=== PATIENT | male | born 1940 | race Caucasian/White ===

== ENCOUNTER 2017-07-24 08:05 | Inpatient (IN) | payer MEDICARE, OTHER, SELFPAY ==
[2017-07-24] VITALS (19 sets, daily range): BP systolic 96–197; BP diastolic 48–131; PULSE 63–94; RESP 12–24; TEMP 36.3–37; O2SAT 94–100; BMI 53.1; BMI 51.9
--- NOTE | 2017-07-24 08:13 | RAD_ITS ---
STUDY: X-RAY CHEST REASON FOR EXAM: Male, 76 years old. Headaches and confusion. TECHNIQUE: Single AP portable view of the chest. COMPARISON: Comparison is made with prior study dated February 07, 2017. FINDINGS: EKG electrodes are seen. The lungs are clear and expanded. There is no demonstrated pleural abnormality. There is moderate cardiac enlargement. Normal mediastinum and denys. Normal visualized pulmonary arteries. There is atherosclerotic tortuosity of the aortic arch and descending thoracic aorta. Normal visualized thoracic spine. Normal visualized ribs, clavicles, and shoulders. Hiatal hernia. RAD/Chest 1 View (Portable) IMPRESSION: Cardiomegaly. Electronically Signed: Seymour Shelley MD at 8:49 EST Tel [phone], Service support ,
--- NOTE | 2017-07-24 08:13 | CT_ITS ---
STUDY: CT BRAIN WITHOUT CONTRAST REASON FOR EXAM: Male, 76 years old. Altered mental status. RADIATION DOSAGE (If Supplied By Facility): CTDIvol = ( 44.99 ) mGy, DLP = ( 812.98 ) mGycm TECHNIQUE: Transaxial CT imaging of the brain was performed without administration of intravenous contrast material. Individualized dose optimization techniques were used for this CT. COMPARISON: Comparison is made with prior study dated June 13, 2016. FINDINGS: Normal soft tissue structures. Normal calvarium. There is moderate cerebral atrophy with widening of the extra-axial spaces and ventricular dilatation. There are areas of decreased attenuation within the white matter tracts of the supratentorial brain, consistent with microvascular disease changes. Normal basal ganglia and thalami. Normal brainstem. There is mild cerebellar atrophy. Once again, there is a cavum septum lucidum. This is a normal anatomical variant. There is no intracranial hemorrhage. There are no findings of an acute ischemic infarction. Atherosclerotic calcification of the vertebral arteries and cavernous portions of the internal carotid arteries bilaterally. Normal visualized paranasal sinuses. CT/Brain/Head without Contrast IMPRESSION: Chronic involutional changes of the brain. Electronically Signed: Seymour Shelley MD at 9:37 EST Tel [phone], Service support ,
--- NOTE | 2017-07-24 08:14 | EKG12_ITS ---
Test Reason : HTN Blood Pressure : / mmHG Vent. Rate : 061 BPM Atrial Rate : 067 BPM P-R Int : 258 ms QRS Dur : 158 ms QT Int : 460 ms P-R-T Axes : 086 -65 034 degrees QTc Int : 463 ms Sinus rhythm with 1st degree A-V block with Premature atrial complexes Right bundle branch block Left anterior fascicular block Bifascicular block Abnormal ECG Confirmed by SUMMER RAZO, KARISSA ([id number]), material expeditor RONEL NAVAS ([id number]) on 07/27/2017 3:30:11 PM Referred By: MADHAVI Confirmed By:KARISSA WHEELER MD
[2017-07-24 08:43] LABS: Bacteria 0 SEEN /hpf (None Seen); Mucous, Urine 0 SEEN /hpf (<or=2+)
[2017-07-24 08:45] LABS: Color, Urine Yellow (Yellow); Glucose, Dipstick Normal (Normal); Ketone-Dipstick Negative (Negative); Leukocyte Esterase-Dipstick 500 /ul (Negative); Nitrite-Dipstick Negative (Negative); Occult Blood-Urine 150 /ul (Negative); Protein-Dipstick 100 mg/dl (Negative); Specific Gravity, Urine 1.015 (1.002-1.030); Urine Bilirubin Dipstick Negative (Negative); Urine Clarity Sl. Cloudy (Clear); Urine Urobilinogen Normal (Normal)
[2017-07-24 08:55] LABS: White Blood Cells >100 SEEN /hpf (0-5)
[2017-07-24 08:56] LABS: Red Blood Cells-Urine 0-5 SEEN /hpf (0-5); Squamous Epithelial Cells - UA 0-5 SEEN /hpf (0-5)
--- NOTE | 2017-07-24 08:58 | ED.DCSUM_ITS ---
- ER Visit Summary Date of Service: 07/24/17 Chief Complaint: Altered level of consciousness History of Present Illness: The patient is a 76 M who has had altered LOC today. Family noted that he was not acting right. They called EMS and the blood glucose was 64. They state that when he goes below 70 he acts like this. He does have a history of multiple urinary tract infections in the past. Patient also complains of a headache. He has not had a fever. He is on Coumadin, but family thinks it is for a blood clot but they are not sure. Family does not know much about his history and the patient is talking very soft and does not contribute much of the history Physical Examination: Vital signs reviewed. Obese male in no distress. HEENT exam unremarkable. Heart is slightly irregular but then goes back to regular rhythm without murmurs. Lungs have diminished sounds bilaterally. Difficult to auscultate due to body habitus. Abdomen soft nontender. Extremities reveal 1+ symmetric edema. He is alert and oriented times self. His neurologic exam is otherwise unremarkable Test Results: EKG is normal sinus rhythm with a right bundle branch block and left anterior fascicular block. Chest x-ray reveals cardiomegaly. CT scan of the head reveals chronic changes. White blood cell count normal, INR 1.6, urinalysis reveals greater than 100 white blood cells. Emergency Department Course and Treatment: Patient is delirious and drowsy. However, he will wake up to answer questions. No signs of stroke or any lateralizing weakness. He was given some orange juice with some Tylenol. He was feeling nauseous I gave him Zofran. His urinalysis does reveal UTI. Patient is delirious and I feel he needs to be admitted to the hospital. I will start him on IV Zosyn based on his last urine culture with Pseudomonas and MRSA. Treatment Plan: Admission for antibiotics and monitoring Disposition: Admit Impression: UTI, delirium This note was generated with [employer] dictation software. It may contain incorrect words, spelling, and punctuation that were not noted in review of the chart prior to signing ED Disposition - Plan for ED Patient: Chief Complaint: Hypoglycemia Referrals: Wili Nelson DO [Primary Care Provider] -
[2017-07-24] MEDS: Acetaminophen 500 MG Tablet 1000 MG PO (09:04)
[2017-07-24 09:56] LABS: Absolute Lymphocyte Count 0.71 X10^3/ul (0.83-4.51); Absolute Neutrophil Count 7.9 X10^3/uL (2.0-7.7); Basophil# 0.03 X10^3/uL; Basophil% 0.3 % (0-1); Eosinophil# 0.03 X10^3/uL; Eosinophils% 0.3 % (0-5); Hematocrit 45.1 % (40-54); Hemoglobin 15.3 g/dl (13.0-16.5); Lymphocyte # 0.71 X10^3/ul (4.0); Lymphocyte % 7.4 % (19-41); Mean Corp Hgb Conc 33.9 g/gl (32-36); Mean Corpuscular Hgb 29.3 pg (27.0-32.0); Mean Corpuscular Volume 86.2 fL (80-94); Mean Platelet Vol. 9.5 fl (6.2-12.0); Monocyte# 0.85 X10^3/uL; Monocyte% 8.9 % (0-10); Neutrophil # 7.94 X10^3/uL (2.7-7.7); Platelet Count 242 K/mm3 (150-450); RBC Distribution Width CV 13.7 % (11.6-14.6); RBC Distribution Width SD 42.1 fl (35.1-43.9); Red Blood Count 5.23 M/mm3 (4.6-6.2); White Blood Count 9.6 K/mm3 (4.4-11.0)
[2017-07-24 10:01] LABS: International Normalized Ratio 1.6; Prothrombin Time (Protime)PT. 18.4 SECONDS (11.7-14.9)
[2017-07-24 10:03] LABS: POSITIVE COUNT NO; POSITIVE DIFFERENTIAL NO; POSITIVE MORPHOLOGY NO
[2017-07-24] MEDS: Ondansetron 4 MG/2 ML Vial IV (10:10)
[2017-07-24 10:13] LABS: ALB/GLOB Ratio 0.6 RATIO (0.9-2.4); AST(SGOT) 18 U/L (15-37); Alanine Aminotransfer ALT/SGPT 26 U/L (16-61); Albumin, Serum 3.3 g/dL (3.2-5.0); Alkaline Phosphatase 100 U/L (45-117); Anion Gap 7 (5-15); BUN 25 mg/dL (7-18); BUN/Creat Ratio 16.2 RATIO (10-20); Chloride 105 mmol/L (98-107); Creatinine, Serum 1.54 mg/dL (0.70-1.30); EST Glomerular Filtration Rate 47 mL/min (>60); Est Glom Filt Rate - Afr Amer 57 mL/min (>60); Estimated Creatinine Clearance 44.79 ml/min; Globulin 5.2 g/dL (2.2-4.2); Glucose 74 mg/dL (70-110); Potassium 3.7 mmol/L (3.5-5.1); Protein, Total 8.5 g/dL (6.4-8.2); Sodium Level 141 mmol/L (136-145)
--- NOTE | 2017-07-24 11:22 | PCM.HP.STD ---
Problem List (1) History of kidney stones Status: Chronic (2) COPD (chronic obstructive pulmonary disease) Status: Chronic (3) Type II diabetes mellitus, uncontrolled Status: Chronic Qualifiers: Diabetes mellitus complication status: with hypoglycemia Diabetes mellitus complication detail: without coma Diabetes mellitus senior living insulin use: with senior living use Qualified Code(s): E11.649 - Type 2 diabetes mellitus with hypoglycemia without coma; Z79.4 - manager terminal (current) use of insulin (4) History of depression Status: Chronic (5) History of other venous thrombosis and embolism Status: Chronic (6) HLD (hyperlipidemia) Status: Chronic (7) HTN (hypertension) Status: Chronic (8) Morbid obesity Status: Chronic (9) NILO (obstructive sleep apnea) Status: Chronic (10) Chronic renal failure, stage 3 (moderate) Status: Chronic (11) Bifascicular bundle branch block Status: Chronic (12) Colon polyps Status: Chronic (13) Family history of colon cancer Status: Chronic (14) Abnormal electrocardiogram Status: Chronic (15) UTI (urinary tract infection) Status: Acute (16) Encephalopathy acute Status: Acute (17) Hypoglycemia Status: Acute History of Present Illness Date of Admission: 07/24/17 Chief Complaint: Altered mental status The patient is a 76 year old M multiple comorbidities including diabetes mellitus type 2, recurrent UTIs who was brought to the emergency department after patient was found by the with significant lethargy. Had started a day prior to coming in when felt patient was having intermittent episodes of confusion. The had a thump in patient's bedroom on the morning of his presentation. Upon arrival found patient to be significantly lethargic the EMS squad was called. EMS upon arrival found patient to be hypoglycemic with blood glucose in the 60s resuscitation was started in the field and patient transferred to the ED workup in the ED was consistent with acute cystitis. Patient was Zosyn and admitted to a regular nursing floor for further management Past Medical History Past Medical History (Chronic Problems): Chronic Problems History of kidney stones (Chronic) COPD (chronic obstructive pulmonary disease) (Chronic) Type II diabetes mellitus, uncontrolled (Chronic) History of depression (Chronic) History of other venous thrombosis and embolism (Chronic) HLD (hyperlipidemia) (Chronic) HTN (hypertension) (Chronic) Morbid obesity (Chronic) NILO (obstructive sleep apnea) (Chronic) Chronic renal failure, stage 3 (moderate) (Chronic) Bifascicular bundle branch block (Chronic) Colon polyps (Chronic) Family history of colon cancer (Chronic) Abnormal electrocardiogram (Chronic) Allergies MARGIE Inhibitors Allergy (Unknown, Verified 02/07/17 23:24) Unknown cefepime Allergy (Verified 02/07/17 23:24) Other WEAKNESS & FALLING ipodate [Ipodate] Allergy (Verified 02/07/17 23:24) Shortness of breath levofloxacin [Levofloxacin] Allergy (Verified 02/07/17 23:24) Anaphylaxis lisinopril Allergy (Verified 02/07/17 23:24) Shortness of breath Quinolones Allergy (Verified 02/07/17 23:24) Anaphylaxis Home Medications: Ambulatory Orders Medication Instructions Recorded Atorvastatin Calcium [Lipitor] 40 mg PO QHS 05/29/15 Citalopram [Celexa] 40 mg PO DAILY 05/29/15 Docusate Sodium [Colace] 200 mg PO QODAY PRN 05/29/15 Fluticasone 0.05% [Flonase Nasal 1 spray NASAL BID PRN 05/29/15 [place]] Tamsulosin HCl [Flomax] 0.4 mg PO DAILY 07/08/16 Metoprolol Succinate 100 mg PO DAILY 02/08/17 Insulin Detemir [Levemir FlexPen] 30 units SC BREAKFAST 07/24/17 Insulin U-500 [Humulin R U-500 100 unit SC BREAKFAST 07/24/17 ([facility])] Insulin U-500 [Humulin R U-500 100 unit SC LUNCH 07/24/17 ([facility])] Insulin U-500 [Humulin R U-500 150 unit SC DINNER 07/24/17 ([facility])] Losartan Potassium [Cozaar] 100 mg PO DAILY 07/24/17 Warfarin Sodium [Coumadin] 10 mg PO DAILY 07/24/17 Warfarin [Coumadin ([facility])] 5 mg PO DAILY 07/24/17 Surgical History: - - Circumcision, excision of kidney stone Psychiatric History: Depression Smoking Status: Never smoker - *Family History Maternal History Items: Cancer - Patient's mother of cancer but he is not sure what kind of cancer. Paternal History Items: Cancer - Father of colon cancer Offspring History Items: - - He has a son who is morbidly obese and suffers from breathing problems and heart problems. Review of Systems Unable to obtain accurate/complete ROS d/t: Being lethargic VTE Information - Inpt Only VTE Present on Admission: No VTE Mechan Device Prophylaxis: Knee High MARC Hose VTE Pharm Prophylaxis ordered?: Yes Patient Problems: Active and Suspected Problems UTI (urinary tract infection) (Acute) Encephalopathy acute (Acute) Hypoglycemia (Acute) Objective: GENERAL: Lethargic HEENT: Clear conjunctiva, NECK; supple, normal thyroid, CHEST: Diminished to auscultation bilaterally, HEART: Regular S1 S2, no audible murmurs ABDOMEN: soft, non-tender, normoactive bowel sounds, RECTAL: deferred EXTREMITIES: No edema, no clubbing, no cyanosis. 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 SKIN: No RASH - Physical Exam Vital Signs Temp Pulse Resp BP Pulse Ox 97.5 F L 75 17 197/89 H 99 07/24/17 08:06 07/24/17 10:35 07/24/17 10:35 07/24/17 10:35 07/24/17 10:35 Assessment/Plan Active and Suspected Problems UTI (urinary tract infection) (Acute) Encephalopathy acute (Acute) Hypoglycemia (Acute) 76-year-old gentleman with multiple comorbidities with recurrent UTI presenting with altered mental status. Patient was found to be hypoglycemic on admission and also had a UTI 1. Acute infectious encephalopathy secondary to UTI previous cultures have grown Pseudomonas patient was placed on Zosyn repeat culture sent consult placed to infectious disease 2. 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 Patient is on long-acting insulin as well as scheduled pre-meal short acting insulin also placed on Accu-Cheks before meals and at bedtime with sliding scale insulin 2. Diabetic nephropathy with chronic kidney disease stage III patient kidney function at baseline 4. Hypertension-blood pressure controlled, home medications continued with dose adjustment as needed 5. Obstructive sleep apnea 7. Chronic hypoxic respiratory failure multifactorial (COPD, obesity hypoventilation syndrome and NILO 7. COPD currently stable 8. History of PE patient was previously on Coumadin 9. History of kidney stones 10. Depression 11. Morbid obesity with BMI of 53.2 12. DVT prophylaxis Lovenox 40 mg SC every 12 (BMI greater than 40) Code Visit Inpatient E&M: 32757 In Hosp L3
--- NOTE | 2017-07-24 11:33 | HP.PCM_ITS ---
Problem List (1) History of kidney stones Status: Chronic (2) COPD (chronic obstructive pulmonary disease) Status: Chronic (3) Type II diabetes mellitus, uncontrolled Status: Chronic Qualifiers: Diabetes mellitus complication status: with hypoglycemia Diabetes mellitus complication detail: without coma Diabetes mellitus shelter insulin use: with shelter use Qualified Code(s): E11.649 - Type 2 diabetes mellitus with hypoglycemia without coma; Z79.4 - intermodal customer service (current) use of insulin (4) History of depression Status: Chronic (5) History of other venous thrombosis and embolism Status: Chronic (6) HLD (hyperlipidemia) Status: Chronic (7) HTN (hypertension) Status: Chronic (8) Morbid obesity Status: Chronic (9) NILO (obstructive sleep apnea) Status: Chronic (10) Chronic renal failure, stage 3 (moderate) Status: Chronic (11) Bifascicular bundle branch block Status: Chronic (12) Colon polyps Status: Chronic (13) Family history of colon cancer Status: Chronic (14) Abnormal electrocardiogram Status: Chronic (15) UTI (urinary tract infection) Status: Acute (16) Encephalopathy acute Status: Acute (17) Hypoglycemia Status: Acute History of Present Illness Date of Admission: 07/24/17 Chief Complaint: Altered mental status The patient is a 76 year old M multiple comorbidities including diabetes mellitus type 2, recurrent UTIs who was brought to the emergency department after patient was found by the with significant lethargy. Had started a day prior to coming in when felt patient was having intermittent episodes of confusion. The had a thump in patient's bedroom on the morning of his presentation. Upon arrival found patient to be significantly lethargic the EMS squad was called. EMS upon arrival found patient to be hypoglycemic with blood glucose in the 60s resuscitation was started in the field and patient transferred to the ED workup in the ED was consistent with acute cystitis. Patient was Zosyn and admitted to a regular nursing floor for further management Past Medical History Past Medical History (Chronic Problems): Chronic Problems History of kidney stones (Chronic) COPD (chronic obstructive pulmonary disease) (Chronic) Type II diabetes mellitus, uncontrolled (Chronic) History of depression (Chronic) History of other venous thrombosis and embolism (Chronic) HLD (hyperlipidemia) (Chronic) HTN (hypertension) (Chronic) Morbid obesity (Chronic) NILO (obstructive sleep apnea) (Chronic) Chronic renal failure, stage 3 (moderate) (Chronic) Bifascicular bundle branch block (Chronic) Colon polyps (Chronic) Family history of colon cancer (Chronic) Abnormal electrocardiogram (Chronic) Allergies MARGIE Inhibitors Allergy (Unknown, Verified 02/07/17 23:24) Unknown cefepime Allergy (Verified 02/07/17 23:24) Other WEAKNESS & FALLING ipodate [Ipodate] Allergy (Verified 02/07/17 23:24) Shortness of breath levofloxacin [Levofloxacin] Allergy (Verified 02/07/17 23:24) Anaphylaxis lisinopril Allergy (Verified 02/07/17 23:24) Shortness of breath Quinolones Allergy (Verified 02/07/17 23:24) Anaphylaxis Home Medications: Ambulatory Orders Medication Instructions Recorded Atorvastatin Calcium [Lipitor] 40 mg PO QHS 05/29/15 Citalopram [Celexa] 40 mg PO DAILY 05/29/15 Docusate Sodium [Colace] 200 mg PO QODAY PRN 05/29/15 Fluticasone 0.05% [Flonase Nasal 1 spray NASAL BID PRN 05/29/15 [place]] Tamsulosin HCl [Flomax] 0.4 mg PO DAILY 07/08/16 Metoprolol Succinate 100 mg PO DAILY 02/08/17 Insulin Detemir [Levemir FlexPen] 30 units SC BREAKFAST 07/24/17 Insulin U-500 [Humulin R U-500 100 unit SC BREAKFAST 07/24/17 ([facility])] Insulin U-500 [Humulin R U-500 100 unit SC LUNCH 07/24/17 ([facility])] Insulin U-500 [Humulin R U-500 150 unit SC DINNER 07/24/17 ([facility])] Losartan Potassium [Cozaar] 100 mg PO DAILY 07/24/17 Warfarin Sodium [Coumadin] 10 mg PO DAILY 07/24/17 Warfarin [Coumadin ([facility])] 5 mg PO DAILY 07/24/17 Surgical History: - - Circumcision, excision of kidney stone Psychiatric History: Depression Smoking Status: Never smoker - *Family History Maternal History Items: Cancer - Patient's mother of cancer but he is not sure what kind of cancer. Paternal History Items: Cancer - Father of colon cancer Offspring History Items: - - He has a son who is morbidly obese and suffers from breathing problems and heart problems. Review of Systems Unable to obtain accurate/complete ROS d/t: Being lethargic VTE Information - Inpt Only VTE Present on Admission: No VTE Mechan Device Prophylaxis: Knee High MARC Hose VTE Pharm Prophylaxis ordered?: Yes Patient Problems: Active and Suspected Problems UTI (urinary tract infection) (Acute) Encephalopathy acute (Acute) Hypoglycemia (Acute) Objective: GENERAL: Lethargic HEENT: Clear conjunctiva, NECK; supple, normal thyroid, CHEST: Diminished to auscultation bilaterally, HEART: Regular S1 S2, no audible murmurs ABDOMEN: soft, non-tender, normoactive bowel sounds, RECTAL: deferred EXTREMITIES: No edema, no clubbing, no cyanosis. 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 SKIN: No RASH - Physical Exam Vital Signs Temp Pulse Resp BP Pulse Ox 97.5 F L 75 17 197/89 H 99 07/24/17 08:06 07/24/17 10:35 07/24/17 10:35 07/24/17 10:35 07/24/17 10:35 Assessment/Plan Active and Suspected Problems UTI (urinary tract infection) (Acute) Encephalopathy acute (Acute) Hypoglycemia (Acute) 76-year-old gentleman with multiple comorbidities with recurrent UTI presenting with altered mental status. Patient was found to be hypoglycemic on admission and also had a UTI 1. Acute infectious encephalopathy secondary to UTI previous cultures have grown Pseudomonas patient was placed on Zosyn repeat culture sent consult placed to infectious disease 2. 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 Patient is on long-acting insulin as well as scheduled pre-meal short acting insulin also placed on Accu-Cheks before meals and at bedtime with sliding scale insulin 2. Diabetic nephropathy with chronic kidney disease stage III patient kidney function at baseline 4. Hypertension-blood pressure controlled, home medications continued with dose adjustment as needed 5. Obstructive sleep apnea 7. Chronic hypoxic respiratory failure multifactorial (COPD, obesity hypoventilation syndrome and NILO 7. COPD currently stable 8. History of PE patient was previously on Coumadin 9. History of kidney stones 10. Depression 11. Morbid obesity with BMI of 53.2 12. DVT prophylaxis Lovenox 40 mg SC every 12 (BMI greater than 40) Code Visit Inpatient E&M: 80076 In Hosp L3
[2017-07-24] MEDS: 0.9% Normal Saline 1,000 ML 75 ML IV (12:49)
[2017-07-24 13:06] LABS: Bedside Glucose 90 mg/dL (70-110)
--- NOTE | 2017-07-24 15:30 | NURSING ---
primary RN and supervisor blood notified of orders for transfer to icu. awaiting bed.
--- NOTE | 2017-07-24 16:35 | PCM.HP.ID ---
Problem List (1) UTI (urinary tract infection) Status: Acute Reason for Consult: uti Consulted by: Dr. Clemens History of Present Illness: The patient is a 76 year old M who presented with one day history of intermittent confusion, and fall with unresponsiveness today. Pt unable to provide history. Has h/o recurrent uti, including pseudomonas. UA in ED showed heavy pyuria, cxs sent, started on zosyn, admitted to the floor. No fever here. ROS unobtainable due to mental status. - Medical History Past Medical History (Chronic Problems): Chronic Problems History of kidney stones (Chronic) COPD (chronic obstructive pulmonary disease) (Chronic) Type II diabetes mellitus, uncontrolled (Chronic) History of depression (Chronic) History of other venous thrombosis and embolism (Chronic) HLD (hyperlipidemia) (Chronic) HTN (hypertension) (Chronic) Morbid obesity (Chronic) NILO (obstructive sleep apnea) (Chronic) Chronic renal failure, stage 3 (moderate) (Chronic) Bifascicular bundle branch block (Chronic) Colon polyps (Chronic) Family history of colon cancer (Chronic) Abnormal electrocardiogram (Chronic) Allergies/Adverse Reactions: Allergies MARGIE Inhibitors Allergy (Unknown, Verified 02/07/17 23:24) Unknown cefepime Allergy (Verified 02/07/17 23:24) Other WEAKNESS & FALLING ipodate [Ipodate] Allergy (Verified 02/07/17 23:24) Shortness of breath levofloxacin [Levofloxacin] Allergy (Verified 02/07/17 23:24) Anaphylaxis lisinopril Allergy (Verified 02/07/17 23:24) Shortness of breath ofloxacin Allergy (Verified 07/24/17 12:12) Unknown Quinolones Allergy (Verified 02/07/17 23:24) Anaphylaxis Home Medications: Ambulatory Orders Medication Instructions Recorded Atorvastatin Calcium [Lipitor] 40 mg PO QHS 05/29/15 Citalopram [Celexa] 40 mg PO DAILY 05/29/15 Docusate Sodium [Colace] 200 mg PO QODAY PRN 05/29/15 Fluticasone 0.05% [Flonase Nasal 1 spray NASAL BID PRN 05/29/15 [place]] Tamsulosin HCl [Flomax] 0.4 mg PO DAILY 07/08/16 Metoprolol Succinate 100 mg PO DAILY 02/08/17 Insulin Detemir [Levemir FlexPen] 30 units SC BREAKFAST 07/24/17 Insulin U-500 [Humulin R U-500 100 unit SC BREAKFAST 07/24/17 ([facility])] Insulin U-500 [Humulin R U-500 100 unit SC LUNCH 07/24/17 ([facility])] Insulin U-500 [Humulin R U-500 150 unit SC DINNER 07/24/17 ([facility])] Losartan Potassium [Cozaar] 100 mg PO DAILY 07/24/17 Warfarin Sodium [Coumadin] 10 mg PO DAILY 07/24/17 Warfarin [Coumadin ([facility])] 5 mg PO DAILY 07/24/17 Vital Signs Temp Pulse Resp BP Pulse Ox 97.4 F L 64 22 H 158/76 H 95 07/24/17 15:56 07/24/17 15:56 07/24/17 15:56 07/24/17 15:56 07/24/17 15:56 Oxygen Flow Rate 1 Oxygen Delivery Method Room Air Weight: 173.7 kg Body Mass Index (BMI) 51.9 Microbiology Past 72 Hours 07/24/17 12:45 Respiratory Panel (PCR) - Final Mucosa - Nasopharyngeal Laboratory Tests Past 24 Hrs 07/24/17 16:04 Lactic Acid Pending - Other Studies Radiology: [] reviewed Other Studies: [] Route of nutrition/ use of supplements: [] Nutritional Intake: [] IV Site: [] Lane Catheter: [] - Physical Exam General: Lethargic - opens eyes briefly to physical stim HEENT: Atraumatic, PERRLA Neck: Supple, No Nodes Lungs: Clear to auscultation, Normal air movement Cardiovascular: Regular rate, Regular Rhythm Abdomen: Bowel Sounds Present, Soft, Non Tender, Non-Distended, Obese Extremities: Edema - mild BLE Skin: No rashes IV Site: Peripheral, without redness Musculoskeletal: No Tenderness to Palpation of Joints or Extremities - Assessment/Plan Antibiotics: [] Assessment/Plan: [] Active and Suspected Problems UTI (urinary tract infection) (Acute) Encephalopathy acute (Acute) Hypoglycemia (Acute) Heavy pyuria with h.o UTI in past. Agree with zosyn to cover past growth of pseudomonas. Also with yeast and MRSA from urine in the past. If he does not show improvement or spikes fever, would add vanc. Thank you, will follow.
--- NOTE | 2017-07-24 16:37 | NURSING ---
notifed that pt moved to icu
--- NOTE | 2017-07-24 16:40 | CON.PCM_ITS ---
Problem List (1) UTI (urinary tract infection) Status: Acute Reason for Consult: uti Consulted by: Dr. Clemens History of Present Illness: The patient is a 76 year old M who presented with one day history of intermittent confusion, and fall with unresponsiveness today. Pt unable to provide history. Has h/o recurrent uti, including pseudomonas. UA in ED showed heavy pyuria, cxs sent, started on zosyn, admitted to the floor. No fever here. ROS unobtainable due to mental status. - Medical History Past Medical History (Chronic Problems): Chronic Problems History of kidney stones (Chronic) COPD (chronic obstructive pulmonary disease) (Chronic) Type II diabetes mellitus, uncontrolled (Chronic) History of depression (Chronic) History of other venous thrombosis and embolism (Chronic) HLD (hyperlipidemia) (Chronic) HTN (hypertension) (Chronic) Morbid obesity (Chronic) NILO (obstructive sleep apnea) (Chronic) Chronic renal failure, stage 3 (moderate) (Chronic) Bifascicular bundle branch block (Chronic) Colon polyps (Chronic) Family history of colon cancer (Chronic) Abnormal electrocardiogram (Chronic) Allergies/Adverse Reactions: Allergies MARGIE Inhibitors Allergy (Unknown, Verified 02/07/17 23:24) Unknown cefepime Allergy (Verified 02/07/17 23:24) Other WEAKNESS & FALLING ipodate [Ipodate] Allergy (Verified 02/07/17 23:24) Shortness of breath levofloxacin [Levofloxacin] Allergy (Verified 02/07/17 23:24) Anaphylaxis lisinopril Allergy (Verified 02/07/17 23:24) Shortness of breath ofloxacin Allergy (Verified 07/24/17 12:12) Unknown Quinolones Allergy (Verified 02/07/17 23:24) Anaphylaxis Home Medications: Ambulatory Orders Medication Instructions Recorded Atorvastatin Calcium [Lipitor] 40 mg PO QHS 05/29/15 Citalopram [Celexa] 40 mg PO DAILY 05/29/15 Docusate Sodium [Colace] 200 mg PO QODAY PRN 05/29/15 Fluticasone 0.05% [Flonase Nasal 1 spray NASAL BID PRN 05/29/15 [place]] Tamsulosin HCl [Flomax] 0.4 mg PO DAILY 07/08/16 Metoprolol Succinate 100 mg PO DAILY 02/08/17 Insulin Detemir [Levemir FlexPen] 30 units SC BREAKFAST 07/24/17 Insulin U-500 [Humulin R U-500 100 unit SC BREAKFAST 07/24/17 ([facility])] Insulin U-500 [Humulin R U-500 100 unit SC LUNCH 07/24/17 ([facility])] Insulin U-500 [Humulin R U-500 150 unit SC DINNER 07/24/17 ([facility])] Losartan Potassium [Cozaar] 100 mg PO DAILY 07/24/17 Warfarin Sodium [Coumadin] 10 mg PO DAILY 07/24/17 Warfarin [Coumadin ([facility])] 5 mg PO DAILY 07/24/17 Vital Signs Temp Pulse Resp BP Pulse Ox 97.4 F L 64 22 H 158/76 H 95 07/24/17 15:56 07/24/17 15:56 07/24/17 15:56 07/24/17 15:56 07/24/17 15:56 Oxygen Flow Rate 1 Oxygen Delivery Method Room Air Weight: 173.7 kg Body Mass Index (BMI) 51.9 Microbiology Past 72 Hours 07/24/17 12:45 Respiratory Panel (PCR) - Final Mucosa - Nasopharyngeal Laboratory Tests Past 24 Hrs 07/24/17 16:04 Lactic Acid Pending - Other Studies Radiology: [] reviewed Other Studies: [] Route of nutrition/ use of supplements: [] Nutritional Intake: [] IV Site: [] Lane Catheter: [] - Physical Exam General: Lethargic - opens eyes briefly to physical stim HEENT: Atraumatic, PERRLA Neck: Supple, No Nodes Lungs: Clear to auscultation, Normal air movement Cardiovascular: Regular rate, Regular Rhythm Abdomen: Bowel Sounds Present, Soft, Non Tender, Non-Distended, Obese Extremities: Edema - mild BLE Skin: No rashes IV Site: Peripheral, without redness Musculoskeletal: No Tenderness to Palpation of Joints or Extremities - Assessment/Plan Antibiotics: [] Assessment/Plan: [] Active and Suspected Problems UTI (urinary tract infection) (Acute) Encephalopathy acute (Acute) Hypoglycemia (Acute) Heavy pyuria with h.o UTI in past. Agree with zosyn to cover past growth of pseudomonas. Also with yeast and MRSA from urine in the past. If he does not show improvement or spikes fever, would add vanc. Thank you, will follow.
[2017-07-24 16:44] LABS: Lactic Acid 1.3 mmol/L (0.4-2.0)
[2017-07-24 16:56] LABS: Allen Test POS; Base Excess 4 mmol/L (-2 to +2); Bicarbonate 29.3 mmol/L (22-26); Blood Gas Specimen Type ART; EPAP 19; FI02 25; IPAP 23; PO2 85 mmHG (75-100); RR 14; SITE R Brachial; SO2 96 % (95-99); Time Given 1655; Total Carbon Dioxide 31 mmol/L; pCO2 50.4 mmHg (35-45); pH 7.37 (7.35-7.45)
[2017-07-24 18:39] LABS: M R Staph aureus DNA By PCR Negative (Negative); Probe Check PASS; Specimen Processing Control PASS
[2017-07-24 19:06] LABS: Bedside Glucose 144 mg/dL (70-110)
[2017-07-24] MEDS: Piperacil/Tazobactam 3.375 GM/50 ML ML IV (21:08)
[2017-07-24] MEDS: Enoxaparin 40 MG/0.4 ML Syringe SC (21:10)
[2017-07-24 21:16] LABS: Bedside Glucose 169 mg/dL (70-110)
[2017-07-25] VITALS (30 sets, daily range): BP systolic 94–164; BP diastolic 50–104; PULSE 52–79; RESP 12–25; TEMP 36.4–37.2; O2SAT 91–100
[2017-07-25 01:41] LABS: Bedside Glucose 150 mg/dL (70-110)
[2017-07-25] MEDS: 0.9% Normal Saline 1,000 ML 75 ML IV (01:41)
[2017-07-25 04:39] LABS: Hematocrit 42.4 % (40-54); Hemoglobin 13.6 g/dl (13.0-16.5); Mean Corp Hgb Conc 32.1 g/gl (32-36); Mean Corpuscular Hgb 28.4 pg (27.0-32.0); Mean Corpuscular Volume 88.5 fL (80-94); Mean Platelet Vol. 9.3 fl (6.2-12.0); Platelet Count 210 K/mm3 (150-450); RBC Distribution Width CV 14.1 % (11.6-14.6); RBC Distribution Width SD 45.2 fl (35.1-43.9); Red Blood Count 4.79 M/mm3 (4.6-6.2); White Blood Count 7.5 K/mm3 (4.4-11.0)
[2017-07-25 04:43] LABS: Scan Indicated on CBC? Y/N NO
[2017-07-25 05:02] LABS: Anion Gap 9 (5-15); BUN 25 mg/dL (7-18); BUN/Creat Ratio 15.2 RATIO (10-20); Calcium,Total 8.1 mg/dL (8.5-10.1); Chloride 103 mmol/L (98-107); Creatinine, Serum 1.64 mg/dL (0.70-1.30); EST Glomerular Filtration Rate 44 mL/min (>60); Est Glom Filt Rate - Afr Amer 53 mL/min (>60); Estimated Creatinine Clearance 42.06 ml/min; Glucose 218 mg/dL (74-106); Magnesium 2.2 mg/dL (1.6-2.6); Potassium 4.1 mmol/L (3.5-5.1); Sodium Level 140 mmol/L (136-145)
--- NOTE | 2017-07-25 05:05 | PCM.CON.CC ---
Reason for Consult Date of Consultation: 07/25/17 Reason for Consultation: ICU management History of Present Illness: The patient is a 76-year-old male, with a history as outlined below, who presented to the emergency department on July 24 in an encephalopathic state. Per EMS documentation, the patient was reportedly hypoglycemic with a serum blood glucose of 64. The patient reportedly has a history of recurrent urinary tract infections. Only limited history could be obtained from the patient, as he remains quite lethargic. There are no family members available at the bedside. Prior urine cultures have grown out both MRSA and Pseudomonas in the past. Surface echocardiogram from January 2017 revealed mild concentric LVH with an ejection fraction of 60%. Pulmonary artery systolic pressure was estimated to be 54 mmHg. On presentation to the emergency department, the patient was noted to be afebrile and hemodynamically stable. He was initially saturating 96% on room air. Laboratory evaluation revealed no evidence of a leukocytosis. INR was noted to be 1.6. Chemistry profile was notable for chronic kidney disease with a creatinine of 1.54. Troponin was negative. Urinalysis was concerning for that of an infection. Head CT revealed chronic involutional changes. Lungs were grossly clear on plain film chest x-ray. The patient was subsequently started on antibiotics and was seen in consultation by infectious diseases. The patient was admitted to the general medical floor for treatment. However, he reportedly became tachypneic on the afternoon of July 24, which prompted his transfer to the intensive care unit. Upon review of the vitals that are documented, the patient's respiratory rate was only in the low 20s on 2 separate occasions. There is no additional documentation by the nursing staff. Arterial blood gas revealed a compensated respiratory acidosis. The patient was placed on BiPAP. Past Medical History Past Medical History (Chronic Problems): Chronic Problems History of kidney stones (Chronic) COPD (chronic obstructive pulmonary disease) (Chronic) Type II diabetes mellitus, uncontrolled (Chronic) History of depression (Chronic) History of other venous thrombosis and embolism (Chronic) HLD (hyperlipidemia) (Chronic) HTN (hypertension) (Chronic) Morbid obesity (Chronic) NILO (obstructive sleep apnea) (Chronic) Chronic renal failure, stage 3 (moderate) (Chronic) Bifascicular bundle branch block (Chronic) Colon polyps (Chronic) Family history of colon cancer (Chronic) Abnormal electrocardiogram (Chronic) Allergies MARGIE Inhibitors Allergy (Unknown, Verified 02/07/17 23:24) Unknown cefepime Allergy (Verified 02/07/17 23:24) Other WEAKNESS & FALLING ipodate [Ipodate] Allergy (Verified 02/07/17 23:24) Shortness of breath levofloxacin [Levofloxacin] Allergy (Verified 02/07/17 23:24) Anaphylaxis lisinopril Allergy (Verified 02/07/17 23:24) Shortness of breath ofloxacin Allergy (Verified 07/24/17 12:12) Unknown Quinolones Allergy (Verified 02/07/17 23:24) Anaphylaxis Home Medications: Ambulatory Orders Medication Instructions Recorded Atorvastatin Calcium [Lipitor] 40 mg PO QHS 05/29/15 Citalopram [Celexa] 40 mg PO DAILY 05/29/15 Docusate Sodium [Colace] 200 mg PO QODAY PRN 05/29/15 Fluticasone 0.05% [Flonase Nasal 1 spray NASAL BID PRN 05/29/15 [place]] Tamsulosin HCl [Flomax] 0.4 mg PO DAILY 07/08/16 Metoprolol Succinate 100 mg PO DAILY 02/08/17 Insulin Detemir [Levemir FlexPen] 30 units SC BREAKFAST 07/24/17 Insulin U-500 [Humulin R U-500 100 unit SC BREAKFAST 07/24/17 ([facility])] Insulin U-500 [Humulin R U-500 100 unit SC LUNCH 07/24/17 ([facility])] Insulin U-500 [Humulin R U-500 150 unit SC DINNER 07/24/17 ([facility])] Losartan Potassium [Cozaar] 100 mg PO DAILY 07/24/17 Warfarin Sodium [Coumadin] 10 mg PO DAILY 07/24/17 Warfarin [Coumadin ([facility])] 5 mg PO DAILY 07/24/17 Surgical History: - - Circumcision, excision of kidney stone Psychiatric History: Depression Smoking Status: Never smoker - *Family History Maternal History Items: Cancer - Patient's mother of cancer but he is not sure what kind of cancer. Paternal History Items: Cancer - Father of colon cancer Offspring History Items: - - He has a son who is morbidly obese and suffers from breathing problems and heart problems. Review of Systems Unable to obtain accurate/complete ROS d/t: Due to patient lethargy Patient Problems: Active and Suspected Problems UTI (urinary tract infection) (Acute) Encephalopathy acute (Acute) Hypoglycemia (Acute) Objective: The patient's most recent lab work, culture data and imaging studies have all been personally reviewed. - Physical Exam General: - - Super morbidly obese. Resting supine in bed with BiPAP in place. Currently being maintained on 23/19 cm of water with an FiO2 of 25% HEENT: Atraumatic, PERRLA, Normocephalic Oral: No Gingival or Mucosal Lesions/ Ulcerations, Dry Mucosa Neck: Supple, No Nodes, Trachea Midline, - - Exceedingly large neck circumference with redundant soft tissue Lungs: No rhonchi, No wheeze, No rales, Diminished, - - Poor inspiratory effort Cardiovascular: Regular rate, Regular Rhythm, Normal S1, Normal S2, No murmurs, No rub noted, No Gallop Abdomen: Bowel Sounds Present, Soft, Non Tender, Obese Extremities: No clubbing, No cyanosis, Edema Skin: - - Lower extremity venous stasis dermatitis Musculoskeletal: No Muscle Wasting Lymphatic: No Cervical, Supraclavicular, or Inguinal Adenopathy Neurological: - - Lethargic but will arouse to verbal stimulation and attempt to answer questions. Vital Signs Temp Pulse Resp BP Pulse Ox 97.9 F 63 18 132/68 H 100 07/25/17 04:20 07/25/17 04:20 07/25/17 04:20 07/25/17 04:20 07/25/17 04:20 Oxygen Flow Rate 25 Oxygen Delivery Method Bi-pap Weight: 382 lb 15.087 oz Body Mass Index (BMI) 51.9 Intake and Output for Last 24 Hours 07/23/17 07/24/17 07/25/17 23:59 23:59 23:59 Intake Total 523 / 523 Output Total 900 / 900 Balance -377 / -377 Microbiology Past 72 Hours 07/24/17 12:45 Respiratory Panel (PCR) - Final Mucosa - Nasopharyngeal Laboratory Tests Past 24 Hrs 07/24/17 07/24/17 07/24/17 16:04 16:50 16:52 WBC RBC Hgb Hct MCV MCH MCHC RDW RDW Differential Plt Count MPV Specimen Type ART Sample Site R Brachial pH 7.37 Bicarbonate Actual 29.3 H POC Total CO2 31 Base Excess 4 H O2 Saturation 96 O2 % 25 ABG pCO2 50.4 H ABG pO2 85 Randy Test POS Respiration Rate 14 O2 Delivery Device Bi / C PAP EPAP 19 IPAP 23 Blood Gas Notified Whom [facility] Blood Gas Notified Time 1655 Sodium Potassium Chloride Carbon Dioxide Anion Gap BUN Creatinine Estim Creat Clear Calc Est GFR (MDRD) Af Amer Est GFR (MDRD) Non-Af BUN/Creatinine Ratio Glucose Lactic Acid 1.3 Calcium Magnesium MRSA (PCR) Negative 07/25/17 07/25/17 04:20 04:20 WBC 7.5 RBC 4.79 Hgb 13.6 Hct 42.4 MCV 88.5 MCH 28.4 MCHC 32.1 RDW 14.1 RDW Differential 45.2 H Plt Count 210 MPV 9.3 Specimen Type Sample Site pH Bicarbonate Actual POC Total CO2 Base Excess O2 Saturation O2 % ABG pCO2 ABG pO2 Randy Test Respiration Rate O2 Delivery Device EPAP IPAP Blood Gas Notified Whom Blood Gas Notified Time Sodium 140 Potassium 4.1 Chloride 103 Carbon Dioxide 28.0 Anion Gap 9 BUN 25 H Creatinine 1.64 H Estim Creat Clear Calc 42.06 Est GFR (MDRD) Af Amer 53 L Est GFR (MDRD) Non-Af 44 L BUN/Creatinine Ratio 15.2 Glucose 218 H Lactic Acid Calcium 8.1 L Magnesium 2.2 MRSA (PCR) POC Glucose 07/25/17 07/24/17 07/24/17 01:38 21:13 19:02 POC Glucose 150 H 169 H 144 H 07/24/17 11:43 POC Glucose 90 Clinical Impression(s) from Imaging Studies Brain CT 07/24/17 08:13 IMPRESSION: Chronic involutional changes of the brain. Electronically Signed: Seymour Shelley MD at 9:37 EST Tel [phone], Service support , Chest X-Ray 07/24/17 08:13 IMPRESSION: Cardiomegaly. Electronically Signed: Seymour Shelley MD at 8:49 EST Tel [phone], Service support , Assessment/Plan Active and Suspected Problems UTI (urinary tract infection) (Acute) Encephalopathy acute (Acute) Hypoglycemia (Acute) RECOMMENDATIONS: 1. Continue BiPAP with naps and nightly 2. Wean supplemental oxygen to maintain saturations 88-92%. 3. Encourage incentive spirometer use and mobilize patient as tolerated 4. Physical therapy to evaluate patient. Out of bed to chair today. 5. Continue antibiotics as ordered IMPRESSIONS: 1. Metabolic/infectious encephalopathy Improved with use of BiPAP therapy. Avoid sedating medications. Continue treatment for underlying cystitis. 2. Compensated respiratory acidosis/concern for sleep disordered breathing Recommend continuing the use of noninvasive positive pressure ventilation with naps and nightly. Strongly recommend outpatient polysomnogram and follow-up in the pulmonary medicine clinic. Encourage incentive spirometer use and mobilize patient as tolerated. 3. Recurrent cystitis Continue antibiotics, pending finalized culture results. 4. Super morbid obesity/chronic kidney disease/diabetes mellitus/NILO Complicates care, management, recovery and prognosis. Okay to continue baseline outpatient medications. Physical therapy to evaluate patient today. Out of bed to chair. This note was generated with [employer] dictation software. It may contain incorrect words, spelling, and punctuation that were not noted in checking the note before signing. Code Visit Inpatient E&M: 81351 Init Hosp L3
[2017-07-25] MEDS: Piperacil/Tazobactam 3.375 GM/50 ML ML IV ×3 (05:09→21:45)
[2017-07-25 06:45] LABS: Bedside Glucose 230 mg/dL (70-110)
[2017-07-25 08:02] LABS: Amphetamine Urine VISTA NEGATIVE (<1000 ng/mL); Barbiturate Urine VISTA NEGATIVE (< 200 ng/mL); Benzodiazepine Urine VISTA NEGATIVE (< 200 ng/mL); Cocaine Urine VISTA NEGATIVE (< 300 ng/mL); Ecstacy Urine VISTA NEGATIVE (< 500 ng/mL); Methadone Urine VISTA NEGATIVE (< 300 ng/mL); PCP Urine VISTA NEGATIVE (< 25 ng/mL); THC Urine VISTA NEGATIVE (< 50 ng/mL); Vista UDS pH Range 5
--- NOTE | 2017-07-25 08:06 | PCM.PN.HOSP ---
Patient Problems: Active and Suspected Problems UTI (urinary tract infection) (Acute) Encephalopathy acute (Acute) Hypoglycemia (Acute) Subjective: 76-year-old gentleman with multiple comorbidities with recurrent UTI presenting with altered mental status. Patient was found to be hypoglycemic on admission and also had a UTI and was transferred to the intensive care unit following respiratory distress and significant lethargy was placed on noninvasive ventilationBiPAP Seen this a.m. patient appears much more awake and communicative urine culture still pending Objective: GENERAL: Much more awake and communicative HEENT: Clear conjunctiva, NECK; supple, normal thyroid, CHEST: Diminished to auscultation bilaterally, HEART: Regular S1 S2, no audible murmurs ABDOMEN: soft, non-tender, normoactive bowel sounds, RECTAL: deferred EXTREMITIES: No edema, no clubbing, no cyanosis. [employer]: No lateralizing sign SKIN: Chronic stasis dermatitis involving both lower extremities Vitals/I&O's: Vital Signs Temp Pulse Resp BP Pulse Ox 97.5 F L 65 13 126/60 H 100 07/25/17 08:00 07/25/17 08:00 07/25/17 08:00 07/25/17 08:00 07/25/17 08:00 Oxygen Flow Rate 2 Oxygen Delivery Method Nasal Cannula Weight: 172.2 kg Body Mass Index (BMI) 51.9 Intake and Output for Last 24 Hours 07/23/17 07/24/17 07/25/17 23:59 23:59 23:59 Intake Total 523 / 523 452 / 452 Output Total 900 / 900 350 / 350 Balance -377 / -377 102 / 102 Microbiology Past 72 Hours 07/24/17 12:45 Mucosa - Nasopharyngeal Respiratory Panel (PCR) - Final Laboratory Results 07/24/17 11:43: POC Glucose 90 07/24/17 16:04: Lactic Acid 1.3 07/24/17 16:50: MRSA (PCR) Negative 07/24/17 16:52: Specimen Type ART, Sample Site R Brachial, pH 7.37, Bicarbonate Actual 29.3 H, POC Total CO2 31, Base Excess 4 H, O2 Saturation 96, O2 % 25, ABG pCO2 50.4 H, ABG pO2 85, Randy Test POS, Respiration Rate 14, O2 Delivery Device Bi / C PAP, EPAP 19, IPAP 23, Blood Gas Notified Whom HOSP , Blood Gas Notified Time 4493 07/24/17 19:02: POC Glucose 144 H 07/24/17 21:13: POC Glucose 169 H 07/25/17 01:38: POC Glucose 150 H 07/25/17 04:20: WBC 7.5, RBC 4.79, Hgb 13.6, Hct 42.4, MCV 88.5, MCH 28.4, MCHC 32.1, RDW 14.1, RDW Differential 45.2 H, Plt Count 210, MPV 9.3 07/25/17 04:20: Sodium 140, Potassium 4.1, Chloride 103, Carbon Dioxide 28.0, Anion Gap 9, BUN 25 H, Creatinine 1.64 H, Estim Creat Clear Calc 42.06, Est GFR (MDRD) Af Amer 53 L, Est GFR (MDRD) Non-Af 44 L, BUN/Creatinine Ratio 15.2, Glucose 218 H, Calcium 8.1 L, Magnesium 2.2 07/25/17 04:20: TSH 0.80 07/25/17 06:40: POC Glucose 230 H 07/25/17 06:50: Urine Opiates Screen Cancelled, Urine Methadone Screen Cancelled, Ur Barbiturates Screen Cancelled, Ur Phencyclidine Scrn Cancelled, Ur Amphetamines Screen Cancelled, U Methamphetamin-MDMA Cancelled, U Benzodiazepines Scrn Cancelled, Urine Cocaine Screen Cancelled, U Cannabinoids Screen Cancelled, Ur Drug Screen Comment Cancelled 07/25/17 07:10: TSH Pending 07/25/17 07:10: Ammonia 12.0 07/25/17 07:10: Urine Opiates Screen NEGATIVE, Urine Methadone Screen NEGATIVE, Ur Barbiturates Screen NEGATIVE, Ur Phencyclidine Scrn NEGATIVE, Ur Amphetamines Screen NEGATIVE, U Methamphetamin-MDMA NEGATIVE, U Benzodiazepines Scrn NEGATIVE, Urine Cocaine Screen NEGATIVE, U Cannabinoids Screen NEGATIVE, Ur Drug Screen Comment Current Medications Acetaminophen (Tylenol) 650 mg PO Q6H PRN PRN PRN Reason: Mild Pain (scale 0-3)/T>100.7 Atorvastatin Calcium (Lipitor) 40 mg PO QHS FERNANDO Last Admin: 07/24/17 21:08 Dose: Not Given Bisacodyl (Dulcolax) 10 mg PO DAILY PRN PRN PRN Reason: Constipation Citalopram Hydrobromide (Celexa) 40 mg PO DAILY [facility] Dextrose (D50w Syringe) 0 gm IV X1 PRN; Protocol PRN Reason: Hypoglycemia Docusate Sodium (Colace) 200 mg PO QODAY PRN PRN Reason: Cold Symptons Enoxaparin Sodium (Lovenox) 40 mg SC Q12 [facility] Last Admin: 07/24/17 21:10 Dose: 40 mg Fluticasone Propionate (Flonase Nasal [place]) 1 spray NASAL BID PRN PRN Reason: NASAL CONGESTION Glucagon () 1 mg IM .X1 PRN PRN Reason: Hypoglycemia Piperacillin Sod/Tazobactam Sod (Zosyn) 3.375 gm in 50 mls @ 12.5 mls/hr IV Q8 [facility] Last Admin: 07/25/17 05:09 Dose: 12.5 mls/hr Insulin Aspart (Novolog Flexpen ([facility])) 0 units SC ACHS & 0200 [facility] PRN Reason: Protocol Last Admin: 07/25/17 07:52 Dose: 4 unit Insulin Detemir (Levemir ([facility])) 30 units SC BREAKFAST [facility] Losartan Potassium (Cozaar) 100 mg PO DAILY [facility] Magnesium Hydroxide (Milk Of Magnesia) 30 ml PO DAILY PRN PRN PRN Reason: Constipation Metoprolol Succinate (Toprol Xl (Beta Luna)) 100 mg PO DAILY [facility] Nutritional Formula (Lactose Free) (Glucerna Shake) 120 ml PO 4X/DAY [facility] Last Admin: 07/24/17 19:41 Dose: Not Given Nystatin (Mycostatin Powder) 1 applic TOPICAL BID [facility] PRN Reason: Protocol Ondansetron HCl (Zofran) 4 mg IV Q8H PRN PRN PRN Reason: Nausea Sodium Chloride () 5 - 30 ml IV UD PRN PRN Reason: SALINE FLUSH Tamsulosin HCl (Flomax) 0.4 mg PO DAILY [facility] Assessment/Plan Active and Suspected Problems UTI (urinary tract infection) (Acute) Encephalopathy acute (Acute) Hypoglycemia (Acute) 76-year-old gentleman with multiple comorbidities with recurrent UTI presenting with altered mental status. Patient was found to be hypoglycemic on admission and also had a UTI 1. Acute infectious encephalopathy secondary to UTI previous cultures have grown Pseudomonas patient was placed on Zosyn repeat culture sent consult placed to infectious disease 2. 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 Patient is on long-acting insulin as well as scheduled pre-meal short acting insulin also placed on Accu-Cheks before meals and at bedtime with sliding scale insulin 2. Diabetic nephropathy with chronic kidney disease stage III patient kidney function at baseline 4. Hypertension-blood pressure controlled, home medications continued with dose adjustment as needed 5. Obstructive sleep apnea 7. Chronic hypoxic respiratory failure multifactorial (COPD, obesity hypoventilation syndrome and NILO 7. COPD currently stable 8. History of PE patient was previously on Coumadin 9. History of kidney stones 10. Depression 11. Morbid obesity with BMI of 53.2 12. DVT prophylaxis Lovenox 40 mg SC every 12 (BMI greater than 40) Code Visit Inpatient E&M: 16275 Subs Hosp L3
[2017-07-25 08:08] LABS: Thyroid Stim Hormone (TSH) 0.77 uIU/mL (0.358-3.74)
--- NOTE | 2017-07-25 08:09 | PN_ITS ---
Patient Problems: Active and Suspected Problems UTI (urinary tract infection) (Acute) Encephalopathy acute (Acute) Hypoglycemia (Acute) Subjective: 76-year-old gentleman with multiple comorbidities with recurrent UTI presenting with altered mental status. Patient was found to be hypoglycemic on admission and also had a UTI and was transferred to the intensive care unit following respiratory distress and significant lethargy was placed on noninvasive ventilationBiPAP Seen this a.m. patient appears much more awake and communicative urine culture still pending Objective: GENERAL: Much more awake and communicative HEENT: Clear conjunctiva, NECK; supple, normal thyroid, CHEST: Diminished to auscultation bilaterally, HEART: Regular S1 S2, no audible murmurs ABDOMEN: soft, non-tender, normoactive bowel sounds, RECTAL: deferred EXTREMITIES: No edema, no clubbing, no cyanosis. CREDIT CHECKER: No lateralizing sign SKIN: Chronic stasis dermatitis involving both lower extremities Vitals/I&O's: Vital Signs Temp Pulse Resp BP Pulse Ox 97.5 F L 65 13 126/60 H 100 07/25/17 08:00 07/25/17 08:00 07/25/17 08:00 07/25/17 08:00 07/25/17 08:00 Oxygen Flow Rate 2 Oxygen Delivery Method Nasal Cannula Weight: 172.2 kg Body Mass Index (BMI) 51.9 Intake and Output for Last 24 Hours 07/23/17 07/24/17 07/25/17 23:59 23:59 23:59 Intake Total 523 / 523 452 / 452 Output Total 900 / 900 350 / 350 Balance -377 / -377 102 / 102 Microbiology Past 72 Hours 07/24/17 12:45 Mucosa - Nasopharyngeal Respiratory Panel (PCR) - Final Laboratory Results 07/24/17 11:43: POC Glucose 90 07/24/17 16:04: Lactic Acid 1.3 07/24/17 16:50: MRSA (PCR) Negative 07/24/17 16:52: Specimen Type ART, Sample Site R Brachial, pH 7.37, Bicarbonate Actual 29.3 H, POC Total CO2 31, Base Excess 4 H, O2 Saturation 96, O2 % 25, ABG pCO2 50.4 H, ABG pO2 85, Randy Test POS, Respiration Rate 14, O2 Delivery Device Bi / C PAP, EPAP 19, IPAP 23, Blood Gas Notified Whom HOSP , Blood Gas Notified Time 6065 07/24/17 19:02: POC Glucose 144 H 07/24/17 21:13: POC Glucose 169 H 07/25/17 01:38: POC Glucose 150 H 07/25/17 04:20: WBC 7.5, RBC 4.79, Hgb 13.6, Hct 42.4, MCV 88.5, MCH 28.4, MCHC 32.1, RDW 14.1, RDW Differential 45.2 H, Plt Count 210, MPV 9.3 07/25/17 04:20: Sodium 140, Potassium 4.1, Chloride 103, Carbon Dioxide 28.0, Anion Gap 9, BUN 25 H, Creatinine 1.64 H, Estim Creat Clear Calc 42.06, Est GFR (MDRD) Af Amer 53 L, Est GFR (MDRD) Non-Af 44 L, BUN/Creatinine Ratio 15.2, Glucose 218 H, Calcium 8.1 L, Magnesium 2.2 07/25/17 04:20: TSH 0.80 07/25/17 06:40: POC Glucose 230 H 07/25/17 06:50: Urine Opiates Screen Cancelled, Urine Methadone Screen Cancelled , Ur Barbiturates Screen Cancelled, Ur Phencyclidine Scrn Cancelled, Ur Amphetamines Screen Cancelled, U Methamphetamin-MDMA Cancelled, U Benzodiazepines Scrn Cancelled, Urine Cocaine Screen Cancelled, U Cannabinoids Screen Cancelled, Ur Drug Screen Comment Cancelled 07/25/17 07:10: TSH Pending 07/25/17 07:10: Ammonia 12.0 07/25/17 07:10: Urine Opiates Screen NEGATIVE, Urine Methadone Screen NEGATIVE, Ur Barbiturates Screen NEGATIVE, Ur Phencyclidine Scrn NEGATIVE, Ur Amphetamines Screen NEGATIVE, U Methamphetamin-MDMA NEGATIVE, U Benzodiazepines Scrn NEGATIVE, Urine Cocaine Screen NEGATIVE, U Cannabinoids Screen NEGATIVE, Ur Drug Screen Comment Current Medications Acetaminophen (Tylenol) 650 mg PO Q6H PRN PRN PRN Reason: Mild Pain (scale 0-3)/T>100.7 Atorvastatin Calcium (Lipitor) 40 mg PO QHS FERNANDO Last Admin: 07/24/17 21:08 Dose: Not Given Bisacodyl (Dulcolax) 10 mg PO DAILY PRN PRN PRN Reason: Constipation Citalopram Hydrobromide (Celexa) 40 mg PO DAILY [facility] Dextrose (D50w Syringe) 0 gm IV X1 PRN; Protocol PRN Reason: Hypoglycemia Docusate Sodium (Colace) 200 mg PO QODAY PRN PRN Reason: Cold Symptons Enoxaparin Sodium (Lovenox) 40 mg SC Q12 [facility] Last Admin: 07/24/17 21:10 Dose: 40 mg Fluticasone Propionate (Flonase Nasal [place]) 1 spray NASAL BID PRN PRN Reason: NASAL CONGESTION Glucagon () 1 mg IM .X1 PRN PRN Reason: Hypoglycemia Piperacillin Sod/Tazobactam Sod (Zosyn) 3.375 gm in 50 mls @ 12.5 mls/hr IV Q8 [facility] Last Admin: 07/25/17 05:09 Dose: 12.5 mls/hr Insulin Aspart (Novolog Flexpen ([facility])) 0 units SC ACHS & 0200 [facility] PRN Reason: Protocol Last Admin: 07/25/17 07:52 Dose: 4 unit Insulin Detemir (Levemir (Bkc)) 30 units SC BREAKFAST [facility] Losartan Potassium (Cozaar) 100 mg PO DAILY [facility] Magnesium Hydroxide (Milk Of Magnesia) 30 ml PO DAILY PRN PRN PRN Reason: Constipation Metoprolol Succinate (Toprol Xl (Beta Luna)) 100 mg PO DAILY [facility] Nutritional Formula (Lactose Free) (Glucerna Shake) 120 ml PO 4X/DAY [facility] Last Admin: 07/24/17 19:41 Dose: Not Given Nystatin (Mycostatin Powder) 1 applic TOPICAL BID [facility] PRN Reason: Protocol Ondansetron HCl (Zofran) 4 mg IV Q8H PRN PRN PRN Reason: Nausea Sodium Chloride () 5 - 30 ml IV UD PRN PRN Reason: SALINE FLUSH Tamsulosin HCl (Flomax) 0.4 mg PO DAILY [facility] Assessment/Plan Active and Suspected Problems UTI (urinary tract infection) (Acute) Encephalopathy acute (Acute) Hypoglycemia (Acute) 76-year-old gentleman with multiple comorbidities with recurrent UTI presenting with altered mental status. Patient was found to be hypoglycemic on admission and also had a UTI 1. Acute infectious encephalopathy secondary to UTI previous cultures have grown Pseudomonas patient was placed on Zosyn repeat culture sent consult placed to infectious disease 2. 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 Patient is on long-acting insulin as well as scheduled pre-meal short acting insulin also placed on Accu-Cheks before meals and at bedtime with sliding scale insulin 2. Diabetic nephropathy with chronic kidney disease stage III patient kidney function at baseline 4. Hypertension-blood pressure controlled, home medications continued with dose adjustment as needed 5. Obstructive sleep apnea 7. Chronic hypoxic respiratory failure multifactorial (COPD, obesity hypoventilation syndrome and NILO 7. COPD currently stable 8. History of PE patient was previously on Coumadin 9. History of kidney stones 10. Depression 11. Morbid obesity with BMI of 53.2 12. DVT prophylaxis Lovenox 40 mg SC every 12 (BMI greater than 40) Code Visit Inpatient E&M: 67422 Subs Hosp L3
--- NOTE | 2017-07-25 09:38 | CASEMGMT ---
See RN CM Assessment. DC PLAN: home on dc. Dr. Malone requested bring Bipap in to evaluate settings. Pt has oxygen @ night through [facility]. Will follow PT/OT evaluations for dc planning needs. Pt states he is independent. Tigist ASCENCION RN ACM
[2017-07-25] MEDS: Nystatin Powder 15gm Bottle 1 APPLIC TOPICAL ×2 (09:58→21:45)
[2017-07-25] MEDS: Metoprolol(XL)Succ 100 MG Tablet PO (10:00)
[2017-07-25] MEDS: Citalopram 40 MG TABLET PO (10:00)
[2017-07-25] MEDS: Losartan Potassium 100 MG Tablet PO (10:00)
[2017-07-25] MEDS: Enoxaparin 40 MG/0.4 ML Syringe SC ×2 (10:00→21:44)
[2017-07-25] MEDS: Tamsulosin HCl 0.4 MG Capsule PO (10:01)
[2017-07-25 11:56] LABS: Bedside Glucose 322 mg/dL (70-110)
[2017-07-25 16:31] LABS: Bedside Glucose 290 mg/dL (70-110)
[2017-07-25 18:14] LABS: International Normalized Ratio 1.7; Prothrombin Time (Protime)PT. 19.6 SECONDS (11.7-14.9)
[2017-07-25] MEDS: Atorvastatin Calcium 40 MG Tablet PO (21:44)
[2017-07-25 21:56] LABS: Bedside Glucose 327 mg/dL (70-110)
[2017-07-26] VITALS (21 sets, daily range): BP systolic 126–171; BP diastolic 56–99; PULSE 53–77; RESP 12–56; TEMP 36.7–37.3; O2SAT 92–100
[2017-07-26 02:21] LABS: Bedside Glucose 274 mg/dL (70-110)
[2017-07-26 04:54] LABS: Hemoglobin 12.7 g/dl (13.0-16.5); Mean Corp Hgb Conc 32.6 g/gl (32-36); Mean Corpuscular Hgb 28.9 pg (27.0-32.0); Mean Corpuscular Volume 88.6 fL (80-94); Mean Platelet Vol. 9.5 fl (6.2-12.0); Platelet Count 211 K/mm3 (150-450); RBC Distribution Width CV 13.9 % (11.6-14.6); RBC Distribution Width SD 44.1 fl (35.1-43.9); White Blood Count 5.8 K/mm3 (4.4-11.0)
[2017-07-26 04:57] LABS: Scan Indicated on CBC? Y/N NO
[2017-07-26 04:58] LABS: Anion Gap 8 (5-15); BUN 26 mg/dL (7-18); Calcium,Total 8.1 mg/dL (8.5-10.1); Chloride 102 mmol/L (98-107); Creatinine, Serum 1.86 mg/dL (0.70-1.30); EST Glomerular Filtration Rate 38 mL/min (>60); Est Glom Filt Rate - Afr Amer 46 mL/min (>60); Estimated Creatinine Clearance 37.08 ml/min; Glucose 233 mg/dL (74-106); Potassium 3.8 mmol/L (3.5-5.1); Sodium Level 138 mmol/L (136-145)
[2017-07-26 05:05] LABS: International Normalized Ratio 1.9; Prothrombin Time (Protime)PT. 20.6 SECONDS (11.7-14.9)
--- NOTE | 2017-07-26 05:07 | PCM.PN.INT ---
Subjective: The patient was seen and examined at the bedside this morning. Events from the last 24 hours have been reviewed. The patient is currently afebrile, hemodynamically stable and maintaining appropriate oxygen saturations on room air. The patient did wear BiPAP for short period time overnight with a pressure setting of 23/19 cm water with humidification. Creatinine is up this morning to 1.86. The patient reports feeling mildly short of breath. It is still unclear whether he is compliant with the use of his nocturnal Pap therapy in his home environment. He does report that he feels that his current pressure settings are too high, as they are filling his stomach with air. Objective: The patient's most recent lab work, culture data and imaging studies have all been personally reviewed. Prior urine cultures have grown out both MRSA and Pseudomonas in the past. Surface echocardiogram from January 2017 revealed mild concentric LVH with an ejection fraction of 60%. Pulmonary artery systolic pressure was estimated to be [address] revealed chronic involutional changes. Lungs were grossly clear on plain film chest x-ray. Urine culture dated July 24 was positive for both beta Streptococcus and Staphylococcus species. General: Alert, Cooperative, No apparent distress, - - Super morbidly obese. Resting comfortably in bed. HEENT: Atraumatic, PERRLA, Normocephalic Oral: Moist Mucosa, No Gingival or Mucosal Lesions/ Ulcerations Neck: Supple, No Nodes, Trachea Midline, - - Large neck circumference with redundant soft tissue. Lungs: No rhonchi, No wheeze, No rales, Diminished Cardiovascular: Regular rate, Regular Rhythm, Normal S1, Normal S2, No murmurs, - - Distant heart tones secondary to body habitus Abdomen: Bowel Sounds Present, Soft, Non Tender, Obese Extremities: No clubbing, No cyanosis, Edema Skin: - - Lower extremity venous stasis dermatitis Musculoskeletal: No Muscle Wasting Lymphatic: No Cervical, Supraclavicular, or Inguinal Adenopathy Neurological: Neuro grossly intact Psych/Mental Status: Normal Affect, Appropriate Vital Signs Temp Pulse Resp BP Pulse Ox 98.9 F 57 L 56 H 145/77 H 95 07/26/17 04:00 07/26/17 04:00 07/26/17 04:00 07/26/17 04:00 07/26/17 04:00 Oxygen Flow Rate 2 Oxygen Delivery Method Nasal Cannula Weight: 379 lb 10.176 oz Body Mass Index (BMI) 51.9 Intake and Output for Last 24 Hours 07/24/17 07/25/17 07/26/17 23:59 23:59 23:59 Intake Total 523 / 523 0 / 2080 Output Total 900 / 900 2250 / 2250 Balance -377 / -377 -170 / -170 Labs (Last 48 Hours) 07/24/17 07/24/17 07/24/17 11:43 16:04 16:50 WBC RBC Hgb Hct MCV MCH MCHC RDW RDW Differential Plt Count MPV PT INR Specimen Type Sample Site pH Bicarbonate Actual POC Total CO2 Base Excess O2 Saturation O2 % ABG pCO2 ABG pO2 Randy Test Respiration Rate O2 Delivery Device EPAP IPAP Blood Gas Notified Whom Blood Gas Notified Time Sodium Potassium Chloride Carbon Dioxide Anion Gap BUN Creatinine Estim Creat Clear Calc Est GFR (MDRD) Af Amer Est GFR (MDRD) Non-Af BUN/Creatinine Ratio Glucose Lactic Acid 1.3 Calcium Magnesium Ammonia TSH Urine Opiates Screen Urine Methadone Screen Ur Barbiturates Screen Ur Phencyclidine Scrn Ur Amphetamines Screen U Methamphetamin-MDMA U Benzodiazepines Scrn Urine Cocaine Screen U Cannabinoids Screen Ur Drug Screen Comment MRSA (PCR) Negative POC Glucose 90 07/24/17 07/24/17 07/24/17 16:52 19:02 21:13 WBC RBC Hgb Hct MCV MCH MCHC RDW RDW Differential Plt Count MPV PT INR Specimen Type ART Sample Site R Brachial pH 7.37 Bicarbonate Actual 29.3 H POC Total CO2 31 Base Excess 4 H O2 Saturation 96 O2 % 25 ABG pCO2 50.4 H ABG pO2 85 Randy Test POS Respiration Rate 14 O2 Delivery Device Bi / C PAP EPAP 19 IPAP 23 Blood Gas Notified Whom [facility] Blood Gas Notified Time 1655 Sodium Potassium Chloride Carbon Dioxide Anion Gap BUN Creatinine Estim Creat Clear Calc Est GFR (MDRD) Af Amer Est GFR (MDRD) Non-Af BUN/Creatinine Ratio Glucose Lactic Acid Calcium Magnesium Ammonia TSH Urine Opiates Screen Urine Methadone Screen Ur Barbiturates Screen Ur Phencyclidine Scrn Ur Amphetamines Screen U Methamphetamin-MDMA U Benzodiazepines Scrn Urine Cocaine Screen U Cannabinoids Screen Ur Drug Screen Comment MRSA (PCR) POC Glucose 144 H 169 H 07/25/17 07/25/17 07/25/17 01:38 04:20 04:20 WBC 7.5 RBC 4.79 Hgb 13.6 Hct 42.4 MCV 88.5 MCH 28.4 MCHC 32.1 RDW 14.1 RDW Differential 45.2 H Plt Count 210 MPV 9.3 PT INR Specimen Type Sample Site pH Bicarbonate Actual POC Total CO2 Base Excess O2 Saturation O2 % ABG pCO2 ABG pO2 Randy Test Respiration Rate O2 Delivery Device EPAP IPAP Blood Gas Notified Whom Blood Gas Notified Time Sodium 140 Potassium 4.1 Chloride 103 Carbon Dioxide 28.0 Anion Gap 9 BUN 25 H Creatinine 1.64 H Estim Creat Clear Calc 42.06 Est GFR (MDRD) Af Amer 53 L Est GFR (MDRD) Non-Af 44 L BUN/Creatinine Ratio 15.2 Glucose 218 H Lactic Acid Calcium 8.1 L Magnesium 2.2 Ammonia TSH Urine Opiates Screen Urine Methadone Screen Ur Barbiturates Screen Ur Phencyclidine Scrn Ur Amphetamines Screen U Methamphetamin-MDMA U Benzodiazepines Scrn Urine Cocaine Screen U Cannabinoids Screen Ur Drug Screen Comment MRSA (PCR) POC Glucose 150 H 07/25/17 07/25/17 07/25/17 04:20 06:40 06:50 WBC RBC Hgb Hct MCV MCH MCHC RDW RDW Differential Plt Count MPV PT INR Specimen Type Sample Site pH Bicarbonate Actual POC Total CO2 Base Excess O2 Saturation O2 % ABG pCO2 ABG pO2 Randy Test Respiration Rate O2 Delivery Device EPAP IPAP Blood Gas Notified Whom Blood Gas Notified Time Sodium Potassium Chloride Carbon Dioxide Anion Gap BUN Creatinine Estim Creat Clear Calc Est GFR (MDRD) Af Amer Est GFR (MDRD) Non-Af BUN/Creatinine Ratio Glucose Lactic Acid Calcium Magnesium Ammonia TSH 0.80 Urine Opiates Screen Cancelled Urine Methadone Screen Cancelled Ur Barbiturates Screen Cancelled Ur Phencyclidine Scrn Cancelled Ur Amphetamines Screen Cancelled U Methamphetamin-MDMA Cancelled U Benzodiazepines Scrn Cancelled Urine Cocaine Screen Cancelled U Cannabinoids Screen Cancelled Ur Drug Screen Comment Cancelled MRSA (PCR) POC Glucose 230 H 07/25/17 07/25/17 07/25/17 07:10 07:10 07:10 WBC RBC Hgb Hct MCV MCH MCHC RDW RDW Differential Plt Count MPV PT INR Specimen Type Sample Site pH Bicarbonate Actual POC Total CO2 Base Excess O2 Saturation O2 % ABG pCO2 ABG pO2 Randy Test Respiration Rate O2 Delivery Device EPAP IPAP Blood Gas Notified Whom Blood Gas Notified Time Sodium Potassium Chloride Carbon Dioxide Anion Gap BUN Creatinine Estim Creat Clear Calc Est GFR (MDRD) Af Amer Est GFR (MDRD) Non-Af BUN/Creatinine Ratio Glucose Lactic Acid Calcium Magnesium Ammonia 12.0 TSH 0.77 Urine Opiates Screen NEGATIVE Urine Methadone Screen NEGATIVE Ur Barbiturates Screen NEGATIVE Ur Phencyclidine Scrn NEGATIVE Ur Amphetamines Screen NEGATIVE U Methamphetamin-MDMA NEGATIVE U Benzodiazepines Scrn NEGATIVE Urine Cocaine Screen NEGATIVE U Cannabinoids Screen NEGATIVE Ur Drug Screen Comment MRSA (PCR) POC Glucose 07/25/17 07/25/17 07/25/17 11:44 16:21 17:45 WBC RBC Hgb Hct MCV MCH MCHC RDW RDW Differential Plt Count MPV PT 19.6 H INR 1.7 Specimen Type Sample Site pH Bicarbonate Actual POC Total CO2 Base Excess O2 Saturation O2 % ABG pCO2 ABG pO2 Randy Test Respiration Rate O2 Delivery Device EPAP IPAP Blood Gas Notified Whom Blood Gas Notified Time Sodium Potassium Chloride Carbon Dioxide Anion Gap BUN Creatinine Estim Creat Clear Calc Est GFR (MDRD) Af Amer Est GFR (MDRD) Non-Af BUN/Creatinine Ratio Glucose Lactic Acid Calcium Magnesium Ammonia TSH Urine Opiates Screen Urine Methadone Screen Ur Barbiturates Screen Ur Phencyclidine Scrn Ur Amphetamines Screen U Methamphetamin-MDMA U Benzodiazepines Scrn Urine Cocaine Screen U Cannabinoids Screen Ur Drug Screen Comment MRSA (PCR) POC Glucose 322 H 290 H 07/25/17 07/26/17 07/26/17 21:41 02:08 04:20 WBC 5.8 RBC 4.40 L Hgb 12.7 L Hct 39.0 L MCV 88.6 MCH 28.9 MCHC 32.6 RDW 13.9 RDW Differential 44.1 H Plt Count 211 MPV 9.5 PT INR Specimen Type Sample Site pH Bicarbonate Actual POC Total CO2 Base Excess O2 Saturation O2 % ABG pCO2 ABG pO2 Randy Test Respiration Rate O2 Delivery Device EPAP IPAP Blood Gas Notified Whom Blood Gas Notified Time Sodium Potassium Chloride Carbon Dioxide Anion Gap BUN Creatinine Estim Creat Clear Calc Est GFR (MDRD) Af Amer Est GFR (MDRD) Non-Af BUN/Creatinine Ratio Glucose Lactic Acid Calcium Magnesium Ammonia TSH Urine Opiates Screen Urine Methadone Screen Ur Barbiturates Screen Ur Phencyclidine Scrn Ur Amphetamines Screen U Methamphetamin-MDMA U Benzodiazepines Scrn Urine Cocaine Screen U Cannabinoids Screen Ur Drug Screen Comment MRSA (PCR) POC Glucose 327 H 274 H 07/26/17 07/26/17 04:20 04:20 WBC RBC Hgb Hct MCV MCH MCHC RDW RDW Differential Plt Count MPV PT Pending INR Pending Specimen Type Sample Site pH Bicarbonate Actual POC Total CO2 Base Excess O2 Saturation O2 % ABG pCO2 ABG pO2 Randy Test Respiration Rate O2 Delivery Device EPAP IPAP Blood Gas Notified Whom Blood Gas Notified Time Sodium 138 Potassium 3.8 Chloride 102 Carbon Dioxide 28.0 Anion Gap 8 BUN 26 H Creatinine 1.86 H Estim Creat Clear Calc 37.08 Est GFR (MDRD) Af Amer 46 L Est GFR (MDRD) Non-Af 38 L BUN/Creatinine Ratio 14.0 Glucose 233 H Lactic Acid Calcium 8.1 L Magnesium Ammonia TSH Urine Opiates Screen Urine Methadone Screen Ur Barbiturates Screen Ur Phencyclidine Scrn Ur Amphetamines Screen U Methamphetamin-MDMA U Benzodiazepines Scrn Urine Cocaine Screen U Cannabinoids Screen Ur Drug Screen Comment MRSA (PCR) POC Glucose Microbiology 07/24/17 10:55 Urine Catheter - Catheter Urine Culture - Preliminary Beta streptococcus Staphylococcus species 07/24/17 12:45 Mucosa - Nasopharyngeal Respiratory Panel (PCR) - Final Clinical Impression(s) from Imaging Studies Brain CT 07/24/17 08:13 IMPRESSION: Chronic involutional changes of the brain. Electronically Signed: Seymour Shelley MD at 9:37 EST Tel [phone], Service support , Chest X-Ray 07/24/17 08:13 IMPRESSION: Cardiomegaly. Electronically Signed: Seymour Shelley MD at 8:49 EST Tel [phone], Service support , Assessment/Plan Active and Suspected Problems UTI (urinary tract infection) (Acute) Encephalopathy acute (Acute) Hypoglycemia (Acute) RECOMMENDATIONS: 1. Continue BiPAP with naps and nightly. The patient's family currently reports that his home PAP machine is broke. They reportedly contacted [facility] for assistance. His home pressure settings are not known. His current settings may need to be empirically reduced to encourage compliance. 2. Wean supplemental oxygen to maintain saturations 88-92%. 3. Encourage incentive spirometer use and mobilize patient as tolerated 4. Physical therapy to continue to work with patient 5. Continue antibiotics as ordered IMPRESSIONS: 1. Metabolic/infectious encephalopathy Improved with use of BiPAP therapy. Avoid sedating medications. Continue treatment for underlying cystitis. 2. Compensated respiratory acidosis/concern for sleep disordered breathing Recommend continuing the use of noninvasive positive pressure ventilation with naps and nightly. Strongly recommend repeat outpatient polysomnogram and follow-up in the pulmonary medicine clinic. Encourage incentive spirometer use and mobilize patient as tolerated. Will attempt to ascertain home pressure settings from the patient's family if able. If the patient is unable to tolerate his current pressure settings, IPAP/EPAP settings can be reduced empirically. 3. Recurrent cystitis Continue antibiotics, pending finalized culture results. ID is following. 4. Super morbid obesity/chronic kidney disease/diabetes mellitus/NILO Complicates care, management, recovery and prognosis. Okay to continue baseline outpatient medications. Physical therapy to work with patient. Out of bed to chair. This note was generated with [employer] dictation software. It may contain incorrect words, spelling, and punctuation that were not noted in checking the note before signing. DISPOSITION: The patient is medically stable for transfer out of the intensive care unit. Code Visit Inpatient E&M: 83481 Subs Hosp L2
[2017-07-26] MEDS: Piperacil/Tazobactam 3.375 GM/50 ML ML IV ×3 (05:12→22:52)
--- NOTE | 2017-07-26 07:16 | PN_ITS ---
Patient Problems: Active and Suspected Problems UTI (urinary tract infection) (Acute) Encephalopathy acute (Acute) Hypoglycemia (Acute) Subjective: Patient apparently did not tolerate BiPAP during the night; urine cultures demonstrated Beta streptococcus and Staphylococcus species, however colony count was normal clinically significant plan is for patient to be transferred from the ICU to PCU Objective: GENERAL: Much more awake and communicative HEENT: Clear conjunctiva, NECK; supple, normal thyroid, CHEST: Diminished to auscultation bilaterally, HEART: Regular S1 S2, no audible murmurs ABDOMEN: soft, non-tender, normoactive bowel sounds, RECTAL: deferred EXTREMITIES: No edema, no clubbing, no cyanosis. 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: No lateralizing sign SKIN: Chronic stasis dermatitis involving both lower extremities Vitals/I&O's: Vital Signs Temp Pulse Resp BP Pulse Ox 98.8 F 65 20 H 160/92 H 92 07/26/17 05:00 07/26/17 07:00 07/26/17 07:00 07/26/17 07:00 07/26/17 07:00 Oxygen Flow Rate 2 Oxygen Delivery Method Room Air Weight: 175.7 kg Body Mass Index (BMI) 51.9 Intake and Output for Last 24 Hours 07/24/17 07/25/17 07/26/17 23:59 23:59 23:59 Intake Total 523 / 523 2080 / 2080 177 / 177 Output Total 900 / 900 2250 / 2250 450 / 450 Balance -377 / -377 -170 / -170 -273 / -273 Microbiology Past 72 Hours 07/24/17 10:55 Urine Catheter - Catheter Urine Culture - Preliminary Beta streptococcus Staphylococcus species 07/24/17 12:45 Mucosa - Nasopharyngeal Respiratory Panel (PCR) - Final Laboratory Results 07/25/17 04:20: TSH 0.80 07/25/17 07:10: TSH 0.77 07/25/17 07:10: Ammonia 12.0 07/25/17 07:10: Urine Opiates Screen NEGATIVE, Urine Methadone Screen NEGATIVE, Ur Barbiturates Screen NEGATIVE, Ur Phencyclidine Scrn NEGATIVE, Ur Amphetamines Screen NEGATIVE, U Methamphetamin-MDMA NEGATIVE, U Benzodiazepines Scrn NEGATIVE, Urine Cocaine Screen NEGATIVE, U Cannabinoids Screen NEGATIVE, Ur Drug Screen Comment 07/25/17 11:44: POC Glucose 322 H 07/25/17 16:21: POC Glucose 290 H 07/25/17 17:45: PT 19.6 H, INR 1.7 07/25/17 21:41: POC Glucose 327 H 07/26/17 02:08: POC Glucose 274 H 07/26/17 04:20: WBC 5.8, RBC 4.40 L, Hgb 12.7 L, Hct 39.0 L, MCV 88.6, MCH 28.9 , MCHC 32.6, RDW 13.9, RDW Differential 44.1 H, Plt Count 211, MPV 9.5 07/26/17 04:20: Sodium 138, Potassium 3.8, Chloride 102, Carbon Dioxide 28.0, Anion Gap 8, BUN 26 H, Creatinine 1.86 H, Estim Creat Clear Calc 37.08, Est GFR (MDRD) Af Amer 46 L, Est GFR (MDRD) Non-Af 38 L, BUN/Creatinine Ratio 14.0, Glucose 233 H, Calcium 8.1 L 07/26/17 04:20: PT 20.6 H, INR 1.9 Current Medications Acetaminophen (Tylenol) 650 mg PO Q6H PRN PRN PRN Reason: Mild Pain (scale 0-3)/T>100.7 Atorvastatin Calcium (Lipitor) 40 mg PO QHS [facility] Last Admin: 07/25/17 21:44 Dose: 40 mg Bisacodyl (Dulcolax) 10 mg PO DAILY PRN PRN PRN Reason: Constipation Citalopram Hydrobromide (Celexa) 40 mg PO DAILY [facility] Last Admin: 07/25/17 10:00 Dose: 40 mg Dextrose (D50w Syringe) 0 gm IV X1 PRN; Protocol PRN Reason: Hypoglycemia Docusate Sodium (Colace) 200 mg PO QODAY PRN PRN Reason: Cold Symptons Enoxaparin Sodium (Lovenox) 40 mg SC Q12 [facility] Last Admin: 07/25/17 21:44 Dose: 40 mg Fluticasone Propionate (Flonase Nasal [place]) 1 spray NASAL BID PRN PRN Reason: NASAL CONGESTION Glucagon () 1 mg IM .X1 PRN PRN Reason: Hypoglycemia Piperacillin Sod/Tazobactam Sod (Zosyn) 3.375 gm in 50 mls @ 12.5 mls/hr IV Q8 [facility] Last Admin: 07/26/17 05:12 Dose: 12.5 mls/hr Insulin Aspart (Novolog Flexpen (Bk)) 0 units SC ACHS & 0200 [facility] PRN Reason: Protocol Last Admin: 07/26/17 02:11 Dose: 6 unit Insulin Detemir (Levemir (Bk)) 30 units SC BREAKFAST [facility] Last Admin: 07/25/17 09:59 Dose: 30 u Losartan Potassium (Cozaar) 100 mg PO DAILY [facility] Last Admin: 07/25/17 10:00 Dose: 100 mg Magnesium Hydroxide (Milk Of Magnesia) 30 ml PO DAILY PRN PRN PRN Reason: Constipation Metoprolol Succinate (Toprol Xl (Beta Luna)) 100 mg PO DAILY [facility] Last Admin: 07/25/17 10:00 Dose: 100 mg Nystatin (Mycostatin Powder) 1 applic TOPICAL BID [facility] PRN Reason: Protocol Last Admin: 07/25/17 21:45 Dose: 1 applicatio Ondansetron HCl (Zofran) 4 mg IV Q8H PRN PRN PRN Reason: Nausea Sodium Chloride () 5 - 30 ml IV UD PRN PRN Reason: SALINE FLUSH Tamsulosin HCl (Flomax) 0.4 mg PO DAILY [facility] Last Admin: 07/25/17 10:01 Dose: 0.4 mg Warfarin Sodium (Coumadin (Pbkc)) 15 mg PO DAILY@1700 [facility] Last Admin: 07/25/17 18:56 Dose: 15 mg Assessment/Plan Active and Suspected Problems UTI (urinary tract infection) (Acute) Encephalopathy acute (Acute) Hypoglycemia (Acute) 76-year-old gentleman with multiple comorbidities with recurrent UTI presenting with altered mental status. Patient was found to be hypoglycemic on admission and also had a UTI 1. Acute infectious encephalopathy secondary to UTI previous cultures have grown Pseudomonas patient was placed on Zosyn repeat culture sent consult placed to infectious disease. Current urine cultures demonstrated Beta streptococcus and Staphylococcus species, however colony count was normal clinically significant. Regardless patient has improved clinically 2. 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 Patient is on long-acting insulin as well as scheduled pre-meal short acting insulin also placed on Accu-Cheks before meals and at bedtime with sliding scale insulin 2. Diabetic nephropathy with chronic kidney disease stage III patient kidney function at baseline 4. Hypertension-blood pressure controlled, home medications continued with dose adjustment as needed 5. Obstructive sleep apnea 7. Chronic hypoxic respiratory failure multifactorial (COPD, obesity hypoventilation syndrome and NILO 7. COPD currently stable 8. History of PE patient was previously on Coumadin 9. History of kidney stones 10. Depression 11. Morbid obesity with BMI of 53.2 12. DVT prophylaxis Lovenox 40 mg SC every 12 (BMI greater than 40) Code Visit Inpatient E&M: 82610 Subs Hosp L2
[2017-07-26] MEDS: Docusate Sodium 100 MG Capsule 200 MG PO (07:53)
[2017-07-26 08:01] LABS: Bedside Glucose 229 mg/dL (70-110)
[2017-07-26] MEDS: Nystatin Powder 15gm Bottle 1 APPLIC TOPICAL ×2 (09:54→22:51)
[2017-07-26] MEDS: Losartan Potassium 100 MG Tablet PO (09:55)
[2017-07-26] MEDS: Tamsulosin HCl 0.4 MG Capsule PO (09:55)
[2017-07-26] MEDS: Citalopram 40 MG TABLET PO (09:55)
[2017-07-26] MEDS: Metoprolol(XL)Succ 100 MG Tablet PO (09:55)
[2017-07-26 11:31] LABS: Bedside Glucose 303 mg/dL (70-110)
[2017-07-26 16:26] LABS: Bedside Glucose 297 mg/dL (70-110)
--- NOTE | 2017-07-26 18:01 | NURSING ---
this RN assuming care of pt at this time
[2017-07-26] MEDS: Atorvastatin Calcium 40 MG Tablet PO (22:51)
[2017-07-26 23:11] LABS: Bedside Glucose 282 mg/dL (70-110)
[2017-07-27] VITALS (16 sets, daily range): BP systolic 139–192; BP diastolic 64–86; PULSE 39–66; RESP 14–26; TEMP 36.3–36.6; O2SAT 94–98
[2017-07-27 02:11] LABS: Bedside Glucose 222 mg/dL (70-110)
[2017-07-27] MEDS: Piperacil/Tazobactam 3.375 GM/50 ML ML IV (05:02)
[2017-07-27 05:49] LABS: International Normalized Ratio 2.6; Prothrombin Time (Protime)PT. 26.7 SECONDS (11.7-14.9)
[2017-07-27 05:59] LABS: Anion Gap 7 (5-15); BUN 24 mg/dL (7-18); Calcium,Total 8.1 mg/dL (8.5-10.1); Chloride 104 mmol/L (98-107); Creatinine, Serum 1.71 mg/dL (0.70-1.30); EST Glomerular Filtration Rate 42 mL/min (>60); Est Glom Filt Rate - Afr Amer 50 mL/min (>60); Estimated Creatinine Clearance 40.34 ml/min; Glucose 215 mg/dL (74-106); Potassium 3.9 mmol/L (3.5-5.1); Sodium Level 138 mmol/L (136-145)
[2017-07-27 06:51] LABS: Bedside Glucose 212 mg/dL (70-110)
--- NOTE | 2017-07-27 07:33 | PCM.PROGNOTE ---
Patient Problems: Active and Suspected Problems UTI (urinary tract infection) (Acute) Encephalopathy acute (Acute) Hypoglycemia (Acute) Subjective: Chief complaint: Follow-up after admission for acute metabolic encephalopathy due to acute cystitis/UTI as well as hypoglycemia. Patient seen and examined. No acute events overnight. He denies any complaints. Denied chest pain or shortness of breath. He is alert and oriented ?3. Denied abdominal pain, nausea vomiting. He has been tolerating BiPAP overnight, he has been on BiPAP at home. Vital signs are stable. - Physical Exam General: Alert, Oriented x3, Cooperative HEENT: Atraumatic, PERRLA, EOMI Oral: Moist Mucosa, No Gingival or Mucosal Lesions/ Ulcerations Neck: Supple, No JVD, Negative Carotid Bruits, Trachea Midline, Thyroid Normal Size and Texture Lungs: Clear to auscultation, No rhonchi, No wheeze, No rales, Diminished Cardiovascular: Regular rate, Regular Rhythm, Normal S1, Normal S2, PMI Normal Abdomen: Bowel Sounds Present, Soft, Non Tender, Non-Distended, No Hepato-splenomegaly, Obese Extremities: No clubbing, No cyanosis, Edema - Trace edema, stasis dermatitis. Skin: No rashes, No breakdown Lymphatic: No Cervical, Supraclavicular, or Inguinal Adenopathy Neurological: Cranial nerves II-XII grossly intact, Motor Exam 5/5 strength throughout Psych/Mental Status: Flat Affect Vital Signs Temp Pulse Resp BP Pulse Ox 97.5 F L 47 L 16 139/64 H 96 07/27/17 04:45 07/27/17 04:45 07/27/17 04:45 07/27/17 04:45 07/27/17 04:45 Oxygen Flow Rate 2 Oxygen Delivery Method Bi-pap Weight: 387 lb 5.635 oz Body Mass Index (BMI) 51.9 Intake and Output for Last 24 Hours 07/25/17 07/26/17 07/27/17 23:59 23:59 23:59 Intake Total 2080 / 2080 1394.4 / 1394.4 72.8 / 72.8 Output Total 2250 / 2250 850 / 850 Balance -170 / -170 544.4 / 544.4 72.8 / 72.8 Microbiology Past 72 Hours 07/24/17 13:00 Blood Culture - Preliminary Blood Culture (Wb) - Anticubital Right No growth in 48 hours. 07/24/17 10:55 Urine Culture - Preliminary Urine Catheter - Catheter Beta streptococcus Staphylococcus species Gram negative cata 07/24/17 12:45 Respiratory Panel (PCR) - Final Mucosa - Nasopharyngeal Laboratory Tests Past 24 Hrs 07/27/17 07/27/17 05:20 05:20 PT 26.7 H INR 2.6 Sodium 138 Potassium 3.9 Chloride 104 Carbon Dioxide 27.0 Anion Gap 7 BUN 24 H Creatinine 1.71 H Estim Creat Clear Calc 40.34 Est GFR (MDRD) Af Amer 50 L Est GFR (MDRD) Non-Af 42 L BUN/Creatinine Ratio 14.0 Glucose 215 H Calcium 8.1 L POC Glucose 07/27/17 07/27/17 07/26/17 06:47 02:01 22:44 POC Glucose 212 H 222 H 282 H 07/26/17 07/26/17 07/26/17 16:13 11:23 07:38 POC Glucose 297 H 303 H 229 H Assessment/Plan Active and Suspected Problems UTI (urinary tract infection) (Acute) Encephalopathy acute (Acute) Hypoglycemia (Acute) This is a 76 years old male patient admitted because of change in mental status, found to have acute cystitis complicated by acute metabolic encephalopathy as well as hypoglycemia. #1 altered mental status/acute metabolic encephalopathy: Probably due to acute cystitis in addition to hypoglycemia. Today, patient is alert and oriented ?3. CT scan brain on admission revealed no acute findings. Vital signs are stable. Resolved. Reportedly, patient came from long-term and probably he can go back to long-term later today or tomorrow. #2 acute cystitis: On IV Zosyn. Remained afebrile, other vital signs are stable. Blood culture showed no growth in 48 hours. Urine culture showed beta Streptococcus, staph species and gram-negative cata, final cultures pending. Plan to continue same treatment. #3 hypoglycemia: Resolved. Blood sugar has been in the range of 200s. He is on Levemir insulin as well as sliding scale. #4 type 2 diabetes mellitus: As mentioned above, at this time his only on Levemir and sliding scale. Blood sugar has been in the range of 200s. At home, he is on high doses of insulin U5 100. #5 hypertension: Blood pressure stable, continue losartan and metoprolol. #6 chronic respiratory failure: Multifactorial secondary to obstructive sleep apnea, morbid obesity and hypertension syndrome. He is on BiPAP at home, has been tolerating BiPAP overnight. #7 obstructive sleep apnea: On BiPAP at night. #8 stage III chronic kidney disease: Baseline creatinine has been around 1.4-1.8 mg/dL. Today's creatinine is 1.71, stable at baseline. #9 history of PE: On Coumadin, INR is 2.6. #10 DVT prophylaxis: Subcu Lovenox twice daily because of BMI greater than 40. This note was generated with InSpheroation software. It may contain incorrect words, spelling, and punctuation that were not noted in checking the note before signing.
--- NOTE | 2017-07-27 07:42 | PN_ITS ---
Patient Problems: Active and Suspected Problems UTI (urinary tract infection) (Acute) Encephalopathy acute (Acute) Hypoglycemia (Acute) Subjective: Chief complaint: Follow-up after admission for acute metabolic encephalopathy due to acute cystitis/UTI as well as hypoglycemia. Patient seen and examined. No acute events overnight. He denies any complaints. Denied chest pain or shortness of breath. He is alert and oriented ?3. Denied abdominal pain, nausea vomiting. He has been tolerating BiPAP overnight, he has been on BiPAP at home. Vital signs are stable. - Physical Exam General: Alert, Oriented x3, Cooperative HEENT: Atraumatic, PERRLA, EOMI Oral: Moist Mucosa, No Gingival or Mucosal Lesions/ Ulcerations Neck: Supple, No JVD, Negative Carotid Bruits, Trachea Midline, Thyroid Normal Size and Texture Lungs: Clear to auscultation, No rhonchi, No wheeze, No rales, Diminished Cardiovascular: Regular rate, Regular Rhythm, Normal S1, Normal S2, PMI Normal Abdomen: Bowel Sounds Present, Soft, Non Tender, Non-Distended, No Hepato- splenomegaly, Obese Extremities: No clubbing, No cyanosis, Edema - Trace edema, stasis dermatitis. Skin: No rashes, No breakdown Lymphatic: No Cervical, Supraclavicular, or Inguinal Adenopathy Neurological: Cranial nerves II-XII grossly intact, Motor Exam 5/5 strength throughout Psych/Mental Status: Flat Affect Vital Signs Temp Pulse Resp BP Pulse Ox 97.5 F L 47 L 16 139/64 H 96 07/27/17 04:45 07/27/17 04:45 07/27/17 04:45 07/27/17 04:45 07/27/17 04:45 Oxygen Flow Rate 2 Oxygen Delivery Method Bi-pap Weight: 387 lb 5.635 oz Body Mass Index (BMI) 51.9 Intake and Output for Last 24 Hours 07/25/17 07/26/17 07/27/17 23:59 23:59 23:59 Intake Total 2080 / 2080 1394.4 / 1394.4 72.8 / 72.8 Output Total 2250 / 2250 850 / 850 Balance -170 / -170 544.4 / 544.4 72.8 / 72.8 Microbiology Past 72 Hours 07/24/17 13:00 Blood Culture - Preliminary Blood Culture (Wb) - Anticubital Right No growth in 48 hours. 07/24/17 10:55 Urine Culture - Preliminary Urine Catheter - Catheter Beta streptococcus Staphylococcus species Gram negative cata 07/24/17 12:45 Respiratory Panel (PCR) - Final Mucosa - Nasopharyngeal Laboratory Tests Past 24 Hrs 07/27/17 07/27/17 05:20 05:20 PT 26.7 H INR 2.6 Sodium 138 Potassium 3.9 Chloride 104 Carbon Dioxide 27.0 Anion Gap 7 BUN 24 H Creatinine 1.71 H Estim Creat Clear Calc 40.34 Est GFR (MDRD) Af Amer 50 L Est GFR (MDRD) Non-Af 42 L BUN/Creatinine Ratio 14.0 Glucose 215 H Calcium 8.1 L POC Glucose 07/27/17 07/27/17 07/26/17 06:47 02:01 22:44 POC Glucose 212 H 222 H 282 H 07/26/17 07/26/17 07/26/17 16:13 11:23 07:38 POC Glucose 297 H 303 H 229 H Assessment/Plan Active and Suspected Problems UTI (urinary tract infection) (Acute) Encephalopathy acute (Acute) Hypoglycemia (Acute) This is a 76 years old male patient admitted because of change in mental status , found to have acute cystitis complicated by acute metabolic encephalopathy as well as hypoglycemia. #1 altered mental status/acute metabolic encephalopathy: Probably due to acute cystitis in addition to hypoglycemia. Today, patient is alert and oriented ?3. CT scan brain on admission revealed no acute findings. Vital signs are stable. Resolved. Reportedly, patient came from custodial and probably he can go back to custodial later today or tomorrow. #2 acute cystitis: On IV Zosyn. Remained afebrile, other vital signs are stable. Blood culture showed no growth in 48 hours. Urine culture showed beta Streptococcus, staph species and gram-negative cata, final cultures pending. Plan to continue same treatment. #3 hypoglycemia: Resolved. Blood sugar has been in the range of 200s. He is on Levemir insulin as well as sliding scale. #4 type 2 diabetes mellitus: As mentioned above, at this time his only on Levemir and sliding scale. Blood sugar has been in the range of 200s. At home , he is on high doses of insulin U5 100. #5 hypertension: Blood pressure stable, continue losartan and metoprolol. #6 chronic respiratory failure: Multifactorial secondary to obstructive sleep apnea, morbid obesity and hypertension syndrome. He is on BiPAP at home, has been tolerating BiPAP overnight. #7 obstructive sleep apnea: On BiPAP at night. #8 stage III chronic kidney disease: Baseline creatinine has been around 1.4- 1.8 mg/dL. Today's creatinine is 1.71, stable at baseline. #9 history of PE: On Coumadin, INR is 2.6. #10 DVT prophylaxis: Subcu Lovenox twice daily because of BMI greater than 40. This note was generated with V[employer]ration software. It may contain incorrect words, spelling, and punctuation that were not noted in checking the note before signing.
[2017-07-27] MEDS: Nystatin Powder 15gm Bottle 1 APPLIC TOPICAL ×2 (08:56→22:08)
[2017-07-27] MEDS: Citalopram 40 MG TABLET PO (08:57)
[2017-07-27] MEDS: Tamsulosin HCl 0.4 MG Capsule PO (08:57)
[2017-07-27] MEDS: Metoprolol(XL)Succ 100 MG Tablet PO (08:57)
[2017-07-27] MEDS: Losartan Potassium 100 MG Tablet PO (08:57)
--- NOTE | 2017-07-27 11:00 | PN.ID_ITS ---
Patient Problems: Active and Suspected Problems UTI (urinary tract infection) (Acute) Encephalopathy acute (Acute) Hypoglycemia (Acute) Subjective: Feeling fine, no complaints, no fever, no n/v/d, no dysuria. Breathing ok. - Physical Exam General: Alert, Cooperative, No apparent distress Lungs: Clear to auscultation, Diminished Cardiovascular: Regular rate, Regular Rhythm Abdomen: Soft, Non Tender, Non-Distended, Obese Extremities: Edema Skin: No rashes Vital Signs Temp Pulse Resp BP Pulse Ox 97.8 F 65 16 142/86 H 95 07/27/17 09:00 07/27/17 09:00 07/27/17 09:00 07/27/17 09:00 07/27/17 09:00 Oxygen Flow Rate 2 Oxygen Delivery Method Room Air Weight: 175.4 kg Body Mass Index (BMI) 51.9 Intake and Output for Last 24 Hours 07/25/17 07/26/17 07/27/17 23:59 23:59 23:59 Intake Total 2080 / 2080 1394.4 / 1394.4 72.8 / 72.8 Output Total 2250 / 2250 850 / 850 Balance -170 / -170 544.4 / 544.4 72.8 / 72.8 Microbiology Past 72 Hours 07/24/17 10:55 Urine Culture - Final Urine Catheter - Catheter Streptococcus agalactiae (B) Meth. resistant Staph. aureus Pseudomonas aeroginosa 07/24/17 13:00 Blood Culture - Preliminary Blood Culture (Wb) - Anticubital Right No growth in 48 hours. 07/24/17 12:45 Respiratory Panel (PCR) - Final Mucosa - Nasopharyngeal Laboratory Tests Past 24 Hrs 07/27/17 07/27/17 05:20 05:20 PT 26.7 H INR 2.6 Sodium 138 Potassium 3.9 Chloride 104 Carbon Dioxide 27.0 Anion Gap 7 BUN 24 H Creatinine 1.71 H Estim Creat Clear Calc 40.34 Est GFR (MDRD) Af Amer 50 L Est GFR (MDRD) Non-Af 42 L BUN/Creatinine Ratio 14.0 Glucose 215 H Calcium 8.1 L POC Glucose 07/27/17 07/27/17 07/26/17 06:47 02:01 22:44 POC Glucose 212 H 222 H 282 H 07/26/17 07/26/17 16:13 11:23 POC Glucose 297 H 303 H Route of nutrition/ use of supplements: [] Nutritional Intake: [] IV Site: [] Lane Catheter: [] - Assessment/Plan Antibiotics: [] Assessment/Plan: [] Active and Suspected Problems UTI (urinary tract infection) (Acute) Encephalopathy acute (Acute) Hypoglycemia (Acute) Heavy pyuria with h.o UTI in past. Mental status much improved. Feeling well. Ucx now with 25-50k Strep and MRSA, less than 1k PsA. Has been on zosyn with no MRSA coverage. Bcx neg from admission. Since he is much better despite not having MRSA coverage, will narrow zosyn to amoxicillin 500mg tid, plan on stop date 07/31/17 for complicated strep uti. Will follow. D/w community case manager. Ok for discharge from ID perspective.
[2017-07-27 11:36] LABS: Bedside Glucose 370 mg/dL (70-110)
--- NOTE | 2017-07-27 12:01 | PN_ITS ---
Patient Problems: Active and Suspected Problems UTI (urinary tract infection) (Acute) Encephalopathy acute (Acute) Hypoglycemia (Acute) Subjective: The patient was seen and examined. Nursing staff reports no acute events overnight. He is lying in bed and appears to be sleeping, BiPAP is not on. Patient reports he does not like to wear the mask secondary to feeling bloated, like he has too much stomach air. Nursing staff reports he falls asleep throughout the day. Patient having some bradycardia overnight, as low as 39 bpm. Blood pressure is stable. Denies any current shortness of breath, cough, palpitations, abdominal pain. Objective: Recent lab data reviewed, no recent imaging to review. Patient anticoagulated on Coumadin and INR this morning 2.6. Renal function remains about the same. MRSA screening negative. Toxicology screen negative. ABG from 07/24 showed CO2 retention. Urine culture showing strep, MRSA, and Pseudomonas (<1000 CFU/ml). Respiratory panel is normal and blood culture with no growth. Chest x-ray on admission with cardiomegaly, no pleural abnormality. Hiatal hernia. - Physical Exam General: Cooperative, No apparent distress, Lethargic - arousable to voice. Falls asleep easily, during conversation., - - morbidly obese HEENT: Atraumatic, Normocephalic Oral: Moist Mucosa, No Gingival or Mucosal Lesions/ Ulcerations Neck: Supple, No Nodes, Trachea Midline, - - increased neck circumference Lungs: - - Globally diminished, no appreciable rhonchi, wheezes, or rales. Cardiovascular: Regular rate, Regular Rhythm, Normal S1, Normal S2, No murmurs, - - Distant heart sounds secondary to body habitus Abdomen: Bowel Sounds Present, Soft, Non Tender, Non-Distended, Obese Extremities: No clubbing, No cyanosis, Edema Skin: No rashes, - - Bilateral lower extremity venous stasis changes Musculoskeletal: No Tenderness to Palpation of Joints or Extremities Lymphatic: No Cervical, Supraclavicular, or Inguinal Adenopathy Neurological: Neuro grossly intact Psych/Mental Status: Flat Affect, - - Lethargy, cooperative and answering questions but falling asleep quickly Vital Signs Temp Pulse Resp BP Pulse Ox 97.8 F 49 L 16 142/86 H 95 07/27/17 09:00 07/27/17 11:37 07/27/17 09:00 07/27/17 09:00 07/27/17 09:00 Oxygen Flow Rate 2 Oxygen Delivery Method Room Air Weight: 386 lb 11.053 oz Body Mass Index (BMI) 51.9 Intake and Output for Last 24 Hours 07/25/17 07/26/17 07/27/17 23:59 23:59 23:59 Intake Total 2080 / 2080 1394.4 / 1394.4 384.8 / 384.8 Output Total 2250 / 2250 850 / 850 300 / 300 Balance -170 / -170 544.4 / 544.4 84.8 / 84.8 Microbiology Past 72 Hours 07/24/17 10:55 Urine Culture - Final Urine Catheter - Catheter Streptococcus agalactiae (B) Meth. resistant Staph. aureus Pseudomonas aeroginosa 07/24/17 13:00 Blood Culture - Preliminary Blood Culture (Wb) - Anticubital Right No growth in 48 hours. 07/24/17 12:45 Respiratory Panel (PCR) - Final Mucosa - Nasopharyngeal Laboratory Tests Past 24 Hrs 07/27/17 07/27/17 05:20 05:20 PT 26.7 H INR 2.6 Sodium 138 Potassium 3.9 Chloride 104 Carbon Dioxide 27.0 Anion Gap 7 BUN 24 H Creatinine 1.71 H Estim Creat Clear Calc 40.34 Est GFR (MDRD) Af Amer 50 L Est GFR (MDRD) Non-Af 42 L BUN/Creatinine Ratio 14.0 Glucose 215 H Calcium 8.1 L POC Glucose 07/27/17 07/27/17 07/27/17 11:18 06:47 02:01 POC Glucose 370 H 212 H 222 H 07/26/17 07/26/17 22:44 16:13 POC Glucose 282 H 297 H Assessment/Plan Active and Suspected Problems UTI (urinary tract infection) (Acute) Encephalopathy acute (Acute) Hypoglycemia (Acute) RECOMMENDATIONS: 1. Continue BiPAP with naps and nightly. His current settings may need to be empirically reduced to encourage compliance. 2. Wean supplemental oxygen to maintain saturations 88-92%. 3. Encourage incentive spirometer use and mobilize patient as tolerated 4. Continue physical therapy 5. Continue antibiotics per ID recommendations 6. Repeat outpatient polysomnogram 7. Patient can follow-up in the pulmonary clinic within 2 weeks upon discharge with DIPLOMATIC INTERPRETER. IMPRESSIONS: 1. Metabolic/infectious encephalopathy Improved with use of BiPAP therapy. Avoid sedating medications. Continue treatment for underlying cystitis. Encourage BiPAP use. 2. Compensated respiratory acidosis/concern for sleep disordered breathing Recommend continuing the use of noninvasive positive pressure ventilation with naps and nightly. Patient's family has reported his home CPAP machine is broke. They reportedly contacted [facility] for assistance. Strongly recommend repeat outpatient polysomnogram and follow-up in the pulmonary medicine clinic. Encourage incentive spirometer use and mobilize patient as tolerated. Will attempt to ascertain home pressure settings from the patient's family if able. If the patient is unable to tolerate his current pressure settings, IPAP/EPAP settings can be reduced empirically. 3. Recurrent cystitis Continue antibiotics, pending finalized culture results. ID is following, d/w Dr. King and plans to treat strep with Amoxicillin, discontinue Zosyn as patient appears to be tolerating well. 4. Super morbid obesity/chronic kidney disease/diabetes mellitus/NILO Complicates care, management, recovery and prognosis. Okay to continue baseline outpatient medications. Physical therapy to work with patient. Out of bed to chair. This note was generated with [employer] dictation software. It may contain incorrect words, spelling, and punctuation that were not noted in checking the note before signing.
[2017-07-27] MEDS: AMOXICILLIN 500 MG CAPSULE PO ×2 (13:11→22:12)
[2017-07-27 16:56] LABS: Bedside Glucose 316 mg/dL (70-110)
[2017-07-27] MEDS: Atorvastatin Calcium 40 MG Tablet PO (22:08)
[2017-07-27 22:46] LABS: Bedside Glucose 386 mg/dL (70-110)
[2017-07-28] VITALS (10 sets, daily range): BP systolic 146–178; BP diastolic 67–80; PULSE 44–55; RESP 12–20; TEMP 36.3–36.6; O2SAT 93–96
[2017-07-28 02:01] LABS: Bedside Glucose 262 mg/dL (70-110)
[2017-07-28] MEDS: AMOXICILLIN 500 MG CAPSULE PO ×2 (05:17→13:53)
[2017-07-28 05:56] LABS: Prothrombin Time (Protime)PT. 33.6 SECONDS (11.7-14.9)
[2017-07-28 06:06] LABS: International Normalized Ratio 3.5
[2017-07-28 07:01] LABS: Bedside Glucose 208 mg/dL (70-110)
--- NOTE | 2017-07-28 09:47 | CASEMGMT ---
This RN CM to bedside to speak with pt regarding HHC at this time. Pt refuses HHC at this time. Pt states has had in the past but does not feel the need for at this time. SStaten RN CM
[2017-07-28] MEDS: Citalopram 40 MG TABLET PO (10:10)
[2017-07-28] MEDS: Metoprolol(XL)Succ 100 MG Tablet PO (10:10)
[2017-07-28] MEDS: Losartan Potassium 100 MG Tablet PO (10:10)
[2017-07-28] MEDS: Tamsulosin HCl 0.4 MG Capsule PO (10:11)
[2017-07-28] MEDS: Nystatin Powder 15gm Bottle 1 APPLIC TOPICAL (10:12)
--- NOTE | 2017-07-28 10:41 | PCM.PN.ID ---
Patient Problems: Active and Suspected Problems UTI (urinary tract infection) (Acute) Encephalopathy acute (Acute) Hypoglycemia (Acute) Subjective: Feeling fine. No SOB. No abd pain, no dysuria, no rash or n/v/d with amoxicillin. - Physical Exam General: Alert, Cooperative Lungs: Clear to auscultation, Normal air movement Cardiovascular: Regular rate, Regular Rhythm Abdomen: Soft, Non Tender, Non-Distended, Obese Skin: No rashes Vital Signs Temp Pulse Resp BP Pulse Ox 97.5 F L 55 L 18 146/67 H 95 07/28/17 09:33 07/28/17 10:10 07/28/17 09:33 07/28/17 10:10 07/28/17 09:33 Oxygen Flow Rate 2 Oxygen Delivery Method Room Air Weight: 175.2 kg Body Mass Index (BMI) 51.9 Intake and Output for Last 24 Hours 07/26/17 07/27/17 07/28/17 23:59 23:59 23:59 Intake Total 1394.4 / 1394.4 864.8 / 864.8 Output Total 850 / 850 900 / 900 400 / 400 Balance 544.4 / 544.4 -35.2 / -35.2 -400 / -400 Microbiology Past 72 Hours 07/24/17 10:55 Urine Culture - Final Urine Catheter - Catheter Streptococcus agalactiae (B) Meth. resistant Staph. aureus Pseudomonas aeroginosa 07/24/17 13:00 Blood Culture - Preliminary Blood Culture (Wb) - Anticubital Right No growth in 48 hours. Laboratory Tests Past 24 Hrs 07/28/17 05:30 PT 33.6 H INR 3.5 H* POC Glucose 07/28/17 07/28/17 07/27/17 06:51 01:51 22:06 POC Glucose 208 H 262 H 386 H 07/27/17 07/27/17 16:44 11:18 POC Glucose 316 H 370 H Route of nutrition/ use of supplements: [] Nutritional Intake: [] IV Site: [] Lane Catheter: [] - Assessment/Plan Antibiotics: [] Assessment/Plan: [] Active and Suspected Problems UTI (urinary tract infection) (Acute) Encephalopathy acute (Acute) Hypoglycemia (Acute) Heavy pyuria with h.o UTI in past. Mental status much improved. Feeling well. Ucx with 25-50k Strep and MRSA, less than 1k PsA. Had been on zosyn with no MRSA coverage. Bcx neg from admission. Since he is much better despite not having MRSA coverage, narrowed zosyn to amoxicillin 500mg tid, plan on stop date 07/31/17 for complicated strep uti. Will follow. Ok for discharge from ID perspective.
[2017-07-28 11:16] LABS: Bedside Glucose 263 mg/dL (70-110)
--- NOTE | 2017-07-28 12:01 | PCM.PROGNOTE ---
Patient Problems: Active and Suspected Problems UTI (urinary tract infection) (Acute) Encephalopathy acute (Acute) Hypoglycemia (Acute) Subjective: The patient was seen and examined. He is sitting up in the chair with no acute complaints. More alert today. He is visiting with family. Notes that he has been tolerating the BiPAP at night but he would prefer not to wear it. Denies any significant cough or sputum production. Denies any shortness of breath at rest, however has baseline dyspnea on exertion. Patient denies any dizziness or lightheadedness. Objective: Patient has remained somewhat bradycardic in the upper 30s-50s. INR is supratherapeutic at 3.5 today. Blood sugars remain elevated. He remains afebrile and hemodynamically stable. Patient maintaining appropriate saturations on room air. - Physical Exam General: Alert, Oriented x3, Cooperative, No apparent distress, - - No conversational dyspnea. Obese HEENT: Atraumatic, Normocephalic Oral: Moist Mucosa, - - Crowded posterior oropharynx Neck: Supple, No Nodes, Trachea Midline Lungs: - - Clear throughout, diminished Cardiovascular: Regular rate, Regular Rhythm, Normal S1, Normal S2, No murmurs, - - Distant heart sounds secondary to body habitus Abdomen: Bowel Sounds Present, Soft, Non Tender, Obese Extremities: No clubbing, No cyanosis, Edema Skin: - - No changes from previous Musculoskeletal: No Tenderness to Palpation of Joints or Extremities Lymphatic: No Cervical, Supraclavicular, or Inguinal Adenopathy Neurological: Neuro grossly intact Psych/Mental Status: Alert and oriented to time, place, person, mood and affect Vital Signs Temp Pulse Resp BP Pulse Ox 97.5 F L 55 L 18 146/67 H 95 07/28/17 09:33 07/28/17 11:28 07/28/17 09:33 07/28/17 10:10 07/28/17 11:28 Oxygen Flow Rate 2 Oxygen Delivery Method Room Air Weight: 386 lb 3.998 oz Body Mass Index (BMI) 51.9 Intake and Output for Last 24 Hours 07/26/17 07/27/17 07/28/17 23:59 23:59 23:59 Intake Total 1394.4 / 1394.4 864.8 / 864.8 Output Total 850 / 850 900 / 900 400 / 400 Balance 544.4 / 544.4 -35.2 / -35.2 -400 / -400 Microbiology Past 72 Hours 07/24/17 10:55 Urine Culture - Final Urine Catheter - Catheter Streptococcus agalactiae (B) Meth. resistant Staph. aureus Pseudomonas aeroginosa 07/24/17 13:00 Blood Culture - Preliminary Blood Culture (Wb) - Anticubital Right No growth in 48 hours. Laboratory Tests Past 24 Hrs 07/28/17 05:30 PT 33.6 H INR 3.5 H* POC Glucose 07/28/17 07/28/17 07/28/17 11:11 06:51 01:51 POC Glucose 263 H 208 H 262 H 07/27/17 07/27/17 22:06 16:44 POC Glucose 386 H 316 H Assessment/Plan Active and Suspected Problems UTI (urinary tract infection) (Acute) Encephalopathy acute (Acute) Hypoglycemia (Acute) RECOMMENDATIONS: 1. Continue BiPAP with naps and nightly. Patient has NIPPV at home and should continue 2. Wean supplemental oxygen to maintain saturations 88-92%. 3. Encourage incentive spirometer use and mobilize patient as tolerated 4. Continue antibiotics per ID recommendations 5. Repeat outpatient polysomnogram 6. Patient can follow-up in the pulmonary clinic within 2 weeks upon discharge with [facility]. IMPRESSIONS: 1. Metabolic/infectious encephalopathy Improved with use of BiPAP therapy. Avoid sedating medications. Continue treatment for underlying cystitis. Encourage BiPAP use. No ABG needed at this time as patient is more alert and conversing without any signs of sedation. 2. Compensated respiratory acidosis/concern for sleep disordered breathing Recommend continuing the use of noninvasive positive pressure ventilation with naps and nightly. Patient's family has reported his home CPAP machine is broke. They reportedly contacted [facility] for assistance. Strongly recommend repeat outpatient polysomnogram to quantify PAP needs and follow-up in the pulmonary medicine clinic. Encourage incentive spirometer use and mobilize patient as tolerated. There is some concern that patient has bradycardia associated with hypoxemia when sleeping. His settings at home for BiPAP are high. Would not reduce secondary to probable hypoxemia. 3. Recurrent cystitis Continue antibiotics per ID recommendations. Discussed w/ Dr. King and plans to treat strep with Amoxicillin, discontinue Zosyn as patient appears to be tolerating well. 4. Super morbid obesity/chronic kidney disease/diabetes mellitus/NILO Complicates care, management, recovery and prognosis. Okay to continue baseline outpatient medications. Physical therapy to work with patient. Out of bed to chair. Encouraged weight loss which would help his breathing as well. This note was generated with [email or web address] dictation software. It may contain incorrect words, spelling, and punctuation that were not noted in checking the note before signing.
--- NOTE | 2017-07-28 12:02 | DCINST_ITS ---
- Discharge Diagnoses Current Active Problems: Current Active and Chronic Problems UTI (urinary tract infection) (Acute) Encephalopathy acute (Acute) Hypoglycemia (Acute) You will use the following diet at home:: Calorie/Carbohydrate Controlled ( specify 1200, 1400, etc) - 1800 kayla, Cardiac Your food should be the consistency of: Regular Discharge Activity: Return to Normal Activity Weight Bearing Status: Weight bearing as tolerated Call your doctor if you observe: Fever of 101 or Higher, Shortness of breath, Dizziness, Fainting spells, Chest pain, Increased palpitations (irregular heartbeat), Uncontrolled pain Additional Instructions: 1. BiPAP settings: IPAP of 27, EPAP of [address] Kauff[address]. 2. Do not take Coumadin today and tomorrow, do the blood work on July and contact your family doctor for next Coumadin dose. Allergies/Adverse Reactions: Allergies MARGIE Inhibitors Allergy (Unknown, Verified 02/07/17 23:24) Unknown cefepime Allergy (Verified 02/07/17 23:24) Other WEAKNESS & FALLING ipodate [Ipodate] Allergy (Verified 02/07/17 23:24) Shortness of breath levofloxacin [Levofloxacin] Allergy (Verified 02/07/17 23:24) Anaphylaxis lisinopril Allergy (Verified 02/07/17 23:24) Shortness of breath ofloxacin Allergy (Verified 07/24/17 12:12) Unknown Quinolones Allergy (Verified 02/07/17 23:24) Anaphylaxis Medications to take at Discharge Atorvastatin Calcium [Lipitor] 40 mg PO QHS 05/29/15 Citalopram [Celexa] 40 mg PO DAILY 05/29/15 Docusate Sodium [Colace] 200 mg PO QODAY PRN 05/29/15 Fluticasone 0.05% [Flonase Nasal [place]] 1 spray NASAL BID PRN 05/29/15 Tamsulosin HCl [Flomax] 0.4 mg PO DAILY 07/08/16 Metoprolol Succinate 100 mg PO DAILY 02/08/17 Insulin Detemir [Levemir FlexPen] 30 units SC BREAKFAST 07/24/17 Losartan Potassium [Cozaar] 100 mg PO DAILY 07/24/17 Warfarin Sodium [Coumadin] 10 mg PO DAILY 07/24/17 Warfarin [Coumadin] 5 mg PO DAILY 07/24/17 Amoxicillin [Amoxil] 500 mg PO Q8 #12 cap 07/28/17 Insulin U-500 [Humulin R U-500 ([facility])] 60 unit SC BREAKFAST #0 07/28/17 Insulin U-500 [Humulin R U-500 ([facility])] 60 unit SC DINNER #0 07/28/17 Insulin U-500 [Humulin R U-500 ([facility])] 60 unit SC LUNCH #0 07/28/17 The following prescriptions were given: Amoxicillin [Amoxil] 500 mg PO Q8 #12 cap Primary Care Physician: Wili Nelson DO [Primary Care Provider] - Please follow up with your Primary Care Physician in: 1 weeks. Please Follow Up With: Ra Kauffman MD When: 2 weeks.
--- NOTE | 2017-07-28 15:03 | NURSING ---
CALLED FOR DC INSTRUCTIONS GIVEN SHE STATES WILL CALL FOR A RIDE
[2017-07-28 17:11] LABS: Bedside Glucose 284 mg/dL (70-110)
--- NOTE | 2017-07-29 11:54 | PCM.DC.SUM ---
Discharge Date and Diagnosis Date of Admission: 07/24/17 Date of Discharge: 07/28/17 - Primary Discharge Diagnosis #1 acute metabolic encephalopathy. #2 polymicrobial acute cystitis. #3 hypoglycemia. - Secondary Discharge Diagnosis Chronic Problems History of kidney stones (Chronic) COPD (chronic obstructive pulmonary disease) (Chronic) Type II diabetes mellitus, uncontrolled (Chronic) History of depression (Chronic) History of other venous thrombosis and embolism (Chronic) HLD (hyperlipidemia) (Chronic) HTN (hypertension) (Chronic) Morbid obesity (Chronic) NILO (obstructive sleep apnea) (Chronic) Chronic renal failure, stage 3 (moderate) (Chronic) Bifascicular bundle branch block (Chronic) Colon polyps (Chronic) Family history of colon cancer (Chronic) Abnormal electrocardiogram (Chronic) Hospital Course and Treatment Imaging Results: Clinical Impression(s) from Imaging Studies Brain CT 07/24/17 08:13 IMPRESSION: Chronic involutional changes of the brain. Electronically Signed: Seymour Shelley MD at 9:37 EST Tel [phone], Service support , Chest X-Ray 07/24/17 08:13 IMPRESSION: Cardiomegaly. Electronically Signed: Seymour Shelley MD at 8:49 EST Tel [phone], Service support , Dr. Kauffman,/Dr. Malone, pulmonology. Dr. Pickard, infectious disease. Operations: None Procedures: None Summary of Care Provided: Patient seen and examined on the day of discharge and appeared to be stable to be discharged home. His mentation has been stable and he remained oriented ?3. He has been tolerating BiPAP overnight and remained on oxygen during daytime which is his baseline. His vital signs are stable. - Physical Exam General: Alert, Oriented x3, Cooperative, mild shortness of breath. HEENT: Atraumatic, PERRLA, EOMI. Neck: Supple, No JVD, Negative Carotid Bruits, Trachea Midline, Thyroid Normal. Lungs: Decreased breath sounds bilateral, No rhonchi, No wheeze, No rales. Cardiovascular: Regular rate, Regular Rhythm, Normal S1, Normal S2, PMI Normal. Abdomen: Bowel Sounds Present, Soft, Non Tender, obese, Non-Distended, No Hepato-splenomegaly. Extremities: No clubbing, No cyanosis, trace edema, stasis dermatitis. Skin: No rashes, No breakdown Neurological: Neuro grossly intact Hospital course: The patient is a 76 year old M admitted because of change in mental status, found to have acute cystitis with multiple microorganisms and urine culture, complicated by acute metabolic encephalopathy and hypoglycemia. Patient was treated with IV Zosyn for acute cystitis. Urine culture revealed multiple organisms including Streptococcus agalactiae, MRSA and pseudomonas aeruginosa. Patient's mentation improved, he became alert and oriented ?3. His blood culture showed no growth in 48 hours. Respiratory panel for viruses were negative. He had a history of chronic respiratory failure which is multifactorial secondary to obstructive sleep apnea, morbid obesity and hypoventilation syndrome and patient has been on BiPAP at home. He was continued on BiPAP during this hospital stay but his BiPAP settings were increased according to pulmonology. Infectious disease consulted and recommended to discharge patient on oral amoxicillin. On admission, patient found to have an episode of hypoglycemia and he was on high doses of U5 100 insulin. Patient discharged home in a stable medical condition, discharged on amoxicillin 500 mg p.o. 3 times daily with compression date of July 31, 2017, dose of U5 100 is not decreased down to 60 units before each meal, previously he was on 100 units before each meal discharge INR was 3.5, patient was instructed to not take Coumadin on the day of discharge and the after, order given to repeat pro time and INR on , July 31, 2017 and to call his PCP for next Coumadin dose, recommended follow-up with PCP in 1 week and follow-up with pulmonology 2 weeks. BiPAP settings changed according to pulmonology to IPAP of 27 and EPAP of 21. Discharge Activity: Return to Normal Activity Weight Bearing Status: Weight bearing as tolerated Call your doctor if you observe: Fever of 101 or Higher, Shortness of breath, Dizziness, Fainting spells, Chest pain, Increased palpitations (irregular heartbeat), Uncontrolled pain Home Medications: Medications to take at Discharge Atorvastatin Calcium [Lipitor] 40 mg PO QHS 05/29/15 Citalopram [Celexa] 40 mg PO DAILY 05/29/15 Docusate Sodium [Colace] 200 mg PO QODAY PRN 05/29/15 Fluticasone 0.05% [Flonase Nasal [place]] 1 spray NASAL BID PRN 05/29/15 Tamsulosin HCl [Flomax] 0.4 mg PO DAILY 07/08/16 Metoprolol Succinate 100 mg PO DAILY 02/08/17 Insulin Detemir [Levemir FlexPen] 30 units SC BREAKFAST 07/24/17 Losartan Potassium [Cozaar] 100 mg PO DAILY 07/24/17 Warfarin Sodium [Coumadin] 10 mg PO DAILY 07/24/17 Warfarin [Coumadin] 5 mg PO DAILY 07/24/17 Amoxicillin [Amoxil] 500 mg PO Q8 #12 cap 07/28/17 Insulin U-500 [Humulin R U-500 ([facility])] 60 unit SC BREAKFAST #0 07/28/17 Insulin U-500 [Humulin R U-500 ([facility])] 60 unit SC DINNER #0 07/28/17 Insulin U-500 [Humulin R U-500 ([facility])] 60 unit SC LUNCH #0 07/28/17 Following Prescrptions Were Given to Patient: Amoxicillin [Amoxil] 500 mg PO Q8 #12 cap Primary Care Physician: Wili Nelson DO [Primary Care Provider] - Please follow up with your Primary Care Physician in: 1 weeks. Please Follow Up With: Ra Kauffman MD When: 2 weeks. Disposition: Home Minutes spent on discharge:: 34 Patient Condition:: Stable Meaningful Use Info Meaningful Use Diagnoses (Choose all that apply): None applicable Code Visit Inpatient E&M: 46222 Disch Hosp
--- NOTE | 2017-07-29 12:05 | DS.PCM_ITS ---
Discharge Date and Diagnosis Date of Admission: 07/24/17 Date of Discharge: 07/28/17 - Primary Discharge Diagnosis #1 acute metabolic encephalopathy. #2 polymicrobial acute cystitis. #3 hypoglycemia. - Secondary Discharge Diagnosis Chronic Problems History of kidney stones (Chronic) COPD (chronic obstructive pulmonary disease) (Chronic) Type II diabetes mellitus, uncontrolled (Chronic) History of depression (Chronic) History of other venous thrombosis and embolism (Chronic) HLD (hyperlipidemia) (Chronic) HTN (hypertension) (Chronic) Morbid obesity (Chronic) NILO (obstructive sleep apnea) (Chronic) Chronic renal failure, stage 3 (moderate) (Chronic) Bifascicular bundle branch block (Chronic) Colon polyps (Chronic) Family history of colon cancer (Chronic) Abnormal electrocardiogram (Chronic) Hospital Course and Treatment Imaging Results: Clinical Impression(s) from Imaging Studies Brain CT 07/24/17 08:13 IMPRESSION: Chronic involutional changes of the brain. Electronically Signed: Seymour Shelley MD at 9:37 EST Tel [phone], Service support , Chest X-Ray 07/24/17 08:13 IMPRESSION: Cardiomegaly. Electronically Signed: Seymour Shelley MD at 8:49 EST Tel [phone], Service support , Dr. Kauffman,/Dr. Malone, pulmonology. Dr. Pickard, infectious disease. Operations: None Procedures: None Summary of Care Provided: Patient seen and examined on the day of discharge and appeared to be stable to be discharged home. His mentation has been stable and he remained oriented ?3. He has been tolerating BiPAP overnight and remained on oxygen during daytime which is his baseline. His vital signs are stable. - Physical Exam General: Alert, Oriented x3, Cooperative, mild shortness of breath. HEENT: Atraumatic, PERRLA, EOMI. Neck: Supple, No JVD, Negative Carotid Bruits, Trachea Midline, Thyroid Normal. Lungs: Decreased breath sounds bilateral, No rhonchi, No wheeze, No rales. Cardiovascular: Regular rate, Regular Rhythm, Normal S1, Normal S2, PMI Normal. Abdomen: Bowel Sounds Present, Soft, Non Tender, obese, Non-Distended, No Hepato -splenomegaly. Extremities: No clubbing, No cyanosis, trace edema, stasis dermatitis. Skin: No rashes, No breakdown Neurological: Neuro grossly intact Hospital course: The patient is a 76 year old M admitted because of change in mental status, found to have acute cystitis with multiple microorganisms and urine culture, complicated by acute metabolic encephalopathy and hypoglycemia. Patient was treated with IV Zosyn for acute cystitis. Urine culture revealed multiple organisms including Streptococcus agalactiae, MRSA and pseudomonas aeruginosa. Patient's mentation improved, he became alert and oriented ?3. His blood culture showed no growth in 48 hours. Respiratory panel for viruses were negative. He had a history of chronic respiratory failure which is multifactorial secondary to obstructive sleep apnea, morbid obesity and hypoventilation syndrome and patient has been on BiPAP at home. He was continued on BiPAP during this hospital stay but his BiPAP settings were increased according to pulmonology. Infectious disease consulted and recommended to discharge patient on oral amoxicillin. On admission, patient found to have an episode of hypoglycemia and he was on high doses of U5 100 insulin. Patient discharged home in a stable medical condition, discharged on amoxicillin 500 mg p.o. 3 times daily with compression date of July 31, 2017 , dose of U5 100 is not decreased down to 60 units before each meal, previously he was on 100 units before each meal discharge INR was 3.5, patient was instructed to not take Coumadin on the day of discharge and the after, order given to repeat pro time and INR on , July 31, 2017 and to call his PCP for next Coumadin dose, recommended follow-up with PCP in 1 week and follow- up with pulmonology 2 weeks. BiPAP settings changed according to pulmonology to IPAP of 27 and EPAP of 21. Discharge Activity: Return to Normal Activity Weight Bearing Status: Weight bearing as tolerated Call your doctor if you observe: Fever of 101 or Higher, Shortness of breath, Dizziness, Fainting spells, Chest pain, Increased palpitations (irregular heartbeat), Uncontrolled pain Home Medications: Medications to take at Discharge Atorvastatin Calcium [Lipitor] 40 mg PO QHS 05/29/15 Citalopram [Celexa] 40 mg PO DAILY 05/29/15 Docusate Sodium [Colace] 200 mg PO QODAY PRN 05/29/15 Fluticasone 0.05% [Flonase Nasal [place]] 1 spray NASAL BID PRN 05/29/15 Tamsulosin HCl [Flomax] 0.4 mg PO DAILY 07/08/16 Metoprolol Succinate 100 mg PO DAILY 02/08/17 Insulin Detemir [Levemir FlexPen] 30 units SC BREAKFAST 07/24/17 Losartan Potassium [Cozaar] 100 mg PO DAILY 07/24/17 Warfarin Sodium [Coumadin] 10 mg PO DAILY 07/24/17 Warfarin [Coumadin] 5 mg PO DAILY 07/24/17 Amoxicillin [Amoxil] 500 mg PO Q8 #12 cap 07/28/17 Insulin U-500 [Humulin R U-500 ([facility])] 60 unit SC BREAKFAST #0 07/28/17 Insulin U-500 [Humulin R U-500 ([facility])] 60 unit SC DINNER #0 07/28/17 Insulin U-500 [Humulin R U-500 ([facility])] 60 unit SC LUNCH #0 07/28/17 Following Prescrptions Were Given to Patient: Amoxicillin [Amoxil] 500 mg PO Q8 #12 cap Primary Care Physician: Wili Nelson DO [Primary Care Provider] - Please follow up with your Primary Care Physician in: 1 weeks. Please Follow Up With: Ra Kauffman MD When: 2 weeks. Disposition: Home Minutes spent on discharge:: 34 Patient Condition:: Stable Meaningful Use Info Meaningful Use Diagnoses (Choose all that apply): None applicable Code Visit Inpatient E&M: 41574 Disch Hosp
== END 2017-07-28 18:00 | disposition home or self-care (01) | DRG 689 ==
LOC: ED 09:57 → MS3 10:59 → ICU 16:13 → PCU 07-27 06:59 → ICU 07-27 08:17 → PCU 07-27 08:18
PROVIDERS: Internal Medicine Critical Care Medicine; Admitting Provider Internal Medicine; Emergency Provider Emergency Medicine; Family Provider Family Medicine; PCP Family Medicine; Visit Provider Hospitalist
DX: N30.00 Acute cystitis without hematuria (principal); G93.41 Metabolic encephalopathy; J96.11 Chronic respiratory failure with hypoxia; E87.2 Acidosis; E66.2 Morbid (severe) obesity with alveolar hypoventilation; Z68.43 Body mass index [BMI] 50.0-59.9, adult; B95.7 Other staphylococcus as the cause of diseases classified elsewhere; B95.1 Streptococcus, group B, as the cause of diseases classified elsewhere; E11.21 Type 2 diabetes mellitus with diabetic nephropathy; E11.649 Type 2 diabetes mellitus with hypoglycemia without coma; J44.9 Chronic obstructive pulmonary disease, unspecified; E11.22 Type 2 diabetes mellitus with diabetic chronic kidney disease; N18.3 Chronic kidney disease, stage 3 (moderate); F32.9 Major depressive disorder, single episode, unspecified; E78.5 Hyperlipidemia, unspecified; I44.4 Left anterior fascicular block; I12.9 Hypertensive chronic kidney disease with stage 1 through stage 4 chronic kidney disease, or unspecified chronic kidney disease; I45.4 Nonspecific intraventricular block; Z80.0 Family history of malignant neoplasm of digestive organs; Z86.711 Personal history of pulmonary embolism; Z87.440 Personal history of urinary (tract) infections; Z79.4 Long term (current) use of insulin; Z87.442 Personal history of urinary calculi
CPT/HCPCS: 36415; 36600; 70450; 71045; 80048; 80053; 80307; 81001; 82140; 82803; 82962; 83605; 83735; 84443; 84484; 85025; 85027; 85610; 87040; 87077; 87086; 87088; 87186; 87633; 87641; 93005; 94002; 94003; 97110; 97116; 97162; 97166; 97535; 97802; 99285; J7030; J7040; A4216; J2405

== ENCOUNTER 2017-08-04 19:09 | Inpatient (IN) | payer MEDICARE, OTHER, SELFPAY ==
[2017-08-04] VITALS (7 sets, daily range): BP systolic 133–173; BP diastolic 66–76; PULSE 47–74; RESP 13–20; TEMP 36.5–36.8; O2SAT 94–98; BMI 52.9; BMI 51.2
--- NOTE | 2017-08-04 19:56 | CT_ITS ---
STUDY: CT ABDOMEN AND PELVIS WITHOUT CONTRAST REASON FOR EXAM: Male, 76 years old. Right-sided abdominal pain, UTI. RADIATION DOSAGE (If Supplied By Facility): CTDIvol = ( 24.18 ) mGy, DLP = ( 1280.61 ) mGycm TECHNIQUE: Transaxial images were obtained from the dome of the diaphragm to the symphysis pubis without oral contrast, and without intravenous contrast. Sagittal and coronal images were reconstructed. Individualized dose optimization techniques were used for this CT. COMPARISON: 24 February 2017. FINDINGS: Mild basilar atelectatic changes are present. Stable left lower lobe sub-5 mm nodes are present as seen on series 2 image 5 and image 12. Mild cardiomegaly is present. Normal liver. The gallbladder is contracted. Normal spleen. There is diffuse atrophy of the pancreas. Normal bilateral adrenal glands. There is moderate cortical atrophy of the right kidney, consistent with chronic medical renal disease. Right superior pole exophytic cyst is present measuring approximately 3.9 cm. There is moderate cortical atrophy of the left kidney, consistent with chronic medical renal disease. Posterior left hypodense cyst is noted similar to prior 2017 exam measuring 2.6 cm. Normal visualized stomach. Normal small intestine. Normal colon. The appendix is visualized and appears normal. Normal abdominal aorta. Normal inferior vena cava. Normal retroperitoneum. Bladder is largely contracted. There are prostatic calcifications. There is a left-sided inguinal hernia containing adipose tissue. Normal osseous structures. CT/Abdomen/Pelvis without Cont IMPRESSION: 1. No evidence of acute abdominal process or focal inflammation. No evidence of bowel dilatation or air-fluid levels to suggest ileus versus obstruction. Stable renal cysts compared to 2017 exam. Electronically Signed: Juanito Case DO at 21:28 EST , Service support ,
--- NOTE | 2017-08-04 20:10 | RAD_ITS ---
STUDY: X-RAY CHEST REASON FOR EXAM: Male, 76 years old. Shortness of breath. TECHNIQUE: Single PA view of the chest. COMPARISON: 24 July 2017 FINDINGS: Mild prominent interstitial markings are present. There is no demonstrated pleural abnormality. There is mild cardiac enlargement. Normal mediastinum and denys. All prominent pulmonary vascularity is noted. Normal visualized aortic arch and descending thoracic aorta. Normal visualized thoracic spine. Normal visualized ribs, clavicles, and shoulders. There is no demonstrated abnormality of the visualized soft tissue structures of the upper abdomen. RAD/Chest 1 View (Portable) IMPRESSION: Cardiomegaly with mild prominent pulmonary vascular and interstitial markings with early CHF not excluded. No large focal airspace disease. Electronically Signed: Juanito Case DO at 20:42 EST , Service support ,
[2017-08-04 20:42] LABS: Absolute Neutrophil Count 6.1 X10^3/uL (2.0-7.7); Basophil# 0.04 X10^3/uL; Basophil% 0.5 % (0-1); Eosinophil# 0.29 X10^3/uL; Eosinophils% 3.4 % (0-5); Hematocrit 41.1 % (40-54); Hemoglobin 13.5 g/dl (13.0-16.5); Lymphocyte % 14.2 % (19-41); Mean Corp Hgb Conc 32.8 g/gl (32-36); Mean Corpuscular Hgb 28.7 pg (27.0-32.0); Mean Corpuscular Volume 87.4 fL (80-94); Mean Platelet Vol. 9.9 fl (6.2-12.0); Monocyte# 0.86 X10^3/uL; Monocyte% 10.1 % (0-10); Neutrophil # 6.06 X10^3/uL (2.7-7.7); Neutrophil % 71.4 % (47-70); Platelet Count 244 K/mm3 (150-450); RBC Distribution Width CV 13.8 % (11.6-14.6); RBC Distribution Width SD 42.6 fl (35.1-43.9); White Blood Count 8.5 K/mm3 (4.4-11.0)
[2017-08-04 20:44] LABS: POSITIVE COUNT NO; POSITIVE DIFFERENTIAL NO; POSITIVE MORPHOLOGY NO
[2017-08-04 20:55] LABS: International Normalized Ratio 1.2; Prothrombin Time (Protime)PT. 14.4 SECONDS (11.7-14.9)
[2017-08-04 20:59] LABS: AST(SGOT) 13 U/L (15-37); Alanine Aminotransfer ALT/SGPT 20 U/L (16-61); Albumin, Serum 2.8 g/dL (3.2-5.0); Alkaline Phosphatase 89 U/L (45-117); Anion Gap 10 (5-15); BUN 23 mg/dL (7-18); Bilirubin, Direct 0.15 mg/dL (0.00-0.30); Calcium,Total 8.7 mg/dL (8.5-10.1); Chloride 108 mmol/L (98-107); Creatinine, Serum 1.77 mg/dL (0.70-1.30); EST Glomerular Filtration Rate 40 mL/min (>60); Est Glom Filt Rate - Afr Amer 48 mL/min (>60); Estimated Creatinine Clearance 38.97 ml/min; Globulin 4.5 g/dL (2.2-4.2); Glucose 114 mg/dL (74-106); Potassium 4.1 mmol/L (3.5-5.1); Protein, Total 7.3 g/dL (6.4-8.2); Sodium Level 142 mmol/L (136-145)
[2017-08-04 21:35] LABS: Mucous, Urine 0 SEEN /hpf (<or=2+)
[2017-08-04 21:36] LABS: Color, Urine Yellow (Yellow); Glucose, Dipstick Normal (Normal); Ketone-Dipstick Negative (Negative); Leukocyte Esterase-Dipstick 500 /ul (Negative); Nitrite-Dipstick Negative (Negative); Occult Blood-Urine 50 /ul (Negative); Protein-Dipstick 100 mg/dl (Negative); Urine Bilirubin Dipstick Negative (Negative); Urine Clarity Sl. Cloudy (Clear); Urine Urobilinogen Normal (Normal)
[2017-08-04 21:43] LABS: Amorphous Sediment 1+ URATE; Bacteria RARE /hpf (None Seen); Red Blood Cells-Urine 0-5 SEEN /hpf (0-5); Squamous Epithelial Cells - UA 0-5 SEEN /hpf (0-5); White Blood Cells >100 SEEN /hpf (0-5); Yeast-Urine RARE /hpf (None Seen)
[2017-08-04] MEDS: 0.9% Normal Saline 1,000 ML 15 ML IV (21:45)
--- NOTE | 2017-08-04 21:53 | EKG12_ITS ---
Test Reason : BRADYCARDIA Blood Pressure : / mmHG Vent. Rate : 055 BPM Atrial Rate : 055 BPM P-R Int : 246 ms QRS Dur : 152 ms QT Int : 526 ms P-R-T Axes : -08 -59 015 degrees QTc Int : 503 ms Sinus bradycardia with marked sinus arrhythmia with 1st degree A-V block Left axis deviation Right bundle branch block Inferior infarct , age undetermined Abnormal ECG Confirmed by SUMMER RAZO, KARISSA ([id number]), telegraph editor RONEL NAVAS ([id number]) on 08/06/2017 1:05:51 PM Referred By: KAREN Confirmed By:KARISSA WHEELER MD
--- NOTE | 2017-08-04 22:28 | ED.DCSUM_ITS ---
- ER Visit Summary Date of Service: 08/04/17 Chief Complaint: UTI and weakness History of Present Illness: The patient is a 76 M who was admitted to the hospital July 24 for UTI and encephalopathy. He is on IV Zosyn in the hospital and was discharged on amoxicillin. He has had increased weakness, worse today to the point where he was too weak to even sit up. He is complaining of right lateral abdominal wall pain. does state they gave him Benadryl earlier tonight for some sinus drainage. She denies nausea or vomiting. He denies fever at home. Physical Examination: Vital signs are significant for bradycardia with a heart rate of 50, otherwise normal. Patient is an obese male sitting upright in bed. He appears ill but in no acute distress. Head and neck examination is unremarkable. Heart is regular rhythm but bradycardic. Lung sounds are grossly clear but diminished at the bases secondary to body habitus. Abdomen is soft, obese, with no reproducible tenderness. He has no CVA tenderness on exam. Neuro exam patient is alert and does answer questions appropriately. He does appear fatigued and tired. Test Results: Portable chest x-ray reveals cardiomegaly with no focal airspace disease. CT the flank shows no acute process. EKG is sinus bradycardia at 55 bpm. CBC is normal. Chemistry studies reveal chronic renal insufficiency with a creatinine 1.77. LFTs are unremarkable. INR is 1.2. Urinalysis continues to show greater than 100 white blood cells. Rare bacteria is noted. Blood and urine cultures were sent. Emergency Department Course and Treatment: Once blood and urine cultures were sent, patient was given a dose of IV Zosyn since he responded well to that in the past. Family states that in the past he has required PICC line for IV antibiotics as he does not seem to clear infections with oral antibiotics. This may or may not be required at this time, but the patient has currently had a setback at home and is not doing well. We will await urine and blood cultures. At this time patient is too weak to go home. Treatment Plan: [] Disposition: Admit Impression: 1. UTI 2. Generalized weakness This note was generated with [employer] dictation software. It may contain incorrect words, spelling, and punctuation that were not noted in review of the chart prior to signing ED Disposition - Plan for ED Patient: Chief Complaint: Complaint Referrals: Wili Nelson DO [Primary Care Provider] -
--- NOTE | 2017-08-04 23:02 | PCM.HP.STD ---
Problem List (1) COPD (chronic obstructive pulmonary disease) Status: Chronic (2) Type II diabetes mellitus, uncontrolled Status: Chronic Qualifiers: (3) History of depression Status: Chronic (4) HLD (hyperlipidemia) Status: Chronic (5) HTN (hypertension) Status: Chronic (6) Morbid obesity Status: Chronic (7) NILO (obstructive sleep apnea) Status: Chronic (8) Chronic renal failure, stage 3 (moderate) Status: Chronic History of Present Illness Date of Admission: 08/04/17 Chief Complaint: Weakness. The patient is a 76 year old M with past medical history as mentioned above presented to the emergency room because of weakness. The patient is poor informant and was not able to provide good history. Patient's and daughter were at the bedside and they were not very helpful in terms of providing good history. According to the patient's , patient has been weak and not able to ambulate since yesterday. She mentioned that he has been sleepy and lethargic most of his time. The patient himself complained of being weak and not able to move or ambulate at home. He denied any specific symptoms. He was discharged from the hospital a week ago and he was admitted for acute cystitis and hypoglycemia. During that admission, I saw the patient and upon discharge, I spoke with the patient about going to long-term facility because of weakness and difficulty ambulating but he refused. Patient denies fever or chills. He denied chest pain or shortness of breath. Denied cough or sputum production. He complained of left flank pain. He had a history of COPD and chronic respiratory failure and he has been on oxygen at home. He had history of obstructive sleep apnea and he has been on BiPAP at home but his BiPAP machine is broken. He has a history of uncontrolled type 2 diabetes mellitus and he has been on high doses of insulin. He has a history of hypertension and he has been on metoprolol and losartan and his blood pressure is under reasonable control. In the emergency room, his blood pressure was slightly elevated and his heart rate has been in the 50s, he was afebrile and pulse ox was 95% on room air. His routine blood work is remarkable for creatinine of 1.77 which is chronic. Urinalysis revealed cloudy urine, 500 leukocyte esterase, negative for nitrite, there was more than 100 WBCs and rare bacteria. During his recent admission, urine culture revealed Streptococcus agalactiae, MRSA and pseudomonas aeruginosa. He is being admitted for polymicrobial acute cystitis with failure of outpatient therapy, generalized weakness, physical debility and functional decline. Past Medical History Past Medical History (Chronic Problems): Chronic Problems History of kidney stones (Chronic) COPD (chronic obstructive pulmonary disease) (Chronic) Type II diabetes mellitus, uncontrolled (Chronic) History of depression (Chronic) History of other venous thrombosis and embolism (Chronic) HLD (hyperlipidemia) (Chronic) HTN (hypertension) (Chronic) Morbid obesity (Chronic) NILO (obstructive sleep apnea) (Chronic) Chronic renal failure, stage 3 (moderate) (Chronic) Bifascicular bundle branch block (Chronic) Colon polyps (Chronic) Family history of colon cancer (Chronic) Allergies MARGIE Inhibitors Allergy (Unknown, Verified 08/04/17 19:15) Unknown cefepime Allergy (Verified 08/04/17 19:15) Other WEAKNESS & FALLING ipodate [Ipodate] Allergy (Verified 08/04/17 19:15) Shortness of breath levofloxacin [Levofloxacin] Allergy (Verified 08/04/17 19:15) Anaphylaxis lisinopril Allergy (Verified 08/04/17 19:15) Shortness of breath ofloxacin Allergy (Verified 08/04/17 19:15) Unknown Quinolones Allergy (Verified 08/04/17 19:15) Anaphylaxis Home Medications: Ambulatory Orders Medication Instructions Recorded Atorvastatin Calcium [Lipitor] 40 mg PO QHS 05/29/15 Citalopram [Celexa] 40 mg PO DAILY 05/29/15 Docusate Sodium [Colace] 200 mg PO QODAY PRN 05/29/15 Fluticasone 0.05% [Flonase Nasal 1 spray NASAL BID PRN 05/29/15 [place]] Tamsulosin HCl [Flomax] 0.4 mg PO DAILY 07/08/16 Metoprolol Succinate 100 mg PO DAILY 02/08/17 Losartan Potassium [Cozaar] 100 mg PO DAILY 07/24/17 Amoxicillin [Amoxil] 500 mg PO Q8 #12 cap 07/28/17 Insulin U-500 [Humulin R U-500 60 unit SC BREAKFAST #0 07/28/17 ([facility])] Insulin U-500 [Humulin R U-500 60 unit SC DINNER #0 07/28/17 ([facility])] Insulin U-500 [Humulin R U-500 60 unit SC LUNCH #0 07/28/17 ([facility])] Surgical History: - - Circumcision, excision of kidney stone Psychiatric History: Depression Lives: With Family Smoking Status: Former smoker Alcohol: None Drugs: None - *Family History Maternal History Items: Cancer - Patient's mother of cancer but he is not sure what kind of cancer. Paternal History Items: Cancer - Father of colon cancer Offspring History Items: - - He has a son who is morbidly obese and suffers from breathing problems and heart problems. Review of Systems Constitutional: Reports: Anorexia, Weakness, Fatigue. Denies: Chills, Fever Eyes: Denies: Blurred vision, Double vision, Drainage, Redness HEENT: Denies: Difficulty Hearing, Ear Pain, Eye Pain, Nasal Congestion, Sore Throat Cardiovascular: Denies: Chest Pain, Chest Pressure, Chest Tightness, Heaviness, Light Headedness, Palpitations, Syncope Respiratory: Denies: Cough, Pleuritic Pain, Shortness of Breath, Sputum production, Wheezing Gastrointestinal: Reports: Abdominal Pain, - - Reported mild right flank pain.. Denies: Constipation, Diarrhea, Hematochezia, Nausea, Vomiting Genitourinary: Denies: Dysuria, Frequency, Hematuria Musculoskeletal: Denies: Arm Pain, Back Pain, Foot Pain Skin: Denies: Dryness, Rash Neurological: Denies: Balance problems, Double vision, Change in Speech, Headaches, Incoordination, Numbness Psychiatric: Denies: Anxiety, Depression Endocrine: Denies: Change in Body Habitus, Polydipsia VTE Information - Inpt Only VTE Present on Admission: No VTE Mechan Device Prophylaxis: None VTE Pharm Prophylaxis ordered?: Yes - Physical Exam General: Alert, Oriented x3, Cooperative, No apparent distress HEENT: Atraumatic, PERRLA, EOMI Oral: Moist Mucosa, No Gingival or Mucosal Lesions/ Ulcerations Neck: Supple, No JVD, Negative Carotid Bruits, Trachea Midline, Thyroid Normal Size and Texture Lungs: Clear to auscultation, No rhonchi, No wheeze, No rales, Diminished Cardiovascular: Regular rate, Regular Rhythm, Normal S1, Normal S2, No murmurs, Bradycardic Abdomen: Bowel Sounds Present, Soft, Non Tender, Non-Distended, No Hepato-splenomegaly, Obese Extremities: No clubbing, No cyanosis, Edema - Trace edema, stasis dermatitis. Skin: No rashes, No breakdown Lymphatic: No Cervical, Supraclavicular, or Inguinal Adenopathy Neurological: Cranial nerves II-XII grossly intact, Neuro grossly intact Psych/Mental Status: Flat Affect Vital Signs Temp Pulse Resp BP Pulse Ox 98.1 F 50 L 19 H 173/70 H 94 08/04/17 19:10 08/04/17 22:54 08/04/17 22:54 08/04/17 22:54 08/04/17 22:54 Oxygen Delivery Method Room Air Weight: 390 lb Body Mass Index (BMI) 52.9 Finger Stick Blood Glucose 216 Laboratory Tests Past 24 Hrs 08/04/17 08/04/17 08/04/17 20:10 20:10 20:10 WBC 8.5 RBC 4.70 Hgb 13.5 Hct 41.1 MCV 87.4 MCH 28.7 MCHC 32.8 RDW 13.8 RDW Differential 42.6 Plt Count 244 MPV 9.9 Immature Gran % (Auto) 0.400 Neut % (Auto) 71.4 H Lymph % (Auto) 14.2 L [place] % (Auto) 10.1 H Eos % (Auto) 3.4 Baso % (Auto) 0.5 Absolute Neuts (auto) 6.1 Absolute Lymphs (auto) 1.20 Total Counted Not Reportable PT 14.4 INR 1.2 Sodium 142 Potassium 4.1 Chloride 108 H Carbon Dioxide 24.0 Anion Gap 10 BUN 23 H Creatinine 1.77 H Estim Creat Clear Calc 38.97 Est GFR (MDRD) Af Amer 48 L Est GFR (MDRD) Non-Af 40 L BUN/Creatinine Ratio 13.0 Glucose 114 H Calcium 8.7 Total Bilirubin 0.70 Direct Bilirubin 0.15 AST 13 L ALT 20 Alkaline Phosphatase 89 Total Protein 7.3 Albumin 2.8 L Globulin 4.5 H Urine Color Urine Clarity Urine pH Ur Specific [place] Urine Protein Urine Glucose (UA) Urine Ketones Urine Occult Blood Urine Nitrite Urine Bilirubin Urine Urobilinogen Ur Leukocyte Esterase Urine RBC Urine WBC Ur Squamous Epith Cells Amorphous Sediment Urine Bacteria Urine Mucus Urine Yeast 08/04/17 21:25 WBC RBC Hgb Hct MCV MCH MCHC RDW RDW Differential Plt Count MPV Immature Gran % (Auto) Neut % (Auto) Lymph % (Auto) [place] % (Auto) Eos % (Auto) Baso % (Auto) Absolute Neuts (auto) Absolute Lymphs (auto) Total Counted PT INR Sodium Potassium Chloride Carbon Dioxide Anion Gap BUN Creatinine Estim Creat Clear Calc Est GFR (MDRD) Af Amer Est GFR (MDRD) Non-Af BUN/Creatinine Ratio Glucose Calcium Total Bilirubin Direct Bilirubin AST ALT Alkaline Phosphatase Total Protein Albumin Globulin Urine Color Yellow Urine Clarity Sl. Cloudy Urine pH 5.0 Ur Specific [place] 1.020 Urine Protein 100 H Urine Glucose (UA) Normal Urine Ketones Negative Urine Occult Blood 50 H Urine Nitrite Negative Urine Bilirubin Negative Urine Urobilinogen Normal Ur Leukocyte Esterase 500 H Urine RBC 0-5 SEEN Urine WBC >100 SEEN Ur Squamous Epith Cells 0-5 SEEN Amorphous Sediment 1+ URATE Urine Bacteria RARE Urine Mucus 0 SEEN Urine Yeast RARE Clinical Impression(s) from Imaging Studies Abdomen/Pelvis CT 08/04/17 19:56 IMPRESSION: 1. No evidence of acute abdominal process or focal inflammation. No evidence of bowel dilatation or air-fluid levels to suggest ileus versus obstruction. Stable renal cysts compared to 2017 exam. Electronically Signed: Juanito Case DO at 21:28 EST , Service support , Chest X-Ray 08/04/17 20:10 IMPRESSION: Cardiomegaly with mild prominent pulmonary vascular and interstitial markings with early CHF not excluded. No large focal airspace disease. Electronically Signed: Juanito Case DO at 20:42 EST , Service support , Assessment/Plan This is a 76 years old male patient presented to the emergency room because of generalized weakness, found to have polymicrobial acute cystitis in context of history of recurrent UTI as well as generalized weakness, physical debility and functional decline. #1 polymicrobial complicated acute cystitis: Patient was discharged recently from the hospital on amoxicillin. He does have a history of recurrent acute cystitis/UTI. Urine analysis revealed cloudy urine, positive for leukocyte esterase, there was more than 100 WBCs, moderate bacteria. He is afebrile, no leukocytosis. No evidence of sepsis or severe sepsis. During the last admission, urine culture revealed MRSA, pseudomonas aeruginosa and Streptococcus agalactiae. He received 1 dose of IV Zosyn in the emergency room, blood and urine culture sent. Plan: Admit to Med[facility] floor, continue IV Zosyn, start IV vancomycin, infectious disease consult, repeat CBC and BMP tomorrow morning, PT OT evaluation and treatment, social service consult for placement to long-term facility. #2 generalized weakness/physical debility/functional decline: During last admission, patient was offered to go to long-term facility but he refused. He came back today with the main complaint of weakness and difficulty ambulating. I spoke with the patient's , daughter and himself and they seem hesitant to go to long-term facility. Plan: PT OT evaluation and treatment, case management consult, highly recommend long-term facility. #3 type 2 diabetes mellitus: ADA diet, Accu-Cheks, insulin sliding scale, continue home doses of Humulin insulin. #4 stage III chronic kidney disease: Baseline creatinine is around 1.4-1.8 mg/dL. Admission creatinine 1.77, stable at baseline. #5 COPD/chronic respiratory failure: Patient is on home oxygen at 2 L as well as BiPAP at night. At this time, pulse ox is normal on room air. Plan: DuoNeb every 6 hours, albuterol as needed, O2 by nasal cannula to keep O2 saturation more than 92%. #6 obstructive sleep apnea: On BiPAP at home, daughter mentioned that his machine is broken. #7 DVT prophylaxis: Q. heparin. Other chronic medical problems: Stable, continue home medications. #1 hypertension. #2 hyperlipidemia. #3 depression. #4 morbid obesity. #5 history of kidney stones. This note was generated with [employer] dictation software. It may contain incorrect words, spelling, and punctuation that were not noted in checking the note before signing. Code Visit Inpatient E&M: 25786 Init Hosp L3
--- NOTE | 2017-08-04 23:08 | HP.PCM_ITS ---
Problem List (1) COPD (chronic obstructive pulmonary disease) Status: Chronic (2) Type II diabetes mellitus, uncontrolled Status: Chronic Qualifiers: (3) History of depression Status: Chronic (4) HLD (hyperlipidemia) Status: Chronic (5) HTN (hypertension) Status: Chronic (6) Morbid obesity Status: Chronic (7) NILO (obstructive sleep apnea) Status: Chronic (8) Chronic renal failure, stage 3 (moderate) Status: Chronic History of Present Illness Date of Admission: 08/04/17 Chief Complaint: Weakness. The patient is a 76 year old M with past medical history as mentioned above presented to the emergency room because of weakness. The patient is poor informant and was not able to provide good history. Patient's and daughter were at the bedside and they were not very helpful in terms of providing good history. According to the patient's , patient has been weak and not able to ambulate since yesterday. She mentioned that he has been sleepy and lethargic most of his time. The patient himself complained of being weak and not able to move or ambulate at home. He denied any specific symptoms. He was discharged from the hospital a week ago and he was admitted for acute cystitis and hypoglycemia. During that admission, I saw the patient and upon discharge, I spoke with the patient about going to long term facility because of weakness and difficulty ambulating but he refused. Patient denies fever or chills. He denied chest pain or shortness of breath. Denied cough or sputum production. He complained of left flank pain. He had a history of COPD and chronic respiratory failure and he has been on oxygen at home. He had history of obstructive sleep apnea and he has been on BiPAP at home but his BiPAP machine is broken. He has a history of uncontrolled type 2 diabetes mellitus and he has been on high doses of insulin. He has a history of hypertension and he has been on metoprolol and losartan and his blood pressure is under reasonable control. In the emergency room, his blood pressure was slightly elevated and his heart rate has been in the 50s, he was afebrile and pulse ox was 95% on room air. His routine blood work is remarkable for creatinine of 1.77 which is chronic. Urinalysis revealed cloudy urine, 500 leukocyte esterase, negative for nitrite, there was more than 100 WBCs and rare bacteria. During his recent admission, urine culture revealed Streptococcus agalactiae, MRSA and pseudomonas aeruginosa. He is being admitted for polymicrobial acute cystitis with failure of outpatient therapy, generalized weakness, physical debility and functional decline. Past Medical History Past Medical History (Chronic Problems): Chronic Problems History of kidney stones (Chronic) COPD (chronic obstructive pulmonary disease) (Chronic) Type II diabetes mellitus, uncontrolled (Chronic) History of depression (Chronic) History of other venous thrombosis and embolism (Chronic) HLD (hyperlipidemia) (Chronic) HTN (hypertension) (Chronic) Morbid obesity (Chronic) NILO (obstructive sleep apnea) (Chronic) Chronic renal failure, stage 3 (moderate) (Chronic) Bifascicular bundle branch block (Chronic) Colon polyps (Chronic) Family history of colon cancer (Chronic) Allergies MARGIE Inhibitors Allergy (Unknown, Verified 08/04/17 19:15) Unknown cefepime Allergy (Verified 08/04/17 19:15) Other WEAKNESS & FALLING ipodate [Ipodate] Allergy (Verified 08/04/17 19:15) Shortness of breath levofloxacin [Levofloxacin] Allergy (Verified 08/04/17 19:15) Anaphylaxis lisinopril Allergy (Verified 08/04/17 19:15) Shortness of breath ofloxacin Allergy (Verified 08/04/17 19:15) Unknown Quinolones Allergy (Verified 08/04/17 19:15) Anaphylaxis Home Medications: Ambulatory Orders Medication Instructions Recorded Atorvastatin Calcium [Lipitor] 40 mg PO QHS 05/29/15 Citalopram [Celexa] 40 mg PO DAILY 05/29/15 Docusate Sodium [Colace] 200 mg PO QODAY PRN 05/29/15 Fluticasone 0.05% [Flonase Nasal 1 spray NASAL BID PRN 05/29/15 [place]] Tamsulosin HCl [Flomax] 0.4 mg PO DAILY 07/08/16 Metoprolol Succinate 100 mg PO DAILY 02/08/17 Losartan Potassium [Cozaar] 100 mg PO DAILY 07/24/17 Amoxicillin [Amoxil] 500 mg PO Q8 #12 cap 07/28/17 Insulin U-500 [Humulin R U-500 60 unit SC BREAKFAST #0 07/28/17 ([facility])] Insulin U-500 [Humulin R U-500 60 unit SC DINNER #0 07/28/17 ([facility])] Insulin U-500 [Humulin R U-500 60 unit SC LUNCH #0 07/28/17 ([facility])] Surgical History: - - Circumcision, excision of kidney stone Psychiatric History: Depression Lives: With Family Smoking Status: Former smoker Alcohol: None Drugs: None - *Family History Maternal History Items: Cancer - Patient's mother of cancer but he is not sure what kind of cancer. Paternal History Items: Cancer - Father of colon cancer Offspring History Items: - - He has a son who is morbidly obese and suffers from breathing problems and heart problems. Review of Systems Constitutional: Reports: Anorexia, Weakness, Fatigue. Denies: Chills, Fever Eyes: Denies: Blurred vision, Double vision, Drainage, Redness HEENT: Denies: Difficulty Hearing, Ear Pain, Eye Pain, Nasal Congestion, Sore Throat Cardiovascular: Denies: Chest Pain, Chest Pressure, Chest Tightness, Heaviness, Light Headedness, Palpitations, Syncope Respiratory: Denies: Cough, Pleuritic Pain, Shortness of Breath, Sputum production, Wheezing Gastrointestinal: Reports: Abdominal Pain, - - Reported mild right flank pain.. Denies: Constipation, Diarrhea, Hematochezia, Nausea, Vomiting Genitourinary: Denies: Dysuria, Frequency, Hematuria Musculoskeletal: Denies: Arm Pain, Back Pain, Foot Pain Skin: Denies: Dryness, Rash Neurological: Denies: Balance problems, Double vision, Change in Speech, Headaches, Incoordination, Numbness Psychiatric: Denies: Anxiety, Depression Endocrine: Denies: Change in Body Habitus, Polydipsia VTE Information - Inpt Only VTE Present on Admission: No VTE Mechan Device Prophylaxis: None VTE Pharm Prophylaxis ordered?: Yes - Physical Exam General: Alert, Oriented x3, Cooperative, No apparent distress HEENT: Atraumatic, PERRLA, EOMI Oral: Moist Mucosa, No Gingival or Mucosal Lesions/ Ulcerations Neck: Supple, No JVD, Negative Carotid Bruits, Trachea Midline, Thyroid Normal Size and Texture Lungs: Clear to auscultation, No rhonchi, No wheeze, No rales, Diminished Cardiovascular: Regular rate, Regular Rhythm, Normal S1, Normal S2, No murmurs, Bradycardic Abdomen: Bowel Sounds Present, Soft, Non Tender, Non-Distended, No Hepato- splenomegaly, Obese Extremities: No clubbing, No cyanosis, Edema - Trace edema, stasis dermatitis. Skin: No rashes, No breakdown Lymphatic: No Cervical, Supraclavicular, or Inguinal Adenopathy Neurological: Cranial nerves II-XII grossly intact, Neuro grossly intact Psych/Mental Status: Flat Affect Vital Signs Temp Pulse Resp BP Pulse Ox 98.1 F 50 L 19 H 173/70 H 94 08/04/17 19:10 08/04/17 22:54 08/04/17 22:54 08/04/17 22:54 08/04/17 22:54 Oxygen Delivery Method Room Air Weight: 390 lb Body Mass Index (BMI) 52.9 Finger Stick Blood Glucose 216 Laboratory Tests Past 24 Hrs 08/04/17 08/04/17 08/04/17 20:10 20:10 20:10 WBC 8.5 RBC 4.70 Hgb 13.5 Hct 41.1 MCV 87.4 MCH 28.7 MCHC 32.8 RDW 13.8 RDW Differential 42.6 Plt Count 244 MPV 9.9 Immature Gran % (Auto) 0.400 Neut % (Auto) 71.4 H Lymph % (Auto) 14.2 L Cr[place] % (Auto) 10.1 H Eos % (Auto) 3.4 Baso % (Auto) 0.5 Absolute Neuts (auto) 6.1 Absolute Lymphs (auto) 1.20 Total Counted Not Reportable PT 14.4 INR 1.2 Sodium 142 Potassium 4.1 Chloride 108 H Carbon Dioxide 24.0 Anion Gap 10 BUN 23 H Creatinine 1.77 H Estim Creat Clear Calc 38.97 Est GFR (MDRD) Af Amer 48 L Est GFR (MDRD) Non-Af 40 L BUN/Creatinine Ratio 13.0 Glucose 114 H Calcium 8.7 Total Bilirubin 0.70 Direct Bilirubin 0.15 AST 13 L ALT 20 Alkaline Phosphatase 89 Total Protein 7.3 Albumin 2.8 L Globulin 4.5 H Urine Color Urine Clarity Urine pH Ur Specific [place] Urine Protein Urine Glucose (UA) Urine Ketones Urine Occult Blood Urine Nitrite Urine Bilirubin Urine Urobilinogen Ur Leukocyte Esterase Urine RBC Urine WBC Ur Squamous Epith Cells Amorphous Sediment Urine Bacteria Urine Mucus Urine Yeast 08/04/17 21:25 WBC RBC Hgb Hct MCV MCH MCHC RDW RDW Differential Plt Count MPV Immature Gran % (Auto) Neut % (Auto) Lymph % (Auto) Crane % (Auto) Eos % (Auto) Baso % (Auto) Absolute Neuts (auto) Absolute Lymphs (auto) Total Counted PT INR Sodium Potassium Chloride Carbon Dioxide Anion Gap BUN Creatinine Estim Creat Clear Calc Est GFR (MDRD) Af Amer Est GFR (MDRD) Non-Af BUN/Creatinine Ratio Glucose Calcium Total Bilirubin Direct Bilirubin AST ALT Alkaline Phosphatase Total Protein Albumin Globulin Urine Color Yellow Urine Clarity Sl. Cloudy Urine pH 5.0 Ur Specific [place] 1.020 Urine Protein 100 H Urine Glucose (UA) Normal Urine Ketones Negative Urine Occult Blood 50 H Urine Nitrite Negative Urine Bilirubin Negative Urine Urobilinogen Normal Ur Leukocyte Esterase 500 H Urine RBC 0-5 SEEN Urine WBC >100 SEEN Ur Squamous Epith Cells 0-5 SEEN Amorphous Sediment 1+ URATE Urine Bacteria RARE Urine Mucus 0 SEEN Urine Yeast RARE Clinical Impression(s) from Imaging Studies Abdomen/Pelvis CT 08/04/17 19:56 IMPRESSION: 1. No evidence of acute abdominal process or focal inflammation. No evidence of bowel dilatation or air-fluid levels to suggest ileus versus obstruction. Stable renal cysts compared to 2017 exam. Electronically Signed: Juanito Case DO at 21:28 EST , Service support , Chest X-Ray 08/04/17 20:10 IMPRESSION: Cardiomegaly with mild prominent pulmonary vascular and interstitial markings with early CHF not excluded. No large focal airspace disease. Electronically Signed: Juanito Case DO at 20:42 EST , Service support , Assessment/Plan This is a 76 years old male patient presented to the emergency room because of generalized weakness, found to have polymicrobial acute cystitis in context of history of recurrent UTI as well as generalized weakness, physical debility and functional decline. #1 polymicrobial complicated acute cystitis: Patient was discharged recently from the hospital on amoxicillin. He does have a history of recurrent acute cystitis/UTI. Urine analysis revealed cloudy urine, positive for leukocyte esterase, there was more than 100 WBCs, moderate bacteria. He is afebrile, no leukocytosis. No evidence of sepsis or severe sepsis. During the last admission, urine culture revealed MRSA, pseudomonas aeruginosa and Streptococcus agalactiae. He received 1 dose of IV Zosyn in the emergency room , blood and urine culture sent. Plan: Admit to Medr floor, continue IV Zosyn , start IV vancomycin, infectious disease consult, repeat CBC and BMP tomorrow morning, PT OT evaluation and treatment, social service consult for placement to long term facility. #2 generalized weakness/physical debility/functional decline: During last admission, patient was offered to go to long term facility but he refused. He came back today with the main complaint of weakness and difficulty ambulating. I spoke with the patient's , daughter and himself and they seem hesitant to go to long term facility. Plan: PT OT evaluation and treatment, case management consult, highly recommend long term facility. #3 type 2 diabetes mellitus: ADA diet, Accu-Cheks, insulin sliding scale, continue home doses of Humulin insulin. #4 stage III chronic kidney disease: Baseline creatinine is around 1.4-1.8 mg/ dL. Admission creatinine 1.77, stable at baseline. #5 COPD/chronic respiratory failure: Patient is on home oxygen at 2 L as well as BiPAP at night. At this time, pulse ox is normal on room air. Plan: DuoNeb every 6 hours, albuterol as needed, O2 by nasal cannula to keep O2 saturation more than 92%. #6 obstructive sleep apnea: On BiPAP at home, daughter mentioned that his machine is broken. #7 DVT prophylaxis: Q. heparin. Other chronic medical problems: Stable, continue home medications. #1 hypertension. #2 hyperlipidemia. #3 depression. #4 morbid obesity. #5 history of kidney stones. This note was generated with [employer] dictation software. It may contain incorrect words, spelling, and punctuation that were not noted in checking the note before signing. Code Visit Inpatient E&M: 47142 Init Hosp L3
[2017-08-05] VITALS (16 sets, daily range): BP systolic 140–177; BP diastolic 66–78; PULSE 45–74; RESP 12–20; TEMP 36.2–36.9; O2SAT 92–99
--- NOTE | 2017-08-05 | NURSING ---
spoke with Demarcus in pharmacy about pt unit dose for humulin R u -500. needs to clarify with Dr tellez.
[2017-08-05] MEDS: Ipratropium/Albuterol Sulfate 3 ML AMPUL.NEB INHALATION ×4 (00:10→18:23)
[2017-08-05] MEDS: 0.9% NaCl Peripheral Flush Adult/Peds IV ×3 (00:22→15:06)
[2017-08-05 00:30] LABS: Bedside Glucose 111 mg/dL (70-110)
[2017-08-05 06:36] LABS: Absolute Lymphocyte Count 1.36 X10^3/ul (0.83-4.51); Absolute Neutrophil Count 3.9 X10^3/uL (2.0-7.7); Basophil# 0.04 X10^3/uL; Basophil% 0.6 % (0-1); Eosinophil# 0.23 X10^3/uL; Eosinophils% 3.7 % (0-5); Hematocrit 38.8 % (40-54); Hemoglobin 12.6 g/dl (13.0-16.5); Lymphocyte # 1.36 X10^3/ul (4.0); Lymphocyte % 21.9 % (19-41); Mean Corp Hgb Conc 32.5 g/gl (32-36); Mean Corpuscular Hgb 28.6 pg (27.0-32.0); Mean Corpuscular Volume 88.2 fL (80-94); Mean Platelet Vol. 9.3 fl (6.2-12.0); Monocyte# 0.64 X10^3/uL; Monocyte% 10.3 % (0-10); Neutrophil # 3.91 X10^3/uL (2.7-7.7); Neutrophil % 63.2 % (47-70); POSITIVE COUNT NO; POSITIVE DIFFERENTIAL NO; POSITIVE MORPHOLOGY NO; Platelet Count 209 K/mm3 (150-450); RBC Distribution Width CV 13.6 % (11.6-14.6); RBC Distribution Width SD 42.6 fl (35.1-43.9); White Blood Count 6.2 K/mm3 (4.4-11.0)
[2017-08-05] MEDS: Piperacil/Tazobactam 3.375 GM/50 ML ML IV ×3 (06:54→21:12)
[2017-08-05 07:04] LABS: Anion Gap 8 (5-15); BUN 22 mg/dL (7-18); Calcium,Total 8.3 mg/dL (8.5-10.1); Chloride 106 mmol/L (98-107); Creatinine, Serum 1.69 mg/dL (0.70-1.30); EST Glomerular Filtration Rate 42 mL/min (>60); Est Glom Filt Rate - Afr Amer 51 mL/min (>60); Estimated Creatinine Clearance 40.82 ml/min; Glucose 180 mg/dL (74-106); Potassium 3.9 mmol/L (3.5-5.1); Sodium Level 140 mmol/L (136-145)
--- NOTE | 2017-08-05 07:06 | PN_ITS ---
Patient Problems: Active and Suspected Problems Altered mental status (Acute) Debility (Acute) Subjective: Patient is a 76-year-old male with a past medical history of diabetes mellitus type 2, COPD, depression, hyperlipidemia, hypertension, super morbid obesity, obstructive sleep apnea and chronic renal failure stage III who was brought to the emergency room at [facility] on 08/04/2017 with a complaint of weakness. He was recently admitted to the hospital on 07/24/2017 and discharged on 07/29/2017. He was treated for acute cystitis and metabolic encephalopathy secondary to infection. He was discharged on amoxicillin 500 mg p.o. every 8 hours for 4 days. Vital signs at presentation to the emergency room were temperature 98.1, pulse rate 50, blood pressure 154/67, respiratory rate 18 and he was 95% saturated on room air. White blood cell count was normal at 8.5 with 71% neutrophils. Hemoglobin and platelets were within normal limits. Electrolytes were unremarkable and the BUN was 23 with a creatinine of 1.77 which is within his baseline creatinine. LFTs were unremarkable. Urine was nitrite negative but had greater than 100 WBCs per high -power field with rare bacteria. There was also rare yeast present. CT scan of the abdomen and pelvis without IV contrast showed no evidence of acute abdominal process or focal inflammation. There is moderate cortical atrophy of both kidneys stable renal cysts. There were no stones reported. Admitted to the hospital with a diagnosis of acute cystitis and generalized weakness secondary to infection. Given 1 dose of IV Zosyn in the emergency room. He was started on IV Zosyn and IV vancomycin. Urine was sent for culture. The urine culture from 07/24/2017 grew 25,000-50,000 colonies of group B strep, 25-50, 000 colonies of MRSA and less than 1000 colonies of Pseudomonas aeruginosa. When I went into his room he was sleeping in the chair and very difficult to arouse. Tells me that his CPAP broke and he is not wearing it. At his last admission to the hospital he required BIPAP at . He is slow to answer questions and blinks infrequently. At the last admission he refused SNF even though he is unable to care for himself. Has not had a sleep study in many years and has failed to follow up in the pulmonary office as instructed. Obviously not compliant with diet. He has been in the hospital 5 times in the past 13 months. Weight has decreased in the past 13 months from 404 to 377 pounds - Physical Exam General: Lethargic, - - morbidly obese, slow to answer questions and nods off. decreased blink HEENT: Atraumatic, Normocephalic Oral: Moist Mucosa Neck: Trachea Midline, - - can not assess for JVD as he is sitting upright in a chair and his neck is very thick and short Lungs: No rhonchi, No wheeze, No rales, Diminished, - - not tachypneic and no accessory muscle use Cardiovascular: Regular Rhythm, Bradycardic Abdomen: Bowel Sounds Present, Non Tender, Obese Extremities: No clubbing, No cyanosis, Edema, - - Hyperpigmentation on the lower extremities secondary to chronic venous insufficiency/swelling Skin: No rashes, No breakdown Neurological: Cranial nerves II-XII grossly intact, Neuro grossly intact Vital Signs Temp Pulse Resp BP Pulse Ox 98.4 F 62 20 H 140/77 H 97 08/05/17 06:55 08/05/17 06:55 08/05/17 06:55 08/05/17 06:55 08/05/17 06:55 Oxygen Flow Rate 2 Oxygen Delivery Method Nasal Cannula Weight: 377 lb 10.429 oz Body Mass Index (BMI) 51.2 Intake and Output for Last 24 Hours 08/03/17 08/04/17 08/05/17 23:59 23:59 23:59 Intake Total 240 / 240 867 / 867 Output Total 400 / 400 Balance 240 / 240 467 / 467 Laboratory Tests Past 24 Hrs 08/05/17 08/05/17 06:25 06:25 WBC 6.2 RBC 4.40 L Hgb 12.6 L Hct 38.8 L MCV 88.2 MCH 28.6 MCHC 32.5 RDW 13.6 RDW Differential 42.6 Plt Count 209 MPV 9.3 Immature Gran % (Auto) 0.300 Neut % (Auto) 63.2 Lymph % (Auto) 21.9 [place] % (Auto) 10.3 H Eos % (Auto) 3.7 Baso % (Auto) 0.6 Absolute Neuts (auto) 3.9 Absolute Lymphs (auto) 1.36 Total Counted Not Reportable Sodium Pending Potassium Pending Chloride Pending Carbon Dioxide Pending Anion Gap Pending BUN Pending Creatinine Pending Est GFR (MDRD) Af Amer Pending Est GFR (MDRD) Non-Af Pending BUN/Creatinine Ratio Pending Glucose Pending Calcium Pending POC Glucose 08/05/17 00:24 POC Glucose 111 H Assessment/Plan Active and Suspected Problems Altered mental status (Acute) Debility (Acute) Impressions 1. lethargy - likely due to untreated severe NILO. Requires very high EPAP and IPAP settings to keep him adequately oxygenated and ventilated while sleeping. Dr. Malone has recommend anytime he is napping or sleeping. Non-compliant with CPAP he has at home and has made no attempt to contact the [facility] to have it repaired.....I suspect he has never been compliant and he has not had a sleep study in many years 2. CO2 retention 3. Cystitis? I suspect he is colonized - no fever, normal WBC and unremarkable diff. I reviewed Dr. King's consult and discussed with him. Will continue the Zosyn and vancomycin until the cultures are available. He was straight cath today and a repeat urine for culture was sent. I have serious reservation about this partially obtunded morbidly obese gentleman to obtain a clean catch. I suspect his BS's are uncontrolled at home and that he could have a fungal infection. He has had candid albicans in the urine on multiple occasions in the past and this is likely related to poorly controlled BS 4. Severe untreated NILO 5. Non-compliance with CPAP, diet, follow up with pulmonary, and probably medications also 6. COPD 7. History of depression 8. Hyperlipidemia 9. Hypertension 10. Chronic renal failure stage III 11. BPH 12. Diabetes mellitus type 2 with marked insulin resistance, on U5 100 insulin 13. subtherapeutic INR - Warfarin was held in the recent past because the INR was too high and he never went to get the repeat INR so he just did not take the Warfarin 14. History of nephrolithiasis 15. History of venous thrombosis and pulmonary embolism 16. Colon polyps 17. Right bundle branch block 18. Negative pharmacologic stress test in January 2017 with a gated nuclear ejection fraction of 57%. BIPAP ordered. apparently he is not going to follow up with dr. Malone in the office and told Dr. Malone that Dr. Nelson would manage his NILO.....I wonder when the last time was he actually saw Dr. Nelson? Obtain Dr. Nelson's last 2 progress note, med list and problem list I have asked the SW to schedule a family meeting to discuss plans going forward....if he is not going to be compliant then I will discuss palliative/ hospice with him. will also discuss advance directives at the family meeting so that we are all clear about his wishes. I strongly suspect that the lethargy and weakness are due to untreated severe sleep apnea and not to UTI.......he is asymptomatic, AF had has a normal WBC and Diff Code Visit Inpatient E&M: 44643 Subs Hosp L3
[2017-08-05] MEDS: Citalopram 40 MG TABLET PO (08:26)
[2017-08-05] MEDS: Losartan Potassium 100 MG Tablet PO (08:26)
[2017-08-05] MEDS: Tamsulosin HCl 0.4 MG Capsule PO (08:27)
[2017-08-05 08:40] LABS: Bedside Glucose 191 mg/dL (70-110)
--- NOTE | 2017-08-05 10:50 | PCM.HP.ID ---
Problem List (1) Altered mental status Status: Acute Reason for Consult: uti Consulted by: Dr. Yusuf History of Present Illness: The patient is a 76 year old M with recent admit for confusion. Resp status improved with NIPPV. Was on abx for uti. Ucx grew MRSA, GBS, and less than 1000 PsA. Pt improved without MRSA coverage, Bcx were neg, and it was thought to be colonizer. Discharged to complete short course of po amox. Over past 1-2 days at home, increasing confusion/encephalopathy. He denies abd pain or dysuria. No fever here. UA in ED with heavy pyuria, started on vanc/zosyn to cover prior cx growth. Pt unable to provide history. Per report, home CPAP has been broken for at least several weeks. ROS unobtainable due to mental status. - Medical History Past Medical History (Chronic Problems): Chronic Problems History of kidney stones (Chronic) COPD (chronic obstructive pulmonary disease) (Chronic) Type II diabetes mellitus, uncontrolled (Chronic) History of depression (Chronic) History of other venous thrombosis and embolism (Chronic) HLD (hyperlipidemia) (Chronic) HTN (hypertension) (Chronic) Morbid obesity (Chronic) NILO (obstructive sleep apnea) (Chronic) Chronic renal failure, stage 3 (moderate) (Chronic) Bifascicular bundle branch block (Chronic) Colon polyps (Chronic) Family history of colon cancer (Chronic) Allergies/Adverse Reactions: Allergies MARGIE Inhibitors Allergy (Unknown, Verified 08/04/17 19:15) Unknown cefepime Allergy (Verified 08/04/17 19:15) Other WEAKNESS & FALLING ipodate [Ipodate] Allergy (Verified 08/04/17 19:15) Shortness of breath levofloxacin [Levofloxacin] Allergy (Verified 08/04/17 19:15) Anaphylaxis lisinopril Allergy (Verified 08/04/17 19:15) Shortness of breath ofloxacin Allergy (Verified 08/04/17 19:15) Unknown Quinolones Allergy (Verified 08/04/17 19:15) Anaphylaxis Home Medications: Ambulatory Orders Medication Instructions Recorded Atorvastatin Calcium [Lipitor] 40 mg PO QHS 15 Citalopram [Celexa] 40 mg PO DAILY 15 Docusate Sodium [Colace] 200 mg PO QODAY PRN 05/29/15 Fluticasone 0.05% [Flonase Nasal 1 spray NASAL BID PRN 05/29/15 [place]] Tamsulosin HCl [Flomax] 0.4 mg PO DAILY 07/08/16 Metoprolol Succinate 100 mg PO DAILY 02/08/17 Losartan Potassium [Cozaar] 100 mg PO DAILY 07/24/17 Amoxicillin [Amoxil] 500 mg PO Q8 #12 cap 07/28/17 Insulin U-500 [Humulin R U-500 60 unit SC BREAKFAST #0 07/28/17 ([facility])] Insulin U-500 [Humulin R U-500 60 unit SC DINNER #0 07/28/17 ([facility])] Insulin U-500 [Humulin R U-500 60 unit SC LUNCH #0 07/28/17 ([facility])] Vital Signs Temp Pulse Resp BP Pulse Ox 98.4 F 53 L 16 140/77 H 95 08/05/17 06:55 08/05/17 10:28 08/05/17 08:32 08/05/17 06:55 08/05/17 08:32 Oxygen Flow Rate 2 Oxygen Delivery Method Room Air Weight: 171.3 kg Body Mass Index (BMI) 51.2 Laboratory Tests Past 24 Hrs 08/05/17 08/05/17 08/05/17 06:25 06:25 06:25 WBC 6.2 RBC 4.40 L Hgb 12.6 L Hct 38.8 L MCV 88.2 MCH 28.6 MCHC 32.5 RDW 13.6 RDW Differential 42.6 Plt Count 209 MPV 9.3 Immature Gran % (Auto) 0.300 Neut % (Auto) 63.2 Lymph % (Auto) 21.9 [place] % (Auto) 10.3 H Eos % (Auto) 3.7 Baso % (Auto) 0.6 Absolute Neuts (auto) 3.9 Absolute Lymphs (auto) 1.36 Total Counted Not Reportable Sodium 140 Potassium 3.9 Chloride 106 Carbon Dioxide 26.0 Anion Gap 8 BUN 22 H Creatinine 1.69 H Estim Creat Clear Calc 40.82 Est GFR (MDRD) Af Amer 51 L Est GFR (MDRD) Non-Af 42 L BUN/Creatinine Ratio 13.0 Glucose 180 H Calcium 8.3 L PSA Screen 1.10 - Other Studies Radiology: [] reviewed Other Studies: [] Route of nutrition/ use of supplements: [] Nutritional Intake: [] IV Site: [] Lane Catheter: [] - Physical Exam General: Lethargic - opens eyes to verbal stim, oriented x0 HEENT: Atraumatic, PERRLA, EOMI Neck: Supple, No Nodes Lungs: Clear to auscultation, Diminished Cardiovascular: Regular rate, Regular Rhythm Abdomen: Bowel Sounds Present, Soft, Non Tender, Non-Distended, Obese Extremities: Edema Skin: No rashes IV Site: Peripheral, without redness Musculoskeletal: No Tenderness to Palpation of Joints or Extremities Neurological: Cranial nerves II-XII grossly intact - able to answer some questions - Assessment/Plan Antibiotics: [] Assessment/Plan: [] Altered mental status - recent ucx with strep, MRSA, PsA. Heavy pyruia on UA here. Bcx and ucx pending. No fever, no leukocytosis, denies abd pain or dysuria. Spoke with micro lab and zosyn susceptibilities were not available on prior pseudomonas. 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 Cr is at baseline. Thank you, will follow, d/w Dr. Yusuf.
[2017-08-05 10:56] LABS: Allen Test POS; Base Excess 3 mmol/L (-2 to +2); Bicarbonate 27.6 mmol/L (22-26); Blood Gas Specimen Type ART; O2 Delivery Device Room Air; PO2 64 mmHG (75-100); SITE R Radial; SO2 92 % (95-99); Time Given 1055; Total Carbon Dioxide 29 mmol/L; pCO2 45.7 mmHg (35-45); pH 7.39 (7.35-7.45)
--- NOTE | 2017-08-05 10:58 | CON.PCM_ITS ---
Problem List (1) Altered mental status Status: Acute Reason for Consult: uti Consulted by: Dr. Yusuf History of Present Illness: The patient is a 76 year old M with recent admit for confusion. Resp status improved with NIPPV. Was on abx for uti. Ucx grew MRSA, GBS, and less than 1000 PsA. Pt improved without MRSA coverage, Bcx were neg, and it was thought to be colonizer. Discharged to complete short course of po amox. Over past 1- 2 days at home, increasing confusion/encephalopathy. He denies abd pain or dysuria. No fever here. UA in ED with heavy pyuria, started on vanc/zosyn to cover prior cx growth. Pt unable to provide history. Per report, home CPAP has been broken for at least several weeks. ROS unobtainable due to mental status. - Medical History Past Medical History (Chronic Problems): Chronic Problems History of kidney stones (Chronic) COPD (chronic obstructive pulmonary disease) (Chronic) Type II diabetes mellitus, uncontrolled (Chronic) History of depression (Chronic) History of other venous thrombosis and embolism (Chronic) HLD (hyperlipidemia) (Chronic) HTN (hypertension) (Chronic) Morbid obesity (Chronic) NILO (obstructive sleep apnea) (Chronic) Chronic renal failure, stage 3 (moderate) (Chronic) Bifascicular bundle branch block (Chronic) Colon polyps (Chronic) Family history of colon cancer (Chronic) Allergies/Adverse Reactions: Allergies MARGIE Inhibitors Allergy (Unknown, Verified 08/04/17 19:15) Unknown cefepime Allergy (Verified 08/04/17 19:15) Other WEAKNESS & FALLING ipodate [Ipodate] Allergy (Verified 08/04/17 19:15) Shortness of breath levofloxacin [Levofloxacin] Allergy (Verified 08/04/17 19:15) Anaphylaxis lisinopril Allergy (Verified 08/04/17 19:15) Shortness of breath ofloxacin Allergy (Verified 08/04/17 19:15) Unknown Quinolones Allergy (Verified 08/04/17 19:15) Anaphylaxis Home Medications: Ambulatory Orders Medication Instructions Recorded Atorvastatin Calcium [Lipitor] 40 mg PO QHS 15 Citalopram [Celexa] 40 mg PO DAILY 15 Docusate Sodium [Colace] 200 mg PO QODAY PRN 05/29/15 Fluticasone 0.05% [Flonase Nasal 1 spray NASAL BID PRN 05/29/15 [place]] Tamsulosin HCl [Flomax] 0.4 mg PO DAILY 07/08/16 Metoprolol Succinate 100 mg PO DAILY 02/08/17 Losartan Potassium [Cozaar] 100 mg PO DAILY 07/24/17 Amoxicillin [Amoxil] 500 mg PO Q8 #12 cap 07/28/17 Insulin U-500 [Humulin R U-500 60 unit SC BREAKFAST #0 07/28/17 ([facility])] Insulin U-500 [Humulin R U-500 60 unit SC DINNER #0 07/28/17 ([facility])] Insulin U-500 [Humulin R U-500 60 unit SC LUNCH #0 07/28/17 ([facility])] Vital Signs Temp Pulse Resp BP Pulse Ox 98.4 F 53 L 16 140/77 H 95 08/05/17 06:55 08/05/17 10:28 08/05/17 08:32 08/05/17 06:55 08/05/17 08:32 Oxygen Flow Rate 2 Oxygen Delivery Method Room Air Weight: 171.3 kg Body Mass Index (BMI) 51.2 Laboratory Tests Past 24 Hrs 08/05/17 08/05/17 08/05/17 06:25 06:25 06:25 WBC 6.2 RBC 4.40 L Hgb 12.6 L Hct 38.8 L MCV 88.2 MCH 28.6 MCHC 32.5 RDW 13.6 RDW Differential 42.6 Plt Count 209 MPV 9.3 Immature Gran % (Auto) 0.300 Neut % (Auto) 63.2 Lymph % (Auto) 21.9 [place] % (Auto) 10.3 H Eos % (Auto) 3.7 Baso % (Auto) 0.6 Absolute Neuts (auto) 3.9 Absolute Lymphs (auto) 1.36 Total Counted Not Reportable Sodium 140 Potassium 3.9 Chloride 106 Carbon Dioxide 26.0 Anion Gap 8 BUN 22 H Creatinine 1.69 H Estim Creat Clear Calc 40.82 Est GFR (MDRD) Af Amer 51 L Est GFR (MDRD) Non-Af 42 L BUN/Creatinine Ratio 13.0 Glucose 180 H Calcium 8.3 L PSA Screen 1.10 - Other Studies Radiology: [] reviewed Other Studies: [] Route of nutrition/ use of supplements: [] Nutritional Intake: [] IV Site: [] Lane Catheter: [] - Physical Exam General: Lethargic - opens eyes to verbal stim, oriented x0 HEENT: Atraumatic, PERRLA, EOMI Neck: Supple, No Nodes Lungs: Clear to auscultation, Diminished Cardiovascular: Regular rate, Regular Rhythm Abdomen: Bowel Sounds Present, Soft, Non Tender, Non-Distended, Obese Extremities: Edema Skin: No rashes IV Site: Peripheral, without redness Musculoskeletal: No Tenderness to Palpation of Joints or Extremities Neurological: Cranial nerves II-XII grossly intact - able to answer some questions - Assessment/Plan Antibiotics: [] Assessment/Plan: [] Altered mental status - recent ucx with strep, MRSA, PsA. Heavy pyruia on UA here. Bcx and ucx pending. No fever, no leukocytosis, denies abd pain or dysuria. Spoke with micro lab and zosyn susceptibilities were not available on prior pseudomonas. Ok to continue empiric vanc/zosyn while cxs are pending, but suspect untreated cpap is the primary stake driver of his mental status. Cr is at baseline. Thank you, will follow, d/w Dr. Yusuf.
[2017-08-05 11:40] LABS: Erythrocyte Sedimentation Rate 41 mm/hr (0-20)
--- NOTE | 2017-08-05 12:03 | PCM.CONS.GEN ---
Problem List (1) History of kidney stones Status: Chronic (2) COPD (chronic obstructive pulmonary disease) Status: Chronic (3) Type II diabetes mellitus, uncontrolled Status: Chronic Qualifiers: (4) History of depression Status: Chronic (5) History of other venous thrombosis and embolism Status: Chronic (6) HLD (hyperlipidemia) Status: Chronic (7) HTN (hypertension) Status: Chronic (8) Morbid obesity Status: Chronic (9) NILO (obstructive sleep apnea) Status: Chronic (10) Chronic renal failure, stage 3 (moderate) Status: Chronic (11) Bifascicular bundle branch block Status: Chronic (12) Debility Status: Acute (13) Noncompliance Status: Chronic Reason for Consult Date of Consultation: 08/05/17 Reason for Consultation: untreated NILO History of Present Illness: The patient is a 76 year old M with past medical history as below who presented to the ER on 08/04 with complaints of weakness. Patient is a notably poor historian. He does endorse weakness, immobility, and generalized malaise at home. He has not been wearing BiPAP secondary to the machine being broke. He denies any fever, chills, increased sputum production, or cough. He denies any palpitations, syncope, or chest pain. He does get short of breath with any activity. He also complains of dysuria, frequency, and right flank pain but no lower abdominal pain. Denies nausea, vomiting, or diarrhea. Family apparently reported patient has been somewhat confused intermittently over the last several weeks. The patient was admitted from 07/24 - 07/29 for acute metabolic encephalopathy, polymicrobial acute cystitis, and hypoglycemia. Patient was followed by infectious disease and pulmonology at that time. Urine culture at that time revealed Streptococcus agalactiae, MRSA and pseudomonas aeruginosa. He was sent home on amoxicillin with a completion date of 07/31/17. BiPAP settings were changed to , however patient reports he is intolerant to high pressures and feels like he is very bloated. Patient did not have a home oxygen requirement upon discharge. He has been noncompliant in the past. It was strongly suggested the patient also have a repeat polysomnogram as an outpatient, as his previous settings may not have been accurate and too much pressure can lead to excessive leak, however not enough pressure could lead to significant nocturnal hypoxemia. I confirmed the patient has an appointment for repeat polysomnogram on August 26 at [facility]. The patient did not wish to follow with pulmonary medicine upon discharge and was scheduled to see Dr. Nelson, his primary care physician for follow-up. CBC on admit was relatively unremarkable, no leukocytosis and hemoglobin stable. INR was 1.2, patient has not been on his Coumadin. Chemistry remarkable for a chloride of 108, BUN 23 and creatinine 1.77. His albumin remains low at 2.8. Blood and urine cultures were obtained in the emergency room and are pending. Urinalysis did show protein, occult blood, and 500 of leukocyte esterase. There was > 100 urine WBC and rare bacteria with amorphous sediment and yeast. Chest x-ray showed cardiomegaly with mild prominent pulmonary vascular and interstitial markings with early CHF not excluded, there was no large focal airspace disease. Abdominal/pelvis CT showed no evidence of acute process or focal inflammation. No evidence of bowel dilation or air-fluid levels to suggest ileus versus obstruction. There is stable renal cysts. The patient was given a dose of IV Zosyn minute to the medical surgical floor for further evaluation and management. Infectious disease and pulmonary was consulted. An ABG was obtained on room air this morning and showed normal pH at 7.39, PCO2 45.7, and PO2 64. Oxygen saturation correlated at 92%. Bicarb was 27.6. Patient has been maintaining appropriate saturations on room air. He did not wear BiPAP overnight as it was not ordered and he did not request it. Past Medical History Past Medical History (Chronic Problems): Chronic Problems Noncompliance (Chronic) History of kidney stones (Chronic) COPD (chronic obstructive pulmonary disease) (Chronic) Type II diabetes mellitus, uncontrolled (Chronic) History of depression (Chronic) History of other venous thrombosis and embolism (Chronic) HLD (hyperlipidemia) (Chronic) HTN (hypertension) (Chronic) Morbid obesity (Chronic) NILO (obstructive sleep apnea) (Chronic) Chronic renal failure, stage 3 (moderate) (Chronic) Bifascicular bundle branch block (Chronic) Colon polyps (Chronic) Family history of colon cancer (Chronic) Allergies MARGIE Inhibitors Allergy (Unknown, Verified 08/04/17 19:15) Unknown cefepime Allergy (Verified 08/04/17 19:15) Other WEAKNESS & FALLING ipodate [Ipodate] Allergy (Verified 08/04/17 19:15) Shortness of breath levofloxacin [Levofloxacin] Allergy (Verified 08/04/17 19:15) Anaphylaxis lisinopril Allergy (Verified 08/04/17 19:15) Shortness of breath ofloxacin Allergy (Verified 08/04/17 19:15) Unknown Quinolones Allergy (Verified 08/04/17 19:15) Anaphylaxis Home Medications: Ambulatory Orders Medication Instructions Recorded Atorvastatin Calcium [Lipitor] 40 mg PO QHS 05/29/15 Citalopram [Celexa] 40 mg PO DAILY 05/29/15 Docusate Sodium [Colace] 200 mg PO QODAY PRN 05/29/15 Fluticasone 0.05% [Flonase Nasal 1 spray NASAL BID PRN 05/29/15 [place]] Tamsulosin HCl [Flomax] 0.4 mg PO DAILY 07/08/16 Metoprolol Succinate 100 mg PO DAILY 02/08/17 Losartan Potassium [Cozaar] 100 mg PO DAILY 07/24/17 Amoxicillin [Amoxil] 500 mg PO Q8 #12 cap 07/28/17 Insulin U-500 [Humulin R U-500 60 unit SC BREAKFAST #0 07/28/17 ([facility])] Insulin U-500 [Humulin R U-500 60 unit SC DINNER #0 07/28/17 ([facility])] Insulin U-500 [Humulin R U-500 60 unit SC LUNCH #0 07/28/17 ([facility])] Surgical History: - - Circumcision, excision of kidney stone Psychiatric History: Depression Lives: With Family Smoking Status: Former smoker Alcohol: None Drugs: None - *Family History Maternal History Items: Cancer - Patient's mother of cancer but he is not sure what kind of cancer. Paternal History Items: Cancer - Father of colon cancer Offspring History Items: - - He has a son who is morbidly obese and suffers from breathing problems and heart problems. Review of Systems Constitutional: Reports: Malaise, Weakness, Fatigue. Denies: Anorexia, Chills, Fever, Night Sweats, Weight Change Eyes: Denies: Blurred vision, Double vision, Vision Change HEENT: Denies: Difficulty Swallowing, Dysphasia, Head Aches, Nasal bleeding, Nasal Congestion, Post Nasal Drip, Sinus Congestion, Sinus Drainage, Sore Throat, Visual Changes Cardiovascular: Reports: Edema - chronic, no increase, Paroxysmal Noc. Dyspnea. Denies: Chest Pain, Chest Tightness, Light Headedness, Orthopnea, Palpitations, Syncope Respiratory: Reports: Shortness of breath upon exertion. Denies: Cough, Hemoptysis, Shortness of breath at rest, Sputum production, Wheezing Gastrointestinal: Denies: Abdominal Pain, Constipation, Diarrhea, Dyspepsia, Hematemesis, Hematochezia, Nausea, Melena, Vomiting Genitourinary: Reports: Dysuria, Frequency, Incontinence, Nocturia, Retention. Denies: Hematuria Musculoskeletal: Reports: Back Pain - R flank pain Skin: Reports: Dryness, - - venous stasis changes. Denies: Pruritis, Wounds Neurological: Reports: Balance problems - weak, legs buckle, Confusion. Denies: Change in Speech, Difficulty swallowing, Numbness, Tingling, Tremor, Seizures Psychiatric: Reports: Depression. Denies: Anxiety, Suicidal Ideations Endocrine: Denies: Change in Body Habitus, Polydipsia, Polyuria Hematologic/ Lymphatic: Reports: Hx of blood clot. Denies: Adenopathy, Anemia, Easy Bruising, Easy Bleeding Patient Problems: Active and Suspected Problems Altered mental status (Acute) Debility (Acute) Subjective: Patient was seen and examined. He has a very flat affect and is a poor historian. He does know he has an appointment on August 26 for outpatient polysomnogram. Patient denies any current shortness of breath, cough, sputum production, chest pain, palpitations, or dizziness. He has been somewhat bradycardic, as he was last admission as well. Pulses range from 47-74 bpm. Patient remains afebrile and hemodynamically stable. Objective: Clinical Impression(s) from Imaging Studies Abdomen/Pelvis CT 08/04/17 19:56 IMPRESSION: 1. No evidence of acute abdominal process or focal inflammation. No evidence of bowel dilatation or air-fluid levels to suggest ileus versus obstruction. Stable renal cysts compared to 2017 exam. Electronically Signed: Juanito Case DO at 21:28 EST , Service support , Chest X-Ray 08/04/17 20:10 IMPRESSION: Cardiomegaly with mild prominent pulmonary vascular and interstitial markings with early CHF not excluded. No large focal airspace disease. Electronically Signed: Juanito Case DO at 20:42 EST , Service support , - Physical Exam General: Alert, Oriented x3, Cooperative, No apparent distress, - - very flat affect. No conversational dyspnea, speaking in complete sentences HEENT: Atraumatic, Normocephalic Oral: Moist Mucosa, No Gingival or Mucosal Lesions/ Ulcerations Neck: Supple, No Nodes, Trachea Midline Lungs: - - Globally diminished, poor inspiratory effort. Clear to auscultation, no dullness to percussion Cardiovascular: Regular rate, Regular Rhythm, Normal S1, Normal S2, No murmurs, No rub noted, No Gallop, - - Distant heart sounds secondary to body habitus Abdomen: Bowel Sounds Present, Soft, Non Tender, Non-Distended, Obese Extremities: No clubbing, No cyanosis, Capillary Refill Less than 3 Seconds, Edema, - - Lower extremity venous stasis changes Skin: No rashes, No breakdown Musculoskeletal: No Tenderness to Palpation of Joints or Extremities Lymphatic: No Cervical, Supraclavicular, or Inguinal Adenopathy Neurological: Cranial nerves II-XII grossly intact, Neuro grossly intact, Motor Exam 5/5 strength throughout Psych/Mental Status: Flat Affect Vital Signs Temp Pulse Resp BP Pulse Ox 98.4 F 53 L 16 140/77 H 95 08/05/17 06:55 08/05/17 10:28 08/05/17 08:32 08/05/17 06:55 08/05/17 08:32 Oxygen Flow Rate 2 Oxygen Delivery Method Room Air Weight: 377 lb 10.429 oz Body Mass Index (BMI) 51.2 Intake and Output for Last 24 Hours 08/03/17 08/04/17 08/05/17 23:59 23:59 23:59 Intake Total 240 / 240 867 / 867 Output Total 400 / 400 Balance 240 / 240 467 / 467 Laboratory Tests Past 24 Hrs 08/05/17 08/05/17 08/05/17 06:25 06:25 06:25 WBC 6.2 RBC 4.40 L Hgb 12.6 L Hct 38.8 L MCV 88.2 MCH 28.6 MCHC 32.5 RDW 13.6 RDW Differential 42.6 Plt Count 209 MPV 9.3 Immature Gran % (Auto) 0.300 Neut % (Auto) 63.2 Lymph % (Auto) 21.9 [place] % (Auto) 10.3 H Eos % (Auto) 3.7 Baso % (Auto) 0.6 Absolute Neuts (auto) 3.9 Absolute Lymphs (auto) 1.36 Total Counted Not Reportable ESR Specimen Type Sample Site pH Bicarbonate Actual POC Total CO2 Base Excess O2 Saturation ABG pCO2 ABG pO2 Randy Test O2 Delivery Device Blood Gas Notified Whom Blood Gas Notified Time Sodium 140 Potassium 3.9 Chloride 106 Carbon Dioxide 26.0 Anion Gap 8 BUN 22 H Creatinine 1.69 H Estim Creat Clear Calc 40.82 Est GFR (MDRD) Af Amer 51 L Est GFR (MDRD) Non-Af 42 L BUN/Creatinine Ratio 13.0 Glucose 180 H Calcium 8.3 L C-React Prot Ext Range PSA Screen 1.10 08/05/17 08/05/17 08/05/17 06:25 06:28 10:50 WBC RBC Hgb Hct MCV MCH MCHC RDW RDW Differential Plt Count MPV Immature Gran % (Auto) Neut % (Auto) Lymph % (Auto) [place] % (Auto) Eos % (Auto) Baso % (Auto) Absolute Neuts (auto) Absolute Lymphs (auto) Total Counted ESR 41 H Specimen Type ART Sample Site R Radial pH 7.39 Bicarbonate Actual 27.6 H POC Total CO2 29 Base Excess 3 H O2 Saturation 92 L ABG pCO2 45.7 H ABG pO2 64 L Randy Test POS O2 Delivery Device Room Air Blood Gas Notified Whom [facility] Blood Gas Notified Time 1055 Sodium Potassium Chloride Carbon Dioxide Anion Gap BUN Creatinine Estim Creat Clear Calc Est GFR (MDRD) Af Amer Est GFR (MDRD) Non-Af BUN/Creatinine Ratio Glucose Calcium C-React Prot Ext Range 21.60 H PSA Screen POC Glucose 08/05/17 08/05/17 08:23 00:24 POC Glucose 191 H 111 H Assessment/Plan Active and Suspected Problems Altered mental status (Acute) Debility (Acute) RECOMMENDATIONS 1. Wean oxygen supplementation to keep saturations 88-92%. 2. Encourage incentive spirometer 3. Increase activity as tolerated, PT/OT consult 4. Continue aerosols 5. Maintain BiPAP with naps and nightly, with settings of 27/21 6. Continue antibiotics per ID recommendations 7. Patient scheduled for repeat PSG 08/26/17, this appointment can be moved up pending word patient goes on discharge. He will likely need long-term for rehab upon discharge secondary to his weakness. IMPRESSIONS 1. Metabolic/infectious encephalopathy Patient appears to be mentating appropriately at this time, however he is slow to respond and a poor historian. This may be his baseline. His serum bicarb does not indicate chronic CO2 retention and his ABG showed mild CO2 retention. Will initiate BiPAP with naps and nightly, avoid sedating medications. He will be treated for underlying cystitis. 2. Weakness/debility Likely secondary to deconditioning from immobility, as well as his multiple comorbidities. The patient has been relatively immobile at home and unable to get out of bed. He has been feeling very fatigued and unable to complete ADLs. I suspect his untreated sleep apnea has a role in his daytime sleepiness. It was recommended he go to long-term facility at discharge from his last admission, however he refused. His management is following, recommend PT consult and ongoing therapy. 3. Recurrent cystitis ID following, continue antibiotics per the recommendations. Urine cultures are pending. 4. Concern for sleep disordered breathing Patient has not been utilizing home PAP secondary to it broke. Recommend the patient utilize noninvasive positive pressure ventilation with naps and nightly, with settings of . Patient is scheduled for repeat polysomnogram on August 26. If he ends up going home on discharge, this appointment can be moved up and possibly patient can be discharged from the hospital straight to the sleep lab. He declined to follow with pulmonary medicine at discharge from his last admission, however an appointment can be offered if patient desires to follow-up as an outpatient. Please encourage incentive spirometer/PEP therapy and increase activity as tolerated. Patient should be up to the chair for meals. 5. Super morbid obesity/chronic kidney disease/diabetes mellitus/retention/hyperlipidemia/depression Complicates care, management, recovery, and prognosis. Okay to continue baseline outpatient medications, however would avoid sedating medications given his untreated sleep apnea. Thank you for the opportunity to participate in this patient's care, please do not hesitate to contact us with any further questions or concerns. This note was generated with [employer] software. It may contain incorrect words, spelling, and punctuation that were not noted in checking the note before signing.
--- NOTE | 2017-08-05 12:14 | CON.PCM_ITS ---
Problem List (1) History of kidney stones Status: Chronic (2) COPD (chronic obstructive pulmonary disease) Status: Chronic (3) Type II diabetes mellitus, uncontrolled Status: Chronic Qualifiers: (4) History of depression Status: Chronic (5) History of other venous thrombosis and embolism Status: Chronic (6) HLD (hyperlipidemia) Status: Chronic (7) HTN (hypertension) Status: Chronic (8) Morbid obesity Status: Chronic (9) NILO (obstructive sleep apnea) Status: Chronic (10) Chronic renal failure, stage 3 (moderate) Status: Chronic (11) Bifascicular bundle branch block Status: Chronic (12) Debility Status: Acute (13) Noncompliance Status: Chronic Reason for Consult Date of Consultation: 08/05/17 Reason for Consultation: untreated NILO History of Present Illness: The patient is a 76 year old M with past medical history as below who presented to the ER on 08/04 with complaints of weakness. Patient is a notably poor historian. He does endorse weakness, immobility, and generalized malaise at home. He has not been wearing BiPAP secondary to the machine being broke. He denies any fever, chills, increased sputum production, or cough. He denies any palpitations, syncope, or chest pain. He does get short of breath with any activity. He also complains of dysuria, frequency, and right flank pain but no lower abdominal pain. Denies nausea, vomiting, or diarrhea. Family apparently reported patient has been somewhat confused intermittently over the last several weeks. The patient was admitted from 07/24 - 07/29 for acute metabolic encephalopathy, polymicrobial acute cystitis, and hypoglycemia. Patient was followed by infectious disease and pulmonology at that time. Urine culture at that time revealed Streptococcus agalactiae, MRSA and pseudomonas aeruginosa. He was sent home on amoxicillin with a completion date of 07/31/17. BiPAP settings were changed to , however patient reports he is intolerant to high pressures and feels like he is very bloated. Patient did not have a home oxygen requirement upon discharge. He has been noncompliant in the past. It was strongly suggested the patient also have a repeat polysomnogram as an outpatient , as his previous settings may not have been accurate and too much pressure can lead to excessive leak, however not enough pressure could lead to significant nocturnal hypoxemia. I confirmed the patient has an appointment for repeat polysomnogram on August 26 at [facility]. The patient did not wish to follow with pulmonary medicine upon discharge and was scheduled to see Dr. Nelson, his primary care physician for follow-up. CBC on admit was relatively unremarkable, no leukocytosis and hemoglobin stable. INR was 1.2, patient has not been on his Coumadin. Chemistry remarkable for a chloride of 108, BUN 23 and creatinine 1.77. His albumin remains low at 2.8. Blood and urine cultures were obtained in the emergency room and are pending. Urinalysis did show protein, occult blood, and 500 of leukocyte esterase. There was > 100 urine WBC and rare bacteria with amorphous sediment and yeast. Chest x-ray showed cardiomegaly with mild prominent pulmonary vascular and interstitial markings with early CHF not excluded, there was no large focal airspace disease. Abdominal/pelvis CT showed no evidence of acute process or focal inflammation. No evidence of bowel dilation or air- fluid levels to suggest ileus versus obstruction. There is stable renal cysts. The patient was given a dose of IV Zosyn minute to the medical surgical floor for further evaluation and management. Infectious disease and pulmonary was consulted. An ABG was obtained on room air this morning and showed normal pH at 7.39, PCO2 45.7, and PO2 64. Oxygen saturation correlated at 92%. Bicarb was 27.6. Patient has been maintaining appropriate saturations on room air. He did not wear BiPAP overnight as it was not ordered and he did not request it. Past Medical History Past Medical History (Chronic Problems): Chronic Problems Noncompliance (Chronic) History of kidney stones (Chronic) COPD (chronic obstructive pulmonary disease) (Chronic) Type II diabetes mellitus, uncontrolled (Chronic) History of depression (Chronic) History of other venous thrombosis and embolism (Chronic) HLD (hyperlipidemia) (Chronic) HTN (hypertension) (Chronic) Morbid obesity (Chronic) NILO (obstructive sleep apnea) (Chronic) Chronic renal failure, stage 3 (moderate) (Chronic) Bifascicular bundle branch block (Chronic) Colon polyps (Chronic) Family history of colon cancer (Chronic) Allergies MARGIE Inhibitors Allergy (Unknown, Verified 08/04/17 19:15) Unknown cefepime Allergy (Verified 08/04/17 19:15) Other WEAKNESS & FALLING ipodate [Ipodate] Allergy (Verified 08/04/17 19:15) Shortness of breath levofloxacin [Levofloxacin] Allergy (Verified 08/04/17 19:15) Anaphylaxis lisinopril Allergy (Verified 08/04/17 19:15) Shortness of breath ofloxacin Allergy (Verified 08/04/17 19:15) Unknown Quinolones Allergy (Verified 08/04/17 19:15) Anaphylaxis Home Medications: Ambulatory Orders Medication Instructions Recorded Atorvastatin Calcium [Lipitor] 40 mg PO QHS 05/29/15 Citalopram [Celexa] 40 mg PO DAILY 05/29/15 Docusate Sodium [Colace] 200 mg PO QODAY PRN 05/29/15 Fluticasone 0.05% [Flonase Nasal 1 spray NASAL BID PRN 05/29/15 [place]] Tamsulosin HCl [Flomax] 0.4 mg PO DAILY 07/08/16 Metoprolol Succinate 100 mg PO DAILY 02/08/17 Losartan Potassium [Cozaar] 100 mg PO DAILY 07/24/17 Amoxicillin [Amoxil] 500 mg PO Q8 #12 cap 07/28/17 Insulin U-500 [Humulin R U-500 60 unit SC BREAKFAST #0 07/28/17 ([facility])] Insulin U-500 [Humulin R U-500 60 unit SC DINNER #0 07/28/17 ([facility])] Insulin U-500 [Humulin R U-500 60 unit SC LUNCH #0 07/28/17 ([facility])] Surgical History: - - Circumcision, excision of kidney stone Psychiatric History: Depression Lives: With Family Smoking Status: Former smoker Alcohol: None Drugs: None - *Family History Maternal History Items: Cancer - Patient's mother of cancer but he is not sure what kind of cancer. Paternal History Items: Cancer - Father of colon cancer Offspring History Items: - - He has a son who is morbidly obese and suffers from breathing problems and heart problems. Review of Systems Constitutional: Reports: Malaise, Weakness, Fatigue. Denies: Anorexia, Chills, Fever, Night Sweats, Weight Change Eyes: Denies: Blurred vision, Double vision, Vision Change HEENT: Denies: Difficulty Swallowing, Dysphasia, Head Aches, Nasal bleeding, Nasal Congestion, Post Nasal Drip, Sinus Congestion, Sinus Drainage, Sore Throat , Visual Changes Cardiovascular: Reports: Edema - chronic, no increase, Paroxysmal Noc. Dyspnea. Denies: Chest Pain, Chest Tightness, Light Headedness, Orthopnea, Palpitations , Syncope Respiratory: Reports: Shortness of breath upon exertion. Denies: Cough, Hemoptysis, Shortness of breath at rest, Sputum production, Wheezing Gastrointestinal: Denies: Abdominal Pain, Constipation, Diarrhea, Dyspepsia, Hematemesis, Hematochezia, Nausea, Melena, Vomiting Genitourinary: Reports: Dysuria, Frequency, Incontinence, Nocturia, Retention. Denies: Hematuria Musculoskeletal: Reports: Back Pain - R flank pain Skin: Reports: Dryness, - - venous stasis changes. Denies: Pruritis, Wounds Neurological: Reports: Balance problems - weak, legs buckle, Confusion. Denies: Change in Speech, Difficulty swallowing, Numbness, Tingling, Tremor, Seizures Psychiatric: Reports: Depression. Denies: Anxiety, Suicidal Ideations Endocrine: Denies: Change in Body Habitus, Polydipsia, Polyuria Hematologic/ Lymphatic: Reports: Hx of blood clot. Denies: Adenopathy, Anemia, Easy Bruising, Easy Bleeding Patient Problems: Active and Suspected Problems Altered mental status (Acute) Debility (Acute) Subjective: Patient was seen and examined. He has a very flat affect and is a poor historian. He does know he has an appointment on August 26 for outpatient polysomnogram. Patient denies any current shortness of breath, cough, sputum production, chest pain, palpitations, or dizziness. He has been somewhat bradycardic, as he was last admission as well. Pulses range from 47-74 bpm. Patient remains afebrile and hemodynamically stable. Objective: Clinical Impression(s) from Imaging Studies Abdomen/Pelvis CT 08/04/17 19:56 IMPRESSION: 1. No evidence of acute abdominal process or focal inflammation. No evidence of bowel dilatation or air-fluid levels to suggest ileus versus obstruction. Stable renal cysts compared to 2017 exam. Electronically Signed: Juanito Case DO at 21:28 EST , Service support , Chest X-Ray 08/04/17 20:10 IMPRESSION: Cardiomegaly with mild prominent pulmonary vascular and interstitial markings with early CHF not excluded. No large focal airspace disease. Electronically Signed: Juanito Case DO at 20:42 EST , Service support , - Physical Exam General: Alert, Oriented x3, Cooperative, No apparent distress, - - very flat affect. No conversational dyspnea, speaking in complete sentences HEENT: Atraumatic, Normocephalic Oral: Moist Mucosa, No Gingival or Mucosal Lesions/ Ulcerations Neck: Supple, No Nodes, Trachea Midline Lungs: - - Globally diminished, poor inspiratory effort. Clear to auscultation , no dullness to percussion Cardiovascular: Regular rate, Regular Rhythm, Normal S1, Normal S2, No murmurs, No rub noted, No Gallop, - - Distant heart sounds secondary to body habitus Abdomen: Bowel Sounds Present, Soft, Non Tender, Non-Distended, Obese Extremities: No clubbing, No cyanosis, Capillary Refill Less than 3 Seconds, Edema, - - Lower extremity venous stasis changes Skin: No rashes, No breakdown Musculoskeletal: No Tenderness to Palpation of Joints or Extremities Lymphatic: No Cervical, Supraclavicular, or Inguinal Adenopathy Neurological: Cranial nerves II-XII grossly intact, Neuro grossly intact, Motor Exam 5/5 strength throughout Psych/Mental Status: Flat Affect Vital Signs Temp Pulse Resp BP Pulse Ox 98.4 F 53 L 16 140/77 H 95 08/05/17 06:55 08/05/17 10:28 08/05/17 08:32 08/05/17 06:55 08/05/17 08:32 Oxygen Flow Rate 2 Oxygen Delivery Method Room Air Weight: 377 lb 10.429 oz Body Mass Index (BMI) 51.2 Intake and Output for Last 24 Hours 08/03/17 08/04/17 08/05/17 23:59 23:59 23:59 Intake Total 240 / 240 867 / 867 Output Total 400 / 400 Balance 240 / 240 467 / 467 Laboratory Tests Past 24 Hrs 08/05/17 08/05/17 08/05/17 06:25 06:25 06:25 WBC 6.2 RBC 4.40 L Hgb 12.6 L Hct 38.8 L MCV 88.2 MCH 28.6 MCHC 32.5 RDW 13.6 RDW Differential 42.6 Plt Count 209 MPV 9.3 Immature Gran % (Auto) 0.300 Neut % (Auto) 63.2 Lymph % (Auto) 21.9 Sampson % (Auto) 10.3 H Eos % (Auto) 3.7 Baso % (Auto) 0.6 Absolute Neuts (auto) 3.9 Absolute Lymphs (auto) 1.36 Total Counted Not Reportable ESR Specimen Type Sample Site pH Bicarbonate Actual POC Total CO2 Base Excess O2 Saturation ABG pCO2 ABG pO2 Randy Test O2 Delivery Device Blood Gas Notified Whom Blood Gas Notified Time Sodium 140 Potassium 3.9 Chloride 106 Carbon Dioxide 26.0 Anion Gap 8 BUN 22 H Creatinine 1.69 H Estim Creat Clear Calc 40.82 Est GFR (MDRD) Af Amer 51 L Est GFR (MDRD) Non-Af 42 L BUN/Creatinine Ratio 13.0 Glucose 180 H Calcium 8.3 L C-React Prot Ext Range PSA Screen 1.10 08/05/17 08/05/17 08/05/17 06:25 06:28 10:50 WBC RBC Hgb Hct MCV MCH MCHC RDW RDW Differential Plt Count MPV Immature Gran % (Auto) Neut % (Auto) Lymph % (Auto) Sampson % (Auto) Eos % (Auto) Baso % (Auto) Absolute Neuts (auto) Absolute Lymphs (auto) Total Counted ESR 41 H Specimen Type ART Sample Site R Radial pH 7.39 Bicarbonate Actual 27.6 H POC Total CO2 29 Base Excess 3 H O2 Saturation 92 L ABG pCO2 45.7 H ABG pO2 64 L Randy Test POS O2 Delivery Device Room Air Blood Gas Notified Whom [facility] Blood Gas Notified Time 1055 Sodium Potassium Chloride Carbon Dioxide Anion Gap BUN Creatinine Estim Creat Clear Calc Est GFR (MDRD) Af Amer Est GFR (MDRD) Non-Af BUN/Creatinine Ratio Glucose Calcium C-React Prot Ext Range 21.60 H PSA Screen POC Glucose 08/05/17 08/05/17 08:23 00:24 POC Glucose 191 H 111 H Assessment/Plan Active and Suspected Problems Altered mental status (Acute) Debility (Acute) RECOMMENDATIONS 1. Wean oxygen supplementation to keep saturations 88-92%. 2. Encourage incentive spirometer 3. Increase activity as tolerated, PT/OT consult 4. Continue aerosols 5. Maintain BiPAP with naps and nightly, with settings of 27/21 6. Continue antibiotics per ID recommendations 7. Patient scheduled for repeat PSG 08/26/17, this appointment can be moved up pending word patient goes on discharge. He will likely need [facility] for rehab upon discharge secondary to his weakness. IMPRESSIONS 1. Metabolic/infectious encephalopathy Patient appears to be mentating appropriately at this time, however he is slow to respond and a poor historian. This may be his baseline. His serum bicarb does not indicate chronic CO2 retention and his ABG showed mild CO2 retention. Will initiate BiPAP with naps and nightly, avoid sedating medications. He will be treated for underlying cystitis. 2. Weakness/debility Likely secondary to deconditioning from immobility, as well as his multiple comorbidities. The patient has been relatively immobile at home and unable to get out of bed. He has been feeling very fatigued and unable to complete ADLs. I suspect his untreated sleep apnea has a role in his daytime sleepiness. It was recommended he go to [facility] facility at discharge from his last admission, however he refused. His management is following, recommend PT consult and ongoing therapy. 3. Recurrent cystitis ID following, continue antibiotics per the recommendations. Urine cultures are pending. 4. Concern for sleep disordered breathing Patient has not been utilizing home PAP secondary to it broke. Recommend the patient utilize noninvasive positive pressure ventilation with naps and nightly , with settings of . Patient is scheduled for repeat polysomnogram on August 26. If he ends up going home on discharge, this appointment can be moved up and possibly patient can be discharged from the hospital straight to the sleep lab. He declined to follow with pulmonary medicine at discharge from his last admission, however an appointment can be offered if patient desires to follow-up as an outpatient. Please encourage incentive spirometer/PEP therapy and increase activity as tolerated. Patient should be up to the chair for meals. 5. Super morbid obesity/chronic kidney disease/diabetes mellitus/retention/ hyperlipidemia/depression Complicates care, management, recovery, and prognosis. Okay to continue baseline outpatient medications, however would avoid sedating medications given his untreated sleep apnea. Thank you for the opportunity to participate in this patient's care, please do not hesitate to contact us with any further questions or concerns. This note was generated with Cu[employer]date[employer] software. It may contain incorrect words, spelling, and punctuation that were not noted in checking the note before signing.
--- NOTE | 2017-08-05 12:30 | CASEMGMT ---
Readmission Note. PT was dc'd from [facility] on 07/24/17-07/28/17. PT/OT recommended further skilled therapy but pt declined and went home. Returns now with weakness, inability to ambulate. Discussed need for skilled therapy on dc as pt is readmission, unable to care for self @ home. He will consider. Per KALI Etienne, sleep study is scheduled on August. SW referral for possible SNF placement. Tigist ASCENCION RN ACM
--- NOTE | 2017-08-05 12:36 | CPS ---
Asked pt if his CPAP machine had been fixed or replaced. he says it is still broke. pt was using a BIPAP during his last hospital stay, settings of with 25%. This RT talked with him and reassured him that a BIPAP will be brought in for use tonight. This was also discussed with Dr Yusuf.
--- NOTE | 2017-08-05 12:44 | NURSING ---
spoke with Blanco from pharmacy regarding U-500 dose. our policy only allows order to be entered in ml. per pt dose and understanding that pt uses normal insulin syringe, the proper dose would be 0.6 ml or 300 units. verified that the pharmacy ([facility] in [place]) gave normal insulin syringe. however, they informed this RN that the pt last had the medication filled on 06.14.17 and it is a 28 day supply. it has not been refilled since then. explained to Blanco and we will monitor closely for s/s of hypoglycemia.
[2017-08-05 13:06] LABS: Bedside Glucose 276 mg/dL (70-110)
--- NOTE | 2017-08-05 13:58 | CASEMGMT ---
Addendum entered by Inga Onofre 08/05/17 16:15: SW spoke w/physician, she would like to meet w/pt and family tomorrow. SW called pt's , explained the doctor would like to meet w/her, and any other family is welcome also, to discuss what is going on w/pt and the plan from here. states she is coming in tomorrow w/her daughter, but does not know what time as her daughter is the drivers license examiner. SW asked to let RN know when she is here that doctor would like to speak w/her, and we will call the physician to meet w/her, daughter and pt. states understanding. SW will continue to follow. TANK Manning, DIRECTOR HRIS Original Note: As per DITCHING MACHINE OPERATOR, pt may need SNF at discharge. SW spoke w/PT, pt is moving well, would benefit from further therapy however. SW spoke w/pt in room in regard to discharge plan. Pt is not certain what he would like to do, go home or to a facility. Pt has never been to a senior care before. SW reviewed options w/pt, also reviewed how SNF is covered by Medicare. Pt states he wants to think about it, will speak w/his tonight and let this SW know in the morning. SW did explain TCU here in the hospital would have a bed for pt if needed. SW will follow up w/pt tomorrow. TANK Manning, DIRECTOR HRIS
[2017-08-05 17:46] LABS: Bedside Glucose 355 mg/dL (70-110)
[2017-08-05 17:58] LABS: International Normalized Ratio 1.1; Prothrombin Time (Protime)PT. 13.9 SECONDS (11.7-14.9)
[2017-08-05] MEDS: Enoxaparin 100 MG/ML Syringe 170 MG SC (18:14)
[2017-08-05] MEDS: Atorvastatin Calcium 40 MG Tablet PO (21:11)
[2017-08-05] MEDS: Nystatin Powder 15gm Bottle 1 APPLIC TOPICAL (21:12)
[2017-08-05 21:26] LABS: Bedside Glucose 245 mg/dL (70-110)
[2017-08-06] VITALS (13 sets, daily range): BP systolic 110–189; BP diastolic 55–80; PULSE 50–73; RESP 14–22; TEMP 36.2–36.9; O2SAT 92–99
[2017-08-06] MEDS: Ipratropium/Albuterol Sulfate 3 ML AMPUL.NEB INHALATION ×3 (00:44→13:11)
[2017-08-06 03:52] LABS: International Normalized Ratio 1.2; Prothrombin Time (Protime)PT. 14.5 SECONDS (11.7-14.9)
--- NOTE | 2017-08-06 03:56 | CPS ---
BiPAP in standby at this time. RN given medicine PO.
[2017-08-06 04:01] LABS: Glucose 44 mg/dL (74-106)
[2017-08-06] MEDS: 0.9% NaCl Peripheral Flush Adult/Peds IV (04:05)
[2017-08-06 04:26] LABS: Bedside Glucose 64 mg/dL (70-110)
[2017-08-06 04:26] LABS: Bedside Glucose 39 mg/dL (70-110)
[2017-08-06 04:26] LABS: Bedside Glucose 85 mg/dL (70-110)
[2017-08-06] MEDS: Enoxaparin 100 MG/ML Syringe 170 MG SC (05:12)
[2017-08-06] MEDS: Piperacil/Tazobactam 3.375 GM/50 ML ML IV (05:13)
[2017-08-06 07:57] LABS: Hemoglobin A1c 8.9 % (4.2-6.3)
--- NOTE | 2017-08-06 08:18 | PN_ITS ---
Patient Problems: Active and Suspected Problems Altered mental status (Acute) Debility (Acute) Subjective: Patient was seen and examined. He is sitting up in the chair in no acute distress. Reports he wore the BiPAP last night but did not sleep secondary to being uncomfortable. He has a very flat affect and is slow to respond, does not provide me much information. He is maintaining appropriate saturations on room air and remains afebrile and hemodynamically stable. He has been seen in consultation by infectious disease. - Physical Exam General: Alert, Oriented x3, Cooperative, - - very flat affect, indifferent HEENT: Atraumatic, Normocephalic Oral: Moist Mucosa, No Gingival or Mucosal Lesions/ Ulcerations Neck: Supple, No Nodes, Trachea Midline, - - large neck circumference Lungs: Clear to auscultation, - - Diminished throughout, poor air movement. No appreciable rhonchi, wheezes, or rales. Cardiovascular: Regular rate, Regular Rhythm, Normal S1, Normal S2, - - Distant heart sounds secondary to body habitus Abdomen: Bowel Sounds Present, Soft, Non Tender, Obese Extremities: No clubbing, No cyanosis, Edema, - - no changes Skin: No rashes Musculoskeletal: No Tenderness to Palpation of Joints or Extremities Lymphatic: No Cervical, Supraclavicular, or Inguinal Adenopathy Neurological: Cranial nerves II-XII grossly intact, Neuro grossly intact, Motor Exam 5/5 strength throughout Psych/Mental Status: Flat Affect Vital Signs Temp Pulse Resp BP Pulse Ox 98.1 F 64 14 110/62 92 08/06/17 04:40 08/06/17 06:38 08/06/17 06:38 08/06/17 04:40 08/06/17 06:38 Oxygen Flow Rate 2 Oxygen Delivery Method CPAP Weight: 377 lb 10.429 oz Body Mass Index (BMI) 51.2 Intake and Output for Last 24 Hours 08/04/17 08/05/17 08/06/17 23:59 23:59 23:59 Intake Total 240 / 240 1647 / 1647 2007 Output Total 400 / 400 250 / 250 Balance 240 / 240 1247 / 1247 1758 / 1758 Laboratory Tests Past 24 Hrs 08/05/17 08/05/17 08/05/17 06:25 06:25 06:28 ESR 41 H PT INR Specimen Type Sample Site pH Bicarbonate Actual POC Total CO2 Base Excess O2 Saturation ABG pCO2 ABG pO2 Randy Test O2 Delivery Device Blood Gas Notified Whom Blood Gas Notified Time Glucose Hemoglobin A1c C-React Prot Ext Range 21.60 H PSA Screen 1.10 08/05/17 08/05/17 08/06/17 10:50 17:33 03:38 ESR PT 13.9 14.5 INR 1.1 1.2 Specimen Type ART Sample Site R Radial pH 7.39 Bicarbonate Actual 27.6 H POC Total CO2 29 Base Excess 3 H O2 Saturation 92 L ABG pCO2 45.7 H ABG pO2 64 L Randy Test POS O2 Delivery Device Room Air Blood Gas Notified Whom [facility] Blood Gas Notified Time 1055 Glucose Hemoglobin A1c C-React Prot Ext Range PSA Screen 08/06/17 08/06/17 03:38 03:38 ESR PT INR Specimen Type Sample Site pH Bicarbonate Actual POC Total CO2 Base Excess O2 Saturation ABG pCO2 ABG pO2 Randy Test O2 Delivery Device Blood Gas Notified Whom Blood Gas Notified Time Glucose 44 L* Hemoglobin A1c 8.9 H C-React Prot Ext Range PSA Screen POC Glucose 08/06/17 08/06/17 08/06/17 04:19 03:56 03:19 POC Glucose 85 64 L 39 L* 08/05/17 08/05/17 08/05/17 21:10 16:52 12:52 POC Glucose 245 H 355 H 276 H 08/05/17 08:23 POC Glucose 191 H Assessment/Plan Active and Suspected Problems Altered mental status (Acute) Debility (Acute) RECOMMENDATIONS 1. Wean oxygen supplementation to keep saturations 88-92%. 2. Encourage incentive spirometer 3. Increase activity as tolerated, PT/OT 4. Continue aerosols 5. Maintain BiPAP with naps and nightly, with settings of 6. Continue antibiotics per ID recommendations 7. Patient scheduled for repeat PSG 08/26/17, this appointment can be moved up pending where patient goes on discharge. He will likely need [facility] for rehab upon discharge secondary to his weakness. 8. It was recommended patient follow up with pulmonary medicine for NILO after his last hospitalization, however he opted to follow with his PCP for his pulmonary issues. He can be offered an appointment if he so desires. IMPRESSIONS 1. Metabolic/infectious encephalopathy Patient appears to be mentating appropriately at this time, however he is slow to respond and a poor historian. This may be his baseline. His serum bicarb does not indicate chronic CO2 retention and his ABG showed mild CO2 retention. Will initiate BiPAP with naps and nightly, avoid sedating medications. He will be treated for underlying cystitis per ID recommendations. 2. Weakness/debility Likely secondary to deconditioning from immobility, as well as his multiple comorbidities. The patient has been relatively immobile at home and unable to get out of bed. He has been feeling very fatigued and unable to complete ADLs. I suspect his untreated sleep apnea has a role in his daytime sleepiness. It was recommended he go to [facility] facility at discharge from his last admission, however he refused. His management is following, recommend PT consult and ongoing therapy. 3. Recurrent cystitis ID following, continue antibiotics per the recommendations. Urine cultures MRSA and 2 other gram-positive organisms. 4. Concern for sleep disordered breathing Patient has not been utilizing home PAP secondary to it broke. Recommend the patient utilize noninvasive positive pressure ventilation with naps and nightly , with settings of 27/21. Patient is scheduled for repeat polysomnogram on August 26. If he ends up going home on discharge, this appointment can be moved up and possibly patient can be discharged from the hospital straight to the sleep lab. He declined to follow with pulmonary medicine at discharge from his last admission, however an appointment can be offered if patient desires to follow-up as an outpatient. Please encourage incentive spirometer/PEP therapy and increase activity as tolerated. Patient should be up to the chair for meals. 5. Super morbid obesity/chronic kidney disease/diabetes mellitus/retention/ hyperlipidemia/depression Complicates care, management, recovery, and prognosis. Okay to continue baseline outpatient medications, however would avoid sedating medications given his untreated sleep apnea. Thank you for the opportunity to participate in this patient's care, please do not hesitate to contact us with any further questions or concerns. This note was generated with elarm dictation software. It may contain incorrect words, spelling, and punctuation that were not noted in checking the note before signing.
[2017-08-06] MEDS: Tamsulosin HCl 0.4 MG Capsule PO (08:41)
[2017-08-06] MEDS: Citalopram 40 MG TABLET PO (08:41)
[2017-08-06] MEDS: Losartan Potassium 100 MG Tablet PO (08:41)
[2017-08-06] MEDS: Nystatin Powder 15gm Bottle 1 APPLIC TOPICAL (08:42)
[2017-08-06 09:56] LABS: Bedside Glucose 82 mg/dL (70-110)
--- NOTE | 2017-08-06 10:45 | CASEMGMT ---
Discussed DC planning with physicians/SW. plan is for TCU with sleep study on dc from TCU. Tigist ASCENCION RN ACM
--- NOTE | 2017-08-06 10:45 | PN.ID_ITS ---
Patient Problems: Active and Suspected Problems Altered mental status (Acute) Debility (Acute) Subjective: Feeling better, family at bedside. No fever, no abd pain, no dysuria. - Physical Exam Lungs: Clear to auscultation, Diminished Cardiovascular: Regular rate, Regular Rhythm Abdomen: Soft, Non Tender, Non-Distended, Obese Skin: No rashes Vital Signs Temp Pulse Resp BP Pulse Ox 97.2 F L 51 L 16 156/80 H 96 08/06/17 08:50 08/06/17 08:50 08/06/17 08:50 08/06/17 08:50 08/06/17 08:50 Oxygen Flow Rate 2 Oxygen Delivery Method Room Air Weight: 171.3 kg Body Mass Index (BMI) 51.2 Intake and Output for Last 24 Hours 08/04/17 08/05/17 08/06/17 23:59 23:59 23:59 Intake Total 240 / 240 1647 / 1647 2007 Output Total 400 / 400 250 / 250 Balance 240 / 240 1247 / 1247 1758 / 1758 Laboratory Tests Past 24 Hrs 08/05/17 08/05/17 08/05/17 06:25 06:28 10:50 ESR 41 H PT INR Specimen Type ART Sample Site R Radial pH 7.39 Bicarbonate Actual 27.6 H POC Total CO2 29 Base Excess 3 H O2 Saturation 92 L ABG pCO2 45.7 H ABG pO2 64 L Randy Test POS O2 Delivery Device Room Air Blood Gas Notified Whom [facility] Blood Gas Notified Time 1055 Glucose Hemoglobin A1c C-React Prot Ext Range 21.60 H 08/05/17 08/06/17 08/06/17 17:33 03:38 03:38 ESR PT 13.9 14.5 INR 1.1 1.2 Specimen Type Sample Site pH Bicarbonate Actual POC Total CO2 Base Excess O2 Saturation ABG pCO2 ABG pO2 Randy Test O2 Delivery Device Blood Gas Notified Whom Blood Gas Notified Time Glucose Hemoglobin A1c 8.9 H C-React Prot Ext Range 08/06/17 03:38 ESR PT INR Specimen Type Sample Site pH Bicarbonate Actual POC Total CO2 Base Excess O2 Saturation ABG pCO2 ABG pO2 Randy Test O2 Delivery Device Blood Gas Notified Whom Blood Gas Notified Time Glucose 44 L* Hemoglobin A1c C-React Prot Ext Range POC Glucose 08/06/17 08/06/17 08/06/17 08:27 04:19 03:56 POC Glucose 82 85 64 L 08/06/17 08/05/17 08/05/17 03:19 21:10 16:52 POC Glucose 39 L* 245 H 355 H 08/05/17 12:52 POC Glucose 276 H Route of nutrition/ use of supplements: [] Nutritional Intake: [] IV Site: [] Lane Catheter: [] - Assessment/Plan Antibiotics: [] Assessment/Plan: [] Altered mental status - recent ucx with strep, MRSA, PsA. Heavy pyruia on UA and heavy MRSA on Ucx; bcx are neg. No fever, no leukocytosis, denies abd pain or dysuria. Recommend 10 day course of po doxy for complicated MRSA uti. No stone seen on CT this admission. will follow, d/w Dr. Yusuf.
[2017-08-06] MEDS: Doxycycline 100 MG CAPSULE PO (11:49)
[2017-08-06 12:05] LABS: Bedside Glucose 153 mg/dL (70-110)
--- NOTE | 2017-08-06 14:12 | CASEMGMT ---
Addendum entered by Inga Onofre 08/06/17 15:15: SW faxed all discharge instructions to TCU. No further needs. TANK Manning, [employer]IST Original Note: SW and physician met w/pt, daughter and in room. Physician reviewed w/pt and family pt's medical condition, in particular his sleep apnea. After discussing w/pt and family, pt agreeable to TCU and has a sleep study scheduled for 08/26/17. Pt also agreeable to see Dr. Malone as an outpt(SW asked dental secretary to make appt). Pt's daughter states she thought the sleep study was rescheduled for Thursday. SW explained will call to find out. SW confirmed w/[facility] they can take pt, pt had a 3 day stay here in the last 30 days so is already qualified to go to TCU under Medicare, pt can go to TCU today. YORDY spoke to Cindy in the sleep lab, confirmed pt's appt is still on 08/26. She will call [facility] or Negar in TCU if they are able to get pt in sooner. SW spoke w/pt, let him know that he can go to TCU today, the sleep study is still 08/26 but if they have an opening sooner they will call TCU. Pt's has left, pt agreeable to have SW call to let her know pt is going to TCU today. She states sleep lab already called her and his sleep study is now the 27th. Pt to TCU today. No further SW needs. TANK Manning, OUTSIDE EVENT SALES SPECIALIST
--- NOTE | 2017-08-06 14:26 | PCM.TXEXTCAR ---
- Diet 08/04/17 22:54 Diet: Calorie Controlled How many daily calories?: 1800 calorie - Routine Orders/Code Status Enema Type: Fleetz Enema Frequency: Daily PRN Suppository Type: Dulcolax 10mg Suppository Frequency: Daily PRN O2 Liters per Minute: 25% FIO2 when he has BIPAP on Keep PO Greater than or Equal to (%): 88 - pt is a CO2 retainer keep the O2 sat between 89-93% - Therapies Weight Bearing: Full weight bearing Physical Therapy: Eval and Treat Occupational Therapy: Eval and Treat - Problem/Diagnosis (1) Metabolic encephalopathy Status: Acute Current Visit: Yes (2) Debility Status: Chronic Current Visit: Yes (3) Noncompliance Status: Chronic Comment: with CPAP and follow up and with diet Current Visit: Yes (4) History of kidney stones Status: Chronic Current Visit: No (5) COPD (chronic obstructive pulmonary disease) Status: Chronic Current Visit: No (6) Type II diabetes mellitus, uncontrolled Status: Chronic Current Visit: No (7) History of depression Status: Chronic Current Visit: No (8) History of other venous thrombosis and embolism Status: Chronic Current Visit: No (9) HLD (hyperlipidemia) Status: Chronic Current Visit: No (10) HTN (hypertension) Status: Chronic Current Visit: No (11) NILO (obstructive sleep apnea) Status: Chronic Current Visit: No (12) Chronic renal failure, stage 3 (moderate) Status: Chronic Current Visit: No (13) Bifascicular bundle branch block Status: Chronic Current Visit: No (14) Colon polyps Status: Chronic Current Visit: No (15) Family history of colon cancer Status: Chronic Current Visit: No (16) Cystitis Status: Acute Comment: due to MRSA Current Visit: No (17) MRSA (methicillin resistant staph aureus) culture positive Status: Acute Current Visit: No (18) Subtherapeutic international normalized ratio (INR) Status: Acute Current Visit: No (19) BPH (benign prostatic hyperplasia) Status: Chronic Current Visit: No (20) History of nephrolithiasis Status: Chronic Current Visit: No (21) Super obesity Status: Chronic Current Visit: No - Allergies/Procedures Done in Hospital Allergies/Adverse Reactions: Allergies MARGIE Inhibitors Allergy (Unknown, Verified 08/04/17 19:15) Unknown cefepime Allergy (Verified 08/04/17 19:15) Other WEAKNESS & FALLING ipodate [Ipodate] Allergy (Verified 08/04/17 19:15) Shortness of breath levofloxacin [Levofloxacin] Allergy (Verified 08/04/17 19:15) Anaphylaxis lisinopril Allergy (Verified 08/04/17 19:15) Shortness of breath ofloxacin Allergy (Verified 08/04/17 19:15) Unknown Quinolones Allergy (Verified 08/04/17 19:15) Anaphylaxis Procedures: None - Type of Care/Length of Stay Estimated LOS: Convalescent Care Less Than 30 days Type of Care Needed: Skilled Rehab Potential: Good Prognosis: Good - Additional Orders/Day of Discharge Additional Orders: He must be on BIPAP anytime he is sleeping and also with naps. The settings are IPAP 27 and EPAP 21. The FIO2 on BIPAP should be 25%. He does not need oxygen while awake. No oxygen unless the pulse ox is <89% and if you use oxygen then only give enough to keep the sat between 89-93%. Please check the blood sugars AC and HS. He is scheduled for a sleep study on 08/18 and he will need to follow up with Dr. Malone after the sleep study to arrange for home BIPAP. H&P will serve as current which was dated: 08/04/17 Day of Discharge: 08/06/17 - Dietary and Speech Recommendations Dietitian Recommendations/Changes: Rec 1999 calorie controlled diet. - Follow Up Care Primary Care Physician: Wili Nelson DO [Primary Care Provider] - Please follow up with your Primary Care Physician in: following DC from TCU Please Follow Up With: Aicha Szymanski NP-C When: 1 week after DC from TCU
--- NOTE | 2017-08-06 14:38 | PCM.DC.SUM ---
Discharge Date and Diagnosis - Problem List Patient Problems: Active and Suspected Problems Metabolic encephalopathy (Acute) MRSA (methicillin resistant staph aureus) culture positive (Acute) Subtherapeutic international normalized ratio (INR) (Acute) Cystitis (Acute) due to MRSA Date of Admission: 08/04/17 Date of Discharge: 08/06/17 - Primary Discharge Diagnosis Active and Suspected Problems Metabolic encephalopathy (Acute) due to untreated NILO MRSA (methicillin resistant staph aureus) culture positive (Acute) - urine Subtherapeutic international normalized ratio (INR) (Acute) Cystitis (Acute) - due to MRSA - Secondary Discharge Diagnosis Chronic Problems BPH (benign prostatic hyperplasia) (Chronic) 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 History of nephrolithiasis (Chronic) Debility (Chronic) Noncompliance (Chronic) with CPAP and follow up and with diet History of kidney stones (Chronic) COPD (chronic obstructive pulmonary disease) (Chronic) Type II diabetes mellitus, uncontrolled (Chronic) History of depression (Chronic) History of other venous thrombosis and embolism (Chronic) HLD (hyperlipidemia) (Chronic) HTN (hypertension) (Chronic) NILO (obstructive sleep apnea) (Chronic) Chronic renal failure, stage 3 (moderate) (Chronic) Bifascicular bundle branch block (Chronic) Colon polyps (Chronic) Family history of colon cancer (Chronic) Hospital Course and Treatment Imaging Results: Clinical Impression(s) from Imaging Studies Abdomen/Pelvis CT 08/04/17 19:56 IMPRESSION: 1. No evidence of acute abdominal process or focal inflammation. No evidence of bowel dilatation or air-fluid levels to suggest ileus versus obstruction. Stable renal cysts compared to 2017 exam. Electronically Signed: Juanito Case DO at 21:28 EST , Service support , Chest X-Ray 08/04/17 20:10 IMPRESSION: Cardiomegaly with mild prominent pulmonary vascular and interstitial markings with early CHF not excluded. No large focal airspace disease. Electronically Signed: Juanito Case DO at 20:42 EST , Service support , Laboratory Tests 08/04/17 08/04/17 08/04/17 20:10 20:10 20:10 WBC 8.5 RBC 4.70 Hgb 13.5 Hct 41.1 MCV 87.4 MCH 28.7 MCHC 32.8 RDW 13.8 RDW Differential 42.6 Plt Count 244 MPV 9.9 Immature Gran % (Auto) 0.400 Neut % (Auto) 71.4 H Lymph % (Auto) 14.2 L [place] % (Auto) 10.1 H Eos % (Auto) 3.4 Baso % (Auto) 0.5 Absolute Neuts (auto) 6.1 Absolute Lymphs (auto) 1.20 Total Counted Not Reportable ESR PT 14.4 INR 1.2 Specimen Type Sample Site pH Bicarbonate Actual POC Total CO2 Base Excess O2 Saturation ABG pCO2 ABG pO2 Randy Test O2 Delivery Device Blood Gas Notified Whom Blood Gas Notified Time Sodium 142 Potassium 4.1 Chloride 108 H Carbon Dioxide 24.0 Anion Gap 10 BUN 23 H Creatinine 1.77 H Estim Creat Clear Calc 38.97 Est GFR (MDRD) Af Amer 48 L Est GFR (MDRD) Non-Af 40 L BUN/Creatinine Ratio 13.0 Glucose 114 H Hemoglobin A1c Calcium 8.7 Total Bilirubin 0.70 Direct Bilirubin 0.15 AST 13 L ALT 20 Alkaline Phosphatase 89 C-React Prot Ext Range Total Protein 7.3 Albumin 2.8 L Globulin 4.5 H PSA Screen Urine Color Urine Clarity Urine pH Ur Specific [place] Urine Protein Urine Glucose (UA) Urine Ketones Urine Occult Blood Urine Nitrite Urine Bilirubin Urine Urobilinogen Ur Leukocyte Esterase Urine RBC Urine WBC Ur Squamous Epith Cells Amorphous Sediment Urine Bacteria Urine Mucus Urine Yeast POC Glucose 08/04/17 08/05/17 08/05/17 21:25 00:24 06:25 WBC 6.2 RBC 4.40 L Hgb 12.6 L Hct 38.8 L MCV 88.2 MCH 28.6 MCHC 32.5 RDW 13.6 RDW Differential 42.6 Plt Count 209 MPV 9.3 Immature Gran % (Auto) 0.300 Neut % (Auto) 63.2 Lymph % (Auto) 21.9 [place] % (Auto) 10.3 H Eos % (Auto) 3.7 Baso % (Auto) 0.6 Absolute Neuts (auto) 3.9 Absolute Lymphs (auto) 1.36 Total Counted Not Reportable ESR PT INR Specimen Type Sample Site pH Bicarbonate Actual POC Total CO2 Base Excess O2 Saturation ABG pCO2 ABG pO2 Randy Test O2 Delivery Device Blood Gas Notified Whom Blood Gas Notified Time Sodium Potassium Chloride Carbon Dioxide Anion Gap BUN Creatinine Estim Creat Clear Calc Est GFR (MDRD) Af Amer Est GFR (MDRD) Non-Af BUN/Creatinine Ratio Glucose Hemoglobin A1c Calcium Total Bilirubin Direct Bilirubin AST ALT Alkaline Phosphatase C-React Prot Ext Range Total Protein Albumin Globulin PSA Screen Urine Color Yellow Urine Clarity Sl. Cloudy Urine pH 5.0 Ur Specific [place] 1.020 Urine Protein 100 H Urine Glucose (UA) Normal Urine Ketones Negative Urine Occult Blood 50 H Urine Nitrite Negative Urine Bilirubin Negative Urine Urobilinogen Normal Ur Leukocyte Esterase 500 H Urine RBC 0-5 SEEN Urine WBC >100 SEEN Ur Squamous Epith Cells 0-5 SEEN Amorphous Sediment 1+ URATE Urine Bacteria RARE Urine Mucus 0 SEEN Urine Yeast RARE POC Glucose 111 H 08/05/17 08/05/17 08/05/17 06:25 06:25 06:25 WBC RBC Hgb Hct MCV MCH MCHC RDW RDW Differential Plt Count MPV Immature Gran % (Auto) Neut % (Auto) Lymph % (Auto) [place] % (Auto) Eos % (Auto) Baso % (Auto) Absolute Neuts (auto) Absolute Lymphs (auto) Total Counted ESR 41 H PT INR Specimen Type Sample Site pH Bicarbonate Actual POC Total CO2 Base Excess O2 Saturation ABG pCO2 ABG pO2 Randy Test O2 Delivery Device Blood Gas Notified Whom Blood Gas Notified Time Sodium 140 Potassium 3.9 Chloride 106 Carbon Dioxide 26.0 Anion Gap 8 BUN 22 H Creatinine 1.69 H Estim Creat Clear Calc 40.82 Est GFR (MDRD) Af Amer 51 L Est GFR (MDRD) Non-Af 42 L BUN/Creatinine Ratio 13.0 Glucose 180 H Hemoglobin A1c Calcium 8.3 L Total Bilirubin Direct Bilirubin AST ALT Alkaline Phosphatase C-React Prot Ext Range Total Protein Albumin Globulin PSA Screen 1.10 Urine Color Urine Clarity Urine pH Ur Specific [place] Urine Protein Urine Glucose (UA) Urine Ketones Urine Occult Blood Urine Nitrite Urine Bilirubin Urine Urobilinogen Ur Leukocyte Esterase Urine RBC Urine WBC Ur Squamous Epith Cells Amorphous Sediment Urine Bacteria Urine Mucus Urine Yeast POC Glucose 08/05/17 08/05/17 08/05/17 06:28 08:23 10:50 WBC RBC Hgb Hct MCV MCH MCHC RDW RDW Differential Plt Count MPV Immature Gran % (Auto) Neut % (Auto) Lymph % (Auto) [place] % (Auto) Eos % (Auto) Baso % (Auto) Absolute Neuts (auto) Absolute Lymphs (auto) Total Counted ESR PT INR Specimen Type ART Sample Site R Radial pH 7.39 Bicarbonate Actual 27.6 H POC Total CO2 29 Base Excess 3 H O2 Saturation 92 L ABG pCO2 45.7 H ABG pO2 64 L Randy Test POS O2 Delivery Device Room Air Blood Gas Notified Whom [facility] Blood Gas Notified Time 1055 Sodium Potassium Chloride Carbon Dioxide Anion Gap BUN Creatinine Estim Creat Clear Calc Est GFR (MDRD) Af Amer Est GFR (MDRD) Non-Af BUN/Creatinine Ratio Glucose Hemoglobin A1c Calcium Total Bilirubin Direct Bilirubin AST ALT Alkaline Phosphatase C-React Prot Ext Range 21.60 H Total Protein Albumin Globulin PSA Screen Urine Color Urine Clarity Urine pH Ur Specific [place] Urine Protein Urine Glucose (UA) Urine Ketones Urine Occult Blood Urine Nitrite Urine Bilirubin Urine Urobilinogen Ur Leukocyte Esterase Urine RBC Urine WBC Ur Squamous Epith Cells Amorphous Sediment Urine Bacteria Urine Mucus Urine Yeast POC Glucose 191 H 08/05/17 08/05/17 08/05/17 12:52 16:52 17:33 WBC RBC Hgb Hct MCV MCH MCHC RDW RDW Differential Plt Count MPV Immature Gran % (Auto) Neut % (Auto) Lymph % (Auto) [place] % (Auto) Eos % (Auto) Baso % (Auto) Absolute Neuts (auto) Absolute Lymphs (auto) Total Counted ESR PT 13.9 INR 1.1 Specimen Type Sample Site pH Bicarbonate Actual POC Total CO2 Base Excess O2 Saturation ABG pCO2 ABG pO2 Randy Test O2 Delivery Device Blood Gas Notified Whom Blood Gas Notified Time Sodium Potassium Chloride Carbon Dioxide Anion Gap BUN Creatinine Estim Creat Clear Calc Est GFR (MDRD) Af Amer Est GFR (MDRD) Non-Af BUN/Creatinine Ratio Glucose Hemoglobin A1c Calcium Total Bilirubin Direct Bilirubin AST ALT Alkaline Phosphatase C-React Prot Ext Range Total Protein Albumin Globulin PSA Screen Urine Color Urine Clarity Urine pH Ur Specific [place] Urine Protein Urine Glucose (UA) Urine Ketones Urine Occult Blood Urine Nitrite Urine Bilirubin Urine Urobilinogen Ur Leukocyte Esterase Urine RBC Urine WBC Ur Squamous Epith Cells Amorphous Sediment Urine Bacteria Urine Mucus Urine Yeast POC Glucose 276 H 355 H 08/05/17 08/06/17 08/06/17 21:10 03:19 03:38 WBC RBC Hgb Hct MCV MCH MCHC RDW RDW Differential Plt Count MPV Immature Gran % (Auto) Neut % (Auto) Lymph % (Auto) [place] % (Auto) Eos % (Auto) Baso % (Auto) Absolute Neuts (auto) Absolute Lymphs (auto) Total Counted ESR PT 14.5 INR 1.2 Specimen Type Sample Site pH Bicarbonate Actual POC Total CO2 Base Excess O2 Saturation ABG pCO2 ABG pO2 Randy Test O2 Delivery Device Blood Gas Notified Whom Blood Gas Notified Time Sodium Potassium Chloride Carbon Dioxide Anion Gap BUN Creatinine Estim Creat Clear Calc Est GFR (MDRD) Af Amer Est GFR (MDRD) Non-Af BUN/Creatinine Ratio Glucose Hemoglobin A1c Calcium Total Bilirubin Direct Bilirubin AST ALT Alkaline Phosphatase C-React Prot Ext Range Total Protein Albumin Globulin PSA Screen Urine Color Urine Clarity Urine pH Ur Specific [place] Urine Protein Urine Glucose (UA) Urine Ketones Urine Occult Blood Urine Nitrite Urine Bilirubin Urine Urobilinogen Ur Leukocyte Esterase Urine RBC Urine WBC Ur Squamous Epith Cells Amorphous Sediment Urine Bacteria Urine Mucus Urine Yeast POC Glucose 245 H 39 L* 08/06/17 08/06/17 08/06/17 03:38 03:38 03:56 WBC RBC Hgb Hct MCV MCH MCHC RDW RDW Differential Plt Count MPV Immature Gran % (Auto) Neut % (Auto) Lymph % (Auto) [place] % (Auto) Eos % (Auto) Baso % (Auto) Absolute Neuts (auto) Absolute Lymphs (auto) Total Counted ESR PT INR Specimen Type Sample Site pH Bicarbonate Actual POC Total CO2 Base Excess O2 Saturation ABG pCO2 ABG pO2 Randy Test O2 Delivery Device Blood Gas Notified Whom Blood Gas Notified Time Sodium Potassium Chloride Carbon Dioxide Anion Gap BUN Creatinine Estim Creat Clear Calc Est GFR (MDRD) Af Amer Est GFR (MDRD) Non-Af BUN/Creatinine Ratio Glucose 44 L* Hemoglobin A1c 8.9 H Calcium Total Bilirubin Direct Bilirubin AST ALT Alkaline Phosphatase C-React Prot Ext Range Total Protein Albumin Globulin PSA Screen Urine Color Urine Clarity Urine pH Ur Specific [place] Urine Protein Urine Glucose (UA) Urine Ketones Urine Occult Blood Urine Nitrite Urine Bilirubin Urine Urobilinogen Ur Leukocyte Esterase Urine RBC Urine WBC Ur Squamous Epith Cells Amorphous Sediment Urine Bacteria Urine Mucus Urine Yeast POC Glucose 64 L 08/06/17 08/06/17 08/06/17 04:19 08:27 11:50 WBC RBC Hgb Hct MCV MCH MCHC RDW RDW Differential Plt Count MPV Immature Gran % (Auto) Neut % (Auto) Lymph % (Auto) [place] % (Auto) Eos % (Auto) Baso % (Auto) Absolute Neuts (auto) Absolute Lymphs (auto) Total Counted ESR PT INR Specimen Type Sample Site pH Bicarbonate Actual POC Total CO2 Base Excess O2 Saturation ABG pCO2 ABG pO2 Randy Test O2 Delivery Device Blood Gas Notified Whom Blood Gas Notified Time Sodium Potassium Chloride Carbon Dioxide Anion Gap BUN Creatinine Estim Creat Clear Calc Est GFR (MDRD) Af Amer Est GFR (MDRD) Non-Af BUN/Creatinine Ratio Glucose Hemoglobin A1c Calcium Total Bilirubin Direct Bilirubin AST ALT Alkaline Phosphatase C-React Prot Ext Range Total Protein Albumin Globulin PSA Screen Urine Color Urine Clarity Urine pH Ur Specific [place] Urine Protein Urine Glucose (UA) Urine Ketones Urine Occult Blood Urine Nitrite Urine Bilirubin Urine Urobilinogen Ur Leukocyte Esterase Urine RBC Urine WBC Ur Squamous Epith Cells Amorphous Sediment Urine Bacteria Urine Mucus Urine Yeast POC Glucose 85 82 153 H Microbiology 08/05/17 11:30 Urine Catheter - Catheter Urine Culture - Preliminary Gram positive organism Gram positive organism#2 08/04/17 21:25 Urine, Clean Catch Urine Culture - Final Meth. resistant Staph. aureus Dr. Carlos King-infectious disease Dr. Fidel Malone-pulmonary medicine Operations: None Procedures: None Summary of Care Provided: Mr. Louis is a 76-year-old male with a past medical history of diabetes mellitus type 2, COPD, depression, hyperlipidemia, history of nephrolithiasis, hypertension, super obesity, severe obstructive sleep apnea, BPH and chronic renal failure stage III who was brought to the emergency room at [facility] on 08/04/2017 with a complaint of weakness. He was recently admitted to the hospital on 07/24/2017 and discharged on 07/29/2017. He was treated for acute cystitis and metabolic encephalopathy secondary to infection. He was discharged on amoxicillin 500 mg p.o. every 8 hours for 4 days. The urine culture grew MRSA, pseudomonas aeruginosa and group B strep. MRSA and pseudomonas aeruginosa were not covered by amoxicillin. Vital signs at presentation to the emergency room were temperature 98.1, pulse rate 50, blood pressure 154/67, respiratory rate 18 and he was 95% saturated on room air. White blood cell count was normal at 8.5 with 71% neutrophils. Hemoglobin and platelets were within normal limits. Electrolytes were unremarkable and the BUN was 23 with a creatinine of 1.77 which is within his baseline creatinine. LFTs were unremarkable. Urine was nitrite negative but had greater than 100 WBCs per high-power field with rare bacteria. There was also rare yeast present. CT scan of the abdomen and pelvis without IV contrast showed no evidence of acute abdominal process or focal inflammation. There was moderate cortical atrophy of both kidneys and stable renal cysts. There were no stones reported. He was Admitted to the hospital with a diagnosis of acute cystitis, metabolic encephalopathy and generalized weakness and debility. He has a CPAP machine at home but it is broken and he has not attempted to call the [employer] to have it repaired. He has been seen by Dr. Malone in the hospital int he past and be asked to follow up in the office but, he has failed to do this. He was very lethargic when I first examined him on 08/05/17 and difficult to arouse. He could not stay awake while I was talking to him. He was seen in consultation by Dr. Malone and placed on BIPAP . He was compliant with the BIPAP and the following morning he was very alert and able to participate in a family conference with myself, the SW, his and his dtr. After explaining that the reason he is so lethargic and confused is the untreated sleep apnea and not infection he was agreeable to transfer to TCU so that he could remain on BIPAP until his sleep study which is scheduled for 08/18. He is also agreeable to follow up with Dr. Malone in the future for NILO and suspected pulmonary HTN. He was also seen in the hospital by Dr. King from [place] who has recommended 10 days of treatment for MRSA cystitis. He received 3 days of Vanco in the hospital and so will need 7 days of Doxycycline at [place]. He was afebrile for the duration of his hospital stay and the WBC count was normal with a normal diff on 08/05/17. On the day of DC his lungs were diminished but CTA. The heart has a RRR and he has no gallop. He was alert and oriented X 3 and appeared to be in no distress. T INR on the day of DC was 1.2. He was not taking his Coumadin at home. He will need to stay on Lovenox Q 12 hours until the INR is >2.0. He was restarted on Warfarin on 08/05 and takes 5 mg daily. Would check an INR every 24-48 hours until he is therapeutic. He has an appt to follow up in the pulmonary clinic on 08/26. He will follow up with Dr. Nelson following DC from [facility]. This note was generated with [employer] dictation software. It may contain incorrect words, spelling, and punctuation that were not noted in checking the note before signing. Home Medications: Medications to take at Discharge Atorvastatin Calcium [Lipitor] 40 mg PO QHS 05/29/15 Citalopram [Celexa] 40 mg PO DAILY 05/29/15 Docusate Sodium [Colace] 200 mg PO QODAY PRN 05/29/15 Fluticasone 0.05% [Flonase Nasal [place]] 1 spray NASAL BID PRN 05/29/15 Tamsulosin HCl [Flomax] 0.4 mg PO DAILY 07/08/16 Metoprolol Succinate 100 mg PO DAILY 02/08/17 Losartan Potassium [Cozaar] 100 mg PO DAILY 07/24/17 Albuterol Aerosols [Ventolin Aerosols] 2.5 mg INHALATION Q4H PRN PRN vial.neb. 08/06/17 Doxycycline 100 mg PO BID #16 capsule 08/06/17 Enoxaparin [Lovenox] 170 mg SC Q12@0600,1800 syringe 08/06/17 Insulin U-500 [Humulin R U-500 ([facility])] 0.5 ml SC TIDAC ml 08/06/17 Ipratropium/Albuterol Sulfate [Duoneb] 3 ml INHALATION Q6H.RT ampul.neb 08/06/17 Nystatin Powder [Mycostatin Powder] 1 applic TOPICAL BID bottle 08/06/17 Warfarin [Coumadin] 5 mg PO DAILY@1700 tablet 08/06/17 Following Prescrptions Were Given to Patient: Doxycycline 100 mg PO BID #16 capsule Primary Care Physician: Wili Nelson DO [Primary Care Provider] - Please follow up with your Primary Care Physician in: following DC from [facility] Please Follow Up With: Aicha Szymanski NP-C When: 1 week after DC from [facility] Disposition: Correction facility - Transitional care unit Minutes spent on discharge:: 45 Patient Condition:: Good Meaningful Use Info Meaningful Use Diagnoses (Choose all that apply): None applicable Code Visit Inpatient E&M: 64585 Disch Hosp
--- NOTE | 2017-08-06 14:57 | DS.PCM_ITS ---
Discharge Date and Diagnosis - Problem List Patient Problems: Active and Suspected Problems Metabolic encephalopathy (Acute) MRSA (methicillin resistant staph aureus) culture positive (Acute) Subtherapeutic international normalized ratio (INR) (Acute) Cystitis (Acute) due to MRSA Date of Admission: 08/04/17 Date of Discharge: 08/06/17 - Primary Discharge Diagnosis Active and Suspected Problems Metabolic encephalopathy (Acute) due to untreated NILO MRSA (methicillin resistant staph aureus) culture positive (Acute) - urine Subtherapeutic international normalized ratio (INR) (Acute) Cystitis (Acute) - due to MRSA - Secondary Discharge Diagnosis Chronic Problems BPH (benign prostatic hyperplasia) (Chronic) 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 History of nephrolithiasis (Chronic) Debility (Chronic) Noncompliance (Chronic) with CPAP and follow up and with diet History of kidney stones (Chronic) COPD (chronic obstructive pulmonary disease) (Chronic) Type II diabetes mellitus, uncontrolled (Chronic) History of depression (Chronic) History of other venous thrombosis and embolism (Chronic) HLD (hyperlipidemia) (Chronic) HTN (hypertension) (Chronic) NILO (obstructive sleep apnea) (Chronic) Chronic renal failure, stage 3 (moderate) (Chronic) Bifascicular bundle branch block (Chronic) Colon polyps (Chronic) Family history of colon cancer (Chronic) Hospital Course and Treatment Imaging Results: Clinical Impression(s) from Imaging Studies Abdomen/Pelvis CT 08/04/17 19:56 IMPRESSION: 1. No evidence of acute abdominal process or focal inflammation. No evidence of bowel dilatation or air-fluid levels to suggest ileus versus obstruction. Stable renal cysts compared to 2017 exam. Electronically Signed: Juanito Case DO at 21:28 EST , Service support , Chest X-Ray 08/04/17 20:10 IMPRESSION: Cardiomegaly with mild prominent pulmonary vascular and interstitial markings with early CHF not excluded. No large focal airspace disease. Electronically Signed: Juanito Case DO at 20:42 EST , Service support , Laboratory Tests 08/04/17 08/04/17 08/04/17 20:10 20:10 20:10 WBC 8.5 RBC 4.70 Hgb 13.5 Hct 41.1 MCV 87.4 MCH 28.7 MCHC 32.8 RDW 13.8 RDW Differential 42.6 Plt Count 244 MPV 9.9 Immature Gran % (Auto) 0.400 Neut % (Auto) 71.4 H Lymph % (Auto) 14.2 L [place] % (Auto) 10.1 H Eos % (Auto) 3.4 Baso % (Auto) 0.5 Absolute Neuts (auto) 6.1 Absolute Lymphs (auto) 1.20 Total Counted Not Reportable ESR PT 14.4 INR 1.2 Specimen Type Sample Site pH Bicarbonate Actual POC Total CO2 Base Excess O2 Saturation ABG pCO2 ABG pO2 Randy Test O2 Delivery Device Blood Gas Notified Whom Blood Gas Notified Time Sodium 142 Potassium 4.1 Chloride 108 H Carbon Dioxide 24.0 Anion Gap 10 BUN 23 H Creatinine 1.77 H Estim Creat Clear Calc 38.97 Est GFR (MDRD) Af Amer 48 L Est GFR (MDRD) Non-Af 40 L BUN/Creatinine Ratio 13.0 Glucose 114 H Hemoglobin A1c Calcium 8.7 Total Bilirubin 0.70 Direct Bilirubin 0.15 AST 13 L ALT 20 Alkaline Phosphatase 89 C-React Prot Ext Range Total Protein 7.3 Albumin 2.8 L Globulin 4.5 H PSA Screen Urine Color Urine Clarity Urine pH Ur Specific [place] Urine Protein Urine Glucose (UA) Urine Ketones Urine Occult Blood Urine Nitrite Urine Bilirubin Urine Urobilinogen Ur Leukocyte Esterase Urine RBC Urine WBC Ur Squamous Epith Cells Amorphous Sediment Urine Bacteria Urine Mucus Urine Yeast POC Glucose 08/04/17 08/05/17 08/05/17 21:25 00:24 06:25 WBC 6.2 RBC 4.40 L Hgb 12.6 L Hct 38.8 L MCV 88.2 MCH 28.6 MCHC 32.5 RDW 13.6 RDW Differential 42.6 Plt Count 209 MPV 9.3 Immature Gran % (Auto) 0.300 Neut % (Auto) 63.2 Lymph % (Auto) 21.9 [place] % (Auto) 10.3 H Eos % (Auto) 3.7 Baso % (Auto) 0.6 Absolute Neuts (auto) 3.9 Absolute Lymphs (auto) 1.36 Total Counted Not Reportable ESR PT INR Specimen Type Sample Site pH Bicarbonate Actual POC Total CO2 Base Excess O2 Saturation ABG pCO2 ABG pO2 Randy Test O2 Delivery Device Blood Gas Notified Whom Blood Gas Notified Time Sodium Potassium Chloride Carbon Dioxide Anion Gap BUN Creatinine Estim Creat Clear Calc Est GFR (MDRD) Af Amer Est GFR (MDRD) Non-Af BUN/Creatinine Ratio Glucose Hemoglobin A1c Calcium Total Bilirubin Direct Bilirubin AST ALT Alkaline Phosphatase C-React Prot Ext Range Total Protein Albumin Globulin PSA Screen Urine Color Yellow Urine Clarity Sl. Cloudy Urine pH 5.0 Ur Specific [place] 1.020 Urine Protein 100 H Urine Glucose (UA) Normal Urine Ketones Negative Urine Occult Blood 50 H Urine Nitrite Negative Urine Bilirubin Negative Urine Urobilinogen Normal Ur Leukocyte Esterase 500 H Urine RBC 0-5 SEEN Urine WBC >100 SEEN Ur Squamous Epith Cells 0-5 SEEN Amorphous Sediment 1+ URATE Urine Bacteria RARE Urine Mucus 0 SEEN Urine Yeast RARE POC Glucose 111 H 08/05/17 08/05/17 08/05/17 06:25 06:25 06:25 WBC RBC Hgb Hct MCV MCH MCHC RDW RDW Differential Plt Count MPV Immature Gran % (Auto) Neut % (Auto) Lymph % (Auto) [place] % (Auto) Eos % (Auto) Baso % (Auto) Absolute Neuts (auto) Absolute Lymphs (auto) Total Counted ESR 41 H PT INR Specimen Type Sample Site pH Bicarbonate Actual POC Total CO2 Base Excess O2 Saturation ABG pCO2 ABG pO2 Randy Test O2 Delivery Device Blood Gas Notified Whom Blood Gas Notified Time Sodium 140 Potassium 3.9 Chloride 106 Carbon Dioxide 26.0 Anion Gap 8 BUN 22 H Creatinine 1.69 H Estim Creat Clear Calc 40.82 Est GFR (MDRD) Af Amer 51 L Est GFR (MDRD) Non-Af 42 L BUN/Creatinine Ratio 13.0 Glucose 180 H Hemoglobin A1c Calcium 8.3 L Total Bilirubin Direct Bilirubin AST ALT Alkaline Phosphatase C-React Prot Ext Range Total Protein Albumin Globulin PSA Screen 1.10 Urine Color Urine Clarity Urine pH Ur Specific [place] Urine Protein Urine Glucose (UA) Urine Ketones Urine Occult Blood Urine Nitrite Urine Bilirubin Urine Urobilinogen Ur Leukocyte Esterase Urine RBC Urine WBC Ur Squamous Epith Cells Amorphous Sediment Urine Bacteria Urine Mucus Urine Yeast POC Glucose 08/05/17 08/05/17 08/05/17 06:28 08:23 10:50 WBC RBC Hgb Hct MCV MCH MCHC RDW RDW Differential Plt Count MPV Immature Gran % (Auto) Neut % (Auto) Lymph % (Auto) [place] % (Auto) Eos % (Auto) Baso % (Auto) Absolute Neuts (auto) Absolute Lymphs (auto) Total Counted ESR PT INR Specimen Type ART Sample Site R Radial pH 7.39 Bicarbonate Actual 27.6 H POC Total CO2 29 Base Excess 3 H O2 Saturation 92 L ABG pCO2 45.7 H ABG pO2 64 L Randy Test POS O2 Delivery Device Room Air Blood Gas Notified Whom [facility] Blood Gas Notified Time 1055 Sodium Potassium Chloride Carbon Dioxide Anion Gap BUN Creatinine Estim Creat Clear Calc Est GFR (MDRD) Af Amer Est GFR (MDRD) Non-Af BUN/Creatinine Ratio Glucose Hemoglobin A1c Calcium Total Bilirubin Direct Bilirubin AST ALT Alkaline Phosphatase C-React Prot Ext Range 21.60 H Total Protein Albumin Globulin PSA Screen Urine Color Urine Clarity Urine pH Ur Specific [place] Urine Protein Urine Glucose (UA) Urine Ketones Urine Occult Blood Urine Nitrite Urine Bilirubin Urine Urobilinogen Ur Leukocyte Esterase Urine RBC Urine WBC Ur Squamous Epith Cells Amorphous Sediment Urine Bacteria Urine Mucus Urine Yeast POC Glucose 191 H 08/05/17 08/05/17 08/05/17 12:52 16:52 17:33 WBC RBC Hgb Hct MCV MCH MCHC RDW RDW Differential Plt Count MPV Immature Gran % (Auto) Neut % (Auto) Lymph % (Auto) [place] % (Auto) Eos % (Auto) Baso % (Auto) Absolute Neuts (auto) Absolute Lymphs (auto) Total Counted ESR PT 13.9 INR 1.1 Specimen Type Sample Site pH Bicarbonate Actual POC Total CO2 Base Excess O2 Saturation ABG pCO2 ABG pO2 Randy Test O2 Delivery Device Blood Gas Notified Whom Blood Gas Notified Time Sodium Potassium Chloride Carbon Dioxide Anion Gap BUN Creatinine Estim Creat Clear Calc Est GFR (MDRD) Af Amer Est GFR (MDRD) Non-Af BUN/Creatinine Ratio Glucose Hemoglobin A1c Calcium Total Bilirubin Direct Bilirubin AST ALT Alkaline Phosphatase C-React Prot Ext Range Total Protein Albumin Globulin PSA Screen Urine Color Urine Clarity Urine pH Ur Specific [place] Urine Protein Urine Glucose (UA) Urine Ketones Urine Occult Blood Urine Nitrite Urine Bilirubin Urine Urobilinogen Ur Leukocyte Esterase Urine RBC Urine WBC Ur Squamous Epith Cells Amorphous Sediment Urine Bacteria Urine Mucus Urine Yeast POC Glucose 276 H 355 H 08/05/17 08/06/17 08/06/17 21:10 03:19 03:38 WBC RBC Hgb Hct MCV MCH MCHC RDW RDW Differential Plt Count MPV Immature Gran % (Auto) Neut % (Auto) Lymph % (Auto) [place] % (Auto) Eos % (Auto) Baso % (Auto) Absolute Neuts (auto) Absolute Lymphs (auto) Total Counted ESR PT 14.5 INR 1.2 Specimen Type Sample Site pH Bicarbonate Actual POC Total CO2 Base Excess O2 Saturation ABG pCO2 ABG pO2 Randy Test O2 Delivery Device Blood Gas Notified Whom Blood Gas Notified Time Sodium Potassium Chloride Carbon Dioxide Anion Gap BUN Creatinine Estim Creat Clear Calc Est GFR (MDRD) Af Amer Est GFR (MDRD) Non-Af BUN/Creatinine Ratio Glucose Hemoglobin A1c Calcium Total Bilirubin Direct Bilirubin AST ALT Alkaline Phosphatase C-React Prot Ext Range Total Protein Albumin Globulin PSA Screen Urine Color Urine Clarity Urine pH Ur Specific [place] Urine Protein Urine Glucose (UA) Urine Ketones Urine Occult Blood Urine Nitrite Urine Bilirubin Urine Urobilinogen Ur Leukocyte Esterase Urine RBC Urine WBC Ur Squamous Epith Cells Amorphous Sediment Urine Bacteria Urine Mucus Urine Yeast POC Glucose 245 H 39 L* 08/06/17 08/06/17 08/06/17 03:38 03:38 03:56 WBC RBC Hgb Hct MCV MCH MCHC RDW RDW Differential Plt Count MPV Immature Gran % (Auto) Neut % (Auto) Lymph % (Auto) [place] % (Auto) Eos % (Auto) Baso % (Auto) Absolute Neuts (auto) Absolute Lymphs (auto) Total Counted ESR PT INR Specimen Type Sample Site pH Bicarbonate Actual POC Total CO2 Base Excess O2 Saturation ABG pCO2 ABG pO2 Randy Test O2 Delivery Device Blood Gas Notified Whom Blood Gas Notified Time Sodium Potassium Chloride Carbon Dioxide Anion Gap BUN Creatinine Estim Creat Clear Calc Est GFR (MDRD) Af Amer Est GFR (MDRD) Non-Af BUN/Creatinine Ratio Glucose 44 L* Hemoglobin A1c 8.9 H Calcium Total Bilirubin Direct Bilirubin AST ALT Alkaline Phosphatase C-React Prot Ext Range Total Protein Albumin Globulin PSA Screen Urine Color Urine Clarity Urine pH Ur Specific [place] Urine Protein Urine Glucose (UA) Urine Ketones Urine Occult Blood Urine Nitrite Urine Bilirubin Urine Urobilinogen Ur Leukocyte Esterase Urine RBC Urine WBC Ur Squamous Epith Cells Amorphous Sediment Urine Bacteria Urine Mucus Urine Yeast POC Glucose 64 L 08/06/17 08/06/17 08/06/17 04:19 08:27 11:50 WBC RBC Hgb Hct MCV MCH MCHC RDW RDW Differential Plt Count MPV Immature Gran % (Auto) Neut % (Auto) Lymph % (Auto) [place] % (Auto) Eos % (Auto) Baso % (Auto) Absolute Neuts (auto) Absolute Lymphs (auto) Total Counted ESR PT INR Specimen Type Sample Site pH Bicarbonate Actual POC Total CO2 Base Excess O2 Saturation ABG pCO2 ABG pO2 Randy Test O2 Delivery Device Blood Gas Notified Whom Blood Gas Notified Time Sodium Potassium Chloride Carbon Dioxide Anion Gap BUN Creatinine Estim Creat Clear Calc Est GFR (MDRD) Af Amer Est GFR (MDRD) Non-Af BUN/Creatinine Ratio Glucose Hemoglobin A1c Calcium Total Bilirubin Direct Bilirubin AST ALT Alkaline Phosphatase C-React Prot Ext Range Total Protein Albumin Globulin PSA Screen Urine Color Urine Clarity Urine pH Ur Specific [place] Urine Protein Urine Glucose (UA) Urine Ketones Urine Occult Blood Urine Nitrite Urine Bilirubin Urine Urobilinogen Ur Leukocyte Esterase Urine RBC Urine WBC Ur Squamous Epith Cells Amorphous Sediment Urine Bacteria Urine Mucus Urine Yeast POC Glucose 85 82 153 H Microbiology 08/05/17 11:30 Urine Catheter - Catheter Urine Culture - Preliminary Gram positive organism Gram positive organism#2 08/04/17 21:25 Urine, Clean Catch Urine Culture - Final Meth. resistant Staph. aureus Dr. Carlos King-infectious disease Dr. Fidel Malone-pulmonary medicine Operations: None Procedures: None Summary of Care Provided: Mr. Louis is a 76-year-old male with a past medical history of diabetes mellitus type 2, COPD, depression, hyperlipidemia, history of nephrolithiasis, hypertension, super obesity, severe obstructive sleep apnea, BPH and chronic renal failure stage III who was brought to the emergency room at [facility] on 08/04/2017 with a complaint of weakness. He was recently admitted to the hospital on 07/24/2017 and discharged on 07/29/2017. He was treated for acute cystitis and metabolic encephalopathy secondary to infection. He was discharged on amoxicillin 500 mg p.o. every 8 hours for 4 days. The urine culture grew MRSA, pseudomonas aeruginosa and group B strep. MRSA and pseudomonas aeruginosa were not covered by amoxicillin. Vital signs at presentation to the emergency room were temperature 98.1, pulse rate 50, blood pressure 154/67, respiratory rate 18 and he was 95% saturated on room air. White blood cell count was normal at 8.5 with 71% neutrophils. Hemoglobin and platelets were within normal limits. Electrolytes were unremarkable and the BUN was 23 with a creatinine of 1.77 which is within his baseline creatinine. LFTs were unremarkable. Urine was nitrite negative but had greater than 100 WBCs per high-power field with rare bacteria. There was also rare yeast present. CT scan of the abdomen and pelvis without IV contrast showed no evidence of acute abdominal process or focal inflammation. There was moderate cortical atrophy of both kidneys and stable renal cysts. There were no stones reported. He was Admitted to the hospital with a diagnosis of acute cystitis, metabolic encephalopathy and generalized weakness and debility. He has a CPAP machine at home but it is broken and he has not attempted to call the [employer] to have it repaired. He has been seen by Dr. Malone in the hospital int he past and be asked to follow up in the office but, he has failed to do this. He was very lethargic when I first examined him on 08/05/17 and difficult to arouse. He could not stay awake while I was talking to him. He was seen in consultation by Dr. Malone and placed on BIPAP . He was compliant with the BIPAP and the following morning he was very alert and able to participate in a family conference with myself, the SW, his and his dtr. After explaining that the reason he is so lethargic and confused is the untreated sleep apnea and not infection he was agreeable to transfer to TCU so that he could remain on BIPAP until his sleep study which is scheduled for . He is also agreeable to follow up with Dr. Malone in the future for NILO and suspected pulmonary HTN. He was also seen in the hospital by Dr. King from [place] who has recommended 10 days of treatment for MRSA cystitis. He received 3 days of Vanco in the hospital and so will need 7 days of Doxycycline at [place]. He was afebrile for the duration of his hospital stay and the WBC count was normal with a normal diff on 08/05/17. On the day of DC his lungs were diminished but CTA. The heart has a RRR and he has no gallop. He was alert and oriented X 3 and appeared to be in no distress. T INR on the day of DC was 1.2. He was not taking his Coumadin at home. He will need to stay on Lovenox Q 12 hours until the INR is >2.0. He was restarted on Warfarin on 08/05 and takes 5 mg daily. Would check an INR every 24 -48 hours until he is therapeutic. He has an appt to follow up in the pulmonary clinic on 08/26. He will follow up with Dr. Nelson following DC from [facility]. This note was generated with [employer] dictation software. It may contain incorrect words, spelling, and punctuation that were not noted in checking the note before signing. Home Medications: Medications to take at Discharge Atorvastatin Calcium [Lipitor] 40 mg PO QHS 05/29/15 Citalopram [Celexa] 40 mg PO DAILY 05/29/15 Docusate Sodium [Colace] 200 mg PO QODAY PRN 05/29/15 Fluticasone 0.05% [Flonase Nasal [place]] 1 spray NASAL BID PRN 05/29/15 Tamsulosin HCl [Flomax] 0.4 mg PO DAILY 07/08/16 Metoprolol Succinate 100 mg PO DAILY 02/08/17 Losartan Potassium [Cozaar] 100 mg PO DAILY 07/24/17 Albuterol Aerosols [Ventolin Aerosols] 2.5 mg INHALATION Q4H PRN PRN vial.neb. 08/06/17 Doxycycline 100 mg PO BID #16 capsule 08/06/17 Enoxaparin [Lovenox] 170 mg SC Q12@0600,1800 syringe 08/06/17 Insulin U-500 [Humulin R U-500 ([facility])] 0.5 ml SC TIDAC ml 08/06/17 Ipratropium/Albuterol Sulfate [Duoneb] 3 ml INHALATION Q6H.RT ampul.neb Nystatin Powder [Mycostatin Powder] 1 applic TOPICAL BID bottle 08/06/17 Warfarin [Coumadin] 5 mg PO DAILY@1700 tablet 08/06/17 Following Prescrptions Were Given to Patient: Doxycycline 100 mg PO BID #16 capsule Primary Care Physician: Wili Nelson DO [Primary Care Provider] - Please follow up with your Primary Care Physician in: following DC from [facility] Please Follow Up With: Aicha Szymanski NP-C When: 1 week after DC from [facility] Disposition: [facility] facility - Transitional care unit Minutes spent on discharge:: 45 Patient Condition:: Good Meaningful Use Info Meaningful Use Diagnoses (Choose all that apply): None applicable Code Visit Inpatient E&M: 25375 Disch Hosp
--- NOTE | 2017-08-06 15:13 | NURSING ---
report called to [facility] in TCU. pt will be transferred to TCU room 7
== END 2017-08-06 15:35 | disposition skilled nursing facility (03) | DRG 689 ==
LOC: ED 20:30 → MS2 23:01
PROVIDERS: Admitting Provider Hospitalist; Emergency Provider Emergency Medicine; Family Provider Family Medicine; PCP Family Medicine; Visit Provider Internal Medicine
DX: N30.00 Acute cystitis without hematuria (principal); G93.41 Metabolic encephalopathy; J96.10 Chronic respiratory failure, unspecified whether with hypoxia or hypercapnia; E11.22 Type 2 diabetes mellitus with diabetic chronic kidney disease; Z68.43 Body mass index [BMI] 50.0-59.9, adult; E11.65 Type 2 diabetes mellitus with hyperglycemia; G47.33 Obstructive sleep apnea (adult) (pediatric); Z99.81 Dependence on supplemental oxygen; E66.01 Morbid (severe) obesity due to excess calories; N18.3 Chronic kidney disease, stage 3 (moderate); E78.5 Hyperlipidemia, unspecified; I12.9 Hypertensive chronic kidney disease with stage 1 through stage 4 chronic kidney disease, or unspecified chronic kidney disease; F32.9 Major depressive disorder, single episode, unspecified; J44.9 Chronic obstructive pulmonary disease, unspecified; B95.62 Methicillin resistant Staphylococcus aureus infection as the cause of diseases classified elsewhere; N40.0 Benign prostatic hyperplasia without lower urinary tract symptoms; Z79.4 Long term (current) use of insulin; Z80.0 Family history of malignant neoplasm of digestive organs; Z87.891 Personal history of nicotine dependence; Z87.440 Personal history of urinary (tract) infections; Z86.718 Personal history of other venous thrombosis and embolism; Z87.442 Personal history of urinary calculi
CPT/HCPCS: 36415; 36600; 71045; 74176; 80048; 80076; 81001; 82803; 82947; 82962; 83036; 84153; 85025; 85610; 85652; 86140; 87040; 87077; 87086; 87088; 87186; 93005; 94002; 94003; 94640; 97116; 97162; 97166; 97530; 97802; 99284; J7040; A4216; G0103

== ENCOUNTER 2017-08-06 15:51 | Inpatient (IN) | payer MEDICARE, OTHER, SELFPAY ==
[2017-08-06 16:04] VITALS: BMI 52.0
[2017-08-06 16:54] VITALS: BP 138/72; PULSE 79; RESP 20; TEMP 36.6; O2SAT 93
[2017-08-06 17:26] LABS: Bedside Glucose 84 mg/dL (70-110)
--- NOTE | 2017-08-06 20:02 | PCM.HP.STD ---
Problem List (1) Diabetes mellitus Status: Chronic (2) Morbid obesity Status: Chronic (3) Depression Status: Chronic (4) Chronic kidney disease Status: Chronic (5) Kidney stones Status: Chronic (6) Colonic polyp Status: Chronic (7) Thromboembolism Status: Chronic (8) Metabolic encephalopathy Status: Acute (9) MRSA (methicillin resistant staph aureus) culture positive Status: Acute (10) Cystitis Status: Acute Comment: due to MRSA (11) Debility Status: Chronic (12) Noncompliance Status: Chronic Comment: with CPAP and follow up and with diet (13) COPD (chronic obstructive pulmonary disease) Status: Chronic (14) HLD (hyperlipidemia) Status: Chronic (15) HTN (hypertension) Status: Chronic (16) NILO (obstructive sleep apnea) Status: Chronic History of Present Illness Date of Admission: 08/06/17 Chief Complaint: Here for rehabilitation, strengthening, prior to discharge home with family. The patient is a 76 year old Male with below past medical history presented to [facility] Emergency Department 08/04/2017 with weakness, UTI. 08/04/2017 CT abdomen/pelvis negative. 08/04/2017 Chest X-ray cardiomegaly with mild pulmonary vascular congestion with interstitial markings. 08/04/2017 EKG sinus bradycardia with marked sinus arrhythmia with 1st degree AV block, left axis deviation, right bundle branch block, inferior infarct, age undetermined. Increasing weakness, right lateral abdominal pain. Too weak to sit up. CBCD okay, BMP Cr 1.77, LFT okay, INR 1.2. UA > 100 WBC, blood, urine cultures sent. Zosyn IV given. 08/04/2017 Admit to Hospital. Recent hospitalization for UTI, encephalopathy. Refused short term SNF stay. Previous urine culture grew P. Aeruginosa, Strep agalactiae, MRSA. IV Zosyn, IV Vancomycin, consult Dr. King from infectious disease. BiPAP in hospital for obstructive sleep apnea. Patient's home BiPAP broken, patient/family did not call [employer] to repair BiPAP. Dr. King recommended 10 day treatment of MRSA cystitis, 3 days Vancomycin, then 7 days of Doxycycline. Resume warfarin with Lovenox bridging for history of DVT/PE. Patient is non-compliant. 08/06/2017 Admit to TCU for rehabilitation, strengthening, prior to discharge home with family. Past Medical History Past Medical History (Chronic Problems): Chronic Problems Diabetes mellitus (Chronic) Morbid obesity (Chronic) Depression (Chronic) Chronic kidney disease (Chronic) Kidney stones (Chronic) Colonic polyp (Chronic) Thromboembolism (Chronic) BPH (benign prostatic hyperplasia) (Chronic) Super obesity (Chronic) History of nephrolithiasis (Chronic) Debility (Chronic) Noncompliance (Chronic) with CPAP and follow up and with diet History of kidney stones (Chronic) COPD (chronic obstructive pulmonary disease) (Chronic) Type II diabetes mellitus, uncontrolled (Chronic) History of depression (Chronic) History of other venous thrombosis and embolism (Chronic) HLD (hyperlipidemia) (Chronic) HTN (hypertension) (Chronic) NILO (obstructive sleep apnea) (Chronic) Chronic renal failure, stage 3 (moderate) (Chronic) Bifascicular bundle branch block (Chronic) Colon polyps (Chronic) Family history of colon cancer (Chronic) Allergies MARGIE Inhibitors Allergy (Unknown, Verified 08/04/17 19:15) Unknown cefepime Allergy (Verified 08/04/17 19:15) Other WEAKNESS & FALLING ipodate [Ipodate] Allergy (Verified 08/04/17 19:15) Shortness of breath levofloxacin [Levofloxacin] Allergy (Verified 08/04/17 19:15) Anaphylaxis lisinopril Allergy (Verified 08/04/17 19:15) Shortness of breath ofloxacin Allergy (Verified 08/04/17 19:15) Unknown Quinolones Allergy (Verified 08/04/17 19:15) Anaphylaxis Home Medications: Ambulatory Orders Medication Instructions Recorded Atorvastatin Calcium [Lipitor] 40 mg PO QHS 05/29/15 Citalopram [Celexa] 40 mg PO DAILY 05/29/15 Docusate Sodium [Colace] 200 mg PO QODAY PRN 05/29/15 Fluticasone 0.05% [Flonase Nasal 1 spray NASAL BID PRN 05/29/15 [place]] Tamsulosin HCl [Flomax] 0.4 mg PO DAILY 07/08/16 Metoprolol Succinate 100 mg PO DAILY 02/08/17 Losartan Potassium [Cozaar] 100 mg PO DAILY 07/24/17 Albuterol Aerosols [Ventolin 2.5 mg INHALATION Q4H PRN PRN 08/06/17 Aerosols] vial.neb. Doxycycline 100 mg PO BID 08/06/17 Enoxaparin [Lovenox] 170 mg SC Q12@0600,1800 08/06/17 Insulin U-500 [Humulin R U-500 0.5 ml SC TIDAC 08/06/17 ([facility])] Ipratropium/Albuterol Sulfate 3 ml INHALATION Q6H.RT 08/06/17 [Duoneb] Nystatin Powder [Mycostatin Powder] 1 applic TOPICAL BID 08/06/17 Warfarin [Coumadin] 5 mg PO DAILY@1700 08/06/17 Surgical History: - - Circumcision, excision of kidney stone Psychiatric History: Depression Lives: With Family Smoking Status: Former smoker Tobacco Use: Non-smoker Alcohol: None Drugs: None - *Family History Maternal History Items: Cancer - Patient's mother of cancer but he is not sure what kind of cancer. Paternal History Items: Cancer - Father of colon cancer Offspring History Items: - - He has a son who is morbidly obese and suffers from breathing problems and heart problems. Review of Systems Constitutional: Denies: Chills, Fever, Weight Change HEENT: Denies: Head Aches, Sinus Congestion, Sinus Drainage Cardiovascular: Denies: Chest Pain, Palpitations Respiratory: Denies: Cough, Shortness of breath at rest, Sputum production Gastrointestinal: Denies: Abdominal Pain, Nausea, Vomiting Genitourinary: Denies: Dysuria Musculoskeletal: Denies: Joint Pain, Joint Tenderness Skin: Denies: Rash, Wounds Neurological: Denies: Numbness, Tingling, Focal weakness Psychiatric: Denies: Anxiety, Depression, Homicidal Ideations, Suicidal Ideations Hematologic/ Lymphatic: Denies: Easy Bruising, Easy Bleeding VTE Information - Inpt Only VTE Present on Admission: No VTE Mechan Device Prophylaxis: Knee High MARC Hose VTE Pharm Prophylaxis ordered?: No Reason prophylaxis not ordered:: Treatment Not Indicated Patient Problems: Active and Suspected Problems MRSA (methicillin resistant staph aureus) culture positive (Acute) Subtherapeutic international normalized ratio (INR) (Acute) Cystitis (Acute) due to MRSA - Physical Exam General: Alert, Oriented x3, Cooperative HEENT: Atraumatic, PERRLA, EOMI, Normocephalic Neck: Supple, No JVD, Negative Carotid Bruits Lungs: Clear to auscultation, Normal air movement Cardiovascular: Regular rate, No murmurs Abdomen: Bowel Sounds Present, Soft, Non Tender Extremities: No edema, Capillary Refill Less than 3 Seconds Skin: No rashes, No breakdown Musculoskeletal: No Tenderness to Palpation of Joints or Extremities Neurological: Cranial nerves II-XII grossly intact Psych/Mental Status: Normal Affect, Appropriate Vital Signs Temp Pulse Resp BP Pulse Ox 97.8 F 79 20 H 138/72 H 93 08/06/17 16:54 08/06/17 16:54 08/06/17 16:54 08/06/17 16:54 08/06/17 16:54 Oxygen Delivery Method Room Air Weight: 174.05 kg Body Mass Index (BMI) 52.0 Finger Stick Blood Glucose 216 Intake and Output for Last 24 Hours 08/04/17 08/05/17 08/06/17 23:59 23:59 23:59 Intake Total 480 / 480 Balance 480 / 480 POC Glucose 08/06/17 17:18 POC Glucose 84 Assessment/Plan Active and Suspected Problems MRSA (methicillin resistant staph aureus) culture positive (Acute) Subtherapeutic international normalized ratio (INR) (Acute) Cystitis (Acute) due to MRSA 76 year old male with below past medical history hospitalized for debility, encephalopathy, secondary to MRSA urinary tract infection, complicated by untreated severe obstructive sleep apnea, admitted to TCU for rehabilitation, strengthening, prior to discharge home with family. Debility - PT/OT. Pain - Tylenol 1000MG Q8H PRN mild pain. Bowel - Miralax 34GM daily, Senna/colace 2 tablets BID, Dulcolax 10MG PO daily PRN. Pneumonia vaccination - Administer Prevnar 13 and/or Pneumovax 23 as necessary. DVT prophylaxis - Not necessary, on warfarin/lovenox bridge. COPD - Albuterol 2.5MG Q4H PRN, Duoneb 3ML Q6H. Hyperlipidemia - Atorvastatin 40MG QHS. Depression - Citalopram 40MG daily. MRSA UTI - Doxycycline 100MG BID thru 08/14/2017. DVT/PE - Warfarin 5MG daily, Lovenox 170MG SC Q12H bridge, monitor INR. Allergic rhinitis - Flonase 1 spray BID Diabetes Mellitus II - Humulin R U-500 250 units TIDAC, severe insulin resistance. Hypertension - Metoprolol succinate 100MG daily, Losartan 100MG daily. Skin irritation - Calmoseptine TID bilateral buttocks, groin, perineum, Eucerin BID bilateral legs, heel. Tinea corporis - Nystatin topical TID under breasts, groin, abdominal folds. BPH - Tamsulosin 0.4MG daily.
--- NOTE | 2017-08-06 20:12 | HP.PCM_ITS ---
Problem List (1) Diabetes mellitus Status: Chronic (2) Morbid obesity Status: Chronic (3) Depression Status: Chronic (4) Chronic kidney disease Status: Chronic (5) Kidney stones Status: Chronic (6) Colonic polyp Status: Chronic (7) Thromboembolism Status: Chronic (8) Metabolic encephalopathy Status: Acute (9) MRSA (methicillin resistant staph aureus) culture positive Status: Acute (10) Cystitis Status: Acute Comment: due to MRSA (11) Debility Status: Chronic (12) Noncompliance Status: Chronic Comment: with CPAP and follow up and with diet (13) COPD (chronic obstructive pulmonary disease) Status: Chronic (14) HLD (hyperlipidemia) Status: Chronic (15) HTN (hypertension) Status: Chronic (16) NILO (obstructive sleep apnea) Status: Chronic History of Present Illness Date of Admission: 08/06/17 Chief Complaint: Here for rehabilitation, strengthening, prior to discharge home with family. The patient is a 76 year old Male with below past medical history presented to [facility] Emergency Department 08/04/2017 with weakness, UTI. 08/04/2017 CT abdomen/pelvis negative. 08/04/2017 Chest X-ray cardiomegaly with mild pulmonary vascular congestion with interstitial markings. 08/04/2017 EKG sinus bradycardia with marked sinus arrhythmia with 1st degree AV block, left axis deviation, right bundle branch block, inferior infarct, age undetermined. Increasing weakness, right lateral abdominal pain. Too weak to sit up. CBCD okay, BMP Cr 1.77, LFT okay, INR 1.2. UA > 100 WBC, blood, urine cultures sent. Zosyn IV given. 08/04/2017 Admit to Hospital. Recent hospitalization for UTI, encephalopathy. Refused short term SNF stay. Previous urine culture grew P. Aeruginosa, Strep agalactiae, MRSA. IV Zosyn, IV Vancomycin, consult Dr. King from infectious disease. BiPAP in hospital for obstructive sleep apnea. Patient's home BiPAP broken, patient/family did not call [employer] to repair BiPAP. Dr. King recommended 10 day treatment of MRSA cystitis, 3 days Vancomycin, then 7 days of Doxycycline. Resume warfarin with Lovenox bridging for history of DVT/PE. Patient is non-compliant. 08/06/2017 Admit to TCU for rehabilitation, strengthening, prior to discharge home with family. Past Medical History Past Medical History (Chronic Problems): Chronic Problems Diabetes mellitus (Chronic) Morbid obesity (Chronic) Depression (Chronic) Chronic kidney disease (Chronic) Kidney stones (Chronic) Colonic polyp (Chronic) Thromboembolism (Chronic) BPH (benign prostatic hyperplasia) (Chronic) Super obesity (Chronic) History of nephrolithiasis (Chronic) Debility (Chronic) Noncompliance (Chronic) with CPAP and follow up and with diet History of kidney stones (Chronic) COPD (chronic obstructive pulmonary disease) (Chronic) Type II diabetes mellitus, uncontrolled (Chronic) History of depression (Chronic) History of other venous thrombosis and embolism (Chronic) HLD (hyperlipidemia) (Chronic) HTN (hypertension) (Chronic) NILO (obstructive sleep apnea) (Chronic) Chronic renal failure, stage 3 (moderate) (Chronic) Bifascicular bundle branch block (Chronic) Colon polyps (Chronic) Family history of colon cancer (Chronic) Allergies MARGIE Inhibitors Allergy (Unknown, Verified 08/04/17 19:15) Unknown cefepime Allergy (Verified 08/04/17 19:15) Other WEAKNESS & FALLING ipodate [Ipodate] Allergy (Verified 08/04/17 19:15) Shortness of breath levofloxacin [Levofloxacin] Allergy (Verified 08/04/17 19:15) Anaphylaxis lisinopril Allergy (Verified 08/04/17 19:15) Shortness of breath ofloxacin Allergy (Verified 08/04/17 19:15) Unknown Quinolones Allergy (Verified 08/04/17 19:15) Anaphylaxis Home Medications: Ambulatory Orders Medication Instructions Recorded Atorvastatin Calcium [Lipitor] 40 mg PO QHS 05/29/15 Citalopram [Celexa] 40 mg PO DAILY 05/29/15 Docusate Sodium [Colace] 200 mg PO QODAY PRN 05/29/15 Fluticasone 0.05% [Flonase Nasal 1 spray NASAL BID PRN 05/29/15 [place]] Tamsulosin HCl [Flomax] 0.4 mg PO DAILY 07/08/16 Metoprolol Succinate 100 mg PO DAILY 02/08/17 Losartan Potassium [Cozaar] 100 mg PO DAILY 07/24/17 Albuterol Aerosols [Ventolin 2.5 mg INHALATION Q4H PRN PRN 08/06/17 Aerosols] vial.neb. Doxycycline 100 mg PO BID 08/06/17 Enoxaparin [Lovenox] 170 mg SC Q12@0600,1800 08/06/17 Insulin U-500 [Humulin R U-500 0.5 ml SC TIDAC 08/06/17 ([facility])] Ipratropium/Albuterol Sulfate 3 ml INHALATION Q6H.RT 08/06/17 [Duoneb] Nystatin Powder [Mycostatin Powder] 1 applic TOPICAL BID 08/06/17 Warfarin [Coumadin] 5 mg PO DAILY@1700 08/06/17 Surgical History: - - Circumcision, excision of kidney stone Psychiatric History: Depression Lives: With Family Smoking Status: Former smoker Tobacco Use: Non-smoker Alcohol: None Drugs: None - *Family History Maternal History Items: Cancer - Patient's mother of cancer but he is not sure what kind of cancer. Paternal History Items: Cancer - Father of colon cancer Offspring History Items: - - He has a son who is morbidly obese and suffers from breathing problems and heart problems. Review of Systems Constitutional: Denies: Chills, Fever, Weight Change HEENT: Denies: Head Aches, Sinus Congestion, Sinus Drainage Cardiovascular: Denies: Chest Pain, Palpitations Respiratory: Denies: Cough, Shortness of breath at rest, Sputum production Gastrointestinal: Denies: Abdominal Pain, Nausea, Vomiting Genitourinary: Denies: Dysuria Musculoskeletal: Denies: Joint Pain, Joint Tenderness Skin: Denies: Rash, Wounds Neurological: Denies: Numbness, Tingling, Focal weakness Psychiatric: Denies: Anxiety, Depression, Homicidal Ideations, Suicidal Ideations Hematologic/ Lymphatic: Denies: Easy Bruising, Easy Bleeding VTE Information - Inpt Only VTE Present on Admission: No VTE Mechan Device Prophylaxis: Knee High MARC Hose VTE Pharm Prophylaxis ordered?: No Reason prophylaxis not ordered:: Treatment Not Indicated Patient Problems: Active and Suspected Problems MRSA (methicillin resistant staph aureus) culture positive (Acute) Subtherapeutic international normalized ratio (INR) (Acute) Cystitis (Acute) due to MRSA - Physical Exam General: Alert, Oriented x3, Cooperative HEENT: Atraumatic, PERRLA, EOMI, Normocephalic Neck: Supple, No JVD, Negative Carotid Bruits Lungs: Clear to auscultation, Normal air movement Cardiovascular: Regular rate, No murmurs Abdomen: Bowel Sounds Present, Soft, Non Tender Extremities: No edema, Capillary Refill Less than 3 Seconds Skin: No rashes, No breakdown Musculoskeletal: No Tenderness to Palpation of Joints or Extremities Neurological: Cranial nerves II-XII grossly intact Psych/Mental Status: Normal Affect, Appropriate Vital Signs Temp Pulse Resp BP Pulse Ox 97.8 F 79 20 H 138/72 H 93 08/06/17 16:54 08/06/17 16:54 08/06/17 16:54 08/06/17 16:54 08/06/17 16:54 Oxygen Delivery Method Room Air Weight: 174.05 kg Body Mass Index (BMI) 52.0 Finger Stick Blood Glucose 216 Intake and Output for Last 24 Hours 08/04/17 08/05/17 08/06/17 23:59 23:59 23:59 Intake Total 480 / 480 Balance 480 / 480 POC Glucose 08/06/17 17:18 POC Glucose 84 Assessment/Plan Active and Suspected Problems MRSA (methicillin resistant staph aureus) culture positive (Acute) Subtherapeutic international normalized ratio (INR) (Acute) Cystitis (Acute) due to MRSA 76 year old male with below past medical history hospitalized for debility, encephalopathy, secondary to MRSA urinary tract infection, complicated by untreated severe obstructive sleep apnea, admitted to TCU for rehabilitation, strengthening, prior to discharge home with family. * Debility - PT/OT. * Pain - Tylenol 1000MG Q8H PRN mild pain. * Bowel - Miralax 34GM daily, Senna/colace 2 tablets BID, Dulcolax 10MG PO daily PRN. * Pneumonia vaccination - Administer Prevnar 13 and/or Pneumovax 23 as necessary. * DVT prophylaxis - Not necessary, on warfarin/lovenox bridge. * COPD - Albuterol 2.5MG Q4H PRN, Duoneb 3ML Q6H. * Hyperlipidemia - Atorvastatin 40MG QHS. * Depression - Citalopram 40MG daily. * MRSA UTI - Doxycycline 100MG BID thru 08/14/2017. * DVT/PE - Warfarin 5MG daily, Lovenox 170MG SC Q12H bridge, monitor INR. * Allergic rhinitis - Flonase 1 spray BID * Diabetes Mellitus II - Humulin R U-500 250 units TIDAC, severe insulin resistance. * Hypertension - Metoprolol succinate 100MG daily, Losartan 100MG daily. * Skin irritation - Calmoseptine TID bilateral buttocks, groin, perineum, Eucerin BID bilateral legs, heel. * Tinea corporis - Nystatin topical TID under breasts, groin, abdominal folds. * BPH - Tamsulosin 0.4MG daily.
[2017-08-06] MEDS: Doxycycline 100 MG CAPSULE PO (20:54)
[2017-08-06] MEDS: Atorvastatin Calcium 40 MG Tablet PO (20:54)
[2017-08-06] MEDS: Enoxaparin 100 MG/ML Syringe 170 MG SC (20:57)
[2017-08-06 21:02] LABS: Bedside Glucose 81 mg/dL (70-110)
[2017-08-07] VITALS (10 sets, daily range): BP systolic 132–138; BP diastolic 70–73; PULSE 55–82; RESP 14–20; TEMP 36.7; O2SAT 91–97
--- NOTE | 2017-08-07 00:22 | NURSING ---
Pt remains in contact isolation this shift
[2017-08-07] MEDS: Ipratropium/Albuterol Sulfate 3 ML AMPUL.NEB INHALATION ×4 (00:35→19:55)
[2017-08-07 01:26] LABS: Bedside Glucose 50 mg/dL (70-110)
[2017-08-07 01:26] LABS: Bedside Glucose 66 mg/dL (70-110)
[2017-08-07 01:26] LABS: Bedside Glucose 36 mg/dL (70-110)
[2017-08-07 01:26] LABS: Bedside Glucose 83 mg/dL (70-110)
[2017-08-07 06:03] LABS: Absolute Lymphocyte Count 0.84 X10^3/ul (0.83-4.51); Absolute Neutrophil Count 5.1 X10^3/uL (2.0-7.7); Basophil# 0.03 X10^3/uL; Basophil% 0.4 % (0-1); Eosinophil# 0.21 X10^3/uL; Eosinophils% 3.1 % (0-5); Hematocrit 38.6 % (40-54); Hemoglobin 12.6 g/dl (13.0-16.5); Lymphocyte # 0.84 X10^3/ul (4.0); Lymphocyte % 12.3 % (19-41); Mean Corp Hgb Conc 32.6 g/gl (32-36); Mean Corpuscular Volume 88.9 fL (80-94); Monocyte# 0.64 X10^3/uL; Monocyte% 9.4 % (0-10); Neutrophil # 5.08 X10^3/uL (2.7-7.7); Neutrophil % 74.4 % (47-70); Platelet Count 224 K/mm3 (150-450); RBC Distribution Width CV 13.8 % (11.6-14.6); Red Blood Count 4.34 M/mm3 (4.6-6.2); White Blood Count 6.8 K/mm3 (4.4-11.0)
[2017-08-07 06:08] LABS: POSITIVE COUNT NO; POSITIVE DIFFERENTIAL NO; POSITIVE MORPHOLOGY NO
[2017-08-07 06:45] LABS: Anion Gap 8 (5-15); BUN 22 mg/dL (7-18); BUN/Creat Ratio 12.7 RATIO (10-20); Calcium,Total 8.5 mg/dL (8.5-10.1); Chloride 106 mmol/L (98-107); Creatinine, Serum 1.73 mg/dL (0.70-1.30); EST Glomerular Filtration Rate 41 mL/min (>60); Est Glom Filt Rate - Afr Amer 50 mL/min (>60); Estimated Creatinine Clearance 39.87 ml/min; Glucose 85 mg/dL (74-106); Potassium 3.9 mmol/L (3.5-5.1); Sodium Level 139 mmol/L (136-145)
[2017-08-07] MEDS: Menthol/Lanolin/Calamine/Znox 113 GM Tube 1 APPLIC TOPICAL ×3 (06:48→21:49)
[2017-08-07] MEDS: Citalopram 40 MG TABLET PO (06:49)
[2017-08-07] MEDS: Doxycycline 100 MG CAPSULE PO ×2 (06:49→17:50)
[2017-08-07] MEDS: Tamsulosin HCl 0.4 MG Capsule PO (06:49)
[2017-08-07] MEDS: Losartan Potassium 100 MG Tablet PO (06:49)
[2017-08-07] MEDS: Enoxaparin 100 MG/ML Syringe 170 MG SC ×2 (06:50→17:55)
[2017-08-07] MEDS: Nystatin Powder 15gm Bottle 1 APPLIC TOPICAL ×2 (06:53→21:49)
[2017-08-07 06:56] LABS: Bedside Glucose 95 mg/dL (70-110)
[2017-08-07] MEDS: Senna/Docusate Sodium 1 Tablet 2 TABLET PO ×2 (06:57→17:50)
[2017-08-07] MEDS: Metoprolol(XL)Succ 100 MG Tablet PO (07:08)
[2017-08-07] MEDS: Polyethylene Glycol 3350 17 GM PACKET 34 GM PO (07:08)
[2017-08-07 08:51] LABS: Bedside Glucose 88 mg/dL (70-110)
[2017-08-07] MEDS: Tuberculin,Purif.prot.deriv. 50 TU/ML Vial 5 ML ID (10:39)
--- NOTE | 2017-08-07 10:41 | NURSING ---
PT IN PRECAUTIONS FOR MRSA IN URINE.
[2017-08-07 11:21] LABS: Bedside Glucose 180 mg/dL (70-110)
[2017-08-07 16:51] LABS: Bedside Glucose 207 mg/dL (70-110)
[2017-08-07 21:06] LABS: Bedside Glucose 128 mg/dL (70-110)
[2017-08-07] MEDS: Atorvastatin Calcium 40 MG Tablet PO (21:50)
--- NOTE | 2017-08-07 21:59 | NURSING ---
PT IN PRECAUTIONS FOR MRSA IN URINE.
[2017-08-08] VITALS (7 sets, daily range): BP systolic 147–154; BP diastolic 76–78; PULSE 51–76; RESP 17–20; TEMP 36.5; O2SAT 92–99
[2017-08-08 01:16] LABS: Bedside Glucose 33 mg/dL (70-110)
[2017-08-08] MEDS: Glucagon 1 MG/ML Syringe IM (01:36)
--- NOTE | 2017-08-08 01:38 | NURSING ---
Addendum entered by Millie Morales 08/08/17 01:51: Blood sugar recheck for 95. Original Note: Pt called out to have blood sugar checked. Blood sugar 33. Pt awake and verbal; multiple snacks given: 3 orange juices, peanut butter with crackers, pop, chocolate pudding. Blood sugar recheck 40. Dr Hernandez notified; orders to give glucagon, DC Humulin and add Novolog sliding scale ACHS.
[2017-08-08 01:42] LABS: Bedside Glucose 40 mg/dL (70-110)
[2017-08-08 01:57] LABS: Bedside Glucose 95 mg/dL (70-110)
[2017-08-08 03:27] LABS: Bedside Glucose 170 mg/dL (70-110)
[2017-08-08] MEDS: Tamsulosin HCl 0.4 MG Capsule PO (04:59)
[2017-08-08] MEDS: Losartan Potassium 100 MG Tablet PO (04:59)
[2017-08-08] MEDS: Doxycycline 100 MG CAPSULE PO ×2 (04:59→17:56)
[2017-08-08] MEDS: Senna/Docusate Sodium 1 Tablet 2 TABLET PO (04:59)
[2017-08-08] MEDS: Menthol/Lanolin/Calamine/Znox 113 GM Tube 1 APPLIC TOPICAL ×3 (04:59→21:46)
[2017-08-08] MEDS: Citalopram 40 MG TABLET PO (04:59)
[2017-08-08] MEDS: Nystatin Powder 15gm Bottle 1 APPLIC TOPICAL ×2 (05:00→17:57)
[2017-08-08] MEDS: Enoxaparin 100 MG/ML Syringe 170 MG SC ×2 (05:00→17:57)
[2017-08-08] MEDS: Metoprolol(XL)Succ 100 MG Tablet PO (05:09)
[2017-08-08] MEDS: Ipratropium/Albuterol Sulfate 3 ML AMPUL.NEB INHALATION ×3 (06:30→18:36)
[2017-08-08 06:56] LABS: Bedside Glucose 181 mg/dL (70-110)
[2017-08-08 08:42] LABS: International Normalized Ratio 1.3; Prothrombin Time (Protime)PT. 15.4 SECONDS (11.7-14.9)
[2017-08-08 11:11] LABS: Bedside Glucose 152 mg/dL (70-110)
--- NOTE | 2017-08-08 13:47 | PCM.PN.RX ---
<David Decker Gaudencio - Last Filed: 08/08/17 13:47> Progress Note - Pharmacy Subjective: TCU Admission Objective: Allergies MARGIE Inhibitors Allergy (Unknown, Verified 08/04/17 19:15) Unknown cefepime Allergy (Verified 08/04/17 19:15) Other WEAKNESS & FALLING ipodate [Ipodate] Allergy (Verified 08/04/17 19:15) Shortness of breath levofloxacin [Levofloxacin] Allergy (Verified 08/04/17 19:15) Anaphylaxis lisinopril Allergy (Verified 08/04/17 19:15) Shortness of breath ofloxacin Allergy (Verified 08/04/17 19:15) Unknown Quinolones Allergy (Verified 08/04/17 19:15) Anaphylaxis Home Medications Medication Instructions Recorded Atorvastatin Calcium [Lipitor] 40 mg PO QHS 05/29/15 Citalopram [Celexa] 40 mg PO DAILY 05/29/15 Docusate Sodium [Colace] 200 mg PO QODAY PRN 15 Fluticasone 0.05% [Flonase Nasal 1 spray NASAL BID PRN 05/29/15 [place]] Tamsulosin HCl [Flomax] 0.4 mg PO DAILY 07/08/16 Metoprolol Succinate 100 mg PO DAILY 02/08/17 Losartan Potassium [Cozaar] 100 mg PO DAILY 07/24/17 Albuterol Aerosols [Ventolin 2.5 mg INHALATION Q4H PRN PRN 08/06/17 Aerosols] vial.neb. Doxycycline 100 mg PO BID 08/06/17 Enoxaparin [Lovenox] 170 mg SC Q12@0600,1800 08/06/17 Insulin U-500 [Humulin R U-500 0.5 ml SC TIDAC 08/06/17 ([facility])] Ipratropium/Albuterol Sulfate 3 ml INHALATION Q6H.RT 08/06/17 [Duoneb] Nystatin Powder [Mycostatin Powder] 1 applic TOPICAL BID 08/06/17 Warfarin [Coumadin] 5 mg PO DAILY@1700 08/06/17 Current Medications Generic Name Dose Route Start Last Admin Trade Name Freq PRN Reason Stop Dose Admin Acetaminophen 1,000 mg 08/06/17 20:36 Tylenol PO Q8H PRN PRN MILD PAIN (1-3/10) Albuterol Sulfate 2.5 mg 08/06/17 19:52 Ventolin Aerosols INHALATION Q4H PRN PRN Shortness of breath, wheezing Albuterol/Ipratropium 3 ml 08/06/17 20:00 08/08/17 13:25 Duoneb INHALATION 3 ml Q6H.RT FERNANDO Administration Atorvastatin Calcium 40 mg 08/06/17 22:00 08/07/17 21:50 Lipitor PO 40 mg QHS FERNANDO Administration Bisacodyl 10 mg 08/06/17 20:37 Dulcolax PO DAILY PRN Constipation Calamine/Phenol 1 applic 08/06/17 22:00 08/08/17 04:59 Calmoseptine Ointment TOPICAL 1 applicatio TID [facility] Administration Protocol Citalopram Hydrobromide 40 mg 08/07/17 06:00 08/08/17 04:59 Celexa PO 40 mg DAILY FERNANDO Administration Dextrose 0 gm 08/08/17 01:13 D50w Syringe IV X1 PRN Hypoglycemia Protocol Doxycycline Monohydrate 100 mg 08/06/17 22:00 08/08/17 04:59 Doxycycline PO 08/14/17 06:01 100 mg BID FERNANDO Administration Enoxaparin Sodium 170 mg 08/06/17 22:00 08/08/17 05:00 Lovenox SC 170 mg Q12@0600,1800 [facility] Administration Fluticasone Propionate 1 spray 08/06/17 19:52 Flonase Nasal [place] NASAL BID PRN NASAL CONGESTION Glucagon 1 mg 08/08/17 01:13 08/08/17 01:36 IM 1 mg .X1 PRN Administration Hypoglycemia Insulin Aspart 0 units 08/08/17 07:00 08/08/17 11:52 Novolog Flexpen (Bkc) SC 1 u ACHS F[facility]O Administration Protocol Losartan Potassium 100 mg 08/07/17 06:00 08/08/17 04:59 Cozaar PO 100 mg DAILY [facility]O Administration Metoprolol Succinate 100 mg 08/07/17 06:00 08/08/17 05:09 Toprol Xl (Beta Luna) PO 100 mg DAILY [facility] Administration Multi-Ingredient Cream 1 applic 08/06/17 22:00 08/08/17 05:00 Eucerin TOPICAL 1 applicatio BID@0600,2200 [facility] Administration Protocol Nystatin 1 applic 08/07/17 06:00 08/08/17 05:00 Mycostatin Powder TOPICAL 1 applicatio BID [facility] Administration Protocol Polyethylene Glycol 34 gm 08/07/17 06:00 08/08/17 04:59 Miralax PO Not Given DAILY [facility] Senna/Docusate Sodium 2 tablet 08/07/17 06:00 08/08/17 11:12 Senokot-S, Tricia-Colace PO Not Given BID [facility] Tamsulosin HCl 0.4 mg 08/07/17 06:00 08/08/17 04:59 Flomax PO 0.4 mg DAILY [facility] Administration Tuberculin PPD 5 tu 08/14/17 10:00 Tubersol, Aplisol, Ppd ID 08/14/17 10:01 X1 ONE Warfarin Sodium 5 mg 08/06/17 22:00 08/07/17 17:58 Coumadin (Pbkc) PO 5 mg DAILY@1700 [facility] Administration Problem List Diabetes mellitus (Chronic) Morbid obesity (Chronic) Depression (Chronic) Chronic kidney disease (Chronic) Kidney stones (Chronic) Colonic polyp (Chronic) Thromboembolism (Chronic) Vital Signs Temp Pulse Resp BP Pulse Ox 98.0 F 58 L 18 154/76 H 99 08/07/17 16:00 08/08/17 13:25 08/08/17 13:25 08/08/17 05:09 08/08/17 10:58 Oxygen Flow Rate 3.5 Oxygen Delivery Method Nasal Cannula Weight: 174.05 kg Body Mass Index (BMI) 52.0 Finger Stick Blood Glucose 216 Sodium 139 mmol/L (136-145) 08/07/17 05:20 Potassium 3.9 mmol/L (3.5-5.1) 08/07/17 05:20 Chloride 106 mmol/L (98-107) 08/07/17 05:20 Carbon Dioxide 25.0 mmol/L (21.0-32.0) 08/07/17 05:20 Anion Gap 8 (5-15) 08/07/17 05:20 BUN 22 mg/dL (7-18) H 08/07/17 05:20 Creatinine 1.73 mg/dL (0.70-1.30) H 08/07/17 05:20 Est GFR (MDRD) Af Amer 50 mL/min (>60) L 08/07/17 05:20 Est GFR (MDRD) Non-Af 41 mL/min (>60) L 08/07/17 05:20 BUN/Creatinine Ratio 12.7 RATIO (10-20) 08/07/17 05:20 Glucose 85 mg/dL (74-106) 08/07/17 05:20 Assessment/Plan: 1) Pain APAP prn. Continue to monitor prn medication use, daily pain scores. 2) HTN Losartan, metoprolol. BP/HR at goal, BUN/SCr at baseline, K wnl. Continue to monitor electrolytes, K, renal function. 3) Pulm Duoneb aerosols scheduled, albuterol aerosols prn, fluticasone spray prn. Continue to monitor prn medication use, for shortness of breath. 4) DVT/PE Enoxaparin twice daily, bridge to warfarin goal INR 2-3. Hgb/Hct at baseline, BUN/SCr at baseline. Continue to monitor renal function, s/s bleeding. 5) DM2 Insulin aspart correctional scale. Continue to monitor BGT, s/s hyper/hypoglycemia, insulin requirements. 6) HLD Atorvastatin daily. Lipids not at goal at last check, hepatic enzymes wnl. Continue to monitor lipids, enzymes. 7) Tamsulosin daily, doxycycline twice daily. Continue to monitor s/s infection. 8) Derm Nystatin, Eucerin, Calmoseptine. Continue to monitor clinically. Psychotropic Medications: 9) Depression Citalopram daily. Continue to monitor s/s depression. Unnecessary Medications: None Bowel Regimen: 10) Senna/s, PEG, prn bisacodyl. Continue to monitor prn medication use, for constipation/diarrhea. Date of Note:: 08/08/17 - Provider Comments Provider responsibility: Provider responsible to enter orders to implement recommendations <José Manuel Hernandez Chi - Last Filed: 08/08/17 19:37> Progress Note - Pharmacy Subjective: [] Objective: Allergies MARGIE Inhibitors Allergy (Unknown, Verified 08/04/17 19:15) Unknown cefepime Allergy (Verified 08/04/17 19:15) Other WEAKNESS & FALLING ipodate [Ipodate] Allergy (Verified 08/04/17 19:15) Shortness of breath levofloxacin [Levofloxacin] Allergy (Verified 08/04/17 19:15) Anaphylaxis lisinopril Allergy (Verified 08/04/17 19:15) Shortness of breath ofloxacin Allergy (Verified 08/04/17 19:15) Unknown Quinolones Allergy (Verified 08/04/17 19:15) Anaphylaxis Home Medications Medication Instructions Recorded Atorvastatin Calcium [Lipitor] 40 mg PO QHS 05/29/15 Citalopram [Celexa] 40 mg PO DAILY 05/29/15 Docusate Sodium [Colace] 200 mg PO QODAY PRN 05/29/15 Fluticasone 0.05% [Flonase Nasal 1 spray NASAL BID PRN 05/29/15 [place]] Tamsulosin HCl [Flomax] 0.4 mg PO DAILY 07/08/16 Metoprolol Succinate 100 mg PO DAILY 02/08/17 Losartan Potassium [Cozaar] 100 mg PO DAILY 07/24/17 Albuterol Aerosols [Ventolin 2.5 mg INHALATION Q4H PRN PRN 08/06/17 Aerosols] vial.neb. Doxycycline 100 mg PO BID 08/06/17 Enoxaparin [Lovenox] 170 mg SC Q12@0600,1800 08/06/17 Insulin U-500 [Humulin R U-500 0.5 ml SC TIDAC 08/06/17 ([facility])] Ipratropium/Albuterol Sulfate 3 ml INHALATION Q6H.RT 08/06/17 [Duoneb] Nystatin Powder [Mycostatin Powder] 1 applic TOPICAL BID 08/06/17 Warfarin [Coumadin] 5 mg PO DAILY@1700 08/06/17 Current Medications Generic Name Dose Route Start Last Admin Trade Name Freq PRN Reason Stop Dose Admin Acetaminophen 1,000 mg 08/06/17 20:36 Tylenol PO Q8H PRN PRN MILD PAIN (1-3/10) Albuterol Sulfate 2.5 mg 08/06/17 19:52 Ventolin Aerosols INHALATION Q4H PRN PRN Shortness of breath, wheezing Albuterol/Ipratropium 3 ml 08/06/17 20:00 08/08/17 18:36 Duoneb INHALATION 3 ml Q6H.RT FERNANDO Administration Atorvastatin Calcium 40 mg 08/06/17 22:00 08/07/17 21:50 Lipitor PO 40 mg QHS FERNANDO Administration Bisacodyl 10 mg 08/06/17 20:37 Dulcolax PO DAILY PRN Constipation Calamine/Phenol 1 applic 08/06/17 22:00 08/08/17 14:30 Calmoseptine Ointment TOPICAL 1 applicatio TID [facility]O Administration Protocol Citalopram Hydrobromide 40 mg 08/07/17 06:00 08/08/17 04:59 Celexa PO 40 mg DAILY FERNANDO Administration Dextrose 0 gm 08/08/17 01:13 D50w Syringe IV X1 PRN Hypoglycemia Protocol Doxycycline Monohydrate 100 mg 08/06/17 22:00 08/08/17 17:56 Doxycycline PO 08/14/17 06:01 100 mg BID FERNANDO Administration Enoxaparin Sodium 170 mg 08/06/17 22:00 08/08/17 17:57 Lovenox SC 170 mg Q12@0600,1800 FERNANDO Administration Fluticasone Propionate 1 spray 08/06/17 19:52 Flonase Nasal [place] NASAL BID PRN NASAL CONGESTION Glucagon 1 mg 08/08/17 01:13 08/08/17 01:36 IM 1 mg .X1 PRN Administration Hypoglycemia Insulin Aspart 0 units 08/08/17 07:00 08/08/17 17:58 Novolog Flexpen (Bkc) SC 4 u ACHS FERNANDO Administration Protocol Losartan Potassium 100 mg 08/07/17 06:00 08/08/17 04:59 Cozaar PO 100 mg DAILY FERNANDO Administration Metoprolol Succinate 100 mg 08/07/17 06:00 08/08/17 05:09 Toprol Xl (Beta Luna) PO 100 mg DAILY FERNANDO Administration Multi-Ingredient Cream 1 applic 08/06/17 22:00 08/08/17 05:00 Eucerin TOPICAL 1 applicatio BID@0600,2200 [facility] Administration Protocol Nystatin 1 applic 08/07/17 06:00 08/08/17 17:57 Mycostatin Powder TOPICAL 1 applicatio BID [facility] Administration Protocol Polyethylene Glycol 34 gm 08/07/17 06:00 08/08/17 04:59 Miralax PO Not Given DAILY [facility] Senna/Docusate Sodium 2 tablet 08/07/17 06:00 08/08/17 11:12 Senokot-S, Tricia-Colace PO Not Given BID [facility] Tamsulosin HCl 0.4 mg 08/07/17 06:00 08/08/17 04:59 Flomax PO 0.4 mg DAILY FER[facility]O Administration Tuberculin PPD 5 tu 08/14/17 10:00 Tubersol, Aplisol, Ppd ID 08/14/17 10:01 X1 ONE Warfarin Sodium 5 mg 08/06/17 22:00 08/08/17 17:56 Coumadin (Pbkc) PO 5 mg DAILY@1700 [facility] Administration Problem List Diabetes mellitus (Chronic) Morbid obesity (Chronic) Depression (Chronic) Chronic kidney disease (Chronic) Kidney stones (Chronic) Colonic polyp (Chronic) Thromboembolism (Chronic) Vital Signs Temp Pulse Resp BP Pulse Ox 97.7 F L 51 L 17 147/78 H 98 08/08/17 16:00 08/08/17 18:36 08/08/17 18:36 08/08/17 16:00 08/08/17 19:14 Oxygen Flow Rate 3 Oxygen Delivery Method Room Air Weight: 174.05 kg Body Mass Index (BMI) 52.0 Finger Stick Blood Glucose 216 Sodium 139 mmol/L (136-145) 08/07/17 05:20 Potassium 3.9 mmol/L (3.5-5.1) 08/07/17 05:20 Chloride 106 mmol/L (98-107) 08/07/17 05:20 Carbon Dioxide 25.0 mmol/L (21.0-32.0) 08/07/17 05:20 Anion Gap 8 (5-15) 08/07/17 05:20 BUN 22 mg/dL (7-18) H 08/07/17 05:20 Creatinine 1.73 mg/dL (0.70-1.30) H 08/07/17 05:20 Est GFR (MDRD) Af Amer 50 mL/min (>60) L 08/07/17 05:20 Est GFR (MDRD) Non-Af 41 mL/min (>60) L 08/07/17 05:20 BUN/Creatinine Ratio 12.7 RATIO (10-20) 08/07/17 05:20 Glucose 85 mg/dL (74-106) 08/07/17 05:20 Assessment/Plan: Psychotropic Medications: Unnecessary Medications: Bowel Regimen: - Provider Comments Provider responsibility: Provider responsible to enter orders to implement recommendations Provider Comments to Recommendations by Pharmacy: Agree
--- NOTE | 2017-08-08 13:57 | PHA.CONS_ITS ---
<David Decker Gaudencio - Last Filed: 08/08/17 13:47> Progress Note - Pharmacy Subjective: TCU Admission Objective: Allergies MARGIE Inhibitors Allergy (Unknown, Verified 08/04/17 19:15) Unknown cefepime Allergy (Verified 08/04/17 19:15) Other WEAKNESS & FALLING ipodate [Ipodate] Allergy (Verified 08/04/17 19:15) Shortness of breath levofloxacin [Levofloxacin] Allergy (Verified 08/04/17 19:15) Anaphylaxis lisinopril Allergy (Verified 08/04/17 19:15) Shortness of breath ofloxacin Allergy (Verified 08/04/17 19:15) Unknown Quinolones Allergy (Verified 08/04/17 19:15) Anaphylaxis Home Medications Medication Instructions Recorded Atorvastatin Calcium [Lipitor] 40 mg PO QHS 05/29/15 Citalopram [Celexa] 40 mg PO DAILY 05/29/15 Docusate Sodium [Colace] 200 mg PO QODAY PRN 15 Fluticasone 0.05% [Flonase Nasal 1 spray NASAL BID PRN 05/29/15 [place]] Tamsulosin HCl [Flomax] 0.4 mg PO DAILY 07/08/16 Metoprolol Succinate 100 mg PO DAILY 02/08/17 Losartan Potassium [Cozaar] 100 mg PO DAILY 07/24/17 Albuterol Aerosols [Ventolin 2.5 mg INHALATION Q4H PRN PRN 08/06/17 Aerosols] vial.neb. Doxycycline 100 mg PO BID 08/06/17 Enoxaparin [Lovenox] 170 mg SC Q12@0600,1800 08/06/17 Insulin U-500 [Humulin R U-500 0.5 ml SC TIDAC 08/06/17 ([facility])] Ipratropium/Albuterol Sulfate 3 ml INHALATION Q6H.RT 08/06/17 [Duoneb] Nystatin Powder [Mycostatin Powder] 1 applic TOPICAL BID 08/06/17 Warfarin [Coumadin] 5 mg PO DAILY@1700 08/06/17 Current Medications Generic Name Dose Route Start Last Admin Trade Name Freq PRN Reason Stop Dose Admin Acetaminophen 1,000 mg 08/06/17 20:36 Tylenol PO Q8H PRN PRN MILD PAIN (1-3/10) Albuterol Sulfate 2.5 mg 08/06/17 19:52 Ventolin Aerosols INHALATION Q4H PRN PRN Shortness of breath, wheezing Albuterol/Ipratropium 3 ml 08/06/17 20:00 08/08/17 13:25 Duoneb INHALATION 3 ml Q6H.RT FERNANDO Administration Atorvastatin Calcium 40 mg 08/06/17 22:00 08/07/17 21:50 Lipitor PO 40 mg QHS FERNANDO Administration Bisacodyl 10 mg 08/06/17 20:37 Dulcolax PO DAILY PRN Constipation Calamine/Phenol 1 applic 08/06/17 22:00 08/08/17 04:59 Calmoseptine Ointment TOPICAL 1 applicatio TID [facility] Administration Protocol Citalopram Hydrobromide 40 mg 08/07/17 06:00 08/08/17 04:59 Celexa PO 40 mg DAILY FERNANDO Administration Dextrose 0 gm 08/08/17 01:13 D50w Syringe IV X1 PRN Hypoglycemia Protocol Doxycycline Monohydrate 100 mg 08/06/17 22:00 08/08/17 04:59 Doxycycline PO 08/14/17 06:01 100 mg BID FERNANDO Administration Enoxaparin Sodium 170 mg 08/06/17 22:00 08/08/17 05:00 Lovenox SC 170 mg Q12@0600,1800 FERNANDO Administration Fluticasone Propionate 1 spray 08/06/17 19:52 Flonase Nasal [place] NASAL BID PRN NASAL CONGESTION Glucagon 1 mg 08/08/17 01:13 08/08/17 01:36 IM 1 mg .X1 PRN Administration Hypoglycemia Insulin Aspart 0 units 08/08/17 07:00 08/08/17 11:52 Novolog Flexpen (Bkc) SC 1 u ACHS FERNANDO Administration Protocol Losartan Potassium 100 mg 08/07/17 06:00 08/08/17 04:59 Cozaar PO 100 mg DAILY FERNANDO Administration Metoprolol Succinate 100 mg 08/07/17 06:00 08/08/17 05:09 Toprol Xl (Beta Luna) PO 100 mg DAILY FERNANDO Administration Multi-Ingredient Cream 1 applic 08/06/17 22:00 08/08/17 05:00 Eucerin TOPICAL 1 applicatio BID@0600,2200 [facility] Administration Protocol Nystatin 1 applic 08/07/17 06:00 08/08/17 05:00 Mycostatin Powder TOPICAL 1 applicatio BID [facility] Administration Protocol Polyethylene Glycol 34 gm 08/07/17 06:00 08/08/17 04:59 Miralax PO Not Given DAILY [facility] Senna/Docusate Sodium 2 tablet 08/07/17 06:00 08/08/17 11:12 Senokot-S, Tricia-Colace PO Not Given BID [facility] Tamsulosin HCl 0.4 mg 08/07/17 06:00 08/08/17 04:59 Flomax PO 0.4 mg DAILY [facility] Administration Tuberculin PPD 5 tu 08/14/17 10:00 Tubersol, Aplisol, Ppd ID 08/14/17 10:01 X1 ONE Warfarin Sodium 5 mg 08/06/17 22:00 08/07/17 17:58 Coumadin (Pbkc) PO 5 mg DAILY@1700 [facility] Administration Problem List Diabetes mellitus (Chronic) Morbid obesity (Chronic) Depression (Chronic) Chronic kidney disease (Chronic) Kidney stones (Chronic) Colonic polyp (Chronic) Thromboembolism (Chronic) Vital Signs Temp Pulse Resp BP Pulse Ox 98.0 F 58 L 18 154/76 H 99 08/07/17 16:00 08/08/17 13:25 08/08/17 13:25 08/08/17 05:09 08/08/17 10:58 Oxygen Flow Rate 3.5 Oxygen Delivery Method Nasal Cannula Weight: 174.05 kg Body Mass Index (BMI) 52.0 Finger Stick Blood Glucose 216 Sodium 139 mmol/L (136-145) 08/07/17 05:20 Potassium 3.9 mmol/L (3.5-5.1) 08/07/17 05:20 Chloride 106 mmol/L (98-107) 08/07/17 05:20 Carbon Dioxide 25.0 mmol/L (21.0-32.0) 08/07/17 05:20 Anion Gap 8 (5-15) 08/07/17 05:20 BUN 22 mg/dL (7-18) H 08/07/17 05:20 Creatinine 1.73 mg/dL (0.70-1.30) H 08/07/17 05:20 Est GFR (MDRD) Af Amer 50 mL/min (>60) L 08/07/17 05:20 Est GFR (MDRD) Non-Af 41 mL/min (>60) L 08/07/17 05:20 BUN/Creatinine Ratio 12.7 RATIO (10-20) 08/07/17 05:20 Glucose 85 mg/dL (74-106) 08/07/17 05:20 Assessment/Plan: 1) Pain APAP prn. Continue to monitor prn medication use, daily pain scores. 2) HTN Losartan, metoprolol. BP/HR at goal, BUN/SCr at baseline, K wnl. Continue to monitor electrolytes, K, renal function. 3) Pulm Duoneb aerosols scheduled, albuterol aerosols prn, fluticasone spray prn. Continue to monitor prn medication use, for shortness of breath. 4) DVT/PE Enoxaparin twice daily, bridge to warfarin goal INR 2-3. Hgb/Hct at baseline , BUN/SCr at baseline. Continue to monitor renal function, s/s bleeding. 5) DM2 Insulin aspart correctional scale. Continue to monitor BGT, s/s hyper/ hypoglycemia, insulin requirements. 6) HLD Atorvastatin daily. Lipids not at goal at last check, hepatic enzymes wnl. Continue to monitor lipids, enzymes. 7) Tamsulosin daily, doxycycline twice daily. Continue to monitor s/s infection. 8) Derm Nystatin, Eucerin, Calmoseptine. Continue to monitor clinically. Psychotropic Medications: 9) Depression Citalopram daily. Continue to monitor s/s depression. Unnecessary Medications: None Bowel Regimen: 10) Senna/s, PEG, prn bisacodyl. Continue to monitor prn medication use, for constipation/diarrhea. Date of Note:: 08/08/17 - Provider Comments Provider responsibility: Provider responsible to enter orders to implement recommendations <José Manuel Hernandez Chi - Last Filed: 08/08/17 19:37> Progress Note - Pharmacy Subjective: [] Objective: Allergies MARGIE Inhibitors Allergy (Unknown, Verified 08/04/17 19:15) Unknown cefepime Allergy (Verified 08/04/17 19:15) Other WEAKNESS & FALLING ipodate [Ipodate] Allergy (Verified 08/04/17 19:15) Shortness of breath levofloxacin [Levofloxacin] Allergy (Verified 08/04/17 19:15) Anaphylaxis lisinopril Allergy (Verified 08/04/17 19:15) Shortness of breath ofloxacin Allergy (Verified 08/04/17 19:15) Unknown Quinolones Allergy (Verified 08/04/17 19:15) Anaphylaxis Home Medications Medication Instructions Recorded Atorvastatin Calcium [Lipitor] 40 mg PO QHS 05/29/15 Citalopram [Celexa] 40 mg PO DAILY 05/29/15 Docusate Sodium [Colace] 200 mg PO QODAY PRN 05/29/15 Fluticasone 0.05% [Flonase Nasal 1 spray NASAL BID PRN 05/29/15 [place]] Tamsulosin HCl [Flomax] 0.4 mg PO DAILY 07/08/16 Metoprolol Succinate 100 mg PO DAILY 02/08/17 Losartan Potassium [Cozaar] 100 mg PO DAILY 07/24/17 Albuterol Aerosols [Ventolin 2.5 mg INHALATION Q4H PRN PRN 08/06/17 Aerosols] vial.neb. Doxycycline 100 mg PO BID 08/06/17 Enoxaparin [Lovenox] 170 mg SC Q12@0600,1800 08/06/17 Insulin U-500 [Humulin R U-500 0.5 ml SC TIDAC 08/06/17 ([facility])] Ipratropium/Albuterol Sulfate 3 ml INHALATION Q6H.RT 08/06/17 [Duoneb] Nystatin Powder [Mycostatin Powder] 1 applic TOPICAL BID 08/06/17 Warfarin [Coumadin] 5 mg PO DAILY@1700 08/06/17 Current Medications Generic Name Dose Route Start Last Admin Trade Name Freq PRN Reason Stop Dose Admin Acetaminophen 1,000 mg 08/06/17 20:36 Tylenol PO Q8H PRN PRN MILD PAIN (1-3/10) Albuterol Sulfate 2.5 mg 08/06/17 19:52 Ventolin Aerosols INHALATION Q4H PRN PRN Shortness of breath, wheezing Albuterol/Ipratropium 3 ml 08/06/17 20:00 08/08/17 18:36 Duoneb INHALATION 3 ml Q6H.RT FERNANDO Administration Atorvastatin Calcium 40 mg 08/06/17 22:00 08/07/17 21:50 Lipitor PO 40 mg QHS FERNA[facility]O Administration Bisacodyl 10 mg 08/06/17 20:37 Dulcolax PO DAILY PRN Constipation Calamine/Phenol 1 applic 08/06/17 22:00 08/08/17 14:30 Calmoseptine Ointment TOPICAL 1 applicatio TID [facility] Administration Protocol Citalopram Hydrobromide 40 mg 08/07/17 06:00 08/08/17 04:59 Celexa PO 40 mg DAILY FERNA[facility]O Administration Dextrose 0 gm 08/08/17 01:13 D50w Syringe IV X1 PRN Hypoglycemia Protocol Doxycycline Monohydrate 100 mg 08/06/17 22:00 08/08/17 17:56 Doxycycline PO 08/14/17 06:01 100 mg BID FERNANDO Administration Enoxaparin Sodium 170 mg 08/06/17 22:00 08/08/17 17:57 Lovenox SC 170 mg Q12@0600,1800 FERNA[facility]O Administration Fluticasone Propionate 1 spray 08/06/17 19:52 Flonase Nasal [place] NASAL BID PRN NASAL CONGESTION Glucagon 1 mg 08/08/17 01:13 08/08/17 01:36 IM 1 mg .X1 PRN Administration Hypoglycemia Insulin Aspart 0 units 08/08/17 07:00 08/08/17 17:58 Novolog Flexpen (Bkc) SC 4 u ACHS [facility]O Administration Protocol Losartan Potassium 100 mg 08/07/17 06:00 08/08/17 04:59 Cozaar PO 100 mg DAILY F[facility]O Administration Metoprolol Succinate 100 mg 08/07/17 06:00 08/08/17 05:09 Toprol Xl (Beta Luna) PO 100 mg DAILY [facility]O Administration Multi-Ingredient Cream 1 applic 08/06/17 22:00 08/08/17 05:00 Eucerin TOPICAL 1 applicatio BID@0600,2200 [facility] Administration Protocol Nystatin 1 applic 08/07/17 06:00 08/08/17 17:57 Mycostatin Powder TOPICAL 1 applicatio BID [facility] Administration Protocol Polyethylene Glycol 34 gm 08/07/17 06:00 08/08/17 04:59 Miralax PO Not Given DAILY [facility] Senna/Docusate Sodium 2 tablet 08/07/17 06:00 08/08/17 11:12 Senokot-S, Tricia-Colace PO Not Given BID [facility] Tamsulosin HCl 0.4 mg 08/07/17 06:00 08/08/17 04:59 Flomax PO 0.4 mg DAILY [facility] Administration Tuberculin PPD 5 tu 08/14/17 10:00 Tubersol, Aplisol, Ppd ID 08/14/17 10:01 X1 ONE Warfarin Sodium 5 mg 08/06/17 22:00 08/08/17 17:56 Coumadin (Pbkc) PO 5 mg DAILY@1700 [facility] Administration Problem List Diabetes mellitus (Chronic) Morbid obesity (Chronic) Depression (Chronic) Chronic kidney disease (Chronic) Kidney stones (Chronic) Colonic polyp (Chronic) Thromboembolism (Chronic) Vital Signs Temp Pulse Resp BP Pulse Ox 97.7 F L 51 L 17 147/78 H 98 08/08/17 16:00 08/08/17 18:36 08/08/17 18:36 08/08/17 16:00 08/08/17 19:14 Oxygen Flow Rate 3 Oxygen Delivery Method Room Air Weight: 174.05 kg Body Mass Index (BMI) 52.0 Finger Stick Blood Glucose 216 Sodium 139 mmol/L (136-145) 08/07/17 05:20 Potassium 3.9 mmol/L (3.5-5.1) 08/07/17 05:20 Chloride 106 mmol/L (98-107) 08/07/17 05:20 Carbon Dioxide 25.0 mmol/L (21.0-32.0) 08/07/17 05:20 Anion Gap 8 (5-15) 08/07/17 05:20 BUN 22 mg/dL (7-18) H 08/07/17 05:20 Creatinine 1.73 mg/dL (0.70-1.30) H 08/07/17 05:20 Est GFR (MDRD) Af Amer 50 mL/min (>60) L 08/07/17 05:20 Est GFR (MDRD) Non-Af 41 mL/min (>60) L 08/07/17 05:20 BUN/Creatinine Ratio 12.7 RATIO (10-20) 08/07/17 05:20 Glucose 85 mg/dL (74-106) 08/07/17 05:20 Assessment/Plan: Psychotropic Medications: Unnecessary Medications: Bowel Regimen: - Provider Comments Provider responsibility: Provider responsible to enter orders to implement recommendations Provider Comments to Recommendations by Pharmacy: Agree
[2017-08-08 16:46] LABS: Bedside Glucose 303 mg/dL (70-110)
[2017-08-08 21:06] LABS: Bedside Glucose 307 mg/dL (70-110)
[2017-08-08] MEDS: Atorvastatin Calcium 40 MG Tablet PO (21:47)
[2017-08-09] VITALS (8 sets, daily range): BP systolic 144–172; BP diastolic 73–78; PULSE 44–62; RESP 14–19; TEMP 36.7; O2SAT 94–97
[2017-08-09] MEDS: Ipratropium/Albuterol Sulfate 3 ML AMPUL.NEB INHALATION ×2 (00:33→06:40)
--- NOTE | 2017-08-09 00:45 | NURSING ---
Pt remains in contact isolation for MRSA in urine this shift
[2017-08-09 02:00] LABS: Bedside Glucose 342 mg/dL (70-110)
[2017-08-09] MEDS: Polyethylene Glycol 3350 17 GM PACKET 34 GM PO (05:57)
[2017-08-09] MEDS: Menthol/Lanolin/Calamine/Znox 113 GM Tube 1 APPLIC TOPICAL ×2 (05:57→21:22)
[2017-08-09] MEDS: Metoprolol(XL)Succ 100 MG Tablet PO (05:58)
[2017-08-09] MEDS: Losartan Potassium 100 MG Tablet PO (05:58)
[2017-08-09] MEDS: Tamsulosin HCl 0.4 MG Capsule PO (05:58)
[2017-08-09] MEDS: Citalopram 40 MG TABLET PO (05:58)
[2017-08-09] MEDS: Senna/Docusate Sodium 1 Tablet 2 TABLET PO (05:58)
[2017-08-09] MEDS: Doxycycline 100 MG CAPSULE PO ×2 (05:58→18:24)
[2017-08-09] MEDS: Nystatin Powder 15gm Bottle 1 APPLIC TOPICAL ×2 (05:59→18:27)
[2017-08-09] MEDS: Enoxaparin 100 MG/ML Syringe 170 MG SC ×2 (06:00→18:25)
[2017-08-09 07:01] LABS: Bedside Glucose 273 mg/dL (70-110)
[2017-08-09 07:15] LABS: International Normalized Ratio 1.5; Prothrombin Time (Protime)PT. 17.6 SECONDS (11.7-14.9)
--- NOTE | 2017-08-09 08:25 | NURSING ---
Pt remains in contact isolation for MRSA in urine this shift
[2017-08-09 11:21] LABS: Bedside Glucose 301 mg/dL (70-110)
[2017-08-09 17:00] LABS: Bedside Glucose 210 mg/dL (70-110)
[2017-08-09 21:16] LABS: Bedside Glucose 285 mg/dL (70-110)
[2017-08-09] MEDS: Atorvastatin Calcium 40 MG Tablet PO (21:22)
[2017-08-10 02:06] LABS: Bedside Glucose 229 mg/dL (70-110)
[2017-08-10] MEDS: Menthol/Lanolin/Calamine/Znox 113 GM Tube 1 APPLIC TOPICAL ×3 (06:19→19:51)
[2017-08-10 06:20] VITALS: BP 162/86; PULSE 56
[2017-08-10 06:20] LABS: International Normalized Ratio 1.5; Prothrombin Time (Protime)PT. 17.5 SECONDS (11.7-14.9)
[2017-08-10] MEDS: Tamsulosin HCl 0.4 MG Capsule PO (06:20)
[2017-08-10] MEDS: Citalopram 40 MG TABLET PO (06:20)
[2017-08-10] MEDS: Polyethylene Glycol 3350 17 GM PACKET 34 GM PO (06:20)
[2017-08-10] MEDS: Senna/Docusate Sodium 1 Tablet 2 TABLET PO ×2 (06:20→17:36)
[2017-08-10] MEDS: Doxycycline 100 MG CAPSULE PO ×2 (06:20→17:36)
[2017-08-10] MEDS: Losartan Potassium 100 MG Tablet PO (06:20)
[2017-08-10] MEDS: Metoprolol(XL)Succ 100 MG Tablet PO (06:20)
[2017-08-10] MEDS: Nystatin Powder 15gm Bottle 1 APPLIC TOPICAL ×2 (06:22→19:50)
[2017-08-10] MEDS: Enoxaparin 100 MG/ML Syringe 170 MG SC ×2 (06:22→17:37)
[2017-08-10 06:51] LABS: Bedside Glucose 202 mg/dL (70-110)
--- NOTE | 2017-08-10 08:02 | NURSING ---
PT IN PRECAUTIONS THIS SHIFT FOR MRSA.
--- NOTE | 2017-08-10 08:05 | NURSING ---
Dr. Hernandez reviewed INR, Coumadin increased to 6mg daily, pt updated
[2017-08-10 09:37] VITALS: PULSE 45; RESP 18; O2SAT 94
[2017-08-10 11:06] LABS: Bedside Glucose 198 mg/dL (70-110)
--- NOTE | 2017-08-10 11:34 | CASEMGMT ---
Brief interview for mental status (BIMS) and resident mood interview (PHQ-9) completed on this day. BIMS score 1015. PHQ-9 score 08/18
--- NOTE | 2017-08-10 11:36 | CASEMGMT ---
Social Work Spoke with resident in room. This social work therapist communicating that discharge date has been set for 08/13/17. Resident is agreeable to discharge date and plans to discharge to Sleep Lab on 08/13/17 and then home on 08/14/17 with discharge from the [facility] being 08/13/17. Resident plans to discharge home with spouse after sleep study. Resident spouse aware of discharge plan. Support given. Proposed discharge date: 08/13/17 PLAN: Discharge to Sleep Lab and then home with spouse. Negar CHAVEZ, [employer]
[2017-08-10 15:05] VITALS: BP 173/57; PULSE 45; RESP 18; TEMP 36.2; O2SAT 96
[2017-08-10 15:45] VITALS: O2SAT 95
[2017-08-10 16:49] VITALS: BP 158/74; PULSE 47
[2017-08-10 17:21] LABS: Bedside Glucose 222 mg/dL (70-110)
--- NOTE | 2017-08-10 17:45 | NURSING ---
Dr. Hernandez reviewed vitals, Toprol XL decreased, pt updated
[2017-08-10] MEDS: Atorvastatin Calcium 40 MG Tablet PO (19:51)
[2017-08-10 21:26] LABS: Bedside Glucose 250 mg/dL (70-110)
[2017-08-11 00:16] VITALS: PULSE 60; RESP 14; RESP 18; O2SAT 96
[2017-08-11 02:00] LABS: Bedside Glucose 251 mg/dL (70-110)
[2017-08-11 03:05] VITALS: PULSE 62; RESP 14; RESP 16; O2SAT 96
[2017-08-11] MEDS: Losartan Potassium 100 MG Tablet PO (05:44)
[2017-08-11] MEDS: Polyethylene Glycol 3350 17 GM PACKET 34 GM PO (05:44)
[2017-08-11] MEDS: Citalopram 40 MG TABLET PO (05:44)
[2017-08-11] MEDS: Tamsulosin HCl 0.4 MG Capsule PO (05:44)
[2017-08-11] MEDS: Doxycycline 100 MG CAPSULE PO ×2 (05:45→17:47)
[2017-08-11] MEDS: Menthol/Lanolin/Calamine/Znox 113 GM Tube 1 APPLIC TOPICAL ×3 (05:45→21:59)
[2017-08-11] MEDS: Nystatin Powder 15gm Bottle 1 APPLIC TOPICAL ×2 (05:45→17:48)
[2017-08-11 06:03] LABS: International Normalized Ratio 1.5; Prothrombin Time (Protime)PT. 17.2 SECONDS (11.7-14.9)
[2017-08-11 06:31] LABS: Bedside Glucose 175 mg/dL (70-110)
[2017-08-11] MEDS: Senna/Docusate Sodium 1 Tablet 2 TABLET PO ×2 (06:33→17:47)
[2017-08-11] MEDS: Enoxaparin 100 MG/ML Syringe 170 MG SC ×2 (06:48→17:49)
--- NOTE | 2017-08-11 08:26 | NURSING ---
Toprol held per Dr David ZHENG. Hold Tropol for HR <40.
[2017-08-11 08:36] VITALS: PULSE 44
--- NOTE | 2017-08-11 09:07 | PCM.DC ---
- Discharge Diagnoses Current Active Problems: Current Active and Chronic Problems Diabetes mellitus (Chronic) Morbid obesity (Chronic) Depression (Chronic) Chronic kidney disease (Chronic) Kidney stones (Chronic) Colonic polyp (Chronic) Thromboembolism (Chronic) You will use the following diet at home:: No restrictions, Regular Your food should be the consistency of: Regular Your liquids should be the consistency of: Regular/Thin Discharge Activity: Return to Normal Activity, Use Walker Weight Bearing Status: Weight bearing as tolerated Call your doctor if you observe: Fever of 101 or Higher, Inability to urinate, Inability to have a bowel movement, Shortness of breath, Chest pain, Uncontrolled pain Allergies/Adverse Reactions: Allergies MARGIE Inhibitors Allergy (Unknown, Verified 08/04/17 19:15) Unknown cefepime Allergy (Verified 08/04/17 19:15) Other WEAKNESS & FALLING ipodate [Ipodate] Allergy (Verified 08/04/17 19:15) Shortness of breath levofloxacin [Levofloxacin] Allergy (Verified 08/04/17 19:15) Anaphylaxis lisinopril Allergy (Verified 08/04/17 19:15) Shortness of breath ofloxacin Allergy (Verified 08/04/17 19:15) Unknown Quinolones Allergy (Verified 08/04/17 19:15) Anaphylaxis Medications to take at Discharge Atorvastatin Calcium [Lipitor] 40 mg PO QHS 05/29/15 Citalopram [Celexa] 40 mg PO DAILY 05/29/15 Fluticasone 0.05% [Flonase Nasal [place]] 1 spray NASAL BID PRN 05/29/15 Tamsulosin HCl [Flomax] 0.4 mg PO DAILY 07/08/16 Metoprolol Succinate 100 mg PO DAILY 02/08/17 Losartan Potassium [Cozaar] 100 mg PO DAILY 07/24/17 Nystatin Powder [Mycostatin Powder] 1 applic TOPICAL BID 08/06/17 Acetaminophen [Tylenol] 1,000 mg PO Q8H PRN PRN tablet 08/11/17 Albuterol Inhaler [Ventolin Hfa] 2 puff INHALATION Q6HWA.RT #1 inhaler 08/11/17 Doxycycline 100 mg PO BID #2 cap 08/11/17 Insulin Aspart [Novolog Flexpen] 13 units SC TIDAC #1 flexpen 08/11/17 Insulin Detemir [Levemir FlexPen] 20 units SC BID #1 insuln.pen 08/11/17 Menthol/Lanolin/Calamine/Znox [Calmoseptine Ointment] 1 applic TOPICAL TID tube 08/11/17 Metoprolol(XL)Succ [Toprol Xl (Beta Luna)] 50 mg PO DAILY #30 tab 08/11/17 Mineral Oil/Petrolatum,White [Eucerin] 1 applic TOPICAL BID@0600,2200 jar 08/11/17 Warfarin [Coumadin] 6 mg PO DAILY@1700 #30 tab 08/11/17 The following prescriptions were given: Albuterol Inhaler [Ventolin Hfa] 2 puff INHALATION Q6HWA.RT #1 inhaler Insulin Aspart [Novolog Flexpen] 13 units SC TIDAC #1 flexpen Metoprolol(XL)Succ [Toprol Xl (Beta Luna)] 50 mg PO DAILY #30 tab Warfarin [Coumadin] 6 mg PO DAILY@1700 #30 tab Doxycycline 100 mg PO BID #2 cap Insulin Detemir [Levemir FlexPen] 20 units SC BID #1 insuln.pen Orders to be completed after discharge: Prothrombin Time w/INR Time Frame: 1 Day, Location: Laboratory Primary Care Physician: Wili Nelson DO [Primary Care Provider] - Please follow up with your Primary Care Physician in: 1 week. Proposed Discharge Date: 08/13/17
--- NOTE | 2017-08-11 09:09 | PCM.DC.SUM ---
Discharge Date and Diagnosis Date of Admission: 08/06/17 Date of Discharge: 08/13/17 - Secondary Discharge Diagnosis Chronic Problems Diabetes mellitus (Chronic) Morbid obesity (Chronic) Depression (Chronic) Chronic kidney disease (Chronic) Kidney stones (Chronic) Colonic polyp (Chronic) Thromboembolism (Chronic) BPH (benign prostatic hyperplasia) (Chronic) Super obesity (Chronic) History of nephrolithiasis (Chronic) Debility (Chronic) Noncompliance (Chronic) with CPAP and follow up and with diet History of kidney stones (Chronic) COPD (chronic obstructive pulmonary disease) (Chronic) Type II diabetes mellitus, uncontrolled (Chronic) History of depression (Chronic) History of other venous thrombosis and embolism (Chronic) HLD (hyperlipidemia) (Chronic) HTN (hypertension) (Chronic) NILO (obstructive sleep apnea) (Chronic) Chronic renal failure, stage 3 (moderate) (Chronic) Bifascicular bundle branch block (Chronic) Colon polyps (Chronic) Family history of colon cancer (Chronic) Hospital Course and Treatment Imaging Results: 08/06/17 19:42 Diet: Calorie Controlled Is pt able to select menu?: Yes How many daily calories?: 1800 calorie Labs (Last 48 Hours) 08/09/17 08/09/17 08/09/17 11:16 16:45 21:11 PT INR POC Glucose 301 H 210 H 285 H 08/10/17 08/10/17 08/10/17 02:02 05:05 06:40 PT 17.5 H INR 1.5 POC Glucose 229 H 202 H 08/10/17 08/10/17 08/10/17 11:03 17:17 21:22 PT INR POC Glucose 198 H 222 H 250 H 08/11/17 08/11/17 08/11/17 01:52 05:05 06:11 PT 17.2 H INR 1.5 POC Glucose 251 H 175 H Operations: None Procedures: None Summary of Care Provided: The patient is a 76 year old Male with below past medical history hospitalized for debility, encephalopathy, secondary to MRSA urinary tract infection, complicated by untreated severe obstructive sleep apnea, admitted to TCU for rehabilitation, strengthening. [] Will discharge to sleep lab 08/13/2017 for sleep study. Will discharge home with spouse 08/14/2017 after sleep study. Resident has snoring, hypoxia, morning headaches, somnolence, fatigue, super obesity, requring sleep study. Discharge Diet: No Restrictions Discharge Activity: Return to Normal Activity, Use Walker Weight Bearing Status: Weight bearing as tolerated Call your doctor if you observe: Fever of 101 or Higher, Inability to urinate, Inability to have a bowel movement, Shortness of breath, Chest pain, Uncontrolled pain Home Medications: Medications to take at Discharge Atorvastatin Calcium [Lipitor] 40 mg PO QHS 05/29/15 Citalopram [Celexa] 40 mg PO DAILY 05/29/15 Fluticasone 0.05% [Flonase Nasal [place]] 1 spray NASAL BID PRN 05/29/15 Tamsulosin HCl [Flomax] 0.4 mg PO DAILY 07/08/16 Metoprolol Succinate 100 mg PO DAILY 02/08/17 Losartan Potassium [Cozaar] 100 mg PO DAILY 07/24/17 Nystatin Powder [Mycostatin Powder] 1 applic TOPICAL BID 08/06/17 Acetaminophen [Tylenol] 1,000 mg PO Q8H PRN PRN tablet 08/11/17 Albuterol Inhaler [Ventolin Hfa] 2 puff INHALATION Q6HWA.RT #1 inhaler 08/11/17 Doxycycline 100 mg PO BID #2 cap 08/11/17 Insulin Aspart [Novolog Flexpen] 13 units SC TIDAC #1 flexpen 08/11/17 Insulin Detemir [Levemir FlexPen] 20 units SC BID #1 insuln.pen 08/11/17 Menthol/Lanolin/Calamine/Znox [Calmoseptine Ointment] 1 applic TOPICAL TID tube 08/11/17 Metoprolol(XL)Succ [Toprol Xl (Beta [place])] 50 mg PO DAILY #30 tab 08/11/17 Mineral Oil/Petrolatum,White [Eucerin] 1 applic TOPICAL BID@0600,2200 jar 08/11/17 Warfarin [Coumadin] 6 mg PO DAILY@1700 #30 tab 08/11/17 Following Prescrptions Were Given to Patient: Albuterol Inhaler [Ventolin Hfa] 2 puff INHALATION Q6HWA.RT #1 inhaler Insulin Aspart [Novolog Flexpen] 13 units SC TIDAC #1 flexpen Metoprolol(XL)Succ [Toprol Xl (Beta [place])] 50 mg PO DAILY #30 tab Warfarin [Coumadin] 6 mg PO DAILY@1700 #30 tab Doxycycline 100 mg PO BID #2 cap Insulin Detemir [Levemir FlexPen] 20 units SC BID #1 insuln.pen Other Amb Orders: Prothrombin Time w/INR Time Frame: 1 Day, Location: Laboratory Primary Care Physician: Wili Nelson DO [Primary Care Provider] - Please follow up with your Primary Care Physician in: 1 week. Disposition: Home Patient Condition:: Stable Meaningful Use Info Meaningful Use Diagnoses (Choose all that apply): None applicable
[2017-08-11 10:00] VITALS: PULSE 60; RESP 18; O2SAT 96
[2017-08-11 11:11] LABS: Bedside Glucose 153 mg/dL (70-110)
[2017-08-11 15:23] VITALS: BP 157/61; PULSE 47; RESP 20; TEMP 36.3; O2SAT 94
--- NOTE | 2017-08-11 15:53 | CHAPLAIN ---
Type of Pastoral Visit _x__ Initial Visit ___ Follow-up Visit ___ On-call Visit ___ General Patient Visit ___ Spiritual Assessment ___ Family Conference ___ Bereavement ___ Rapid Response ___ Code Blue ___ Other (describe below) Pastoral Care Referral From _x__ Patient ___ Family ___ Nurse ___ Physician ___ Correspondence Analyst ___ Senior Etl Developer ___ Other (describe below) Sacrament/Intervention _x__ Active listening ___ Anointing ___ Faith ___ Bereavement ___ Communion _x__ Marcella exploration ___ _x__ Life review ___ Prayer ___ Reconciliation ___ Sacrament of Sick ___ Supportive presence ___ Wedding ___ Other (describe below) Pastoral Comments patient describes being very active in a sikhism in his early years but has not attended in over 40 years; he considers his need to return to a sikhism; pt tells about improving and is not having any other concerns at this time; pt is open to further visits by this coffee blender
[2017-08-11 16:56] LABS: Bedside Glucose 161 mg/dL (70-110)
[2017-08-11 20:56] LABS: Bedside Glucose 221 mg/dL (70-110)
[2017-08-11] MEDS: NYSTATIN 500,000 UNIT/5 ML UDC 500000 UNIT PO (22:00)
[2017-08-11] MEDS: Atorvastatin Calcium 40 MG Tablet PO (22:00)
--- NOTE | 2017-08-12 02:08 | NURSING ---
Pt remains in modified contact precautions for MRSA in urine.
[2017-08-12 02:16] LABS: Bedside Glucose 136 mg/dL (70-110)
[2017-08-12 06:32] LABS: International Normalized Ratio 1.3; Prothrombin Time (Protime)PT. 15.9 SECONDS (11.7-14.9)
[2017-08-12] MEDS: Menthol/Lanolin/Calamine/Znox 113 GM Tube 1 APPLIC TOPICAL ×3 (06:33→20:57)
[2017-08-12 06:46] LABS: Bedside Glucose 158 mg/dL (70-110)
[2017-08-12] MEDS: Polyethylene Glycol 3350 17 GM PACKET 34 GM PO (07:00)
[2017-08-12] MEDS: Nystatin Powder 15gm Bottle 1 APPLIC TOPICAL ×2 (07:00→17:19)
[2017-08-12] MEDS: NYSTATIN 500,000 UNIT/5 ML UDC 500000 UNIT PO ×4 (07:01→20:52)
[2017-08-12] MEDS: Enoxaparin 100 MG/ML Syringe 170 MG SC (07:03)
[2017-08-12 07:04] VITALS: BP 148/55; PULSE 71
[2017-08-12] MEDS: Metoprolol(XL)Succ 50 MG Tablet PO (07:04)
[2017-08-12] MEDS: Senna/Docusate Sodium 1 Tablet 2 TABLET PO (07:06)
[2017-08-12] MEDS: Tamsulosin HCl 0.4 MG Capsule PO (07:07)
[2017-08-12] MEDS: Doxycycline 100 MG CAPSULE PO ×2 (07:07→17:14)
[2017-08-12] MEDS: Losartan Potassium 100 MG Tablet PO (07:07)
[2017-08-12] MEDS: Citalopram 40 MG TABLET PO (07:08)
[2017-08-12 08:01] VITALS: O2SAT 94
[2017-08-12] MEDS: Cyanocobalamin 500 MCG Tablet PO (08:02)
[2017-08-12] MEDS: Omega-3 Acid Ethyl Esters 1 GM Capsule PO (08:02)
--- NOTE | 2017-08-12 08:45 | NURSING ---
INR 1.3 TODAY, NEW ORDER TO DC LOVENOX, INCREASED COUMADIN TO 7MG DAILY.
--- NOTE | 2017-08-12 10:27 | CASEMGMT ---
Plan of care meeting held. Resident present, no support person present at this time. Resident plans to discharge home on 08/13/17 to sleep lab and then home with family on 08/14/17. Resident family plans to provide transportation home for resident at time of discharge. Resident reporting to have all needed medical equipment set up within the home and sleep lab will follow resident for setting up needed c-pap/bi-pap. Resident family aware of agreeable to discharge plan. Support given. Proposed discharge date: 08/13/17 PLAN: Discharge home with family. Negar CHAVEZ, SCIENCE INTERPRETER
[2017-08-12 11:16] LABS: Bedside Glucose 228 mg/dL (70-110)
[2017-08-12 15:28] VITALS: BP 165/78; PULSE 69; RESP 16; TEMP 36.8; O2SAT 95
[2017-08-12 16:51] LABS: Bedside Glucose 226 mg/dL (70-110)
[2017-08-12] MEDS: Atorvastatin Calcium 40 MG Tablet PO (20:52)
[2017-08-12 21:11] LABS: Bedside Glucose 271 mg/dL (70-110)
[2017-08-12 23:30] VITALS: PULSE 65; RESP 14; RESP 19; O2SAT 96
[2017-08-13 02:36] LABS: Bedside Glucose 127 mg/dL (70-110)
[2017-08-13 02:45] VITALS: PULSE 62; RESP 14; RESP 16; O2SAT 96
[2017-08-13 05:20] VITALS: BP 174/86; PULSE 65
[2017-08-13 05:22] VITALS: BP 174/86; PULSE 65
[2017-08-13] MEDS: Metoprolol(XL)Succ 50 MG Tablet PO (05:22)
[2017-08-13] MEDS: Nystatin Powder 15gm Bottle 1 APPLIC TOPICAL ×2 (05:23→18:15)
[2017-08-13] MEDS: NYSTATIN 500,000 UNIT/5 ML UDC 500000 UNIT PO ×4 (05:23→19:49)
[2017-08-13] MEDS: Tamsulosin HCl 0.4 MG Capsule PO (05:23)
[2017-08-13] MEDS: Citalopram 40 MG TABLET PO (05:24)
[2017-08-13] MEDS: Losartan Potassium 100 MG Tablet PO (05:24)
[2017-08-13] MEDS: Menthol/Lanolin/Calamine/Znox 113 GM Tube 1 APPLIC TOPICAL ×2 (05:24→19:48)
[2017-08-13] MEDS: Doxycycline 100 MG CAPSULE PO ×2 (05:24→17:24)
[2017-08-13 05:59] LABS: International Normalized Ratio 1.4; Prothrombin Time (Protime)PT. 16.3 SECONDS (11.7-14.9)
[2017-08-13 06:41] LABS: Bedside Glucose 187 mg/dL (70-110)
[2017-08-13] MEDS: Cyanocobalamin 500 MCG Tablet PO (07:55)
[2017-08-13] MEDS: Omega-3 Acid Ethyl Esters 1 GM Capsule PO (07:55)
[2017-08-13 08:00] VITALS: PULSE 62; RESP 14; RESP 15; O2SAT 92
[2017-08-13 09:36] VITALS: PULSE 87; RESP 18; O2SAT 94
[2017-08-13 11:06] LABS: Bedside Glucose 261 mg/dL (70-110)
[2017-08-13 15:43] VITALS: BP 181/82; PULSE 51; RESP 18; TEMP 37.1; O2SAT 97
[2017-08-13 16:41] LABS: Bedside Glucose 289 mg/dL (70-110)
[2017-08-13] MEDS: Senna/Docusate Sodium 1 Tablet 2 TABLET PO (17:24)
[2017-08-13] MEDS: Atorvastatin Calcium 40 MG Tablet PO (17:27)
--- NOTE | 2017-08-19 12:54 | MDS.RN ---
Information for the mds was obtained from review of the clinical record, interview of resident, staff, and direct observation of resident's care.
== END 2017-08-13 20:00 | disposition home health service (06) | DRG 689 ==
PROVIDERS: Admitting Provider Family Medicine Geriatric Medicine; Family Provider Family Medicine; PCP Family Medicine; Visit Provider Family Medicine Geriatric Medicine
DX: N30.00 Acute cystitis without hematuria (principal); G93.41 Metabolic encephalopathy; E11.22 Type 2 diabetes mellitus with diabetic chronic kidney disease; E11.649 Type 2 diabetes mellitus with hypoglycemia without coma; Z68.43 Body mass index [BMI] 50.0-59.9, adult; I45.2 Bifascicular block; E11.65 Type 2 diabetes mellitus with hyperglycemia; B95.62 Methicillin resistant Staphylococcus aureus infection as the cause of diseases classified elsewhere; E66.01 Morbid (severe) obesity due to excess calories; B96.20 Unspecified Escherichia coli [E. coli] as the cause of diseases classified elsewhere; J44.9 Chronic obstructive pulmonary disease, unspecified; G47.33 Obstructive sleep apnea (adult) (pediatric); E78.5 Hyperlipidemia, unspecified; F32.9 Major depressive disorder, single episode, unspecified; N40.0 Benign prostatic hyperplasia without lower urinary tract symptoms; B35.4 Tinea corporis; I12.9 Hypertensive chronic kidney disease with stage 1 through stage 4 chronic kidney disease, or unspecified chronic kidney disease; N18.3 Chronic kidney disease, stage 3 (moderate); Z79.899 Other long term (current) drug therapy; Z79.4 Long term (current) use of insulin; Z79.01 Long term (current) use of anticoagulants; Z71.3 Dietary counseling and surveillance; Z91.19 Patient's noncompliance with other medical treatment and regimen; Z86.718 Personal history of other venous thrombosis and embolism; Z86.711 Personal history of pulmonary embolism; Z87.891 Personal history of nicotine dependence
CPT/HCPCS: 36415; 80048; 82962; 85025; 85610; 94003; 94640; 97110; 97116; 97161; 97165; 97530; 97535; 97802; J1610

== ENCOUNTER → 2017-08-13 22:33 | Outpatient (CLI) | payer MEDICARE, OTHER, SELFPAY | PROVIDERS: Family Provider Family Medicine; PCP Family Medicine; Visit Provider Family Medicine | DX: G47.33 Obstructive sleep apnea (adult) (pediatric) (principal) | CPT/HCPCS: 95811 ==

== ENCOUNTER → 2017-09-22 11:07 | Outpatient (CLI) | payer MEDICARE, OTHER, SELFPAY ==
[2017-09-22 11:00] VITALS: PULSE 70; PULSE 73; PULSE 77; PULSE 80; PULSE 83; PULSE 84; PULSE 85; PULSE 86; O2SAT 91; O2SAT 93; O2SAT 94; O2SAT 95; O2SAT 96
--- NOTE | 2017-09-22 14:20 | PCM.PSN.6M ---
PSN 6 Minute Walk Test - 6 Minute Walk Test 6 Minute Walk Test: 6 Minute Walk Test PSN:6-Minute Walk Test Start: 09/22/17 12:18 Freq: Status: Active Protocol: RESP.6MINW Document 09/22/17 11:00 EW (Rec: 09/22/17 12:21 EW [id number]) 6 Minute Walk Test Date Performed 09/22/17 Time Performed 11:00 Height 6 ft Weight: 176.901 kg Weight in Pounds 390.[address]: Aicha Szymanski Assistive device used: None Pre-test Oxygen Delivery Method Room Air Pulse Ox (%) 93 Pulse Rate (60-100 beats/min) 70 Dyspnea Adrian Scale (0-10) 2 Exertion Adrian Scale (6-20) 9 1st minute Oxygen Delivery Method Room Air Pulse Ox (%) 95 Pulse Rate (60-100 beats/min) 73 2nd minute Oxygen Delivery Method Room Air Pulse Ox (%) 91 Pulse Rate (60-100 beats/min) 83 Number of Rests Taken 1 Reported Symptoms Increased Work of Breathing 3rd minute Oxygen Delivery Method Room Air Pulse Ox (%) 93 Pulse Rate (60-100 beats/min) 80 4th minute Oxygen Delivery Method Room Air Pulse Ox (%) 93 Pulse Rate (60-100 beats/min) 85 Number of Rests Taken 1 Reported Symptoms Increased Work of Breathing 5th minute Oxygen Delivery Method Room Air Pulse Ox (%) 94 Pulse Rate (60-100 beats/min) 86 6th minute Oxygen Delivery Method Room Air Pulse Ox (%) 93 Pulse Rate (60-100 beats/min) 84 Number of Rests Taken 1 Reported Symptoms Increased Work of Breathing Post-test Oxygen Delivery Method Room Air Pulse Ox (%) 96 Pulse Rate (60-100 beats/min) 77 Dyspnea Adrian Scale (0-10) 4 Exertion Adrian Scale (6-20) 14 Full Laps Walked 9 Partial Lap, Number of Tiles Walked 0 Total Distance Walked (ft) 531 - Interpretation Interpretation: The patient was able to ambulate only 531 feet over the course of 6 minutes on room air with the assistance of a cane, walker and 3 breaks. The patient did experience desaturation as low as 91%, but improved with breaks. These findings are consistent with a respiratory and musculoskeletal limitation exercise tolerance. - Recommendations Recommendations: Supplemental oxygen is indicated at this time. However, sensitivity for hypoxemia is severely limited secondary to minimal distance traveled. Continue to monitor closely.
--- NOTE | 2017-09-22 14:25 | WT_ITS ---
PSN 6 Minute Walk Test - 6 Minute Walk Test 6 Minute Walk Test: 6 Minute Walk Test PSN:6-Minute Walk Test Start: 09/22/17 12: 18 Freq: Status: Active Protocol: RESP.6MINW Document 09/22/17 11:00 EW (Rec: 09/22/17 12:21 EW [id number]) 6 Minute Walk Test Date Performed 09/22/17 Time Performed 11:00 Height 6 ft Weight: 176.901 kg Weight in Pounds 390.[address]: Aicha Szymanski Assistive device used: None Pre-test Oxygen Delivery Method Room Air Pulse Ox (%) 93 Pulse Rate (60-100 beats/min) 70 Dyspnea Adrian Scale (0-10) 2 Exertion Adrian Scale (6-20) 9 1st minute Oxygen Delivery Method Room Air Pulse Ox (%) 95 Pulse Rate (60-100 beats/min) 73 2nd minute Oxygen Delivery Method Room Air Pulse Ox (%) 91 Pulse Rate (60-100 beats/min) 83 Number of Rests Taken 1 Reported Symptoms Increased Work of Breathing 3rd minute Oxygen Delivery Method Room Air Pulse Ox (%) 93 Pulse Rate (60-100 beats/min) 80 4th minute Oxygen Delivery Method Room Air Pulse Ox (%) 93 Pulse Rate (60-100 beats/min) 85 Number of Rests Taken 1 Reported Symptoms Increased Work of Breathing 5th minute Oxygen Delivery Method Room Air Pulse Ox (%) 94 Pulse Rate (60-100 beats/min) 86 6th minute Oxygen Delivery Method Room Air Pulse Ox (%) 93 Pulse Rate (60-100 beats/min) 84 Number of Rests Taken 1 Reported Symptoms Increased Work of Breathing Post-test Oxygen Delivery Method Room Air Pulse Ox (%) 96 Pulse Rate (60-100 beats/min) 77 Dyspnea Adrian Scale (0-10) 4 Exertion Adrian Scale (6-20) 14 Full Laps Walked 9 Partial Lap, Number of Tiles Walked 0 Total Distance Walked (ft) 531 - Interpretation Interpretation: The patient was able to ambulate only 531 feet over the course of 6 minutes on room air with the assistance of a cane, walker and 3 breaks. The patient did experience desaturation as low as 91%, but improved with breaks. These findings are consistent with a respiratory and musculoskeletal limitation exercise tolerance. - Recommendations Recommendations: Supplemental oxygen is indicated at this time. However, sensitivity for hypoxemia is severely limited secondary to minimal distance traveled. Continue to monitor closely.
== END ==
PROVIDERS: Family Provider Family Medicine; PCP Family Medicine; Visit Provider Nurse Practitioner Acute Care
DX: J44.9 Chronic obstructive pulmonary disease, unspecified (principal)
CPT/HCPCS: 94618

== ENCOUNTER → 2017-10-08 10:10 | Outpatient (CLI) | payer MEDICARE, OTHER, SELFPAY ==
--- NOTE | 2017-10-08 14:01 | PFTCOMP_ITS ---
COMPLETE PULMONARY FUNCTION TEST INTERPRETATION Brief HPI: Patient is a 76 year old male, currently under the care of Aicha Szymanski, who presents to [facility] for complete pulmonary function tests secondary to diagnosis of COPD. Respiratory therapist reports good effort and reproducible results. Interpretation: Forced expiration spirometry shows no large airways obstructive ventilatory defect with an FEV1 of 85% predicted. There is no significant bronchodilator response by strict ATS criteria. Spirograms are of good quality and plateau slowly, indicating slowly emptying areas of the lungs. The respiratory flow volume loop shows a normal pattern. Lung volumes by body plethysmography show a decreased total lung capacity at 5.51 L, 80% predicted. All other lung volumes are reduced symmetrically. Diffusion capacity by carbon monoxide is decreased at 59% predicted. The airway resistance is normal. No previous pulmonary function tests were available for review. Impression: Mild restrictive ventilatory defect with a symmetric reduction diffusing capacity consistent with possible interstitial lung disease.
== END ==
PROVIDERS: Family Provider Family Medicine; PCP Family Medicine; Visit Provider Nurse Practitioner Acute Care
DX: J44.9 Chronic obstructive pulmonary disease, unspecified (principal)
CPT/HCPCS: 94060; 94726; 94729

== ENCOUNTER 2017-11-05 01:37 | Emergency (ER) | payer MEDICARE, OTHER, SELFPAY ==
[2017-11-05] VITALS (8 sets, daily range): BP systolic 108–183; BP diastolic 54–104; PULSE 38–60; RESP 13–18; TEMP 37–37.1; O2SAT 94–95; BMI 53.4
--- NOTE | 2017-11-05 01:48 | ED.RN ---
pt verbally confirmed the medications he could remember, other medications left on file but not updated because pt could not recall if he was taking them, or the doses of the medication.
--- NOTE | 2017-11-05 01:57 | RAD_ITS ---
STUDY: X-RAY CHEST REASON FOR EXAM: Male, 76 years old. intermittent today chest pain, constant for the last hour. radiates to right ear, and right arm TECHNIQUE: Single AP portable view of the chest. COMPARISON: 05/29/2015 FINDINGS: The lungs are clear and expanded. There is no demonstrated pleural abnormality. There is mild cardiac enlargement. Normal mediastinum and denys. Normal visualized pulmonary arteries. There is atherosclerotic tortuosity of the aortic arch and descending thoracic aorta. Normal visualized thoracic spine. Normal visualized ribs, clavicles, and shoulders. There is a chest wall lesion on the right side appears stable when compared to the previous study measures 2.5 cm most likely represent a benign mass. There is no demonstrated abnormality of the visualized soft tissue structures of the upper abdomen. RAD/Chest 1 View (Portable) IMPRESSION: Mild cardiomegaly. Electronically Signed: Lisset Lees MD at 2:37 EDT Tel , Service support ,
--- NOTE | 2017-11-05 01:57 | EKG12_ITS ---
Test Reason : CP Blood Pressure : / mmHG Vent. Rate : 046 BPM Atrial Rate : 046 BPM P-R Int : 250 ms QRS Dur : 160 ms QT Int : 482 ms P-R-T Axes : 067 -65 006 degrees QTc Int : 421 ms Sinus bradycardia with sinus arrhythmia with 1st degree A-V block Left axis deviation Right bundle branch block Inferior infarct , age undetermined Abnormal ECG Confirmed by SUMMER RAZO, KARISSA ([id number]), primer expeditor and drier RONEL NAVAS ([id number]) on 11/06/2017 1:48:12 PM Referred By: BRITTNY Confirmed By:KARISSA WHEELER MD
[2017-11-05 02:06] LABS: Absolute Lymphocyte Count 1.16 X10^3/ul (0.83-4.51); Absolute Neutrophil Count 4.8 X10^3/uL (2.0-7.7); Basophil# 0.03 X10^3/uL; Basophil% 0.4 % (0-1); Eosinophils% 2.9 % (0-5); Hematocrit 41.6 % (40-54); Hemoglobin 13.6 g/dl (13.0-16.5); Lymphocyte # 1.16 X10^3/ul (4.0); Mean Corp Hgb Conc 32.7 g/gl (32-36); Mean Corpuscular Hgb 28.5 pg (27.0-32.0); Mean Platelet Vol. 9.2 fl (6.2-12.0); Monocyte# 0.61 X10^3/uL; Monocyte% 8.9 % (0-10); Neutrophil # 4.82 X10^3/uL (2.7-7.7); Neutrophil % 70.5 % (47-70); POSITIVE COUNT NO; POSITIVE DIFFERENTIAL NO; POSITIVE MORPHOLOGY NO; Platelet Count 219 K/mm3 (150-450); RBC Distribution Width CV 13.2 % (11.6-14.6); RBC Distribution Width SD 42.3 fl (35.1-43.9); Red Blood Count 4.78 M/mm3 (4.6-6.2); White Blood Count 6.8 K/mm3 (4.4-11.0)
[2017-11-05] MEDS: Aspirin 81 MG TAB.CHEW 324 MG PO (02:17)
[2017-11-05] MEDS: 0.9% Normal Saline 1,000 ML 150 ML IV (02:17)
[2017-11-05 02:23] LABS: Anion Gap 9 (5-15); BUN 27 mg/dL (7-18); BUN/Creat Ratio 14.4 RATIO (10-20); Calcium,Total 8.8 mg/dL (8.5-10.1); Chloride 102 mmol/L (98-107); Creatinine, Serum 1.88 mg/dL (0.70-1.30); EST Glomerular Filtration Rate 37 mL/min (>60); Est Glom Filt Rate - Afr Amer 45 mL/min (>60); Estimated Creatinine Clearance 36.69 ml/min; Glucose 326 mg/dL (74-106); Potassium 4.2 mmol/L (3.5-5.1); Sodium Level 135 mmol/L (136-145)
--- NOTE | 2017-11-05 05:25 | PCM.DC ---
You will use the following diet at home:: Calorie/Carbohydrate Controlled (specify 1200, 1400, etc) - 1800 Your food should be the consistency of: Regular Your liquids should be the consistency of: Regular/Thin Discharge Activity: Return to Normal Activity Call your doctor if you observe: Fever of 101 or Higher, Shortness of breath, Chest pain Allergies/Adverse Reactions: Allergies MARGIE Inhibitors Allergy (Unknown, Verified 11/05/17 01:37) Unknown cefepime Allergy (Verified 11/05/17 01:37) Other WEAKNESS & FALLING ipodate [Ipodate] Allergy (Verified 11/05/17 01:37) Shortness of breath levofloxacin [Levofloxacin] Allergy (Verified 11/05/17 01:37) Anaphylaxis lisinopril Allergy (Verified 11/05/17 01:37) Shortness of breath ofloxacin Allergy (Verified 11/05/17 01:37) Unknown Quinolones Allergy (Verified 11/05/17 01:37) Anaphylaxis Medications to take at Discharge Atorvastatin Calcium [Lipitor] 40 mg PO QHS 05/29/15 Citalopram [Celexa] 40 mg PO DAILY 05/29/15 Fluticasone 0.05% [Flonase Nasal [place]] 1 spray NASAL BID PRN 05/29/15 Tamsulosin HCl [Flomax] 0.4 mg PO DAILY 07/08/16 Metoprolol Succinate 100 mg PO DAILY 02/08/17 Losartan Potassium [Cozaar] 100 mg PO DAILY 07/24/17 Nystatin Powder [Mycostatin Powder] 1 applic TOPICAL BID 08/06/17 Albuterol Inhaler [Ventolin Hfa] 2 puff INHALATION Q6HWA.RT #1 inhaler 08/11/17 Insulin Aspart [Novolog Flexpen] 13 units SC TIDAC #1 flexpen 08/11/17 Insulin Detemir [Levemir FlexPen] 20 units SC BID #1 insuln.pen 08/11/17 Menthol/Lanolin/Calamine/Znox [Calmoseptine Ointment] 1 applic TOPICAL TID tube 08/11/17 Metoprolol(XL)Succ [Toprol Xl (Beta Luna)] 50 mg PO DAILY #30 tab 08/11/17 Mineral Oil/Petrolatum,White [Eucerin] 1 applic TOPICAL BID@0600,2200 jar 08/11/17 Warfarin [Coumadin] 6 mg PO DAILY@1700 #30 tab 08/11/17 Primary Care Physician: Wili Nelson DO [Primary Care Provider] - Please follow up with your Primary Care Physician in: 1-2 weeks Proposed Discharge Date: 11/05/17
--- NOTE | 2017-11-05 05:28 | DCINST_ITS ---
You will use the following diet at home:: Calorie/Carbohydrate Controlled ( specify 1200, 1400, etc) - 1800 Your food should be the consistency of: Regular Your liquids should be the consistency of: Regular/Thin Discharge Activity: Return to Normal Activity Call your doctor if you observe: Fever of 101 or Higher, Shortness of breath, Chest pain Allergies/Adverse Reactions: Allergies MARGIE Inhibitors Allergy (Unknown, Verified 11/05/17 01:37) Unknown cefepime Allergy (Verified 11/05/17 01:37) Other WEAKNESS & FALLING ipodate [Ipodate] Allergy (Verified 11/05/17 01:37) Shortness of breath levofloxacin [Levofloxacin] Allergy (Verified 11/05/17 01:37) Anaphylaxis lisinopril Allergy (Verified 11/05/17 01:37) Shortness of breath ofloxacin Allergy (Verified 11/05/17 01:37) Unknown Quinolones Allergy (Verified 11/05/17 01:37) Anaphylaxis Medications to take at Discharge Atorvastatin Calcium [Lipitor] 40 mg PO QHS 05/29/15 Citalopram [Celexa] 40 mg PO DAILY 05/29/15 Fluticasone 0.05% [Flonase Nasal [place]] 1 spray NASAL BID PRN 05/29/15 Tamsulosin HCl [Flomax] 0.4 mg PO DAILY 07/08/16 Metoprolol Succinate 100 mg PO DAILY 02/08/17 Losartan Potassium [Cozaar] 100 mg PO DAILY 07/24/17 Nystatin Powder [Mycostatin Powder] 1 applic TOPICAL BID 08/06/17 Albuterol Inhaler [Ventolin Hfa] 2 puff INHALATION Q6HWA.RT #1 inhaler 08/11/17 Insulin Aspart [Novolog Flexpen] 13 units SC TIDAC #1 flexpen 08/11/17 Insulin Detemir [Levemir FlexPen] 20 units SC BID #1 insuln.pen 08/11/17 Menthol/Lanolin/Calamine/Znox [Calmoseptine Ointment] 1 applic TOPICAL TID tube 08/11/17 Metoprolol(XL)Succ [Toprol Xl (Beta Luna)] 50 mg PO DAILY #30 tab 08/11/17 Mineral Oil/Petrolatum,White [Eucerin] 1 applic TOPICAL BID@0600,2200 jar 08/11 Warfarin [Coumadin] 6 mg PO DAILY@1700 #30 tab 08/11/17 Primary Care Physician: Wili Nelson DO [Primary Care Provider] - Please follow up with your Primary Care Physician in: 1-2 weeks Proposed Discharge Date: 11/05/17
--- NOTE | 2017-11-05 05:30 | ED.VISSUMM ---
- ER Visit Summary Date of Service: 11/05/17 Chief Complaint: [Right shoulder and neck pain.] History of Present Illness: The patient is a 76 M [presents to the emergency department with 3 hour history of pain in his right shoulder and neck. Patient denies any trauma. Patient describes the pain as a dull ache and rates it a about a 5 or 6 out of 10. Patient is never had discomfort like this before. Patient denies any pain in his chest. He denies any shortness of breath. Patient's had some mild nausea but no vomiting. He denies recent travel or surgery. Patient has a history of COPD, diabetes, hypertension, obesity, depression, DVT, chronic kidney disease. Patient tells me his last stress test was 6-9 months ago and was unremarkable. Patient has no coronary artery disease history.] Physical Examination: [HEENT-PERRLA, EOMI. Cranial nerves II through XII grossly intact. TMs clear. Mucous membranes moist. No adenopathy. No C-spine tenderness on palpation. No tenderness to the right side of the neck on palpation. No bruits auscultated. Cardiovascular-regular rate and rhythm without murmur or ectopy Lungs-clear to auscultation, chest wall stable without crepitus or subcu emphysema Abdomen-normoactive bowel sounds, soft, nontender, no rebound or rigidity, no peritoneal signs. Extremities-intact ?4, normal range of motion, normal pulses, atraumatic]. Right shoulder-no tenderness on palpation and he has normal range of motion. Normal pulses in the right upper extremity. Deep tendon reflexes are plus 2 out of 4 bilaterally at the bicep, tricep, and brachioradialis. Test Results: [EKG obtained on arrival showed a sinus bradycardia with a ventricular rate of 46 bpm with first-degree AV block as well as a right bundle branch block. CBC with differential showed a white count of 6.8, hemoglobin 13.6, hematocrit 42, platelets 219. Chemistries unremarkable. BUN was 27 and creatinine was 1.88. Glucose was 326. Troponin was less than 0.015. Chest x-ray showed some cardiomegaly otherwise nothing acute.] Emergency Department Course and Treatment: [Patient received aspirin in the emergency department as well as nitroglycerin sublingual. Patient is not sure if the nitroglycerin helped his discomfort however he states that the pain in his arm is improved.] Treatment Plan: [I discussed case with Dr. Demarcus Hills who evaluated patient in the emergency department. I have concern regarding anginal equivalent being the cause of the patient's pain is at this point I do not have any other explanation for the discomfort. I wanted to admit the patient for cardiac rule out evaluation. Dr. Hills did not feel patient's pain was cardiac and ordered a delta troponin which was normal. Dr. Hills discharge patient to home.] Disposition: [Discharged to home by hospitalist.] Patient advised to return if chest pain, increasing shortness of breath, or condition should worsen in any way. Impression: [Right arm and neck pain-etiology uncertain] This note was generated with [employer] dictation software. It may contain incorrect words, spelling, and punctuation that were not noted in review of the chart prior to signing ED Disposition - Plan for ED Patient: Chief Complaint: Chest Pain Referrals: Wili Nelson DO [Primary Care Provider] -
--- NOTE | 2017-11-05 05:31 | PCM.CONS.GEN ---
Problem List (1) Morbid obesity Status: Chronic (2) COPD (chronic obstructive pulmonary disease) Status: Chronic (3) Type II diabetes mellitus, uncontrolled Status: Chronic Qualifiers: (4) History of depression Status: Chronic (5) History of other venous thrombosis and embolism Status: Chronic (6) HLD (hyperlipidemia) Status: Chronic (7) HTN (hypertension) Status: Chronic (8) NILO (obstructive sleep apnea) Status: Chronic (9) Chronic renal failure, stage 3 (moderate) Status: Chronic (10) Bifascicular bundle branch block Status: Chronic (11) Right arm pain Status: Acute Reason for Consult Date of Consultation: 11/05/17 Reason for Consultation: right arm pain History of Present Illness: The patient is a 76 year old M developed right arm pain while on the computer. Patient described it as going from shoulder all the way down to his fingertips. Nothing made it better nothing made it worse so patient sought attention for it. Incidentally, patient's presented to the hospital with chest pain and underwent a workup for that. Patient himself denied any chest pain whatsoever and denied any other constitutional symptoms. Patient states that he has had intermittent pain like this in his arm before but would go away but this time and has not gone away. [] Past Medical History Past Medical History (Chronic Problems): Chronic Problems (Last Reviewed 09/11/17 @ 11:00 by Aicha Szymanski NP-C) Diabetes mellitus (Chronic) Morbid obesity (Chronic) Depression (Chronic) Chronic kidney disease (Chronic) Kidney stones (Chronic) Colonic polyp (Chronic) Thromboembolism (Chronic) BPH (benign prostatic hyperplasia) (Chronic) Super obesity (Chronic) History of nephrolithiasis (Chronic) Debility (Chronic) Noncompliance (Chronic) with CPAP and follow up and with diet History of kidney stones (Chronic) COPD (chronic obstructive pulmonary disease) (Chronic) Type II diabetes mellitus, uncontrolled (Chronic) History of depression (Chronic) History of other venous thrombosis and embolism (Chronic) HLD (hyperlipidemia) (Chronic) HTN (hypertension) (Chronic) NILO (obstructive sleep apnea) (Chronic) Chronic renal failure, stage 3 (moderate) (Chronic) Bifascicular bundle branch block (Chronic) Colon polyps (Chronic) Family history of colon cancer (Chronic) Allergies MARGIE Inhibitors Allergy (Unknown, Verified 11/05/17 01:37) Unknown cefepime Allergy (Verified 11/05/17 01:37) Other WEAKNESS & FALLING ipodate [Ipodate] Allergy (Verified 11/05/17 01:37) Shortness of breath levofloxacin [Levofloxacin] Allergy (Verified 11/05/17 01:37) Anaphylaxis lisinopril Allergy (Verified 11/05/17 01:37) Shortness of breath ofloxacin Allergy (Verified 11/05/17 01:37) Unknown Quinolones Allergy (Verified 11/05/17 01:37) Anaphylaxis Home Medications: Ambulatory Orders Medication Instructions Recorded Atorvastatin Calcium [Lipitor] 40 mg PO QHS 05/29/15 Citalopram [Celexa] 40 mg PO DAILY 05/29/15 Fluticasone 0.05% [Flonase Nasal 1 spray NASAL BID PRN 05/29/15 [place]] Tamsulosin HCl [Flomax] 0.4 mg PO DAILY 07/08/16 Metoprolol Succinate 100 mg PO DAILY 02/08/17 Losartan Potassium [Cozaar] 100 mg PO DAILY 07/24/17 Nystatin Powder [Mycostatin Powder] 1 applic TOPICAL BID 08/06/17 Albuterol Inhaler [Ventolin Hfa] 2 puff INHALATION Q6HWA.RT #1 08/11/17 inhaler Insulin Aspart [Novolog Flexpen] 13 units SC TIDAC #1 flexpen 08/11/17 Insulin Detemir [Levemir FlexPen] 20 units SC BID #1 insuln.pen 08/11/17 Menthol/Lanolin/Calamine/Znox 1 applic TOPICAL TID tube 08/11/17 [Calmoseptine Ointment] Metoprolol(XL)Succ [Toprol Xl 50 mg PO DAILY #30 tab 08/11/17 (Beta Luna)] Mineral Oil/Petrolatum,White 1 applic TOPICAL BID@0600,2200 jar 08/11/17 [Eucerin] Warfarin [Coumadin] 6 mg PO DAILY@1700 #30 tab 08/11/17 Acetaminophen 1,000 mg PO Q8H PRN #1 tablet 11/05/17 Surgical History: - - Circumcision, excision of kidney stone Psychiatric History: Depression Smoking Status: Never smoker - *Family History Maternal History Items: Cancer - Patient's mother of cancer but he is not sure what kind of cancer. Paternal History Items: Cancer - Father of colon cancer Offspring History Items: - - He has a son who is morbidly obese and suffers from breathing problems and heart problems. Review of Systems Constitutional: Denies: Chills, Fever, Weight Change Eyes: Denies: Blurred vision, Double vision HEENT: Denies: Head Aches, Sinus Congestion, Sinus Drainage Cardiovascular: Reports: Edema. Denies: Chest Pain Respiratory: Denies: Cough, Shortness of breath at rest, Sputum production Gastrointestinal: Denies: Abdominal Pain, Nausea, Vomiting Genitourinary: Denies: Dysuria Musculoskeletal: Reports: Arm Pain - Right arm. Denies: Leg Pain, Muscle pain Skin: Denies: Rash, Wounds Neurological: Reports: Balance problems Psychiatric: Denies: Anxiety, Depression, Homicidal Ideations, Suicidal Ideations Hematologic/ Lymphatic: Reports: Hx of blood clot. Denies: Easy Bruising, Easy Bleeding Patient Problems: Active and Suspected Problems (Last Reviewed 09/11/17 @ 11:00 by Aicha Szymanski, DINKEY DISPATCHER-C) Right arm pain (Acute) - Physical Exam General: Alert, Cooperative, No apparent distress HEENT: Atraumatic, Normocephalic Neck: No Nodes, Thyroid Normal Size and Texture Lungs: Clear to auscultation, Normal air movement, No rhonchi, No wheeze Cardiovascular: Regular rate, Regular Rhythm, Normal S1, Normal S2, No murmurs Abdomen: Bowel Sounds Present, Soft, Non Tender, Non-Distended, No Hepato-splenomegaly Extremities: No Calf Tenderness, Edema Skin: No rashes, No breakdown Musculoskeletal: No Tenderness to Palpation of Joints or Extremities, No Muscle Wasting Neurological: - - Muscle strength is 5 out of 5 in upper extremities bilaterally. Coordination of the upper extremities is intact bilaterally. Sensation is intact in the upper extremities bilaterally. No focal deficits appreciated in the upper extremities. Psych/Mental Status: Normal Affect, Appropriate Vital Signs Temp Pulse Resp BP Pulse Ox 37.1 C 60 18 150/64 H 95 11/05/17 03:06 11/05/17 05:05 11/05/17 05:05 11/05/17 05:05 11/05/17 05:05 Oxygen Flow Rate (L/min) 2 Oxygen Delivery Method Nasal Cannula Weight: 178.9 kg Body Mass Index (BMI) 53.4 Finger Stick Blood Glucose 216 Laboratory Tests Past 24 Hrs 11/05/17 11/05/17 11/05/17 01:40 01:40 04:37 WBC 6.8 RBC 4.78 Hgb 13.6 Hct 41.6 MCV 87.0 MCH 28.5 MCHC 32.7 RDW 13.2 RDW Differential 42.3 Plt Count 219 MPV 9.2 Immature Gran % (Auto) 0.300 Neut % (Auto) 70.5 H Lymph % (Auto) 17.0 L [place] % (Auto) 8.9 Eos % (Auto) 2.9 Baso % (Auto) 0.4 Absolute Neuts (auto) 4.8 Absolute Lymphs (auto) 1.16 Total Counted Not Reportable Sodium 135 L Potassium 4.2 Chloride 102 Carbon Dioxide 24.0 Anion Gap 9 BUN 27 H Creatinine 1.88 H Estim Creat Clear Calc 36.69 Est GFR (MDRD) Af Amer 45 L Est GFR (MDRD) Non-Af 37 L BUN/Creatinine Ratio 14.4 Glucose 326 H Calcium 8.8 Troponin I < 0.015 < 0.015 Clinical Impression(s) from Imaging Studies Chest X-Ray 11/05/17 01:57 IMPRESSION: Mild cardiomegaly. Electronically Signed: Lisset Lees MD at 2:37 EDT Tel , Service support , EKG showed right bundle branch block which is unchanged from previous. Assessment/Plan Active and Suspected Problems (Last Reviewed 09/11/17 @ 11:00 by Aicha Szymanski NP-C) Right arm pain (Acute) 1. Right arm pain No clinical abnormalities that I can identify in regards to causing his arm pain. I do not feel this is cardiac equivalent. Incidentally patient came in with his who was admitted with chest pain. The patient himself adamantly denied any chest pain when I asked him and I asked him twice. Recommend Tylenol for pain Patient has no neurologic deficits that I can appreciate to explain his symptomatology Would recommend patient follow-up with his primary care physician within the next week or 2 for further evaluation. I have taken the liberty of doing the patient's discharge paperwork from the emergency room Code Visit Office Visits / Consults: [id number] OP Consult L3
--- NOTE | 2017-11-05 05:37 | CON.PCM_ITS ---
Problem List (1) Morbid obesity Status: Chronic (2) COPD (chronic obstructive pulmonary disease) Status: Chronic (3) Type II diabetes mellitus, uncontrolled Status: Chronic Qualifiers: (4) History of depression Status: Chronic (5) History of other venous thrombosis and embolism Status: Chronic (6) HLD (hyperlipidemia) Status: Chronic (7) HTN (hypertension) Status: Chronic (8) NILO (obstructive sleep apnea) Status: Chronic (9) Chronic renal failure, stage 3 (moderate) Status: Chronic (10) Bifascicular bundle branch block Status: Chronic (11) Right arm pain Status: Acute Reason for Consult Date of Consultation: 11/05/17 Reason for Consultation: right arm pain History of Present Illness: The patient is a 76 year old M developed right arm pain while on the computer. Patient described it as going from shoulder all the way down to his fingertips. Nothing made it better nothing made it worse so patient sought attention for it. Incidentally, patient's presented to the hospital with chest pain and underwent a workup for that. Patient himself denied any chest pain whatsoever and denied any other constitutional symptoms. Patient states that he has had intermittent pain like this in his arm before but would go away but this time and has not gone away. [] Past Medical History Past Medical History (Chronic Problems): Chronic Problems (Last Reviewed 09/11/17 @ 11:00 by Aicha Szymanski NP-C) Diabetes mellitus (Chronic) Morbid obesity (Chronic) Depression (Chronic) Chronic kidney disease (Chronic) Kidney stones (Chronic) Colonic polyp (Chronic) Thromboembolism (Chronic) BPH (benign prostatic hyperplasia) (Chronic) Super obesity (Chronic) History of nephrolithiasis (Chronic) Debility (Chronic) Noncompliance (Chronic) with CPAP and follow up and with diet History of kidney stones (Chronic) COPD (chronic obstructive pulmonary disease) (Chronic) Type II diabetes mellitus, uncontrolled (Chronic) History of depression (Chronic) History of other venous thrombosis and embolism (Chronic) HLD (hyperlipidemia) (Chronic) HTN (hypertension) (Chronic) NILO (obstructive sleep apnea) (Chronic) Chronic renal failure, stage 3 (moderate) (Chronic) Bifascicular bundle branch block (Chronic) Colon polyps (Chronic) Family history of colon cancer (Chronic) Allergies MARGIE Inhibitors Allergy (Unknown, Verified 11/05/17 01:37) Unknown cefepime Allergy (Verified 11/05/17 01:37) Other WEAKNESS & FALLING ipodate [Ipodate] Allergy (Verified 11/05/17 01:37) Shortness of breath levofloxacin [Levofloxacin] Allergy (Verified 11/05/17 01:37) Anaphylaxis lisinopril Allergy (Verified 11/05/17 01:37) Shortness of breath ofloxacin Allergy (Verified 11/05/17 01:37) Unknown Quinolones Allergy (Verified 11/05/17 01:37) Anaphylaxis Home Medications: Ambulatory Orders Medication Instructions Recorded Atorvastatin Calcium [Lipitor] 40 mg PO QHS 05/29/15 Citalopram [Celexa] 40 mg PO DAILY 05/29/15 Fluticasone 0.05% [Flonase Nasal 1 spray NASAL BID PRN 05/29/15 [place]] Tamsulosin HCl [Flomax] 0.4 mg PO DAILY 07/08/16 Metoprolol Succinate 100 mg PO DAILY 02/08/17 Losartan Potassium [Cozaar] 100 mg PO DAILY 07/24/17 Nystatin Powder [Mycostatin Powder] 1 applic TOPICAL BID 08/06/17 Albuterol Inhaler [Ventolin Hfa] 2 puff INHALATION Q6HWA.RT #1 08/11/17 inhaler Insulin Aspart [Novolog Flexpen] 13 units SC TIDAC #1 flexpen 08/11/17 Insulin Detemir [Levemir FlexPen] 20 units SC BID #1 insuln.pen 08/11/17 Menthol/Lanolin/Calamine/Znox 1 applic TOPICAL TID tube 08/11/17 [Calmoseptine Ointment] Metoprolol(XL)Succ [Toprol Xl 50 mg PO DAILY #30 tab 08/11/17 (Beta Luna)] Mineral Oil/Petrolatum,White 1 applic TOPICAL BID@0600,2200 jar 08/11/17 [Eucerin] Warfarin [Coumadin] 6 mg PO DAILY@1700 #30 tab 08/11/17 Acetaminophen 1,000 mg PO Q8H PRN #1 tablet 11/05/17 Surgical History: - - Circumcision, excision of kidney stone Psychiatric History: Depression Smoking Status: Never smoker - *Family History Maternal History Items: Cancer - Patient's mother of cancer but he is not sure what kind of cancer. Paternal History Items: Cancer - Father of colon cancer Offspring History Items: - - He has a son who is morbidly obese and suffers from breathing problems and heart problems. Review of Systems Constitutional: Denies: Chills, Fever, Weight Change Eyes: Denies: Blurred vision, Double vision HEENT: Denies: Head Aches, Sinus Congestion, Sinus Drainage Cardiovascular: Reports: Edema. Denies: Chest Pain Respiratory: Denies: Cough, Shortness of breath at rest, Sputum production Gastrointestinal: Denies: Abdominal Pain, Nausea, Vomiting Genitourinary: Denies: Dysuria Musculoskeletal: Reports: Arm Pain - Right arm. Denies: Leg Pain, Muscle pain Skin: Denies: Rash, Wounds Neurological: Reports: Balance problems Psychiatric: Denies: Anxiety, Depression, Homicidal Ideations, Suicidal Ideations Hematologic/ Lymphatic: Reports: Hx of blood clot. Denies: Easy Bruising, Easy Bleeding Patient Problems: Active and Suspected Problems (Last Reviewed 09/11/17 @ 11:00 by Aihca Szymanski, STRIPPING SHOVEL OPERATOR-C) Right arm pain (Acute) - Physical Exam General: Alert, Cooperative, No apparent distress HEENT: Atraumatic, Normocephalic Neck: No Nodes, Thyroid Normal Size and Texture Lungs: Clear to auscultation, Normal air movement, No rhonchi, No wheeze Cardiovascular: Regular rate, Regular Rhythm, Normal S1, Normal S2, No murmurs Abdomen: Bowel Sounds Present, Soft, Non Tender, Non-Distended, No Hepato- splenomegaly Extremities: No Calf Tenderness, Edema Skin: No rashes, No breakdown Musculoskeletal: No Tenderness to Palpation of Joints or Extremities, No Muscle Wasting Neurological: - - Muscle strength is 5 out of 5 in upper extremities bilaterally. Coordination of the upper extremities is intact bilaterally. Sensation is intact in the upper extremities bilaterally. No focal deficits appreciated in the upper extremities. Psych/Mental Status: Normal Affect, Appropriate Vital Signs Temp Pulse Resp BP Pulse Ox 37.1 C 60 18 150/64 H 95 11/05/17 03:06 11/05/17 05:05 11/05/17 05:05 11/05/17 05:05 11/05/17 05:05 Oxygen Flow Rate (L/min) 2 Oxygen Delivery Method Nasal Cannula Weight: 178.9 kg Body Mass Index (BMI) 53.4 Finger Stick Blood Glucose 216 Laboratory Tests Past 24 Hrs 11/05/17 11/05/17 11/05/17 01:40 01:40 04:37 WBC 6.8 RBC 4.78 Hgb 13.6 Hct 41.6 MCV 87.0 MCH 28.5 MCHC 32.7 RDW 13.2 RDW Differential 42.3 Plt Count 219 MPV 9.2 Immature Gran % (Auto) 0.300 Neut % (Auto) 70.5 H Lymph % (Auto) 17.0 L [place] % (Auto) 8.9 Eos % (Auto) 2.9 Baso % (Auto) 0.4 Absolute Neuts (auto) 4.8 Absolute Lymphs (auto) 1.16 Total Counted Not Reportable Sodium 135 L Potassium 4.2 Chloride 102 Carbon Dioxide 24.0 Anion Gap 9 BUN 27 H Creatinine 1.88 H Estim Creat Clear Calc 36.69 Est GFR (MDRD) Af Amer 45 L Est GFR (MDRD) Non-Af 37 L BUN/Creatinine Ratio 14.4 Glucose 326 H Calcium 8.8 Troponin I < 0.015 < 0.015 Clinical Impression(s) from Imaging Studies Chest X-Ray 11/05/17 01:57 IMPRESSION: Mild cardiomegaly. Electronically Signed: Lisset Lees MD at 2:37 EDT Tel , Service support , EKG showed right bundle branch block which is unchanged from previous. Assessment/Plan Active and Suspected Problems (Last Reviewed 09/11/17 @ 11:00 by Aicha Szymanski NP-C) Right arm pain (Acute) 1. Right arm pain * No clinical abnormalities that I can identify in regards to causing his arm pain. * I do not feel this is cardiac equivalent. Incidentally patient came in with his who was admitted with chest pain. The patient himself adamantly denied any chest pain when I asked him and I asked him twice. * Recommend Tylenol for pain * Patient has no neurologic deficits that I can appreciate to explain his symptomatology * Would recommend patient follow-up with his primary care physician within the next week or 2 for further evaluation. * I have taken the liberty of doing the patient's discharge paperwork from the emergency room Code Visit Office Visits / Consults: [id number] OP Consult L3
--- NOTE | 2017-11-05 05:38 | ED.DCSUM_ITS ---
- ER Visit Summary Date of Service: 11/05/17 Chief Complaint: [Right shoulder and neck pain.] History of Present Illness: The patient is a 76 M [presents to the emergency department with 3 hour history of pain in his right shoulder and neck. Patient denies any trauma. Patient describes the pain as a dull ache and rates it a about a 5 or 6 out of 10. Patient is never had discomfort like this before. Patient denies any pain in his chest. He denies any shortness of breath. Patient's had some mild nausea but no vomiting. He denies recent travel or surgery. Patient has a history of COPD, diabetes, hypertension, obesity, depression, DVT, chronic kidney disease. Patient tells me his last stress test was 6-9 months ago and was unremarkable. Patient has no coronary artery disease history.] Physical Examination: [HEENT-PERRLA, EOMI. Cranial nerves II through XII grossly intact. TMs clear. Mucous membranes moist. No adenopathy. No C- spine tenderness on palpation. No tenderness to the right side of the neck on palpation. No bruits auscultated. Cardiovascular-regular rate and rhythm without murmur or ectopy Lungs-clear to auscultation, chest wall stable without crepitus or subcu emphysema Abdomen-normoactive bowel sounds, soft, nontender, no rebound or rigidity, no peritoneal signs. Extremities-intact ?4, normal range of motion, normal pulses, atraumatic]. Right shoulder-no tenderness on palpation and he has normal range of motion. Normal pulses in the right upper extremity. Deep tendon reflexes are plus 2 out of 4 bilaterally at the bicep, tricep, and brachioradialis. Test Results: [EKG obtained on arrival showed a sinus bradycardia with a ventricular rate of 46 bpm with first-degree AV block as well as a right bundle branch block. CBC with differential showed a white count of 6.8, hemoglobin 13.6, hematocrit 42, platelets 219. Chemistries unremarkable. BUN was 27 and creatinine was 1.88. Glucose was 326. Troponin was less than 0.015. Chest x- ray showed some cardiomegaly otherwise nothing acute.] Emergency Department Course and Treatment: [Patient received aspirin in the emergency department as well as nitroglycerin sublingual. Patient is not sure if the nitroglycerin helped his discomfort however he states that the pain in his arm is improved.] Treatment Plan: [I discussed case with Dr. Demarcus Hills who evaluated patient in the emergency department. I have concern regarding anginal equivalent being the cause of the patient's pain is at this point I do not have any other explanation for the discomfort. I wanted to admit the patient for cardiac rule out evaluation. Dr. Hills did not feel patient's pain was cardiac and ordered a delta troponin which was normal. Dr. Hills discharge patient to home.] Disposition: [Discharged to home by hospitalist.] Patient advised to return if chest pain, increasing shortness of breath, or condition should worsen in any way. Impression: [Right arm and neck pain-etiology uncertain] This note was generated with [employer] dictation software. It may contain incorrect words, spelling, and punctuation that were not noted in review of the chart prior to signing ED Disposition - Plan for ED Patient: Chief Complaint: Chest Pain Referrals: Wili Nelson DO [Primary Care Provider] -
== END 2017-11-05 05:37 | disposition home or self-care (01) ==
PROVIDERS: Emergency Provider Emergency Medicine; Family Provider Family Medicine; PCP Family Medicine
DX: M54.2 Cervicalgia (principal); M79.601 Pain in right arm; I44.0 Atrioventricular block, first degree; I45.10 Unspecified right bundle-branch block; I51.7 Cardiomegaly; E11.9 Type 2 diabetes mellitus without complications; I10 Essential (primary) hypertension; J44.9 Chronic obstructive pulmonary disease, unspecified; Z79.01 Long term (current) use of anticoagulants; Z79.4 Long term (current) use of insulin; Z86.718 Personal history of other venous thrombosis and embolism
CPT/HCPCS: 71045; 80048; 84484; 85025; 93005; 99285; J7030; A4216

== ENCOUNTER 2017-11-14 12:32 | Inpatient (IN) | payer MEDICARE, OTHER, SELFPAY ==
[2017-11-14] VITALS (8 sets, daily range): BP systolic 152–198; BP diastolic 73–101; PULSE 58–79; RESP 16–22; TEMP 36.6–36.8; O2SAT 93–97; BMI 53.4; BMI 53.0
--- NOTE | 2017-11-14 12:54 | EKG12_ITS ---
Test Reason : Blood Pressure : / mmHG Vent. Rate : 069 BPM Atrial Rate : 069 BPM P-R Int : 258 ms QRS Dur : 158 ms QT Int : 444 ms P-R-T Axes : 071 -73 021 degrees QTc Int : 475 ms Sinus rhythm with 1st degree A-V block Left axis deviation Right bundle branch block Lateral infarct , age undetermined Inferior infarct , age undetermined Abnormal ECG Confirmed by AI RAZO, BUSHRA ([id number]), editor publications RONEL NAVAS ([id number]) on 11/18/2017 2:20:07 PM Referred By: JOYCE Confirmed By:BUSHRA CLOUD MD
--- NOTE | 2017-11-14 12:55 | ED.VISSUMM ---
- ER Visit Summary Date of Service: 11/14/17 Chief Complaint: [] Hematuria recent change to Coumadin dose History of Present Illness: The patient is a 76 M [] he has history of PE many many years ago, COPD diabetes,, frequent UTIs, urinary retention, chronic leg edema, chronic weakness, all of these conditions have been stable he recently 1 week ago had his INR checked was low and his Coumadin dose was increased the family is not sure what the current doses as the patient usually manages that they indicate that this morning he seemed to have hematuria and he was brought in for evaluation She indicates she is having no pain in any part of his body he is having no dysuria no abdominal pain he indicates he is able to void urine now with no hematuria, he has seen Dr. Berry of urology in the past and from his history he apparently has some issues related to urinary retention and frequent UTIs No change in his chronic shortness of breath or chronic fatigue state he states he feels fine to be at home he only came in because of the hematuria Physical Examination: [] Is a large gentleman with a BMI of about 55 he is awake and alert he is in no distress he has diminished lung sounds and heart tones are distant the abdomen is very obese but soft and nontender the exam shows normal male genitalia with non-tenderness the diaper he is wearing it does appear to have some red blood the penile meatus is not tender he did void spontaneously about 300 cc of urine appears concentrated but not obviously bloody his backs unremarkable his upper lower extremities reveal 4+ edema that is not new neurologically he is awake alert moving all 4 at his baseline Test Results: [] Emergency Department Course and Treatment: [] Patient's urine shows signs of UTI, his INR is 5, the rest of his labs are generally unremarkable as is a chest x-ray he has a history apparently of resistant UTIs I spoke with the hospitalist to review his records they will determine the appropriate antibiotics and they will arrange for admission further management is not sure of his current Coumadin dose she believes it is 2- 10 mg tablets a day to something the admission team will review with patient and Treatment Plan: [] Disposition: [] Stable Impression: [] Coumadin toxicity, hematuria, UTI generalized weakness COPD This note was generated with [employer] software. It may contain incorrect words, spelling, and punctuation that were not noted in review of the chart prior to signing ED Disposition - Plan for ED Patient: Chief Complaint: Complaint Referrals: Wili Nelson DO [Primary Care Provider] -
--- NOTE | 2017-11-14 12:58 | ED.DCSUM_ITS ---
- ER Visit Summary Date of Service: 11/14/17 Chief Complaint: [] Hematuria recent change to Coumadin dose History of Present Illness: The patient is a 76 M [] he has history of PE many many years ago, COPD diabetes,, frequent UTIs, urinary retention, chronic leg edema, chronic weakness, all of these conditions have been stable he recently 1 week ago had his INR checked was low and his Coumadin dose was increased the family is not sure what the current doses as the patient usually manages that they indicate that this morning he seemed to have hematuria and he was brought in for evaluation She indicates she is having no pain in any part of his body he is having no dysuria no abdominal pain he indicates he is able to void urine now with no hematuria, he has seen Dr. Berry of urology in the past and from his history he apparently has some issues related to urinary retention and frequent UTIs No change in his chronic shortness of breath or chronic fatigue state he states he feels fine to be at home he only came in because of the hematuria Physical Examination: [] Is a large gentleman with a BMI of about 55 he is awake and alert he is in no distress he has diminished lung sounds and heart tones are distant the abdomen is very obese but soft and nontender the exam shows normal male genitalia with non-tenderness the diaper he is wearing it does appear to have some red blood the penile meatus is not tender he did void spontaneously about 300 cc of urine appears concentrated but not obviously bloody his backs unremarkable his upper lower extremities reveal 4+ edema that is not new neurologically he is awake alert moving all 4 at his baseline Test Results: [] Emergency Department Course and Treatment: [] Patient's urine shows signs of UTI , his INR is 5, the rest of his labs are generally unremarkable as is a chest x- ray he has a history apparently of resistant UTIs I spoke with the hospitalist to review his records they will determine the appropriate antibiotics and they will arrange for admission further management is not sure of his current Coumadin dose she believes it is 2- 10 mg tablets a day to something the admission team will review with patient and Treatment Plan: [] Disposition: [] Stable Impression: [] Coumadin toxicity, hematuria, UTI generalized weakness COPD This note was generated with [employer] software. It may contain incorrect words, spelling, and punctuation that were not noted in review of the chart prior to signing ED Disposition - Plan for ED Patient: Chief Complaint: Complaint Referrals: Wili Nelson DO [Primary Care Provider] -
--- NOTE | 2017-11-14 13:07 | RAD_ITS ---
STUDY: X-RAY CHEST REASON FOR EXAM: Male, 76 years old. Increased shortness of breath TECHNIQUE: The chest was obtained COMPARISON: November 05, 2017 chest radiograph FINDINGS: Mild cardiomegaly aortic tortuosity. No lung consolidation or pneumothorax. Osseous structures demonstrate no acute abnormalities. No pleural effusion. Pleural-based opacity along the periphery of the right lung noted which appears stable since May 29, 2015 IMPRESSION: Redemonstration of cardiomegaly. No focal airspace consolidation. Electronically Signed: Antony Layne, at 13:30 EDT Tel , Service support , RAD/Chest 1 View (Portable)
[2017-11-14 13:16] LABS: Absolute Lymphocyte Count 1.08 X10^3/ul (0.83-4.51); Absolute Neutrophil Count 4.1 X10^3/uL (2.0-7.7); Basophil# 0.02 X10^3/uL; Basophil% 0.3 % (0-1); Eosinophil# 0.16 X10^3/uL; Eosinophils% 2.7 % (0-5); Hematocrit 38.7 % (40-54); Hemoglobin 12.6 g/dl (13.0-16.5); Lymphocyte # 1.08 X10^3/ul (4.0); Lymphocyte % 18.2 % (19-41); Mean Corp Hgb Conc 32.6 g/gl (32-36); Mean Platelet Vol. 9.2 fl (6.2-12.0); Monocyte# 0.53 X10^3/uL; Monocyte% 8.9 % (0-10); Neutrophil # 4.14 X10^3/uL (2.7-7.7); Neutrophil % 69.6 % (47-70); POSITIVE COUNT NO; POSITIVE DIFFERENTIAL NO; POSITIVE MORPHOLOGY NO; Platelet Count 209 K/mm3 (150-450); RBC Distribution Width CV 13.4 % (11.6-14.6); RBC Distribution Width SD 42.2 fl (35.1-43.9)
[2017-11-14 13:24] LABS: Prothrombin Time (Protime)PT. 46.2 SECONDS (11.7-14.9)
[2017-11-14 13:33] LABS: Anion Gap 7 (5-15); BUN 19 mg/dL (7-18); BUN/Creat Ratio 12.2 RATIO (10-20); Calcium,Total 8.4 mg/dL (8.5-10.1); Chloride 106 mmol/L (98-107); Creatinine, Serum 1.56 mg/dL (0.70-1.30); EST Glomerular Filtration Rate 46 mL/min (>60); Est Glom Filt Rate - Afr Amer 56 mL/min (>60); Estimated Creatinine Clearance 44.22 ml/min; Glucose 245 mg/dL (74-106); Potassium 4.3 mmol/L (3.5-5.1); Sodium Level 137 mmol/L (136-145)
[2017-11-14 13:44] LABS: International Normalized Ratio 4.9
--- NOTE | 2017-11-14 13:45 | ED.RN ---
DR GRIMES NOTIFIED OF INR RESULTS
[2017-11-14 13:49] LABS: BNP,B-Type NATRIURETIC PEPTIDE 22.9 pg/mL (0-100)
[2017-11-14 14:53] LABS: Bacteria 0 SEEN /hpf (None Seen); Mucous, Urine 0 SEEN /hpf (<or=2+); Squamous Epithelial Cells - UA 0 SEEN /hpf (0-5)
[2017-11-14 15:09] LABS: Color, Urine Red (Yellow); Glucose, Dipstick 250 mg/dl (Normal); Ketone-Dipstick 5 mg/dl (Negative); Leukocyte Esterase-Dipstick 500 /ul (Negative); Nitrite-Dipstick Negative (Negative); Occult Blood-Urine 250 /ul (Negative); Protein-Dipstick 100 mg/dl (Negative); Specific Gravity, Urine 1.015 (1.002-1.030); Urine Bilirubin Dipstick Negative (Negative); Urine Clarity Cloudy (Clear); Urine Urobilinogen Normal (Normal)
[2017-11-14 15:27] LABS: Red Blood Cells-Urine > 100 SEEN /hpf (0-5); White Blood Cells >100 SEEN /hpf (0-5)
[2017-11-14 15:28] LABS: Yeast-Urine RARE /hpf (None Seen)
--- NOTE | 2017-11-14 16:08 | HP.PCM_ITS ---
Problem List (1) Thromboembolism Status: Chronic (2) MRSA (methicillin resistant staph aureus) culture positive Status: Resolved (3) BPH (benign prostatic hyperplasia) Status: Chronic (4) Super obesity Status: Chronic (5) Cystitis Status: Acute (6) Debility Status: Chronic (7) Noncompliance Status: Chronic Comment: with CPAP and follow up and with diet (8) History of kidney stones Status: Resolved (9) COPD (chronic obstructive pulmonary disease) Status: Chronic (10) Type II diabetes mellitus, uncontrolled Status: Chronic Qualifiers: (11) History of depression Status: Chronic (12) History of other venous thrombosis and embolism Status: Chronic (13) HLD (hyperlipidemia) Status: Chronic (14) HTN (hypertension) Status: Chronic (15) NILO (obstructive sleep apnea) Status: Chronic (16) Chronic renal failure, stage 3 (moderate) Status: Chronic (17) Bifascicular bundle branch block Status: Chronic (18) Colon polyps Status: Chronic (19) Family history of colon cancer Status: Chronic History of Present Illness Date of Admission: 11/14/17 Chief Complaint: Hematuria. The patient is a 76 year old M who presents to the emergency room with hematuria for 2 days. Patient states he has had lia red blood with clots in his urine continuously for 2 days. He complains of associated urinary frequency. Denies difficulty voiding, dysuria. Denies fever, chills. Denies flank pain, abdominal pain. Patient states he has had frequent urinary tract infections in the past, most recently in July 2017. He has seen urology, Dr. Bowser in the past. He denies other associated complaints. 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 Past Medical History Past Medical History (Chronic Problems): Chronic Problems (Last Reviewed 09/11/17 @ 11:00 by BETTYE Aguilera) Thromboembolism (Chronic) BPH (benign prostatic hyperplasia) (Chronic) Super obesity (Chronic) Debility (Chronic) Noncompliance (Chronic) with CPAP and follow up and with diet COPD (chronic obstructive pulmonary disease) (Chronic) Type II diabetes mellitus, uncontrolled (Chronic) History of depression (Chronic) History of other venous thrombosis and embolism (Chronic) HLD (hyperlipidemia) (Chronic) HTN (hypertension) (Chronic) NILO (obstructive sleep apnea) (Chronic) Chronic renal failure, stage 3 (moderate) (Chronic) Bifascicular bundle branch block (Chronic) Colon polyps (Chronic) Family history of colon cancer (Chronic) Allergies BRAEDEN Inhibitors Allergy (Unknown, Verified 11/14/17 12:34) Unknown cefepime Allergy (Verified 11/14/17 12:34) Other WEAKNESS & FALLING ipodate [Ipodate] Allergy (Verified 11/14/17 12:34) Shortness of breath levofloxacin [Levofloxacin] Allergy (Verified 11/14/17 12:34) Anaphylaxis lisinopril Allergy (Verified 11/14/17 12:34) Shortness of breath ofloxacin Allergy (Verified 11/14/17 12:34) Unknown Quinolones Allergy (Verified 11/14/17 12:34) Anaphylaxis Home Medications: Ambulatory Orders Medication Instructions Recorded Atorvastatin Calcium [Lipitor] 40 mg PO QHS 05/29/15 Citalopram [Celexa] 40 mg PO DAILY 05/29/15 Fluticasone 0.05% [Flonase Nasal 1 spray NASAL BID PRN 05/29/15 [place]] Tamsulosin HCl [Flomax] 0.4 mg PO DAILY 07/08/16 Metoprolol Succinate 100 mg PO DAILY 02/08/17 Losartan Potassium [Cozaar] 100 mg PO DAILY 07/24/17 Nystatin Powder [Mycostatin Powder] 1 applic TOPICAL BID 08/06/17 Albuterol Inhaler [Ventolin Hfa] 2 puff INHALATION Q6HWA.RT #1 08/11/17 inhaler Insulin Aspart [Novolog Flexpen] 13 units SC TIDAC #1 flexpen 08/11/17 Insulin Detemir [Levemir FlexPen] 20 units SC BID #1 insuln.pen 08/11/17 Menthol/Lanolin/Calamine/Znox 1 applic TOPICAL TID tube 08/11/17 [Calmoseptine Ointment] Metoprolol(XL)Succ [Toprol Xl 50 mg PO DAILY #30 tab 08/11/17 (Beta Luna)] Mineral Oil/Petrolatum,White 1 applic TOPICAL BID@0600,2200 jar 08/11/17 [Eucerin] Warfarin [Coumadin] 6 mg PO DAILY@1700 #30 tab 08/11/17 Acetaminophen 1,000 mg PO Q8H PRN #1 tablet 11/05/17 Surgical History: - - Circumcision, excision of kidney stone Psychiatric History: Depression Lives: With Family Smoking Status: Former smoker Alcohol: None Drugs: None - *Family History Maternal History Items: Cancer - Patient's mother of cancer but he is not sure what kind of cancer. Paternal History Items: Cancer - Father of colon cancer Offspring History Items: - - He has a son who is morbidly obese and suffers from breathing problems and heart problems. Review of Systems Constitutional: Denies: Chills, Fever, Weight Change HEENT: Denies: Head Aches, Sinus Congestion, Sinus Drainage Cardiovascular: Denies: Chest Pain, Palpitations Respiratory: Denies: Cough, Shortness of breath at rest, Sputum production Gastrointestinal: Denies: Abdominal Pain, Nausea, Vomiting Genitourinary: Reports: Frequency, Hematuria. Denies: Dysuria, Hesitancy, Incontinence, Retention Musculoskeletal: Denies: Joint Pain, Joint Tenderness Skin: Denies: Rash, Wounds Neurological: Denies: Numbness, Tingling, Focal weakness Psychiatric: Reports: Depression Hematologic/ Lymphatic: Denies: Easy Bruising, Easy Bleeding VTE Information - Inpt Only VTE Present on Admission: No VTE Mechan Device Prophylaxis: SCD's VTE Pharm Prophylaxis ordered?: No Reason prophylaxis not ordered:: Medical Contraindication - Physical Exam General: Alert, Oriented x3, Cooperative, No apparent distress HEENT: Atraumatic, PERRLA, EOMI, Normocephalic Neck: Supple, No JVD, Negative Carotid Bruits Lungs: Clear to auscultation, Diminished Cardiovascular: Regular rate, Regular Rhythm, Normal S1, Normal S2, No murmurs Abdomen: Bowel Sounds Present, Soft, Non Tender, Non-Distended, Obese Extremities: No clubbing, No cyanosis, Capillary Refill Less than 3 Seconds, Edema - Bilateral lower extremities, chronic Skin: - - Chronic venous stasis dermatitis bilateral lower extremities, yeast appearing rash left underarm and abdominal folds. Musculoskeletal: No Tenderness to Palpation of Joints or Extremities Neurological: Cranial nerves II-XII grossly intact, Neuro grossly intact Psych/Mental Status: Flat Affect Vital Signs Temp Pulse Resp BP Pulse Ox 98.2 F 71 18 184/101 H 93 11/14/17 12:34 11/14/17 12:34 11/14/17 12:34 11/14/17 12:34 11/14/17 12:34 Oxygen Delivery Method Room Air Weight: 178.9 kg Body Mass Index (BMI) 53.4 Finger Stick Blood Glucose 216 Intake and Output for Last 24 Hours 11/12/17 11/13/17 11/14/17 23:59 23:59 23:59 Output Total 250 / 250 Balance -250 / -250 Laboratory Tests Past 24 Hrs 11/14/17 11/14/17 11/14/17 13:10 13:10 13:10 WBC 6.0 RBC 4.50 L Hgb 12.6 L Hct 38.7 L MCV 86.0 MCH 28.0 MCHC 32.6 RDW 13.4 RDW Differential 42.2 Plt Count 209 MPV 9.2 Immature Gran % (Auto) 0.300 Neut % (Auto) 69.6 Lymph % (Auto) 18.2 L [place] % (Auto) 8.9 Eos % (Auto) 2.7 Baso % (Auto) 0.3 Absolute Neuts (auto) 4.1 Absolute Lymphs (auto) 1.08 Total Counted Not Reportable PT 46.2 H INR 4.9 H* Sodium 137 Potassium 4.3 Chloride 106 Carbon Dioxide 24.0 Anion Gap 7 BUN 19 H Creatinine 1.56 H Estim Creat Clear Calc 44.22 Est GFR (MDRD) Af Amer 56 L Est GFR (MDRD) Non-Af 46 L BUN/Creatinine Ratio 12.2 Glucose 245 H Calcium 8.4 L Troponin I < 0.015 B-Natriuretic Peptide Urine Color Urine Clarity Urine pH Ur Specific [place] Urine Protein Urine Glucose (UA) Urine Ketones Urine Occult Blood Urine Nitrite Urine Bilirubin Urine Urobilinogen Ur Leukocyte Esterase Urine RBC Urine WBC Ur Squamous Epith Cells Urine Bacteria Urine Mucus Urine Yeast 11/14/17 11/14/17 13:10 14:44 WBC RBC Hgb Hct MCV MCH MCHC RDW RDW Differential Plt Count MPV Immature Gran % (Auto) Neut % (Auto) Lymph % (Auto) [place] % (Auto) Eos % (Auto) Baso % (Auto) Absolute Neuts (auto) Absolute Lymphs (auto) Total Counted PT INR Sodium Potassium Chloride Carbon Dioxide Anion Gap BUN Creatinine Estim Creat Clear Calc Est GFR (MDRD) Af Amer Est GFR (MDRD) Non-Af BUN/Creatinine Ratio Glucose Calcium Troponin I B-Natriuretic Peptide 22.9 Urine Color Red Urine Clarity Cloudy Urine pH 6.0 Ur Specific [place] 1.015 Urine Protein 100 H Urine Glucose (UA) 250 H Urine Ketones 5 H Urine Occult Blood 250 H Urine Nitrite Negative Urine Bilirubin Negative Urine Urobilinogen Normal Ur Leukocyte Esterase 500 H Urine RBC > 100 SEEN Urine WBC >100 SEEN Ur Squamous Epith Cells 0 SEEN Urine Bacteria 0 SEEN Urine Mucus 0 SEEN Urine Yeast RARE Assessment/Plan 1. Acute cystitis with hematuria-insert Lane with continuous bladder irrigation. Patient has a history of Pseudomonas, MRSA and Streptococcus agalactiae urine culture. Previously seen by infectious disease. Begin oral doxycycline. Consult infectious disease. Consult urology. Urine culture obtained, pending. 2. Supratherapeutic INR-hold Coumadin regimen. 5 mg vitamin K ?1. Repeat INR in a.m. 3. History of DVT/PE-Coumadin regimen on hold secondary to #2. 4. Type 2 diabetes mellitus-ADA diet. Accu-Cheks before meals at bedtime with sliding scale insulin. Continue home insulin regimen as well. Hemoglobin A1c July 2017 8.9%. 5. Hypertension-elevated on admission. Continue home regimen of losartan, metoprolol. Add hydralazine as needed. 6. Hyperlipidemia-continue statin. 7. COPD-no acute exacerbation. Continue albuterol aerosol as needed. 8. Chronic hypoxic respiratory-on home oxygen 2 L nasal canula. Continue supplemental oxygen to maintain O2 at or above 90%. 9. Obstructive sleep apnea- On bipap HS. Non-compliant in past. 10. Chronic kidney disease stage III-baseline creatinine 1.4-1.8. Creatinine admission 1.5. Monitor BMP. 11. History of kidney stones status post lithotripsy 12. Chronic Venous Stasis Dermatitis-[place] wrap bilateral lower extremities. 13. Depression-continue home Celexa regimen. 14. Super Obesity- BMI 53.5. Encourage diet and lifestyle modifications. Nutrition consult. 15. Physical debility-physical therapy recommended fdc placement at previous admission July 2017. Patient uses walker/cane at home with ambulation. PT/OT. 16. BPH-continue home Flomax regimen. 17. Cutaneous candidiasis-topical nystatin 3 times daily. DVT prophylaxis-SCDs, pharmacologic prophylaxis contraindicated due to elevated INR. This patient was seen by BETTYE London under the supervision of Dr. Tavares.
[2017-11-14] MEDS: 0.9% Normal Saline 1,000 ML 75 ML IV (18:01)
[2017-11-14 18:06] LABS: Bedside Glucose 350 mg/dL (70-110)
[2017-11-14] MEDS: Phytonadione (Vit K) 10 MG/ML Ampul 5 MG PO (18:07)
--- NOTE | 2017-11-14 18:57 | NURSING ---
Addendum entered by Soo Ahn 11/14/17 19:00: attempted to call answering service for Dr. King to notify them of consult- notified that they will not accept any consults from [facility] on the weekend and we will need to call on Thursday. Original Note: attempted to page Dr. Bowser at this time. Notified that he is out of town and is only taking calls on his current patients by aden Candelario.
[2017-11-14] MEDS: Insulin Lispro 100 UNIT/ML INSULN.PEN 13 UNIT SC (19:04)
[2017-11-14] MEDS: Insulin Lispro 100 UNIT/ML INSULN.PEN SC ×2 (19:05→22:38)
[2017-11-14] MEDS: Ipratropium/Albuterol Sulfate 3 ML AMPUL.NEB INHALATION (19:06)
[2017-11-14 22:26] LABS: Bedside Glucose 295 mg/dL (70-110)
[2017-11-14] MEDS: hydrALAZINE 20 MG/ML Vial 10 MG IV (22:36)
[2017-11-14] MEDS: Docusate Sodium 100 MG Capsule PO (22:40)
[2017-11-14] MEDS: Atorvastatin Calcium 40 MG Tablet PO (22:41)
[2017-11-14] MEDS: Nystatin Powder 15gm Bottle 1 APPLIC TOPICAL (22:43)
[2017-11-15] VITALS (11 sets, daily range): BP systolic 129–196; BP diastolic 59–96; PULSE 61–80; RESP 18–20; TEMP 36.4–37.1; O2SAT 94–99
[2017-11-15] MEDS: hydrALAZINE 20 MG/ML Vial 10 MG IV (04:11)
[2017-11-15] MEDS: Nystatin Powder 15gm Bottle 1 APPLIC TOPICAL ×3 (06:46→22:03)
[2017-11-15 06:55] LABS: Bedside Glucose 261 mg/dL (70-110)
[2017-11-15] MEDS: Ipratropium/Albuterol Sulfate 3 ML AMPUL.NEB INHALATION ×2 (07:17→19:13)
--- NOTE | 2017-11-15 07:19 | NURSING ---
Dr. Bowser notified of consult, states wants patient to follow up as outpatient.
[2017-11-15 07:30] LABS: Absolute Lymphocyte Count 0.92 X10^3/ul (0.83-4.51); Absolute Neutrophil Count 5.3 X10^3/uL (2.0-7.7); Basophil# 0.02 X10^3/uL; Basophil% 0.3 % (0-1); Eosinophil# 0.18 X10^3/uL; Eosinophils% 2.6 % (0-5); Hematocrit 38.5 % (40-54); Hemoglobin 12.5 g/dl (13.0-16.5); Lymphocyte # 0.92 X10^3/ul (4.0); Lymphocyte % 13.1 % (19-41); Mean Corp Hgb Conc 32.5 g/gl (32-36); Mean Corpuscular Volume 86.1 fL (80-94); Mean Platelet Vol. 9.2 fl (6.2-12.0); Monocyte# 0.63 X10^3/uL; Monocyte% 8.9 % (0-10); Neutrophil # 5.27 X10^3/uL (2.7-7.7); Neutrophil % 74.8 % (47-70); Platelet Count 224 K/mm3 (150-450); RBC Distribution Width CV 13.4 % (11.6-14.6); Red Blood Count 4.47 M/mm3 (4.6-6.2)
[2017-11-15 07:34] LABS: POSITIVE COUNT NO; POSITIVE DIFFERENTIAL NO; POSITIVE MORPHOLOGY NO
[2017-11-15 07:37] LABS: Prothrombin Time (Protime)PT. 22.7 SECONDS (11.7-14.9)
[2017-11-15 07:56] LABS: Anion Gap 6 (5-15); BUN 20 mg/dL (7-18); BUN/Creat Ratio 13.2 RATIO (10-20); Calcium,Total 8.3 mg/dL (8.5-10.1); Chloride 105 mmol/L (98-107); Creatinine, Serum 1.51 mg/dL (0.70-1.30); EST Glomerular Filtration Rate 48 mL/min (>60); Est Glom Filt Rate - Afr Amer 58 mL/min (>60); Estimated Creatinine Clearance 45.68 ml/min; Glucose 259 mg/dL (74-106); Potassium 4.4 mmol/L (3.5-5.1); Sodium Level 137 mmol/L (136-145)
[2017-11-15] MEDS: Citalopram 40 MG TABLET PO (08:33)
[2017-11-15] MEDS: Tamsulosin HCl 0.4 MG Capsule PO (08:33)
[2017-11-15] MEDS: 0.9% Normal Saline 1,000 ML 75 ML IV ×2 (08:33→22:04)
[2017-11-15] MEDS: Docusate Sodium 100 MG Capsule PO ×2 (08:33→22:03)
[2017-11-15] MEDS: Losartan Potassium 100 MG Tablet PO (08:33)
[2017-11-15] MEDS: Gabapentin 100 MG Capsule PO ×2 (08:34→17:03)
[2017-11-15] MEDS: Insulin Lispro 100 UNIT/ML INSULN.PEN 13 UNIT SC ×3 (08:34→17:03)
[2017-11-15] MEDS: Metoprolol(XL)Succ 50 MG Tablet PO (08:34)
[2017-11-15] MEDS: Insulin Lispro 100 UNIT/ML INSULN.PEN SC ×4 (08:35→22:03)
--- NOTE | 2017-11-15 08:39 | NURSING ---
pt urine has been clear, yellow with no visual signs of blood t/o [employer]inist 2nd shift and into today. INR 2.0 today- vit K given yesterday.
--- NOTE | 2017-11-15 09:02 | PCM.PN.HOSP ---
Subjective: The patient is a 76 y/o M w/ PMHx: NILO on q HS BIPAP, Chronic COPD with chronic hypoxic respiratory failure, Morbid Obesity, HTN, HLD, Hx Nephrolithiasis, BPH, History of Remote PE, Diabetes mellitus type II, Anxiety and Depression who presents to the [facility] ED on 11/14/17 w/ history of ongoing progressively worsening hematuria with urinary frequency and generalized weakness ?2 days without any fever or chills associated. Possible ? Acute Complicated Urinary Tract Infection w/ Acute Normocytic Anemia secondary to Hematuria, Prior UCx w/ Pseudomonas, MRSA w/ Supratherapeutic INR as noted #2: Admitted to [facility] upon ED evaluation remarkable but no marked bacteria although still concerning given presentation, pending UCx but current presentation may solely be secondary to his supratherapeutic INR, monitor I/Os, continue IV Doxycycline given prior UCx and ID abx usages, d/c if UCx not marked, initially given presentation plan for harrison w/ continuous bladder irrigation; however, hematuria and clots resolved. Urology consulted, pending. ID consulted, pending but if UCx unremarkable then would discontinue evaluation. Discussed anticoagulation at length with patient, family and his PCP with decision given very remote single event PE to discontinue. Vitamin K 5 mg po x 1 administered. Trend INR w/ 11/15/17 INR 2 Given severity of UCx prior, continue treatment until results and then would plan discharge to home. Elevated BPs, will continue home regimen including losartan, metoprolol, added imdur, continue to trend BPs, PRN hydralazine. Patient with no acute events overnight per self and per nursing report. Patient had complete resolution of hematuria following transition from the ED to the floor despite markedly noted hematuria with clots in the ED. we discussed concept of discontinuation of Coumadin with continued monitoring per primary care physician to which he remains amenable and again understands risks. Pending urology evaluation. Understands awaiting urine culture to assure no associated urinary tract infection. Patient denies fevers, chills, nausea, emesis, abdominal pain, chest pain or dyspnea. Objective: Physical Examination: General: awake, alert, oriented x 3 and cooperative, seated upright in the bedside chair, NAD. Skin: normal color, turgor, no icterus, cyanosis, resolving mild intertrigo in the groin and axilla regions and notable chronic bilateral lower extremity chronic venous stasis skin changes. HEENT: AT/NC, EOMI, PERRLA, MMM. Lungs: Diminished breath sounds bilaterally, greater bases, moderate effort, no rales, ronchi or wheezing. Heart: Regular rate and rhythm; no gallop, rub audible. Abdomen: soft, morbidly obese, intertrigo in the folds noted, no suprapubic tenderness or generally NTTP, ND, normal BS. : Resolved hematuria, no clots, AM urine clear, did not require continuous irrigation. Extremities: no cyanosis, clubbing, bilateral lower extremity ankle to distal espinosa edema with chronic venous stasis skin changes. Neurological: patient awake, alert, oriented x 3; cognitive function intact; pupils equally reactive to light and accomodation; cranial nerves II-XII grossly normal, moving all 4 extremities, no focal deficits, strength improved, mildly to moderately globally decreased. Psychiatric: affect appears normal, no acute evidence of depressive or anxiety feelings. Vitals/I&O's: Vital Signs Temp Pulse Resp BP Pulse Ox 97.8 F 64 18 196/87 H 95 11/15/17 08:29 11/15/17 08:34 11/15/17 08:29 11/15/17 08:29 11/15/17 08:29 Oxygen Delivery Method Room Air Weight: 391 lb 8.655 oz Body Mass Index (BMI) 53.0 Intake and Output for Last 24 Hours 11/13/17 11/14/17 11/15/17 23:59 23:59 23:59 Intake Total 2156 / 2156 Output Total 300 / 550 2475 / 2475 Balance -300 / -550 -319 / -319 Laboratory Results 11/14/17 17:58: POC Glucose 350 H 11/14/17 22:22: POC Glucose 295 H 11/15/17 06:37: POC Glucose 261 H 11/15/17 07:08: Sodium 137, Potassium 4.4, Chloride 105, Carbon Dioxide 26.0, Anion Gap 6, BUN 20 H, Creatinine 1.51 H, Estim Creat Clear Calc 45.68, Est GFR (MDRD) Af Amer 58 L, Est GFR (MDRD) Non-Af 48 L, BUN/Creatinine Ratio 13.2, Glucose 259 H, Calcium 8.3 L 11/15/17 07:08: WBC 7.0, RBC 4.47 L, Hgb 12.5 L, Hct 38.5 L, MCV 86.1, MCH 28.0, MCHC 32.5, RDW 13.4, RDW Differential 42.0, Plt Count 224, MPV 9.2, Immature Gran % (Auto) 0.300, Neut % (Auto) 74.8 H, Lymph % (Auto) 13.1 L, [place] % (Auto) 8.9, Eos % (Auto) 2.6, Baso % (Auto) 0.3, Absolute Neuts (auto) 5.3, Absolute Lymphs (auto) 0.92, Total Counted Not Reportable 11/15/17 07:08: PT 22.7 H, INR 2.0 Current Medications Acetaminophen (Tylenol) 650 mg PO Q6H PRN PRN PRN Reason: Mild Pain (scale 0-3)/T>100.7 Al Hydroxide/Mg Hydroxide (Mylanta Ii) 30 ml PO Q6H PRN PRN PRN Reason: Gastric burning Albuterol Sulfate (Ventolin Aerosols) 2.5 mg INHALATION Q2H PRN PRN PRN Reason: dyspnea, wheezing Albuterol/Ipratropium (Duoneb) 3 ml INHALATION Q6HWA.RT [facility] Last Admin: 11/15/17 07:17 Dose: 3 ml Atorvastatin Calcium (Lipitor) 40 mg PO QHS [facility] Last Admin: 11/14/17 22:41 Dose: 40 mg Citalopram Hydrobromide (Celexa) 40 mg PO DAILY [facility] Last Admin: 11/15/17 08:33 Dose: 40 mg Docusate Sodium (Colace) 100 mg PO BID [facility] Last Admin: 11/15/17 08:33 Dose: 100 mg Fluticasone Propionate (Flonase Nasal [place]) 1 spray NASAL BID PRN PRN Reason: NASAL CONGESTION Gabap[facility] ([facility]in) [facility] Last Admin: 11/15/17 08:34 Dose: 100 mg Hydralazine HCl (Apresoline Iv) 10 mg IV Q4H PRN PRN PRN Reason: SBP > 160 Last Admin: 11/15/17 04:11 Dose: 10 mg Sodium Chloride () 1,000 mls @ 75 mls/hr IV .[id number] [facility] Last Admin: 11/15/17 08:33 Dose: 75 mls/hr Doxycycline Hyclate 100 mg/ (Dextrose) 260 mls @ 250 mls/hr IV Q12 [facility] Last Admin: 11/14/17 18:07 Dose: 250 mls/hr Insulin Detemir (Levemir (Bkc)) 20 units SC BID [facility] Last Admin: 11/14/17 22:39 Dose: 20 u Insulin Human Lispro (Humalog Kwikpen (Bkc)) 13 unit SC TIDAC [facility] Last Admin: 11/15/17 08:34 Dose: 13 units Insulin Human Lispro (Humalog Kwikpen (Bkc)) 0 unit SC ACHS [facility] PRN Reason: Protocol Last Admin: 11/15/17 08:35 Dose: 3 units Losartan Potassium (Cozaar) 100 mg PO DAILY [facility] Last Admin: 11/15/17 08:33 Dose: 100 mg Magnesium Hydroxide (Milk Of Magnesia) 30 ml PO DAILY PRN PRN PRN Reason: Constipation Metoprolol Succinate (Toprol Xl (Beta Luna)) 50 mg PO DAILY [facility] Last Admin: 11/15/17 08:34 Dose: 50 mg Nystatin (Mycostatin Powder) 1 applic TOPICAL TID [facility] PRN Reason: Protocol Last Admin: 11/15/17 06:46 Dose: 1 applicatio Ondansetron HCl (Zofran) 4 mg IV Q8H PRN PRN PRN Reason: NAUSEA Oxycodone HCl (Oxyir) 5 mg PO Q4H PRN PRN PRN Reason: Moderate Pain (pain scale 4-5) Psyllium Hydrophilic Mucilloid (Metamucil) 1 packet PO DAILY PRN PRN PRN Reason: CONSTIPATION Sodium Chloride () 5 - 30 ml IV UD PRN PRN Reason: SALINE FLUSH Tamsulosin HCl (Flomax) 0.4 mg PO DAILY@0830 [facility] Last Admin: 11/15/17 08:33 Dose: 0.4 mg Medical Necessity - Tobacco Use Smoking Status: Former smoker Assessment/Plan The patient is a 76 y/o M w/ PMHx: NILO on q HS BIPAP, Chronic COPD with chronic hypoxic respiratory failure, Morbid Obesity, HTN, HLD, Hx Nephrolithiasis, BPH, History of Remote PE, Diabetes mellitus type II, Anxiety and Depression who presents to the [facility] ED on 11/14/17 w/ history of ongoing progressively worsening hematuria with urinary frequency and generalized weakness ?2 days without any fever or chills associated. (1) Possible ? Acute Complicated Urinary Tract Infection w/ Acute Normocytic Anemia secondary to Hematuria, Prior UCx w/ Pseudomonas, MRSA w/ Supratherapeutic INR as noted #2: Admitted to [facility] upon ED evaluation remarkable but no marked bacteria although still concerning given presentation, pending UCx but current presentation may solely be secondary to his supratherapeutic INR, monitor I/Os, continue IV Doxycycline given prior UCx and ID abx usages, d/c if UCx not marked, initially given presentation plan for harrison w/ continuous bladder irrigation; however, hematuria and clots resolved. Urology consulted, pending. ID consulted, pending but if UCx unremarkable then would discontinue evaluation. Discussed anticoagulation at length with patient, family and his PCP with decision given very remote single event PE to discontinue. Vitamin K 5 mg po x 1 administered. Trend INR w/ 11/15/17 INR 2. Given severity of UCx prior, continue treatment until results and then would plan discharge to home. (2) History of remote PE on oral anticoagulant with supratherapeutic INR: Admission INR 4.9. Presentation as noted #1. Discussed anticoagulation at length with patient, family and his PCP with decision given very remote single event PE to discontinue. Vitamin K 5 mg po x 1 administered. Again, 11/15/17 re-discussed this pathway and risks with possible recurrent DVT, PE or worsen, even and patient remains amenable to complete discontinuation of anticoagulation and close follow-up with his PCP. 11/15/17 INR 2.0, resolved hematuria as noted. (3) Hypertension: Elevated BPs, will continue home regimen including losartan, metoprolol, added imdur, continue to trend BPs, PRN hydralazine. (4) Hyperlipidemia: Continue home statin regimen. (5) Diabetes mellitus type II: Hold oral home regimen, continue home insulin regimen, ADA diet, accu checks w/ ISS, nutrition consulted for education and teaching. (6) Chronic COPD with hypoxic respiratory failure: Will maintain on home oxygen supplementation, continue ATC duonebs, PRN albuterol, HOB, IS parameters. (7) Morbid Obesity: Weight loss and lifestyle changes encouraged, nutrition consulted. (8) Chronic Kidney Disease Stage III: Admission BUN/Cr 19/1.56, baseline renal function 1.6-1.8, 11/15/17 BUN/Cr 20/1.51, stable. (9) Anxiety and depression: Continue home Celexa regimen. (10) NILO: Continue home nightly BiPAP. (11) Intertrigo: TID nystatin powder. (12) BPH: Continue on Flomax regimen. (13) DVT Prophylaxis: SCDs, defer chemoprophylaxis as noted, supratherapeutic INR upon admission. Code Visit Inpatient E&M: 52132 Subs Hosp L2
--- NOTE | 2017-11-15 09:15 | PN_ITS ---
Subjective: The patient is a 76 y/o M w/ PMHx: NILO on q HS BIPAP, Chronic COPD with chronic hypoxic respiratory failure, Morbid Obesity, HTN, HLD, Hx Nephrolithiasis, BPH, History of Remote PE, Diabetes mellitus type II, Anxiety and Depression who presents to the [facility] ED on 11/14/17 w/ history of ongoing progressively worsening hematuria with urinary frequency and generalized weakness ?2 days without any fever or chills associated. Possible ? Acute Complicated Urinary Tract Infection w/ Acute Normocytic Anemia secondary to Hematuria, Prior UCx w/ Pseudomonas, MRSA w/ Supratherapeutic INR as noted #2: Admitted to [facility] upon ED evaluation remarkable but no marked bacteria although still concerning given presentation, pending UCx but current presentation may solely be secondary to his supratherapeutic INR, monitor I/Os, continue IV Doxycycline given prior UCx and ID abx usages, d/c if UCx not marked, initially given presentation plan for harrison w/ continuous bladder irrigation; however, hematuria and clots resolved. Urology consulted, pending. ID consulted, pending but if UCx unremarkable then would discontinue evaluation. Discussed anticoagulation at length with patient, family and his PCP with decision given very remote single event PE to discontinue. Vitamin K 5 mg po x 1 administered. Trend INR w/ 11/15/17 INR 2 Given severity of UCx prior, continue treatment until results and then would plan discharge to home. Elevated BPs, will continue home regimen including losartan, metoprolol, added imdur, continue to trend BPs, PRN hydralazine. Patient with no acute events overnight per self and per nursing report. Patient had complete resolution of hematuria following transition from the ED to the floor despite markedly noted hematuria with clots in the ED. we discussed concept of discontinuation of Coumadin with continued monitoring per primary care physician to which he remains amenable and again understands risks. Pending urology evaluation. Understands awaiting urine culture to assure no associated urinary tract infection. Patient denies fevers, chills, nausea, emesis, abdominal pain, chest pain or dyspnea. Objective: Physical Examination: General: awake, alert, oriented x 3 and cooperative, seated upright in the bedside chair, NAD. Skin: normal color, turgor, no icterus, cyanosis, resolving mild intertrigo in the groin and axilla regions and notable chronic bilateral lower extremity chronic venous stasis skin changes. HEENT: AT/NC, EOMI, PERRLA, MMM. Lungs: Diminished breath sounds bilaterally, greater bases, moderate effort, no rales, ronchi or wheezing. Heart: Regular rate and rhythm; no gallop, rub audible. Abdomen: soft, morbidly obese, intertrigo in the folds noted, no suprapubic tenderness or generally NTTP, ND, normal BS. : Resolved hematuria, no clots, AM urine clear, did not require continuous irrigation. Extremities: no cyanosis, clubbing, bilateral lower extremity ankle to distal espinosa edema with chronic venous stasis skin changes. Neurological: patient awake, alert, oriented x 3; cognitive function intact; pupils equally reactive to light and accomodation; cranial nerves II-XII grossly normal, moving all 4 extremities, no focal deficits, strength improved, mildly to moderately globally decreased. Psychiatric: affect appears normal, no acute evidence of depressive or anxiety feelings. Vitals/I&O's: Vital Signs Temp Pulse Resp BP Pulse Ox 97.8 F 64 18 196/87 H 95 11/15/17 08:29 11/15/17 08:34 11/15/17 08:29 11/15/17 08:29 11/15/17 08:29 Oxygen Delivery Method Room Air Weight: 391 lb 8.655 oz Body Mass Index (BMI) 53.0 Intake and Output for Last 24 Hours 11/13/17 11/14/17 11/15/17 23:59 23:59 23:59 Intake Total 2156 / 2156 Output Total 300 / 550 2475 / 2475 Balance -300 / -550 -319 / -319 Laboratory Results 11/14/17 17:58: POC Glucose 350 H 11/14/17 22:22: POC Glucose 295 H 11/15/17 06:37: POC Glucose 261 H 11/15/17 07:08: Sodium 137, Potassium 4.4, Chloride 105, Carbon Dioxide 26.0, Anion Gap 6, BUN 20 H, Creatinine 1.51 H, Estim Creat Clear Calc 45.68, Est GFR (MDRD) Af Amer 58 L, Est GFR (MDRD) Non-Af 48 L, BUN/Creatinine Ratio 13.2, Glucose 259 H, Calcium 8.3 L 11/15/17 07:08: WBC 7.0, RBC 4.47 L, Hgb 12.5 L, Hct 38.5 L, MCV 86.1, MCH 28.0 , MCHC 32.5, RDW 13.4, RDW Differential 42.0, Plt Count 224, MPV 9.2, Immature Gran % (Auto) 0.300, Neut % (Auto) 74.8 H, Lymph % (Auto) 13.1 L, [place] % (Auto) 8.9, Eos % (Auto) 2.6, Baso % (Auto) 0.3, Absolute Neuts (auto) 5.3, Absolute Lymphs (auto) 0.92, Total Counted Not Reportable 11/15/17 07:08: PT 22.7 H, INR 2.0 Current Medications Acetaminophen (Tylenol) 650 mg PO Q6H PRN PRN PRN Reason: Mild Pain (scale 0-3)/T>100.7 Al Hydroxide/Mg Hydroxide (Mylanta Ii) 30 ml PO Q6H PRN PRN PRN Reason: Gastric burning Albuterol Sulfate (Ventolin Aerosols) 2.5 mg INHALATION Q2H PRN PRN PRN Reason: dyspnea, wheezing Albuterol/Ipratropium (Duoneb) 3 ml INHALATION Q6HWA.RT [facility] Last Admin: 11/15/17 07:17 Dose: 3 ml Atorvastatin Calcium (Lipitor) 40 mg PO QHS [facility] Last Admin: 11/14/17 22:41 Dose: 40 mg Citalopram Hydrobromide (Celexa) 40 mg PO DAILY [facility] Last Admin: 11/15/17 08:33 Dose: 40 mg Docusate Sodium (Colace) 100 mg PO BID [facility] Last Admin: 11/15/17 08:33 Dose: 100 mg Fluticasone Propionate (Flonase Nasal [place]) 1 spray NASAL BID PRN PRN Reason: NASAL CONGESTION Gabap[facility] ([facility]) [facility] Last Admin: 11/15/17 08:34 Dose: 100 mg Hydralazine HCl (Apresoline Iv) 10 mg IV Q4H PRN PRN PRN Reason: SBP > 160 Last Admin: 11/15/17 04:11 Dose: 10 mg Sodium Chloride () 1,000 mls @ 75 mls/hr IV .[id number] [facility] Last Admin: 11/15/17 08:33 Dose: 75 mls/hr Doxycycline Hyclate 100 mg/ (Dextrose) 260 mls @ 250 mls/hr IV Q12 [facility] Last Admin: 11/14/17 18:07 Dose: 250 mls/hr Insulin Detemir (Levemir (Bkc)) 20 units SC BID [facility] Last Admin: 11/14/17 22:39 Dose: 20 u Insulin Human Lispro (Humalog Kwikpen (Bkc)) 13 unit SC TIDAC [facility] Last Admin: 11/15/17 08:34 Dose: 13 units Insulin Human Lispro (Humalog Kwikpen (Bkc)) 0 unit SC ACHS [facility] PRN Reason: Protocol Last Admin: 11/15/17 08:35 Dose: 3 units Losartan Potassium (Cozaar) 100 mg PO DAILY [facility] Last Admin: 11/15/17 08:33 Dose: 100 mg Magnesium Hydroxide (Milk Of Magnesia) 30 ml PO DAILY PRN PRN PRN Reason: Constipation Metoprolol Succinate (Toprol Xl (Beta Luna)) 50 mg PO DAILY [facility] Last Admin: 11/15/17 08:34 Dose: 50 mg Nystatin (Mycostatin Powder) 1 applic TOPICAL TID [facility] PRN Reason: Protocol Last Admin: 11/15/17 06:46 Dose: 1 applicatio Ondansetron HCl (Zofran) 4 mg IV Q8H PRN PRN PRN Reason: NAUSEA Oxycodone HCl (Oxyir) 5 mg PO Q4H PRN PRN PRN Reason: Moderate Pain (pain scale 4-5) Psyllium Hydrophilic Mucilloid (Metamucil) 1 packet PO DAILY PRN PRN PRN Reason: CONSTIPATION Sodium Chloride () 5 - 30 ml IV UD PRN PRN Reason: SALINE FLUSH Tamsulosin HCl (Flomax) 0.4 mg PO DAILY@0830 [facility] Last Admin: 11/15/17 08:33 Dose: 0.4 mg Medical Necessity - Tobacco Use Smoking Status: Former smoker Assessment/Plan The patient is a 76 y/o M w/ PMHx: NILO on q HS BIPAP, Chronic COPD with chronic hypoxic respiratory failure, Morbid Obesity, HTN, HLD, Hx Nephrolithiasis, BPH, History of Remote PE, Diabetes mellitus type II, Anxiety and Depression who presents to the [facility] ED on 11/14/17 w/ history of ongoing progressively worsening hematuria with urinary frequency and generalized weakness ?2 days without any fever or chills associated. (1) Possible ? Acute Complicated Urinary Tract Infection w/ Acute Normocytic Anemia secondary to Hematuria, Prior UCx w/ Pseudomonas, MRSA w/ Supratherapeutic INR as noted #2: Admitted [facility] upon ED evaluation remarkable but no marked bacteria although still concerning given presentation, pending UCx but current presentation may solely be secondary to his supratherapeutic INR, monitor I/Os, continue IV Doxycycline given prior UCx and ID abx usages, d/c if UCx not marked, initially given presentation plan for harrison w/ continuous bladder irrigation; however, hematuria and clots resolved. Urology consulted, pending. ID consulted, pending but if UCx unremarkable then would discontinue evaluation. Discussed anticoagulation at length with patient, family and his PCP with decision given very remote single event PE to discontinue. Vitamin K 5 mg po x 1 administered. Trend INR w/ 11/15/17 INR 2. Given severity of UCx prior, continue treatment until results and then would plan discharge to home. (2) History of remote PE on oral anticoagulant with supratherapeutic INR: Admission INR 4.9. Presentation as noted #1. Discussed anticoagulation at length with patient, family and his PCP with decision given very remote single event PE to discontinue. Vitamin K 5 mg po x 1 administered. Again, 11/15/17 re- discussed this pathway and risks with possible recurrent DVT, PE or worsen, even and patient remains amenable to complete discontinuation of anticoagulation and close follow-up with his PCP. 11/15/17 INR 2.0, resolved hematuria as noted. (3) Hypertension: Elevated BPs, will continue home regimen including losartan, metoprolol, added imdur, continue to trend BPs, PRN hydralazine. (4) Hyperlipidemia: Continue home statin regimen. (5) Diabetes mellitus type II: Hold oral home regimen, continue home insulin regimen, ADA diet, accu checks w/ ISS, nutrition consulted for education and teaching. (6) Chronic COPD with hypoxic respiratory failure: Will maintain on home oxygen supplementation, continue ATC duonebs, PRN albuterol, HOB, IS parameters. (7) Morbid Obesity: Weight loss and lifestyle changes encouraged, nutrition consulted. (8) Chronic Kidney Disease Stage III: Admission BUN/Cr 19/1.56, baseline renal function 1.6-1.8, 11/15/17 BUN/Cr 20/1.51, stable. (9) Anxiety and depression: Continue home Celexa regimen. (10) NILO: Continue home nightly BiPAP. (11) Intertrigo: TID nystatin powder. (12) BPH: Continue on Flomax regimen. (13) DVT Prophylaxis: SCDs, defer chemoprophylaxis as noted, supratherapeutic INR upon admission. Code Visit Inpatient E&M: 06463 Subs Hosp L2
[2017-11-15] MEDS: Isosorbide Mononitrate 30 MG Tablet PO (12:04)
[2017-11-15 12:16] LABS: Bedside Glucose 308 mg/dL (70-110)
[2017-11-15 17:01] LABS: Bedside Glucose 405 mg/dL (70-110)
[2017-11-15] MEDS: Atorvastatin Calcium 40 MG Tablet PO (22:03)
[2017-11-15 22:06] LABS: Bedside Glucose 343 mg/dL (70-110)
[2017-11-16] VITALS (13 sets, daily range): BP systolic 117–204; BP diastolic 57–87; PULSE 51–84; RESP 16–18; TEMP 36.4–37.2; O2SAT 93–95
[2017-11-16] MEDS: hydrALAZINE 20 MG/ML Vial 10 MG IV ×2 (05:23→23:22)
[2017-11-16] MEDS: Nystatin Powder 15gm Bottle 1 APPLIC TOPICAL ×3 (06:51→21:17)
[2017-11-16] MEDS: oxyCODONE 5 MG Tablet PO (06:51)
[2017-11-16 07:09] LABS: Absolute Lymphocyte Count 0.76 X10^3/ul (0.83-4.51); Basophil# 0.02 X10^3/uL; Basophil% 0.2 % (0-1); Eosinophil# 0.18 X10^3/uL; Eosinophils% 1.9 % (0-5); Hematocrit 40.1 % (40-54); Hemoglobin 13.3 g/dl (13.0-16.5); Lymphocyte # 0.76 X10^3/ul (4.0); Lymphocyte % 7.9 % (19-41); Mean Corp Hgb Conc 33.2 g/gl (32-36); Mean Corpuscular Hgb 28.9 pg (27.0-32.0); Mean Corpuscular Volume 87.2 fL (80-94); Mean Platelet Vol. 9.3 fl (6.2-12.0); Monocyte# 0.67 X10^3/uL; Monocyte% 6.9 % (0-10); Neutrophil # 7.98 X10^3/uL (2.7-7.7); Neutrophil % 82.7 % (47-70); POSITIVE COUNT NO; POSITIVE DIFFERENTIAL NO; POSITIVE MORPHOLOGY NO; Platelet Count 268 K/mm3 (150-450); RBC Distribution Width CV 13.6 % (11.6-14.6); RBC Distribution Width SD 41.5 fl (35.1-43.9); White Blood Count 9.7 K/mm3 (4.4-11.0)
[2017-11-16 07:14] LABS: International Normalized Ratio 1.3; Prothrombin Time (Protime)PT. 16.1 SECONDS (11.7-14.9)
[2017-11-16] MEDS: Ipratropium/Albuterol Sulfate 3 ML AMPUL.NEB INHALATION ×2 (07:16→19:50)
[2017-11-16 07:33] LABS: Anion Gap 7 (5-15); BUN 22 mg/dL (7-18); BUN/Creat Ratio 13.5 RATIO (10-20); Calcium,Total 8.5 mg/dL (8.5-10.1); Chloride 104 mmol/L (98-107); Creatinine, Serum 1.63 mg/dL (0.70-1.30); EST Glomerular Filtration Rate 44 mL/min (>60); Est Glom Filt Rate - Afr Amer 53 mL/min (>60); Estimated Creatinine Clearance 42.32 ml/min; Glucose 246 mg/dL (74-106); Potassium 4.3 mmol/L (3.5-5.1); Sodium Level 137 mmol/L (136-145)
[2017-11-16] MEDS: Docusate Sodium 100 MG Capsule PO (09:10)
[2017-11-16] MEDS: Tamsulosin HCl 0.4 MG Capsule PO (09:11)
[2017-11-16] MEDS: Gabapentin 100 MG Capsule PO ×2 (09:11→17:03)
[2017-11-16] MEDS: Citalopram 40 MG TABLET PO (09:11)
[2017-11-16] MEDS: Losartan Potassium 100 MG Tablet PO (09:11)
[2017-11-16] MEDS: Isosorbide Mononitrate 30 MG Tablet PO (09:11)
[2017-11-16] MEDS: Metoprolol(XL)Succ 50 MG Tablet PO (09:14)
[2017-11-16] MEDS: Insulin Lispro 100 UNIT/ML INSULN.PEN 13 UNIT SC ×3 (09:21→17:03)
[2017-11-16] MEDS: Insulin Lispro 100 UNIT/ML INSULN.PEN SC ×4 (09:21→21:18)
[2017-11-16 09:31] LABS: Bedside Glucose 262 mg/dL (70-110)
--- NOTE | 2017-11-16 12:03 | PN_ITS ---
Subjective: Chief complaint: Follow-up after admission for probable complicated acute UTI/ acute cystitis with hematuria. Patient seen and examined. No acute events overnight. He denied any significant complaints. Urine is clearing up, urine culture and no more blood. Denied abdominal pain, nausea vomiting. Denies fever or chills. His vital signs are stable. - Physical Exam General: Alert, Oriented x3, Cooperative, No apparent distress HEENT: Atraumatic, PERRLA, EOMI Oral: Moist Mucosa, No Gingival or Mucosal Lesions/ Ulcerations Neck: Supple, No JVD, Negative Carotid Bruits, Trachea Midline, Thyroid Normal Size and Texture Lungs: Clear to auscultation, No rhonchi, No wheeze, No rales, Diminished Cardiovascular: Regular rate, Regular Rhythm, Normal S1, Normal S2, PMI Normal Abdomen: Bowel Sounds Present, Soft, Non Tender, Non-Distended, No Hepato- splenomegaly, Obese Extremities: No clubbing, No cyanosis, Edema - Trace edema, stasis dermatitis. Skin: No rashes, No breakdown Lymphatic: No Cervical, Supraclavicular, or Inguinal Adenopathy Neurological: Cranial nerves II-XII grossly intact, Neuro grossly intact Psych/Mental Status: Flat Affect Vital Signs Temp Pulse Resp BP Pulse Ox 97.6 F L 84 16 164/85 H 95 11/16/17 09:10 11/16/17 09:14 11/16/17 09:10 11/16/17 09:10 11/16/17 09:10 Oxygen Delivery Method Room Air Weight: 391 lb 8.655 oz Body Mass Index (BMI) 53.0 Intake and Output for Last 24 Hours 11/14/17 11/15/17 11/16/17 23:59 23:59 23:59 Intake Total 3725 / 3725 1563 / 1563 Output Total 300 / 550 3975 / 3975 1600 / 1600 Balance -300 / -550 -250 / -250 -37 / -37 Laboratory Tests Past 24 Hrs 11/16/17 11/16/17 11/16/17 06:50 06:50 06:50 WBC 9.7 RBC 4.60 Hgb 13.3 Hct 40.1 MCV 87.2 MCH 28.9 MCHC 33.2 RDW 13.6 RDW Differential 41.5 Plt Count 268 MPV 9.3 Immature Gran % (Auto) 0.400 Neut % (Auto) 82.7 H Lymph % (Auto) 7.9 L [place] % (Auto) 6.9 Eos % (Auto) 1.9 Baso % (Auto) 0.2 Absolute Neuts (auto) 8.0 H Absolute Lymphs (auto) 0.76 L Total Counted Not Reportable PT 16.1 H INR 1.3 Sodium 137 Potassium 4.3 Chloride 104 Carbon Dioxide 26.0 Anion Gap 7 BUN 22 H Creatinine 1.63 H Estim Creat Clear Calc 42.32 Est GFR (MDRD) Af Amer 53 L Est GFR (MDRD) Non-Af 44 L BUN/Creatinine Ratio 13.5 Glucose 246 H Calcium 8.5 POC Glucose 11/16/17 11/15/17 11/15/17 09:21 21:56 16:25 POC Glucose 262 H 343 H 405 H 11/15/17 12:06 POC Glucose 308 H Medical Necessity - Tobacco Use Smoking Status: Former smoker Assessment/Plan This is a 76 years old male patient admitted because of hematuria secondary to Coumadin induced coagulopathy in addition to acute complicated UTI/acute cystitis. #1 probable acute complicated UTI/cystitis: He is on IV doxycycline. Vital signs are stable, afebrile, no leukocytosis. Urine culture revealed pseudomonas aeruginosa which has been shown in his urine culture in the past and could be a contaminant. We are waiting for infectious disease recommendations. Plan to continue same treatment. #2 hematuria: Resolved. It is secondary to Coumadin induced coagulopathy. Admission INR was 4.9. Patient received vitamin K. INR is down to 1.3 today. Patient was on Coumadin for history of PE and after discussion with the patient and his PCP, decision was made to stop Coumadin forever. Hemoglobin and hematocrit are stable. Awaiting urology evaluation. #3 supratherapeutic INR: Today's INR is 1.3. Patient received vitamin K. At this time, he has no more hematuria, no evidence of blood loss. As above, decision was made to stop Coumadin further. #4 type 2 diabetes mellitus: Uncontrolled. Blood sugar has been fluctuating significantly. He is on Levemir insulin twice daily, pre-meal Humalog as well as sliding scale. #5 hypertension: Blood pressure stable, continue losartan, metoprolol and IV hydralazine as needed. #6 stage III chronic kidney disease: Baseline creatinine has been around 1.4- 1.8 mg/dL, stable at baseline. #7 COPD/chronic respiratory failure: Without evidence of acute exacerbation. Pulse ox is maintained on room air. He is on DuoNeb every 6 hours, and albuterol as needed. #8 hyperlipidemia: Continue statins. #9 history of DVT/PE: Coumadin discontinued as above. #10 benign prostatic hypertrophy: Continue Flomax. #11 obstructive sleep apnea: Noncompliant with BiPAP. #12 DVT prophylaxis: SCDs. This note was generated with [employer] dictation software. It may contain incorrect words, spelling, and punctuation that were not noted in checking the note before signing. Code Visit Inpatient E&M: 34466 Subs Hosp L2
[2017-11-16 12:21] LABS: Bedside Glucose 376 mg/dL (70-110)
[2017-11-16] MEDS: 0.9% Normal Saline 1,000 ML 75 ML IV (13:44)
[2017-11-16 17:10] LABS: Bedside Glucose 293 mg/dL (70-110)
--- NOTE | 2017-11-16 21:25 | NURSING ---
Patient noted as being very drowsy during assessment, will awaken to voice and able to nod to some questions yet drifts off easily, Vs obtained 94% on RA, lung sounds diminished, BG 279. RT called and RT came into bedside to help assess patient. Patient assisted into bed via this RN and RT, patients home BIPAP applied. Will continue to monitor.
[2017-11-16 21:41] LABS: Bedside Glucose 279 mg/dL (70-110)
[2017-11-17] VITALS (9 sets, daily range): BP systolic 107–153; BP diastolic 45–82; PULSE 52–77; RESP 16–20; TEMP 36.4–37.1; O2SAT 93–96
[2017-11-17 00:01] LABS: Allen Test POS; Base Excess -3 mmol/L (-2 to +2); Bicarbonate 22.4 mmol/L (22-26); Blood Gas Specimen Type ART; EPAP 12; FI02 21; IPAP 18; PO2 70 mmHG (75-100); RR 0; SITE L Radial; SO2 94 % (95-99); Time Given 2350; Total Carbon Dioxide 24 mmol/L; pCO2 37.2 mmHg (35-45); pH 7.39 (7.35-7.45)
[2017-11-17] MEDS: Nystatin Powder 15gm Bottle 1 APPLIC TOPICAL ×3 (05:22→22:29)
[2017-11-17] MEDS: 0.9% Normal Saline 1,000 ML 75 ML IV (05:22)
[2017-11-17 06:07] LABS: Absolute Lymphocyte Count 1.36 X10^3/ul (0.83-4.51); Absolute Neutrophil Count 4.3 X10^3/uL (2.0-7.7); Basophil# 0.02 X10^3/uL; Basophil% 0.3 % (0-1); Eosinophil# 0.29 X10^3/uL; Eosinophils% 4.3 % (0-5); Hematocrit 35.5 % (40-54); Hemoglobin 11.5 g/dl (13.0-16.5); Lymphocyte # 1.36 X10^3/ul (4.0); Mean Corp Hgb Conc 32.4 g/gl (32-36); Mean Corpuscular Hgb 28.8 pg (27.0-32.0); Mean Platelet Vol. 9.6 fl (6.2-12.0); Monocyte# 0.73 X10^3/uL; Monocyte% 10.8 % (0-10); Neutrophil # 4.34 X10^3/uL (2.7-7.7); Neutrophil % 63.9 % (47-70); Platelet Count 225 K/mm3 (150-450); RBC Distribution Width CV 13.7 % (11.6-14.6); RBC Distribution Width SD 43.4 fl (35.1-43.9); Red Blood Count 3.99 M/mm3 (4.6-6.2); White Blood Count 6.8 K/mm3 (4.4-11.0)
[2017-11-17 06:14] LABS: POSITIVE COUNT NO; POSITIVE DIFFERENTIAL NO; POSITIVE MORPHOLOGY NO
[2017-11-17 06:18] LABS: International Normalized Ratio 1.3; Prothrombin Time (Protime)PT. 15.9 SECONDS (11.7-14.9)
[2017-11-17 06:55] LABS: Anion Gap 9 (5-15); BUN 28 mg/dL (7-18); BUN/Creat Ratio 15.1 RATIO (10-20); Chloride 106 mmol/L (98-107); Creatinine, Serum 1.86 mg/dL (0.70-1.30); EST Glomerular Filtration Rate 38 mL/min (>60); Est Glom Filt Rate - Afr Amer 46 mL/min (>60); Estimated Creatinine Clearance 37.08 ml/min; Glucose 237 mg/dL (74-106); Potassium 4.1 mmol/L (3.5-5.1); Sodium Level 138 mmol/L (136-145)
[2017-11-17] MEDS: Ipratropium/Albuterol Sulfate 3 ML AMPUL.NEB INHALATION ×3 (06:56→19:16)
[2017-11-17] MEDS: Insulin Lispro 100 UNIT/ML INSULN.PEN 13 UNIT SC ×3 (08:28→17:11)
[2017-11-17] MEDS: Insulin Lispro 100 UNIT/ML INSULN.PEN SC ×4 (08:28→22:28)
[2017-11-17] MEDS: Tamsulosin HCl 0.4 MG Capsule PO (08:29)
[2017-11-17] MEDS: Gabapentin 100 MG Capsule PO ×2 (08:29→17:13)
[2017-11-17 08:35] LABS: Bedside Glucose 204 mg/dL (70-110)
[2017-11-17] MEDS: Piperacil/Tazobactam 3.375 GM/50 ML ML IV ×3 (09:59→22:28)
[2017-11-17] MEDS: Citalopram 40 MG TABLET PO (10:05)
[2017-11-17] MEDS: Losartan Potassium 100 MG Tablet PO (10:06)
[2017-11-17] MEDS: Isosorbide Mononitrate 30 MG Tablet PO (10:06)
[2017-11-17] MEDS: Metoprolol(XL)Succ 50 MG Tablet PO (10:07)
--- NOTE | 2017-11-17 12:23 | CON.PCM_ITS ---
Problem List (1) Cystitis Status: Acute Reason for Consult: uti Consulted by: Dr. Patel History of Present Illness: The patient is a 76 year old M with recurrent uti and chronic harrison who presented with 4-5 days of bright red blood in urine with no clots present. No trauma to catheter or recent procedures. No fever or chills, but did have some mild lower abd pain and general malaise. Catheter not changed recently. No n/v /d. Came to ED, started on iv doxycycline. Blood in urine has resolved, otherwise not feeling better. Full ROS performed and neg except as noted above. - Medical History Past Medical History (Chronic Problems): Chronic Problems (Last Reviewed 09/11/17 @ 11:00 by BETTYE Aguilera) Thromboembolism (Chronic) BPH (benign prostatic hyperplasia) (Chronic) Super obesity (Chronic) Debility (Chronic) Noncompliance (Chronic) with CPAP and follow up and with diet COPD (chronic obstructive pulmonary disease) (Chronic) Type II diabetes mellitus, uncontrolled (Chronic) History of depression (Chronic) History of other venous thrombosis and embolism (Chronic) HLD (hyperlipidemia) (Chronic) HTN (hypertension) (Chronic) NILO (obstructive sleep apnea) (Chronic) Chronic renal failure, stage 3 (moderate) (Chronic) Bifascicular bundle branch block (Chronic) Colon polyps (Chronic) Family history of colon cancer (Chronic) Allergies/Adverse Reactions: Allergies MARGIE Inhibitors Allergy (Unknown, Verified 11/14/17 12:34) Unknown cefepime Allergy (Verified 11/14/17 12:34) Other WEAKNESS & FALLING ipodate [Ipodate] Allergy (Verified 11/14/17 12:34) Shortness of breath levofloxacin [Levofloxacin] Allergy (Verified 11/14/17 12:34) Anaphylaxis lisinopril Allergy (Verified 11/14/17 12:34) Shortness of breath ofloxacin Allergy (Verified 11/14/17 12:34) Unknown Quinolones Allergy (Verified 11/14/17 12:34) Anaphylaxis Home Medications: Ambulatory Orders Medication Instructions Recorded Atorvastatin Calcium [Lipitor] 40 mg PO QHS 05/29/15 Citalopram [Celexa] 40 mg PO DAILY 05/29/15 Fluticasone 0.05% [Flonase Nasal 1 spray NASAL BID PRN 05/29/15 [place]] Tamsulosin HCl [Flomax] 0.4 mg PO DAILY 07/08/16 Losartan Potassium [Cozaar] 100 mg PO DAILY 07/24/17 Nystatin Powder [Mycostatin Powder] 1 applic TOPICAL BID 08/06/17 Albuterol Inhaler [Ventolin Hfa] 2 puff INHALATION Q6HWA.RT #1 08/11/17 inhaler Insulin Aspart [Novolog Flexpen] 13 units SC TIDAC #1 flexpen 08/11/17 Insulin Detemir [Levemir FlexPen] 20 units SC BID #1 insuln.pen 08/11/17 Metoprolol(XL)Succ [Toprol Xl 50 mg PO DAILY #30 tab 08/11/17 (Beta Luna)] Mineral Oil/Petrolatum,White 1 applic TOPICAL BID@0600,2200 jar 08/11/17 [Eucerin] Gabapentin [Neurontin] 100 mg PO BID 11/14/17 Warfarin Sodium [Coumadin] 20 mg PO DAILY 11/14/17 - Social History SMOKING STATUS:: Former smoker Vital Signs Temp Pulse Resp BP Pulse Ox 98.4 F 77 18 135/62 H 94 11/17/17 09:55 11/17/17 10:07 11/17/17 09:55 11/17/17 10:07 11/17/17 09:55 Oxygen Delivery Method Room Air Weight: 177.6 kg Body Mass Index (BMI) 53.0 Laboratory Tests Past 24 Hrs 11/16/17 11/17/17 11/17/17 23:55 05:30 05:30 WBC 6.8 RBC 3.99 L Hgb 11.5 L Hct 35.5 L MCV 89.0 MCH 28.8 MCHC 32.4 RDW 13.7 RDW Differential 43.4 Plt Count 225 MPV 9.6 Immature Gran % (Auto) 0.700 Neut % (Auto) 63.9 Lymph % (Auto) 20.0 [place] % (Auto) 10.8 H Eos % (Auto) 4.3 Baso % (Auto) 0.3 Absolute Neuts (auto) 4.3 Absolute Lymphs (auto) 1.36 Total Counted Not Reportable PT INR Specimen Type ART Sample Site L Radial pH 7.39 Bicarbonate Actual 22.4 POC Total CO2 24 Base Excess -3 L O2 Saturation 94 L O2 % 21 ABG pCO2 37.2 ABG pO2 70 L Randy Test POS Respiration Rate 0 O2 Delivery Device Bi / C PAP EPAP 12 IPAP 18 Blood Gas Notified Whom HOSP Blood Gas Notified Time 2350 Sodium 138 Potassium 4.1 Chloride 106 Carbon Dioxide 23.0 Anion Gap 9 BUN 28 H Creatinine 1.86 H Estim Creat Clear Calc 37.08 Est GFR (MDRD) Af Amer 46 L Est GFR (MDRD) Non-Af 38 L BUN/Creatinine Ratio 15.1 Glucose 237 H Calcium 8.0 L 11/17/17 05:30 WBC RBC Hgb Hct MCV MCH MCHC RDW RDW Differential Plt Count MPV Immature Gran % (Auto) Neut % (Auto) Lymph % (Auto) [place] % (Auto) Eos % (Auto) Baso % (Auto) Absolute Neuts (auto) Absolute Lymphs (auto) Total Counted PT 15.9 H INR 1.3 Specimen Type Sample Site pH Bicarbonate Actual POC Total CO2 Base Excess O2 Saturation O2 % ABG pCO2 ABG pO2 Randy Test Respiration Rate O2 Delivery Device EPAP IPAP Blood Gas Notified Whom Blood Gas Notified Time Sodium Potassium Chloride Carbon Dioxide Anion Gap BUN Creatinine Estim Creat Clear Calc Est GFR (MDRD) Af Amer Est GFR (MDRD) Non-Af BUN/Creatinine Ratio Glucose Calcium - Other Studies Radiology: [] reviewed Other Studies: [] Route of nutrition/ use of supplements: [] Nutritional Intake: [] IV Site: [] Harrison Catheter: [] - Physical Exam General: Alert, Oriented x3, Cooperative, No apparent distress HEENT: Atraumatic, PERRLA, EOMI Neck: Supple, No Nodes Lungs: Clear to auscultation, Normal air movement Cardiovascular: Regular rate, Regular Rhythm, No murmurs Abdomen: Soft, Non-Distended, Tender - mild suprapubic tenderness Extremities: Edema Skin: No rashes IV Site: Peripheral, without redness Musculoskeletal: No Tenderness to Palpation of Joints or Extremities Neurological: Cranial nerves II-XII grossly intact - Assessment/Plan Antibiotics: [] Assessment/Plan: [] PsA complicated uti - (+) suprapubic pain, malaise, heavy pyuria, heavy growth on UCx. Sx did not improve on doxy which has no PsA coverage. Has tolerated zosyn in the past, so will start now. May be candidate for po fosfomycin at discharge if sx improve on zosyn. Will follow, thank you, d/w primary team.
[2017-11-17 12:41] LABS: Bedside Glucose 267 mg/dL (70-110)
--- NOTE | 2017-11-17 13:45 | CASEMGMT ---
RN CAIT Face to Face with patient for initial transition planning/care coordination assessment. RN CM introduced self and role at [facility]. Patient sitting in chair, alert and oriented. Patient willing to participate in assessment and is able to answer all questions appropriately. Care providers, pharmacy, and demographics verified. See link attached. Patient wishes to discharge home, denies need for home health at this time. Patient states he has no further needs or concerns at this time. CM to follow for discharge planning needs that may arise. Disposition Plan: Patient to discharge home with family support and follow-up plans in place.
--- NOTE | 2017-11-17 13:59 | PN_ITS ---
Subjective: Cc: Follow-up on acute cystitis, gross hematuria Objective: He reports no gross hematuria, dysuria , increased urinary frequency fever or chills. Vitals/I&O's: Vital Signs Temp Pulse Resp BP Pulse Ox 98.4 F 63 16 135/62 H 94 11/17/17 09:55 11/17/17 13:45 11/17/17 13:45 11/17/17 10:07 11/17/17 09:55 Oxygen Delivery Method Room Air Weight: 177.6 kg Body Mass Index (BMI) 53.0 Intake and Output for Last 24 Hours 11/15/17 11/16/17 11/17/17 23:59 23:59 23:59 Intake Total 3725 / 3725 3635 / 3635 1274 / 1274 Output Total 3975 / 3975 2200 / 2200 850 / 850 Balance -250 / -250 1435 / 1435 424 / 424 General: Alert, Oriented x3 HEENT: PERRLA Oral: Moist Mucosa Neck: Supple, Negative Carotid Bruits Lungs: Clear to auscultation Cardiovascular: Regular rate, Normal S1, Normal S2 Laboratory Results 11/16/17 17:02: POC Glucose 293 H 11/16/17 21:12: POC Glucose 279 H 11/16/17 23:55: Specimen Type ART, Sample Site L Radial, pH 7.39, Bicarbonate Actual 22.4, POC Total CO2 24, Base Excess -3 L, O2 Saturation 94 L, O2 % 21, ABG pCO2 37.2, ABG pO2 70 L, Randy Test POS, Respiration Rate 0, O2 Delivery Device Bi / C PAP, EPAP 12, IPAP 18, Blood Gas Notified Whom MARIELENA RAZO, Blood Gas Notified Time 2350 11/17/17 05:30: Sodium 138, Potassium 4.1, Chloride 106, Carbon Dioxide 23.0, Anion Gap 9, BUN 28 H, Creatinine 1.86 H, Estim Creat Clear Calc 37.08, Est GFR (MDRD) Af Amer 46 L, Est GFR (MDRD) Non-Af 38 L, BUN/Creatinine Ratio 15.1, Glucose 237 H, Calcium 8.0 L 11/17/17 05:30: WBC 6.8, RBC 3.99 L, Hgb 11.5 L, Hct 35.5 L, MCV 89.0, MCH 28.8 , MCHC 32.4, RDW 13.7, RDW Differential 43.4, Plt Count 225, MPV 9.6, Immature Gran % (Auto) 0.700, Neut % (Auto) 63.9, Lymph % (Auto) 20.0, [place] % (Auto) 10.8 H, Eos % (Auto) 4.3, Baso % (Auto) 0.3, Absolute Neuts (auto) 4.3, Absolute Lymphs (auto) 1.36, Total Counted Not Reportable 11/17/17 05:30: PT 15.9 H, INR 1.3 11/17/17 08:26: POC Glucose 204 H 11/17/17 12:26: POC Glucose 267 H Current Medications Acetaminophen (Tylenol) 650 mg PO Q6H PRN PRN PRN Reason: Mild Pain (scale 0-3)/T>100.7 Al Hydroxide/Mg Hydroxide (Mylanta Ii) 30 ml PO Q6H PRN PRN PRN Reason: Gastric burning Albuterol Sulfate (Ventolin Aerosols) 2.5 mg INHALATION Q2H PRN PRN PRN Reason: dyspnea, wheezing Albuterol/Ipratropium (Duoneb) 3 ml INHALATION Q6HWA.RT [facility] Last Admin: 11/17/17 13:44 Dose: 3 ml Atorvastatin Calcium (Lipitor) 40 mg PO QHS [facility] Last Admin: 11/16/17 21:17 Dose: Not Given Citalopram Hydrobromide (Celexa) 40 mg PO DAILY [facility] Last Admin: 11/17/17 10:05 Dose: 40 mg Docusate Sodium (Colace) 100 mg PO BID [facility] Last Admin: 11/17/17 10:05 Dose: Not Given Fluticasone Propionate (Flonase Nasal [place]) 1 spray NASAL BID PRN PRN Reason: NASAL CONGESTION [facility] Last Admin: 11/17/17 08:29 Dose: 100 mg Hydralazine HCl (Apresoline Iv) 10 mg IV Q4H PRN PRN PRN Reason: SBP > 160 Last Admin: 11/16/17 23:22 Dose: 10 mg Sodium Chloride () 1,000 mls @ 75 mls/hr IV .[id number] [facility] Last Admin: 05/29/18 05:22 Dose: 75 mls/hr Piperacillin Sod/Tazobactam Sod (Zosyn) 3.375 gm in 50 mls @ 12.5 mls/hr IV Q8 [facility] Last Admin: 11/17/17 09:59 Dose: 12.5 mls/hr Insulin Detemir (Levemir (Bkc)) 20 units SC BID [facility] Last Admin: 11/17/17 10:06 Dose: 20 u Insulin Human Lispro (Humalog Kwikpen (Bkc)) 13 unit SC TIDAC [facility] Last Admin: 11/17/17 12:30 Dose: 13 units Insulin Human Lispro (Humalog Kwikpen (Bkc)) 0 unit SC ACHS [facility] PRN Reason: Protocol Last Admin: 11/17/17 12:31 Dose: 3 units Isosorbide Mononitrate (Imdur) 30 mg PO DAILY [facility] Last Admin: 11/17/17 10:06 Dose: 30 mg Losartan Potassium (Cozaar) 100 mg PO DAILY [facility] Last Admin: 11/17/17 10:06 Dose: 100 mg Magnesium Hydroxide (Milk Of Magnesia) 30 ml PO DAILY PRN PRN PRN Reason: Constipation Metoprolol Succinate (Toprol Xl (Beta Luna)) 50 mg PO DAILY [facility] Last Admin: 11/17/17 10:07 Dose: 50 mg Nystatin (Mycostatin Powder) 1 applic TOPICAL TID [facility] PRN Reason: Protocol Last Admin: 11/17/17 05:22 Dose: 1 applicatio Ondansetron HCl (Zofran) 4 mg IV Q8H PRN PRN PRN Reason: NAUSEA Oxycodone HCl (Oxyir) 5 mg PO Q4H PRN PRN PRN Reason: Moderate Pain (pain scale 4-5) Last Admin: 11/16/17 06:51 Dose: 5 mg Psyllium Hydrophilic Mucilloid (Metamucil) 1 packet PO DAILY PRN PRN PRN Reason: CONSTIPATION Sodium Chloride () 5 - 30 ml IV UD PRN PRN Reason: SALINE FLUSH Tamsulosin HCl (Flomax) 0.4 mg PO DAILY@0830 [facility] Last Admin: 11/17/17 08:29 Dose: 0.4 mg Medical Necessity - Tobacco Use Smoking Status: Former smoker Assessment/Plan This is a 76 years old male patient admitted because of hematuria secondary to Coumadin induced coagulopathy in addition to acute complicated UTI/acute cystitis. 1 . Acute Pseudomonas cystitis; will continue on IV Zosyn as recommended by infectious disease. 2 gross hematuria setting of supratherapeutic INR this has resolved. 3 DVT and PE we will start the patient on Eliquis restarted on Coumadin. 4 type 2 diabetes mellitus; continue on current insulin regimen. 6 stage III chronic kidney disease; continue to monitor renal parameters closely. 7 Chronic respiratory failure from COPD; continue on supplemental oxygen. 8. Obstructive sleep apnea; on HS BiPAP.
--- NOTE | 2017-11-17 14:12 | CHAPLAIN ---
Type of Pastoral Visit _x__ Initial Visit ___ Follow-up Visit ___ On-call Visit ___ General Patient Visit ___ Spiritual Assessment ___ Family Conference ___ Bereavement ___ Rapid Response ___ Code Blue ___ Other (describe below) Pastoral Care Referral From _x__ Patient ___ Family ___ Nurse ___ Physician ___ Brim Flexer ___ Parent Trainer ___ Other (describe below) Sacrament/Intervention _x__ Active listening ___ Anointing ___ Congregation ___ Bereavement ___ Communion ___ Marcella exploration ___ _x__ Life review _x__ Prayer ___ Reconciliation ___ Sacrament of Sick _x__ Supportive presence ___ Wedding ___ Other (describe below) Pastoral Comments
[2017-11-17] MEDS: Acetaminophen 325 MG Tablet 650 MG PO (16:04)
[2017-11-17] MEDS: oxyCODONE 5 MG Tablet PO (17:17)
[2017-11-17 17:25] LABS: Bedside Glucose 318 mg/dL (70-110)
[2017-11-17] MEDS: Docusate Sodium 100 MG Capsule PO (22:28)
[2017-11-17] MEDS: Atorvastatin Calcium 40 MG Tablet PO (22:29)
[2017-11-17 22:46] LABS: Bedside Glucose 276 mg/dL (70-110)
[2017-11-18] VITALS (9 sets, daily range): BP systolic 133–173; BP diastolic 62–89; PULSE 54–104; RESP 18–20; TEMP 36.3–37.1; O2SAT 95–98
[2017-11-18] MEDS: Piperacil/Tazobactam 3.375 GM/50 ML ML IV ×3 (05:59→22:21)
[2017-11-18] MEDS: Nystatin Powder 15gm Bottle 1 APPLIC TOPICAL ×3 (06:00→22:24)
[2017-11-18 06:50] LABS: Absolute Lymphocyte Count 1.26 X10^3/ul (0.83-4.51); Absolute Neutrophil Count 4.5 X10^3/uL (2.0-7.7); Basophil# 0.04 X10^3/uL; Basophil% 0.6 % (0-1); Eosinophil# 0.37 X10^3/uL; Eosinophils% 5.3 % (0-5); Hematocrit 37.6 % (40-54); Lymphocyte # 1.26 X10^3/ul (4.0); Lymphocyte % 18.2 % (19-41); Mean Corp Hgb Conc 31.9 g/gl (32-36); Mean Corpuscular Hgb 28.8 pg (27.0-32.0); Mean Corpuscular Volume 90.4 fL (80-94); Mean Platelet Vol. 9.3 fl (6.2-12.0); Monocyte% 10.1 % (0-10); Neutrophil # 4.53 X10^3/uL (2.7-7.7); Neutrophil % 65.2 % (47-70); Platelet Count 236 K/mm3 (150-450); RBC Distribution Width CV 13.8 % (11.6-14.6); RBC Distribution Width SD 44.5 fl (35.1-43.9); Red Blood Count 4.16 M/mm3 (4.6-6.2); White Blood Count 6.9 K/mm3 (4.4-11.0)
[2017-11-18 06:51] LABS: POSITIVE COUNT NO; POSITIVE DIFFERENTIAL NO; POSITIVE MORPHOLOGY NO
[2017-11-18 06:58] LABS: International Normalized Ratio 1.2; Prothrombin Time (Protime)PT. 15.1 SECONDS (11.7-14.9)
[2017-11-18 07:04] LABS: Anion Gap 9 (5-15); BUN 31 mg/dL (7-18); BUN/Creat Ratio 16.8 RATIO (10-20); Calcium,Total 8.3 mg/dL (8.5-10.1); Chloride 107 mmol/L (98-107); Creatinine, Serum 1.85 mg/dL (0.70-1.30); EST Glomerular Filtration Rate 38 mL/min (>60); Est Glom Filt Rate - Afr Amer 46 mL/min (>60); Estimated Creatinine Clearance 37.29 ml/min; Glucose 236 mg/dL (74-106); Potassium 4.3 mmol/L (3.5-5.1); Sodium Level 138 mmol/L (136-145)
[2017-11-18] MEDS: Ipratropium/Albuterol Sulfate 3 ML AMPUL.NEB INHALATION ×2 (07:10→18:38)
[2017-11-18 07:35] LABS: Bedside Glucose 234 mg/dL (70-110)
[2017-11-18] MEDS: Insulin Lispro 100 UNIT/ML INSULN.PEN 13 UNIT SC ×3 (08:02→15:44)
[2017-11-18] MEDS: Insulin Lispro 100 UNIT/ML INSULN.PEN SC ×4 (08:03→22:22)
[2017-11-18] MEDS: Gabapentin 100 MG Capsule PO ×2 (08:04→15:44)
[2017-11-18] MEDS: Citalopram 40 MG TABLET PO (08:12)
[2017-11-18] MEDS: Docusate Sodium 100 MG Capsule PO ×2 (08:12→22:21)
[2017-11-18] MEDS: Metoprolol(XL)Succ 50 MG Tablet PO (08:12)
[2017-11-18] MEDS: Tamsulosin HCl 0.4 MG Capsule PO (08:13)
[2017-11-18] MEDS: Isosorbide Mononitrate 30 MG Tablet PO (08:13)
[2017-11-18] MEDS: Losartan Potassium 100 MG Tablet PO (08:13)
--- NOTE | 2017-11-18 10:43 | PN.ID_ITS ---
Subjective: Feeling better, no abd pain this AM. No fever, no n/v/d. - Physical Exam General: Alert, Cooperative Lungs: Clear to auscultation, Normal air movement Cardiovascular: Regular rate, Regular Rhythm Abdomen: Soft, Non Tender, Non-Distended, Obese Skin: No rashes Vital Signs Temp Pulse Resp BP Pulse Ox 97.7 F L 60 18 173/89 H 96 11/18/17 08:04 11/18/17 09:19 11/18/17 08:04 11/18/17 08:04 11/18/17 09:10 Oxygen Delivery Method Room Air Weight: 177.6 kg Body Mass Index (BMI) 53.0 Intake and Output for Last 24 Hours 11/16/17 11/17/17 11/18/17 23:59 23:59 23:59 Intake Total 3635 / 3635 1774 / 1774 611 / 611 Output Total 2200 / 2200 1080 / 1080 800 / 800 Balance 1435 / 1435 694 / 694 -189 / -189 Laboratory Tests Past 24 Hrs 11/18/17 11/18/17 11/18/17 06:16 06:16 06:16 WBC 6.9 RBC 4.16 L Hgb 12.0 L Hct 37.6 L MCV 90.4 MCH 28.8 MCHC 31.9 L RDW 13.8 RDW Differential 44.5 H Plt Count 236 MPV 9.3 Immature Gran % (Auto) 0.600 Neut % (Auto) 65.2 Lymph % (Auto) 18.2 L [place] % (Auto) 10.1 H Eos % (Auto) 5.3 H Baso % (Auto) 0.6 Absolute Neuts (auto) 4.5 Absolute Lymphs (auto) 1.26 Total Counted Not Reportable PT 15.1 H INR 1.2 Sodium 138 Potassium 4.3 Chloride 107 Carbon Dioxide 22.0 Anion Gap 9 BUN 31 H Creatinine 1.85 H Estim Creat Clear Calc 37.29 Est GFR (MDRD) Af Amer 46 L Est GFR (MDRD) Non-Af 38 L BUN/Creatinine Ratio 16.8 Glucose 236 H Calcium 8.3 L POC Glucose 11/18/17 11/17/17 11/17/17 07:33 22:24 17:03 POC Glucose 234 H 276 H 318 H 11/17/17 12:26 POC Glucose 267 H Medical Necessity - Tobacco Use Smoking Status: Former smoker Route of nutrition/ use of supplements: [] Nutritional Intake: [] IV Site: [] Lane Catheter: [] - Assessment/Plan Antibiotics: [] Assessment/Plan: [] PsA complicated uti - (+) suprapubic pain, malaise, heavy pyuria, heavy growth on UCx. Sx better today on zosyn for PsA coverage. Likely discharge today or tomorrow on po fosfomycin 3gm po q72 hours for 3 doses. Will follow, d/w special education case manager
[2017-11-18 11:01] LABS: Bedside Glucose 294 mg/dL (70-110)
[2017-11-18] MEDS: 0.9% Normal Saline 1,000 ML 75 ML IV (13:44)
[2017-11-18] MEDS: 0.9% NaCl Peripheral Flush Adult/Peds IV (13:47)
[2017-11-18 15:51] LABS: Bedside Glucose 218 mg/dL (70-110)
--- NOTE | 2017-11-18 17:00 | PCM.PN.HOSP ---
Subjective: Cc: Acute cystitis Objective: The patient denies any dysuria, hematuria , increased urinary frequency , fever or chills. Vitals/I&O's: Vital Signs Temp Pulse Resp BP Pulse Ox 98.8 F 54 L 18 133/64 H 95 11/18/17 13:58 11/18/17 13:58 11/18/17 13:58 11/18/17 13:58 11/18/17 13:58 Oxygen Delivery Method Room Air Weight: 177.6 kg Body Mass Index (BMI) 53.0 Intake and Output for Last 24 Hours 11/16/17 11/17/17 11/18/17 23:59 23:59 23:59 Intake Total 3635 / 3635 1774 / 1774 2132 / 2132 Output Total 2200 / 2200 1080 / 1080 1200 / 1200 Balance 1435 / 1435 694 / 694 932 / 932 General: Alert, Oriented x3 Oral: Moist Mucosa Neck: Supple Lungs: Clear to auscultation Cardiovascular: Regular rate, Normal S1, Normal S2 Abdomen: Bowel Sounds Present, Soft, Non Tender Extremities: No edema Laboratory Results 11/17/17 17:03: POC Glucose 318 H 11/17/17 22:24: POC Glucose 276 H 11/18/17 06:16: Sodium 138, Potassium 4.3, Chloride 107, Carbon Dioxide 22.0, Anion Gap 9, BUN 31 H, Creatinine 1.85 H, Estim Creat Clear Calc 37.29, Est GFR (MDRD) Af Amer 46 L, Est GFR (MDRD) Non-Af 38 L, BUN/Creatinine Ratio 16.8, Glucose 236 H, Calcium 8.3 L 11/18/17 06:16: WBC 6.9, RBC 4.16 L, Hgb 12.0 L, Hct 37.6 L, MCV 90.4, MCH 28.8, MCHC 31.9 L, RDW 13.8, RDW Differential 44.5 H, Plt Count 236, MPV 9.3, Immature Gran % (Auto) 0.600, Neut % (Auto) 65.2, Lymph % (Auto) 18.2 L, [place] % (Auto) 10.1 H, Eos % (Auto) 5.3 H, Baso % (Auto) 0.6, Absolute Neuts (auto) 4.5, Absolute Lymphs (auto) 1.26, Total Counted Not Reportable 11/18/17 06:16: PT 15.1 H, INR 1.2 11/18/17 07:33: POC Glucose 234 H 11/18/17 10:52: POC Glucose 294 H 11/18/17 15:42: POC Glucose 218 H Current Medications Acetaminophen (Tylenol) 650 mg PO Q6H PRN PRN PRN Reason: Mild Pain (scale 0-3)/T>100.7 Last Admin: 11/17/17 16:04 Dose: 650 mg Al Hydroxide/Mg Hydroxide (Mylanta Ii) 30 ml PO Q6H PRN PRN PRN Reason: Gastric burning Albuterol Sulfate (Ventolin Aerosols) 2.5 mg INHALATION Q2H PRN PRN PRN Reason: dyspnea, wheezing Albuterol/Ipratropium (Duoneb) 3 ml INHALATION Q6HWA.RT [facility] Last Admin: 11/18/17 14:10 Dose: Not Given Atorvastatin Calcium (Lipitor) 40 mg PO QHS [facility] Last Admin: 11/17/17 22:29 Dose: 40 mg Citalopram Hydrobromide (Celexa) 40 mg PO DAILY [facility] Last Admin: 11/18/17 08:12 Dose: 40 mg Docusate Sodium (Colace) 100 mg PO BID [facility] Last Admin: 11/18/17 08:12 Dose: 100 mg Fluticasone Propionate (Flonase Nasal [place]) 1 spray NASAL BID PRN PRN Reason: NASAL CONGESTION Gabapentin (Neurontin) 100 mg PO BIDCM [facility] Last Admin: 11/18/17 15:44 Dose: 100 mg Hydralazine HCl (Apresoline Iv) 10 mg IV Q4H PRN PRN PRN Reason: SBP > 160 Last Admin: 11/16/17 23:22 Dose: 10 mg Sodium Chloride () 1,000 mls @ 75 mls/hr IV .[id number] [facility] Last Admin: 11/18/17 13:44 Dose: 75 mls/hr Piperacillin Sod/Tazobactam Sod (Zosyn) 3.375 gm in 50 mls @ 12.5 mls/hr IV Q8 [facility] Last Admin: 11/18/17 13:44 Dose: 12.5 mls/hr Insulin Detemir (Levemir (Bkc)) 20 units SC BID [facility] Last Admin: 11/18/17 09:37 Dose: 20 u Insulin Human Lispro (Humalog Kwikpen (Bkc)) 13 unit SC TIDAC [facility] Last Admin: 11/18/17 15:44 Dose: 13 units Insulin Human Lispro (Humalog Kwikpen (Bkc)) 0 unit SC ACHS [facility] PRN Reason: Protocol Last Admin: 11/18/17 15:44 Dose: 2 units Isosorbide Mononitrate (Imdur) 30 mg PO DAILY [facility] Last Admin: 11/18/17 08:13 Dose: 30 mg Losartan Potassium (Cozaar) 100 mg PO DAILY [facility] Last Admin: 11/18/17 08:13 Dose: 100 mg Magnesium Hydroxide (Milk Of Magnesia) 30 ml PO DAILY PRN PRN PRN Reason: Constipation Metoprolol Succinate (Toprol Xl (Beta Luna)) 50 mg PO DAILY [facility] Last Admin: 11/18/17 08:12 Dose: 50 mg Nystatin (Mycostatin Powder) 1 applic TOPICAL TID [facility] PRN Reason: Protocol Last Admin: 11/18/17 13:44 Dose: 1 applicatio Ondansetron HCl (Zofran) 4 mg IV Q8H PRN PRN PRN Reason: NAUSEA Oxycodone HCl (Oxyir) 5 mg PO Q4H PRN PRN PRN Reason: Moderate Pain (pain scale 4-5) Last Admin: 11/17/17 17:17 Dose: 5 mg Psyllium Hydrophilic Mucilloid (Metamucil) 1 packet PO DAILY PRN PRN PRN Reason: CONSTIPATION Sodium Chloride () 5 - 30 ml IV UD PRN PRN Reason: SALINE FLUSH Last Admin: 11/18/17 13:47 Dose: 10 ml Tamsulosin HCl (Flomax) 0.4 mg PO DAILY@0830 [facility] Last Admin: 11/18/17 08:13 Dose: 0.4 mg Medical Necessity - Tobacco Use Smoking Status: Former smoker Assessment/Plan All Active Problems (Last Reviewed 09/11/17 @ 11:00 by BETTYE Aguilera) Cystitis (Acute) History of kidney stones (Resolved) MRSA (methicillin resistant staph aureus) culture positive (Resolved) 1 . Acute Pseudomonas cystitis; will continue on IV Zosyn for 1 more day and then discharged on fosfomycin p.o as recommended by ID. 2 gross hematuria setting of supratherapeutic INR this has resolved. 3 DVT and PE we will start the patient on Eliquis today. 4 type 2 diabetes mellitus; continue on current insulin regimen. 6 stage III chronic kidney disease; continue to monitor renal parameters closely. 7 Chronic respiratory failure from COPD; continue on supplemental oxygen. 8. Obstructive sleep apnea; on HS BiPAP. 9. Discharge planning.
--- NOTE | 2017-11-18 17:06 | PN_ITS ---
Subjective: Cc: Acute cystitis Objective: The patient denies any dysuria, hematuria , increased urinary frequency , fever or chills. Vitals/I&O's: Vital Signs Temp Pulse Resp BP Pulse Ox 98.8 F 54 L 18 133/64 H 95 11/18/17 13:58 11/18/17 13:58 11/18/17 13:58 11/18/17 13:58 11/18/17 13:58 Oxygen Delivery Method Room Air Weight: 177.6 kg Body Mass Index (BMI) 53.0 Intake and Output for Last 24 Hours 11/16/17 11/17/17 11/18/17 23:59 23:59 23:59 Intake Total 3635 / 3635 1774 / 1774 2132 / 2132 Output Total 2200 / 2200 1080 / 1080 1200 / 1200 Balance 1435 / 1435 694 / 694 932 / 932 General: Alert, Oriented x3 Oral: Moist Mucosa Neck: Supple Lungs: Clear to auscultation Cardiovascular: Regular rate, Normal S1, Normal S2 Abdomen: Bowel Sounds Present, Soft, Non Tender Extremities: No edema Laboratory Results 11/17/17 17:03: POC Glucose 318 H 11/17/17 22:24: POC Glucose 276 H 11/18/17 06:16: Sodium 138, Potassium 4.3, Chloride 107, Carbon Dioxide 22.0, Anion Gap 9, BUN 31 H, Creatinine 1.85 H, Estim Creat Clear Calc 37.29, Est GFR (MDRD) Af Amer 46 L, Est GFR (MDRD) Non-Af 38 L, BUN/Creatinine Ratio 16.8, Glucose 236 H, Calcium 8.3 L 11/18/17 06:16: WBC 6.9, RBC 4.16 L, Hgb 12.0 L, Hct 37.6 L, MCV 90.4, MCH 28.8 , MCHC 31.9 L, RDW 13.8, RDW Differential 44.5 H, Plt Count 236, MPV 9.3, Immature Gran % (Auto) 0.600, Neut % (Auto) 65.2, Lymph % (Auto) 18.2 L, [place] % (Auto) 10.1 H, Eos % (Auto) 5.3 H, Baso % (Auto) 0.6, Absolute Neuts (auto) 4.5 , Absolute Lymphs (auto) 1.26, Total Counted Not Reportable 11/18/17 06:16: PT 15.1 H, INR 1.2 11/18/17 07:33: POC Glucose 234 H 11/18/17 10:52: POC Glucose 294 H 11/18/17 15:42: POC Glucose 218 H Current Medications Acetaminophen (Tylenol) 650 mg PO Q6H PRN PRN PRN Reason: Mild Pain (scale 0-3)/T>100.7 Last Admin: 11/17/17 16:04 Dose: 650 mg Al Hydroxide/Mg Hydroxide (Mylanta Ii) 30 ml PO Q6H PRN PRN PRN Reason: Gastric burning Albuterol Sulfate (Ventolin Aerosols) 2.5 mg INHALATION Q2H PRN PRN PRN Reason: dyspnea, wheezing Albuterol/Ipratropium (Duoneb) 3 ml INHALATION Q6HWA.RT [facility] Last Admin: 11/18/17 14:10 Dose: Not Given Atorvastatin Calcium (Lipitor) 40 mg PO QHS [facility] Last Admin: 11/17/17 22:29 Dose: 40 mg Citalopram Hydrobromide (Celexa) 40 mg PO DAILY [facility] Last Admin: 11/18/17 08:12 Dose: 40 mg Docusate Sodium (Colace) 100 mg PO BID [facility] Last Admin: 11/18/17 08:12 Dose: 100 mg Fluticasone Propionate (Flonase Nasal [place]) 1 spray NASAL BID PRN PRN Reason: NASAL CONGESTION Gabapentin (Neurontin) 100 mg PO BIDCM [facility] Last Admin: 11/18/17 15:44 Dose: 100 mg Hydralazine HCl (Apresoline Iv) 10 mg IV Q4H PRN PRN PRN Reason: SBP > 160 Last Admin: 11/16/17 23:22 Dose: 10 mg Sodium Chloride () 1,000 mls @ 75 mls/hr IV .[id number] [facility] Last Admin: 11/18/17 13:44 Dose: 75 mls/hr Piperacillin Sod/Tazobactam Sod (Zosyn) 3.375 gm in 50 mls @ 12.5 mls/hr IV Q8 [facility] Last Admin: 11/18/17 13:44 Dose: 12.5 mls/hr Insulin Detemir (Levemir (Bkc)) 20 units SC BID [facility] Last Admin: 11/18/17 09:37 Dose: 20 u Insulin Human Lispro (Humalog Kwikpen (Bkc)) 13 unit SC TIDAC [facility] Last Admin: 11/18/17 15:44 Dose: 13 units Insulin Human Lispro (Humalog Kwikpen (Bkc)) 0 unit SC ACHS [facility] PRN Reason: Protocol Last Admin: 11/18/17 15:44 Dose: 2 units Isosorbide Mononitrate (Imdur) 30 mg PO DAILY [facility] Last Admin: 11/18/17 08:13 Dose: 30 mg Losartan Potassium (Cozaar) 100 mg PO DAILY [facility] Last Admin: 11/18/17 08:13 Dose: 100 mg Magnesium Hydroxide (Milk Of Magnesia) 30 ml PO DAILY PRN PRN PRN Reason: Constipation Metoprolol Succinate (Toprol Xl (Beta Luna)) 50 mg PO DAILY [facility] Last Admin: 11/18/17 08:12 Dose: 50 mg Nystatin (Mycostatin Powder) 1 applic TOPICAL TID [facility] PRN Reason: Protocol Last Admin: 11/18/17 13:44 Dose: 1 applicatio Ondansetron HCl (Zofran) 4 mg IV Q8H PRN PRN PRN Reason: NAUSEA Oxycodone HCl (Oxyir) 5 mg PO Q4H PRN PRN PRN Reason: Moderate Pain (pain scale 4-5) Last Admin: 11/17/17 17:17 Dose: 5 mg Psyllium Hydrophilic Mucilloid (Metamucil) 1 packet PO DAILY PRN PRN PRN Reason: CONSTIPATION Sodium Chloride () 5 - 30 ml IV UD PRN PRN Reason: SALINE FLUSH Last Admin: 11/18/17 13:47 Dose: 10 ml Tamsulosin HCl (Flomax) 0.4 mg PO DAILY@0830 [facility] Last Admin: 11/18/17 08:13 Dose: 0.4 mg Medical Necessity - Tobacco Use Smoking Status: Former smoker Assessment/Plan All Active Problems (Last Reviewed 09/11/17 @ 11:00 by BETTYE Aguilera) Cystitis (Acute) History of kidney stones (Resolved) MRSA (methicillin resistant staph aureus) culture positive (Resolved) 1 . Acute Pseudomonas cystitis; will continue on IV Zosyn for 1 more day and then discharged on fosfomycin p.o as recommended by ID. 2 gross hematuria setting of supratherapeutic INR this has resolved. 3 DVT and PE we will start the patient on Eliquis today. 4 type 2 diabetes mellitus; continue on current insulin regimen. 6 stage III chronic kidney disease; continue to monitor renal parameters closely. 7 Chronic respiratory failure from COPD; continue on supplemental oxygen. 8. Obstructive sleep apnea; on HS BiPAP. 9. Discharge planning.
[2017-11-18] MEDS: APIXABAN 5 MG TABLET PO (22:21)
[2017-11-18] MEDS: Atorvastatin Calcium 40 MG Tablet PO (22:23)
[2017-11-18 23:11] LABS: Bedside Glucose 295 mg/dL (70-110)
[2017-11-19] VITALS (7 sets, daily range): BP systolic 141–184; BP diastolic 68–90; PULSE 59–72; RESP 16–20; TEMP 36.4–36.6; O2SAT 95–98
[2017-11-19] MEDS: 0.9% Normal Saline 1,000 ML 75 ML IV (04:49)
[2017-11-19 06:04] LABS: International Normalized Ratio 1.2; Prothrombin Time (Protime)PT. 15.6 SECONDS (11.7-14.9)
[2017-11-19 06:12] LABS: Absolute Lymphocyte Count 1.29 X10^3/ul (0.83-4.51); Absolute Neutrophil Count 4.2 X10^3/uL (2.0-7.7); Basophil# 0.03 X10^3/uL; Basophil% 0.5 % (0-1); Eosinophil# 0.32 X10^3/uL; Hematocrit 34.6 % (40-54); Hemoglobin 11.2 g/dl (13.0-16.5); Lymphocyte # 1.29 X10^3/ul (4.0); Lymphocyte % 20.2 % (19-41); Mean Corp Hgb Conc 32.4 g/gl (32-36); Mean Corpuscular Hgb 28.7 pg (27.0-32.0); Mean Corpuscular Volume 88.7 fL (80-94); Mean Platelet Vol. 9.6 fl (6.2-12.0); Monocyte# 0.58 X10^3/uL; Monocyte% 9.1 % (0-10); Neutrophil # 4.15 X10^3/uL (2.7-7.7); Neutrophil % 64.7 % (47-70); Platelet Count 229 K/mm3 (150-450); RBC Distribution Width CV 13.4 % (11.6-14.6); RBC Distribution Width SD 42.3 fl (35.1-43.9); White Blood Count 6.4 K/mm3 (4.4-11.0)
[2017-11-19 06:23] LABS: Anion Gap 9 (5-15); BUN 28 mg/dL (7-18); BUN/Creat Ratio 16.6 RATIO (10-20); Calcium,Total 8.2 mg/dL (8.5-10.1); Chloride 109 mmol/L (98-107); Creatinine, Serum 1.69 mg/dL (0.70-1.30); EST Glomerular Filtration Rate 42 mL/min (>60); Est Glom Filt Rate - Afr Amer 51 mL/min (>60); Estimated Creatinine Clearance 40.82 ml/min; Glucose 217 mg/dL (74-106); Potassium 4.3 mmol/L (3.5-5.1); Sodium Level 141 mmol/L (136-145)
[2017-11-19 06:36] LABS: POSITIVE COUNT NO; POSITIVE DIFFERENTIAL NO; POSITIVE MORPHOLOGY NO
[2017-11-19] MEDS: Piperacil/Tazobactam 3.375 GM/50 ML ML IV (06:44)
[2017-11-19] MEDS: Nystatin Powder 15gm Bottle 1 APPLIC TOPICAL ×2 (06:44→12:50)
[2017-11-19] MEDS: Ipratropium/Albuterol Sulfate 3 ML AMPUL.NEB INHALATION ×2 (06:53→13:14)
[2017-11-19] MEDS: Metoprolol(XL)Succ 50 MG Tablet PO (08:55)
[2017-11-19] MEDS: Insulin Lispro 100 UNIT/ML INSULN.PEN 13 UNIT SC ×2 (08:55→12:49)
[2017-11-19] MEDS: Insulin Lispro 100 UNIT/ML INSULN.PEN SC ×2 (08:55→12:50)
[2017-11-19] MEDS: Citalopram 40 MG TABLET PO (08:56)
[2017-11-19] MEDS: Losartan Potassium 100 MG Tablet PO (08:56)
[2017-11-19] MEDS: Tamsulosin HCl 0.4 MG Capsule PO (08:56)
[2017-11-19] MEDS: APIXABAN 5 MG TABLET PO (08:56)
[2017-11-19] MEDS: Docusate Sodium 100 MG Capsule PO (08:56)
[2017-11-19] MEDS: Isosorbide Mononitrate 30 MG Tablet PO (08:56)
[2017-11-19] MEDS: Gabapentin 100 MG Capsule PO (08:57)
[2017-11-19 09:10] LABS: Bedside Glucose 237 mg/dL (70-110)
--- NOTE | 2017-11-19 11:05 | PCM.PN.ID ---
Subjective: Feeling better, no abd pain, no fever - Physical Exam General: Cooperative, No apparent distress Lungs: Clear to auscultation, Normal air movement Cardiovascular: Regular rate, Regular Rhythm Abdomen: Soft, Non Tender, Non-Distended Skin: No rashes Vital Signs Temp Pulse Resp BP Pulse Ox 97.8 F 63 18 184/89 H 98 11/19/17 08:50 11/19/17 08:55 11/19/17 08:50 11/19/17 08:50 11/19/17 08:50 Oxygen Delivery Method Room Air Weight: 177.6 kg Body Mass Index (BMI) 53.0 Intake and Output for Last 24 Hours 11/17/17 11/18/17 11/19/17 23:59 23:59 23:59 Intake Total 1774 / 1774 2732 / 2732 1420 / 1420 Output Total 1080 / 1080 1400 / 1400 1400 / 1400 Balance 694 / 694 1332 / 1332 20 / 20 Laboratory Tests Past 24 Hrs 11/19/17 11/19/17 11/19/17 05:24 05:24 05:24 WBC 6.4 RBC 3.90 L Hgb 11.2 L Hct 34.6 L MCV 88.7 MCH 28.7 MCHC 32.4 RDW 13.4 RDW Differential 42.3 Plt Count 229 MPV 9.6 Immature Gran % (Auto) 0.500 Neut % (Auto) 64.7 Lymph % (Auto) 20.2 [place] % (Auto) 9.1 Eos % (Auto) 5.0 Baso % (Auto) 0.5 Absolute Neuts (auto) 4.2 Absolute Lymphs (auto) 1.29 Total Counted Not Reportable PT 15.6 H INR 1.2 Sodium 141 Potassium 4.3 Chloride 109 H Carbon Dioxide 23.0 Anion Gap 9 BUN 28 H Creatinine 1.69 H Estim Creat Clear Calc 40.82 Est GFR (MDRD) Af Amer 51 L Est GFR (MDRD) Non-Af 42 L BUN/Creatinine Ratio 16.6 Glucose 217 H Calcium 8.2 L POC Glucose 11/19/17 11/18/17 11/18/17 08:52 22:15 15:42 POC Glucose 237 H 295 H 218 H Medical Necessity - Tobacco Use Smoking Status: Former smoker Route of nutrition/ use of supplements: [] Nutritional Intake: [] IV Site: [] Lane Catheter: [] - Assessment/Plan Antibiotics: [] Assessment/Plan: [] PsA complicated uti - (+) suprapubic pain, malaise, heavy pyuria, heavy growth on UCx. Sx better on zosyn for PsA coverage. Likely discharge today on po fosfomycin 3gm po q72 hours for 3 doses. Will follow as needed
[2017-11-19 11:30] LABS: Bedside Glucose 290 mg/dL (70-110)
--- NOTE | 2017-11-19 12:23 | PCM.DC ---
You will use the following diet at home:: Regular Discharge Activity: Return to Normal Activity Allergies/Adverse Reactions: Allergies MARGIE Inhibitors Allergy (Unknown, Verified 11/14/17 12:34) Unknown cefepime Allergy (Verified 11/14/17 12:34) Other WEAKNESS & FALLING ipodate [Ipodate] Allergy (Verified 11/14/17 12:34) Shortness of breath levofloxacin [Levofloxacin] Allergy (Verified 11/14/17 12:34) Anaphylaxis lisinopril Allergy (Verified 11/14/17 12:34) Shortness of breath ofloxacin Allergy (Verified 11/14/17 12:34) Unknown Quinolones Allergy (Verified 11/14/17 12:34) Anaphylaxis Medications to take at Discharge Atorvastatin Calcium [Lipitor] 40 mg PO QHS 05/29/15 Citalopram [Celexa] 40 mg PO DAILY 05/29/15 Fluticasone 0.05% [Flonase Nasal [place]] 1 spray NASAL BID PRN 05/29/15 Tamsulosin HCl [Flomax] 0.4 mg PO DAILY 07/08/16 Losartan Potassium [Cozaar] 100 mg PO DAILY 07/24/17 Nystatin Powder [Mycostatin Powder] 1 applic TOPICAL BID 08/06/17 Albuterol Inhaler [Ventolin Hfa] 2 puff INHALATION Q6HWA.RT #1 inhaler 08/11/17 Insulin Aspart [Novolog Flexpen] 13 units SC TIDAC #1 flexpen 08/11/17 Insulin Detemir [Levemir FlexPen] 20 units SC BID #1 insuln.pen 08/11/17 Metoprolol(XL)Succ [Toprol Xl (Beta Luna)] 50 mg PO DAILY #30 tab 08/11/17 Mineral Oil/Petrolatum,White [Eucerin] 1 applic TOPICAL BID@0600,2200 jar 08/11/17 Gabapentin [Neurontin] 100 mg PO BID 11/14/17 Apixaban [Eliquis] 5 mg PO BID #60 tab 11/19/17 Fosfomycin Tromethamine [Monurol] 3 gm PO Q72H #3 packet 11/19/17 Isosorbide Mononitrate [Imdur] 30 mg PO DAILY #30 tab 11/19/17 The following prescriptions were given: Fosfomycin Tromethamine [Monurol] 3 gm PO Q72H #3 packet Isosorbide Mononitrate [Imdur] 30 mg PO DAILY #30 tab Apixaban [Eliquis] 5 mg PO BID #60 tab Primary Care Physician: Wili Nelson DO [Primary Care Provider] - In 1 Week Proposed Discharge Date: 11/19/17
--- NOTE | 2017-11-19 12:24 | DS.PCM_ITS ---
Discharge Date and Diagnosis Date of Admission: 11/14/17 Date of Discharge: 11/19/17 - Secondary Discharge Diagnosis Chronic Problems (Last Reviewed 09/11/17 @ 11:00 by BETTYE Aguilera) Thromboembolism (Chronic) BPH (benign prostatic hyperplasia) (Chronic) Super obesity (Chronic) Debility (Chronic) Noncompliance (Chronic) with CPAP and follow up and with diet COPD (chronic obstructive pulmonary disease) (Chronic) Type II diabetes mellitus, uncontrolled (Chronic) History of depression (Chronic) History of other venous thrombosis and embolism (Chronic) HLD (hyperlipidemia) (Chronic) HTN (hypertension) (Chronic) NILO (obstructive sleep apnea) (Chronic) Chronic renal failure, stage 3 (moderate) (Chronic) Bifascicular bundle branch block (Chronic) Colon polyps (Chronic) Family history of colon cancer (Chronic) Hospital Course and Treatment Operations: None Summary of Care Provided: This is a 76 years old male patient admitted because of hematuria secondary to Coumadin induced coagulopathy in addition to acute complicated UTI/acute cystitis. Culture grew Pseudomonas and infectious disease recommended IV Zosyn and fosfomycin at discharge. He Improve clinically with the management and he was discharged home in stable condition. 1 . Acute Pseudomonas cystitis; he was treated with IV Zosyn discharged on fosfomycin p.o 3g q72 hs x 3 doses as recommended by ID. 2 gross hematuria setting of supratherapeutic INR this has resolved. 3 DVT and PE ; we changed his Coumadin to Eliquis . 4 type 2 diabetes mellitus; 6 stage III chronic kidney disease; we will continue to monitor renal parameters closely. 7 Chronic respiratory failure from COPD; we will continue on supplemental oxygen. 8. Obstructive sleep apnea; on HS BiPAP. physical exam at the time of discharge; vital signs were stable. He was alert and oriented to time place and person. He did not appear to be any form of distress. S1 and S2 heard no murmur or gallop Lung exam was clear to auscultation with no adventitious sounds. Abdomen was soft nontender with normal bowel sounds. extremity exam did not reveal any edema, palpable pulses bilaterally. Neurologic exam was grossly intact. Discharge Diet: No Restrictions Discharge Activity: Return to Normal Activity Home Medications: Medications to take at Discharge Atorvastatin Calcium [Lipitor] 40 mg PO QHS 05/29/15 Citalopram [Celexa] 40 mg PO DAILY 05/29/15 Fluticasone 0.05% [Flonase Nasal [place]] 1 spray NASAL BID PRN 05/29/15 Tamsulosin HCl [Flomax] 0.4 mg PO DAILY 07/08/16 Losartan Potassium [Cozaar] 100 mg PO DAILY 07/24/17 Nystatin Powder [Mycostatin Powder] 1 applic TOPICAL BID 08/06/17 Insulin Aspart [Novolog Flexpen] 13 units SC TIDAC #1 flexpen 08/11/17 Insulin Detemir [Levemir FlexPen] 20 units SC BID #1 insuln.pen 08/11/17 Metoprolol(XL)Succ [Toprol Xl (Beta Luna)] 50 mg PO DAILY #30 tab 08/11/17 Mineral Oil/Petrolatum,White [Eucerin] 1 applic TOPICAL BID@0600,2200 jar 08/11 Gabapentin [Neurontin] 100 mg PO BID 11/14/17 Albuterol Inhaler [Ventolin Hfa] 2 puff INHALATION Q6HWA.RT #1 inhaler 11/19/17 Apixaban [Eliquis] 5 mg PO BID #60 tab 11/19/17 Fosfomycin Tromethamine [Monurol] 3 gm PO Q72H #3 packet 11/19/17 Isosorbide Mononitrate [Imdur] 30 mg PO DAILY #30 tab 11/19/17 Following Prescrptions Were Given to Patient: Albuterol Inhaler [Ventolin Hfa] 2 puff INHALATION Q6HWA.RT #1 inhaler Fosfomycin Tromethamine [Monurol] 3 gm PO Q72H #3 packet Isosorbide Mononitrate [Imdur] 30 mg PO DAILY #30 tab Apixaban [Eliquis] 5 mg PO BID #60 tab Primary Care Physician: Wili Nelson DO [Primary Care Provider] - In 1 Week Medical Necessity - Tobacco Use Smoking Status: Former smoker Meaningful Use Info Meaningful Use Diagnoses (Choose all that apply): None applicable Code Visit Inpatient E&M: 14723 [facility]
== END 2017-11-19 15:34 | disposition home or self-care (01) | DRG 690 ==
LOC: ED 16:20 → MS3 16:40
PROVIDERS: Hospitalist; Admitting Provider Family Medicine; Emergency Provider Emergency Medicine; Family Provider Family Medicine; PCP Family Medicine; Visit Provider Internal Medicine
DX: N30.01 Acute cystitis with hematuria (principal); D68.32 Hemorrhagic disorder due to extrinsic circulating anticoagulants; J96.11 Chronic respiratory failure with hypoxia; Z68.43 Body mass index [BMI] 50.0-59.9, adult; E11.22 Type 2 diabetes mellitus with diabetic chronic kidney disease; I12.9 Hypertensive chronic kidney disease with stage 1 through stage 4 chronic kidney disease, or unspecified chronic kidney disease; N18.3 Chronic kidney disease, stage 3 (moderate); J44.9 Chronic obstructive pulmonary disease, unspecified; E78.5 Hyperlipidemia, unspecified; G47.33 Obstructive sleep apnea (adult) (pediatric); Z99.81 Dependence on supplemental oxygen; I87.2 Venous insufficiency (chronic) (peripheral); F32.9 Major depressive disorder, single episode, unspecified; E66.01 Morbid (severe) obesity due to excess calories; B37.2 Candidiasis of skin and nail; T45.515A Adverse effect of anticoagulants, initial encounter; N40.0 Benign prostatic hyperplasia without lower urinary tract symptoms; B96.5 Pseudomonas (aeruginosa) (mallei) (pseudomallei) as the cause of diseases classified elsewhere; Z86.718 Personal history of other venous thrombosis and embolism; Z79.4 Long term (current) use of insulin; Z86.711 Personal history of pulmonary embolism; Z87.891 Personal history of nicotine dependence; D64.9 Anemia, unspecified
CPT/HCPCS: 36415; 36600; 71045; 80048; 81001; 82803; 82962; 83735; 83880; 84484; 85025; 85610; 87077; 87086; 87088; 87184; 87186; 93005; 94640; 97110; 97116; 97162; 97166; 97530; 97535; 97802; 99284; J7030; A4216

== ENCOUNTER → 2017-12-01 13:56 | Outpatient (CLI) | payer MEDICARE, OTHER, SELFPAY ==
[2017-12-01 15:40] LABS: Absolute Lymphocyte Count 0.75 X10^3/ul (0.83-4.51); Basophil# 0.02 X10^3/uL; Basophil% 0.2 % (0-1); Eosinophil# 0.07 X10^3/uL; Eosinophils% 0.7 % (0-5); Hemoglobin 13.8 g/dl (13.0-16.5); Lymphocyte # 0.75 X10^3/ul (4.0); Lymphocyte % 7.8 % (19-41); Mean Corp Hgb Conc 32.1 g/gl (32-36); Mean Corpuscular Hgb 28.5 pg (27.0-32.0); Mean Corpuscular Volume 88.8 fL (80-94); Mean Platelet Vol. 9.9 fl (6.2-12.0); Monocyte# 0.76 X10^3/uL; Monocyte% 7.9 % (0-10); Neutrophil # 7.97 X10^3/uL (2.7-7.7); Neutrophil % 83.2 % (47-70); Platelet Count 233 K/mm3 (150-450); RBC Distribution Width CV 13.7 % (11.6-14.6); Red Blood Count 4.84 M/mm3 (4.6-6.2); White Blood Count 9.6 K/mm3 (4.4-11.0)
[2017-12-01 15:48] LABS: POSITIVE COUNT NO; POSITIVE DIFFERENTIAL NO; POSITIVE MORPHOLOGY NO
[2017-12-01 15:57] LABS: Anion Gap 9 (5-15); BUN 28 mg/dL (7-18); BUN/Creat Ratio 14.9 RATIO (10-20); Calcium,Total 8.9 mg/dL (8.5-10.1); Chloride 102 mmol/L (98-107); Creatinine, Serum 1.88 mg/dL (0.70-1.30); EST Glomerular Filtration Rate 37 mL/min (>60); Est Glom Filt Rate - Afr Amer 45 mL/min (>60); Glucose 334 mg/dL (74-106); Potassium 4.3 mmol/L (3.5-5.1); Sodium Level 137 mmol/L (136-145)
[2017-12-01 16:03] LABS: Hemoglobin A1c 9.8 % (4.2-6.3)
== END ==
PROVIDERS: Family Provider Family Medicine; PCP Family Medicine; Visit Provider Family Medicine
DX: E11.29 Type 2 diabetes mellitus with other diabetic kidney complication (principal); I12.9 Hypertensive chronic kidney disease with stage 1 through stage 4 chronic kidney disease, or unspecified chronic kidney disease; E11.22 Type 2 diabetes mellitus with diabetic chronic kidney disease; N18.3 Chronic kidney disease, stage 3 (moderate)
CPT/HCPCS: 36415; 80048; 83036; 85025

== ENCOUNTER → 2017-12-09 11:04 | Outpatient (CLI) | payer MEDICARE, OTHER, SELFPAY ==
[2017-12-09 12:24] LABS: Erythrocyte Sedimentation Rate 57 mm/hr (0-20)
[2017-12-09 12:34] LABS: Absolute Lymphocyte Count 1.09 X10^3/ul (0.83-4.51); Absolute Neutrophil Count 4.5 X10^3/uL (2.0-7.7); Basophil# 0.01 X10^3/uL; Basophil% 0.2 % (0-1); Eosinophil# 0.16 X10^3/uL; Eosinophils% 2.6 % (0-5); Hematocrit 40.5 % (40-54); Lymphocyte # 1.09 X10^3/ul (4.0); Lymphocyte % 17.6 % (19-41); Mean Corp Hgb Conc 32.1 g/gl (32-36); Mean Corpuscular Hgb 28.3 pg (27.0-32.0); Mean Corpuscular Volume 88.2 fL (80-94); Mean Platelet Vol. 10.2 fl (6.2-12.0); Monocyte% 6.5 % (0-10); Neutrophil # 4.52 X10^3/uL (2.7-7.7); Neutrophil % 72.9 % (47-70); Platelet Count 229 K/mm3 (150-450); RBC Distribution Width CV 13.6 % (11.6-14.6); RBC Distribution Width SD 43.6 fl (35.1-43.9); Red Blood Count 4.59 M/mm3 (4.6-6.2); White Blood Count 6.2 K/mm3 (4.4-11.0)
[2017-12-09 12:35] LABS: POSITIVE COUNT NO; POSITIVE DIFFERENTIAL NO; POSITIVE MORPHOLOGY NO
[2017-12-09 12:47] LABS: Anion Gap 8 (5-15); BUN 29 mg/dL (7-18); BUN/Creat Ratio 15.5 RATIO (10-20); CPK Total, Creatine Kinase 72 U/L (39-308); Calcium,Total 8.8 mg/dL (8.5-10.1); Chloride 105 mmol/L (98-107); Creatinine, Serum 1.87 mg/dL (0.70-1.30); EST Glomerular Filtration Rate 37 mL/min (>60); Est Glom Filt Rate - Afr Amer 45 mL/min (>60); Glucose 309 mg/dL (74-106); Magnesium 2.1 mg/dL (1.6-2.6); Potassium 4.2 mmol/L (3.5-5.1); Sodium Level 141 mmol/L (136-145)
== END ==
PROVIDERS: Family Provider Family Medicine; PCP Family Medicine; Visit Provider Family Medicine
DX: E11.29 Type 2 diabetes mellitus with other diabetic kidney complication (principal); I12.9 Hypertensive chronic kidney disease with stage 1 through stage 4 chronic kidney disease, or unspecified chronic kidney disease; N18.3 Chronic kidney disease, stage 3 (moderate); Z51.81 Encounter for therapeutic drug level monitoring; R53.1 Weakness; R25.2 Cramp and spasm
CPT/HCPCS: 36415; 80048; 82550; 83735; 85025; 85652

== ENCOUNTER → 2018-01-22 14:52 | Outpatient (CLI) | payer MEDICARE, OTHER, SELFPAY ==
--- NOTE | 2018-01-22 15:44 | RAD_ITS ---
STUDY: X-RAY - ABDOMEN/PELVIS REASON FOR EXAM: Male, 77 years old. Acute diarrhea and bowel incontinence TECHNIQUE: Single AP view of the abdomen / pelvis. COMPARISON: None. FINDINGS: There are nonspecific gaseous bowel loops. The visualized liver, spleen and kidneys are grossly normal in size . Normal soft tissue structures. The visualized osseous structures are essentially unremarkable. RAD/Abdomen Single View IMPRESSION: Nonspecific gas pattern. Electronically Signed: Nic Dillon MD at 15:27 EDT Tel , Service support ,
[2018-01-22 17:14] LABS: Absolute Lymphocyte Count 0.52 X10^3/ul (0.83-4.51); Absolute Neutrophil Count 4.8 X10^3/uL (2.0-7.7); Basophil# 0.02 X10^3/uL; Basophil% 0.3 % (0-1); Eosinophil# 0.17 X10^3/uL; Eosinophils% 2.9 % (0-5); Hematocrit 37.8 % (40-54); Hemoglobin 12.6 g/dl (13.0-16.5); Lymphocyte # 0.52 X10^3/ul (4.0); Lymphocyte % 8.9 % (19-41); Mean Corp Hgb Conc 33.3 g/gl (32-36); Mean Corpuscular Hgb 28.9 pg (27.0-32.0); Mean Corpuscular Volume 86.7 fL (80-94); Mean Platelet Vol. 10.4 fl (6.2-12.0); Monocyte# 0.32 X10^3/uL; Monocyte% 5.5 % (0-10); Neutrophil # 4.79 X10^3/uL (2.7-7.7); Neutrophil % 82.1 % (47-70); Platelet Count 230 K/mm3 (150-450); RBC Distribution Width CV 13.1 % (11.6-14.6); RBC Distribution Width SD 40.6 fl (35.1-43.9); Red Blood Count 4.36 M/mm3 (4.6-6.2); White Blood Count 5.8 K/mm3 (4.4-11.0)
[2018-01-22 17:17] LABS: Differential Indicated SCAN CRITERIA MET; POSITIVE COUNT NO; POSITIVE DIFFERENTIAL YES; POSITIVE MORPHOLOGY NO
[2018-01-22 17:23] LABS: ALB/GLOB Ratio 0.5 RATIO (0.9-2.4); AST(SGOT) 15 U/L (15-37); Alanine Aminotransfer ALT/SGPT 20 U/L (16-61); Albumin, Serum 2.6 g/dL (3.2-5.0); Alkaline Phosphatase 101 U/L (45-117); Anion Gap 7 (5-15); BUN 26 mg/dL (7-18); BUN/Creat Ratio 13.9 RATIO (10-20); Calcium,Total 8.3 mg/dL (8.5-10.1); Chloride 105 mmol/L (98-107); Creatinine, Serum 1.87 mg/dL (0.70-1.30); EST Glomerular Filtration Rate 37 mL/min (>60); Est Glom Filt Rate - Afr Amer 45 mL/min (>60); Globulin 4.8 g/dL (2.2-4.2); Glucose 301 mg/dL (74-106); Protein, Total 7.4 g/dL (6.4-8.2); Sodium Level 136 mmol/L (136-145)
[2018-01-22 17:49] LABS: Differential Comment SCANNED
== END ==
PROVIDERS: Family Provider Family Medicine; PCP Family Medicine; Visit Provider Family Medicine
DX: R19.7 Diarrhea, unspecified (principal); R15.9 Full incontinence of feces
CPT/HCPCS: 36415; 74018; 80053; 85025; 86140

== ENCOUNTER → 2018-02-08 14:54 | Outpatient (CLI) | payer MEDICARE, OTHER, SELFPAY | PROVIDERS: Family Provider Family Medicine; PCP Family Medicine; Visit Provider Nurse Practitioner Acute Care | DX: G47.33 Obstructive sleep apnea (adult) (pediatric) (principal) | CPT/HCPCS: 98960; G0463 ==

== ENCOUNTER 2018-03-11 17:12 | Inpatient (IN) | payer MEDICARE, OTHER, SELFPAY ==
[2018-03-11] VITALS (15 sets, daily range): BP systolic 98–122; BP diastolic 41–72; PULSE 40–67; RESP 12–18; TEMP 36.6–37; O2SAT 92–98; BMI 51.5; BMI 50.5
--- NOTE | 2018-03-11 17:17 | EKG12_ITS ---
Test Reason : FALL Blood Pressure : / mmHG Vent. Rate : 042 BPM Atrial Rate : 042 BPM P-R Int : 230 ms QRS Dur : 156 ms QT Int : 496 ms P-R-T Axes : 075 -48 009 degrees QTc Int : 414 ms Marked sinus bradycardia with 1st degree A-V block Right bundle branch block Left anterior fascicular block Bifascicular block Cannot rule out Inferior infarct (cited on or before 26-JUL-2017) Confirmed by SUMMER RAZO, KARISSA ([id number]), features editor RONEL NAVAS ([id number]) on 03/17/2018 9:14:23 AM Referred By: NARESH Confirmed By:KARISSA WHEELER MD
--- NOTE | 2018-03-11 17:17 | RAD_ITS ---
STUDY: X-RAY CHEST REASON FOR EXAM: Male, 77 years old. Weakness, chest pain TECHNIQUE: Single AP portable view of the chest. COMPARISON: 11/14/2017 FINDINGS: EKG leads overlie the chest There are interstitial fibrotic changes of the lungs. There is no demonstrated pleural abnormality. Stable cardiomegaly. Normal mediastinum and denys. Normal visualized pulmonary arteries. Normal visualized aortic arch and descending thoracic aorta. There are diffuse degenerative changes of the visualized thoracic spine. Normal visualized ribs, clavicles, and shoulders. There is no demonstrated abnormality of the visualized soft tissue structures of the upper abdomen. RAD/Chest 1 View (Portable) IMPRESSION: Chronic interstitial changes, no superimposed acute pulmonary process. Stable cardiomegaly. Electronically Signed: Ren Chavez MD at 17:57 EDT , Service support ,
[2018-03-11 17:38] LABS: Absolute Lymphocyte Count 1.28 X10^3/ul (0.83-4.51); Absolute Neutrophil Count 5.5 X10^3/uL (2.0-7.7); Basophil# 0.03 X10^3/uL; Basophil% 0.4 % (0-1); Eosinophil# 0.21 X10^3/uL; Eosinophils% 2.8 % (0-5); Hematocrit 37.2 % (40-54); Hemoglobin 11.9 g/dl (13.0-16.5); Lymphocyte # 1.28 X10^3/ul (4.0); Lymphocyte % 16.9 % (19-41); Mean Corpuscular Volume 87.5 fL (80-94); Mean Platelet Vol. 9.4 fl (6.2-12.0); Monocyte# 0.56 X10^3/uL; Monocyte% 7.4 % (0-10); Neutrophil % 72.4 % (47-70); Platelet Count 189 K/mm3 (150-450); RBC Distribution Width CV 13.5 % (11.6-14.6); RBC Distribution Width SD 43.2 fl (35.1-43.9); Red Blood Count 4.25 M/mm3 (4.6-6.2); White Blood Count 7.6 K/mm3 (4.4-11.0)
[2018-03-11 17:39] LABS: POSITIVE COUNT NO; POSITIVE DIFFERENTIAL NO; POSITIVE MORPHOLOGY NO
[2018-03-11 17:58] LABS: Anion Gap 8 (5-15); BUN 24 mg/dL (7-18); BUN/Creat Ratio 12.3 RATIO (10-20); Calcium,Total 8.5 mg/dL (8.5-10.1); Chloride 106 mmol/L (98-107); Creatinine, Serum 1.95 mg/dL (0.70-1.30); EST Glomerular Filtration Rate 36 mL/min (>60); Est Glom Filt Rate - Afr Amer 43 mL/min (>60); Estimated Creatinine Clearance 34.82 ml/min; Glucose 139 mg/dL (74-106); Potassium 4.2 mmol/L (3.5-5.1); Sodium Level 139 mmol/L (136-145)
--- NOTE | 2018-03-11 18:34 | ED.DCSUM_ITS ---
- ER Visit Summary Date of Service: 03/11/18 Chief Complaint: Syncope History of Present Illness: The patient is a 77 M presenting for evaluation secondary to a syncopal episode. Patient got out of his car and was walking around to get his cane when he suffered a sudden syncopal episode. Patient reports that he felt lightheaded prior to the episode but denies that he was having any sort of chest pain shortness of breath. EMS was called when they arrived patient was noted to be bradycardic. There were time I stood him up he was presyncopal, the patient was brought to the emergency department. No recent changes in the patient's medication regimens. He denies any chest pain or shortness of breath or recent infectious signs or symptoms. Review of systems otherwise negative. Physical Examination: Vital signs notable for hypertension 98/41 bradycardia with a rate of 41. Obese male no acute distress. Moist mucous membranes. No JVD. Heart was bradycardic and regular with distant heart sounds. Lung sounds clear. Abdomen soft nontender. Back nontender. 2+ peripheral edema bilaterally symmetric, left elbow abrasion noted, patient was alert and oriented without lateralizing deficit. Test Results: EKG demonstrates right bundle branch block with a left anterior fascicular block and a first-degree AV block with a rate of [address] segments normal T waves. CBC unremarkable, chemistry shows chronic kidney disease, troponin negative, chest x-ray per radiology shows chronic changes. Emergency Department Course and Treatment: Patient presented with a syncopal episode and bradycardia. He is mentating normally in the emergency department and is bradycardic, states that his baseline heart rate is typically in the 50s but I do believe that his decreased heart rate is likely the cause of his symptoms. He has no evidence of myocardial infarction at this time. Medication review shows the patient to be on a beta-zen which could potentially be precipitating his symptoms but I believe he requires admission at this time. I discussed this case with the hospitalist. Disposition: Admission Impression: 1. Symptomatically cardia This note was generated with [employer] dictation software. It may contain incorrect words, spelling, and punctuation that were not noted in review of the chart prior to signing ED Disposition - Plan for ED Patient: Chief Complaint: Weakness Referrals: Wili Nelson DO [Primary Care Provider] -
[2018-03-11] MEDS: Atropine Sulfate 1 MG/10 ML Syringe 0.5 MG IV (18:42)
--- NOTE | 2018-03-11 19:00 | EKG12_ITS ---
Test Reason : RHYTHM CHANGE Blood Pressure : / mmHG Vent. Rate : 043 BPM Atrial Rate : 043 BPM P-R Int : 254 ms QRS Dur : 158 ms QT Int : 518 ms P-R-T Axes : 079 -44 007 degrees QTc Int : 437 ms Marked sinus bradycardia with 1st degree A-V block Left axis deviation Right bundle branch block Possible Lateral infarct (cited on or before 05-NOV-2017) Confirmed by AI RAZO, BUSHRA ([id number]), editor newspaper RONEL NAVAS ([id number]) on 03/19/2018 2:40:50 PM Referred By: TAY Confirmed By:BUSHRA CLOUD MD
--- NOTE | 2018-03-11 19:06 | PCM.HP.STD ---
Problem List (1) Symptomatic sinus bradycardia Status: Acute (2) Recurrent falls Status: Acute (3) Thromboembolism Status: Chronic (4) BPH (benign prostatic hyperplasia) Status: Chronic (5) Super obesity Status: Chronic (6) Cystitis Status: Resolved (7) Debility Status: Chronic (8) Noncompliance Status: Chronic Comment: with CPAP and follow up and with diet (9) COPD (chronic obstructive pulmonary disease) Status: Chronic (10) Type II diabetes mellitus, uncontrolled Status: Chronic (11) History of depression Status: Chronic (12) History of other venous thrombosis and embolism Status: Chronic (13) HLD (hyperlipidemia) Status: Chronic (14) HTN (hypertension) Status: Chronic (15) NILO (obstructive sleep apnea) Status: Chronic (16) Chronic renal failure, stage 3 (moderate) Status: Chronic (17) Bifascicular bundle branch block Status: Chronic (18) Colon polyps Status: Chronic (19) Family history of colon cancer Status: Chronic History of Present Illness Date of Admission: 03/11/18 Chief Complaint: Dizzy lightheaded and fall The patient is a 77 year old M With multiple comorbidities including DVT/PE, type 2 diabetes mellitus, COPD with moderate pulmonary hypertension, obstructive sleep apnea on BiPAP was brought to ER for syncope event and fall. Patient was found by EMS bradycardic, heart rate in 40s with weakness and fatigue. Earlier, patient had fall last week on face and but sustained no major injury and he did not seek medical attention. Today he fell down on left side on elbow and leg and there is mild abrasion/bruise. In ED, patient still in 40s, blood pressure 98/41 which improved 104/58. When I saw the patient, heart rate still in 40s, patient was short of breath may be chronic or acute on chronic in view of severe COPD and pulmonary hypertension. Atropine 0.5 mg IV given in 250 mL normal saline bolus ordered. Patient heart rate picked up to 67/min. EKG shows sinus bradycardia 42/min with bifascicular block right bundle branch block plus LAFB. I think, patient baseline heart rate runs in 60s. Earlier, patient was admitted in October 2017 for acute Pseudomonas cystitis complicating gross hematuria secondary to supratherapeutic INR. At that time, Coumadin was changed to Eliquis. I do not see Eliquis in his home medication list and patient and his family not clear whether he is taking are not. They deny any recent blood loss since last discharge. Past Medical History Past Medical History (Chronic Problems): Chronic Problems (Last Reviewed 02/08/18 @ 13:38 by Aicha Szymanski NP-Alisha) Thromboembolism (Chronic) BPH (benign prostatic hyperplasia) (Chronic) Super obesity (Chronic) Debility (Chronic) Noncompliance (Chronic) with CPAP and follow up and with diet COPD (chronic obstructive pulmonary disease) (Chronic) Type II diabetes mellitus, uncontrolled (Chronic) History of depression (Chronic) History of other venous thrombosis and embolism (Chronic) HLD (hyperlipidemia) (Chronic) HTN (hypertension) (Chronic) NILO (obstructive sleep apnea) (Chronic) Chronic renal failure, stage 3 (moderate) (Chronic) Bifascicular bundle branch block (Chronic) Colon polyps (Chronic) Family history of colon cancer (Chronic) Medical History: Medical History (Last Reviewed 02/08/18 @ 13:38 by ANGELINA AguileraC) Thromboembolism (Chronic) I74.9 BPH (benign prostatic hyperplasia) (Chronic) N40.0 Super obesity (Chronic) E66.9 Cystitis (Resolved) N30.90 Debility (Chronic) R53.81 Noncompliance (Chronic) Z91.19 with CPAP and follow up and with diet COPD (chronic obstructive pulmonary disease) (Chronic) J44.9 Type II diabetes mellitus, uncontrolled (Chronic) E11.65 History of depression (Chronic) Z86.59 History of other venous thrombosis and embolism (Chronic) Z86.718 HLD (hyperlipidemia) (Chronic) E78.5 HTN (hypertension) (Chronic) I10 NILO (obstructive sleep apnea) (Chronic) G47.33 Chronic renal failure, stage 3 (moderate) (Chronic) N18.3 Bifascicular bundle branch block (Chronic) I45.2 Colon polyps (Chronic) Family history of colon cancer (Chronic) Z80.0 History of kidney stones (Resolved) Z87.442 MRSA (methicillin resistant staph aureus) culture positive (Resolved) Z22.322 Allergies MARGIE Inhibitors Allergy (Unknown, Verified 03/11/18 17:19) Unknown cefepime Allergy (Verified 03/11/18 17:19) Other WEAKNESS & FALLING ipodate [Ipodate] Allergy (Verified 03/11/18 17:19) Shortness of breath levofloxacin [Levofloxacin] Allergy (Verified 03/11/18 17:19) Anaphylaxis lisinopril Allergy (Verified 03/11/18 17:19) Shortness of breath ofloxacin Allergy (Verified 03/11/18 17:19) Unknown Quinolones Allergy (Verified 03/11/18 17:19) Anaphylaxis Home Medications: Ambulatory Orders Medication Instructions Recorded Atorvastatin Calcium [Lipitor] 40 mg PO QHS 05/29/15 Citalopram [Celexa] 40 mg PO DAILY 05/29/15 Fluticasone 0.05% [Flonase Nasal 1 spray NASAL BID PRN 05/29/15 [place]] Tamsulosin HCl [Flomax] 0.8 mg PO DAILY 07/08/16 Losartan Potassium [Cozaar] 100 mg PO DAILY 07/24/17 Insulin Aspart [Novolog Flexpen] 13 units SC TIDAC #1 flexpen 08/11/17 albuterol sulfate 90 mcg/actuation 2 puff INHALATION Q4H PRN #1 ea 02/08/18 breath activated powder inhaler Aspirin E.C. [Ecotrin] 81 mg PO DAILY 03/11/18 Gabapentin [Neurontin] 300 mg PO 1700,2200 03/11/18 Insulin Detemir [Levemir FlexPen] 30 units SC BID 03/11/18 Surgical History: - - Circumcision, excision of kidney stone Psychiatric History: Depression Smoking Status: Former smoker - *Family History Maternal History Items: Cancer - Patient's mother of cancer but he is not sure what kind of cancer. Paternal History Items: Cancer - Father of colon cancer Offspring History Items: - - He has a son who is morbidly obese and suffers from breathing problems and heart problems. Review of Systems Constitutional: Reports: Weakness, Fatigue. Denies: Chills, Fever, Weight Change HEENT: Denies: Head Aches, Sinus Congestion, Sinus Drainage Cardiovascular: Denies: Chest Pain, Palpitations Respiratory: Reports: Shortness of breath at rest, Shortness of breath upon exertion. Denies: Cough, Sputum production Gastrointestinal: Denies: Abdominal Pain, Nausea, Vomiting Genitourinary: Denies: Dysuria Musculoskeletal: Denies: Joint Pain, Joint Tenderness Skin: Reports: Rash - Chronic venous hypertension with stasis dermatitis, Skin Changes Neurological: Reports: Balance problems, Incoordination. Denies: Focal weakness, Numbness, Tingling Psychiatric: Denies: Anxiety, Depression, Homicidal Ideations, Suicidal Ideations Hematologic/ Lymphatic: Denies: Easy Bruising, Easy Bleeding VTE Information - Inpt Only VTE Present on Admission: No VTE Mechan Device Prophylaxis: None Reason prophylaxis not ordered:: Procedure Not Indicated - On Eliquis Patient Problems: Active and Suspected Problems (Last Reviewed 02/08/18 @ 13:38 by Aicha Szymanski NP-C) Symptomatic sinus bradycardia (Acute) Recurrent falls (Acute) - Physical Exam General: Alert, Oriented x3, Cooperative HEENT: Atraumatic, PERRLA, EOMI, Normocephalic Neck: Supple, No JVD, Negative Carotid Bruits Lungs: Clear to auscultation, No rhonchi, No wheeze, No rales, Diminished Cardiovascular: Normal S1, Normal S2, No murmurs, Bradycardic Abdomen: Bowel Sounds Present, Soft, Non Tender, Non-Distended Extremities: Capillary Refill Less than 3 Seconds, Edema Skin: No breakdown, Rash Present - Venous stasis with chronic venous hypertension, - - Small bruise over posterior aspect of left forearm and left thigh secondary to fall. Musculoskeletal: No Tenderness to Palpation of Joints or Extremities Neurological: Cranial nerves II-XII grossly intact Psych/Mental Status: Normal Affect, Appropriate Vital Signs Temp Pulse Resp BP Pulse Ox 97.9 F 67 16 103/68 95 03/11/18 18:45 03/11/18 18:45 03/11/18 18:45 03/11/18 18:45 03/11/18 18:45 Assessment/Plan All Active Problems (Last Reviewed 02/08/18 @ 13:38 by Aicha Szymanski NP-C) Symptomatic sinus bradycardia (Acute) Recurrent falls (Acute) Cystitis (Resolved) History of kidney stones (Resolved) MRSA (methicillin resistant staph aureus) culture positive (Resolved) The patient is a 77 year old M With multiple comorbidities including DVT/PE, type 2 diabetes mellitus, COPD with moderate pulmonary hypertension, obstructive sleep apnea on BiPAP was brought to ER for syncope event and fall. Patient was found by EMS bradycardic, heart rate in 40s with weakness and fatigue. Earlier, patient had fall last week on face and but sustained no major injury and he did not seek medical attention. Today he fell down on left side on elbow and leg and there is mild abrasion/bruise. In ED, patient still in 40s, blood pressure 98/41 which improved 104/58. When I saw the patient, heart rate still in 40s, patient was short of breath may be chronic or acute on chronic in view of severe COPD and pulmonary hypertension. Atropine 0.5 mg IV given in 250 mL normal saline bolus ordered. Patient heart rate picked up to 67/min. EKG shows sinus bradycardia 42/min with bifascicular block right bundle branch block plus LAFB. I think, patient baseline heart rate runs in 60s. Earlier, patient was admitted in October 2017 for acute Pseudomonas cystitis complicating gross hematuria secondary to supratherapeutic INR. At that time, Coumadin was changed to Eliquis. I do not see Eliquis in his home medication list and patient and his family not clear whether he is taking are not. They deny any recent blood loss since last discharge. 1. Severe sinus symptomatic bradycardia, etiology unclear with chronic bifascicular block: I think patient might have underlying sick sinus syndrome TOO patient is being admitted to the stepdown unit. Monitor closely heart rate and blood pressure. Atropine as needed. If patient is further symptomatic with heart rate less than 40 will need transcutaneous pacemaker. Normal saline 500 mL bolus over 2 hours and then 100 mL/h. Monitor intake and output. Discussed with Dr. Banuelos and Dr. Cabello for consult to further evaluate bradycardia and possible need of pacemaker. 2D echo tomorrow a.m. Cycle cardiac enzymes. I do not see beta-zen on his home medication although he was discharged last time in October 2017 Patient had last echo in January 2017 which shows normal LV size with mild concentric LVH; EF 60%. No regional wall motion abnormality. 2+ TR, RVSP 54 images history of moderate pulmonary hypertension. Mitral and aortic valves were not visualized. 2. Syncope and fall probably from bradycardia episode with hypotension: As mentioned above. PT and OT. Patient denies history of coronary artery disease or [place]. Patient had last nuclear stress test in January 2017 which was negative for ischemia. 3. COPD, advanced and obstructive sleep apnea with moderate pulmonary hypertension: DuoNeb every 4 hourly as needed. BiPAP at night. 4. Acute kidney injury on CKD stage III: Currently patient creatinine is 1.95, BUN 24. Last BUN/creatinine on 11/19/2017; 19/07.69. IV fluid normal saline. Monitor kidney function and electrolytes. Recent history of DVT/PE: As mentioned above, it seems patient is not on oral anticoagulant. Patient has not filled up Eliquis from pharmacy, confirmed by the ED nursing staff. Put back on Eliquis 5 mg twice daily. Patient is high risk of bleeding in view of history of hematuria and recurrent fall. 5. Diabetes mellitus type 2: Serum blood glucoses 139 on BMP. Continue home dose of Levemir and short-acting insulin. Accu-Chek before meals and at bedtime call with [employer]) sliding scale. Other comorbidities include hypertension, dyslipidemia, CKD stage III, super morbid obesity, BPH, anxiety and depression: Home medication reconciliation done. Multiple comorbidities complicates the present care and expect difficult and delay recovery. This note was generated with [employer] dictation software. Every effort was made to ensure accuracy, however computerized technician chemical cleaning mistakes may persist. Code Visit Inpatient E&M: 40646 Init Hosp L3
--- NOTE | 2018-03-11 19:44 | ECHOCS_ITS ---
Reason For Study: Sinus Bradycardia Procedure This was a 2D Doppler, Color Flow transthoracic echocardiogram. The study was technically difficult. Did not use Definity due to increased PAP. Exam performed portable in patient room. Left Ventricle Normal LV size. Mild concentric left ventricular hypertrophy. The estimated ejection fraction is 55 %. Stage 2 diastolic dysfunction. No regional wall motion abnormalities noted. Tricuspid Valve Normal tricuspid valve. Mild (1+) tricuspid valve insufficiency. Pulmonary artery systolic pressure is 50 mmHg. Aortic Valve The aortic valve is not well visualized. Pulmonic Valve Normal pulmonic valve. Great Vessels Normal aortic root. The pulmonary artery is normal size. Normal inferior vena cava. Pericardium/Pleural No pericardial effusion. MMode/2D Measurements & Calculations LVIDd: 5.0 cm IVSd: 1.4 cm LVOT diam: 2.2 cm LVIDs: 2.9 cm LVPWd: 1.4 cm LVOT area: 3.8 cm2 RVDd: 5.4 cm FS: 42.8 % Ao root diam: 3.7 cm LAV(MOD-bp): 59.1 ml LA A4 area: 23.5 cm2 LAV(MOD-bp) Indexed: 21.3 ml/m2 LAV(MOD-sp2): 52.1 ml LAV(MOD-sp4): 59.9 ml RA A4 area: 22.5 cm2 Doppler Measurements & Calculations MV E max sander: 103.5 cm/sec Lat Peak E' Sander: 9.1 cm/sec Med Peak E' Sander: 8.0 cm/sec MV A max sander: 82.0 cm/sec E/E' lat: 11.4 E/E' med: 12.9 MV E/A: 1.3 Ao V2 max: 191.7 cm/sec LV V1 max: 98.2 cm/sec SV(LVOT): 102.6 ml Ao max P.8 mmHg LV V1 max P.9 mmHg Ao V2 mean: 139.0 cm/sec LV V1 mean P.7 mmHg Ao mean P.5 mmHg LV V1 mean: 79.0 cm/sec Ao V2 VTI: 50.2 cm LV V1 VTI: 27.2 cm GAYLA(I,D): 2.0 cm2 GAYLA(V,D): 1.9 cm2 PA V2 max: 86.5 cm/sec TR max sander: 340.8 cm/sec TR max P.4 mmHg Interpretation Summary Normal LV size. Mild concentric left ventricular hypertrophy. The estimated ejection fraction is 55 %. Stage 2 diastolic dysfunction. The study was technically limited. The study was technically difficult. Ordering Physician: Duncan Paris Referring Physician: Wili Nelson Performed By: Gayb Flood, JOSSELINE, RVT
[2018-03-11 20:21] LABS: Magnesium 2.2 mg/dL (1.6-2.6)
[2018-03-11 20:31] LABS: Bedside Glucose 120 mg/dL (70-110)
[2018-03-11] MEDS: 0.9% Normal Saline 1,000 ML 100 ML IV (21:23)
[2018-03-11] MEDS: APIXABAN 5 MG TABLET PO (22:06)
[2018-03-11] MEDS: Insulin Lispro 100 UNIT/ML INSULN.PEN SQ (22:06)
[2018-03-11] MEDS: Atorvastatin Calcium 40 MG Tablet PO (22:07)
[2018-03-11] MEDS: Gabapentin 300 MG Capsule PO (22:07)
[2018-03-11] MEDS: Glucerna Shake 120 ML LIQUID PO (22:13)
[2018-03-11 22:20] LABS: Bedside Glucose 155 mg/dL (70-110)
[2018-03-12] VITALS (26 sets, daily range): BP systolic 116–175; BP diastolic 58–82; PULSE 40–63; RESP 12–19; TEMP 36.7–37.1; O2SAT 92–98
[2018-03-12] MEDS: oxyCODONE 5 MG Tablet PO (01:06)
[2018-03-12 01:19] LABS: Mucous, Urine 0 SEEN /hpf (<or=2+); Squamous Epithelial Cells - UA 0 SEEN /hpf (0-5)
[2018-03-12 01:24] LABS: Color, Urine Yellow (Yellow); Glucose, Dipstick Normal (Normal); Ketone-Dipstick Negative (Negative); Leukocyte Esterase-Dipstick 500 /ul (Negative); Nitrite-Dipstick Negative (Negative); Occult Blood-Urine 250 /ul (Negative); Protein-Dipstick 100 mg/dl (Negative); Specific Gravity, Urine 1.015 (1.002-1.030); Urine Bilirubin Dipstick Negative (Negative); Urine Clarity Cloudy (Clear); Urine Urobilinogen Normal (Normal)
[2018-03-12 01:41] LABS: Bacteria 3+ /hpf (None Seen); White Blood Cells 50-100 SEEN /hpf (0-5)
[2018-03-12 01:42] LABS: Red Blood Cells-Urine 5-10 SEEN /hpf (0-5); Yeast-Urine 1+ /hpf (None Seen)
[2018-03-12 02:48] LABS: Absolute Lymphocyte Count 1.51 X10^3/ul (0.83-4.51); Absolute Neutrophil Count 4.8 X10^3/uL (2.0-7.7); Basophil# 0.03 X10^3/uL; Basophil% 0.4 % (0-1); Eosinophil# 0.24 X10^3/uL; Eosinophils% 3.4 % (0-5); Hematocrit 36.4 % (40-54); Hemoglobin 11.5 g/dl (13.0-16.5); Lymphocyte # 1.51 X10^3/ul (4.0); Lymphocyte % 21.2 % (19-41); Mean Corp Hgb Conc 31.6 g/gl (32-36); Mean Corpuscular Hgb 27.8 pg (27.0-32.0); Mean Corpuscular Volume 87.9 fL (80-94); Mean Platelet Vol. 9.3 fl (6.2-12.0); Monocyte# 0.51 X10^3/uL; Monocyte% 7.2 % (0-10); Neutrophil # 4.82 X10^3/uL (2.7-7.7); Neutrophil % 67.7 % (47-70); Platelet Count 171 K/mm3 (150-450); RBC Distribution Width CV 13.4 % (11.6-14.6); RBC Distribution Width SD 42.9 fl (35.1-43.9); Red Blood Count 4.14 M/mm3 (4.6-6.2); White Blood Count 7.1 K/mm3 (4.4-11.0)
[2018-03-12 02:49] LABS: POSITIVE COUNT NO; POSITIVE DIFFERENTIAL NO; POSITIVE MORPHOLOGY NO
[2018-03-12 02:59] LABS: Anion Gap 8 (5-15); BUN 25 mg/dL (7-18); BUN/Creat Ratio 13.9 RATIO (10-20); Calcium,Total 8.1 mg/dL (8.5-10.1); Chloride 106 mmol/L (98-107); EST Glomerular Filtration Rate 39 mL/min (>60); Est Glom Filt Rate - Afr Amer 47 mL/min (>60); Estimated Creatinine Clearance 37.72 ml/min; Glucose 172 mg/dL (74-106); Potassium 4.2 mmol/L (3.5-5.1); Sodium Level 137 mmol/L (136-145)
[2018-03-12] MEDS: 0.9% Normal Saline 1,000 ML 100 ML IV (06:09)
[2018-03-12 06:46] LABS: Bedside Glucose 152 mg/dL (70-110)
[2018-03-12] MEDS: Insulin Lispro 100 UNIT/ML INSULN.PEN SQ ×4 (09:08→21:11)
[2018-03-12] MEDS: Insulin Lispro 100 UNIT/ML INSULN.PEN 13 UNIT SC ×3 (09:08→17:13)
[2018-03-12] MEDS: Glucerna Shake 120 ML LIQUID PO (09:08)
[2018-03-12] MEDS: Tamsulosin HCl 0.4 MG Capsule 0.8 MG PO (09:13)
[2018-03-12] MEDS: Citalopram 40 MG TABLET PO (09:13)
[2018-03-12] MEDS: APIXABAN 5 MG TABLET PO (09:13)
[2018-03-12] MEDS: Aspirin E.C. 81 MG Tablet PO (09:13)
[2018-03-12] MEDS: Polyethylene Glycol 3350 17 GM PACKET PO (09:15)
--- NOTE | 2018-03-12 10:00 | EKG12_ITS ---
Test Reason : AM EKG Blood Pressure : / mmHG Vent. Rate : 069 BPM Atrial Rate : 069 BPM P-R Int : 304 ms QRS Dur : 094 ms QT Int : 438 ms P-R-T Axes : 000 -46 023 degrees QTc Int : 469 ms Sinus rhythm with 1st degree A-V block Left axis deviation Low voltage QRS Inferior infarct , age undetermined Abnormal ECG Confirmed by AI RAZO, BUSHRA ([id number]), material expeditor RONEL NAVAS ([id number]) on 03/19/2018 2:39:20 PM Referred By: TAY Confirmed By:BUSHRA CLOUD MD
--- NOTE | 2018-03-12 10:12 | PCM.CONS.C ---
Problem List (1) Symptomatic sinus bradycardia Status: Acute Reason for Consult Date of Consultation: 03/12/18 History of Present Illness: The patient is a 77 year old M with history of multiple medical problems including diabetes mellitus, obesity, chronic venous thromboembolism and pulmonary embolism, COPD and pulmonary hypertension. According to the patient, he was at the parking lot of restaurant when he felt lightheaded and fell to the ground. Denies any syncope or presyncope. According to the patient, these episodes of lightheadedness have happened a few times in the past as well. No history of syncope in the past neither. Next Patient also complains of occasional anterior chest discomfort. He describes it as pressure. This is precipitated with walking about 40 feet and relieved with rest. There are a few occasions at rest as well. [] Past Medical History Allergies/Adverse Reactions: Allergies MARGIE Inhibitors Allergy (Unknown, Verified 03/11/18 17:19) Unknown cefepime Allergy (Verified 03/11/18 17:19) Other WEAKNESS & FALLING ipodate [Ipodate] Allergy (Verified 03/11/18 17:19) Shortness of breath levofloxacin [Levofloxacin] Allergy (Verified 03/11/18 17:19) Anaphylaxis lisinopril Allergy (Verified 03/11/18 17:19) Shortness of breath ofloxacin Allergy (Verified 03/11/18 17:19) Unknown Quinolones Allergy (Verified 03/11/18 17:19) Anaphylaxis Home Medications: Ambulatory Orders Medication Instructions Recorded Atorvastatin Calcium [Lipitor] 40 mg PO QHS 05/29/15 Citalopram [Celexa] 40 mg PO DAILY 05/29/15 Fluticasone 0.05% [Flonase Nasal 1 spray NASAL BID PRN 05/29/15 [place]] Tamsulosin HCl [Flomax] 0.8 mg PO DAILY 07/08/16 Losartan Potassium [Cozaar] 100 mg PO DAILY 07/24/17 Insulin Aspart [Novolog Flexpen] 13 units SC TIDAC #1 flexpen 08/11/17 albuterol sulfate 90 mcg/actuation 2 puff INHALATION Q4H PRN #1 ea 02/08/18 breath activated powder inhaler Aspirin E.C. [Ecotrin] 81 mg PO DAILY 03/11/18 Gabapentin [Neurontin] 300 mg PO 1700,2200 03/11/18 Insulin Detemir [Levemir FlexPen] 30 units SC BID 03/11/18 Apixaban [Eliquis] 10 mg PO BID 03/12/18 Isosorbide Mononitrate [Imdur] 30 mg PO DAILY 03/12/18 Metoprolol Succinate 50 mg PO DAILY 03/12/18 Past Medical History (Chronic Problems): Chronic Problems (Last Reviewed 02/08/18 @ 13:38 by Aicha Szymanski NP-Alisha) Thromboembolism (Chronic) BPH (benign prostatic hyperplasia) (Chronic) Super obesity (Chronic) Debility (Chronic) Noncompliance (Chronic) with CPAP and follow up and with diet COPD (chronic obstructive pulmonary disease) (Chronic) Type II diabetes mellitus, uncontrolled (Chronic) History of depression (Chronic) History of other venous thrombosis and embolism (Chronic) HLD (hyperlipidemia) (Chronic) HTN (hypertension) (Chronic) NILO (obstructive sleep apnea) (Chronic) Chronic renal failure, stage 3 (moderate) (Chronic) Bifascicular bundle branch block (Chronic) Colon polyps (Chronic) Family history of colon cancer (Chronic) Surgical History: - - Circumcision, excision of kidney stone Psychiatric History: Depression - *Family History Maternal History Items: Cancer - Patient's mother of cancer but he is not sure what kind of cancer. Paternal History Items: Cancer - Father of colon cancer Offspring History Items: - - He has a son who is morbidly obese and suffers from breathing problems and heart problems. Smoking Status: Former smoker Review of Systems - Review of Systems General: Denies: Fever, Chills Cardiovascular: Reports: Chest Discomfort at Rest, Chest Discomfort with Exertion, PND - History of obstructive sleep apnea Respiratory: Reports: Shortness of Breath Gastrointestinal: Denies: Abdominal Discomfort Neurological: Denies: History of TIA, History of CVA Hematologic/ Lymphatic: Reports: - - History of venous thromboembolism and pulmonary embolism Subjectve: Obese. Sitting up in bed Objective: Vital Signs Temp Pulse Resp BP Pulse Ox 98.7 F 46 L 16 139/68 H 92 03/12/18 09:05 03/12/18 09:05 03/12/18 09:05 03/12/18 09:05 03/12/18 09:05 Oxygen Delivery Method Room Air Weight: 168.9 kg Body Mass Index (BMI) 50.5 Intake and Output for Last 24 Hours 03/10/18 03/11/18 03/12/18 23:59 23:59 23:59 Intake Total 1068 / 1068 628 / 628 Output Total 475 / 475 Balance 1068 / 1068 153 / 153 General: Obese HEENT: Atraumatic, Normocephalic Oral: Moist Mucosa Neck: - - Unable to assess jugular venous pulse because of body habitus Lungs: Diminished Nikolai Bases Cardiovascular: Regular Rhythm, Normal S1, Normal S2 Vascular: No Carotid Bruits Abdomen: Bowel Sounds Present, Soft Extremities: Bilateral Edema +1 Neurological: No Focal Motor or Sensory Deficit Psych/Mental Status: Appropriate 03/11/18 19:51: Magnesium 2.2, Troponin I < 0.015 03/11/18 23:24: Troponin I < 0.015 03/12/18 01:05: Urine Color Yellow, Urine Clarity Cloudy, Urine pH 6.0, Ur Specific [place] 1.015, Urine Protein 100 H, Urine Glucose (UA) Normal, Urine Ketones Negative, Urine Occult Blood 250 H, Urine Nitrite Negative, Urine Bilirubin Negative, Urine Urobilinogen Normal, Ur Leukocyte Esterase 500 H, Urine RBC 5-10 SEEN, Urine WBC 50-100 SEEN 03/12/18 02:35: Sodium 137, Potassium 4.2, Chloride 106, Carbon Dioxide 23.0, Anion Gap 8, BUN 25 H, Creatinine 1.80 H, Est GFR (MDRD) Af Amer 47 L, Est GFR (MDRD) Non-Af 39 L, BUN/Creatinine Ratio 13.9, Glucose 172 H, Calcium 8.1 L 03/12/18 02:35: WBC 7.1, RBC 4.14 L, Hgb 11.5 L, Hct 36.4 L, MCV 87.9, MCH 27.8, MCHC 31.6 L, RDW 13.4, RDW Differential 42.9, Plt Count 171, MPV 9.3, Immature Gran % (Auto) 0.100, Neut % (Auto) 67.7, Lymph % (Auto) 21.2, [place] % (Auto) 7.2, Eos % (Auto) 3.4, Baso % (Auto) 0.4, Absolute Neuts (auto) 4.8, Total Counted Not Reportable 03/12/18 02:35: Troponin I < 0.015 Rhythm: Sinus bradycardia EKG: EKG shows sinus bradycardia with sinus arrhythmia. First-degree AV block with left anterior fascicular block and right bundle branch block. Trifascicular block ECHO: Stress Test: Cardiac Cath: PCI: CT Surgery: Holter monitor: EPS: PPM: CXR: Chest CT Scan: Assessment/Plan 1. Sick sinus syndrome with trifascicular block. Symptomatic with episodes of lightheadedness and falls. Recommend permanent pacemaker. Discussed with Dr. Toscano. Will schedule for Thursday 2. History of exertional chest discomfort. Occasional rest episodes. Consider angina pectoris. Continue aspirin. Start on nitrates. Check 2D echocardiogram with Doppler. Possible coronary angiography after his permanent pacemaker placement 3. History of chronic DVT with pulmonary embolism. On Eliquis. Hold Eliquis on Thursday in anticipation of permanent pacemaker placement 4. Chronic renal insufficiency 5. Hypertension 6. Diabetes mellitus 7. COPD 8. Obstructive sleep apnea 9. Obesity 10. History of hematuria
[2018-03-12 11:01] LABS: Thyroid Stim Hormone (TSH) 1.29 uIU/mL (0.358-3.74)
[2018-03-12] MEDS: Isosorbide Mononitrate 30 MG Tablet PO (11:15)
[2018-03-12 11:26] LABS: Bedside Glucose 218 mg/dL (70-110)
--- NOTE | 2018-03-12 12:11 | CASEMGMT ---
Face to Face with patient for initial transition planning/care coordination assessment. RN CAIT introduced self and role at [facility], pt voices understanding and consents to assessment at this time. Pt is sitting up in chair in no distress at this time. Pt is A/Ox4 at this time and answers questions appropriately but slowly at times. Care providers, pharmacy, and demographics verified. See attached link. Pt voices no further concerns/needs at this time. Advised pt to ask for CM if any further questions/concerns/needs arise, voices understanding. CM to follow for any further discharge planning/needs. PLAN: [place] [facility]
--- NOTE | 2018-03-12 14:03 | PN_ITS ---
<Rolan Stiles - Last Filed: 03/12/18 14:18> Patient Problems: Active and Suspected Problems (Last Reviewed 02/08/18 @ 13:38 by BETTYE Aguilera) Symptomatic sinus bradycardia (Acute) Recurrent falls (Acute) Subjective: Pt resting comfortably in chair at [facility]. Pt denies sensation of palpitations, LH, dizziness before collapse. Denies LOC. No issues walking to the bathroom today. No CP. Pt reports this also happened one other time recently without warning, never saw his doc for it. - Physical Exam General: Alert, Oriented x3, Cooperative HEENT: Atraumatic, PERRLA, EOMI, Normocephalic Neck: Supple, No JVD, Negative Carotid Bruits Lungs: Clear to auscultation, Normal air movement Cardiovascular: Regular rate, No murmurs Abdomen: Bowel Sounds Present, Soft, Non Tender Extremities: No edema, Capillary Refill Less than 3 Seconds Skin: No rashes, No breakdown Musculoskeletal: No Tenderness to Palpation of Joints or Extremities Neurological: Cranial nerves II-XII grossly intact Psych/Mental Status: Normal Affect, Appropriate, Alert and oriented to time, place, person, mood and affect Vital Signs Temp Pulse Resp BP Pulse Ox 98.3 F 60 16 150/61 H 94 03/12/18 13:05 03/12/18 13:05 03/12/18 13:05 03/12/18 13:05 03/12/18 13:05 Oxygen Delivery Method Room Air Weight: 372 lb 5.772 oz Body Mass Index (BMI) 50.5 Intake and Output for Last 24 Hours 03/10/18 03/11/18 03/12/18 23:59 23:59 23:59 Intake Total 1068 / 1068 1833 / 1833 Output Total 475 / 475 Balance 1068 / 1068 1358 / 1358 Laboratory Tests Past 24 Hrs 03/11/18 03/11/18 03/12/18 19:51 23:24 01:05 WBC RBC Hgb Hct MCV MCH MCHC RDW RDW Differential Plt Count MPV Immature Gran % (Auto) Neut % (Auto) Lymph % (Auto) [place] % (Auto) Eos % (Auto) Baso % (Auto) Absolute Neuts (auto) Absolute Lymphs (auto) Total Counted Sodium Potassium Chloride Carbon Dioxide Anion Gap BUN Creatinine Estim Creat Clear Calc Est GFR (MDRD) Af Amer Est GFR (MDRD) Non-Af BUN/Creatinine Ratio Glucose Calcium Magnesium 2.2 Troponin I < 0.015 < 0.015 TSH Urine Color Yellow Urine Clarity Cloudy Urine pH 6.0 Ur Specific [place] 1.015 Urine Protein 100 H Urine Glucose (UA) Normal Urine Ketones Negative Urine Occult Blood 250 H Urine Nitrite Negative Urine Bilirubin Negative Urine Urobilinogen Normal Ur Leukocyte Esterase 500 H Urine RBC 5-10 SEEN Urine WBC 50-100 SEEN Ur Squamous Epith Cells 0 SEEN Urine Bacteria 3+ Urine Mucus 0 SEEN Urine Yeast 1+ 03/12/18 03/12/18 03/12/18 02:35 02:35 02:35 WBC 7.1 RBC 4.14 L Hgb 11.5 L Hct 36.4 L MCV 87.9 MCH 27.8 MCHC 31.6 L RDW 13.4 RDW Differential 42.9 Plt Count 171 MPV 9.3 Immature Gran % (Auto) 0.100 Neut % (Auto) 67.7 Lymph % (Auto) 21.2 [place] % (Auto) 7.2 Eos % (Auto) 3.4 Baso % (Auto) 0.4 Absolute Neuts (auto) 4.8 Absolute Lymphs (auto) 1.51 Total Counted Not Reportable Sodium 137 Potassium 4.2 Chloride 106 Carbon Dioxide 23.0 Anion Gap 8 BUN 25 H Creatinine 1.80 H Estim Creat Clear Calc 37.72 Est GFR (MDRD) Af Amer 47 L Est GFR (MDRD) Non-Af 39 L BUN/Creatinine Ratio 13.9 Glucose 172 H Calcium 8.1 L Magnesium Troponin I < 0.015 TSH Urine Color Urine Clarity Urine pH Ur Specific [place] Urine Protein Urine Glucose (UA) Urine Ketones Urine Occult Blood Urine Nitrite Urine Bilirubin Urine Urobilinogen Ur Leukocyte Esterase Urine RBC Urine WBC Ur Squamous Epith Cells Urine Bacteria Urine Mucus Urine Yeast 03/12/18 02:35 WBC RBC Hgb Hct MCV MCH MCHC RDW RDW Differential Plt Count MPV Immature Gran % (Auto) Neut % (Auto) Lymph % (Auto) [place] % (Auto) Eos % (Auto) Baso % (Auto) Absolute Neuts (auto) Absolute Lymphs (auto) Total Counted Sodium Potassium Chloride Carbon Dioxide Anion Gap BUN Creatinine Estim Creat Clear Calc Est GFR (MDRD) Af Amer Est GFR (MDRD) Non-Af BUN/Creatinine Ratio Glucose Calcium Magnesium Troponin I TSH 1.29 Urine Color Urine Clarity Urine pH Ur Specific [place] Urine Protein Urine Glucose (UA) Urine Ketones Urine Occult Blood Urine Nitrite Urine Bilirubin Urine Urobilinogen Ur Leukocyte Esterase Urine RBC Urine WBC Ur Squamous Epith Cells Urine Bacteria Urine Mucus Urine Yeast POC Glucose 03/12/18 03/12/18 03/11/18 11:14 06:40 22:05 POC Glucose 218 H 152 H 155 H 03/11/18 20:05 POC Glucose 120 H Medical Necessity - Tobacco Use Smoking Status: Former smoker Assessment/Plan All Active Problems (Last Reviewed 02/08/18 @ 13:38 by BETTYE Aguilera) Symptomatic sinus bradycardia (Acute) Recurrent falls (Acute) Cystitis (Resolved) History of kidney stones (Resolved) MRSA (methicillin resistant staph aureus) culture positive (Resolved) 1. Syncope and collapse - 2/2 bradycardia 1st degree block. PC on thursday. Cardiology following. Currently asymptomatic. BB blocked. Trop neg x 3. 2. COPD - stable 3. CKD III - stable 4. Hx DVT/PE - eliquis restarted. unclear why he was off 5. DMt2 with morbid obesity- continue current therapy and titrate to response. 6. HTN - hypotension improved 7. HLD - statin 8. BPH - flomax DVT ppx: eliquis DC planning: will be here at least until thursday for pacemaker. This patient was seen by Rolan Stiles PA-C under the supervision of Doctor Reinier. <Demarcus Hills - Last Filed: 03/12/18 14:35> - Physical Exam General: Alert, Cooperative, - - up in chair. groggy, but just awoken HEENT: Atraumatic, Normocephalic Oral: Moist Mucosa, No Gingival or Mucosal Lesions/ Ulcerations Lungs: Clear to auscultation, Normal air movement, No rhonchi, No wheeze Cardiovascular: Regular rate, Regular Rhythm, No murmurs Abdomen: Bowel Sounds Present, Soft, Non Tender, Non-Distended Vital Signs Temp Pulse Resp BP Pulse Ox 36.8 C 60 16 150/61 H 94 03/12/18 13:05 03/12/18 13:05 03/12/18 13:05 03/12/18 13:05 03/12/18 13:05 Oxygen Delivery Method Room Air Weight: 168.9 kg Body Mass Index (BMI) 50.5 Intake and Output for Last 24 Hours 03/10/18 03/11/18 03/12/18 23:59 23:59 23:59 Intake Total 1068 / 1068 1833 / 1833 Output Total 475 / 475 Balance 1068 / 1068 1358 / 1358 Laboratory Tests Past 24 Hrs 03/11/18 03/11/18 03/12/18 19:51 23:24 01:05 WBC RBC Hgb Hct MCV MCH MCHC RDW RDW Differential Plt Count MPV Immature Gran % (Auto) Neut % (Auto) Lymph % (Auto) [place] % (Auto) Eos % (Auto) Baso % (Auto) Absolute Neuts (auto) Absolute Lymphs (auto) Total Counted Sodium Potassium Chloride Carbon Dioxide Anion Gap BUN Creatinine Estim Creat Clear Calc Est GFR (MDRD) Af Amer Est GFR (MDRD) Non-Af BUN/Creatinine Ratio Glucose Calcium Magnesium 2.2 Troponin I < 0.015 < 0.015 TSH Urine Color Yellow Urine Clarity Cloudy Urine pH 6.0 Ur Specific [place] 1.015 Urine Protein 100 H Urine Glucose (UA) Normal Urine Ketones Negative Urine Occult Blood 250 H Urine Nitrite Negative Urine Bilirubin Negative Urine Urobilinogen Normal Ur Leukocyte Esterase 500 H Urine RBC 5-10 SEEN Urine WBC 50-100 SEEN Ur Squamous Epith Cells 0 SEEN Urine Bacteria 3+ Urine Mucus 0 SEEN Urine Yeast 1+ 03/12/18 03/12/18 03/12/18 02:35 02:35 02:35 WBC 7.1 RBC 4.14 L Hgb 11.5 L Hct 36.4 L MCV 87.9 MCH 27.8 MCHC 31.6 L RDW 13.4 RDW Differential 42.9 Plt Count 171 MPV 9.3 Immature Gran % (Auto) 0.100 Neut % (Auto) 67.7 Lymph % (Auto) 21.2 [place] % (Auto) 7.2 Eos % (Auto) 3.4 Baso % (Auto) 0.4 Absolute Neuts (auto) 4.8 Absolute Lymphs (auto) 1.51 Total Counted Not Reportable Sodium 137 Potassium 4.2 Chloride 106 Carbon Dioxide 23.0 Anion Gap 8 BUN 25 H Creatinine 1.80 H Estim Creat Clear Calc 37.72 Est GFR (MDRD) Af Amer 47 L Est GFR (MDRD) Non-Af 39 L BUN/Creatinine Ratio 13.9 Glucose 172 H Calcium 8.1 L Magnesium Troponin I < 0.015 TSH Urine Color Urine Clarity Urine pH Ur Specific [place] Urine Protein Urine Glucose (UA) Urine Ketones Urine Occult Blood Urine Nitrite Urine Bilirubin Urine Urobilinogen Ur Leukocyte Esterase Urine RBC Urine WBC Ur Squamous Epith Cells Urine Bacteria Urine Mucus Urine Yeast 03/12/18 02:35 WBC RBC Hgb Hct MCV MCH MCHC RDW RDW Differential Plt Count MPV Immature Gran % (Auto) Neut % (Auto) Lymph % (Auto) [place] % (Auto) Eos % (Auto) Baso % (Auto) Absolute Neuts (auto) Absolute Lymphs (auto) Total Counted Sodium Potassium Chloride Carbon Dioxide Anion Gap BUN Creatinine Estim Creat Clear Calc Est GFR (MDRD) Af Amer Est GFR (MDRD) Non-Af BUN/Creatinine Ratio Glucose Calcium Magnesium Troponin I TSH 1.29 Urine Color Urine Clarity Urine pH Ur Specific [place] Urine Protein Urine Glucose (UA) Urine Ketones Urine Occult Blood Urine Nitrite Urine Bilirubin Urine Urobilinogen Ur Leukocyte Esterase Urine RBC Urine WBC Ur Squamous Epith Cells Urine Bacteria Urine Mucus Urine Yeast POC Glucose 03/12/18 03/12/18 03/11/18 11:14 06:40 22:05 POC Glucose 218 H 152 H 155 H 03/11/18 20:05 POC Glucose 120 H Assessment/Plan Patient seen and examined independently. Data reviewed. I agree with the above note by the physician investigative assistant. 1. syncope * 2/2 #2 * Echo limited, but showed an EF 55%. 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 * If any further events, may need to consider a transcutaneous pacer or even a transvenous pacer. 3. VTE * hold eliquis until after PPM placement * start hep gtt for upcoming PPM (not candidate for LMWH given CKD) 4. CKD 3 * stable * avoid nephrotoxic agents * follow up with nephrology as outpt. 5. DM2 * fair control * continue Lantus + log Code Visit Inpatient E&M: [id number] [facility] Hosp L3
[2018-03-12 16:40] LABS: Bedside Glucose 193 mg/dL (70-110)
[2018-03-12 16:46] LABS: International Normalized Ratio 1.4; Prothrombin Time (Protime)PT. 17.6 SECONDS (11.7-14.9)
[2018-03-12 16:47] LABS: Partial Thromboplast Time 40.7 Seconds (24.1-36.2)
[2018-03-12] MEDS: Gabapentin 300 MG Capsule PO ×2 (17:12→21:10)
--- NOTE | 2018-03-12 19:00 | EKG12_ITS ---
Test Reason : AM EKG Blood Pressure : / mmHG Vent. Rate : 050 BPM Atrial Rate : 050 BPM P-R Int : 274 ms QRS Dur : 158 ms QT Int : 502 ms P-R-T Axes : 046 -46 009 degrees QTc Int : 457 ms Sinus bradycardia with sinus arrhythmia with 1st degree A-V block Right bundle branch block Left anterior fascicular block Bifascicular block Confirmed by AI RAZO, BUSHRA ([id number]), pictures editor RONEL NAVAS ([id number]) on 03/19/2018 2:40:21 PM Referred By: TAY Confirmed By:BUSHRA CLOUD MD
[2018-03-12] MEDS: Atorvastatin Calcium 40 MG Tablet PO (21:10)
[2018-03-12] MEDS: HEPARIN/D5w 25,000 UNITS 25,000 UNITS/250 ML IV.SOLN. 20 UNITS IV (21:13)
[2018-03-12 23:01] LABS: Bedside Glucose 173 mg/dL (70-110)
[2018-03-13] VITALS (12 sets, daily range): BP systolic 110–188; BP diastolic 59–82; PULSE 54–65; RESP 16–18; TEMP 36.6–36.9; O2SAT 93–97
[2018-03-13] MEDS: Losartan Potassium 100 MG Tablet PO (01:07)
[2018-03-13 03:34] LABS: Absolute Lymphocyte Count 1.44 X10^3/ul (0.83-4.51); Absolute Neutrophil Count 3.9 X10^3/uL (2.0-7.7); Basophil# 0.03 X10^3/uL; Basophil% 0.5 % (0-1); Eosinophil# 0.26 X10^3/uL; Eosinophils% 4.3 % (0-5); Hematocrit 36.2 % (40-54); Hemoglobin 11.5 g/dl (13.0-16.5); Lymphocyte # 1.44 X10^3/ul (4.0); Lymphocyte % 23.8 % (19-41); Mean Corp Hgb Conc 31.8 g/gl (32-36); Mean Corpuscular Hgb 28.2 pg (27.0-32.0); Mean Corpuscular Volume 88.7 fL (80-94); Mean Platelet Vol. 9.3 fl (6.2-12.0); Monocyte# 0.44 X10^3/uL; Monocyte% 7.3 % (0-10); Neutrophil # 3.86 X10^3/uL (2.7-7.7); Neutrophil % 63.9 % (47-70); Platelet Count 157 K/mm3 (150-450); RBC Distribution Width CV 13.3 % (11.6-14.6); RBC Distribution Width SD 43.2 fl (35.1-43.9); Red Blood Count 4.08 M/mm3 (4.6-6.2)
[2018-03-13 03:35] LABS: POSITIVE COUNT NO; POSITIVE DIFFERENTIAL NO; POSITIVE MORPHOLOGY NO
[2018-03-13 03:48] LABS: Partial Thromboplast Time 98.6 Seconds (24.1-36.2)
[2018-03-13 04:18] LABS: Anion Gap 7 (5-15); BUN 22 mg/dL (7-18); BUN/Creat Ratio 13.3 RATIO (10-20); Calcium,Total 8.1 mg/dL (8.5-10.1); Chloride 109 mmol/L (98-107); Creatinine, Serum 1.66 mg/dL (0.70-1.30); EST Glomerular Filtration Rate 43 mL/min (>60); Est Glom Filt Rate - Afr Amer 52 mL/min (>60); Glucose 122 mg/dL (74-106); Potassium 4.1 mmol/L (3.5-5.1); Sodium Level 139 mmol/L (136-145)
[2018-03-13 07:01] LABS: Bedside Glucose 142 mg/dL (70-110)
[2018-03-13] MEDS: Aspirin E.C. 81 MG Tablet PO (09:05)
[2018-03-13] MEDS: Citalopram 40 MG TABLET PO (09:05)
[2018-03-13] MEDS: Insulin Lispro 100 UNIT/ML INSULN.PEN 13 UNIT SC ×3 (09:05→17:51)
[2018-03-13] MEDS: Isosorbide Mononitrate 30 MG Tablet PO (09:06)
[2018-03-13] MEDS: Tamsulosin HCl 0.4 MG Capsule 0.8 MG PO (09:06)
[2018-03-13] MEDS: Polyethylene Glycol 3350 17 GM PACKET PO (09:09)
[2018-03-13 09:31] LABS: Partial Thromboplast Time 74.7 Seconds (24.1-36.2)
[2018-03-13] MEDS: HEPARIN/D5w 25,000 UNITS 25,000 UNITS/250 ML IV.SOLN. 20 UNITS IV (10:31)
[2018-03-13] MEDS: Insulin Lispro 100 UNIT/ML INSULN.PEN SQ ×2 (11:44→21:36)
--- NOTE | 2018-03-13 11:50 | PCM.PN.CARD ---
Subjectve: No complaints. No chest pain. No lightheadedness or dizziness Objective: Vital Signs Temp Pulse Resp BP Pulse Ox 97.9 F 60 17 181/76 H 97 03/13/18 09:04 03/13/18 09:04 03/13/18 09:04 03/13/18 09:04 03/13/18 09:04 Oxygen Delivery Method Room Air Weight: 168.9 kg Body Mass Index (BMI) 50.5 Intake and Output for Last 24 Hours 03/11/18 03/12/18 03/13/18 23:59 23:59 23:59 Intake Total 1068 / 1068 2426 / 2426 645 / 645 Output Total 975 / 975 1500 / 1500 Balance 1068 / 1068 1451 / 1451 -855 / -855 General: Awake, Alert, Oriented x 3, No Acute Distress HEENT: Atraumatic Oral: Moist Mucosa Neck: Supple Lungs: Clear to auscultation Cardiovascular: Regular Rhythm, Normal S1, Normal S2 Abdomen: Bowel Sounds Present, Soft Extremities: Bilateral Edema +2 Neurological: No Focal Motor or Sensory Deficit Psych/Mental Status: Appropriate 03/12/18 15:20: PT 17.6 H, INR 1.4, APTT 40.7 H 03/13/18 03:17: WBC 6.0, RBC 4.08 L, Hgb 11.5 L, Hct 36.2 L, MCV 88.7, MCH 28.2, MCHC 31.8 L, RDW 13.3, RDW Differential 43.2, Plt Count 157, MPV 9.3, Immature Gran % (Auto) 0.200, Neut % (Auto) 63.9, Lymph % (Auto) 23.8, [place] % (Auto) 7.3, Eos % (Auto) 4.3, Baso % (Auto) 0.5, Absolute Neuts (auto) 3.9, Total Counted Not Reportable 03/13/18 03:17: Sodium 139, Potassium 4.1, Chloride 109 H, Carbon Dioxide 23.0, Anion Gap 7, BUN 22 H, Creatinine 1.66 H, Est GFR (MDRD) Af Amer 52 L, Est GFR (MDRD) Non-Af 43 L, BUN/Creatinine Ratio 13.3, Glucose 122 H, Calcium 8.1 L 03/13/18 03:17: APTT 98.6 H* 03/13/18 09:06: APTT 74.7 H Rhythm: Sinus bradycardia EKG: ECHO: Stress Test: Cardiac Cath: PCI: CT Surgery: Holter monitor: EPS: PPM: CXR: Chest CT Scan: Medical Necessity - Tobacco Use Smoking Status: Former smoker Assessment/Plan 1. Sick sinus syndrome with trifascicular block. Symptomatic with episodes of lightheadedness and falls. Recommend permanent pacemaker. Discussed with Dr. Toscano. Scheduled for Thursday 2. Possible angina pectoris. No episodes since hospitalization. Will start on beta blockers once permanent pacemaker is placed. Stress test versus angiography after permanent pacemaker placement 3. History of chronic DVT with pulmonary embolism. On Eliquis. Hold Eliquis on Thursday in anticipation of permanent pacemaker placement 4. Chronic renal insufficiency 5. Hypertension 6. Diabetes mellitus 7. COPD 8. Obstructive sleep apnea 9. Obesity 10. History of hematuria
--- NOTE | 2018-03-13 11:54 | PN.CARD_ITS ---
Subjectve: No complaints. No chest pain. No lightheadedness or dizziness Objective: Vital Signs Temp Pulse Resp BP Pulse Ox 97.9 F 60 17 181/76 H 97 03/13/18 09:04 03/13/18 09:04 03/13/18 09:04 03/13/18 09:04 03/13/18 09:04 Oxygen Delivery Method Room Air Weight: 168.9 kg Body Mass Index (BMI) 50.5 Intake and Output for Last 24 Hours 03/11/18 03/12/18 03/13/18 23:59 23:59 23:59 Intake Total 1068 / 1068 2426 / 2426 645 / 645 Output Total 975 / 975 1500 / 1500 Balance 1068 / 1068 1451 / 1451 -855 / -855 General: Awake, Alert, Oriented x 3, No Acute Distress HEENT: Atraumatic Oral: Moist Mucosa Neck: Supple Lungs: Clear to auscultation Cardiovascular: Regular Rhythm, Normal S1, Normal S2 Abdomen: Bowel Sounds Present, Soft Extremities: Bilateral Edema +2 Neurological: No Focal Motor or Sensory Deficit Psych/Mental Status: Appropriate 03/12/18 15:20: PT 17.6 H, INR 1.4, APTT 40.7 H 03/13/18 03:17: WBC 6.0, RBC 4.08 L, Hgb 11.5 L, Hct 36.2 L, MCV 88.7, MCH 28.2 , MCHC 31.8 L, RDW 13.3, RDW Differential 43.2, Plt Count 157, MPV 9.3, Immature Gran % (Auto) 0.200, Neut % (Auto) 63.9, Lymph % (Auto) 23.8, [place] % ( Auto) 7.3, Eos % (Auto) 4.3, Baso % (Auto) 0.5, Absolute Neuts (auto) 3.9, Total Counted Not Reportable 03/13/18 03:17: Sodium 139, Potassium 4.1, Chloride 109 H, Carbon Dioxide 23.0, Anion Gap 7, BUN 22 H, Creatinine 1.66 H, Est GFR (MDRD) Af Amer 52 L, Est GFR ( MDRD) Non-Af 43 L, BUN/Creatinine Ratio 13.3, Glucose 122 H, Calcium 8.1 L 03/13/18 03:17: APTT 98.6 H* 03/13/18 09:06: APTT 74.7 H Rhythm: Sinus bradycardia EKG: ECHO: Stress Test: Cardiac Cath: PCI: CT Surgery: Holter monitor: EPS: PPM: CXR: Chest CT Scan: Medical Necessity - Tobacco Use Smoking Status: Former smoker Assessment/Plan 1. Sick sinus syndrome with trifascicular block. Symptomatic with episodes of lightheadedness and falls. Recommend permanent pacemaker. Discussed with Dr. Toscano. Scheduled for Thursday 2. Possible angina pectoris. No episodes since hospitalization. Will start on beta blockers once permanent pacemaker is placed. Stress test versus angiography after permanent pacemaker placement 3. History of chronic DVT with pulmonary embolism. On Eliquis. Hold Eliquis on Thursday in anticipation of permanent pacemaker placement 4. Chronic renal insufficiency 5. Hypertension 6. Diabetes mellitus 7. COPD 8. Obstructive sleep apnea 9. Obesity 10. History of hematuria
[2018-03-13 11:56] LABS: Bedside Glucose 240 mg/dL (70-110)
[2018-03-13 13:27] LABS: Partial Thromboplast Time 67.7 Seconds (24.1-36.2)
--- NOTE | 2018-03-13 15:00 | PN_ITS ---
Patient Problems: Active and Suspected Problems (Last Reviewed 02/08/18 @ 13:38 by BETTYE Aguilera) Symptomatic sinus bradycardia (Acute) Recurrent falls (Acute) Subjective: no new complaints. Vitals/I&O's: Vital Signs Temp Pulse Resp BP Pulse Ox 36.7 C 55 L 18 123/66 H 96 03/13/18 14:58 03/13/18 14:58 03/13/18 14:58 03/13/18 14:58 03/13/18 14:58 Oxygen Delivery Method Room Air Weight: 168.9 kg Body Mass Index (BMI) 50.5 Intake and Output for Last 24 Hours 03/11/18 03/12/18 03/13/18 23:59 23:59 23:59 Intake Total 1068 / 1068 2426 / 2426 645 / 645 Output Total 975 / 975 1500 / 1500 Balance 1068 / 1068 1451 / 1451 -855 / -855 General: Alert, No apparent distress HEENT: Atraumatic, Normocephalic Oral: Moist Mucosa, No Gingival or Mucosal Lesions/ Ulcerations Neck: No Nodes, Thyroid Normal Size and Texture Lungs: Clear to auscultation, Normal air movement, No rhonchi, No wheeze Cardiovascular: Regular rate, Regular Rhythm, Normal S1, Normal S2, No murmurs Abdomen: Bowel Sounds Present, Soft, Non Tender, Non-Distended Laboratory Results 03/12/18 15:20: PT 17.6 H, INR 1.4, APTT 40.7 H 03/12/18 16:30: POC Glucose 193 H 03/12/18 21:06: POC Glucose 173 H 03/13/18 03:17: WBC 6.0, RBC 4.08 L, Hgb 11.5 L, Hct 36.2 L, MCV 88.7, MCH 28.2 , MCHC 31.8 L, RDW 13.3, RDW Differential 43.2, Plt Count 157, MPV 9.3, Immature Gran % (Auto) 0.200, Neut % (Auto) 63.9, Lymph % (Auto) 23.8, [place] % ( Auto) 7.3, Eos % (Auto) 4.3, Baso % (Auto) 0.5, Absolute Neuts (auto) 3.9, Absolute Lymphs (auto) 1.44, Total Counted Not Reportable 03/13/18 03:17: Sodium 139, Potassium 4.1, Chloride 109 H, Carbon Dioxide 23.0, Anion Gap 7, BUN 22 H, Creatinine 1.66 H, Estim Creat Clear Calc 40.90, Est GFR (MDRD) Af Amer 52 L, Est GFR (MDRD) Non-Af 43 L, BUN/Creatinine Ratio 13.3, Glucose 122 H, Calcium 8.1 L 03/13/18 03:17: APTT 98.6 H* 03/13/18 06:52: POC Glucose 142 H 03/13/18 09:06: APTT 74.7 H 03/13/18 11:41: POC Glucose 240 H 03/13/18 13:02: APTT 67.7 H Current Medications Acetaminophen (Tylenol) 650 mg PO Q6H PRN PRN PRN Reason: Mild Pain (scale 0-3)/T>100.7 Al Hydroxide/Mg Hydroxide (Mylanta Ii) 30 ml PO Q6H PRN PRN PRN Reason: Gastric Burning Aspirin (Ecotrin) 81 mg PO DAILY [facility] Last Admin: 03/13/18 09:05 Dose: 81 mg Atorvastatin Calcium (Lipitor) 40 mg PO QHS [facility] Last Admin: 03/12/18 21:10 Dose: 40 mg Atropine Sulfate () 0.5 mg IV Q2H PRN PRN Reason: bradycardia, HR<40/M &SBP<90 Bisacodyl (Dulcolax) 10 mg RECTAL DAILY PRN PRN PRN Reason: Constipation Citalopram Hydrobromide (Celexa) 40 mg PO DAILY [facility] Last Admin: 03/13/18 09:05 Dose: 40 mg Dextrose (D50w Syringe) 0 gm IV X1 PRN; Protocol PRN Reason: Hypoglycemia Docusate Sodium (Colace) 200 mg PO BID PRN PRN PRN Reason: Constipation Fluticasone Propionate (Flonase Nasal [place]) 1 spray NASAL BID PRN PRN Reason: NASAL CONGESTION Gabapentin (Neurontin) 300 mg PO BID@1700,2200 [facility] Last Admin: 03/12/18 21:10 Dose: 300 mg Glucagon () 1 mg IM .X1 PRN PRN Reason: Hypoglycemia Heparin Sodium (Porcine) (Heparin Na) 0 unit IV UD PRN PRN Reason: Protocol Heparin Sodium/Dextrose () 25,000 units in 250 mls @ 20 mls/hr IV .[id number] [facility] ; As Directed PRN Reason: Protocol Last Admin: 03/13/18 10:31 Dose: 20 mls/hr Insulin Glargine (Lantus (Bkc)) 30 units SC BID [facility] Last Admin: 03/13/18 09:06 Dose: 30 u Insulin Human Lispro (Humalog Kwikpen (Bkc)) 13 unit SC TIDAC [facility] Last Admin: 03/13/18 11:43 Dose: 13 u Insulin Human Lispro (Humalog Kwikpen (Bkc)) 0 unit SQ ACHS [facility] PRN Reason: Protocol Last Admin: 03/13/18 11:44 Dose: 4 u Isosorbide Mononitrate (Imdur) 30 mg PO DAILY [facility] Last Admin: 03/13/18 09:06 Dose: 30 mg Losartan Potassium (Cozaar) 100 mg PO DAILY [facility] Last Admin: 03/13/18 01:07 Dose: 100 mg Magnesium Hydroxide (Milk Of Magnesia) 30 ml PO DAILY PRN PRN PRN Reason: Constipation Ondansetron HCl (Zofran) 4 mg IV Q6H PRN PRN PRN Reason: NAUSEA Oxycodone HCl (Oxyir) 5 mg PO Q4H PRN PRN PRN Reason: Moderate Pain (pain scale 4-5) Last Admin: 03/12/18 01:06 Dose: 5 mg Polyethylene Glycol (Miralax) 17 gm PO DAILY [facility] Last Admin: 03/13/18 09:09 Dose: 17 gm Sodium Chloride () 5 - 30 ml IV UD PRN PRN Reason: SALINE FLUSH Tamsulosin HCl (Flomax) 0.8 mg PO DAILY [facility] Last Admin: 03/13/18 09:06 Dose: 0.8 mg Medical Necessity - Tobacco Use Smoking Status: Former smoker Assessment/Plan All Active Problems (Last Reviewed 02/08/18 @ 13:38 by BETTYE Aguilera) Symptomatic sinus bradycardia (Acute) Recurrent falls (Acute) Cystitis (Resolved) History of kidney stones (Resolved) MRSA (methicillin resistant staph aureus) culture positive (Resolved) 1. syncope * 2/2 #2 * Echo limited, but showed an EF 55%. 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 * If any further events, may need to consider a transcutaneous pacer or even a transvenous pacer. 3. VTE * hold eliquis until after PPM placement * start hep gtt for upcoming PPM (not candidate for LMWH given CKD) 4. CKD 3 * stable * avoid nephrotoxic agents * follow up with nephrology as outpt. 5. DM2 * fair control * continue Lantus + log Code Visit Inpatient E&M: [id number] [facility] Hosp L2
[2018-03-13 17:00] LABS: Bedside Glucose 215 mg/dL (70-110)
[2018-03-13] MEDS: Gabapentin 300 MG Capsule PO ×2 (17:51→21:33)
[2018-03-13 20:19] LABS: Partial Thromboplast Time 76.6 Seconds (24.1-36.2)
[2018-03-13 21:21] LABS: Bedside Glucose 169 mg/dL (70-110)
[2018-03-13] MEDS: Atorvastatin Calcium 40 MG Tablet PO (21:33)
[2018-03-13] MEDS: hydrALAZINE 10 MG Tablet PO (21:36)
[2018-03-14] VITALS (12 sets, daily range): BP systolic 116–176; BP diastolic 67–98; PULSE 52–91; RESP 14–16; TEMP 36.4–37.1; O2SAT 93–98
[2018-03-14] MEDS: HEPARIN/D5w 25,000 UNITS 25,000 UNITS/250 ML IV.SOLN. 20 UNITS IV ×2 (00:26→13:50)
[2018-03-14 04:20] LABS: Absolute Lymphocyte Count 1.27 X10^3/ul (0.83-4.51); Absolute Neutrophil Count 4.2 X10^3/uL (2.0-7.7); Basophil# 0.03 X10^3/uL; Basophil% 0.5 % (0-1); Eosinophil# 0.33 X10^3/uL; Eosinophils% 5.1 % (0-5); Hematocrit 38.9 % (40-54); Hemoglobin 12.8 g/dl (13.0-16.5); Lymphocyte # 1.27 X10^3/ul (4.0); Lymphocyte % 19.6 % (19-41); Mean Corp Hgb Conc 32.9 g/gl (32-36); Mean Corpuscular Hgb 28.8 pg (27.0-32.0); Mean Corpuscular Volume 87.6 fL (80-94); Mean Platelet Vol. 9.6 fl (6.2-12.0); Monocyte# 0.67 X10^3/uL; Monocyte% 10.3 % (0-10); Neutrophil # 4.17 X10^3/uL (2.7-7.7); Neutrophil % 64.3 % (47-70); Platelet Count 206 K/mm3 (150-450); RBC Distribution Width SD 40.5 fl (35.1-43.9); Red Blood Count 4.44 M/mm3 (4.6-6.2); White Blood Count 6.5 K/mm3 (4.4-11.0)
[2018-03-14 04:21] LABS: POSITIVE COUNT NO; POSITIVE DIFFERENTIAL NO; POSITIVE MORPHOLOGY NO
[2018-03-14 04:30] LABS: Partial Thromboplast Time 81.4 Seconds (24.1-36.2)
[2018-03-14 04:33] LABS: Anion Gap 9 (5-15); BUN 19 mg/dL (7-18); BUN/Creat Ratio 11.9 RATIO (10-20); Chloride 105 mmol/L (98-107); Creatinine, Serum 1.59 mg/dL (0.70-1.30); EST Glomerular Filtration Rate 45 mL/min (>60); Est Glom Filt Rate - Afr Amer 55 mL/min (>60); Glucose 110 mg/dL (74-106); Potassium 4.1 mmol/L (3.5-5.1); Sodium Level 140 mmol/L (136-145)
[2018-03-14 06:56] LABS: Bedside Glucose 121 mg/dL (70-110)
[2018-03-14] MEDS: Insulin Lispro 100 UNIT/ML INSULN.PEN 13 UNIT SC ×3 (08:45→17:32)
[2018-03-14] MEDS: Aspirin E.C. 81 MG Tablet PO (08:46)
[2018-03-14] MEDS: Losartan Potassium 100 MG Tablet PO (08:46)
[2018-03-14] MEDS: Citalopram 40 MG TABLET PO (08:46)
[2018-03-14] MEDS: Tamsulosin HCl 0.4 MG Capsule 0.8 MG PO (08:47)
[2018-03-14] MEDS: Isosorbide Mononitrate 30 MG Tablet PO (08:47)
[2018-03-14] MEDS: Polyethylene Glycol 3350 17 GM PACKET PO (08:49)
--- NOTE | 2018-03-14 10:40 | PCM.PN.CARD ---
Subjectve: Denies any complaints Objective: Vital Signs Temp Pulse Resp BP Pulse Ox 97.6 F L 64 14 166/85 H 96 03/14/18 08:28 03/14/18 08:28 03/14/18 08:28 03/14/18 08:28 03/14/18 08:28 Oxygen Delivery Method Room Air Weight: 168.9 kg Body Mass Index (BMI) 50.5 Intake and Output for Last 24 Hours 03/12/18 03/13/18 03/14/18 23:59 23:59 23:59 Intake Total 2426 / 2426 1359 / 1359 121 / 121 Output Total 975 / 975 1500 / 1500 Balance 1451 / 1451 -141 / -141 121 / 121 General: Awake, Alert, Oriented x 3 Neck: Supple Lungs: Diminished Nikolai Bases Cardiovascular: Regular Rhythm, Normal S1, Normal S2 Extremities: Bilateral Edema +1 Psych/Mental Status: Appropriate 03/13/18 13:02: APTT 67.7 H 03/13/18 20:00: APTT 76.6 H 03/14/18 04:10: WBC 6.5, RBC 4.44 L, Hgb 12.8 L, Hct 38.9 L, MCV 87.6, MCH 28.8, MCHC 32.9, RDW 13.0, RDW Differential 40.5, Plt Count 206, MPV 9.6, Immature Gran % (Auto) 0.200, Neut % (Auto) 64.3, Lymph % (Auto) 19.6, [place] % (Auto) 10.3 H, Eos % (Auto) 5.1 H, Baso % (Auto) 0.5, Absolute Neuts (auto) 4.2, Total Counted Not Reportable 03/14/18 04:10: Sodium 140, Potassium 4.1, Chloride 105, Carbon Dioxide 26.0, Anion Gap 9, BUN 19 H, Creatinine 1.59 H, Est GFR (MDRD) Af Amer 55 L, Est GFR (MDRD) Non-Af 45 L, BUN/Creatinine Ratio 11.9, Glucose 110 H, Calcium 9.0 03/14/18 04:10: APTT 81.4 H Rhythm: Sinus bradycardia. First-degree AV block. EKG: ECHO: Stress Test: Cardiac Cath: PCI: CT Surgery: Holter monitor: EPS: PPM: CXR: Chest CT Scan: Medical Necessity - Tobacco Use Smoking Status: Former smoker Assessment/Plan 1. Sick sinus syndrome with trifascicular block. Symptomatic with episodes of lightheadedness and falls. For permanent pacemaker tomorrow. PPM is also indicated as he has history of angina pectoris and we will need to give him beta-blockers for that. Need backup pacemaker. 2. Possible angina pectoris. No episodes since hospitalization. Will start on beta blockers once permanent pacemaker is placed. Recommend pharmacological stress test after pacemaker placed. 3. History of chronic DVT with pulmonary embolism. On Eliquis. Hold Eliquis on Thursday in anticipation of permanent pacemaker placement 4. Chronic renal insufficiency 5. Hypertension. Start on diuretics. Monitor creatinine 6. Diabetes mellitus 7. COPD 8. Obstructive sleep apnea 9. Obesity 10. History of hematuria 11. Peripheral edema. History of chronic DVT. Also diastolic dysfunction. Obese. Likely venous incompetence as well. Start on diuretics as noted above
--- NOTE | 2018-03-14 10:45 | PN.CARD_ITS ---
Subjectve: Denies any complaints Objective: Vital Signs Temp Pulse Resp BP Pulse Ox 97.6 F L 64 14 166/85 H 96 03/14/18 08:28 03/14/18 08:28 03/14/18 08:28 03/14/18 08:28 03/14/18 08:28 Oxygen Delivery Method Room Air Weight: 168.9 kg Body Mass Index (BMI) 50.5 Intake and Output for Last 24 Hours 03/12/18 03/13/18 03/14/18 23:59 23:59 23:59 Intake Total 2426 / 2426 1359 / 1359 121 / 121 Output Total 975 / 975 1500 / 1500 Balance 1451 / 1451 -141 / -141 121 / 121 General: Awake, Alert, Oriented x 3 Neck: Supple Lungs: Diminished Nikolai Bases Cardiovascular: Regular Rhythm, Normal S1, Normal S2 Extremities: Bilateral Edema +1 Psych/Mental Status: Appropriate 03/13/18 13:02: APTT 67.7 H 03/13/18 20:00: APTT 76.6 H 03/14/18 04:10: WBC 6.5, RBC 4.44 L, Hgb 12.8 L, Hct 38.9 L, MCV 87.6, MCH 28.8 , MCHC 32.9, RDW 13.0, RDW Differential 40.5, Plt Count 206, MPV 9.6, Immature Gran % (Auto) 0.200, Neut % (Auto) 64.3, Lymph % (Auto) 19.6, [place] % (Auto) 10.3 H, Eos % (Auto) 5.1 H, Baso % (Auto) 0.5, Absolute Neuts (auto) 4.2, Total Counted Not Reportable 03/14/18 04:10: Sodium 140, Potassium 4.1, Chloride 105, Carbon Dioxide 26.0, Anion Gap 9, BUN 19 H, Creatinine 1.59 H, Est GFR (MDRD) Af Amer 55 L, Est GFR ( MDRD) Non-Af 45 L, BUN/Creatinine Ratio 11.9, Glucose 110 H, Calcium 9.0 03/14/18 04:10: APTT 81.4 H Rhythm: Sinus bradycardia. First-degree AV block. EKG: ECHO: Stress Test: Cardiac Cath: PCI: CT Surgery: Holter monitor: EPS: PPM: CXR: Chest CT Scan: Medical Necessity - Tobacco Use Smoking Status: Former smoker Assessment/Plan 1. Sick sinus syndrome with trifascicular block. Symptomatic with episodes of lightheadedness and falls. For permanent pacemaker tomorrow. PPM is also indicated as he has history of angina pectoris and we will need to give him beta -blockers for that. Need backup pacemaker. 2. Possible angina pectoris. No episodes since hospitalization. Will start on beta blockers once permanent pacemaker is placed. Recommend pharmacological stress test after pacemaker placed. 3. History of chronic DVT with pulmonary embolism. On Eliquis. Hold Eliquis on Thursday in anticipation of permanent pacemaker placement 4. Chronic renal insufficiency 5. Hypertension. Start on diuretics. Monitor creatinine 6. Diabetes mellitus 7. COPD 8. Obstructive sleep apnea 9. Obesity 10. History of hematuria 11. Peripheral edema. History of chronic DVT. Also diastolic dysfunction. Obese. Likely venous incompetence as well. Start on diuretics as noted above
[2018-03-14] MEDS: Furosemide 40 MG Tablet PO (11:58)
[2018-03-14] MEDS: Insulin Lispro 100 UNIT/ML INSULN.PEN SQ ×3 (11:59→21:17)
[2018-03-14 12:10] LABS: Bedside Glucose 206 mg/dL (70-110)
--- NOTE | 2018-03-14 13:14 | PCM.PROGNOTE ---
<Rolan Stiles - Last Filed: 03/14/18 13:14> Patient Problems: Active and Suspected Problems (Last Reviewed 02/08/18 @ 13:38 by BETTYE Aguilera) Symptomatic sinus bradycardia (Acute) Recurrent falls (Acute) Subjective: No complaints. No dizziness, LH, SOB, palpitations, cp, pressure, tightness. Compliant with own CPAP qhs. - Physical Exam General: Alert, Oriented x3, Cooperative HEENT: Atraumatic, PERRLA, EOMI, Normocephalic Neck: Supple, No JVD, Negative Carotid Bruits Lungs: Clear to auscultation, Normal air movement Cardiovascular: Regular rate, No murmurs Abdomen: Bowel Sounds Present, Soft, Non Tender Extremities: No edema, Capillary Refill Less than 3 Seconds Skin: No rashes, No breakdown Musculoskeletal: No Tenderness to Palpation of Joints or Extremities Neurological: Cranial nerves II-XII grossly intact Psych/Mental Status: Normal Affect, Appropriate Vital Signs Temp Pulse Resp BP Pulse Ox 97.6 F L 68 14 166/85 H 96 03/14/18 08:28 03/14/18 12:25 03/14/18 08:28 03/14/18 08:28 03/14/18 08:28 Oxygen Delivery Method Room Air Weight: 372 lb 5.772 oz Body Mass Index (BMI) 50.5 Intake and Output for Last 24 Hours 03/12/18 03/13/18 03/14/18 23:59 23:59 23:59 Intake Total 2426 / 2426 1359 / 1359 512 / 512 Output Total 975 / 975 1500 / 1500 Balance 1451 / 1451 -141 / -141 512 / 512 Laboratory Tests Past 24 Hrs 03/13/18 03/13/18 03/14/18 13:02 20:00 04:10 WBC 6.5 RBC 4.44 L Hgb 12.8 L Hct 38.9 L MCV 87.6 MCH 28.8 MCHC 32.9 RDW 13.0 RDW Differential 40.5 Plt Count 206 MPV 9.6 Immature Gran % (Auto) 0.200 Neut % (Auto) 64.3 Lymph % (Auto) 19.6 [place] % (Auto) 10.3 H Eos % (Auto) 5.1 H Baso % (Auto) 0.5 Absolute Neuts (auto) 4.2 Absolute Lymphs (auto) 1.27 Total Counted Not Reportable APTT 67.7 H 76.6 H Sodium Potassium Chloride Carbon Dioxide Anion Gap BUN Creatinine Estim Creat Clear Calc Est GFR (MDRD) Af Amer Est GFR (MDRD) Non-Af BUN/Creatinine Ratio Glucose Calcium MRSA (PCR) 03/14/18 03/14/18 03/14/18 04:10 04:10 12:00 WBC RBC Hgb Hct MCV MCH MCHC RDW RDW Differential Plt Count MPV Immature Gran % (Auto) Neut % (Auto) Lymph % (Auto) [place] % (Auto) Eos % (Auto) Baso % (Auto) Absolute Neuts (auto) Absolute Lymphs (auto) Total Counted APTT 81.4 H Sodium 140 Potassium 4.1 Chloride 105 Carbon Dioxide 26.0 Anion Gap 9 BUN 19 H Creatinine 1.59 H Estim Creat Clear Calc 42.70 Est GFR (MDRD) Af Amer 55 L Est GFR (MDRD) Non-Af 45 L BUN/Creatinine Ratio 11.9 Glucose 110 H Calcium 9.0 MRSA (PCR) Pending 03/14/18 13:05 WBC RBC Hgb Hct MCV MCH MCHC RDW RDW Differential Plt Count MPV Immature Gran % (Auto) Neut % (Auto) Lymph % (Auto) [place] % (Auto) Eos % (Auto) Baso % (Auto) Absolute Neuts (auto) Absolute Lymphs (auto) Total Counted APTT Pending Sodium Potassium Chloride Carbon Dioxide Anion Gap BUN Creatinine Estim Creat Clear Calc Est GFR (MDRD) Af Amer Est GFR (MDRD) Non-Af BUN/Creatinine Ratio Glucose Calcium MRSA (PCR) POC Glucose 03/14/18 03/14/18 03/13/18 11:55 06:46 21:09 POC Glucose 206 H 121 H 169 H 03/13/18 16:58 POC Glucose 215 H Medical Necessity - Tobacco Use Smoking Status: Former smoker Assessment/Plan All Active Problems (Last Reviewed 02/08/18 @ 13:38 by Aicha Szymanski NP-C) Symptomatic sinus bradycardia (Acute) Recurrent falls (Acute) Cystitis (Resolved) History of kidney stones (Resolved) MRSA (methicillin resistant staph aureus) culture positive (Resolved) 1. Syncope and collapse - symptomatic bradycardia. PM on thursday. Cardiology following. Currently asymptomatic. -may also have stress per cardiology per recent angina. 2. COPD - stable 3. CKD III - stable 4. Hx DVT/PE - heparin. back on eliquis when appropriate. 5. DMt2 with morbid obesity- continue current therapy and titrate to response. 6. HTN - hypotension improved 7. HLD - statin 8. BPH - flomax 9. NILO - CPAP qhs. DVT ppx: heparin DC planning: will be here at least until thursday for pacemaker. This patient was seen by Rolan Stiles PA-C under the supervision of Doctor Wellington. <Duncan Paris - Last Filed: 03/14/18 16:21> Subjective: Patient denies symptoms of dizziness, shortness of breath, palpitation. Was admitted with trifascicular block with sinus bradycardia, heart rate in 40s. 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 - Physical Exam General: Alert, Oriented x3, Cooperative HEENT: Atraumatic, PERRLA, EOMI, Normocephalic Neck: Supple, No JVD, Negative Carotid Bruits Lungs: Clear to auscultation, Normal air movement Cardiovascular: Regular rate, Normal S1, Normal S2, No murmurs Abdomen: Bowel Sounds Present, Soft, Non Tender, Non-Distended Extremities: No edema, Capillary Refill Less than 3 Seconds, Edema Skin: No rashes, No breakdown Musculoskeletal: No Tenderness to Palpation of Joints or Extremities Neurological: Cranial nerves II-XII grossly intact Psych/Mental Status: Normal Affect, Appropriate Vital Signs Temp Pulse Resp BP Pulse Ox 98.0 F 52 L 16 146/67 H 98 03/14/18 14:51 03/14/18 15:24 03/14/18 14:51 03/14/18 14:51 03/14/18 14:51 Oxygen Delivery Method Room Air Weight: 372 lb 5.772 oz Body Mass Index (BMI) 50.5 Intake and Output for Last 24 Hours 03/12/18 03/13/18 03/14/18 23:59 23:59 23:59 Intake Total 2426 / 2426 1359 / 1359 512 / 512 Output Total 975 / 975 1500 / 1500 Balance 1451 / 1451 -141 / -141 512 / 512 Laboratory Tests Past 24 Hrs 09/22/18 09/23/18 09/23/18 20:00 04:10 04:10 WBC 6.5 RBC 4.44 L Hgb 12.8 L Hct 38.9 L MCV 87.6 MCH 28.8 MCHC 32.9 RDW 13.0 RDW Differential 40.5 Plt Count 206 MPV 9.6 Immature Gran % (Auto) 0.200 Neut % (Auto) 64.3 Lymph % (Auto) 19.6 [place] % (Auto) 10.3 H Eos % (Auto) 5.1 H Baso % (Auto) 0.5 Absolute Neuts (auto) 4.2 Absolute Lymphs (auto) 1.27 Total Counted Not Reportable APTT 76.6 H Sodium 140 Potassium 4.1 Chloride 105 Carbon Dioxide 26.0 Anion Gap 9 BUN 19 H Creatinine 1.59 H Estim Creat Clear Calc 42.70 Est GFR (MDRD) Af Amer 55 L Est GFR (MDRD) Non-Af 45 L BUN/Creatinine Ratio 11.9 Glucose 110 H Calcium 9.0 MRSA (PCR) 03/14/18 03/14/18 03/14/18 04:10 12:00 13:05 WBC RBC Hgb Hct MCV MCH MCHC RDW RDW Differential Plt Count MPV Immature Gran % (Auto) Neut % (Auto) Lymph % (Auto) [place] % (Auto) Eos % (Auto) Baso % (Auto) Absolute Neuts (auto) Absolute Lymphs (auto) Total Counted APTT 81.4 H 67.2 H Sodium Potassium Chloride Carbon Dioxide Anion Gap BUN Creatinine Estim Creat Clear Calc Est GFR (MDRD) Af Amer Est GFR (MDRD) Non-Af BUN/Creatinine Ratio Glucose Calcium MRSA (PCR) POSITIVE H POC Glucose 03/14/18 03/14/18 03/13/18 11:55 06:46 21:09 POC Glucose 206 H 121 H 169 H 03/13/18 16:58 POC Glucose 215 H Assessment/Plan This patient was seen in conjunction with Rolan HI. I have independently interviewed and examined the patient and reviewed pertinent history, examination findings, laboratory and plan of management. I have reviewed the note and agree with the documented findings with the few additional points. In brief, patient is admitted for syncope and collapse most probably secondary to symptomatic bradycardia. Patient is scheduled for pacemaker tomorrow. Patient has history of DVT/PE and on Eliquis at home but currently it is held in view of elective surgery. MRSA PCR is positive but I think it is nasal colonization and does not need to be treated actively. Dr. Toscano is aware. I have discussed my assessment with Rolan HI and orders have been reviewed. Code Visit Inpatient E&M: 11279 Subs Hosp L2
[2018-03-14 13:25] LABS: Partial Thromboplast Time 67.2 Seconds (24.1-36.2)
[2018-03-14 14:49] LABS: M R Staph aureus DNA By PCR POSITIVE (Negative); Probe Check PASS
[2018-03-14 16:56] LABS: Bedside Glucose 198 mg/dL (70-110)
[2018-03-14] MEDS: Gabapentin 300 MG Capsule PO ×2 (17:33→21:19)
[2018-03-14 21:00] LABS: Partial Thromboplast Time 63.3 Seconds (24.1-36.2)
[2018-03-14] MEDS: Atorvastatin Calcium 40 MG Tablet PO (21:19)
[2018-03-14 21:25] LABS: Bedside Glucose 201 mg/dL (70-110)
[2018-03-15] VITALS (11 sets, daily range): BP systolic 141–175; BP diastolic 73–105; PULSE 59–77; RESP 16–18; TEMP 36.4–36.8; O2SAT 93–96
[2018-03-15] MEDS: 0.9% Normal Saline 1,000 ML 60 ML IV (05:43)
--- NOTE | 2018-03-15 05:55 | EKG12_ITS ---
Test Reason : AM Blood Pressure : / mmHG Vent. Rate : 068 BPM Atrial Rate : 068 BPM P-R Int : 250 ms QRS Dur : 156 ms QT Int : 466 ms P-R-T Axes : 090 -44 012 degrees QTc Int : 495 ms Sinus rhythm with 1st degree A-V block Left axis deviation Right bundle branch block Septal infarct , age undetermined Inferior infarct , age undetermined Abnormal ECG When compared with ECG of 13-MAR-2018 05:21, MANUAL COMPARISON REQUIRED, DATA IS UNCONFIRMED Confirmed by AI RAZO, BUSHRA ([id number]), editorial writer RONEL NAVAS ([id number]) on 03/19/2018 2:36:05 PM Referred By: TAY Confirmed By:BUSHRA CLOUD MD
[2018-03-15 06:21] LABS: Hematocrit 37.2 % (40-54); Hemoglobin 12.1 g/dl (13.0-16.5); Mean Corp Hgb Conc 32.5 g/gl (32-36); Mean Corpuscular Hgb 28.7 pg (27.0-32.0); Mean Corpuscular Volume 88.2 fL (80-94); Mean Platelet Vol. 10.2 fl (6.2-12.0); Platelet Count 212 K/mm3 (150-450); RBC Distribution Width CV 13.1 % (11.6-14.6); RBC Distribution Width SD 41.5 fl (35.1-43.9); Red Blood Count 4.22 M/mm3 (4.6-6.2)
[2018-03-15 06:35] LABS: Scan Indicated on CBC? Y/N NO
[2018-03-15 06:39] LABS: International Normalized Ratio 1.2; Prothrombin Time (Protime)PT. 14.8 SECONDS (11.7-14.9)
[2018-03-15 06:41] LABS: Partial Thromboplast Time 73.3 Seconds (24.1-36.2)
[2018-03-15 07:05] LABS: Bedside Glucose 136 mg/dL (70-110)
--- NOTE | 2018-03-15 07:58 | STEWCON_ITS ---
Reason For Study: Arrhythmia Stress Results Protocol: Dobutamine Stress Echo Maximum Predicted HR: 143 bpm Target HR: 122 bpm% Maximum Pre dicted HR: 85 % DurationHeart Rate Stage (mm:ss) (bpm) BPCom ment Baseline 63 164/87 No Chest Pain; Definity 1 ML Given DSE 10 MCG 3:30 81 140/72No Chest Pain DSE 20 MCG 5:49 12 1 137/59No Chest Pain Recovery 88 143/58 No Chest Pain Stress Duration: 9:19 mm:ss Maximum Stress HR: 121 bpmM ETS: 1 Baseline Echocardiogram Findings Stress Echo Wall motion Data Resting WMIntermediate WMStress WM Resting Wall Motion Wall Motion Stress No regional wall motion No regional wall motion abnormalities noted. abnormalities noted. Ejection Fraction 55 %. Ejection Fraction 70 %. Stress Results The patient did not exhibit any symptoms during drug infusion. Drug infusion was stopped due to achievement of target heart rate. Interpretation Summary Dobutamine stress echocardiogram. Resting EKG demonstrates sinus rhythm with rate of 64 bpm. First-degree AV block is noted right bundle branch block is present in the left foot axis is present. Dobutamine was infused starting at 10 mcg/kg/min and increasing to 20 mcg/kg/min. The maximum heart rate attained was noted to be 162 bpm which was 113% of maximum predicted heart rate. The maximum workload was 1 metabolic equivalent. The patient maintained sinus rhythm throughout the test with a right bundle branch block. Occasional premature ventricular complex was noted. There were no ST or T-wave changes noted suggest ischemia. The resting blood pressure was noted to be 164/87 with a final blood pressure 143/58. Stress echocardiographic images. Stress echocardiographic images were obtained with and without Definity. The resting ejection fraction was noted to be 55-60% and at peak dobutamine infusion the ejection fraction was noted to be 65%. No wall motion abnormalities were noted to suggest ischemia. No clinical angina was noted. Conclusion: Normal dobutamine stress echocardiographic imaging with no evidence of ischemia. Ordering Physician: Greg Toscano Referring Physician: Greg Toscano Performed By: Gaby Flood, JOSSELINE, RVT
[2018-03-15] MEDS: Losartan Potassium 100 MG Tablet PO (09:48)
[2018-03-15 11:15] LABS: Bedside Glucose 154 mg/dL (70-110)
--- NOTE | 2018-03-15 11:22 | PCM.PROGNOTE ---
<Rolan Stiles - Last Filed: 03/15/18 11:22> Patient Problems: Active and Suspected Problems (Last Reviewed 02/08/18 @ 13:38 by BETTYE Aguilera) Symptomatic sinus bradycardia (Acute) Recurrent falls (Acute) Subjective: No CP, palp, SOB, heaviness, tightness. - Physical Exam General: Alert, Oriented x3, Cooperative HEENT: Atraumatic, PERRLA, EOMI, Normocephalic Neck: Supple, No JVD, Negative Carotid Bruits Lungs: Clear to auscultation, Normal air movement Cardiovascular: Regular rate, No murmurs Abdomen: Bowel Sounds Present, Soft, Non Tender Extremities: No edema, Capillary Refill Less than 3 Seconds Skin: No rashes, No breakdown Musculoskeletal: No Tenderness to Palpation of Joints or Extremities Neurological: Cranial nerves II-XII grossly intact Psych/Mental Status: Normal Affect, Appropriate, Alert and oriented to time, place, person, mood and affect Vital Signs Temp Pulse Resp BP Pulse Ox 97.7 F L 60 16 175/73 H 94 03/15/18 09:30 03/15/18 09:30 03/15/18 09:30 03/15/18 09:30 03/15/18 09:30 Oxygen Delivery Method Room Air Weight: 372 lb 5.772 oz Body Mass Index (BMI) 50.5 Intake and Output for Last 24 Hours 03/13/18 03/14/18 03/15/18 23:59 23:59 23:59 Intake Total 1359 / 1359 999 / 999 163 / 163 Output Total 1500 / 1500 550 / 550 350 / 350 Balance -141 / -141 449 / 449 -187 / -187 Laboratory Tests Past 24 Hrs 03/14/18 03/14/18 03/14/18 12:00 13:05 20:30 WBC RBC Hgb Hct MCV MCH MCHC RDW RDW Differential Plt Count MPV PT INR APTT 67.2 H 63.3 H Sodium Potassium Chloride Carbon Dioxide Anion Gap BUN Creatinine Est GFR (MDRD) Af Amer Est GFR (MDRD) Non-Af BUN/Creatinine Ratio Glucose Calcium MRSA (PCR) POSITIVE H 03/15/18 03/15/18 03/15/18 05:05 05:05 05:05 WBC 6.0 RBC 4.22 L Hgb 12.1 L Hct 37.2 L MCV 88.2 MCH 28.7 MCHC 32.5 RDW 13.1 RDW Differential 41.5 Plt Count 212 MPV 10.2 PT 14.8 INR 1.2 APTT 73.3 H Sodium Pending Potassium Pending Chloride Pending Carbon Dioxide Pending Anion Gap Pending BUN Pending Creatinine Pending Est GFR (MDRD) Af Amer Pending Est GFR (MDRD) Non-Af Pending BUN/Creatinine Ratio Pending Glucose Pending Calcium Pending MRSA (PCR) POC Glucose 03/15/18 03/15/18 03/14/18 10:52 06:59 21:16 POC Glucose 154 H 136 H 201 H 03/14/18 03/14/18 16:48 11:55 POC Glucose 198 H 206 H Medical Necessity - Tobacco Use Smoking Status: Former smoker Assessment/Plan All Active Problems (Last Reviewed 02/08/18 @ 13:38 by BETTYE Aguilera) Symptomatic sinus bradycardia (Acute) Recurrent falls (Acute) Cystitis (Resolved) History of kidney stones (Resolved) MRSA (methicillin resistant staph aureus) culture positive (Resolved) 1. Syncope and collapse - 2/2 bradycardia cardiology following. Pt asymptomatic PM deferred for now. Stress echo today. 2. COPD - stable 3. CKD III - stable 4. Hx DVT/PE - heparin. back on eliquis when appropriate. 5. DMt2 with morbid obesity- continue current therapy and titrate to response. 6. HTN - hypotension improved 7. HLD - statin 8. BPH - flomax 9. NILO - CPAP qhs. DVT ppx: heparin DC planning: pending stress echo, cardiology eval. This patient was seen by Rolan Stiles PA-C under the supervision of Doctor Wellington. <Duncan Paris - Last Filed: 03/15/18 16:18> Subjective: Patient was seen and examined. Denies chest pain, shortness of breath/heaviness. Scheduled for a stress echo and possible pacemaker - Physical Exam General: Alert, Oriented x3, Cooperative HEENT: Atraumatic, PERRLA, EOMI, Normocephalic Neck: Supple, No JVD, Negative Carotid Bruits Lungs: Clear to auscultation, Diminished Cardiovascular: Regular rate, Normal S1, Normal S2, No murmurs, PMI Normal, Bradycardic Abdomen: Bowel Sounds Present, Soft, Non Tender Extremities: No edema, Capillary Refill Less than 3 Seconds Skin: No rashes, No breakdown Musculoskeletal: No Tenderness to Palpation of Joints or Extremities Neurological: Cranial nerves II-XII grossly intact Psych/Mental Status: Normal Affect, Appropriate Vital Signs Temp Pulse Resp BP Pulse Ox 97.9 F 68 18 141/85 H 93 03/15/18 13:00 03/15/18 13:14 03/15/18 13:00 03/15/18 15:25 03/15/18 13:00 Oxygen Delivery Method Room Air Weight: 372 lb 5.772 oz Body Mass Index (BMI) 50.5 Intake and Output for Last 24 Hours 03/13/18 03/14/18 03/15/18 23:59 23:59 23:59 Intake Total 1359 / 1359 999 / 999 163 / 163 Output Total 1500 / 1500 550 / 550 350 / 350 Balance -141 / -141 449 / 449 -187 / -187 Laboratory Tests Past 24 Hrs 03/14/18 03/15/18 03/15/18 20:30 05:05 05:05 WBC RBC Hgb Hct MCV MCH MCHC RDW RDW Differential Plt Count MPV PT 14.8 INR 1.2 APTT 63.3 H 73.3 H Sodium 140 Potassium 4.2 Chloride 104 Carbon Dioxide 32.0 Anion Gap 4 L BUN 20 H Creatinine 1.78 H Estim Creat Clear Calc 38.15 Est GFR (MDRD) Af Amer 48 L Est GFR (MDRD) Non-Af 40 L BUN/Creatinine Ratio 11.2 Glucose 137 H Calcium 8.8 03/15/18 05:05 WBC 6.0 RBC 4.22 L Hgb 12.1 L Hct 37.2 L MCV 88.2 MCH 28.7 MCHC 32.5 RDW 13.1 RDW Differential 41.5 Plt Count 212 MPV 10.2 PT INR APTT Sodium Potassium Chloride Carbon Dioxide Anion Gap BUN Creatinine Estim Creat Clear Calc Est GFR (MDRD) Af Amer Est GFR (MDRD) Non-Af BUN/Creatinine Ratio Glucose Calcium POC Glucose 03/15/18 03/15/18 03/14/18 10:52 06:59 21:16 POC Glucose 154 H 136 H 201 H 03/14/18 16:48 POC Glucose 198 H Assessment/Plan This patient was seen in conjunction with Rolan HI. I have independently interviewed and examined the patient and reviewed pertinent history, examination findings, laboratory and plan of management. I have reviewed the note and agree with the documented findings with the few additional points. In brief, patient is admitted for syncope and collapse mostly secondary to bradycardia. Currently patient is asymptomatic. It was later learned that patient was on beta-zen which was held. Patient evaluated by residential door unit installer and advised stress echo. Patient further had loop recorder. I have discussed my assessment with Rolan HI and orders have been reviewed.
--- NOTE | 2018-03-15 12:50 | PN.CARD_ITS ---
Subjectve: Patient seen and evaluated. Objective: Vital Signs Temp Pulse Resp BP Pulse Ox 97.7 F L 60 16 175/73 H 94 03/15/18 09:30 03/15/18 09:30 03/15/18 09:30 03/15/18 09:30 03/15/18 09:30 Oxygen Delivery Method Room Air Weight: 372 lb 5.772 oz Body Mass Index (BMI) 50.5 Intake and Output for Last 24 Hours 03/13/18 03/14/18 03/15/18 23:59 23:59 23:59 Intake Total 1359 / 1359 999 / 999 163 / 163 Output Total 1500 / 1500 550 / 550 350 / 350 Balance -141 / -141 449 / 449 -187 / -187 General: Awake, Alert, Oriented x 3 HEENT: PERRL, EOMI, Sclera Non Icteric Neck: Supple, Good ROM, No Lymph Node Enlargement Lungs: Clear to auscultation Cardiovascular: Regular Rhythm, Normal S1, Normal S2, No Murmurs, No Rubs, No Gallops Vascular: No Carotid Bruits, Normal Femoral Pulses, Normal Radial Pulses, Normal Dorsalis Pedal Pulse, Normal Posterior Tibial Pulses Abdomen: Bowel Sounds Present, Soft, Non Tender, No HSM, No Organomegaly Extremities: No Cyanosis, No Clubbing, No edema Neurological: No Focal Motor or Sensory Deficit 03/14/18 13:05: APTT 67.2 H 03/14/18 20:30: APTT 63.3 H 03/15/18 05:05: PT 14.8, INR 1.2, APTT 73.3 H 03/15/18 05:05: WBC 6.0, RBC 4.22 L, Hgb 12.1 L, Hct 37.2 L, MCV 88.2, MCH 28.7 , MCHC 32.5, RDW 13.1, RDW Differential 41.5, Plt Count 212, MPV 10.2 Rhythm: EKG: ECHO: Stress Test: Cardiac Cath: PCI: CT Surgery: Holter monitor: EPS: PPM: CXR: Chest CT Scan: Medical Necessity - Tobacco Use Smoking Status: Former smoker Assessment/Plan 1. Presyncope with trifascicular block. Patient has a history of presyncope and a trifascicular block. It is not clear whether he had any significant bradycardia arrhythmias he had previously been on a beta-zen. After reviewing all his medical records as well as his data the decision was to proceed with an implantable loop recorder which was placed today. His beta-zen can be reduced to 25 mg a day and depending on any findings on the loop recorder further recommendations will be made. He can be followed up with the above as an outpatient. 2. Coronary artery disease He does have a history of possible coronary artery disease he has not had any angina at this particular time he underwent a dobutamine stress echocardiogram which did not demonstrate any evidence of ischemia and the plan would be to continue following him on an outpatient basis and depending on the findings further recommendations will then be made. He can be discharged for outpatient follow-up today. Thank you for allowing me to participate in the care of your patient. Please don't hesitate to call if any issues arise
--- NOTE | 2018-03-15 12:53 | CL.IE_ITS ---
Patient: WADE HERNANDEZ Study Date: 03/15/2018 Performing: Greg Toscano MD : 1940 Age: 77 Gender: male PROCEDURES PERFORMED [id number] OF LOOP RECORDER INDICATIONS Syncope PROCEDURE DETAILS The patient was brought to the Catheterization Lab in the postabsorptive nonsedated state. Informed consent was obtained prior to the procedure. Local anesthetic was given subcutaneously to the left up per chest area with Lidocaine 2%. Steri-strips applied to Lt chest area. The patient tolerated the p rocedure well. 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 Device Recommendations: Follow up with Primary Care Physician PROCEDURE MEDICATIONS Versed 1 mg IV Oxygen: 2 L/min via nasal cannula Signed By Greg Toscano MD On 03/15/2018 12:52:27 Greg Toscano MD
[2018-03-15 13:22] LABS: Anion Gap 4 (5-15); BUN 20 mg/dL (7-18); BUN/Creat Ratio 11.2 RATIO (10-20); Calcium,Total 8.8 mg/dL (8.5-10.1); Chloride 104 mmol/L (98-107); Creatinine, Serum 1.78 mg/dL (0.70-1.30); EST Glomerular Filtration Rate 40 mL/min (>60); Est Glom Filt Rate - Afr Amer 48 mL/min (>60); Estimated Creatinine Clearance 38.15 ml/min; Glucose 137 mg/dL (74-106); Potassium 4.2 mmol/L (3.5-5.1); Sodium Level 140 mmol/L (136-145)
[2018-03-15] MEDS: Aspirin E.C. 81 MG Tablet PO (13:47)
[2018-03-15] MEDS: Citalopram 40 MG TABLET PO (13:47)
[2018-03-15] MEDS: Furosemide 40 MG Tablet PO (13:48)
[2018-03-15] MEDS: Tamsulosin HCl 0.4 MG Capsule 0.8 MG PO (13:48)
[2018-03-15] MEDS: Isosorbide Mononitrate 30 MG Tablet PO (13:48)
--- NOTE | 2018-03-15 13:53 | PCM.DC ---
- Discharge Diagnoses Current Active Problems: Current Active and Chronic Problems (Last Reviewed 02/08/18 @ 13:38 by BETTYE Aguilera) Symptomatic sinus bradycardia (Acute) Recurrent falls (Acute) You will use the following diet at home:: Calorie/Carbohydrate Controlled (specify 1200, 1400, etc) - 1800 kayla / day, Cardiac Your food should be the consistency of: Regular Your liquids should be the consistency of: Regular/Thin Discharge Activity: Return to Normal Activity Allergies/Adverse Reactions: Allergies MARGIE Inhibitors Allergy (Unknown, Verified 03/11/18 17:19) Unknown cefepime Allergy (Verified 03/11/18 17:19) Other WEAKNESS & FALLING ipodate [Ipodate] Allergy (Verified 03/11/18 17:19) Shortness of breath levofloxacin [Levofloxacin] Allergy (Verified 03/11/18 17:19) Anaphylaxis lisinopril Allergy (Verified 03/11/18 17:19) Shortness of breath ofloxacin Allergy (Verified 03/11/18 17:19) Unknown Quinolones Allergy (Verified 03/11/18 17:19) Anaphylaxis Medications to take at Discharge Atorvastatin Calcium [Lipitor] 40 mg PO QHS 05/29/15 Citalopram [Celexa] 40 mg PO DAILY 05/29/15 Fluticasone 0.05% [Flonase Nasal [place]] 1 spray NASAL BID PRN 05/29/15 Tamsulosin HCl [Flomax] 0.8 mg PO DAILY 07/08/16 Losartan Potassium [Cozaar] 100 mg PO DAILY 07/24/17 Insulin Aspart [Novolog Flexpen] 13 units SC TIDAC #1 flexpen 08/11/17 albuterol sulfate 90 mcg/actuation breath activated powder inhaler 2 puff INHALATION Q4H PRN #1 ea 02/08/18 Aspirin E.C. [Ecotrin] 81 mg PO DAILY 03/11/18 Gabapentin [Neurontin] 300 mg PO 1700,2200 03/11/18 Insulin Detemir [Levemir FlexPen] 30 units SC BID 03/11/18 Isosorbide Mononitrate [Imdur] 30 mg PO DAILY 03/12/18 Apixaban [Eliquis] 5 mg PO BID #60 tab 03/15/18 Metoprolol Succinate 25 mg PO DAILY #30 tab.er.24h 03/15/18 The following prescriptions were given: Apixaban [Eliquis] 5 mg PO BID #60 tab Metoprolol Succinate 25 mg PO DAILY #30 tab.er.24h Primary Care Physician: Wili Nelson DO [Primary Care Provider] - Please follow up with your Primary Care Physician in: 1-2 weeks Test Results: Test results from this visit will be discussed in further detail at your follow-up appointment, if applicable. Please Follow Up With: Greg Toscano MD When: 2 weeks Proposed Discharge Date: 03/15/18
--- NOTE | 2018-03-15 13:55 | PCM.DC.SUM ---
<Rolan Stiles - Last Filed: 03/15/18 14:06> Discharge Date and Diagnosis - Problem List Patient Problems: Active and Suspected Problems (Last Reviewed 02/08/18 @ 13:38 by BETTYE Aguilera) Symptomatic sinus bradycardia (Acute) Recurrent falls (Acute) Date of Admission: 03/11/18 Date of Discharge: 03/15/14 - Primary Discharge Diagnosis Active and Suspected Problems (Last Reviewed 02/08/18 @ 13:38 by BETTYE Aguilera) Symptomatic sinus bradycardia (Acute) Recurrent falls (Acute) CAD HTN NILO DMt2 Morbid obesity CKDIII Hx DVT PE BPH HLD COPD - Secondary Discharge Diagnosis Chronic Problems (Last Reviewed 02/08/18 @ 13:38 by BETTYE Aguilera) Thromboembolism (Chronic) BPH (benign prostatic hyperplasia) (Chronic) Super obesity (Chronic) Debility (Chronic) Noncompliance (Chronic) with CPAP and follow up and with diet COPD (chronic obstructive pulmonary disease) (Chronic) Type II diabetes mellitus, uncontrolled (Chronic) History of depression (Chronic) History of other venous thrombosis and embolism (Chronic) HLD (hyperlipidemia) (Chronic) HTN (hypertension) (Chronic) NILO (obstructive sleep apnea) (Chronic) Chronic renal failure, stage 3 (moderate) (Chronic) Bifascicular bundle branch block (Chronic) Colon polyps (Chronic) Family history of colon cancer (Chronic) Hospital Course and Treatment Imaging Results: 03/15/18 07:58 Stress Test Echo W/Contrast [ECHO] Routine Consults: Cardiology - Vin/Dorcas Operations: None Procedures: Stress test, - - loop recorder Summary of Care Provided: Physical exam on day of discharge: See daily progress note Hospital course: The patient is a 77 year old M with a hx of CAD, NILO, DMt2, COPD, morbid obesity, CKDIII, HLD, BPH who presented to the ER with c/o dizziness and collapse, without clear LOC. He was found to be bradycardic in the 40's with 1st degree AV block with response to atropine with pulse to 67. He was admitted to the PCU and his metoprolol was discontinued. Cardiology was consulted. His rate remained stable during his stay. Cardiology recommended possible pacemaker following Thursday. He had had some anginal symptoms prior so first a stress echo was obtained. This was negative for any ischemic process. Cardiology felt that with the discontinuation of his metoprolol and no further issues following that that he did not require pacemaker evaluation at this time. In order to better evaluate, a loop recorder was placed. They also recommended that he resume metoprolol but at a decreased dose. He was also noted that the patient had not been taking his Eliquis at home and this was ordered for him to restart at discharge. 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 Patient was discharged home in stable condition and will follow up with his PCP in 1-2 weeks as well as with cardiology in 1-2 weeks. This patient was seen by Rolan Stiles PA-C under the supervision of Doctor Paris. [] Discharge Diet: Low fat/ Low Cholesterol, 1800 Calorie Control Diet, 2000 mg Sodium Diet Discharge Activity: Return to Normal Activity Home Medications: Medications to take at Discharge Atorvastatin Calcium [Lipitor] 40 mg PO QHS 05/29/15 Citalopram [Celexa] 40 mg PO DAILY 05/29/15 Fluticasone 0.05% [Flonase Nasal [place]] 1 spray NASAL BID PRN 05/29/15 Tamsulosin HCl [Flomax] 0.8 mg PO DAILY 07/08/16 Losartan Potassium [Cozaar] 100 mg PO DAILY 07/24/17 Insulin Aspart [Novolog Flexpen] 13 units SC TIDAC #1 flexpen 08/11/17 albuterol sulfate 90 mcg/actuation breath activated powder inhaler 2 puff INHALATION Q4H PRN #1 ea 02/08/18 Aspirin E.C. [Ecotrin] 81 mg PO DAILY 03/11/18 Gabapentin [Neurontin] 300 mg PO 1700,2200 03/11/18 Insulin Detemir [Levemir FlexPen] 30 units SC BID 03/11/18 Isosorbide Mononitrate [Imdur] 30 mg PO DAILY 03/12/18 Apixaban [Eliquis] 5 mg PO BID #60 tab 03/15/18 Metoprolol Succinate 25 mg PO DAILY #30 tab.er.24h 03/15/18 Following Prescrptions Were Given to Patient: Apixaban [Eliquis] 5 mg PO BID #60 tab Metoprolol Succinate 25 mg PO DAILY #30 tab.er.24h Primary Care Physician: Omar,Wili, DO [Primary Care Provider] - Please follow up with your Primary Care Physician in: 1-2 weeks Please Follow Up With: Greg Toscano MD When: 2 weeks Disposition: Home Minutes spent on discharge:: 35 Patient Condition:: Stable Medical Necessity - Tobacco Use Smoking Status: Former smoker Meaningful Use Info Meaningful Use Diagnoses (Choose all that apply): None applicable <Duncan Paris - Last Filed: 03/15/18 16:22> Discharge Date and Diagnosis - Primary Discharge Diagnosis Active and Suspected Problems (Last Reviewed 02/08/18 @ 13:38 by BETTYE Aguilera) Symptomatic sinus bradycardia (Acute) Recurrent falls (Acute) - Secondary Discharge Diagnosis Chronic Problems (Last Reviewed 02/08/18 @ 13:38 by BETTYE Aguilera) Thromboembolism (Chronic) BPH (benign prostatic hyperplasia) (Chronic) Super obesity (Chronic) Debility (Chronic) Noncompliance (Chronic) with CPAP and follow up and with diet COPD (chronic obstructive pulmonary disease) (Chronic) Type II diabetes mellitus, uncontrolled (Chronic) History of depression (Chronic) History of other venous thrombosis and embolism (Chronic) HLD (hyperlipidemia) (Chronic) HTN (hypertension) (Chronic) NILO (obstructive sleep apnea) (Chronic) Chronic renal failure, stage 3 (moderate) (Chronic) Bifascicular bundle branch block (Chronic) Colon polyps (Chronic) Family history of colon cancer (Chronic) Hospital Course and Treatment Imaging Results: 03/15/18 07:58 Stress Test Echo W/Contrast [ECHO] Routine Summary of Care Provided: This patient was seen in conjunction with Rolan HI. I have independently interviewed and examined the patient and reviewed pertinent history, examination findings, laboratory and plan of management. I have reviewed the note and agree with the documented findings with the few additional points. In brief, patient is admitted for syncope and collapse mostly secondary to bradycardia. Currently patient is asymptomatic. It was later learned that patient was on beta-zen which was held. Patient evaluated by tax services professional and advised stress echo. Dobutamine stress echo does not show evidence of ischemia. Patient further had loop recorder. Door Patcher advised decrease the dose of metoprolol succinate 25 mg once daily. Patient blood pressure is elevated. Patient is on losartan 100 mg daily. Amlodipine 5 mg added. Continue Eliquis for history of DVT/PE. I have discussed my assessment with Rolan HI and orders have been reviewed. [] Discharge meds reconciliation done. Follow-up instructions given. Total time spent, exact 35 minutes on discharge meds reconciliation, examination, review of imaging and blood test and discussion with the patient on follow-up instructions. Code Visit Inpatient E&M: 75677 Disch Hosp
--- NOTE | 2018-03-15 14:02 | DS.PCM_ITS ---
Addendum entered and electronically signed by KOLTON James 03/15/18 14:06: Code Visit Addendum : prior to DC blood pressure 160/100, norvasc 5mg PO qd added. Original Note: <Rolan Stiles - Last Filed: 03/15/18 14:06> Discharge Date and Diagnosis - Problem List Patient Problems: Active and Suspected Problems (Last Reviewed 02/08/18 @ 13:38 by Aicha Szymanski NP-Alisha) Symptomatic sinus bradycardia (Acute) Recurrent falls (Acute) Date of Admission: 03/11/18 Date of Discharge: 03/15/14 - Primary Discharge Diagnosis Active and Suspected Problems (Last Reviewed 02/08/18 @ 13:38 by ANGELINA AguileraC) Symptomatic sinus bradycardia (Acute) Recurrent falls (Acute) CAD HTN NILO DMt2 Morbid obesity CKDIII Hx DVT PE BPH HLD COPD - Secondary Discharge Diagnosis Chronic Problems (Last Reviewed 02/08/18 @ 13:38 by BETTYE Aguilera) Thromboembolism (Chronic) BPH (benign prostatic hyperplasia) (Chronic) Super obesity (Chronic) Debility (Chronic) Noncompliance (Chronic) with CPAP and follow up and with diet COPD (chronic obstructive pulmonary disease) (Chronic) Type II diabetes mellitus, uncontrolled (Chronic) History of depression (Chronic) History of other venous thrombosis and embolism (Chronic) HLD (hyperlipidemia) (Chronic) HTN (hypertension) (Chronic) NILO (obstructive sleep apnea) (Chronic) Chronic renal failure, stage 3 (moderate) (Chronic) Bifascicular bundle branch block (Chronic) Colon polyps (Chronic) Family history of colon cancer (Chronic) Hospital Course and Treatment Imaging Results: 03/15/18 07:58 Stress Test Echo W/Contrast [ECHO] Routine Consults: Cardiology - Vin/Dorcas Operations: None Procedures: Stress test, - - loop recorder Summary of Care Provided: Physical exam on day of discharge: See daily progress note Hospital course: The patient is a 77 year old M with a hx of CAD, NILO, DMt2, COPD, morbid obesity , CKDIII, HLD, BPH who presented to the ER with c/o dizziness and collapse, without clear LOC. He was found to be bradycardic in the 40's with 1st degree AV block with response to atropine with pulse to 67. He was admitted to the PCU and his metoprolol was discontinued. Cardiology was consulted. His rate remained stable during his stay. Cardiology recommended possible pacemaker following Thursday. He had had some anginal symptoms prior so first a stress echo was obtained. This was negative for any ischemic process. Cardiology felt that with the discontinuation of his metoprolol and no further issues following that that he did not require pacemaker evaluation at this time. In order to better evaluate, a loop recorder was placed. They also recommended that he resume metoprolol but at a decreased dose. He was also noted that the patient had not been taking his Eliquis at home and this was ordered for him to restart at discharge. 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 Patient was discharged home in stable condition and will follow up with his PCP in 1-2 weeks as well as with cardiology in 1-2 weeks. This patient was seen by Rolan Stiles PA-C under the supervision of Doctor Paris. [] Discharge Diet: Low fat/ Low Cholesterol, 1800 Calorie Control Diet, 2000 mg Sodium Diet Discharge Activity: Return to Normal Activity Home Medications: Medications to take at Discharge Atorvastatin Calcium [Lipitor] 40 mg PO QHS 05/29/15 Citalopram [Celexa] 40 mg PO DAILY 05/29/15 Fluticasone 0.05% [Flonase Nasal [place]] 1 spray NASAL BID PRN 05/29/15 Tamsulosin HCl [Flomax] 0.8 mg PO DAILY 07/08/16 Losartan Potassium [Cozaar] 100 mg PO DAILY 07/24/17 Insulin Aspart [Novolog Flexpen] 13 units SC TIDAC #1 flexpen 08/11/17 albuterol sulfate 90 mcg/actuation breath activated powder inhaler 2 puff INHALATION Q4H PRN #1 ea 02/08/18 Aspirin E.C. [Ecotrin] 81 mg PO DAILY 03/11/18 Gabapentin [Neurontin] 300 mg PO 1700,2200 03/11/18 Insulin Detemir [Levemir FlexPen] 30 units SC BID 03/11/18 Isosorbide Mononitrate [Imdur] 30 mg PO DAILY 03/12/18 Apixaban [Eliquis] 5 mg PO BID #60 tab 03/15/18 Metoprolol Succinate 25 mg PO DAILY #30 tab.er.24h 03/15/18 Following Prescrptions Were Given to Patient: Apixaban [Eliquis] 5 mg PO BID #60 tab Metoprolol Succinate 25 mg PO DAILY #30 tab.er.24h Primary Care Physician: Wlii Nelson DO [Primary Care Provider] - Please follow up with your Primary Care Physician in: 1-2 weeks Please Follow Up With: Greg Toscano MD When: 2 weeks Disposition: Home Minutes spent on discharge:: 35 Patient Condition:: Stable Medical Necessity - Tobacco Use Smoking Status: Former smoker Meaningful Use Info Meaningful Use Diagnoses (Choose all that apply): None applicable <uDncan Paris - Last Filed: 03/15/18 16:22> Discharge Date and Diagnosis - Primary Discharge Diagnosis Active and Suspected Problems (Last Reviewed 02/08/18 @ 13:38 by BETTYE Aguilera) Symptomatic sinus bradycardia (Acute) Recurrent falls (Acute) - Secondary Discharge Diagnosis Chronic Problems (Last Reviewed 02/08/18 @ 13:38 by BETTYE Aguilera) Thromboembolism (Chronic) BPH (benign prostatic hyperplasia) (Chronic) Super obesity (Chronic) Debility (Chronic) Noncompliance (Chronic) with CPAP and follow up and with diet COPD (chronic obstructive pulmonary disease) (Chronic) Type II diabetes mellitus, uncontrolled (Chronic) History of depression (Chronic) History of other venous thrombosis and embolism (Chronic) HLD (hyperlipidemia) (Chronic) HTN (hypertension) (Chronic) NILO (obstructive sleep apnea) (Chronic) Chronic renal failure, stage 3 (moderate) (Chronic) Bifascicular bundle branch block (Chronic) Colon polyps (Chronic) Family history of colon cancer (Chronic) Hospital Course and Treatment Imaging Results: 03/15/18 07:58 Stress Test Echo W/Contrast [ECHO] Routine Summary of Care Provided: This patient was seen in conjunction with Rolan HI. I have independently interviewed and examined the patient and reviewed pertinent history, examination findings, laboratory and plan of management. I have reviewed the note and agree with the documented findings with the few additional points. In brief, patient is admitted for syncope and collapse mostly secondary to bradycardia. Currently patient is asymptomatic. It was later learned that patient was on beta-zen which was held. Patient evaluated by stretching machine operator and advised stress echo. Dobutamine stress echo does not show evidence of ischemia. Patient further had loop recorder. Blanching Machine Operator advised decrease the dose of metoprolol succinate 25 mg once daily. Patient blood pressure is elevated. Patient is on losartan 100 mg daily. Amlodipine 5 mg added. Continue Eliquis for history of DVT/PE. I have discussed my assessment with Rolan HI and orders have been reviewed. [] Discharge meds reconciliation done. Follow-up instructions given. Total time spent, exact 35 minutes on discharge meds reconciliation, examination , review of imaging and blood test and discussion with the patient on follow-up instructions. Code Visit Inpatient E&M: 90581 Disch Hosp
--- NOTE | 2018-03-15 14:24 | CHAPLAIN ---
Type of Pastoral Visit _x__ Initial Visit ___ Follow-up Visit ___ On-call Visit ___ General Patient Visit ___ Spiritual Assessment ___ Family Conference ___ Bereavement ___ Rapid Response ___ Code Blue ___ Other (describe below) Pastoral Care Referral From _x__ Patient ___ Family ___ Nurse ___ Physician ___ Delivery Consultant ___ Professional Fee Coder ___ Other (describe below) Sacrament/Intervention _x__ Active listening ___ Anointing ___ Mormon ___ Bereavement ___ Communion ___ Marcella exploration ___ ___ Life review _x__ Prayer ___ Reconciliation ___ Sacrament of Sick _x__ Supportive presence ___ Wedding ___ Other (describe below) Pastoral Comments
[2018-03-15] MEDS: amLODIPine 5 MG Tablet PO (15:27)
[2018-03-15] MEDS: Insulin Lispro 100 UNIT/ML INSULN.PEN 13 UNIT SC (16:52)
[2018-03-15] MEDS: Insulin Lispro 100 UNIT/ML INSULN.PEN SQ (16:53)
[2018-03-15] MEDS: Gabapentin 300 MG Capsule PO (16:53)
--- NOTE | 2018-03-15 16:56 | NURSING ---
Discharge teaching completed. Patient and family educated that dressing to chest is to stay in place for 2 days then can be removed and patient can shower. Leave steri-strips in place and let them fall off. Instructed patient on signs of infection and to call Dr. Toscano if signs of infection are present. Patient also instructed on wound care and signs of infection. Patient and family voice understanding of same. Patient to return to ED if symptoms return or worsen.
[2018-03-15 17:00] LABS: Bedside Glucose 179 mg/dL (70-110)
--- NOTE | 2018-03-16 16:12 | CASEMGMT ---
RN CM DC Phone Call DC Date: 03/15/18 RONE 14 /STRATA 4 Disposition: Intro role of CM to patient via phone. Pt stated he did not have questions regarding his dc instructions or prescriptions. F/U with PCP has been arranged. Pt states he is improving at home. No further questions. Tigist MCKNIGHT RN ACM
== END 2018-03-15 17:24 | disposition home or self-care (01) | DRG 261 ==
LOC: ED 18:33 → PCU 03-12 06:47
PROVIDERS: Internal Medicine Cardiovascular Disease; Admitting Provider Internal Medicine; Emergency Provider Emergency Medicine; Family Provider Family Medicine; PCP Family Medicine; Visit Provider Internal Medicine
DX: R00.1 Bradycardia, unspecified (principal); Z68.43 Body mass index [BMI] 50.0-59.9, adult; G47.33 Obstructive sleep apnea (adult) (pediatric); Z23 Encounter for immunization; E66.01 Morbid (severe) obesity due to excess calories; I12.9 Hypertensive chronic kidney disease with stage 1 through stage 4 chronic kidney disease, or unspecified chronic kidney disease; E11.22 Type 2 diabetes mellitus with diabetic chronic kidney disease; N18.3 Chronic kidney disease, stage 3 (moderate); I45.3 Trifascicular block; N40.0 Benign prostatic hyperplasia without lower urinary tract symptoms; R55 Syncope and collapse; E78.5 Hyperlipidemia, unspecified; J44.9 Chronic obstructive pulmonary disease, unspecified; Z86.718 Personal history of other venous thrombosis and embolism; I25.10 Atherosclerotic heart disease of native coronary artery without angina pectoris; Z79.4 Long term (current) use of insulin; Z87.891 Personal history of nicotine dependence; R29.6 Repeated falls
CPT/HCPCS: 33282; 36415; 71045; 80048; 81001; 82962; 83735; 84443; 84484; 85025; 85027; 85610; 85730; 87641; 93005; 93017; 93306; 93350; 94002; 94003; 97110; 97116; 97162; 97166; 97530; 97802; 99152; 99153; 99285; J7030; J7050; Q9957; 90686; A4216; C8928

== ENCOUNTER → 2018-04-01 14:56 | Outpatient (CLI) | payer MEDICARE, OTHER, SELFPAY | PROVIDERS: Family Provider Family Medicine; PCP Family Medicine; Visit Provider Family Medicine | DX: R41.3 Other amnesia (principal); Z87.440 Personal history of urinary (tract) infections | CPT/HCPCS: 87077; 87086; 87088; 87186 ==

== ENCOUNTER → 2018-06-07 14:26 | Outpatient (CLI) | payer MEDICARE, OTHER, SELFPAY ==
[2018-05-05 14:25] VITALS: BMI 50.8
== END ==
PROVIDERS: Family Provider Family Medicine; PCP Family Medicine; Visit Provider Internal Medicine Critical Care Medicine
DX: G47.33 Obstructive sleep apnea (adult) (pediatric) (principal)
CPT/HCPCS: 95811

== ENCOUNTER 2018-07-08 10:40 | Observation (INO) | payer MEDICARE, OTHER, SELFPAY ==
[2018-06-16 14:10] VITALS: BMI 51.5
[2018-07-08] VITALS (13 sets, daily range): BP systolic 110–176; BP diastolic 52–88; PULSE 39–56; RESP 13–18; TEMP 36.4–36.8; O2SAT 93–97; BMI 51.5
--- NOTE | 2018-07-08 10:54 | CT_ITS ---
STUDY: CT BRAIN WITHOUT CONTRAST REASON FOR EXAM: Male, 77 years old. Slurred speech. Left and weakness. RADIATION DOSAGE (If Supplied By Facility): CTDIvol = ( 44.99 ) mGy, DLP = ( 849.54 ) mGycm TECHNIQUE: Transaxial CT imaging of the brain was performed without administration of intravenous contrast material. Individualized dose optimization techniques were used for this CT. COMPARISON: Comparison is made with prior study dated July 24, 2017. FINDINGS: Normal soft tissue structures. Normal calvarium. There is moderate cerebral atrophy with widening of the extra-axial spaces and ventricular dilatation. There are areas of decreased attenuation within the white matter tracts of the supratentorial brain, consistent with microvascular disease changes. 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 Normal basal ganglia and thalami. Normal brainstem. There is mild cerebellar atrophy. There is no intracranial hemorrhage. There are no findings of an acute ischemic infarction. Atherosclerotic calcification of the cavernous portion of the internal carotid arteries bilaterally. Normal visualized paranasal sinuses. CT/Brain/Head without Contrast IMPRESSION: Chronic involutional changes of the brain. Electronically Signed: Seymour Shelley MD at 12:25 EST Tel [phone], Service support ,
--- NOTE | 2018-07-08 10:54 | RAD_ITS ---
STUDY: X-RAY CHEST REASON FOR EXAM: Male, 77 years old. Chest pain. TECHNIQUE: Single AP portable view of the chest. COMPARISON: Comparison is made with prior study dated March 11, 2018. FINDINGS: EKG electrodes are seen. The lungs are clear and expanded. There is no demonstrated pleural abnormality. There is moderate cardiac enlargement. Normal mediastinum and denys. Normal visualized pulmonary arteries. There is atherosclerotic tortuosity of the aortic arch and descending thoracic aorta. There are diffuse degenerative changes of the visualized thoracic spine. Normal visualized ribs, clavicles, and shoulders. There is no demonstrated abnormality of the visualized soft tissue structures of the upper abdomen. RAD/Chest 1 View IMPRESSION: Cardiomegaly. Electronically Signed: Seymour Shelley MD at 12:26 EST Tel [phone], Service support ,
--- NOTE | 2018-07-08 10:54 | EKG12_ITS ---
Test Reason : NEURO S/SX Blood Pressure : / mmHG Vent. Rate : 042 BPM Atrial Rate : 042 BPM P-R Int : 254 ms QRS Dur : 162 ms QT Int : 500 ms P-R-T Axes : 078 -66 025 degrees QTc Int : 417 ms Marked sinus bradycardia with 1st degree A-V block Left axis deviation Right bundle branch block Possible Lateral infarct , age undetermined Inferior infarct , age undetermined, cannot be excluded Abnormal ECG Confirmed by AI RAZO, BUSHRA ([id number]), book or script editor RONEL NAVAS ([id number] on 07/20/2018 3:57:39 PM Referred By: MARINE Confirmed By:BUSHRA CLOUD MD
[2018-07-08 10:55] LABS: Bedside Glucose 382 mg/dL (70-110)
--- NOTE | 2018-07-08 10:56 | ED.VISSUMM ---
- ER Visit Summary Date of Service: 07/08/18 Chief Complaint: Left hand weakness History of Present Illness: The patient is a 77 M tree of diabetes insulin-dependent, hypertension, high cholesterol and prior PE for which she is on Eliquis for blood thinner. Patient went to bed last night around 9 PM study was fine. When he woke up this morning at 9 AM he states that he had weakness of the left hand when he would try to hold some it would drop. He denies any headache. He denies any slurred speech. He denies any visual change. He is able to ambulate in the denies any problems with his balance. No prior stroke or mini stroke. Family states he had issues like this 1 other time and it was secondary to urinary tract infection. Physical Examination: Signs are stable and afebrile. He is currently in no distress. H EENT exam unremarkable. No facial droop. Pupils are round reactive light. Extra motions are intact. He has normal speech. There is no slurring. There is no dysarthria. Neck nontender. Lungs clear to auscultation bilaterally. Heart regular rhythm rate about 50-60. No murmur. Chest wall nontender. Abdomen obese but soft and nontender. Normal bowel sounds. Patient is moving all 4 extremities. They appear to be neurovascularly intact. Currently he has no weakness in his left hand. He has normal 5 out of 5 hydraulic press operator strength. Fingertip to nose within normal limits bilaterally. Dorsi and plantar flexion intact. NIH score is 0. Test Results: Stroke workup. CT of the brain without contrast read by the radiologist as no acute changes. Reviewed by myself. Chest x-ray portable cardiomegaly no acute process read both by myself and radiologist. EKG sinus bradycardia rate of 42 family states heart rate. CBC unremarkable white count of 5. Hemoglobin 13. Electrolytes creatinine 1.97 he has baseline renal insufficiency. Glucose 383 normal gap. Troponin normal. Emergency Department Course and Treatment: Repeat exam at 1250 patient is doing well. He seems to have a normal neurologic exam at this [facility] since his been in the ER is been 0. Treatment Plan: Spoke to the hospitalist and the patient will be brought in for further evaluation of left hand weakness that is resolved. This may or may not have been a TIA. Disposition: Admission Impression: Transient left hand weakness resolved History of noncemented diabetes, high cholesterol and hypertension. They are PE with chronic anticoagulation on Eliquis This note was generated with hereO dictation software. It may contain incorrect words, spelling, and punctuation that were not noted in review of the chart prior to signing ED Disposition - Plan for ED Patient: Chief Complaint: Neuro S/Sx Referrals: Wili Nelson DO [Primary Care Provider] -
--- NOTE | 2018-07-08 10:59 | ED.DCSUM_ITS ---
- ER Visit Summary Date of Service: 07/08/18 Chief Complaint: Left hand weakness History of Present Illness: The patient is a 77 M tree of diabetes insulin- dependent, hypertension, high cholesterol and prior PE for which she is on Eliquis for blood thinner. Patient went to bed last night around 9 PM study was fine. When he woke up this morning at 9 AM he states that he had weakness of the left hand when he would try to hold some it would drop. He denies any headache. He denies any slurred speech. He denies any visual change. He is able to ambulate in the denies any problems with his balance. No prior stroke or mini stroke. Family states he had issues like this 1 other time and it was secondary to urinary tract infection. Physical Examination: Signs are stable and afebrile. He is currently in no distress. H EENT exam unremarkable. No facial droop. Pupils are round reactive light. Extra motions are intact. He has normal speech. There is no slurring. There is no dysarthria. Neck nontender. Lungs clear to auscultation bilaterally. Heart regular rhythm rate about 50-60. No murmur. Chest wall nontender. Abdomen obese but soft and nontender. Normal bowel sounds. Patient is moving all 4 extremities. They appear to be neurovascularly intact. Current ly he has no weakness in his left hand. He has normal 5 out of 5 master esthetician strength. Fingertip to nose within normal limits bilaterally. Dorsi and plantar flexion intact. NIH score is 0. Test Results: Stroke workup. CT of the brain without contrast read by the radiologist as no acute changes. Reviewed by myself. Chest x-ray portable cardiomegaly no acute process read both by myself and radiologist. EKG sinus bradycardia rate of 42 family states heart rate. CBC unremarkable white count of 5. Hemoglobin 13. Electrolytes creatinine 1.97 he has baseline renal insufficiency. Glucose 383 normal gap. Troponin normal. Emergency Department Course and Treatment: Repeat exam at 1250 patient is doing well. He seems to have a normal neurologic exam at this [facility] since his been in the ER is been 0. Treatment Plan: Spoke to the hospitalist and the patient will be brought in for further evaluation of left hand weakness that is resolved. This may or may not have been a TIA. Disposition: Admission Impression: Transient left hand weakness resolved History of noncemented diabetes, high cholesterol and hypertension. They are PE with chronic anticoagulation on Eliquis This note was generated with [employer] dictation software. It may contain incorrect words, spelling, and punctuation that were not noted in review of the chart prior to signing ED Disposition - Plan for ED Patient: Chief Complaint: Neuro S/Sx Referrals: Wili Nelson DO [Primary Care Provider] -
[2018-07-08 11:08] LABS: Absolute Lymphocyte Count 0.85 X10^3/ul (0.83-4.51); Absolute Neutrophil Count 4.3 X10^3/uL (2.0-7.7); Basophil# 0.02 X10^3/uL; Basophil% 0.3 % (0-1); Eosinophil# 0.17 X10^3/uL; Eosinophils% 2.9 % (0-5); Hematocrit 39.6 % (40-54); Lymphocyte # 0.85 X10^3/ul (4.0); Lymphocyte % 14.7 % (19-41); Mean Corp Hgb Conc 32.8 g/gl (32-36); Mean Corpuscular Hgb 28.6 pg (27.0-32.0); Mean Corpuscular Volume 87.2 fL (80-94); Mean Platelet Vol. 9.6 fl (6.2-12.0); Monocyte# 0.44 X10^3/uL; Monocyte% 7.6 % (0-10); Neutrophil # 4.29 X10^3/uL (2.7-7.7); Platelet Count 218 K/mm3 (150-450); RBC Distribution Width CV 13.3 % (11.6-14.6); RBC Distribution Width SD 41.2 fl (35.1-43.9); Red Blood Count 4.54 M/mm3 (4.6-6.2); White Blood Count 5.8 K/mm3 (4.4-11.0)
[2018-07-08 11:12] LABS: POSITIVE COUNT NO; POSITIVE DIFFERENTIAL NO; POSITIVE MORPHOLOGY NO
[2018-07-08 11:14] LABS: International Normalized Ratio 1.2
[2018-07-08 11:15] LABS: Partial Thromboplast Time 35.8 Seconds (24.1-36.2)
[2018-07-08 11:18] LABS: Anion Gap 7 (5-15); BUN 21 mg/dL (7-18); BUN/Creat Ratio 10.7 RATIO (10-20); Calcium,Total 8.8 mg/dL (8.5-10.1); Chloride 103 mmol/L (98-107); Creatinine, Serum 1.97 mg/dL (0.70-1.30); EST Glomerular Filtration Rate 35 mL/min (>60); Est Glom Filt Rate - Afr Amer 43 mL/min (>60); Estimated Creatinine Clearance 34.47 ml/min; Glucose 383 mg/dL (74-106); Potassium 4.3 mmol/L (3.5-5.1); Sodium Level 136 mmol/L (136-145)
--- NOTE | 2018-07-08 12:21 | ED.RN ---
OK TO D/C [facility] PER .
--- NOTE | 2018-07-08 13:05 | HP.PCM_ITS ---
Problem List (1) TIA Status: Acute (2) Status post placement of implantable loop recorder Status: Chronic (3) Symptomatic sinus bradycardia Status: Acute (4) Recurrent falls Status: Acute (5) Thromboembolism Status: Chronic (6) BPH (benign prostatic hyperplasia) Status: Chronic (7) Super obesity Status: Chronic (8) Cystitis Status: Resolved (9) Debility Status: Chronic (10) Noncompliance Status: Chronic Comment: with CPAP and follow up and with diet (11) COPD (chronic obstructive pulmonary disease) Status: Chronic (12) Type II diabetes mellitus, uncontrolled Status: Chronic (13) History of depression Status: Chronic (14) History of other venous thrombosis and embolism Status: Chronic (15) HLD (hyperlipidemia) Status: Chronic Qualifiers: Hyperlipidemia type: pure hypercholesterolemia Qualified Code(s): E78.00 - Pure hypercholesterolemia, unspecified; E78.0 - Pure hypercholesterolemia (16) HTN (hypertension) Status: Chronic Qualifiers: Hypertension type: essential hypertension Qualified Code(s): I10 - Essential (primary) hypertension (17) NILO (obstructive sleep apnea) Status: Chronic Comment: BiPAP ST 18/12 cm of water (18) Chronic renal failure, stage 3 (moderate) Status: Chronic (19) Bifascicular bundle branch block Status: Chronic (20) Colon polyps Status: Chronic (21) Family history of colon cancer Status: Chronic History of Present Illness Date of Admission: 07/08/18 Chief Complaint: Left hand paresthesia and mild language deficit The patient is a 77 year old M with multiple comorbidities as listed above including sinus bradycardia, COPD, type 2 diabetes mellitus, obstructive sleep apnea, bifascicular block status post implantable loop recorder and history of VT E came to ER with sudden onset of left hand paresthesia when he woke up at 9 AM and mild slurring speech and mild incomprehensible as per her daughter but patient denies receptive aphasia. Patient denies change in vision or floaters. Denies any other weakness or paresthesia in the lower extremities. Denies previous stroke. The patient was last admitted in March 2018 for syncope most probably secondary to bradycardia for which metoprolol dose was decreased and patient had implantable loop recorder subsequently. In ED, basic blood workup is on baseline, except BUN 21, creatinine 1.97 slightly elevated from baseline 21/1.78 in February 2018. Troponins are negative. TSH normal. Chest x-ray shows cardiomegaly. Past Medical History Past Medical History (Chronic Problems): Chronic Problems (Last Reviewed 06/16/18 @ 14:31 by Aicha Szymanski NP-C) 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) BPH (benign prostatic hyperplasia) (Chronic) Super obesity (Chronic) Debility (Chronic) Noncompliance (Chronic) with CPAP and follow up and with diet COPD (chronic obstructive pulmonary disease) (Chronic) Type II diabetes mellitus, uncontrolled (Chronic) History of depression (Chronic) History of other venous thrombosis and embolism (Chronic) HLD (hyperlipidemia) (Chronic) HTN (hypertension) (Chronic) NILO (obstructive sleep apnea) (Chronic) BiPAP ST 18/12 cm of water Chronic renal failure, stage 3 (moderate) (Chronic) Bifascicular bundle branch block (Chronic) Colon polyps (Chronic) Family history of colon cancer (Chronic) Medical History: Medical History (Last Reviewed 06/16/18 @ 14:31 by ANGELINA AguileraC) Status post placement of implantable loop recorder (Chronic) Z95.818 Thromboembolism (Chronic) I74.9 BPH (benign prostatic hyperplasia) (Chronic) N40.0 Super obesity (Chronic) E66.9 Cystitis (Resolved) N30.90 Debility (Chronic) R53.81 Noncompliance (Chronic) Z91.19 with CPAP and follow up and with diet COPD (chronic obstructive pulmonary disease) (Chronic) J44.9 Type II diabetes mellitus, uncontrolled (Chronic) E11.65 History of depression (Chronic) Z86.59 History of other venous thrombosis and embolism (Chronic) Z86.718 HLD (hyperlipidemia) (Chronic) E78.5 HTN (hypertension) (Chronic) I10 NILO (obstructive sleep apnea) (Chronic) G47.[address] 18/12 cm of water Chronic renal failure, stage 3 (moderate) (Chronic) N18.3 Bifascicular bundle branch block (Chronic) I45.2 Colon polyps (Chronic) Family history of colon cancer (Chronic) Z80.0 History of kidney stones (Resolved) Z87.442 MRSA (methicillin resistant staph aureus) culture positive (Resolved) Z22.322 Allergies MARGIE Inhibitors Allergy (Unknown, Verified 07/08/18 10:42) Unknown cefepime Allergy (Verified 07/08/18 10:42) Other WEAKNESS & FALLING ipodate [Ipodate] Allergy (Verified 07/08/18 10:42) Shortness of breath levofloxacin [Levofloxacin] Allergy (Verified 07/08/18 10:42) Anaphylaxis lisinopril Allergy (Verified 07/08/18 10:42) Shortness of breath ofloxacin Allergy (Verified 07/08/18 10:42) Unknown Quinolones Allergy (Verified 07/08/18 10:42) Anaphylaxis Home Medications: Ambulatory Orders Medication Instructions Recorded Atorvastatin Calcium [Lipitor] 40 mg PO QHS 05/29/15 Citalopram [Celexa] 40 mg PO DAILY 05/29/15 Fluticasone 0.05% [Flonase Nasal 1 spray NASAL BID PRN 05/29/15 [place]] Tamsulosin HCl [Flomax] 0.8 mg PO DAILY 07/08/16 Losartan Potassium [Cozaar] 100 mg PO DAILY 07/24/17 Insulin Aspart [Novolog Flexpen] 13 units SC TIDAC #1 flexpen 08/11/17 albuterol sulfate 90 mcg/actuation 2 puff INHALATION Q4H PRN #1 ea 02/08/18 breath activated powder inhaler Aspirin E.C. [Ecotrin] 81 mg PO DAILY 03/11/18 Gabapentin [Neurontin] 300 mg PO 1700,2200 03/11/18 Insulin Detemir [Levemir FlexPen] 50 units SUBCUT BID 03/11/18 Isosorbide Mononitrate [Imdur] 30 mg PO DAILY 03/12/18 Apixaban [Eliquis] 5 mg PO BID #60 tab 03/15/18 Cefdinir 300 mg PO BID 07/08/18 Metoprolol Succinate 25 mg PO DAILY 07/08/18 Surgical History: - - Circumcision, excision of kidney stone Psychiatric History: Depression Smoking Status: Former smoker - *Family History Maternal Family History: Family History (Last Reviewed 06/16/18 @ 14:31 by BETTYE Aguilera) Father Colon cancer Mother Cancer Sister CAD (coronary artery disease) History Items: Cancer - Patient's mother of cancer but he is not sure what kind of cancer. Paternal Family History: Family History (Last Reviewed 06/16/18 @ 14:31 by BETTYE Aguilera) Father Colon cancer Mother Cancer Sister CAD (coronary artery disease) History Items: Cancer - Father of colon cancer Offspring Family History: Family History (Last Reviewed 06/16/18 @ 14:31 by BETTYE Aguilera) Father Colon cancer Mother Cancer Sister CAD (coronary artery disease) History Items: - - He has a son who is morbidly obese and suffers from breathing problems and heart problems. Review of Systems Constitutional: Denies: Chills, Fever, Weight Change HEENT: Denies: Head Aches, Sinus Congestion, Sinus Drainage Cardiovascular: Reports: Edema, -. Denies: Chest Pain, Claudication, Chest Pressure, Palpitations Respiratory: Denies: Cough, Shortness of breath at rest, Sputum production Gastrointestinal: Denies: Abdominal Pain, Nausea, Vomiting Genitourinary: Denies: Dysuria Musculoskeletal: Reports: Back Pain. Denies: Joint Pain, Joint Tenderness Skin: Denies: Rash, Wounds Neurological: Reports: Balance problems, Incoordination, Numbness, Tingling. Denies: Focal weakness Psychiatric: Denies: Anxiety, Depression, Homicidal Ideations, Suicidal Ideations Hematologic/ Lymphatic: Denies: Easy Bruising, Easy Bleeding VTE Information - Inpt Only VTE Present on Admission: No VTE Mechan Device Prophylaxis: None VTE Pharm Prophylaxis ordered?: Yes Patient Problems: Active and Suspected Problems (Last Reviewed 06/16/18 @ 14:31 by Aicha Szymanski NP-Alisha) TIA (Acute) - Physical Exam General: Alert, Oriented x3, Cooperative HEENT: Atraumatic, PERRLA, EOMI, Normocephalic Oral: Dry Mucosa Neck: Supple, No JVD, Negative Carotid Bruits Lungs: Clear to auscultation, No rhonchi, No rales, Diminished - Air entry diminished in bilateral lung bases Cardiovascular: Regular rate, Regular Rhythm, Normal S1, Normal S2, Bradycardic, - - Implantable loop recorder Abdomen: Bowel Sounds Present, Soft, Non Tender, Non-Distended Extremities: Capillary Refill Less than 3 Seconds, Edema Skin: - - Chronic lymphedema and venous edema with grayish pigmetation on both lower legs Musculoskeletal: No Tenderness to Palpation of Joints or Extremities, Arthritic Changes, Muscle Wasting Neurological: Deep Tendon Reflexes 2+/4 and Symmetrical, Neuro grossly intact, - - Chronic mild lower extremity weakness secondary to lymphedema and arthritis No upper extremity weakness, strength 5/5. Mild left-sided drooping but I think it is chronic Psych/Mental Status: Normal Affect, Appropriate Vital Signs Temp Pulse Resp BP Pulse Ox 98.1 F 40 L 18 118/55 L 94 07/08/18 10:44 07/08/18 12:00 07/08/18 12:00 07/08/18 12:00 07/08/18 12:00 Oxygen Delivery Method Room Air Weight: 380 lb Body Mass Index (BMI) 51.5 Finger Stick Blood Glucose 382 Laboratory Tests Past 24 Hrs 07/08/18 07/08/18 07/08/18 10:50 10:50 10:50 WBC 5.8 RBC 4.54 L Hgb 13.0 Hct 39.6 L MCV 87.2 MCH 28.6 MCHC 32.8 RDW 13.3 RDW Differential 41.2 Plt Count 218 MPV 9.6 Immature Gran % (Auto) 0.500 Neut % (Auto) 74.0 H Lymph % (Auto) 14.7 L [place] % (Auto) 7.6 Eos % (Auto) 2.9 Baso % (Auto) 0.3 Absolute Neuts (auto) 4.3 Absolute Lymphs (auto) 0.85 Total Counted Not Reportable PT 15.0 H INR 1.2 APTT 35.8 Sodium 136 Potassium 4.3 Chloride 103 Carbon Dioxide 26.0 Anion Gap 7 BUN 21 H Creatinine 1.97 H Estim Creat Clear Calc 34.47 Est GFR (MDRD) Af Amer 43 L Est GFR (MDRD) Non-Af 35 L BUN/Creatinine Ratio 10.7 Glucose 383 H Calcium 8.8 Troponin I < 0.015 POC Glucose 07/08/18 10:50 POC Glucose 382 H Assessment/Plan All Active Problems (Last Reviewed 06/16/18 @ 14:31 by Aicha Szymanski NP-C) TIA (Acute) Symptomatic sinus bradycardia (Acute) Recurrent falls (Acute) Cystitis (Resolved) History of kidney stones (Resolved) MRSA (methicillin resistant staph aureus) culture positive (Resolved) The patient is a 77 year old M with multiple comorbidities as listed above including sinus bradycardia, COPD, type 2 diabetes mellitus, obstructive sleep apnea, bifascicular block status post implantable loop recorder and history of VT E came to ER with sudden onset of left hand paresthesia when he woke up at 9 AM and mild slurring speech and mild incomprehensible as per her daughter but patient denies receptive aphasia. Patient denies change in vision or floaters. Denies any other weakness or paresthesia in the lower extremities. Denies previous stroke. The patient was last admitted in March 2018 for syncope most probably secondary to bradycardia for which metoprolol dose was decreased and patient had implantable loop recorder subsequently. In ED, basic blood workup is on baseline, except BUN 21, creatinine 1.97 which is similar to baseline 21/1.78 in February 2018. Troponins are negative. TSH normal. Chest x-ray shows cardiomegaly. 1. TIA/left hand peripheral neuropathy/cervical neuropathy: Patient is being admitted in PCU. MRI brain ordered and if positive for stroke we will do full workup including head and neck MRA. Patient is not candidate for CT angiogram because of CKD. Patient had recent echo on 03/12/2018 which reported as stage II diastolic dysfunction with EF 55% with no regional wall motion abnormality. Mild TR, RVSP 50 mmHg. No pericardial effusion. Mitral valve not reported probably from technically difficult study. Patient had a stress echo on 03/11/2018 and reported as no evidence of ischemia. On aspirin and statin. Control BP and glucose as per stroke guidelines. Neurology consult. PT/OT/speech evaluation. 2. Sinus bradycardia with bifascicular block: Patient heart rate runs in 40/min. Hold beta-zen. EKG shows marked sinus bradycardia, QRS duration 162 ms with first-degree AV block at 42 bpm, LAD, right bundle branch block and left anterior fascicular block. Patient follows Dr. phillips. 3. CKD stage III: BUN 21, creatinine 1.97 is on baseline, which is similar 1.95 in February 2018. Monitor electrolytes and kidney function. Patient is not on diuretic at home but on Cozaar. 4. Hypertension: Continue Cozaar. Blood pressure is 145/59, 128/54. 5. Diabetes mellitus type 2: Blood sugar is uncontrolled. Glucose 383 on BMP. Accu-Chek before meals and at bedtime. Pre-meal Humalog insulin increased. On Levemir. A1c tomorrow a.m. 6. Other chronic comorbidities include history of VT, BPH, COPD, depression, obstructive sleep apnea on BiPAP. Home medication reconciliation done. Laboratory Results 07/08/18 10:50: POC Glucose 382 H 07/08/18 10:50: WBC 5.8, RBC 4.54 L, Hgb 13.0, Hct 39.6 L, MCV 87.2, MCH 28.6, MCHC 32.8, RDW 13.3, RDW Differential 41.2, Plt Count 218, MPV 9.6, Immature Gran % (Auto) 0.500, Neut % (Auto) 74.0 H, Lymph % (Auto) 14.7 L, [place] % (Auto) 7.6, Eos % (Auto) 2.9, Baso % (Auto) 0.3, Absolute Neuts (auto) 4.3, Absolute Lymphs (auto) 0.85, Total Counted Not Reportable 07/08/18 10:50: PT 15.0 H, INR 1.2, APTT 35.8 07/08/18 10:50: Sodium 136, Potassium 4.3, Chloride 103, Carbon Dioxide 26.0, Anion Gap 7, BUN 21 H, Creatinine 1.97 H, Estim Creat Clear Calc 34.47, Est GFR (MDRD) Af Amer 43 L, Est GFR (MDRD) Non-Af 35 L, BUN/Creatinine Ratio 10.7, Glucose 383 H, Calcium 8.8, Troponin I < 0.015 07/08/18 13:20: Urine Color Yellow, Urine Clarity Cloudy, Urine pH 5.0, Ur Specific [place] 1.015, Urine Protein 100 H, Urine Glucose (UA) 1000 H, Urine K etones Negative, Urine Occult Blood 250 H, Urine Nitrite Negative, Urine Bilirubin Negative, Urine Urobilinogen Normal, Ur Leukocyte Esterase 500 H, U rine RBC 50-100 SEEN, Urine WBC 50-100 SEEN, Ur Squamous Epith Cells 0 SEEN, Urine Bacteria 1+, Urine Mucus 0 SEEN 07/08/18 14:30: Troponin I < 0.015, TSH 2.17 Later on, MRI brain does not show acute infarct. Clinical Impression(s) from Imaging Studies Brain CT 07/08/18 10:54 IMPRESSION: Chronic involutional changes of the brain. Chest X-Ray 07/08/18 10:54 IMPRESSION: Cardiomegaly. Brain MRI 07/08/18 14:03 IMPRESSION: Mild atrophy and periventricular white matter ischemic changes without evidence for acute infarct Code Visit OBSV E&M: 27409 Initial observation care L3
[2018-07-08 13:26] LABS: Mucous, Urine 0 SEEN /hpf (<or=2+); Squamous Epithelial Cells - UA 0 SEEN /hpf (0-5)
[2018-07-08 13:32] LABS: Color, Urine Yellow (Yellow); Glucose, Dipstick 1000 mg/dl (Normal); Ketone-Dipstick Negative (Negative); Leukocyte Esterase-Dipstick 500 /ul (Negative); Nitrite-Dipstick Negative (Negative); Occult Blood-Urine 250 /ul (Negative); Protein-Dipstick 100 mg/dl (Negative); Specific Gravity, Urine 1.015 (1.002-1.030); Urine Bilirubin Dipstick Negative (Negative); Urine Clarity Cloudy (Clear); Urine Urobilinogen Normal (Normal)
[2018-07-08 13:40] LABS: Bacteria 1+ /hpf (None Seen); Red Blood Cells-Urine 50-100 SEEN /hpf (0-5); White Blood Cells 50-100 SEEN /hpf (0-5)
--- NOTE | 2018-07-08 14:03 | MRI_ITS ---
STUDY: MRI BRAIN WITHOUT CONTRAST REASON FOR EXAM: Male, 77 years old. Left arm weakness and slurred speech TECHNIQUE: Standardized multiplanar fat and water weighted pulse sequences were obtained. COMPARISON: CT of the brain on July 08, 2018 FINDINGS: Mild atrophy and minor periventricular white matter ischemic changes.. Normal bilateral basal ganglia. Normal thalami. There is no extra-axial fluid accumulation. Incidental finding of cavum septa pellucida which is normal developmental variant. Normal flow voids within the major intracranial circulation suggesting patency by spin echo criteria. Normal sella turcica, pituitary gland, infundibular stalk, optic chiasm and hypothalamus. Normal tectal plate and pineal gland. Normal midbrain, sherri and medulla. Normal cerebellum. Normal basal cisterns. Normal bilateral temporal bones. Normal bilateral internal auditory canals. No demonstrated orbital abnormality, within the constraints of a routine brain study. There is mild mucosal thickening within the ethmoid air cells.. Normal calvarium and skull base. Normal visualized soft tissue structures. Normal visualized upper cervical spine. MRI/Brain without Contrast IMPRESSION: Mild atrophy and periventricular white matter ischemic changes without evidence for acute infarct Electronically Signed: Sy Gonzalez MD at 16:16 EST , Service support ,
[2018-07-08] MEDS: Aspirin 81 MG TAB.CHEW PO (14:29)
[2018-07-08 15:09] LABS: Thyroid Stim Hormone (TSH) 2.17 uIU/mL (0.358-3.74)
[2018-07-08] MEDS: Insulin Lispro 100 UNIT/ML INSULN.PEN 18 UNIT SC (16:37)
[2018-07-08] MEDS: Gabapentin 300 MG Capsule PO ×2 (16:37→21:29)
[2018-07-08] MEDS: Insulin Lispro 100 UNIT/ML INSULN.PEN SQ ×2 (16:38→21:31)
[2018-07-08 16:45] LABS: Bedside Glucose 215 mg/dL (70-110)
--- NOTE | 2018-07-08 20:52 | EKG12_ITS ---
Test Reason : TIMED Blood Pressure : / mmHG Vent. Rate : 044 BPM Atrial Rate : 044 BPM P-R Int : 260 ms QRS Dur : 164 ms QT Int : 500 ms P-R-T Axes : 091 -64 021 degrees QTc Int : 427 ms Marked sinus bradycardia with 1st degree A-V block Left axis deviation Right bundle branch block Possible Lateral infarct , age undetermined Inferior infarct , age undetermined Abnormal ECG Confirmed by SUMMER RAZO, KARISSA ([id number]), science editor TABATHA DIAZ ([id number]) on 07/12/2018 9:51:48 AM Referred By: Aicha Szymanski Confirmed By:KARISSA WHEELER MD
[2018-07-08] MEDS: APIXABAN 5 MG TABLET PO (21:27)
[2018-07-08] MEDS: Atorvastatin Calcium 80 MG Tablet PO (21:29)
[2018-07-09] VITALS (10 sets, daily range): BP systolic 127–159; BP diastolic 53–78; PULSE 47–68; RESP 16–20; TEMP 36.4–36.9; O2SAT 94–96; BMI 51.5
[2018-07-09 00:46] LABS: Bedside Glucose 206 mg/dL (70-110)
[2018-07-09 07:41] LABS: Cholesterol 142 mg/dL (200); High Density Lipoprotein 34 mg/dL; Triglycerides 190 mg/dL; Very Low Density Lipoprotein 38 mg/dL (5-40)
[2018-07-09 08:06] LABS: Bedside Glucose 174 mg/dL (70-110)
--- NOTE | 2018-07-09 08:45 | NURSING ---
weigh and charge workerKasandra notified condition change. Dr. Paris paged.
--- NOTE | 2018-07-09 09:15 | CT_ITS ---
STUDY: CT BRAIN WITHOUT CONTRAST REASON FOR EXAM: Male, 77 years old. Altered mental status. Paresthesia of the left hand and slurred speech. RADIATION DOSAGE (If Supplied By Facility): CTDIvol = ( 44.99 ) mGy, DLP = ( 863.60 ) mGycm TECHNIQUE: Transaxial CT imaging of the brain was performed without administration of intravenous contrast material. Individualized dose optimization techniques were used for this CT. COMPARISON: Comparison is made with prior study dated July 08, 2018. FINDINGS: Normal soft tissue structures. Normal calvarium. There is moderate cerebral atrophy with widening of the extra-axial spaces and ventricular dilatation. There are areas of decreased attenuation within the white matter tracts of the supratentorial brain, consistent with microvascular disease changes. Given septum pellucidum. Normal basal ganglia and thalami. Normal brainstem. There is mild cerebellar atrophy. There is no intracranial hemorrhage. There are no findings of an acute ischemic infarction. Atherosclerotic calcification of the cavernous portions of the internal carotid arteries bilaterally. Normal visualized paranasal sinuses. CT/Brain/Head without Contrast IMPRESSION: Chronic involutional changes of the brain. There has been no change since prior study. Electronically Signed: Seymour Shelley MD at 9:45 EST Tel [phone], Service support ,
[2018-07-09] MEDS: Insulin Lispro 100 UNIT/ML INSULN.PEN SQ ×4 (09:16→21:17)
--- NOTE | 2018-07-09 10:31 | PCM.PN.HOSP ---
Patient Problems: Active and Suspected Problems (Last Reviewed 06/16/18 @ 14:31 by BETTYE Aguilera) TIA (Acute) Vitals/I&O's: Vital Signs Temp Pulse Resp BP Pulse Ox 97.6 F L 62 16 159/78 H 94 07/09/18 08:25 07/09/18 08:25 07/09/18 08:25 07/09/18 08:25 07/09/18 08:25 Oxygen Delivery Method Room Air Weight: 380 lb Body Mass Index (BMI) 51.5 Finger Stick Blood Glucose 382 Intake and Output for Last 24 Hours 07/07/18 07/08/18 07/09/18 23:59 23:59 23:59 Intake Total 680 / 680 160 / 160 Balance 680 / 680 160 / 160 Laboratory Results 07/08/18 10:50: POC Glucose 382 H 07/08/18 10:50: WBC 5.8, RBC 4.54 L, Hgb 13.0, Hct 39.6 L, MCV 87.2, MCH 28.6, MCHC 32.8, RDW 13.3, RDW Differential 41.2, Plt Count 218, MPV 9.6, Immature Gran % (Auto) 0.500, Neut % (Auto) 74.0 H, Lymph % (Auto) 14.7 L, [place] % (Auto) 7.6, Eos % (Auto) 2.9, Baso % (Auto) 0.3, Absolute Neuts (auto) 4.3, Absolute Lymphs (auto) 0.85, Total Counted Not Reportable 07/08/18 10:50: PT 15.0 H, INR 1.2, APTT 35.8 07/08/18 10:50: Sodium 136, Potassium 4.3, Chloride 103, Carbon Dioxide 26.0, Anion Gap 7, BUN 21 H, Creatinine 1.97 H, Estim Creat Clear Calc 34.47, Est GFR (MDRD) Af Amer 43 L, Est GFR (MDRD) Non-Af 35 L, BUN/Creatinine Ratio 10.7, Glucose 383 H, Calcium 8.8, Troponin I < 0.015 07/08/18 13:20: Urine Color Yellow, Urine Clarity Cloudy, Urine pH 5.0, Ur Specific [place] 1.015, Urine Protein 100 H, Urine Glucose (UA) 1000 H, Urine Ketones Negative, Urine Occult Blood 250 H, Urine Nitrite Negative, Urine Bilirubin Negative, Urine Urobilinogen Normal, Ur Leukocyte Esterase 500 H, Urine RBC 50-100 SEEN, Urine WBC 50-100 SEEN, Ur Squamous Epith Cells 0 SEEN, Urine Bacteria 1+, Urine Mucus 0 SEEN 07/08/18 14:30: Troponin I < 0.015, TSH 2.17 07/08/18 16:36: POC Glucose 215 H 07/08/18 21:23: POC Glucose 206 H 07/09/18 06:42: Triglycerides 190, Cholesterol 142, LDL Cholesterol 70, VLDL Cholesterol 38, HDL Cholesterol 34 L 07/09/18 07:01: POC Glucose 174 H Current Medications Albuterol Sulfate (Ventolin Aerosols) 2.5 mg INHALATION Q4H PRN PRN PRN Reason: SOB/WHEEZE Apixaban (Eliquis) 5 mg PO BID [facility] Last Admin: 07/08/18 21:27 Dose: 5 mg Aspirin (Aspirin, Baby) 81 mg PO DAILY@0800 [facility] Last Admin: 07/08/18 14:29 Dose: 81 mg Atorvastatin Calcium (Lipitor) 80 mg PO QHS [facility] Last Admin: 07/08/18 21:29 Dose: 80 mg Citalopram Hydrobromide (Celexa) 40 mg PO DAILY [facility] Dextrose (D50w Syringe) 0 gm IV X1 PRN; Protocol PRN Reason: Hypoglycemia Fluticasone Propionate (Flonase Nasal [place]) 1 spray NASAL BID PRN PRN PRN Reason: NASAL CONGESTION Gabapentin (Neurontin) 300 mg PO 1700,2200 [facility] Last Admin: 07/08/18 21:29 Dose: 300 mg Glucagon () 1 mg IM .X1 PRN PRN Reason: Hypoglycemia Aztreonam 2 gm/ Sodium (Chloride) 100 mls @ 150 mls/hr IV X1 ONE Stop: 07/09/18 11:07 Aztreonam 1 gm/ Sodium (Chloride) 100 mls @ 150 mls/hr IV Q12 [facility] Insulin Glargine (Lantus (Bkc)) 50 units SC BID [facility] Last Admin: 07/08/18 21:31 Dose: 50 u Insulin Human Lispro (Humalog Kwikpen (Bkc)) 18 unit SC TIDAC [facility] Last Admin: 07/08/18 16:37 Dose: 18 u Insulin Human Lispro (Humalog Kwikpen (Bkc)) 0 unit SQ ACHS [facility]; Protocol Last Admin: 07/09/18 09:16 Dose: 2 u Isosorbide Mononitrate (Imdur) 30 mg PO DAILY [facility] Labetalol HCl (Trandate) 10 mg IV Q10M PRN PRN Reason: MAINTAIN BP < 220/120 Stop: 07/09/18 14:04 Losartan Potassium (Cozaar) 100 mg PO DAILY [facility] Tamsulosin HCl (Flomax) 0.8 mg PO DAILY [facility] Medical Necessity - Tobacco Use Smoking Status: Former smoker Tobacco Use: Cigars Assessment/Plan All Active Problems (Last Reviewed 06/16/18 @ 14:31 by Aicha Szymanski, STRATE[employer]IC BUYER-C) TIA (Acute) Symptomatic sinus bradycardia (Acute) Recurrent falls (Acute) Cystitis (Resolved) History of kidney stones (Resolved) MRSA (methicillin resistant staph aureus) culture positive (Resolved)
--- NOTE | 2018-07-09 11:00 | NURSING ---
attempt straight cath for UA cult. after 30min w/ a helper, unable to cath pt. Dr. Paris notified.
[2018-07-09] MEDS: Citalopram 40 MG TABLET PO (12:40)
[2018-07-09] MEDS: Losartan Potassium 100 MG Tablet PO (12:40)
[2018-07-09] MEDS: APIXABAN 5 MG TABLET PO ×2 (12:40→21:20)
[2018-07-09] MEDS: Aspirin 81 MG TAB.CHEW PO (12:40)
[2018-07-09] MEDS: Tamsulosin HCl 0.4 MG Capsule 0.8 MG PO (12:41)
[2018-07-09] MEDS: Isosorbide Mononitrate 30 MG Tablet PO (12:41)
[2018-07-09 12:50] LABS: Bedside Glucose 283 mg/dL (70-110)
--- NOTE | 2018-07-09 13:01 | CDU_ITS ---
Reason For Study: TIA Rt. Velocities/BP Lt. Velocities/BP Prox CCA 65.8/8.02 cm/sec. Prox CCA 95.6/9.38 cm/sec. Mid CCA 72.1/6.45 cm/sec. Mid CCA 107.0/12.9 cm/sec. Dist CCA 76.8/8.79 cm/sec. Dist CCA 107.0/12.9 cm/sec. Prox ICA 62.9/10.6 cm/sec. Prox ICA 97.9/13.5 cm/sec. Mid ICA 59.7/10.6 cm/sec. Mid ICA 83.3/20.5 cm/sec. Dist ICA 110.0/18.8 cm/sec. Dist ICA 93.8/22.3 cm/sec. Rt. ICA/CCA = 110.0/72.1=1.5. Lt. ICA/CCA = 97.9/107.0=0.9. Prox ECA 124.0/0.0 cm/sec. Prox ECA 129.0/0.0 cm/sec. Rt. Vert. 40.5/9.82 cm/sec. Lt. Vert. 40.1/7.86 cm/sec. Right Extracranial There is intimal thickening but no significant atherosclerotic plaque noted in the right common carotid artery. There is intimal thickening but no significant atherosclerotic plaque noted in the right internal carotid artery. The tortuous nature of the right distal internal carotid artery may result in flow velocities overestimating the degree of stenosis. There is no significant atherosclerotic plaque noted in the right external carotid artery. Antegrade flow is noted in the right vertebral artery. There is heterogeneous, irregular atherosclerotic plaque noted in the right bulb. Left Extracranial There is intimal thickening but no significant atherosclerotic plaque noted in the left common carotid artery. There is intimal thickening but no significant atherosclerotic plaque noted in the left internal carotid artery. There is intimal thickening but no significant atherosclerotic plaque noted in the left external carotid artery. Antegrade flow is noted in the left vertebral artery. Procedure Carotid Duplex 17118. Exam performed portable in patient room. Interpretation Summary No hemodynamically significant plague within the right internal carotid with <50% stenosis and tortuosity noted. No hemodynamically significant plague within the left internal carotid with <50% stenosis. Normal flow bilateral external carotids Patent and antegrade vertebrals bilaterally Ordering Physician: Duncan Paris Referring Physician: Wili Nelson Performed By: Jailene Parra, JOSSELINE, RVT
--- NOTE | 2018-07-09 13:50 | PCM.CONS.GEN ---
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 Per patient he woke up yesterday (07/08/18) with left arm weakness and was dropping objects, per patient these symptoms would have lasted for about half hour before resolving, denies any MALDONADO, slurred speech, visual disturbances, neck pain, low back pain of new onset or radicular symptoms. He is on Eliquis for VTE. Per patient he lives with his , denies any falls, does not use cane or walker to ambulate, and does not need any assistance for his ADLs. MRI brain done on admission reported to show nothing acute. MRA head/neck could not be obtained as Radiology department did not have the necessary neck coil of his size for evaluation. Per nurse taking care of the patient he had some slurred speech and confusion this morning when he woke up (07/09/18) and had repeat CT head which reported no acute changes. Patient also found to have UTI and has been started on Antibiotics by hospitalist. At present patient is at baseline and denies any MALDONADO, visual disturbances, speech disturbances, focal motor weakness or sensory loss. 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) BPH (benign prostatic hyperplasia) (Chronic) Super obesity (Chronic) Debility (Chronic) Noncompliance (Chronic) with CPAP and follow up and with diet COPD (chronic obstructive pulmonary disease) (Chronic) Type II diabetes mellitus, uncontrolled (Chronic) History of depression (Chronic) History of other venous thrombosis and embolism (Chronic) HLD (hyperlipidemia) (Chronic) HTN (hypertension) (Chronic) NILO (obstructive sleep apnea) (Chronic) BiPAP ST 18/12 cm of water Chronic renal failure, stage 3 (moderate) (Chronic) Bifascicular bundle branch block (Chronic) Colon polyps (Chronic) Family history of colon cancer (Chronic) Medical History: Medical History (Last Reviewed 06/16/18 @ 14:31 by Aicha Szymanski NP-C) Status post placement of implantable loop recorder (Chronic) Z95.818 Thromboembolism (Chronic) I74.9 BPH (benign prostatic hyperplasia) (Chronic) N40.0 Super obesity (Chronic) E66.9 Cystitis (Resolved) N30.90 Debility (Chronic) R53.81 Noncompliance (Chronic) Z91.19 with CPAP and follow up and with diet COPD (chronic obstructive pulmonary disease) (Chronic) J44.9 Type II diabetes mellitus, uncontrolled (Chronic) E11.65 History of depression (Chronic) Z86.59 History of other venous thrombosis and embolism (Chronic) Z86.718 HLD (hyperlipidemia) (Chronic) E78.5 HTN (hypertension) (Chronic) I10 NILO (obstructive sleep apnea) (Chronic) G47.[address] 18/12 cm of water Chronic renal failure, stage 3 (moderate) (Chronic) N18.3 Bifascicular bundle branch block (Chronic) I45.2 Colon polyps (Chronic) Family history of colon cancer (Chronic) Z80.0 History of kidney stones (Resolved) Z87.442 MRSA (methicillin resistant staph aureus) culture positive (Resolved) Z22.322 Allergies MARGIE Inhibitors Allergy (Unknown, Verified 07/08/18 10:42) Unknown cefepime Allergy (Verified 07/08/18 10:42) Other WEAKNESS & FALLING ipodate [Ipodate] Allergy (Verified 07/08/18 10:42) Shortness of breath levofloxacin [Levofloxacin] Allergy (Verified 07/08/18 10:42) Anaphylaxis lisinopril Allergy (Verified 07/08/18 10:42) Shortness of breath ofloxacin Allergy (Verified 07/08/18 10:42) Unknown Quinolones Allergy (Verified 07/08/18 10:42) Anaphylaxis Home Medications: Ambulatory Orders Medication Instructions Recorded Atorvastatin Calcium [Lipitor] 40 mg PO QHS 05/29/15 Citalopram [Celexa] 40 mg PO DAILY 05/29/15 Fluticasone 0.05% [Flonase Nasal 1 spray NASAL BID PRN 05/29/15 [place]] Tamsulosin HCl [Flomax] 0.8 mg PO DAILY 07/08/16 Losartan Potassium [Cozaar] 100 mg PO DAILY 07/24/17 Insulin Aspart [Novolog Flexpen] 13 units SC TIDAC #1 flexpen 08/11/17 albuterol sulfate 90 mcg/actuation 2 puff INHALATION Q4H PRN #1 ea 02/08/18 breath activated powder inhaler Aspirin E.C. [Ecotrin] 81 mg PO DAILY 03/11/18 Gabapentin [Neurontin] 300 mg PO 1700,2200 03/11/18 Insulin Detemir [Levemir FlexPen] 50 units SUBCUT BID 03/11/18 Isosorbide Mononitrate [Imdur] 30 mg PO DAILY 03/12/18 Apixaban [Eliquis] 5 mg PO BID #60 tab 03/15/18 Cefdinir 300 mg PO BID 07/08/18 Metoprolol Succinate 25 mg PO DAILY 07/08/18 Surgical History: - - Circumcision, excision of kidney stone Psychiatric History: Depression Smoking Status: Former smoker Tobacco Use: Cigars - *Family History Maternal Family History: Family History (Last Reviewed 06/16/18 @ 14:31 by BETTYE Aguilera) Father Colon cancer Mother Cancer Sister CAD (coronary artery disease) History Items: Cancer - Patient's mother of cancer but he is not sure what kind of cancer. Paternal Family History: Family History (Last Reviewed 06/16/18 @ 14:31 by BETTYE Aguilera) Father Colon cancer Mother Cancer Sister CAD (coronary artery disease) History Items: Cancer - Father of colon cancer Offspring Family History: Family History (Last Reviewed 06/16/18 @ 14:31 by BETTYE Aguilera) Father Colon cancer Mother Cancer Sister CAD (coronary artery disease) History Items: - - He has a son who is morbidly obese and suffers from breathing problems and heart problems. Patient Problems: Active and Suspected Problems (Last Reviewed 06/16/18 @ 14:31 by BETTYE Aguilera) TIA (Acute) - Physical Exam Vital Signs Temp Pulse Resp BP Pulse Ox 97.6 F L 68 16 159/78 H 94 07/09/18 08:25 07/09/18 11:00 07/09/18 08:25 07/09/18 08:25 07/09/18 08:25 Oxygen Delivery Method Room Air Weight: 172.365 kg Body Mass Index (BMI) 51.5 Finger Stick Blood Glucose 382 Intake and Output for Last 24 Hours 07/07/18 07/08/18 07/09/18 23:59 23:59 23:59 Intake Total 680 / 680 160 / 160 Balance 680 / 680 160 / 160 Laboratory Tests Past 24 Hrs 07/08/18 07/09/18 14:30 06:42 Troponin I < 0.015 Triglycerides 190 Cholesterol 142 LDL Cholesterol 70 VLDL Cholesterol 38 HDL Cholesterol 34 L TSH 2.17 POC Glucose 07/09/18 07/09/18 07/08/18 12:37 07:01 21:23 POC Glucose 283 H 174 H 206 H 07/08/18 16:36 POC Glucose 215 H Assessment/Plan All Active Problems (Last Reviewed 06/16/18 @ 14:31 by ANGELINA AguileraC) TIA (Acute) Symptomatic sinus bradycardia (Acute) Recurrent falls (Acute) Cystitis (Resolved) History of kidney stones (Resolved) MRSA (methicillin resistant staph aureus) culture positive (Resolved) The patient is a 77 year old M with PMH HTN, HLD, DM, Morbid Obesity, NILO, CKD, 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 Per patient he woke up yesterday (07/08/18) with left arm weakness and was dropping objects, per patient these symptoms would have lasted for about half hour before resolving, denies any MALDONADO, slurred speech, visual disturbances, neck pain, low back pain of new onset or radicular symptoms. He is on Eliquis for VTE. Per patient he lives with his , denies any falls, does not use cane or walker to ambulate, and does not need any assistance for his ADLs. MRI brain done on admission reported to show nothing acute. MRA head/neck could not be obtained as Radiology department did not have the necessary neck coil of his size for evaluation. Per nurse taking care of the patient he had some slurred speech and confusion this morning when he woke up (07/09/18) and had repeat CT head which reported no acute changes. Patient also found to have UTI and has been started on Antibiotics by hospitalist. At present patient is at baseline and denies any MALDONADO, visual disturbances, speech disturbances, focal motor weakness or sensory loss. Impression -Possible TIA -Encephalopathy Plan -MRI brain report reviewed -On Eliquis for VTE -MRA head/neck could not be obtained per radiology department. -Check carotid ultrasound -Lipitor -Check LDL, Hba1c and TTE -GI/DVT prophylaxis -stroke risk factors discussed and stroke education provided -Fall precautions -PT/TO/ST -Further medical management per hospitalist team -Neurology followup in 4 weeks as outpatient -Please call with questions if any -Thank you for allowing us to participate in patient's care and management Code Visit Inpatient E&M: [id number] Init Hosp L3
[2018-07-09] MEDS: 0.9% Saline Lock 10 ML Syringe IV (14:06)
[2018-07-09] MEDS: Lidocaine Jelly 2% 20 ML Syringe (URO-JET) 20 APPLIC TOPICAL (14:30)
[2018-07-09 14:47] LABS: Hemoglobin A1c 10.4 % (4.2-6.3)
--- NOTE | 2018-07-09 16:30 | PCM.PN.HOSP ---
Patient Problems: Active and Suspected Problems (Last Reviewed 06/16/18 @ 14:31 by BETTYE Aguilera) TIA (Acute) Subjective: Seen and examined in the morning and then afternoon. 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 Does not look any change in neurological status since yesterday. Vitals/I&O's: Vital Signs Temp Pulse Resp BP Pulse Ox 97.7 F L 56 L 20 H 146/73 H 96 07/09/18 14:00 07/09/18 14:00 07/09/18 14:00 07/09/18 14:00 07/09/18 14:00 Oxygen Delivery Method Room Air Weight: 380 lb Body Mass Index (BMI) 51.5 Finger Stick Blood Glucose 382 Intake and Output for Last 24 Hours 07/07/18 07/08/18 07/09/18 23:59 23:59 23:59 Intake Total 680 / 680 860 / 860 Output Total 300 / 300 Balance 680 / 680 560 / 560 General: Alert, Oriented x3, Cooperative HEENT: Atraumatic, PERRLA, EOMI, Normocephalic Neck: Supple, No JVD, Negative Carotid Bruits Lungs: No rhonchi, No wheeze, No rales, Diminished - Air entry diminished in bilateral lung bases Cardiovascular: Regular rate, No murmurs Abdomen: Bowel Sounds Present, Soft, Non Tender, Non-Distended, - - Urinary incontinence. History infection around the groin and lower abdominal wall. Penis is buried in perineum. Patient had to straight catheterized for urine culture as patient had positive UA. Extremities: Capillary Refill Less than 3 Seconds, Edema, - Skin: No rashes, No breakdown, - - Bilateral lymphedema with Annika pigmentation. Venous hypertension. Musculoskeletal: No Tenderness to Palpation of Joints or Extremities, Arthritic Changes, Muscle Wasting Neurological: Cranial nerves II-XII grossly intact Psych/Mental Status: Normal Affect, Appropriate Laboratory Results 07/08/18 16:36: POC Glucose 215 H 07/08/18 21:23: POC Glucose 206 H 07/09/18 06:42: Triglycerides 190, Cholesterol 142, LDL Cholesterol 70, VLDL Cholesterol 38, HDL Cholesterol 34 L 07/09/18 06:42: Hemoglobin A1c 10.4 H 07/09/18 07:01: POC Glucose 174 H 07/09/18 12:37: POC Glucose 283 H Current Medications Albuterol Sulfate (Ventolin Aerosols) 2.5 mg INHALATION Q4H PRN PRN PRN Reason: SOB/WHEEZE Apixaban (Eliquis) 5 mg PO BID [facility] Last Admin: 07/09/18 12:40 Dose: 5 mg Atorvastatin Calcium (Lipitor) 80 mg PO QHS [facility] Last Admin: 07/08/18 21:29 Dose: 80 mg Citalopram Hydrobromide (Celexa) 40 mg PO DAILY [facility] Last Admin: 07/09/18 12:40 Dose: 40 mg Dextrose (D50w Syringe) 0 gm IV X1 PRN; Protocol PRN Reason: Hypoglycemia Fluconazole (Diflucan) 100 mg PO DAILY [facility] Stop: 07/17/18 10:00 Fluticasone Propionate (Flonase Nasal [place]) 1 spray NASAL BID PRN PRN PRN Reason: NASAL CONGESTION Gabapentin (Neurontin) 300 mg PO 1700,2200 [facility] Last Admin: 07/08/18 21:29 Dose: 300 mg Glucagon () 1 mg IM .X1 PRN PRN Reason: Hypoglycemia Aztreonam 1 gm/ Sodium (Chloride) 100 mls @ 150 mls/hr IV Q12 [facility] Insulin Glargine (Lantus (Bkc)) 50 units SC BID [facility] Last Admin: 07/09/18 13:05 Dose: 50 u Insulin Human Lispro (Humalog Kwikpen (Bkc)) 18 unit SC TIDAC [facility] Last Admin: 07/08/18 16:37 Dose: 18 u Insulin Human Lispro (Humalog Kwikpen (Bkc)) 0 unit SQ ACHS [facility]; Protocol Last Admin: 07/09/18 12:42 Dose: 6 u Isosorbide Mononitrate (Imdur) 30 mg PO DAILY [facility] Last Admin: 07/09/18 12:41 Dose: 30 mg Losartan Potassium (Cozaar) 100 mg PO DAILY [facility] Last Admin: 07/09/18 12:40 Dose: 100 mg Nystatin (Mycostatin Powder) 1 applic TOPICAL TID [facility]; Protocol Tamsulosin HCl (Flomax) 0.8 mg PO DAILY [facility] Last Admin: 07/09/18 12:41 Dose: 0.8 mg Medical Necessity - Tobacco Use Smoking Status: Former smoker Tobacco Use: Cigars Assessment/Plan All Active Problems (Last Reviewed 06/16/18 @ 14:31 by BETTYE Aguilera) TIA (Acute) Symptomatic sinus bradycardia (Acute) Recurrent falls (Acute) Cystitis (Resolved) History of kidney stones (Resolved) MRSA (methicillin resistant staph aureus) culture positive (Resolved) The patient is a 77 year old M with multiple comorbidities as listed above including sinus bradycardia, COPD, type 2 diabetes mellitus, obstructive sleep apnea, bifascicular block status post implantable loop recorder and history of VT E came to ER with sudden onset of left hand paresthesia when he woke up at 9 AM and mild slurring speech and mild incomprehensible as per her daughter but patient denies receptive aphasia. Patient denies change in vision or floaters. Denies any other weakness or paresthesia in the lower extremities. Denies previous stroke. The patient was last admitted in March 2018 for syncope most probably secondary to bradycardia for which metoprolol dose was decreased and patient had implantable loop recorder subsequently. In ED, basic blood workup is on baseline, except BUN 21, creatinine 1.97 which is similar to baseline 21/1.78 in February 2018. Troponins are negative. TSH normal. Chest x-ray shows cardiomegaly. 1. TIA/left hand peripheral neuropathy/cervical neuropathy: Patient is being admitted in PCU. MRI brain ordered and if positive for stroke we will do full workup including head and neck MRA. Patient is not candidate for CT angiogram because of CKD. Patient had recent echo on 03/12/2018 which reported as stage II diastolic dysfunction with EF 55% with no regional wall motion abnormality. Mild TR, RVSP 50 mmHg. No pericardial effusion. Mitral valve not reported probably from technically difficult study. Patient had a stress echo on 03/11/2018 and reported as no evidence of ischemia. On aspirin and statin. Control BP and glucose as per stroke guidelines. Neurology consult. PT/OT/speech evaluation. Fasting profile shows LDL 70, HDL 34, total cholesterol 142 within normal limit. MRI brain does not show acute change/infarct. Subsequently repeat CT head was done today does not show acute change since prior study. Since MRI could not be done as would not have appropriate coil for patient, carotid doppler ordered 2. Sinus bradycardia with bifascicular block: Patient heart rate runs in 40/min. Hold beta-zen. EKG shows marked sinus bradycardia, QRS duration 162 ms with first-degree AV block at 42 bpm, LAD, right bundle branch block and left anterior fascicular block. Patient follows Dr. phillips. Discussed with Dr. phillips and discontinue aspirin as the patient is on Eliquis. 3. CKD stage III: BUN 21, creatinine 1.97 is on baseline, which is similar 1.95 in February 2018. Monitor electrolytes and kidney function. Patient is not on diuretic at home but on Cozaar. 4. Pyuria in urine: Patient denies lower urinary tract symptoms including burning micturition or increased frequency but he has an urge incontinence and penis is buried. Straight cath was done after nurse failed and the urine was collected and sent for urine culture. With history of allergy to cefepime and fluoroquinolones, patient is started on aztreonam. Hypertension: Continue Cozaar. Blood pressure is 145/59, 128/54. 5. Diabetes mellitus type 2: Blood sugar is uncontrolled. Glucose 383 on BMP. Accu-Chek before meals and at bedtime. Pre-meal Humalog insulin increased. On Levemir. A1c 10.4. 6. Other chronic comorbidities include history of VT, BPH, COPD, depression, obstructive sleep apnea on BiPAP. Home medication reconciliation done. Laboratory Results 07/08/18 21:23: POC Glucose 206 H 07/09/18 06:42: Triglycerides 190, Cholesterol 142, LDL Cholesterol 70, VLDL Cholesterol 38, HDL Cholesterol 34 L 07/09/18 06:42: Hemoglobin A1c 10.4 H 07/08/18 10:50: POC Glucose 382 H 07/08/18 10:50: WBC 5.8, RBC 4.54 L, Hgb 13.0, Hct 39.6 L, MCV 87.2, MCH 28.6, MCHC 32.8, RDW 13.3, RDW Differential 41.2, Plt Count 218, MPV 9.6, Immature Gran % (Auto) 0.500, Neut % (Auto) 74.0 H, Lymph % (Auto) 14.7 L, [place] % (Auto) 7.6, Eos % (Auto) 2.9, Baso % (Auto) 0.3, Absolute Neuts (auto) 4.3, Absolute Lymphs (auto) 0.85, Total Counted Not Reportable 07/08/18 10:50: PT 15.0 H, INR 1.2, APTT 35.8 07/08/18 10:50: Sodium 136, Potassium 4.3, Chloride 103, Carbon Dioxide 26.0, Anion Gap 7, BUN 21 H, Creatinine 1.97 H, Estim Creat Clear Calc 34.47, Est GFR (MDRD) Af Amer 43 L, Est GFR (MDRD) Non-Af 35 L, BUN/Creatinine Ratio 10.7, Glucose 383 H, Calcium 8.8, Troponin I < 0.015 07/08/18 13:20: Urine Color Yellow, Urine Clarity Cloudy, Urine pH 5.0, Ur Specific [place] 1.015, Urine Protein 100 H, Urine Glucose (UA) 1000 H, Urine Ketones Negative, Urine Occult Blood 250 H, Urine Nitrite Negative, Urine Bilirubin Negative, Urine Urobilinogen Normal, Ur Leukocyte Esterase 500 H, Urine RBC 50-100 SEEN, Urine WBC 50-100 SEEN, Ur Squamous Epith Cells 0 SEEN, Urine Bacteria 1+, Urine Mucus 0 SEEN 07/08/18 14:30: Troponin I < 0.015, TSH 2.17 Later on, MRI brain does not show acute infarct. Clinical Impression(s) from Imaging Studies Brain CT 07/08/18 10:54 IMPRESSION: Chronic involutional changes of the brain. Chest X-Ray 07/08/18 10:54 IMPRESSION: Cardiomegaly. Brain MRI 07/08/18 14:03 IMPRESSION: Mild atrophy and periventricular white matter ischemic changes without evidence for acute infarct Code Visit OBSV E&M: [id number] Subsequent observation care L3
[2018-07-09] MEDS: Fluconazole 100 MG Tablet 200 MG PO (16:48)
[2018-07-09 16:55] LABS: Bedside Glucose 285 mg/dL (70-110)
[2018-07-09] MEDS: Gabapentin 300 MG Capsule PO ×2 (17:54→21:19)
[2018-07-09] MEDS: Insulin Lispro 100 UNIT/ML INSULN.PEN 18 UNIT SC (17:59)
[2018-07-09] MEDS: Atorvastatin Calcium 80 MG Tablet PO (21:19)
[2018-07-09] MEDS: Nystatin Powder 15gm Bottle 1 APPLIC TOPICAL (21:19)
[2018-07-09 21:50] LABS: Bedside Glucose 235 mg/dL (70-110)
[2018-07-10] VITALS: BP 146/84; PULSE 56; RESP 20; TEMP 36.6; O2SAT 95
[2018-07-10 01:40] VITALS: BMI 51.5
[2018-07-10 02:59] VITALS: PULSE 62
[2018-07-10 06:00] VITALS: BP 140/79; PULSE 72; RESP 20; TEMP 36.7; O2SAT 93
[2018-07-10] MEDS: Nystatin Powder 15gm Bottle 1 APPLIC TOPICAL (06:15)
[2018-07-10 06:39] LABS: Anion Gap 8 (5-15); BUN 29 mg/dL (7-18); BUN/Creat Ratio 15.4 RATIO (10-20); Calcium,Total 8.7 mg/dL (8.5-10.1); Chloride 105 mmol/L (98-107); Creatinine, Serum 1.88 mg/dL (0.70-1.30); EST Glomerular Filtration Rate 37 mL/min (>60); Est Glom Filt Rate - Afr Amer 45 mL/min (>60); Estimated Creatinine Clearance 36.12 ml/min; Glucose 200 mg/dL (74-106); Potassium 4.3 mmol/L (3.5-5.1); Sodium Level 140 mmol/L (136-145)
[2018-07-10 07:10] LABS: Bedside Glucose 205 mg/dL (70-110)
[2018-07-10 07:40] VITALS: PULSE 80
--- NOTE | 2018-07-10 09:19 | PCM.DC ---
- Discharge Diagnoses Current Active Problems: Current Active and Chronic Problems (Last Reviewed 06/16/18 @ 14:31 by BETTYE Aguilera) TIA (Acute) You will use the following diet at home:: Calorie/Carbohydrate Controlled (specify 1200, 1400, etc), Cardiac Your food should be the consistency of: Regular Discharge Activity: May Not Drive Call your doctor if you observe: Fever of 101 or Higher, Change in Color, Inability to have a bowel movement, Shortness of breath, Swelling in the ankles, Calf discomfort Allergies/Adverse Reactions: Allergies MARGIE Inhibitors Allergy (Unknown, Verified 07/08/18 10:42) Unknown cefepime Allergy (Verified 07/08/18 10:42) Other WEAKNESS & FALLING ipodate [Ipodate] Allergy (Verified 07/08/18 10:42) Shortness of breath levofloxacin [Levofloxacin] Allergy (Verified 07/08/18 10:42) Anaphylaxis lisinopril Allergy (Verified 07/08/18 10:42) Shortness of breath ofloxacin Allergy (Verified 07/08/18 10:42) Unknown Quinolones Allergy (Verified 07/08/18 10:42) Anaphylaxis Medications to take at Discharge Atorvastatin Calcium [Lipitor] 40 mg PO QHS 05/29/15 Citalopram [Celexa] 40 mg PO DAILY 05/29/15 Fluticasone 0.05% [Flonase Nasal [place]] 1 spray NASAL BID PRN 05/29/15 Tamsulosin HCl [Flomax] 0.8 mg PO DAILY 07/08/16 Losartan Potassium [Cozaar] 100 mg PO DAILY 07/24/17 Insulin Aspart [Novolog Flexpen] 13 units SC TIDAC #1 flexpen 08/11/17 albuterol sulfate 90 mcg/actuation breath activated powder inhaler 2 puff INHALATION Q4H PRN #1 ea 02/08/18 Gabapentin [Neurontin] 300 mg PO 1700,2200 03/11/18 Insulin Detemir [Levemir FlexPen] 50 units SUBCUT BID 03/11/18 Isosorbide Mononitrate [Imdur] 30 mg PO DAILY 03/12/18 Apixaban [Eliquis] 5 mg PO BID #60 tab 03/15/18 Cefdinir 300 mg PO BID 07/08/18 Metoprolol Succinate 25 mg PO DAILY 07/08/18 Fluconazole [Diflucan] 100 mg PO DAILY #7 tablet 07/10/18 The following prescriptions were given: Fluconazole [Diflucan] 100 mg PO DAILY #7 tablet Primary Care Physician: Wili Nelson DO [Primary Care Provider] - Please follow up with your Primary Care Physician in: in 1-2 week Test Results: Test results from this visit will be discussed in further detail at your follow-up appointment, if applicable. Please Follow Up With: Greg Toscano MD When: as scheduled Please Follow Up With: Mau Bowser MD When: recurrent UTI, Phimosis, ya
--- NOTE | 2018-07-10 09:36 | DS.PCM_ITS ---
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) BPH (benign prostatic hyperplasia) (Chronic) Super obesity (Chronic) Debility (Chronic) Noncompliance (Chronic) with CPAP and follow up and with diet COPD (chronic obstructive pulmonary disease) (Chronic) Type II diabetes mellitus, uncontrolled (Chronic) History of depression (Chronic) History of other venous thrombosis and embolism (Chronic) HLD (hyperlipidemia) (Chronic) HTN (hypertension) (Chronic) NILO (obstructive sleep apnea) (Chronic) BiPAP ST 18/12 cm of water Chronic renal failure, stage 3 (moderate) (Chronic) Bifascicular bundle branch block (Chronic) Colon polyps (Chronic) Family history of colon cancer (Chronic) Hospital Course and Treatment Operations: None Summary of Care Provided: [] The patient is a 77 year old M with multiple comorbidities as listed above including sinus bradycardia, COPD, type 2 diabetes mellitus, obstructive sleep apnea, bifascicular block status post implantable loop recorder and history of VT E came to ER with sudden onset of left hand paresthesia when he woke up at 9 AM and mild slurring speech and mild incomprehensible as per her daughter but patient denies receptive aphasia. Patient denies change in vision or floaters. Denies any other weakness or paresthesia in the lower extremities. Denies previous stroke. The patient was last admitted in March 2018 for syncope most probably secondary to bradycardia for which metoprolol dose was decreased and patient had implantable loop recorder subsequently. In ED, basic blood workup is on baseline, except BUN 21, creatinine 1.97 which is similar to baseline 21/1.78 in February 2018. Troponins are negative. TSH normal. Chest x-ray shows cardiomegaly. 1. 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 MRI brain ordered and if positive for stroke we will do full workup including head and neck MRA. Patient is not candidate for CT angiogram because of CKD. Patient had recent echo on 03/12/2018 which reported as stage II diastolic dysfunction with EF 55% with no regional wall motion abnormality. Mild TR, RVSP 50 mmHg. No pericardial effusion. Mitral valve not reported probably from technically difficult study. Patient had a stress echo on 03/11/2018 and reported as no evidence of ischemia. On aspirin and statin. Control BP and glucose as per stroke guidelines. Neurology consult. PT/OT/speech evaluation. Fasting profile shows LDL 70, HDL 34, total cholesterol 142 within normal limit. MRI brain does not show acute change/infarct. Subsequently repeat CT head was done today does not show acute change since prior study. Since MRI could not be done as would not have appropriate coil for patient. Carotid Doppler does not show hemodynamically significant stenosis or occlusion. Ischemic infarct ruled out 2. Sinus bradycardia with bifascicular block: Patient heart rate runs in 40/min. Hold beta-zen. EKG shows marked sinus bradycardia, QRS duration 162 ms with first-degree AV block at 42 bpm, LAD, right bundle branch block and left anterior fascicular block. Patient follows Dr. phillips. Discussed with Dr. phillips and discontinue aspirin as the patient is on Eliquis. 3. CKD stage III: BUN 21, creatinine 1.97 is on baseline, which is similar 1.95 in February 2018. Monitor electrolytes and kidney function. Patient is not on diuretic at home but on Cozaar. 4. 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 Straight cath preliminary urine culture shows gram-negative rods, possible Pseudomonas more than 100,000. With history of allergy to cefepime and fluoroquinolones, patient was started on aztreonam. Patient has history of recurrent UTI and follows Dr. Bowser. Discussed with Dr. Bowser and he knows the patient very well. He had cystoscopy and penoplasty in the past. Patient has poor perineal hygiene secondary to urinary incontinence and noncompliance. He had several rounds of antibiotics and developed resistance. He thinks positive UAs probably colonization and does not need antibiotic. Before admission,patient completed 7 days of cefdinir on 07/08/2017. Antibiotic discontinued. Hypertension: Continue Cozaar. Blood pressure is 145/59, 128/54. 5. Diabetes mellitus type 2: Blood sugar is uncontrolled. Glucose 383 on BMP. Accu-Chek before meals and at bedtime. Pre-meal Humalog insulin increased. On Levemir. A1c 10.4. 6. Other chronic comorbidities include history of VT, BPH, COPD, depression, obstructive sleep apnea on BiPAP. Home medication reconciliation done. Discharge medication reconciliation done. Discharge follow-up instructions completed. Discharge process discussed with the patient and all questions were answered to patient's satisfaction.. Subjective: Seen and examined. Patient has history of recurrent UTI and follows Dr. Bowser. Discussed with Dr. Bowser in the morning and he knows the patient very well. He had cystoscopy and penoplasty in the past. Patient has poor perineal hygiene secondary to urinary incontinence and noncompliance. He had several rounds of antibiotics and a blood monitored a stent. He thinks positive UAs probably colonization and does not need antibiotic. Before admission,patient completed 7 days of cefdinir on 07/08/2017 - Physical Exam General: Alert, Oriented x3, Cooperative HEENT: Atraumatic, PERRLA, EOMI, Normocephalic Neck: Supple, No JVD, Negative Carotid Bruits Lungs: Clear to auscultation, Diminished - Air entry diminished in bilateral lung bases Cardiovascular: Regular rate, Regular Rhythm, Normal S1, Normal S2, No murmurs Abdomen: Bowel Sounds Present, Soft, Non Tender, Non-Distended, - - Poor perineal hygiene. Fibrosis around the urethral opening with chronic thickening of preputial skin. Candidal infection looks better since yesterday. Extremities: Capillary Refill Less than 3 Seconds, Edema Skin: No rashes, No breakdown Musculoskeletal: No Tenderness to Palpation of Joints or Extremities Neurological: Cranial nerves II-XII grossly intact Psych/Mental Status: Normal Affect, Appropriate Vital Signs Temp Pulse Resp BP Pulse Ox 98.0 F 80 20 H 140/79 H 93 07/10/18 06:00 07/10/18 07:40 07/10/18 06:00 07/10/18 06:00 07/10/18 06:00 Oxygen Delivery Method Room Air Weight: 380 lb Body Mass Index (BMI) 51.5 Finger Stick Blood Glucose 382 Intake and Output for Last 24 Hours 07/08/18 07/09/18 07/10/18 23:59 23:59 23:59 Intake Total 680 / 680 1749 / 1749 100 / 100 Output Total 450 / 450 Balance 680 / 680 1299 / 1299 100 / 100 Laboratory Tests Past 24 Hrs 07/09/18 07/10/18 06:42 05:50 Sodium 140 Potassium 4.3 Chloride 105 Carbon Dioxide 27.0 Anion Gap 8 BUN 29 H Creatinine 1.88 H Estim Creat Clear Calc 36.12 Est GFR (MDRD) Af Amer 45 L Est GFR (MDRD) Non-Af 37 L BUN/Creatinine Ratio 15.4 Glucose 200 H Hemoglobin A1c 10.4 H Calcium 8.7 POC Glucose 07/10/18 07/09/18 07/09/18 07:00 21:04 16:45 POC Glucose 205 H 235 H 285 H 07/09/18 12:37 POC Glucose 283 H Discharge Activity: May Not Drive Call your doctor if you observe: Fever of 101 or Higher, Change in Color, Inability to have a bowel movement, Shortness of breath, Swelling in the ankles, Calf discomfort Home Medications: Medications to take at Discharge Atorvastatin Calcium [Lipitor] 40 mg PO QHS 05/29/15 Citalopram [Celexa] 40 mg PO DAILY 05/29/15 Fluticasone 0.05% [Flonase Nasal [place]] 1 spray NASAL BID PRN 05/29/15 Tamsulosin HCl [Flomax] 0.8 mg PO DAILY 07/08/16 Losartan Potassium [Cozaar] 100 mg PO DAILY 07/24/17 Insulin Aspart [Novolog Flexpen] 13 units SC TIDAC #1 flexpen 08/11/17 albuterol sulfate 90 mcg/actuation breath activated powder inhaler 2 puff INHALATION Q4H PRN #1 ea 02/08/18 Gabapentin [Neurontin] 300 mg PO 1700,2200 03/11/18 Insulin Detemir [Levemir FlexPen] 50 units SUBCUT BID 03/11/18 Isosorbide Mononitrate [Imdur] 30 mg PO DAILY 03/12/18 Apixaban [Eliquis] 5 mg PO BID #60 tab 03/15/18 Metoprolol Succinate 25 mg PO DAILY 07/08/18 Fluconazole [Diflucan] 100 mg PO DAILY #7 tablet 07/10/18 Following Prescrptions Were Given to Patient: Fluconazole [Diflucan] 100 mg PO DAILY #7 tablet Primary Care Physician: Wili Nelson DO [Primary Care Provider] - Please follow up with your Primary Care Physician in: in 1-2 week Please Follow Up With: Greg Phillips MD When: as scheduled Please Follow Up With: Mau Bowser MD When: recurrent UTI, Phimosis, ya Medical Necessity - Tobacco Use Smoking Status: Former smoker Tobacco Use: Cigars Meaningful Use Info Meaningful Use Diagnoses (Choose all that apply): None applicable Code Visit OBSV E&M: 23413 Observation care discharge
[2018-07-10] MEDS: Isosorbide Mononitrate 30 MG Tablet PO (09:59)
[2018-07-10] MEDS: Tamsulosin HCl 0.4 MG Capsule 0.8 MG PO (09:59)
[2018-07-10] MEDS: Fluconazole 100 MG Tablet PO (10:00)
[2018-07-10] MEDS: Losartan Potassium 100 MG Tablet PO (10:00)
[2018-07-10] MEDS: APIXABAN 5 MG TABLET PO (10:00)
[2018-07-10] MEDS: Citalopram 40 MG TABLET PO (10:00)
[2018-07-10] MEDS: Insulin Lispro 100 UNIT/ML INSULN.PEN 18 UNIT SC ×2 (10:02→12:29)
[2018-07-10] MEDS: Insulin Lispro 100 UNIT/ML INSULN.PEN SQ ×2 (10:03→12:29)
[2018-07-10 11:15] VITALS: PULSE 89
[2018-07-10 12:35] VITALS: BP 133/75; PULSE 76; RESP 16; TEMP 36.9; O2SAT 94
[2018-07-10 12:36] LABS: Bedside Glucose 242 mg/dL (70-110)
--- OUTSIDE RECORDS SUMMARY | 2018-09-12 03:14 | XMS RPT_ITS ---
:1940 Author Organization [place] Support Name Relationship Address Phone MILAGRO LOUIS Unavailable [address] + [place] [address] R Unavailable Unavailable Unavailable CONNOR, ALICE Unavailable [address] + [place] [address] MILAGRO [facility] Unavailable [address] + [place] [address] R Unavailable Unavailable Unavailable CONNOR, ALICE Unavailable [address] + [place] [address] MILAGRO [facility] Unavailable [address] + [place] [address] R Unavailable Unavailable Unavailable CONNOR, ALICE Unavailable [address] + [place] [address] MILAGRO [facility] Unavailable [address] + [place] [address] R Unavailable Unavailable Unavailable CONNOR, ALICE Unavailable [address] + [place] [address] MILAGRO [facility] Unavailable [address] + [place] [address] R Unavailable Unavailable Unavailable CONNOR, ALICE Unavailable [address] + [place] [address] MILAGRO [facility] Unavailable [address] + [place] [address] R Unavailable Unavailable Unavailable CONNOR, ALICE Unavailable [address] + [place] [address] MILAGRO [facility] Unavailable [address] + [place] [address] R Unavailable Unavailable Unavailable CONNOR, ALICE Unavailable [address] + [place] [address] MILAGRO [facility] Unavailable [address] + [place] [address] R Unavailable Unavailable Unavailable CONNOR, ALICE Unavailable [address] + [place] [address] JUVE LOUISENA Unavailable [address] + [place] [address] R Unavailable Unavailable Unavailable CONNOR, ALICE Unavailable [address] + [place] [address] MILAGRO [facility] Unavailable [address] + [place] [address] R Unavailable Unavailable Unavailable CONNOR, ALICE Unavailable [address] + [place] [address] MIL[facility]RO [facility] Unavailable [address] + [place] [address] R Unavailable Unavailable Unavailable CONNOR, ALICE Unavailable [address] + [place] [address] MILAGRO [facility] Unavailable [address] + [place] [address] R Unavailable Unavailable Unavailable CONNOR, ALICE Unavailable [address] + [place] [address] MILAGRO [facility] Unavailable [address] + [place] [address] R Unavailable Unavailable Unavailable CONNOR, ALICE Unavailable [address] + [place] [address] JUVE LOUISENA Unavailable [address] + [place] [address] R Unavailable Unavailable Unavailable CONNOR, ALICE Unavailable [address] + [place] [address] LOUISJUVEMILAGRO Unavailable [address] + [place] [address] R Unavailable Unavailable Unavailable CONNOR, ALICE Unavailable [address] + [place] [address] JUVE LOUISENA Unavailable [address] + [place] [address] R Unavailable Unavailable Unavailable CONNOR, ALICE Unavailable [address] + [place] [address] LOUIS, MILAGRO Unavailable [address] + [place] [address] R Unavailable Unavailable Unavailable CONNOR, ADAMARIS Unavailable [address] + [place] [address] LOUIS, MILAGRO Unavailable [address] + [place] [address] R Unavailable Unavailable Unavailable CONNOR, ADAMARIS Unavailable [address] + [place] [address] LOUIS, MILAGRO Unavailable [address] + [place] [address] R Unavailable Unavailable Unavailable CONNOR, ALICE Unavailable [address] + [place] [address] LOUIS, MILAGRO Unavailable [address] + [place] [address] R Unavailable Unavailable Unavailable CONNOR, ADAMARIS Unavailable [address] + [place] [address] LOUIS, MILAGRO Unavailable [address] + [place] [address] R Unavailable Unavailable Unavailable CONNOR, ADAMARIS Unavailable [address] + [place] [address] LOUIS, MILAGRO Unavailable [address] + [place] [address] R Unavailable Unavailable Unavailable CONNOR, ADAMARIS Unavailable [address] + [place] [address] LOUIS, MILAGRO Unavailable [address] + [place] [address] R Unavailable Unavailable Unavailable CONNOR, ALICE Unavailable [address] + [place] [address] OLUIS, MILAGRO Unavailable [address] + [place] [address] R Unavailable Unavailable Unavailable CONNOR, ADAMARIS Unavailable [address] + [place] [address] LOUIS, MILAGRO Unavailable [address] + [place] [address] R Unavailable Unavailable Unavailable CONNOR, ADAMARIS Unavailable [address] + [place] [address] LOUIS, MILAGRO Unavailable [address] + [place] [address] R Unavailable Unavailable Unavailable CONNORHUMBERTOYN Unavailable [address] + [place] [address] LOUIS, MILAGRO Unavailable [address] + [place] [address] R Unavailable Unavailable Unavailable CONNOR, ALICE Unavailable [address] + [place] [address] LOUIS, MILAGRO Unavailable [address] + [place] [address] R Unavailable Unavailable Unavailable CONNOR, ADAMARIS Unavailable [address] + [place] [address] LOUIS, MILAGRO Unavailable [address] + [place] [address] R Unavailable Unavailable Unavailable CONNOR, ALICE Unavailable [address] + [place] [address] LOUIS, MILAGRO Unavailable [address] + [place] [address] R Unavailable Unavailable Unavailable CONNOR, ALICE Unavailable [address] + [place] [address] LOUIS, MILAGRO Unavailable [address] + [place] [address] R Unavailable Unavailable Unavailable CONNOR, ADAMARIS Unavailable [address] + [place] [address] LOUIS, MILAGRO Unavailable [address] + [place] [address] R Unavailable Unavailable Unavailable CONNORHUMBERTOYN Unavailable [address] + [place] [address] LOUIS, MILAGRO Unavailable [address] + [place] [address] R Unavailable Unavailable Unavailable CONNOR, ADAMARIS Unavailable [address] + [place] [address] LOUIS, MILAGRO Unavailable [address] + [place] [address] R Unavailable Unavailable Unavailable CONNOR, ADAMARIS Unavailable [address] + [place] [address] LOUIS, MILAGRO Unavailable [address] + [place] [address] R Unavailable Unavailable Unavailable CONNORADAMARIS Unavailable [address] + [place] [address] LOUIS, MILAGRO Unavailable [address] + [place] [address] R Unavailable Unavailable Unavailable CONNORADAMARIS Unavailable [address] [phone] [place] [address] LOUIS, MILAGRO Unavailable [address] + [place] [address] R Unavailable Unavailable Unavailable CONNORADAMARIS Unavailable [address] [phone]~[phone] [place] [address] LOUIS, MILAGRO Unavailable [address] + [place] [address] R Unavailable Unavailable Unavailable CONNORADAMARIS Unavailable [address] [phone] [place] [address] LOUIS, MILAGRO Unavailable [address] + [place] [address] R Unavailable Unavailable Unavailable CONNORADAMARIS Unavailable [address] [phone]~[phone] [place] [address] LOUIS, MILAGRO Unavailable [address] + [place] [address] R Unavailable Unavailable Unavailable CONNORADAMARIS Unavailable [address] [phone] [place] [address] LOUIS, MILAGRO Unavailable [address] + [place] [address] R Unavailable Unavailable Unavailable CONNORADAMARIS Unavailable [address] [phone] [place] [address] LOUIS, MILAGRO Unavailable [address] + [place] [address] R Unavailable Unavailable Unavailable CONNORADAMARIS Unavailable [address] [phone] [place] [address] L[place]IS, MILAGRO Unavailable [address] + [place] [address] R Unavailable Unavailable Unavailable CONNOR, ADAMARIS Unavailable [address] [phone] [place] [address] LOUIS, MILAGRO Unavailable [address] + [place] [address] R Unavailable Unavailable Unavailable CONNRO, ADAMARIS Unavailable [address] [phone] [place] [address] LOUIS, MILAGRO Unavailable [address] + [place] [address] R Unavailable Unavailable Unavailable CONNOR, ADAMARIS Unavailable [address] [phone]~[phone] [place] [address] LOUIS, MILAGRO Unavailable [address] + [place] [address] R Unavailable Unavailable Unavailable CONNOR, ADAMARIS Unavailable [address] [phone] [place] [address] LOUIS, MILAGRO Unavailable [address] + [place] [address] R Unavailable Unavailable Unavailable CONNOR, ADAMARIS Unavailable [address] [phone] [place] [address] LOUIS, MILAGRO Unavailable [address] + [place] [address] R Unavailable Unavailable Unavailable CONNOR, ADAMARIS Unavailable [address] [phone]~[phone] [place] [address] L[place]IS, MILAGRO Unavailable [address] + [place] [address] R Unavailable Unavailable Unavailable CONNOR, ADAMARIS Unavailable [address] [phone] [place] [address] L[place]IS, MILAGRO Unavailable [address] + [place] [address] R Unavailable Unavailable Unavailable CONNOR, ADAMARIS Unavailable [address] [phone]~[phone] [place] [address] L[place]IS, MILAGRO Unavailable [address] + [place] [address] R Unavailable Unavailable Unavailable CONNOR, ADAMARIS Unavailable [address] [phone] [place] [address] L[place]IS, MILAGRO Unavailable [address] + [place] [address] R Unavailable Unavailable Unavailable CONNOR, ADAMARIS Unavailable [address] [phone] [place] [address] L[place]IS, MILAGRO Unavailable [address] + [place] [address] R Unavailable Unavailable Unavailable CONNOR, ADAMARIS Unavailable [address] [phone]~[phone] [place] [address] L[place]IS, MILAGRO Unavailable [address] + [place] [address] R Unavailable Unavailable Unavailable CONNOR, ADAMARIS Unavailable [address] [phone] [place] [address] L[place]IS, MILAGRO Unavailable [address] + [place] [address] R Unavailable Unavailable Unavailable CONNOR, ADAMARIS Unavailable [address] [phone]~330-6 [place] [address] L[place]IS, MILAGRO Unavailable [address] + [place] [address] R Unavailable Unavailable Unavailable CONNOR, ADAMARIS Unavailable [address] [phone]~330-6 [place] [address] L[place]IS, MILAGRO Unavailable [address] + [place] [address] R Unavailable Unavailable Unavailable CONNOR, ADAMARIS Unavailable [address] [phone]~[phone] [place] [address] L[place]IS, MILAGRO Unavailable [address] + [place] [address] R Unavailable Unavailable Unavailable CONNOR, ADAMARIS Unavailable [address] [phone]~[phone] [place] [address] L[place], MILAGRO Unavailable [address] + [place] [address] R Unavailable Unavailable Unavailable CONNOR, ADAMARIS Unavailable [address] [phone]~[phone] [place] [address] L[place], MILAGRO Unavailable [address] + [place] [address] R Unavailable Unavailable Unavailable CONNOR, ADAMARIS Unavailable [address] [phone]~[phone] [place] [address] L[place], MILAGRO Unavailable [address] + [place] [address] R Unavailable Unavailable Unavailable CONNORADAMARIS Unavailable [address] [phone]~[phone] [place] [address] L[place]IS, MILAGRO Unavailable [address] + [place] [address] R Unavailable Unavailable Unavailable CONNORADAMARIS Unavailable [address] [phone]~330-6 [place] [address] L[place]IS, MILAGRO Unavailable [address] + [place] [address] R Unavailable Unavailable Unavailable CONNOR, ADAMARIS Unavailable [address] [phone] [place] [address] L[place]IS, MILAGRO Unavailable [address] + [place] [address] R Unavailable Unavailable Unavailable CONNORADAMARIS Unavailable [address] [phone] [place] [address] L[place]IS, MILAGRO Unavailable [address] + [place] [address] R Unavailable Unavailable Unavailable CONNORADAMARIS Unavailable [address] [phone] [place] [address] L[place]IS, MILAGRO Unavailable [address] + [place] [address] R Unavailable Unavailable Unavailable CONNORADAMARIS Unavailable [address] [phone]~[phone] [place] [address] L[place]IS, MILAGRO Unavailable [address] + [place] [address] R Unavailable Unavailable Unavailable CONNORHUMBERTOYN Unavailable [address] [phone]~330-6 [place] [address] L[place]IS, MILAGRO Unavailable [address] + [place] [address] R Unavailable Unavailable Unavailable CONNORHUMBERTOYN Unavailable [address] [phone]~330-6 [place] [address] L[place]IS, MILAGRO Unavailable [address] + [place] [address] R Unavailable Unavailable Unavailable CONNOR, ADAMARIS Unavailable [address] [phone] [place] [address] MILAGRO LOUIS Unavailable [address] + [place] [address] R Unavailable Unavailable Unavailable CONNOR, ADAMARIS Unavailable [address] [phone]~330-6 [place] [address] MILAGRO LOUIS Unavailable [address] + [place] [address] R Unavailable Unavailable Unavailable CONNOR, ADAMARIS Unavailable [address] [phone]~330-6 [place] [address] MILAGRO LOUIS Unavailable [address] + [place] [address] R Unavailable Unavailable Unavailable CONNOR, ADAMARIS Unavailable [address] [phone] [place] [address] MILAGRO LOUIS Unavailable [address] + [place] [address] R Unavailable Unavailable Unavailable CONNOR, ADAMARIS Unavailable [address] [phone]~330-6 [place] [address] Care Team Providers Name Role Phone Jeanne Quintero Attending Unavailable Fidel Malone D.O. Attending Unavailable Omar, Wili Primary Care Unavailable Aicha Szymanski Attending Unavailable Omar, Wili Referring Unavailable Jeanne Quintero Attending Unavailable Omar, Wili Referring Unavailable Jeanne Quinteor Attending Unavailable Omar, Wili Referring Unavailable Aicha Szymanski Attending Unavailable Aicha Szymanski Referring Unavailable Omar, Wili Primary Care Unavailable Omar, Wili Primary Care Unavailable Elver Clemens Admitting Unavailable Carlos King Consulting Unavailable Love Christine Attending Unavailable Fidel Malone D.O. Consulting Unavailable Elver Clemens Admitting Unavailable Elver Clemens Attending Unavailable Omar, Wili Primary Care Unavailable Elver Clemens Consulting Unavailable Elver Clemens Admitting Unavailable Elver Clemens Attending Unavailable Omar, Wili Primary Care Unavailable Carlos King Consulting Unavailable Fidel Malone D.O. Consulting Unavailable Elver Clemens Consulting Unavailable Elver Clemens Admitting Unavailable Fidel Malone D.O. Attending Unavailable Omar, Wili Primary Care Unavailable Carlos King Consulting Unavailable Fidel Malone D.O. Consulting Unavailable Elver Clemens Consulting Unavailable Omar, Wili Primary Care Unavailable Wellington, Duncan Admitting Unavailable Wellington, Duncan Attending Unavailable Donavon, Estevan S. Consulting Unavailable Wellington, Duncan Admitting Unavailable Wellington, Duncan Attending Unavailable Omar, Wili Primary Care Unavailable Donavon, Estevan S. Consulting Unavailable Wellington, Duncan Consulting Unavailable Wellington, Duncan Admitting Unavailable Wellington, Duncan Attending Unavailable Omar, Wili Primary Care Unavailable Donavon, Estevan S. Consulting Unavailable Wellington, Duncan Consulting Unavailable Wellington, Duncan Admitting Unavailable Wellington, Duncan Attending Unavailable Omar, Wili Primary Care Unavailable Donavon, Estevan S. Consulting Unavailable Wellington, Duncan Consulting Unavailable Elver Clemens Admitting Unavailable Elver Clemens [facility] Carlos King Consulting Unavailable Fidel Malone D.O. Consulting Unavailable Elver Clemens Consulting Unavailable Elver Clemens Admitting Unavailable Fidel Malone D.O. Attending Unavailable Omar, Wili Primary Care Unavailable Carlos King Consulting Unavailable Fidel Malone D.O. Consulting Unavailable Elver Clemens Consulting Unavailable Elver Clemens Admitting Unavailable Ashelfah, Ghasem Attending Un[facility] Carlos King Consulting Unavailable Fidel Malone D.O. Consulting Unavailable Nanci, Ghasem Consulting Unavailable Elver Clemens Admitting Unavailable Adamaris Harvey INS[employer] Attending Unavailable Omar, Wili Primary Care Unavailable Carlos King Consulting Unavailable Fidel Malone D.O. Consulting Unavailable Kalyanelfalvin, Ghasem Consulting Unavailable Elver Clemens Admitting Unavailable Ra Kauffman Attending Unavailable Omar, Wili Primary Care Unavailable Carlos King Consulting Unavailable Fidel Malone D.O. Consulting Unavailable Ashelfah, Ghasem Consulting Unavailable Elver Clemens Admitting Unavailable Adamaris Harvey INSPECTOR [employer] Attending Unavailable Omar, Wili Primary Care Unavailable Carlos King Consulting Unavailable Gaudencio Greene.Jong. Consulting Unavailable Ashelfah, Ghasem Consulting Unavailable Kittoe, Elver Admitting Unavailable Ra Kauffman Attending Unavailable [facility] Care Unavailable Fernando, Carlos Consulting Unavailable Fidel Malone, D.O. Consulting Unavailable Ashelfah, Ghasem Consulting Unavailable Kittoe, Elver Admitting Unavailable Ashelfah, Ghasem Attending Unavailable [facility] Unavailable Fernando, Carlos Consulting Unavailable Fidel Malone, D.O. Consulting Unavailable Ashelfah, Ghasem Consulting Unavailable [facility] Care Unavailable Ashelfah, Ghasem Admitting Unavailable Sementi, Yana Attending Unavailable Fernando, Carlos Consulting Unavailable Fidel Brown, D.O. Consulting Unavailable Ashelfah, Ghasem Admitting Unavailable Ashelfah, Ghasem Attending Unavailable [facility] Care Unavailable Ashelfah, Ghasem Consulting Unavailable Ashelfah, Ghasem Admitting Unavailable Adamaris Harvey INSPECTOR [employer] Attending Unavailable [facility] Unavailable Fernando, Carlos Consulting Unavailable Fidel Malone, D.O. Consulting Unavailable Sementi, Yana Consulting Unavailable Ashelfah, Ghasem Admitting Unavailable Fidel Brown, D.O. Attending Unavailable [facility] Care Unavailable Fernando, Carlos Consulting Unavailable Fidel Brown, D.O. Consulting Unavailable Sementi, Yana Consulting Unavailable Ashelfah, Ghasem Admitting Unavailable Sementi, Yana Attending Unavailable [facility] Unavailable Fernando, Carlos Consulting Unavailable Fidel Brown, D.O. Consulting Unavailable Sementi, Yana Consulting Unavailable Ashelfah, Ghasem Admitting Unavailable Adamaris Harvey INSPECTOR [employer] Attending Unavailable [facility] Care Unavailable Fernando, Carlos Consulting Unavailable Fidel Brown, D.O. Consulting Unavailable Sementi, Yana Consulting Unavailable Ashelfah, Ghasem Admitting Unavailable Fidel Brown, D.O. Attending Unavailable [facility] Care Unavailable Fernando, Carlos Consulting Unavailable Fidel Brown, D.O. Consulting Unavailable Sementi, Yana Consulting Unavailable Ashelfah, Ghasem Admitting Unavailable Sementi, Yana Attending Unavailable [facility] Care Unavailable Fernando, Carlos Consulting Unavailable Fidel Brown, D.O. Consulting Unavailable Sementi, Yana Consulting Unavailable David, José Manuel Chi Admitting Unavailable David, José Manuel Chi Attending Unavailable Omar, Wili Primary Care Unavailable Omar, Wili Attending Unavailable Omar, Wili Primary Care Unavailable Nessa, Aicha Attending Unavailable Nessa, Aicha Attending Unavailable Nessa, Aicha Referring Unavailable Omar, Wili Primary Care Unavailable Ady Cabello Attending Unavailable Ashelfah, Ghasem Referring Unavailable Nessa, Aicha Attending Unavailable Szymanski, Aicha Referring Unavailable Omar, Wili Primary Care Unavailable Ra Kauffman Attending Unavailable Nessa, Aicha Referring Unavailable Ra Kauffman Attending Unavailable Szymanski, Aicha Referring Unavailable Omar, Wili Primary Care Unavailable Janiya Leon Attending Unavailable Demarcus Hills Attending Unavailable Omar, Wili Primary Care Unavailable Omar, Wili Primary Care Unavailable White, Kahty Admitting Unavailable Mague, Vinayak Consulting Unavailable Gbaruk, Kombian Attending Unavailable Fernando, Carlos Consulting Unavailable White, Kathy Admitting Unavailable White, Kathy Attending Unavailable Omar, Wili Primary Care Unavailable White, Kathy Consulting Unavailable White, Kathy Admitting Unavailable White, Ktahy Attending Unavailable Omar, Wili Primary Care Unavailable Mague, Vinayak Consulting Unavailable White, Kathy Consulting Unavailable White, Kathy Admitting Unavailable Ashelfah, Ghasem Attending Unavailable Omar, Wili Primary Care Unavailable Mague, Vinayak Consulting Unavailable Fernando, Carlos Consulting Unavailable Ashelfah, Ghasem Consulting Unavailable White, Kathy Admitting Unavailable Omar, Wili Primary Care Unavailable Mague, Vinayak Consulting Unavailable Wellington, Duncan Attending Unavailable Fernando, Carlos Consulting Unavailable [place]bar[place], Kombian Consulting Unavailable White, Kathy Admitting Unavailable Omar, Wili Primary Care Unavailable Mague, Vinayak Consulting Unavailable Wellington, Duncan Attending Unavailable Fernando, Carlos Consulting Unavailable [place]bar[place], Kombian Consulting Unavailable Wellington, Duncan Attending Unavailable White, Kathy Admitting Unavailable Omar, Wili Primary Care Unavailable Mague, Vinayak Consulting Unavailable Fernando, Carlos Consulting Unavailable Gbar[place], Kombian Consulting Unavailable Omar, Wili Attending Unavailable Omar, Wili Primary Care Unavailable Omar, Wili Attending Unavailable Omar, Wili Primary Care Unavailable Omar, Wili Attending Unavailable Omar, Wili Primary Care Unavailable Nessa, Aicha Attending Unavailable Omar, Wili Referring Unavailable Nessa, Aicha Attending Unavailable Omar, Wili Referring Unavailable Omar, Wili Primary Care Unavailable Aicha Szymanski Attending Unavailable Omar, Wili Primary Care Unavailable Omar, Wili Primary Care Unavailable [facility], Duncan Admitting Unavailable [facility], Duncan Attending Unavailable [place], Ady Consulting Unavailable [facility], Duncan Admitting Unavailable Wellington, Duncan Attending Unavailable Omar, Wlii Primary Care Unavailable [facility], Duncan Consulting Unavailable [facility], Duncan Admitting Unavailable Vin, Bebe Attending Unavailable Omar, Wili Primary Care Unavailable [place], Ady Consulting Unavailable Jopperi, Demarcus Consulting Unavailable [facility], Duncan Admitting Unavailable Omar, Wili Primary Care Unavailable [place], Ady Consulting Unavailable Jopperi, Demarcus Attending Unavailable Jopperi, Demarcus Consulting Unavailable [facility], Duncan Admitting Unavailable Vin, Bebe Attending Unavailable Omar, Wili Primary Care Unavailable [place], Ady Consulting Unavailable Jopperi, Demarcus Consulting Unavailable [facility], Duncan Admitting Unavailable Jopperi, Demarcus Attending Unavailable Omar, Wili Primary Care Unavailable [place], Ady Consulting Unavailable Jopperi, Demarcus Consulting Unavailable [facility], Duncan Admitting Unavailable Vin, Bebe Attending Unavailable Omar, Wili Primary Care Unavailable [place], Ady Consulting Unavailable [facility], Duncan Consulting Unavailable [facility], Duncan Admitting Unavailable Omar, Wili Primary Care Unavailable [place], Ady Consulting Unavailable [facility], Duncan Attending Unavailable Wellington, Duncan Consulting Unavailable [facility], Duncan Admitting Unavailable Dorcas, Greg Attending Unavailable Omar, Wili Primary Care Unavailable [place], Ady Consulting Unavailable [facility], Duncan Consulting Unavailable [facility], Duncan Admitting Unavailable Omar, Wili Primary Care Unavailable [place], Ady Consulting Unavailable Wellington, Duncan Attending Unavailable Wellington, Duncan Consulting Unavailable Greg Phillips Attending Unavailable OmarWili page Referring Unavailable Jeanne Quintero Attending Unavailable Omar, Wili Referring Unavailable Jeanne Quintero Attending Unavailable Omar, Wili Referring Unavailable Omar, Wili Attending Unavailable Omar, Wili Primary Care Unavailable Omar, Wili Attending Unavailable Omar, Wili Primary Care Unavailable DorcasHarjeet serratoril Attending Unavailable [facility], Duncan Referring Unavailable DorcasHarjeet serratoril Attending Unavailable Wellington, Duncan Referring Unavailable Jeanne Quintero Attending Unavailable Wili Nelson Referring Unavailable Fidel Malone D.O. Attending Unavailable Wili Nelson Referring Unavailable Jeanne Quintero Attending Unavailable Wili Nelson Referring Unavailable TESTRAKE, MOE Attending Unavailable TESTRAKE, MOE Referring Unavailable TESTRAKE, MOE Attending Unavailable TESTRAKE, MOE Referring Unavailable TESTRAKE, MOE Attending Unavailable TESTRAKE, MOE Referring Unavailable PROBLEMS PROBLEMS DATE TYPE CONDITION / CODE ATTENDING STATUS SOURCE Unknown G47.33 - Obstructive Szymanski, Active [place] 8 sleep apnea (adult) [facility] (pediatric) / Hospital G47.33(ICD-10) Repository Unknown R32 - Unspecified urinary Wili Nelson Active [place] 8 incontinence / Community R32(ICD-10) Hospital Repository Unknown R41.3 - Other amnesia / Wili Nelson Active [place] 8 R41.3(ICD-10) [facility] Repository Unknown Z87.440 - Personal Wili Nelson Active [place] 8 history of urinary Community (tract) infections / Hospital Z87.440(ICD-10) Repository Unknown I45.2 - Bifascicular Jeanne Quintero Active [place] 8 block / I45.2(ICD-10) [facility] Repository Unknown 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 / Hospital Z95.818(ICD-10) Repository Unknown R29.6 - Repeated falls / Dorcas, Greg Active [place] 8 R29.6(ICD-10) [facility] Repository Unknown I10 - Essential (primary) Dorcas, Greg Active [place] 8 hypertension / Community I10(ICD-10) Hospital Repository Unknown I25.10 - Atherosclerotic Dorcas, [place] Active [place] 8 heart disease of [place] Community coronary artery without Hospital angina pectoris / Repository I25.10(ICD-10) Unknown E78.00 - Pure Dorcas, Greg Active [place] 8 hypercholesterolemia, Community unspecified / Hospital E78.00(ICD-10) Repository Unknown E78.0 - Pure Dorcas, Greg Active [place] 8 hypercholesterolemia / Community E78.0(ICD-10) Hospital Repository Unknown I45.10 - Unspecified Dorcas, [place] Active [place] 8 right bundle-branch block Community / I45.10(ICD-10) Hospital Repository Unknown R00.1 - Bradycardia, Dorcas, Greg Active [place] unspecified / Community R00.1(ICD-10) Hospital Repository Unknown I45.3 - Trifascicular Dorcas, Greg Active [place] 8 block / I45.3(ICD-10) [facility] Repository Unknown R55 - Syncope and Dorcas, Greg Active [place] 8 collapse / R55(ICD-10) [facility] Repository Unknown R94.31 - Abnormal Dorcas, [place] Active [place] 8 electrocardiogram [ECG] Community [EKG] / R94.31(ICD-10) Hospital Repository Unknown R19.7 - Diarrhea, Wili Nelson Active [place] unspecified / Community R19.7(ICD-10) Hospital Repository Unknown R15.9 - Full incontinence Wili Nelson Active [place] 8 of feces / R15.9(ICD-10) [facility] Repository Unknown J44.9 - Chronic JamariRa doherty Active [place] 8 obstructive pulmonary Community disease, unspecified / Hospital J44.9(ICD-10) Repository Unknown E66.9 - Obesity, Szymanski, Active [place] 8 unspecified / Aicha Community E66.9(ICD-10) Hospital Repository Unknown N30.00 - Acute cystitis David, José Manuel Chi Active [place] 8 without hematuria / Community N30.00(ICD-10) Hospital Repository PROCEDURES PROCEDURES No Procedure Records FoundRESULTS RESULTS CONSULTATION Observed: 07/16/2018 Status: F Source: [place] 1:49 PM [facility] Medical Records Department [address] [place] [address] Consultation 07/09/18 1350 MR#: [id number] Acct: [id number] Name: DAVID LOUIS Rep #: [id number] : 1940 77 From: Estevan Raphael MD PCP: Wili Nelson DO Status: DIS TONY Y Location: [place] [address]-1 Problem List (1) TIA Status: Acute Reason for Consult Date of Consultation: 07/09/18 Reason for Consultation: Possible TIA History of Present Illness: The patient is a 77 year old M with PMH HTN, HLD, DM, Morbid Obesity, NILO, CKD, 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 Per patient he woke up yesterday (07/08/18) with left arm weakness and was dropping objects, per patient these symptoms would have lasted for about half hour before resolving, denies any MALDONADO, slurred speech, visual disturbances, neck pain, low back pain of new onset or radicular symptoms. He is on Eliquis for VTE. Per patient he lives with his , denies any falls, does not use cane or walker to ambulate, and does not need any assistance for his ADLs. MRI brain done on admission reported to show nothing acute. MRA head/neck could not be obtained as Radiology department did not have the necessary neck coil of his size for evaluation. Per nurse taking care of the patient he had some slurred speech and confusion this morning when he woke up (07/09/18) and had repeat CT head which reported no acute changes. Patient also found to have UTI and has been started on Antibiotics by hospitalist. At present patient is at baseline and denies any MALDONADO, visual disturbances, speech disturbances, focal motor weakness or sensory loss. 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) BPH (benign prostatic hyperplasia) (Chronic) Super obesity (Chronic) Debility (Chronic) Noncompliance (Chronic) with CPAP and follow up and with diet COPD (chronic obstructive pulmonary disease) (Chronic) Type II diabetes mellitus, uncontrolled (Chronic) History of depression (Chronic) History of other venous thrombosis and embolism (Chronic) HLD (hyperlipidemia) (Chronic) HTN (hypertension) (Chronic) NILO (obstructive sleep apnea) (Chronic) BiPAP ST 18/12 cm of water Chronic renal failure, stage 3 (moderate) (Chronic) Bifascicular bundle branch block (Chronic) Colon polyps (Chronic) Family history of colon cancer (Chronic) Medical History: Medical History (Last Reviewed 06/16/18 @ 14:31 by Aicha Szymanski NP-C) Status post placement of implantable loop recorder (Chronic) Z95.818 Thromboembolism (Chronic) I74.9 BPH (benign prostatic hyperplasia) (Chronic) N40.0 Super obesity (Chronic) E66.9 Cystitis (Resolved) N30.90 Debility (Chronic) R53.81 Noncompliance (Chronic) Z91.19 with CPAP and follow up and with diet COPD (chronic obstructive pulmonary disease) (Chronic) J44.9 Type II diabetes mellitus, uncontrolled (Chronic) E11.65 History of depression (Chronic) Z86.59 History of other venous thrombosis and embolism (Chronic) Z86.718 HLD (hyperlipidemia) (Chronic) E78.5 HTN (hypertension) (Chronic) I10 NILO (obstructive sleep apnea) (Chronic) G47.[address] 18/12 cm of water Chronic renal failure, stage 3 (moderate) (Chronic) N18.3 Bifascicular bundle branch block (Chronic) I45.2 Colon polyps (Chronic) Family history of colon cancer (Chronic) Z80.0 History of kidney stones (Resolved) Z87.442 MRSA (methicillin resistant staph aureus) culture positive (Resolved) Z22.322 Allergies MARGIE Inhibitors Allergy (Unknown, Verified 07/08/18 10:42) Unknown cefepime Allergy (Verified 07/08/18 10:42) Other WEAKNESS AND FALLING ipodate [Ipodate] Allergy (Verified 07/08/18 10:42) Shortness of breath levofloxacin [Levofloxacin] Allergy (Verified 07/08/18 10:42) Anaphylaxis lisinopril Allergy (Verified 07/08/18 10:42) Shortness of breath ofloxacin Allergy (Verified 07/08/18 10:42) Unknown Quinolones Allergy (Verified 07/08/18 10:42) Anaphylaxis Home Medications: Ambulatory Orders Medication Instructions Recorded Atorvastatin Calcium [Lipitor] 40 mg PO QHS 05/29/15 Surgical History: - - Circumcision, excision of kidney stone Psychiatric History: Depression Smoking Status: Former smoker Tobacco Use: Cigars - *Family History Maternal Family History: Family History (Last Reviewed 06/16/18 @ 14:31 by BETTYE Aguilera) Father Colon cancer Mother Cancer Sister CAD (coronary artery disease) History Items: Cancer - Patient's mother of cancer but he is not sure what kind of cancer. Paternal Family History: Family History (Last Reviewed 06/16/18 @ 14:31 by BETTYE Aguilera) Father Colon cancer Mother Cancer Sister CAD (coronary artery disease) History Items: Cancer - Father of colon cancer Offspring Family History: Family History (Last Reviewed 06/16/18 @ 14:31 by BETTYE Aguilera) Father Colon cancer Mother Cancer Sister CAD (coronary artery disease) History Items: - - He has a son who is morbidly obese and suffers from breathing problems and heart problems. Patient Problems: Active and Suspected Problems (Last Reviewed 06/16/18 @ 14:31 by BETTYE Aguilera) TIA (Acute) - Physical Exam Vital Signs Temp Pulse Resp BP Pulse Ox 97.6 F L 68 16 159/78 H 94 07/09/18 08:25 07/09/18 11:00 07/09/18 08:25 07/09/18 08:25 07/09/18 08:25 Oxygen Delivery Method Room Air Weight: 172.365 kg Body Mass Index (BMI) 51.5 Finger Stick Blood Glucose 382 Intake and Output for Last 24 Hours Intake Total 680 / 680 160 / 160 Balance 680 / 680 160 / 160 Laboratory Tests Past 24 Hrs Troponin I < 0.015 Triglycerides 190 Cholesterol 142 LDL Cholesterol 70 VLDL Cholesterol 38 HDL Cholesterol 34 L TSH 2.17 POC Glucose POC Glucose 283 H 174 H 206 H POC Glucose 215 H Assessment/Plan All Active Problems (Last Reviewed 06/16/18 @ 14:31 by BETTYE Aguilera) TIA (Acute) Symptomatic sinus bradycardia (Acute) Recurrent falls (Acute) Cystitis (Resolved) History of kidney stones (Resolved) MRSA (methicillin resistant staph aureus) culture positive (Resolved) The patient is a 77 year old M with PMH HTN, HLD, DM, Morbid Obesity, NILO, CKD, 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 Per patient he woke up yesterday (07/08/18) with left arm weakness and was dropping objects, per patient these symptoms would have lasted for about half hour before resolving, denies any MALDONADO, slurred speech, visual disturbances, neck pain, low back pain of new onset or radicular symptoms. He is on Eliquis for VTE. Per patient he lives with his , denies any falls, does not use cane or walker to ambulate, and does not need any assistance for his ADLs. MRI brain done on admission reported to show nothing acute. MRA head/neck could not be obtained as Radiology department did not have the necessary neck coil of his size for evaluation. Per nurse taking care of the patient he had some slurred speech and confusion this morning when he woke up (07/09/18) and had repeat CT head which reported no acute changes. Patient also found to have UTI and has been started on Antibiotics by hospitalist. At present patient is at baseline and denies any MALDONADO, visual disturbances, speech disturbances, focal motor weakness or sensory loss. Impression -Possible TIA -Encephalopathy Plan -MRI brain report reviewed -On Eliquis for VTE -MRA head/neck could not be obtained per radiology department. -Check carotid ultrasound -Lipitor -Check LDL, Hba1c and TTE -GI/DVT prophylaxis -stroke risk factors discussed and stroke education provided -Fall precautions -PT/TO/ST -Further medical management per hospitalist team -Neurology followup in 4 weeks as outpatient -Please call with questions if any -Thank you for allowing us to participate in patient's care and management Code Visit Inpatient E AND M: [id number] Init Hosp L3 07/16/18 1349 <Electronically signed by Estevan Raphael MD> Date Estevan Raphael MD Cosigner Signature (if applicable): Date CC: Anjana Raphael MD; Wili Nelson DO Signed 12 LEAD ELECTROCARDIOGRAM Observed: 07/12/2018 Status: F Source: [place] 9:52 AM [facility] Cardiovascular Services [address] [place] [address] 12 Lead EKG 07/08/182047 MR#: [id number] Acct: [id number] Name: DAVID LOUIS Rep #: [id number] : 1940 77 From: Greg Phillips MD Attending Dr: Duncan Paris MD Status: DIS TONY Ordering Dr: Duncan Paris MD Date: 07/08/18 Location: [facility] Sex: M C Admitted: 07/08/18 Test Reason : TIMED Blood Pressure : / mmHG Vent. Rate : 044 BPM Atrial Rate : 044 BPM P-R Int : 260 ms QRS Dur : 164 ms QT Int : 500 ms P-R-T Axes : 091 -64 021 degrees QTc Int : 427 ms Marked sinus bradycardia with 1st degree A-V block Left axis deviation Right bundle branch block Possible Lateral infarct , age undetermined Inferior infarct , age undetermined Abnormal ECG Confirmed by GREG PHILLIPS MD ([id number]), material expeditor TABATHA DIAZ ([id number]) on 07/12/2018 9:51:48 AM Referred By: Aicha Szymanski Confirmed By:GREG PHILLIPS MD 07/12/1851 Date Greg Phillips MD CC: Wili Nelson DO; Duncan Paris MD Signed DISCHARGE SUMMARY Observed: 07/10/2018 Status: F Source: [place] 6:08 PM [facility] Medical Records Department [address] [place] [address] Discharge Summary 07/10/1836 MR#: [id number] Acct: [id number] Name: DAVID LOUIS Rep #: [id number] : 1940 77 From: Duncan Paris MD PCP: Wili Nelson DO Status: DIS TONY Y Location: [place] [address] 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) BPH (benign prostatic hyperplasia) (Chronic) Super obesity (Chronic) Debility (Chronic) Noncompliance (Chronic) with CPAP and follow up and with diet COPD (chronic obstructive pulmonary disease) (Chronic) Type II diabetes mellitus, uncontrolled (Chronic) History of depression (Chronic) History of other venous thrombosis and embolism (Chronic) HLD (hyperlipidemia) (Chronic) HTN (hypertension) (Chronic) NILO (obstructive sleep apnea) (Chronic) BiPAP ST 18/12 cm of water Chronic renal failure, stage 3 (moderate) (Chronic) Bifascicular bundle branch block (Chronic) Colon polyps (Chronic) Family history of colon cancer (Chronic) Hospital Course and Treatment Operations: None Summary of Care Provided: [] The patient is a 77 year old M with multiple comorbidities as listed above including sinus bradycardia, COPD, type 2 diabetes mellitus, obstructive sleep apnea, bifascicular block status post implantable loop recorder and history of VT E came to ER with sudden onset of left hand paresthesia when he woke up at 9 AM and mild slurring speech and mild incomprehensible as per her daughter but patient denies receptive aphasia. Patient denies change in vision or floaters. Denies any other weakness or paresthesia in the lower extremities. Denies previous stroke. The patient was last admitted in March 2018 for syncope most probably secondary to bradycardia for which metoprolol dose was decreased and patient had implantable loop recorder subsequently. In ED, basic blood workup is on baseline, except BUN 21, creatinine 1.97 which is similar to baseline 21/1.78 in February 2018. Troponins are negative. TSH normal. Chest x-ray shows cardiomegaly. 1. 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 MRI brain ordered and if positive for stroke we will do full workup including head and neck MRA. Patient is not candidate for CT angiogram because of CKD. Patient had recent echo on 03/12/2018 which reported as stage II diastolic dysfunction with EF 55% with no regional wall motion abnormality. Mild TR, RVSP 50 mmHg. No pericardial effusion. Mitral valve not reported probably from technically difficult study. Patient had a stress echo on 03/11/2018 and reported as no evidence of ischemia. On aspirin and statin. Control BP and glucose as per stroke guidelines. Neurology consult. PT/OT/speech evaluation. Fasting profile shows LDL 70, HDL 34, total cholesterol 142 within normal limit. MRI brain does not show acute change/infarct. Subsequently repeat CT head was done today does not show acute change since prior study. Since MRI could not be done as would not have appropriate coil for patient. Carotid Doppler does not show hemodynamically significant stenosis or occlusion. Ischemic infarct ruled out 2. Sinus bradycardia with bifascicular block: Patient heart rate runs in 40/min. Hold beta-zen. EKG shows marked sinus bradycardia, QRS duration 162 ms with first-degree AV block at 42 bpm, LAD, right bundle branch block and left anterior fascicular block. Patient follows Dr. phillips. Discussed with Dr. phillips and discontinue aspirin as the patient is on Eliquis. 3. CKD stage III: BUN 21, creatinine 1.97 is on baseline, which is similar 1.95 in February 2018. Monitor electrolytes and kidney function. Patient is not on diuretic at home but on Cozaar. 4. 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 Straight cath preliminary urine culture shows gram-negative rods, possible Pseudomonas more than 100,000. With history of allergy to cefepime and fluoroquinolones, patient was started on aztreonam. Patient has history of recurrent UTI and follows Dr. Bowser. Discussed with Dr. Bowser and he knows the patient very well. He had cystoscopy and penoplasty in the past. Patient has poor perineal hygiene secondary to urinary incontinence and noncompliance. He had several rounds of antibiotics and developed resistance. He thinks positive UAs probably colonization and does not need antibiotic. Before admission,patient completed 7 days of cefdinir on 07/08/2017. Antibiotic discontinued. Hypertension: Continue Cozaar. Blood pressure is 145/59, 128/54. 5. Diabetes mellitus type 2: Blood sugar is uncontrolled. Glucose 383 on BMP. Accu-Chek before meals and at bedtime. Pre-meal Humalog insulin increased. On Levemir. A1c 10.4. 6. Other chronic comorbidities include history of VT, BPH, COPD, depression, obstructive sleep apnea on BiPAP. Home medication reconciliation done. Discharge medication reconciliation done. Discharge follow- up instructions completed. Discharge process discussed with the patient and all questions were answered to patient's satisfaction.. Subjective: Seen and examined. Patient has history of recurrent UTI and follows Dr. Bowser. Discussed with Dr. Bowser in the morning and he knows the patient very well. He had cystoscopy and penoplasty in the past. Patient has poor perineal hygiene secondary to urinary incontinence and noncompliance. He had several rounds of antibiotics and a blood monitored a stent. He thinks positive UAs probably colonization and does not need antibiotic. Before admission,patient completed 7 days of cefdinir on 07/08/2017 - Physical Exam General: Alert, Oriented x3, Cooperative HEENT: Atraumatic, PERRLA, EOMI, Normocephalic Neck: Supple, No JVD, Negative Carotid Bruits Lungs: Clear to auscultation, Diminished - Air entry diminished in bilateral lung bases Cardiovascular: Regular rate, Regular Rhythm, Normal S1, Normal S2, No murmurs Abdomen: Bowel Sounds Present, Soft, Non Tender, Non-Distended, - - Poor perineal hygiene. Fibrosis around the urethral opening with chronic thickening of preputial skin. Candidal infection looks better since yesterday. Extremities: Capillary Refill Less than 3 Seconds, Edema Skin: No rashes, No breakdown Musculoskeletal: No Tenderness to Palpation of Joints or Extremities Neurological: Cranial nerves II-XII grossly intact Psych/Mental Status: Normal Affect, Appropriate Vital Signs Temp Pulse Resp BP Pulse Ox 98.0 F 80 20 H 140/79 H 93 07/10/18 06:00 07/10/18 07:40 07/10/18 06:00 07/10/18 06:00 07/10/18 06:00 Oxygen Delivery Method Room Air Weight: 380 lb Body Mass Index (BMI) 51.5 Finger Stick Blood Glucose 382 Intake and Output for Last 24 Hours Intake Total 680 / 680 1749 / 1749 100 / 100 Output Total 450 / 450 Balance 680 / 680 1299 / 1299 100 / 100 Laboratory Tests Past 24 Hrs Sodium 140 Potassium 4.3 Chloride 105 Carbon Dioxide 27.0 Anion Gap 8 BUN 29 H Creatinine 1.88 H POC Glucose POC Glucose 205 H 235 H 285 H POC Glucose 283 H Discharge Activity: May Not Drive Call your doctor if you observe: Fever of 101 or Higher, Change in Color, Inability to have a bowel movement, Shortness of breath, Swelling in the ankles, Calf discomfort Home Medications: Medications to take at Discharge Atorvastatin Calcium [Lipitor] 40 mg PO QHS 05/29/15 Citalopram [Celexa] 40 mg PO DAILY 05/29/15 Fluticasone 0.05% [Flonase Nasal [place]] 1 spray NASAL BID PRN 05/29/15 Tamsulosin HCl [Flomax] 0.8 mg PO DAILY 07/08/16 Losartan Potassium [Cozaar] 100 mg PO DAILY 07/24/17 Insulin Aspart [Novolog Flexpen] 13 units SC TIDAC #1 flexpen 08/11/17 albuterol sulfate 90 mcg/actuation breath activated powder inhaler 2 puff INHALATION Q4H PRN #1 ea 02/08/18 Gabapentin [Neurontin] 300 mg PO 1700,2200 03/11/18 Insulin Detemir [Levemir FlexPen] 50 units SUBCUT BID 03/11/18 Isosorbide Mononitrate [Imdur] 30 mg PO DAILY 03/12/18 Apixaban [Eliquis] 5 mg PO BID #60 tab 03/15/18 Metoprolol Succinate 25 mg PO DAILY 07/08/18 Fluconazole [Diflucan] 100 mg PO DAILY #7 tablet 07/10/18 Following Prescrptions Were Given to Patient: Fluconazole [Diflucan] 100 mg PO DAILY #7 tablet Primary Care Physician: Wili Nelson DO [Primary Care Provider] - Please follow up with your Primary Care Physician in: in 1- 2 week Please Follow Up With: Greg Phillips MD When: as scheduled Please Follow Up With: Mau Bowser MD When: recurrent UTI, Phimosis, ya Medical Necessity - Tobacco Use Smoking Status: Former smoker Tobacco Use: Cigars Meaningful Use Info Meaningful Use Diagnoses (Choose all that apply): None applicable Code Visit OBSV E AND M: [id number] Observation care discharge 07/10/18 4018 <Electronically signed by Duncan aPris MD> Date Duncan Paris MD Cosigner Signature (if applicable): Date CC: Wili Nelson DO; Duncan Paris MD Signed BEDSIDE GLUCOSE Collected: 07/10/2018 Status: F Source: [place] 12:27 PM [facility] REPOSITORY TYPE CODE TESTS RESULT OUT OF REFERENCE UNITS RANGE LAB L501.080 70-110 mg/dL High BEDSIDE GLU 242 Result Comment: MANAGEMENT OF PATIENT CARE PER NURSING PROTOCOL Performed By: #### L501.080 #### [facility] Point of Care [address] [place] [address] DISCHARGE INSTRUCTION Observed: 07/10/2018 Status: F Source: [place] 9:36 AM [facility] Medical Records Department [address] [place] [address] Instructions for Home/Discharge Instructions 07/10/18918 MR#: [id number] Acct: [id number] Name: DAVID LOUIS Rep #: [id number] : 1940 77 From: Duncan Paris MD PCP: Wili Nelson DO Status: ADM TONY ADDENDUM by Duncan Paris MD on 07/10/18 at 0936 Patient completed cefdinir that was 7-day course from 07/01/2018 before coming it. Discussed with Dr. Bowser and he has history of recurrent UTI which is mostly: Patient has a distant to multiple antibiotics. Does not need further antibiotic. 07/10/18 0936 Date Duncan Paris MD cc: Anjana Raphael MD; Wili Nelson DO * Signed - Discharge Diagnoses Current Active Problems: Current Active and Chronic Problems (Last Reviewed 06/16/18 @ 14:31 by Aicha Szymanski NP-C) TIA (Acute) You will use the following diet at home:: Calorie/Carbohydrate Controlled (specify 1200, 1400, etc), Cardiac Your food should be the consistency of: Regular Discharge Activity: May Not Drive Call your doctor if you observe: Fever of 101 or Higher, Change in Color, Inability to have a bowel movement, Shortness of breath, Swelling in the ankles, Calf discomfort Allergies/Adverse Reactions: Allergies MARGIE Inhibitors Allergy (Unknown, Verified 07/08/18 10:42) Unknown cefepime Allergy (Verified 07/08/18 10:42) Other WEAKNESS AND FALLING ipodate [Ipodate] Allergy (Verified 07/08/18 10:42) Shortness of breath levofloxacin [Levofloxacin] Allergy (Verified 07/08/18 10:42) Anaphylaxis lisinopril Allergy (Verified 07/08/18 10:42) Shortness of breath ofloxacin Allergy (Verified 07/08/18 10:42) Unknown Quinolones Allergy (Verified 07/08/18 10:42) Anaphylaxis Medications to take at Discharge Atorvastatin Calcium [Lipitor] 40 mg PO QHS 05/29/15 Citalopram [Celexa] 40 mg PO DAILY 05/29/15 Fluticasone 0.05% [Flonase Nasal [place]] 1 spray NASAL BID PRN 05/29/15 Tamsulosin HCl [Flomax] 0.8 mg PO DAILY 07/08/16 Losartan Potassium [Cozaar] 100 mg PO DAILY 07/24/17 Insulin Aspart [Novolog Flexpen] 13 units SC TIDAC #1 flexpen 08/11/17 albuterol sulfate 90 mcg/actuation breath activated powder inhaler 2 puff INHALATION Q4H PRN #1 ea 02/08/18 Gabapentin [Neurontin] 300 mg PO 1700,2200 03/11/18 Insulin Detemir [Levemir FlexPen] 50 units SUBCUT BID 03/11/18 Isosorbide Mononitrate [Imdur] 30 mg PO DAILY 03/12/18 Apixaban [Eliquis] 5 mg PO BID #60 tab 03/15/18 Cefdinir 300 mg PO BID 07/08/18 Metoprolol Succinate 25 mg PO DAILY 07/08/18 Fluconazole [Diflucan] 100 mg PO DAILY #7 tablet 07/10/18 The following prescriptions were given: Fluconazole [Diflucan] 100 mg PO DAILY #7 tablet Primary Care Physician: Wili Nelson DO [Primary Care Provider] - Please follow up with your Primary Care Physician in: in 1- 2 week Test Results: Test results from this visit will be discussed in further detail at your follow-up appointment, if applicable. Please Follow Up With: Greg Phillips MD When: as scheduled Please Follow Up With: Mau Bowser MD When: recurrent UTI, Phimosis, ya 07/10/18 0921 <Electronically signed by Duncan Paris MD> Date Duncan Paris MD CC: Anjana Raphael MD; Wili Nelson DO Signed CAROTID DUPLEX Observed: 07/10/2018 Status: F Source: [place] ULTRASOUND 8:54 AM [facility] Cardiovascular Services [address] [place] [id number] Carotid Duplex Ultrasound 07/09/18 1447 MR#: [id number] Acct: [id number] Name: DAVID LOUIS Rep #: [id number] : 1940 77 From: Carlos Cerrato MD Attending Dr: Duncan Paris MD Status: ADM TONY Ordering Dr: Duncan Paris MD Date: 07/09/18 Location: [facility] Sex: M C Admitted: 07/08/18 Reason For Study: TIA Rt. Velocities/BP Lt. Velocities/BP Prox CCA 65.8/8.02 cm/sec. Prox CCA 95.6/9.38 cm/sec. Mid CCA 72.1/6.45 cm/sec. Mid CCA 107.0/12.9 cm/sec. Dist CCA 76.8/8.79 cm/sec. Dist CCA 107.0/12.9 cm/sec. Prox ICA 62.9/10.6 cm/sec. Prox ICA 97.9/13.5 cm/sec. Mid ICA 59.7/10.6 cm/sec. Mid ICA 83.3/20.5 cm/sec. Dist ICA 110.0/18.8 cm/sec. Dist ICA 93.8/22.3 cm/sec. Rt. ICA/CCA = 110.0/72.1=1.5. Lt. ICA/CCA = 97.9/107.0=0.9. Prox ECA 124.0/0.0 cm/sec. Prox ECA 129.0/0.0 cm/sec. Rt. Vert. 40.5/9.82 cm/sec. Lt. Vert. 40.1/7.86 cm/sec. Right Extracranial There is intimal thickening but no significant atherosclerotic plaque noted in the right common carotid artery. There is intimal thickening but no significant atherosclerotic plaque noted in the right internal carotid artery. The tortuous nature of the right distal internal carotid artery may result in flow velocities overestimating the degree of stenosis. There is no significant atherosclerotic plaque noted in the right external carotid artery. Antegrade flow is noted in the right vertebral artery. There is heterogeneous, irregular atherosclerotic plaque noted in the right bulb. Left Extracranial There is intimal thickening but no significant atherosclerotic plaque noted in the left common carotid artery. There is intimal thickening but no significant atherosclerotic plaque noted in the left internal carotid artery. There is intimal thickening but no significant atherosclerotic plaque noted in the left external carotid artery. Antegrade flow is noted in the left vertebral artery. Procedure Carotid Duplex 31446. Exam performed portable in patient room. Interpretation Summary No hemodynamically significant plague within the right internal carotid with <50% stenosis and tortuosity noted. No hemodynamically significant plague within the left internal carotid with <50% stenosis. Normal flow bilateral external carotids Patent and antegrade vertebrals bilaterally Ordering Physician: Duncan Paris Referring Physician: Wili Nelson Performed By: Jailene Parra, HIROCS, RVT 07/10/18 0853 Date Carlos Cerrato MD CC: Wili Nelson DO; Duncan Paris MD Date Dictated: 07/09/18 1447 Date Transcribed: 07/10/18852 Lighting Engineer: Signed BEDSIDE GLUCOSE Collected: 07/10/2018 Status: F Source: [place] 7:00 AM [facility] REPOSITORY TYPE CODE TESTS RESULT OUT OF REFERENCE UNITS RANGE LAB L501.080 70-110 mg/dL High BEDSIDE GLU 205 Result Comment: MANAGEMENT OF PATIENT CARE PER NURSING PROTOCOL Performed By: #### L501.080 #### [facility] Point [place] [address] BASIC METABOLIC Collected: 07/10/2018 Status: F Source: [place] PROFILE (BMP) 5:50 AM [facility] REPOSITORY TYPE CODE TESTS RESULT OUT OF RANGE REFERENCE UNITS LAB L501.0100 74-106 mg/dL High GLU 200 Result Comment: Glucose result greater than or equal to 200 mg/dL suggests DIABETES MELLITUS per A.D.A. criteria. Please note revised GLUCOSE reference range effective 2017. LAB L501.1000 7-18 mg/dL High BUN 29 LAB L501.1100 0.70-1.30 mg/dL High CREAT,SERUM 1.88 Result Comment: The validity of the calculated GFR AND GFRAA in patients over 70 years has not been determined. Clinical correlation is essential. LAB L501.1110 >60 mL/min Low EST GFR 37 Result Comment: Non- GFR Calc LAB L501.1115 >60 mL/min Low EST GFR - AA 45 Result Comment: GFR Calc LAB L501.1255 ml/min Normal Estimated CRCL 36.12 LAB L501.1300 10-20 RATIO Normal BUN/CRE 15.4 LAB L501.2200 8.5-10 mg/dL Normal .1 CA 8.7 LAB L501.5300 136-14 mmol/L Normal 5 NA 140 LAB L501.5600 3.5-5. mmol/L Normal 1 K 4.3 LAB L501.5900 98-107 mmol/L Normal CL 105 LAB L501.6100 21.0-3 mmol/L Normal 2.0 CO2 27.0 LAB L501.6200 5-15 Normal GAP 8 Performed By: #### L500.2500 #### [facility] [address] [place], [place], [address] BEDSIDE GLUCOSE Collected: 07/09/2018 Status: F Source: [place] 9:04 PM [facility] REPOSITORY TYPE CODE TESTS RESULT OUT OF REFERENCE UNITS RANGE LAB L501.080 70-110 mg/dL High BEDSIDE GLU 235 Result Comment: MANAGEMENT OF PATIENT CARE PER NURSING PROTOCOL Performed By: #### L501.080 #### [facility] Point of Care [address] [facility]. [place], [place] [address] BEDSIDE GLUCOSE Collected: 07/09/2018 Status: F Source: [place] 4:45 PM [facility] REPOS[facility]ORY TYPE CODE TESTS RESULT OUT OF REFERENCE UNITS RANGE LAB L501.080 70-110 mg/dL High BEDSIDE GLU 285 Result Comment: MANAGEMENT OF PATIENT CARE PER NURSING PROTOCOL Performed By: #### L501.080 #### [facility] Point of Care [address] [facility]. [place], [place] [address] Observed: 07/09/2018 Status: F Source: [place] CULTURE, URINE 2:30 PM [facility] REPOSITORY Urine Culture ORGANISM 1: Pseudomonas aeroginosa [place] Count >100,000 Pseudomonas aeroginosa: REACTION Ceftazidime *NF 4 S Ciprofloxacin $ 0.5 S Gentamicin $ <=1 S Imipenem *NF <=0.25 S Levofloxacin $ 4 I Tobramycin $ <=1 S (NF) indicates non-formulary drug at [facility]. Approval by Infectious Disease Specialist required before non-formulary drugs may be ordered and/or dispensed. Performed By: #### M100.0650 #### [facility] [address] [facility]. [place], [place], [address] BEDSIDE GLUCOSE Collected: 07/09/2018 Status: F Source: [place] 12:37 PM [facility] REPOS[facility]ORY TYPE CODE TESTS RESULT OUT OF REFERENCE UNITS RANGE LAB L501.080 70-110 mg/dL High BEDSIDE GLU 283 Result Comment: MANAGEMENT OF PATIENT CARE PER NURSING PROTOCOL Performed By: #### L501.080 #### [facility] Point of Care [address] [place] [address] BRAIN/HEAD WITHOUT Observed: 07/09/2018 Status: F Source: [place] CONTRAST 9:16 AM [facility] Imaging Services [address] [place] [address] Brain/Head without Contrast MR#: [id number] Acct: [id number] Name: DAVID LOUIS Rep #: [id number] : 1940 M 77 From: Seymour Shelley MD PCP: Wili Nelson DO Status: ADM TONY Study: Brain/Head without Contrast Date of Exam: 07/09/18 Exam# [id number] Ordering Dr: Estevan Raphael MD STUDY: CT BRAIN WITHOUT CONTRAST REASON FOR EXAM: Male, 77 years old. Altered mental status. Paresthesia of the left hand and slurred speech. RADIATION DOSAGE (If Supplied By Facility): CTDIvol = ( 44.99 ) mGy, DLP = ( 863.60 ) mGycm TECHNIQUE: Transaxial CT imaging of the brain was performed without administration of intravenous contrast material. Individualized dose optimization techniques were used for this CT. COMPARISON: Comparison is made with prior study dated July 08, 2018. FINDINGS: Normal soft tissue structures. Normal calvarium. There is moderate cerebral atrophy with widening of the extra- axial spaces and ventricular dilatation. There are areas of decreased attenuation within the white matter tracts of the supratentorial brain, consistent with microvascular disease changes. Given septum pellucidum. Normal basal ganglia and thalami. Normal brainstem. There is mild cerebellar atrophy. There is no intracranial hemorrhage. There are no findings of an acute ischemic infarction. Atherosclerotic calcification of the cavernous portions of the internal carotid arteries bilaterally. Normal visualized paranasal sinuses. CT/Brain/Head without Contrast IMPRESSION: Chronic involutional changes of the brain. There has been no change since prior study. Electronically Signed: Seymour Shelley MD at 9:45 EST Tel [phone], Service support , CC: Anjana Raphael MD; Wili Nelson DO Lighting Engineer: Signed BEDSIDE GLUCOSE Collected: 07/09/2018 Status: F Source: [place] 7:01 AM [facility] REPOS[facility]ORY TYPE CODE TESTS RESULT OUT OF REFERENCE UNITS RANGE LAB L501.080 70-110 mg/dL High BEDSIDE GLU 174 Result Comment: MANAGEMENT OF PATIENT CARE PER NURSING PROTOCOL Performed By: #### L501.080 #### [facility] Point of Care [address] [facility] [place], [place] [address] LIPID PROFILE Collected: 07/09/2018 Status: F Source: [place] 6:42 AM [facility] REPOSITORY TYPE CODE TESTS RESULT OUT OF RANGE REFERENCE UNITS LAB L501.4900 200 mg/dL Normal CHOL 142 Result Comment: <200 mg/dL Desirable 200-240 mg/dL Borderline >240 mg/dL High Risk LAB L501.5000 mg/dL Normal TRIG 190 Result Comment: The drugs N-Acetylcysteine and Metamizole may falsely depress this assay. Serum Triglycerides Reference Interval Normal <150 mg/dL Borderline high 150 - 199 mg/dL High 200 - 499 mg/dL Very High > or = 500 mg/dL LAB L501.6400 mg/dL Low HDL 34 Result Comment: The drugs N-Acetylcysteine and Metamizole may falsely depress this assay. Reference Range HDL <40 mg/dL Low HDL Cholesterol HDL >or= 60 mg/dL High HDL Cholesterol LAB L501.6500 0-130 mg/dL Normal LDL 70 LAB L501.6600 5-40 mg/dL Normal VLDL 38 Performed By: #### L500.4100 #### [facility] [address] [facility]. [place], [place], [address] HEMOGLOBIN A1C Collected: 07/09/2018 Status: F Source: [place] 6:42 AM [facility] REPOSITORY TYPE CODE TESTS RESULT OUT OF RANGE REFERENCE UNITS LAB L501.9985 4.2-6.3 % High HGB A1C 10.4 Performed By: #### L501.9985 #### [facility] [address] [place], [address] BEDSIDE GLUCOSE Collected: 07/08/2018 Status: F Source: [place] 9:23 PM [facility] REPOSITORY TYPE CODE TESTS RESULT OUT OF REFERENCE UNITS RANGE LAB L501.080 70-110 mg/dL High BEDSIDE GLU 206 Result Comment: MANAGEMENT OF PATIENT CARE PER NURSING PROTOCOL Performed By: #### L501.080 #### [facility] Point of Care [address] [place] [address] HISTORY AND PHYSICAL Observed: 07/08/2018 Status: F Source: [place] EXAM 5:33 PM [facility] Medical Records Department [address] [place] [address] History and Physical 07/08/18 1305 MR#: [id number] Acct: [id number] Name: DAVID LOUIS Rep #: [id number] : 1940 77 From: Duncan Paris MD PCP: Wili Nelson DO Status: ADM TONY Y Location: [place] [address] Problem List (1) TIA Status: Acute (2) Status post placement of implantable loop recorder Status: Chronic (3) Symptomatic sinus bradycardia Status: Acute (4) Recurrent falls Status: Acute (5) Thromboembolism Status: Chronic (6) BPH (benign prostatic hyperplasia) Status: Chronic (7) Super obesity Status: Chronic (8) Cystitis Status: Resolved (9) Debility Status: Chronic (10) Noncompliance Status: Chronic Comment: with CPAP and follow up and with diet (11) COPD (chronic obstructive pulmonary disease) Status: Chronic (12) Type II diabetes mellitus, uncontrolled Status: Chronic (13) History of depression Status: Chronic (14) History of other venous thrombosis and embolism Status: Chronic (15) HLD (hyperlipidemia) Status: Chronic Qualifiers: Hyperlipidemia type: pure hypercholesterolemia Qualified Code(s): E78.00 - Pure hypercholesterolemia, unspecified; E78.0 - Pure hypercholesterolemia (16) HTN (hypertension) Status: Chronic Qualifiers: Hypertension type: essential hypertension Qualified Code(s): I10 - Essential (primary) hypertension (17) NILO (obstructive sleep apnea) Status: Chronic Comment: BiPAP ST 18/12 cm of water (18) Chronic renal failure, stage 3 (moderate) Status: Chronic (19) Bifascicular bundle branch block Status: Chronic (20) Colon polyps Status: Chronic (21) Family history of colon cancer Status: Chronic History of Present Illness Date of Admission: 07/08/18 Chief Complaint: Left hand paresthesia and mild language deficit The patient is a 77 year old M with multiple comorbidities as listed above including sinus bradycardia, COPD, type 2 diabetes mellitus, obstructive sleep apnea, bifascicular block status post implantable loop recorder and history of VT E came to ER with sudden onset of left hand paresthesia when he woke up at 9 AM and mild slurring speech and mild incomprehensible as per her daughter but patient denies receptive aphasia. Patient denies change in vision or floaters. Denies any other weakness or paresthesia in the lower extremities. Denies previous stroke. The patient was last admitted in March 2018 for syncope most probably secondary to bradycardia for which metoprolol dose was decreased and patient had implantable loop recorder subsequently. In ED, basic blood workup is on baseline, except BUN 21, creatinine 1.97 slightly elevated from baseline 21/1.78 in February 2018. Troponins are negative. TSH normal. Chest x-ray shows cardiomegaly. Past Medical History Past Medical History (Chronic Problems): Chronic Problems (Last Reviewed 06/16/18 @ 14:31 by Aicha Szymanski, INSPECTOR [employer]URN[employer]S-C) 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) BPH (benign prostatic hyperplasia) (Chronic) Super obesity (Chronic) Debility (Chronic) Noncompliance (Chronic) with CPAP and follow up and with diet COPD (chronic obstructive pulmonary disease) (Chronic) Type II diabetes mellitus, uncontrolled (Chronic) History of depression (Chronic) History of other venous thrombosis and embolism (Chronic) HLD (hyperlipidemia) (Chronic) HTN (hypertension) (Chronic) NILO (obstructive sleep apnea) (Chronic) BiPAP ST 18/12 cm of water Chronic renal failure, stage 3 (moderate) (Chronic) Bifascicular bundle branch block (Chronic) Colon polyps (Chronic) Family history of colon cancer (Chronic) Medical History: Medical History (Last Reviewed 12/26/18 @ 14:31 by BETTYE Aguilera) Status post placement of implantable loop recorder (Chronic) Z95.818 Thromboembolism (Chronic) I74.9 BPH (benign prostatic hyperplasia) (Chronic) N40.0 Super obesity (Chronic) E66.9 Cystitis (Resolved) N30.90 Debility (Chronic) R53.81 Noncompliance (Chronic) Z91.19 with CPAP and follow up and with diet COPD (chronic obstructive pulmonary disease) (Chronic) J44.9 Type II diabetes mellitus, uncontrolled (Chronic) E11.65 History of depression (Chronic) Z86.59 History of other venous thrombosis and embolism (Chronic) Z86.718 HLD (hyperlipidemia) (Chronic) E78.5 HTN (hypertension) (Chronic) I10 NILO (obstructive sleep apnea) (Chronic) G47.[address] 18/12 cm of water Chronic renal failure, stage 3 (moderate) (Chronic) N18.3 Bifascicular bundle branch block (Chronic) I45.2 Colon polyps (Chronic) Family history of colon cancer (Chronic) Z80.0 History of kidney stones (Resolved) Z87.442 MRSA (methicillin resistant staph aureus) culture positive (Resolved) Z22.322 Allergies MARGIE Inhibitors Allergy (Unknown, Verified 07/08/18 10:42) Unknown cefepime Allergy (Verified 07/08/18 10:42) Other WEAKNESS AND FALLING ipodate [Ipodate] Allergy (Verified 07/08/18 10:42) Shortness of breath levofloxacin [Levofloxacin] Allergy (Verified 07/08/18 10:42) Anaphylaxis lisinopril Allergy (Verified 07/08/18 10:42) Shortness of breath ofloxacin Allergy (Verified 07/08/18 10:42) Unknown Quinolones Allergy (Verified 07/08/18 10:42) Anaphylaxis Home Medications: Ambulatory Orders Medication Instructions Recorded Atorvastatin Calcium [Lipitor] 40 mg PO QHS 05/29/15 Surgical History: - - Circumcision, excision of kidney stone Psychiatric History: Depression Smoking Status: Former smoker - *Family History Maternal Family History: Family History (Last Reviewed 06/16/18 @ 14:31 by BETTYE Aguilera) Father Colon cancer Mother Cancer Sister CAD (coronary artery disease) History Items: Cancer - Patient's mother of cancer but he is not sure what kind of cancer. Paternal Family History: Family History (Last Reviewed 06/16/18 @ 14:31 by BETTYE Aguilera) Father Colon cancer Mother Cancer Sister CAD (coronary artery disease) History Items: Cancer - Father of colon cancer Offspring Family History: Family History (Last Reviewed 06/16/18 @ 14:31 by BETTYE Aguilera) Father Colon cancer Mother Cancer Sister CAD (coronary artery disease) History Items: - - He has a son who is morbidly obese and suffers from breathing problems and heart problems. Review of Systems Constitutional: Denies: Chills, Fever, Weight Change HEENT: Denies: Head Aches, Sinus Congestion, Sinus Drainage Cardiovascular: Reports: Edema, -. Denies: Chest Pain, Claudication, Chest Pressure, Palpitations Respiratory: Denies: Cough, Shortness of breath at rest, Sputum production Gastrointestinal: Denies: Abdominal Pain, Nausea, Vomiting Genitourinary: Denies: Dysuria Musculoskeletal: Reports: Back Pain. Denies: Joint Pain, Joint Tenderness Skin: Denies: Rash, Wounds Neurological: Reports: Balance problems, Incoordination, Numbness, Tingling. Denies: Focal weakness Psychiatric: Denies: Anxiety, Depression, Homicidal Ideations, Suicidal Ideations Hematologic/ Lymphatic: Denies: Easy Bruising, Easy Bleeding VTE Information - Inpt Only VTE Present on Admission: No VTE Mechan Device Prophylaxis: None VTE Pharm Prophylaxis ordered?: Yes Patient Problems: Active and Suspected Problems (Last Reviewed 06/16/18 @ 14:31 by BETTYE Aguilera) TIA (Acute) - Physical Exam General: Alert, Oriented x3, Cooperative HEENT: Atraumatic, PERRLA, EOMI, Normocephalic Oral: Dry Mucosa Neck: Supple, No JVD, Negative Carotid Bruits Lungs: Clear to auscultation, No rhonchi, No rales, Diminished - Air entry diminished in bilateral lung bases Cardiovascular: Regular rate, Regular Rhythm, Normal S1, Normal S2, Bradycardic, - - Implantable loop recorder Abdomen: Bowel Sounds Present, Soft, Non Tender, Non-Distended Extremities: Capillary Refill Less than 3 Seconds, Edema Skin: - - Chronic lymphedema and venous edema with grayish pigmetation on both lower legs Musculoskeletal: No Tenderness to Palpation of Joints or Extremities, Arthritic Changes, Muscle Wasting Neurological: Deep Tendon Reflexes 2+/4 and Symmetrical, Neuro grossly intact, - - Chronic mild lower extremity weakness secondary to lymphedema and arthritis No upper extremity weakness, strength 5/5. Mild left-sided drooping but I think it is chronic Psych/Mental Status: Normal Affect, Appropriate Vital Signs Temp Pulse Resp BP Pulse Ox 98.1 F 40 L 18 118/55 L 94 07/08/18 10:44 07/08/18 12:00 07/08/18 12:00 07/08/18 12:00 07/08/18 12:00 Oxygen Delivery Method Room Air Weight: 380 lb Body Mass Index (BMI) 51.5 Finger Stick Blood Glucose 382 Laboratory Tests Past 24 Hrs POC Glucose POC Glucose 382 H Assessment/Plan All Active Problems (Last Reviewed 06/16/18 @ 14:31 by Aicha Szymanski NP-C) TIA (Acute) Symptomatic sinus bradycardia (Acute) Recurrent falls (Acute) Cystitis (Resolved) History of kidney stones (Resolved) MRSA (methicillin resistant staph aureus) culture positive (Resolved) The patient is a 77 year old M with multiple comorbidities as listed above including sinus bradycardia, COPD, type 2 diabetes mellitus, obstructive sleep apnea, bifascicular block status post implantable loop recorder and history of VT E came to ER with sudden onset of left hand paresthesia when he woke up at 9 AM and mild slurring speech and mild incomprehensible as per her daughter but patient denies receptive aphasia. Patient denies change in vision or floaters. Denies any other weakness or paresthesia in the lower extremities. Denies previous stroke. The patient was last admitted in March 2018 for syncope most probably secondary to bradycardia for which metoprolol dose was decreased and patient had implantable loop recorder subsequently. In ED, basic blood workup is on baseline, except BUN 21, creatinine 1.97 which is similar to baseline /1.78 in February 2018. Troponins are negative. TSH normal. Chest x-ray shows cardiomegaly. 1. TIA/left hand peripheral neuropathy/cervical neuropathy: Patient is being admitted in PCU. MRI brain ordered and if positive for stroke we will do full workup including head and neck MRA. Patient is not candidate for CT angiogram because of CKD. Patient had recent echo on 03/12/2018 which reported as stage II diastolic dysfunction with EF 55% with no regional wall motion abnormality. Mild TR, RVSP 50 mmHg. No pericardial effusion. Mitral valve not reported probably from technically difficult study. Patient had a stress echo on 03/11/2018 and reported as no evidence of ischemia. On aspirin and statin. Control BP and glucose as per stroke guidelines. Neurology consult. PT/OT/speech evaluation. 2. Sinus bradycardia with bifascicular block: Patient heart rate runs in 40/min. Hold beta-zen. EKG shows marked sinus bradycardia, QRS duration 162 ms with first-degree AV block at 42 bpm, LAD, right bundle branch block and left anterior fascicular block. Patient follows Dr. phillips. 3. CKD stage III: BUN 21, creatinine 1.97 is on baseline, which is similar 1.95 in February 2018. Monitor electrolytes and kidney function. Patient is not on diuretic at home but on Cozaar. 4. Hypertension: Continue Cozaar. Blood pressure is 145/59, 128/54. 5. Diabetes mellitus type 2: Blood sugar is uncontrolled. Glucose 383 on BMP. Accu-Chek before meals and at bedtime. Pre-meal Humalog insulin increased. On Levemir. A1c tomorrow a.m. 6. Other chronic comorbidities include history of VT, BPH, COPD, depression, obstructive sleep apnea on BiPAP. Home medication reconciliation done. Laboratory Results 07/08/18 10:50: POC Glucose 382 H 07/08/18 10:50: WBC 5.8, RBC 4.54 L, Hgb 13.0, Hct 39.6 L, MCV 87.2, MCH 28.6, MCHC 32.8, RDW 13.3, RDW Differential 41.2, Plt Count 218, MPV 9.6, Immature Gran % (Auto) 0.500, Neut % (Auto) 74.0 H, Lymph % (Auto) 14.7 L, Park % (Auto) 7.6, Eos % (Auto) 2.9, Baso % (Auto) 0.3, Absolute Neuts (auto) 4.3, Absolute Lymphs (auto) 0.85, Total Counted Not Reportable 07/08/18 10:50: PT 15.0 H, INR 1.2, APTT 35.8 07/08/18 10:50: Sodium 136, Potassium 4.3, Chloride 103, Carbon Dioxide 26.0, Anion Gap 7, BUN 21 H, Creatinine 1.97 H, Estim Creat Clear Calc 34.47, Est GFR (MDRD) Af Amer 43 L, Est GFR (MDRD) Non-Af 35 L, BUN/Creatinine Ratio 10.7, Glucose 383 H, Calcium 8.8, Troponin I < 0.015 07/08/18 13:20: Urine Color Yellow, Urine Clarity Cloudy, Urine pH 5.0, Ur Specific [place] 1.015, Urine Protein 100 H, Urine Glucose (UA) 1000 H, Urine Ketones Negative, Urine Occult Blood 250 H, Urine Nitrite Negative, Urine Bilirubin Negative, Urine Urobilinogen Normal, Ur Leukocyte Esterase 500 H, Urine RBC 50-100 SEEN, Urine WBC 50-100 SEEN, Ur Squamous Epith Cells 0 SEEN, Urine Bacteria 1+, Urine Mucus 0 SEEN 07/08/18 14:30: Troponin I < 0.015, TSH 2.17 Later on, MRI brain does not show acute infarct. Clinical Impression(s) from Imaging Studies Brain CT 07/08/18 10:54 IMPRESSION: Chronic involutional changes of the brain. Chest X-Ray 07/08/18 10:54 IMPRESSION: Cardiomegaly. Brain MRI 07/08/18 14:03 IMPRESSION: Mild atrophy and periventricular white matter ischemic changes without evidence for acute infarct Code Visit OBSV E AND M: [id number] Initial observation care L3 07/08/18 1733 <Electronically signed by Duncan Paris MD> Date Duncan Paris MD Cosigner Signature: Date (if applicable) CC: Wili Nelson DO; Duncan Paris MD Signed BEDSIDE GLUCOSE Collected: 07/08/2018 Status: F Source: [place] 4:36 PM [facility] REPOSITORY TYPE CODE TESTS RESULT OUT OF REFERENCE UNITS RANGE LAB L501.080 70-110 mg/dL High BEDSIDE GLU 215 Result Comment: MANAGEMENT OF PATIENT CARE PER NURSING PROTOCOL Performed By: #### L501.080 #### [facility] Point of Care [address] [place] [address] EMERGENCY DEPARTMENT Observed: 07/08/2018 Status: F Source: [place] SUMMARY 4:04 PM [facility] REPOSITORY [facility] Medical Records Department [address] [place] [address] Emergency Department Summary 07/08/18 1056 MR#: [id number] Acct: [id number] Name: DAVID LOUIS Rep #: [id number] : 1940 77 From: Sy Zavala MD PCP: Wili Nelson DO Status: ADM TONY - ER Visit Summary Date of Service: 07/08/18 Chief Complaint: Left hand weakness History of Present Illness: The patient is a 77 M tree of diabetes insulin-dependent, hypertension, high cholesterol and prior PE for which she is on Eliquis for blood thinner. Patient went to bed last night around 9 PM study was fine. When he woke up this morning at 9 AM he states that he had weakness of the left hand when he would try to hold some it would drop. He denies any headache. He denies any slurred speech. He denies any visual change. He is able to ambulate in the denies any problems with his balance. No prior stroke or mini stroke. Family states he had issues like this 1 other time and it was secondary to urinary tract infection. Physical Examination: Signs are stable and afebrile. He is currently in no distress. H EENT exam unremarkable. No facial droop. Pupils are round reactive light. Extra motions are intact. He has normal speech. There is no slurring. There is no dysarthria. Neck nontender. Lungs clear to auscultation bilaterally. Heart regular rhythm rate about 50-60. No murmur. Chest wall nontender. Abdomen obese but soft and nontender. Normal bowel sounds. Patient is moving all 4 extremities. They appear to be neurovascularly intact. Currently he has no weakness in his left hand. 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 Fingertip to nose within normal limits bilaterally. Dorsi and plantar flexion intact. NIH score is 0. Test Results: Stroke workup. CT of the brain without contrast read by the radiologist as no acute changes. Reviewed by myself. Chest x-ray portable cardiomegaly no acute process read both by myself and radiologist. EKG sinus bradycardia rate of 42 family states heart rate. CBC unremarkable white count of 5. Hemoglobin 13. Electrolytes creatinine 1.97 he has baseline renal insufficiency. Glucose 383 normal gap. Troponin normal. Emergency Department Course and Treatment: Repeat exam at 1250 patient is doing well. He seems to have a normal neurologic exam at this NIH since his been in the ER is been 0. Treatment Plan: Spoke to the hospitalist and the patient will be brought in for further evaluation of left hand weakness that is resolved. This may or may not have been a TIA. Disposition: Admission Impression: Transient left hand weakness resolved History of noncemented diabetes, high cholesterol and hypertension. They are PE with chronic anticoagulation on Eliquis This note was generated with [employer] software. It may contain incorrect words, spelling, and punctuation that were not noted in review of the chart prior to signing ED Disposition - Plan for ED Patient: Chief Complaint: Neuro S/Sx Referrals: Wili Nelson, DO [Primary Care Provider] - What to do if you have Problems For any increased pain, shortness of breath, bleeding, nausea or vomiting, chest pain, or any unexpected problems, contact your Primary Care Provider. Call [facility] ([phone]) or report to the closest Emergency Room. Call 911 if necessary. 07/08/18 7874 <Electronically signed by Sy Zavala MD> Date Sy Zavala MD Cosigner Signature (If Indicated): Date CC: Wili Nelson DO TROPONIN-I Collected: 07/08/2018 Status: F Source: [place] 2:30 PM [facility] REPOSITORY TYPE CODE TESTS RESULT OUT OF RANGE REFERENCE UNITS LAB L501.4010 <0.045 ng/mL Normal < 0.015 TROPONIN-I Result Comment: TROPONIN-I EXPECTED VALUES <0.045 Negative 0.045 - 0.590 Consistent with Cardiac Damage > OR = 0.600 Critical Value Not every elevated troponin is indicative of AL. These values should be used with clinical judgement in examining the patient's clinical picture for diagnosis. To establish a diagnosis of AL versus myocardial injury, there must be a demonstrated rise and/or fall in the troponin values, in addition to ischemic symptoms, EKG changes, new regional wall motion abnormality, and/or angiographical evidence. PLEASE NOTE: REFERENCE RANGES EDITED 17 Performed By: #### L501.4010, L501.9520 #### [facility] [address], [address] THYROID STIM HORMONE Collected: 07/08/2018 Status: F Source: [place] (TSH) 2:30 PM [facility] REPOSITORY TYPE CODE TESTS RESULT OUT OF RANGE REFERENCE UNITS LAB L501.9520 0.358-3.74 uIU/mL Normal TSH 2.17 Performed By: #### L501.4010, L501.9520 #### [facility] [address], [address] BRAIN WITHOUT Observed: 07/08/2018 Status: F Source: [place] CONTRAST 2:04 PM [facility] REPOSITORY [facility] Imaging Services [address] [place] [address] Brain without Contrast MR#: [id number] Acct: [id number] Name: DAVID LOUIS Rep #: [id number] : 1940 77 From: Sy Gonzalez MD PCP: Wili Nelson DO Status: ADM TONY Study: Brain without Contrast Date of Exam: 07/08/18 Exam# [id number] Ordering Dr: Duncan Paris MD STUDY: MRI BRAIN WITHOUT CONTRAST REASON FOR EXAM: Male, 77 years old. Left arm weakness and slurred speech TECHNIQUE: Standardized multiplanar fat and water weighted pulse sequences were obtained. COMPARISON: CT of the brain on July 08, 2018 FINDINGS: Mild atrophy and minor periventricular white matter ischemic changes.. Normal bilateral basal ganglia. Normal thalami. There is no extra-axial fluid accumulation. Incidental finding of cavum septa pellucida which is normal developmental variant. Normal flow voids within the major intracranial circulation suggesting patency by spin echo criteria. Normal sella turcica, pituitary gland, infundibular stalk, optic chiasm and hypothalamus. Normal tectal plate and pineal gland. Normal midbrain, sherri and medulla. Normal cerebellum. Normal basal cisterns. Normal bilateral temporal bones. Normal bilateral internal auditory canals. No demonstrated orbital abnormality, within the constraints of a routine brain study. There is mild mucosal thickening within the ethmoid air cells.. Normal calvarium and skull base. Normal visualized soft tissue structures. Normal visualized upper cervical spine. MRI/Brain without Contrast IMPRESSION: Mild atrophy and periventricular white matter ischemic changes without evidence for acute infarct Electronically Signed: Sy Gonzalez MD at 16:16 EST , Service support , CC: Wili Nelson DO; Duncan Paris MD Lighting Engineer: Signed URINALYSIS, COMPLETE Collected: 07/08/2018 Status: F Source: [place] 1:20 PM [facility] REPOSITORY Order Comment: How was Urine Obtained? [employer] HEAD TO SPECIFY TYPE CODE TESTS RESULT OUT OF RANGE REFERENCE UNITS LAB L400.3000 Yellow COLOR Normal Yellow LAB L400.3050 Clear Normal CLARITY Cloudy LAB L400.3200 Normal mg/dl High GLUCOSE, UR 1000 LAB L400.3300 Negative mg/dL Normal BILIRUBIN URINE Negative LAB L400.3400 Negative mg/dl Normal KETONE UR Negative LAB L400.3465 1.002-1.030 Normal SP.GR. DIPSTX 1.015 LAB L400.3550 5.0 - 8.0 pH UR Normal 5.0 LAB L400.3600 Negative mg/dl High PROT DIPSTX 100 LAB L400.3700 Normal mg/dl Normal UROBILI Normal LAB L400.3750 Negative Normal NITRITE UR Negative LAB L400.3780 Negative /ul High OCCULT BLOOD-UR 250 LAB L400.3800 Negative /ul High LEUK ESTERASE 500 LAB L400.4050 0-5 /hpf WBC Normal 50-100 SEEN LAB L400.4100 0-5 /hpf Normal RBC-UA 50-100 SEEN LAB L400.4150 0-5 /hpf SQUAM 0 Normal EPI SEEN LAB L400.4300 None Seen /hpf 1+ Normal BACTERIA LAB L400.4350 <or=2+ /hpf 0 Normal MUCUS, URINE SEEN Performed By: #### L400.0001 #### [facility] [address] [place], [address] BRAIN/HEAD WITHOUT Observed: 07/08/2018 Status: F Source: [place] CONTRAST 10:56 AM [facility] REPOSITORY [facility] Imaging Services [address] [place] [address] Brain/Head without Contrast MR#: [id number] Acct: [id number] Name: DAVID LOUIS Rep #: [id number] : 1940 77 From: Seymour Shelley MD PCP: Wili Nelson DO Status: REG ER Study: Brain/Head without Contrast Date of Exam: 07/08/18 Exam# [id number] Ordering Dr: Sy Zavala MD STUDY: CT BRAIN WITHOUT CONTRAST REASON FOR EXAM: Male, 77 years old. Slurred speech. Left and weakness. RADIATION DOSAGE (If Supplied By Facility): CTDIvol = ( 44.99 ) mGy, DLP = ( 849.54 ) mGycm TECHNIQUE: Transaxial CT imaging of the brain was performed without administration of intravenous contrast material. Individualized dose optimization techniques were used for this CT. COMPARISON: Comparison is made with prior study dated July 24, 2017. FINDINGS: Normal soft tissue structures. Normal calvarium. There is moderate cerebral atrophy with widening of the extra- axial spaces and ventricular dilatation. There are areas of decreased attenuation within the white matter tracts of the supratentorial brain, consistent with microvascular disease changes. 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 Normal basal ganglia and thalami. Normal brainstem. There is mild cerebellar atrophy. There is no intracranial hemorrhage. There are no findings of an acute ischemic infarction. Atherosclerotic calcification of the cavernous portion of the internal carotid arteries bilaterally. Normal visualized paranasal sinuses. CT/Brain/Head without Contrast IMPRESSION: Chronic involutional changes of the brain. Electronically Signed: Seymour Shelley MD at 12:25 EST Tel [phone], Service support , CC: Sy Zavala MD; Wili Nelson DO Lighting Engineer: Signed CHEST 1 VIEW Observed: 07/08/2018 Status: F Source: [place] 10:56 AM [facility] REPOSITORY [facility] Imaging Services [address] [address] Chest 1 View MR#: [id number] Acct: [id number] Name: DAVID LOUIS Rep #: [id number] : 1940 77 From: Seymour Shelley MD PCP: Wili Nelson DO Status: REG ER Study: Chest 1 View Date of Exam: 07/08/18 Exam# [id number] Ordering Dr: Sy Zavala MD STUDY: X-RAY CHEST REASON FOR EXAM: Male, 77 years old. Chest pain. TECHNIQUE: Single AP portable view of the chest. COMPARISON: Comparison is made with prior study dated March 11, 2018. FINDINGS: EKG electrodes are seen. The lungs are clear and expanded. There is no demonstrated pleural abnormality. There is moderate cardiac enlargement. Normal mediastinum and denys. Normal visualized pulmonary arteries. There is atherosclerotic tortuosity of the aortic arch and descending thoracic aorta. There are diffuse degenerative changes of the visualized thoracic spine. Normal visualized ribs, clavicles, and shoulders. There is no demonstrated abnormality of the visualized soft tissue structures of the upper abdomen. RAD/Chest 1 View IMPRESSION: Cardiomegaly. Electronically Signed: Seymour Shelley MD at 12:26 EST Tel [phone], Service support , CC: Sy Zavala MD; Wili Nelson DO Lighting Engineer: Signed BEDSIDE GLUCOSE Collected: 07/08/2018 Status: F Source: [place] 10:50 AM [facility] REPOSITORY TYPE CODE TESTS RESULT OUT OF REFERENCE UNITS RANGE LAB L501.080 70-110 mg/dL High BEDSIDE GLU 382 Result Comment: Orders Followed MANAGEMENT OF PATIENT CARE PER NURSING PROTOCOL Performed By: #### L501.080 #### [facility] Point of Care [address] [place] [address] CBC W/DIFF, AUTOMATED Collected: 07/08/2018 Status: F Source: [place] 10:50 AM [facility] REPOSITORY TYPE CODE TESTS RESULT OUT OF RANGE REFERENCE UNITS LAB L100.1000 4.4-11.0 K/mm3 Normal WBC 5.8 LAB L100.1200 4.6-6.2 M/mm3 Low RBC 4.54 LAB L100.1300 13.0-16.5 g/dl Normal HGB 13.0 LAB L100.1400 40-54 % Low HCT 39.6 LAB L100.1500 80-94 fL Normal MCV 87.2 LAB L100.1600 27.0-32.0 pg Normal MCH 28.6 LAB L100.1700 32-36 g/gl Normal MCHC 32.8 LAB L100.1810 11.6-14.6 % Normal RDW CV 13.3 LAB L100.1820 35.1-43.9 fl Normal RDW SD 41.2 LAB L100.1900 150-450 K/mm3 Normal PLT 218 LAB L100.2000 6.2-12.0 fl Normal MPV 9.6 LAB L100.2100 47-70 % High NEUT% 74.0 LAB L100.2200 19-41 % Low LY% 14.7 LAB L100.2300 0-10 % Normal MONO% 7.6 LAB L100.2400 0-5 % Normal EO% 2.9 LAB L100.2500 0-1 % Normal BASO% 0.3 LAB L100.2550 0.0-0.9 % Normal IM GRAN % 0.500 Result Comment: IG% - Immature Granulocytes (promyelocytes, myelocytes and metamyelocytes) > 1% indicates that a LEFT SHIFT is Present. LAB L100.2620 2.0-7.7 X10 3/uL Normal Absolute Neut 4.3 LAB L100.2720 0.83-4.51 X10 3/ul Normal Absolute Lymph 0.85 Performed By: #### L100.0100 #### [facility] [address] [place], [address] BASIC METABOLIC Collected: 07/08/2018 Status: F Source: [place] PROFILE (BMP) 10:50 AM [facility] REPOSITORY TYPE CODE TESTS RESULT OUT OF RANGE REFERENCE UNITS LAB L501.0100 74-106 mg/dL High GLU 383 Result Comment: Glucose result greater than or equal to 200 mg/dL suggests DIABETES MELLITUS per A.D.A. criteria. Please note revised GLUCOSE reference range effective 2017. LAB L501.1000 7-18 mg/dL High BUN 21 LAB L501.1100 0.70-1.30 mg/dL High CREAT,SERUM 1.97 Result Comment: The validity of the calculated GFR AND GFRAA in patients over 70 years has not been determined. Clinical correlation is essential. LAB L501.1110 >60 mL/min Low EST GFR 35 Result Comment: Non- GFR Calc LAB L501.1115 >60 mL/min Low EST GFR - AA 43 Result Comment: GFR Calc LAB L501.1255 ml/min Normal Estimated CRCL 34.47 LAB L501.1300 10-20 RATIO Normal BUN/CRE 10.7 LAB L501.2200 8.5-10 mg/dL Normal .1 CA 8.8 LAB L501.5300 136-14 mmol/L Normal 5 NA 136 LAB L501.5600 3.5-5. mmol/L Normal 1 K 4.3 LAB L501.5900 98-107 mmol/L Normal CL 103 LAB L501.6100 21.0-3 mmol/L Normal 2.0 CO2 26.0 LAB L501.6200 5-15 Normal GAP 7 Performed By: #### L500.2500, L501.4010 #### [facility] [address] [place], [address] TROPONIN-I Collected: 07/08/2018 Status: F Source: [place] 10:50 AM [facility] REPOSITORY TYPE CODE TESTS RESULT OUT OF RANGE REFERENCE UNITS LAB L501.4010 <0.045 ng/mL Normal < 0.015 TROPONIN-I Result Comment: TROPONIN-I EXPECTED VALUES <0.045 Negative 0.045 - 0.590 Consistent with Cardiac Damage > OR = 0.600 Critical Value Not every elevated troponin is indicative of AL. These values should be used with clinical judgement in examining the patient's clinical picture for diagnosis. To establish a diagnosis of AL versus myocardial injury, there must be a demonstrated rise and/or fall in the troponin values, in addition to ischemic symptoms, EKG changes, new regional wall motion abnormality, and/or angiographical evidence. PLEASE NOTE: REFERENCE RANGES EDITED 17 Performed By: #### L500.2500, L501.4010 #### [facility] [address] [place], [address] PROTHROMBIN TIME W/INR Collected: 07/08/2018 Status: F Source: [place] 10:50 AM [facility] REPOSITORY TYPE CODE TESTS RESULT OUT OF RANGE REFERENCE UNITS LAB L300.4150 11.7-14.9 SECONDS High PROTIME 15.0 LAB L300.4200 Normal INR 1.2 Performed By: #### L300.3900, L300.4310 #### [facility] [address] [place], [address] PARTIAL THROMBOPLAST Collected: 07/08/2018 Status: F Source: [place] TIME 10:50 AM [facility] REPOSITORY TYPE CODE TESTS RESULT OUT OF RANGE REFERENCE UNITS LAB L300.4310 24.1-36.2 Seconds Normal PTT 35.8 Performed By: #### L300.3900, L300.4310 #### [facility] [address] [place], [address] PACEMAKER CHECK Observed: 07/06/2018 Status: F Source: [place] 10:08 AM [facility] REPOSITORY [facility] [address] [place] [address] Pacemaker Check Date of Service: 06/30/181807 MR#: [id number] Acct: [id number] Name: DAVID LOUIS Rep #: [id number] : 1940 From: Jeanne Quintero Age/Sex: 77/M Location: [facility] Status: Signed Billing Codes ILR Device Interrogate: Yes 06/30/181808 <Electronically signed by Jeanne Quintero > Date Jeanne Quintero 07/06/18 1008<Electronically signed by Greg Phillips MD> [place] Signature: Date (if applicable) Greg Phillips MD CC: PACEMAKER CHECK Observed: 06/28/2018 Status: F Source: [place] 6:44 AM [facility] REPOSITORY [facility] [place] [address] [place] [address] Pacemaker Check Date of Service: 06/24/18 1047 MR#: [id number] Acct: [id number] Name: DAVID LOUIS Rep #: [id number] : 1940 From: Jeanne Quintero Age/Sex: 77/M Location: [facility] Status: Signed Billing Codes ILR Device Interrogate: Yes 06/24/18 104 <Electronically signed by Jeanne Quintero > Date Jeanne Quintero 06/28/18 0644<Electronically signed by Greg Phillips MD> Cosigner Signature: Date (if applicable) Greg Phillips MD CC: PULMONARY VISIT REPORT Observed: 06/16/2018 Status: F Source: [place] 3:03 PM [facility] REPOSITORY [facility] [address] [place] [address] OFFICE VISIT Date of Service: 06/16/18 MR#: [id number] Acct: [id number] Name: DAVID LOUIS Rep #: [id number] : 1940 Provider: Aicha Szymanski Age/Sex: 77/M Location: [facility] Status: Signed Assessment AND Plan 1. NILO (obstructive sleep apnea) G47.[address] 18/12 cm of water Plan Deteriorated. Recent titration study identifies a greater than 50% of his events are central in nature. Therefore, he is going to be referred to neurology to handle his sleep apnea. Referral placed. No changes made to BiPAP settings until patient sees neurology, defer management to them. Orders Referrals: 2. 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 HPI 6 wk FU: Chief Complaint: Daytime hypersomnia HPI Comments Details: This patient presents to the office today to follow-up on his sleep apnea. He is ambulatory, currently on room air and accompanied by his . He reports compliance with his BiPAP, but unfortunately continues to experience 2 episodes of nocturia nightly and occasional naps throughout the day. He also reports pretty significant air leak, and notes that his BiPAP humidification water runs out before morning. He continues to experience daytime hypersomnia but admits that he does feel rested when he arises in the morning. He does report shortness of breath all the time but this has not changed since his last office visit. He has occasional wheezing and chest tightness. He has an occasional cough that is productive of white sputum. He is compliant with Flonase daily. He uses pro-air a couple times per week. He denies any chest pain or palpitations. He does have lower extremity edema. He denies any fever, chills or body aches. Patient study completed on June 08, 2018 shows a central sleep apnea with greater than 50% of events being central in nature, recommended BiPAP ST 25/19 cm of water with a backup rate of 10. Compliance report for the past 3 days was reviewed and shows 97% compliance, average use is 12 hours daily. The patient is currently on Airview 10 ST a at 18/12 cm of water. His AHI remains elevated at an average of 27.2 events per hour and leaks are a consistent problem. Intake Vital Signs06/16/18 Height 6 ft 06/16/18 Weight: 380 lb Intake Visit Reasons: 6 wk FU Heel Cover Splitter Required: No Is patient in pain?: No Allergies MARGIE Inhibitors Allergy (Unknown, Verified 06/16/18 08:35) Unknown cefepime Allergy (Verified 06/16/18 08:35) Other ipodate [Ipodate] Allergy (Verified 06/16/18 08:35) Shortness of breath levofloxacin [Levofloxacin] Allergy (Verified 06/16/18 08:35) Anaphylaxis lisinopril Allergy (Verified 06/16/18 08:35) Shortness of breath ofloxacin Allergy (Verified 06/16/18 08:35) Unknown Quinolones Allergy (Verified 06/16/18 08:35) Anaphylaxis Medications Atorvastatin Calcium [Lipitor] 40 mg PO QHS 05/29/15 [History Confirmed 06/16/18] Citalopram [Celexa] 40 mg PO DAILY 05/29/15 [History Confirmed 06/16/18] Fluticasone 0.05% [Flonase Nasal [place]] 1 spray NASAL BID PRN 05/29/15 [History Confirmed 06/16/18] Tamsulosin HCl [Flomax] 0.8 mg PO DAILY 07/08/16 [History Confirmed 06/16/18] Losartan Potassium [Cozaar] 100 mg PO DAILY 07/24/17 [History Confirmed 06/16/18] Insulin Aspart [Novolog Flexpen] 13 units SC TIDAC #1 flexpen 08/11/17 [Rx Confirmed 06/16/18] albuterol sulfate 90 mcg/actuation breath activated powder inhaler 2 puff INHALATION Q4H PRN #1 ea 02/08/18 [Rx Confirmed 06/16/18] Aspirin E.C. [Ecotrin] 81 mg PO DAILY 03/11/18 [History Confirmed 06/16/18] Gabapentin [Neurontin] 300 mg PO 1700,2200 03/11/18 [History Confirmed 06/16/18] Insulin Detemir [Levemir FlexPen] 30 units SUBCUT BID 03/11/18 [History Confirmed 06/16/18] Isosorbide Mononitrate [Imdur] 30 mg PO DAILY 03/12/18 [History Confirmed 06/16/18] Apixaban [Eliquis] 5 mg PO BID #60 tab 03/15/18 [Rx Confirmed 06/16/18] [facility] Medical History 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) BPH (benign prostatic hyperplasia) (Chronic) Super obesity (Chronic) Cystitis (Resolved) Debility (Chronic) Noncompliance (Chronic) COPD (chronic obstructive pulmonary disease) (Chronic) Type II diabetes mellitus, uncontrolled (Chronic) History of depression (Chronic) History of other venous thrombosis and embolism (Chronic) HLD (hyperlipidemia) (Chronic) HTN (hypertension) (Chronic) NILO (obstructive sleep apnea) (Chronic) Chronic renal failure, stage 3 (moderate) (Chronic) Bifascicular bundle branch block (Chronic) Colon polyps (Chronic) Family history of colon cancer (Chronic) History of kidney stones (Resolved) MRSA (methicillin resistant staph aureus) culture positive (Resolved) Family History Father Colon cancer Mother Cancer Sister CAD (coronary artery disease) Social History Smoking Status: Former smoker quit date: 06/22/07 how long ago did patient quit smoking: cigars, smoked 2 a day, quit in 2007 Review of Systems Const CONSTITUTIONAL: Positive fatigue; negative anorexia, body ache, chills, daytime sleepiness, fever(s), night sweats, oral thrush, stops breathing during sleep, weight loss, sleeping in chair, weight loss, weight gain, frequent colds, seasonal allergies, other, headache(s) or orthopnea EETM Ear Nose Throat Mouth: Positive hearing normal, dry mouth in morning and nasal discharge (clear); negative hard of hearing, hoarseness, change in vision, itchy eyes, eye pain, swallowing Difficulty, ear pain, nose bleed, headache(s), mouth pain, nasal congestion, sinus pain, sinus pressure, sore throat or other Cardio Cardiovascular: Negative chest pain, chest pain at rest, chest pain with activity, irregular heart rhythm, edema, shortness of breath when lying down, palpitations, murmur or other Resp Respiratory: Positive as per HPI, shortness of breath, wheezing, cough cough: Positive productive color: Positive white, chest tightness and apnea; negative pain with cough, chest congestion, pain on inspiration, inhalers, increase use of rescue inhalers, snoring or other Gastro Gastrointestional: Negative bloody stools, change in appetite, difficulty swallowing, reflux, hematemesis, melena stool, loose stool, constipation or other Genitourinary: Positive nocturia; negative blood in urine, pain with urination or other Musc Musculoskeletal: Negative body pain, back pain, neck pain or other Skin/Breast Skin/Breast: Negative dry skin, itching, rash, unusual bruising, breast lump or other Neuro Neurological: Negative restless legs, confusion, weakness or other Psych Psychocological: Negative abnormal sleep pattern, anxiety, thoughts of hurting self/others, hopelessness or other Lymph Lymphatic: Negative easy bleeding, easy bruising, swollen lymph nodes or other Exam Const Constitutional: Positive conversant, cooperative, in no acute respiratory distress, well developed, well nourished and obese Head Head: Positive normocephalic and atraumatic; negative cyanosis of lips/distal nose Eyes Eye: Positive clear conjunctiva; negative nystagmus or scleral abnormality Ears Ear: Positive hearing normal and external ears normal; negative hard of hearing Nose Nose: Positive external nose normal and no nasal discharge; negative epistaxis Mouth Mouth: Positive oral mucosae normal, no lesions, poor dentition and crowded posterior oropharynx; negative malodorous breath or oral thrush present Mallampati Score: IV: Mallampati Score Neck Neck: Positive normal visual inspection, full ROM, trachea midline, thick neck and male neck greater than 43 cm (17 in); negative lymphadenopathy, JVD or tender Chest Wall Chest: Positive normal inspection of the chest and symmetric chest movement; negative increased A/P diameter Resp lung sounds: Positive clear to auscultation, good air exchange, normal expiratory time and normal respiratory effort; negative diminished, wheezes, rhonchi, rales, dullness to percussion or wheeze present on forced exhalation Cardio Cardiac: Positive regular rate and regular rhythm; negative murmur GI GI: Positive normal to inspection and obese; negative distended Genitourinary: Positive deferred Musc Musculoskeletal: Positive steady gait and ROM normal; negative kyphosis or scoliosis Skin Pulmonary Skin Exam: Positive intact; negative rash Pulses Pulse: Yes pulses normal x4 extremities Extremities Extremities: Yes capillary refill normal, No clubbing, No cyanosis, Yes edema Location: lower extremity location: Bilateral pitting +3 Neuro Neurologic: Yes conversant, Yes no focal neuro deficits, Yes normal concentration, Yes understands questions, Yes cooperative, Yes normal coordination, No tremor Lymph Lymphatic: No lymphadenopathy, No tenderness, No cervical adenopathy Psych Appearance: Positive grossly normal and eye contact Mental Status: Positive mental status grossly normal Mood: Positive congruent mood Affect: Positive normal affect Coding Level of Care Code Off vis,est,level 4 Diagnoses NILO (obstructive sleep apnea) G47.33 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 [address] [place], [place] [address] Pacemaker Check Date of Service: 06/01/18 1420 MR#: [id number] Acct: [id number] Name: DAVID LOUIS Rep #: [id number] : 1940 From: Jeanne Quintero Age/Sex: 77/M Location: [facility] Status: Signed Billing Codes ILR Device Interrogate: Yes 06/01/18 1422 <Electronically signed by Jeanne Quintero > Date Jeanne Quintero 06/03/18 1116<Electronically signed by Greg Phillips MD> Cosigner Signature: Date (if applicable) Greg Phillips MD CC: PACEMAKER CHECK Observed: 05/27/2018 Status: F Source: [place] 9:22 AM [facility] REPOSITORY [facility] [address] [place] [address]. [address] [place] [address] Pacemaker Check Date of Service: 05/27/1846 MR#: [id number] Acct: [id number] Name: DAVID LOUIS Rep #: [id number] : 1940 From: Jeanne Quintero Age/Sex: 77/M Location: [facility] Status: Signed Billing Codes ILR Device Interrogate: Yes 05/27/18 0748 <Electronically signed by Jeanne Quintero > Date Jeanne Quintero 05/27/18 0922<Electronically signed by Greg Phillips MD> Cosignchirag Signature: Date (if applicable) Greg Phillips MD CC: PULMONARY VISIT REPORT Observed: 05/06/2018 Status: F Source: [place] 6:41 AM [facility] REPOSITORY [facility] [address] [place] [address] OFFICE VISIT Date of Service: 05/05/18 MR#: [id number] Acct: [id number] Name: DAVID LOUIS Rep #: [id number] : 1940 Provider: Fidel Malone D.O. Age/Sex: 77/M Location: [facility] Status: Signed Assessment AND Plan 1. NILO (obstructive sleep apnea) G47.33 Plan Although the patient has been compliant with use of nocturnal BiPAP therapy, he continues to experience a significant air leak and has a residual AHI noted to be 30 events per hour. At this time, I recommended that the patient be referred back to the sleep lab to undergo a re-titration polysomnogram. Orders Orders: 2. Morbid obesity E66.01 Plan Weight loss through dietary modification and a graded exercise regimen is strongly encouraged. Plan Detail Follow Up 6 Weeks ([facility]) HPI HPI Comments Details: The patient is a 77-year-old male who presents to the clinic today for a routine scheduled follow-up office visit. If you recall, the patient has a known history of mild restrictive lung disease and obstructive sleep apnea. He is currently prescribed nocturnal BiPAP therapy with a pressure support of 18/12 centimeters of water. Complete Pulmonary Function test were preformed on October 08, 2017, and showed FVC of 77 % of predicted, FEV1 of 85 % of predicted, FEV1/FVC ratio of 79 %, TLC of 80 % of predicted, RV of 79 % of predicted, DLCO 59% predicted. The test was interpreted to be consistent with a mild restrictive defect, and a symmetric reduction in diffusing capacity. Pulmonary stress test was completed on September 22, 2017, and did not show a drop in saturation below 89%, which confirms no current need for supplemental oxygen on exertion. The patient's nocturnal compliance report was personally reviewed at today's office visit. Over the last 30 days, he has demonstrated an overall compliance rate of 100%. He is currently utilizing his BiPAP on average 12.5 hours/day. He has a residual AHI noted to be 30 with significant air leaks noted. The patient currently utilizes [employer] as his DME provider and has been using a full facemask. While the patient does report some improvement, in terms of feeling more rested upon awakening in the morning, he does continue to report continued daytime sleepiness. His weight has gone up a bit since his last office visit. He denies fevers, chills or night sweats. Denies chest pain, dizziness or lightheadedness. Intake Vital Signs05/05/18 Height 6 ft 05/05/18 Weight: 375 lb Intake Visit Reasons: 3 M FU Accompanied by: Allergies MARGIE Inhibitors Allergy (Unknown, Verified 05/05/18 14:27) Unknown cefepime Allergy (Verified 05/05/18 14:27) Other ipodate [Ipodate] Allergy (Verified 05/05/18 14:27) Shortness of breath levofloxacin [Levofloxacin] Allergy (Verified 05/05/18 14:27) Anaphylaxis lisinopril Allergy (Verified 05/05/18 14:27) Shortness of breath ofloxacin Allergy (Verified 05/05/18 14:27) Unknown Quinolones Allergy (Verified 05/05/18 14:27) Anaphylaxis Medications Atorvastatin Calcium [Lipitor] 40 mg PO QHS 05/29/15 [History Confirmed 05/05/18] Citalopram [Celexa] 40 mg PO DAILY 05/29/15 [History Confirmed 05/05/18] Fluticasone 0.05% [Flonase Nasal [place]] 1 spray NASAL BID PRN 05/29/15 [History Confirmed 05/05/18] Tamsulosin HCl [Flomax] 0.8 mg PO DAILY 07/08/16 [History Confirmed 05/05/18] Losartan Potassium [Cozaar] 100 mg PO DAILY 07/24/17 [History Confirmed 05/05/18] Insulin Aspart [Novolog Flexpen] 13 units SC TIDAC #1 flexpen 08/11/17 [Rx Confirmed 05/05/18] albuterol sulfate 90 mcg/actuation breath activated powder inhaler 2 puff INHALATION Q4H PRN #1 ea 02/08/18 [Rx Confirmed 05/05/18] Aspirin E.C. [Ecotrin] 81 mg PO DAILY 03/11/18 [History Confirmed 05/05/18] Gabapentin [Neurontin] 300 mg PO 1700,2200 03/11/18 [History Confirmed 05/05/18] Insulin Detemir [Levemir FlexPen] 30 units SUBCUT BID 03/11/18 [History Confirmed 05/05/18] Isosorbide Mononitrate [Imdur] 30 mg PO DAILY 03/12/18 [History Confirmed 05/05/18] Apixaban [Eliquis] 5 mg PO BID #60 tab 03/15/18 [Rx Confirmed 05/05/18] [facility] Medical History 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) BPH (benign prostatic hyperplasia) (Chronic) Super obesity (Chronic) Cystitis (Resolved) Debility (Chronic) Noncompliance (Chronic) COPD (chronic obstructive pulmonary disease) (Chronic) Type II diabetes mellitus, uncontrolled (Chronic) History of depression (Chronic) History of other venous thrombosis and embolism (Chronic) HLD (hyperlipidemia) (Chronic) HTN (hypertension) (Chronic) NILO (obstructive sleep apnea) (Chronic) Chronic renal failure, stage 3 (moderate) (Chronic) Bifascicular bundle branch block (Chronic) Colon polyps (Chronic) Family history of colon cancer (Chronic) History of kidney stones (Resolved) MRSA (methicillin resistant staph aureus) culture positive (Resolved) Family History Father Colon cancer Mother Cancer Sister CAD (coronary artery disease) Social History Smoking Status: Former smoker Review of Systems Const CONSTITUTIONAL: Positive fatigue; negative anorexia, body ache, chills, daytime sleepiness, fever(s), night sweats, oral thrush, stops breathing during sleep, weight loss, sleeping in chair, weight loss, weight gain, frequent colds, seasonal allergies, other, headache(s) or orthopnea EETM Ear Nose Throat Mouth: Positive hearing normal; negative hard of hearing, hoarseness, dry mouth in morning, change in vision, itchy eyes, eye pain, swallowing Difficulty, ear pain, nose bleed, headache(s), mouth pain, nasal congestion, nasal discharge, post nasal drip, sinus pain, sinus pressure, sore throat or other Cardio Cardiovascular: Negative chest pain, chest pain at rest, chest pain with activity, irregular heart rhythm, edema, shortness of breath when lying down, palpitations, murmur or other Resp Respiratory: Positive as per HPI and shortness of breath shortness of breath: Positive with activity; negative pain with cough, wheezing, chest congestion, cough, chest tightness, pain on inspiration, inhalers, increase use of rescue inhalers, snoring, apnea or other Gastro Gastrointestional: Negative bloody stools, change in appetite, difficulty swallowing, reflux, hematemesis, melena stool, loose stool, constipation or other Genitourinary: Negative blood in urine, nocturia, pain with urination or other Musc Musculoskeletal: Negative body pain, back pain, neck pain or other Skin/Breast Skin/Breast: Negative dry skin, itching, rash, unusual bruising, breast lump or other Neuro Neurological: Negative restless legs, confusion, weakness or other Psych Psychocological: Negative abnormal sleep pattern, anxiety, thoughts of hurting self/others, hopelessness or other Lymph Lymphatic: Negative easy bleeding, easy bruising, swollen lymph nodes or other Exam Const Constitutional: Positive conversant, cooperative, in no acute respiratory distress, well developed, well nourished, poor hygiene and obese Head Head: Positive normocephalic and atraumatic; negative cyanosis of lips/distal nose Eyes Eye: Positive clear conjunctiva; negative nystagmus or scleral abnormality Ears Ear: Positive hearing normal and external ears normal; negative hard of hearing Nose Nose: Positive external nose normal; negative epistaxis Mouth Mouth: Positive oral mucosae normal and posterior oropharynx is adequate; negative no lesions or post nasal drip Mallampati Score: III: Mallampati Score Neck Neck: Positive normal visual inspection, trachea midline and male neck greater than 43 cm (17 in); negative lymphadenopathy Chest Wall Chest: Positive symmetric chest movement Normal AP diameter. Resp lung sounds: Positive clear to auscultation; negative wheezes, rhonchi or rales Cardio Cardiac: Positive regular rate, regular rhythm, S1 normal and S2 normal; negative rub, gallop or murmur GI GI: Positive normal bowel sounds and obese Soft without distention Genitourinary: Positive deferred Musc Musculoskeletal: Positive steady gait Skin Pulmonary Skin Exam: Positive intact; negative lesion, ulcers, dermal atrophy or rash Pulses Pulse: Yes Pedal pulses present: Extremities Extremities: No clubbing, No cyanosis, Yes edema, Yes stasis dermatitis Neuro Neurologic: Yes conversant, Yes no focal neuro deficits, Yes cooperative Lymph Lymphatic: No lymphadenopathy Psych Appearance: Positive grossly normal Mental Status: Positive mental status grossly normal Mood: Positive congruent mood Affect: Positive flat Coding Level of Care Code Off vis,est,level 3 Diagnoses NILO (obstructive sleep apnea) G47.33 Morbid obesity E66.01 05/06/18 0641 <Electronically signed by Fidel Malone DO> Date Fidel Malone DO Cosigner Signature: Date (if applicable) CC: Wili DensonOmarcamilo BOATENG Observed: 04/01/2018 Status: F Source: [place] CULTURE, URINE 2:57 PM [facility] REPOSITORY Urine Culture ORGANISM 1: Pseudomonas aeroginosa [place] Count >100,000 ORGANISM 2: Proteus mirabilis [place] Count 11,000-25,000 Pseudomonas aeroginosa: REACTION Cefepime $ 2 S Ceftazidime *NF 4 S Ciprofloxacin $ 1 S Gentamicin $ <=1 S Imipenem *NF <=0.25 S Levofloxacin $ 2 S Piperacillin/Tazobactam $$ 8 S Tobramycin $ <=1 S (NF) indicates non-formulary drug at [facility]. Approval by Infectious Disease Specialist required before non-formulary drugs may be ordered and/or dispensed. Proteus mirabilis: REACTION Amoxacillin/Clavulanic Acid $ <=2 S Ampicillin $ <=2 S Ampicillin/Sulbactam $ <=2 S Cefazolin $ <=4 S Cefepime $ <=1 S Ceftriaxone $ <=1 S Ciprofloxacin $ <=0.25 S Ertapenim $$$ <=0.5 S Gentamicin $ <=1 S Levofloxacin $ <=0.12 S Nitrofurantoin $ 128 R Piperacillin/Tazobactam $$ <=4 S Tobramycin $ <=1 S Trimethoprim/Sulfametho $ <=20 S (NF) indicates non-formulary drug at [facility]. Approval by Infectious Disease Specialist required before non-formulary drugs may be ordered and/or dispensed. Performed By: #### [id number] #### [facility] [address] [place], [address] PACEMAKER CHECK Observed: 03/31/2018 Status: F Source: [place] 3:24 PM [facility] REPOSITORY [facility] [address] [place] [address] Pacemaker Check Date of Service: 03/31/18 1500 MR#: [id number] Acct: [id number] Name: MARYDAVID Malena Rep #: [id number] : 1940 From: Jeanne Quintero Age/Sex: 77/M Location: [place] Status: Signed Billing Codes PM Device Codes: PM Dev Prog Eval, Dual 03/31/18 1507 <Electronically signed by Jeanne Quintero > Date Jeanne Quintero 03/31/18 1524<Electronically signed by Greg Phillips MD> Cosigner Signature: Date (if applicable) Greg Phillips MD CC: PACEMAKER CHECK Observed: 03/27/2018 Status: F Source: [place] 10:23 AM [facility] REPOSITORY [facility] [address] [place] [address] Pacemaker Check Date of Service: 03/23/18 1512 MR#: [id number] Acct: [id number] Name: LOUISDAVID CURRAN Rep #: [id number] : 1940 From: Jeanne Quintero Age/Sex: 77/M Location: [facility] Status: Signed Billing Codes ILR Device Interrogate: Yes 03/23/18 1515 <Electronically signed by Jeanne Quintero > Date Jeanne Quintero 03/27/18 1023<Electronically signed by Greg Phillips MD> Cosigner Signature: Date (if applicable) Greg Phillips MD CC: CARDIOLOGY VISIT Observed: 03/23/2018 Status: F Source: [place] REPORT 1:30 PM [facility] REPOSITORY [facility] [address] [place] [address] OFFICE VISIT Date of Service: 03/23/18 MR#: [id number] Acct: [id number] Name: DAVID LOUIS Rep #: [id number] : 1940 Provider: Greg Phillips MD Age/Sex: 77/M Location: [facility] Status: Signed HPI HPI Chief Complaint: Posthospitalization follow-up Details: DAVID LOUIS, is a 77 M who presents to the office today for a posthospitalization follow-up. He is a gentleman with a history of obesity, chronic venous embolism, pulmonary embolism, obstructive lung disease, presumed coronary artery disease, bifascicular block. He had presented to the hospital with apparent lightheadedness and a fall. He was evaluated in the hospital by the bass singer he was thought to have a bifascicular block and bradycardia and therefore may need a permanent pacemaker. His beta-zen was held and he had a stress echocardiogram performed demonstrated no evidence of ischemia and implantable loop recorder was placed without any significant abnormalities noted. He tells me that he has had 1 falls since then. He also complained of his heart racing on at least one occasion. He has not had his loop recorder interrogated yet. His physical exam demonstrates clear lung enrique regular rate and rhythm and no pedal edema. Intake Vital Signs03/23/18 Height 6 ft 03/23/18 Weight: 378 lb 03/23/18 Body Mass Index (BMI) 51.2 03/23/18 Blood Pressure 132/78 H H H 03/23/18 Blood Pressure Location Lt brachial Intake Visit Reasons: DC 03-15 (NEW to [facility]) Heel Cover Splitter Required: No Is patient in pain?: No Allergies MARGIE Inhibitors Allergy (Unknown, Verified 03/23/18 13:05) Unknown cefepime Allergy (Verified 03/23/18 13:05) Other ipodate [Ipodate] Allergy (Verified 03/23/18 13:05) Shortness of breath levofloxacin [Levofloxacin] Allergy (Verified 03/23/18 13:05) Anaphylaxis lisinopril Allergy (Verified 03/23/18 13:05) Shortness of breath ofloxacin Allergy (Verified 03/23/18 13:05) Unknown Quinolones Allergy (Verified 03/23/18 13:05) Anaphylaxis Medications Atorvastatin Calcium [Lipitor] 40 mg PO QHS 05/29/15 [History Confirmed 03/23/18] Citalopram [Celexa] 40 mg PO DAILY 05/29/15 [History Confirmed 03/23/18] Fluticasone 0.05% [Flonase Nasal [place]] 1 spray NASAL BID PRN 05/29/15 [History Confirmed 03/23/18] Tamsulosin HCl [Flomax] 0.8 mg PO DAILY 07/08/16 [History Confirmed 03/23/18] Losartan Potassium [Cozaar] 100 mg PO DAILY 07/24/17 [History Confirmed 03/23/18] Insulin Aspart [Novolog Flexpen] 13 units SC TIDAC #1 flexpen 08/11/17 [Rx Confirmed 03/23/18] albuterol sulfate 90 mcg/actuation breath activated powder inhaler 2 puff INHALATION Q4H PRN #1 ea 02/08/18 [Rx Confirmed 03/23/18] Aspirin E.C. [Ecotrin] 81 mg PO DAILY 03/11/18 [History Confirmed 03/23/18] Gabapentin [Neurontin] 300 mg PO 1700,2200 03/11/18 [History Confirmed 03/23/18] Insulin Detemir [Levemir FlexPen] 30 units SUBCUT BID 03/11/18 [History Confirmed 03/23/18] Isosorbide Mononitrate [Imdur] 30 mg PO DAILY 03/12/18 [History Confirmed 03/23/18] Apixaban [Eliquis] 5 mg PO BID #60 tab 03/15/18 [Rx Confirmed 03/23/18] Metoprolol Succinate 25 mg PO DAILY #30 tab.er.24h 03/15/18 [Rx Confirmed 03/23/18] [facility] Medical History Thromboembolism (Chronic) BPH (benign prostatic hyperplasia) (Chronic) Super obesity (Chronic) Cystitis (Resolved) Debility (Chronic) Noncompliance (Chronic) COPD (chronic obstructive pulmonary disease) (Chronic) Type II diabetes mellitus, uncontrolled (Chronic) History of depression (Chronic) History of other venous thrombosis and embolism (Chronic) HLD (hyperlipidemia) (Chronic) HTN (hypertension) (Chronic) NILO (obstructive sleep apnea) (Chronic) Chronic renal failure, stage 3 (moderate) (Chronic) Bifascicular bundle branch block (Chronic) Colon polyps (Chronic) Family history of colon cancer (Chronic) History of kidney stones (Resolved) MRSA (methicillin resistant staph aureus) culture positive (Resolved) Family History Father Colon cancer Mother Cancer Sister CAD (coronary artery disease) Social History Smoking Status: Former smoker ROS Const Const: Positive for weakness Eyes Eyes: Negative for blind spots, loss of peripheral vision, transient loss of vision, blurry vision, change in vision, double vision, floaters, tunnel vision or other ENT ENT: Positive for balance problems Cardio Chest Pain: No Resp Respiratory: Positive for SOB with activity and SOB at rest GI GI: Negative nausea, vomiting, heartburn, constipation, belching, bloating, cramping, vomiting blood/hematemesis, bright, red blood in stools, black,tarry stools, loose stools, Difficulty Swallowing or other : Negative for hematuria, frequent nighttime urination/ nocturia, erectile dysfunction or abnormal vaginal bleeding Musc Musc: Positive for balance problems Skin Skin: Negative redness, non-healing lesions, rash, unusual bruising, skin ulcer, wounds, jaundice or other Neuro Neuro: Positive for weakness; negative for blurry vision or double vision Allergy Allergy/Immunology: Negative for rash Cardiology Exam Const Appearance: cooperative, healthy appearing, well developed, well groomed and no acute distress Nutritional Appearance: well nourished and average body habitus Orientation: alert, awake and oriented x3 Head Head: normal to inspection, normocephalic and atraumatic Ears: hearing grossly normal bilaterally and external ears normal Nose: external nose normal, nasal mucous membranes and turbinates normal, nares normal, septum normal, no nasal discharge Face and Sinus: face symmetric Mouth: oral mucosae normal, tongue normal, oropharynx normal and moist mucous membranes Teeth and gingiva: dentition normal Throat: posterior oropharynx normal, tonsils normal and uvula midline Eyes General: appearance normal, both eyes and all related structures Eyelids: eyelids normal Conjunctivae: conjunctivae normal Pupils: PERRL, normal by confrontation and accommodation normal EOM: EOM intact bilaterally Neck Neck: normal visual inspection, trachea midline and no JVD JVD: +5 Carotids: normal carotid upstroke and bounding pulses Chest Chest inspection: normal inspection of the chest, symmetric chest movement and normal respiratory effort Auscultation: Bilateral: Clear to Auscultation Cardio Palpation: normal PMI Rate: regular rate Rhythm: regular rhythm Heart sounds: S1 normal, S2 normal and normal, physiologic split S2; negative rub, gallop or murmur GI GI: normal to inspection, soft, no hepatosplenomegaly and bowel sounds present Neuro General: alert, awake, oriented x3, no focal sensory deficit, gait normal and moves all extremities Skin Skin: no rashes or lesions noted Extremities Pulses: Normal: Right Femoral Pulse, Left Femoral Pulse, Right Dorsalis Pedis Pulse, Left Dorsalis Pedis Pulse, Right Posterior Tibial Pulse, Left Posterior Tibial Pulse, Right Radial Pulse, Left Radial Pulse Lower Extremity Edema: None: Bilateral Musculoskel Musculoskeletal: No joint tenderness Psych Psychological: normal affect Assessment AND Plan 1. Recurrent falls R29.6 Plan The etiology of the above is not entirely clear to us at this time I would recommend that we interrogate his loop recorder to see how he is doing and whether he has had any rhythm abnormalities noted. 2. Essential hypertension I10 Plan His blood pressure appears to be under good control on the current medical therapy. His losartan was continued at the same dose and his beta-zen was reduced. 3. Bifascicular bundle branch block I45.2 Plan He does have a history of bifascicular block and this will be evaluated as we interrogate his implantable loop recorder. This would make sure that he has not had any significant pauses accounting for any of his falls. 4. Coronary artery disease involving [place] coronary artery of alt[place] heart without angina pectoris I25.10 Plan He does have a history of presumed coronary artery disease he did undergo debridement stress echocardiogram which did not demonstrate any wall motion abnormalities or suggestion of ischemia. We will therefore continue him on the same medications without any changes. 5. Pure hypercholesterolemia E78.00; E78.0 Plan He does have a history of hyperlipidemia and remains on high intensity statin. Routine lipid profiles will be obtained. Thank you for allowing me to participate in the care of your patient. Please don't hesitate to call if any issues arise Plan Detail Follow Up 6 Months (jhr) Coding Level of Care Code Off vis,est,level 4 Diagnoses Recurrent falls R29.6 Essential hypertension I10 Hypertension type: essential hypertension Bifascicular bundle branch block I45.2 Coronary artery disease involving alturas coronary artery of alturas heart without angina pectoris I25.10 Coronary Disease-Associated Artery/Lesion type: alturas artery [place] vs. transplanted heart: alturas heart Associated angina: without angina Pure hypercholesterolemia E78.00; E78.0 Hyperlipidemia type: pure hypercholesterolemia Coding Level of Care Code Off vis,est,level 4 Diagnoses Recurrent falls R29.6 Essential hypertension I10 Hypertension type: essential hypertension Bifascicular bundle branch block I45.2 Coronary artery disease involving alturas coronary artery of alturas heart without angina pectoris I25.10 Coronary Disease-Associated Artery/Lesion type: alt[place] artery [place] vs. transplanted heart: alturas heart Associated angina: without angina Pure hypercholesterolemia E78.00; E78.0 Hyperlipidemia type: pure hypercholesterolemia 03/23/18 1330 <Electronically signed by Greg Phillips MD> Date Greg Phillips MD Cosigner Signature: Date (if applicable) CC: Wili Nelson DO 12 LEAD ELECTROCARDIOGRAM Observed: 03/19/2018 Status: F Source: [place] 2:41 PM [facility] Cardiovascular Services [address] [place] [address] 12 Lead EKG 03/11/18 194 MR#: [id number] Acct: [id number] Name: DAVID LOUIS Rep #: [id number] : 1940 77 From: Ady Cabello MD Attending Dr: Duncan Paris MD Status: DIS IN Ordering Dr: Duncan Paris MD Date: 03/11/18 Location: [facility] Sex: M C Admitted: 03/11/18 Test Reason : RHYTHM CHANGE Blood Pressure : / mmHG Vent. Rate : 043 BPM Atrial Rate : 043 BPM P-R Int : 254 ms QRS Dur : 158 ms QT Int : 518 ms P-R-T Axes : 079 -44 007 degrees QTc Int : 437 ms Marked sinus bradycardia with 1st degree A-V block Left axis deviation Right bundle branch block Possible Lateral infarct (cited on or before 05-NOV-2017) Confirmed by AI RAZO, ADY ([id number]), material expeditor RONEL NAVAS ([id number]) on 03/19/2018 2:40:50 PM Referred By: WELLINGTON Confirmed By:ADY CABELLO MD 03/19/18 1440 Date Ady Cabello MD CC: Wili Nelson DO; Duncan Paris MD Signed 12 LEAD ELECTROCARDIOGRAM Observed: 03/19/2018 Status: F Source: [place] 2:40 PM [facility] Cardiovascular Services [address] [place] [address] 12 Lead EKG 03/12/18 0458 MR#: [id number] Acct: [id number] Name: DAVID LOUIS Rep #: [id number] : 1940 77 From: Ady Cabello MD Attending Dr: Duncan Paris MD Status: DIS IN Ordering Dr: Duncan Paris MD Date: 03/12/18 Location: [facility] Sex: M C Admitted: 03/11/18 Test Reason : AM EKG Blood Pressure : / mmHG Vent. Rate : 050 BPM Atrial Rate : 050 BPM P-R Int : 274 ms QRS Dur : 158 ms QT Int : 502 ms P-R-T Axes : 046 -46 009 degrees QTc Int : 457 ms Sinus bradycardia with sinus arrhythmia with 1st degree A- V block Right bundle branch block Left anterior fascicular block Bifascicular block Confirmed by ADY CABELLO MD ([id number]), material expeditor RONEL NAVAS ([id number]) on 03/19/2018 2:40:21 PM Referred By: WELLINGTON Confirmed By:ADY CABELLO MD 03/19/18 1440 Date Ady Cabello MD CC: Wili Nelson DO; Duncan Paris MD Signed 12 LEAD ELECTROCARDIOGRAM Observed: 03/19/2018 Status: F Source: [place] 2:39 PM [facility] Cardiovascular Services [address] [place] [address] 12 Lead EKG 03/13/18 0521 MR#: [id number] Acct: [id number] Name: DAVID LOUIS Rep #: [id number] : 1940 77 From: Ady Cabello MD Attending Dr: Duncan Paris MD Status: DIS IN Ordering Dr: Duncan Paris MD Date: 03/12/18 Location: [facility] Sex: M C Admitted: 03/11/18 Test Reason : AM EKG Blood Pressure : / mmHG Vent. Rate : 069 BPM Atrial Rate : 069 BPM P-R Int : 304 ms QRS Dur : 094 ms QT Int : 438 ms P-R-T Axes : 000 -46 023 degrees QTc Int : 469 ms Sinus rhythm with 1st degree A-V block Left axis deviation Low voltage QRS Inferior infarct , age undetermined Abnormal ECG Confirmed by ADY CABELLO MD ([id number]), material expeditor RONEL NAVAS ([id number]) on 03/19/2018 2:39:20 PM Referred By: WELLINGTON Confirmed By:ADY CABELLO MD 03/19/18 1439 Date Ady Cabello MD CC: Wili Song Wellington MD Signed 12 LEAD ELECTROCARDIOGRAM Observed: 03/19/2018 Status: F Source: [place] 2:36 PM [facility] Cardiovascular Services [address] [place] [address] 12 Lead EKG 03/15/18 0512 MR#: [id number] Acct: [id number] Name: DAVID LOUIS Rep #: [id number] : 1940 77 From: Ady Cabello MD Attending Dr: Duncan Paris MD Status: DIS IN Ordering Dr: Duncan Paris MD Date: 03/15/18 Location: [facility] Sex: M C Admitted: 03/11/18 Test Reason : AM Blood Pressure : / mmHG Vent. Rate : 068 BPM Atrial Rate : 068 BPM P-R Int : 250 ms QRS Dur : 156 ms QT Int : 466 ms P-R-T Axes : 090 -44 012 degrees QTc Int : 495 ms Sinus rhythm with 1st degree A-V block Left axis deviation Right bundle branch block Septal infarct , age undetermined Inferior infarct , age undetermined Abnormal ECG When compared with ECG of 13-MAR-2018 05:21, MANUAL COMPARISON REQUIRED, DATA IS UNCONFIRMED Confirmed by AI RAZO, ADY ([id number]), material expeditor RONEL NAVAS ([id number]) on 03/19/2018 2:36:05 PM Referred By: WELLINGTON Confirmed By:ADY CABELLO MD 03/19/18 1436 Date Ady Cabello MD CC: Wili Nelson DO; Duncan Paris MD Signed 12 LEAD ELECTROCARDIOGRAM Observed: 03/17/2018 Status: F Source: [place] 9:14 AM [facility] Cardiovascular Services [address] [place] [address] 12 Lead EKG 03/11/18 1714 MR#: [id number] Acct: [id number] Name: DAVID LOUIS Rep #: [id number] : 1940 77 From: Greg Phillips MD Attending Dr: Duncan Paris MD Status: DIS IN Ordering Dr: Burton Arroyo MD Date: 03/11/18 Location: [facility] Sex: M C Admitted: 03/11/18 Test Reason : FALL Blood Pressure : / mmHG Vent. Rate : 042 BPM Atrial Rate : 042 BPM P-R Int : 230 ms QRS Dur : 156 ms QT Int : 496 ms P-R-T Axes : 075 -48 009 degrees QTc Int : 414 ms Marked sinus bradycardia with 1st degree A-V block Right bundle branch block Left anterior fascicular block Bifascicular block Cannot rule out Inferior infarct (cited on or before 26-JUL-2017) Confirmed by GREG PHILLIPS MD ([id number]), material expeditor RONEL NAVAS ([id number]) on 03/17/2018 9:14:23 AM Referred By: NARESH Confirmed By:GREG PHILLIPS MD 03/17/18 0914 Date rGeg Phillips MD CC: Wili Nelson DO; Burton Arroyo; Duncan Paris MD Signed STRESS TEST ECHO W/ Observed: 03/15/2018 Status: F Source: [place] CONTRAST 6:03 PM [facility] Cardiovascular Services [address] [place] [address] Stress Test Echo W/Contrast MR#: [id number] Acct: [id number] Name: DAVID LOUIS Rep #: [id number] : 1940 77 From: Greg Phillips MD Primary Care: Wili Nelson DO Status: DIS IN Ordering Dr: Greg Phillips MD Sex: M C Reason For Study: Arrhythmia Stress Results Protocol: Dobutamine Stress Echo Maximum Predicted HR: 143 bpm Target HR: 122 bpm% Maximum Pre dicted HR: 85 % DurationHeart Rate Stage (mm:ss) (bpm) BPCom ment Baseline 63 164/87 No Chest Pain; Definity 1 ML Given DSE 10 MCG 3:30 81 140/72No Chest Pain DSE 20 MCG 5:49 12 1 137/59No Chest Pain Recovery 88 143/58 No Chest Pain Stress Duration: 9:19 mm:ss Maximum Stress HR: 121 bpmM ETS: 1 Baseline Echocardiogram Findings Stress Echo Wall motion Data Resting WMIntermediate WMStress WM Resting Wall Motion Wall Motion Stress No regional wall motion No regional wall motion abnormalities noted. abnormalities noted. Ejection Fraction 55 %. Ejection Fraction 70 %. Stress Results The patient did not exhibit any symptoms during drug infusion. Drug infusion was stopped due to achievement of target heart rate. Interpretation Summary Dobutamine stress echocardiogram. Resting EKG demonstrates sinus rhythm with rate of 64 bpm. First-degree AV block is noted right bundle branch block is present in the left foot axis is present. Dobutamine was infused starting at 10 mcg/kg/min and increasing to 20 mcg/kg/min. The maximum heart rate attained was noted to be 162 bpm which was 113% of maximum predicted heart rate. The maximum workload was 1 metabolic equivalent. The patient maintained sinus rhythm throughout the test with a right bundle branch block. Occasional premature ventricular complex was noted. There were no ST or T-wave changes noted suggest ischemia. The resting blood pressure was noted to be 164/87 with a final blood pressure 143/58. Stress echocardiographic images. Stress echocardiographic images were obtained with and without Definity. The resting ejection fraction was noted to be 55-60% and at peak dobutamine infusion the ejection fraction was noted to be 65%. No wall motion abnormalities were noted to suggest ischemia. No clinical angina was noted. Conclusion: Normal dobutamine stress echocardiographic imaging with no evidence of ischemia. Ordering Physician: Greg Phillips Referring Physician: Greg Phillips Performed By: Ayala Flood, RDCS, RVT 03/15/18 1805 Date Greg Phillips MD CC: Greg Phillips MD; Wili Nelson DO; Duncan Paris MD Date Dictated: 03/15/18 1135 Date Transcribed: 03/15/18 1802 Lighting Engineer: Signed BEDSIDE GLUCOSE Collected: 03/15/2018 Status: F Source: [place] 4:51 PM [facility] TYPE CODE TESTS RESULT OUT OF REFERENCE UNITS RANGE LAB L501.080 70-110 mg/dL High BEDSIDE GLU 179 Result Comment: MANAGEMENT OF PATIENT CARE PER NURSING PROTOCOL Performed By: #### L501.080 #### [facility] Point of Care [address] [place] [address] DISCHARGE SUMMARY Observed: 03/15/2018 Status: F Source: [place] 4:22 PM [facility] Medical Records Department [address] [place] [address] Discharge Summary 03/15/18 1355 MR#: [id number] Acct: [id number] Name: DAVID LOUIS Rep #: [id number] : 1940 77 From: Rolan HI PCP: Wili Nelson DO Status: ADM IN Y Location: [place] [address] ADDENDUM by KOLTON Stiles on 03/15/18 at 1406 Code Visit Addendum : prior to DC blood pressure 160/100, norvasc 5mg PO qd added. 03/15/18 1407 <Electronically signed by Rolan HI> Date Rolan Stiles cc: KOLTON Stiles; Wili Nelson DO; Duncan Paris MD * Signed Addendum entered and electronically signed by KOLTON James 03/15/18 14:06: Code Visit Addendum : prior to DC blood pressure 160/100, norvasc 5mg PO qd added. Original Note: <Rolan Stiles - Last Filed: 03/15/18 14:06> Discharge Date and Diagnosis - Problem List Patient Problems: Active and Suspected Problems (Last Reviewed 02/08/18 @ 13:38 by BETTYE Aguilera) Symptomatic sinus bradycardia (Acute) Recurrent falls (Acute) Date of Admission: 03/11/18 Date of Discharge: 03/15/14 - Primary Discharge Diagnosis Active and Suspected Problems (Last Reviewed 02/08/18 @ 13:38 by BETTYE Aguilera) Symptomatic sinus bradycardia (Acute) Recurrent falls (Acute) CAD HTN NILO DMt2 Morbid obesity CKDIII Hx DVT PE BPH HLD COPD - Secondary Discharge Diagnosis Chronic Problems (Last Reviewed 02/08/18 @ 13:38 by BETTYE Aguilera) Thromboembolism (Chronic) BPH (benign prostatic hyperplasia) (Chronic) Super obesity (Chronic) Debility (Chronic) Noncompliance (Chronic) with CPAP and follow up and with diet COPD (chronic obstructive pulmonary disease) (Chronic) Type II diabetes mellitus, uncontrolled (Chronic) History of depression (Chronic) History of other venous thrombosis and embolism (Chronic) HLD (hyperlipidemia) (Chronic) HTN (hypertension) (Chronic) NILO (obstructive sleep apnea) (Chronic) Chronic renal failure, stage 3 (moderate) (Chronic) Bifascicular bundle branch block (Chronic) Colon polyps (Chronic) Family history of colon cancer (Chronic) Hospital Course and Treatment Imaging Results: 03/15/18 07:58 Stress Test Echo W/Contrast [ECHO] Routine Consults: Cardiology - Vin/Dorcas Operations: None Procedures: Stress test, - - loop recorder Summary of Care Provided: Physical exam on day of discharge: See daily progress note Hospital course: The patient is a 77 year old M with a hx of CAD, NILO, DMt2, COPD, morbid obesity, CKDIII, HLD, BPH who presented to the ER with c/o dizziness and collapse, without clear LOC. He was found to be bradycardic in the 40's with 1st degree AV block with response to atropine with pulse to 67. He was admitted to the PCU and his metoprolol was discontinued. Cardiology was consulted. His rate remained stable during his stay. Cardiology recommended possible pacemaker following Thursday. He had had some anginal symptoms prior so first a stress echo was obtained. This was negative for any ischemic process. Cardiology felt that with the discontinuation of his metoprolol and no further issues following that that he did not require pacemaker evaluation at this time. In order to better evaluate, a loop recorder was placed. They also recommended that he resume metoprolol but at a decreased dose. He was also noted that the patient had not been taking his Eliquis at home and this was ordered for him to restart at discharge. 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 Patient was discharged home in stable condition and will follow up with his PCP in 1-2 weeks as well as with cardiology in 1-2 weeks. This patient was seen by Rolan Stiles PA-C under the supervision of Doctor Paris. [] Discharge Diet: Low fat/ Low Cholesterol, 1800 Calorie Control Diet, 2000 mg Sodium Diet Discharge Activity: Return to Normal Activity Home Medications: Medications to take at Discharge Atorvastatin Calcium [Lipitor] 40 mg PO QHS 05/29/15 Citalopram [Celexa] 40 mg PO DAILY 05/29/15 Fluticasone 0.05% [Flonase Nasal [place]] 1 spray NASAL BID PRN 05/29/15 Tamsulosin HCl [Flomax] 0.8 mg PO DAILY 07/08/16 Losartan Potassium [Cozaar] 100 mg PO DAILY 07/24/17 Insulin Aspart [Novolog Flexpen] 13 units SC TIDAC #1 flexpen 08/11/17 albuterol sulfate 90 mcg/actuation breath activated powder inhaler 2 puff INHALATION Q4H PRN #1 ea 02/08/18 Aspirin E.C. [Ecotrin] 81 mg PO DAILY 03/11/18 Gabapentin [Neurontin] 300 mg PO 1700,2200 03/11/18 Insulin Detemir [Levemir FlexPen] 30 units SC BID 03/11/18 Isosorbide Mononitrate [Imdur] 30 mg PO DAILY 03/12/18 Apixaban [Eliquis] 5 mg PO BID #60 tab 03/15/18 Metoprolol Succinate 25 mg PO DAILY #30 tab.er.24h 03/15/18 Following Prescrptions Were Given to Patient: Apixaban [Eliquis] 5 mg PO BID #60 tab Metoprolol Succinate 25 mg PO DAILY #30 tab.er.24h Primary Care Physician: Wili Nelson DO [Primary Care Provider] - Please follow up with your Primary Care Physician in: 1-2 weeks Please Follow Up With: Greg Phillips MD When: 2 weeks Disposition: Home Minutes spent on discharge:: 35 Patient Condition:: Stable Medical Necessity - Tobacco Use Smoking Status: Former smoker Meaningful Use Info Meaningful Use Diagnoses (Choose all that apply): None applicable <Duncan Paris - Last Filed: 03/15/18 16:22> Discharge Date and Diagnosis - Primary Discharge Diagnosis Active and Suspected Problems (Last Reviewed 02/08/18 @ 13:38 by BETTYE Aguilera) Symptomatic sinus bradycardia (Acute) Recurrent falls (Acute) - Secondary Discharge Diagnosis Chronic Problems (Last Reviewed 02/08/18 @ 13:38 by BETTYE Aguilera) Thromboembolism (Chronic) BPH (benign prostatic hyperplasia) (Chronic) Super obesity (Chronic) Debility (Chronic) Noncompliance (Chronic) with CPAP and follow up and with diet COPD (chronic obstructive pulmonary disease) (Chronic) Type II diabetes mellitus, uncontrolled (Chronic) History of depression (Chronic) History of other venous thrombosis and embolism (Chronic) HLD (hyperlipidemia) (Chronic) HTN (hypertension) (Chronic) NILO (obstructive sleep apnea) (Chronic) Chronic renal failure, stage 3 (moderate) (Chronic) Bifascicular bundle branch block (Chronic) Colon polyps (Chronic) Family history of colon cancer (Chronic) Hospital Course and Treatment Imaging Results: 03/15/18 07:58 Stress Test Echo W/Contrast [ECHO] Routine Summary of Care Provided: This patient was seen in conjunction with Rolan HI. I have independently interviewed and examined the patient and reviewed pertinent history, examination findings, laboratory and plan of management. I have reviewed the note and agree with the documented findings with the few additional points. In brief, patient is admitted for syncope and collapse mostly secondary to bradycardia. Currently patient is asymptomatic. It was later learned that patient was on beta-zen which was held. Patient evaluated by bass singer and advised stress echo. Dobutamine stress echo does not show evidence of ischemia. Patient further had loop recorder. Shaft Repairer advised decrease the dose of metoprolol succinate 25 mg once daily. Patient blood pressure is elevated. Patient is on losartan 100 mg daily. Amlodipine 5 mg added. Continue Eliquis for history of DVT/PE. I have discussed my assessment with Rolan HI and orders have been reviewed. [] Discharge meds reconciliation done. Follow-up instructions given. Total time spent, exact 35 minutes on discharge meds reconciliation, examination, review of imaging and blood test and discussion with the patient on follow-up instructions. Code Visit Inpatient [place] M: [id number] Disch Hosp 03/15/18 1402 <Electronically signed by Rolan HI> Date Rolan HI Cosigner Signature (if applicable): Date CC: KOLTON Stiles; Wili Nelson DO; Duncan Paris MD Signed DISCHARGE INSTRUCTION Observed: 03/15/2018 Status: F Source: [place] 2:06 PM [facility] Medical Records Department [address] [place] [address] Instructions for Home/Discharge Instructions 03/15/18 1353 MR#: [id number] Acct: [id number] Name: DAVID LOUIS Rep #: [id number] : 1940 77 From: Rolan HI PCP: Wili Nelson DO Status: ADM IN ADDENDUM by KOLTON Stiles on 03/15/18 at 1406 added norvasc at dc 5mg PO daily Date Rolan Stiles cc: Wili Nelson DO; Ady Cabello MD * Signed - Discharge Diagnoses Current Active Problems: Current Active and Chronic Problems (Last Reviewed 02/08/18 @ 13:38 by BETTYE Aguilera) Symptomatic sinus bradycardia (Acute) Recurrent falls (Acute) You will use the following diet at home:: Calorie/Carbohydrate Controlled (specify 1200, 1400, etc) - 1800 kayla / day, Cardiac Your food should be the consistency of: Regular Your liquids should be the consistency of: Regular/Thin Discharge Activity: Return to Normal Activity Allergies/Adverse Reactions: Allergies MARGIE Inhibitors Allergy (Unknown, Verified 03/11/18 17:19) Unknown cefepime Allergy (Verified 03/11/18 17:19) Other WEAKNESS AND FALLING ipodate [Ipodate] Allergy (Verified 03/11/18 17:19) Shortness of breath levofloxacin [Levofloxacin] Allergy (Verified 03/11/18 17:19) Anaphylaxis lisinopril Allergy (Verified 03/11/18 17:19) Shortness of breath ofloxacin Allergy (Verified 03/11/18 17:19) Unknown Quinolones Allergy (Verified 03/11/18 17:19) Anaphylaxis Medications to take at Discharge Atorvastatin Calcium [Lipitor] 40 mg PO QHS 05/29/15 Citalopram [Celexa] 40 mg PO DAILY 05/29/15 Fluticasone 0.05% [Flonase Nasal [place]ampo] 1 spray NASAL BID PRN 05/29/15 Tamsulosin HCl [Flomax] 0.8 mg PO DAILY 07/08/16 Losartan Potassium [Cozaar] 100 mg PO DAILY 07/24/17 Insulin Aspart [Novolog Flexpen] 13 units SC TIDAC #1 flexpen 08/11/17 albuterol sulfate 90 mcg/actuation breath activated powder inhaler 2 puff INHALATION Q4H PRN #1 ea 02/08/18 Aspirin E.C. [Ecotrin] 81 mg PO DAILY 03/11/18 Gabapentin [Neurontin] 300 mg PO 1700,2200 03/11/18 Insulin Detemir [Levemir FlexPen] 30 units SC BID 03/11/18 Isosorbide Mononitrate [Imdur] 30 mg PO DAILY 03/12/18 Apixaban [Eliquis] 5 mg PO BID #60 tab 03/15/18 Metoprolol Succinate 25 mg PO DAILY #30 tab.er.24h 03/15/18 The following prescriptions were given: Apixaban [Eliquis] 5 mg PO BID #60 tab Metoprolol Succinate 25 mg PO DAILY #30 tab.er.24h Primary Care Physician: Wili Nelson DO [Primary Care Provider] - Please follow up with your Primary Care Physician in: 1-2 weeks Test Results: Test results from this visit will be discussed in further detail at your follow-up appointment, if applicable. Please Follow Up With: Greg Phillips MD When: 2 weeks Proposed Discharge Date: 03/15/18 03/15/18 1355 <Electronically signed by Rolan HI> Date Rolan HI CC: Wili Nelson DO; Ady Cabello MD BEDSIDE GLUCOSE Collected: 03/15/2018 Status: F Source: [place] 10:52 AM [facility] REPOS[facility]ORY TYPE CODE TESTS RESULT OUT OF REFERENCE UNITS RANGE LAB L501.080 70-110 mg/dL High BEDSIDE GLU 154 Result Comment: MANAGEMENT OF PATIENT CARE PER NURSING PROTOCOL Performed By: #### L501.080 #### [facility] Point of Care [address] [place], [place] [address] BEDSIDE GLUCOSE Collected: 03/15/2018 Status: F Source: [place] 6:59 AM [facility] REPOS[facility]ORY TYPE CODE TESTS RESULT OUT OF REFERENCE UNITS RANGE LAB L501.080 70-110 mg/dL High BEDSIDE GLU 136 Result Comment: MANAGEMENT OF PATIENT CARE PER NURSING PROTOCOL Performed By: #### L501.080 #### [facility] Point of Care [address] [place] [address] CBC-COMPLETE BLOOD CNT Collected: 03/15/2018 Status: F Source: [place] NO DIFF 5:05 AM [facility] REPOS[facility]ORY TYPE CODE TESTS RESULT OUT OF RANGE REFERENCE UNITS LAB L100.1000 4.4-11.0 K/mm3 Normal WBC 6.0 LAB L100.1200 4.6-6.2 M/mm3 Low RBC 4.22 LAB L100.1300 13.0-16.5 g/dl Low HGB 12.1 LAB L100.1400 40-54 % Low HCT 37.2 LAB L100.1500 80-94 fL Normal MCV 88.2 LAB L100.1600 27.0-32.0 pg Normal MCH 28.7 LAB L100.1700 32-36 g/gl Normal MCHC 32.5 LAB L100.1810 11.6-14.6 % Normal RDW CV 13.1 LAB L100.1820 35.1-43.9 fl Normal RDW SD 41.5 LAB L100.1900 150-450 K/mm3 Normal PLT 212 LAB L100.2000 6.2-12.0 fl Normal MPV 10.2 Performed By: #### L100.0500 #### [facility] [address] [place], [address] PROTHROMBIN TIME W/INR Collected: 03/15/2018 Status: F Source: [place] 5:05 AM [facility] REPOSITORY TYPE CODE TESTS RESULT OUT OF RANGE REFERENCE UNITS LAB L300.4150 11.7-14.9 SECONDS Normal PROTIME 14.8 LAB L300.4200 Normal INR 1.2 Performed By: #### L300.3900, L300.4310 #### [facility] [address] [facility], [address] PARTIAL THROMBOPLAST Collected: 03/15/2018 Status: F Source: [place] TIME 5:05 AM [facility] REPOSITORY TYPE CODE TESTS RESULT OUT OF REFERENCE UNITS RANGE LAB L300.4310 24.1-36.2 Seconds High PTT 73.3 Performed By: #### L300.3900, L300.4310 #### [facility] [address] [place] [place], [address] BASIC METABOLIC Collected: 03/15/2018 Status: F Source: [place] PROFILE (BMP) 5:05 AM [facility] REPOSITORY TYPE CODE TESTS RESULT OUT OF RANGE REFERENCE UNITS LAB L501.0100 74-106 mg/dL High GLU 137 Result Comment: Fasting Glucose result greater than or equal to 126 mg/dL suggests DIABETES MELLITUS per A.D.A. criteria. Please note revised GLUCOSE reference range effective 2017. LAB L501.1000 7-18 mg/dL High BUN 20 LAB L501.1100 0.70-1.30 mg/dL High CREAT,SERUM 1.78 Result Comment: The validity of the calculated GFR AND GFRAA in patients over 70 years has not been determined. Clinical correlation is essential. LAB L501.1110 >60 mL/min Low EST GFR 40 Result Comment: Non- GFR Calc LAB L501.1115 >60 mL/min Low EST GFR - AA 48 Result Comment: GFR Calc LAB L501.1255 ml/min Normal Estimated CRCL 38.15 LAB L501.1300 10-20 RATIO Normal BUN/CRE 11.2 LAB L501.2200 8.5-10 mg/dL Normal .1 CA 8.8 LAB L501.5300 136-14 mmol/L Normal 5 NA 140 LAB L501.5600 3.5-5. mmol/L Normal 1 K 4.2 LAB L501.5900 98-107 mmol/L Normal CL 104 LAB L501.6100 21.0-3 mmol/L Normal 2.0 CO2 32.0 LAB L501.6200 5-15 Low GAP 4 Performed By: #### L500.2500 #### [facility] [address] [place], [address] BEDSIDE GLUCOSE Collected: 03/14/2018 Status: F Source: PATRICIA 9:16 PM [facility] REPOSITORY TYPE CODE TESTS RESULT OUT OF REFERENCE UNITS RANGE LAB L501.080 70-110 mg/dL High BEDSIDE GLU 201 Result Comment: MANAGEMENT OF PATIENT CARE PER NURSING PROTOCOL Performed By: #### L501.080 #### [facility] Point of Care [address] [place], [place] [address] PARTIAL THROMBOPLAST Collected: 03/14/2018 Status: F Source: [place] TIME 8:30 PM [facility] REPOSITORY TYPE CODE TESTS RESULT OUT OF REFERENCE UNITS RANGE LAB L300.4310 24.1-36.2 Seconds High PTT 63.3 Performed By: #### L300.4310 #### [facility] [address] [facility] [place], [address] BEDSIDE GLUCOSE Collected: 03/14/2018 Status: F Source: PATRICIA 4:48 PM [facility] REPOSITORY TYPE CODE TESTS RESULT OUT OF REFERENCE UNITS RANGE LAB L501.080 70-110 mg/dL High BEDSIDE GLU 198 Result Comment: MANAGEMENT OF PATIENT CARE PER NURSING PROTOCOL Performed By: #### L501.080 #### [facility] Point of Care [address] [place] [address] PARTIAL THROMBOPLAST Collected: 03/14/2018 Status: F Source: [place] TIME 1:05 PM [facility] REPOSITORY TYPE CODE TESTS RESULT OUT OF REFERENCE UNITS RANGE LAB L300.4310 24.1-36.2 Seconds High PTT 67.2 Performed By: #### L300.4310 #### [facility] [address] [place], [address] M R STAPH AUREUS Collected: 03/14/2018 Status: F Source: [place] DNA BY PCR 12:00 PM [facility] REPOSITORY TYPE CODE TESTS RESULT OUT OF REFERENCE UNITS RANGE LAB L8200.1100 Negative High MRSA POSITIVE RESULT Performed By: #### L8200.1000 #### [facility] [address] [place], [address] BEDSIDE GLUCOSE Collected: 03/14/2018 Status: F Source: [place] 11:55 AM [facility] REPOSITORY TYPE CODE TESTS RESULT OUT OF REFERENCE UNITS RANGE LAB L501.080 70-110 mg/dL High BEDSIDE GLU 206 Result Comment: MANAGEMENT OF PATIENT CARE PER NURSING PROTOCOL Performed By: #### L501.080 #### [facility] Point of Care [address] [facility] [address] BEDSIDE GLUCOSE Collected: 03/14/2018 Status: F Source: [place] 6:46 AM [facility] REPOSITORY TYPE CODE TESTS RESULT OUT OF REFERENCE UNITS RANGE LAB L501.080 70-110 mg/dL High BEDSIDE GLU 121 Result Comment: MANAGEMENT OF PATIENT CARE PER NURSING PROTOCOL Performed By: #### L501.080 #### [facility] Point of Care [address] [place] [address] CBC W/DIFF, AUTOMATED Collected: 03/14/2018 Status: F Source: PATR[place] 4:10 AM [facility] REPOSITORY TYPE CODE TESTS RESULT OUT OF RANGE REFERENCE UNITS LAB L100.1000 4.4-11.0 K/mm3 Normal WBC 6.5 LAB L100.1200 4.6-6.2 M/mm3 Low RBC 4.44 LAB L100.1300 13.0-16.5 g/dl Low HGB 12.8 LAB L100.1400 40-54 % Low HCT 38.9 LAB L100.1500 80-94 fL Normal MCV 87.6 LAB L100.1600 27.0-32.0 pg Normal MCH 28.8 LAB L100.1700 32-36 g/gl Normal MCHC 32.9 LAB L100.1810 11.6-14.6 % Normal RDW CV 13.0 LAB L100.1820 35.1-43.9 fl Normal RDW SD 40.5 LAB L100.1900 150-450 K/mm3 Normal PLT 206 LAB L100.2000 6.2-12.0 fl Normal MPV 9.6 LAB L100.2100 47-70 % Normal NEUT% 64.3 LAB L100.2200 19-41 % Normal LY% 19.6 LAB L100.2300 0-10 % High MONO% 10.3 LAB L100.2400 0-5 % High EO% 5.1 LAB L100.2500 0-1 % Normal BASO% 0.5 LAB L100.2550 0.0-0.9 % Normal IM GRAN % 0.200 Result Comment: IG% - Immature Granulocytes (promyelocytes, myelocytes and metamyelocytes) > 1% indicates that a LEFT SHIFT is Present. LAB L100.2620 2.0-7.7 X10 3/uL Normal Absolute Neut 4.2 LAB L100.2720 0.83-4.51 X10 3/ul Normal Absolute Lymph 1.27 Performed By: #### L100.0100 #### [facility] [address] [facility]. [place], [place], [id number] PARTIAL THROMBOPLAST Collected: 03/14/2018 Status: F Source: PATR[place] TIME 4:10 AM [facility] REPOSITORY TYPE CODE TESTS RESULT OUT OF REFERENCE UNITS RANGE LAB L300.4310 24.1-36.2 Seconds High PTT 81.4 Performed By: #### L300.4310 #### [facility] [address] [place], [place], [address] BASIC METABOLIC Collected: 03/14/2018 Status: F Source: [place] PROFILE (BMP) 4:10 AM [facility] REPOSITORY TYPE CODE TESTS RESULT OUT OF RANGE REFERENCE UNITS LAB L501.0100 74-106 mg/dL High GLU 110 Result Comment: Fasting Glucose result from 100 to 125 mg/dL suggests IMPAIRED HOMEOSTASIS per A.D.A. criteria. Please note revised GLUCOSE reference range effective 2017. LAB L501.1000 7-18 mg/dL High BUN 19 LAB L501.1100 0.70-1.30 mg/dL High CREAT,SERUM 1.59 Result Comment: The validity of the calculated GFR AND GFRAA in patients over 70 years has not been determined. Clinical correlation is essential. LAB L501.1110 >60 mL/min Low EST GFR 45 Result Comment: Non- GFR Calc LAB L501.1115 >60 mL/min Low EST GFR - AA 55 Result Comment: GFR Calc LAB L501.1255 ml/min Normal Estimated CRCL 42.70 LAB L501.1300 10-20 RATIO Normal BUN/CRE 11.9 LAB L501.2200 8.5-10 mg/dL Normal .1 CA 9.0 LAB L501.5300 136-14 mmol/L Normal 5 NA 140 LAB L501.5600 3.5-5. mmol/L Normal 1 K 4.1 LAB L501.5900 98-107 mmol/L Normal CL 105 LAB L501.6100 21.0-3 mmol/L Normal 2.0 CO2 26.0 LAB L501.6200 5-15 Normal GAP 9 Performed By: #### L500.2500 #### [facility] [address] [facility]. [place], [place], [id number] BEDSIDE GLUCOSE Collected: 03/13/2018 Status: F Source: PATRICIA 9:09 PM [facility] REPOSITORY TYPE CODE TESTS RESULT OUT OF REFERENCE UNITS RANGE LAB L501.080 70-110 mg/dL High BEDSIDE GLU 169 Result Comment: MANAGEMENT OF PATIENT CARE PER NURSING PROTOCOL Performed By: #### L501.080 #### [facility] Point of Care [address] [facility]. [place], [place] [address] PARTIAL THROMBOPLAST Collected: 03/13/2018 Status: F Source: [place] TIME 8:00 PM [facility] REPOSITORY TYPE CODE TESTS RESULT OUT OF REFERENCE UNITS RANGE LAB L300.4310 24.1-36.2 Seconds High PTT 76.6 Performed By: #### L300.4310 #### [facility] [address] [place], [place], [address] BEDSIDE GLUCOSE Collected: 03/13/2018 Status: F Source: PATRICIA 4:58 PM [facility] REPOSITORY TYPE CODE TESTS RESULT OUT OF REFERENCE UNITS RANGE LAB L501.080 70-110 mg/dL High BEDSIDE GLU 215 Result Comment: MANAGEMENT OF PATIENT CARE PER NURSING PROTOCOL Performed By: #### L501.080 #### [facility] Point of Care [address] [place], [place] [id number] PARTIAL THROMBOPLAST Collected: 03/13/2018 Status: F Source: [place] TIME 1:02 PM [facility] REPOSITORY TYPE CODE TESTS RESULT OUT OF REFERENCE UNITS RANGE LAB L300.4310 24.1-36.2 Seconds High PTT 67.7 Performed By: #### L300.4310 #### [facility] [address] [place], [place], [address] BEDSIDE GLUCOSE Collected: 03/13/2018 Status: F Source: PATRIC[place] 11:41 AM [facility] REPOSITORY TYPE CODE TESTS RESULT OUT OF REFERENCE UNITS RANGE LAB L501.080 70-110 mg/dL High BEDSIDE GLU 240 Result Comment: MANAGEMENT OF PATIENT CARE PER NURSING PROTOCOL Performed By: #### L501.080 #### [facility] Point of Care [address] [place], [place] [address] PARTIAL THROMBOPLAST Collected: 03/13/2018 Status: F Source: [place] TIME 9:06 AM [facility] REPOSITORY TYPE CODE TESTS RESULT OUT OF REFERENCE UNITS RANGE LAB L300.4310 24.1-36.2 Seconds High PTT 74.7 Performed By: #### L300.4310 #### [facility] [address] [place], [place], [address] BEDSIDE GLUCOSE Collected: 03/13/2018 Status: F Source: PATRICIA 6:52 AM [facility] REPOSITORY TYPE CODE TESTS RESULT OUT OF REFERENCE UNITS RANGE LAB L501.080 70-110 mg/dL High BEDSIDE GLU 142 Result Comment: MANAGEMENT OF PATIENT CARE PER NURSING PROTOCOL Performed By: #### L501.080 #### [facility] Point of Care [address] [place], [place] [address] CBC W/DIFF, AUTOMATED Collected: 03/13/2018 Status: F Source: [place] 3:17 AM [facility] REPOSITORY TYPE CODE TESTS RESULT OUT OF RANGE REFERENCE UNITS LAB L100.1000 4.4-11.0 K/mm3 Normal WBC 6.0 LAB L100.1200 4.6-6.2 M/mm3 Low RBC 4.08 LAB L100.1300 13.0-16.5 g/dl Low HGB 11.5 LAB L100.1400 40-54 % Low HCT 36.2 LAB L100.1500 80-94 fL Normal MCV 88.7 LAB L100.1600 27.0-32.0 pg Normal MCH 28.2 LAB L100.1700 32-36 g/gl Low MCHC 31.8 LAB L100.1810 11.6-14.6 % Normal RDW CV 13.3 LAB L100.1820 35.1-43.9 fl Normal RDW SD 43.2 LAB L100.1900 150-450 K/mm3 Normal PLT 157 LAB L100.2000 6.2-12.0 fl Normal MPV 9.3 LAB L100.2100 47-70 % Normal NEUT% 63.9 LAB L100.2200 19-41 % Normal LY% 23.8 LAB L100.2300 0-10 % Normal MONO% 7.3 LAB L100.2400 0-5 % Normal EO% 4.3 LAB L100.2500 0-1 % Normal BASO% 0.5 LAB L100.2550 0.0-0.9 % Normal IM GRAN % 0.200 Result Comment: IG% - Immature Granulocytes (promyelocytes, myelocytes and metamyelocytes) > 1% indicates that a LEFT SHIFT is Present. LAB L100.2620 2.0-7.7 X10 3/uL Normal Absolute Neut 3.9 LAB L100.2720 0.83-4.51 X10 3/ul Normal Absolute Lymph 1.44 Performed By: #### L100.0100 #### [facility] [address] [place], [address] PARTIAL THROMBOPLAST Collected: 03/13/2018 Status: F Source: [place] TIME 3:17 AM [facility] REPOSITORY TYPE CODE TESTS RESULT OUT OF REFERENCE UNITS RANGE LAB L300.4310 24.1-36.2 Seconds High alert PTT 98.6 Result Comment: CRITICAL VALUE VERIFIED. CALLED TO TIERRA CARNEY 03/13/18 0348 Keyla Franklin. RESULTS READ BACK BY SAME . Performed By: #### L300.4310 #### [facility] [address] [place], [address] BASIC METABOLIC Collected: 03/13/2018 Status: F Source: [place] PROFILE (BMP) 3:17 AM [facility] REPOSITORY TYPE CODE TESTS RESULT OUT OF RANGE REFERENCE UNITS LAB L501.0100 74-106 mg/dL High GLU 122 Result Comment: Fasting Glucose result from 100 to 125 mg/dL suggests IMPAIRED HOMEOSTASIS per A.D.A. criteria. Please note revised GLUCOSE reference range effective 2017. LAB L501.1000 7-18 mg/dL High BUN 22 LAB L501.1100 0.70-1.30 mg/dL High CREAT,SERUM 1.66 Result Comment: The validity of the calculated GFR AND GFRAA in patients over 70 years has not been determined. Clinical correlation is essential. LAB L501.1110 >60 mL/min Low EST GFR 43 Result Comment: Non- GFR Calc LAB L501.1115 >60 mL/min Low EST GFR - AA 52 Result Comment: GFR Calc LAB L501.1255 ml/min Normal Estimated CRCL 40.90 LAB L501.1300 10-20 RATIO Normal BUN/CRE 13.3 LAB L501.2200 8.5-10 mg/dL Low .1 CA 8.1 LAB L501.5300 136-14 mmol/L Normal 5 NA 139 LAB L501.5600 3.5-5. mmol/L Normal 1 K 4.1 LAB L501.5900 98-107 mmol/L High CL 109 LAB L501.6100 21.0-3 mmol/L Normal 2.0 CO2 23.0 LAB L501.6200 5-15 Normal GAP 7 Performed By: #### L500.2500 #### [facility] [address] [place], [address] BEDSIDE GLUCOSE Collected: 03/12/2018 Status: F Source: PATR[place] 9:06 PM [facility] REPOSITORY TYPE CODE TESTS RESULT OUT OF REFERENCE UNITS RANGE LAB L501.080 70-110 mg/dL High BEDSIDE GLU 173 Result Comment: MANAGEMENT OF PATIENT CARE PER NURSING PROTOCOL Performed By: #### L501.080 #### [facility] Point of Care [address] [place] [address] BEDSIDE GLUCOSE Collected: 03/12/2018 Status: F Source: [place] 4:30 PM [facility] REPOSITORY TYPE CODE TESTS RESULT OUT OF REFERENCE UNITS RANGE LAB L501.080 70-110 mg/dL High BEDSIDE GLU 193 Result Comment: MANAGEMENT OF PATIENT CARE PER NURSING PROTOCOL Performed By: #### L501.080 #### [facility] Point of Care [address] [place] [address] PROTHROMBIN TIME W/INR Collected: 03/12/2018 Status: F Source: PATR[place]IA 3:20 PM [facility] REPOSITORY TYPE CODE TESTS RESULT OUT OF RANGE REFERENCE UNITS LAB L300.4150 11.7-14.9 SECONDS High PROTIME 17.6 LAB L300.4200 Normal INR 1.4 Performed By: #### L300.3900, L300.4310 #### [facility] [address] [place], [address] PARTIAL THROMBOPLAST Collected: 03/12/2018 Status: F Source: [place] TIME 3:20 PM [facility] REPOSITORY TYPE CODE TESTS RESULT OUT OF REFERENCE UNITS RANGE LAB L300.4310 24.1-36.2 Seconds High PTT 40.7 Performed By: #### L300.3900, L300.4310 #### [facility] [address] [place], [address] BEDSIDE GLUCOSE Collected: 03/12/2018 Status: F Source: [place] 11:14 AM [facility] REPOSITORY TYPE CODE TESTS RESULT OUT OF REFERENCE UNITS RANGE LAB L501.080 70-110 mg/dL High BEDSIDE GLU 218 Result Comment: MANAGEMENT OF PATIENT CARE PER NURSING PROTOCOL Performed By: #### L501.080 #### [facility] Point of Care [address] [place] [address] ECHO, COMPLETE W/ Observed: 03/12/2018 Status: F Source: [place] CONTRAST 10:49 AM [facility] REPOSITORY [facility] Cardiovascular Services [address] [place] [address] Echo Complete 03/12/18826 MR#: [id number] Acct: [id number] Name: DAVID LOUIS Rep #: [id number] : 1940 77 From: Greg Phillips MD Attending Dr: Demarcus Hills DO Status: ADM IN Ordering Dr: Duncan Paris MD Date: 03/11/18 Location: [facility] Sex: M C Admitted: 03/11/18 Reason For Study: Sinus Bradycardia Procedure This was a 2D Doppler, Color Flow transthoracic echocardiogram. The study was technically difficult. Did not use Definity due to increased PAP. Exam performed portable in patient room. Left Ventricle Normal LV size. Mild concentric left ventricular hypertrophy. The estimated ejection fraction is 55 %. Stage 2 diastolic dysfunction. No regional wall motion abnormalities noted. Tricuspid Valve Normal tricuspid valve. Mild (1+) tricuspid valve insufficiency. Pulmonary artery systolic pressure is 50 mmHg. Aortic Valve The aortic valve is not well visualized. Pulmonic Valve Normal pulmonic valve. Great Vessels Normal aortic root. The pulmonary artery is normal size. Normal inferior vena cava. Pericardium/Pleural No pericardial effusion. MMode/2D Measurements AND Calculations LVIDd: 5.0 cm IVSd: 1.4 cm LVOT diam: 2.2 cm LVIDs: 2.9 cm LVPWd: 1.4 cm LVOT area: 3.8 cm2 RVDd: 5.4 cm FS: 42.8 % Ao root diam: 3.7 cm LAV(MOD-bp): 59.1 ml LA A4 area: 23.5 cm2 LAV(MOD-bp) Indexed: 21.3 ml/m2 LAV(MOD-sp2): 52.1 ml LAV(MOD-sp4): 59.9 ml RA A4 area: 22.5 cm2 Doppler Measurements AND Calculations MV E max prabha: 103.5 cm/sec Lat Peak E' Prabha: 9.1 cm/sec Med Peak E' Prabha: 8.0 cm/sec MV A max prabha: 82.0 cm/sec E/E' lat: 11.4 E/E' med: 12.9 MV E/A: 1.3 Ao V2 max: 191.7 cm/sec LV V1 max: 98.2 cm/sec SV(LVOT): 102.6 ml Ao max P.8 mmHg LV V1 max P.9 mmHg Ao V2 mean: 139.0 cm/sec LV V1 mean P.7 mmHg Ao mean P.5 mmHg LV V1 mean: 79.0 cm/sec Ao V2 VTI: 50.2 cm LV V1 VTI: 27.2 cm GAYLA(I,D): 2.0 cm2 GAYLA(V,D): 1.9 cm2 PA V2 max: 86.5 cm/sec TR max prabha: 340.8 cm/sec TR max P.4 mmHg Interpretation Summary Normal LV size. Mild concentric left ventricular hypertrophy. The estimated ejection fraction is 55 %. Stage 2 diastolic dysfunction. The study was technically limited. The study was technically difficult. Ordering Physician: Duncan Paris Referring Physician: Wili Nelson Performed By: Ayala Flood, JOSSELINE, RVT 03/12/18 1049 Date Greg Phillips MD CC: Demarcus Hills DO; Wili Nelson DO; Duncan Paris MD Date Dictated: 03/12/18826 Date Transcribed: 03/12/181048 Lighting Engineer: Signed CONSULTATION Observed: 03/12/2018 Status: F Source: [place] 10:23 AM [facility] REPOSITORY [facility] Medical Records Department [address] [place] [address] Consultation 03/12/18 1012 MR#: [id number] Acct: [id number] Name: DAVID LOUIS Rep #: [id number] : 1940 77 From: Bebe Banuelos MD PCP: Wili Nelson DO Status: ADM IN Y Location: [place] [id number] Problem List (1) Symptomatic sinus bradycardia Status: Acute Reason for Consult Date of Consultation: 03/12/18 History of Present Illness: The patient is a 77 year old M with history of multiple medical problems including diabetes mellitus, obesity, chronic venous thromboembolism and pulmonary embolism, COPD and pulmonary hypertension. According to the patient, he was at the parking lot of restaurant when he felt lightheaded and fell to the ground. Denies any syncope or presyncope. According to the patient, these episodes of lightheadedness have happened a few times in the past as well. No history of syncope in the past neither. Next Patient also complains of occasional anterior chest discomfort. He describes it as pressure. This is precipitated with walking about 40 feet and relieved with rest. There are a few occasions at rest as well. [] Past Medical History Allergies/Adverse Reactions: Allergies MARGIE Inhibitors Allergy (Unknown, Verified 03/11/18 17:19) Unknown cefepime Allergy (Verified 03/11/18 17:19) Other WEAKNESS AND FALLING ipodate [Ipodate] Allergy (Verified 03/11/18 17:19) Shortness of breath levofloxacin [Levofloxacin] Allergy (Verified 03/11/18 17:19) Anaphylaxis lisinopril Allergy (Verified 03/11/18 17:19) Shortness of breath ofloxacin Allergy (Verified 03/11/18 17:19) Unknown Quinolones Allergy (Verified 03/11/18 17:19) Anaphylaxis Home Medications: Ambulatory Orders Medication Instructions Recorded Past Medical History (Chronic Problems): Chronic Problems (Last Reviewed 02/08/18 @ 13:38 by ANGELINA AguileraC) Thromboembolism (Chronic) BPH (benign prostatic hyperplasia) (Chronic) Super obesity (Chronic) Debility (Chronic) Noncompliance (Chronic) with CPAP and follow up and with diet COPD (chronic obstructive pulmonary disease) (Chronic) Type II diabetes mellitus, uncontrolled (Chronic) History of depression (Chronic) History of other venous thrombosis and embolism (Chronic) HLD (hyperlipidemia) (Chronic) HTN (hypertension) (Chronic) NILO (obstructive sleep apnea) (Chronic) Chronic renal failure, stage 3 (moderate) (Chronic) Bifascicular bundle branch block (Chronic) Colon polyps (Chronic) Family history of colon cancer (Chronic) Surgical History: - - Circumcision, excision of kidney stone Psychiatric History: Depression - *Family History Maternal History Items: Cancer - Patient's mother of cancer but he is not sure what kind of cancer. Paternal History Items: Cancer - Father of colon cancer Offspring History Items: - - He has a son who is morbidly obese and suffers from breathing problems and heart problems. Smoking Status: Former smoker Review of Systems - Review of Systems General: Denies: Fever, Chills Cardiovascular: Reports: Chest Discomfort at Rest, Chest Discomfort with Exertion, PND - History of obstructive sleep apnea Respiratory: Reports: Shortness of Breath Gastrointestinal: Denies: Abdominal Discomfort Neurological: Denies: History of TIA, History of CVA Hematologic/ Lymphatic: Reports: - - History of venous thromboembolism and pulmonary embolism Subjectve: Obese. Sitting up in bed Objective: Vital Signs Temp Pulse Resp BP Pulse Ox 98.7 F 46 L 16 139/68 H 92 03/12/18 09:05 03/12/18 09:05 03/12/18 09:05 03/12/18 09:05 03/12/18 09:05 Oxygen Delivery Method Room Air Weight: 168.9 kg Body Mass Index (BMI) 50.5 Intake and Output for Last 24 Hours Intake Total 1068 / 1068 628 / 628 Output Total 475 / 475 Balance 1068 / 1068 153 / 153 General: Obese HEENT: Atraumatic, Normocephalic Oral: Moist Mucosa Neck: - - Unable to assess jugular venous pulse because of body habitus Lungs: Diminished Nikolai Bases Cardiovascular: Regular Rhythm, Normal S1, Normal S2 Vascular: No Carotid Bruits Abdomen: Bowel Sounds Present, Soft Extremities: Bilateral Edema +1 Neurological: No Focal Motor or Sensory Deficit Psych/Mental Status: Appropriate 03/11/18 19:51: Magnesium 2.2, Troponin I < 0.015 03/11/18 23:24: Troponin I < 0.015 03/12/18 01:05: Urine Color Yellow, Urine Clarity Cloudy, Urine pH 6.0, Ur Specific [place] 1.015, Urine Protein 100 H, Urine Glucose (UA) Normal, Urine Ketones Negative, Urine Occult Blood 250 H, Urine Nitrite Negative, Urine Bilirubin Negative, Urine Urobilinogen Normal, Ur Leukocyte Esterase 500 H, Urine RBC 5-10 SEEN, Urine WBC 50- 100 SEEN 03/12/18 02:35: Sodium 137, Potassium 4.2, Chloride 106, Carbon Dioxide 23.0, Anion Gap 8, BUN 25 H, Creatinine 1.80 H, Est GFR (MDRD) Af Amer 47 L, Est GFR (MDRD) Non-Af 39 L, BUN/Creatinine Ratio 13.9, Glucose 172 H, Calcium 8.1 L 03/12/18 02:35: WBC 7.1, RBC 4.14 L, Hgb 11.5 L, Hct 36.4 L, MCV 87.9, MCH 27.8, MCHC 31.6 L, RDW 13.4, RDW Differential 42.9, Plt Count 171, MPV 9.3, Immature Gran % (Auto) 0.100, Neut % (Auto) 67.7, Lymph % (Auto) 21.2, Park % (Auto) 7.2, Eos % (Auto) 3.4, Baso % (Auto) 0.4, Absolute Neuts (auto) 4.8, Total Counted Not Reportable 03/12/18 02:35: Troponin I < 0.015 Rhythm: Sinus bradycardia EKG: EKG shows sinus bradycardia with sinus arrhythmia. 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 Trifascicular block ECHO: Stress Test: Cardiac Cath: PCI: CT Surgery: Holter monitor: EPS: PPM: CXR: Chest CT Scan: Assessment/Plan 1. Sick sinus syndrome with trifascicular block. Symptomatic with episodes of lightheadedness and falls. Recommend permanent pacemaker. Discussed with Dr. Phillips. Will schedule for Thursday 2. History of exertional chest discomfort. Occasional rest episodes. Consider angina pectoris. Continue aspirin. Start on nitrates. Check 2D echocardiogram with Doppler. Possible coronary angiography after his permanent pacemaker placement 3. History of chronic DVT with pulmonary embolism. On Eliquis. Hold Eliquis on Thursday morning in anticipation of permanent pacemaker placement 4. Chronic renal insufficiency 5. Hypertension 6. Diabetes mellitus 7. COPD 8. Obstructive sleep apnea 9. Obesity 10. History of hematuria 03/12/18 1023 <Electronically signed by Bebe Banuelos MD> Date Bebe Banuelos MD Cosigner Signature (if applicable): Date CC: Wili Nelson DO; Ady Cabello MD Signed BEDSIDE GLUCOSE Collected: 03/12/2018 Status: F Source: PATRICIA 6:40 AM [facility] REPOSITORY TYPE CODE TESTS RESULT OUT OF REFERENCE UNITS RANGE LAB L501.080 70-110 mg/dL High BEDSIDE GLU 152 Result Comment: MANAGEMENT OF PATIENT CARE PER NURSING PROTOCOL Performed By: #### L501.080 #### [facility] Point [place] [address] CBC W/DIFF, AUTOMATED Collected: 03/12/2018 Status: F Source: PATRICIA 2:35 AM [facility] REPOSITORY TYPE CODE TESTS RESULT OUT OF RANGE REFERENCE UNITS LAB L100.1000 4.4-11.0 K/mm3 Normal WBC 7.1 LAB L100.1200 4.6-6.2 M/mm3 Low RBC 4.14 LAB L100.1300 13.0-16.5 g/dl Low HGB 11.5 LAB L100.1400 40-54 % Low HCT 36.4 LAB L100.1500 80-94 fL Normal MCV 87.9 LAB L100.1600 27.0-32.0 pg Normal MCH 27.8 LAB L100.1700 32-36 g/gl Low MCHC 31.6 LAB L100.1810 11.6-14.6 % Normal RDW CV 13.4 LAB L100.1820 35.1-43.9 fl Normal RDW SD 42.9 LAB L100.1900 150-450 K/mm3 Normal PLT 171 LAB L100.2000 6.2-12.0 fl Normal MPV 9.3 LAB L100.2100 47-70 % Normal NEUT% 67.7 LAB L100.2200 19-41 % Normal LY% 21.2 LAB L100.2300 0-10 % Normal MONO% 7.2 LAB L100.2400 0-5 % Normal EO% 3.4 LAB L100.2500 0-1 % Normal BASO% 0.4 LAB L100.2550 0.0-0.9 % Normal IM GRAN % 0.100 Result Comment: IG% - Immature Granulocytes (promyelocytes, myelocytes and metamyelocytes) > 1% indicates that a LEFT SHIFT is Present. LAB L100.2620 2.0-7.7 X10 3/uL Normal Absolute Neut 4.8 LAB L100.2720 0.83-4.51 X10 3/ul Normal Absolute Lymph 1.51 Performed By: #### L100.0100 #### [facility] [facility] [address] [place], [address] BASIC METABOLIC Collected: 03/12/2018 Status: F Source: [place] PROFILE (BMP) 2:35 AM [facility] REPOSITORY TYPE CODE TESTS RESULT OUT OF RANGE REFERENCE UNITS LAB L501.0100 74-106 mg/dL High GLU 172 Result Comment: Fasting Glucose result greater than or equal to 126 mg/dL suggests DIABETES MELLITUS per A.D.A. criteria. Please note revised GLUCOSE reference range effective 2017. LAB L501.1000 7-18 mg/dL High BUN 25 LAB L501.1100 0.70-1.30 mg/dL High CREAT,SERUM 1.80 Result Comment: The validity of the calculated GFR AND GFRAA in patients over 70 years has not been determined. Clinical correlation is essential. LAB L501.1110 >60 mL/min Low EST GFR 39 Result Comment: Non- GFR Calc LAB L501.1115 >60 mL/min Low EST GFR - AA 47 Result Comment: GFR Calc LAB L501.1255 ml/min Normal Estimated CRCL 37.72 LAB L501.1300 10-20 RATIO Normal BUN/CRE 13.9 LAB L501.2200 8.5-10 mg/dL Low .1 CA 8.1 LAB L501.5300 136-14 mmol/L Normal 5 NA 137 LAB L501.5600 3.5-5. mmol/L Normal 1 K 4.2 LAB L501.5900 98-107 mmol/L Normal CL 106 LAB L501.6100 21.0-3 mmol/L Normal 2.0 CO2 23.0 LAB L501.6200 5-15 Normal GAP 8 Performed By: #### L500.2500 #### [facility] [address] [place], [address] TROPONIN-I Collected: 03/12/2018 Status: F Source: [place] 2:35 AM [facility] REPOSITORY Order Comment: 'TROP' Serial specimen #1, #2 or #3: 3 TYPE CODE TESTS RESULT OUT OF RANGE REFERENCE UNITS LAB L501.4010 <0.045 ng/mL Normal < 0.015 TROPONIN-I Result Comment: TROPONIN-I EXPECTED VALUES <0.045 Negative 0.045 - 0.590 Consistent with Cardiac Damage > OR = 0.600 Critical Value Not every elevated troponin is indicative of AL. These values should be used with clinical judgement in examining the patient's clinical picture for diagnosis. To establish a diagnosis of AL versus myocardial injury, there must be a demonstrated rise and/or fall in the troponin values, in addition to ischemic symptoms, EKG changes, new regional wall motion abnormality, and/or angiographical evidence. PLEASE NOTE: REFERENCE RANGES EDITED 17 Performed By: #### L501.4010 #### [facility] [address] [facility], [address] THYROID STIM HORMONE Collected: 03/12/2018 Status: F Source: [place] (TSH) 2:35 AM [facility] REPOSITORY TYPE CODE TESTS RESULT OUT OF RANGE REFERENCE UNITS LAB L501.9520 0.358-3.74 uIU/mL Normal TSH 1.29 Performed By: #### L501.9520 #### [facility] [address] [facility], [address] URINALYSIS, COMPLETE Collected: 03/12/2018 Status: F Source: [place] 1:05 AM [facility] REPOSITORY Order Comment: How was Urine Obtained? CLEAN CATCH TYPE CODE TESTS RESULT OUT OF RANGE REFERENCE UNITS LAB L400.3000 Yellow COLOR Normal Yellow LAB L400.3050 Clear Normal CLARITY Cloudy LAB L400.3200 Normal mg/dl Normal GLUCOSE, UR Normal LAB L400.3300 Negative mg/dL Normal BILIRUBIN URINE Negative LAB L400.3400 Negative mg/dl Normal KETONE UR Negative LAB L400.3465 1.002-1.030 Normal SP.GR. DIPSTX 1.015 LAB L400.3550 5.0 - 8.0 pH UR Normal 6.0 LAB L400.3600 Negative mg/dl High PROT DIPSTX 100 LAB L400.3700 Normal mg/dl Normal UROBILI Normal LAB L400.3750 Negative Normal NITRITE UR Negative LAB L400.3780 Negative /ul High OCCULT BLOOD-UR 250 LAB L400.3800 Negative /ul High LEUK ESTERASE 500 LAB L400.4050 0-5 /hpf WBC Normal 50-100 SEEN LAB L400.4100 0-5 /hpf Normal RBC-UA 5-10 SEEN LAB L400.4150 0-5 /hpf SQUAM 0 Normal EPI SEEN LAB L400.4300 None Seen /hpf 3+ Normal BACTERIA LAB L400.4350 <or=2+ /hpf 0 Normal MUCUS, URINE SEEN LAB L400.5200 None Seen /hpf 1+ Normal YEAST-URINE Performed By: #### L400.0001 #### [facility] [address] [facility] [facility], [address] EMERGENCY DEPARTMENT Observed: 03/12/2018 Status: F Source: [place] SUMMARY 12:51 AM [facility] REPOSITORY [facility] Medical Records Department [address] [place] [address] Emergency Department Summary 03/11/18 1832 MR#: [id number] Acct: [id number] Name: DAVID LOUIS Rep #: [id number] : 1940 77 From: Burton Arroyo MD PCP: Wili Nelson DO Status: ADM IN - ER Visit Summary Date of Service: 03/11/18 Chief Complaint: Syncope History of Present Illness: The patient is a 77 M presenting for evaluation secondary to a syncopal episode. Patient got out of his car and was walking around to get his cane when he suffered a sudden syncopal episode. Patient reports that he felt lightheaded prior to the episode but denies that he was having any sort of chest pain shortness of breath. EMS was called when they arrived patient was noted to be bradycardic. There were time I stood him up he was presyncopal, the patient was brought to the emergency department. No recent changes in the patient's medication regimens. He denies any chest pain or shortness of breath or recent infectious signs or symptoms. Review of systems otherwise negative. Physical Examination: Vital signs notable for hypertension 98/41 bradycardia with a rate of 41. Obese male no acute distress. Moist mucous membranes. No JVD. Heart was bradycardic and regular with distant heart sounds. Lung sounds clear. Abdomen soft nontender. Back nontender. 2+ peripheral edema bilaterally symmetric, left elbow abrasion noted, patient was alert and oriented without lateralizing deficit. Test Results: EKG demonstrates right bundle branch block with a left anterior fascicular block and a first-degree AV block with a rate of [address] segments normal T waves. CBC unremarkable, chemistry shows chronic kidney disease, troponin negative, chest x-ray per radiology shows chronic changes. Emergency Department Course and Treatment: Patient presented with a syncopal episode and bradycardia. He is mentating normally in the emergency department and is bradycardic, states that his baseline heart rate is typically in the 50s but I do believe that his decreased heart rate is likely the cause of his symptoms. He has no evidence of myocardial infarction at this time. Medication review shows the patient to be on a beta- zne which could potentially be precipitating his symptoms but I believe he requires admission at this time. I discussed this case with the hospitalist. Disposition: Admission Impression: 1. Symptomatically cardia This note was generated with [employer] dictation software. It may contain incorrect words, spelling, and punctuation that were not noted in review of the chart prior to signing ED Disposition - Plan for ED Patient: Chief Complaint: Weakness Referrals: Wili Nelson, DO [Primary Care Provider] - What to do if you have Problems For any increased pain, shortness of breath, bleeding, nausea or vomiting, chest pain, or any unexpected problems, contact your Primary Care Provider. Call [facility] ([phone]) or report to the closest Emergency Room. Call 911 if necessary. 03/12/18 0051 <Electronically signed by Burton Arroyo MD> Date Burton Arroyo MD Cosigner Signature (If Indicated): Date CC: Wili Nelson DO TROPONIN-I Collected: 03/11/2018 Status: F Source: [place] 11:24 PM [facility] REPOSITORY Order Comment: 'TROP' Serial specimen #1, #2 or #3: 2 TYPE CODE TESTS RESULT OUT OF RANGE REFERENCE UNITS LAB L501.4010 <0.045 ng/mL Normal < 0.015 TROPONIN-I Result Comment: TROPONIN-I EXPECTED VALUES <0.045 Negative 0.045 - 0.590 Consistent with Cardiac Damage > OR = 0.600 Critical Value Not every elevated troponin is indicative of AL. These values should be used with clinical judgement in examining the patient's clinical picture for diagnosis. To establish a diagnosis of AL versus myocardial injury, there must be a demonstrated rise and/or fall in the troponin values, in addition to ischemic symptoms, EKG changes, new regional wall motion abnormality, and/or angiographical evidence. PLEASE NOTE: REFERENCE RANGES EDITED 17 Performed By: #### L501.4010 #### [facility] [address] [place], [address] BEDSIDE GLUCOSE Collected: 03/11/2018 Status: F Source: [place] 10:05 PM [facility] REPOSITORY TYPE CODE TESTS RESULT OUT OF REFERENCE UNITS RANGE LAB L501.080 70-110 mg/dL High BEDSIDE GLU 155 Result Comment: MANAGEMENT OF PATIENT CARE PER NURSING PROTOCOL Performed By: #### L501.080 #### [facility] Point of Care [address] [place] [address] HISTORY AND PHYSICAL Observed: 03/11/2018 Status: F Source: [place] EXAM 8:18 PM [facility] REPOSITORY [facility] Medical Records Department [address] [place] [address] History and Physical 03/11/18 1906 MR#: [id number] Acct: [id number] Name: DAVID LOUIS Rep #: [id number] : 1940 77 From: Duncan Paris MD PCP: Wili Nelson DO Status: ADM IN Y Location: [address] Problem List (1) Symptomatic sinus bradycardia Status: Acute (2) Recurrent falls Status: Acute (3) Thromboembolism Status: Chronic (4) BPH (benign prostatic hyperplasia) Status: Chronic (5) Super obesity Status: Chronic (6) Cystitis Status: Resolved (7) Debility Status: Chronic (8) Noncompliance Status: Chronic Comment: with CPAP and follow up and with diet (9) COPD (chronic obstructive pulmonary disease) Status: Chronic (10) Type II diabetes mellitus, uncontrolled Status: Chronic (11) History of depression Status: Chronic (12) History of other venous thrombosis and embolism Status: Chronic (13) HLD (hyperlipidemia) Status: Chronic (14) HTN (hypertension) Status: Chronic (15) NILO (obstructive sleep apnea) Status: Chronic (16) Chronic renal failure, stage 3 (moderate) Status: Chronic (17) Bifascicular bundle branch block Status: Chronic (18) Colon polyps Status: Chronic (19) Family history of colon cancer Status: Chronic History of Present Illness Date of Admission: 03/11/18 Chief Complaint: Dizzy lightheaded and fall The patient is a 77 year old M With multiple comorbidities including DVT/PE, type 2 diabetes mellitus, COPD with moderate pulmonary hypertension, obstructive sleep apnea on BiPAP was brought to ER for syncope event and fall. Patient was found by EMS bradycardic, heart rate in 40s with weakness and fatigue. Earlier, patient had fall last week on face and but sustained no major injury and he did not seek medical attention. Today he fell down on left side on elbow and leg and there is mild abrasion/bruise. In ED, patient still in 40s, blood pressure 98/41 which improved 104/58. When I saw the patient, heart rate still in 40s, patient was short of breath may be chronic or acute on chronic in view of severe COPD and pulmonary hypertension. Atropine 0.5 mg IV given in 250 mL normal saline bolus ordered. Patient heart rate picked up to 67/min. EKG shows sinus bradycardia 42/min with bifascicular block right bundle branch block plus LAFB. I think, patient baseline heart rate runs in 60s. Earlier, patient was admitted in October 2017 for acute Pseudomonas cystitis complicating gross hematuria secondary to supratherapeutic INR. At that time, Coumadin was changed to Eliquis. I do not see Eliquis in his home medication list and patient and his family not clear whether he is taking are not. They deny any recent blood loss since last discharge. Past Medical History Past Medical History (Chronic Problems): Chronic Problems (Last Reviewed 02/08/18 @ 13:38 by Aicha Szymanski NP-C) Thromboembolism (Chronic) BPH (benign prostatic hyperplasia) (Chronic) Super obesity (Chronic) Debility (Chronic) Noncompliance (Chronic) with CPAP and follow up and with diet COPD (chronic obstructive pulmonary disease) (Chronic) Type II diabetes mellitus, uncontrolled (Chronic) History of depression (Chronic) History of other venous thrombosis and embolism (Chronic) HLD (hyperlipidemia) (Chronic) HTN (hypertension) (Chronic) NILO (obstructive sleep apnea) (Chronic) Chronic renal failure, stage 3 (moderate) (Chronic) Bifascicular bundle branch block (Chronic) Colon polyps (Chronic) Family history of colon cancer (Chronic) Medical History: Medical History (Last Reviewed 02/08/18 @ 13:38 by Aicha Szymanski NP-C) Thromboembolism (Chronic) I74.9 BPH (benign prostatic hyperplasia) (Chronic) N40.0 Super obesity (Chronic) E66.9 Cystitis (Resolved) N30.90 Debility (Chronic) R53.81 Noncompliance (Chronic) Z91.19 with CPAP and follow up and with diet COPD (chronic obstructive pulmonary disease) (Chronic) J44.9 Type II diabetes mellitus, uncontrolled (Chronic) E11.65 History of depression (Chronic) Z86.59 History of other venous thrombosis and embolism (Chronic) Z86.718 HLD (hyperlipidemia) (Chronic) E78.5 HTN (hypertension) (Chronic) I10 NILO (obstructive sleep apnea) (Chronic) G47.33 Chronic renal failure, stage 3 (moderate) (Chronic) N18.3 Bifascicular bundle branch block (Chronic) I45.2 Colon polyps (Chronic) Family history of colon cancer (Chronic) Z80.0 History of kidney stones (Resolved) Z87.442 MRSA (methicillin resistant staph aureus) culture positive (Resolved) Z22.322 Allergies MARGIE Inhibitors Allergy (Unknown, Verified 03/11/18 17:19) Unknown cefepime Allergy (Verified 03/11/18 17:19) Other WEAKNESS AND FALLING ipodate [Ipodate] Allergy (Verified 03/11/18 17:19) Shortness of breath levofloxacin [Levofloxacin] Allergy (Verified 03/11/18 17:19) Anaphylaxis lisinopril Allergy (Verified 03/11/18 17:19) Shortness of breath ofloxacin Allergy (Verified 03/11/18 17:19) Unknown Quinolones Allergy (Verified 03/11/18 17:19) Anaphylaxis Home Medications: Ambulatory Orders Medication Instructions Recorded Atorvastatin Calcium [Lipitor] 40 mg PO QHS 05/29/15 Surgical History: - - Circumcision, excision of kidney stone Psychiatric History: Depression Smoking Status: Former smoker - *Family History Maternal History Items: Cancer - Patient's mother of cancer but he is not sure what kind of cancer. Paternal History Items: Cancer - Father of colon cancer Offspring History Items: - - He has a son who is morbidly obese and suffers from breathing problems and heart problems. Review of Systems Constitutional: Reports: Weakness, Fatigue. Denies: Chills, Fever, Weight Change HEENT: Denies: Head Aches, Sinus Congestion, Sinus Drainage Cardiovascular: Denies: Chest Pain, Palpitations Respiratory: Reports: Shortness of breath at rest, Shortness of breath upon exertion. Denies: Cough, Sputum production Gastrointestinal: Denies: Abdominal Pain, Nausea, Vomiting Genitourinary: Denies: Dysuria Musculoskeletal: Denies: Joint Pain, Joint Tenderness Skin: Reports: Rash - Chronic venous hypertension with stasis dermatitis, Skin Changes Neurological: Reports: Balance problems, Incoordination. Denies: Focal weakness, Numbness, Tingling Psychiatric: Denies: Anxiety, Depression, Homicidal Ideations, Suicidal Ideations Hematologic/ Lymphatic: Denies: Easy Bruising, Easy Bleeding VTE Information - Inpt Only VTE Present on Admission: No VTE Mechan Device Prophylaxis: None Reason prophylaxis not ordered:: Procedure Not Indicated - On Eliquis Patient Problems: Active and Suspected Problems (Last Reviewed 02/08/18 @ 13:38 by Aicha Szymanski NP-C) Symptomatic sinus bradycardia (Acute) Recurrent falls (Acute) - Physical Exam General: Alert, Oriented x3, Cooperative HEENT: Atraumatic, PERRLA, EOMI, Normocephalic Neck: Supple, No JVD, Negative Carotid Bruits Lungs: Clear to auscultation, No rhonchi, No wheeze, No rales, Diminished Cardiovascular: Normal S1, Normal S2, No murmurs, Bradycardic Abdomen: Bowel Sounds Present, Soft, Non Tender, Non-Distended Extremities: Capillary Refill Less than 3 Seconds, Edema Skin: No breakdown, Rash Present - Venous stasis with chronic venous hypertension, - - Small bruise over posterior aspect of left forearm and left thigh secondary to fall. Musculoskeletal: No Tenderness to Palpation of Joints or Extremities Neurological: Cranial nerves II-XII grossly intact Psych/Mental Status: Normal Affect, Appropriate Vital Signs Temp Pulse Resp BP Pulse Ox 97.9 F 67 16 103/68 95 03/11/18 18:45 03/11/18 18:45 03/11/18 18:45 03/11/18 18:45 03/11/18 18:45 Assessment/Plan All Active Problems (Last Reviewed 02/08/18 @ 13:38 by Aicha Szymanski NP-C) Symptomatic sinus bradycardia (Acute) Recurrent falls (Acute) Cystitis (Resolved) History of kidney stones (Resolved) MRSA (methicillin resistant staph aureus) culture positive (Resolved) The patient is a 77 year old M With multiple comorbidities including DVT/PE, type 2 diabetes mellitus, COPD with moderate pulmonary hypertension, obstructive sleep apnea on BiPAP was brought to ER for syncope event and fall. Patient was found by EMS bradycardic, heart rate in 40s with weakness and fatigue. Earlier, patient had fall last week on face and but sustained no major injury and he did not seek medical attention. Today he fell down on left side on elbow and leg and there is mild abrasion/bruise. In ED, patient still in 40s, blood pressure 98/41 which improved 104/58. When I saw the patient, heart rate still in 40s, patient was short of breath may be chronic or acute on chronic in view of severe COPD and pulmonary hypertension. Atropine 0.5 mg IV given in 250 mL normal saline bolus ordered. Patient heart rate picked up to 67/min. EKG shows sinus bradycardia 42/min with bifascicular block right bundle branch block plus LAFB. I think, patient baseline heart rate runs in 60s. Earlier, patient was admitted in October 2017 for acute Pseudomonas cystitis complicating gross hematuria secondary to supratherapeutic INR. At that time, Coumadin was changed to Eliquis. I do not see Eliquis in his home medication list and patient and his family not clear whether he is taking are not. They deny any recent blood loss since last discharge. 1. Severe sinus symptomatic bradycardia, etiology unclear with chronic bifascicular block: I think patient might have underlying sick sinus syndrome TOO patient is being admitted to the stepdown unit. Monitor closely heart rate and blood pressure. Atropine as needed. If patient is further symptomatic with heart rate less than 40 will need transcutaneous pacemaker. Normal saline 500 mL bolus over 2 hours and then 100 mL/h. Monitor intake and output. Discussed with Dr. Banuelos and Dr. Cabello for consult to further evaluate bradycardia and possible need of pacemaker. 2D echo tomorrow a.m. Cycle cardiac enzymes. I do not see beta-zen on his home medication although he was discharged last time in October 2017 Patient had last echo in January 2017 which shows normal LV size with mild concentric LVH; EF 60%. No regional wall motion abnormality. 2+ TR, RVSP 54 images history of moderate pulmonary hypertension. Mitral and aortic valves were not visualized. 2. Syncope and fall probably from bradycardia episode with hypotension: As mentioned above. PT and OT. Patient denies history of coronary artery disease or AL. Patient had last nuclear stress test in January 2017 which was negative for ischemia. 3. COPD, advanced and obstructive sleep apnea with moderate pulmonary hypertension: DuoNeb every 4 hourly as needed. BiPAP at night. 4. Acute kidney injury on CKD stage III: Currently patient creatinine is 1.95, BUN 24. Last BUN/creatinine on 11/19/2017; 28/1.69. IV fluid normal saline. Monitor kidney function and electrolytes. Recent history of DVT/PE: As mentioned above, it seems patient is not on oral anticoagulant. Patient has not filled up Eliquis from pharmacy, confirmed by the ED nursing staff. Put back on Eliquis 5 mg twice daily. Patient is high risk of bleeding in view of history of hematuria and recurrent fall. 5. Diabetes mellitus type 2: Serum blood glucoses 139 on BMP. Continue home dose of Levemir and short-acting insulin. Accu-Chek before meals and at bedtime call with NovoLog sliding scale. Other comorbidities include hypertension, dyslipidemia, CKD stage III, super morbid obesity, BPH, anxiety and depression: Home medication reconciliation done. Multiple comorbidities complicates the present care and expect difficult and delay recovery. This note was generated with [employer] dictation software. Every effort was made to ensure accuracy, however computerized director of payroll mistakes may persist. Code Visit Inpatient Irving AND M: [id number] Init Hosp L3 03/11/182017 <Electronically signed by Duncan Paris MD> Date Duncan Paris MD Cosign Signature: Date (if applicable) CC: Wili Nelson DO; Duncan Paris MD Signed BEDSIDE GLUCOSE Collected: 03/11/2018 Status: F Source: [place] 8:05 PM [facility] REPOSITORY TYPE CODE TESTS RESULT OUT OF REFERENCE UNITS RANGE LAB L501.080 70-110 mg/dL High BEDSIDE GLU 120 Result Comment: MANAGEMENT OF PATIENT CARE PER NURSING PROTOCOL Performed By: #### L501.080 #### [facility] Point of Care [address] [facility] [facility]. [place], [place] [address] TROPONIN-I Collected: 03/11/2018 Status: F Source: [place] 7:51 PM [facility] REPOSITORY Order Comment: 'TROP' Serial specimen #1, #2 or #3: 1 'TROP' Serial specimen #1, #2, #3, or #4: 2 TYPE CODE TESTS RESULT OUT OF RANGE REFERENCE UNITS LAB L501.4010 <0.045 ng/mL Normal < 0.015 TROPONIN-I Result Comment: TROPONIN-I EXPECTED VALUES <0.045 Negative 0.045 - 0.590 Consistent with Cardiac Damage > OR = 0.600 Critical Value Not every elevated troponin is indicative of AL. These values should be used with clinical judgement in examining the patient's clinical picture for diagnosis. To establish a diagnosis of AL versus myocardial injury, there must be a demonstrated rise and/or fall in the troponin values, in addition to ischemic symptoms, EKG changes, new regional wall motion abnormality, and/or angiographical evidence. PLEASE NOTE: REFERENCE RANGES EDITED 17 Performed By: #### L501.4010, L501.5200 #### [facility] [address] [place], [place], [address] MAGNESIUM Collected: 03/11/2018 Status: F Source: [place] 7:51 PM [facility] REPOSITORY Order Comment: 'TROP' Serial specimen #1, #2 or #3: 1 'TROP' Serial specimen #1, #2, #3, or #4: 2 TYPE CODE TESTS RESULT OUT OF RANGE REFERENCE UNITS LAB L501.5200 1.6-2.6 mg/dL Normal MG 2.2 Performed By: #### L501.4010, L501.5200 #### [facility] [address] [place], [address] CBC W/DIFF, AUTOMATED Collected: 03/11/2018 Status: F Source: [place] 5:30 PM [facility] REPOSITORY TYPE CODE TESTS RESULT OUT OF RANGE REFERENCE UNITS LAB L100.1000 4.4-11.0 K/mm3 Normal WBC 7.6 LAB L100.1200 4.6-6.2 M/mm3 Low RBC 4.25 LAB L100.1300 13.0-16.5 g/dl Low HGB 11.9 LAB L100.1400 40-54 % Low HCT 37.2 LAB L100.1500 80-94 fL Normal MCV 87.5 LAB L100.1600 27.0-32.0 pg Normal MCH 28.0 LAB L100.1700 32-36 g/gl Normal MCHC 32.0 LAB L100.1810 11.6-14.6 % Normal RDW CV 13.5 LAB L100.1820 35.1-43.9 fl Normal RDW SD 43.2 LAB L100.1900 150-450 K/mm3 Normal PLT 189 LAB L100.2000 6.2-12.0 fl Normal MPV 9.4 LAB L100.2100 47-70 % High NEUT% 72.4 LAB L100.2200 19-41 % Low LY% 16.9 LAB L100.2300 0-10 % Normal MONO% 7.4 LAB L100.2400 0-5 % Normal EO% 2.8 LAB L100.2500 0-1 % Normal BASO% 0.4 LAB L100.2550 0.0-0.9 % Normal IM GRAN % 0.100 Result Comment: IG% - Immature Granulocytes (promyelocytes, myelocytes and metamyelocytes) > 1% indicates that a LEFT SHIFT is Present. LAB L100.2620 2.0-7.7 X10 3/uL Normal Absolute Neut 5.5 LAB L100.2720 0.83-4.51 X10 3/ul Normal Absolute Lymph 1.28 Performed By: #### L100.0100 #### [facility] [address] [place], [place], [address] BASIC METABOLIC Collected: 03/11/2018 Status: F Source: [place] PROFILE (BMP) 5:30 PM [facility] REPOSITORY TYPE CODE TESTS RESULT OUT OF RANGE REFERENCE UNITS LAB L501.0100 74-106 mg/dL High GLU 139 Result Comment: Fasting Glucose result greater than or equal to 126 mg/dL suggests DIABETES MELLITUS per A.D.A. criteria. Please note revised GLUCOSE reference range effective 2017. LAB L501.1000 7-18 mg/dL High BUN 24 LAB L501.1100 0.70-1.30 mg/dL High CREAT,SERUM 1.95 Result Comment: The validity of the calculated GFR AND GFRAA in patients over 70 years has not been determined. Clinical correlation is essential. LAB L501.1110 >60 mL/min Low EST GFR 36 Result Comment: Non- GFR Calc LAB L501.1115 >60 mL/min Low EST GFR - AA 43 Result Comment: GFR Calc LAB L501.1255 ml/min Normal Estimated CRCL 34.82 LAB L501.1300 10-20 RATIO Normal BUN/CRE 12.3 LAB L501.2200 8.5-10 mg/dL Normal .1 CA 8.5 LAB L501.5300 136-14 mmol/L Normal 5 NA 139 LAB L501.5600 3.5-5. mmol/L Normal 1 K 4.2 LAB L501.5900 98-107 mmol/L Normal CL 106 LAB L501.6100 21.0-3 mmol/L Normal 2.0 CO2 25.0 LAB L501.6200 5-15 Normal GAP 8 Performed By: #### L500.2500, L501.4010 #### [facility] [address] [place], [address] TROPONIN-I Collected: 03/11/2018 Status: F Source: [place] 5:30 PM [facility] REPOSITORY TYPE CODE TESTS RESULT OUT OF RANGE REFERENCE UNITS LAB L501.4010 <0.045 ng/mL Normal < 0.015 TROPONIN-I Result Comment: TROPONIN-I EXPECTED VALUES <0.045 Negative 0.045 - 0.590 Consistent with Cardiac Damage > OR = 0.600 Critical Value Not every elevated troponin is indicative of AL. These values should be used with clinical judgement in examining the patient's clinical picture for diagnosis. To establish a diagnosis of AL versus myocardial injury, there must be a demonstrated rise and/or fall in the troponin values, in addition to ischemic symptoms, EKG changes, new regional wall motion abnormality, and/or angiographical evidence. PLEASE NOTE: REFERENCE RANGES EDITED 17 Performed By: #### L500.2500, L501.4010 #### [facility] [address] [place], [address] CHEST 1 VIEW Observed: 03/11/2018 Status: F Source: [place] (PORTABLE) 5:18 PM [facility] REPOSITORY [facility] Imaging Services [address] [place] [address] Chest 1 View (Portable) MR#: [id number] Acct: [id number] Name: LOUISDAVID Malena Rep #: [id number] : 1940 77 From: Eladio Chavez MD PCP: Wili Nelson DO Status: REG ER Study: Chest 1 View (Portable) Date of Exam: 03/11/18 Exam# [id number] Ordering Dr: Burton Arroyo MD STUDY: X-RAY CHEST REASON FOR EXAM: Male, 77 years old. Weakness, chest pain TECHNIQUE: Single AP portable view of the chest. COMPARISON: 11/14/2017 FINDINGS: EKG leads overlie the chest There are interstitial fibrotic changes of the lungs. There is no demonstrated pleural abnormality. Stable cardiomegaly. Normal mediastinum and denys. Normal visualized pulmonary arteries. Normal visualized aortic arch and descending thoracic aorta. There are diffuse degenerative changes of the visualized thoracic spine. Normal visualized ribs, clavicles, and shoulders. There is no demonstrated abnormality of the visualized soft tissue structures of the upper abdomen. RAD/Chest 1 View (Portable) IMPRESSION: Chronic interstitial changes, no superimposed acute pulmonary process. Stable cardiomegaly. Electronically Signed: Ren Chavez MD at 17:57 EDT , Service support , CC: Wili Nelson DO; Burton Arroyo Lighting Engineer: Signed PROGRESS Observed: 03/11/2018 Status: COMPLETED Source: [place] 2:24 PM [facility] REPOSITORY HNO ID: [id number] Author: Moe Bolaños Service: (none) Author Type: Physician Type: Progress Notes Filed: 03/11/2018 3:10 PM Note Text: Moe Bolaños DPM Department of Podiatry [address] [address] Dept: [phone] Dept Diabetic Nail Care SUBJECTIVE: Follow up office visit: This 77 year old male presents to clinic c/o painful toenails. Patient states that the nails are especially painful with shoe gear and pressure. Patient admits to being diabetic and states that their blood sugar was 300 mg/dL this AM. Patient denies claudication type symptoms when walking. No other pedal complaints at this time. No change in medications or medical history since last visit. OBJECTIVE: Patient presents to clinic ambulating in diabetic shoes. Vasc: DP and PT pulses are faint bilateral. CFT is less than 5 seconds bilateral. Skin temperature is warm to warm proximal to distal bilateral. There is moderate edema or varicosities noted. Hair growth present. Neuro: Protective sensation is decreased to the foot and toes when tested with the 5.07 SWM bilateral. Vibratory sensation is decreased at the hallux bilateral. significant neurological defecits. Derm: Inspection and palpation performed. Nails 1-5 left and 1,2,,5 right are painful, discolored-yellow, thick, crumbly, dystrophic and with subungal debris. Skin is of normal turgor and texture. Hyperkeratosis not present. NO ulcerations, scars, verruca or other lesions noted. Ortho: Ankle joint DF is full with the knee extended and full with knee flexed. No pain or crepitus noted. STJ, MTJ ROM are full and free of pain or crepitus. Muscle strength is 5/5 for dorsiflexors, plantarflexors, inverters, everters. 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 Nails 1-5 bilateral were debrided in length and thickness. Diabetic shoes ordered Patient was instructed on the continued importance of diabetic foot care along with proper diet and keeping their blood sugar under control to prevent complications. Patient is to RTC in 3-4 months. Moe Bolaños DPM CNOV Observed: 03/11/2018 Status: COMPLETED Source: [place] 2:10 PM [facility] REPOSITORY Office Visit (PODIWS) DAVID LOUIS ([id number]) 1940 M Date Time Provider Department 03/11/18 2:10 PM MOE BOLAÑOS During your visit today, we recorded the following information about you: Moe Bolaños DPM 03/11/2018 3:10 PM Signed Moe Bolaños DPM Department of Podiatry [address] [address] Dept: [phone] Dept Diabetic Nail Care SUBJECTIVE: Follow up office visit: This 77 year old male presents to clinic c/o painful toenails. Patient states that the nails are especially painful with shoe gear and pressure. Patient admits to being diabetic and states that their blood sugar was 300 mg/dL this AM. Patient denies claudication type symptoms when walking. No other pedal complaints at this time. No change in medications or medical history since last visit. OBJECTIVE: Patient presents to clinic ambulating in diabetic shoes. Vasc: DP and PT pulses are faint bilateral. CFT is less than 5 seconds bilateral. Skin temperature is warm to warm proximal to distal bilateral. There is moderate edema or varicosities noted. Hair growth present. Neuro: Protective sensation is decreased to the foot and toes when tested with the 5.07 SWM bilateral. Vibratory sensation is decreased at the hallux bilateral. significant neurological defecits. Derm: Inspection and palpation performed. Nails 1-5 left and 1,2,,5 right are painful, discolored-yellow, thick, crumbly, dystrophic and with subungal debris. Skin is of normal turgor and texture. Hyperkeratosis not present. NO ulcerations, scars, verruca or other lesions noted. Ortho: Ankle joint DF is full with the knee extended and full with knee flexed. No pain or crepitus noted. STJ, MTJ ROM are full and free of pain or crepitus. Muscle strength is 5/5 for dorsiflexors, plantarflexors, inverters, everters. 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 Nails 1-5 bilateral were debrided in length and thickness. Diabetic shoes ordered Patient was instructed on the continued importance of diabetic foot care along with proper diet and keeping their blood sugar under control to prevent complications. Patient is to RTC in 3-4 months. 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 METOPROLOL SUCCINATE ER 50 MG* Take 50 mg by mouth once franchesca* LOSARTAN 100 MG TABLET Take 100 mg by mouth once keshav* LEVEMIR FLEXTOUCH U-100 INSUL* NOVOLOG FLEXPEN U-100 INSULIN* WARFARIN 1 MG TABLET WARFARIN 6 MG TABLET FLUTICASONE 50 MCG/ACTUATION * Use 1 Acampo in each nostril d* AMMONIUM LACTATE-SODIUM LACTA* Apply 1 application to affect* BLOOD SUGAR DIAGNOSTIC STRIPS Test blood sugar(s) 3 times d* MUPIROCIN 2 % TOPICAL OINTMENT Apply 1 application to affect* ATORVASTATIN 20 MG TABLET Take 1 tablet by mouth once d* ALBUTEROL SULFATE HFA 90 MCG/* Inhale 2 Puffs as instructed * IPRATROPIUM-ALBUTEROL 0.5 MG-* Inhale 3 mL as instructed connie* INSULIN SYRINGE-NEEDLE U-100 * Use as directed to inject ins* PEN NEEDLE, DIABETIC 31 GAUGE* 1 Each as needed. INSULIN REGULAR HUMAN U-500C* Use 30 units with breakfast, * AMLODIPINE 5 MG TABLET Take 1.5 tablets by mouth onc* WARFARIN 5 MG TABLET Alternate 5mg and 7.5mg every* BIPAP Change: BIPAP 23/18 cmH2O, w* INSULIN SYRINGES (DISPOSABLE)* USE DIRECTED BUPROPION HCL SR 150 MG TABLE* Take 1 tablet by mouth twice * INSULIN GLARGINE (U-100) 100 * Inject 40 Units subcutaneousl* FLUTICASONE 250 MCG-SALMETERO* Inhale 1 Puff as instructed t* More... Problem List As Of Date 03/11/2018 Noted Resolved Essential hypertension, benign [I10] INVALID FOR* Priority: B Other and unspecified hyperlipidemia [E78.5] INVALID FOR* Priority: A Edema [R60.9] INVALID FOR* Family history of malignant neoplasm of gastroi*INVALID FOR* More... Unspecified sleep apnea [G47.30] INVALID FOR* Priority: B Morbid obesity [E66.01] INVALID FOR* Priority: A Depressive disorder, not elsewhere classified [*INVALID FOR* Priority: C Chronic kidney disease, stage III (moderate) [N*INVALID FOR* Priority: B Unspecified constipation [K59.00] INVALID FOR* Other pulmonary embolism and infarction [I26.99]INVALID FOR* Priority: Severe More... Chronic venous hypertension with ulcer [I87.319*INVALID FOR* More... DM w/o complication type II, uncontrolled [E11.*INVALID FOR* Priority: A More... Stasis leg ulcer [I83.009, L97.909] INVALID FOR* Priority: B More... COPD (chronic obstructive pulmonary disease) [J*INVALID FOR* Priority: B More... UTI (lower urinary tract infection) [N39.0] INVALID FOR*12/29/2011 Priority: Moderate More... Venous insufficiency [I87.2] Tobacco use disorder [F17.200] INVALID FOR* More... 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 Chronic rhinitis [J31.0] INVALID FOR* Uncontrolled type 2 diabetes with neuropathy (H*INVALID FOR* Onychomycosis [B35.1] INVALID FOR* Pain in toe of left foot [M79.675] INVALID FOR* Pain in toe of right foot [M79.674] INVALID FOR* Disposition: Return in about 3 months (around 06/10/2018) for nail care. Follow-up and Disposition History Recorded Encounter Status:Closed by MOE BOLAÑOS DPM on 03/11/18 PULMONARY VISIT REPORT Observed: 02/08/2018 Status: F Source: [place] 2:06 PM [facility] REPOSITORY [facility] [address] [place] [address] OFFICE VISIT Date of Service: 02/08/18 MR#: [id number] Acct: [id number] Name: DAVID LOUIS Rep #: [id number] : 1940 Provider: Aicha Szymanski Age/Sex: 77/M Location: [place].[facility] Status: Signed Assessment AND Plan 1. NILO (obstructive sleep apnea) G47.33 Plan Despite the fact that the patient is using and benefiting from BiPAP therapy, he has a continued high AHI of 19.7 average events per hour. He also has significant leak, almost consistently. Plan to refer him to the sleep lab for Pap education, to try to identify any possibilities for improvement. No change in pressure support at this time. If unable to identify any ways for improvement at Pap education the patient may require a titration study. This can be evaluated further at a 3 month follow-up with Dr. Malone. The patient has been encouraged to contact the office with any new or worsening symptoms in the meantime. Orders Orders: 2. 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 3. Shortness of breath R06.02 Plan Deteriorated, the patient does not believe that the albuterol HFA has been as helpful. Switching him to the respite click device, follow-up with Dr. Malone in [address] Malone can evaluate if the patient believes the respite click has been more helpful than the HFA delivery system. The patient has been encouraged to contact the office with any new or worsening symptoms in the meantime. Plan Detail Other Medications New: albuterol sulfate 90 mcg/actuation (ProAir Re2 puffs Inhalation Q4H PRN shortness of sascha spiClick) administer with spacer th or wheezing Follow Up 3 Months (DMB) [facility] hospital f/u: Chief Complaint: Shortness of breath on exertion HPI Comments Details: This is a 77 year old M, currently under the care of Wili Nelson DO, here today to review test results. Currently he does report shortness of breath on exertion, but feels it is no worse than it has been previously. He denies any shortness of breath with conversation or at rest. He denies any cough, wheezing or chest tightness. He does report some increased shortness of breath on hot humid days, during which time he does use his rescue inhaler. He does provide him with some temporary relief of his symptoms. He does not believe that the rescue inhaler works as effectively as a used to. At times he does have a cough that is productive of white sputum, but this is not daily. He denies any chest pain or palpitations. He has had a reduction in his lower extremity edema. See complete review of systems. I personally reviewed the tests/images/tracings which showed: Complete Pulmonary Function test were preformed on October 08, 2017, and showed FVC of 77 % of predicted, FEV1 of 85 % of predicted, FEV1/FVC ratio of 79 %, TLC of 80 % of predicted, RV of 79 % of predicted, DLCO 59% predicted. The test was interpreted to be consistent with a mild restrictive defect, and a symmetric reduction in diffusing capacity. Pulmonary stress test was completed on September 22, 2017, and did not show a drop in saturation below 89%, which confirms no current need for supplemental oxygen on exertion. Complaints report for the past 30 days shows 100% compliance, average use is 13 hours daily. Current settings are 18/12 cm of water, AHI remains elevated at 19.7 average events per hour. Leaks appear to be a consistent issue. Does feel rested upon arising in the morning. He does admit that he likes to take naps. He does have a significant leak, most of the time. He recently replaced his cushion in the past 2 weeks. Intake Vital Signs02/08/18 Height 6 ft 02/08/18 Weight: 380 lb Intake Visit Reasons: hospital f/u DME Vendor: [employer] Accompanied by: Allergies MARGIE Inhibitors Allergy (Unknown, Verified 02/08/18 10:56) Unknown cefepime Allergy (Verified 02/08/18 10:56) Other ipodate [Ipodate] Allergy (Verified 02/08/18 10:56) Shortness of breath levofloxacin [Levofloxacin] Allergy (Verified 02/08/18 10:56) Anaphylaxis lisinopril Allergy (Verified 02/08/18 10:56) Shortness of breath ofloxacin Allergy (Verified 02/08/18 10:56) Unknown Quinolones Allergy (Verified 02/08/18 10:56) Anaphylaxis Medications Atorvastatin Calcium [Lipitor] 40 mg PO QHS 05/29/15 [History Confirmed 02/08/18] Citalopram [Celexa] 40 mg PO DAILY 05/29/15 [History Confirmed 02/08/18] Fluticasone 0.05% [Flonase Nasal Acampo] 1 spray NASAL BID PRN 05/29/15 [History Confirmed 02/08/18] Tamsulosin HCl [Flomax] 0.4 mg PO DAILY 07/08/16 [History Confirmed 02/08/18] Losartan Potassium [Cozaar] 100 mg PO DAILY 07/24/17 [History Confirmed 02/08/18] Nystatin Powder [Mycostatin Powder] 1 applic TOPICAL BID 08/06/17 [History Confirmed 02/08/18] Insulin Aspart [Novolog Flexpen] 13 units SC TIDAC #1 flexpen 08/11/17 [Rx Confirmed 02/08/18] Insulin Detemir [Levemir FlexPen] 20 units SC BID #1 insuln.pen 08/11/17 [Rx Confirmed 02/08/18] Metoprolol(XL)Succ [Toprol Xl (Beta Zen)] 50 mg PO DAILY #30 tab 08/11/17 [Rx Confirmed 02/08/18] Mineral Oil/Petrolatum,White [Eucerin] 1 applic TOPICAL BID@0600,2200 jar 08/11/17 [Rx Confirmed 02/08/18] Gabapentin [Neurontin] 100 mg PO BID 11/14/17 [History Confirmed 02/08/18] Albuterol Inhaler [Ventolin Hfa] 2 puff INHALATION Q6HWA.RT #1 inhaler 11/19/17 [Rx Confirmed 02/08/18] Apixaban [Eliquis] 5 mg PO BID #60 tab 11/19/17 [Rx Confirmed 02/08/18] Fosfomycin Tromethamine [Monurol] 3 gm PO Q72H #3 packet 11/19/17 [Rx Confirmed 02/08/18] Isosorbide Mononitrate [Imdur] 30 mg PO DAILY #30 tab 11/19/17 [Rx Confirmed 02/08/18] albuterol sulfate 90 mcg/actuation breath activated powder inhaler 2 puff INHALATION Q4H PRN #1 ea 02/08/18 [Rx Confirmed 02/08/18] PFSH Medical History Thromboembolism (Chronic) BPH (benign prostatic hyperplasia) (Chronic) Super obesity (Chronic) Cystitis (Acute) Debility (Chronic) Noncompliance (Chronic) COPD (chronic obstructive pulmonary disease) (Chronic) Type II diabetes mellitus, uncontrolled (Chronic) History of depression (Chronic) History of other venous thrombosis and embolism (Chronic) HLD (hyperlipidemia) (Chronic) HTN (hypertension) (Chronic) NILO (obstructive sleep apnea) (Chronic) Chronic renal failure, stage 3 (moderate) (Chronic) Bifascicular bundle branch block (Chronic) Colon polyps (Chronic) Family history of colon cancer (Chronic) History of kidney stones (Resolved) MRSA (methicillin resistant staph aureus) culture positive (Resolved) Social History Smoking Status: Former smoker Review of Systems Const CONSTITUTIONAL: Positive daytime sleepiness and fatigue; negative anorexia, body ache, chills, fever(s), night sweats, oral thrush, stops breathing during sleep, weight loss, sleeping in chair, weight loss, weight gain, frequent colds, seasonal allergies, other, headache(s) or orthopnea EETM Ear Nose Throat Mouth: Positive hearing normal; negative hard of hearing, hoarseness, dry mouth in morning, change in vision, itchy eyes, eye pain, swallowing Difficulty, ear pain, nose bleed, headache(s), mouth pain, nasal congestion, nasal discharge, post nasal drip, sinus pain, sinus pressure, sore throat or other Cardio Cardiovascular: Negative chest pain, chest pain at rest, chest pain with activity, irregular heart rhythm, edema, shortness of breath when lying down, palpitations, murmur or other Resp Respiratory: Positive as per HPI, shortness of breath shortness of breath: Positive with activity and cough cough: Positive productive color: Positive thick and white; negative pain with cough, wheezing, chest congestion, chest tightness, pain on inspiration, inhalers, increase use of rescue inhalers, snoring, apnea or other Gastro Gastrointestional: Negative bloody stools, change in appetite, difficulty swallowing, reflux, hematemesis, melena stool, loose stool, constipation or other Genitourinary: Negative blood in urine, nocturia, pain with urination or other Musc Musculoskeletal: Negative body pain, back pain, neck pain or other Skin/Breast Skin/Breast: Negative dry skin, itching, rash, unusual bruising, breast lump or other Neuro Neurological: Negative restless legs, confusion, weakness or other Psych Psychocological: Negative abnormal sleep pattern, anxiety, thoughts of hurting self/others, hopelessness or other Lymph Lymphatic: Negative easy bleeding, easy bruising, swollen lymph nodes or other Exam Const Constitutional: Positive conversant, cooperative, in no acute respiratory distress, well developed, well nourished, poor hygiene, obese and dyspenic Head Head: Positive normocephalic and atraumatic; negative cyanosis of lips/distal nose Eyes Eye: Positive clear conjunctiva; negative nystagmus or scleral abnormality Ears Ear: Positive hearing normal and external ears normal; negative hard of hearing Nose Nose: Positive external nose normal and no nasal discharge; negative epistaxis Mouth Mouth: Positive oral mucosae normal, no lesions, poor dentition and crowded posterior oropharynx; negative post nasal drip, malodorous breath or oral thrush present Mallampati Score: IV: Mallampati Score Neck Neck: Positive normal visual inspection, full ROM, trachea midline, thick neck and male neck greater than 43 cm (17 in); negative lymphadenopathy, JVD or tender Chest Wall Chest: Positive normal inspection of the chest and symmetric chest movement; negative increased A/P diameter Resp lung sounds: Positive clear to auscultation, diminished, normal expiratory time and normal respiratory effort; negative wheezes, rhonchi, rales, dullness to percussion or wheeze present on forced exhalation Cardio Cardiac: Positive regular rate, regular rhythm, S1 normal and S2 normal; negative murmur GI GI: Positive normal to inspection and obese; negative distended Genitourinary: Positive deferred Musc Musculoskeletal: Positive steady gait and ROM normal; negative kyphosis or scoliosis Skin Pulmonary Skin Exam: Positive intact and scaly (bilateral LE dry and scaly); negative rash, lesion, ulcers or erythema Pulses Pulse: Yes radial pulses present Extremities Extremities: Yes capillary refill normal, No clubbing, No cyanosis, Yes edema Location: lower extremity location: Bilateral pitting +1, Yes stasis dermatitis Neuro Neurologic: Yes conversant, Yes no focal neuro deficits, Yes normal concentration, Yes understands questions, Yes cooperative, Yes normal cognition, Yes normal coordination, Yes tremor Lymph Lymphatic: No lymphadenopathy, No tenderness, No cervical adenopathy Psych Appearance: Positive grossly normal, eye contact and well kempt Mental Status: Positive mental status grossly normal Affect: Positive flat Coding Level of Care Code Off vis,est,level 4 Diagnoses NILO (obstructive sleep apnea) G47.33 Super obesity E66.9 Shortness of breath R06.02 02/08/18 1406 <Electronically signed by Aicha WEN> Date Aicha WEN Cosigner Signature: Date (if applicable) CC: Wili Nelson DO ABDOMEN SINGLE VIEW Observed: 01/22/2018 Status: F Source: [place] 3:43 PM [facility] REPOSITORY [facility] Imaging Services [address] [place] [address] Abdomen Single View MR#: [id number] Acct: [id number] Name: MARYDAVID L Rep #: [id number] : 1940 M 77 From: Nic Dillon MD PCP: Wili Nelson DO Status: REG CLI Study: Abdomen Single View Date of Exam: 01/22/18 Exam# [id number] Ordering Dr: Wili Nelson DO STUDY: X-RAY - ABDOMEN/PELVIS REASON FOR EXAM: Male, 77 years old. Acute diarrhea and bowel incontinence TECHNIQUE: Single AP view of the abdomen / pelvis. COMPARISON: None. FINDINGS: There are nonspecific gaseous bowel loops. The visualized liver, spleen and kidneys are grossly normal in size . Normal soft tissue structures. The visualized osseous structures are essentially unremarkable. RAD/Abdomen Single View IMPRESSION: Nonspecific gas pattern. Electronically Signed: Nic Dillon MD at 15:27 EDT Tel , Service support , CC: Wili Omar BOATENG Lighting Engineer: Signed CBC W/DIFF, AUTOMATED Collected: 01/22/2018 Status: F Source: [place] 2:55 PM [facility] REPOSITORY TYPE CODE TESTS RESULT OUT OF RANGE REFERENCE UNITS LAB L100.1000 4.4-11.0 K/mm3 Normal WBC 5.8 LAB L100.1200 4.6-6.2 M/mm3 Low RBC 4.36 LAB L100.1300 13.0-16.5 g/dl Low HGB 12.6 LAB L100.1400 40-54 % Low HCT 37.8 LAB L100.1500 80-94 fL Normal MCV 86.7 LAB L100.1600 27.0-32.0 pg Normal MCH 28.9 LAB L100.1700 32-36 g/gl Normal MCHC 33.3 LAB L100.1810 11.6-14.6 % Normal RDW CV 13.1 LAB L100.1820 35.1-43.9 fl Normal RDW SD 40.6 LAB L100.1900 150-450 K/mm3 Normal PLT 230 LAB L100.2000 6.2-12.0 fl Normal MPV 10.4 LAB L100.2100 47-70 % High NEUT% 82.1 LAB L100.2200 19-41 % Low LY% 8.9 LAB L100.2300 0-10 % Normal MONO% 5.5 LAB L100.2400 0-5 % Normal EO% 2.9 LAB L100.2500 0-1 % Normal BASO% 0.3 LAB L100.2550 0.0-0.9 % Normal IM GRAN % 0.300 Result Comment: IG% - Immature Granulocytes (promyelocytes, myelocytes and metamyelocytes) > 1% indicates that a LEFT SHIFT is Present. LAB L100.2620 2.0-7.7 X10 3/uL Normal Absolute Neut 4.8 LAB L100.2720 0.83-4.51 X10 3/ul Low Absolute Lymph 0.52 LAB L100.4500 Normal SMEAR COMMENT SCANNED Result Comment: LYMPHOPENIA NOTED Performed By: #### L100.0100 #### [facility] [place], [address] COMPREHENSIVE METABOLIC Collected: 01/22/2018 Status: F Source: [place] SMITH 2:55 PM [facility] REPOSITORY TYPE CODE TESTS RESULT OUT OF RANGE REFERENCE UNITS LAB L501.0100 74-106 mg/dL High GLU 301 Result Comment: Glucose result greater than or equal to 200 mg/dL suggests DIABETES MELLITUS per A.D.A. criteria. Please note revised GLUCOSE reference range effective 2017. LAB L501.1000 7-18 mg/dL High BUN 26 LAB L501.1100 0.70-1.30 mg/dL High CREAT,SERUM 1.87 Result Comment: The validity of the calculated GFR AND GFRAA in patients over 70 years has not been determined. Clinical correlation is essential. LAB L501.1110 >60 mL/min Low EST GFR 37 Result Comment: Non- GFR Calc LAB L501.1115 >60 mL/min Low EST GFR - AA 45 Result Comment: GFR Calc LAB L501.1300 10-20 RATIO Normal BUN/CRE 13.9 LAB L501.1500 6.4-8.2 g/dL T Normal PROT 7.4 LAB L501.1800 3.2-5.0 g/dL Low ALB 2.6 LAB L501.1950 2.2-4.2 g/dL High GLOB 4.8 LAB L501.2000 0.9-2.4 RATIO Low A/G 0.5 LAB L501.2200 8.5-10.1 mg/dL Low CA 8.3 LAB L501.4100 15-37 U/L Normal AST 15 LAB L501.4305 45-117 U/L Normal ALK P 101 LAB L501.4405 16-61 U/L Normal ALT 20 LAB L501.4600 0.20-1.00 mg/dL T Normal BILI 0.40 LAB L501.5300 136-145 mmol/L NA Normal 136 LAB L501.5600 3.5-5.1 mmol/L K Normal 4.0 LAB L501.5900 98-107 mmol/L CL Normal 105 LAB L501.6100 21.0-32.0 mmol/L Normal CO2 24.0 LAB L501.6200 5-15 Normal GAP 7 Performed By: #### L500.4050, L501.6710 #### [facility] [address] [place], [address] CRP Collected: 01/22/2018 Status: F Source: [place] 2:55 PM [facility] REPOSITORY TYPE CODE TESTS RESULT OUT OF RANGE REFERENCE UNITS LAB L501.6710 0.0-3.0 mg/L High 78.20 C-REACTIVE PROT Result Comment: C-Reactive Protein (CRP) provides useful information for the diagnosis, therapy and monitoring of inflammatory processes and associated diseases. For the evaluation of Relative Risk for Cardiovascular Disease, a High Sensitivity CRP (HSCRP) should be ordered. Performed By: #### L500.4050, L501.6710 #### [facility] [address], [address] ERYTHROCYTE SED RATE Collected: 12/09/2017 Status: F Source: [place] 11:06 AM [facility] REPOSITORY TYPE CODE TESTS RESULT OUT OF RANGE REFERENCE UNITS LAB L102.0000 0-20 mm/hr High SED RATE 57 Performed By: #### L101.9900, L100.0100 #### [facility] [address] [place] [place], [address] CBC W/DIFF, AUTOMATED Collected: 12/09/2017 Status: F Source: [place] 11:06 AM [facility] REPOSITORY TYPE CODE TESTS RESULT OUT OF RANGE REFERENCE UNITS LAB L100.1000 4.4-11.0 K/mm3 Normal WBC 6.2 LAB L100.1200 4.6-6.2 M/mm3 Low RBC 4.59 LAB L100.1300 13.0-16.5 g/dl Normal HGB 13.0 LAB L100.1400 40-54 % Normal HCT 40.5 LAB L100.1500 80-94 fL Normal MCV 88.2 LAB L100.1600 27.0-32.0 pg Normal MCH 28.3 LAB L100.1700 32-36 g/gl Normal MCHC 32.1 LAB L100.1810 11.6-14.6 % Normal RDW CV 13.6 LAB L100.1820 35.1-43.9 fl Normal RDW SD 43.6 LAB L100.1900 150-450 K/mm3 Normal PLT 229 LAB L100.2000 6.2-12.0 fl Normal MPV 10.2 LAB L100.2100 47-70 % High NEUT% 72.9 LAB L100.2200 19-41 % Low LY% 17.6 LAB L100.2300 0-10 % Normal MONO% 6.5 LAB L100.2400 0-5 % Normal EO% 2.6 LAB L100.2500 0-1 % Normal BASO% 0.2 LAB L100.2550 0.0-0.9 % Normal IM GRAN % 0.200 Result Comment: IG% - Immature Granulocytes (promyelocytes, myelocytes and metamyelocytes) > 1% indicates that a LEFT SHIFT is Present. LAB L100.2620 2.0-7.7 X10 3/uL Normal Absolute Neut 4.5 LAB L100.2720 0.83-4.51 X10 3/ul Normal Absolute Lymph 1.09 Performed By: #### L101.9900, L100.0100 #### [facility] [address] [place], [address] BASIC METABOLIC Collected: 12/09/2017 Status: F Source: [place] PROFILE (BMP) 11:06 AM [facility] REPOSITORY TYPE CODE TESTS RESULT OUT OF RANGE REFERENCE UNITS LAB L501.0100 74-106 mg/dL High GLU 309 Result Comment: Glucose result greater than or equal to 200 mg/dL suggests DIABETES MELLITUS per A.D.A. criteria. Please note revised GLUCOSE reference range effective 2017. LAB L501.1000 7-18 mg/dL High BUN 29 LAB L501.1100 0.70-1.30 mg/dL High CREAT,SERUM 1.87 Result Comment: The validity of the calculated GFR AND GFRAA in patients over 70 years has not been determined. Clinical correlation is essential. LAB L501.1110 >60 mL/min Low EST GFR 37 Result Comment: Non- GFR Calc LAB L501.1115 >60 mL/min Low EST GFR - AA 45 Result Comment: GFR Calc LAB L501.1300 10-20 RATIO Normal BUN/CRE 15.5 LAB L501.2200 8.5-10.1 mg/dL CA Normal 8.8 LAB L501.5300 136-145 mmol/L NA Normal 141 LAB L501.5600 3.5-5.1 mmol/L K Normal 4.2 LAB L501.5900 98-107 mmol/L CL Normal 105 LAB L501.6100 21.0-32.0 mmol/L Normal CO2 28.0 LAB L501.6200 5-15 Normal GAP 8 Performed By: #### L500.2500, L501.3620, L501.5200 #### [facility] [address] [place], [address] CPK TOTAL, CREATINE Collected: 12/09/2017 Status: F Source: [place] KINASE 11:06 AM [facility] REPOSITORY TYPE CODE TESTS RESULT OUT OF RANGE REFERENCE UNITS LAB L501.3620 39-308 U/L Normal CPK TOTAL 72 Performed By: #### L500.2500, L501.3620, L501.5200 #### [facility] [address] [place], [address] MAGNESIUM Collected: 12/09/2017 Status: F Source: [place] 11:06 AM [facility] REPOSITORY TYPE CODE TESTS RESULT OUT OF RANGE REFERENCE UNITS LAB L501.5200 1.6-2.6 mg/dL Normal MG 2.1 Performed By: #### L500.2500, L501.3620, L501.5200 #### [facility] [address] [place], [address] CNOV Observed: 12/03/2017 Status: COMPLETED Source: [place] 2:40 PM [facility] REPOSITORY Office Visit (PODIWS) DAVID LOUIS ([id number]) 1940 M Date Time Provider Department 12/03/17 2:40 PM MOE BOLAÑOS During your visit today, we recorded the following information about you: Moe Bolaños DPM 12/03/2017 2:10 PM Signed Moe Bolaños DPM Department of Podiatry [address] [place] [address] Dept: [phone] Dept Diabetic Nail Care SUBJECTIVE: Follow up office visit: This 77 year old male presents to clinic c/o painful toenails. Patient states that the nails are especially painful with shoe gear and pressure. Patient admits to being diabetic and did not check his blood sugar this AM. Patient denies claudication type symptoms when walking. No other pedal complaints at this time. No change in medications or medical history since last visit. OBJECTIVE: Patient presents to clinic ambulating in diabetic shoes. Vasc: DP and PT pulses are palpable bilateral. CFT is less than 5 seconds bilateral. Skin temperature is warm to warm proximal to distal bilateral. There is moderate edema or varicosities noted. Hair growth present. Neuro: Protective sensation is intact to the foot and toes when tested with the 5.07 SWM bilateral. Vibratory sensation is decreased at the hallux bilateral. significant neurological defecits. Derm: Inspection and palpation performed. Nails 1-5 b/l are painful, discolored-yellow, thick, crumbly, dystrophic and with subungal debris. Skin is of normal turgor and texture. Hyperkeratosis not present. NO ulcerations, scars, verruca or other lesions noted. Ortho: Ankle joint DF is decreased with the knee extended and decreased with knee flexed. No pain or crepitus noted. STJ, MTJ ROM are full and free of pain or crepitus. Muscle strength is 5/5 for dorsiflexors, plantarflexors, inverters, everters. 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 Nails 1-5 bilateral were debrided in length and thickness. Patient was instructed on the continued importance of diabetic foot care along with proper diet and keeping their blood sugar under control to prevent complications. Patient is to RTC in 3-4 months. 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 METOPROLOL SUCCINATE ER 50 MG* Take 50 mg by mouth once franchesca* LOSARTAN 100 MG TABLET Take 100 mg by mouth once keshav* LEVEMIR FLEXTOUCH U-100 INSUL* NOVOLOG FLEXPEN U-100 INSULIN* WARFARIN 1 MG TABLET WARFARIN 6 MG TABLET FLUTICASONE 50 MCG/ACTUATION * Use 1 Acampo in each nostril d* AMMONIUM LACTATE-SODIUM LACTA* Apply 1 application to affect* BLOOD SUGAR DIAGNOSTIC STRIPS Test blood sugar(s) 3 times d* MUPIROCIN 2 % TOPICAL OINTMENT Apply 1 application to affect* ATORVASTATIN 20 MG TABLET Take 1 tablet by mouth once d* BUPROPION HCL SR 150 MG TABLE* Take 1 tablet by mouth twice * ALBUTEROL SULFATE HFA 90 MCG/* Inhale 2 Puffs as instructed * IPRATROPIUM-ALBUTEROL 0.5 MG-* Inhale 3 mL as instructed connie* INSULIN SYRINGE-NEEDLE U-100 * Use as directed to inject ins* PEN NEEDLE, DIABETIC 31 GAUGE* 1 Each as needed. INSULIN REGULAR HUMAN U-500C* Use 30 units with breakfast, * AMLODIPINE 5 MG TABLET Take 1.5 tablets by mouth onc* WARFARIN 5 MG TABLET Alternate 5mg and 7.5mg every* INSULIN GLARGINE (U-100) 100 * Inject 40 Units subcutaneousl* BIPAP Change: BIPAP 23/18 cmH2O, w* FLUTICASONE 250 MCG-SALMETERO* Inhale 1 Puff as instructed t* INSULIN SYRINGES (DISPOSABLE)* USE DIRECTED More... Problem List As Of Date 12/03/2017 Noted Resolved Essential hypertension, benign [I10] INVALID FOR* Priority: B Other and unspecified hyperlipidemia [E78.5] INVALID FOR* Priority: A Edema [R60.9] INVALID FOR* Family history of malignant neoplasm of gastroi*INVALID FOR* More... Unspecified sleep apnea [G47.30] INVALID FOR* Priority: B Morbid obesity [E66.01] INVALID FOR* Priority: A Depressive disorder, not elsewhere classified [*INVALID FOR* Priority: C Chronic kidney disease, stage III (moderate) [N*INVALID FOR* Priority: B Unspecified constipation [K59.00] INVALID FOR* Other pulmonary embolism and infarction [I26.99]INVALID FOR* Priority: Severe More... Chronic venous hypertension with ulcer [I87.319*INVALID FOR* More... DM w/o complication type II, uncontrolled [E11.*INVALID FOR* Priority: A More... Stasis leg ulcer [I83.009, L97.909] INVALID FOR* Priority: B More... COPD (chronic obstructive pulmonary disease) [J*INVALID FOR* Priority: B More... UTI (lower urinary tract infection) [N39.0] INVALID FOR*12/29/2011 Priority: Moderate More... Venous insufficiency [I87.2] Tobacco use disorder [F17.200] INVALID FOR* More... 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 Chronic rhinitis [J31.0] INVALID FOR* Uncontrolled type 2 diabetes with neuropathy (H*INVALID FOR* Onychomycosis [B35.1] INVALID FOR* Pain in toe of left foot [M79.675] INVALID FOR* Pain in toe of right foot [M79.674] INVALID FOR* Encounter Status:Closed by TESTRAKE, MOE DPM on 12/03/17 PROGRESS Observed: 12/03/2017 Status: COMPLETED Source: [place] 1:49 PM [facility] REPOSITORY HNO ID: [id number] Author: Moe Bolaños Service: (none) Author Type: Physician Type: Progress Notes Filed: 12/03/2017 2:10 PM Note Text: Moe Bolaños DPM Department of Podiatry [address] [facility] [address] Dept: [phone] Dept Diabetic Nail Care SUBJECTIVE: Follow up office visit: This 77 year old male presents to clinic c/o painful toenails. Patient states that the nails are especially painful with shoe gear and pressure. Patient admits to being diabetic and did not check his blood sugar this AM. Patient denies claudication type symptoms when walking. No other pedal complaints at this time. No change in medications or medical history since last visit. OBJECTIVE: Patient presents to clinic ambulating in diabetic shoes. Vasc: DP and PT pulses are palpable bilateral. CFT is less than 5 seconds bilateral. Skin temperature is warm to warm proximal to distal bilateral. There is moderate edema or varicosities noted. Hair growth present. Neuro: Protective sensation is intact to the foot and toes when tested with the 5.07 SWM bilateral. Vibratory sensation is decreased at the hallux bilateral. significant neurological defecits. Derm: Inspection and palpation performed. Nails 1-5 b/l are painful, discolored-yellow, thick, crumbly, dystrophic and with subungal debris. Skin is of normal turgor and texture. Hyperkeratosis not present. NO ulcerations, scars, verruca or other lesions noted. Ortho: Ankle joint DF is decreased with the knee extended and decreased with knee flexed. No pain or crepitus noted. STJ, MTJ ROM are full and free of pain or crepitus. Muscle strength is 5/5 for dorsiflexors, plantarflexors, inverters, everters. 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 Nails 1-5 bilateral were debrided in length and thickness. Patient was instructed on the continued importance of diabetic foot care along with proper diet and keeping their blood sugar under control to prevent complications. Patient is to RTC in 3-4 months. Moe Bolaños DPM CBC W/DIFF, AUTOMATED Collected: 12/01/2017 Status: F Source: [place] 2:03 PM [facility] REPOSITORY TYPE CODE TESTS RESULT OUT OF RANGE REFERENCE UNITS LAB L100.1000 4.4-11.0 K/mm3 Normal WBC 9.6 LAB L100.1200 4.6-6.2 M/mm3 Normal RBC 4.84 LAB L100.1300 13.0-16.5 g/dl Normal HGB 13.8 LAB L100.1400 40-54 % Normal HCT 43.0 LAB L100.1500 80-94 fL Normal MCV 88.8 LAB L100.1600 27.0-32.0 pg Normal MCH 28.5 LAB L100.1700 32-36 g/gl Normal MCHC 32.1 LAB L100.1810 11.6-14.6 % Normal RDW CV 13.7 LAB L100.1820 35.1-43.9 fl High RDW SD 44.0 LAB L100.1900 150-450 K/mm3 Normal PLT 233 LAB L100.2000 6.2-12.0 fl Normal MPV 9.9 LAB L100.2100 47-70 % High NEUT% 83.2 LAB L100.2200 19-41 % Low LY% 7.8 LAB L100.2300 0-10 % Normal MONO% 7.9 LAB L100.2400 0-5 % Normal EO% 0.7 LAB L100.2500 0-1 % Normal BASO% 0.2 LAB L100.2550 0.0-0.9 % Normal IM GRAN % 0.200 Result Comment: IG% - Immature Granulocytes (promyelocytes, myelocytes and metamyelocytes) > 1% indicates that a LEFT SHIFT is Present. LAB L100.2620 2.0-7.7 X10 3/uL High Absolute Neut 8.0 LAB L100.2720 0.83-4.51 X10 3/ul Low Absolute Lymph 0.75 Performed By: #### L100.0100 #### [facility] [address] [place], [address] BASIC METABOLIC Collected: 12/01/2017 Status: F Source: [place] PROFILE (BMP) 2:03 PM [facility] REPOSITORY TYPE CODE TESTS RESULT OUT OF RANGE REFERENCE UNITS LAB L501.0100 74-106 mg/dL High GLU 334 Result Comment: Glucose result greater than or equal to 200 mg/dL suggests DIABETES MELLITUS per A.D.A. criteria. Please note revised GLUCOSE reference range effective 2017. LAB L501.1000 7-18 mg/dL High BUN 28 LAB L501.1100 0.70-1.30 mg/dL High CREAT,SERUM 1.88 Result Comment: The validity of the calculated GFR AND GFRAA in patients over 70 years has not been determined. Clinical correlation is essential. LAB L501.1110 >60 mL/min Low EST GFR 37 Result Comment: Non- GFR Calc LAB L501.1115 >60 mL/min Low EST GFR - AA 45 Result Comment: GFR Calc LAB L501.1300 10-20 RATIO Normal BUN/CRE 14.9 LAB L501.2200 8.5-10.1 mg/dL CA Normal 8.9 LAB L501.5300 136-145 mmol/L NA Normal 137 LAB L501.5600 3.5-5.1 mmol/L K Normal 4.3 LAB L501.5900 98-107 mmol/L CL Normal 102 LAB L501.6100 21.0-32.0 mmol/L Normal CO2 26.0 LAB L501.6200 5-15 Normal GAP 9 Performed By: #### L500.2500 #### [facility] [address] [place], [address] HEMOGLOBIN A1C Collected: 12/01/2017 Status: F Source: [place] 2:03 PM [facility] REPOSITORY TYPE CODE TESTS RESULT OUT OF RANGE REFERENCE UNITS LAB L501.9985 4.2-6.3 % High HGB A1C 9.8 Performed By: #### L501.9985 #### [facility] [address] [place] [place], [address] DISCHARGE SUMMARY Observed: 11/19/2017 Status: F Source: [place] 3:42 PM [facility] REPOSITORY [facility] Medical Records Department [address] [place] [address] Discharge Summary 11/19/17 1224 MR#: [id number] Acct: [id number] Name: DAVID LOUIS Rep #: [id number] : 1940 76 From: Willam Patel MD PCP: Wili Nelson DO Status: DIS IN Y Location: FL3 CK040-3 Discharge Date and Diagnosis Date of Admission: 11/14/17 Date of Discharge: 11/19/17 - Secondary Discharge Diagnosis Chronic Problems (Last Reviewed 09/11/17 @ 11:00 by Aicha Szymanski NP-Alisha) Thromboembolism (Chronic) BPH (benign prostatic hyperplasia) (Chronic) Super obesity (Chronic) Debility (Chronic) Noncompliance (Chronic) with CPAP and follow up and with diet COPD (chronic obstructive pulmonary disease) (Chronic) Type II diabetes mellitus, uncontrolled (Chronic) History of depression (Chronic) History of other venous thrombosis and embolism (Chronic) HLD (hyperlipidemia) (Chronic) HTN (hypertension) (Chronic) NILO (obstructive sleep apnea) (Chronic) Chronic renal failure, stage 3 (moderate) (Chronic) Bifascicular bundle branch block (Chronic) Colon polyps (Chronic) Family history of colon cancer (Chronic) Hospital Course and Treatment Operations: None Summary of Care Provided: This is a 76 years old male patient admitted because of hematuria secondary to Coumadin induced coagulopathy in addition to acute complicated UTI/acute cystitis. Culture grew Pseudomonas and infectious disease recommended IV Zosyn and fosfomycin at discharge. He Improve clinically with the management and he was discharged home in stable condition. 1 . Acute Pseudomonas cystitis; he was treated with IV Zosyn discharged on fosfomycin p.o 3g q72 hs x 3 doses as recommended by ID. 2 gross hematuria setting of supratherapeutic INR this has resolved. 3 DVT and PE ; we changed his Coumadin to Eliquis . 4 type 2 diabetes mellitus; 6 stage III chronic kidney disease; we will continue to monitor renal parameters closely. 7 Chronic respiratory failure from COPD; we will continue on supplemental oxygen. 8. Obstructive sleep apnea; on HS BiPAP. physical exam at the time of discharge; vital signs were stable. He was alert and oriented to time place and person. He did not appear to be any form of distress. S1 and S2 heard no murmur or gallop Lung exam was clear to auscultation with no adventitious sounds. Abdomen was soft nontender with normal bowel sounds. extremity exam did not reveal any edema, palpable pulses bilaterally. Neurologic exam was grossly intact. Discharge Diet: No Restrictions Discharge Activity: Return to Normal Activity Home Medications: Medications to take at Discharge Atorvastatin Calcium [Lipitor] 40 mg PO QHS 05/29/15 Citalopram [Celexa] 40 mg PO DAILY 05/29/15 Fluticasone 0.05% [Flonase Nasal Acampo] 1 spray NASAL BID PRN 05/29/15 Tamsulosin HCl [Flomax] 0.4 mg PO DAILY 07/08/16 Losartan Potassium [Cozaar] 100 mg PO DAILY 07/24/17 Nystatin Powder [Mycostatin Powder] 1 applic TOPICAL BID 08/06/17 Insulin Aspart [Novolog Flexpen] 13 units SC TIDAC #1 flexpen 08/11/17 Insulin Detemir [Levemir FlexPen] 20 units SC BID #1 insuln.pen 08/11/17 Metoprolol(XL)Succ [Toprol Xl (Beta Zen)] 50 mg PO DAILY #30 tab 08/11/17 Mineral Oil/Petrolatum,White [Eucerin] 1 applic TOPICAL BID@0600,2200 jar 08/11/17 Gabapentin [Neurontin] 100 mg PO BID 11/14/17 Albuterol Inhaler [Ventolin Hfa] 2 puff INHALATION Q6HWA.RT #1 inhaler 11/19/17 Apixaban [Eliquis] 5 mg PO BID #60 tab 11/19/17 Fosfomycin Tromethamine [Monurol] 3 gm PO Q72H #3 packet 11/19/17 Isosorbide Mononitrate [Imdur] 30 mg PO DAILY #30 tab 11/19/17 Following Prescrptions Were Given to Patient: Albuterol Inhaler [Ventolin Hfa] 2 puff INHALATION Q6HWA.RT #1 inhaler Fosfomycin Tromethamine [Monurol] 3 gm PO Q72H #3 packet Isosorbide Mononitrate [Imdur] 30 mg PO DAILY #30 tab Apixaban [Eliquis] 5 mg PO BID #60 tab Primary Care Physician: Wili Nelson DO [Primary Care Provider] - In 1 Week Medical Necessity - Tobacco Use Smoking Status: Former smoker Meaningful Use Info Meaningful Use Diagnoses (Choose all that apply): None applicable Code Visit Inpatient E AND M: 51089 Disch Hosp 11/19/17 1542 <Electronically signed by Willam Patel MD> Date Willam Patel MD Cosigner Signature (if applicable): Date CC: Willam Patel MD; Wili eNlson DO Signed DISCHARGE INSTRUCTION Observed: 11/19/2017 Status: F Source: [place] 12:24 PM [facility] RE[facility]ITORY [facility] Medical Records Department [address] [place] [address] Instructions for Home/Discharge Instructions 11/19/17 1223 MR#: [id number] Acct: [id number] Name: DAVID LOUIS Rep #: [id number] : 1940 76 From: Willam Patel MD PCP: Wili Nelson DO Status: ADM IN You will use the following diet at home:: Regular Discharge Activity: Return to Normal Activity Allergies/Adverse Reactions: Allergies MARGIE Inhibitors Allergy (Unknown, Verified 11/14/17 12:34) Unknown cefepime Allergy (Verified 11/14/17 12:34) Other WEAKNESS AND FALLING ipodate [Ipodate] Allergy (Verified 11/14/17 12:34) Shortness of breath levofloxacin [Levofloxacin] Allergy (Verified 11/14/17 12:34) Anaphylaxis lisinopril Allergy (Verified 11/14/17 12:34) Shortness of breath ofloxacin Allergy (Verified 11/14/17 12:34) Unknown Quinolones Allergy (Verified 11/14/17 12:34) Anaphylaxis Medications to take at Discharge Atorvastatin Calcium [Lipitor] 40 mg PO QHS 05/29/15 Citalopram [Celexa] 40 mg PO DAILY 05/29/15 Fluticasone 0.05% [Flonase Nasal Acampo] 1 spray NASAL BID PRN 05/29/15 Tamsulosin HCl [Flomax] 0.4 mg PO DAILY 07/08/16 Losartan Potassium [Cozaar] 100 mg PO DAILY 07/24/17 Nystatin Powder [Mycostatin Powder] 1 applic TOPICAL BID 08/06/17 Albuterol Inhaler [Ventolin Hfa] 2 puff INHALATION Q6HWA.RT #1 inhaler 08/11/17 Insulin Aspart [Novolog Flexpen] 13 units SC TIDAC #1 flexpen 08/11/17 Insulin Detemir [Levemir FlexPen] 20 units SC BID #1 insuln.pen 08/11/17 Metoprolol(XL)Succ [Toprol Xl (Beta Zen)] 50 mg PO DAILY #30 tab 08/11/17 Mineral Oil/Petrolatum,White [Eucerin] 1 applic TOPICAL BID@0600,2200 jar 08/11/17 Gabapentin [Neurontin] 100 mg PO BID 11/14/17 Apixaban [Eliquis] 5 mg PO BID #60 tab 11/19/17 Fosfomycin Tromethamine [Monurol] 3 gm PO Q72H #3 packet 11/19/17 Isosorbide Mononitrate [Imdur] 30 mg PO DAILY #30 tab 11/19/17 The following prescriptions were given: Fosfomycin Tromethamine [Monurol] 3 gm PO Q72H #3 packet Isosorbide Mononitrate [Imdur] 30 mg PO DAILY #30 tab Apixaban [Eliquis] 5 mg PO BID #60 tab Primary Care Physician: Wili Nelson DO [Primary Care Provider] - In 1 Week Proposed Discharge Date: 11/19/17 11/19/17 1224 <Electronically signed by Willam Patel MD> Date Willam Patel MD CC: Mau Bowser MD; Wili Nelson DO; Carlos King MD BEDSIDE GLUCOSE Collected: 11/19/2017 Status: F Source: [place] 11:26 AM [facility] REPOSITORY TYPE CODE TESTS RESULT OUT OF REFERENCE UNITS RANGE LAB L501.080 70-110 mg/dL High BEDSIDE GLU 290 Result Comment: MANAGEMENT OF PATIENT CARE PER NURSING PROTOCOL Performed By: #### L501.080 #### [facility] Point of Care [address] [place] [address] BEDSIDE GLUCOSE Collected: 11/19/2017 Status: F Source: [place] 8:52 AM [facility] REPOSITORY TYPE CODE TESTS RESULT OUT OF REFERENCE UNITS RANGE LAB L501.080 70-110 mg/dL High BEDSIDE GLU 237 Result Comment: MANAGEMENT OF PATIENT CARE PER NURSING PROTOCOL Performed By: #### L501.080 #### [facility] Point of Care [address] [place] [address] PROTHROMBIN TIME W/INR Collected: 11/19/2017 Status: F Source: [place] 5:24 AM [facility] REPOSITORY TYPE CODE TESTS RESULT OUT OF RANGE REFERENCE UNITS LAB L300.4150 11.7-14.9 SECONDS High PROTIME 15.6 LAB L300.4200 Normal INR 1.2 Performed By: #### L300.3900 #### [facility] [address] [place], [address] BASIC METABOLIC Collected: 11/19/2017 Status: F Source: [place] PROFILE (BMP) 5:24 AM [facility] REPOSITORY TYPE CODE TESTS RESULT OUT OF RANGE REFERENCE UNITS LAB L501.0100 74-106 mg/dL High GLU 217 Result Comment: Glucose result greater than or equal to 200 mg/dL suggests DIABETES MELLITUS per A.D.A. criteria. Please note revised GLUCOSE reference range effective 2017. LAB L501.1000 7-18 mg/dL High BUN 28 LAB L501.1100 0.70-1.30 mg/dL High CREAT,SERUM 1.69 Result Comment: The validity of the calculated GFR AND GFRAA in patients over 70 years has not been determined. Clinical correlation is essential. LAB L501.1110 >60 mL/min Low EST GFR 42 Result Comment: Non- GFR Calc LAB L501.1115 >60 mL/min Low EST GFR - AA 51 Result Comment: GFR Calc LAB L501.1255 ml/min Normal Estimated CRCL 40.82 LAB L501.1300 10-20 RATIO Normal BUN/CRE 16.6 LAB L501.2200 8.5-10 mg/dL Low .1 CA 8.2 LAB L501.5300 136-14 mmol/L Normal 5 NA 141 LAB L501.5600 3.5-5. mmol/L Normal 1 K 4.3 LAB L501.5900 98-107 mmol/L High CL 109 LAB L501.6100 21.0-3 mmol/L Normal 2.0 CO2 23.0 LAB L501.6200 5-15 Normal GAP 9 Performed By: #### L500.2500 #### [facility] [address] [place], [address] CBC W/DIFF, AUTOMATED Collected: 11/19/2017 Status: F Source: [place] 5:24 AM [facility] REPOSITORY TYPE CODE TESTS RESULT OUT OF RANGE REFERENCE UNITS LAB L100.1000 4.4-11.0 K/mm3 Normal WBC 6.4 LAB L100.1200 4.6-6.2 M/mm3 Low RBC 3.90 LAB L100.1300 13.0-16.5 g/dl Low HGB 11.2 LAB L100.1400 40-54 % Low HCT 34.6 LAB L100.1500 80-94 fL Normal MCV 88.7 LAB L100.1600 27.0-32.0 pg Normal MCH 28.7 LAB L100.1700 32-36 g/gl Normal MCHC 32.4 LAB L100.1810 11.6-14.6 % Normal RDW CV 13.4 LAB L100.1820 35.1-43.9 fl Normal RDW SD 42.3 LAB L100.1900 150-450 K/mm3 Normal PLT 229 LAB L100.2000 6.2-12.0 fl Normal MPV 9.6 LAB L100.2100 47-70 % Normal NEUT% 64.7 LAB L100.2200 19-41 % Normal LY% 20.2 LAB L100.2300 0-10 % Normal MONO% 9.1 LAB L100.2400 0-5 % Normal EO% 5.0 LAB L100.2500 0-1 % Normal BASO% 0.5 LAB L100.2550 0.0-0.9 % Normal IM GRAN % 0.500 Result Comment: IG% - Immature Granulocytes (promyelocytes, myelocytes and metamyelocytes) > 1% indicates that a LEFT SHIFT is Present. LAB L100.2620 2.0-7.7 X10 3/uL Normal Absolute Neut 4.2 LAB L100.2720 0.83-4.51 X10 3/ul Normal Absolute Lymph 1.29 Performed By: #### L100.0100 #### [facility] [address] [place], [address] BEDSIDE GLUCOSE Collected: 11/18/2017 Status: F Source: [place] 10:15 PM [facility] REPOSITORY TYPE CODE TESTS RESULT OUT OF REFERENCE UNITS RANGE LAB L501.080 70-110 mg/dL High BEDSIDE GLU 295 Result Comment: MANAGEMENT OF PATIENT CARE PER NURSING PROTOCOL Performed By: #### L501.080 #### [facility] Point of Care [address] [facility] [place] [address] BEDSIDE GLUCOSE Collected: 11/18/2017 Status: F Source: [place] 3:42 PM [facility] REPOSITORY TYPE CODE TESTS RESULT OUT OF REFERENCE UNITS RANGE LAB L501.080 70-110 mg/dL High BEDSIDE GLU 218 Result Comment: MANAGEMENT OF PATIENT CARE PER NURSING PROTOCOL Performed By: #### L501.080 #### [facility] Point of Care [address] [facility] [place] [address] 12 LEAD ELECTROCARDIOGRAM Observed: 11/18/2017 Status: F Source: [place] 2:20 PM [facility] REPOSITORY [facility] Cardiovascular Services [address] [place] [address] 12 Lead EKG 11/14/17 1301 MR#: [id number] Acct: [id number] Name: DAVID LOUIS Rep #: [id number] : 1940 76 From: Ady Cabello MD Attending Dr: Willam Patel MD Status: ADM IN Ordering Dr: Naomi Hewitt MD Date: 11/14/17 Location: MS3 Sex: M C Admitted: 11/14/17 Test Reason : Blood Pressure : / mmHG Vent. Rate : 069 BPM Atrial Rate : 069 BPM P-R Int : 258 ms QRS Dur : 158 ms QT Int : 444 ms P-R-T Axes : 071 -73 021 degrees QTc Int : 475 ms Sinus rhythm with 1st degree A-V block Left axis deviation Right bundle branch block Lateral infarct , age undetermined Inferior infarct , age undetermined Abnormal ECG Confirmed by AI RAZO, ADY ([id number]), material expeditor RONEL NAVAS ([id number]) on 11/18/2017 2:20:07 PM Referred By: SJ Confirmed By:ADY CABELLO MD 11/18/17 1420 Date Ady Cabello MD CC: MD Aleksandra Hewitt; Willam Patel MD; Wili Nelson DO Signed BEDSIDE GLUCOSE Collected: 11/18/2017 Status: F Source: [place] 10:52 AM [facility] REPOSITORY TYPE CODE TESTS RESULT OUT OF REFERENCE UNITS RANGE LAB L501.080 70-110 mg/dL High BEDSIDE GLU 294 Result Comment: MANAGEMENT OF PATIENT CARE PER NURSING PROTOCOL Performed By: #### L501.080 #### [facility] Point of Care [address] [place] [address] BEDSIDE GLUCOSE Collected: 11/18/2017 Status: F Source: [place] 7:33 AM [facility] REPOSITORY TYPE CODE TESTS RESULT OUT OF REFERENCE UNITS RANGE LAB L501.080 70-110 mg/dL High BEDSIDE GLU 234 Result Comment: MANAGEMENT OF PATIENT CARE PER NURSING PROTOCOL Performed By: #### L501.080 #### [facility] Point of Care [address] [place] [address] CBC W/DIFF, AUTOMATED Collected: 11/18/2017 Status: F Source: [place] 6:16 AM [facility] REPOSITORY TYPE CODE TESTS RESULT OUT OF RANGE REFERENCE UNITS LAB L100.1000 4.4-11.0 K/mm3 Normal WBC 6.9 LAB L100.1200 4.6-6.2 M/mm3 Low RBC 4.16 LAB L100.1300 13.0-16.5 g/dl Low HGB 12.0 LAB L100.1400 40-54 % Low HCT 37.6 LAB L100.1500 80-94 fL Normal MCV 90.4 LAB L100.1600 27.0-32.0 pg Normal MCH 28.8 LAB L100.1700 32-36 g/gl Low MCHC 31.9 LAB L100.1810 11.6-14.6 % Normal RDW CV 13.8 LAB L100.1820 35.1-43.9 fl High RDW SD 44.5 LAB L100.1900 150-450 K/mm3 Normal PLT 236 LAB L100.2000 6.2-12.0 fl Normal MPV 9.3 LAB L100.2100 47-70 % Normal NEUT% 65.2 LAB L100.2200 19-41 % Low LY% 18.2 LAB L100.2300 0-10 % High MONO% 10.1 LAB L100.2400 0-5 % High EO% 5.3 LAB L100.2500 0-1 % Normal BASO% 0.6 LAB L100.2550 0.0-0.9 % Normal IM GRAN % 0.600 Result Comment: IG% - Immature Granulocytes (promyelocytes, myelocytes and metamyelocytes) > 1% indicates that a LEFT SHIFT is Present. LAB L100.2620 2.0-7.7 X10 3/uL Normal Absolute Neut 4.5 LAB L100.2720 0.83-4.51 X10 3/ul Normal Absolute Lymph 1.26 Performed By: #### L100.0100 #### [facility] [address] [facility] [place], [address] PROTHROMBIN TIME W/INR Collected: 11/18/2017 Status: F Source: [place] 6:16 AM [facility] REPOSITORY TYPE CODE TESTS RESULT OUT OF RANGE REFERENCE UNITS LAB L300.4150 11.7-14.9 SECONDS High PROTIME 15.1 LAB L300.4200 Normal INR 1.2 Performed By: #### L300.3900 #### [facility] [address] [place], [address] BASIC METABOLIC Collected: 11/18/2017 Status: F Source: [place] PROFILE (BMP) 6:16 AM [facility] REPOSITORY TYPE CODE TESTS RESULT OUT OF RANGE REFERENCE UNITS LAB L501.0100 74-106 mg/dL High GLU 236 Result Comment: Glucose result greater than or equal to 200 mg/dL suggests DIABETES MELLITUS per A.D.A. criteria. Please note revised GLUCOSE reference range effective 2017. LAB L501.1000 7-18 mg/dL High BUN 31 LAB L501.1100 0.70-1.30 mg/dL High CREAT,SERUM 1.85 Result Comment: The validity of the calculated GFR AND GFRAA in patients over 70 years has not been determined. Clinical correlation is essential. LAB L501.1110 >60 mL/min Low EST GFR 38 Result Comment: Non- GFR Calc LAB L501.1115 >60 mL/min Low EST GFR - AA 46 Result Comment: GFR Calc LAB L501.1255 ml/min Normal Estimated CRCL 37.29 LAB L501.1300 10-20 RATIO Normal BUN/CRE 16.8 LAB L501.2200 8.5-10 mg/dL Low .1 CA 8.3 LAB L501.5300 136-14 mmol/L Normal 5 NA 138 LAB L501.5600 3.5-5. mmol/L Normal 1 K 4.3 LAB L501.5900 98-107 mmol/L Normal CL 107 LAB L501.6100 21.0-3 mmol/L Normal 2.0 CO2 22.0 LAB L501.6200 5-15 Normal GAP 9 Performed By: #### L500.2500 #### [facility] [address] [place], [place], [address] BEDSIDE GLUCOSE Collected: 11/17/2017 Status: F Source: [place] 10:24 PM [facility] REPOSITORY TYPE CODE TESTS RESULT OUT OF REFERENCE UNITS RANGE LAB L501.080 70-110 mg/dL High BEDSIDE GLU 276 Result Comment: MANAGEMENT OF PATIENT CARE PER NURSING PROTOCOL Performed By: #### L501.080 #### [facility] Point of Care [address] [place] [address] BEDSIDE GLUCOSE Collected: 11/17/2017 Status: F Source: [place] 5:03 PM [facility] REPOSITORY TYPE CODE TESTS RESULT OUT OF REFERENCE UNITS RANGE LAB L501.080 70-110 mg/dL High BEDSIDE GLU 318 Result Comment: MANAGEMENT OF PATIENT CARE PER NURSING PROTOCOL Performed By: #### L501.080 #### [facility] Point of Care [address] [place] [address] BEDSIDE GLUCOSE Collected: 11/17/2017 Status: F Source: [place] 12:26 PM [facility] REPOSITORY TYPE CODE TESTS RESULT OUT OF REFERENCE UNITS RANGE LAB L501.080 70-110 mg/dL High BEDSIDE GLU 267 Result Comment: MANAGEMENT OF PATIENT CARE PER NURSING PROTOCOL Performed By: #### L501.080 #### [facility] Point of Care [address] [place] [address] CONSULTATION Observed: 11/17/2017 Status: F Source: [place] 12:23 PM [facility] REPOSITORY [facility] Medical Records Department [address] [facility] [address] Consultation 11/17/17 1218 MR#: [id number] Acct: [id number] Name: DAVID LOUIS Rep #: [id number] : 1940 76 From: Carlos King MD PCP: Wili Nelson DO Status: ADM IN [id number] Problem List (1) Cystitis Status: Acute Reason for Consult: uti Consulted by: Dr. Patel History of Present Illness: The patient is a 76 year old M with recurrent uti and chronic lane who presented with 4-5 days of bright red blood in urine with no clots present. No trauma to catheter or recent procedures. No fever or chills, but did have some mild lower abd pain and general malaise. Catheter not changed recently. No n/v/d. Came to ED, started on iv doxycycline. Blood in urine has resolved, otherwise not feeling better. Full ROS performed and neg except as noted above. - Medical History Past Medical History (Chronic Problems): Chronic Problems (Last Reviewed 09/11/17 @ 11:00 by BETTYE Aguilera) Thromboembolism (Chronic) BPH (benign prostatic hyperplasia) (Chronic) Super obesity (Chronic) Debility (Chronic) Noncompliance (Chronic) with CPAP and follow up and with diet COPD (chronic obstructive pulmonary disease) (Chronic) Type II diabetes mellitus, uncontrolled (Chronic) History of depression (Chronic) History of other venous thrombosis and embolism (Chronic) HLD (hyperlipidemia) (Chronic) HTN (hypertension) (Chronic) NILO (obstructive sleep apnea) (Chronic) Chronic renal failure, stage 3 (moderate) (Chronic) Bifascicular bundle branch block (Chronic) Colon polyps (Chronic) Family history of colon cancer (Chronic) Allergies/Adverse Reactions: Allergies MARGIE Inhibitors Allergy (Unknown, Verified 11/14/17 12:34) Unknown cefepime Allergy (Verified 11/14/17 12:34) Other WEAKNESS AND FALLING ipodate [Ipodate] Allergy (Verified 11/14/17 12:34) Shortness of breath levofloxacin [Levofloxacin] Allergy (Verified 11/14/17 12:34) Anaphylaxis lisinopril Allergy (Verified 11/14/17 12:34) Shortness of breath ofloxacin Allergy (Verified 11/14/17 12:34) Unknown Quinolones Allergy (Verified 11/14/17 12:34) Anaphylaxis Home Medications: Ambulatory Orders Medication Instructions Recorded Atorvastatin Calcium [Lipitor] 40 mg PO QHS 05/29/15 Citalopram [Celexa] 40 mg PO DAILY 05/29/15 - Social History SMOKING STATUS:: Former smoker Vital Signs Temp Pulse Resp BP Pulse Ox 98.4 F 77 18 135/62 H 94 11/17/17 09:55 11/17/17 10:07 11/17/17 09:55 11/17/17 10:07 11/17/17 09:55 Oxygen Delivery Method Room Air Weight: 177.6 kg Body Mass Index (BMI) 53.0 Laboratory Tests Past 24 Hrs WBC 6.8 RBC 3.99 L Hgb 11.5 L Hct 35.5 L MCV 89.0 MCH 28.8 MCHC 32.4 RDW 13.7 RDW Differential 43.4 WBC RBC Hgb Hct MCV MCH MCHC RDW RDW Differential Plt Count MPV Immature Gran % (Auto) Neut % (Auto) Lymph % (Auto) Park % (Auto) Eos % (Auto) - Other Studies Radiology: [] reviewed Other Studies: [] Route of nutrition/ use of supplements: [] Nutritional Intake: [] IV Site: [] Lane Catheter: [] - Physical Exam General: Alert, Oriented x3, Cooperative, No apparent distress HEENT: Atraumatic, PERRLA, EOMI Neck: Supple, No Nodes Lungs: Clear to auscultation, Normal air movement Cardiovascular: Regular rate, Regular Rhythm, No murmurs Abdomen: Soft, Non-Distended, Tender - mild suprapubic tenderness Extremities: Edema Skin: No rashes IV Site: Peripheral, without redness Musculoskeletal: No Tenderness to Palpation of Joints or Extremities Neurological: Cranial nerves II-XII grossly intact - Assessment/Plan Antibiotics: [] Assessment/Plan: [] PsA complicated uti - (+) suprapubic pain, malaise, heavy pyuria, heavy growth on UCx. Sx did not improve on doxy which has no PsA coverage. Has tolerated zosyn in the past, so will start now. May be candidate for po fosfomycin at discharge if sx improve on zosyn. Will follow, thank you, d/w primary team. 11/17/17 1223 <Electronically signed by Carlos King MD> Date Carlos King MD Cosigner Signature (if applicable): Date CC: Mau Bowser MD; Wili Nelson DO; Carlos King MD Signed BEDSIDE GLUCOSE Collected: 11/17/2017 Status: F Source: [place] 8:26 AM [facility] REPOSITORY TYPE CODE TESTS RESULT OUT OF REFERENCE UNITS RANGE LAB L501.080 70-110 mg/dL High BEDSIDE GLU 204 Result Comment: MANAGEMENT OF PATIENT CARE PER NURSING PROTOCOL Performed By: #### L501.080 #### [facility] Point of Care [address] [place] [address] CBC W/DIFF, AUTOMATED Collected: 11/17/2017 Status: F Source: [place] 5:30 AM [facility] REPOSITORY TYPE CODE TESTS RESULT OUT OF RANGE REFERENCE UNITS LAB L100.1000 4.4-11.0 K/mm3 Normal WBC 6.8 LAB L100.1200 4.6-6.2 M/mm3 Low RBC 3.99 LAB L100.1300 13.0-16.5 g/dl Low HGB 11.5 LAB L100.1400 40-54 % Low HCT 35.5 LAB L100.1500 80-94 fL Normal MCV 89.0 LAB L100.1600 27.0-32.0 pg Normal MCH 28.8 LAB L100.1700 32-36 g/gl Normal MCHC 32.4 LAB L100.1810 11.6-14.6 % Normal RDW CV 13.7 LAB L100.1820 35.1-43.9 fl Normal RDW SD 43.4 LAB L100.1900 150-450 K/mm3 Normal PLT 225 LAB L100.2000 6.2-12.0 fl Normal MPV 9.6 LAB L100.2100 47-70 % Normal NEUT% 63.9 LAB L100.2200 19-41 % Normal LY% 20.0 LAB L100.2300 0-10 % High MONO% 10.8 LAB L100.2400 0-5 % Normal EO% 4.3 LAB L100.2500 0-1 % Normal BASO% 0.3 LAB L100.2550 0.0-0.9 % Normal IM GRAN % 0.700 Result Comment: IG% - Immature Granulocytes (promyelocytes, myelocytes and metamyelocytes) > 1% indicates that a LEFT SHIFT is Present. LAB L100.2620 2.0-7.7 X10 3/uL Normal Absolute Neut 4.3 LAB L100.2720 0.83-4.51 X10 3/ul Normal Absolute Lymph 1.36 Performed By: #### L100.0100 #### [facility] [address] [place], [address] PROTHROMBIN TIME W/INR Collected: 11/17/2017 Status: F Source: [place] 5:30 AM [facility] REPOSITORY TYPE CODE TESTS RESULT OUT OF RANGE REFERENCE UNITS LAB L300.4150 11.7-14.9 SECONDS High PROTIME 15.9 LAB L300.4200 Normal INR 1.3 Performed By: #### L300.3900 #### [facility] [address] [place], [place], [address] BASIC METABOLIC Collected: 11/17/2017 Status: F Source: [place] PROFILE (BMP) 5:30 AM [facility] REPOSITORY TYPE CODE TESTS RESULT OUT OF RANGE REFERENCE UNITS LAB L501.0100 74-106 mg/dL High GLU 237 Result Comment: Glucose result greater than or equal to 200 mg/dL suggests DIABETES MELLITUS per A.D.A. criteria. Please note revised GLUCOSE reference range effective 2017. LAB L501.1000 7-18 mg/dL High BUN 28 LAB L501.1100 0.70-1.30 mg/dL High CREAT,SERUM 1.86 Result Comment: The validity of the calculated GFR AND GFRAA in patients over 70 years has not been determined. Clinical correlation is essential. LAB L501.1110 >60 mL/min Low EST GFR 38 Result Comment: Non- GFR Calc LAB L501.1115 >60 mL/min Low EST GFR - AA 46 Result Comment: GFR Calc LAB L501.1255 ml/min Normal Estimated CRCL 37.08 LAB L501.1300 10-20 RATIO Normal BUN/CRE 15.1 LAB L501.2200 8.5-10 mg/dL Low .1 CA 8.0 LAB L501.5300 136-14 mmol/L Normal 5 NA 138 LAB L501.5600 3.5-5. mmol/L Normal 1 K 4.1 LAB L501.5900 98-107 mmol/L Normal CL 106 LAB L501.6100 21.0-3 mmol/L Normal 2.0 CO2 23.0 LAB L501.6200 5-15 Normal GAP 9 Performed By: #### L500.2500 #### [facility] [address] [place], [place], [id number] BLOOD GASES BY [facility] Collected: 11/16/2017 Status: F Source: [place] 11:55 PM [facility] REPOSITORY TYPE CODE TESTS RESULT OUT OF RANGE REFERENCE UNITS LAB L9000.9990 Normal BLD GAS TYPE ART LAB L9001.1000 Normal SITE L Radial LAB L9001.1010 Normal ABIGAIL TEST POS LAB L9001.1050 O2 Normal Delivery Dev Bi / C PAP LAB L9001.1070 RR Normal 0 LAB L9001.1074 Normal FI02 21 LAB L9001.1088 Normal IPAP 18 LAB L9001.1090 Normal EPAP 12 LAB L9001.1104 Normal Results To HOSP MD LAB L9001.1105 Normal Time Given 2350 LAB L9001.1110 7.35-7.45 pH Normal - I-STAT 7.39 LAB L9001.1210 35-45 mmHg Normal pCO2 - ISTAT 37.2 LAB L9001.1310 75-100 mmHG Low PO2 I-STAT 70 LAB L9001.2300 22-26 mmol/L Normal HCO3 ISTAT 22.4 LAB L9001.2400 -2 to +2 mmol/L Low BE ISTAT -3 LAB L9001.2415 mmol/L Normal TOTAL CO2 24 ISTAT LAB L9001.2425 95-99 % Low SO2 ISTAT 94 Performed By: #### L9000.0800 #### [facility] Point of Care [address] [facility] [address] BEDSIDE GLUCOSE Collected: 11/16/2017 Status: F Source: [place] 9:12 PM [facility] REPOSITORY TYPE CODE TESTS RESULT OUT OF REFERENCE UNITS RANGE LAB L501.080 70-110 mg/dL High BEDSIDE GLU 279 Result Comment: MANAGEMENT OF PATIENT CARE PER NURSING PROTOCOL Performed By: #### L501.080 #### [facility] Point [facility] [address] [place] [address] BEDSIDE GLUCOSE Collected: 11/16/2017 Status: F Source: [place]II[place] 5:02 PM [facility] REPOSITORY TYPE CODE TESTS RESULT OUT OF REFERENCE UNITS RANGE LAB L501.080 70-110 mg/dL High BEDSIDE GLU 293 Result Comment: MANAGEMENT OF PATIENT CARE PER NURSING PROTOCOL Performed By: #### L501.080 #### [facility] Point of Care [address] [place] [address] BEDSIDE GLUCOSE Collected: 11/16/2017 Status: F Source: [place] 12:10 PM [facility] REPOSITORY TYPE CODE TESTS RESULT OUT OF REFERENCE UNITS RANGE LAB L501.080 70-110 mg/dL High BEDSIDE GLU 376 Result Comment: MANAGEMENT OF PATIENT CARE PER NURSING PROTOCOL Performed By: #### L501.080 #### [facility] Point of Care [address] [place] [address] BEDSIDE GLUCOSE Collected: 11/16/2017 Status: F Source: [place] 9:21 AM [facility] REPOSITORY TYPE CODE TESTS RESULT OUT OF REFERENCE UNITS RANGE LAB L501.080 70-110 mg/dL High BEDSIDE GLU 262 Result Comment: MANAGEMENT OF PATIENT CARE PER NURSING PROTOCOL Performed By: #### L501.080 #### [facility] Point of Care [address] [place] [address] CBC W/DIFF, AUTOMATED Collected: 11/16/2017 Status: F Source: [place] 6:50 AM [facility] REPOSITORY TYPE CODE TESTS RESULT OUT OF RANGE REFERENCE UNITS LAB L100.1000 4.4-11.0 K/mm3 Normal WBC 9.7 LAB L100.1200 4.6-6.2 M/mm3 Normal RBC 4.60 LAB L100.1300 13.0-16.5 g/dl Normal HGB 13.3 LAB L100.1400 40-54 % Normal HCT 40.1 LAB L100.1500 80-94 fL Normal MCV 87.2 LAB L100.1600 27.0-32.0 pg Normal MCH 28.9 LAB L100.1700 32-36 g/gl Normal MCHC 33.2 LAB L100.1810 11.6-14.6 % Normal RDW CV 13.6 LAB L100.1820 35.1-43.9 fl Normal RDW SD 41.5 LAB L100.1900 150-450 K/mm3 Normal PLT 268 LAB L100.2000 6.2-12.0 fl Normal MPV 9.3 LAB L100.2100 47-70 % High NEUT% 82.7 LAB L100.2200 19-41 % Low LY% 7.9 LAB L100.2300 0-10 % Normal MONO% 6.9 LAB L100.2400 0-5 % Normal EO% 1.9 LAB L100.2500 0-1 % Normal BASO% 0.2 LAB L100.2550 0.0-0.9 % Normal IM GRAN % 0.400 Result Comment: IG% - Immature Granulocytes (promyelocytes, myelocytes and metamyelocytes) > 1% indicates that a LEFT SHIFT is Present. LAB L100.2620 2.0-7.7 X10 3/uL High Absolute Neut 8.0 LAB L100.2720 0.83-4.51 X10 3/ul Low Absolute Lymph 0.76 Performed By: #### L100.0100 #### [facility] [address] [facility], [address] PROTHROMBIN TIME W/INR Collected: 11/16/2017 Status: F Source: [place] 6:50 AM [facility] REPOSITORY TYPE CODE TESTS RESULT OUT OF RANGE REFERENCE UNITS LAB L300.4150 11.7-14.9 SECONDS High PROTIME 16.1 LAB L300.4200 Normal INR 1.3 Performed By: #### L300.3900 #### [facility] [address] [facility], [address] BASIC METABOLIC Collected: 11/16/2017 Status: F Source: [place] PROFILE (BMP) 6:50 AM [facility] REPOSITORY TYPE CODE TESTS RESULT OUT OF RANGE REFERENCE UNITS LAB L501.0100 74-106 mg/dL High GLU 246 Result Comment: Glucose result greater than or equal to 200 mg/dL suggests DIABETES MELLITUS per A.D.A. criteria. Please note revised GLUCOSE reference range effective 2017. LAB L501.1000 7-18 mg/dL High BUN 22 LAB L501.1100 0.70-1.30 mg/dL High CREAT,SERUM 1.63 Result Comment: The validity of the calculated GFR AND GFRAA in patients over 70 years has not been determined. Clinical correlation is essential. LAB L501.1110 >60 mL/min Low EST GFR 44 Result Comment: Non- GFR Calc LAB L501.1115 >60 mL/min Low EST GFR - AA 53 Result Comment: GFR Calc LAB L501.1255 ml/min Normal Estimated CRCL 42.32 LAB L501.1300 10-20 RATIO Normal BUN/CRE 13.5 LAB L501.2200 8.5-10 mg/dL Normal .1 CA 8.5 LAB L501.5300 136-14 mmol/L Normal 5 NA 137 LAB L501.5600 3.5-5. mmol/L Normal 1 K 4.3 LAB L501.5900 98-107 mmol/L Normal CL 104 LAB L501.6100 21.0-3 mmol/L Normal 2.0 CO2 26.0 LAB L501.6200 5-15 Normal GAP 7 Performed By: #### L500.2500 #### [facility] [address] [place], [address] BEDSIDE GLUCOSE Collected: 11/15/2017 Status: F Source: PATRICIA 9:56 PM [facility] REPOSITORY TYPE CODE TESTS RESULT OUT OF REFERENCE UNITS RANGE LAB L501.080 70-110 mg/dL High BEDSIDE GLU 343 Result Comment: MANAGEMENT OF PATIENT CARE PER NURSING PROTOCOL Performed By: #### L501.080 #### [facility] Point of Care [address] [facility] [address] BEDSIDE GLUCOSE Collected: 11/15/2017 Status: F Source: PATRICIA 4:25 PM [facility] REPOSITORY TYPE CODE TESTS RESULT OUT OF REFERENCE UNITS RANGE LAB L501.080 70-110 mg/dL High BEDSIDE GLU 405 Result Comment: MANAGEMENT OF PATIENT CARE PER NURSING PROTOCOL Performed By: #### L501.080 #### [facility] Point of Care [address] [place] [address] BEDSIDE GLUCOSE Collected: 11/15/2017 Status: F Source: PATRICIA 12:06 PM [facility] REPOSITORY TYPE CODE TESTS RESULT OUT OF REFERENCE UNITS RANGE LAB L501.080 70-110 mg/dL High BEDSIDE GLU 308 Result Comment: MANAGEMENT OF PATIENT CARE PER NURSING PROTOCOL Performed By: #### L501.080 #### [facility] Point of Care [address] [place] [address] CBC W/DIFF, AUTOMATED Collected: 11/15/2017 Status: F Source: [place] 7:08 AM [facility] REPOSITORY TYPE CODE TESTS RESULT OUT OF RANGE REFERENCE UNITS LAB L100.1000 4.4-11.0 K/mm3 Normal WBC 7.0 LAB L100.1200 4.6-6.2 M/mm3 Low RBC 4.47 LAB L100.1300 13.0-16.5 g/dl Low HGB 12.5 LAB L100.1400 40-54 % Low HCT 38.5 LAB L100.1500 80-94 fL Normal MCV 86.1 LAB L100.1600 27.0-32.0 pg Normal MCH 28.0 LAB L100.1700 32-36 g/gl Normal MCHC 32.5 LAB L100.1810 11.6-14.6 % Normal RDW CV 13.4 LAB L100.1820 35.1-43.9 fl Normal RDW SD 42.0 LAB L100.1900 150-450 K/mm3 Normal PLT 224 LAB L100.2000 6.2-12.0 fl Normal MPV 9.2 LAB L100.2100 47-70 % High NEUT% 74.8 LAB L100.2200 19-41 % Low LY% 13.1 LAB L100.2300 0-10 % Normal MONO% 8.9 LAB L100.2400 0-5 % Normal EO% 2.6 LAB L100.2500 0-1 % Normal BASO% 0.3 LAB L100.2550 0.0-0.9 % Normal IM GRAN % 0.300 Result Comment: IG% - Immature Granulocytes (promyelocytes, myelocytes and metamyelocytes) > 1% indicates that a LEFT SHIFT is Present. LAB L100.2620 2.0-7.7 X10 3/uL Normal Absolute Neut 5.3 LAB L100.2720 0.83-4.51 X10 3/ul Normal Absolute Lymph 0.92 Performed By: #### L100.0100 #### [facility] [address] [place], [place], [id number] PROTHROMBIN TIME W/INR Collected: 11/15/2017 Status: F Source: [place] 7:08 AM [facility] REPOSITORY TYPE CODE TESTS RESULT OUT OF RANGE REFERENCE UNITS LAB L300.4150 11.7-14.9 SECONDS High PROTIME 22.7 LAB L300.4200 Normal INR 2.0 Performed By: #### L300.3900 #### [facility] [address] [place], [place], [id number] BASIC METABOLIC Collected: 11/15/2017 Status: F Source: PATRIC[place] PROFILE (BMP) 7:08 AM [facility] REPOSITORY TYPE CODE TESTS RESULT OUT OF RANGE REFERENCE UNITS LAB L501.0100 74-106 mg/dL High GLU 259 Result Comment: Glucose result greater than or equal to 200 mg/dL suggests DIABETES MELLITUS per A.D.A. criteria. Please note revised GLUCOSE reference range effective 2017. LAB L501.1000 7-18 mg/dL High BUN 20 LAB L501.1100 0.70-1.30 mg/dL High CREAT,SERUM 1.51 Result Comment: The validity of the calculated GFR AND GFRAA in patients over 70 years has not been determined. Clinical correlation is essential. LAB L501.1110 >60 mL/min Low EST GFR 48 Result Comment: Non- GFR Calc LAB L501.1115 >60 mL/min Low EST GFR - AA 58 Result Comment: GFR Calc LAB L501.1255 ml/min Normal Estimated CRCL 45.68 LAB L501.1300 10-20 RATIO Normal BUN/CRE 13.2 LAB L501.2200 8.5-10 mg/dL Low .1 CA 8.3 LAB L501.5300 136-14 mmol/L Normal 5 NA 137 LAB L501.5600 3.5-5. mmol/L Normal 1 K 4.4 Result Comment: Slight Hemolysis, Result may be falsely increased. LAB L501.5900 98-107 mmol/L Normal CL 105 LAB L501.6100 21.0-32.0 mmol/L Normal CO2 26.0 LAB L501.6200 5-15 Normal 6 GAP Performed By: #### L500.2500 #### [facility] [address] [place], [place], [id number] BEDSIDE GLUCOSE Collected: 11/15/2017 Status: F Source: PATRICIA 6:37 AM [facility] REPOSITORY TYPE CODE TESTS RESULT OUT OF REFERENCE UNITS RANGE LAB L501.080 70-110 mg/dL High BEDSIDE GLU 261 Result Comment: MANAGEMENT OF PATIENT CARE PER NURSING PROTOCOL Performed By: #### L501.080 #### [facility] Point of Care [address] [place], [place] [address] BEDSIDE GLUCOSE Collected: 11/14/2017 Status: F Source: [place] 10:22 PM [facility] REPOSITORY TYPE CODE TESTS RESULT OUT OF REFERENCE UNITS RANGE LAB L501.080 70-110 mg/dL High BEDSIDE GLU 295 Result Comment: MANAGEMENT OF PATIENT CARE PER NURSING PROTOCOL Performed By: #### L501.080 #### [facility] Point of Care [address] [place], [place] [id number] BEDSIDE GLUCOSE Collected: 11/14/2017 Status: F Source: [place] 5:58 PM [facility] REPOSITORY TYPE CODE TESTS RESULT OUT OF REFERENCE UNITS RANGE LAB L501.080 70-110 mg/dL High BEDSIDE GLU 350 Result Comment: MANAGEMENT OF PATIENT CARE PER NURSING PROTOCOL Performed By: #### L501.080 #### [facility] Point of Care [address] [place] [address] HISTORY AND PHYSICAL Observed: 11/14/2017 Status: F Source: [place] EXAM 4:53 PM [facility] Medical Records Department [address] [place] [address] History and Physical 11/14/17 1549 MR#: [id number] Acct: [id number] Name: DAVID LOUIS Rep #: [id number] : 1940 76 From: Winter Landaverde [employer] PCP: Wili Nelson DO Status: ADM IN Y Location: [place] [address] ADDENDUM by Kathy Tavares on 11/14/17 at 1652 Code Visit ATTENDING PHYSICIAN NOTE: I have seen and examined the patient independently and agree with the assessment, plan, history per Winter Landaverde as noted. Chief Complaint: Urinary Frequency, Hematuria The patient is a 76 y/o M w/ PMHx: NILO on q HS BIPAP, Chronic COPD with chronic hypoxic respiratory failure, Morbid Obesity, HTN, HLD, Hx Nephrolithiasis, BPH, History of Remote PE, Diabetes mellitus type II, Anxiety and Depression who presents to the [facility] ED on 11/14/17 w/ history of ongoing progressively worsening hematuria with urinary frequency and generalized weakness 2 days without any fever or chills associated. Patient does have history of nephrolithiasis in the past and has followed with Dr. Bowser. He denies any associated recent abdominal pain or flank pain with current onset. Discussed current presentation with supratherapeutic INR with recent subtherapeutic INR and increase of his regimen per the Coumadin clinic which he notes taking secondary to a very remote history of a single event pulmonary embolism but no provoked factor noted. Patient states that he is never to discuss discontinuing the Coumadin therapy with any physician. Upon admission primary care physician contacted, Dr. Wili Nelson and discussed patient's status with a very remote single history of PE at length. Discussed options which included 1, discontinuation and 2, transition to newer oral agent if affordable and primary care physician noted comfort with either pathway and to allow patient to make decision if he was willing to accept the risk to go off of anticoagulation. Discussed risks of discontinuation of anticoagulation therapy given morbidly obese status with possibility of recurrence and patient and family decision to discontinue Coumadin and avoid restarting an oral anticoagulant therapy understanding the need to closely follow symptoms and update their primary care physician. Patient does understand that if he does have recurrent VTE he would then likely need lifelong and at that point the newer oral agents could be investigated for for debility. In the emergency room workup included T 98.2, heart rate 71, BP 184/101, respiratory rate 18, 93% room air, CBC with WBC 6, hemoglobin 12.6, platelet 209 without market shift, INR 4.9, BMP with BUN/creatinine 19/1.56, glucose 245, troponin less than 0.015, BNP 22.9, urinalysis concerning for notable hematuria and possible UTI. Discussed patient's prior urine cultures at length with the ED physician given prior Pseudomonas, MRSA and strep urine infection most recently in September with decision for IV doxycycline which had been utilized prior per ID physician. Labs, Allergies, Home medications, Social Hx, PSurgHx, Family Hx per note below. Admission Review of Systems: CONSTITUTIONAL: No weight loss, fever, chills. + weakness or fatigue. HEENT: Eyes: No visual loss, blurred vision, double vision or yellow sclerae. Ears, Nose, Throat: No hearing loss, sneezing, congestion, runny nose or sore throat. SKIN: No rash or itching, lesions, wounds. CARDIOVASCULAR: No chest pain, chest pressure or chest discomfort, palpitations, edema, orthopnea, syncopal events. RESPIRATORY: + shortness of breath w/ exertion, No marked cough or sputum, wheezing, hemoptysis. GASTROINTESTINAL: No anorexia, nausea, vomiting or diarrhea, abdominal pain, melena, BRBPR. GENITOURINARY: + dysuria, frequency, hematuria. NEUROLOGICAL: No headache, dizziness, syncope, paralysis, ataxia, numbness or tingling in the extremities, focal weakness, change in bowel or bladder control, seizure. MUSCULOSKELETAL: + muscle, back pain, joint pain or stiffness. HEMATOLOGIC: + anemia, bleeding or bruising. LYMPHATICS: No enlarged nodes. No history of splenectomy. PSYCHIATRIC: + history of depression or anxiety. ENDOCRINOLOGIC: No reports of sweating, cold or heat intolerance. No polyuria or polydipsia. ALLERGIES: No history of asthma, hives, eczema or rhinitis. Admission VS: As noted below. Physical Examination: General: awake, alert, oriented x 3 and cooperative, seated upright in the ED bed in no apparent distress. Skin: normal color, turgor, no icterus, cyanosis, mild intertrigo in the groin and axilla regions and notable bilateral lower extremity chronic venous stasis skin changes. HEENT: AT/NC, EOMI, PERRLA, MMM, no carotid bruits or JVD noted although habitus does make examination difficult with thickened neck. Lungs: Diminished breath sounds bilaterally, greater bases, moderate effort, no rales, ronchi or wheezing. Heart: Regular rate and rhythm; no gallop, rub audible. Abdomen: soft, morbidly obese, intertrigo in the folds noted, no suprapubic tenderness or generally NTTP, ND, normal BS, no HSM; however, habitus makes examination difficult. : Notable ongoing hematuria and obvious clots. Extremities: no cyanosis, clubbing, bilateral lower extremity ankle to distal espinosa edema with chronic venous stasis skin changes. Neurological: patient awake, alert, oriented x 3; cognitive function intact; pupils equally reactive to light and accomodation; cranial nerves II-XII grossly normal, moving all 4 extremities, no focal deficits, strength moderately to severely globally decreased secondary to acute presentation. Psychiatric: affect appears normal, no acute evidence of depressive or anxiety feelings. Assessment and Plan: The patient is a 76 y/o M w/ PMHx: NILO on q HS BIPAP, Chronic COPD with chronic hypoxic respiratory failure, Morbid Obesity, HTN, HLD, Hx Nephrolithiasis, BPH, History of Remote PE, Diabetes mellitus type II, Anxiety and Depression who presents to the [facility] ED on 11/14/17 w/ history of ongoing progressively worsening hematuria with urinary frequency and generalized weakness 2 days without any fever or chills associated. (1) Acute Suspected Complicated Urinary Tract Infection w/ Acute Normocytic Anemia secondary to Hematuria, Prior UCx w/ Pseudomonas, MRSA: Will admit to [facility] upon ED evaluation remarkable but no marked bacteria although still concerning given presentation, pending UCx, monitor I/Os, continue IV Doxycycline w/ transition as able pending sensitivities and speciation or per discussion ID consulted and pending. Given notable clots will place 3-wavy lane and perform continuous bladder irrigation with consultation requested to Urology additionally. Discussed as noted coumadin at length with patient, his family and his PCP and at this time will plan discontinuation of oral anticoagulant agent. Vitamin K 5 mg po x 1 administered. Trend INR. 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 Wili Nelson and discussed patient's status with a very remote single history of PE at length. Discussed options which included 1, discontinuation and 2, transition to newer oral agent if affordable and primary care physician noted comfort with either pathway and to allow patient to make decision if he was willing to accept the risk to go off of anticoagulation. Discussed risks of discontinuation of anticoagulation therapy given morbidly obese status with possibility of recurrence and patient and family decision to discontinue Coumadin and avoid restarting an oral anticoagulant therapy understanding the need to closely follow symptoms and update their primary care physician. Patient does understand that if he does have recurrent VTE he would then likely need lifelong and at that point the newer oral agents could be investigated for for debility. Additional Co-morbidities: Hypertension: Continue home regimen including losartan, metoprolol, PRN hydralazine. Hyperlipidemia: Continue home statin regimen. Diabetes mellitus type II: Hold oral home regimen, continue home insulin regimen, ADA diet, accu checks w/ ISS, nutrition consulted. Chronic COPD with hypoxic respiratory failure: Will maintain on home oxygen supplementation, continue ATC duonebs, PRN albuterol, HOB, IS parameters. Morbid Obesity: Weight loss and lifestyle changes encouraged, nutrition consulted. Chronic Kidney Disease Stage III: Admission BUN/Cr 10/07.56, baseline renal function 1.6-1.8, repeat BMP in AM. Anxiety and depression: Continue home Celexa regimen. NILO: Continue home nightly BiPAP. Intertrigo: TID nystatin powder. BPH: Continue on Flomax regimen. Inpatient E AND M: 40302 Init Hosp L3 11/14/17 5053 <Electronically signed by Kathy Tavares > Date Kathy Tavares cc: BETTYE Landaverde; Kathy Tavares; Wili Nelson DO * Signed Problem List (1) Thromboembolism Status: Chronic (2) MRSA (methicillin resistant staph aureus) culture positive Status: Resolved (3) BPH (benign prostatic hyperplasia) Status: Chronic (4) Super obesity Status: Chronic (5) Cystitis Status: Acute (6) Debility Status: Chronic (7) Noncompliance Status: Chronic Comment: with CPAP and follow up and with diet (8) History of kidney stones Status: Resolved (9) COPD (chronic obstructive pulmonary disease) Status: Chronic (10) Type II diabetes mellitus, uncontrolled Status: Chronic Qualifiers: (11) History of depression Status: Chronic (12) History of other venous thrombosis and embolism Status: Chronic (13) HLD (hyperlipidemia) Status: Chronic (14) HTN (hypertension) Status: Chronic (15) NILO (obstructive sleep apnea) Status: Chronic (16) Chronic renal failure, stage 3 (moderate) Status: Chronic (17) Bifascicular bundle branch block Status: Chronic (18) Colon polyps Status: Chronic (19) Family history of colon cancer Status: Chronic History of Present Illness Date of Admission: 11/14/17 Chief Complaint: Hematuria. The patient is a 76 year old M who presents to the emergency room with hematuria for 2 days. Patient states he has had lia red blood with clots in his urine continuously for 2 days. He complains of associated urinary frequency. Denies difficulty voiding, dysuria. Denies fever, chills. Denies flank pain, abdominal pain. Patient states he has had frequent urinary tract infections in the past, most recently in July 2017. He has seen urology, Dr. Bowser in the past. He denies other associated complaints. 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 Past Medical History Past Medical History (Chronic Problems): Chronic Problems (Last Reviewed 09/11/17 @ 11:00 by BETTYE Aguilera) Thromboembolism (Chronic) BPH (benign prostatic hyperplasia) (Chronic) Super obesity (Chronic) Debility (Chronic) Noncompliance (Chronic) with CPAP and follow up and with diet COPD (chronic obstructive pulmonary disease) (Chronic) Type II diabetes mellitus, uncontrolled (Chronic) History of depression (Chronic) History of other venous thrombosis and embolism (Chronic) HLD (hyperlipidemia) (Chronic) HTN (hypertension) (Chronic) NILO (obstructive sleep apnea) (Chronic) Chronic renal failure, stage 3 (moderate) (Chronic) Bifascicular bundle branch block (Chronic) Colon polyps (Chronic) Family history of colon cancer (Chronic) Allergies MARGIE Inhibitors Allergy (Unknown, Verified 11/14/17 12:34) Unknown cefepime Allergy (Verified 11/14/17 12:34) Other WEAKNESS AND FALLING ipodate [Ipodate] Allergy (Verified 11/14/17 12:34) Shortness of breath levofloxacin [Levofloxacin] Allergy (Verified 11/14/17 12:34) Anaphylaxis lisinopril Allergy (Verified 11/14/17 12:34) Shortness of breath ofloxacin Allergy (Verified 11/14/17 12:34) Unknown Quinolones Allergy (Verified 11/14/17 12:34) Anaphylaxis Home Medications: Ambulatory Orders Medication Instructions Recorded Atorvastatin Calcium [Lipitor] 40 mg PO QHS 05/29/15 Surgical History: - - Circumcision, excision of kidney stone Psychiatric History: Depression Lives: With Family Smoking Status: Former smoker Alcohol: None Drugs: None - *Family History Maternal History Items: Cancer - Patient's mother of cancer but he is not sure what kind of cancer. Paternal History Items: Cancer - Father of colon cancer Offspring History Items: - - He has a son who is morbidly obese and suffers from breathing problems and heart problems. Review of Systems Constitutional: Denies: Chills, Fever, Weight Change HEENT: Denies: Head Aches, Sinus Congestion, Sinus Drainage Cardiovascular: Denies: Chest Pain, Palpitations Respiratory: Denies: Cough, Shortness of breath at rest, Sputum production Gastrointestinal: Denies: Abdominal Pain, Nausea, Vomiting Genitourinary: Reports: Frequency, Hematuria. Denies: Dysuria, Hesitancy, Incontinence, Retention Musculoskeletal: Denies: Joint Pain, Joint Tenderness Skin: Denies: Rash, Wounds Neurological: Denies: Numbness, Tingling, Focal weakness Psychiatric: Reports: Depression Hematologic/ Lymphatic: Denies: Easy Bruising, Easy Bleeding VTE Information - Inpt Only VTE Present on Admission: No VTE Mechan Device Prophylaxis: SCD's VTE Pharm Prophylaxis ordered?: No Reason prophylaxis not ordered:: Medical Contraindication - Physical Exam General: Alert, Oriented x3, Cooperative, No apparent distress HEENT: Atraumatic, PERRLA, EOMI, Normocephalic Neck: Supple, No JVD, Negative Carotid Bruits Lungs: Clear to auscultation, Diminished Cardiovascular: Regular rate, Regular Rhythm, Normal S1, Normal S2, No murmurs Abdomen: Bowel Sounds Present, Soft, Non Tender, Non-Distended, Obese Extremities: No clubbing, No cyanosis, Capillary Refill Less than 3 Seconds, Edema - Bilateral lower extremities, chronic Skin: - - Chronic venous stasis dermatitis bilateral lower extremities, yeast appearing rash left underarm and abdominal folds. Musculoskeletal: No Tenderness to Palpation of Joints or Extremities Neurological: Cranial nerves II-XII grossly intact, Neuro grossly intact Psych/Mental Status: Flat Affect Vital Signs Temp Pulse Resp BP Pulse Ox 98.2 F 71 18 184/101 H 93 11/14/17 12:34 11/14/17 12:34 11/14/17 12:34 11/14/17 12:34 11/14/17 12:34 Oxygen Delivery Method Room Air Weight: 178.9 kg Body Mass Index (BMI) 53.4 Finger Stick Blood Glucose 216 Intake and Output for Last 24 Hours Output Total 250 / 250 Balance -250 / -250 Laboratory Tests Past 24 Hrs WBC RBC Hgb Hct MCV MCH Assessment/Plan 1. Acute cystitis with hematuria-insert Lane with continuous bladder irrigation. Patient has a history of Pseudomonas, MRSA and Streptococcus agalactiae urine culture. Previously seen by infectious disease. Begin oral doxycycline. Consult infectious disease. Consult urology. Urine culture obtained, pending. 2. Supratherapeutic INR-hold Coumadin regimen. 5 mg vitamin K 1. Repeat INR in a.m. 3. History of DVT/PE-Coumadin regimen on hold secondary to #2. 4. Type 2 diabetes mellitus-ADA diet. Accu-Cheks before meals at bedtime with sliding scale insulin. Continue home insulin regimen as well. Hemoglobin A1c July 2017 8.9%. 5. Hypertension-elevated on admission. Continue home regimen of losartan, metoprolol. Add hydralazine as needed. 6. Hyperlipidemia-continue statin. 7. COPD-no acute exacerbation. Continue albuterol aerosol as needed. 8. Chronic hypoxic respiratory-on home oxygen 2 L nasal canula. Continue supplemental oxygen to maintain O2 at or above 90%. 9. Obstructive sleep apnea- On bipap HS. Non-compliant in past. 10. Chronic kidney disease stage III-baseline creatinine 1.4- 1.8. Creatinine admission 1.5. Monitor BMP. 11. History of kidney stones status post lithotripsy 12. Chronic Venous Stasis Dermatitis-Margie wrap bilateral lower extremities. 13. Depression-continue home Celexa regimen. 14. Super Obesity- BMI 53.5. Encourage diet and lifestyle modifications. Nutrition consult. 15. Physical debility-physical therapy recommended mcc placement at previous admission July 2017. Patient uses walker/cane at home with ambulation. PT/OT. 16. BPH-continue home Flomax regimen. 17. Cutaneous candidiasis-topical nystatin 3 times daily. DVT prophylaxis-SCDs, pharmacologic prophylaxis contraindicated due to elevated INR. This patient was seen by BETTYE London under the supervision of Dr. Tavares. 11/14/17 5243 <Electronically signed by Winter WEN> Date Winter WEN 11/14/17 3448<Electronically signed by Kathy Tavares > Cosigner Signature: Date (if applicable) Kathy Tavares CC: BETTYE Landaverde; Kathy Tavares; Wili Nelson DO Signed EMERGENCY DEPARTMENT Observed: 11/14/2017 Status: F Source: [place] SUMMARY 4:06 PM [facility] Medical Records Department [address] [place] [address] Emergency Department Summary 11/14/17 1255 MR#: [id number] Acct: [id number] Name: DAVID LOUIS Rep #: [id number] : 1940 76 From: Naomi Hewitt MD PCP: Wili Nelson DO Status: REG ER - ER Visit Summary Date of Service: 11/14/17 Chief Complaint: [] Hematuria recent change to Coumadin dose History of Present Illness: The patient is a 76 M [] he has history of PE many many years ago, COPD diabetes,, frequent UTIs, urinary retention, chronic leg edema, chronic weakness, all of these conditions have been stable he recently 1 week ago had his INR checked was low and his Coumadin dose was increased the family is not sure what the current doses as the patient usually manages that they indicate that this morning he seemed to have hematuria and he was brought in for evaluation She indicates she is having no pain in any part of his body he is having no dysuria no abdominal pain he indicates he is able to void urine now with no hematuria, he has seen Dr. Berry of urology in the past and from his history he apparently has some issues related to urinary retention and frequent UTIs No change in his chronic shortness of breath or chronic fatigue state he states he feels fine to be at home he only came in because of the hematuria Physical Examination: [] Is a large gentleman with a BMI of about 55 he is awake and alert he is in no distress he has diminished lung sounds and heart tones are distant the abdomen is very obese but soft and nontender the exam shows normal male genitalia with non-tenderness the diaper he is wearing it does appear to have some red blood the penile meatus is not tender he did void spontaneously about 300 cc of urine appears concentrated but not obviously bloody his backs unremarkable his upper lower extremities reveal 4+ edema that is not new neurologically he is awake alert moving all 4 at his baseline Test Results: [] Emergency Department Course and Treatment: [] Patient's urine shows signs of UTI, his INR is 5, the rest of his labs are generally unremarkable as is a chest x-ray he has a history apparently of resistant UTIs I spoke with the hospitalist to review his records they will determine the appropriate antibiotics and they will arrange for admission further management is not sure of his current Coumadin dose she believes it is 2- 10 mg tablets a day to something the admission team will review with patient and Treatment Plan: [] Disposition: [] Stable Impression: [] Coumadin toxicity, hematuria, UTI generalized weakness COPD This note was generated with [employer] software. It may contain incorrect words, spelling, and punctuation that were not noted in review of the chart prior to signing ED Disposition - Plan for ED Patient: Chief Complaint: Complaint Referrals: Wili Nelson, DO [Primary Care Provider] - What to do if you have Problems For any increased pain, shortness of breath, bleeding, nausea or vomiting, chest pain, or any unexpected problems, contact your Primary Care Provider. Call [facility] ([phone]) or report to the closest Emergency Room. Call 911 if necessary. 11/14/17 1606 <Electronically signed by Naomi Hewitt MD> Date Naomi Hewitt MD Cosigner Signature (If Indicated): Date CC: Wili Nelson DO URINALYSIS, COMPLETE Collected: 11/14/2017 Status: F Source: [place] 2:44 PM [facility] REPOSITORY Order Comment: Order Date: 11/14/17 COLOR OF URINE MAY AFFECT DIPSTICK RESULTS. How was Urine Obtained? CLEAN CATCH TYPE CODE TESTS RESULT OUT OF RANGE REFERENCE UNITS LAB L400.3000 Yellow COLOR Normal Red LAB L400.3050 Clear Normal CLARITY Cloudy LAB L400.3200 Normal mg/dl High GLUCOSE, UR 250 LAB L400.3300 Negative mg/dL Normal BILIRUBIN URINE Negative LAB L400.3400 Negative mg/dl High 5 KETONE UR LAB L400.3465 1.002-1.030 Normal SP.GR. DIPSTX 1.015 LAB L400.3550 5.0 - 8.0 pH UR Normal 6.0 LAB L400.3600 Negative mg/dl High PROT DIPSTX 100 LAB L400.3700 Normal mg/dl Normal UROBILI Normal LAB L400.3750 Negative Normal NITRITE UR Negative LAB L400.3780 Negative /ul High OCCULT BLOOD-UR 250 LAB L400.3800 Negative /ul High LEUK ESTERASE 500 LAB L400.4050 0-5 /hpf WBC Normal >100 SEEN LAB L400.4100 0-5 /hpf > Normal RBC-UA 100 SEEN LAB L400.4150 0-5 /hpf SQUAM 0 Normal EPI SEEN LAB L400.4300 None Seen /hpf 0 Normal BACTERIA SEEN LAB L400.4350 <or=2+ /hpf 0 Normal MUCUS, URINE SEEN LAB L400.5200 None Seen /hpf Normal YEAST-URINE RARE Performed By: #### L400.0001 #### [facility] [address]. [place], [place], [address] Observed: 11/14/2017 Status: F Source: [place] CULTURE, URINE 2:44 PM [facility] REPOSITORY Order Date: 11/14/17 Urine Culture ORGANISM 1: Pseudomonas aeroginosa [place] Count >100,000 Pseudomonas aeroginosa: REACTION Aztreonam $$$ 18 I Pseudomonas aeroginosa: REACTION Amikacin $ 4 S Cefepime $ 4 S Ceftazidime *NF 4 S Ciprofloxacin $ 0.5 S Gentamicin $ <=1 S Imipenem *NF <=0.25 S Levofloxacin $ 4 I Meropenem $ 0.5 S Piperacillin/Tazobactam $$ 16 S Tobramycin $ <=1 S (NF) indicates non-formulary drug at [facility]. Approval by Infectious Disease Specialist required before non-formulary drugs may be ordered and/or dispensed. Performed By: #### M100.0650 #### [facility] [address] [place], [place], [address] CBC W/DIFF, AUTOMATED Collected: 11/14/2017 Status: F Source: [place] 1:10 PM [facility] REPOSITORY TYPE CODE TESTS RESULT OUT OF RANGE REFERENCE UNITS LAB L100.1000 4.4-11.0 K/mm3 Normal WBC 6.0 LAB L100.1200 4.6-6.2 M/mm3 Low RBC 4.50 LAB L100.1300 13.0-16.5 g/dl Low HGB 12.6 LAB L100.1400 40-54 % Low HCT 38.7 LAB L100.1500 80-94 fL Normal MCV 86.0 LAB L100.1600 27.0-32.0 pg Normal MCH 28.0 LAB L100.1700 32-36 g/gl Normal MCHC 32.6 LAB L100.1810 11.6-14.6 % Normal RDW CV 13.4 LAB L100.1820 35.1-43.9 fl Normal RDW SD 42.2 LAB L100.1900 150-450 K/mm3 Normal PLT 209 LAB L100.2000 6.2-12.0 fl Normal MPV 9.2 LAB L100.2100 47-70 % Normal NEUT% 69.6 LAB L100.2200 19-41 % Low LY% 18.2 LAB L100.2300 0-10 % Normal MONO% 8.9 LAB L100.2400 0-5 % Normal EO% 2.7 LAB L100.2500 0-1 % Normal BASO% 0.3 LAB L100.2550 0.0-0.9 % Normal IM GRAN % 0.300 Result Comment: IG% - Immature Granulocytes (promyelocytes, myelocytes and metamyelocytes) > 1% indicates that a LEFT SHIFT is Present. LAB L100.2620 2.0-7.7 X10 3/uL Normal Absolute Neut 4.1 LAB L100.2720 0.83-4.51 X10 3/ul Normal Absolute Lymph 1.08 Performed By: #### L100.0100 #### [facility] [address] [place], [address] BASIC METABOLIC Collected: 11/14/2017 Status: F Source: [place] PROFILE (BMP) 1:10 PM [facility] REPOSITORY TYPE CODE TESTS RESULT OUT OF RANGE REFERENCE UNITS LAB L501.0100 74-106 mg/dL High GLU 245 Result Comment: Glucose result greater than or equal to 200 mg/dL suggests DIABETES MELLITUS per A.D.A. criteria. Please note revised GLUCOSE reference range effective 2017. LAB L501.1000 7-18 mg/dL High BUN 19 LAB L501.1100 0.70-1.30 mg/dL High CREAT,SERUM 1.56 Result Comment: The validity of the calculated GFR AND GFRAA in patients over 70 years has not been determined. Clinical correlation is essential. LAB L501.1110 >60 mL/min Low EST GFR 46 Result Comment: Non- GFR Calc LAB L501.1115 >60 mL/min Low EST GFR - AA 56 Result Comment: GFR Calc LAB L501.1255 ml/min Normal Estimated CRCL 44.22 LAB L501.1300 10-20 RATIO Normal BUN/CRE 12.2 LAB L501.2200 8.5-10 mg/dL Low .1 CA 8.4 LAB L501.5300 136-14 mmol/L Normal 5 NA 137 LAB L501.5600 3.5-5. mmol/L Normal 1 K 4.3 LAB L501.5900 98-107 mmol/L Normal CL 106 LAB L501.6100 21.0-3 mmol/L Normal 2.0 CO2 24.0 LAB L501.6200 5-15 Normal GAP 7 Performed By: #### L500.2500, L501.4010 #### [facility] [facility] [place], [address] TROPONIN-I Collected: 11/14/2017 Status: F Source: [place] 1:10 PM [facility] REPOSITORY TYPE CODE TESTS RESULT OUT OF RANGE REFERENCE UNITS LAB L501.4010 <0.045 ng/mL Normal < 0.015 TROPONIN-I Result Comment: TROPONIN-I EXPECTED VALUES <0.045 Negative 0.045 - 0.590 Consistent with Cardiac Damage > OR = 0.600 Critical Value Not every elevated troponin is indicative of AL. These values should be used with clinical judgement in examining the patient's clinical picture for diagnosis. To establish a diagnosis of AL versus myocardial injury, there must be a demonstrated rise and/or fall in the troponin values, in addition to ischemic symptoms, EKG changes, new regional wall motion abnormality, and/or angiographical evidence. PLEASE NOTE: REFERENCE RANGES EDITED 17 Performed By: #### L500.2500, L501.4010 #### [facility] [address] [place], [address] PROTHROMBIN TIME W/INR Collected: 11/14/2017 Status: F Source: [place] 1:10 PM [facility] REPOSITORY TYPE CODE TESTS RESULT OUT OF REFERENCE UNITS RANGE LAB L300.4150 11.7-14.9 SECONDS High PROTIME 46.2 LAB L300.4200 High alert INR 4.9 Result Comment: CRITICAL VALUE VERIFIED. CALLED TO BRITTNI CANTU 11/14/17 1344 Winter Mckeon. RESULTS READ BACK BY SAME . Performed By: #### L300.3900 #### [facility] [address], [address] BNP,B-TYPE NATRIURETIC Collected: 11/14/2017 Status: F Source: [place] PEPTIDE 1:10 PM [facility] REPOSITORY TYPE CODE TESTS RESULT OUT OF RANGE REFERENCE UNITS LAB L503.6620 0-100 pg/mL Normal B-TYPE 22.9 GUERRERO PEP Performed By: #### L503.6620 #### [facility] [address] [place], [address] MAGNESIUM Collected: 11/14/2017 Status: F Source: [place] 1:10 PM [facility] REPOSITORY TYPE CODE TESTS RESULT OUT OF RANGE REFERENCE UNITS LAB L501.5200 1.6-2.6 mg/dL Normal MG 2.0 Performed By: #### L501.5200 #### [facility] [address] [place], [address] CHEST 1 VIEW Observed: 11/14/2017 Status: F Source: [place] (PORTABLE) 1:09 PM [facility] REPOSITORY [facility] Imaging Services [address] [place] [address] Chest 1 View (Portable) MR#: [id number] Acct: [id number] Name: DAVID LOUIS Rep #: [id number] : 1940 M 76 From: Antony Layne MD PCP: Wili Nelson DO Status: PRE ER Study: Chest 1 View (Portable) Date of Exam: 11/14/17 Exam# [id number] Ordering Dr: Naomi Hewitt MD STUDY: X-RAY CHEST REASON FOR EXAM: Male, 76 years old. Increased shortness of breath TECHNIQUE: The chest was obtained COMPARISON: November 05, 2017 chest radiograph FINDINGS: Mild cardiomegaly aortic tortuosity. No lung consolidation or pneumothorax. Osseous structures demonstrate no acute abnormalities. No pleural effusion. Pleural-based opacity along the periphery of the right lung noted which appears stable since May 29, 2015 IMPRESSION: Redemonstration of cardiomegaly. No focal airspace consolidation. Electronically Signed: Antony Layne, at 13:30 EDT Tel , Service support , RAD/Chest 1 View (Portable) CC: MD Aleksandra Hewitt; Wili Nelson DO Lighting Engineer: Signed 12 LEAD ELECTROCARDIOGRAM Observed: 11/06/2017 Status: F Source: [place] 1:48 PM [facility] REPOSITORY [facility] Cardiovascular Services [address] [place] [id number] 12 Lead EKG 11/05/17 0140 MR#: [id number] Acct: [id number] Name: DAVID LOUIS Rep #: [id number] : 1940 76 From: Greg Phillips MD Attending Dr: Status: DEP ER Ordering Dr: Janiya Leon DO Date: 11/05/17 Location: ED Sex: M C Admitted: Test Reason : CP Blood Pressure : / mmHG Vent. Rate : 046 BPM Atrial Rate : 046 BPM P-R Int : 250 ms QRS Dur : 160 ms QT Int : 482 ms P-R-T Axes : 067 -65 006 degrees QTc Int : 421 ms Sinus bradycardia with sinus arrhythmia with 1st degree A- V block Left axis deviation Right bundle branch block Inferior infarct , age undetermined Abnormal ECG Confirmed by GREG PHILLIPS MD ([id number]), material expeditor RONEL NAVAS ([id number]) on 11/06/2017 1:48:12 PM Referred By: BRITTNY Confirmed By:GREG PHILLIPS MD 11/06/17 1348 Date Greg Phillips MD CC: Wili Nelson DO; Janiya Leon DO Signed EMERGENCY DEPARTMENT Observed: 11/05/2017 Status: F Source: [place] SUMMARY 5:38 AM [facility] REPOSITORY [facility] Medical Records Department [address] [address] Emergency Department Summary 11/05/17 0530 MR#: [id number] Acct: [id number] Name: DAVID LOUIS Rep #: [id number] : 1940 76 From: Janiya Leon DO PCP: Wili Nelson DO Status: DEP ER - ER Visit Summary Date of Service: 11/05/17 Chief Complaint: [Right shoulder and neck pain.] History of Present Illness: The patient is a 76 M [presents to the emergency department with 3 hour history of pain in his right shoulder and neck. Patient denies any trauma. Patient describes the pain as a dull ache and rates it a about a 5 or 6 out of 10. Patient is never had discomfort like this before. Patient denies any pain in his chest. He denies any shortness of breath. Patient's had some mild nausea but no vomiting. He denies recent travel or surgery. Patient has a history of COPD, diabetes, hypertension, obesity, depression, DVT, chronic kidney disease. Patient tells me his last stress test was 6-9 months ago and was unremarkable. Patient has no coronary artery disease history.] Physical Examination: [HEENT-PERRLA, EOMI. Cranial nerves II through XII grossly intact. TMs clear. Mucous membranes moist. No adenopathy. No C-spine tenderness on palpation. No tenderness to the right side of the neck on palpation. No bruits auscultated. Cardiovascular-regular rate and rhythm without murmur or ectopy Lungs-clear to auscultation, chest wall stable without crepitus or subcu emphysema Abdomen-normoactive bowel sounds, soft, nontender, no rebound or rigidity, no peritoneal signs. Extremities-intact 4, normal range of motion, normal pulses, atraumatic]. Right shoulder-no tenderness on palpation and he has normal range of motion. Normal pulses in the right upper extremity. Deep tendon reflexes are plus 2 out of 4 bilaterally at the bicep, tricep, and brachioradialis. Test Results: [EKG obtained on arrival showed a sinus bradycardia with a ventricular rate of 46 bpm with first-degree AV block as well as a right bundle branch block. CBC with differential showed a white count of 6.8, hemoglobin 13.6, hematocrit 42, platelets 219. Chemistries unremarkable. BUN was 27 and creatinine was 1.88. Glucose was 326. Troponin was less than 0.015. Chest x-ray showed some cardiomegaly otherwise nothing acute.] Emergency Department Course and Treatment: [Patient received aspirin in the emergency department as well as nitroglycerin sublingual. Patient is not sure if the nitroglycerin helped his discomfort however he states that the pain in his arm is improved.] Treatment Plan: [I discussed case with Dr. Demarcus Hills who evaluated patient in the emergency department. I have concern regarding anginal equivalent being the cause of the patient's pain is at this point I do not have any other explanation for the discomfort. I wanted to admit the patient for cardiac rule out evaluation. Dr. Hills did not feel patient's pain was cardiac and ordered a delta troponin which was normal. Dr. Hills discharge patient to home.] Disposition: [Discharged to home by hospitalist.] Patient advised to return if chest pain, increasing shortness of breath, or condition should worsen in any way. Impression: [Right arm and neck pain-etiology uncertain] This note was generated with [employer] dictation software. It may contain incorrect words, spelling, and punctuation that were not noted in review of the chart prior to signing ED Disposition - Plan for ED Patient: Chief Complaint: Chest Pain Referrals: Wili Nelson, [Primary Care Provider] - What to do if you have Problems For any increased pain, shortness of breath, bleeding, nausea or vomiting, chest pain, or any unexpected problems, contact your Primary Care Provider. Call [facility] ([phone]) or report to the closest Emergency Room. Call 911 if necessary. 11/05/1738 <Electronically signed by Janiya Leon DO> Date Janiya Leon DO Cosigner Signature (If Indicated): Date CC: Wili Nelson DO CONSULTATION Observed: 11/05/2017 Status: F Source: [place] 5:37 AM [facility] RE[facility] Medical Records Department [address] [place] [address] Consultation 11/05/17 0531 MR#: [id number] Acct: [id number] Name: DAVID LOUIS Rep #: [id number] : 1940 76 From: Demarcus Hills DO PCP: Wili Nelson DO Status: SHELBY Billingsley Location: ED Problem List (1) Morbid obesity Status: Chronic (2) COPD (chronic obstructive pulmonary disease) Status: Chronic (3) Type II diabetes mellitus, uncontrolled Status: Chronic Qualifiers: (4) History of depression Status: Chronic (5) History of other venous thrombosis and embolism Status: Chronic (6) HLD (hyperlipidemia) Status: Chronic (7) HTN (hypertension) Status: Chronic (8) NILO (obstructive sleep apnea) Status: Chronic (9) Chronic renal failure, stage 3 (moderate) Status: Chronic (10) Bifascicular bundle branch block Status: Chronic (11) Right arm pain Status: Acute Reason for Consult Date of Consultation: 11/05/17 Reason for Consultation: right arm pain History of Present Illness: The patient is a 76 year old M developed right arm pain while on the computer. Patient described it as going from shoulder all the way down to his fingertips. Nothing made it better nothing made it worse so patient sought attention for it. Incidentally, patient's presented to the hospital with chest pain and underwent a workup for that. Patient himself denied any chest pain whatsoever and denied any other constitutional symptoms. Patient states that he has had intermittent pain like this in his arm before but would go away but this time and has not gone away. [] Past Medical History Past Medical History (Chronic Problems): Chronic Problems (Last Reviewed 09/11/17 @ 11:00 by BETTYE Aguilera) Diabetes mellitus (Chronic) Morbid obesity (Chronic) Depression (Chronic) Chronic kidney disease (Chronic) Kidney stones (Chronic) Colonic polyp (Chronic) Thromboembolism (Chronic) BPH (benign prostatic hyperplasia) (Chronic) Super obesity (Chronic) History of nephrolithiasis (Chronic) Debility (Chronic) Noncompliance (Chronic) with CPAP and follow up and with diet History of kidney stones (Chronic) COPD (chronic obstructive pulmonary disease) (Chronic) Type II diabetes mellitus, uncontrolled (Chronic) History of depression (Chronic) History of other venous thrombosis and embolism (Chronic) HLD (hyperlipidemia) (Chronic) HTN (hypertension) (Chronic) NILO (obstructive sleep apnea) (Chronic) Chronic renal failure, stage 3 (moderate) (Chronic) Bifascicular bundle branch block (Chronic) Colon polyps (Chronic) Family history of colon cancer (Chronic) Allergies MARGIE Inhibitors Allergy (Unknown, Verified 11/05/17 01:37) Unknown cefepime Allergy (Verified 11/05/17 01:37) Other WEAKNESS AND FALLING ipodate [Ipodate] Allergy (Verified 11/05/17 01:37) Shortness of breath levofloxacin [Levofloxacin] Allergy (Verified 11/05/17 01:37) Anaphylaxis lisinopril Allergy (Verified 11/05/17 01:37) Shortness of breath ofloxacin Allergy (Verified 11/05/17 01:37) Unknown Quinolones Allergy (Verified 11/05/17 01:37) Anaphylaxis Home Medications: Ambulatory Orders Medication Instructions Recorded Atorvastatin Calcium [Lipitor] 40 mg PO QHS 05/29/15 Surgical History: - - Circumcision, excision of kidney stone Psychiatric History: Depression Smoking Status: Never smoker - *Family History Maternal History Items: Cancer - Patient's mother of cancer but he is not sure what kind of cancer. Paternal History Items: Cancer - Father of colon cancer Offspring History Items: - - He has a son who is morbidly obese and suffers from breathing problems and heart problems. Review of Systems Constitutional: Denies: Chills, Fever, Weight Change Eyes: Denies: Blurred vision, Double vision HEENT: Denies: Head Aches, Sinus Congestion, Sinus Drainage Cardiovascular: Reports: Edema. Denies: Chest Pain Respiratory: Denies: Cough, Shortness of breath at rest, Sputum production Gastrointestinal: Denies: Abdominal Pain, Nausea, Vomiting Genitourinary: Denies: Dysuria Musculoskeletal: Reports: Arm Pain - Right arm. Denies: Leg Pain, Muscle pain Skin: Denies: Rash, Wounds Neurological: Reports: Balance problems Psychiatric: Denies: Anxiety, Depression, Homicidal Ideations, Suicidal Ideations Hematologic/ Lymphatic: Reports: Hx of blood clot. Denies: Easy Bruising, Easy Bleeding Patient Problems: Active and Suspected Problems (Last Reviewed 09/11/17 @ 11:00 by Aicha Szymanski NP-C) Right arm pain (Acute) - Physical Exam General: Alert, Cooperative, No apparent distress HEENT: Atraumatic, Normocephalic Neck: No Nodes, Thyroid Normal Size and Texture Lungs: Clear to auscultation, Normal air movement, No rhonchi, No wheeze Cardiovascular: Regular rate, Regular Rhythm, Normal S1, Normal S2, No murmurs Abdomen: Bowel Sounds Present, Soft, Non Tender, Non-Distended, No Hepato-splenomegaly Extremities: No Calf Tenderness, Edema Skin: No rashes, No breakdown Musculoskeletal: No Tenderness to Palpation of Joints or Extremities, No Muscle Wasting Neurological: - - Muscle strength is 5 out of 5 in upper extremities bilaterally. Coordination of the upper extremities is intact bilaterally. Sensation is intact in the upper extremities bilaterally. No focal deficits appreciated in the upper extremities. Psych/Mental Status: Normal Affect, Appropriate Vital Signs Temp Pulse Resp BP Pulse Ox 37.1 C 60 18 150/64 H 95 11/05/17 03:06 11/05/17 05:05 11/05/17 05:05 11/05/17 05:05 11/05/17 05:05 Oxygen Flow Rate (L/min) 2 Oxygen Delivery Method Nasal Cannula Weight: 178.9 kg Body Mass Index (BMI) 53.4 Finger Stick Blood Glucose 216 Laboratory Tests Past 24 Hrs Clinical Impression(s) from Imaging Studies Chest X-Ray 11/05/17 01:57 IMPRESSION: Mild cardiomegaly. Electronically Signed: Lisset Lees MD at 2:37 EDT Tel , Service support , EKG showed right bundle branch block which is unchanged from previous. Assessment/Plan Active and Suspected Problems (Last Reviewed 09/11/17 @ 11:00 by BETTYE Aguilera) Right arm pain (Acute) 1. Right arm pain * No clinical abnormalities that I can identify in regards to causing his arm pain. * I do not feel this is cardiac equivalent. Incidentally patient came in with his who was admitted with chest pain. The patient himself adamantly denied any chest pain when I asked him and I asked him twice. * Recommend Tylenol for pain * Patient has no neurologic deficits that I can appreciate to explain his symptomatology * Would recommend patient follow-up with his primary care physician within the next week or 2 for further evaluation. * I have taken the liberty of doing the patient's discharge paperwork from the emergency room Code Visit Office Visits / Consults: [id number] OP Consult L3 11/05/1737 <Electronically signed by Demarcus Hills DO> Date Demarcus Hills DO Cosigner Signature (if applicable): Date CC: Wili Nelson DO Signed DISCHARGE INSTRUCTION Observed: 11/05/2017 Status: F Source: [place] 5:28 AM [facility] RE[facility]ORY [facility] Medical Records Department [address] [place] [address] Instructions for Home/Discharge Instructions 11/05/17524 MR#: [id number] Acct: [id number] Name: DAVID LOUIS Rep #: [id number] : 1940 76 From: Demarcus Hills DO PCP: Omar DO,Wili Status: REG ER You will use the following diet at home:: Calorie/Carbohydrate Controlled (specify 1200, 1400, etc) - 1800 Your food should be the consistency of: Regular Your liquids should be the consistency of: Regular/Thin Discharge Activity: Return to Normal Activity Call your doctor if you observe: Fever of 101 or Higher, Shortness of breath, Chest pain Allergies/Adverse Reactions: Allergies MARGIE Inhibitors Allergy (Unknown, Verified 11/05/17 01:37) Unknown cefepime Allergy (Verified 11/05/17 01:37) Other WEAKNESS AND FALLING ipodate [Ipodate] Allergy (Verified 11/05/17 01:37) Shortness of breath levofloxacin [Levofloxacin] Allergy (Verified 11/05/17 01:37) Anaphylaxis lisinopril Allergy (Verified 11/05/17 01:37) Shortness of breath ofloxacin Allergy (Verified 11/05/17 01:37) Unknown Quinolones Allergy (Verified 11/05/17 01:37) Anaphylaxis Medications to take at Discharge Atorvastatin Calcium [Lipitor] 40 mg PO QHS 05/29/15 Citalopram [Celexa] 40 mg PO DAILY 05/29/15 Fluticasone 0.05% [Flonase Nasal [place]] 1 spray NASAL BID PRN 05/29/15 Tamsulosin HCl [Flomax] 0.4 mg PO DAILY 07/08/16 Metoprolol Succinate 100 mg PO DAILY 02/08/17 Losartan Potassium [Cozaar] 100 mg PO DAILY 07/24/17 Nystatin Powder [Mycostatin Powder] 1 applic TOPICAL BID 08/06/17 Albuterol Inhaler [Ventolin Hfa] 2 puff INHALATION Q6HWA.RT #1 inhaler 08/11/17 Insulin Aspart [Novolog Flexpen] 13 units SC TIDAC #1 flexpen 08/11/17 Insulin Detemir [Levemir FlexPen] 20 units SC BID #1 insuln.pen 08/11/17 Menthol/Lanolin/Calamine/Znox [Calmoseptine Ointment] 1 applic TOPICAL TID tube 08/11/17 Metoprolol(XL)Succ [Toprol Xl (Beta Zen)] 50 mg PO DAILY #30 tab 08/11/17 Mineral Oil/Petrolatum,White [Eucerin] 1 applic TOPICAL BID@0600,2200 jar 08/11/17 Warfarin [Coumadin] 6 mg PO DAILY@1700 #30 tab 08/11/17 Primary Care Physician: Wili Nelson DO [Primary Care Provider] - Please follow up with your Primary Care Physician in: 1-2 weeks Proposed Discharge Date: 11/05/17 11/05/17 0528 <Electronically signed by Demarcus Hills DO> Date Demarcus Hills DO CC: Wili Nelson DO TROPONIN-I Collected: 11/05/2017 Status: F Source: [place] 4:37 AM [facility] REPOSITORY TYPE CODE TESTS RESULT OUT OF RANGE REFERENCE UNITS LAB L501.4010 <0.045 ng/mL Normal < 0.015 TROPONIN-I Result Comment: TROPONIN-I EXPECTED VALUES <0.045 Negative 0.045 - 0.590 Consistent with Cardiac Damage > OR = 0.600 Critical Value Not every elevated troponin is indicative of AL. These values should be used with clinical judgement in examining the patient's clinical picture for diagnosis. To establish a diagnosis of AL versus myocardial injury, there must be a demonstrated rise and/or fall in the troponin values, in addition to ischemic symptoms, EKG changes, new regional wall motion abnormality, and/or angiographical evidence. PLEASE NOTE: REFERENCE RANGES EDITED 17 Performed By: #### L501.4010 #### [facility] [address], [address] CHEST 1 VIEW Observed: 11/05/2017 Status: F Source: [place] (PORTABLE) 1:58 AM [facility] RE[facility] Imaging Services [address] [place] [address] Chest 1 View (Portable) MR#: [id number] Acct: [id number] Name: DAVID LOUIS Rep #: [id number] : 1940 M 76 From: Lisset Lees MD PCP: Wili Nelson DO Status: REG ER Study: Chest 1 View (Portable) Date of Exam: 11/05/17 Exam# [id number] Ordering Dr: Janiya Leon DO STUDY: X-RAY CHEST REASON FOR EXAM: Male, 76 years old. intermittent today chest pain, constant for the last hour. radiates to right ear, and right arm TECHNIQUE: Single AP portable view of the chest. COMPARISON: 05/29/2015 FINDINGS: The lungs are clear and expanded. There is no demonstrated pleural abnormality. There is mild cardiac enlargement. Normal mediastinum and denys. Normal visualized pulmonary arteries. There is atherosclerotic tortuosity of the aortic arch and descending thoracic aorta. Normal visualized thoracic spine. Normal visualized ribs, clavicles, and shoulders. There is a chest wall lesion on the right side appears stable when compared to the previous study measures 2.5 cm most likely represent a benign mass. There is no demonstrated abnormality of the visualized soft tissue structures of the upper abdomen. RAD/Chest 1 View (Portable) IMPRESSION: Mild cardiomegaly. Electronically Signed: Lisset Lees MD at 2:37 EDT Tel , Service support , CC: Wili Nelson DO; Janiya Leon DO Lighting Engineer: Signed CBC W/DIFF, AUTOMATED Collected: 11/05/2017 Status: F Source: [place] 1:40 AM [facility] REPOSITORY TYPE CODE TESTS RESULT OUT OF RANGE REFERENCE UNITS LAB L100.1000 4.4-11.0 K/mm3 Normal WBC 6.8 LAB L100.1200 4.6-6.2 M/mm3 Normal RBC 4.78 LAB L100.1300 13.0-16.5 g/dl Normal HGB 13.6 LAB L100.1400 40-54 % Normal HCT 41.6 LAB L100.1500 80-94 fL Normal MCV 87.0 LAB L100.1600 27.0-32.0 pg Normal MCH 28.5 LAB L100.1700 32-36 g/gl Normal MCHC 32.7 LAB L100.1810 11.6-14.6 % Normal RDW CV 13.2 LAB L100.1820 35.1-43.9 fl Normal RDW SD 42.3 LAB L100.1900 150-450 K/mm3 Normal PLT 219 LAB L100.2000 6.2-12.0 fl Normal MPV 9.2 LAB L100.2100 47-70 % High NEUT% 70.5 LAB L100.2200 19-41 % Low LY% 17.0 LAB L100.2300 0-10 % Normal MONO% 8.9 LAB L100.2400 0-5 % Normal EO% 2.9 LAB L100.2500 0-1 % Normal BASO% 0.4 LAB L100.2550 0.0-0.9 % Normal IM GRAN % 0.300 Result Comment: IG% - Immature Granulocytes (promyelocytes, myelocytes and metamyelocytes) > 1% indicates that a LEFT SHIFT is Present. LAB L100.2620 2.0-7.7 X10 3/uL Normal Absolute Neut 4.8 LAB L100.2720 0.83-4.51 X10 3/ul Normal Absolute Lymph 1.16 Performed By: #### L100.0100 #### [facility] [address] [place], [place], [address] BASIC METABOLIC Collected: 11/05/2017 Status: F Source: [place] PROFILE (BMP) 1:40 AM [facility] REPOSITORY TYPE CODE TESTS RESULT OUT OF RANGE REFERENCE UNITS LAB L501.0100 74-106 mg/dL High GLU 326 Result Comment: Glucose result greater than or equal to 200 mg/dL suggests DIABETES MELLITUS per A.D.A. criteria. Please note revised GLUCOSE reference range effective 2017. LAB L501.1000 7-18 mg/dL High BUN 27 LAB L501.1100 0.70-1.30 mg/dL High CREAT,SERUM 1.88 Result Comment: The validity of the calculated GFR AND GFRAA in patients over 70 years has not been determined. Clinical correlation is essential. LAB L501.1110 >60 mL/min Low EST GFR 37 Result Comment: Non- GFR Calc LAB L501.1115 >60 mL/min Low EST GFR - AA 45 Result Comment: GFR Calc LAB L501.1255 ml/min Normal Estimated CRCL 36.69 LAB L501.1300 10-20 RATIO Normal BUN/CRE 14.4 LAB L501.2200 8.5-10 mg/dL Normal .1 CA 8.8 LAB L501.5300 136-14 mmol/L Low 5 NA 135 LAB L501.5600 3.5-5. mmol/L Normal 1 K 4.2 LAB L501.5900 98-107 mmol/L Normal CL 102 LAB L501.6100 21.0-3 mmol/L Normal 2.0 CO2 24.0 LAB L501.6200 5-15 Normal GAP 9 Performed By: #### L500.2500, L501.4010 #### [facility] [address] [place], [place], [address] TROPONIN-I Collected: 11/05/2017 Status: F Source: [place] 1:40 AM [facility] REPOSITORY TYPE CODE TESTS RESULT OUT OF RANGE REFERENCE UNITS LAB L501.4010 <0.045 ng/mL Normal < 0.015 TROPONIN-I Result Comment: TROPONIN-I EXPECTED VALUES <0.045 Negative 0.045 - 0.590 Consistent with Cardiac Damage > OR = 0.600 Critical Value Not every elevated troponin is indicative of AL. These values should be used with clinical judgement in examining the patient's clinical picture for diagnosis. To establish a diagnosis of AL versus myocardial injury, there must be a demonstrated rise and/or fall in the troponin values, in addition to ischemic symptoms, EKG changes, new regional wall motion abnormality, and/or angiographical evidence. PLEASE NOTE: REFERENCE RANGES EDITED 17 Performed By: #### L500.2500, L501.4010 #### [facility] [address] [place], [place], [address] PULMONARY FUNCTION Observed: 10/08/2017 Status: F Source: [place] REPORT COMP 2:01 PM [facility] Pulmonary Services/Neurology [address] [place] [address] MR#: [id number] Acct: [id number] Name: DAVID LOUIS Rep #: [id number] : 1940 76 From: Ra Kauffman MD Referring Dr: Aicha Szymanski NP Status: REG CLI Ordering Dr: Date: Location: PSN Sex: M C COMPLETE PULMONARY FUNCTION TEST INTERPRETATION Brief HPI: Patient is a 76 year old male, currently under the care of Aicha Szymanski, who presents to [facility] for complete pulmonary function tests secondary to diagnosis of COPD. Respiratory therapist reports good effort and reproducible results. Interpretation: Forced expiration spirometry shows no large airways obstructive ventilatory defect with an FEV1 of 85% predicted. There is no significant bronchodilator response by strict ATS criteria. Spirograms are of good quality and plateau slowly, indicating slowly emptying areas of the lungs. The respiratory flow volume loop shows a normal pattern. Lung volumes by body plethysmography show a decreased total lung capacity at 5.51 L, 80% predicted. All other lung volumes are reduced symmetrically. Diffusion capacity by carbon monoxide is decreased at 59% predicted. The airway resistance is normal. No previous pulmonary function tests were available for review. Impression: Mild restrictive ventilatory defect with a symmetric reduction diffusing capacity consistent with possible interstitial lung disease. 10/08/17 1401 <Electronically signed by Ra Kauffman MD> Date Ra Kauffman MD CC: Ra Kauffman MD; Aicha Nelson DO Date Dictated: 10/08/17 1357 Date Transcribed: 10/08/171356 Lighting Engineer: LUIS Signed 6 MINUTE WALK TEST Observed: 09/22/2017 Status: F Source: [place] 2:25 PM [facility] REPOSITORY [facility] Pulmonary Services/Neurology [address] [place] [address] MR#: [id number] Acct: [id number] Name: DAVID LOUIS Rep #: [id number] : 1940 76 From: Ra Kauffman MD Referring Dr: Aicha Szymanski NP Date: Ordering Dr: Sex: M C Location: PSN PSN 6 Minute Walk Test - 6 Minute Walk Test 6 Minute Walk Test: 6 Minute Walk Test PSN:6-Minute Walk Test Start: 09/22/17 12:18 Freq: Status: Active Protocol: RESP.6MINW Document 09/22/17 11:00 EW (Rec: 09/22/17 12:21 EW [id number]) 6 Minute Walk Test Date Performed 09/22/17 Time Performed 11:00 Height 6 ft Weight: 176.901 kg Weight in Pounds 390.[address]: Aicha Szymanski Assistive device used: None Pre-test Oxygen Delivery Method Room Air Pulse Ox (%) 93 Pulse Rate (60-100 beats/min) 70 Dyspnea Adrian Scale (0-10) 2 Exertion Adrian Scale (6-20) 9 1st minute Oxygen Delivery Method Room Air Pulse Ox (%) 95 Pulse Rate (60-100 beats/min) 73 2nd minute Oxygen Delivery Method Room Air Pulse Ox (%) 91 Pulse Rate (60-100 beats/min) 83 Number of Rests Taken 1 Reported Symptoms Increased Work of Breathing 3rd minute Oxygen Delivery Method Room Air Pulse Ox (%) 93 Pulse Rate (60-100 beats/min) 80 4th minute Oxygen Delivery Method Room Air Pulse Ox (%) 93 Pulse Rate (60-100 beats/min) 85 Number of Rests Taken 1 Reported Symptoms Increased Work of Breathing 5th minute Oxygen Delivery Method Room Air Pulse Ox (%) 94 Pulse Rate (60-100 beats/min) 86 6th minute Oxygen Delivery Method Room Air Pulse Ox (%) 93 Pulse Rate (60-100 beats/min) 84 Number of Rests Taken 1 Reported Symptoms Increased Work of Breathing Post-test Oxygen Delivery Method Room Air Pulse Ox (%) 96 Pulse Rate (60-100 beats/min) 77 Dyspnea Adrian Scale (0-10) 4 Exertion Adrian Scale (6-20) 14 Full Laps Walked 9 Partial Lap, Number of Tiles Walked 0 Total Distance Walked (ft) 531 - Interpretation Interpretation: The patient was able to ambulate only 531 feet over the course of 6 minutes on room air with the assistance of a cane, walker and 3 breaks. The patient did experience desaturation as low as 91%, but improved with breaks. These findings are consistent with a respiratory and musculoskeletal limitation exercise tolerance. - Recommendations Recommendations: Supplemental oxygen is indicated at this time. However, sensitivity for hypoxemia is severely limited secondary to minimal distance traveled. Continue to monitor closely. 09/22/17 5767 <Electronically signed by Ra Kauffman MD> Date Ra Kauffman MD CC: Date Dictated: 09/22/171419 Date Transcribed: 09/22/171419 Lighting Engineer: Ra Kauffman Signed PULMONARY VISIT REPORT Observed: 09/11/2017 Status: F Source: [place] 11:18 AM [facility] REPOSITORY [facility] [id number] [place] [address] OFFICE VISIT Date of Service: 09/11/17 MR#: [id number] Acct: [id number] Name: DAVID LOUIS Rep #: [id number] : 1940 Provider: iAcha Szymanski Age/Sex: 76/M Location: [facility] Status: Signed Assessment AND Plan 1. COPD (chronic obstructive pulmonary disease) J44.9 Status Chronic Plan Plan for complete pulmonary function test and a formal pulmonary stress test prior to a 2 month follow-up with Dr. Malone. If COPD is indicated on the pulmonary function tests, appropriate inhalers can be discussed at the follow-up appointment. If hypoxia is identified on stress test, supplemental oxygen will be ordered to maintain saturations 89-92%. Orders Orders: 2. NILO (obstructive sleep apnea) G47.33 Status Chronic Plan The patient has a history of noncompliance, given the air leaks and high pressures that he is on right now I am concerned for further noncompliance. Personally reviewed titration study, found that the patient had symptom control with pressures at 18/12 cm of water. He will require a supplemental oxygen bleed to maintain his saturation on that settings. Plan to reduce his pressure support settings. Patient is agreeable at this time, he has been advised to contact the office if he feels as though reduce pressure is not sufficient. He conveys understanding. Follow-up with Dr. Malone in 2 months. Plan is to reduce the pressure support to a pressure that will continue to control his symptoms but likely support acclamation and compliance. 3. Super obesity E66.9 Status Chronic Plan Encourage weight loss. Plan Detail Follow Up 2 Months (DMB ) [facility] FU: Chief Complaint: Shortness of breath on exertion [facility] Comments Details: This patient presents to the office today to follow- up after recent hospitalization, and transferred to the transitional care unit with multiple comorbid illnesses. He is ambulatory, currently on room air and accompanied by his . TCU discharge summary was reviewed, the patient was admitted to the TCU unit from the right through August 13, 2017 with a multitude of problems, most significant to pulmonary includes noncompliance with CPAP, COPD, obstructive sleep apnea and super obesity. Today, he complains only of shortness of breath on exertion. He denies any cough, wheezing or chest tightness. He reports that he only used his Ventolin rescue inhaler one time since discharge. He does believe that it provided him some relief from his shortness of breath. He is currently using oxygen only at night, 3.5 L. He has been compliant with his BiPAP since discharge. Currently his BiPAP settings are 26/20 centimeters of water. Average use right now is almost 9 hours. Unfortunately, AHI remains elevated at 35.7, and leaks do appear to be an issue. Patient reports that he does have leaks nightly. He complains of a dry mouth. He does report that he feels rested in the morning upon arising. He reports a smoking history, quit smoking cigars approximately 15 years ago. No pulmonary function tests available for review. Carries a diagnosis of COPD however is not on any maintenance medications. Intake Vital Signs09/11/17 Height 6 ft 09/11/17 Weight: 398 lb Intake Visit Reasons: Hospital FU Chief Complaint: UTI DME Vendor: [employer] Accompanied by: Allergies MARGIE Inhibitors Allergy (Unknown, Verified 09/11/17 10:22) Unknown cefepime Allergy (Verified 09/11/17 10:22) Other ipodate [Ipodate] Allergy (Verified 09/11/17 10:22) Shortness of breath levofloxacin [Levofloxacin] Allergy (Verified 09/11/17 10:22) Anaphylaxis lisinopril Allergy (Verified 09/11/17 10:22) Shortness of breath ofloxacin Allergy (Verified 09/11/17 10:22) Unknown Quinolones Allergy (Verified 09/11/17 10:22) Anaphylaxis Medications Atorvastatin Calcium [Lipitor] 40 mg PO QHS 05/29/15 [History Confirmed 09/11/17] Citalopram [Celexa] 40 mg PO DAILY 05/29/15 [History Confirmed 09/11/17] Fluticasone 0.05% [Flonase Nasal [place]] 1 spray NASAL BID PRN 05/29/15 [History Confirmed 09/11/17] Tamsulosin HCl [Flomax] 0.4 mg PO DAILY 07/08/16 [History Confirmed 09/11/17] Metoprolol Succinate 100 mg PO DAILY 02/08/17 [History Confirmed 09/11/17] Losartan Potassium [Cozaar] 100 mg PO DAILY 07/24/17 [History Confirmed 09/11/17] Nystatin Powder [Mycostatin Powder] 1 applic TOPICAL BID 08/06/17 [History Confirmed 09/11/17] Acetaminophen [Tylenol] 1,000 mg PO Q8H PRN PRN tab 08/11/17 [Rx Confirmed 09/11/17] Albuterol Inhaler [Ventolin Hfa] 2 puff INHALATION Q6HWA.RT #1 inhaler 08/11/17 [Rx Confirmed 09/11/17] Insulin Aspart [Novolog Flexpen] 13 units SC TIDAC #1 flexpen 08/11/17 [Rx Confirmed 09/11/17] Insulin Detemir [Levemir FlexPen] 20 units SC BID #1 insuln.pen 08/11/17 [Rx Confirmed 09/11/17] Menthol/Lanolin/Calamine/Znox [Calmoseptine Ointment] 1 applic TOPICAL TID tube 08/11/17 [Rx Confirmed 09/11/17] Metoprolol(XL)Succ [Toprol Xl (Beta Zen)] 50 mg PO DAILY #30 tab 08/11/17 [Rx Confirmed 09/11/17] Mineral Oil/Petrolatum,White [Eucerin] 1 applic TOPICAL BID@0600,2200 jar 08/11/17 [Rx Confirmed 09/11/17] Warfarin [Coumadin] 6 mg PO DAILY@1700 #30 tab 08/11/17 [Rx Confirmed 09/11/17] Warfarin [Coumadin] 7 mg PO DAILY@1700 #30 tab 08/12/17 [Rx Confirmed 09/11/17] PFSH Medical History Metabolic encephalopathy (Acute) Diabetes mellitus (Chronic) Morbid obesity (Chronic) Depression (Chronic) Chronic kidney disease (Chronic) Kidney stones (Chronic) Colonic polyp (Chronic) Thromboembolism (Chronic) MRSA (methicillin resistant staph aureus) culture positive (Acute) Subtherapeutic international normalized ratio (INR) (Acute) BPH (benign prostatic hyperplasia) (Chronic) Super obesity (Chronic) History of nephrolithiasis (Chronic) Cystitis (Acute) Debility (Chronic) Noncompliance (Chronic) History of kidney stones (Chronic) COPD (chronic obstructive pulmonary disease) (Chronic) Type II diabetes mellitus, uncontrolled (Chronic) History of depression (Chronic) History of other venous thrombosis and embolism (Chronic) HLD (hyperlipidemia) (Chronic) HTN (hypertension) (Chronic) NILO (obstructive sleep apnea) (Chronic) Chronic renal failure, stage 3 (moderate) (Chronic) Bifascicular bundle branch block (Chronic) Colon polyps (Chronic) Family history of colon cancer (Chronic) Social History Smoking Status: Former smoker Review of Systems Const CONSTITUTIONAL: Positive daytime sleepiness and fatigue; negative anorexia, body ache, chills, fever(s), night sweats, oral thrush, stops breathing during sleep, weight loss, sleeping in chair, weight loss, weight gain, frequent colds, seasonal allergies, other, headache(s) or orthopnea EETM Ear Nose Throat Mouth: Positive hearing normal, hoarseness, dry mouth in morning, nasal congestion, nasal discharge, sinus pain and sinus pressure; negative hard of hearing, change in vision, itchy eyes, eye pain, swallowing Difficulty, ear pain, nose bleed, headache(s), mouth pain, sore throat or other Cardio Cardiovascular: Positive edema Location: lower extremity; negative chest pain, chest pain at rest, chest pain with activity, irregular heart rhythm, shortness of breath when lying down, palpitations, murmur or other Resp Respiratory: Positive as per HPI and shortness of breath shortness of breath: Positive with activity, lying down and worsening; negative pain with cough, wheezing, chest congestion, cough, chest tightness, pain on inspiration, inhalers, increase use of rescue inhalers, snoring, apnea or other Gastro Gastrointestional: Negative bloody stools, change in appetite, difficulty swallowing, reflux, hematemesis, melena stool, loose stool, constipation or other Genitourinary: Negative blood in urine, nocturia, pain with urination or other Musc Musculoskeletal: Positive body pain and back pain; negative neck pain or other Skin/Breast Skin/Breast: Positive dry skin; negative itching, rash, unusual bruising, breast lump or other Neuro Neurological: Positive confusion and weakness; negative restless legs or other Psych Psychocological: Negative abnormal sleep pattern, anxiety, thoughts of hurting self/others, hopelessness or other Lymph Lymphatic: Negative easy bleeding, easy bruising, swollen lymph nodes or other Exam Const Constitutional: Positive conversant, cooperative, in no acute respiratory distress, poor hygiene, obese and dyspenic Head Head: Positive normocephalic and atraumatic; negative cyanosis of lips/distal nose Eyes Eye: Positive clear conjunctiva and nystagmus; negative scleral abnormality Ears Ear: Positive hearing normal and external ears normal; negative hard of hearing Nose Nose: Positive external nose normal and no nasal discharge; negative epistaxis Mouth Mouth: Positive oral mucosae normal, no lesions, poor dentition and crowded posterior oropharynx; negative malodorous breath or oral thrush present Mallampati Score: IV: Mallampati Score Neck Neck: Positive normal visual inspection, full ROM, trachea midline, thick neck and male neck greater than 43 cm (17 in); negative lymphadenopathy, JVD or tender Chest Wall Chest: Positive normal inspection of the chest and symmetric chest movement; negative increased A/P diameter Resp lung sounds: Positive diminished, clear to auscultation, normal expiratory time and normal respiratory effort; negative wheezes, wheeze present on forced exhalation, rhonchi, rales or dullness to percussion Cardio Cardiac: Positive regular rate, regular rhythm, S1 normal and S2 normal; negative murmur GI GI: Positive normal to inspection, normal bowel sounds and obese; negative distended Genitourinary: Positive deferred Musc Musculoskeletal: Positive steady gait and ROM normal; negative kyphosis or scoliosis Skin Pulmonary Skin Exam: Positive intact; negative rash, lesion, ulcers, erythema, scaly or dermal atrophy Pulses Pulse: Yes pulses normal x4 extremities Extremities Extremities: No edema, No clubbing, Yes capillary refill normal, No cyanosis, No stasis dermatitis Neuro Neurologic: Yes conversant, Yes no focal neuro deficits, Yes cooperative, Yes normal cognition, Yes normal coordination, Yes normal concentration, Yes understands questions Lymph Lymphatic: No lymphadenopathy, No tenderness, No cervical adenopathy, No axillary adenopathy Psych Appearance: Positive grossly normal, eye contact and well kempt Mental Status: Positive mental status grossly normal Mood: Positive congruent mood Affect: Positive flat Coding Level of Care Code Off vis,est,level 4 Diagnoses COPD (chronic obstructive pulmonary disease) J44.9 NILO (obstructive sleep apnea) G47.33 Super obesity E66.9 09/11/17 1118 <Electronically signed by Aicha Szymanski NP-C> Date Aicha Szymanski NP-C Cosigner Signature: Date (if applicable) CC: PROGRESS Observed: 08/24/2017 Status: COMPLETED Source: [place] 8:10 PM [facility] REPOSITORY HNO ID: [id number] Author: Moe Bolaños Service: (none) Author Type: Physician Type: Progress Notes Filed: 08/24/2017 8:13 PM Note Text: Subjective: Patient presents to clinic c/o painful toenails. They state that the nails are especially painful with shoe gear and pressure. Patient states that nails 1-5 b/l are painful. No other pedal complaints at this time. Patient states no change in medications or medical history since last visit. Objective: Patient presents to clinic ambulating in [facility] Vasc: DP and PT pulses are palpable bilateral. CFT is less than 5 seconds bilateral. Skin temperature is warm to cool proximal to distal bilateral. There is mild edema or varicosities noted. Neuro: Protective sensation is intact to the foot and toes when tested with the 5.07 SWM bilateral. Vibratory sensation is decreased at the hallux IPJ bilateral. The hallux is downgoing bilateral. Derm: Nails 1-5 b/l are painful, discolored-yellow, thick, crumbly, dystrophic and with subungal debris. Skin is dry and scaly bilateral. There are no hyperkeratosis, ulcerations, scars, verruca or other lesions noted. Ortho: Muscle strength is 5/5 for all pedal groups tested. Ankle joint DF is decreased with the knee extended with no pain or crepitus noted. 1st MPJ ROM is decreased bilateral. Assessment: (B35.1) Onychomycosis (primary encounter diagnosis) (M79.675) Pain in toe of left foot (M79.674) Pain in toe of right foot (L85.3) Xerosis cutis Plan: Patient was seen and evaluated. Nails 1-5 bilateral were debrided in length and thickness. Recommend patient continue with lotion to his feet daily. Patient is to RTC in 3-4 months. Moe Bolaños DPM CNOV Observed: 08/24/2017 Status: COMPLETED Source: [place] 1:40 PM [facility] REPOSITORY Office Visit (PODIWS) DAVID LOUIS ([id number]) 1940 M Date Time Provider Department 08/24/17 1:40 PM MOE BOLAÑOS During your visit today, we recorded the following information about you: Moe Bolaños DPM 08/24/2017 8:13 PM Signed Subjective: Patient presents to clinic c/o painful toenails. They state that the nails are especially painful with shoe gear and pressure. Patient states that nails 1-5 b/l are painful. No other pedal complaints at this time. Patient states no change in medications or medical history since last visit. Objective: Patient presents to clinic ambulating in [facility] Vasc: DP and PT pulses are palpable bilateral. CFT is less than 5 seconds bilateral. Skin temperature is warm to cool proximal to distal bilateral. There is mild edema or varicosities noted. Neuro: Protective sensation is intact to the foot and toes when tested with the 5.07 SWM bilateral. Vibratory sensation is decreased at the hallux IPJ bilateral. The hallux is downgoing bilateral. Derm: Nails 1-5 b/l are painful, discolored-yellow, thick, crumbly, dystrophic and with subungal debris. Skin is dry and scaly bilateral. There are no hyperkeratosis, ulcerations, scars, verruca or other lesions noted. Ortho: Muscle strength is 5/5 for all pedal groups tested. Ankle joint DF is decreased with the knee extended with no pain or crepitus noted. 1st MPJ ROM is decreased bilateral. Assessment: (B35.1) Onychomycosis (primary encounter diagnosis) (M79.675) Pain in toe of left foot (M79.674) Pain in toe of right foot (L85.3) Xerosis cutis Plan: Patient was seen and evaluated. Nails 1-5 bilateral were debrided in length and thickness. Recommend patient continue with lotion to his feet daily. Patient is to RTC in 3-4 months. Moe Bolaños DPM Referring Provider: MOE BOLAÑOS [[id number]] Allergies As of Date: 08/24/2017 Noted Allergy Reaction LEVAQUIN (LEVOFLOXACIN) 12/26/2008 10 - Anaphylaxis OFLOXACIN 04/03/2005 ORAGRAFIN SODIUM (IPODATE SODIUM) 04/03/2005 PRINIVIL (LISINOPRIL) 04/03/2005 Date Reviewed: 08/24/2017 Reviewed by: Ayala De Anda Ma - Fully Assessed Reason for Visit: Diabetic Foot Care [916] Primary Visit Diagnosis:Onychomycosis [B35.1] Other Visit Diagnoses:Pain in toe of left foot [M79.675] Pain in toe of right foot [M79.674] Xerosis cutis [L85.3] Prescriptions as of 08/24/2017 Sig: CITALOPRAM 40 MG TABLET Take 40 mg by mouth once franchesca* TAMSULOSIN 0.4 MG CAPSULE Take 0.4 mg by mouth. METOPROLOL SUCCINATE ER 50 MG* Take 50 mg by mouth once franchesca* LOSARTAN 100 MG TABLET Take 100 mg by mouth once keshav* FLUTICASONE 50 MCG/ACTUATION * Use 1 Acampo in each nostril d* AMMONIUM LACTATE-SODIUM LACTA* Apply 1 application to affect* BLOOD SUGAR DIAGNOSTIC STRIPS Test blood sugar(s) 3 times d* MUPIROCIN 2 % TOPICAL OINTMENT Apply 1 application to affect* ATORVASTATIN 20 MG TABLET Take 1 tablet by mouth once d* ALBUTEROL SULFATE HFA 90 MCG/* Inhale 2 Puffs as instructed * IPRATROPIUM-ALBUTEROL 0.5 MG-* Inhale 3 mL as instructed connie* INSULIN SYRINGE-NEEDLE U-100 * Use as directed to inject ins* PEN NEEDLE, DIABETIC 31 GAUGE* 1 Each as needed. INSULIN REGULAR HUMAN U-500C* Use 30 units with breakfast, * AMLODIPINE 5 MG TABLET Take 1.5 tablets by mouth onc* WARFARIN 5 MG TABLET Alternate 5mg and 7.5mg every* BIPAP Change: BIPAP 23/18 cmH2O, w* INSULIN SYRINGES (DISPOSABLE)* USE DIRECTED LEVEMIR FLEXTOUCH U-100 INSUL* NOVOLOG FLEXPEN U-100 INSULIN* WARFARIN 1 MG TABLET WARFARIN 6 MG TABLET BUPROPION HCL SR 150 MG TABLE* Take 1 tablet by mouth twice * INSULIN GLARGINE (U-100) 100 * Inject 40 Units subcutaneousl* FLUTICASONE 250 MCG-SALMETERO* Inhale 1 Puff as instructed t* Medication notes this encounter BUPROPION HCL SR 150 MG TABLET,12 HR SUSTAINED-RELEASE >> Ayala De Anda Ma 08/24/2017 1:58 PM >> AYALA DE ANDA MA ThuAug 24, 2017 1:58 PM Not taking. Please d/c INSULIN GLARGINE (U-100) 100 UNIT/ML (3 ML) SUBCUTANEOUS PEN >> Ayala De Anda Ma 08/24/2017 1:59 PM >> AYALA DE ANDA MA ThuAug 24, 2017 1:59 PM Not taking. Please d/c FLUTICASONE 250 MCG-SALMETEROL 50 MCG/DOSE BLISTR POWDR FOR INHALATION >> Ayala De Anda Ma 08/24/2017 1:59 PM >> AYALA DE ANDA MA ThuAug 24, 2017 1:59 PM Not taking. Please d/c More... Problem List As Of Date 08/24/2017 Noted Resolved Essential hypertension, benign [I10] INVALID FOR* Priority: B Other and unspecified hyperlipidemia [E78.5] INVALID FOR* Priority: A Edema [R60.9] INVALID FOR* Family history of malignant neoplasm of gastroi*INVALID FOR* More... Unspecified sleep apnea [G47.30] INVALID FOR* Priority: B Morbid obesity [E66.01] INVALID FOR* Priority: A Depressive disorder, not elsewhere classified [*INVALID FOR* Priority: C Chronic kidney disease, stage III (moderate) [N*INVALID FOR* Priority: B Unspecified constipation [K59.00] INVALID FOR* Other pulmonary embolism and infarction [I26.99]INVALID FOR* Priority: Severe More... Chronic venous hypertension with ulcer [I87.319*INVALID FOR* More... DM w/o complication type II, uncontrolled [E11.*INVALID FOR* Priority: A More... Stasis leg ulcer [I83.009, L97.909] INVALID FOR* Priority: B More... COPD (chronic obstructive pulmonary disease) [J*INVALID FOR* Priority: B More... UTI (lower urinary tract infection) [N39.0] INVALID FOR*12/29/2011 Priority: Moderate More... Venous insufficiency [I87.2] Tobacco use disorder [F17.200] INVALID FOR* More... 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 Chronic rhinitis [J31.0] INVALID FOR* Uncontrolled type 2 diabetes with neuropathy (H*INVALID FOR* Disposition: Return in about 3 months (around 11/24/2017) for nail care. Follow-up and Disposition History Recorded Encounter Status:Closed by MOE BOLAÑOS DPM on 08/24/17 BEDSIDE GLUCOSE Collected: 08/13/2017 Status: F Source: [place] 4:36 PM [facility] REPOSITORY TYPE CODE TESTS RESULT OUT OF REFERENCE UNITS RANGE LAB L501.080 70-110 mg/dL High BEDSIDE GLU 289 Result Comment: Dr Cannon Followed MANAGEMENT OF PATIENT CARE PER NURSING PROTOCOL Performed By: #### L501.080 #### [facility] Point [facility] [place] [address] BEDSIDE GLUCOSE Collected: 08/13/2017 Status: F Source: [place] 11:03 AM [facility] REPOSITORY TYPE CODE TESTS RESULT OUT OF REFERENCE UNITS RANGE LAB L501.080 70-110 mg/dL High BEDSIDE GLU 261 Result Comment: MANAGEMENT OF PATIENT CARE PER NURSING PROTOCOL Performed By: #### L501.080 #### [facility] Point of Care [address] [place] [address] BEDSIDE GLUCOSE Collected: 08/13/2017 Status: F Source: [place] 6:33 AM [facility] REPOSITORY TYPE CODE TESTS RESULT OUT OF REFERENCE UNITS RANGE LAB L501.080 70-110 mg/dL High BEDSIDE GLU 187 Result Comment: MANAGEMENT OF PATIENT CARE PER NURSING PROTOCOL Performed By: #### L501.080 #### [facility] Point of Care [address] [place] [address] PROTHROMBIN TIME W/INR Collected: 08/13/2017 Status: F Source: [place] 5:00 AM [facility] REPOSITORY TYPE CODE TESTS RESULT OUT OF RANGE REFERENCE UNITS LAB L300.4150 11.7-14.9 SECONDS High PROTIME 16.3 LAB L300.4200 Normal INR 1.4 Performed By: #### L300.3900 #### [facility] [address] [place], [address] BEDSIDE GLUCOSE Collected: 08/13/2017 Status: F Source: [place] 2:31 AM [facility] REPOSITORY TYPE CODE TESTS RESULT OUT OF REFERENCE UNITS RANGE LAB L501.080 70-110 mg/dL High BEDSIDE GLU 127 Result Comment: MANAGEMENT OF PATIENT CARE PER NURSING PROTOCOL Performed By: #### L501.080 #### [facility] Point of Care [address] [place] [address] BEDSIDE GLUCOSE Collected: 08/12/2017 Status: F Source: [place] 9:06 PM [facility] REPOSITORY TYPE CODE TESTS RESULT OUT OF REFERENCE UNITS RANGE LAB L501.080 70-110 mg/dL High BEDSIDE GLU 271 Result Comment: MANAGEMENT OF PATIENT CARE PER NURSING PROTOCOL Performed By: #### L501.080 #### [facility] Point of Care [address] [place] [address] BEDSIDE GLUCOSE Collected: 08/12/2017 Status: F Source: [place] 4:44 PM [facility] REPOSITORY TYPE CODE TESTS RESULT OUT OF REFERENCE UNITS RANGE LAB L501.080 70-110 mg/dL High BEDSIDE GLU 226 Result Comment: MANAGEMENT OF PATIENT CARE PER NURSING PROTOCOL Performed By: #### L501.080 #### [facility] Point of Care [address] [place] [address] BEDSIDE GLUCOSE Collected: 08/12/2017 Status: F Source: [place] 11:09 AM [facility] REPOSITORY TYPE CODE TESTS RESULT OUT OF REFERENCE UNITS RANGE LAB L501.080 70-110 mg/dL High BEDSIDE GLU 228 Result Comment: MANAGEMENT OF PATIENT CARE PER NURSING PROTOCOL Performed By: #### L501.080 #### [facility] Point of Care [address] [place] [address] BEDSIDE GLUCOSE Collected: 08/12/2017 Status: F Source: [place] 6:27 AM [facility] REPOSITORY TYPE CODE TESTS RESULT OUT OF REFERENCE UNITS RANGE LAB L501.080 70-110 mg/dL High BEDSIDE GLU 158 Result Comment: MANAGEMENT OF PATIENT CARE PER NURSING PROTOCOL Performed By: #### L501.080 #### [facility] Point of Care [address] [place] [address] PROTHROMBIN TIME W/INR Collected: 08/12/2017 Status: F Source: [place] 5:05 AM [facility] REPOSITORY TYPE CODE TESTS RESULT OUT OF RANGE REFERENCE UNITS LAB L300.4150 11.7-14.9 SECONDS High PROTIME 15.9 LAB L300.4200 Normal INR 1.3 Performed By: #### L300.3900 #### [facility] [address] [place], [address] BEDSIDE GLUCOSE Collected: 08/12/2017 Status: F Source: [place] 2:12 AM [facility] REPOSITORY TYPE CODE TESTS RESULT OUT OF REFERENCE UNITS RANGE LAB L501.080 70-110 mg/dL High BEDSIDE GLU 136 Result Comment: MANAGEMENT OF PATIENT CARE PER NURSING PROTOCOL Performed By: #### L501.080 #### [facility] Point of Care [address] [place] [address] BEDSIDE GLUCOSE Collected: 08/11/2017 Status: F Source: [place] 8:53 PM [facility] REPOSITORY TYPE CODE TESTS RESULT OUT OF REFERENCE UNITS RANGE LAB L501.080 70-110 mg/dL High BEDSIDE GLU 221 Result Comment: Dr Cannon Followed MANAGEMENT OF PATIENT CARE PER NURSING PROTOCOL Performed By: #### L501.080 #### [facility] Point of Care [address] [place] [address] DISCHARGE SUMMARY Observed: 08/11/2017 Status: F Source: [place] 5:48 PM [facility] REPOSITORY [facility] Medical Records Department [address] [place] [address] Discharge Summary 08/11/17 0909 MR#: [id number] Acct: [id number] Name: DAVID LOUIS Rep #: [id number] : 1940 76 From: José Manuel Hernandez MD PCP: Wili Nelson DO Status: ADM IN Location: [place] [address] ADDENDUM by José Manuel Hernandez MD on 08/11/17 at 1748 Code Visit Resident had multiple episodes of hypoglycemia on Humulin R U-500, insulin changed to combination of Levemir, Novolog, defer to primary care provider for further management. 08/11/17 1748 <Electronically signed by José Manuel Hernandez MD> Date José Manuel Hernandez MD cc: Wili Nelson DO; José Manuel Hernandez MD * Signed Discharge Date and Diagnosis Date of Admission: 08/06/17 Date of Discharge: 08/13/17 - Secondary Discharge Diagnosis Chronic Problems Diabetes mellitus (Chronic) Morbid obesity (Chronic) Depression (Chronic) Chronic kidney disease (Chronic) Kidney stones (Chronic) Colonic polyp (Chronic) Thromboembolism (Chronic) BPH (benign prostatic hyperplasia) (Chronic) Super obesity (Chronic) History of nephrolithiasis (Chronic) Debility (Chronic) Noncompliance (Chronic) with CPAP and follow up and with diet History of kidney stones (Chronic) COPD (chronic obstructive pulmonary disease) (Chronic) Type II diabetes mellitus, uncontrolled (Chronic) History of depression (Chronic) History of other venous thrombosis and embolism (Chronic) HLD (hyperlipidemia) (Chronic) HTN (hypertension) (Chronic) NILO (obstructive sleep apnea) (Chronic) Chronic renal failure, stage 3 (moderate) (Chronic) Bifascicular bundle branch block (Chronic) Colon polyps (Chronic) Family history of colon cancer (Chronic) Hospital Course and Treatment Imaging Results: 08/06/17 19:42 Diet: Calorie Controlled Is pt able to select menu?: Yes How many daily calories?: 1800 calorie Labs (Last 48 Hours) PT INR POC Glucose 301 H 210 H 285 H PT 17.5 H INR 1.5 POC Glucose 229 H 202 H PT INR POC Glucose 198 H 222 H 250 H PT 17.2 H INR 1.5 POC Glucose 251 H 175 H Operations: None Procedures: None Summary of Care Provided: The patient is a 76 year old Male with below past medical history hospitalized for debility, encephalopathy, secondary to MRSA urinary tract infection, complicated by untreated severe obstructive sleep apnea, admitted to TCU for rehabilitation, strengthening. [] Will discharge to sleep lab 08/13/2017 for sleep study. Will discharge home with spouse 08/14/2017 after sleep study. Resident has snoring, hypoxia, morning headaches, somnolence, fatigue, super obesity, requring sleep study. Discharge Diet: No Restrictions Discharge Activity: Return to Normal Activity, Use Walker Weight Bearing Status: Weight bearing as tolerated Call your doctor if you observe: Fever of 101 or Higher, Inability to urinate, Inability to have a bowel movement, Shortness of breath, Chest pain, Uncontrolled pain Home Medications: Medications to take at Discharge Atorvastatin Calcium [Lipitor] 40 mg PO QHS 05/29/15 Citalopram [Celexa] 40 mg PO DAILY 05/29/15 Fluticasone 0.05% [Flonase Nasal Acampo] 1 spray NASAL BID PRN 05/29/15 Tamsulosin HCl [Flomax] 0.4 mg PO DAILY 07/08/16 Metoprolol Succinate 100 mg PO DAILY 02/08/17 Losartan Potassium [Cozaar] 100 mg PO DAILY 07/24/17 Nystatin Powder [Mycostatin Powder] 1 applic TOPICAL BID 08/06/17 Acetaminophen [Tylenol] 1,000 mg PO Q8H PRN PRN tablet 08/11/17 Albuterol Inhaler [Ventolin Hfa] 2 puff INHALATION Q6HWA.RT #1 inhaler 08/11/17 Doxycycline 100 mg PO BID #2 cap 08/11/17 Insulin Aspart [Novolog Flexpen] 13 units SC TIDAC #1 flexpen 08/11/17 Insulin Detemir [Levemir FlexPen] 20 units SC BID #1 insuln.pen 08/11/17 Menthol/Lanolin/Calamine/Znox [Calmoseptine Ointment] 1 applic TOPICAL TID tube 08/11/17 Metoprolol(XL)Succ [Toprol Xl (Beta Zen)] 50 mg PO DAILY #30 tab 08/11/17 Mineral Oil/Petrolatum,White [Eucerin] 1 applic TOPICAL BID@0600,2200 jar 08/11/17 Warfarin [Coumadin] 6 mg PO DAILY@1700 #30 tab 08/11/17 Following Prescrptions Were Given to Patient: Albuterol Inhaler [Ventolin Hfa] 2 puff INHALATION Q6HWA.RT #1 inhaler Insulin Aspart [Novolog Flexpen] 13 units SC TIDAC #1 flexpen Metoprolol(XL)Succ [Toprol Xl (Beta Zen)] 50 mg PO DAILY #30 tab Warfarin [Coumadin] 6 mg PO DAILY@1700 #30 tab Doxycycline 100 mg PO BID #2 cap Insulin Detemir [Levemir FlexPen] 20 units SC BID #1 insuln.pen Other Amb Orders: Prothrombin Time w/INR Time Frame: 1 Day, Location: Laboratory Primary Care Physician: Wili Nelson DO [Primary Care Provider] - Please follow up with your Primary Care Physician in: 1 week. Disposition: Home Patient Condition:: Stable Meaningful Use Info Meaningful Use Diagnoses (Choose all that apply): None applicable 08/11/17912 <Electronically signed by José Manuel Hernandez MD> Date José Manuel Hernandez MD Cosigner Signature (if applicable): Date CC: Wili Nelson DO; José Manuel Hernandez MD Signed BEDSIDE GLUCOSE Collected: 08/11/2017 Status: F Source: [place] 4:51 PM [facility] REPOSITORY TYPE CODE TESTS RESULT OUT OF REFERENCE UNITS RANGE LAB L501.080 70-110 mg/dL High BEDSIDE GLU 161 Result Comment: MANAGEMENT OF PATIENT CARE PER NURSING PROTOCOL Performed By: #### L501.080 #### [facility] Point of Care [address] [place] [address] BEDSIDE GLUCOSE Collected: 08/11/2017 Status: F Source: [place] 11:07 AM [facility] REPOSITORY TYPE CODE TESTS RESULT OUT OF REFERENCE UNITS RANGE LAB L501.080 70-110 mg/dL High BEDSIDE GLU 153 Result Comment: MANAGEMENT OF PATIENT CARE PER NURSING PROTOCOL Performed By: #### L501.080 #### [facility] Point of Care [address] [place] [address] DISCHARGE INSTRUCTION Observed: 08/11/2017 Status: F Source: [place] 9:09 AM [facility] RE[facility] Medical Records Department [address] [place] [address] Instructions for Home/Discharge Instructions 08/11/17906 MR#: [id number] Acct: [id number] Name: DAVID LOUIS Rep #: [id number] : 1940 76 From: José Manuel Hernandez MD PCP: Wili Nelson DO Status: ADM IN - Discharge Diagnoses Current Active Problems: Current Active and Chronic Problems Diabetes mellitus (Chronic) Morbid obesity (Chronic) Depression (Chronic) Chronic kidney disease (Chronic) Kidney stones (Chronic) Colonic polyp (Chronic) Thromboembolism (Chronic) You will use the following diet at home:: No restrictions, Regular Your food should be the consistency of: Regular Your liquids should be the consistency of: Regular/Thin Discharge Activity: Return to Normal Activity, Use Walker Weight Bearing Status: Weight bearing as tolerated Call your doctor if you observe: Fever of 101 or Higher, Inability to urinate, Inability to have a bowel movement, Shortness of breath, Chest pain, Uncontrolled pain Allergies/Adverse Reactions: Allergies MARGIE Inhibitors Allergy (Unknown, Verified 08/04/17 19:15) Unknown cefepime Allergy (Verified 08/04/17 19:15) Other WEAKNESS AND FALLING ipodate [Ipodate] Allergy (Verified 08/04/17 19:15) Shortness of breath levofloxacin [Levofloxacin] Allergy (Verified 08/04/17 19:15) Anaphylaxis lisinopril Allergy (Verified 08/04/17 19:15) Shortness of breath ofloxacin Allergy (Verified 08/04/17 19:15) Unknown Quinolones Allergy (Verified 08/04/17 19:15) Anaphylaxis Medications to take at Discharge Atorvastatin Calcium [Lipitor] 40 mg PO QHS 05/29/15 Citalopram [Celexa] 40 mg PO DAILY 05/29/15 Fluticasone 0.05% [Flonase Nasal Acampo] 1 spray NASAL BID PRN 05/29/15 Tamsulosin HCl [Flomax] 0.4 mg PO DAILY 07/08/16 Metoprolol Succinate 100 mg PO DAILY 02/08/17 Losartan Potassium [Cozaar] 100 mg PO DAILY 07/24/17 Nystatin Powder [Mycostatin Powder] 1 applic TOPICAL BID 08/06/17 Acetaminophen [Tylenol] 1,000 mg PO Q8H PRN PRN tablet 08/11/17 Albuterol Inhaler [Ventolin Hfa] 2 puff INHALATION Q6HWA.RT #1 inhaler 08/11/17 Doxycycline 100 mg PO BID #2 cap 08/11/17 Insulin Aspart [Novolog Flexpen] 13 units SC TIDAC #1 flexpen 08/11/17 Insulin Detemir [Levemir FlexPen] 20 units SC BID #1 insuln.pen 08/11/17 Menthol/Lanolin/Calamine/Znox [Calmoseptine Ointment] 1 applic TOPICAL TID tube 08/11/17 Metoprolol(XL)Succ [Toprol Xl (Beta Zen)] 50 mg PO DAILY #30 tab 08/11/17 Mineral Oil/Petrolatum,White [Eucerin] 1 applic TOPICAL BID@0600,2200 jar 08/11/17 Warfarin [Coumadin] 6 mg PO DAILY@1700 #30 tab 08/11/17 The following prescriptions were given: Albuterol Inhaler [Ventolin Hfa] 2 puff INHALATION Q6HWA.RT #1 inhaler Insulin Aspart [Novolog Flexpen] 13 units SC TIDAC #1 flexpen Metoprolol(XL)Succ [Toprol Xl (Beta Zen)] 50 mg PO DAILY #30 tab Warfarin [Coumadin] 6 mg PO DAILY@1700 #30 tab Doxycycline 100 mg PO BID #2 cap Insulin Detemir [Levemir FlexPen] 20 units SC BID #1 insuln.pen Orders to be completed after discharge: Prothrombin Time w/INR Time Frame: 1 Day, Location: Laboratory Primary Care Physician: Wili Nelson DO [Primary Care Provider] - Please follow up with your Primary Care Physician in: 1 week. Proposed Discharge Date: 08/13/17 08/11/17908 <Electronically signed by José Manuel Hernandez MD> Date José Manuel Hernandez MD CC: Wili Nelson DO BEDSIDE GLUCOSE Collected: 08/11/2017 Status: F Source: [place] 6:11 AM [facility] REPOSITORY TYPE CODE TESTS RESULT OUT OF REFERENCE UNITS RANGE LAB L501.080 70-110 mg/dL High BEDSIDE GLU 175 Result Comment: MANAGEMENT OF PATIENT CARE PER NURSING PROTOCOL Performed By: #### L501.080 #### [facility] Point of Care [address] [place] [address] PROTHROMBIN TIME W/INR Collected: 08/11/2017 Status: F Source: [place] 5:05 AM [facility] REPOSITORY TYPE CODE TESTS RESULT OUT OF RANGE REFERENCE UNITS LAB L300.4150 11.7-14.9 SECONDS High PROTIME 17.2 LAB L300.4200 Normal INR 1.5 Performed By: #### L300.3900 #### [facility] [address] [place], [address] BEDSIDE GLUCOSE Collected: 08/11/2017 Status: F Source: [place] 1:52 AM [facility] REPOSITORY TYPE CODE TESTS RESULT OUT OF REFERENCE UNITS RANGE LAB L501.080 70-110 mg/dL High BEDSIDE GLU 251 Result Comment: MANAGEMENT OF PATIENT CARE PER NURSING PROTOCOL Performed By: #### L501.080 #### [facility] Point of Care [address] [place] [address] BEDSIDE GLUCOSE Collected: 08/10/2017 Status: F Source: [place] 9:22 PM [facility] REPOSITORY TYPE CODE TESTS RESULT OUT OF REFERENCE UNITS RANGE LAB L501.080 70-110 mg/dL High BEDSIDE GLU 250 Result Comment: Dr Orders Followed MANAGEMENT OF PATIENT CARE PER NURSING PROTOCOL Performed By: #### L501.080 #### [facility] Point of Care [address] [place] [address] BEDSIDE GLUCOSE Collected: 08/10/2017 Status: F Source: [place] 5:17 PM [facility] REPOSITORY TYPE CODE TESTS RESULT OUT OF REFERENCE UNITS RANGE LAB L501.080 70-110 mg/dL High BEDSIDE GLU 222 Result Comment: Dr Orders Followed MANAGEMENT OF PATIENT CARE PER NURSING PROTOCOL Performed By: #### L501.080 #### [facility] Point of Care [address] [place] [address] BEDSIDE GLUCOSE Collected: 08/10/2017 Status: F Source: [place] 11:03 AM [facility] REPOSITORY TYPE CODE TESTS RESULT OUT OF REFERENCE UNITS RANGE LAB L501.080 70-110 mg/dL High BEDSIDE GLU 198 Result Comment: MANAGEMENT OF PATIENT CARE PER NURSING PROTOCOL Performed By: #### L501.080 #### [facility] Point of Care [address] [place] [address] BEDSIDE GLUCOSE Collected: 08/10/2017 Status: F Source: [place] 6:40 AM [facility] REPOSITORY TYPE CODE TESTS RESULT OUT OF REFERENCE UNITS RANGE LAB L501.080 70-110 mg/dL High BEDSIDE GLU 202 Result Comment: MANAGEMENT OF PATIENT CARE PER NURSING PROTOCOL Performed By: #### L501.080 #### [facility] Point of Care [address] [place] [address] PROTHROMBIN TIME W/INR Collected: 08/10/2017 Status: F Source: [place] 5:05 AM [facility] REPOSITORY TYPE CODE TESTS RESULT OUT OF RANGE REFERENCE UNITS LAB L300.4150 11.7-14.9 SECONDS High PROTIME 17.5 LAB L300.4200 Normal INR 1.5 Performed By: #### L300.3900 #### [facility] [address] [place], [address] BEDSIDE GLUCOSE Collected: 08/10/2017 Status: F Source: [place] 2:02 AM [facility] REPOSITORY TYPE CODE TESTS RESULT OUT OF REFERENCE UNITS RANGE LAB L501.080 70-110 mg/dL High BEDSIDE GLU 229 Result Comment: MANAGEMENT OF PATIENT CARE PER NURSING PROTOCOL Performed By: #### L501.080 #### [facility] Point of Care [address] [place] [address] BEDSIDE GLUCOSE Collected: 08/09/2017 Status: F Source: [place] 9:11 PM [facility] REPOSITORY TYPE CODE TESTS RESULT OUT OF REFERENCE UNITS RANGE LAB L501.080 70-110 mg/dL High BEDSIDE GLU 285 Result Comment: MANAGEMENT OF PATIENT CARE PER NURSING PROTOCOL Performed By: #### L501.080 #### [facility] Point of Care [address] [place] [address] BEDSIDE GLUCOSE Collected: 08/09/2017 Status: F Source: [place] 4:45 PM [facility] REPOSITORY TYPE CODE TESTS RESULT OUT OF REFERENCE UNITS RANGE LAB L501.080 70-110 mg/dL High BEDSIDE GLU 210 Result Comment: MANAGEMENT OF PATIENT CARE PER NURSING PROTOCOL Performed By: #### L501.080 #### [facility] Point of Care [address] [place] [address] BEDSIDE GLUCOSE Collected: 08/09/2017 Status: F Source: [place] 11:16 AM [facility] REPOSITORY TYPE CODE TESTS RESULT OUT OF REFERENCE UNITS RANGE LAB L501.080 70-110 mg/dL High BEDSIDE GLU 301 Result Comment: MANAGEMENT OF PATIENT CARE PER NURSING PROTOCOL Performed By: #### L501.080 #### [facility] Point of Care [address] [place] [address] BEDSIDE GLUCOSE Collected: 08/09/2017 Status: F Source: [place] 6:45 AM [facility] REPOSITORY TYPE CODE TESTS RESULT OUT OF REFERENCE UNITS RANGE LAB L501.080 70-110 mg/dL High BEDSIDE GLU 273 Result Comment: MANAGEMENT OF PATIENT CARE PER NURSING PROTOCOL Performed By: #### L501.080 #### [facility] Point of Care [address] [place] [address] PROTHROMBIN TIME W/INR Collected: 08/09/2017 Status: F Source: [place] 6:21 AM [facility] REPOSITORY TYPE CODE TESTS RESULT OUT OF RANGE REFERENCE UNITS LAB L300.4150 11.7-14.9 SECONDS High PROTIME 17.6 LAB L300.4200 Normal INR 1.5 Performed By: #### L300.3900 #### [facility] [address] [place], [address] BEDSIDE GLUCOSE Collected: 08/09/2017 Status: F Source: [place] 1:58 AM [facility] REPOSITORY TYPE CODE TESTS RESULT OUT OF REFERENCE UNITS RANGE LAB L501.080 70-110 mg/dL High BEDSIDE GLU 342 Result Comment: MANAGEMENT OF PATIENT CARE PER NURSING PROTOCOL Performed By: #### L501.080 #### [facility] Point of Care [address] [place] [address] BEDSIDE GLUCOSE Collected: 08/08/2017 Status: F Source: PATRICIA 9:00 PM [facility] REPOSITORY TYPE CODE TESTS RESULT OUT OF REFERENCE UNITS RANGE LAB L501.080 70-110 mg/dL High BEDSIDE GLU 307 Result Comment: MANAGEMENT OF PATIENT CARE PER NURSING PROTOCOL Performed By: #### L501.080 #### [facility] Point of Care [address] [place] [address] BEDSIDE GLUCOSE Collected: 08/08/2017 Status: F Source: PATRICIA 4:41 PM [facility] REPOSITORY TYPE CODE TESTS RESULT OUT OF REFERENCE UNITS RANGE LAB L501.080 70-110 mg/dL High BEDSIDE GLU 303 Result Comment: MANAGEMENT OF PATIENT CARE PER NURSING PROTOCOL Performed By: #### L501.080 #### [facility] Point of Care [address] [place] [address] BEDSIDE GLUCOSE Collected: 08/08/2017 Status: F Source: PATRICIA 11:06 AM [facility] REPOSITORY TYPE CODE TESTS RESULT OUT OF REFERENCE UNITS RANGE LAB L501.080 70-110 mg/dL High BEDSIDE GLU 152 Result Comment: MANAGEMENT OF PATIENT CARE PER NURSING PROTOCOL Performed By: #### L501.080 #### [facility] Point of Care [address] [place], [place] [id number] PROTHROMBIN TIME W/INR Collected: 08/08/2017 Status: F Source: PATRICIA 8:00 AM [facility] REPOSITORY TYPE CODE TESTS RESULT OUT OF RANGE REFERENCE UNITS LAB L300.4150 11.7-14.9 SECONDS High PROTIME 15.4 LAB L300.4200 Normal INR 1.3 Performed By: #### L300.3900 #### [facility] [address] [place], [address] BEDSIDE GLUCOSE Collected: 08/08/2017 Status: F Source: PATRICIA 6:53 AM [facility] REPOSITORY TYPE CODE TESTS RESULT OUT OF REFERENCE UNITS RANGE LAB L501.080 70-110 mg/dL High BEDSIDE GLU 181 Result Comment: MANAGEMENT OF PATIENT CARE PER NURSING PROTOCOL Performed By: #### L501.080 #### [facility] Point of Care [address] [place] [address] BEDSIDE GLUCOSE Collected: 08/08/2017 Status: F Source: PATRICIA 3:20 AM [facility] REPOSITORY TYPE CODE TESTS RESULT OUT OF REFERENCE UNITS RANGE LAB L501.080 70-110 mg/dL High BEDSIDE GLU 170 Result Comment: MANAGEMENT OF PATIENT CARE PER NURSING PROTOCOL Performed By: #### L501.080 #### [facility] Point of Care [address] [place] [address] BEDSIDE GLUCOSE Collected: 08/08/2017 Status: F Source: PATRICIA 1:49 AM [facility] REPOSITORY TYPE CODE TESTS RESULT OUT OF RANGE REFERENCE UNITS LAB L501.080 70-110 mg/dL Normal BEDSIDE GLU 95 Result Comment: MANAGEMENT OF PATIENT CARE PER NURSING PROTOCOL Performed By: #### L501.080 #### [facility] Point of Care [address] [place] [address] BEDSIDE GLUCOSE Collected: 08/08/2017 Status: F Source: PATRICIA 1:29 AM [facility] REPOSITORY TYPE CODE TESTS RESULT OUT OF REFERENCE UNITS RANGE LAB L501.080 70-110 mg/dL Low alert BEDSIDE GLU 40 Result Comment: MANAGEMENT OF PATIENT CARE PER NURSING PROTOCOL Performed By: #### L501.080 #### [facility] Point of Care [address] [place] [address] BEDSIDE GLUCOSE Collected: 08/08/2017 Status: F Source: PATRICIA 1:12 AM [facility] REPOSITORY TYPE CODE TESTS RESULT OUT OF REFERENCE UNITS RANGE LAB L501.080 70-110 mg/dL Low alert BEDSIDE GLU 33 Result Comment: MANAGEMENT OF PATIENT CARE PER NURSING PROTOCOL Performed By: #### L501.080 #### [facility] Point of Care [address] [place] [address] BEDSIDE GLUCOSE Collected: 08/07/2017 Status: F Source: PATRICIA 9:01 PM [facility] REPOSITORY TYPE CODE TESTS RESULT OUT OF REFERENCE UNITS RANGE LAB L501.080 70-110 mg/dL High BEDSIDE GLU 128 Result Comment: MANAGEMENT OF PATIENT CARE PER NURSING PROTOCOL Performed By: #### L501.080 #### [facility] Point of Care [address] [place] [address] BEDSIDE GLUCOSE Collected: 08/07/2017 Status: F Source: PATRICIA 4:45 PM [facility] REPOSITORY TYPE CODE TESTS RESULT OUT OF REFERENCE UNITS RANGE LAB L501.080 70-110 mg/dL High BEDSIDE GLU 207 Result Comment: Dr Cannon Followed MANAGEMENT OF PATIENT CARE PER NURSING PROTOCOL Performed By: #### L501.080 #### [facility] Point of Care [address] [place] [address] BEDSIDE GLUCOSE Collected: 08/07/2017 Status: F Source: PATRICIA 11:15 AM [facility] REPOSITORY TYPE CODE TESTS RESULT OUT OF REFERENCE UNITS RANGE LAB L501.080 70-110 mg/dL High BEDSIDE GLU 180 Result Comment: MANAGEMENT OF PATIENT CARE PER NURSING PROTOCOL Performed By: #### L501.080 #### [facility] Point of Care [address] [place] [address] BEDSIDE GLUCOSE Collected: 08/07/2017 Status: F Source: PATRICIA 8:48 AM [facility] REPOSITORY TYPE CODE TESTS RESULT OUT OF RANGE REFERENCE UNITS LAB L501.080 70-110 mg/dL Normal BEDSIDE GLU 88 Result Comment: MANAGEMENT OF PATIENT CARE PER NURSING PROTOCOL Performed By: #### L501.080 #### [facility] Point of Care [address] [place] [address] BEDSIDE GLUCOSE Collected: 08/07/2017 Status: F Source: PATRICIA 6:45 AM [facility] REPOSITORY TYPE CODE TESTS RESULT OUT OF RANGE REFERENCE UNITS LAB L501.080 70-110 mg/dL Normal BEDSIDE GLU 95 Result Comment: MANAGEMENT OF PATIENT CARE PER NURSING PROTOCOL Performed By: #### L501.080 #### [facility] Point of Care [address] [place] [address] CBC W/DIFF, AUTOMATED Collected: 08/07/2017 Status: F Source: PATRICIA 5:20 AM [facility] REPOSITORY TYPE CODE TESTS RESULT OUT OF RANGE REFERENCE UNITS LAB L100.1000 4.4-11.0 K/mm3 Normal WBC 6.8 LAB L100.1200 4.6-6.2 M/mm3 Low RBC 4.34 LAB L100.1300 13.0-16.5 g/dl Low HGB 12.6 LAB L100.1400 40-54 % Low HCT 38.6 LAB L100.1500 80-94 fL Normal MCV 88.9 LAB L100.1600 27.0-32.0 pg Normal MCH 29.0 LAB L100.1700 32-36 g/gl Normal MCHC 32.6 LAB L100.1810 11.6-14.6 % Normal RDW CV 13.8 LAB L100.1820 35.1-43.9 fl High RDW SD 44.0 LAB L100.1900 150-450 K/mm3 Normal PLT 224 LAB L100.2000 6.2-12.0 fl Normal MPV 10.0 LAB L100.2100 47-70 % High NEUT% 74.4 LAB L100.2200 19-41 % Low LY% 12.3 LAB L100.2300 0-10 % Normal MONO% 9.4 LAB L100.2400 0-5 % Normal EO% 3.1 LAB L100.2500 0-1 % Normal BASO% 0.4 LAB L100.2550 0.0-0.9 % Normal IM GRAN % 0.400 Result Comment: IG% - Immature Granulocytes (promyelocytes, myelocytes and metamyelocytes) > 1% indicates that a LEFT SHIFT is Present. LAB L100.2620 2.0-7.7 X10 3/uL Normal Absolute Neut 5.1 LAB L100.2720 0.83-4.51 X10 3/ul Normal Absolute Lymph 0.84 Performed By: #### L100.0100 #### [facility] [address] [place], [address] BASIC METABOLIC Collected: 08/07/2017 Status: F Source: [place] [facility] ([facility]) 5:20 AM [facility] REPOSITORY TYPE CODE TESTS RESULT OUT OF RANGE REFERENCE UNITS LAB L501.0100 74-106 mg/dL Normal GLU 85 Result Comment: Please note revised GLUCOSE reference range effective 2017. LAB L501.1000 7-18 mg/dL High BUN 22 LAB L501.1100 0.70-1.30 mg/dL High CREAT,SERUM 1.73 Result Comment: The validity of the calculated GFR AND GFRAA in patients over 70 years has not been determined. Clinical correlation is essential. LAB L501.1110 >60 mL/min Low EST GFR 41 Result Comment: Non- GFR Calc LAB L501.1115 >60 mL/min Low EST GFR - AA 50 Result Comment: GFR Calc LAB L501.1255 ml/min Normal Estimated CRCL 39.87 LAB L501.1300 10-20 RATIO Normal BUN/CRE 12.7 LAB L501.2200 8.5-10 mg/dL Normal .1 CA 8.5 LAB L501.5300 136-14 mmol/L Normal 5 NA 139 LAB L501.5600 3.5-5. mmol/L Normal 1 K 3.9 LAB L501.5900 98-107 mmol/L Normal CL 106 LAB L501.6100 21.0-3 mmol/L Normal 2.0 CO2 25.0 LAB L501.6200 5-15 Normal GAP 8 Performed By: #### L500.2500 #### [facility] [address] [place], [address] BEDSIDE GLUCOSE Collected: 08/07/2017 Status: F Source: PATRICIA 1:03 AM [facility] REPOSITORY TYPE CODE TESTS RESULT OUT OF RANGE REFERENCE UNITS LAB L501.080 70-110 mg/dL Normal BEDSIDE GLU 83 Result Comment: MANAGEMENT OF PATIENT CARE PER NURSING PROTOCOL Performed By: #### L501.080 #### [facility] Point of Care [address] [place] [address] BEDSIDE GLUCOSE Collected: 08/07/2017 Status: F Source: PATRICIA 12:37 AM [facility] REPOSITORY TYPE CODE TESTS RESULT OUT OF REFERENCE UNITS RANGE LAB L501.080 70-110 mg/dL Low BEDSIDE GLU 66 Result Comment: MANAGEMENT OF PATIENT CARE PER NURSING PROTOCOL Performed By: #### L501.080 #### [facility] Point of Care [address] [place] [address] BEDSIDE GLUCOSE Collected: 08/07/2017 Status: F Source: PATRICIA 12:20 AM [facility] REPOSITORY TYPE CODE TESTS RESULT OUT OF REFERENCE UNITS RANGE LAB L501.080 70-110 mg/dL Low BEDSIDE GLU 50 Result Comment: MANAGEMENT OF PATIENT CARE PER NURSING PROTOCOL Performed By: #### L501.080 #### [facility] Point of Care [address] [place] [address] BEDSIDE GLUCOSE Collected: 08/07/2017 Status: F Source: PATRICIA 12:00 AM [facility] REPOSITORY TYPE CODE TESTS RESULT OUT OF REFERENCE UNITS RANGE LAB L501.080 70-110 mg/dL Low alert BEDSIDE GLU 36 Result Comment: Snack Given MANAGEMENT OF PATIENT CARE PER NURSING PROTOCOL Performed By: #### L501.080 #### [facility] Point of Care [address] [place] [address] HISTORY AND PHYSICAL Observed: 08/06/2017 Status: F Source: PATRICIA EXAM 9[facility] Medical Records Department [address] [place] [address] History and Physical 08/06/172001 MR#: [id number] Acct: [id number] Name: DAVID LOUIS Rep #: [id number] : 1940 76 From: José Manuel Hernandez MD PCP: Wili Nelson DO Status: ADM IN Location: [place] [address] Problem List (1) Diabetes mellitus Status: Chronic (2) Morbid obesity Status: Chronic (3) Depression Status: Chronic (4) Chronic kidney disease Status: Chronic (5) Kidney stones Status: Chronic (6) Colonic polyp Status: Chronic (7) Thromboembolism Status: Chronic (8) Metabolic encephalopathy Status: Acute (9) MRSA (methicillin resistant staph aureus) culture positive Status: Acute (10) Cystitis Status: Acute Comment: due to MRSA (11) Debility Status: Chronic (12) Noncompliance Status: Chronic Comment: with CPAP and follow up and with diet (13) COPD (chronic obstructive pulmonary disease) Status: Chronic (14) HLD (hyperlipidemia) Status: Chronic (15) HTN (hypertension) Status: Chronic (16) NILO (obstructive sleep apnea) Status: Chronic History of Present Illness Date of Admission: 08/06/17 Chief Complaint: Here for rehabilitation, strengthening, prior to discharge home with family. The patient is a 76 year old Male with below past medical history presented to [facility] Emergency Department 08/04/2017 with weakness, UTI. 08/04/2017 CT abdomen/pelvis negative. 08/04/2017 Chest X-ray cardiomegaly with mild pulmonary vascular congestion with interstitial markings. 08/04/2017 EKG sinus bradycardia with marked sinus arrhythmia with 1st degree AV block, left axis deviation, right bundle branch block, inferior infarct, age undetermined. Increasing weakness, right lateral abdominal pain. Too weak to sit up. CBCD okay, BMP Cr 1.77, LFT okay, INR 1.2. UA > 100 WBC, blood, urine cultures sent. Zosyn IV given. 08/04/2017 Admit to Hospital. Recent hospitalization for UTI, encephalopathy. Refused short term SNF stay. Previous urine culture grew P. Aeruginosa, Strep agalactiae, MRSA. IV Zosyn, IV Vancomycin, consult Dr. King from infectious disease. BiPAP in hospital for obstructive sleep apnea. Patient's home BiPAP broken, patient/family did not call [employer] to repair BiPAP. Dr. King recommended 10 day treatment of MRSA cystitis, 3 days Vancomycin, then 7 days of Doxycycline. Resume warfarin with Lovenox bridging for history of DVT/PE. Patient is non-compliant. 08/06/2017 Admit to TCU for rehabilitation, strengthening, prior to discharge home with family. Past Medical History Past Medical History (Chronic Problems): Chronic Problems Diabetes mellitus (Chronic) Morbid obesity (Chronic) Depression (Chronic) Chronic kidney disease (Chronic) Kidney stones (Chronic) Colonic polyp (Chronic) Thromboembolism (Chronic) BPH (benign prostatic hyperplasia) (Chronic) Super obesity (Chronic) History of nephrolithiasis (Chronic) Debility (Chronic) Noncompliance (Chronic) with CPAP and follow up and with diet History of kidney stones (Chronic) COPD (chronic obstructive pulmonary disease) (Chronic) Type II diabetes mellitus, uncontrolled (Chronic) History of depression (Chronic) History of other venous thrombosis and embolism (Chronic) HLD (hyperlipidemia) (Chronic) HTN (hypertension) (Chronic) NILO (obstructive sleep apnea) (Chronic) Chronic renal failure, stage 3 (moderate) (Chronic) Bifascicular bundle branch block (Chronic) Colon polyps (Chronic) Family history of colon cancer (Chronic) Allergies MARGIE Inhibitors Allergy (Unknown, Verified 08/04/17 19:15) Unknown cefepime Allergy (Verified 08/04/17 19:15) Other WEAKNESS AND FALLING ipodate [Ipodate] Allergy (Verified 08/04/17 19:15) Shortness of breath levofloxacin [Levofloxacin] Allergy (Verified 08/04/17 19:15) Anaphylaxis lisinopril Allergy (Verified 08/04/17 19:15) Shortness of breath ofloxacin Allergy (Verified 08/04/17 19:15) Unknown Quinolones Allergy (Verified 08/04/17 19:15) Anaphylaxis Home Medications: Ambulatory Orders Medication Instructions Recorded Atorvastatin Calcium [Lipitor] 40 mg PO QHS 15 Surgical History: - - Circumcision, excision of kidney stone Psychiatric History: Depression Lives: With Family Smoking Status: Former smoker Tobacco Use: Non-smoker Alcohol: None Drugs: None - *Family History Maternal History Items: Cancer - Patient's mother of cancer but he is not sure what kind of cancer. Paternal History Items: Cancer - Father of colon cancer Offspring History Items: - - He has a son who is morbidly obese and suffers from breathing problems and heart problems. Review of Systems Constitutional: Denies: Chills, Fever, Weight Change HEENT: Denies: Head Aches, Sinus Congestion, Sinus Drainage Cardiovascular: Denies: Chest Pain, Palpitations Respiratory: Denies: Cough, Shortness of breath at rest, Sputum production Gastrointestinal: Denies: Abdominal Pain, Nausea, Vomiting Genitourinary: Denies: Dysuria Musculoskeletal: Denies: Joint Pain, Joint Tenderness Skin: Denies: Rash, Wounds Neurological: Denies: Numbness, Tingling, Focal weakness Psychiatric: Denies: Anxiety, Depression, Homicidal Ideations, Suicidal Ideations Hematologic/ Lymphatic: Denies: Easy Bruising, Easy Bleeding VTE Information - Inpt Only VTE Present on Admission: No VTE Mechan Device Prophylaxis: Knee High MARC Hose VTE Pharm Prophylaxis ordered?: No Reason prophylaxis not ordered:: Treatment Not Indicated Patient Problems: Active and Suspected Problems MRSA (methicillin resistant staph aureus) culture positive (Acute) Subtherapeutic international normalized ratio (INR) (Acute) Cystitis (Acute) due to MRSA - Physical Exam General: Alert, Oriented x3, Cooperative HEENT: Atraumatic, PERRLA, EOMI, Normocephalic Neck: Supple, No JVD, Negative Carotid Bruits Lungs: Clear to auscultation, Normal air movement Cardiovascular: Regular rate, No murmurs Abdomen: Bowel Sounds Present, Soft, Non Tender Extremities: No edema, Capillary Refill Less than 3 Seconds Skin: No rashes, No breakdown Musculoskeletal: No Tenderness to Palpation of Joints or Extremities Neurological: Cranial nerves II-XII grossly intact Psych/Mental Status: Normal Affect, Appropriate Vital Signs Temp Pulse Resp BP Pulse Ox 97.8 F 79 20 H 138/72 H 93 08/06/17 16:54 08/06/17 16:54 08/06/17 16:54 08/06/17 16:54 08/06/17 16:54 Oxygen Delivery Method Room Air Weight: 174.05 kg Body Mass Index (BMI) 52.0 Finger Stick Blood Glucose 216 Intake and Output for Last 24 Hours Intake Total 480 / 480 Balance 480 / 480 POC Glucose POC Glucose 84 Assessment/Plan Active and Suspected Problems MRSA (methicillin resistant staph aureus) culture positive (Acute) Subtherapeutic international normalized ratio (INR) (Acute) Cystitis (Acute) due to MRSA 76 year old male with below past medical history hospitalized for debility, encephalopathy, secondary to MRSA urinary tract infection, complicated by untreated severe obstructive sleep apnea, admitted to TCU for rehabilitation, strengthening, prior to discharge home with family. * Debility - PT/OT. * Pain - Tylenol 1000MG Q8H PRN mild pain. * Bowel - Miralax 34GM daily, Senna/colace 2 tablets BID, Dulcolax 10MG PO daily PRN. * Pneumonia vaccination - Administer Prevnar 13 and/or Pneumovax 23 as necessary. * DVT prophylaxis - Not necessary, on warfarin/lovenox bridge. * COPD - Albuterol 2.5MG Q4H PRN, Duoneb 3ML Q6H. * Hyperlipidemia - Atorvastatin 40MG QHS. * Depression - Citalopram 40MG daily. * MRSA UTI - Doxycycline 100MG BID thru 08/14/2017. * DVT/PE - Warfarin 5MG daily, Lovenox 170MG SC Q12H bridge, monitor INR. * Allergic rhinitis - Flonase 1 spray BID * Diabetes Mellitus II - Humulin R U-500 250 units TIDAC, severe insulin resistance. * Hypertension - Metoprolol succinate 100MG daily, Losartan 100MG daily. * Skin irritation - Calmoseptine TID bilateral buttocks, groin, perineum, Eucerin BID bilateral legs, heel. * Tinea corporis - Nystatin topical TID under breasts, groin, abdominal folds. * BPH - Tamsulosin 0.4MG daily. 08/06/172035 <Electronically signed by José Manuel Hernandez MD> Date José Manuel Hernandez MD Cosigner Signature: Date (if applicable) CC: Wili Nelson DO; José Manuel Hernandez MD Signed BEDSIDE GLUCOSE Collected: 08/06/2017 Status: F Source: PATRICIA 8:50 PM [facility] REPOSITORY TYPE CODE TESTS RESULT OUT OF RANGE REFERENCE UNITS LAB L501.080 70-110 mg/dL Normal BEDSIDE GLU 81 Result Comment: Dr Cannon Followed MANAGEMENT OF PATIENT CARE PER NURSING PROTOCOL Performed By: #### L501.080 #### [facility] Point of Care [address] [place] [address] BEDSIDE GLUCOSE Collected: 08/06/2017 Status: F Source: PATRICIA 5:18 PM [facility] REPOSITORY TYPE CODE TESTS RESULT OUT OF RANGE REFERENCE UNITS LAB L501.080 70-110 mg/dL Normal BEDSIDE GLU 84 Result Comment: MANAGEMENT OF PATIENT CARE PER NURSING PROTOCOL Performed By: #### L501.080 #### [facility] Point of Care [address] [place] [address] DISCHARGE SUMMARY Observed: 08/06/2017 Status: F Source: PATRICIA 2:58 PM [facility] Medical Records Department [address] [place] [address] Discharge Summary 08/06/17 1438 MR#: [id number] Acct: [id number] Name: DAVID LOUIS Rep #: [id number] : 1940 76 From: Derrick Yusuf DO PCP: Wili Nelson DO Status: ADM IN Location: [place] [address] Discharge Date and Diagnosis - Problem List Patient Problems: Active and Suspected Problems Metabolic encephalopathy (Acute) MRSA (methicillin resistant staph aureus) culture positive (Acute) Subtherapeutic international normalized ratio (INR) (Acute) Cystitis (Acute) due to MRSA Date of Admission: 08/04/17 Date of Discharge: 08/06/17 - Primary Discharge Diagnosis Active and Suspected Problems Metabolic encephalopathy (Acute) due to untreated NILO MRSA (methicillin resistant staph aureus) culture positive (Acute) - urine Subtherapeutic international normalized ratio (INR) (Acute) Cystitis (Acute) - due to MRSA - Secondary Discharge Diagnosis Chronic Problems BPH (benign prostatic hyperplasia) (Chronic) 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 History of nephrolithiasis (Chronic) Debility (Chronic) Noncompliance (Chronic) with CPAP and follow up and with diet History of kidney stones (Chronic) COPD (chronic obstructive pulmonary disease) (Chronic) Type II diabetes mellitus, uncontrolled (Chronic) History of depression (Chronic) History of other venous thrombosis and embolism (Chronic) HLD (hyperlipidemia) (Chronic) HTN (hypertension) (Chronic) NILO (obstructive sleep apnea) (Chronic) Chronic renal failure, stage 3 (moderate) (Chronic) Bifascicular bundle branch block (Chronic) Colon polyps (Chronic) Family history of colon cancer (Chronic) Hospital Course and Treatment Imaging Results: Clinical Impression(s) from Imaging Studies Abdomen/Pelvis CT 08/04/17 19:56 IMPRESSION: 1. No evidence of acute abdominal process or focal inflammation. No evidence of bowel dilatation or air-fluid levels to suggest ileus versus obstruction. Stable renal cysts compared to 2017 exam. Electronically Signed: Juanito Case DO at 21:28 EST , Service support , Chest X-Ray 08/04/17 20:10 IMPRESSION: Cardiomegaly with mild prominent pulmonary vascular and interstitial markings with early CHF not excluded. No large focal airspace disease. Electronically Signed: Juanito Case DO at 20:42 EST , Service support , Laboratory Tests WBC 8.5 RBC 4.70 Hgb 13.5 Hct 41.1 WBC 6.2 RBC 4.40 L Hgb 12.6 L Hct 38.8 L MCV 88.2 MCH 28.6 WBC RBC Hgb Hct MCV MCH MCHC RDW RDW Differential Plt Count WBC RBC Hgb Hct MCV MCH MCHC RDW RDW Differential Plt Count MPV WBC RBC Hgb Hct MCV MCH WBC RBC Hgb Hct MCV MCH WBC RBC Hgb Hct MCV MCH WBC RBC Hgb Hct MCV Microbiology 08/05/17 11:30 Urine Catheter - Catheter Urine Culture - Preliminary Gram positive organism Gram positive organism#2 08/04/17 21:25 Urine, Clean Catch Urine Culture - Final Meth. resistant Staph. aureus Dr. Carlos King-infectious disease Dr. Fidel Malone-pulmonary medicine Operations: None Procedures: None Summary of Care Provided: Mr. Louis is a 76-year-old male with a past medical history of diabetes mellitus type 2, COPD, depression, hyperlipidemia, history of nephrolithiasis, hypertension, super obesity, severe obstructive sleep apnea, BPH and chronic renal failure stage III who was brought to the emergency room at [facility] on 08/04/2017 with a complaint of weakness. He was recently admitted to the hospital on 07/24/2017 and discharged on 07/29/2017. He was treated for acute cystitis and metabolic encephalopathy secondary to infection. He was discharged on amoxicillin 500 mg p.o. every 8 hours for 4 days. The urine culture grew MRSA, pseudomonas aeruginosa and group B strep. MRSA and pseudomonas aeruginosa were not covered by amoxicillin. Vital signs at presentation to the emergency room were temperature 98.1, pulse rate 50, blood pressure 154/67, respiratory rate 18 and he was 95% saturated on room air. White blood cell count was normal at 8.5 with 71% neutrophils. Hemoglobin and platelets were within normal limits. Electrolytes were unremarkable and the BUN was 23 with a creatinine of 1.77 which is within his baseline creatinine. LFTs were unremarkable. Urine was nitrite negative but had greater than 100 WBCs per high-power field with rare bacteria. There was also rare yeast present. CT scan of the abdomen and pelvis without IV contrast showed no evidence of acute abdominal process or focal inflammation. There was moderate cortical atrophy of both kidneys and stable renal cysts. There were no stones reported. He was Admitted to the hospital with a diagnosis of acute cystitis, metabolic encephalopathy and generalized weakness and debility. He has a CPAP machine at home but it is broken and he has not attempted to call the [employer] to have it repaired. He has been seen by Dr. Malone in the hospital int he past and be asked to follow up in the office but, he has failed to do this. He was very lethargic when I first examined him on 08/05/17 and difficult to arouse. He could not stay awake while I was talking to him. He was seen in consultation by Dr. Malone and placed on BIPAP . He was compliant with the BIPAP and the following morning he was very alert and able to participate in a family conference with myself, the SW, his and his dtr. After explaining that the reason he is so lethargic and confused is the untreated sleep apnea and not infection he was agreeable to transfer to TCU so that he could remain on BIPAP until his sleep study which is scheduled for 08/18. He is also agreeable to follow up with Dr. Malone in the future for NILO and suspected pulmonary HTN. He was also seen in the hospital by Dr. King from [place] who has recommended 10 days of treatment for MRSA cystitis. He received 3 days of Vanco in the hospital and so will need 7 days of Doxycycline at DC. He was afebrile for the duration of his hospital stay and the WBC count was normal with a normal diff on 08/05/17. On the day of DC his lungs were diminished but CTA. The heart has a RRR and he has no gallop. He was alert and oriented X 3 and appeared to be in no distress. T INR on the day of DC was 1.2. He was not taking his Coumadin at home. He will need to stay on Lovenox Q 12 hours until the INR is >2.0. He was restarted on Warfarin on 08/05 and takes 5 mg daily. Would check an INR every 24-48 hours until he is therapeutic. He has an appt to follow up in the pulmonary clinic on 08/26. He will follow up with Dr. Nelson following DC from [facility]. This note was generated with [employer] dictation software. It may contain incorrect words, spelling, and punctuation that were not noted in checking the note before signing. Home Medications: Medications to take at Discharge Atorvastatin Calcium [Lipitor] 40 mg PO QHS 05/29/15 Citalopram [Celexa] 40 mg PO DAILY 05/29/15 Docusate Sodium [Colace] 200 mg PO QODAY PRN 05/29/15 Fluticasone 0.05% [Flonase Nasal [place]] 1 spray NASAL BID PRN 05/29/15 Tamsulosin HCl [Flomax] 0.4 mg PO DAILY 07/08/16 Metoprolol Succinate 100 mg PO DAILY 02/08/17 Losartan Potassium [Cozaar] 100 mg PO DAILY 07/24/17 Albuterol Aerosols [Ventolin Aerosols] 2.5 mg INHALATION Q4H PRN PRN vial.neb. 08/06/17 Doxycycline 100 mg PO BID #16 capsule 08/06/17 Enoxaparin [Lovenox] 170 mg SC Q12@0600,1800 syringe 08/06/17 Insulin U-500 [Humulin R U-500 (BKC)] 0.5 ml SC TIDAC ml 08/06/17 Ipratropium/Albuterol Sulfate [Duoneb] 3 ml INHALATION Q6H.RT ampul.neb 08/06/17 Nystatin Powder [Mycostatin Powder] 1 applic TOPICAL BID bottle 08/06/17 Warfarin [Coumadin] 5 mg PO DAILY@1700 tablet 08/06/17 Following Prescrptions Were Given to Patient: Doxycycline 100 mg PO BID #16 capsule Primary Care Physician: Wili Nelson DO [Primary Care Provider] - Please follow up with your Primary Care Physician in: following DC from TCU Please Follow Up With: Aicha Szymanski NP-C When: 1 week after DC from TCU Disposition: Senior Living facility - Transitional care unit Minutes spent on discharge:: 45 Patient Condition:: Good Meaningful Use Info Meaningful Use Diagnoses (Choose all that apply): None applicable Code Visit Inpatient E AND M: 53863 Disch Hosp 08/06/17 1458 <Electronically signed by Derrick Yusuf DO> Date Derrick Yusuf DO Cosigner Signature (if applicable): Date CC: Yana Yusuf; Fidel Malone D.O.; Wili Nelson DO; José Manuel Hernandez MD Signed TRANSFER TO [facility] Observed: 08/06/2017 Status: F Source: [facility] 2:38 PM [facility] Medical Records Department [address] [place] [address] Transfer to [facility] Care MR#: [id number] Acct: [id number] Name: DAVID LOUIS Malena Rep #: [id number] : 1940 76 From: Derrick Yusuf DO PCP: Wili Nelson DO Status: ADM IN DAVID LOUIS (Patient) (Health Ins. Claim No.) (Day of Discharge to Facility) Certification of patient admission REQUIRED AT TIME OF ADMISSION. I CERTIFY THAT POST-HOSPITAL ECF SERVICES ARE REQUIRED TO BE GIVEN ON AN IN-PATIENT BASIS BECAUSE OF THE ABOVE NAMED PATIENT'S NEED FOR [facility] CARE ON A CONTINUING BASIS FOR THE CONDITION(S) FOR WHICH HE/SHE WAS RECEIVING IN-PATIENT HOSPITAL SERVICES PRIOR TO HIS/HER TRANSFER TO THE ECF. 08/06/17 1438 <Electronically signed by Derrick Yusuf DO> Date Derrick Yusuf DO - Diet 08/04/17 22:54 Diet: Calorie Controlled How many daily calories?: 1800 calorie - Routine Orders/Code Status Enema Type: Fleetz Enema Frequency: Daily PRN Suppository Type: Dulcolax 10mg Suppository Frequency: Daily PRN O2 Liters per Minute: 25% FIO2 when he has BIPAP on Keep PO Greater than or Equal to (%): 88 - pt is a CO2 retainer keep the O2 sat between 89-93% - Therapies Weight Bearing: Full weight bearing Physical Therapy: Eval and Treat Occupational Therapy: Eval and Treat - Problem/Diagnosis (1) Metabolic encephalopathy Status: Acute Current Visit: Yes (2) Debility Status: Chronic Current Visit: Yes (3) Noncompliance Status: Chronic Comment: with CPAP and follow up and with diet Current Visit: Yes (4) History of kidney stones Status: Chronic Current Visit: No (5) COPD (chronic obstructive pulmonary disease) Status: Chronic Current Visit: No (6) Type II diabetes mellitus, uncontrolled Status: Chronic Current Visit: No (7) History of depression Status: Chronic Current Visit: No (8) History of other venous thrombosis and embolism Status: Chronic Current Visit: No (9) HLD (hyperlipidemia) Status: Chronic Current Visit: No (10) HTN (hypertension) Status: Chronic Current Visit: No (11) NILO (obstructive sleep apnea) Status: Chronic Current Visit: No (12) Chronic renal failure, stage 3 (moderate) Status: Chronic Current Visit: No (13) Bifascicular bundle branch block Status: Chronic Current Visit: No (14) Colon polyps Status: Chronic Current Visit: No (15) Family history of colon cancer Status: Chronic Current Visit: No (16) Cystitis Status: Acute Comment: due to MRSA Current Visit: No (17) MRSA (methicillin resistant staph aureus) culture positive Status: Acute Current Visit: No (18) Subtherapeutic international normalized ratio (INR) Status: Acute Current Visit: No (19) BPH (benign prostatic hyperplasia) Status: Chronic Current Visit: No (20) History of nephrolithiasis Status: Chronic Current Visit: No (21) Super obesity Status: Chronic Current Visit: No - Allergies/Procedures Done in Hospital Allergies/Adverse Reactions: Allergies MARGIE Inhibitors Allergy (Unknown, Verified 08/04/17 19:15) Unknown cefepime Allergy (Verified 08/04/17 19:15) Other WEAKNESS AND FALLING ipodate [Ipodate] Allergy (Verified 08/04/17 19:15) Shortness of breath levofloxacin [Levofloxacin] Allergy (Verified 08/04/17 19:15) Anaphylaxis lisinopril Allergy (Verified 08/04/17 19:15) Shortness of breath ofloxacin Allergy (Verified 08/04/17 19:15) Unknown Quinolones Allergy (Verified 08/04/17 19:15) Anaphylaxis Procedures: None - Type of Care/Length of Stay Estimated LOS: Convalescent Care Less Than 30 days Type of Care Needed: Skilled Rehab Potential: Good Prognosis: Good - Additional Orders/Day of Discharge Additional Orders: He must be on BIPAP anytime he is sleeping and also with naps. The settings are IPAP 27 and EPAP 21. The FIO2 on BIPAP should be 25%. He does not need oxygen while awake. No oxygen unless the pulse ox is <89% and if you use oxygen then only give enough to keep the sat between 89-93%. Please check the blood sugars AC and HS. He is scheduled for a sleep study on 08/18 and he will need to follow up with Dr. Malone after the sleep study to arrange for home BIPAP. H AND P will serve as current which was dated: 08/04/17 Day of Discharge: 08/06/17 - Dietary and Speech Recommendations Dietitian Recommendations/Changes: Rec 2000 calorie controlled diet. - Follow Up Care Primary Care Physician: Wili Nelson DO [Primary Care Provider] - Please follow up with your Primary Care Physician in: following DC from TCU Please Follow Up With: Aicha Szymanski NP-C When: 1 week after DC from TCU 08/06/17 1438 <Electronically signed by Derrick Yusuf DO> Date Derrick Davis Tiagosherri BOATENG CC: Fidel Malone D.O.; Wili Nelson DO; Carlos King MD; José Manuel Hernandez MD Signed 12 LEAD ELECTROCARDIOGRAM Observed: 08/06/2017 Status: F Source: [place] 1:06 PM [facility] Cardiovascular Services [address] [address] 12 Lead EKG 08/04/172102 MR#: [id number] Acct: [id number] Name: DAVID LOUIS Rep #: [id number] : 1940 76 From: Greg Phillips MD Attending Dr: Yana Yusuf Status: ADM IN Ordering Dr: Gali Smith MD Date: 08/04/17 Location: [facility] Sex: M C Admitted: 08/04/17 Test Reason : BRADYCARDIA Blood Pressure : / mmHG Vent. Rate : 055 BPM Atrial Rate : 055 BPM P-R Int : 246 ms QRS Dur : 152 ms QT Int : 526 ms P-R-T Axes : -08 -59 015 degrees QTc Int : 503 ms Sinus bradycardia with marked sinus arrhythmia with 1st degree A-V block Left axis deviation Right bundle branch block Inferior infarct , age undetermined Abnormal ECG Confirmed by GREG PHILLIPS MD ([id number]), material expeditor RONEL NAVAS ([id number]) on 08/06/2017 1:05:51 PM Referred By: CARIDAD/ABDIFATAH Confirmed By:GREG PHILLIPS MD 08/06/17 1305 Date Greg Phillips MD CC: Gali Smith MD; Wili Nelson DO Signed BEDSIDE GLUCOSE Collected: 08/06/2017 Status: F Source: [place] 11:50 AM [facility]POS[facility] TYPE CODE TESTS RESULT OUT OF REFERENCE UNITS RANGE LAB L501.080 70-110 mg/dL High BEDSIDE GLU 153 Result Comment: MANAGEMENT OF PATIENT CARE PER NURSING PROTOCOL Performed By: #### L501.080 #### [facility] Point of Care [address] [place] [address] BEDSIDE GLUCOSE Collected: 08/06/2017 Status: F Source: [place] 8:27 AM [facility]POS[facility]ORY TYPE CODE TESTS RESULT OUT OF RANGE REFERENCE UNITS LAB L501.080 70-110 mg/dL Normal BEDSIDE GLU 82 Result Comment: MANAGEMENT OF PATIENT CARE PER NURSING PROTOCOL Performed By: #### L501.080 #### [facility] Point of Care [address] [place] [address] BEDSIDE GLUCOSE Collected: 08/06/2017 Status: F Source: [place] 4:19 AM [facility]POS[facility]ORY TYPE CODE TESTS RESULT OUT OF RANGE REFERENCE UNITS LAB L501.080 70-110 mg/dL Normal BEDSIDE GLU 85 Result Comment: MANAGEMENT OF PATIENT CARE PER NURSING PROTOCOL Performed By: #### L501.080 #### [facility] Point of Care [address] [place] [address] BEDSIDE GLUCOSE Collected: 08/06/2017 Status: F Source: [place] 3:56 AM [facility] REPOS[facility]ORY TYPE CODE TESTS RESULT OUT OF REFERENCE UNITS RANGE LAB L501.080 70-110 mg/dL Low BEDSIDE GLU 64 Result Comment: MANAGEMENT OF PATIENT CARE PER NURSING PROTOCOL Performed By: #### L501.080 #### [facility] Point of Care [address] [place] [address] PROTHROMBIN TIME W/INR Collected: 08/06/2017 Status: F Source: [place] 3:38 AM [facility] REPOS[facility]ORY TYPE CODE TESTS RESULT OUT OF RANGE REFERENCE UNITS LAB L300.4150 11.7-14.9 SECONDS Normal PROTIME 14.5 LAB L300.4200 Normal INR 1.2 Performed By: #### L300.3900 #### [facility] [address] [place], [address] GLUCOSE Collected: 08/06/2017 Status: F Source: [place] 3:38 AM [facility]POS[facility]ORY TYPE CODE TESTS RESULT OUT OF RANGE REFERENCE UNITS LAB L501.0100 74-106 mg/dL Low alert GLU 44 Result Comment: Critical Result(s) Called at: 04:02:17 08/06/2017 by: RAJINDER FLORES TO BRITTNI PALENCIA MS2 Glucose result less than 50 mg/dL suggests HYPOGLYCEMIA. Please note revised GLUCOSE reference range effective 2017. Performed By: #### L501.0100 #### [facility] [address] [place], [address] HEMOGLOBIN A1C Collected: 08/06/2017 Status: F Source: [place] 3:38 AM [facility]POS[facility]ORY TYPE CODE TESTS RESULT OUT OF RANGE REFERENCE UNITS LAB L501.9985 4.2-6.3 % High HGB A1C 8.9 Performed By: #### L501.9985 #### [facility] [address] [place], [address] BEDSIDE GLUCOSE Collected: 08/06/2017 Status: F Source: [place] 3:19 AM [facility]POS[facility]ORY TYPE CODE TESTS RESULT OUT OF REFERENCE UNITS RANGE LAB L501.080 70-110 mg/dL Low alert BEDSIDE GLU 39 Result Comment: MANAGEMENT OF PATIENT CARE PER NURSING PROTOCOL Performed By: #### L501.080 #### [facility] Point of Care [address] [place] [address] BEDSIDE GLUCOSE Collected: 08/05/2017 Status: F Source: [place] 9:10 PM [facility]POS[facility]ORY TYPE CODE TESTS RESULT OUT OF REFERENCE UNITS RANGE LAB L501.080 70-110 mg/dL High BEDSIDE GLU 245 Result Comment: MANAGEMENT OF PATIENT CARE PER NURSING PROTOCOL Performed By: #### L501.080 #### [facility] Point of Care [address] [place] [address] PROTHROMBIN TIME W/INR Collected: 08/05/2017 Status: F Source: [place] 5:33 PM [facility] REPOS[facility]ORY TYPE CODE TESTS RESULT OUT OF RANGE REFERENCE UNITS LAB L300.4150 11.7-14.9 SECONDS Normal PROTIME 13.9 LAB L300.4200 Normal INR 1.1 Performed By: #### L300.3900 #### [facility] [address] [place], [address] BEDSIDE GLUCOSE Collected: 08/05/2017 Status: F Source: [place] 4:52 PM [facility] REPOS[facility]ORY TYPE CODE TESTS RESULT OUT OF REFERENCE UNITS RANGE LAB L501.080 70-110 mg/dL High BEDSIDE GLU 355 Result Comment: MANAGEMENT OF PATIENT CARE PER NURSING PROTOCOL Performed By: #### L501.080 #### [facility] Point of Care [address] [address] CONSULTATION Observed: 08/05/2017 Status: F Source: [place] 2:04 PM [facility] Medical Records Department [address] [place] [address] Consultation 08/05/17 1203 MR#: [id number] Acct: [id number] Name: DAVID LOUIS Rep #: [id number] : 1940 76 From: Adamaris WEN PCP: Wili Nelson DO Status: ADM IN Y Location: [address] ADDENDUM by Fidel Malone D.O. on 08/05/17 at 1404 Code Visit The patient was seen and examined independently in conjunction with the nurse practitioner. All data was personally reviewed, including the note below, and I agree with the added comments. The patient is a 76-year-old male, known to me from a recent hospitalization, who presented to the emergency department on August 04 with generalized weakness and deconditioning. The patient was admitted to the hospital at the beginning of July with encephalopathy. He has a known history of sleep apnea, but his home PAP machine had recently broke. Despite this, neither the patient nor his family contacted his DME provider for a replacement. He was also recommended at the conclusion of his previous hospitalization that he go to a mcc facility. However, the patient refused and opted to go home instead. He was supposed to follow-up in the pulmonary medicine clinic for a repeat polysomnogram upon his discharge. Nevertheless, the patient reports that he wished not to follow-up with the pulmonary medicine clinic and instead opted only to follow- up with his primary care provider Dr. Nelson, who apparently plans to manage his NILO in the future. He is currently scheduled to undergo a repeat polysomnogram on August 26. The patient's current BiPAP pressure settings are exceedingly high and he reports intolerance due to bloating. The patient's most recent lab work, culture data and imaging studies have all been personally reviewed. I agree with the physical examination as documented below. The patient is a morbidly obese male, in no apparent distress. He is resting comfortably in his bedside recliner. He demonstrates a poor inspiratory effort with corresponding diminished air movement bilaterally. Heart tones are regular without discernible murmurs. Abdominal exam is benign. There is no clubbing or cyanosis. Lower extremity edema is present with chronic venous stasis dermatitis. IMPRESSION/PLAN: 1. Untreated obstructive sleep apnea The patient is known to me from his prior hospitalization. He is currently noncompliant with the use of his BiPAP therapy in his home environment. His machine has been broken for period of time and neither he nor his family have attempted to contact the DME provider to obtain a replacement. The patient was supposed to follow-up with us in the pulmonary medicine clinic upon his last discharge from the hospital. However, he opted not to pursue follow-up with us and instead opted to allow his primary care physician to manage his NILO. He is currently scheduled to undergo a repeat sleep study on August 26. I do suspect that the patient's periods of confusion/altered mentation is likely the consequence of hypoventilation, given his severe obesity and subsequent CO2 retention. He is certainly in need of some form of ventilatory support in his home environment. Would recommend empirically starting BiPAP with naps and nightly, while the patient remains admitted. Would also strongly recommend a follow-up polysomnogram to reassess his current IPAP/EPAP settings. At the current time, the patient does not have a plan to follow-up in the pulmonary medicine clinic. Inpatient mcc versus rehabilitation would also be of benefit to the patient. Inpatient E AND M: [id number] Init Hosp L2 08/05/17 1406 <Electronically signed by Fidel Brown DO> Date Fidel Malone DO cc: Fidel Malone D.O.; Wili Nelson DO; Carlos King MD * Signed Problem List (1) History of kidney stones Status: Chronic (2) COPD (chronic obstructive pulmonary disease) Status: Chronic (3) Type II diabetes mellitus, uncontrolled Status: Chronic Qualifiers: (4) History of depression Status: Chronic (5) History of other venous thrombosis and embolism Status: Chronic (6) HLD (hyperlipidemia) Status: Chronic (7) HTN (hypertension) Status: Chronic (8) Morbid obesity Status: Chronic (9) NILO (obstructive sleep apnea) Status: Chronic (10) Chronic renal failure, stage 3 (moderate) Status: Chronic (11) Bifascicular bundle branch block Status: Chronic (12) Debility Status: Acute (13) Noncompliance Status: Chronic Reason for Consult Date of Consultation: 08/05/17 Reason for Consultation: untreated NILO History of Present Illness: The patient is a 76 year old M with past medical history as below who presented to the ER on 08/04 with complaints of weakness. Patient is a notably poor historian. He does endorse weakness, immobility, and generalized malaise at home. He has not been wearing BiPAP secondary to the machine being broke. He denies any fever, chills, increased sputum production, or cough. He denies any palpitations, syncope, or chest pain. He does get short of breath with any activity. He also complains of dysuria, frequency, and right flank pain but no lower abdominal pain. Denies nausea, vomiting, or diarrhea. Family apparently reported patient has been somewhat confused intermittently over the last several weeks. The patient was admitted from 07/24 - 07/29 for acute metabolic encephalopathy, polymicrobial acute cystitis, and hypoglycemia. Patient was followed by infectious disease and pulmonology at that time. Urine culture at that time revealed Streptococcus agalactiae, MRSA and pseudomonas aeruginosa. He was sent home on amoxicillin with a completion date of 07/31/17. BiPAP settings were changed to , however patient reports he is intolerant to high pressures and feels like he is very bloated. Patient did not have a home oxygen requirement upon discharge. He has been noncompliant in the past. It was strongly suggested the patient also have a repeat polysomnogram as an outpatient, as his previous settings may not have been accurate and too much pressure can lead to excessive leak, however not enough pressure could lead to significant nocturnal hypoxemia. I confirmed the patient has an appointment for repeat polysomnogram on August 26 at [facility]. The patient did not wish to follow with pulmonary medicine upon discharge and was scheduled to see Dr. Nelson, his primary care physician for follow-up. CBC on admit was relatively unremarkable, no leukocytosis and hemoglobin stable. INR was 1.2, patient has not been on his Coumadin. Chemistry remarkable for a chloride of 108, BUN 23 and creatinine 1.77. His albumin remains low at 2.8. Blood and urine cultures were obtained in the emergency room and are pending. Urinalysis did show protein, occult blood, and 500 of leukocyte esterase. There was > 100 urine WBC and rare bacteria with amorphous sediment and yeast. Chest x-ray showed cardiomegaly with mild prominent pulmonary vascular and interstitial markings with early CHF not excluded, there was no large focal airspace disease. Abdominal/pelvis CT showed no evidence of acute process or focal inflammation. No evidence of bowel dilation or air-fluid levels to suggest ileus versus obstruction. There is stable renal cysts. The patient was given a dose of IV Zosyn minute to the medical surgical floor for further evaluation and management. Infectious disease and pulmonary was consulted. An ABG was obtained on room air this morning and showed normal pH at 7.39, PCO2 45.7, and PO2 64. Oxygen saturation correlated at 92%. Bicarb was 27.6. Patient has been maintaining appropriate saturations on room air. He did not wear BiPAP overnight as it was not ordered and he did not request it. Past Medical History Past Medical History (Chronic Problems): Chronic Problems Noncompliance (Chronic) History of kidney stones (Chronic) COPD (chronic obstructive pulmonary disease) (Chronic) Type II diabetes mellitus, uncontrolled (Chronic) History of depression (Chronic) History of other venous thrombosis and embolism (Chronic) HLD (hyperlipidemia) (Chronic) HTN (hypertension) (Chronic) Morbid obesity (Chronic) NILO (obstructive sleep apnea) (Chronic) Chronic renal failure, stage 3 (moderate) (Chronic) Bifascicular bundle branch block (Chronic) Colon polyps (Chronic) Family history of colon cancer (Chronic) Allergies MARGIE Inhibitors Allergy (Unknown, Verified 08/04/17 19:15) Unknown cefepime Allergy (Verified 08/04/17 19:15) Other WEAKNESS AND FALLING ipodate [Ipodate] Allergy (Verified 08/04/17 19:15) Shortness of breath levofloxacin [Levofloxacin] Allergy (Verified 08/04/17 19:15) Anaphylaxis lisinopril Allergy (Verified 08/04/17 19:15) Shortness of breath ofloxacin Allergy (Verified 08/04/17 19:15) Unknown Quinolones Allergy (Verified 08/04/17 19:15) Anaphylaxis Home Medications: Ambulatory Orders Medication Instructions Recorded Atorvastatin Calcium [Lipitor] 40 mg PO QHS 05/29/15 Citalopram [Celexa] 40 mg PO DAILY 05/29/15 Surgical History: - - Circumcision, excision of kidney stone Psychiatric History: Depression Lives: With Family Smoking Status: Former smoker Alcohol: None Drugs: None - *Family History Maternal History Items: Cancer - Patient's mother of cancer but he is not sure what kind of cancer. Paternal History Items: Cancer - Father of colon cancer Offspring History Items: - - He has a son who is morbidly obese and suffers from breathing problems and heart problems. Review of Systems Constitutional: Reports: Malaise, Weakness, Fatigue. Denies: Anorexia, Chills, Fever, Night Sweats, Weight Change Eyes: Denies: Blurred vision, Double vision, Vision Change HEENT: Denies: Difficulty Swallowing, Dysphasia, Head Aches, Nasal bleeding, Nasal Congestion, Post Nasal Drip, Sinus Congestion, Sinus Drainage, Sore Throat, Visual Changes Cardiovascular: Reports: Edema - chronic, no increase, Paroxysmal Noc. Dyspnea. Denies: Chest Pain, Chest Tightness, Light Headedness, Orthopnea, Palpitations, Syncope Respiratory: Reports: Shortness of breath upon exertion. Denies: Cough, Hemoptysis, Shortness of breath at rest, Sputum production, Wheezing Gastrointestinal: Denies: Abdominal Pain, Constipation, Diarrhea, Dyspepsia, Hematemesis, Hematochezia, Nausea, Melena, Vomiting Genitourinary: Reports: Dysuria, Frequency, Incontinence, Nocturia, Retention. Denies: Hematuria Musculoskeletal: Reports: Back Pain - R flank pain Skin: Reports: Dryness, - - venous stasis changes. Denies: Pruritis, Wounds Neurological: Reports: Balance problems - weak, legs buckle, Confusion. Denies: Change in Speech, Difficulty swallowing, Numbness, Tingling, Tremor, Seizures Psychiatric: Reports: Depression. Denies: Anxiety, Suicidal Ideations Endocrine: Denies: Change in Body Habitus, Polydipsia, Polyuria Hematologic/ Lymphatic: Reports: Hx of blood clot. Denies: Adenopathy, Anemia, Easy Bruising, Easy Bleeding Patient Problems: Active and Suspected Problems Altered mental status (Acute) Debility (Acute) Subjective: Patient was seen and examined. He has a very flat affect and is a poor historian. He does know he has an appointment on August 26 for outpatient polysomnogram. Patient denies any current shortness of breath, cough, sputum production, chest pain, palpitations, or dizziness. He has been somewhat bradycardic, as he was last admission as well. Pulses range from 47-74 bpm. Patient remains afebrile and hemodynamically stable. Objective: Clinical Impression(s) from Imaging Studies Abdomen/Pelvis CT 08/04/17 19:56 IMPRESSION: 1. No evidence of acute abdominal process or focal inflammation. No evidence of bowel dilatation or air-fluid levels to suggest ileus versus obstruction. Stable renal cysts compared to 2017 exam. Electronically Signed: Juanito Case DO at 21:28 EST , Service support , Chest X-Ray 08/04/17 20:10 IMPRESSION: Cardiomegaly with mild prominent pulmonary vascular and interstitial markings with early CHF not excluded. No large focal airspace disease. Electronically Signed: Juanito Case DO at 20:42 EST , Service support , - Physical Exam General: Alert, Oriented x3, Cooperative, No apparent distress, - - very flat affect. No conversational dyspnea, speaking in complete sentences HEENT: Atraumatic, Normocephalic Oral: Moist Mucosa, No Gingival or Mucosal Lesions/ Ulcerations Neck: Supple, No Nodes, Trachea Midline Lungs: - - Globally diminished, poor inspiratory effort. Clear to auscultation, no dullness to percussion Cardiovascular: Regular rate, Regular Rhythm, Normal S1, Normal S2, No murmurs, No rub noted, No Gallop, - - Distant heart sounds secondary to body habitus Abdomen: Bowel Sounds Present, Soft, Non Tender, Non-Distended, Obese Extremities: No clubbing, No cyanosis, Capillary Refill Less than 3 Seconds, Edema, - - Lower extremity venous stasis changes Skin: No rashes, No breakdown Musculoskeletal: No Tenderness to Palpation of Joints or Extremities Lymphatic: No Cervical, Supraclavicular, or Inguinal Adenopathy Neurological: Cranial nerves II-XII grossly intact, Neuro grossly intact, Motor Exam 5/5 strength throughout Psych/Mental Status: Flat Affect Vital Signs Temp Pulse Resp BP Pulse Ox 98.4 F 53 L 16 140/77 H 95 08/05/17 06:55 08/05/17 10:28 08/05/17 08:32 08/05/17 06:55 08/05/17 08:32 Oxygen Flow Rate 2 Oxygen Delivery Method Room Air Weight: 377 lb 10.429 oz Body Mass Index (BMI) 51.2 Intake and Output for Last 24 Hours Intake Total 240 / 240 867 / 867 Output Total 400 / 400 Balance 240 / 240 467 / 467 Laboratory Tests Past 24 Hrs WBC 6.2 RBC 4.40 L Hgb 12.6 L WBC RBC Hgb Hct MCV MCH MCHC RDW RDW Differential Plt Count MPV Immature Gran % (Auto) POC Glucose POC Glucose 191 H 111 H Assessment/Plan Active and Suspected Problems Altered mental status (Acute) Debility (Acute) RECOMMENDATIONS 1. Wean oxygen supplementation to keep saturations 88-92%. 2. Encourage incentive spirometer 3. Increase activity as tolerated, PT/OT consult 4. Continue aerosols 5. Maintain BiPAP with naps and nightly, with settings of 27/21 6. Continue antibiotics per ID recommendations 7. Patient scheduled for repeat PSG 08/26/17, this appointment can be moved up pending word patient goes on discharge. He will likely need [facility] for rehab upon discharge secondary to his weakness. IMPRESSIONS 1. Metabolic/infectious encephalopathy Patient appears to be mentating appropriately at this time, however he is slow to respond and a poor historian. This may be his baseline. His serum bicarb does not indicate chronic CO2 retention and his ABG showed mild CO2 retention. Will initiate BiPAP with naps and nightly, avoid sedating medications. He will be treated for underlying cystitis. 2. Weakness/debility Likely secondary to deconditioning from immobility, as well as his multiple comorbidities. The patient has been relatively immobile at home and unable to get out of bed. He has been feeling very fatigued and unable to complete ADLs. I suspect his untreated sleep apnea has a role in his daytime sleepiness. It was recommended he go to [facility] facility at discharge from his last admission, however he refused. His management is following, recommend PT consult and ongoing therapy. 3. Recurrent cystitis ID following, continue antibiotics per the recommendations. Urine cultures are pending. 4. Concern for sleep disordered breathing Patient has not been utilizing home PAP secondary to it broke. Recommend the patient utilize noninvasive positive pressure ventilation with naps and nightly, with settings of 27/21. Patient is scheduled for repeat polysomnogram on August 26. If he ends up going home on discharge, this appointment can be moved up and possibly patient can be discharged from the hospital straight to the sleep lab. He declined to follow with pulmonary medicine at discharge from his last admission, however an appointment can be offered if patient desires to follow-up as an outpatient. Please encourage incentive spirometer/PEP therapy and increase activity as tolerated. Patient should be up to the chair for meals. 5. Super morbid obesity/chronic kidney disease/diabetes mellitus/retention/hyperlipidemia/depression Complicates care, management, recovery, and prognosis. Okay to continue baseline outpatient medications, however would avoid sedating medications given his untreated sleep apnea. Thank you for the opportunity to participate in this patient's care, please do not hesitate to contact us with any further questions or concerns. This note was generated with [employer] dictation software. It may contain incorrect words, spelling, and punctuation that were not noted in checking the note before signing. 08/05/17 1310 <Electronically signed by Adamaris WEN> Date Adamaris WEN Cosigner Signature (if applicable): Date CC: Fidel Malone D.O.; Wili Nelson DO; Carlos King MD Signed BEDSIDE GLUCOSE Collected: 08/05/2017 Status: F Source: [place] 12:52 PM [facility] REPOSITORY TYPE CODE TESTS RESULT OUT OF REFERENCE UNITS RANGE LAB L501.080 70-110 mg/dL High BEDSIDE GLU 276 Result Comment: MANAGEMENT OF PATIENT CARE PER NURSING PROTOCOL Performed By: #### L501.080 #### [facility] Point of Care [address] [place] [address] Observed: 08/05/2017 Status: F Source: [place] CULTURE, URINE 11:30 AM [facility] REPOSITORY Urine Culture ORGANISM 1: Meth. resistant Staph. aureus [place] Count 50,000-80,000 ORGANISM 2: Streptococcus agalactiae (B) [place] Count 11,000-25,000 ORGANISM 3: Pseudomonas putida [place] Count <1000 ORGANISM 4: Yeast Like Organism [place] Count 1000-10,000 Meth. resistant Staph. aureus: REACTION Benzylpenicillin NF >=0.5 R Cefoxitin *NF + Inducable Clindamycin Resistan - Gentamicin $ <=0.5 S Levofloxacin $ 0.25 S Linezolid $$$$ 1 S Nitrofurantoin $ <=16 S Oxacillin NF >=4 R Rifampin $$ <=0.5 S Tetracycline NF <=1 S Trimethoprim/Sulfametho $ <=10 S Vancomycin $ 1 S (NF) indicates non-formulary drug at [facility]. Approval by Infectious Disease Specialist required before non-formulary drugs may be ordered and/or dispensed. * CLSI guidelines does not recommend testing of cephalosporins. This interpretation is deduced from Beta-lactam/penicillin results. Streptococcus agalactiae (B): REACTION Ampicillin $ <=0.25 S Benzylpenicillin NF <=0.06 S Ceftriaxone $ <=0.12 S Inducable Clindamycin Resistan - Linezolid $$$$ <=2 S Vancomycin $ 0.5 S (NF) indicates non-formulary drug at [facility]. Approval by Infectious Disease Specialist required before non-formulary drugs may be ordered and/or dispensed. * CLSI guidelines does not recommend testing of cephalosporins. This interpretation is deduced from Beta-lactam/penicillin results. Pseudomonas putida: REACTION Ceftazidime *NF 16 I Ciprofloxacin $ 0.5 S Gentamicin $ <=1 S Imipenem *NF 2 S Levofloxacin $ 2 S Piperacillin/Tazobactam $$ 64 I Tobramycin $ <=1 S (NF) indicates non-formulary drug at [facility]. Approval by Infectious Disease Specialist required before non-formulary drugs may be ordered and/or dispensed. Performed By: #### M100.0650 #### [facility] [address] [facility], [address] CONSULTATION Observed: 08/05/2017 Status: F Source: [place] 10:58 AM [facility] REPOSITORY [facility] Medical Records Department [address] [place] [address] Consultation 08/05/17 1050 MR#: [id number] Acct: [id number] Name: DAVID LOUIS Rep #: [id number] : 1940 76 From: Carlos King MD PCP: Wili Nelson DO Status: ADM IN Y Location: [facility] KT894-2 Problem List (1) Altered mental status Status: Acute Reason for Consult: uti Consulted by: Dr. Yusuf History of Present Illness: The patient is a 76 year old M with recent admit for confusion. Resp status improved with NIPPV. Was on abx for uti. Ucx grew MRSA, GBS, and less than 1000 PsA. Pt improved without MRSA coverage, Bcx were neg, and it was thought to be colonizer. Discharged to complete short course of po amox. Over past 1-2 days at home, increasing confusion/encephalopathy. He denies abd pain or dysuria. No fever here. UA in ED with heavy pyuria, started on vanc/zosyn to cover prior cx growth. Pt unable to provide history. Per report, home CPAP has been broken for at least several weeks. ROS unobtainable due to mental status. - Medical History Past Medical History (Chronic Problems): Chronic Problems History of kidney stones (Chronic) COPD (chronic obstructive pulmonary disease) (Chronic) Type II diabetes mellitus, uncontrolled (Chronic) History of depression (Chronic) History of other venous thrombosis and embolism (Chronic) HLD (hyperlipidemia) (Chronic) HTN (hypertension) (Chronic) Morbid obesity (Chronic) NILO (obstructive sleep apnea) (Chronic) Chronic renal failure, stage 3 (moderate) (Chronic) Bifascicular bundle branch block (Chronic) Colon polyps (Chronic) Family history of colon cancer (Chronic) Allergies/Adverse Reactions: Allergies MARGIE Inhibitors Allergy (Unknown, Verified 08/04/17 19:15) Unknown cefepime Allergy (Verified 08/04/17 19:15) Other WEAKNESS AND FALLING ipodate [Ipodate] Allergy (Verified 08/04/17 19:15) Shortness of breath levofloxacin [Levofloxacin] Allergy (Verified 08/04/17 19:15) Anaphylaxis lisinopril Allergy (Verified 08/04/17 19:15) Shortness of breath ofloxacin Allergy (Verified 08/04/17 19:15) Unknown Quinolones Allergy (Verified 08/04/17 19:15) Anaphylaxis Home Medications: Ambulatory Orders Medication Instructions Recorded Atorvastatin Calcium [Lipitor] 40 mg PO QHS 05/29/15 Citalopram [Celexa] 40 mg PO DAILY 05/29/15 Vital Signs Temp Pulse Resp BP Pulse Ox 98.4 F 53 L 16 140/77 H 95 08/05/17 06:55 08/05/17 10:28 08/05/17 08:32 08/05/17 06:55 08/05/17 08:32 Oxygen Flow Rate 2 Oxygen Delivery Method Room Air Weight: 171.3 kg Body Mass Index (BMI) 51.2 Laboratory Tests Past 24 Hrs - Other Studies Radiology: [] reviewed Other Studies: [] Route of nutrition/ use of supplements: [] Nutritional Intake: [] IV Site: [] Lane Catheter: [] - Physical Exam General: Lethargic - opens eyes to verbal stim, oriented x0 HEENT: Atraumatic, PERRLA, EOMI Neck: Supple, No Nodes Lungs: Clear to auscultation, Diminished Cardiovascular: Regular rate, Regular Rhythm Abdomen: Bowel Sounds Present, Soft, Non Tender, Non-Distended, Obese Extremities: Edema Skin: No rashes IV Site: Peripheral, without redness Musculoskeletal: No Tenderness to Palpation of Joints or Extremities Neurological: Cranial nerves II-XII grossly intact - able to answer some questions - Assessment/Plan Antibiotics: [] Assessment/Plan: [] Altered mental status - recent ucx with strep, MRSA, PsA. Heavy pyruia on UA here. Bcx and ucx pending. No fever, no leukocytosis, denies abd pain or dysuria. Spoke with micro lab and zosyn susceptibilities were not available on prior pseudomonas. Ok to continue empiric vanc/zosyn while cxs are pending, but suspect untreated cpap is the primary guard driver of his mental status. Cr is at baseline. Thank you, will follow, d/w Dr. Yusuf. 08/05/17 1058 <Electronically signed by Carlos King MD> Date Carlos King MD Cosigner Signature (if applicable): Date CC: Wili Nelson DO; Carlos King MD Signed BLOOD GASES BY CPS Collected: 08/05/2017 Status: F Source: [place] 10:50 AM [facility] REPOSITORY TYPE CODE TESTS RESULT OUT OF RANGE REFERENCE UNITS LAB L9000.9990 Normal BLD GAS TYPE ART LAB L9001.1000 Normal SITE R Radial LAB L9001.1010 Normal ABIGAIL TEST POS LAB L9001.1050 O2 Normal Delivery Dev Room Air LAB L9001.1104 Normal Results To HOSP LAB L9001.1105 Normal Time Given 1055 LAB L9001.1110 7.35-7.45 pH Normal - I-STAT 7.39 LAB L9001.1210 35-45 mmHg High pCO2 - ISTAT 45.7 LAB L9001.1310 75-100 mmHG Low PO2 I-STAT 64 LAB L9001.2300 22-26 mmol/L High HCO3 ISTAT 27.6 LAB L9001.2400 -2 to +2 mmol/L High BE ISTAT 3 LAB L9001.2415 mmol/L Normal TOTAL CO2 29 ISTAT LAB L9001.2425 95-99 % Low SO2 ISTAT 92 Performed By: #### L9000.0800 #### [facility] Point of Care [address] [place] [address] BEDSIDE GLUCOSE Collected: 08/05/2017 Status: F Source: [place] 8:23 AM [facility] REPOSITORY TYPE CODE TESTS RESULT OUT OF REFERENCE UNITS RANGE LAB L501.080 70-110 mg/dL High BEDSIDE GLU 191 Result Comment: MANAGEMENT OF PATIENT CARE PER NURSING PROTOCOL Performed By: #### L501.080 #### [facility] Point of Care [address] [place] [address] CRP Collected: 08/05/2017 Status: F Source: [place] 6:28 AM [facility] REPOSITORY TYPE CODE TESTS RESULT OUT OF RANGE REFERENCE UNITS LAB L501.6710 0.0-3.0 mg/L High 21.60 C-REACTIVE PROT Result Comment: C-Reactive Protein (CRP) provides useful information for the diagnosis, therapy and monitoring of inflammatory processes and associated diseases. For the evaluation of Relative Risk for Cardiovascular Disease, a High Sensitivity CRP (HSCRP) should be ordered. Performed By: #### L501.6710 #### [facility] [address] [place], [address] CBC W/DIFF, AUTOMATED Collected: 08/05/2017 Status: F Source: [place] 6:25 AM [facility] REPOSITORY TYPE CODE TESTS RESULT OUT OF RANGE REFERENCE UNITS LAB L100.1000 4.4-11.0 K/mm3 Normal WBC 6.2 LAB L100.1200 4.6-6.2 M/mm3 Low RBC 4.40 LAB L100.1300 13.0-16.5 g/dl Low HGB 12.6 LAB L100.1400 40-54 % Low HCT 38.8 LAB L100.1500 80-94 fL Normal MCV 88.2 LAB L100.1600 27.0-32.0 pg Normal MCH 28.6 LAB L100.1700 32-36 g/gl Normal MCHC 32.5 LAB L100.1810 11.6-14.6 % Normal RDW CV 13.6 LAB L100.1820 35.1-43.9 fl Normal RDW SD 42.6 LAB L100.1900 150-450 K/mm3 Normal PLT 209 LAB L100.2000 6.2-12.0 fl Normal MPV 9.3 LAB L100.2100 47-70 % Normal NEUT% 63.2 LAB L100.2200 19-41 % Normal LY% 21.9 LAB L100.2300 0-10 % High MONO% 10.3 LAB L100.2400 0-5 % Normal EO% 3.7 LAB L100.2500 0-1 % Normal BASO% 0.6 LAB L100.2550 0.0-0.9 % Normal IM GRAN % 0.300 Result Comment: IG% - Immature Granulocytes (promyelocytes, myelocytes and metamyelocytes) > 1% indicates that a LEFT SHIFT is Present. LAB L100.2620 2.0-7.7 X10 3/uL Normal Absolute Neut 3.9 LAB L100.2720 0.83-4.51 X10 3/ul Normal Absolute Lymph 1.36 Performed By: #### L100.0100 #### [facility] [address] [place], [address] BASIC METABOLIC Collected: 08/05/2017 Status: F Source: [place] PROFILE ([facility]) 6:25 AM [facility] REPOSITORY TYPE CODE TESTS RESULT OUT OF RANGE REFERENCE UNITS LAB L501.0100 74-106 mg/dL High GLU 180 Result Comment: Fasting Glucose result greater than or equal to 126 mg/dL suggests DIABETES MELLITUS per A.D.A. criteria. Please note revised GLUCOSE reference range effective 2017. LAB L501.1000 7-18 mg/dL High BUN 22 LAB L501.1100 0.70-1.30 mg/dL High CREAT,SERUM 1.69 Result Comment: The validity of the calculated GFR AND GFRAA in patients over 70 years has not been determined. Clinical correlation is essential. LAB L501.1110 >60 mL/min Low EST GFR 42 Result Comment: Non- GFR Calc LAB L501.1115 >60 mL/min Low EST GFR - AA 51 Result Comment: GFR Calc LAB L501.1255 ml/min Normal Estimated CRCL 40.82 LAB L501.1300 10-20 RATIO Normal BUN/CRE 13.0 LAB L501.2200 8.5-10 mg/dL Low .1 CA 8.3 LAB L501.5300 136-14 mmol/L Normal 5 NA 140 LAB L501.5600 3.5-5. mmol/L Normal 1 K 3.9 LAB L501.5900 98-107 mmol/L Normal CL 106 LAB L501.6100 21.0-3 mmol/L Normal 2.0 CO2 26.0 LAB L501.6200 5-15 Normal GAP 8 Performed By: #### L500.2500 #### [facility] [address] [place], [address] PSA,TOTAL - ANNUAL Collected: 08/05/2017 Status: F Source: [place] SCREEN 6:25 AM [facility] REPOSITORY TYPE CODE TESTS RESULT OUT OF RANGE REFERENCE UNITS LAB L501.9910 0.00-4.00 ng/mL Normal PSA,TOT 1.10 SCREEN Result Comment: This test was performed using the TPSA assay method for the [employer] chemistry system. Values obtained with different assay methods cannot be used interchangably. When changing PSA assays in the course of monitoring a patient, additional sequential testing should be carried out to confirm baseline values. Performed By: #### L501.9910 #### [facility] [address] [place], [address] ERYTHROCYTE SED RATE Collected: 08/05/2017 Status: F Source: [place] 6:25 AM [facility] REPOSITORY TYPE CODE TESTS RESULT OUT OF RANGE REFERENCE UNITS LAB L102.0000 0-20 mm/hr High SED RATE 41 Performed By: #### L101.9900 #### [facility] [place], [address] EMERGENCY DEPARTMENT Observed: 08/05/2017 Status: F Source: [place] SUMMARY 12:49 AM [facility] REPOSITORY [facility] Medical Records Department [address] [place] [id number] Emergency Department Summary 08/04/17 2225 MR#: [id number] Acct: [id number] Name: MARYDAVID L Rep #: [id number] : 1940 76 From: Gali Smith MD PCP: Wili Nelson DO Status: ADM IN - ER Visit Summary Date of Service: 08/04/17 Chief Complaint: UTI and weakness History of Present Illness: The patient is a 76 M who was admitted to the hospital July 24 for UTI and encephalopathy. He is on IV Zosyn in the hospital and was discharged on amoxicillin. He has had increased weakness, worse today to the point where he was too weak to even sit up. He is complaining of right lateral abdominal wall pain. does state they gave him Benadryl earlier tonight for some sinus drainage. She denies nausea or vomiting. He denies fever at home. Physical Examination: Vital signs are significant for bradycardia with a heart rate of 50, otherwise normal. Patient is an obese male sitting upright in bed. He appears ill but in no acute distress. Head and neck examination is unremarkable. Heart is regular rhythm but bradycardic. Lung sounds are grossly clear but diminished at the bases secondary to body habitus. Abdomen is soft, obese, with no reproducible tenderness. He has no CVA tenderness on exam. Neuro exam patient is alert and does answer questions appropriately. He does appear fatigued and tired. Test Results: Portable chest x-ray reveals cardiomegaly with no focal airspace disease. CT the flank shows no acute process. EKG is sinus bradycardia at 55 bpm. CBC is normal. Chemistry studies reveal chronic renal insufficiency with a creatinine 1.77. LFTs are unremarkable. INR is 1.2. Urinalysis continues to show greater than 100 white blood cells. Rare bacteria is noted. Blood and urine cultures were sent. Emergency Department Course and Treatment: Once blood and urine cultures were sent, patient was given a dose of IV Zosyn since he responded well to that in the past. Family states that in the past he has required PICC line for IV antibiotics as he does not seem to clear infections with oral antibiotics. This may or may not be required at this time, but the patient has currently had a setback at home and is not doing well. We will await urine and blood cultures. At this time patient is too weak to go home. Treatment Plan: [] Disposition: Admit Impression: 1. UTI 2. Generalized weakness This note was generated with [employer] dictation software. It may contain incorrect words, spelling, and punctuation that were not noted in review of the chart prior to signing ED Disposition - Plan for ED Patient: Chief Complaint: Complaint Referrals: Wili Nelson DO [Primary Care Provider] - What to do if you have Problems For any increased pain, shortness of breath, bleeding, nausea or vomiting, chest pain, or any unexpected problems, contact your Primary Care Provider. Call [facility] ([phone]) or report to the closest Emergency Room. Call 911 if necessary. 08/05/17 0049 <Electronically signed by Gali Smith MD> Date Gali Smith MD Cosigner Signature (If Indicated): Date CC: Wili Nelson DO BEDSIDE GLUCOSE Collected: 08/05/2017 Status: F Source: [place] 12:24 AM [facility] REPOSITORY TYPE CODE TESTS RESULT OUT OF REFERENCE UNITS RANGE LAB L501.080 70-110 mg/dL High BEDSIDE GLU 111 Result Comment: MANAGEMENT OF PATIENT CARE PER NURSING PROTOCOL Performed By: #### L501.080 #### [facility] Point of Care [address] [facility] [address] HISTORY AND PHYSICAL Observed: 08/04/2017 Status: F Source: [place] EXAM 11:39 PM [facility] REPOSITORY [facility] Medical Records Department [address] [place] [address] History and Physical 08/04/17 2302 MR#: [id number] Acct: [id number] Name: LOUISDAVID L Rep #: [id number] : 1940 76 From: Love Christine MD PCP: Wili Nelson DO Status: ADM IN Y Location: [address] Problem List (1) COPD (chronic obstructive pulmonary disease) Status: Chronic (2) Type II diabetes mellitus, uncontrolled Status: Chronic Qualifiers: (3) History of depression Status: Chronic (4) HLD (hyperlipidemia) Status: Chronic (5) HTN (hypertension) Status: Chronic (6) Morbid obesity Status: Chronic (7) NILO (obstructive sleep apnea) Status: Chronic (8) Chronic renal failure, stage 3 (moderate) Status: Chronic History of Present Illness Date of Admission: 08/04/17 Chief Complaint: Weakness. The patient is a 76 year old M with past medical history as mentioned above presented to the emergency room because of weakness. The patient is poor informant and was not able to provide good history. Patient's and daughter were at the bedside and they were not very helpful in terms of providing good history. According to the patient's , patient has been weak and not able to ambulate since yesterday. She mentioned that he has been sleepy and lethargic most of his time. The patient himself complained of being weak and not able to move or ambulate at home. He denied any specific symptoms. He was discharged from the hospital a week ago and he was admitted for acute cystitis and hypoglycemia. During that admission, I saw the patient and upon discharge, I spoke with the patient about going to [facility] facility because of weakness and difficulty ambulating but he refused. Patient denies fever or chills. He denied chest pain or shortness of breath. Denied cough or sputum production. He complained of left flank pain. He had a history of COPD and chronic respiratory failure and he has been on oxygen at home. He had history of obstructive sleep apnea and he has been on BiPAP at home but his BiPAP machine is broken. He has a history of uncontrolled type 2 diabetes mellitus and he has been on high doses of insulin. He has a history of hypertension and he has been on metoprolol and losartan and his blood pressure is under reasonable control. In the emergency room, his blood pressure was slightly elevated and his heart rate has been in the 50s, he was afebrile and pulse ox was 95% on room air. His routine blood work is remarkable for creatinine of 1.77 which is chronic. Urinalysis revealed cloudy urine, 500 leukocyte esterase, negative for nitrite, there was more than 100 WBCs and rare bacteria. During his recent admission, urine culture revealed Streptococcus agalactiae, MRSA and pseudomonas aeruginosa. He is being admitted for polymicrobial acute cystitis with failure of outpatient therapy, generalized weakness, physical debility and functional decline. Past Medical History Past Medical History (Chronic Problems): Chronic Problems History of kidney stones (Chronic) COPD (chronic obstructive pulmonary disease) (Chronic) Type II diabetes mellitus, uncontrolled (Chronic) History of depression (Chronic) History of other venous thrombosis and embolism (Chronic) HLD (hyperlipidemia) (Chronic) HTN (hypertension) (Chronic) Morbid obesity (Chronic) NILO (obstructive sleep apnea) (Chronic) Chronic renal failure, stage 3 (moderate) (Chronic) Bifascicular bundle branch block (Chronic) Colon polyps (Chronic) Family history of colon cancer (Chronic) Allergies MARGIE Inhibitors Allergy (Unknown, Verified 08/04/17 19:15) Unknown cefepime Allergy (Verified 08/04/17 19:15) Other WEAKNESS AND FALLING ipodate [Ipodate] Allergy (Verified 08/04/17 19:15) Shortness of breath levofloxacin [Levofloxacin] Allergy (Verified 08/04/17 19:15) Anaphylaxis lisinopril Allergy (Verified 08/04/17 19:15) Shortness of breath ofloxacin Allergy (Verified 08/04/17 19:15) Unknown Quinolones Allergy (Verified 08/04/17 19:15) Anaphylaxis Home Medications: Ambulatory Orders Medication Instructions Recorded Atorvastatin Calcium [Lipitor] 40 mg PO QHS 05/29/15 Citalopram [Celexa] 40 mg PO DAILY 05/29/15 Surgical History: - - Circumcision, excision of kidney stone Psychiatric History: Depression Lives: With Family Smoking Status: Former smoker Alcohol: None Drugs: None - *Family History Maternal History Items: Cancer - Patient's mother of cancer but he is not sure what kind of cancer. Paternal History Items: Cancer - Father of colon cancer Offspring History Items: - - He has a son who is morbidly obese and suffers from breathing problems and heart problems. Review of Systems Constitutional: Reports: Anorexia, Weakness, Fatigue. Denies: Chills, Fever Eyes: Denies: Blurred vision, Double vision, Drainage, Redness HEENT: Denies: Difficulty Hearing, Ear Pain, Eye Pain, Nasal Congestion, Sore Throat Cardiovascular: Denies: Chest Pain, Chest Pressure, Chest Tightness, Heaviness, Light Headedness, Palpitations, Syncope Respiratory: Denies: Cough, Pleuritic Pain, Shortness of Breath, Sputum production, Wheezing Gastrointestinal: Reports: Abdominal Pain, - - Reported mild right flank pain.. Denies: Constipation, Diarrhea, Hematochezia, Nausea, Vomiting Genitourinary: Denies: Dysuria, Frequency, Hematuria Musculoskeletal: Denies: Arm Pain, Back Pain, Foot Pain Skin: Denies: Dryness, Rash Neurological: Denies: Balance problems, Double vision, Change in Speech, Headaches, Incoordination, Numbness Psychiatric: Denies: Anxiety, Depression Endocrine: Denies: Change in Body Habitus, Polydipsia VTE Information - Inpt Only VTE Present on Admission: No VTE Mechan Device Prophylaxis: None VTE Pharm Prophylaxis ordered?: Yes - Physical Exam General: Alert, Oriented x3, Cooperative, No apparent distress HEENT: Atraumatic, PERRLA, EOMI Oral: Moist Mucosa, No Gingival or Mucosal Lesions/ Ulcerations Neck: Supple, No JVD, Negative Carotid Bruits, Trachea Midline, Thyroid Normal Size and Texture Lungs: Clear to auscultation, No rhonchi, No wheeze, No rales, Diminished Cardiovascular: Regular rate, Regular Rhythm, Normal S1, Normal S2, No murmurs, Bradycardic Abdomen: Bowel Sounds Present, Soft, Non Tender, Non-Distended, No Hepato-splenomegaly, Obese Extremities: No clubbing, No cyanosis, Edema - Trace edema, stasis dermatitis. Skin: No rashes, No breakdown Lymphatic: No Cervical, Supraclavicular, or Inguinal Adenopathy Neurological: Cranial nerves II-XII grossly intact, Neuro grossly intact Psych/Mental Status: Flat Affect Vital Signs Temp Pulse Resp BP Pulse Ox 98.1 F 50 L 19 H 173/70 H 94 08/04/17 19:10 08/04/17 22:54 08/04/17 22:54 08/04/17 22:54 08/04/17 22:54 Oxygen Delivery Method Room Air Weight: 390 lb Body Mass Index (BMI) 52.9 Finger Stick Blood Glucose 216 Laboratory Tests Past 24 Hrs WBC 8.5 RBC 4.70 Hgb 13.5 Hct 41.1 MCV 87.4 MCH 28.7 MCHC 32.8 RDW 13.8 RDW Differential 42.6 WBC RBC Hgb Hct MCV MCH MCHC RDW RDW Differential Plt Count MPV Immature Gran % (Auto) Clinical Impression(s) from Imaging Studies Abdomen/Pelvis CT 08/04/17 19:56 IMPRESSION: 1. No evidence of acute abdominal process or focal inflammation. No evidence of bowel dilatation or air-fluid levels to suggest ileus versus obstruction. Stable renal cysts compared to 2017 exam. Electronically Signed: Juanito Case at 21:28 EST , Service support , Chest X-Ray 08/04/17 20:10 IMPRESSION: Cardiomegaly with mild prominent pulmonary vascular and interstitial markings with early CHF not excluded. No large focal airspace disease. Electronically Signed: Juanito Case at 20:42 EST , Service support , Assessment/Plan This is a 76 years old male patient presented to the emergency room because of generalized weakness, found to have polymicrobial acute cystitis in context of history of recurrent UTI as well as generalized weakness, physical debility and functional decline. #1 polymicrobial complicated acute cystitis: Patient was discharged recently from the hospital on amoxicillin. He does have a history of recurrent acute cystitis/UTI. Urine analysis revealed cloudy urine, positive for leukocyte esterase, there was more than 100 WBCs, moderate bacteria. He is afebrile, no leukocytosis. No evidence of sepsis or severe sepsis. During the last admission, urine culture revealed MRSA, pseudomonas aeruginosa and Streptococcus agalactiae. He received 1 dose of IV Zosyn in the emergency room, blood and urine culture sent. [facility], continue IV Zosyn, start IV vancomycin, infectious disease consult, repeat CBC and BMP tomorrow morning, PT OT evaluation and treatment, social service consult for placement to [facility] facility. #2 generalized weakness/physical debility/functional decline: During last admission, patient was offered to go to [facility] facility but he refused. He came back today with the main complaint of weakness and difficulty ambulating. I spoke with the patient's , daughter and himself and they seem hesitant to go to [facility] facility. Plan: PT OT evaluation and treatment, case management consult, highly recommend [facility] facility. #3 type 2 diabetes mellitus: ADA diet, Accu-Cheks, insulin sliding scale, continue home doses of Humulin insulin. #4 stage III chronic kidney disease: Baseline creatinine is around 1.4-1.8 mg/dL. Admission creatinine 1.77, stable at baseline. #5 COPD/chronic respiratory failure: Patient is on home oxygen at 2 L as well as BiPAP at night. At this time, pulse ox is normal on room air. Plan: DuoNeb every 6 hours, albuterol as needed, O2 by nasal cannula to keep O2 saturation more than 92%. #6 obstructive sleep apnea: On BiPAP at home, daughter mentioned that his machine is broken. #7 DVT prophylaxis: Q. heparin. Other chronic medical problems: Stable, continue home medications. #1 hypertension. #2 hyperlipidemia. #3 depression. #4 morbid obesity. #5 history of kidney stones. This note was generated with [employer] software. It may contain incorrect words, spelling, and punctuation that were not noted in checking the note before signing. Code Visit Inpatient E AND M: [id number] Init Hosp L3 08/04/17 8609 <Electronically signed by Love Christine MD> Date Love Christine MD Cosigner Signature: Date (if applicable) CC: Love Christine; Wili Nelson DO Signed URINALYSIS, COMPLETE Collected: 08/04/2017 Status: F Source: [place] 9:25 PM [facility] REPOSITORY Order Comment: Order Date: 08/04/17 How was Urine Obtained? [employer] HEAD TO SPECIFY TYPE CODE TESTS RESULT OUT OF RANGE REFERENCE UNITS LAB L400.3000 Yellow COLOR Normal Yellow LAB L400.3050 Clear Normal CLARITY Sl. Cloudy LAB L400.3200 Normal mg/dl Normal GLUCOSE, UR Normal LAB L400.3300 Negative mg/dL Normal BILIRUBIN URINE Negative LAB L400.3400 Negative mg/dl Normal KETONE UR Negative LAB L400.3465 1.002-1.030 Normal SP.GR. DIPSTX 1.020 LAB L400.3550 5.0 - 8.0 pH UR Normal 5.0 LAB L400.3600 Negative mg/dl High PROT DIPSTX 100 LAB L400.3700 Normal mg/dl Normal UROBILI Normal LAB L400.3750 Negative Normal NITRITE UR Negative LAB L400.3780 Negative /ul High 50 OCCULT BLOOD-UR LAB L400.3800 Negative /ul High LEUK ESTERASE 500 LAB L400.4050 0-5 /hpf WBC Normal >100 SEEN LAB L400.4100 0-5 /hpf Normal RBC-UA 0-5 SEEN LAB L400.4150 0-5 /hpf SQUAM Normal EPI 0-5 SEEN LAB L400.4300 None Seen /hpf Normal BACTERIA RARE LAB L400.4350 <or=2+ /hpf 0 Normal MUCUS, URINE SEEN LAB L400.4900 1+ Normal AMORPHOUS URATE LAB L400.5200 None Seen /hpf Normal YEAST-URINE RARE Performed By: #### L400.0001 #### [facility] [address] [place], [address] Observed: 08/04/2017 Status: F Source: [place] CULTURE, URINE 9:25 PM [facility] REPOSITORY Order Date: 08/04/17 Urine Culture RESULTS CALLED TO YANI/ILYA 08/06/17 0800 Felicita Balbuena. REPORT READ BACK BY YANI. Copy of report sent to Infection Control Printer [id number] 08/06/17 0800 ARGELIA. ORGANISM 1: Meth. resistant Staph. aureus [place] Count >100,000 Meth. resistant Staph. aureus: REACTION Benzylpenicillin NF >=0.5 R Cefoxitin *NF + Inducable Clindamycin Resistan - Gentamicin $ <=0.5 S Levofloxacin $ 0.25 S Linezolid $$$$ 1 S Nitrofurantoin $ <=16 S Oxacillin NF >=4 R Rifampin $$ <=0.5 S Tetracycline NF <=1 S Trimethoprim/Sulfametho $ <=10 S Vancomycin $ <=0.5 S (NF) indicates non-formulary drug at [facility]. Approval by Infectious Disease Specialist required before non-formulary drugs may be ordered and/or dispensed. * CLSI guidelines does not recommend testing of cephalosporins. This interpretation is deduced from Beta-lactam/penicillin results. Performed By: #### M100.0650 #### [facility] [address] [place], [address] Observed: 08/04/2017 Status: F Source: [place] CULTURE, BLOOD (WB) 8:21 PM [facility] REPOSITORY BC No growth in 5 days. Performed By: #### M200.1000 #### [facility] [address] [place] [place], [address] CBC W/DIFF, AUTOMATED Collected: 08/04/2017 Status: F Source: [place] 8:10 PM [facility] REPOS[facility]ORY TYPE CODE TESTS RESULT OUT OF RANGE REFERENCE UNITS LAB L100.1000 4.4-11.0 K/mm3 Normal WBC 8.5 LAB L100.1200 4.6-6.2 M/mm3 Normal RBC 4.70 LAB L100.1300 13.0-16.5 g/dl Normal HGB 13.5 LAB L100.1400 40-54 % Normal HCT 41.1 LAB L100.1500 80-94 fL Normal MCV 87.4 LAB L100.1600 27.0-32.0 pg Normal MCH 28.7 LAB L100.1700 32-36 g/gl Normal MCHC 32.8 LAB L100.1810 11.6-14.6 % Normal RDW CV 13.8 LAB L100.1820 35.1-43.9 fl Normal RDW SD 42.6 LAB L100.1900 150-450 K/mm3 Normal PLT 244 LAB L100.2000 6.2-12.0 fl Normal MPV 9.9 LAB L100.2100 47-70 % High NEUT% 71.4 LAB L100.2200 19-41 % Low LY% 14.2 LAB L100.2300 0-10 % High MONO% 10.1 LAB L100.2400 0-5 % Normal EO% 3.4 LAB L100.2500 0-1 % Normal BASO% 0.5 LAB L100.2550 0.0-0.9 % Normal IM GRAN % 0.400 Result Comment: IG% - Immature Granulocytes (promyelocytes, myelocytes and metamyelocytes) > 1% indicates that a LEFT SHIFT is Present. LAB L100.2620 2.0-7.7 X10 3/uL Normal Absolute Neut 6.1 LAB L100.2720 0.83-4.51 X10 3/ul Normal Absolute Lymph 1.20 Performed By: #### L100.0100 #### [facility] [address] [facility] [facility], [address] PROTHROMBIN TIME W/INR Collected: 08/04/2017 Status: F Source: [place] 8:10 PM [facility] REPOS[facility]ORY TYPE CODE TESTS RESULT OUT OF RANGE REFERENCE UNITS LAB L300.4150 11.7-14.9 SECONDS Normal PROTIME 14.4 LAB L300.4200 Normal INR 1.2 Performed By: #### L300.3900 #### [facility] [address] [facility] [facility], [address] BASIC METABOLIC Collected: 08/04/2017 Status: F Source: [place] PROFILE (BMP) 8:10 PM [facility] REPOSITORY TYPE CODE TESTS RESULT OUT OF RANGE REFERENCE UNITS LAB L501.0100 74-106 mg/dL High GLU 114 Result Comment: Fasting Glucose result from 100 to 125 mg/dL suggests IMPAIRED HOMEOSTASIS per A.D.A. criteria. Please note revised GLUCOSE reference range effective 2017. LAB L501.1000 7-18 mg/dL High BUN 23 LAB L501.1100 0.70-1.30 mg/dL High CREAT,SERUM 1.77 Result Comment: The validity of the calculated GFR AND GFRAA in patients over 70 years has not been determined. Clinical correlation is essential. LAB L501.1110 >60 mL/min Low EST GFR 40 Result Comment: Non- GFR Calc LAB L501.1115 >60 mL/min Low EST GFR - AA 48 Result Comment: GFR Calc LAB L501.1255 ml/min Normal Estimated CRCL 38.97 LAB L501.1300 10-20 RATIO Normal BUN/CRE 13.0 LAB L501.2200 8.5-10 mg/dL Normal .1 CA 8.7 LAB L501.5300 136-14 mmol/L Normal 5 NA 142 LAB L501.5600 3.5-5. mmol/L Normal 1 K 4.1 LAB L501.5900 98-107 mmol/L High CL 108 LAB L501.6100 21.0-3 mmol/L Normal 2.0 CO2 24.0 LAB L501.6200 5-15 Normal GAP 10 Performed By: #### L500.2500, L500.3400 #### [facility] [address] [facility] [place], [address] LIVER PROFILE Collected: 08/04/2017 Status: F Source: [place] 8:10 PM [facility] REPOS[facility]ORY TYPE CODE TESTS RESULT OUT OF RANGE REFERENCE UNITS LAB L501.1500 6.4-8.2 g/dL Normal T PROT 7.3 LAB L501.1800 3.2-5.0 g/dL Low ALB 2.8 LAB L501.1950 2.2-4.2 g/dL High GLOB 4.5 LAB L501.4100 15-37 U/L Low AST 13 LAB L501.4305 45-117 U/L Normal ALK P 89 LAB L501.4405 16-61 U/L Normal ALT 20 Result Comment: Please note revised ALT reference range effective 2017. LAB L501.4600 0.20-1.00 mg/dL Normal T BILI 0.70 LAB L501.4700 0.00-0.30 mg/dL Normal D BILI 0.15 Performed By: #### L500.2500, L500.3400 #### [facility] [address] [place], [place], [id number] Observed: 08/04/2017 Status: F Source: [place] CULTURE, BLOOD (WB) 8:10 PM [facility] REPOS[facility]ORY BC No growth in 5 days. Performed By: #### M200.1000 #### [facility] [address] [facility]. [place], [place], [id number] CHEST 1 VIEW Observed: 08/04/2017 Status: F Source: [place] (PORTABLE) 7:57 PM [facility] Imaging Services [address] [place] [address] Chest 1 View (Portable) MR#: [id number] Acct: [id number] Name: DAVID LOUIS Rep #: [id number] : 1940 M 76 From: Juanito Case DO PCP: Wili Nelson DO Status: REG ER Study: Chest 1 View (Portable) Date of Exam: 08/04/17 Exam# [id number] Ordering Dr: Gali Smith MD STUDY: X-RAY CHEST REASON FOR EXAM: Male, 76 years old. Shortness of breath. TECHNIQUE: Single PA view of the chest. COMPARISON: 24 July 2017 FINDINGS: Mild prominent interstitial markings are present. There is no demonstrated pleural abnormality. There is mild cardiac enlargement. Normal mediastinum and denys. All prominent pulmonary vascularity is noted. Normal visualized aortic arch and descending thoracic aorta. Normal visualized thoracic spine. Normal visualized ribs, clavicles, and shoulders. There is no demonstrated abnormality of the visualized soft tissue structures of the upper abdomen. RAD/Chest 1 View (Portable) IMPRESSION: Cardiomegaly with mild prominent pulmonary vascular and interstitial markings with early CHF not excluded. No large focal airspace disease. Electronically Signed: Juanito Case DO at 20:42 EST , Service support , CC: Gali Smtih MD; iWli Nelson DO Lighting Engineer: Signed ABDOMEN/PELVIS WITHOUT Observed: 08/04/2017 Status: F Source: PAT[place]ICIA CONT 7:57 PM [facility] Imaging Services [address] [place], [place] [address] [place] [address] Abdomen/Pelvis without Cont MR#: [id number] Acct: [id number] Name: DAVID LOUIS Rep #: [id number] : 1940 M 76 From: Juanito Case DO PCP: Wili Nelson DO Status: REG ER Study: Abdomen/Pelvis without Cont Date of Exam: 08/04/17 Exam# [id number] Ordering Dr: Gali Smith MD STUDY: CT ABDOMEN AND PELVIS WITHOUT CONTRAST REASON FOR EXAM: Male, 76 years old. Right-sided abdominal pain, UTI. RADIATION DOSAGE (If Supplied By Facility): CTDIvol = ( 24.18 ) mGy, DLP = ( 1280.61 ) mGycm TECHNIQUE: Transaxial images were obtained from the dome of the diaphragm to the symphysis pubis without oral contrast, and without intravenous contrast. Sagittal and coronal images were reconstructed. Individualized dose optimization techniques were used for this CT. COMPARISON: 24 February 2017. FINDINGS: Mild basilar atelectatic changes are present. Stable left lower lobe sub-5 mm nodes are present as seen on series 2 image 5 and image 12. Mild cardiomegaly is present. Normal liver. The gallbladder is contracted. Normal spleen. There is diffuse atrophy of the pancreas. Normal bilateral adrenal glands. There is moderate cortical atrophy of the right kidney, consistent with chronic medical renal disease. Right superior pole exophytic cyst is present measuring approximately 3.9 cm. There is moderate cortical atrophy of the left kidney, consistent with chronic medical renal disease. Posterior left hypodense cyst is noted similar to prior 2017 exam measuring 2.6 cm. Normal visualized stomach. Normal small intestine. Normal colon. The appendix is visualized and appears normal. Normal abdominal aorta. Normal inferior vena cava. Normal retroperitoneum. Bladder is largely contracted. There are prostatic calcifications. There is a left-sided inguinal hernia containing adipose tissue. Normal osseous structures. CT/Abdomen/Pelvis without Cont IMPRESSION: 1. No evidence of acute abdominal process or focal inflammation. No evidence of bowel dilatation or air-fluid levels to suggest ileus versus obstruction. Stable renal cysts compared to 2017 exam. Electronically Signed: Juanito Case DO at 21:28 EST , Service support , CC: Gali Smith MD; Wili Nelson DO Lighting Engineer: Signed DISCHARGE SUMMARY Observed: 07/29/2017 Status: F Source: [place] 12:05 PM [facility] Medical Records Department [address] [place] [address] Discharge Summary 07/29/17 1154 MR#: [id number] Acct: [id number] Name: DAVID LOUIS Rep #: [id number] : 1940 76 From: Love Christine MD PCP: Wili Nelson DO Status: DIS IN Y Location: [place] [id number] Discharge Date and Diagnosis Date of Admission: 07/24/17 Date of Discharge: 07/28/17 - Primary Discharge Diagnosis #1 acute metabolic encephalopathy. #2 polymicrobial acute cystitis. #3 hypoglycemia. - Secondary Discharge Diagnosis Chronic Problems History of kidney stones (Chronic) COPD (chronic obstructive pulmonary disease) (Chronic) Type II diabetes mellitus, uncontrolled (Chronic) History of depression (Chronic) History of other venous thrombosis and embolism (Chronic) HLD (hyperlipidemia) (Chronic) HTN (hypertension) (Chronic) Morbid obesity (Chronic) NILO (obstructive sleep apnea) (Chronic) Chronic renal failure, stage 3 (moderate) (Chronic) Bifascicular bundle branch block (Chronic) Colon polyps (Chronic) Family history of colon cancer (Chronic) Abnormal electrocardiogram (Chronic) Hospital Course and Treatment Imaging Results: Clinical Impression(s) from Imaging Studies Brain CT 07/24/17 08:13 IMPRESSION: Chronic involutional changes of the brain. Electronically Signed: Seymour Shelley MD at 9:37 EST Tel [phone], Service support , Chest X-Ray 07/24/17 08:13 IMPRESSION: Cardiomegaly. Electronically Signed: Seymour Shelley MD at 8:49 EST Tel [phone], Service support , Dr. Kauffman,/Dr. Malone, pulmonology. Dr. Pickard, infectious disease. Operations: None Procedures: None Summary of Care Provided: Patient seen and examined on the day of discharge and appeared to be stable to be discharged home. His mentation has been stable and he remained oriented 3. He has been tolerating BiPAP overnight and remained on oxygen during daytime which is his baseline. His vital signs are stable. - Physical Exam General: Alert, Oriented x3, Cooperative, mild shortness of breath. HEENT: Atraumatic, PERRLA, EOMI. Neck: Supple, No JVD, Negative Carotid Bruits, Trachea Midline, Thyroid Normal. Lungs: Decreased breath sounds bilateral, No rhonchi, No wheeze, No rales. Cardiovascular: Regular rate, Regular Rhythm, Normal S1, Normal S2, PMI Normal. Abdomen: Bowel Sounds Present, Soft, Non Tender, obese, Non- Distended, No Hepato-splenomegaly. Extremities: No clubbing, No cyanosis, trace edema, stasis dermatitis. Skin: No rashes, No breakdown Neurological: Neuro grossly intact Hospital course: The patient is a 76 year old M admitted because of change in mental status, found to have acute cystitis with multiple microorganisms and urine culture, complicated by acute metabolic encephalopathy and hypoglycemia. Patient was treated with IV Zosyn for acute cystitis. Urine culture revealed multiple organisms including Streptococcus agalactiae, MRSA and pseudomonas aeruginosa. Patient's mentation improved, he became alert and oriented 3. His blood culture showed no growth in 48 hours. Respiratory panel for viruses were negative. He had a history of chronic respiratory failure which is multifactorial secondary to obstructive sleep apnea, morbid obesity and hypoventilation syndrome and patient has been on BiPAP at home. He was continued on BiPAP during this hospital stay but his BiPAP settings were increased according to pulmonology. Infectious disease consulted and recommended to discharge patient on oral amoxicillin. On admission, patient found to have an episode of hypoglycemia and he was on high doses of U5 100 insulin. Patient discharged home in a stable medical condition, discharged on amoxicillin 500 mg p.o. 3 times daily with compression date of July 31, 2017, dose of U5 100 is not decreased down to 60 units before each meal, previously he was on 100 units before each meal discharge INR was 3.5, patient was instructed to not take Coumadin on the day of discharge and the after, order given to repeat pro time and INR on , July 31, 2017 and to call his PCP for next Coumadin dose, recommended follow-up with PCP in 1 week and follow-up with pulmonology 2 weeks. BiPAP settings changed according to pulmonology to IPAP of 27 and EPAP of 21. Discharge Activity: Return to Normal Activity Weight Bearing Status: Weight bearing as tolerated Call your doctor if you observe: Fever of 101 or Higher, Shortness of breath, Dizziness, Fainting spells, Chest pain, Increased palpitations (irregular heartbeat), Uncontrolled pain Home Medications: Medications to take at Discharge Atorvastatin Calcium [Lipitor] 40 mg PO QHS 05/29/15 Citalopram [Celexa] 40 mg PO DAILY 05/29/15 Docusate Sodium [Colace] 200 mg PO QODAY PRN 05/29/15 Fluticasone 0.05% [Flonase Nasal [place]] 1 spray NASAL BID PRN 05/29/15 Tamsulosin HCl [Flomax] 0.4 mg PO DAILY 07/08/16 Metoprolol Succinate 100 mg PO DAILY 02/08/17 Insulin Detemir [Levemir FlexPen] 30 units SC BREAKFAST 07/24/17 Losartan Potassium [Cozaar] 100 mg PO DAILY 07/24/17 Warfarin Sodium [Coumadin] 10 mg PO DAILY 07/24/17 Warfarin [Coumadin] 5 mg PO DAILY 07/24/17 Amoxicillin [Amoxil] 500 mg PO Q8 #12 cap 07/28/17 Insulin U-500 [Humulin R U-500 ([facility])] 60 unit SC BREAKFAST #0 07/28/17 Insulin U-500 [Humulin R U-500 ([facility])] 60 unit SC DINNER #0 07/28/17 Insulin U-500 [Humulin R U-500 ([facility])] 60 unit SC LUNCH #0 07/28/17 Following Prescrptions Were Given to Patient: Amoxicillin [Amoxil] 500 mg PO Q8 #12 cap Primary Care Physician: Wili Nelson DO [Primary Care Provider] - Please follow up with your Primary Care Physician in: 1 weeks. Please Follow Up With: Ra Kauffman MD When: 2 weeks. Disposition: Home Minutes spent on discharge:: 34 Patient Condition:: Stable Meaningful Use Info Meaningful Use Diagnoses (Choose all that apply): None applicable Code Visit Inpatient E AND M: [id number] Disch Hosp 07/29/17 1205 <Electronically signed by Love Christine MD> Date Love Christine MD Cosigner Signature (if applicable): Date CC: Ra Kauffman MD; Love Christine; Wili Nelson DO Signed BEDSIDE GLUCOSE Collected: 07/28/2017 Status: F Source: [place] 5:00 PM [facility] REPOSITORY TYPE CODE TESTS RESULT OUT OF REFERENCE UNITS RANGE LAB L501.080 70-110 mg/dL High BEDSIDE GLU 284 Result Comment: MANAGEMENT OF PATIENT CARE PER NURSING PROTOCOL Performed By: #### L501.080 #### [facility] Point of Care [address] [facility] [address] DISCHARGE INSTRUCTION Observed: 07/28/2017 Status: F Source: [place] 12:02 PM [facility] REPOSITORY [facility] Medical Records Department [address] [place] [address] Instructions for Home/Discharge Instructions 07/28/17 1158 MR#: [id number] Acct: [id number] Name: DAVID LOUIS Rep #: [id number] : 1940 76 From: Love Christine MD PCP: Wili Nelson DO Status: ADM IN - Discharge Diagnoses Current Active Problems: Current Active and Chronic Problems UTI (urinary tract infection) (Acute) Encephalopathy acute (Acute) Hypoglycemia (Acute) You will use the following diet at home:: Calorie/Carbohydrate Controlled (specify 1200, 1400, etc) - 1800 kayla, Cardiac Your food should be the consistency of: Regular Discharge Activity: Return to Normal Activity Weight Bearing Status: Weight bearing as tolerated Call your doctor if you observe: Fever of 101 or Higher, Shortness of breath, Dizziness, Fainting spells, Chest pain, Increased palpitations (irregular heartbeat), Uncontrolled pain Additional Instructions: 1. BiPAP settings: IPAP of 27, EPAP of [address] Kauffman. 2. Do not take Coumadin today and tomorrow, do the blood work on July and contact your family doctor for next Coumadin dose. Allergies/Adverse Reactions: Allergies MARGIE Inhibitors Allergy (Unknown, Verified 02/07/17 23:24) Unknown cefepime Allergy (Verified 02/07/17 23:24) Other WEAKNESS AND FALLING ipodate [Ipodate] Allergy (Verified 02/07/17 23:24) Shortness of breath levofloxacin [Levofloxacin] Allergy (Verified 02/07/17 23:24) Anaphylaxis lisinopril Allergy (Verified 02/07/17 23:24) Shortness of breath ofloxacin Allergy (Verified 07/24/17 12:12) Unknown Quinolones Allergy (Verified 02/07/17 23:24) Anaphylaxis Medications to take at Discharge Atorvastatin Calcium [Lipitor] 40 mg PO QHS 05/29/15 Citalopram [Celexa] 40 mg PO DAILY 05/29/15 Docusate Sodium [Colace] 200 mg PO QODAY PRN 05/29/15 Fluticasone 0.05% [Flonase Nasal [place]] 1 spray NASAL BID PRN 05/29/15 Tamsulosin HCl [Flomax] 0.4 mg PO DAILY 07/08/16 Metoprolol Succinate 100 mg PO DAILY 02/08/17 Insulin Detemir [Levemir FlexPen] 30 units SC BREAKFAST 07/24/17 Losartan Potassium [Cozaar] 100 mg PO DAILY 07/24/17 Warfarin Sodium [Coumadin] 10 mg PO DAILY 07/24/17 Warfarin [Coumadin] 5 mg PO DAILY 07/24/17 Amoxicillin [Amoxil] 500 mg PO Q8 #12 cap 07/28/17 Insulin U-500 [Humulin R U-500 (BKC)] 60 unit SC BREAKFAST #0 07/28/17 Insulin U-500 [Humulin R U-500 (BKC)] 60 unit SC DINNER #0 07/28/17 Insulin U-500 [Humulin R U-500 (BKC)] 60 unit SC LUNCH #0 07/28/17 The following prescriptions were given: Amoxicillin [Amoxil] 500 mg PO Q8 #12 cap Primary Care Physician: Wili Nelson DO [Primary Care Provider] - Please follow up with your Primary Care Physician in: 1 weeks. Please Follow Up With: Ra Kauffman MD When: 2 weeks. 07/28/17 1202 <Electronically signed by Love Christine MD> Date Love Christine MD CC: Fidel Malone D.O.; Wili Nelson DO; Carlos King MD BEDSIDE GLUCOSE Collected: 07/28/2017 Status: F Source: [place] 11:11 AM [facility] REPOSITORY TYPE CODE TESTS RESULT OUT OF REFERENCE UNITS RANGE LAB L501.080 70-110 mg/dL High BEDSIDE GLU 263 Result Comment: MANAGEMENT OF PATIENT CARE PER NURSING PROTOCOL Performed By: #### L501.080 #### [facility] Point of Care [address] [place], [place] [id number] BEDSIDE GLUCOSE Collected: 07/28/2017 Status: F Source: [place] 6:51 AM [facility] REPOSITORY TYPE CODE TESTS RESULT OUT OF REFERENCE UNITS RANGE LAB L501.080 70-110 mg/dL High BEDSIDE GLU 208 Result Comment: MANAGEMENT OF PATIENT CARE PER NURSING PROTOCOL Performed By: #### L501.080 #### [facility] Point of Care [address] [place], [place] [id number] PROTHROMBIN TIME W/INR Collected: 07/28/2017 Status: F Source: [place] 5:30 AM [facility] REPOSITORY TYPE CODE TESTS RESULT OUT OF REFERENCE UNITS RANGE LAB L300.4150 11.7-14.9 SECONDS High PROTIME 33.6 LAB L300.4200 High alert INR 3.5 Result Comment: CRITICAL VALUE VERIFIED. CALLED TO BRITTNI SEGURA PCU 07/28/17 0606 Rajinder Flores. RESULTS READ BACK BY SAME . Performed By: #### L300.3900 #### [facility] [address] [place], [place], [address] BEDSIDE GLUCOSE Collected: 07/28/2017 Status: F Source: [place] 1:51 AM [facility] REPOSITORY TYPE CODE TESTS RESULT OUT OF REFERENCE UNITS RANGE LAB L501.080 70-110 mg/dL High BEDSIDE GLU 262 Result Comment: MANAGEMENT OF PATIENT CARE PER NURSING PROTOCOL Performed By: #### L501.080 #### [facility] Point of Care [address] [place] [address] BEDSIDE GLUCOSE Collected: 07/27/2017 Status: F Source: [place] 10:06 PM [facility] REPOSITORY TYPE CODE TESTS RESULT OUT OF REFERENCE UNITS RANGE LAB L501.080 70-110 mg/dL High BEDSIDE GLU 386 Result Comment: MANAGEMENT OF PATIENT CARE PER NURSING PROTOCOL Performed By: #### L501.080 #### [facility] Point of Care [address] [place] [address] BEDSIDE GLUCOSE Collected: 07/27/2017 Status: F Source: [place] 4:44 PM [facility] REPOSITORY TYPE CODE TESTS RESULT OUT OF REFERENCE UNITS RANGE LAB L501.080 70-110 mg/dL High BEDSIDE GLU 316 Result Comment: MANAGEMENT OF PATIENT CARE PER NURSING PROTOCOL Performed By: #### L501.080 #### [facility] Point of Care [address] [place] [address] 12 LEAD ELECTROCARDIOGRAM Observed: 07/27/2017 Status: F Source: [place] 3:30 PM [facility] REPOSITORY [facility] Cardiovascular Services [address] [place] [id number] 12 Lead EKG 07/24/17 0842 MR#: [id number] Acct: [id number] Name: DAVID LOUIS Rep #: [id number] : 1940 76 From: Greg Phillips MD Attending Dr: Love Christine Status: ADM IN Ordering Dr: Matty Cosme MD Date: 07/24/17 Location: U Sex: M C Admitted: 07/24/17 Test Reason : HTN Blood Pressure : / mmHG Vent. Rate : 061 BPM Atrial Rate : 067 BPM P-R Int : 258 ms QRS Dur : 158 ms QT Int : 460 ms P-R-T Axes : 086 -65 034 degrees QTc Int : 463 ms Sinus rhythm with 1st degree A-V block with Premature atrial complexes Right bundle branch block Left anterior fascicular block Bifascicular block Abnormal ECG Confirmed by DORCAS RAZO, RGEG ([id number]), material expeditor RONEL NAVAS ([id number]) on 07/27/2017 3:30:11 PM Referred By: MADHAVI Confirmed By:GREG PHILLIPS MD 07/27/17 1530 Date Greg Phillips MD CC: Wili Nelson DO Signed BEDSIDE GLUCOSE Collected: 07/27/2017 Status: F Source: [place] 11:18 AM [facility] REPOSITORY TYPE CODE TESTS RESULT OUT OF REFERENCE UNITS RANGE LAB L501.080 70-110 mg/dL High BEDSIDE GLU 370 Result Comment: MANAGEMENT OF PATIENT CARE PER NURSING PROTOCOL Performed By: #### L501.080 #### [facility] Point of Care [address] [place] [address] BEDSIDE GLUCOSE Collected: 07/27/2017 Status: F Source: [place] 6:47 AM [facility] REPOSITORY TYPE CODE TESTS RESULT OUT OF REFERENCE UNITS RANGE LAB L501.080 70-110 mg/dL High BEDSIDE GLU 212 Result Comment: MANAGEMENT OF PATIENT CARE PER NURSING PROTOCOL Performed By: #### L501.080 #### [facility] Point of Care [address] [place] [address] BASIC METABOLIC Collected: 07/27/2017 Status: F Source: [place] PROFILE (BMP) 5:20 AM [facility] REPOSITORY TYPE CODE TESTS RESULT OUT OF RANGE REFERENCE UNITS LAB L501.0100 74-106 mg/dL High GLU 215 Result Comment: Glucose result greater than or equal to 200 mg/dL suggests DIABETES MELLITUS per A.D.A. criteria. LAB L501.1000 7-18 mg/dL High BUN 24 LAB L501.1100 0.70-1.30 mg/dL High CREAT,SERUM 1.71 Result Comment: The validity of the calculated GFR AND GFRAA in patients over 70 years has not been determined. Clinical correlation is essential. LAB L501.1110 >60 mL/min Low EST GFR 42 Result Comment: Non- GFR Calc LAB L501.1115 >60 mL/min Low EST GFR - AA 50 Result Comment: GFR Calc LAB L501.1255 ml/min Normal Estimated CRCL 40.34 LAB L501.1300 10-20 RATIO Normal BUN/CRE 14.0 LAB L501.2200 8.5-10 mg/dL Low .1 CA 8.1 LAB L501.5300 136-14 mmol/L Normal 5 NA 138 LAB L501.5600 3.5-5. mmol/L Normal 1 K 3.9 LAB L501.5900 98-107 mmol/L Normal CL 104 LAB L501.6100 21.0-3 mmol/L Normal 2.0 CO2 27.0 LAB L501.6200 5-15 Normal GAP 7 Performed By: #### L500.2500 #### [facility] [address] [place], [address] PROTHROMBIN TIME W/INR Collected: 07/27/2017 Status: F Source: [place] 5:20 AM [facility] REPOSITORY TYPE CODE TESTS RESULT OUT OF RANGE REFERENCE UNITS LAB L300.4150 11.7-14.9 SECONDS High PROTIME 26.7 LAB L300.4200 Normal INR 2.6 Performed By: #### L300.3900 #### [facility] [address] [place] [address], [address] BEDSIDE GLUCOSE Collected: 07/27/2017 Status: F Source: [place] 2:01 AM [facility] REPOSITORY TYPE CODE TESTS RESULT OUT OF REFERENCE UNITS RANGE LAB L501.080 70-110 mg/dL High BEDSIDE GLU 222 Result Comment: MANAGEMENT OF PATIENT CARE PER NURSING PROTOCOL Performed By: #### L501.080 #### [facility] Point of Care [address] [place] [address] BEDSIDE GLUCOSE Collected: 07/26/2017 Status: F Source: [place] 10:44 PM [facility] REPOSITORY TYPE CODE TESTS RESULT OUT OF REFERENCE UNITS RANGE LAB L501.080 70-110 mg/dL High BEDSIDE GLU 282 Result Comment: MANAGEMENT OF PATIENT CARE PER NURSING PROTOCOL Performed By: #### L501.080 #### [facility] Point of Care [address] [place] [address] BEDSIDE GLUCOSE Collected: 07/26/2017 Status: F Source: [place] 4:13 PM [facility] REPOSITORY TYPE CODE TESTS RESULT OUT OF REFERENCE UNITS RANGE LAB L501.080 70-110 mg/dL High BEDSIDE GLU 297 Result Comment: MANAGEMENT OF PATIENT CARE PER NURSING PROTOCOL Performed By: #### L501.080 #### [facility] Point of Care [address] [place] [address] BEDSIDE GLUCOSE Collected: 07/26/2017 Status: F Source: [place] 11:23 AM [facility] REPOSITORY TYPE CODE TESTS RESULT OUT OF REFERENCE UNITS RANGE LAB L501.080 70-110 mg/dL High BEDSIDE GLU 303 Result Comment: MANAGEMENT OF PATIENT CARE PER NURSING PROTOCOL Performed By: #### L501.080 #### [facility] Point of Care [address] [place] [address] BEDSIDE GLUCOSE Collected: 07/26/2017 Status: F Source: [place] 7:38 AM [facility] REPOSITORY TYPE CODE TESTS RESULT OUT OF REFERENCE UNITS RANGE LAB L501.080 70-110 mg/dL High BEDSIDE GLU 229 Result Comment: MANAGEMENT OF PATIENT CARE PER NURSING PROTOCOL Performed By: #### L501.080 #### [facility] Point of Care [address] [place] [address] CONSULTATION Observed: 07/26/2017 Status: F Source: [place] 6:37 AM [facility] RE[facility]IT[facility] Medical Records Department [address] [place] [address] Consultation 07/25/17 0505 MR#: [id number] Acct: [id number] Name: DAVID LOUIS Rep #: [id number] : 1940 76 From: Fidel Malone DO PCP: Wili Nelson DO Status: ADM IN Y Location: ICU ICU01-1 Reason for Consult Date of Consultation: 07/25/17 Reason for Consultation: ICU management History of Present Illness: The patient is a 76-year-old male, with a history as outlined below, who presented to the emergency department on July 24 in an encephalopathic state. Per EMS documentation, the patient was reportedly hypoglycemic with a serum blood glucose of 64. The patient reportedly has a history of recurrent urinary tract infections. Only limited history could be obtained from the patient, as he remains quite lethargic. There are no family members available at the bedside. Prior urine cultures have grown out both MRSA and Pseudomonas in the past. Surface echocardiogram from January 2017 revealed mild concentric LVH with an ejection fraction of 60%. Pulmonary artery systolic pressure was estimated to be 54 mmHg. On presentation to the emergency department, the patient was noted to be afebrile and hemodynamically stable. He was initially saturating 96% on room air. Laboratory evaluation revealed no evidence of a leukocytosis. INR was noted to be 1.6. Chemistry profile was notable for chronic kidney disease with a creatinine of 1.54. Troponin was negative. Urinalysis was concerning for that of an infection. Head CT revealed chronic involutional changes. Lungs were grossly clear on plain film chest x-ray. The patient was subsequently started on antibiotics and was seen in consultation by infectious diseases. The patient was admitted to the general medical floor for treatment. However, he reportedly became tachypneic on the afternoon of July 24, which prompted his transfer to the intensive care unit. Upon review of the vitals that are documented, the patient's respiratory rate was only in the low 20s on 2 separate occasions. There is no additional documentation by the nursing staff. Arterial blood gas revealed a compensated respiratory acidosis. The patient was placed on BiPAP. Past Medical History Past Medical History (Chronic Problems): Chronic Problems History of kidney stones (Chronic) COPD (chronic obstructive pulmonary disease) (Chronic) Type II diabetes mellitus, uncontrolled (Chronic) History of depression (Chronic) History of other venous thrombosis and embolism (Chronic) HLD (hyperlipidemia) (Chronic) HTN (hypertension) (Chronic) Morbid obesity (Chronic) NILO (obstructive sleep apnea) (Chronic) Chronic renal failure, stage 3 (moderate) (Chronic) Bifascicular bundle branch block (Chronic) Colon polyps (Chronic) Family history of colon cancer (Chronic) Abnormal electrocardiogram (Chronic) Allergies MARGIE Inhibitors Allergy (Unknown, Verified 02/07/17 23:24) Unknown cefepime Allergy (Verified 02/07/17 23:24) Other WEAKNESS AND FALLING ipodate [Ipodate] Allergy (Verified 02/07/17 23:24) Shortness of breath levofloxacin [Levofloxacin] Allergy (Verified 02/07/17 23:24) Anaphylaxis lisinopril Allergy (Verified 02/07/17 23:24) Shortness of breath ofloxacin Allergy (Verified 07/24/17 12:12) Unknown Quinolones Allergy (Verified 02/07/17 23:24) Anaphylaxis Home Medications: Ambulatory Orders Medication Instructions Recorded Surgical History: - - Circumcision, excision of kidney stone Psychiatric History: Depression Smoking Status: Never smoker - *Family History Maternal History Items: Cancer - Patient's mother of cancer but he is not sure what kind of cancer. Paternal History Items: Cancer - Father of colon cancer Offspring History Items: - - He has a son who is morbidly obese and suffers from breathing problems and heart problems. Review of Systems Unable to obtain accurate/complete ROS d/t: Due to patient lethargy Patient Problems: Active and Suspected Problems UTI (urinary tract infection) (Acute) Encephalopathy acute (Acute) Hypoglycemia (Acute) Objective: The patient's most recent lab work, culture data and imaging studies have all been personally reviewed. - Physical Exam General: - - Super morbidly obese. Resting supine in bed with BiPAP in place. Currently being maintained on 23/19 cm of water with an FiO2 of 25% HEENT: Atraumatic, PERRLA, Normocephalic Oral: No Gingival or Mucosal Lesions/ Ulcerations, Dry Mucosa Neck: Supple, No Nodes, Trachea Midline, - - Exceedingly large neck circumference with redundant soft tissue Lungs: No rhonchi, No wheeze, No rales, Diminished, - - Poor inspiratory effort Cardiovascular: Regular rate, Regular Rhythm, Normal S1, Normal S2, No murmurs, No rub noted, No Gallop Abdomen: Bowel Sounds Present, Soft, Non Tender, Obese Extremities: No clubbing, No cyanosis, Edema Skin: - - Lower extremity venous stasis dermatitis Musculoskeletal: No Muscle Wasting Lymphatic: No Cervical, Supraclavicular, or Inguinal Adenopathy Neurological: - - Lethargic but will arouse to verbal stimulation and attempt to answer questions. Vital Signs Temp Pulse Resp BP Pulse Ox 97.9 F 63 18 132/68 H 100 07/25/17 04:20 07/25/17 04:20 07/25/17 04:20 07/25/17 04:20 07/25/17 04:20 Oxygen Flow Rate 25 Oxygen Delivery Method Bi-pap Weight: 382 lb 15.087 oz Body Mass Index (BMI) 51.9 Intake and Output for Last 24 Hours Intake Total 523 / 523 Output Total 900 / 900 Balance -377 / -377 Microbiology Past 72 Hours 07/24/17 12:45 Respiratory Panel (PCR) - Final Mucosa - Nasopharyngeal Laboratory Tests Past 24 Hrs WBC POC Glucose POC Glucose 150 H 169 H 144 H POC Glucose 90 Clinical Impression(s) from Imaging Studies Brain CT 07/24/17 08:13 IMPRESSION: Chronic involutional changes of the brain. Electronically Signed: Seymour Shelley MD at 9:37 EST Tel [phone], Service support , Chest X-Ray 07/24/17 08:13 IMPRESSION: Cardiomegaly. Electronically Signed: Seymour Shelley MD at 8:49 EST Tel [phone], Service support , Assessment/Plan Active and Suspected Problems UTI (urinary tract infection) (Acute) Encephalopathy acute (Acute) Hypoglycemia (Acute) RECOMMENDATIONS: 1. Continue BiPAP with naps and nightly 2. Wean supplemental oxygen to maintain saturations 88-92%. 3. Encourage incentive spirometer use and mobilize patient as tolerated 4. Physical therapy to evaluate patient. Out of bed to chair today. 5. Continue antibiotics as ordered IMPRESSIONS: 1. Metabolic/infectious encephalopathy Improved with use of BiPAP therapy. Avoid sedating medications. Continue treatment for underlying cystitis. 2. Compensated respiratory acidosis/concern for sleep disordered breathing Recommend continuing the use of noninvasive positive pressure ventilation with naps and nightly. Strongly recommend outpatient polysomnogram and follow-up in the pulmonary medicine clinic. Encourage incentive spirometer use and mobilize patient as tolerated. 3. Recurrent cystitis Continue antibiotics, pending finalized culture results. 4. Super morbid obesity/chronic kidney disease/diabetes mellitus/NILO Complicates care, management, recovery and prognosis. Okay to continue baseline outpatient medications. Physical therapy to evaluate patient today. Out of bed to chair. This note was generated with [employer] software. It may contain incorrect words, spelling, and punctuation that were not noted in checking the note before signing. Code Visit Inpatient Irving AND M: [id number] Init Hosp L3 07/26/17 0637 <Electronically signed by Fidel Malone DO> Date Fidel Malone DO Cosigner Signature (if applicable): Date CC: Fidel Malone D.O.; Wili Nelson DO; Carlos King MD Signed CBC-COMPLETE BLOOD CNT Collected: 07/26/2017 Status: F Source: [place] NO DIFF 4:20 AM [facility] REPOSITORY TYPE CODE TESTS RESULT OUT OF RANGE REFERENCE UNITS LAB L100.1000 4.4-11.0 K/mm3 Normal WBC 5.8 LAB L100.1200 4.6-6.2 M/mm3 Low RBC 4.40 LAB L100.1300 13.0-16.5 g/dl Low HGB 12.7 LAB L100.1400 40-54 % Low HCT 39.0 LAB L100.1500 80-94 fL Normal MCV 88.6 LAB L100.1600 27.0-32.0 pg Normal MCH 28.9 LAB L100.1700 32-36 g/gl Normal MCHC 32.6 LAB L100.1810 11.6-14.6 % Normal RDW CV 13.9 LAB L100.1820 35.1-43.9 fl High RDW SD 44.1 LAB L100.1900 150-450 K/mm3 Normal PLT 211 LAB L100.2000 6.2-12.0 fl Normal MPV 9.5 Performed By: #### L100.0500 #### [facility] [address] [place], [address] BEDSIDE GLUCOSE Collected: 07/26/2017 Status: F Source: [place] 2:08 AM [facility] REPOSITORY TYPE CODE TESTS RESULT OUT OF REFERENCE UNITS RANGE LAB L501.080 70-110 mg/dL High BEDSIDE GLU 274 Result Comment: MANAGEMENT OF PATIENT CARE PER NURSING PROTOCOL Performed By: #### L501.080 #### [facility] Point of Care [address] [place] [address] BEDSIDE GLUCOSE Collected: 07/25/2017 Status: F Source: [place] 9:41 PM [facility] REPOSITORY TYPE CODE TESTS RESULT OUT OF REFERENCE UNITS RANGE LAB L501.080 70-110 mg/dL High BEDSIDE GLU 327 Result Comment: MANAGEMENT OF PATIENT CARE PER NURSING PROTOCOL Performed By: #### L501.080 #### [facility] Point of Care [address] [place] [address] PROTHROMBIN TIME W/INR Collected: 07/25/2017 Status: F Source: [place] 5:45 PM [facility] REPOSITORY TYPE CODE TESTS RESULT OUT OF RANGE REFERENCE UNITS LAB L300.4150 11.7-14.9 SECONDS High PROTIME 19.6 LAB L300.4200 Normal INR 1.7 Performed By: #### L300.3900 #### [facility] [address] [place], [address] BEDSIDE GLUCOSE Collected: 07/25/2017 Status: F Source: [place] 4:21 PM [facility] REPOSITORY TYPE CODE TESTS RESULT OUT OF REFERENCE UNITS RANGE LAB L501.080 70-110 mg/dL High BEDSIDE GLU 290 Result Comment: MANAGEMENT OF PATIENT CARE PER NURSING PROTOCOL Performed By: #### L501.080 #### [facility] Point of Care [address] [place] [address] BEDSIDE GLUCOSE Collected: 07/25/2017 Status: F Source: [place] 11:44 AM [facility] REPOSITORY TYPE CODE TESTS RESULT OUT OF REFERENCE UNITS RANGE LAB L501.080 70-110 mg/dL High BEDSIDE GLU 322 Result Comment: MANAGEMENT OF PATIENT CARE PER NURSING PROTOCOL Performed By: #### L501.080 #### [facility] Point of Care [address] [place] [address] URINE DRUG SCREEN Collected: 07/25/2017 Status: F Source: [place] (VISTA) 7:10 AM [facility] REPOSITORY TYPE CODE TESTS RESULT OUT OF RANGE REFERENCE UNITS LAB L505.0075 TO BE Normal CONFIRMED Result Comment: CONFIRMATORY TESTING FOR ALL POSITIVE URINE DRUG SCREEN RESULTS WILL ONLY BE SENT OUT UPON PHYSICIAN ORDER. VISTA Urine Drug Screen methods provide only preliminary analytical test results. A more specific alternate chemical method must be used in order to obtain a confirmed analytical result. Gas chromatography/mass spectrometery (GC/MS) is the preferred confirmatory method. Clinical consideration and professional judgement should be applied to any drug of abuse test result, particularly when preliminary positive results are used. URINE TCA TESTING MUST BE ORDERED SEPARATELY. USE TEST MNEMONIC: [facility] LAB L505.5005 VISTA UDS PH 5 Normal LAB L505.5015 <1000 ng/mL AMPHETAMINES Normal NEGATIVE LAB L505.5025 < 200 ng/mL BARBITIURATES Normal NEGATIVE LAB L505.5035 < 200 ng/mL BENZODIAZIPINE Normal NEGATIVE LAB L505.5045 < 300 ng/mL COCAINE Normal NEGATIVE LAB L505.5055 < 500 ng/mL ECSTACY Normal NEGATIVE LAB L505.5065 < 300 ng/mL METHADONE Normal NEGATIVE LAB L505.5075 < 300 ng/mL OPIATES Normal NEGATIVE LAB L505.5085 < 25 ng/mL PCP Normal NEGATIVE LAB L505.5095 < 50 ng/mL THC Normal NEGATIVE Performed By: #### L505.5000 #### [facility] [address] [place], [place], [address] AMMONIA Collected: 07/25/2017 Status: F Source: [place] 7:10 AM [facility] REPOSITORY TYPE CODE TESTS RESULT OUT OF RANGE REFERENCE UNITS LAB L503.5510 11-32 umol/L Normal AMMONIA 12.0 Performed By: #### L503.5510 #### [facility] [address] [place], [place], [address] THYROID STIM HORMONE Collected: 07/25/2017 Status: F Source: [place] (TSH) 7:10 AM [facility] REPOSITORY TYPE CODE TESTS RESULT OUT OF RANGE REFERENCE UNITS LAB L501.9520 0.358-3.74 uIU/mL Normal TSH 0.77 Performed By: #### L501.9520 #### [facility] [address] [place], [address] URINE DRUG SCREEN Collected: 07/25/2017 Status: P Source: PAT[place]ICIA (VISTA) 6:50 AM [facility] REPOSITORY TYPE CODE TESTS RESULT OUT OF RANGE REFERENCE UNITS LAB L505.0075 TO BE Normal CONFIRMED Result Comment: CONFIRMATORY TESTING FOR ALL POSITIVE URINE DRUG SCREEN RESULTS WILL ONLY BE SENT OUT UPON PHYSICIAN ORDER. VISTA Urine Drug Screen methods provide only preliminary analytical test results. A more specific alternate chemical method must be used in order to obtain a confirmed analytical result. Gas chromatography/mass spectrometery (GC/MS) is the preferred confirmatory method. Clinical consideration and professional judgement should be applied to any drug of abuse test result, particularly when preliminary positive results are used. URINE TCA TESTING MUST BE ORDERED SEPARATELY. USE TEST MNEMONIC: UTCA Performed By: #### L505.5000 #### [facility] [address] [place], [address] BEDSIDE GLUCOSE Collected: 07/25/2017 Status: F Source: PAT[place]ICIA 6:40 AM [facility] REPOSITORY TYPE CODE TESTS RESULT OUT OF REFERENCE UNITS RANGE LAB L501.080 70-110 mg/dL High BEDSIDE GLU 230 Result Comment: MANAGEMENT OF PATIENT CARE PER NURSING PROTOCOL Performed By: #### L501.080 #### [facility] Point of Care [address] [place] [address] CBC-COMPLETE BLOOD CNT Collected: 07/25/2017 Status: F Source: [place] NO DIFF 4:20 AM [facility] REPOSITORY TYPE CODE TESTS RESULT OUT OF RANGE REFERENCE UNITS LAB L100.1000 4.4-11.0 K/mm3 Normal WBC 7.5 LAB L100.1200 4.6-6.2 M/mm3 Normal RBC 4.79 LAB L100.1300 13.0-16.5 g/dl Normal HGB 13.6 LAB L100.1400 40-54 % Normal HCT 42.4 LAB L100.1500 80-94 fL Normal MCV 88.5 LAB L100.1600 27.0-32.0 pg Normal MCH 28.4 LAB L100.1700 32-36 g/gl Normal MCHC 32.1 LAB L100.1810 11.6-14.6 % Normal RDW CV 14.1 LAB L100.1820 35.1-43.9 fl High RDW SD 45.2 LAB L100.1900 150-450 K/mm3 Normal PLT 210 LAB L100.2000 6.2-12.0 fl Normal MPV 9.3 Performed By: #### L100.0500 #### [facility] [address] [facility] [facility] [place], [place], [address] BASIC METABOLIC Collected: 07/25/2017 Status: F Source: [place] PROFILE (BMP) 4:20 AM [facility] REPOSITORY TYPE CODE TESTS RESULT OUT OF RANGE REFERENCE UNITS LAB L501.0100 74-106 mg/dL High GLU 218 Result Comment: Glucose result greater than or equal to 200 mg/dL suggests DIABETES MELLITUS per A.D.A. criteria. LAB L501.1000 7-18 mg/dL High BUN 25 LAB L501.1100 0.70-1.30 mg/dL High CREAT,SERUM 1.64 Result Comment: The validity of the calculated GFR AND GFRAA in patients over 70 years has not been determined. Clinical correlation is essential. LAB L501.1110 >60 mL/min Low EST GFR 44 Result Comment: Non- GFR Calc LAB L501.1115 >60 mL/min Low EST GFR - AA 53 Result Comment: GFR Calc LAB L501.1255 ml/min Normal Estimated CRCL 42.06 LAB L501.1300 10-20 RATIO Normal BUN/CRE 15.2 LAB L501.2200 8.5-10 mg/dL Low .1 CA 8.1 LAB L501.5300 136-14 mmol/L Normal 5 NA 140 LAB L501.5600 3.5-5. mmol/L Normal 1 K 4.1 LAB L501.5900 98-107 mmol/L Normal CL 103 LAB L501.6100 21.0-3 mmol/L Normal 2.0 CO2 28.0 LAB L501.6200 5-15 Normal GAP 9 Performed By: #### L500.2500, L501.5200, M100.0650 #### [facility] [address] [place], [address] MAGNESIUM Collected: 07/25/2017 Status: F Source: [place] 4:20 AM [facility] REPOSITORY TYPE CODE TESTS RESULT OUT OF RANGE REFERENCE UNITS LAB L501.5200 1.6-2.6 mg/dL Normal MG 2.2 Result Comment: Please note revised Magnesium reference range effective 2017. Performed By: #### L500.2500, L501.5200, M100.0650 #### [facility] [address] [place], [address] THYROID STIM HORMONE Collected: 07/25/2017 Status: F Source: PATRICIA (TSH) 4:20 AM [facility] REPOSITORY TYPE CODE TESTS RESULT OUT OF RANGE REFERENCE UNITS LAB L501.9520 0.358-3.74 uIU/mL Normal TSH 0.80 Performed By: #### L501.9520 #### [facility] [address] [place], [address] BEDSIDE GLUCOSE Collected: 07/25/2017 Status: F Source: PAT[place] 1:38 AM [facility] REPOSITORY TYPE CODE TESTS RESULT OUT OF REFERENCE UNITS RANGE LAB L501.080 70-110 mg/dL High BEDSIDE GLU 150 Result Comment: MANAGEMENT OF PATIENT CARE PER NURSING PROTOCOL Performed By: #### L501.080 #### [facility] Point of Care [address] [place] [address] BEDSIDE GLUCOSE Collected: 07/24/2017 Status: F Source: [place] 9:13 PM [facility] REPOSITORY TYPE CODE TESTS RESULT OUT OF REFERENCE UNITS RANGE LAB L501.080 70-110 mg/dL High BEDSIDE GLU 169 Result Comment: MANAGEMENT OF PATIENT CARE PER NURSING PROTOCOL Performed By: #### L501.080 #### [facility] Point of Care [address] [place] [address] BEDSIDE GLUCOSE Collected: 07/24/2017 Status: F Source: [place] 7:02 PM [facility] REPOSITORY TYPE CODE TESTS RESULT OUT OF REFERENCE UNITS RANGE LAB L501.080 70-110 mg/dL High BEDSIDE GLU 144 Result Comment: MANAGEMENT OF PATIENT CARE PER NURSING PROTOCOL Performed By: #### L501.080 #### [facility] Point of Care [address] [place] [address] BLOOD GASES BY CPS Collected: 07/24/2017 Status: F Source: [place] 4:52 PM [facility] REPOSITORY TYPE CODE TESTS RESULT OUT OF RANGE REFERENCE UNITS LAB L9000.9990 Normal BLD GAS TYPE ART LAB L9001.1000 R Normal SITE Brachial LAB L9001.1010 Normal ABIGAIL TEST POS LAB L9001.1050 O2 Bi Normal Delivery Dev / C PAP LAB L9001.1070 RR 14 Normal LAB L9001.1074 25 Normal FI02 LAB L9001.1088 23 Normal IPAP LAB L9001.1090 19 Normal EPAP LAB L9001.1104 Normal Results To HOSP MD LAB L9001.1105 Normal Time Given 1655 LAB L9001.1110 7.35-7.45 pH Normal - I-STAT 7.37 LAB L9001.1210 35-45 mmHg High pCO2 - ISTAT 50.4 LAB L9001.1310 75-100 mmHG 85 Normal PO2 I-STAT LAB L9001.2300 22-26 mmol/L High HCO3 ISTAT 29.3 LAB L9001.2400 -2 to +2 mmol/L High BE 4 ISTAT LAB L9001.2415 mmol/L 31 Normal TOTAL CO2 ISTAT LAB L9001.2425 95-99 % 96 Normal SO2 ISTAT Performed By: #### L9000.0800 #### [facility] Point of Care [address] [place] [address] M R STAPH AUREUS Collected: 07/24/2017 Status: F Source: [place] DNA BY PCR 4:50 PM [facility] REPOSITORY TYPE CODE TESTS RESULT OUT OF RANGE REFERENCE UNITS LAB L8200.1100 Negative Normal MRSA Negative RESULT Performed By: #### L8200.1000 #### [facility] [address] [place], [address] CONSULTATION Observed: 07/24/2017 Status: F Source: PATRICIA 4:40 PM [facility] REPOSITORY [facility] Medical Records Department [address] [place] [address] Consultation 07/24/17 1635 MR#: [id number] Acct: [id number] Name: DAVID LOUIS Rep #: [id number] : 1940 76 From: Carlos King MD PCP: Wili Nelson DO Status: ADM IN Y Location: ICU ICU01-1 Problem List (1) UTI (urinary tract infection) Status: Acute Reason for Consult: uti Consulted by: Dr. Clemens History of Present Illness: The patient is a 76 year old M who presented with one day history of intermittent confusion, and fall with unresponsiveness today. Pt unable to provide history. Has h/o recurrent uti, including pseudomonas. UA in ED showed heavy pyuria, cxs sent, started on zosyn, admitted to the floor. No fever here. ROS unobtainable due to mental status. - Medical History Past Medical History (Chronic Problems): Chronic Problems History of kidney stones (Chronic) COPD (chronic obstructive pulmonary disease) (Chronic) Type II diabetes mellitus, uncontrolled (Chronic) History of depression (Chronic) History of other venous thrombosis and embolism (Chronic) HLD (hyperlipidemia) (Chronic) HTN (hypertension) (Chronic) Morbid obesity (Chronic) NILO (obstructive sleep apnea) (Chronic) Chronic renal failure, stage 3 (moderate) (Chronic) Bifascicular bundle branch block (Chronic) Colon polyps (Chronic) Family history of colon cancer (Chronic) Abnormal electrocardiogram (Chronic) Allergies/Adverse Reactions: Allergies MARGIE Inhibitors Allergy (Unknown, Verified 02/07/17 23:24) Unknown cefepime Allergy (Verified 02/07/17 23:24) Other WEAKNESS AND FALLING ipodate [Ipodate] Allergy (Verified 02/07/17 23:24) Shortness of breath levofloxacin [Levofloxacin] Allergy (Verified 02/07/17 23:24) Anaphylaxis lisinopril Allergy (Verified 02/07/17 23:24) Shortness of breath ofloxacin Allergy (Verified 07/24/17 12:12) Unknown Quinolones Allergy (Verified 02/07/17 23:24) Anaphylaxis Home Medications: Ambulatory Orders Medication Instructions Recorded Vital Signs Temp Pulse Resp BP Pulse Ox 97.4 F L 64 22 H 158/76 H 95 07/24/17 15:56 07/24/17 15:56 07/24/17 15:56 07/24/17 15:56 07/24/17 15:56 Oxygen Flow Rate 1 Oxygen Delivery Method Room Air Weight: 173.7 kg Body Mass Index (BMI) 51.9 Microbiology Past 72 Hours 07/24/17 12:45 Respiratory Panel (PCR) - Final Mucosa - Nasopharyngeal Laboratory Tests Past 24 Hrs Lactic Acid Pending - Other Studies Radiology: [] reviewed Other Studies: [] Route of nutrition/ use of supplements: [] Nutritional Intake: [] IV Site: [] Lane Catheter: [] - Physical Exam General: Lethargic - opens eyes briefly to physical stim HEENT: Atraumatic, PERRLA Neck: Supple, No Nodes Lungs: Clear to auscultation, Normal air movement Cardiovascular: Regular rate, Regular Rhythm Abdomen: Bowel Sounds Present, Soft, Non Tender, Non-Distended, Obese Extremities: Edema - mild BLE Skin: No rashes IV Site: Peripheral, without redness Musculoskeletal: No Tenderness to Palpation of Joints or Extremities - Assessment/Plan Antibiotics: [] Assessment/Plan: [] Active and Suspected Problems UTI (urinary tract infection) (Acute) Encephalopathy acute (Acute) Hypoglycemia (Acute) Heavy pyuria with h.o UTI in past. Agree with zosyn to cover past growth of pseudomonas. Also with yeast and MRSA from urine in the past. If he does not show improvement or spikes fever, would add vanc. Thank you, will follow. 07/24/17 1640 <Electronically signed by Carlos King MD> Date Carlos King MD Cosigner Signature (if applicable): Date CC: Fidel Malone D.O.; Wili Nelson DO; Carlos King MD Signed LACTIC ACID Collected: 07/24/2017 Status: F Source: PATRICIA 4:04 PM [facility] REPOSITORY Order Comment: Yes/No query for Sepsis Lactate Rule Y TYPE CODE TESTS RESULT OUT OF RANGE REFERENCE UNITS LAB L503.6005 0.4-2.0 mmol/L Normal LACTIC ACID 1.3 Performed By: #### L503.6005 #### [facility] [address] [place], [address] Observed: 07/24/2017 Status: F Source: [place] CULTURE, BLOOD (WB) 1:00 PM [facility] REPOSITORY ONLY ONE SET OF STICKERS. ONLY ONE SET DRAWN. BC No growth in 5 days. Performed By: #### M100.638, M200.1000 #### [facility] [address] [place], [address] Observed: 07/24/2017 Status: F Source: [place] RESPIRATORY PANEL 12:45 PM [facility] MOLECULAR REPOSITORY RP PANEL ADENOVIRUS Not Detected HUMAN METAPHNEUMO Not Detected INFLUENZA A Not Detected INFLUENZA A (SUBTYPE H1) Not Detected INFLUENZA A (SUBTYPE H3) Not Detected INFLUENZA B Not Detected PARAINFLUENZA 1 Not Detected PARAINFLUENZA 2 Not Detected PARAINFLUENZA 3 Not Detected PARAINFLUENZA 4 Not Detected RHINOVIRUS Not Detected RSV A Not Detected RSV B Not Detected NAAT METHOD Testing was performed using nucleic acid amplification Performed By: #### M100.638, M200.1000 #### [facility] [address] [place], [address] HISTORY AND PHYSICAL Observed: 07/24/2017 Status: F Source: [place] EXAM 12:21 PM [facility] REPOSITORY [facility] Medical Records Department [address] [place] [address] History and Physical 07/24/17 1122 MR#: [id number] Acct: [id number] Name: DAVID LOUIS Malena Rep #: [id number] : 1940 76 From: Elver Clemens MD PCP: Wili Nelson DO Status: ADM IN Y Location: [facility] KB087-5 Problem List (1) History of kidney stones Status: Chronic (2) COPD (chronic obstructive pulmonary disease) Status: Chronic (3) Type II diabetes mellitus, uncontrolled Status: Chronic Qualifiers: Diabetes mellitus complication status: with hypoglycemia Diabetes mellitus complication detail: without coma Diabetes mellitus vocational rehab consultant insulin use: with vocational rehab consultant use Qualified Code(s): E11.649 - Type 2 diabetes mellitus with hypoglycemia without coma; Z79.4 - custodial (current) use of insulin (4) History of depression Status: Chronic (5) History of other venous thrombosis and embolism Status: Chronic (6) HLD (hyperlipidemia) Status: Chronic (7) HTN (hypertension) Status: Chronic (8) Morbid obesity Status: Chronic (9) NILO (obstructive sleep apnea) Status: Chronic (10) Chronic renal failure, stage 3 (moderate) Status: Chronic (11) Bifascicular bundle branch block Status: Chronic (12) Colon polyps Status: Chronic (13) Family history of colon cancer Status: Chronic (14) Abnormal electrocardiogram Status: Chronic (15) UTI (urinary tract infection) Status: Acute (16) Encephalopathy acute Status: Acute (17) Hypoglycemia Status: Acute History of Present Illness Date of Admission: 07/24/17 Chief Complaint: Altered mental status The patient is a 76 year old M multiple comorbidities including diabetes mellitus type 2, recurrent UTIs who was brought to the emergency department after patient was found by the with significant lethargy. Had started a day prior to coming in when felt patient was having intermittent episodes of confusion. The had a thump in patient's bedroom on the morning of his presentation. Upon arrival found patient to be significantly lethargic the EMS squad was called. EMS upon arrival found patient to be hypoglycemic with blood glucose in the 60s resuscitation was started in the field and patient transferred to the ED workup in the ED was consistent with acute cystitis. Patient was Zosyn and admitted to a regular nursing floor for further management Past Medical History Past Medical History (Chronic Problems): Chronic Problems History of kidney stones (Chronic) COPD (chronic obstructive pulmonary disease) (Chronic) Type II diabetes mellitus, uncontrolled (Chronic) History of depression (Chronic) History of other venous thrombosis and embolism (Chronic) HLD (hyperlipidemia) (Chronic) HTN (hypertension) (Chronic) Morbid obesity (Chronic) NILO (obstructive sleep apnea) (Chronic) Chronic renal failure, stage 3 (moderate) (Chronic) Bifascicular bundle branch block (Chronic) Colon polyps (Chronic) Family history of colon cancer (Chronic) Abnormal electrocardiogram (Chronic) Allergies MARGIE Inhibitors Allergy (Unknown, Verified 02/07/17 23:24) Unknown cefepime Allergy (Verified 02/07/17 23:24) Other WEAKNESS AND FALLING ipodate [Ipodate] Allergy (Verified 02/07/17 23:24) Shortness of breath levofloxacin [Levofloxacin] Allergy (Verified 02/07/17 23:24) Anaphylaxis lisinopril Allergy (Verified 02/07/17 23:24) Shortness of breath Quinolones Allergy (Verified 02/07/17 23:24) Anaphylaxis Home Medications: Ambulatory Orders Medication Instructions Recorded Surgical History: - - Circumcision, excision of kidney stone Psychiatric History: Depression Smoking Status: Never smoker - *Family History Maternal History Items: Cancer - Patient's mother of cancer but he is not sure what kind of cancer. Paternal History Items: Cancer - Father of colon cancer Offspring History Items: - - He has a son who is morbidly obese and suffers from breathing problems and heart problems. Review of Systems Unable to obtain accurate/complete ROS d/t: Being lethargic VTE Information - Inpt Only VTE Present on Admission: No VTE Mechan Device Prophylaxis: Knee High MARC Hose VTE Pharm Prophylaxis ordered?: Yes Patient Problems: Active and Suspected Problems UTI (urinary tract infection) (Acute) Encephalopathy acute (Acute) Hypoglycemia (Acute) Objective: GENERAL: Lethargic HEENT: Clear conjunctiva, NECK; supple, normal thyroid, CHEST: Diminished to auscultation bilaterally, HEART: Regular S1 S2, no audible murmurs ABDOMEN: soft, non-tender, normoactive bowel sounds, RECTAL: deferred EXTREMITIES: No edema, no clubbing, no cyanosis. FIELD LABORER: Lethargic . SKIN: No RASH - Physical Exam Vital Signs Temp Pulse Resp BP Pulse Ox 97.5 F L 75 17 197/89 H 99 07/24/17 08:06 07/24/17 10:35 07/24/17 10:35 07/24/17 10:35 07/24/17 10:35 Assessment/Plan Active and Suspected Problems UTI (urinary tract infection) (Acute) Encephalopathy acute (Acute) Hypoglycemia (Acute) 76-year-old gentleman with multiple comorbidities with recurrent UTI presenting with altered mental status. Patient was found to be hypoglycemic on admission and also had a UTI 1. Acute infectious encephalopathy secondary to UTI previous cultures have grown Pseudomonas patient was placed on Zosyn repeat culture sent consult placed to infectious disease 2. 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 Patient is on long-acting insulin as well as scheduled pre-meal short acting insulin also placed on Accu-Cheks before meals and at bedtime with sliding scale insulin 2. Diabetic nephropathy with chronic kidney disease stage III patient kidney function at baseline 4. Hypertension-blood pressure controlled, home medications continued with dose adjustment as needed 5. Obstructive sleep apnea 7. Chronic hypoxic respiratory failure multifactorial (COPD, obesity hypoventilation syndrome and NILO 7. COPD currently stable 8. History of PE patient was previously on Coumadin 9. History of kidney stones 10. Depression 11. Morbid obesity with BMI of 53.2 12. DVT prophylaxis Lovenox 40 mg SC every 12 (BMI greater than 40) Code Visit Inpatient E AND M: 10884 Init Hosp L3 07/24/17 1221 <Electronically signed by Elver Clemens MD> Date Elver Clemens MD Cosigner Signature: Date (if applicable) CC: Elver Clemens MD; Wili Nelson DO Signed BEDSIDE GLUCOSE Collected: 07/24/2017 Status: F Source: [place] 11:43 AM [facility] REPOSITORY TYPE CODE TESTS RESULT OUT OF RANGE REFERENCE UNITS LAB L501.080 70-110 mg/dL Normal BEDSIDE GLU 90 Result Comment: MANAGEMENT OF PATIENT CARE PER NURSING PROTOCOL Performed By: #### L501.080 #### [facility] Point of Care [facility] [place] [address] Observed: 07/24/2017 Status: F Source: [place] CULTURE, URINE 10:55 AM [facility] REPOSITORY Interface Comments: use urine in lab Urine Culture RESULTS CALLED TO JONI Martinez/NEFTALY 07/27/17 0755 Felicita Balbuena. Copy of report sent to Infection Control Printer [id number] 07/27/17 6798 ARGELIA. ORGANISM 1: Streptococcus agalactiae (B) [place] Count 25,000-50,000 ORGANISM 2: Meth. resistant Staph. aureus [place] Count 25,000-50,000 ORGANISM 3: Pseudomonas aeroginosa [place] Count <1000 Streptococcus agalactiae (B): REACTION Ampicillin $ <=0.25 S Benzylpenicillin NF <=0.06 S Ceftriaxone $ <=0.12 S Inducable Clindamycin Resistan - Linezolid $$$$ <=2 S Vancomycin $ 0.5 S (NF) indicates non-formulary drug at [facility]. Approval by Infectious Disease Specialist required before non-formulary drugs may be ordered and/or dispensed. * CLSI guidelines does not recommend testing of cephalosporins. This interpretation is deduced from Beta-lactam/penicillin results. Meth. resistant Staph. aureus: REACTION Benzylpenicillin NF >=0.5 R Cefoxitin *NF + Inducable Clindamycin Resistan - Gentamicin $ <=0.5 S Levofloxacin $ 0.5 S Linezolid $$$$ 2 S Nitrofurantoin $ <=16 S Oxacillin NF >=4 R Rifampin $$ <=0.5 S Tetracycline NF <=1 S Trimethoprim/Sulfametho $ <=10 S Vancomycin $ 1 S (NF) indicates non-formulary drug at [facility]. Approval by Infectious Disease Specialist required before non-formulary drugs may be ordered and/or dispensed. * CLSI guidelines does not recommend testing of cephalosporins. This interpretation is deduced from Beta-lactam/penicillin results. Pseudomonas aeroginosa: REACTION Cefepime $ 32 R Ceftazidime *NF 16 I Ciprofloxacin $ 1 S Gentamicin $ <=1 S Imipenem *NF 1 S Levofloxacin $ 4 I Tobramycin $ <=1 S (NF) indicates non-formulary drug at [facility]. Approval by Infectious Disease Specialist required before non-formulary drugs may be ordered and/or dispensed. Performed By: #### L500.2500, L501.5200, M100.0650 #### [facility] [address] [facility], [address] EMERGENCY DEPARTMENT Observed: 07/24/2017 Status: F Source: [place] SUMMARY 10:45 AM [facility] REPOSITORY [facility] Medical Records Department [address] [place] [address] Emergency Department Summary 07/24/17 0856 MR#: [id number] Acct: [id number] Name: DAVID LOUIS Rep #: [id number] : 1940 76 From: Matty Cosme MD PCP: Wili Nelson DO Status: REG ER - ER Visit Summary Date of Service: 07/24/17 Chief Complaint: Altered level of consciousness History of Present Illness: The patient is a 76 M who has had altered LOC today. Family noted that he was not acting right. They called EMS and the blood glucose was 64. They state that when he goes below 70 he acts like this. He does have a history of multiple urinary tract infections in the past. Patient also complains of a headache. He has not had a fever. He is on Coumadin, but family thinks it is for a blood clot but they are not sure. Family does not know much about his history and the patient is talking very soft and does not contribute much of the history Physical Examination: Vital signs reviewed. Obese male in no distress. HEENT exam unremarkable. Heart is slightly irregular but then goes back to regular rhythm without murmurs. Lungs have diminished sounds bilaterally. Difficult to auscultate due to body habitus. Abdomen soft nontender. Extremities reveal 1+ symmetric edema. He is alert and oriented times self. His neurologic exam is otherwise unremarkable Test Results: EKG is normal sinus rhythm with a right bundle branch block and left anterior fascicular block. Chest x-ray reveals cardiomegaly. CT scan of the head reveals chronic changes. White blood cell count normal, INR 1.6, urinalysis reveals greater than 100 white blood cells. Emergency Department Course and Treatment: Patient is delirious and drowsy. However, he will wake up to answer questions. No signs of stroke or any lateralizing weakness. He was given some orange juice with some Tylenol. He was feeling nauseous I gave him Zofran. His urinalysis does reveal UTI. Patient is delirious and I feel he needs to be admitted to the hospital. I will start him on IV Zosyn based on his last urine culture with Pseudomonas and MRSA. Treatment Plan: Admission for antibiotics and monitoring Disposition: Admit Impression: UTI, delirium This note was generated with [employer] dictation software. It may contain incorrect words, spelling, and punctuation that were not noted in review of the chart prior to signing ED Disposition - Plan for ED Patient: Chief Complaint: Hypoglycemia Referrals: Wili Nelson DO [Primary Care Provider] - What to do if you have Problems For any increased pain, shortness of breath, bleeding, nausea or vomiting, chest pain, or any unexpected problems, contact your Primary Care Provider. Call [facility] ([phone]) or report to the closest Emergency Room. Call 911 if necessary. 07/24/17 1045 <Electronically signed by Matty Cosme MD> Date Matty Cosme MD Cosigner Signature (If Indicated): Date CC: Wili Nelson DO CBC W/DIFF, AUTOMATED Collected: 07/24/2017 Status: F Source: [place] 9:45 AM [facility] REPOSITORY TYPE CODE TESTS RESULT OUT OF RANGE REFERENCE UNITS LAB L100.1000 4.4-11.0 K/mm3 Normal WBC 9.6 LAB L100.1200 4.6-6.2 M/mm3 Normal RBC 5.23 LAB L100.1300 13.0-16.5 g/dl Normal HGB 15.3 LAB L100.1400 40-54 % Normal HCT 45.1 LAB L100.1500 80-94 fL Normal MCV 86.2 LAB L100.1600 27.0-32.0 pg Normal MCH 29.3 LAB L100.1700 32-36 g/gl Normal MCHC 33.9 LAB L100.1810 11.6-14.6 % Normal RDW CV 13.7 LAB L100.1820 35.1-43.9 fl Normal RDW SD 42.1 LAB L100.1900 150-450 K/mm3 Normal PLT 242 LAB L100.2000 6.2-12.0 fl Normal MPV 9.5 LAB L100.2100 47-70 % High NEUT% 83.0 LAB L100.2200 19-41 % Low LY% 7.4 LAB L100.2300 0-10 % Normal MONO% 8.9 LAB L100.2400 0-5 % Normal EO% 0.3 LAB L100.2500 0-1 % Normal BASO% 0.3 LAB L100.2550 0.0-0.9 % Normal IM GRAN % 0.100 Result Comment: IG% - Immature Granulocytes (promyelocytes, myelocytes and metamyelocytes) > 1% indicates that a LEFT SHIFT is Present. LAB L100.2620 2.0-7.7 X10 3/uL High Absolute Neut 7.9 LAB L100.2720 0.83-4.51 X10 3/ul Low Absolute Lymph 0.71 Performed By: #### L100.0100 #### [facility] [address], [address] PROTHROMBIN TIME W/INR Collected: 07/24/2017 Status: F Source: [place] 9:45 AM [facility] REPOSITORY TYPE CODE TESTS RESULT OUT OF RANGE REFERENCE UNITS LAB L300.4150 11.7-14.9 SECONDS High PROTIME 18.4 LAB L300.4200 Normal INR 1.6 Performed By: #### L300.3900 #### [facility] [address] [place], [address] COMPREHENSIVE METABOLIC Collected: 07/24/2017 Status: F Source: [facility] 9:45 AM [facility] REPOSITORY Order Comment: 'TROP' Serial specimen #1, #2, #3, or #4: 1 TYPE CODE TESTS RESULT OUT OF RANGE REFERENCE UNITS LAB L501.0100 70-110 mg/dL Normal GLU 74 LAB L501.1000 7-18 mg/dL High BUN 25 LAB L501.1100 0.70-1.30 mg/dL High 1.54 CREAT,SERUM Result Comment: The validity of the calculated GFR AND GFRAA in patients over 70 years has not been determined. Clinical correlation is essential. LAB L501.1110 >60 mL/min Low EST GFR 47 Result Comment: Non- GFR Calc LAB L501.1115 >60 mL/min Low EST GFR - AA 57 Result Comment: GFR Calc LAB L501.1255 ml/min Normal Estimated CRCL 44.79 LAB L501.1300 10-20 RATIO Normal BUN/CRE 16.2 LAB L501.1500 6.4-8. g/dL High 2 T PROT 8.5 LAB L501.1800 3.2-5. g/dL Normal 0 ALB 3.3 LAB L501.1950 2.2-4. g/dL High 2 GLOB 5.2 LAB L501.2000 0.9-2. RATIO Low 4 A/G 0.6 LAB L501.2200 8.5-10 mg/dL Normal .1 CA 9.0 LAB L501.4100 15-37 U/L Normal AST 18 LAB L501.4305 45-117 U/L Normal ALK P 100 LAB L501.4405 16-61 U/L Normal ALT 26 Result Comment: Please note revised ALT reference range effective 2017. LAB L501.4600 0.20-1.00 mg/dL Normal T BILI 0.40 LAB L501.5300 136-145 mmol/L Normal NA 141 LAB L501.5600 3.5-5.1 mmol/L Normal K 3.7 LAB L501.5900 98-107 mmol/L Normal CL 105 LAB L501.6100 21.0-32.0 mmol/L Normal CO2 29.0 LAB L501.6200 5-15 Normal GAP 7 Performed By: #### L500.4050, L501.4010 #### [facility] [address] [place], [place], [address] TROPONIN-I Collected: 07/24/2017 Status: F Source: [place] 9:45 AM [facility] REPOSITORY Order Comment: 'TROP' Serial specimen #1, #2, #3, or #4: 1 TYPE CODE TESTS RESULT OUT OF RANGE REFERENCE UNITS LAB L501.4010 <0.06 ng/mL Normal < 0.02 TROPONIN-I Result Comment: TROPONIN-I EXPECTED VALUES <0.05 NEGATIVE 0.06 - 0.59 AT RISK OF AL > OR = 0.60 SUGGEST AL Performed By: #### L500.4050, L501.4010 #### [facility] [address] [facility] [place], [place], [address] URINALYSIS, COMPLETE Collected: 07/24/2017 Status: F Source: [place] 8:35 AM [facility] REPOSITORY Order Comment: Order Date: 07/24/17 Has pt arrived? Y How was Urine Obtained? CLEAN CATCH TYPE CODE TESTS RESULT OUT OF RANGE REFERENCE UNITS LAB L400.3000 Yellow COLOR Normal Yellow LAB L400.3050 Clear Normal CLARITY Sl. Cloudy LAB L400.3200 Normal mg/dl Normal GLUCOSE, UR Normal LAB L400.3300 Negative mg/dL Normal BILIRUBIN URINE Negative LAB L400.3400 Negative mg/dl Normal KETONE UR Negative LAB L400.3465 1.002-1.030 Normal SP.GR. DIPSTX 1.015 LAB L400.3550 5.0 - 8.0 pH UR Normal 6.0 LAB L400.3600 Negative mg/dl High PROT DIPSTX 100 LAB L400.3700 Normal mg/dl Normal UROBILI Normal LAB L400.3750 Negative Normal NITRITE UR Negative LAB L400.3780 Negative /ul High OCCULT BLOOD-UR 150 LAB L400.3800 Negative /ul High LEUK ESTERASE 500 LAB L400.4050 0-5 /hpf WBC Normal >100 SEEN LAB L400.4100 0-5 /hpf Normal RBC-UA 0-5 SEEN LAB L400.4150 0-5 /hpf SQUAM Normal EPI 0-5 SEEN LAB L400.4300 None Seen /hpf 0 Normal BACTERIA SEEN LAB L400.4350 <or=2+ /hpf 0 Normal MUCUS, URINE SEEN Performed By: #### L400.0001 #### [facility] [address] [place], [address] CHEST 1 VIEW Observed: 07/24/2017 Status: F Source: [place] (PORTABLE) 8:15 AM [facility] REPOSITORY [facility] Imaging Services [address] [place] [address] Chest 1 View (Portable) MR#: [id number] Acct: [id number] Name: DAVID LOUIS Rep #: [id number] : 1940 M 76 From: Seymour Shelley MD PCP: Wili Nelson DO Status: PRE ER Study: Chest 1 View (Portable) Date of Exam: 07/24/17 Exam# [id number] Ordering Dr: Matty Cosme MD STUDY: X-RAY CHEST REASON FOR EXAM: Male, 76 years old. Headaches and confusion. TECHNIQUE: Single AP portable view of the chest. COMPARISON: Comparison is made with prior study dated February 07, 2017. FINDINGS: EKG electrodes are seen. The lungs are clear and expanded. There is no demonstrated pleural abnormality. There is moderate cardiac enlargement. Normal mediastinum and denys. Normal visualized pulmonary arteries. There is atherosclerotic tortuosity of the aortic arch and descending thoracic aorta. Normal visualized thoracic spine. Normal visualized ribs, clavicles, and shoulders. Hiatal hernia. RAD/Chest 1 View (Portable) IMPRESSION: Cardiomegaly. Electronically Signed: Seymour Shelley MD at 8:49 EST Tel [phone], Service support , CC: Matty Cosme MD; Wili Nelson DO Lighting Engineer: Signed BRAIN/HEAD WITHOUT Observed: 07/24/2017 Status: F Source: [place] CONTRAST 8:15 AM [facility] REPOSITORY [facility] Imaging Services [address] [place] [address] Brain/Head without Contrast MR#: [id number] Acct: [id number] Name: DAVID LOUIS Rep #: [id number] : 1940 M 76 From: Seymour Shelley MD PCP: Wili Nelson DO Status: REG ER Study: Brain/Head without Contrast Date of Exam: 07/24/17 Exam# [id number] Ordering Dr: Matty Cosme MD STUDY: CT BRAIN WITHOUT CONTRAST REASON FOR EXAM: Male, 76 years old. Altered mental status. RADIATION DOSAGE (If Supplied By Facility): CTDIvol = ( 44.99 ) mGy, DLP = ( 812.98 ) mGycm TECHNIQUE: Transaxial CT imaging of the brain was performed without administration of intravenous contrast material. Individualized dose optimization techniques were used for this CT. COMPARISON: Comparison is made with prior study dated June 13, 2016. FINDINGS: Normal soft tissue structures. Normal calvarium. There is moderate cerebral atrophy with widening of the extra- axial spaces and ventricular dilatation. There are areas of decreased attenuation within the white matter tracts of the supratentorial brain, consistent with microvascular disease changes. Normal basal ganglia and thalami. Normal brainstem. There is mild cerebellar atrophy. Once again, there is a cavum septum lucidum. This is a normal anatomical variant. There is no intracranial hemorrhage. There are no findings of an acute ischemic infarction. Atherosclerotic calcification of the vertebral arteries and cavernous portions of the internal carotid arteries bilaterally. Normal visualized paranasal sinuses. CT/Brain/Head without Contrast IMPRESSION: Chronic involutional changes of the brain. Electronically Signed: Seymour Shelley MD at 9:37 EST Tel [phone], Service support , CC: Matty Cosme MD; Wili Nelson DO Lighting Engineer: Signed ALLERGIES ALLERGIES DATE TYPE / NAME / CODE REACTION SEVERITY SOURCE CODE 07/08/2018 Drug MARGIE Unknown Unknown [place] Allergy/41 Inhibitors/[id number] [facility] 5342738([facility](RXNORM) [facility]) Repository 07/08/2018 Drug Quinolones/N541857 Anaphylaxis Unknown [place] Allergy/41 668(RXNORM) Community 4911069([facility]) Repository 07/08/2018 Drug lisinopril/F751734 Shortness of Unknown [place] Allergy/41 658(RXNORM) breath Community 3092482([facility]) Repository 07/08/2018 Drug ipodate/[id number] Shortness of Unknown [place] Allergy/41 (RXNORM) breath [facility] 0717216([facility]) Repository 07/08/2018 Drug ofloxacin/[id number] Unknown Unknown [place] Allergy/41 63(RXNORM) Community 4723645([facility]) Repository 07/08/2018 Drug cefepime/[id number] Other Unknown Patricia Allergy/41 4(RXNORM) Community 1159848([facility]) Repository 07/08/2018 Drug levofloxacin/F0060 Anaphylaxis Unknown [place] Allergy/41 50677(RXNORM) Community 4755320( [facility]) Repository 12/26/2008 DRUG LEVOFLOXACIN ANAPHYLAXIS High [address] 8167475( Repository OMED CT) 04/03/2005 DRUG OFLOXACIN [address] 4853663( Repository OMED CT) 04/03/2005 DRUG IPODATE SODIUM [address] 4928536( Repository OMED CT) 04/03/2005 DRUG LISINOPRIL [address] 8555815( Repository OMED CT) ENCOUNTERS ENCOUNTERS ADMIT/DISCHARGE ACCOUNT ADMITTING ENCOUNTER LOCATION SOURCE NUMBER CLASS 07/08/2018 [id number] Ambulatory [facility] ing: Repository 07/08/2018/07/10/19 [id number] [place] [facility] [place] ing:PCURoom: Repository [id number]: 1 07/08/2018 [id number] [place], Ambulatory BMSBuilding:B Patriciazulma Song MS.[facility] Repository 07/08/2018 [id number] [facility], Ambulatory BMSBuilding:B [place] Repository 07/08/2018 [id number] [facility], Ambulatory BMSBuilding:B [place] Moren[place] MS.[facility] Repository 06/30/2018/06/30/19 [id number] Ambulatory BMSBuilding:B Patricia [address] MS[facility] Repository 06/23/2018/06/23/19 [id number] Ambulatory BMSBuilding:B Patricia [address] MS[facility] Repository 06/16/2018/06/16/20 [id number] Ambulatory BMSBuilding:B Patricia 18 MS.[facility] Repository 06/07/2018 [id number] Ambulatory [facility] ing: Repository 06/01/2018 [id number] Ambulatory BMSBuilding:B Patricia MS.[facility] Repository 05/26/2018/05/26/20 [id number] Ambulatory BMSBuilding:B Patricia [address] MS[facility] Repository 05/05/2018/05/05/20 [id number] Ambulatory BMSBuilding:B [place] 18 MS.[facility] Repository 05/04/2018/05/04/20 [id number] Ambulatory BMSBuilding:B [place] [address] [facility] Repository 04/02/2018 [id number] Ambulatory [facility] ing:LAB.FUTUR Repository E 04/01/2018 [id number] Ambulatory [facility] ing:BFHLAB Repository 03/31/2018/03/31/20 [id number] Ambulatory BMSBuilding:B [place] [address] MS[facility] Repository 03/23/2018/03/23/20 [id number] Ambulatory BMSBuilding:B [place] [address] [facility] Repository 03/23/2018/03/23/20 [id number] Ambulatory BMSBuilding:B [place] [address] [facility] Repository 03/12/2018 [id number] Ambulatory BMSBuilding:W [place] [facility] Repository 03/11/2018/03/15/20 [id number] [place], Inpatient [place] [facility] ing:PCURoom: Repository [id number]: 1 03/11/2018 [id number] [place], Ambulatory BMSBuilding:B Patricia Duncan MS.[facility] Repository 03/11/2018 [id number] [place], Ambulatory BMSBuilding:B [place] Duncan MS.[facility] Repository 03/11/2018 [id number] [place], Ambulatory BMSBuilding:B Patricia Duncan MS.[facility] Repository 03/11/2018 [id number] [place], Ambulatory BMSBuilding:B Patricia Duncan MS.[facility] Repository 03/11/2018 [id number] [place], Ambulatory BMSBuilding:B Patricia Duncan MS.[facility] Repository 03/11/2018 [id number] [place], Ambulatory BMSBuilding:B Patricia Duncan MS.[facility] Repository 03/11/2018 [id number] [facility], Ambulatory BMSBuilding:Ledy Song MS.[facility] Repository 03/11/2018 [id number] [facility], Ambulatory BMSBuilding:Ledy Song MS.CF.[facility] Repository 03/11/2018 [id number] [facility], Ambulatory BMSBuilding:Ledy Song MS.[facility] Repository 03/11/2018/03/15/20 [id number] Ambulatory BMSBuilding:W Patricia 18 [facility] Repository 03/11/2018/03/12/20 [id number] Ambulatory [address] Repository 02/08/2018 [id number] Ambulatory [facility] ing:SL Repository 02/08/2018/02/09/20 [id number] Ambulatory BMSBuilding:Ledy Gomez 18 MS.[facility] Repository 02/04/2018 [id number] Ambulatory BMSBuilding:Ledy Gomez MS.[facility] Repository 01/22/2018 [id number] Ambulatory [facility] ing:BFHLAB Repository 12/09/2017 [id number] Ambulatory [facility] ing:BFHLAB Repository 12/03/2017/12/05/19 [id number] Ambulatory [address] Repository 12/01/2017 [id number] Ambulatory [facility] ing:BFHLAB Repository 11/14/2017/11/20/19 [id number] White, Kathy Inpatient [address] ing:GY0Dixx: Repository RE978Qzq: 1 11/14/2017 [id number] White, Kathy Ambulatory BMSBuilding:Ledy Gomez MS.[facility] Repository 11/14/2017 [id number] White, Kathy Ambulatory BMSBuilding:Ledy Gomez MS.[facility] Repository 11/14/2017 [id number] White, Kathy Ambulatory BMSBuilding:B Patricia RIOS.[facility] Repository 11/14/2017 [id number] White, Kathy Ambulatory BMSBuilding:Ledy Gomez MS.[facility] Repository 11/14/2017 [id number] Kathy Ambulatory BMSBuilding:B Patricia [facility] Repository 11/14/2017 [id number] , Kathy Ambulatory BMSBuilding:Ledy Gomez MS.[facility] Repository 11/05/2017/11/06/19 [id number] Emergency [address] ing:ED Repository 11/05/2017 [id number] Ambulatory BMSBuilding:Ledy Gomez [facility] Repository 10/08/2017 [id number] Ambulatory [facility] ing:PSN Repository 10/08/2017 [id number] Ambulatory BMSBuilding:W [facility] Repository 09/22/2017 [id number] Ambulatory [facility] ing:PSN Repository 09/22/2017 [id number] Ambulatory BMSBuilding:W [facility] Repository 09/11/2017/09/12/19 [id number] Ambulatory BMSBuilding:B Patricia 18 [facility] Repository 08/24/2017/09/01/19 [id number] Ambulatory [address] Repository 08/13/2017 [id number] Ambulatory [facility] ing:SL Repository 08/06/2017/08/13/19 [id number] José Manuel Hernandez Chi Inpatient [place] Patricia 18 Encounter [facility] ing:TCURoom: Repository GMR72Vqs: 1 08/04/2017/08/06/19 [id number] [place], Inpatient [place] 18 Ghasem Encounter [facility] ing:PJ6Eztt: Repository OA783Brw: 1 08/04/2017 [id number] [place], Ambulatory BMSBuilding:Ledy Aleman [facility] Repository 08/04/2017 [id number] [place], Ambulatory BMSBuilding:W [place] Ghasem [facility] Repository 08/04/2017 [id number] [place], Ambulatory BMSBuilding:Ledy Aleman MS.[facility] Repository 08/04/2017 [id number] [place], Ambulatory BMSBuilding:B Patricia Broussardm [facility] Repository 08/04/2017 [id number] [place], Ambulatory BMSBuilding:W Patricia Chouasem [facility] Repository 08/04/2017 [id number] [place], Ambulatory BMSBuilding:B Patricia Aleman MS.[facility] Repository 08/04/2017 [id number] [place], Ambulatory BMSBuilding:B Patricia Broussardm [facility] Repository 07/26/2017/07/28/19 [id number] Ambulatory BMSBuilding:W [place] 18 [facility] Repository 07/24/2017/07/28/19 [id number] Elver Clemens Inpatient [address] Hospital ing:PCURoom: Repository TAU135Xle: 1 07/24/2017 [id number] Elver Clemens Ambulatory BMSBuilding:B [place] [facility] Repository 07/24/2017 [id number] Elver Clemens Ambulatory BMSBuilding:B [place] [facility] Repository 07/24/2017 [id number] Elver Clemens Ambulatory BMSBuilding:B Patricia MS.[facility] Repository 07/24/2017 [id number] Elver Clemens Ambulatory BMSBuilding:B [place] [facility] Repository 07/24/2017 [id number] Elver Clemens Ambulatory BMSBuilding:B [place] MS.CF.[facility] Repository 07/24/2017 [id number] Elver Clemens Ambulatory BMSBuilding:B [place] [facility] Repository 07/24/2017 [id number] Elver Clemens Ambulatory BMSBuilding:W [facility] Repository 07/24/2017 [id number] Elver Clemens Ambulatory BMSBuilding:B [place] MS.[facility] Repository 07/24/2017 [id number] Elver Clemens Ambulatory BMSBuilding:W [facility] Repository 07/24/2017 [id number] Elver Clemens Ambulatory BMSBuilding:B [place] MS.CF.PMW [facility] Repository 07/24/2017 [id number] Elver Clemens Ambulatory BMSBuilding:B [place] MS.WIP [facility] Repository PAYERS PAYERS ENCOUNTER GUARANTOR PAYER SUBSCRIBER SOURCE 07/08/2018 DAVID Guy Primary DAVID Gomez [id number] Insurance:MEDICARE CROSBYDOB: [facility] [address] PART A [facility] [id number] [place] Number: Repository [id number]: 419 [id number] [phone] () Date:2018-06-23 07/08/2018 Secondary DAVID Guy [place] Insurance:[facility] CROSBYDOB: [facility] CARE [address] [place] [address] [id number] Hospital Number: Repository [id number] Date:6456-30-60[address]XMFQU, [place] [address]CB: 07/08/2018 Tertiary NOT GIVENUNK [place] Insurance:SELF PAY [facility] Number: Effective Repository Date:2018-06-23 07/08/2018 DAVID Guy Primary DAVID Abdioster [id number] Insurance:MEDICARE CROSBYDOB: [facility] [id number] Number: Repository [id number]: 419 [id number] [phone] () Date:2018-07-08 07/08/2018 Secondary DAVID Guy [place] Insurance:[facility] CROSBYDOB: [address] [id number] Hospital Number: Repository [id number] Date:2814-74-75TG [address]BDLDZTY, [place] [address]QL: 07/08/2018 Tertiary NOT GIVENUNK [place] Insurance:SELF PAY [facility] Number: Effective Repository Date:2018-07-08 07/08/2018 DAVID L Primary DAVID Abdioster [id number] Insurance:MEDICARE CROSBYDOB: [facility] [place] [facility] [id number] [facility] [place] Number: Repository [id number]: 419 [id number] [phone] () Date:2018-07-08 07/08/2018 Secondary DAVID L [place] Insurance:UNITED TH CROSBYDOB: Community CARE [address] [place] [address] [id number] Hospital Number: Repository [id number] Date:1602-81-21JN [address]UYJV[address], [place] [address]CW: 07/08/2018 Tertiary NOT GIVENUNK [place] Insurance:SELF PAY [facility] Number: Effective Repository Date:2018-07-08 07/08/2018 DAVID L Primary DAVID L Patricia [id number] Insurance:MEDICARE CROSBYDOB: Community PERSON [address] PART A [facility] [id number] Care [facility] [place] Number: Repository [id number]: 419 [id number] [phone] () Date:2018-07-08 07/08/2018 Secondary DAVID L [place] Insurance:[facility] CROSBYDOB: Community CARE [id number] Hospital Number: Repository [id number] Date:6741-46-33FS [address]UIPGVEQ, [place] [address]LL: 07/08/2018 Tertiary NOT GIVENUNK [place] Insurance:SELF PAY [facility] Number: Effective Repository Date:2018-07-08 07/08/2018 DAVID L Primary DAVID L [place] [id number] Insurance:MEDICARE CROSBYDOB: Community PERSON [address] PART A [facility] [id number] Care [facility] [place] Number: Repository [address]Stn: 419 [id number] [phone] () Date:2018-07-08 07/08/2018 Secondary DAVID L [place] Insurance:[facility] CROSBYDOB: Community CARE [id number] Hospital Number: Repository [id number] Date:9330-05-09WR [address]QXVUL, [place] [address]JJ: 07/08/2018 Tertiary NOT GIVENUNK [place] Insurance:SELF PAY [facility] Number: Effective Repository Date:2018-07-08 06/30/2018 DAVID Guy Primary DAVID Guy [place] [id number] Insurance:MEDICARE CROSBYDOB: Community PERSON [address] PART A [facility] [id number] [facility] [place] Number[place] Repository [id number]: 419 [id number] [phone] () Date:2018-03-23 06/30/2018 Secondary DAVID L [place] Insurance:[facility] CROSBYDOB: Community CARE [address] [place] [address] [id number] Hospital Number: Repository [id number] Date:1221-80-02ID [facility] [address]489[place]FRY[place], [place] [address]IL: 06/30/2018 Tertiary NOT GIVENUNK [place] Insurance:SELF PAY [facility] Hospital Number: Effective Repository Date:2018-06-30 06/23/2018 DAVID Guy Primary DAVID Guy Patricia [id number] Insurance:MEDICARE CROSBYDOB: [facility] [address] PART A [facility] [id number] Care [facility] [place] Number: Repository [id number]: 419 [id number] [phone] () Date:2018-06-23 06/23/2018 Secondary DAVID L [place] Insurance:[facility] CROSBYDOB: Community CARE [address] [place] [address] [id number] Hospital Number: Repository [id number] Date:8730-02-65WT [address]EMSLSWT, [place] [address]UI: 06/23/2018 Tertiary NOT GIVENUNK [place] Insurance:SELF PAY [facility] Hospital Number: Effective Repository Date:2018-06-23 06/16/2018 DAVID L Primary DAVID Guy [place] [id number] Insurance:MEDICARE CROSBYDOB: [facility] PART A [facility] [id number] Care [facility] [place] Number: Repository [id number]: 419 [id number] [phone] () Date:2018-05-05 06/16/2018 Secondary DAVID Guy [place] Insurance:[facility] CROSBYDOB: Community CARE [address] [place] [address] [id number] Hospital Number: Repository [id number] Date:6640-58-03QM [facility] 941019BSTCMGP, [place] [address]DX: 06/16/2018 Tertiary NOT GIVENUNK Patricia Insurance:SELF PAY [facility] Number: Effective Repository Date:2018-06-14 06/07/2018 DAVID L Primary DAVID Gomez [id number] Insurance:MEDICARE CROSBYDOB: [facility] PART A [facility] [id number] [facility] [place] Number[place] Repository [id number]: 419 [id number] [phone] () Date:2018-05-06 06/07/2018 Secondary DAVID L [place] Insurance:[facility] CROSBYDOB: [facility] CARE [address] [place] [address] [id number] Hospital Number: Repository [id number] Date:7937-87-75LD [address]JJVPWTY, [place] [address]NP: 06/07/2018 Tertiary NOT GIVENUNK [place] Insurance:SELF PAY [facility] Number: Effective Repository Date:2018-05-06 06/01/2018 DAVID L Primary DAVID Gomez [id number] Insurance:MEDICARE CROSBYDOB: [facility] [id number] Care [facility] [place] Number[place] Repository [id number]: 419 [id number] [phone] () Date:2018-06-01 06/01/2018 Secondary DAVID Guy [place] Insurance:[facility] CROSBYDOB: [facility] CARE [address] [place] [address] [id number] Hospital Number: Repository [id number] Date:5421-72-11SM [facility] 906744BUWQMOB, [place] [address]PQ: 06/01/2018 Tertiary NOT GIVENUNK [place] Insurance:SELF PAY [facility] Number: Effective Repository Date:2018-06-01 05/26/2018 DAVID Guy Primary DAVID Guy [place] [id number] Insurance:MEDICARE CROSBYDOB: Community PERSON [address]WE[address] PART A [id number] [place] Number: Repository [id number]: 419 [id number] [phone] () Date:2018-05-26 05/26/2018 Secondary DAVID L [place] Insurance:[facility] CROSBYDOB: Community CARE [address] [place] [address] [id number] Hospital Number: Repository [id number] Date:8831-46-52DB [address]ZYCRULQ, [place] [address]TF: 05/26/2018 Tertiary NOT GIVENUNK [place] Insurance:SELF PAY [facility] Hospital Number: Effective Repository Date:2018-05-26 05/05/2018 DAVID Guy Primary DAVID Guy [place] [id number] Insurance:MEDICARE CROSBYDOB: [facility] PART A [facility] [id number] Memorial Hospital [place] Number: Repository [id number]: 419 [id number] [phone] () Date:2018-02-08 05/05/2018 Secondary DAVID L [place] Insurance:[facility] CROSBYDOB: Community CARE [id number] Hospital Number: Repository [id number] Date:2378-84-98NR [address]IYWEYCW, [place] [address]OF: 05/05/2018 Tertiary NOT GIVENUNK [place] Insurance:SELF PAY [facility] Number: Effective Repository Date:2018-04-28 05/04/2018 DAVID Guy Primary DAVID Guy [place] [id number] Insurance:MEDICARE CROSBYDOB: Community PERSON [address] PART A [facility] [id number] Care Hospital of [facility] [place] Number[place] Repository [id number]: 419 [id number] [phone] () Date:2018-05-04 05/04/2018 Secondary DAVID Guy [place] Insurance:[facility] CROSBYDOB: Community CARE [id number] Hospital Number: Repository [id number] Date:7701-01-68YZ [address]YMCQPSU, [place] [address]IH: 05/04/2018 Tertiary NOT GIVENUNK [place] Insurance:SELF PAY [facility] Number: Effective Repository Date:2018-05-04 04/02/2018 DAVID L Primary DAVID Guy [place] [id number] Insurance:MEDICARE CROSBYDOB: [facility] RDWEST PART A [facility] [id number], [place] Number: Repository [id number]: 419 [id number] [phone] () Date:2018-04-02 04/02/2018 Secondary DAVID Guy [place] Insurance:[facility] CROSBYDOB: [facility] CARE [id number] Hospital Number: Repository [id number] Date:3337-20-79HP [address]KHEIOUO, [place] [address]HT: 04/02/2018 Tertiary NOT GIVENUNK [place] Insurance:SELF PAY [facility] Hospital Number: Effective Repository Date:2018-04-02 04/01/2018 DAVID L Primary DAVID Guy [place] [id number] Insurance:MEDICARE CROSBYDOB: [facility] RDWEST PART A [facility] [id number], [place] Number: Repository 58659Bob: 419 [id number] [phone] () Date:2018-04-01 04/01/2018 Secondary DAVID L [place] Insurance:[facility] CROSBYDOB: [facility] CARE [id number] Hospital Number: Repository [id number] Date:1883-69-56LF [address]BQTYQYF, [place] [address]CI: 04/01/2018 Tertiary NOT GIVENUNK [place] Insurance:SELF PAY [facility] Number: Effective Repository Date:2018-04-01 03/31/2018 DAVID Guy Primary DAVID Guy [place] [id number] Insurance:MEDICARE CROSBYDOB: Community PERSON [address] PART A [facility] [id number] Care [facility] of [place] Repository [id number]: 419 [id number] [phone] () Date:2018-03-31 03/31/2018 Secondary DAVID L [place] Insurance:[facility] CROSBYDOB: Community CARE [address] [place] [address] [id number] Hospital Number: Repository [id number] Date:6015-66-20HG [address]NHDNEKV, [place] [address]HC: 03/31/2018 Tertiary NOT GIVENUNK [place] Insurance:SELF PAY [facility] Number: Effective Repository Date:2018-03-31 03/23/2018 DAVID Guy Primary DAVID Guy [place] [id number] Insurance:MEDICARE CROSBYDOB: [facility] PART A [facility] [id number] Care Hospital of [place] Number: Repository 39365Krz: 419 [id number] [phone] () Date:2018-03-23 03/23/2018 Secondary DAVID Guy [place] Insurance:[facility] CROSBYDOB: Community CARE [address] [place] [address] [id number] Hospital Number: Repository [id number] Date:1113-58-20EO [facility] 121530HEGLJXP, [place] [address]JN: 03/23/2018 Tertiary NOT GIVENUNK [place] Insurance:SELF PAY [facility] Number: Effective Repository Date:2018-03-23 03/23/2018 DAVID L Primary DAVID Guy [place] [id number] Insurance:MEDICARE CROSBYDOB: Community PERSON [address] PART A [facility] [id number] Care Hospital of [place]: Repository [id number]: 419 [id number] [phone] () Date:2018-03-22 03/23/2018 Secondary DAVID L [place] Insurance:[facility] CROSBYDOB: Community CARE [id number] Hospital Number: Repository [id number] Date:5678-29-87WN [address]UGJWNBD, [place] [address]TI: 03/23/2018 Tertiary NOT GIVENUNK [place] Insurance:SELF PAY [facility] Number: Effective Repository Date:2018-03-23 03/12/2018 DAVID Guy Primary DAVID Guy [place] [id number] Insurance:MEDICARE CROSBYDOB: Community [facility] [id number] Care [facility] [place] Number: Repository [id number]: 419 [id number] [phone] () Date:2018-03-11 03/12/2018 Secondary DAVID L [place] Insurance:[facility] CROSBYDOB: [facility] CARE [id number] Hospital Number: Repository [id number] Date:3112-02-27MP [address]SEPACXW, [place] [address]BV: 03/12/2018 Tertiary NOT GIVENUNK [place] Insurance:SELF PAY [facility] Number: Effective Repository Date:2018-03-12 03/11/2018 DAVID Guy Primary DAVID Abdioster [id number] Insurance:MEDICARE CROSBYDOB: [facility] [id number] Care [facility] of [place] Number[place] Repository [id number]: 419 [id number] [phone] () Date:2018-03-11 03/11/2018 Secondary DAVID L [place] Insurance:[facility] CROSBYDOB: [facility] CARE [address] [place] [address] [id number] Hospital Number: Repository [id number] Date:6785-19-20OD [address]QFQLEFS, [place] [address]UC: 03/11/2018 Tertiary NOT GIVENUNK [place] Insurance:SELF PAY [facility] Number: Effective Repository Date:2018-03-11 03/11/2018 DAVID L Primary DAVID Guy [place] [id number] Insurance:MEDICARE CROSBYDOB: Community PERSON [address] PART A [facility] [id number] Memorial [facility] [place] Number: Repository [id number]: 419 [id number] [phone] () Date:2018-03-11 03/11/2018 Secondary DAVID L [place] Insurance:UNITED TH CROSBYDOB: [facility] CARE [address] [place] [address] [id number] Hospital Number: Repository [id number] Date:1667-56-30RC [address]BALMDFE, [place] [address]WJ: 03/11/2018 Tertiary NOT GIVENUNK [place] Insurance:SELF PAY [facility] Number: Effective Repository Date:2018-03-11 03/11/2018 DAVID L Primary DAVID L [place] [id number] Insurance:MEDICARE CROSBYDOB: [facility] PART A [facility] [id number] Care [facility] of [place]: Repository [id number]: 419 [id number] [phone] () Date:2018-03-11 03/11/2018 Secondary DAVID L [place] Insurance:[facility] CROSBYDOB: [facility] CARE [id number] Hospital Number: Repository [id number] Date:1209-64-18ZC [address]NJBFREO, [place] [address]KB: 03/11/2018 Tertiary NOT GIVENUNK [place] Insurance:SELF PAY [facility] Number: Effective Repository Date:2018-03-11 03/11/2018 DAVID L Primary DAVID L [place] [id number] Insurance:MEDICARE CROSBYDOB: [facility] PERSON [address]WE[address] PART A [facility] [id number] Care [facility] of [place]: Repository [id number]: 419 [id number] [phone] () Date:2018-03-11 03/11/2018 Secondary DAVID L [place] Insurance:UNITED TH CROSBYDOB: [facility] CARE [id number] Hospital Number: Repository [id number] Date:2308-48-36UM [address]OBMBMFO, [place] [address]AJ: 03/11/2018 Tertiary NOT GIVENUNK [place] Insurance:SELF PAY [facility] Number: Effective Repository Date:2018-03-11 03/11/2018 DAVID Guy Primary DAVID Guy [place] [id number] Insurance:MEDICARE CROSBYDOB: Community PERSON [address] PART A [facility] [id number] Care Hospital of [place]: Repository [id number]: 419 [id number] [phone] () Date:2018-03-11 03/11/2018 Secondary DAVID L [place] Insurance:[facility] CROSBYDOB: Community CARE [address] [place] [address] [id number] Hospital Number: Repository [id number] Date:3487-43-64NS [address]LGVUWIR, [place] [address]AZ: 03/11/2018 Tertiary NOT GIVENUNK [place] Insurance:SELF PAY [facility] Number: Effective Repository Date:2018-03-11 03/11/2018 DAVID Guy Primary DAVID Guy [place] [id number] Insurance:MEDICARE CROSBYDOB: Community PERSON [address] PART A [facility] [id number] Care Hospital of [place] Repository [id number]: 419 [id number] [phone] () Date:2018-03-11 03/11/2018 Secondary DAVID L [place] Insurance:[employer] CROSBYDOB: Community CARE [id number] Hospital Number: Repository [id number] Date:6829-96-09RR [facility] 991525WVBCYVF, [place] [address]RL: 03/11/2018 Tertiary NOT GIVENUNK [place] Insurance:SELF PAY [facility] Number: Effective Repository Date:2018-03-11 03/11/2018 DAVID L Primary DAVID L [place] [id number] Insurance:MEDICARE CROSBYDOB: Community PERSON [address] PART A [facility] [id number] Care Hospital of [place]: Repository [id number]: 419 [id number] [phone] () Date:2018-03-11 03/11/2018 Secondary DAVID L [place] Insurance:[facility] CROSBYDOB: [facility] CARE [address] [place] [address] [id number] Hospital Number: Repository [id number] Date:3549-01-58BK [address]FTHRBXC, [place] [address]LJ: 03/11/2018 Tertiary NOT GIVENUNK [place] Insurance:SELF PAY [facility] Number: Effective Repository Date:2018-03-11 03/11/2018 DAVID L Primary DAVID L [place] [id number] Insurance:MEDICARE CROSBYDOB: [facility] PART A [facility] [id number], [place] Number: Repository [id number]: 419 [id number] [phone] () Date:2018-03-11 03/11/2018 Secondary DAVID L [place] Insurance:[facility] CROSBYDOB: [facility] CARE [address] [place] [address] [id number] Hospital Number: Repository [id number] Date:1974-31-88BV [address]HIPTRUU, [place] [address]IP: 03/11/2018 Tertiary NOT GIVENUNK [place] Insurance:SELF PAY [facility] Number: Effective Repository Date:2018-03-11 03/11/2018 DAVID L Primary DAVID L [place] [id number] Insurance:MEDICARE CROSBYDOB: [facility] [id number], [place] Number: Repository [id number]: 419 [id number] [phone] () Date:2018-03-11 03/11/2018 Secondary DAVID L [place] Insurance:[facility] CROSBYDOB: [facility] CARE [address] [place] [address] [id number] Hospital Number: Repository [id number] Date:5071-45-71JQ [address]OWWEWGM, [place] [address]FE: 03/11/2018 Tertiary NOT GIVENUNK [place] Insurance:SELF PAY [facility] Number: Effective Repository Date:2018-03-11 03/11/2018 DAVID Guy Primary DAVID Guy [place] [id number] Insurance:MEDICARE CROSBYDOB: Community PERSON [address] PART A [facility] [id number] Care [facility] of [place]: Repository [id number]: 419 [id number] [phone] () Date:2018-03-11 03/11/2018 Secondary DAVID L [place] Insurance:UNITED TH CROSBYDOB: Community CARE [address] [place] [address] [id number] Hospital Number: Repository [id number] Date:5242-74-16JD [address]RYWIVLZ, [place] [address]GG: 03/11/2018 Tertiary NOT GIVENUNK [place] Insurance:SELF PAY [facility] Number: Effective Repository Date:2018-03-11 03/11/2018 DAVID L Primary DAVID Guy [place] [id number] Insurance:MEDICARE CROSBYDOB: Community PERSON [address] PART A [facility] [id number] Care Hospital of [place] Number: Repository [id number]: 419 [id number] [phone] () Date:2018-03-11 03/11/2018 Secondary DAVID L [place] Insurance:UNITED TH CROSBYDOB: Community CARE [address] [place] [address] [id number] Hospital Number: Repository [id number] Date:8298-76-41ZA [address]FEQMBBR, [place] [address]VZ: 03/11/2018 Tertiary NOT GIVENUNK [place] Insurance:SELF PAY [facility] Hospital Number: Effective Repository Date:2018-03-11 02/08/2018 DAVID L Primary DAVID Guy [place] [id number] Insurance:MEDICARE CROSBYDOB: Community PERSON [address] PART A [facility] [id number] Care [facility] [place]: [place]ository [id number]: 419 [id number] [phone] () Date:2018-02-08 02/08/2018 Secondary DAVID L [place] Insurance:[facility] CROSBYDOB: Community CARE [id number] Hospital Number: Repository [id number] Date:6389-90-36QB [address]MHTGSNJ, [place] [address]CH: 02/08/2018 Tertiary NOT GIVENUNK [place] Insurance:SELF PAY [facility] Number: Effective Repository Date:2018-02-08 02/08/2018 DAVID Guy Primary DAVID Guy [place] [id number] Insurance:MEDICARE CROSBYDOB: Community [place] [address] PART A [facility] [id number] Care Hospital of [place]: Repository [id number]: 419 [id number] [phone] () Date:2018-02-05 02/08/2018 Secondary DAVID L [place] Insurance:[facility] CROSBYDOB: Community CARE [id number] Hospital Number: Repository [id number] Date:6097-56-44OV [address]RFQVYMW, [place] [address]DG: 02/08/2018 Tertiary NOT GIVENUNK [place] Insurance:SELF PAY [facility] Hospital Number: Effective Repository Date:2018-02-05 02/04/2018 DAVID Guy Primary DAVID Guy [place] [id number] Insurance:MEDICARE CROSBYDOB: [facility] RDWEST PART A [facility] [id number] Care Hospital of [place]: Repository [id number]: 419 [id number] [phone] () Date:2018-02-01 02/04/2018 Secondary DAVID L [place] Insurance:[facility] CROSBYDOB: Community CARE [id number] Hospital Number: Repository [id number] Date:9083-43-33JM [address]FQUPWLI, [place] [address]GD: 02/04/2018 Tertiary NOT GIVENUNK [place] Insurance:SELF PAY [facility] Number: Effective Repository Date:2018-02-03 01/22/2018 DAVID L Primary DAVID Guy [place] [id number] Insurance:MEDICARE CROSBYDOB: Community PERSON [address] PART A [facility] [id number], [place] Number: Repository [id number]: 419 [id number] [phone] () Date:2018-01-22 01/22/2018 Secondary DAVID L [place] Insurance:UNITED TH CROSBYDOB: [facility] CARE [id number] Hospital Number: Repository [id number] Date:7684-45-61HY [facility] 101725VGDYSOQ, [place] [address]WV: 01/22/2018 Tertiary NOT GIVENUNK [place] Insurance:SELF PAY [facility] Number: Effective Repository Date:2018-01-22 12/09/2017 DAVID L Primary DAVID Guy [place] [id number] Insurance:MEDICARE CROSBYDOB: [facility] PART A [facility] [id number] Care [facility] [place]ository [id number]: 419 [id number] [phone] () Date:2017-12-09 12/09/2017 Secondary DAVID L [place] Insurance:UNITED TH CROSBYDOB: [facility] CARE [id number] Hospital Number: Repository [id number] Date:5187-82-67AO [facility] 854768SDVDJTT, [place] [address]XE: 12/09/2017 Tertiary NOT GIVENUNK [place] Insurance:SELF PAY [facility] Hospital Number: Effective Repository Date:2017-12-09 12/01/2017 DAIVD L Primary DAVID Guy [place] [id number] Insurance:MEDICARE CROSBYDOB: Community PERSON [address] PART A [facility] [id number], [place] Number: Repository [id number]: 419 [id number] [phone] () Date:2017-12-01 12/01/2017 Secondary DAVID L [place] Insurance:UNITED TH CROSBYDOB: [facility] CARE [id number] Hospital Number: Repository [id number] Date:8309-99-49TL [address]XOFKKOJ, [place] [address]QU: 12/01/2017 Tertiary NOT GIVENUNK [place] Insurance:SELF PAY [facility] Number: Effective Repository Date:2017-12-01 11/14/2017 DAVID Guy Primary DAVID Guy [place] [id number] Insurance:MEDICARE CROSBYDOB: [facility] PART A [facility] [id number] Care [facility] [place] Repository [id number]: 419 [id number] [phone] () Date:2017-11-14 11/14/2017 Secondary DAVID L [place] Insurance:[facility] CROSBYDOB: Community CARE [address] [place] [address] [id number] Hospital Number: Repository [id number] Date:3726-67-46GB [address]BQJIWYS, [place] [address]SC: 11/14/2017 Tertiary NOT GIVENUNK [place] Insurance:SELF PAY [facility] Hospital Number: Effective Repository Date:2017-11-14 11/14/2017 DAVID Guy Primary DAVID Guy [place] [id number] Insurance:MEDICARE CROSBYDOB: [facility] RDWEST PART A [facility] [id number] Care [facility] [place] Repository [id number]: 419 [id number] [phone] () Date:2017-11-14 11/14/2017 Secondary DAVID Guy [place] Insurance:UNITED TH CROSBYDOB: Community CARE [address] [place] [address] [id number] Hospital Number: Repository [id number] Date:6572-74-38MB [address]UFPGOFN, [place] [address]RG: 11/14/2017 Tertiary NOT GIVENUNK [place] Insurance:SELF PAY [facility] Hospital Number: Effective Repository Date:2017-11-14 11/14/2017 DAVID L Primary DAVID Guy [place] [id number] Insurance:MEDICARE CROSBYDOB: [facility] PART A [facility] [id number] Care Hospital of [place] Repository [id number]: 419 [id number] [phone] (HP) Date:2017-11-14 11/14/2017 Secondary DAVID L [place] Insurance:UNITED TH CROSBYDOB: Community CARE [address] [place] [address] [id number] Hospital Number: Repository [id number] Date:8594-31-62NV [facility] 138042UMUPRVX, [place] [address]JP: 11/14/2017 Tertiary NOT GIVENUNK [place] Insurance:SELF PAY [facility] Hospital Number: Effective Repository Date:2017-11-14 11/14/2017 DAVID L Primary DAVID L [place] [id number] Insurance:MEDICARE CROSBYDOB: [facility] PART A [facility] [id number] Care [facility] of [place] Repository [id number]: 419 [id number] [phone] () Date:2017-11-14 11/14/2017 Secondary DAVID L [place] Insurance:[facility] CROSBYDOB: Community CARE [id number] Hospital Number: Repository [id number] Date:8626-46-70AS [address]XSUJOHX, [place] [address]TU: 11/14/2017 Tertiary NOT GIVENUNK [place] Insurance:SELF PAY [facility] Hospital Number: Effective Repository Date:2017-11-14 11/14/2017 DAVID L Primary DAVID L [place] [id number] Insurance:MEDICARE CROSBYDOB: Community PERSON [address] PART A [facility] [id number] Care Hospital of [place] Repository [id number]: 419 [id number] [phone] () Date:2017-11-14 11/14/2017 Secondary DAVID L [place] Insurance:[facility] CROSBYDOB: Community CARE [address] [place] [address] [id number] Hospital Number: Repository [id number] Date:0899-85-74LU [address]CSXIKNW, [place] [address]XJ: 11/14/2017 Tertiary NOT GIVENUNK [place] Insurance:SELF PAY [facility] Number: Effective Repository Date:2017-11-14 11/14/2017 DAVID Guy Primary DAVID Guy [place] [id number] Insurance:MEDICARE CROSBYDOB: Community PERSON [address] PART A [facility] [id number] Care [facility] [place]: Repository [id number]: 419 [id number] [phone] () Date:2017-11-14 11/14/2017 Secondary DAVID L [place] Insurance:[facility] CROSBYDOB: Community CARE [address] [place] [address] [id number] Hospital Number: Repository [id number] Date:3062-81-42FD [address]BHPMHPN, [place] [address]GI: 11/14/2017 Tertiary NOT GIVENUNK [place] Insurance:SELF PAY [facility] Number: Effective Repository Date:2017-11-14 11/14/2017 DAVID Guy Primary DAVID Guy [place] [id number] Insurance:MEDICARE CROSBYDOB: Community PERSON [address] PART A [facility] [id number] [facility] Number: Repository [id number]: 419 [id number] [phone] () Date:2017-11-14 11/14/2017 Secondary DAVID Guy [place] Insurance:[employer] CROSBYDOB: Community CARE [id number] Hospital Number: Repository [id number] Date:1999-88-22VG [address]LVKYSJR, [place] [address]GN: 11/14/2017 Tertiary NOT GIVENUNK [place] Insurance:SELF PAY [facility] Effective Repository Date:2017-11-14 11/05/2017 DAVID Guy Primary DAVID Abdioster [id number] Insurance:MEDICARE CROSBYDOB: Community PERSON [address] PART A [facility] [id number] [facility] [place] Number[place] Repository [id number]: 419 [id number] [phone] () Date:2017-11-05 11/05/2017 Secondary DAVID L [place] Insurance:[facility] CROSBYDOB: Community CARE [id number] Hospital Number: Repository [id number] Date:3807-60-10YG [address]GDLIPEC, [place] [address]XR: 11/05/2017 Tertiary NOT GIVENUNK [place] Insurance:SELF PAY [facility] Number: Effective Repository Date:2017-11-05 11/05/2017 DAVID L Primary DAVID Guy Patricia [id number] Insurance:MEDICARE CROSBYDOB: Community PERSON [address] PART A [facility] [id number] Number: Repository [id number]: 419 [id number] [phone] () Date:2017-11-05 11/05/2017 Secondary DAVID L [place] Insurance:[facility] CROSBYDOB: Community CARE [id number] Hospital Number: Repository [id number] Date:9912-78-14XU [address]WJPWIZO, [place] [address]BQ: 11/05/2017 Tertiary NOT GIVENUNK [place] Insurance:SELF PAY [facility] Hospital Number: Effective Repository Date:2017-11-05 10/08/2017 DAVID Guy Primary DAVID Abdioster [id number] Insurance:MEDICARE CROSBYDOB: [facility] [address] PART A [facility] [id number] [place] Number[facility] Repository [id number]: 419 [id number] [phone] () Date:2017-09-11 10/08/2017 Secondary DAVID L [place] Insurance:[facility] CROSBYDOB: Community CARE [id number] Hospital Number: Repository [id number] Date:9118-51-47LP [address]XJOAZUA, [place] [address]ZQ: 10/08/2017 Tertiary NOT GIVENUNK [place] Insurance:SELF PAY [facility] Hospital Number: Effective Repository Date:2017-09-11 10/08/2017 DAVID Guy Primary DAVID Guy [place] [id number] Insurance:MEDICARE CROSBYDOB: Community PERSON [address] PART A [facility] [id number] [facility] [place] Repository [id number]: 419 [id number] [phone] () Date:2017-09-11 10/08/2017 Secondary DAVID L [place] Insurance:UNITED TH CROSBYDOB: Community CARE [id number] Hospital Number: Repository [id number] Date:6249-55-54QD [address]ZTILOAZ, [place] [address]EA: 10/08/2017 Tertiary NOT GIVENUNK [place] Insurance:SELF PAY [facility] Hospital Number: Effective Repository Date:2017-10-08 09/22/2017 DAVID L Primary DAVID Guy Patricia [id number] Insurance:MEDICARE CROSBYDOB: [facility] [address] PART A [facility] [id number] [facility] [place]ository [id number]: 419 [id number] [phone] () Date:2017-09-11 09/22/2017 Secondary DAVID L [place] Insurance:[facility] CROSBYDOB: [facility] CARE [id number] Hospital Number: Repository [id number] Date:0360-62-03BF [address]GYWXTVM, [place] [address]AW: 09/22/2017 Tertiary NOT GIVENUNK [place] Insurance:SELF PAY [facility] Hospital Number: Effective Repository Date:2017-09-11 09/22/2017 DAVID L Primary DAVID L [place] [id number] Insurance:MEDICARE CROSBYDOB: Community PERSON [address] PART A [facility] [id number] [facility] [place] Repository 50835Iyu: 419 [id number] [phone] () Date:2017-09-11 09/22/2017 Secondary DAVID L [place] Insurance:UNITED TH CROSBYDOB: Community CARE [id number] Hospital Number: Repository [id number] Date:3045-98-10PT [address]QDLCRZC, [place] [address]FZ: 09/22/2017 Tertiary NOT GIVENUNK [place] Insurance:SELF PAY [facility] Number: Effective Repository Date:2017-09-22 09/11/2017 DAVID L Primary DAVID Guy Patricia [id number] Insurance:MEDICARE CROSBYDOB: Community PERSON [address] PART A [facility] [id number] Care [facility] [place] Repository [id number]: 419 [id number] [phone] () Date:2017-09-03 09/11/2017 Secondary DAVID L [place] Insurance:[employer] [facility] CROSBYDOB: Community CARE [id number] Hospital Number: Repository [id number] Date:7049-61-85JQ [address]QIYBAFY, [place] [address]RU: 09/11/2017 Tertiary NOT GIVENUNK [place] Insurance:SELF PAY [facility] Number: Effective Repository Date:2017-09-09 08/13/2017 David L Primary DAVID Guy Patricia [id number] Insurance:MEDICARE CROSBYDOB: Community Person [address] PART A [facility] [id number] [place]ository [id number]: 419 [id number] [phone] () Date:2017-08-04 08/13/2017 Secondary DAVID L [place] Insurance:[employer] CROSBYDOB: Community CARE [id number] Hospital Number: Repository [id number] Date:1653-56-22JC [address]JTXVOIM, [place] [address]QD: 08/13/2017 Tertiary NOT GIVENUNK [place] Insurance:SELF PAY [facility] Number: Effective Repository Date:2017-08-04 08/06/2017 David L Primary DAVID L [place] [id number] Insurance:MEDICARE CROSBYDOB: Community Person [address] PART A [facility] [id number] [place] [facility] Repository 38298Vra: 419 [id number] [phone] () Date:2017-08-06 08/06/2017 Secondary DAVID L [place] Insurance:[employer] CROSBYDOB: Community CARE [id number] Hospital Number: Repository [id number] Date:8378-94-27PD [facility] 334120OTQMFMW, [place] [address]IZ: 08/06/2017 Tertiary NOT GIVENUNK [place] Insurance:SELF PAY [facility] Number: Effective Repository Date:2017-08-06 08/04/2017 David L Primary DAVID L [place] [id number] Insurance:MEDICARE CROSBYDOB: Community Person [address] PART A [facility] [id number] [facility] [place] Number: Repository 19482Iga: 419 [id number] [phone] () Date:2017-08-04 08/04/2017 Secondary DAVID L [place] Insurance:[employer] CROSBYDOB: Community CARE [id number] Hospital Number: Repository [id number] Date:1008-71-58TW [address]QTHTYUJ, [place] [address]EI: 08/04/2017 Tertiary NOT GIVENUNK [place] Insurance:SELF PAY [facility] Number: Effective Repository Date:2017-08-04 08/04/2017 David L Primary DAVID L [place] [id number] Insurance:MEDICARE CROSBYDOB: Community Person [address] PART A [facility] [id number] [facility] General [facility] Number: Repository 35561Ujp: 419 [id number] [phone] () Date:2017-08-04 08/04/2017 Secondary DAVID L [place] Insurance:[employer] CROSBYDOB: Community CARE [id number] Hospital Number: Repository [id number] Date:0916-33-88GR [address]YJDCIDZ, [place] [address]GC: 08/04/2017 Tertiary NOT GIVENUNK [place] Insurance:SELF PAY [facility] Number: Effective Repository Date:2017-08-04 08/04/2017 David Guy Primary DAVID Guy Patricia [id number] Insurance:MEDICARE CROSBYDOB: Community Person [address] PART A [facility] [id number] County General Hospital, [place] Number: [place]ository 12558Lms: 419 [id number] [phone] () Date:2017-08-04 08/04/2017 Secondary DAVID L [place] Insurance:[employer] CROSBYDOB: Community CARE [address] [place] [address] [id number] Hospital Number: Repository [id number] Date:7851-07-40OB [address]XIFUEEL, [place] [address]RQ: 08/04/2017 Tertiary NOT GIVENUNK [place] Insurance:SELF PAY [facility] Hospital Number: Effective Repository Date:2017-08-04 08/04/2017 David Guy Primary DAVID Guy Patricia [id number] Insurance:MEDICARE CROSBYDOB: Community Person [address] PART A [facility] [id number] County General Hospital, [place] Number: Repository [id number]: 419 [id number] [phone] () Date:2017-08-04 08/04/2017 Secondary DAVID L [place] Insurance:[employer] CROSBYDOB: Community CARE [id number] Hospital Number: Repository [id number] Date:5836-86-51MW [address]PEGSTCE, [place] [address]XO: 08/04/2017 Tertiary NOT GIVENUNK [place] Insurance:SELF PAY [facility] Number: Effective Repository Date:2017-08-04 08/04/2017 David Guy Primary DAVID Guy [place] [id number] Insurance:MEDICARE CROSBYDOB: Community Person [address] PART A [facility] [id number] County General [facility] Number: [place]ository [id number]: 419 [id number] [phone] () Date:2017-08-04 08/04/2017 Secondary DAVID Guy [place] Insurance:UNITED TH CROSBYDOB: Community CARE [id number] Hospital Number: Repository [id number] Date:9849-81-34PH [facility] 172271GNIHJXQ, [place] [address]YE: 08/04/2017 Tertiary NOT GIVENUNK [place] Insurance:SELF PAY [facility] Number: Effective Repository Date:2017-08-04 08/04/2017 David L Primary DAVID Guy [place] [id number] Insurance:MEDICARE CROSBYDOB: Community Person [address] PART A [facility] [id number] Number[place] Repository 20149Wfs: 419 [id number] [phone] () Date:2017-08-04 08/04/2017 Secondary DAVID L [place] Insurance:[facility] CROSBYDOB: Community CARE [id number] Hospital Number: Repository [id number] Date:1801-10-05EZ [address]KPMPKDZ, [place] [address]QZ: 08/04/2017 Tertiary NOT GIVENUNK [place] Insurance:SELF PAY [facility] Hospital Number: Effective Repository Date:2017-08-04 08/04/2017 David L Primary DAVID Guy [place] [id number] Insurance:MEDICARE CROSBYDOB[facility] [id number] Number: Repository 38909Hly: 419 [id number] [phone] () Date:2017-08-04 08/04/2017 Secondary DAVID L [place] Insurance:[facility] CROSBYDOB: Community CARE [id number] Hospital Number: Repository [id number] Date:1044-77-44PT [facility] 208612TCHFYFI, [place] [address]HW: 08/04/2017 Tertiary NOT GIVENUNK [place] Insurance:SELF PAY [facility] INSURANCEPolicy Hospital Number: Effective Repository Date:2017-08-04 08/04/2017 David Guy Primary DAVID Guy [place] [id number] Insurance:MEDICARE CROSBYDOB: Community Person [address] PART A [facility] [id number] County General Hospital, [place] Number: Repository [id number]: 419 [id number] [phone] () Date:2017-08-04 08/04/2017 Secondary DAVID L [place] Insurance:[employer] CROSBYDOB: Community CARE [id number] Hospital Number: Repository [id number] Date:8278-39-02EO [facility] 949207IVDNNRS, [place] [address]AF: 08/04/2017 Tertiary NOT GIVENUNK [place] Insurance:SELF PAY [facility] Number: Effective Repository Date:2017-08-04 07/26/2017 DAVID Guy Primary DAVID Guy [place] [id number] Insurance:MEDICARE CROSBYDOB: [facility] [address] PART A [facility] [id number] Care [facility] [place] Repository [id number]: 419 [id number] [phone] () Date:2017-07-24 07/26/2017 Secondary DAVID Guy [place] Insurance:[employer] CROSBYDOB: Community CARE [id number] Hospital Number: Repository [id number] Date:0972-44-65UG [address]CKKKAJJ, [place] [address]HX: 07/26/2017 Tertiary NOT GIVENUNK [place] Insurance:SELF PAY [facility] Hospital Number: Effective Repository Date:2017-07-26 07/24/2017 David L Primary DAVID Guy [place] [id number] Insurance:MEDICARE CROSBYDOB: [facility] Person [address] PART A [facility] [id number] [place] [address], [place]: Repository [id number]: 419 [id number] [phone] () Date:2017-07-24 07/24/2017 Secondary DAVID L [place] Insurance:[employer] CROSBYDOB: Community CARE [id number] Hospital Number: Repository [id number] Date:2680-60-36IQ [address]ULHZSIP, [place] [address]YJ: 07/24/2017 Tertiary NOT GIVENUNK [place] Insurance:SELF PAY [facility] Number: Effective Repository Date:2017-07-24 07/24/2017 David Guy Primary DAVID Guy [place] [id number] Insurance:MEDICARE CROSBYDOB: Community Person [address] PART A [facility] [id number] County General Hospital, [place] Number[place]ository 710[address]Prj: 419 [id number] [phone] () Date:2017-07-24 07/24/2017 Secondary DAVID L [place] Insurance:[employer] CROSBYDOB: [facility] CARE [id number] Hospital Number: Repository [id number] Date:1451-74-45GB [address]ZRXKEXO, [place] [address]KU: 07/24/2017 Tertiary NOT GIVENUNK [place] Insurance:SELF PAY [facility] Hospital Number: Effective Repository Date:2017-07-24 07/24/2017 David Guy Primary DAVID Guy [place] [id number] Insurance:MEDICARE CROSBYDOB: Community Person [address] PART A [facility] [id number] [place] [address], [place]: Repository [id number]: 419 [id number] [phone] () Date:2017-07-24 07/24/2017 Secondary DAVID L [place] Insurance:[employer] [facility] CROSBYDOB: Community CARE [id number] Hospital Number: Repository [id number] Date:9095-74-62RI [address]LMSVZDF, [place] [address]SJ: 07/24/2017 Tertiary NOT GIVENUNK [place] Insurance:SELF PAY [facility] Hospital Number: Effective Repository Date:2017-07-24 07/24/2017 David L Primary DAVID Guy [place] [id number] Insurance:MEDICARE CROSBYDOB: Community Person [address] PART A [facility] [id number] County General [facility], [place] Number: [place]ository [id number]: 419 [id number] [phone] () Date:2017-07-24 07/24/2017 Secondary DAVID L [place] Insurance:[employer] CROSBYDOB: Community CARE [address] [place] [address] [id number] Hospital Number: Repository [id number] Date:4370-02-26ZU [address]NWQFPOT, [place] [address]WA: 07/24/2017 Tertiary NOT GIVENUNK [place] Insurance:SELF PAY [facility] Number: Effective Repository Date:2017-07-24 07/24/2017 David L Primary DAVID L [place] [id number] Insurance:MEDICARE CROSBYDOB: [facility] RdWest PART A [facility] [id number] County General [facility] Number: Repository [id number]: 419 [id number] [phone] () Date:2017-07-24 07/24/2017 Secondary DAVID L [place] Insurance:UNITED TH CROSBYDOB: [facility] CARE [address] [place] [address] [id number] Hospital Number: Repository [id number] Date:4127-75-04SG [facility] 602298ERHKMOT, [place] [address]ZW: 07/24/2017 Tertiary NOT GIVENUNK [place] Insurance:SELF PAY [facility] Hospital Number: Effective Repository Date:2017-07-24 07/24/2017 David L Primary DAVID L [place] [id number] Insurance:MEDICARE CROSBYDOB: Community Person [address] PART A [facility] [id number] County General [facility], [place] Number: Repository 45374Vbc: 419 [id number] [phone] () Date:2017-07-24 07/24/2017 Secondary DAVID L [place] Insurance:UNITED TH CROSBYDOB: Community CARE [address] [place] [address] [id number] Hospital Number: Repository [id number] Date:1621-17-06EN [address]COZLYLW, [place] [address]NX: 07/24/2017 Tertiary NOT GIVENUNK [place] Insurance:SELF PAY [facility] Number: Effective Repository Date:2017-07-24 07/24/2017 David L Primary DAVID Guy [place] [id number] Insurance:MEDICARE CROSBYDOB: Community Person [address] PART A [facility] [id number], [place] Number: Repository [id number]: 419 [id number] [phone] () Date:2017-07-24 07/24/2017 Secondary DAVID L [place] Insurance:UNITED TH CROSBYDOB: Community CARE [address] [place] [address] [id number] Hospital Number: Repository [id number] Date:8743-66-49PE [address]HQQQWOT, [place] [address]TN: 07/24/2017 Tertiary NOT GIVENUNK [place] Insurance:SELF PAY [facility] Hospital Number: Effective Repository Date:2017-07-24 07/24/2017 David Guy Primary DAVID Guy [place] [id number] Insurance:MEDICARE CROSBYDOB: Community Person [address] PART A [facility] [id number] County General Hospital[place]ository [id number]: 419 [id number] [phone] () Date:2017-07-24 07/24/2017 Secondary DAVID L [place] Insurance:UNITED TH CROSBYDOB: Community CARE [address] [place] [address] [id number] Hospital Number: Repository [id number] Date:5691-69-85AH [facility] 508293AIIJHCL, [place] [address]JG: 07/24/2017 Tertiary NOT GIVENUNK [place] Insurance:SELF PAY [facility] Number: Effective Repository Date:2017-07-24 07/24/2017 David L Primary DAVID L [place] [id number] Insurance:MEDICARE CROSBYDOB: Community Person [address] PART A [facility] [id number] County General [facility]ository [id number]: 419 [id number] [phone] () Date:2017-07-24 07/24/2017 Secondary DAVID L [place] Insurance:[facility] CROSBYDOB: Community CARE [id number] Hospital Number: Repository [id number] Date:5812-74-27CE [facility] 907493SXZEVKZ, [place] [address]VK: 07/24/2017 Tertiary NOT GIVENUNK [place] Insurance:SELF PAY [facility] Number: Effective Repository Date:2017-07-24 07/24/2017 David L Primary DAVID L [place] [id number] Insurance:MEDICARE CROSBYDOB: Community Person [address] PART A [facility] [id number] Number: Repository [id number]: 419 [id number] [phone] () Date:2017-07-24 07/24/2017 Secondary DAVID L [place] Insurance:[facility] CROSBYDOB: [facility] CARE [id number] Hospital Number: Repository [id number] Date:6314-89-06AP [facility] 944105YKAPEGE, [place] [address]HN: 07/24/2017 Tertiary NOT GIVENUNK [place] Insurance:SELF PAY [facility] Number: Effective Repository Date:2017-07-24 07/24/2017 David L Primary DAVID L [place] [id number] Insurance:MEDICARE CROSBYDOB: [facility] [address] PART A [facility] [id number] [place] [address] [place] Number: Repository [id number]: 419 [id number] [phone] () Date:2017-07-24 07/24/2017 Secondary DAVID L [place] Insurance:[facility] CROSBYDOB: [facility] CARE [id number] Hospital Number: Repository [id number] Date:6480-00-90RJ [facility] 223399BPMJHTD, [place] [address]QI: 07/24/2017 Tertiary NOT GIVENUNK [place] Insurance:SELF PAY [facility] Number: Effective Repository Date:2017-07-24 07/24/2017 David Guy Primary DAVID Gomez [id number] Insurance:MEDICARE CROSBYDOB: [facility] PART A [facility] [id number], [place] Number: Repository [id number]: ([phone]) [id number] [phone] () Date:2017-07-24 07/24/2017 Secondary DAVID Guy [place] Insurance:[facility] CROSBYDOB: Community CARE [id number] Hospital Number: Repository [id number] Date:4373-58-38IW [address]DOAIDRB, [place] [address]OO: 07/24/2017 [facility] [place] Insurance:SELF PAY [facility] Number: Effective Repository Date:2017-07-24
== END 2018-07-10 09:21 | disposition home or self-care (01) ==
LOC: ED 11:57 → PCU 13:19
PROVIDERS: Psychiatry & Neurology Neurology; Admitting Provider Internal Medicine; Emergency Provider Emergency Medicine; Family Provider Family Medicine; PCP Family Medicine; Visit Provider Internal Medicine
DX: G45.9 Transient cerebral ischemic attack, unspecified (principal); R29.700 NIHSS score 0; R53.1 Weakness; R00.1 Bradycardia, unspecified; N40.0 Benign prostatic hyperplasia without lower urinary tract symptoms; E66.01 Morbid (severe) obesity due to excess calories; J44.9 Chronic obstructive pulmonary disease, unspecified; E11.65 Type 2 diabetes mellitus with hyperglycemia; F32.9 Major depressive disorder, single episode, unspecified; E78.5 Hyperlipidemia, unspecified; G47.33 Obstructive sleep apnea (adult) (pediatric); E11.22 Type 2 diabetes mellitus with diabetic chronic kidney disease; I12.9 Hypertensive chronic kidney disease with stage 1 through stage 4 chronic kidney disease, or unspecified chronic kidney disease; N18.3 Chronic kidney disease, stage 3 (moderate); Z86.711 Personal history of pulmonary embolism; Z79.01 Long term (current) use of anticoagulants; Z79.4 Long term (current) use of insulin; Z79.899 Other long term (current) drug therapy; Z68.44 Body mass index [BMI] 60.0-69.9, adult; Z71.3 Dietary counseling and surveillance; Z91.19 Patient's noncompliance with other medical treatment and regimen; R20.2 Paresthesia of skin; R47.81 Slurred speech; Z87.891 Personal history of nicotine dependence; Z86.14 Personal history of Methicillin resistant Staphylococcus aureus infection; E11.42 Type 2 diabetes mellitus with diabetic polyneuropathy
CPT/HCPCS: 36415; 70450; 70551; 71045; 80048; 80061; 81001; 82962; 83036; 84443; 84484; 85025; 85610; 85730; 87077; 87086; 87088; 87186; 93005; 93880; 96365; 96366; 97161; 97165; 99218; 99283; J7030; A4216; G0378

== ENCOUNTER 2018-09-16 12:08 | Emergency (ER) | payer MEDICARE, OTHER, SELFPAY ==
[2018-09-16 12:09] VITALS: BP 201/101; PULSE 97; RESP 16; TEMP 36.8; O2SAT 94; BMI 51.2
--- NOTE | 2018-09-16 13:04 | EKG12_ITS ---
Test Reason : SHOULDER PAIN Blood Pressure : / mmHG Vent. Rate : 110 BPM Atrial Rate : 097 BPM P-R Int : 000 ms QRS Dur : 148 ms QT Int : 390 ms P-R-T Axes : 000 248 017 degrees QTc Int : 527 ms Sinus Tachycardia Right bundle branch block Anterolateral infarct , age undetermined , cannot be excluded Abnormal ECG Confirmed by AI RAZO, BUSHRA ([id number]), editor in chief PAUL BLUM ([id number]) on 09/24/2018 11:25:01 AM Referred By: GUEVARA Confirmed By:BUSHRA CLOUD MD
--- NOTE | 2018-09-16 13:10 | RAD_ITS ---
STUDY: X-RAY - LEFT SHOULDER REASON FOR EXAM: Male, 77 years old. Continued shoulder pain following a recent fall. TECHNIQUE: 4 view(s) of the shoulder. COMPARISON: None. FINDINGS: Normal glenohumeral articulation. Normal acromioclavicular joint. Normal acromion. Degenerative spurring seen along the superior lateral aspect of the proximal humerus. The soft tissue structures are unremarkable. Normal visualized pulmonary apex. RAD/Shoulder min 2 Views IMPRESSION: Degenerative spurring seen in the head of the humerus laterally. Electronically Signed: Seymour Shelley, at 13:32 EDT , Service support ,
[2018-09-16 13:11] LABS: Absolute Lymphocyte Count 1.23 X10^3/ul (0.83-4.51); Absolute Neutrophil Count 8.8 X10^3/uL (2.0-7.7); Basophil# 0.02 X10^3/uL; Basophil% 0.2 % (0-1); Eosinophil# 0.05 X10^3/uL; Eosinophils% 0.5 % (0-5); Hematocrit 43.3 % (40-54); Hemoglobin 14.4 g/dl (13.0-16.5); Lymphocyte # 1.23 X10^3/ul (4.0); Lymphocyte % 12.1 % (19-41); Mean Corp Hgb Conc 33.3 g/gl (32-36); Mean Corpuscular Hgb 28.7 pg (27.0-32.0); Mean Corpuscular Volume 86.4 fL (80-94); Mean Platelet Vol. 9.5 fl (6.2-12.0); Monocyte# 0.03 X10^3/uL; Monocyte% 0.3 % (0-10); Neutrophil # 8.83 X10^3/uL (2.7-7.7); Neutrophil % 86.7 % (47-70); Platelet Count 200 K/mm3 (150-450); RBC Distribution Width CV 13.4 % (11.6-14.6); RBC Distribution Width SD 42.2 fl (35.1-43.9); Red Blood Count 5.01 M/mm3 (4.6-6.2); White Blood Count 10.2 K/mm3 (4.4-11.0)
[2018-09-16 13:13] LABS: POSITIVE COUNT NO; POSITIVE DIFFERENTIAL NO; POSITIVE MORPHOLOGY NO
[2018-09-16 13:25] LABS: Anion Gap 5 (5-15); BUN 20 mg/dL (7-18); BUN/Creat Ratio 11.3 RATIO (10-20); Calcium,Total 8.7 mg/dL (8.5-10.1); Chloride 102 mmol/L (98-107); Creatinine, Serum 1.77 mg/dL (0.70-1.30); EST Glomerular Filtration Rate 40 mL/min (>60); Est Glom Filt Rate - Afr Amer 48 mL/min (>60); Estimated Creatinine Clearance 38.36 ml/min; Glucose 373 mg/dL (74-106); Potassium 4.2 mmol/L (3.5-5.1); Sodium Level 135 mmol/L (136-145)
[2018-09-16 13:30] LABS: Bedside Glucose 357 mg/dL (70-110)
--- NOTE | 2018-09-16 14:35 | ED.VIS.GEN ---
History of Present Illness Chief Complaint: Upper Extremity Injury Informant: Patient, Family, Significant Other Onset: - - Read narrative Context: Sudden Onset Timing: Continuous Quality: Frequent falls unknown etiology past 2 months Location: months left shoulder pain Current Severity: Mild Maximum Severity: Moderate Worsened by: Palpation and movement of left upper extremity Relieved by: Nothing Associated Symptoms: Polyuria, polydipsia, nocturia and elevated blood sugar Narrative: Patient is an elderly male who looks older than reported age and presents for shoulder pain after fall. states he has been falling for the past several months. He has seen multiple physicians with known known etiology. He does give symptoms of hyperglycemia. He denies cardiac or respiratory symptoms. He denies nausea, vomiting diarrhea. He denies hematemesis, melena hematochezia. He denies dysuria or hematuria. He is on no anticoagulant. He denies headache, visual, ocular auditory symptoms. He denies neck pain. He states he has pain involving the entire left upper extremity Prior similar symptoms: Yes Recent Illness/Hospitalization: Yes - Past Medical History (1) Recurrent falls Status: Acute (2) Symptomatic sinus bradycardia Status: Acute (3) TIA Status: Acute (4) BPH (benign prostatic hyperplasia) Status: Chronic (5) COPD (chronic obstructive pulmonary disease) Status: Chronic (6) Chronic renal failure, stage 3 (moderate) Status: Chronic (7) HLD (hyperlipidemia) Status: Chronic (8) HTN (hypertension) Status: Chronic (9) History of depression Status: Chronic (10) NILO (obstructive sleep apnea) Status: Chronic Comment: BiPAP ST 18/12 cm of water (11) Status post placement of implantable loop recorder Status: Chronic (12) Thromboembolism Status: Chronic (13) Type II diabetes mellitus, uncontrolled Status: Chronic Past Medical History - Allergies and Home Meds Allergies/Adverse Reactions: Allergies MARGIE Inhibitors Allergy (Unknown, Verified 09/16/18 12:09) Unknown cefepime Allergy (Verified 09/16/18 12:09) Other WEAKNESS & FALLING ipodate [Ipodate] Allergy (Verified 09/16/18 12:09) Shortness of breath levofloxacin [Levofloxacin] Allergy (Verified 09/16/18 12:09) Anaphylaxis lisinopril Allergy (Verified 09/16/18 12:09) Shortness of breath ofloxacin Allergy (Verified 09/16/18 12:09) Unknown Quinolones Allergy (Verified 09/16/18 12:09) Anaphylaxis Primary Care Physician: Wili Nelson DO [Primary Care Provider] - Prior records reviewed: Yes Surgical History: noncontributory, - - Circumcision, excision of kidney stone Lives: Spouse/ Significant Other Smoking Status: Former smoker Alcohol: None - Family History Maternal Family History: Family History (Last Reviewed 06/16/18 @ 14:31 by BETTYE Aguilera) Father Colon cancer Mother Cancer Sister CAD (coronary artery disease) Family History: Reports: Cancer - Patient's mother of cancer but he is not sure what kind of cancer. Paternal Family History: Family History (Last Reviewed 06/16/18 @ 14:31 by BETTYE Aguilera) Father Colon cancer Mother Cancer Sister CAD (coronary artery disease) Family History: Reports: Cancer - Father of colon cancer Offspring Family History: Family History (Last Reviewed 06/16/18 @ 14:31 by BETTEY Aguilera) Father Colon cancer Mother Cancer Sister CAD (coronary artery disease) Family History: Reports: - - He has a son who is morbidly obese and suffers from breathing problems and heart problems. Review of Systems General: Denies: Chills, Fever, Sweats Eyes: Reports: Blurred Vision - bilaterally - Blurred vision is intermittent.. Denies: Visual changes - bilaterally, Diplopia ENT: Denies: Rhinorrhea, Sore throat Cardiovascular: Denies: Chest pain, Palpitations Respiratory: Denies: Dyspnea, Cough, Dyspnea on exertion Gastrointestinal: Denies: Abdominal pain, Nausea, Vomiting, Diarrhea, Melena, Hematochezia Genitourinary: Denies: Dysuria, Hematuria, Frequency Musculoskeletal: Reports: Extremity Pain. Denies: Myalgias, Arthralgias, Neck pain, Back pain, Swelling Skin: Reports: - Neurological: Denies: Headache, Weakness, Parasthesia, Numbness, -, - Psych: Reports: Depression Hematologic: Denies: Easy bruising, Easy bleeding Allergy: Reports: Uticaria Physical Exam Vital Signs/Narrative: Vital Signs Temp Pulse Resp BP Pulse Ox 09/16/18 12:09 98.3 F 97 16 201/101 H 94 Inital Vital Signs reviewed: Yes General: Well nourished, Well developed, Obese, Unkempt Head: Normocephalic, Atraumatic Eyes: Perrl, EOMI. Negative for: Pale conjunctiva, Scleral icterus ENT: Moist mucous membranes, No rhinorrhea, TM's clear, - - No clinical findings of basal skull fracture Neck: Supple, Nontender, No lymphadenopathy, No JVD, - - Full range of motion without discomfort Cardiovascular: Regular rate, Regular rhythm, No murmurs, Normal S1, Normal S2 Respiratory: No distress, CTA bilaterally, Chest tenderness - Superior anterior left chest. Abdomen: Soft, Nontender, Nondistended, Normal bowel sounds, No masses Back: Normal Inspection, - - Minimal bilateral paraspinal discomfort. Negative for: CVA tenderness Extremities: Tenderness - Proximal left arm/shoulder. There is no pain palpation over the clavicle or AC joint. There is no pain the patient over the lateral medial epicondyle. Is no elevation of the olecranon process or radial head. There is no pain the patient with distal radius ulna. There is no pain the vision of the carpal bones, metacarpal bones or phalanges. Skin: Normal color, No rash, Trauma Neurological: Alert, Oriented x3, Cranial nerves II-XII grossly intact, Normal Strength, Normal Sensation, Normal DTR - There is no clonus or Babinski sign noted. Axillary, median, radial and ulnar function intact. Psychological: Depressed Diagnostic/Tx/Re-eval Chest X-Ray - ED: Read by ED Physician Three-view x-ray of the shoulder was obtained and interpreted by me as negative. There is no evidence of fracture of the clavicle. There is no line of the AC joint. There is no subluxation, dislocation or fracture involving the shoulder/proximal humerus. Impressions Shoulder X-Ray 09/16/18 13:10 IMPRESSION: Degenerative spurring seen in the head of the humerus laterally. Electronically Signed: Seymour Shelley, at 13:32 EDT , Service support , 09/16/18 13:10 Shoulder min 2 Views [RAD] Stat Laboratory Results 09/16/18 09/16/18 09/16/18 13:02 13:02 13:25 WBC 10.2 RBC 5.01 Hgb 14.4 Hct 43.3 MCV 86.4 MCH 28.7 MCHC 33.3 RDW 13.4 RDW Differential 42.2 Plt Count 200 MPV 9.5 Immature Gran % (Auto) 0.200 Neut % (Auto) 86.7 H Lymph % (Auto) 12.1 L [place] % (Auto) 0.3 Eos % (Auto) 0.5 Baso % (Auto) 0.2 Absolute Neuts (auto) 8.8 H Absolute Lymphs (auto) 1.23 Total Counted Not Reportable Sodium 135 L Potassium 4.2 Chloride 102 Carbon Dioxide 28.0 Anion Gap 5 BUN 20 H Creatinine 1.77 H Estim Creat Clear Calc 38.36 Est GFR (MDRD) Af Amer 48 L Est GFR (MDRD) Non-Af 40 L BUN/Creatinine Ratio 11.3 Glucose 373 H Calcium 8.7 POC Glucose 357 H - Medical Decision Making We will assess H&H and basic metabolic panel to assess electrolytes, CO2 and anion gap and glucose. X-ray was obtained to evaluate for proximal humeral fracture. Patient received IV fluids and subcu insulin for his hyperglycemia. With history of poorly controlled diabetes suspect autonomic dysfunction as the etiology of his falls. ED Disposition - Plan for ED Patient: Disposition: Home or Assisted Living Diagnosis: Contusion of left shoulder, initial encounter, Hyperglycemia due to type 2 diabetes mellitus, NILO (obstructive sleep apnea), HTN (hypertension), History of depression, HLD (hyperlipidemia), Chronic renal failure, stage 3 (moderate), COPD (chronic obstructive pulmonary disease) Instructions: ED Contusion Shoulder, ED Hyperglycemia Diabetic Referrals: Wili Nelson DO [Primary Care Provider] - 3-5 Days if not improving
[2018-09-16] MEDS: Insulin Lispro 100 UNIT/ML INSULN.PEN 7 UNIT SC (15:02)
[2018-09-16 15:03] VITALS: RESP 19
[2018-09-16] MEDS: Acetaminophen 325 MG Tablet 650 MG PO (15:30)
== END 2018-09-16 15:31 | disposition home or self-care (01) ==
PROVIDERS: Emergency Provider Emergency Medicine; Family Provider Family Medicine; PCP Family Medicine
DX: S40.012A Contusion of left shoulder, initial encounter (principal); W19.XXXA Unspecified fall, initial encounter; Y93.9 Activity, unspecified; Y92.89 Other specified places as the place of occurrence of the external cause; Y99.9 Unspecified external cause status; E11.65 Type 2 diabetes mellitus with hyperglycemia; G47.33 Obstructive sleep apnea (adult) (pediatric); E78.5 Hyperlipidemia, unspecified; N18.3 Chronic kidney disease, stage 3 (moderate); I12.9 Hypertensive chronic kidney disease with stage 1 through stage 4 chronic kidney disease, or unspecified chronic kidney disease; J44.9 Chronic obstructive pulmonary disease, unspecified; F32.9 Major depressive disorder, single episode, unspecified
CPT/HCPCS: 73030; 80048; 82962; 85025; 93005; 99285; A4216

== ENCOUNTER 2018-09-23 13:13 | Emergency (ER) | payer MEDICARE, OTHER, SELFPAY ==
[2018-09-22 13:53] VITALS: BMI 50.4
[2018-09-23 13:15] VITALS: BP 165/84; PULSE 90; RESP 17; TEMP 36.7; O2SAT 94; BMI 50.4
[2018-09-23] MEDS: Morphine 4 MG/ML Syringe SC (14:40)
--- NOTE | 2018-09-23 14:45 | RAD_ITS ---
STUDY: X-RAY - LEFT SHOULDER REASON FOR EXAM: Male, 77 years old. Pain following a fall. TECHNIQUE: 2 view(s) of the shoulder. Limited study due to patient's body habitus. COMPARISON: None. FINDINGS: Normal glenohumeral articulation. Normal acromioclavicular joint. Normal acromion. Normal humeral head and visualized proximal humerus. The soft tissue structures are unremarkable. Normal visualized pulmonary apex. RAD/Shoulder min 2 Views IMPRESSION: Normal x-ray examination of the shoulder. Electronically Signed: Seymour Shelley, at 15:24 EDT , Service support ,
--- NOTE | 2018-09-23 14:45 | RAD_ITS ---
STUDY: X-RAY - CERVICAL SPINE REASON FOR EXAM: Male, 77 years old. Pain following a fall. TECHNIQUE: 4 view(s) of the cervical spine were obtained. Limited study due to the patient's body habitus. Only C1-C5 vertebrae are seen. COMPARISON: None FINDINGS: There are degenerative changes of the anterior atlantoaxial articulation. Normal odontoid process. There is straightening of the normal cervical lordosis. The space narrowing and spondylosis at the C4-C5 and C5-C6 levels. Facet joint osteoarthritis. Normal disc space heights. Normal visualized intervertebral neuroforamina. The soft tissue structures are unremarkable. RAD/Cerv Spine 2 or 3 Views IMPRESSION: Limited examination. Degenerative changes. Loss of the normal cervical lordosis. Electronically Signed: Seymour Shelley, at 15:24 EDT , Service support ,
--- NOTE | 2018-09-23 14:45 | RAD_ITS ---
STUDY: X-RAY - RIGHT SHOULDER REASON FOR EXAM: Male, 77 years old. History of fall. TECHNIQUE: 2 view(s) of the shoulder. COMPARISON: None. FINDINGS: Normal glenohumeral articulation. There is degenerative arthrosis of the acromioclavicular joint without inferior osseous spur formation. Normal acromion. Normal humeral head and visualized proximal humerus. The soft tissue structures are unremarkable. Normal visualized pulmonary apex. RAD/Shoulder min 2 Views IMPRESSION: Degenerative changes of the acromioclavicular joint. Electronically Signed: Seymour Shelley, at 15:25 EDT , Service support ,
[2018-09-23 15:16] VITALS: RESP 18
--- NOTE | 2018-09-23 15:42 | ED.DCSUM_ITS ---
- ER Visit Summary Date of Service: 09/23/18 Chief Complaint: Neck pain, bilateral shoulder pain History of Present Illness: The patient is a 77 M who has had neck and bilateral shoulder pain for the past week. He fell. He was seen in the ER and had a negative shoulder x-ray at that time. His pain is now continuing. He ran out his oxycodone last night and now he is back today. He states that it did not help anyway. Pain is worse with movement. He has been able to ambulate on his own. Denies any other symptoms. Physical Examination: Vital signs reviewed. HEENT exam unremarkable. Neck has diffuse tenderness. Heart is regular rate and rhythm. Lungs are clear. Abdomen soft. He has bilateral shoulder tenderness that is diffuse. He does have painful range of motion of each shoulder. His GCS is 15. Neurologic exam is normal Test Results: Bilateral shoulder x-rays revealed no fractures. Cervical spine x-ray is limited but also reveals no fractures Emergency Department Course and Treatment: Patient was given subcutaneous morphine. I see no acute fractures. Patient will be discharged with naproxen for pain. He will follow-up with his PCP Treatment Plan: [] Disposition: Discharge Impression: Bilateral shoulder contusions Cervical strain This note was generated with [employer] dictation software. It may contain incorrect words, spelling, and punctuation that were not noted in review of the chart prior to signing ED Disposition - Plan for ED Patient: Referrals: Wili Nelson DO [Primary Care Provider] -
== END 2018-09-23 16:46 | disposition home or self-care (01) ==
PROVIDERS: Emergency Provider Emergency Medicine; Family Provider Family Medicine; PCP Family Medicine
DX: S16.1XXA Strain of muscle, fascia and tendon at neck level, initial encounter (principal); S40.012A Contusion of left shoulder, initial encounter; S40.011A Contusion of right shoulder, initial encounter; W19.XXXA Unspecified fall, initial encounter
CPT/HCPCS: 72040; 73030; 96372; 99282

== ENCOUNTER 2018-10-18 15:26 | Inpatient (IN) | payer MEDICARE, OTHER, SELFPAY ==
[2018-10-18] VITALS (18 sets, daily range): BP systolic 86–172; BP diastolic 47–74; PULSE 65–92; RESP 11–22; TEMP 35.9–37.2; O2SAT 93–100; BMI 48.9; BMI 48.4
[2018-10-18 15:36] LABS: Bedside Glucose 172 mg/dL (70-110)
--- NOTE | 2018-10-18 15:37 | RAD_ITS ---
STUDY: X-RAY CHEST REASON FOR EXAM: Male, 77 years old. Shortness of breath TECHNIQUE: Single AP portable view of the chest. COMPARISON: 07/08/2018 FINDINGS: Lungs are adequately inflated and clear. There is no demonstrated pleural abnormality. There is mild cardiac enlargement. Cardiac event monitor is noted. Normal mediastinum and denys. Normal visualized pulmonary arteries. Normal visualized aortic arch and descending thoracic aorta. Normal visualized thoracic spine. Normal visualized ribs, clavicles, and shoulders. There is no demonstrated abnormality of the visualized soft tissue structures of the upper abdomen. RAD/Chest 1 View (Portable) IMPRESSION: No acute findings Electronically Signed: Gregorio Young DO at 16:07 EDT Tel , Service support ,
--- NOTE | 2018-10-18 15:44 | CT_ITS ---
STUDY: CT BRAIN WITHOUT CONTRAST REASON FOR EXAM: Male, 77 years old. Altered mental status and hypotension RADIATION DOSAGE (If Supplied By Facility): CTDIvol = ( 44.99 ) mGy, DLP = ( 846.73 ) mGycm TECHNIQUE: Transaxial CT imaging of the brain was performed without administration of intravenous contrast material. Individualized dose optimization techniques were used for this CT. COMPARISON: 07/09/2018 FINDINGS: Normal soft tissue structures. Normal calvarium. There is moderate cerebral atrophy with widening of the extra-axial spaces and ventricular dilatation. There are areas of decreased attenuation within the white matter tracts of the supratentorial brain, consistent with microvascular disease changes. Normal basal ganglia and thalami. Normal brainstem. There is mild cerebellar atrophy. There is no intracranial hemorrhage. There are no findings of an acute ischemic infarction. Normal visualized paranasal sinuses. CT/Brain/Head without Contrast IMPRESSION: Chronic involutional changes of the brain. Electronically Signed: Gregorio Young DO at 16:28 EDT Tel , Service support ,
--- NOTE | 2018-10-18 15:45 | ED.VISSUMM ---
- ER Visit Summary Date of Service: 10/18/18 Chief Complaint: Altered mental status History of Present Illness: The patient is a 77 M who presents for altered mental status. Patient states for the last 2 hours he feels dazed. He has no specific complaint of shortness of breath, chest pain, nausea, vomiting or abdominal pain. stated he had been complaining of blurry vision. EMS was called to the orthopedic office where patient was noted to have the altered mental status. They found him laying on the ground with snoring respirations. Patient had stomach flu last week. He has history of diabetes. Denies any history of coronary artery disease, CHF, COPD. Physical Examination: Vital signs: afebrile, hypotensive, no hypoxia on room air General: well nourished, well developed, BMI of 48, patient is ill-appearing Skin: warm, moist, pale HEENT: normocephalic and atraumatic; PERRL, EOMI, dry mucous membranes Cardiovascular: regular rate and rhythm without murmurs, symmetric peripheral edema with chronic skin changes/venous stasis Respiratory: No increased work of breathing, lungs are clear to auscultation bilaterally, exam limited secondary to body habitus Abdominal: Abdomen is soft, nontender with normoactive bowel sounds, no guarding or rebound, no masses MSK: Generalized weakness. Able to wiggle fingers and toes. Neuro: Somnolent, answers questions appropriately. No facial droop, sensation and motor function intact and symmetric Test Results: Clinical Impression(s) from Imaging Studies Chest X-Ray 10/18/18 15:37 IMPRESSION: No acute findings Electronically Signed: Gregorio Young DO at 16:07 EDT Tel , Service support , Brain CT 10/18/18 15:44 IMPRESSION: Chronic involutional changes of the brain. Electronically Signed: Gregorio Young DO at 16:28 EDT Tel , Service support , Abdomen/Pelvis CT 10/18/18 16:34 IMPRESSION: 1. Under distended bladder with appearance of circumferential wall thickening. Cystitis cannot be excluded 2. No evidence of small bowel obstruction. Unremarkable appendix 3. Presumed bilateral renal cysts, stable from prior exam. Nonobstructing right-sided nephroliths. Recommend correlation with renal ultrasound when possible Electronically Signed: Gregorio Young DO at 17:18 EDT Tel , Service support , Abnormal Lab Results 10/18/18 10/18/18 10/18/18 15:33 15:35 15:35 WBC 13.0 H RBC 3.03 L Hgb 8.3 L Hct 26.2 L MCV 86.5 MCH 27.4 MCHC 31.7 L RDW 13.5 RDW Differential 42.9 Plt Count 401 MPV 9.0 Immature Gran % (Auto) 0.300 Neut % (Auto) 80.9 H Lymph % (Auto) 9.8 L [place] % (Auto) 7.6 Eos % (Auto) 1.0 Baso % (Auto) 0.4 Absolute Neuts (auto) 10.5 H Absolute Lymphs (auto) 1.27 Total Counted Not Reportable PT 19.8 H INR 1.7 APTT 53.7 H Sodium Potassium Chloride Carbon Dioxide Anion Gap BUN Creatinine Estim Creat Clear Calc Est GFR (MDRD) Af Amer Est GFR (MDRD) Non-Af BUN/Creatinine Ratio Glucose Lactic Acid Calcium Total Bilirubin AST ALT Alkaline Phosphatase Troponin I B-Natriuretic Peptide Total Protein Albumin Globulin Albumin/Globulin Ratio Ethyl Alcohol POC Glucose 172 H 10/18/18 10/18/18 10/18/18 15:35 15:35 15:35 WBC RBC Hgb Hct MCV MCH MCHC RDW RDW Differential Plt Count MPV Immature Gran % (Auto) Neut % (Auto) Lymph % (Auto) [place] % (Auto) Eos % (Auto) Baso % (Auto) Absolute Neuts (auto) Absolute Lymphs (auto) Total Counted PT INR APTT Sodium 138 Potassium 4.5 Chloride 109 H Carbon Dioxide 21.0 Anion Gap 8 BUN 64 H Creatinine 2.19 H Estim Creat Clear Calc 31.00 Est GFR (MDRD) Af Amer 38 L Est GFR (MDRD) Non-Af 31 L BUN/Creatinine Ratio 29.2 H Glucose 167 H Lactic Acid Calcium 8.5 Total Bilirubin 0.20 AST 30 ALT 38 Alkaline Phosphatase 119 H Troponin I < 0.015 B-Natriuretic Peptide 10.8 Total Protein 6.8 Albumin 1.9 L Globulin 4.9 H Albumin/Globulin Ratio 0.4 L Ethyl Alcohol 9.0 POC Glucose 10/18/18 15:40 WBC RBC Hgb Hct MCV MCH MCHC RDW RDW Differential Plt Count MPV Immature Gran % (Auto) Neut % (Auto) Lymph % (Auto) [place] % (Auto) Eos % (Auto) Baso % (Auto) Absolute Neuts (auto) Absolute Lymphs (auto) Total Counted PT INR APTT Sodium Potassium Chloride Carbon Dioxide Anion Gap BUN Creatinine Estim Creat Clear Calc Est GFR (MDRD) Af Amer Est GFR (MDRD) Non-Af BUN/Creatinine Ratio Glucose Lactic Acid 2.3 H Calcium Total Bilirubin AST ALT Alkaline Phosphatase Troponin I B-Natriuretic Peptide Total Protein Albumin Globulin Albumin/Globulin Ratio Ethyl Alcohol POC Glucose Medications Given Vancomycin HCl 2,000 mg/ (Sodium Chloride) 540 mls @ 250 mls/hr IV X1 ONE Stop: 10/18/18 19:04 Last Admin: 10/18/18 17:10 Dose: 250 mls/hr Piperacillin Sod/Tazobactam (Sod 4.5 gm/ Sodium Chloride) 100 mls @ 150 mls/hr IV X1 ONE Stop: 10/18/18 17:34 Last Admin: 10/18/18 17:09 Dose: 150 mls/hr Sodium Chloride () 1,000 mls @ 999 mls/hr IV .Q1H1M ONE Stop: 10/18/18 18:21 Discontinued Medications Sodium Chloride () 1,000 mls @ 999 mls/hr IV .Q1H1M ONE Stop: 10/18/18 16:45 Last Admin: 10/18/18 15:48 Dose: 999 mls/hr Vancomycin HCl 2,000 mg/ (Dextrose) 290 mls @ 250 mls/hr IV X1 ONE Stop: 10/18/18 17:53 Emergency Department Course and Treatment: Patient presents for altered mental status and is hypotensive. Patient was given IV fluids. He did have the diarrheal illness last week, and states that he has not been eating or drinking much ever since. Work-up performed, including concern for possible underlying infection. Patient had a leukocytosis of 13, however he did not have fever, tachycardia, or tachypnea and did not meet sirs criteria. His renal function was acutely worse than his baseline, with labs concerning for dehydration. Lactate of 2.3. Chest x-ray showed no infiltrates or pulmonary edema. CT of the abdomen showed no acute process. Patient's hemoglobin was low at 8.3, which is an acute change. A rectal exam showed soft dark brownish-green stool, not black or tarry, and guaiac negative. Patient was started empirically on broad-spectrum antibiotic coverage for concern for possible infection of unknown source. He will be admitted to the ICU for further work-up of his dehydration, hypotension and illness of unknown source. Treatment Plan: [] Disposition: [] Impression: AMS, dehydration, hypotension, occult infection This note was generated with [employer] dictation software. It may contain incorrect words, spelling, and punctuation that were not noted in review of the chart prior to signing ED Disposition - Plan for ED Patient: Disposition: Acute [facility]
[2018-10-18] MEDS: 0.9% Normal Saline 1,000 ML 999 ML IV ×2 (15:48→17:21)
--- NOTE | 2018-10-18 15:49 | ED.DCSUM_ITS ---
- ER Visit Summary Date of Service: 10/18/18 Chief Complaint: Altered mental status History of Present Illness: The patient is a 77 M who presents for altered mental status. Patient states for the last 2 hours he feels dazed. He has no specific complaint of shortness of breath, chest pain, nausea, vomiting or abdominal pain. stated he had been complaining of blurry vision. EMS was called to the orthopedic office where patient was noted to have the altered mental status. They found him laying on the ground with snoring respirations. Patient had stomach flu last week. He has history of diabetes. Denies any history of coronary artery disease, CHF, COPD. Physical Examination: Vital signs: afebrile, hypotensive, no hypoxia on room air General: well nourished, well developed, BMI of 48, patient is ill-appearing Skin: warm, moist, pale HEENT: normocephalic and atraumatic; PERRL, EOMI, dry mucous membranes Cardiovascular: regular rate and rhythm without murmurs, symmetric peripheral edema with chronic skin changes/venous stasis Respiratory: No increased work of breathing, lungs are clear to auscultation bilaterally, exam limited secondary to body habitus Abdominal: Abdomen is soft, nontender with normoactive bowel sounds, no guarding or rebound, no masses MSK: Generalized weakness. Able to wiggle fingers and toes. Neuro: Somnolent, answers questions appropriately. No facial droop, sensation and motor function intact and symmetric Test Results: Clinical Impression(s) from Imaging Studies Chest X-Ray 10/18/18 15:37 IMPRESSION: No acute findings Electronically Signed: Gregorio Young DO at 16:07 EDT Tel , Service support , Brain CT 10/18/18 15:44 IMPRESSION: Chronic involutional changes of the brain. Electronically Signed: Gregorio Young DO at 16:28 EDT Tel , Service support , Abdomen/Pelvis CT 10/18/18 16:34 IMPRESSION: 1. Under distended bladder with appearance of circumferential wall thickening. Cystitis cannot be excluded 2. No evidence of small bowel obstruction. Unremarkable appendix 3. Presumed bilateral renal cysts, stable from prior exam. Nonobstructing right-sided nephroliths. Recommend correlation with renal ultrasound when possible Electronically Signed: Gregorio Young DO at 17:18 EDT Tel , Service support , Abnormal Lab Results 10/18/18 10/18/18 10/18/18 15:33 15:35 15:35 WBC 13.0 H RBC 3.03 L Hgb 8.3 L Hct 26.2 L MCV 86.5 MCH 27.4 MCHC 31.7 L RDW 13.5 RDW Differential 42.9 Plt Count 401 MPV 9.0 Immature Gran % (Auto) 0.300 Neut % (Auto) 80.9 H Lymph % (Auto) 9.8 L Lipscomb % (Auto) 7.6 Eos % (Auto) 1.0 Baso % (Auto) 0.4 Absolute Neuts (auto) 10.5 H Absolute Lymphs (auto) 1.27 Total Counted Not Reportable PT 19.8 H INR 1.7 APTT 53.7 H Sodium Potassium Chloride Carbon Dioxide Anion Gap BUN Creatinine Estim Creat Clear Calc Est GFR (MDRD) Af Amer Est GFR (MDRD) Non-Af BUN/Creatinine Ratio Glucose Lactic Acid Calcium Total Bilirubin AST ALT Alkaline Phosphatase Troponin I B-Natriuretic Peptide Total Protein Albumin Globulin Albumin/Globulin Ratio Ethyl Alcohol POC Glucose 172 H 10/18/18 10/18/18 10/18/18 15:35 15:35 15:35 WBC RBC Hgb Hct MCV MCH MCHC RDW RDW Differential Plt Count MPV Immature Gran % (Auto) Neut % (Auto) Lymph % (Auto) Lipscomb % (Auto) Eos % (Auto) Baso % (Auto) Absolute Neuts (auto) Absolute Lymphs (auto) Total Counted PT INR APTT Sodium 138 Potassium 4.5 Chloride 109 H Carbon Dioxide 21.0 Anion Gap 8 BUN 64 H Creatinine 2.19 H Estim Creat Clear Calc 31.00 Est GFR (MDRD) Af Amer 38 L Est GFR (MDRD) Non-Af 31 L BUN/Creatinine Ratio 29.2 H Glucose 167 H Lactic Acid Calcium 8.5 Total Bilirubin 0.20 AST 30 ALT 38 Alkaline Phosphatase 119 H Troponin I < 0.015 B-Natriuretic Peptide 10.8 Total Protein 6.8 Albumin 1.9 L Globulin 4.9 H Albumin/Globulin Ratio 0.4 L Ethyl Alcohol 9.0 POC Glucose 10/18/18 15:40 WBC RBC Hgb Hct MCV MCH MCHC RDW RDW Differential Plt Count MPV Immature Gran % (Auto) Neut % (Auto) Lymph % (Auto) Lipscomb % (Auto) Eos % (Auto) Baso % (Auto) Absolute Neuts (auto) Absolute Lymphs (auto) Total Counted PT INR APTT Sodium Potassium Chloride Carbon Dioxide Anion Gap BUN Creatinine Estim Creat Clear Calc Est GFR (MDRD) Af Amer Est GFR (MDRD) Non-Af BUN/Creatinine Ratio Glucose Lactic Acid 2.3 H Calcium Total Bilirubin AST ALT Alkaline Phosphatase Troponin I B-Natriuretic Peptide Total Protein Albumin Globulin Albumin/Globulin Ratio Ethyl Alcohol POC Glucose Medications Given Vancomycin HCl 2,000 mg/ (Sodium Chloride) 540 mls @ 250 mls/hr IV X1 ONE Stop: 10/18/18 19:04 Last Admin: 10/18/18 17:10 Dose: 250 mls/hr Piperacillin Sod/Tazobactam (Sod 4.5 gm/ Sodium Chloride) 100 mls @ 150 mls/hr IV X1 ONE Stop: 10/18/18 17:34 Last Admin: 10/18/18 17:09 Dose: 150 mls/hr Sodium Chloride () 1,000 mls @ 999 mls/hr IV .Q1H1M ONE Stop: 10/18/18 18:21 Discontinued Medications Sodium Chloride () 1,000 mls @ 999 mls/hr IV .Q1H1M ONE Stop: 10/18/18 16:45 Last Admin: 10/18/18 15:48 Dose: 999 mls/hr Vancomycin HCl 2,000 mg/ (Dextrose) 290 mls @ 250 mls/hr IV X1 ONE Stop: 10/18/18 17:53 Emergency Department Course and Treatment: Patient presents for altered mental status and is hypotensive. Patient was given IV fluids. He did have the diarrheal illness last week, and states that he has not been eating or drinking much ever since. Work-up performed, including concern for possible underlying infection. Patient had a leukocytosis of 13, however he did not have fever, tachycardia, or tachypnea and did not meet sirs criteria. His renal function was acutely worse than his baseline, with labs concerning for dehydration. Lactate of 2.3. Chest x-ray showed no infiltrates or pulmonary edema. CT of the abdomen showed no acute process. Patient's hemoglobin was low at 8.3, which is an acute change. A rectal exam showed soft dark brownish-green stool, not black or tarry, and guaiac negative. Patient was started empirically on broad-spectrum antibiotic coverage for concern for possible infection of unknown source. He will be admitted to the ICU for further work-up of his dehydration, hypotension and illness of unknown source. Treatment Plan: [] Disposition: [] Impression: AMS, dehydration, hypotension, occult infection This note was generated with [employer] dictation software. It may contain incorrect words, spelling, and punctuation that were not noted in review of the chart prior to signing ED Disposition - Plan for ED Patient: Disposition: Acute [facility]
[2018-10-18 16:18] LABS: Absolute Lymphocyte Count 1.27 X10^3/ul (0.83-4.51); Absolute Neutrophil Count 10.5 X10^3/uL (2.0-7.7); Basophil# 0.05 X10^3/uL; Basophil% 0.4 % (0-1); Eosinophil# 0.13 X10^3/uL; Hematocrit 26.2 % (40-54); Hemoglobin 8.3 g/dl (13.0-16.5); Lymphocyte # 1.27 X10^3/ul (4.0); Lymphocyte % 9.8 % (19-41); Mean Corp Hgb Conc 31.7 g/gl (32-36); Mean Corpuscular Hgb 27.4 pg (27.0-32.0); Mean Corpuscular Volume 86.5 fL (80-94); Monocyte# 0.98 X10^3/uL; Monocyte% 7.6 % (0-10); Neutrophil # 10.51 X10^3/uL (2.7-7.7); Neutrophil % 80.9 % (47-70); Platelet Count 401 K/mm3 (150-450); RBC Distribution Width CV 13.5 % (11.6-14.6); RBC Distribution Width SD 42.9 fl (35.1-43.9); Red Blood Count 3.03 M/mm3 (4.6-6.2)
--- NOTE | 2018-10-18 16:18 | EKG12_ITS ---
Test Reason : ALT MENTAL STATUS Blood Pressure : / mmHG Vent. Rate : 089 BPM Atrial Rate : 092 BPM P-R Int : 236 ms QRS Dur : 152 ms QT Int : 412 ms P-R-T Axes : 097 -75 020 degrees QTc Int : 501 ms Sinus rhythm with 1st degree A-V block with Premature supraventricular complexes Left axis deviation Right bundle branch block Inferior infarct (cited on or before 13-MAR-2018), age undetermined Anterolateral infarct (cited on or before 08-JUL-2018), age undetermined Abnormal ECG Confirmed by AI RAZO, BUSHRA ([id number]), editor index PAUL BLUM ([id number]) on 10/21/2018 9:11:42 AM Referred By: Love Christine Confirmed By:BUSHRA CLOUD MD
[2018-10-18 16:21] LABS: ALB/GLOB Ratio 0.4 RATIO (0.9-2.4); AST(SGOT) 30 U/L (15-37); Alanine Aminotransfer ALT/SGPT 38 U/L (16-61); Albumin, Serum 1.9 g/dL (3.2-5.0); Alkaline Phosphatase 119 U/L (45-117); Anion Gap 8 (5-15); BUN 64 mg/dL (7-18); BUN/Creat Ratio 29.2 RATIO (10-20); Calcium,Total 8.5 mg/dL (8.5-10.1); Chloride 109 mmol/L (98-107); Creatinine, Serum 2.19 mg/dL (0.70-1.30); EST Glomerular Filtration Rate 31 mL/min (>60); Est Glom Filt Rate - Afr Amer 38 mL/min (>60); Globulin 4.9 g/dL (2.2-4.2); Glucose 167 mg/dL (74-106); Potassium 4.5 mmol/L (3.5-5.1); Protein, Total 6.8 g/dL (6.4-8.2); Sodium Level 138 mmol/L (136-145)
[2018-10-18 16:31] LABS: Lactic Acid 2.3 mmol/L (0.4-2.0)
--- NOTE | 2018-10-18 16:34 | CT_ITS ---
STUDY: CT ABDOMEN AND PELVIS WITHOUT CONTRAST REASON FOR EXAM: Male, 77 years old. Abdominal pain RADIATION DOSAGE (If Supplied By Facility): CTDIvol = ( 24.18 ) mGy, DLP = ( 1589.55 ) mGycm TECHNIQUE: Transaxial images were obtained from the dome of the diaphragm to the symphysis pubis without oral contrast, and without intravenous contrast. Sagittal and coronal images were reconstructed. Individualized dose optimization techniques were used for this CT. COMPARISON: 08/04/2017 FINDINGS: The visualized lung bases are unremarkable. The visualized portions of the heart are within normal limits. Normal liver. Normal gallbladder and extrahepatic biliary system. Normal spleen. There is diffuse atrophy of the pancreas. Normal bilateral adrenal glands. Hypodensities in both kidneys are presumed cysts. Stable from prior exam. Nonobstructing stable right upper pole calcification as well as lower pole calcification. No evidence of hydronephrosis. There is a small hiatal hernia. Normal small intestine. There are multiple colonic diverticula consistent with diverticulosis. The appendix is visualized and appears normal. There is diffuse atherosclerotic calcification of the abdominal aorta, without a demonstrated aneurysm. Normal inferior vena cava. Normal retroperitoneum. Under distended urinary bladder with presumed circumferential wall thickening. Prostate calcification Small bilateral fat-containing hernias. There are diffuse degenerative changes of the visualized lumbar spine. CT/Abdomen/Pelvis without Cont IMPRESSION: 1. Under distended bladder with appearance of circumferential wall thickening. Cystitis cannot be excluded 2. No evidence of small bowel obstruction. Unremarkable appendix 3. Presumed bilateral renal cysts, stable from prior exam. Nonobstructing right-sided nephroliths. Recommend correlation with renal ultrasound when possible Electronically Signed: Gregorio Young DO at 17:18 EDT Tel , Service support ,
[2018-10-18 16:36] LABS: International Normalized Ratio 1.7; Prothrombin Time (Protime)PT. 19.8 SECONDS (11.7-14.9)
[2018-10-18 16:37] LABS: POSITIVE COUNT NO; POSITIVE DIFFERENTIAL NO; POSITIVE MORPHOLOGY NO; Partial Thromboplast Time 53.7 Seconds (24.1-36.2)
[2018-10-18 16:48] LABS: BNP,B-Type NATRIURETIC PEPTIDE 10.8 pg/mL (0-100)
--- NOTE | 2018-10-18 16:50 | ED.RN ---
MULTIPLE ATTEMPTS TO OBTAIN URINE SAMPLE BY STRAIGHT CATH, BRUSH CATH (6 TIMES), AND URINAL. DR MAHONEY AWARE. NO NEW ORDERS.
--- NOTE | 2018-10-18 16:53 | EKG12_ITS ---
Test Reason : REPEAT Blood Pressure : / mmHG Vent. Rate : 070 BPM Atrial Rate : 070 BPM P-R Int : 238 ms QRS Dur : 148 ms QT Int : 440 ms P-R-T Axes : 073 -52 013 degrees QTc Int : 475 ms Sinus rhythm with sinus arrhythmia with 1st degree A-V block Left axis deviation Right bundle branch block Inferior infarct , age undetermined Anterolateral infarct , age undetermined Abnormal ECG Confirmed by AI RAZO, BUSHRA ([id number]), editor news RONEL NAVAS ([id number]) on 10/21/2018 9:57:42 AM Referred By: Love Christine Confirmed By:BUSHRA CLOUD MD
[2018-10-18] MEDS: Piperacil/Tazobactam 4.5 GM in NS100 MBP IV (17:09)
--- NOTE | 2018-10-18 17:43 | NURSING ---
ICU CHANGE IN MENTAL STATUS, HYPOTENSION, LACTIC ACIDOSIS ASHELFAH
--- NOTE | 2018-10-18 17:51 | PCM.HP.STD ---
Problem List (1) Status post placement of implantable loop recorder Status: Chronic (2) BPH (benign prostatic hyperplasia) Status: Chronic (3) COPD (chronic obstructive pulmonary disease) Status: Chronic (4) Type II diabetes mellitus, uncontrolled Status: Chronic (5) HLD (hyperlipidemia) Status: Chronic Qualifiers: (6) HTN (hypertension) Status: Chronic Qualifiers: (7) NILO (obstructive sleep apnea) Status: Chronic Comment: BiPAP ST 18/12 cm of water (8) Chronic renal failure, stage 3 (moderate) Status: Chronic History of Present Illness Date of Admission: 10/18/18 Chief Complaint: Weakness, reported change in mental status. The patient is a 77 year old M with multiple medical comorbidities as mentioned above presented to the medicine because of weakness and change in mental status. The patient is very poor informant and was not able to provide any significant information. His was at the bedside and also was not helpful in providing consistent history. According to his , patient went to physical therapy today and he was very weak, could not do therapy and according to him, he was unresponsive. When I asked the what she means by unresponsive, she mentioned that he was very weak, could not ambulate but he was alert and awake. At this time, patient is alert and oriented x3. He denied any pain. He denied chest pain, abdominal pain, shortness of breath, nausea or vomiting. He denies cough or sputum production. He had a history of uncontrolled type 2 diabetes mellitus, has been on insulin and his last hemoglobin A1c was 10.4 on June 2018. He had a history of chronic respiratory failure secondary to COPD and obstructive sleep apnea and he has been on oxygen at home at 2 L. He had a history of stage III chronic kidney disease and his creatinine has been around 1.5 to 1.9 mg/dL, admission creatinine is 2.19. 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 In the emergency department, patient was hypotensive, it was blood pressure was 86/50, slightly improved after IV fluid bolus. He was afebrile, not tachycardic, pulse ox was 97% on 2 L. Routine brother presumably for leukocytosis, hemoglobin of 8.3 g/dL, BUN of 64 and creatinine of 2.19. His lactic acid was 2.3. EKG revealed sinus rhythm with first-degree AV block, WV interval of 238 ms, right bundle branch block, no acute ischemic changes. Troponin was negative. BNP was normal. Chest x-ray revealed cardiomegaly, no acute findings. CT scan brain showed no acute findings. CT scan abdomen and pelvis again showed no acute intra-abdominal pathology, chronic findings reviewed. He is being admitted for hypotension of unknown etiology, mild lactic acidosis likely due to tissue hypoperfusion, I doubt acute infectious process and also found to have anemia and acute kidney injury on top of stage III chronic kidney disease. 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) BPH (benign prostatic hyperplasia) (Chronic) Super obesity (Chronic) Noncompliance (Chronic) with CPAP and follow up and with diet COPD (chronic obstructive pulmonary disease) (Chronic) Type II diabetes mellitus, uncontrolled (Chronic) History of depression (Chronic) History of other venous thrombosis and embolism (Chronic) HLD (hyperlipidemia) (Chronic) HTN (hypertension) (Chronic) NILO (obstructive sleep apnea) (Chronic) BiPAP ST 18/12 cm of water Chronic renal failure, stage 3 (moderate) (Chronic) Bifascicular bundle branch block (Chronic) Colon polyps (Chronic) Family history of colon cancer (Chronic) Medical History: Medical History (Last Updated 10/18/18 @ 19:19 by Love Christine MD) Status post placement of implantable loop recorder (Chronic) Z95.818 Thromboembolism (Chronic) I74.9 BPH (benign prostatic hyperplasia) (Chronic) N40.0 Super obesity (Chronic) E66.9 Noncompliance (Chronic) Z91.19 with CPAP and follow up and with diet COPD (chronic obstructive pulmonary disease) (Chronic) J44.9 Type II diabetes mellitus, uncontrolled (Chronic) E11.65 History of depression (Chronic) Z86.59 History of other venous thrombosis and embolism (Chronic) Z86.718 HLD (hyperlipidemia) (Chronic) E78.5 HTN (hypertension) (Chronic) I10 NILO (obstructive sleep apnea) (Chronic) G47.[address] 18/12 cm of water Chronic renal failure, stage 3 (moderate) (Chronic) N18.3 Bifascicular bundle branch block (Chronic) I45.2 Colon polyps (Chronic) Family history of colon cancer (Chronic) Z80.0 Allergies MARGIE Inhibitors Allergy (Unknown, Verified 09/23/18 13:15) Unknown cefepime Allergy (Verified 09/23/18 13:15) Other WEAKNESS & FALLING ipodate [Ipodate] Allergy (Verified 09/23/18 13:15) Shortness of breath levofloxacin [Levofloxacin] Allergy (Verified 09/23/18 13:15) Anaphylaxis lisinopril Allergy (Verified 09/23/18 13:15) Shortness of breath ofloxacin Allergy (Verified 09/23/18 13:15) Unknown Quinolones Allergy (Verified 09/23/18 13:15) Anaphylaxis Home Medications: Ambulatory Orders Medication Instructions Recorded Atorvastatin Calcium [Lipitor] 40 mg PO QHS 05/29/15 Citalopram [Celexa] 40 mg PO DAILY 05/29/15 Tamsulosin HCl [Flomax] 0.8 mg PO DAILY 07/08/16 Losartan Potassium [Cozaar] 100 mg PO DAILY 07/24/17 albuterol sulfate 90 mcg/actuation 2 puff INHALATION Q4H PRN #1 ea 02/08/18 breath activated powder inhaler Gabapentin [Neurontin] 300 mg PO 1700,2200 03/11/18 Isosorbide Mononitrate [Imdur] 30 mg PO DAILY 03/12/18 Apixaban [Eliquis] 5 mg PO BID #60 tab 03/15/18 Insulin Lispro [Humalog KwikPen] 20 unit SQ TIDCM 09/16/18 Naproxen [Naprosyn] 500 mg PO BID PRN #20 tab 09/23/18 metoprolol succinate ER 25 mg 25 mg PO DAILY tab 09/23/18 tablet,extended release 24 hr Surgical History: - - Circumcision, excision of kidney stone Psychiatric History: No pertinent psych hx Lives: Spouse/ Significant Other Smoking Status: Former smoker Alcohol: None Drugs: None - *Family History Maternal Family History: Family History (Last Reviewed 06/16/18 @ 14:31 by BETTYE Aguilera) Father Colon cancer Mother Cancer Sister CAD (coronary artery disease) History Items: Cancer - Patient's mother of cancer but he is not sure what kind of cancer. Paternal Family History: Family History (Last Reviewed 06/16/18 @ 14:31 by BETTYE Aguilera) Father Colon cancer Mother Cancer Sister CAD (coronary artery disease) History Items: Cancer - Father of colon cancer Offspring Family History: Family History (Last Reviewed 06/16/18 @ 14:31 by BETTYE Aguilera) Father Colon cancer Mother Cancer Sister CAD (coronary artery disease) History Items: - - He has a son who is morbidly obese and suffers from breathing problems and heart problems. Review of Systems Constitutional: Reports: Anorexia, Weakness, Fatigue. Denies: Chills, Fever Eyes: Denies: Blurred vision, Double vision, Drainage, Redness HEENT: Denies: Difficulty Hearing, Ear Pain, Eye Pain, Nasal Congestion, Sore Throat Cardiovascular: Denies: Chest Pain, Chest Pressure, Chest Tightness, Light Headedness, Palpitations, Paroxysmal Noc. Dyspnea, Syncope Respiratory: Denies: Cough, Pleuritic Pain, Shortness of Breath, Sputum production, Wheezing Gastrointestinal: Denies: Abdominal Pain, Constipation, Diarrhea, Hematemesis, Hematochezia, Nausea, Melena, Vomiting Genitourinary: Denies: Dysuria, Frequency, Hematuria Musculoskeletal: Denies: Arm Pain, Back Pain, Foot Pain Skin: Denies: Dryness, Rash Neurological: Denies: Balance problems, Double vision, Change in Speech, Slurred speech, Confusion, Headaches, Incoordination, Numbness Psychiatric: Denies: Anxiety, Depression Endocrine: Denies: Change in Body Habitus, Polydipsia VTE Information - Inpt Only VTE Present on Admission: No VTE Mechan Device Prophylaxis: None VTE Pharm Prophylaxis ordered?: No - Physical Exam General: Alert, Oriented x3, Cooperative, No apparent distress HEENT: Atraumatic, PERRLA, EOMI, Normocephalic Oral: Moist Mucosa, No Gingival or Mucosal Lesions/ Ulcerations Neck: Supple, No JVD, Negative Carotid Bruits, Trachea Midline, Thyroid Normal Size and Texture Lungs: Clear to auscultation, No rhonchi, No wheeze, No rales, Diminished Cardiovascular: Regular rate, Regular Rhythm, Normal S1, Normal S2, PMI Normal Abdomen: Bowel Sounds Present, Soft, Non Tender, Non-Distended, No Hepato-splenomegaly, Obese Extremities: No clubbing, No cyanosis, Edema - Trace edema, stasis dermatitis. Skin: No rashes, No breakdown Lymphatic: No Cervical, Supraclavicular, or Inguinal Adenopathy Neurological: Cranial nerves II-XII grossly intact, Motor Exam 5/5 strength throughout Psych/Mental Status: Flat Affect, Alert and oriented to time, place, person, mood and affect Vital Signs Temp Pulse Resp BP Pulse Ox 98.2 F 71 12 90/47 L 97 10/18/18 17:00 10/18/18 17:00 10/18/18 17:00 10/18/18 17:00 10/18/18 17:00 Oxygen Flow Rate (L/min) 2 Oxygen Delivery Method Nasal Cannula Weight: 360 lb 14.347 oz Body Mass Index (BMI) 48.9 Finger Stick Blood Glucose 357 Laboratory Tests Past 24 Hrs 10/18/18 10/18/18 10/18/18 15:35 15:35 15:35 WBC 13.0 H RBC 3.03 L Hgb 8.3 L Hct 26.2 L MCV 86.5 MCH 27.4 MCHC 31.7 L RDW 13.5 RDW Differential 42.9 Plt Count 401 MPV 9.0 Immature Gran % (Auto) 0.300 Neut % (Auto) 80.9 H Lymph % (Auto) 9.8 L [place] % (Auto) 7.6 Eos % (Auto) 1.0 Baso % (Auto) 0.4 Absolute Neuts (auto) 10.5 H Absolute Lymphs (auto) 1.27 Total Counted Not Reportable PT 19.8 H INR 1.7 APTT 53.7 H Sodium 138 Potassium 4.5 Chloride 109 H Carbon Dioxide 21.0 Anion Gap 8 BUN 64 H Creatinine 2.19 H Estim Creat Clear Calc 31.00 Est GFR (MDRD) Af Amer 38 L Est GFR (MDRD) Non-Af 31 L BUN/Creatinine Ratio 29.2 H Glucose 167 H Lactic Acid Calcium 8.5 Total Bilirubin 0.20 AST 30 ALT 38 Alkaline Phosphatase 119 H Troponin I < 0.015 B-Natriuretic Peptide Total Protein 6.8 Albumin 1.9 L Globulin 4.9 H Albumin/Globulin Ratio 0.4 L Ethyl Alcohol 10/18/18 10/18/18 10/18/18 15:35 15:35 15:40 WBC RBC Hgb Hct MCV MCH MCHC RDW RDW Differential Plt Count MPV Immature Gran % (Auto) Neut % (Auto) Lymph % (Auto) [place] % (Auto) Eos % (Auto) Baso % (Auto) Absolute Neuts (auto) Absolute Lymphs (auto) Total Counted PT INR APTT Sodium Potassium Chloride Carbon Dioxide Anion Gap BUN Creatinine Estim Creat Clear Calc Est GFR (MDRD) Af Amer Est GFR (MDRD) Non-Af BUN/Creatinine Ratio Glucose Lactic Acid 2.3 H Calcium Total Bilirubin AST ALT Alkaline Phosphatase Troponin I B-Natriuretic Peptide 10.8 Total Protein Albumin Globulin Albumin/Globulin Ratio Ethyl Alcohol 9.0 POC Glucose 10/18/18 15:33 POC Glucose 172 H Clinical Impression(s) from Imaging Studies Chest X-Ray 10/18/18 15:37 IMPRESSION: No acute findings Electronically Signed: Gregorio Young DO at 16:07 EDT Tel , Service support , Brain CT 10/18/18 15:44 IMPRESSION: Chronic involutional changes of the brain. Electronically Signed: Gregorio Young DO at 16:28 EDT Tel , Service support , Abdomen/Pelvis CT 10/18/18 16:34 IMPRESSION: 1. Under distended bladder with appearance of circumferential wall thickening. Cystitis cannot be excluded 2. No evidence of small bowel obstruction. Unremarkable appendix 3. Presumed bilateral renal cysts, stable from prior exam. Nonobstructing right-sided nephroliths. Recommend correlation with renal ultrasound when possible Electronically Signed: Gregorio Young DO at 17:18 EDT Tel , Service support , Assessment/Plan This is a 77 years old male patient presented to the medicine because of reported change in mental status and profound weakness found to have hypotension and mild lactic acidosis as well as anemia double stage III chronic kidney disease. #1 hypotension: Unclear etiology, patient has been having issues with low blood pressure, had recent implantable loop recorder as outpatient that supposed to be interrogated 2 weeks ago but it did not. EKG revealed sinus rhythm with first-degree AV block, right bundle branch block, no acute changes. Patient received bolus of IV fluids, blood pressure minimally improved. Chest x-ray showed no acute findings. Troponin is negative. Plan: Admit to ICU, critical care monitoring, continue IV fluids, input output chart, hold losartan, metoprolol and nitrates, critical care consult, start empiric IV antibiotics with IV Zosyn, blood and urine cultures, will request interrogation of the loop recorder, repeat CBC and CMP tomorrow morning as well as INR, PT OT evaluation and treatment. #2 mild lactic acidosis: Patient denies any symptoms suggestive of infection. Chest x-ray showed no acute findings. Urinalysis was not done because nursing staff could not get a urine sample. At this time, I doubt any infectious process and this might be lactic acidosis likely due to tissue hypoperfusion secondary to hypotension. Plan: IV fluids as above, repeat lactic acid in 3 hours, urine culture, blood culture, start IV Zosyn empirically. #3 acute normocytic anemia: This is fairly acute, hemoglobin was 14.4 g/dL a month ago. Patient denies any bleeding from any orifices. Platelet count is normal, INR is 1.7. Patient has been on Eliquis. Plan: Serum iron, TIBC, ferritin, serum folate, B12, stool for occult blood, transfuse if hemoglobin less than 8 g/dL. #4 acute kidney injury double stage III chronic kidney disease: Baseline creatinine has been around 1.8 mg/dL. Admission creatinine is 2.19, it is up from baseline likely because of tissue hypoperfusion. Plan: IV fluids as above, input output chart, repeat CMP tomorrow morning. #5 type 2 diabetes mellitus: Uncontrolled, A1c was 10.4 on December,. Plan: ADA diet, Accu-Cheks, exercising scale, continue Humalog insulin 3 times daily. #6 hypertension: Blood pressure is low as above, plan to hold all antihypertensive medications as above. #7 chronic respiratory failure/COPD/obstructive sleep apnea: On home oxygen at 2 L. At this time, he denied any worsening shortness of breath. Chest x-ray reviewed as above. Plan for DuoNeb every 6 hours, albuterol as needed, oxygen to keep O2 saturation more than 92%. #8 benign prostatic hypertrophy: Continue Flomax. #9 history of DVT/PE: Hold Eliquis for now, INR 1.7. #10 DVT prophylaxis: INR is 1.7. #11 CODE STATUS: Full code. Discussed with the patient's himself and his . This note was generated with [employer] dictation software. It may contain incorrect words, spelling, and punctuation that were not noted in checking the note before signing. Code Visit Inpatient E&M: 87088 Init Hosp L3
[2018-10-18 19:49] LABS: Reflex Lactate? Y
[2018-10-18 20:14] LABS: Bacteria 0 SEEN /hpf (None Seen); Mucous, Urine 0 SEEN /hpf (<or=2+); Squamous Epithelial Cells - UA 0 SEEN /hpf (0-5)
[2018-10-18 20:18] LABS: Color, Urine Yellow (Yellow); Glucose, Dipstick Normal (Normal); Ketone-Dipstick Negative (Negative); Leukocyte Esterase-Dipstick 500 /ul (Negative); Nitrite-Dipstick Negative (Negative); Occult Blood-Urine 250 /ul (Negative); Protein-Dipstick 30 mg/dl (Negative); Urine Bilirubin Dipstick Negative (Negative); Urine Clarity Sl. Cloudy (Clear); Urine Urobilinogen Normal (Normal)
[2018-10-18 20:25] LABS: Red Blood Cells-Urine 50-100 SEEN /hpf (0-5); White Blood Cells 10-25 SEEN /hpf (0-5)
[2018-10-18 20:27] LABS: Amphetamine Urine VISTA NEGATIVE (<1000 ng/mL); Barbiturate Urine VISTA NEGATIVE (< 200 ng/mL); Benzodiazepine Urine VISTA NEGATIVE (< 200 ng/mL); Cocaine Urine VISTA NEGATIVE (< 300 ng/mL); Ecstacy Urine VISTA NEGATIVE (< 500 ng/mL); Methadone Urine VISTA NEGATIVE (< 300 ng/mL); PCP Urine VISTA NEGATIVE (< 25 ng/mL); THC Urine VISTA NEGATIVE (< 50 ng/mL); Vista UDS pH Range 5
[2018-10-18 20:32] LABS: Ferritin 380 ng/mL (26-388); Iron 29 ug/dL (65-175); Iron Binding Capacity,Total 166 ug/dL (250-450); PERCENT IRON SATURATION 17.5 % (15.0-55.0)
[2018-10-18 20:47] LABS: Lactic Acid 1.1 mmol/L (0.4-2.0)
[2018-10-18] MEDS: 0.9% Normal Saline 1,000 ML 125 ML IV (20:58)
[2018-10-18] MEDS: Gabapentin 300 MG Capsule PO (21:06)
[2018-10-18] MEDS: Atorvastatin Calcium 40 MG Tablet PO (21:06)
[2018-10-18 21:10] LABS: Bedside Glucose 144 mg/dL (70-110)
[2018-10-18 21:11] LABS: Vitamin B12 247 pg/mL (211-911)
--- NOTE | 2018-10-18 21:50 | NURSING ---
Pt mentioned that he has a loop recorder, placed by 's office. Per pt, recorder was placed d/t frequent unexplained falls at home.
--- NOTE | 2018-10-18 22:40 | CPS ---
Pt home BiPap injection molding machine tender at pt bedside. nursing aware.
[2018-10-19] VITALS (23 sets, daily range): BP systolic 125–178; BP diastolic 49–96; PULSE 67–86; RESP 13–18; TEMP 36.4–37.7; O2SAT 95–100
[2018-10-19 04:31] LABS: Absolute Lymphocyte Count 1.07 X10^3/ul (0.83-4.51); Absolute Neutrophil Count 6.8 X10^3/uL (2.0-7.7); Basophil# 0.02 X10^3/uL; Basophil% 0.2 % (0-1); Eosinophil# 0.12 X10^3/uL; Eosinophils% 1.4 % (0-5); Hematocrit 23.5 % (40-54); Hemoglobin 7.2 g/dl (13.0-16.5); Lymphocyte # 1.07 X10^3/ul (4.0); Lymphocyte % 12.3 % (19-41); Mean Corp Hgb Conc 30.6 g/gl (32-36); Mean Corpuscular Hgb 26.7 pg (27.0-32.0); Mean Platelet Vol. 9.1 fl (6.2-12.0); Monocyte# 0.63 X10^3/uL; Monocyte% 7.3 % (0-10); Neutrophil # 6.81 X10^3/uL (2.7-7.7); Neutrophil % 78.5 % (47-70); Platelet Count 382 K/mm3 (150-450); RBC Distribution Width CV 12.9 % (11.6-14.6); RBC Distribution Width SD 39.3 fl (35.1-43.9); White Blood Count 8.7 K/mm3 (4.4-11.0)
[2018-10-19 04:33] LABS: POSITIVE COUNT NO; POSITIVE DIFFERENTIAL NO; POSITIVE MORPHOLOGY NO
[2018-10-19 04:37] LABS: Anion Gap 9 (5-15); BUN 55 mg/dL (7-18); BUN/Creat Ratio 30.4 RATIO (10-20); Calcium,Total 8.1 mg/dL (8.5-10.1); Chloride 114 mmol/L (98-107); Creatinine, Serum 1.81 mg/dL (0.70-1.30); EST Glomerular Filtration Rate 39 mL/min (>60); Est Glom Filt Rate - Afr Amer 47 mL/min (>60); Estimated Creatinine Clearance 37.51 ml/min; Glucose 146 mg/dL (74-106); Potassium 4.1 mmol/L (3.5-5.1); Sodium Level 144 mmol/L (136-145)
[2018-10-19 04:44] LABS: International Normalized Ratio 1.7; Prothrombin Time (Protime)PT. 19.6 SECONDS (11.7-14.9)
[2018-10-19] MEDS: 0.9% Normal Saline 1,000 ML 125 ML IV ×3 (04:48→21:31)
[2018-10-19] MEDS: 0.9% NaCl Peripheral Flush Adult/Peds IV (05:02)
[2018-10-19] MEDS: Ipratropium/Albuterol Sulfate 3 ML AMPUL.NEB INHALATION ×2 (07:05→18:47)
[2018-10-19 07:06] LABS: Bedside Glucose 144 mg/dL (70-110)
--- NOTE | 2018-10-19 08:45 | PCM.PN.HOSP ---
Patient Problems: Active and Suspected Problems (Last Updated 10/18/18 @ 19:19 by Love Christine MD) Acute blood loss anemia (Acute) MARLON (acute kidney injury) (Acute) Hypotension (Acute) Subjective: Complains of bilateral shoulder pain, chronic. Denies any melena nor hematochezia. Vitals/I&O's: Vital Signs Temp Pulse Resp BP Pulse Ox 37.6 C H 73 16 125/77 H 99 10/19/18 06:00 10/19/18 07:13 10/19/18 07:05 10/19/18 07:00 10/19/18 07:06 Oxygen Flow Rate (L/min) 2 Oxygen Delivery Method Room Air Weight: 161.8 kg Body Mass Index (BMI) 48.4 Finger Stick Blood Glucose 357 Intake and Output for Last 24 Hours 10/17/18 10/18/18 10/19/18 23:59 23:59 23:59 Intake Total 530 / 530 1048 / 1048 Output Total 1000 / 1000 1150 / 1150 Balance -470 / -470 -102 / -102 General: Alert, No apparent distress HEENT: Atraumatic, Normocephalic Oral: Moist Mucosa, No Gingival or Mucosal Lesions/ Ulcerations Neck: No Nodes, Thyroid Normal Size and Texture Lungs: Clear to auscultation, Normal air movement, No rhonchi, No wheeze Cardiovascular: Regular rate, Regular Rhythm, Normal S1, Normal S2, No murmurs Abdomen: Bowel Sounds Present, Soft, Non Tender, Non-Distended, No Hepato-splenomegaly Extremities: No edema, No Calf Tenderness Skin: No rashes, No breakdown Musculoskeletal: No Tenderness to Palpation of Joints or Extremities, No Muscle Wasting Neurological: Muscle tone normal, Sensory exam intact to light touch and pain Psych/Mental Status: Normal Affect, Appropriate Microbiology Past 72 Hours 10/18/18 20:40 Stool Stool Occult Blood (SPENCER) - Final 10/18/18 18:00 Stool Stool Occult Blood (SPENCER) - Final Laboratory Results 10/18/18 15:33: POC Glucose 172 H 10/18/18 15:35: WBC 13.0 H, RBC 3.03 L, Hgb 8.3 L, Hct 26.2 L, MCV 86.5, MCH 27.4, MCHC 31.7 L, RDW 13.5, RDW Differential 42.9, Plt Count 401, MPV 9.0, Immature Gran % (Auto) 0.300, Neut % (Auto) 80.9 H, Lymph % (Auto) 9.8 L, [place] % (Auto) 7.6, Eos % (Auto) 1.0, Baso % (Auto) 0.4, Absolute Neuts (auto) 10.5 H, Absolute Lymphs (auto) 1.27, Total Counted Not Reportable 10/18/18 15:35: PT 19.8 H, INR 1.7, APTT 53.7 H 10/18/18 15:35: Sodium 138, Potassium 4.5, Chloride 109 H, Carbon Dioxide 21.0, Anion Gap 8, BUN 64 H, Creatinine 2.19 H, Estim Creat Clear Calc 31.00, Est GFR (MDRD) Af Amer 38 L, Est GFR (MDRD) Non-Af 31 L, BUN/Creatinine Ratio 29.2 H, Glucose 167 H, Calcium 8.5, Total Bilirubin 0.20, AST 30, ALT 38, Alkaline Phosphatase 119 H, Troponin I < 0.015, Total Protein 6.8, Albumin 1.9 L, Globulin 4.9 H, Albumin/Globulin Ratio 0.4 L 10/18/18 15:35: Ethyl Alcohol 9.0 10/18/18 15:35: B-Natriuretic Peptide 10.8 10/18/18 15:35: Iron 29 L, TIBC 166 L, Iron Saturation 17.5, Ferritin 380 10/18/18 15:40: Lactic Acid 2.3 H 10/18/18 18:25: Blood Type A NEGATIVE, Antibody Screen NEGATIVE 10/18/18 20:00: Urine Opiates Screen NEGATIVE, Urine Methadone Screen NEGATIVE, Ur Barbiturates Screen NEGATIVE, Ur Phencyclidine Scrn NEGATIVE, Ur Amphetamines Screen NEGATIVE, U Methamphetamin-MDMA NEGATIVE, U Benzodiazepines Scrn NEGATIVE, Urine Cocaine Screen NEGATIVE, U Cannabinoids Screen NEGATIVE, Ur Drug Screen Comment 10/18/18 20:00: Urine Color Yellow, Urine Clarity Sl. Cloudy, Urine pH 6.0, Ur Specific [place] 1.010, Urine Protein 30 H, Urine Glucose (UA) Normal, Urine Ketones Negative, Urine Occult Blood 250 H, Urine Nitrite Negative, Urine Bilirubin Negative, Urine Urobilinogen Normal, Ur Leukocyte Esterase 500 H, Urine RBC 50-100 SEEN, Urine WBC 10-25 SEEN, Ur Squamous Epith Cells 0 SEEN, Urine Bacteria 0 SEEN, Urine Mucus 0 SEEN 10/18/18 20:10: Vitamin B12 247 10/18/18 20:10: RBC Folate Hemolysate Pending, RBC Folate Pending, Hematocrit Pending 10/18/18 20:10: Transferrin Pending 10/18/18 20:10: Lactic Acid 1.1 10/18/18 20:57: POC Glucose 144 H 10/19/18 04:10: WBC 8.7, RBC 2.70 L, Hgb 7.2 L, Hct 23.5 L, MCV 87.0, MCH 26.7 L, MCHC 30.6 L, RDW 12.9, RDW Differential 39.3, Plt Count 382, MPV 9.1, Immature Gran % (Auto) 0.300, Neut % (Auto) 78.5 H, Lymph % (Auto) 12.3 L, [place] % (Auto) 7.3, Eos % (Auto) 1.4, Baso % (Auto) 0.2, Absolute Neuts (auto) 6.8, Absolute Lymphs (auto) 1.07, Total Counted Not Reportable 10/19/18 04:10: PT 19.6 H, INR 1.7 10/19/18 04:10: Sodium 144, Potassium 4.1, Chloride 114 H, Carbon Dioxide 21.0, Anion Gap 9, BUN 55 H, Creatinine 1.81 H, Estim Creat Clear Calc 37.51, Est GFR (MDRD) Af Amer 47 L, Est GFR (MDRD) Non-Af 39 L, BUN/Creatinine Ratio 30.4 H, Glucose 146 H, Calcium 8.1 L 10/19/18 06:58: POC Glucose 144 H Current Medications Albuterol Sulfate (Ventolin Aerosols) 2.5 mg INHALATION Q4H PRN PRN PRN Reason: Shortness of breath, wheezing Albuterol/Ipratropium (Duoneb) 3 ml INHALATION Q6H.RT FERNANDO Last Admin: 10/19/18 07:05 Dose: 3 ml Atorvastatin Calcium (Lipitor) 40 mg PO QHS [facility] Last Admin: 10/18/18 21:06 Dose: 40 mg Gabapentin (Neurontin) 300 mg PO 1700,2200 [facility] Last Admin: 10/18/18 21:06 Dose: 300 mg Sodium Chloride () 1,000 mls @ 125 mls/hr IV .Q8H [facility] Last Admin: 10/19/18 04:48 Dose: 125 mls/hr Piperacillin Sod/Tazobactam (Sod 3.375 gm/ Sodium Chloride) 50 mls @ 12.5 mls/hr IV Q8 FERNANDO Last Admin: 10/19/18 05:01 Dose: 12.5 mls/hr Insulin Human Lispro (Humalog Kwikpen (Bkc)) 0 unit SC ACHS FERNANDO; Protocol Last Admin: 10/19/18 07:55 Dose: Not Given Insulin Human Lispro (Humalog Kwikpen (Bkc)) 20 unit SC TIDCM [facility] Magnesium Hydroxide (Milk Of Magnesia) 30 ml PO DAILY PRN PRN PRN Reason: Constipation Sodium Chloride () 5 - 15 ml IV UD PRN PRN Reason: SALINE FLUSH Last Admin: 10/19/18 05:02 Dose: 10 ml Tamsulosin HCl (Flomax) 0.8 mg PO DAILY [facility] Medical Necessity - Tobacco Use Smoking Status: Former smoker Tobacco Use: Cigars Assessment/Plan All Active Problems (Last Updated 10/18/18 @ 19:19 by Love Christine MD) Acute blood loss anemia (Acute) MARLON (acute kidney injury) (Acute) Hypotension (Acute) 1. Hypotension: resolved doubt septic etiology, therefore, will dc Zosyn may be due to volume depletion and anemia continue to hold losartan and imdur for now 2. Acute blood loss anemia Hg went from 14.4 on 09.16.18 to 7.2 today Apixaban held check hemoccult start PPI consult general surgery for evaluation for endoscopy (BRANDEN Panda) 3. MARLON resolved, back to baseline suspect prerenal 4. DM2 uncontrolled only on Humalog here and at home start basal 5. VTE apixaban held due to ABLA 6. VTE proph: SCDs Transfer out of ICU to PCU. Code Visit Inpatient E&M: 65236 Subs Hosp L3
--- NOTE | 2018-10-19 08:58 | PN_ITS ---
Patient Problems: Active and Suspected Problems (Last Updated 10/18/18 @ 19:19 by Love Christine MD) Acute blood loss anemia (Acute) MARLON (acute kidney injury) (Acute) Hypotension (Acute) Subjective: Complains of bilateral shoulder pain, chronic. Denies any melena nor hematochezia. Vitals/I&O's: Vital Signs Temp Pulse Resp BP Pulse Ox 37.6 C H 73 16 125/77 H 99 10/19/18 06:00 10/19/18 07:13 10/19/18 07:05 10/19/18 07:00 10/19/18 07:06 Oxygen Flow Rate (L/min) 2 Oxygen Delivery Method Room Air Weight: 161.8 kg Body Mass Index (BMI) 48.4 Finger Stick Blood Glucose 357 Intake and Output for Last 24 Hours 10/17/18 10/18/18 10/19/18 23:59 23:59 23:59 Intake Total 530 / 530 1048 / 1048 Output Total 1000 / 1000 1150 / 1150 Balance -470 / -470 -102 / -102 General: Alert, No apparent distress HEENT: Atraumatic, Normocephalic Oral: Moist Mucosa, No Gingival or Mucosal Lesions/ Ulcerations Neck: No Nodes, Thyroid Normal Size and Texture Lungs: Clear to auscultation, Normal air movement, No rhonchi, No wheeze Cardiovascular: Regular rate, Regular Rhythm, Normal S1, Normal S2, No murmurs Abdomen: Bowel Sounds Present, Soft, Non Tender, Non-Distended, No Hepato- splenomegaly Extremities: No edema, No Calf Tenderness Skin: No rashes, No breakdown Musculoskeletal: No Tenderness to Palpation of Joints or Extremities, No Muscle Wasting Neurological: Muscle tone normal, Sensory exam intact to light touch and pain Psych/Mental Status: Normal Affect, Appropriate Microbiology Past 72 Hours 10/18/18 20:40 Stool Stool Occult Blood (SPENCER) - Final 10/18/18 18:00 Stool Stool Occult Blood (SPENCER) - Final Laboratory Results 10/18/18 15:33: POC Glucose 172 H 10/18/18 15:35: WBC 13.0 H, RBC 3.03 L, Hgb 8.3 L, Hct 26.2 L, MCV 86.5, MCH 27.4, MCHC 31.7 L, RDW 13.5, RDW Differential 42.9, Plt Count 401, MPV 9.0, Immature Gran % (Auto) 0.300, Neut % (Auto) 80.9 H, Lymph % (Auto) 9.8 L, [place] % (Auto) 7.6, Eos % (Auto) 1.0, Baso % (Auto) 0.4, Absolute Neuts (auto) 10.5 H, Absolute Lymphs (auto) 1.27, Total Counted Not Reportable 10/18/18 15:35: PT 19.8 H, INR 1.7, APTT 53.7 H 10/18/18 15:35: Sodium 138, Potassium 4.5, Chloride 109 H, Carbon Dioxide 21.0, Anion Gap 8, BUN 64 H, Creatinine 2.19 H, Estim Creat Clear Calc 31.00, Est GFR (MDRD) Af Amer 38 L, Est GFR (MDRD) Non-Af 31 L, BUN/Creatinine Ratio 29.2 H, Glucose 167 H, Calcium 8.5, Total Bilirubin 0.20, AST 30, ALT 38, Alkaline Phosphatase 119 H, Troponin I < 0.015, Total Protein 6.8, Albumin 1.9 L, Globulin 4.9 H, Albumin/Globulin Ratio 0.4 L 10/18/18 15:35: Ethyl Alcohol 9.0 10/18/18 15:35: B-Natriuretic Peptide 10.8 10/18/18 15:35: Iron 29 L, TIBC 166 L, Iron Saturation 17.5, Ferritin 380 10/18/18 15:40: Lactic Acid 2.3 H 10/18/18 18:25: Blood Type A NEGATIVE, Antibody Screen NEGATIVE 10/18/18 20:00: Urine Opiates Screen NEGATIVE, Urine Methadone Screen NEGATIVE, Ur Barbiturates Screen NEGATIVE, Ur Phencyclidine Scrn NEGATIVE, Ur Amphetamines Screen NEGATIVE, U Methamphetamin-MDMA NEGATIVE, U Benzodiazepines Scrn NEGATIVE, Urine Cocaine Screen NEGATIVE, U Cannabinoids Screen NEGATIVE, Ur Drug Screen Comment 10/18/18 20:00: Urine Color Yellow, Urine Clarity Sl. Cloudy, Urine pH 6.0, Ur Specific [place] 1.010, Urine Protein 30 H, Urine Glucose (UA) Normal, Urine Ketones Negative, Urine Occult Blood 250 H, Urine Nitrite Negative, Urine Bilirubin Negative, Urine Urobilinogen Normal, Ur Leukocyte Esterase 500 H, Urine RBC 50-100 SEEN, Urine WBC 10-25 SEEN, Ur Squamous Epith Cells 0 SEEN, Urine Bacteria 0 SEEN, Urine Mucus 0 SEEN 10/18/18 20:10: Vitamin B12 247 10/18/18 20:10: RBC Folate Hemolysate Pending, RBC Folate Pending, Hematocrit Pending 10/18/18 20:10: Transferrin Pending 10/18/18 20:10: Lactic Acid 1.1 10/18/18 20:57: POC Glucose 144 H 10/19/18 04:10: WBC 8.7, RBC 2.70 L, Hgb 7.2 L, Hct 23.5 L, MCV 87.0, MCH 26.7 L , MCHC 30.6 L, RDW 12.9, RDW Differential 39.3, Plt Count 382, MPV 9.1, Immature Gran % (Auto) 0.300, Neut % (Auto) 78.5 H, Lymph % (Auto) 12.3 L, [place] % (Auto) 7.3, Eos % (Auto) 1.4, Baso % (Auto) 0.2, Absolute Neuts (auto) 6.8, Absolute Lymphs (auto) 1.07, Total Counted Not Reportable 10/19/18 04:10: PT 19.6 H, INR 1.7 10/19/18 04:10: Sodium 144, Potassium 4.1, Chloride 114 H, Carbon Dioxide 21.0, Anion Gap 9, BUN 55 H, Creatinine 1.81 H, Estim Creat Clear Calc 37.51, Est GFR (MDRD) Af Amer 47 L, Est GFR (MDRD) Non-Af 39 L, BUN/Creatinine Ratio 30.4 H, Glucose 146 H, Calcium 8.1 L 10/19/18 06:58: POC Glucose 144 H Current Medications Albuterol Sulfate (Ventolin Aerosols) 2.5 mg INHALATION Q4H PRN PRN PRN Reason: Shortness of breath, wheezing Albuterol/Ipratropium (Duoneb) 3 ml INHALATION Q6H.RT FERNANDO Last Admin: 10/19/18 07:05 Dose: 3 ml Atorvastatin Calcium (Lipitor) 40 mg PO QHS [facility] Last Admin: 10/18/18 21:06 Dose: 40 mg Gabapentin (Neurontin) 300 mg PO 1700,2200 [facility] Last Admin: 10/18/18 21:06 Dose: 300 mg Sodium Chloride () 1,000 mls @ 125 mls/hr IV .Q8H [facility] Last Admin: 10/19/18 04:48 Dose: 125 mls/hr Piperacillin Sod/Tazobactam (Sod 3.375 gm/ Sodium Chloride) 50 mls @ 12.5 mls/hr IV Q8 FERNANDO Last Admin: 10/19/18 05:01 Dose: 12.5 mls/hr Insulin Human Lispro (Humalog Kwikpen (Bkc)) 0 unit SC ACHS FERNANDO; Protocol Last Admin: 10/19/18 07:55 Dose: Not Given Insulin Human Lispro (Humalog Kwikpen (Bkc)) 20 unit SC TIDCM [facility] Magnesium Hydroxide (Milk Of Magnesia) 30 ml PO DAILY PRN PRN PRN Reason: Constipation Sodium Chloride () 5 - 15 ml IV UD PRN PRN Reason: SALINE FLUSH Last Admin: 10/19/18 05:02 Dose: 10 ml Tamsulosin HCl (Flomax) 0.8 mg PO DAILY [facility] Medical Necessity - Tobacco Use Smoking Status: Former smoker Tobacco Use: Cigars Assessment/Plan All Active Problems (Last Updated 10/18/18 @ 19:19 by Love Christine MD) Acute blood loss anemia (Acute) MARLON (acute kidney injury) (Acute) Hypotension (Acute) 1. Hypotension: * resolved * doubt septic etiology, therefore, will dc Zosyn * may be due to volume depletion and anemia * continue to hold losartan and imdur for now 2. Acute blood loss anemia * Hg went from 14.4 on 09.16.18 to 7.2 today * Apixaban held * check hemoccult * start PPI * consult general surgery for evaluation for endoscopy (BRANDEN Panda) 3. MARLON * resolved, back to baseline * suspect prerenal 4. DM2 * uncontrolled * only on Humalog here and at home * start basal 5. VTE * apixaban held due to ABLA 6. VTE proph: SCDs Transfer out of ICU to PCU. Code Visit Inpatient E&M: [id number] [facility] L3
--- NOTE | 2018-10-19 10:33 | CASEMGMT ---
RN CM Assessment Presentation: Hypotension, lactic acidosis, MARLON Intro role of CM and purpose of RN CM assessment. Pt is sleepy, able to participate in assessment, but slow to answer. RN CM called Rhina to verify demographics, PCP and Pharmacy was updated. Per , pt is independent @ home, though he has difficulty getting around home and outside. states he has walker and cane, but generally does not use, though she feels he could benefit from using DME. PCP: Dr. Wili Nelson Preferred Pharmacy: [facility] in [place]. Insurance: [facility] Prescription Benefit: yes LNOK: tracy Lantigua Living Arrangements: one story home with basement. Pt/ state pt is independent in showering, dressing. Does not require assist for general care needs. Transportation: pt drives occasionally or grandson provides transportation. DME: walker, cane, Cpap through [employer]. inquired re: upright walker for patient. Call to [employer] to request information on this. RN CM let know this is generally not covered under insurance and are provided by private companies. Information printed for two companies that provide [employer] and placed in pt's folder. states she will look into this when pt is discharged. HHC: none Patient DC goals: Home DC PLAN: undetermined. PT/OT evaluations pending. Tigist MCKNIGHT RN ACM
--- NOTE | 2018-10-19 11:00 | PCM.CONS.GEN ---
Problem List (1) Acute blood loss anemia Status: Acute Reason for Consult Date of Consultation: 10/19/18 Reason for Consultation: Acute anemia History of Present Illness: The patient is a 77 year old M who presented to the ED with change in mental status, weakness and difficulty walking. During his hospitalization, he has was noted to have a decrease in hemoglobin. Patient denies change in bowel habits, melena, bright red blood per rectum, GERD, hematemesis. He denies previous blood transfusion. He denies previous scopes. He notes his father had history of colon cancer. He notes having a loop recorder. He is maintained on Eliquis for previous history of pulmonary embolus. He has sleep apnea. Patient denies previous myocardial infarction. He is a poor historian. He denies previous abdominal surgery history. 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) BPH (benign prostatic hyperplasia) (Chronic) Super obesity (Chronic) Noncompliance (Chronic) with CPAP and follow up and with diet COPD (chronic obstructive pulmonary disease) (Chronic) Type II diabetes mellitus, uncontrolled (Chronic) History of depression (Chronic) History of other venous thrombosis and embolism (Chronic) HLD (hyperlipidemia) (Chronic) HTN (hypertension) (Chronic) NILO (obstructive sleep apnea) (Chronic) BiPAP ST 18/12 cm of water Chronic renal failure, stage 3 (moderate) (Chronic) Bifascicular bundle branch block (Chronic) Colon polyps (Chronic) Family history of colon cancer (Chronic) Medical History: Medical History (Last Reviewed 10/19/18 @ 13:05 by Lissette Taveras PA-C) Status post placement of implantable loop recorder (Chronic) Z95.818 Thromboembolism (Chronic) I74.9 BPH (benign prostatic hyperplasia) (Chronic) N40.0 Super obesity (Chronic) E66.9 Noncompliance (Chronic) Z91.19 with CPAP and follow up and with diet COPD (chronic obstructive pulmonary disease) (Chronic) J44.9 Type II diabetes mellitus, uncontrolled (Chronic) E11.65 History of depression (Chronic) Z86.59 History of other venous thrombosis and embolism (Chronic) Z86.718 HLD (hyperlipidemia) (Chronic) E78.5 HTN (hypertension) (Chronic) I10 NILO (obstructive sleep apnea) (Chronic) G47.[address] 18/12 cm of water Chronic renal failure, stage 3 (moderate) (Chronic) N18.3 Bifascicular bundle branch block (Chronic) I45.2 Colon polyps (Chronic) Family history of colon cancer (Chronic) Z80.0 Allergies MARGIE Inhibitors Allergy (Unknown, Verified 09/23/18 13:15) Unknown cefepime Allergy (Verified 09/23/18 13:15) Other WEAKNESS & FALLING ipodate [Ipodate] Allergy (Verified 09/23/18 13:15) Shortness of breath levofloxacin [Levofloxacin] Allergy (Verified 09/23/18 13:15) Anaphylaxis lisinopril Allergy (Verified 09/23/18 13:15) Shortness of breath ofloxacin Allergy (Verified 09/23/18 13:15) Unknown Quinolones Allergy (Verified 09/23/18 13:15) Anaphylaxis Home Medications: Ambulatory Orders Medication Instructions Recorded Atorvastatin Calcium [Lipitor] 40 mg PO QHS 05/29/15 Citalopram [Celexa] 40 mg PO DAILY 05/29/15 Tamsulosin HCl [Flomax] 0.8 mg PO DAILY 07/08/16 Losartan Potassium [Cozaar] 100 mg PO DAILY 07/24/17 albuterol sulfate 90 mcg/actuation 2 puff INHALATION Q4H PRN #1 ea 02/08/18 breath activated powder inhaler Gabapentin [Neurontin] 300 mg PO 1700,2200 03/11/18 Isosorbide Mononitrate [Imdur] 30 mg PO DAILY 03/12/18 Apixaban [Eliquis] 5 mg PO BID #60 tab 03/15/18 Insulin Lispro [Humalog KwikPen] 20 unit SQ TIDCM 09/16/18 Naproxen [Naprosyn] 500 mg PO BID PRN #20 tab 09/23/18 metoprolol succinate ER 25 mg 25 mg PO DAILY tab 09/23/18 tablet,extended release 24 hr Surgical History: - - Circumcision, excision of kidney stone Psychiatric History: No pertinent psych hx Lives: Spouse/ Significant Other Smoking Status: Former smoker Tobacco Use: Cigars Alcohol: None Drugs: None - *Family History Maternal Family History: Family History (Last Reviewed 06/16/18 @ 14:31 by BETTYE Aguilera) Father Colon cancer Mother Cancer Sister CAD (coronary artery disease) History Items: Cancer - Patient's mother of cancer but he is not sure what kind of cancer. Paternal Family History: Family History (Last Reviewed 06/16/18 @ 14:31 by BETTYE Aguilera) Father Colon cancer Mother Cancer Sister CAD (coronary artery disease) History Items: Cancer - Father of colon cancer Offspring Family History: Family History (Last Reviewed 06/16/18 @ 14:31 by BETTYE Aguilera) Father Colon cancer Mother Cancer Sister CAD (coronary artery disease) History Items: - - He has a son who is morbidly obese and suffers from breathing problems and heart problems. Review of Systems Constitutional: Reports: Anorexia, Weakness HEENT: Denies: Head Aches, Sinus Congestion, Sinus Drainage Cardiovascular: Denies: Chest Pain, Palpitations Respiratory: Denies: Cough, Shortness of breath at rest, Sputum production Gastrointestinal: Denies: Abdominal Pain, Nausea, Vomiting Genitourinary: Denies: Dysuria Musculoskeletal: Denies: Joint Pain, Joint Tenderness Skin: Denies: Rash, Wounds Neurological: Reports: Balance problems, Confusion. Denies: Focal weakness, Numbness, Tingling Psychiatric: Reports: Depression Hematologic/ Lymphatic: Reports: Easy Bruising, Easy Bleeding, Hx of blood clot. Denies: Hx of blood transfusion Patient Problems: Active and Suspected Problems (Last Updated 10/18/18 @ 19:19 by Love Christine MD) Hypotension (Acute) MARLON (acute kidney injury) (Acute) Acute blood loss anemia (Acute) - Physical Exam General: Alert, Oriented x3, Cooperative HEENT: Atraumatic, PERRLA, EOMI, Normocephalic Neck: Supple, No JVD, Negative Carotid Bruits Lungs: Diminished - bilateral lower lobes Cardiovascular: Regular Rhythm, Tachycardic Abdomen: Bowel Sounds Present, Soft, Non Tender, Obese Extremities: No edema, Capillary Refill Less than 3 Seconds Skin: No rashes, No breakdown Musculoskeletal: No Tenderness to Palpation of Joints or Extremities Neurological: Neuro grossly intact Psych/Mental Status: Appropriate, Depressed Vital Signs Temp Pulse Resp BP Pulse Ox 99.8 F H 72 18 135/66 H 100 04/30/19 08:00 10/19/18 08:00 10/19/18 08:00 10/19/18 08:00 10/19/18 08:00 Oxygen Flow Rate (L/min) 2 Oxygen Delivery Method Room Air Weight: 356 lb 11.327 oz Body Mass Index (BMI) 48.4 Finger Stick Blood Glucose 357 Intake and Output for Last 24 Hours 10/17/18 10/18/18 10/19/18 23:59 23:59 23:59 Intake Total 530 / 530 1048 / 1048 Output Total 1000 / 1000 1150 / 1150 Balance -470 / -470 -102 / -102 Microbiology Past 72 Hours 10/18/18 20:40 Stool Occult Blood (SPENCER) - Final Stool 10/18/18 18:00 Stool Occult Blood (SPENCER) - Final Stool Laboratory Tests Past 24 Hrs 10/18/18 10/18/18 10/18/18 15:35 15:35 15:35 WBC 13.0 H RBC 3.03 L Hgb 8.3 L Hct 26.2 L MCV 86.5 MCH 27.4 MCHC 31.7 L RDW 13.5 RDW Differential 42.9 Plt Count 401 MPV 9.0 Immature Gran % (Auto) 0.300 Neut % (Auto) 80.9 H Lymph % (Auto) 9.8 L [place] % (Auto) 7.6 Eos % (Auto) 1.0 Baso % (Auto) 0.4 Absolute Neuts (auto) 10.5 H Absolute Lymphs (auto) 1.27 Total Counted Not Reportable PT 19.8 H INR 1.7 APTT 53.7 H Sodium 138 Potassium 4.5 Chloride 109 H Carbon Dioxide 21.0 Anion Gap 8 BUN 64 H Creatinine 2.19 H Estim Creat Clear Calc 31.00 Est GFR (MDRD) Af Amer 38 L Est GFR (MDRD) Non-Af 31 L BUN/Creatinine Ratio 29.2 H Glucose 167 H Lactic Acid Calcium 8.5 Iron TIBC Iron Saturation Transferrin Ferritin Total Bilirubin 0.20 AST 30 ALT 38 Alkaline Phosphatase 119 H Troponin I < 0.015 B-Natriuretic Peptide Total Protein 6.8 Albumin 1.9 L Globulin 4.9 H Albumin/Globulin Ratio 0.4 L Vitamin B12 RBC Folate Hemolysate RBC Folate Hematocrit Urine Color Urine Clarity Urine pH Ur Specific [place] Urine Protein Urine Glucose (UA) Urine Ketones Urine Occult Blood Urine Nitrite Urine Bilirubin Urine Urobilinogen Ur Leukocyte Esterase Urine RBC Urine WBC Ur Squamous Epith Cells Urine Bacteria Urine Mucus Urine Opiates Screen Urine Methadone Screen Ur Barbiturates Screen Ur Phencyclidine Scrn Ur Amphetamines Screen U Methamphetamin-MDMA U Benzodiazepines Scrn Urine Cocaine Screen U Cannabinoids Screen Ur Drug Screen Comment Ethyl Alcohol Blood Type Antibody Screen Crossmatch 10/18/18 10/18/18 10/18/18 15:35 15:35 15:35 WBC RBC Hgb Hct MCV MCH MCHC RDW RDW Differential Plt Count MPV Immature Gran % (Auto) Neut % (Auto) Lymph % (Auto) [place] % (Auto) Eos % (Auto) Baso % (Auto) Absolute Neuts (auto) Absolute Lymphs (auto) Total Counted PT INR APTT Sodium Potassium Chloride Carbon Dioxide Anion Gap BUN Creatinine Estim Creat Clear Calc Est GFR (MDRD) Af Amer Est GFR (MDRD) Non-Af BUN/Creatinine Ratio Glucose Lactic Acid Calcium Iron 29 L TIBC 166 L Iron Saturation 17.5 Transferrin Ferritin 380 Total Bilirubin AST ALT Alkaline Phosphatase Troponin I B-Natriuretic Peptide 10.8 Total Protein Albumin Globulin Albumin/Globulin Ratio Vitamin B12 RBC Folate Hemolysate RBC Folate Hematocrit Urine Color Urine Clarity Urine pH Ur Specific [place] Urine Protein Urine Glucose (UA) Urine Ketones Urine Occult Blood Urine Nitrite Urine Bilirubin Urine Urobilinogen Ur Leukocyte Esterase Urine RBC Urine WBC Ur Squamous Epith Cells Urine Bacteria Urine Mucus Urine Opiates Screen Urine Methadone Screen Ur Barbiturates Screen Ur Phencyclidine Scrn Ur Amphetamines Screen U Methamphetamin-MDMA U Benzodiazepines Scrn Urine Cocaine Screen U Cannabinoids Screen Ur Drug Screen Comment Ethyl Alcohol 9.0 Blood Type Antibody Screen Crossmatch 10/18/18 10/18/18 10/18/18 15:40 18:25 18:25 WBC RBC Hgb Hct MCV MCH MCHC RDW RDW Differential Plt Count MPV Immature Gran % (Auto) Neut % (Auto) Lymph % (Auto) [place] % (Auto) Eos % (Auto) Baso % (Auto) Absolute Neuts (auto) Absolute Lymphs (auto) Total Counted PT INR APTT Sodium Potassium Chloride Carbon Dioxide Anion Gap BUN Creatinine Estim Creat Clear Calc Est GFR (MDRD) Af Amer Est GFR (MDRD) Non-Af BUN/Creatinine Ratio Glucose Lactic Acid 2.3 H Calcium Iron TIBC Iron Saturation Transferrin Ferritin Total Bilirubin AST ALT Alkaline Phosphatase Troponin I B-Natriuretic Peptide Total Protein Albumin Globulin Albumin/Globulin Ratio Vitamin B12 RBC Folate Hemolysate RBC Folate Hematocrit Urine Color Urine Clarity Urine pH Ur Specific [place] Urine Protein Urine Glucose (UA) Urine Ketones Urine Occult Blood Urine Nitrite Urine Bilirubin Urine Urobilinogen Ur Leukocyte Esterase Urine RBC Urine WBC Ur Squamous Epith Cells Urine Bacteria Urine Mucus Urine Opiates Screen Urine Methadone Screen Ur Barbiturates Screen Ur Phencyclidine Scrn Ur Amphetamines Screen U Methamphetamin-MDMA U Benzodiazepines Scrn Urine Cocaine Screen U Cannabinoids Screen Ur Drug Screen Comment Ethyl Alcohol Blood Type A NEGATIVE Antibody Screen NEGATIVE Crossmatch See Detail 10/18/18 10/18/18 10/18/18 20:00 20:00 20:10 WBC RBC Hgb Hct MCV MCH MCHC RDW RDW Differential Plt Count MPV Immature Gran % (Auto) Neut % (Auto) Lymph % (Auto) [place] % (Auto) Eos % (Auto) Baso % (Auto) Absolute Neuts (auto) Absolute Lymphs (auto) Total Counted PT INR APTT Sodium Potassium Chloride Carbon Dioxide Anion Gap BUN Creatinine Estim Creat Clear Calc Est GFR (MDRD) Af Amer Est GFR (MDRD) Non-Af BUN/Creatinine Ratio Glucose Lactic Acid Calcium Iron TIBC Iron Saturation Transferrin Ferritin Total Bilirubin AST ALT Alkaline Phosphatase Troponin I B-Natriuretic Peptide Total Protein Albumin Globulin Albumin/Globulin Ratio Vitamin B12 247 RBC Folate Hemolysate RBC Folate Hematocrit Urine Color Yellow Urine Clarity Sl. Cloudy Urine pH 6.0 Ur Specific [place] 1.010 Urine Protein 30 H Urine Glucose (UA) Normal Urine Ketones Negative Urine Occult Blood 250 H Urine Nitrite Negative Urine Bilirubin Negative Urine Urobilinogen Normal Ur Leukocyte Esterase 500 H Urine RBC 50-100 SEEN Urine WBC 10-25 SEEN Ur Squamous Epith Cells 0 SEEN Urine Bacteria 0 SEEN Urine Mucus 0 SEEN Urine Opiates Screen NEGATIVE Urine Methadone Screen NEGATIVE Ur Barbiturates Screen NEGATIVE Ur Phencyclidine Scrn NEGATIVE Ur Amphetamines Screen NEGATIVE U Methamphetamin-MDMA NEGATIVE U Benzodiazepines Scrn NEGATIVE Urine Cocaine Screen NEGATIVE U Cannabinoids Screen NEGATIVE Ur Drug Screen Comment Ethyl Alcohol Blood Type Antibody Screen Crossmatch 10/18/18 10/18/18 10/18/18 20:10 20:10 20:10 WBC RBC Hgb Hct MCV MCH MCHC RDW RDW Differential Plt Count MPV Immature Gran % (Auto) Neut % (Auto) Lymph % (Auto) [place] % (Auto) Eos % (Auto) Baso % (Auto) Absolute Neuts (auto) Absolute Lymphs (auto) Total Counted PT INR APTT Sodium Potassium Chloride Carbon Dioxide Anion Gap BUN Creatinine Estim Creat Clear Calc Est GFR (MDRD) Af Amer Est GFR (MDRD) Non-Af BUN/Creatinine Ratio Glucose Lactic Acid 1.1 Calcium Iron TIBC Iron Saturation Transferrin Pending Ferritin Total Bilirubin AST ALT Alkaline Phosphatase Troponin I B-Natriuretic Peptide Total Protein Albumin Globulin Albumin/Globulin Ratio Vitamin B12 RBC Folate Hemolysate Pending RBC Folate Pending Hematocrit Pending Urine Color Urine Clarity Urine pH Ur Specific [place] Urine Protein Urine Glucose (UA) Urine Ketones Urine Occult Blood Urine Nitrite Urine Bilirubin Urine Urobilinogen Ur Leukocyte Esterase Urine RBC Urine WBC Ur Squamous Epith Cells Urine Bacteria Urine Mucus Urine Opiates Screen Urine Methadone Screen Ur Barbiturates Screen Ur Phencyclidine Scrn Ur Amphetamines Screen U Methamphetamin-MDMA U Benzodiazepines Scrn Urine Cocaine Screen U Cannabinoids Screen Ur Drug Screen Comment Ethyl Alcohol Blood Type Antibody Screen Crossmatch 10/19/18 10/19/18 10/19/18 04:10 04:10 04:10 WBC 8.7 RBC 2.70 L Hgb 7.2 L Hct 23.5 L MCV 87.0 MCH 26.7 L MCHC 30.6 L RDW 12.9 RDW Differential 39.3 Plt Count 382 MPV 9.1 Immature Gran % (Auto) 0.300 Neut % (Auto) 78.5 H Lymph % (Auto) 12.3 L [place] % (Auto) 7.3 Eos % (Auto) 1.4 Baso % (Auto) 0.2 Absolute Neuts (auto) 6.8 Absolute Lymphs (auto) 1.07 Total Counted Not Reportable PT 19.6 H INR 1.7 APTT Sodium 144 Potassium 4.1 Chloride 114 H Carbon Dioxide 21.0 Anion Gap 9 BUN 55 H Creatinine 1.81 H Estim Creat Clear Calc 37.51 Est GFR (MDRD) Af Amer 47 L Est GFR (MDRD) Non-Af 39 L BUN/Creatinine Ratio 30.4 H Glucose 146 H Lactic Acid Calcium 8.1 L Iron TIBC Iron Saturation Transferrin Ferritin Total Bilirubin AST ALT Alkaline Phosphatase Troponin I B-Natriuretic Peptide Total Protein Albumin Globulin Albumin/Globulin Ratio Vitamin B12 RBC Folate Hemolysate RBC Folate Hematocrit Urine Color Urine Clarity Urine pH Ur Specific [place] Urine Protein Urine Glucose (UA) Urine Ketones Urine Occult Blood Urine Nitrite Urine Bilirubin Urine Urobilinogen Ur Leukocyte Esterase Urine RBC Urine WBC Ur Squamous Epith Cells Urine Bacteria Urine Mucus Urine Opiates Screen Urine Methadone Screen Ur Barbiturates Screen Ur Phencyclidine Scrn Ur Amphetamines Screen U Methamphetamin-MDMA U Benzodiazepines Scrn Urine Cocaine Screen U Cannabinoids Screen Ur Drug Screen Comment Ethyl Alcohol Blood Type Antibody Screen Crossmatch POC Glucose 10/19/18 10/18/18 10/18/18 06:58 20:57 15:33 POC Glucose 144 H 144 H 172 H Assessment/Plan All Active Problems (Last Updated 10/18/18 @ 19:19 by Love Christine MD) Hypotension (Acute) MARLON (acute kidney injury) (Acute) Acute blood loss anemia (Acute) I have been consulted in conjunction with Dr. Panda Impression: Acute anemia Plan: I have discussed this patient with Dr. Panda. Dr. Panda will plan to perform an upper and lower scope. Procedure details, risks and benefits have been explained. We will use Golytely for bowel prep. Clear liquids today. NPO at midnight. Plan for upper/lower scope scheduled for tomorrow morning. Patient has had the opportunity to ask and have questions answered. Patient verbally understands and agrees with the plan. Thank you for allowing us to participate in this patient's care. Code Visit Office Visits / Consults: [id number] IP Consult L3
[2018-10-19] MEDS: Tamsulosin HCl 0.4 MG Capsule 0.8 MG PO (11:25)
[2018-10-19 11:59] LABS: Absolute Lymphocyte Count 0.76 X10^3/ul (0.83-4.51); Absolute Neutrophil Count 5.8 X10^3/uL (2.0-7.7); Basophil# 0.03 X10^3/uL; Basophil% 0.4 % (0-1); Eosinophil# 0.11 X10^3/uL; Eosinophils% 1.5 % (0-5); Hematocrit 22.9 % (40-54); Hemoglobin 7.4 g/dl (13.0-16.5); Lymphocyte # 0.76 X10^3/ul (4.0); Lymphocyte % 10.6 % (19-41); Mean Corp Hgb Conc 32.3 g/gl (32-36); Mean Corpuscular Hgb 27.4 pg (27.0-32.0); Mean Corpuscular Volume 84.8 fL (80-94); Mean Platelet Vol. 8.5 fl (6.2-12.0); Monocyte# 0.43 X10^3/uL; Neutrophil # 5.83 X10^3/uL (2.7-7.7); Neutrophil % 81.4 % (47-70); Platelet Count 325 K/mm3 (150-450); RBC Distribution Width CV 13.5 % (11.6-14.6); RBC Distribution Width SD 41.4 fl (35.1-43.9); White Blood Count 7.2 K/mm3 (4.4-11.0)
[2018-10-19 12:10] LABS: POSITIVE COUNT NO; POSITIVE DIFFERENTIAL NO; POSITIVE MORPHOLOGY NO
[2018-10-19 12:36] LABS: Bedside Glucose 152 mg/dL (70-110)
[2018-10-19] MEDS: Electrolyte Solution/Peg's 4000 ML PO (14:30)
[2018-10-19 16:15] LABS: Bedside Glucose 219 mg/dL (70-110)
[2018-10-19] MEDS: Gabapentin 300 MG Capsule PO ×2 (17:16→21:23)
[2018-10-19] MEDS: Insulin Lispro 100 UNIT/ML INSULN.PEN SC ×2 (17:20→21:23)
[2018-10-19] MEDS: Atorvastatin Calcium 40 MG Tablet PO (21:23)
[2018-10-19 22:46] LABS: Bedside Glucose 224 mg/dL (70-110)
[2018-10-20] VITALS (23 sets, daily range): BP systolic 116–168; BP diastolic 53–83; PULSE 70–93; RESP 16–22; TEMP 36.4–37.2; O2SAT 93–99; BMI 48.8
--- NOTE | 2018-10-20 03:00 | NURSING ---
This RN took over care of patient.
[2018-10-20] MEDS: 0.9% Normal Saline 1,000 ML 125 ML IV ×2 (05:07→12:48)
[2018-10-20 06:54] LABS: Absolute Neutrophil Count 5.1 X10^3/uL (2.0-7.7); Basophil# 0.03 X10^3/uL; Basophil% 0.4 % (0-1); Eosinophil# 0.23 X10^3/uL; Eosinophils% 3.4 % (0-5); Hematocrit 21.9 % (40-54); Lymphocyte % 13.2 % (19-41); Mean Corpuscular Hgb 27.3 pg (27.0-32.0); Mean Corpuscular Volume 85.5 fL (80-94); Mean Platelet Vol. 8.4 fl (6.2-12.0); Monocyte# 0.57 X10^3/uL; Monocyte% 8.4 % (0-10); Neutrophil # 5.06 X10^3/uL (2.7-7.7); Neutrophil % 74.3 % (47-70); POSITIVE COUNT NO; POSITIVE DIFFERENTIAL NO; POSITIVE MORPHOLOGY NO; Platelet Count 336 K/mm3 (150-450); RBC Distribution Width CV 13.5 % (11.6-14.6); RBC Distribution Width SD 41.3 fl (35.1-43.9); Red Blood Count 2.56 M/mm3 (4.6-6.2); White Blood Count 6.8 K/mm3 (4.4-11.0)
[2018-10-20 07:01] LABS: Bedside Glucose 143 mg/dL (70-110)
[2018-10-20 07:17] LABS: Anion Gap 7 (5-15); BUN 30 mg/dL (7-18); BUN/Creat Ratio 20.3 RATIO (10-20); Calcium,Total 8.2 mg/dL (8.5-10.1); Chloride 112 mmol/L (98-107); Creatinine, Serum 1.48 mg/dL (0.70-1.30); EST Glomerular Filtration Rate 49 mL/min (>60); Est Glom Filt Rate - Afr Amer 59 mL/min (>60); Estimated Creatinine Clearance 45.88 ml/min; Glucose 151 mg/dL (74-106); Potassium 3.9 mmol/L (3.5-5.1); Sodium Level 142 mmol/L (136-145)
[2018-10-20] MEDS: Ipratropium/Albuterol Sulfate 3 ML AMPUL.NEB INHALATION ×3 (07:35→19:40)
[2018-10-20 08:56] LABS: Transferrin 130 mg/dL (200-370)
--- NOTE | 2018-10-20 10:45 | IMM_PTH ---
PATIENT: WADE HERNANDEZ LOC: PCU U#:[id number] AGE/SX: 77/M ROOM: [facility] RE10/18/[address]: Dr. Jaja Nielson MD : 1940 BED: 1 DIS: 10/22/2018 SPEC #: [id number] RECD: 10/20/18 15:15 STATUS: SOUT REQ #: [id number] ASHLEY: 10/20/18 10:[address]: Mitchell Panda DEPT: IMMUNOHISTOCHEMISTRY RECD BY: Renetta Delaney ENTERED: 10/20/18 15:15 SP TYPE: IMMUNO OTHR DR: DO Dr. Love Hernandez MD Dr. Mark Stutzman, DO Tissues: Stomach, NOS Procedures: H Pylori (initial) PHYSICIAN & INSTITUTION [place] [address] SPECIMEN INFORMATION: Tissue Source: Antrum biopsy Clinical Info: Acute blood loss anemia Specimen Number: [id number] CPT code: 89482 METHODOLOGY: Deparaffinized sections of prefer/formalin-fixed tissue or PAP/DQ stained slides are incubated with monoclonal/polyclonal antibodies/oligonucleotide probes. Localization is made via biotin free immunoperoxidase method. Appropriate controls are performed and reacted as expected. Results on target cell population are indicated in the following table: RESULTS: ANTIBODY / CLONE RESULT H Pylori (polyclonal) negative These tests were developed and their performance characteristics determined by [facility]. They may not have been cleared or approved by the U.S. Food and Drug Administration. The FDA has determined that such clearance or approval is not necessary. INTERPRETATION: Antrum biopsy: Immunohistochemical stain with appropriate control is negative for Helicobacter organisms. CE:don 10/21/18
--- NOTE | 2018-10-20 10:45 | EGD_PTH ---
PATIENT: WADE HERNANDEZ LOC: [facility] U#:[id number] AGE/SX: 77/M ROOM: [facility] RE10/18/[address]: Dr. Jaja Nielson MD : 1940 BED: 1 DIS: 10/22/2018 SPEC #: [id number] RECD: 10/20/18 13:05 STATUS: TITO REMary Jane #: [id number] ASHLEY: 10/20/18 10:[address]: Mitchell Panda DEPT: SURGICAL PATHOLOGY RECD BY: Kwaku Rizvi ENTERED: 10/20/18 13:55 SP TYPE: EGD BIOPSY [facility] DR: DO Dr. Love Hernandez MD Dr. Mark Stutzman, Tissues: Gastric mucous membrane Procedures: Surgery Specimen Level IV HEADER OPERATION: Colonoscopy, EGD ([facility]) PRE-OP DIAGNOSIS: Acute blood loss anemia TISSUE SUBMITTED: Antrum biopsy, histo and H. Pylori MICROSCOPIC DIAGNOSIS Antrum, biopsy: Mild chronic gastritis. CE:don 10/21/18 COMMENT The results of immunohistochemistry for Helicobacter pylori will be reported separately ([id number]). MICROSCOPIC DESCRIPTION Slides are reviewed. GROSS DESCRIPTION Received in fixative is one container labeled with the patient's name and designated antrum biopsy, histo and H. pylori. The specimen consists of one irregular fragment of light arteaga soft tissue that measures 0.6 x 0.3 x 0.1 cm. The specimen is totally submitted in one cassette. / SJ:don 10/20/18 TC:3 CPT: 05611
--- NOTE | 2018-10-20 11:28 | PCM.PN.HOSP ---
Patient Problems: Active and Suspected Problems (Last Reviewed 10/19/18 @ 13:05 by Lissette Taveras PA-C) Hypotension (Acute) MARLON (acute kidney injury) (Acute) Acute blood loss anemia (Acute) Subjective: Feels tired. Some RLQ abdominal pain. Denies melena/hematochezia. Vitals/I&O's: Vital Signs Temp Pulse Resp BP Pulse Ox 37.1 C 85 18 153/81 H 98 10/20/18 10:42 10/20/18 10:42 10/20/18 10:42 10/20/18 10:42 10/20/18 10:42 Oxygen Flow Rate (L/min) 2 Oxygen Delivery Method Room Air Weight: 163.3 kg Body Mass Index (BMI) 48.8 Finger Stick Blood Glucose 357 Intake and Output for Last 24 Hours 10/18/18 10/19/18 10/20/18 23:59 23:59 23:59 Intake Total 530 / 530 3157 / 3157 2653 / 2653 Output Total 1000 / 1000 3300 / 3300 1750 / 1750 Balance -470 / -470 -143 / -143 903 / 903 General: Alert, No apparent distress HEENT: Atraumatic, Normocephalic Oral: Moist Mucosa, No Gingival or Mucosal Lesions/ Ulcerations Neck: No Nodes, Thyroid Normal Size and Texture Lungs: Clear to auscultation, Normal air movement, No rhonchi, No wheeze Cardiovascular: Regular rate, Regular Rhythm, Normal S1, Normal S2, No murmurs Abdomen: Bowel Sounds Present, Soft, Non Tender, Non-Distended, No Hepato-splenomegaly Extremities: No Calf Tenderness, Edema Skin: No rashes, No breakdown Psych/Mental Status: Normal Affect, Appropriate Microbiology Past 72 Hours 10/18/18 20:00 Urine, Catheterized Urine Culture - Final Pseudomonas aeroginosa 10/18/18 15:40 Blood Culture (Wb) - Left Hand Blood Culture - Preliminary Coag Negative Staph 10/20/18 02:16 Stool Stool Occult Blood (SPENCER) - Final 10/18/18 20:40 Stool Stool Occult Blood (SPENCER) - Final 10/18/18 18:00 Stool Stool Occult Blood (SPENCER) - Final Laboratory Results 10/18/18 18:25: Crossmatch See Detail 10/18/18 20:10: Transferrin 130 L 10/19/18 11:22: POC Glucose 152 H 10/19/18 11:45: WBC 7.2, RBC 2.70 L, Hgb 7.4 L, Hct 22.9 L, MCV 84.8, MCH 27.4, MCHC 32.3, RDW 13.5, RDW Differential 41.4, Plt Count 325, MPV 8.5, Immature Gran % (Auto) 0.100, Neut % (Auto) 81.4 H, Lymph % (Auto) 10.6 L, [place] % (Auto) 6.0, Eos % (Auto) 1.5, Baso % (Auto) 0.4, Absolute Neuts (auto) 5.8, Absolute Lymphs (auto) 0.76 L, Total Counted Not Reportable 10/19/18 16:09: POC Glucose 219 H 10/19/18 21:20: POC Glucose 224 H 10/20/18 06:35: WBC 6.8, RBC 2.56 L, Hgb 7.0 L, Hct 21.9 L, MCV 85.5, MCH 27.3, MCHC 32.0, RDW 13.5, RDW Differential 41.3, Plt Count 336, MPV 8.4, Immature Gran % (Auto) 0.300, Neut % (Auto) 74.3 H, Lymph % (Auto) 13.2 L, [place] % (Auto) 8.4, Eos % (Auto) 3.4, Baso % (Auto) 0.4, Absolute Neuts (auto) 5.1, Absolute Lymphs (auto) 0.90, Total Counted Not Reportable 10/20/18 06:35: Sodium 142, Potassium 3.9, Chloride 112 H, Carbon Dioxide 23.0, Anion Gap 7, BUN 30 H, Creatinine 1.48 H, Estim Creat Clear Calc 45.88, Est GFR (MDRD) Af Amer 59 L, Est GFR (MDRD) Non-Af 49 L, BUN/Creatinine Ratio 20.3 H, Glucose 151 H, Calcium 8.2 L 10/20/18 06:52: POC Glucose 143 H Current Medications Acetaminophen (Tylenol) 650 mg PO Q6H PRN PRN PRN Reason: PAIN Albuterol Sulfate (Ventolin Aerosols) 2.5 mg INHALATION Q4H PRN PRN PRN Reason: Shortness of breath, wheezing Albuterol/Ipratropium (Duoneb) 3 ml INHALATION Q6H.RT [facility] Last Admin: 10/20/18 07:35 Dose: 3 ml Atorvastatin Calcium (Lipitor) 40 mg PO QHS [facility] Last Admin: 10/19/18 21:23 Dose: 40 mg Dextrose (D50w Syringe) 0 gm IV X1 PRN; Protocol PRN Reason: Hypoglycemia Gabapentin (Neurontin) 300 mg PO 1700,2200 [facility] Last Admin: 10/19/18 21:23 Dose: 300 mg Glucagon () 1 mg IM .X1 PRN PRN Reason: Hypoglycemia Sodium Chloride () 1,000 mls @ 125 mls/hr IV .Q8H [facility] Last Admin: 10/20/18 05:07 Dose: 125 mls/hr Insulin Glargine (Lantus (Bkc)) 20 units SC BREAKFAST [facility] Last Admin: 10/19/18 11:27 Dose: 20 units Insulin Human Lispro (Humalog Kwikpen (Bkc)) 0 unit SC ACHS [facility]; Protocol Last Admin: 10/19/18 21:23 Dose: 2 units Insulin Human Lispro (Humalog Kwikpen (Bkc)) 15 unit SC TIDAC [facility] Last Admin: 10/19/18 17:15 Dose: Not Given Magnesium Hydroxide (Milk Of Magnesia) 30 ml PO DAILY PRN PRN PRN Reason: Constipation Sodium Chloride () 5 - 15 ml IV UD PRN PRN Reason: SALINE FLUSH Last Admin: 10/19/18 05:02 Dose: 10 ml Tamsulosin HCl (Flomax) 0.8 mg PO DAILY [facility] Last Admin: 10/19/18 11:25 Dose: 0.8 mg Medical Necessity - Tobacco Use Smoking Status: Former smoker Tobacco Use: Cigars Assessment/Plan All Active Problems (Last Reviewed 10/19/18 @ 13:05 by Lissette Taveras PA-C) Hypotension (Acute) MARLON (acute kidney injury) (Acute) Acute blood loss anemia (Acute) 1. 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 UA, however, was unremarkable for infection. Therefore, continue to hold off on abx. 2. Acute blood loss anemia Hg went from 14.4 on 09.16.18 to 7 today Will transfuse 1 unit PRBCs today Apixaban held check hemoccult start PPI consult general surgery for evaluation for endoscopy to have EGD and c-scope today 3. MARLON resolved, back to baseline suspect prerenal 4. DM2 uncontrolled only on Humalog here and at home start basal 5. VTE apixaban held due to ABLA 6. VTE proph: SCDs Code Visit Inpatient E&M: 48568 Subs Hosp L2
--- NOTE | 2018-10-20 11:32 | OP.ENDO_ITS ---
10/20/2018 Wili Nelson [address] [place] [address] Re : Upper GI endoscopy procedure for David Louis Dear Dr. Nelson This procedure was performed on Saturday, October 20, 2018. My impressions and recommendations are as follows: Impressions : - Normal esophagus. - Normal stomach. Biopsied. - One non-bleeding duodenal ulcer with adherent clot. No specimens collected. Recommendations : - Return patient to [facility] for ongoing care. - Clear liquid diet. - Continue present medications. - Await pathology results. - Repeat upper endoscopy in 6 weeks for surveillance. - Return to my office in 1 week. My findings are described in the full procedure note, which is enclosed. If I can be of further assistance, please feel free to contact me at Doctor phone number(s): , Fax: [phone], Work: . Sincerely, MD Mitchell Voss MD 10/20/2018 11:32:32 AM This report has been signed electronically.
--- NOTE | 2018-10-20 11:32 | PN_ITS ---
Patient Problems: Active and Suspected Problems (Last Reviewed 10/19/18 @ 13:05 by Lissette Taveras PA-C) Hypotension (Acute) MARLON (acute kidney injury) (Acute) Acute blood loss anemia (Acute) Subjective: Feels tired. Some RLQ abdominal pain. Denies melena/hematochezia. Vitals/I&O's: Vital Signs Temp Pulse Resp BP Pulse Ox 37.1 C 85 18 153/81 H 98 10/20/18 10:42 10/20/18 10:42 10/20/18 10:42 10/20/18 10:42 10/20/18 10:42 Oxygen Flow Rate (L/min) 2 Oxygen Delivery Method Room Air Weight: 163.3 kg Body Mass Index (BMI) 48.8 Finger Stick Blood Glucose 357 Intake and Output for Last 24 Hours 10/18/18 10/19/18 10/20/18 23:59 23:59 23:59 Intake Total 530 / 530 3157 / 3157 2653 / 2653 Output Total 1000 / 1000 3300 / 3300 1750 / 1750 Balance -470 / -470 -143 / -143 903 / 903 General: Alert, No apparent distress HEENT: Atraumatic, Normocephalic Oral: Moist Mucosa, No Gingival or Mucosal Lesions/ Ulcerations Neck: No Nodes, Thyroid Normal Size and Texture Lungs: Clear to auscultation, Normal air movement, No rhonchi, No wheeze Cardiovascular: Regular rate, Regular Rhythm, Normal S1, Normal S2, No murmurs Abdomen: Bowel Sounds Present, Soft, Non Tender, Non-Distended, No Hepato- splenomegaly Extremities: No Calf Tenderness, Edema Skin: No rashes, No breakdown Psych/Mental Status: Normal Affect, Appropriate Microbiology Past 72 Hours 10/18/18 20:00 Urine, Catheterized Urine Culture - Final Pseudomonas aeroginosa 10/18/18 15:40 Blood Culture (Wb) - Left Hand Blood Culture - Preliminary Coag Negative Staph 10/20/18 02:16 Stool Stool Occult Blood (SPENCER) - Final 10/18/18 20:40 Stool Stool Occult Blood (SPENCER) - Final 10/18/18 18:00 Stool Stool Occult Blood (SPENCER) - Final Laboratory Results 10/18/18 18:25: Crossmatch See Detail 10/18/18 20:10: Transferrin 130 L 10/19/18 11:22: POC Glucose 152 H 10/19/18 11:45: WBC 7.2, RBC 2.70 L, Hgb 7.4 L, Hct 22.9 L, MCV 84.8, MCH 27.4, MCHC 32.3, RDW 13.5, RDW Differential 41.4, Plt Count 325, MPV 8.5, Immature Gran % (Auto) 0.100, Neut % (Auto) 81.4 H, Lymph % (Auto) 10.6 L, [place] % (Auto) 6.0, Eos % (Auto) 1.5, Baso % (Auto) 0.4, Absolute Neuts (auto) 5.8, Absolute Lymphs (auto) 0.76 L, Total Counted Not Reportable 10/19/18 16:09: POC Glucose 219 H 10/19/18 21:20: POC Glucose 224 H 10/20/18 06:35: WBC 6.8, RBC 2.56 L, Hgb 7.0 L, Hct 21.9 L, MCV 85.5, MCH 27.3, MCHC 32.0, RDW 13.5, RDW Differential 41.3, Plt Count 336, MPV 8.4, Immature Gran % (Auto) 0.300, Neut % (Auto) 74.3 H, Lymph % (Auto) 13.2 L, [place] % (Auto) 8.4, Eos % (Auto) 3.4, Baso % (Auto) 0.4, Absolute Neuts (auto) 5.1, Absolute Lymphs (auto) 0.90, Total Counted Not Reportable 10/20/18 06:35: Sodium 142, Potassium 3.9, Chloride 112 H, Carbon Dioxide 23.0, Anion Gap 7, BUN 30 H, Creatinine 1.48 H, Estim Creat Clear Calc 45.88, Est GFR (MDRD) Af Amer 59 L, Est GFR (MDRD) Non-Af 49 L, BUN/Creatinine Ratio 20.3 H, Glucose 151 H, Calcium 8.2 L 10/20/18 06:52: POC Glucose 143 H Current Medications Acetaminophen (Tylenol) 650 mg PO Q6H PRN PRN PRN Reason: PAIN Albuterol Sulfate (Ventolin Aerosols) 2.5 mg INHALATION Q4H PRN PRN PRN Reason: Shortness of breath, wheezing Albuterol/Ipratropium (Duoneb) 3 ml INHALATION Q6H.RT [facility] Last Admin: 10/20/18 07:35 Dose: 3 ml Atorvastatin Calcium (Lipitor) 40 mg PO QHS [facility] Last Admin: 10/19/18 21:23 Dose: 40 mg Dextrose (D50w Syringe) 0 gm IV X1 PRN; Protocol PRN Reason: Hypoglycemia Gabapentin (Neurontin) 300 mg PO 1700,2200 [facility] Last Admin: 10/19/18 21:23 Dose: 300 mg Glucagon () 1 mg IM .X1 PRN PRN Reason: Hypoglycemia Sodium Chloride () 1,000 mls @ 125 mls/hr IV .Q8H [facility] Last Admin: 10/20/18 05:07 Dose: 125 mls/hr Insulin Glargine (Lantus (Bkc)) 20 units SC BREAKFAST [facility] Last Admin: 10/19/18 11:27 Dose: 20 units Insulin Human Lispro (Humalog Kwikpen (Bkc)) 0 unit SC ACHS [facility]; Protocol Last Admin: 10/19/18 21:23 Dose: 2 units Insulin Human Lispro (Humalog Kwikpen (Bkc)) 15 unit SC TIDAC [facility] Last Admin: 10/19/18 17:15 Dose: Not Given Magnesium Hydroxide (Milk Of Magnesia) 30 ml PO DAILY PRN PRN PRN Reason: Constipation Sodium Chloride () 5 - 15 ml IV UD PRN PRN Reason: SALINE FLUSH Last Admin: 10/19/18 05:02 Dose: 10 ml Tamsulosin HCl (Flomax) 0.8 mg PO DAILY [facility] Last Admin: 10/19/18 11:25 Dose: 0.8 mg Medical Necessity - Tobacco Use Smoking Status: Former smoker Tobacco Use: Cigars Assessment/Plan All Active Problems (Last Reviewed 10/19/18 @ 13:05 by Lissette Taveras PA-C) Hypotension (Acute) MARLON (acute kidney injury) (Acute) Acute blood loss anemia (Acute) 1. 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 UA, however, was unremarkable for infection. Therefore, continue to hold off on abx. 2. Acute blood loss anemia * Hg went from 14.4 on 09.16.18 to 7 today * Will transfuse 1 unit PRBCs today * Apixaban held * check hemoccult * start PPI * consult general surgery for evaluation for endoscopy * to have EGD and c-scope today 3. MARLON * resolved, back to baseline * suspect prerenal 4. DM2 * uncontrolled * only on Humalog here and at home * start basal 5. VTE * apixaban held due to ABLA 6. VTE proph: SCDs Code Visit Inpatient E&M: 48924 Subs Hosp L2
--- NOTE | 2018-10-20 11:37 | OP.ENDO_ITS ---
10/20/2018 Wili Nelson [address] [place] [address] Re : Colonoscopy procedure for David Louis Dear Dr. Nelson This procedure was performed on Saturday, October 20, 2018. My impressions and recommendations are as follows: Impressions : - The procedure was aborted due to poor bowel prep with stool present. - Stool in the rectum. No specimens collected. Recommendations : - Return patient to [facility] for ongoing care. - Clear liquid diet. - Continue present medications. - Repeat colonoscopy in 6 weeks because the bowel preparation was suboptimal. - Return to my office in 1 week. My findings are described in the full procedure note, which is enclosed. If I can be of further assistance, please feel free to contact me at Doctor phone number(s): , Fax: [phone], Work: . Sincerely, MD Mitchell Voss MD 10/20/2018 11:36:44 AM This report has been signed electronically.
[2018-10-20] MEDS: Insulin Lispro 100 UNIT/ML INSULN.PEN SC ×3 (12:38→22:21)
[2018-10-20] MEDS: Tamsulosin HCl 0.4 MG Capsule 0.8 MG PO (12:38)
[2018-10-20 12:56] LABS: Bedside Glucose 152 mg/dL (70-110)
[2018-10-20 14:06] LABS: Folate, Hemolysate Test 303.2 ng/mL (Not Estab.); Folate, RBC (Hct) Test 21.4 % (37.5-51.0)
--- NOTE | 2018-10-20 14:16 | CHAPLAIN ---
patient and bed are out of the room; left a calling card
[2018-10-20 15:02] LABS: Folates, RBC Test 1417 ng/mL (>498)
[2018-10-20] MEDS: Gabapentin 300 MG Capsule PO ×2 (17:01→22:20)
[2018-10-20] MEDS: Acetaminophen 325 MG Tablet 650 MG PO (17:04)
[2018-10-20] MEDS: Pantoprazole Sodium 40 MG Tablet PO (17:04)
[2018-10-20] MEDS: Sucralfate 1 GM Tablet PO ×2 (17:04→22:20)
[2018-10-20 17:05] LABS: Bedside Glucose 169 mg/dL (70-110)
[2018-10-20] MEDS: Atorvastatin Calcium 40 MG Tablet PO (22:20)
[2018-10-20 22:35] LABS: Bedside Glucose 171 mg/dL (70-110)
[2018-10-21] VITALS (17 sets, daily range): BP systolic 135–164; BP diastolic 56–80; PULSE 64–85; RESP 16–18; TEMP 36.3–37.2; O2SAT 91–98
[2018-10-21 05:44] LABS: Absolute Lymphocyte Count 0.99 X10^3/ul (0.83-4.51); Absolute Neutrophil Count 4.5 X10^3/uL (2.0-7.7); Basophil# 0.03 X10^3/uL; Basophil% 0.5 % (0-1); Eosinophil# 0.34 X10^3/uL; Eosinophils% 5.3 % (0-5); Hematocrit 22.6 % (40-54); Hemoglobin 6.9 g/dl (13.0-16.5); Lymphocyte # 0.99 X10^3/ul (4.0); Lymphocyte % 15.5 % (19-41); Mean Corp Hgb Conc 30.5 g/gl (32-36); Mean Corpuscular Volume 88.3 fL (80-94); Mean Platelet Vol. 8.9 fl (6.2-12.0); Monocyte# 0.55 X10^3/uL; Monocyte% 8.6 % (0-10); Neutrophil # 4.45 X10^3/uL (2.7-7.7); Neutrophil % 69.8 % (47-70); Platelet Count 344 K/mm3 (150-450); RBC Distribution Width CV 13.2 % (11.6-14.6); RBC Distribution Width SD 40.7 fl (35.1-43.9); Red Blood Count 2.56 M/mm3 (4.6-6.2); White Blood Count 6.4 K/mm3 (4.4-11.0)
[2018-10-21 05:56] LABS: POSITIVE COUNT NO; POSITIVE DIFFERENTIAL NO; POSITIVE MORPHOLOGY NO
[2018-10-21 06:04] LABS: Anion Gap 8 (5-15); BUN 19 mg/dL (7-18); BUN/Creat Ratio 13.7 RATIO (10-20); Calcium,Total 8.1 mg/dL (8.5-10.1); Chloride 112 mmol/L (98-107); Creatinine, Serum 1.39 mg/dL (0.70-1.30); EST Glomerular Filtration Rate 53 mL/min (>60); Est Glom Filt Rate - Afr Amer 64 mL/min (>60); Estimated Creatinine Clearance 48.85 ml/min; Glucose 143 mg/dL (74-106); Potassium 3.9 mmol/L (3.5-5.1); Sodium Level 143 mmol/L (136-145)
[2018-10-21] MEDS: Sucralfate 1 GM Tablet PO ×4 (06:40→22:28)
[2018-10-21 06:45] LABS: Bedside Glucose 134 mg/dL (70-110)
[2018-10-21] MEDS: Ipratropium/Albuterol Sulfate 3 ML AMPUL.NEB INHALATION ×3 (07:12→18:55)
[2018-10-21] MEDS: Tamsulosin HCl 0.4 MG Capsule 0.8 MG PO (10:14)
[2018-10-21] MEDS: Pantoprazole Sodium 40 MG Tablet PO ×2 (10:14→22:29)
--- NOTE | 2018-10-21 10:27 | PCM.PN.HOSP ---
Patient Problems: Active and Suspected Problems (Last Reviewed 10/19/18 @ 13:05 by Lissette Taveras PA-C) Hypotension (Acute) MARLON (acute kidney injury) (Acute) Acute blood loss anemia (Acute) Subjective: Feels well. No shortness of breath. No pain. Vitals/I&O's: Vital Signs Temp Pulse Resp BP Pulse Ox 36.6 C 77 18 164/74 H 95 10/21/18 09:35 10/21/18 09:35 10/21/18 09:35 10/21/18 09:35 10/21/18 09:35 Oxygen Flow Rate (L/min) 2 Oxygen Delivery Method CPAP Weight: 163.9 kg Body Mass Index (BMI) 48.8 Finger Stick Blood Glucose 357 Intake and Output for Last 24 Hours 10/19/18 10/20/18 10/21/18 23:59 23:59 23:59 Intake Total 3157 / 3157 4855 / 4855 250 / 250 Output Total 3300 / 3300 3875 / 3875 Balance -143 / -143 980 / 980 250 / 250 General: - - awoken, didn't completely wake up, but was conversant. HEENT: Atraumatic, Normocephalic Oral: Moist Mucosa, No Gingival or Mucosal Lesions/ Ulcerations Neck: No Nodes, Thyroid Normal Size and Texture Lungs: Diminished, - - coarse BS bilaterally. Cardiovascular: Regular rate, No murmurs Abdomen: Bowel Sounds Present, Soft, Non Tender, Obese Extremities: No edema, No Calf Tenderness Skin: No rashes, No breakdown Psych/Mental Status: Normal Affect, Appropriate Microbiology Past 72 Hours 10/18/18 15:45 Blood Culture (Wb) - Left Forearm Blood Culture - Preliminary No growth in 48 hours. 10/18/18 20:00 Urine, Catheterized Urine Culture - Final Pseudomonas aeroginosa 10/18/18 15:40 Blood Culture (Wb) - Left Hand Blood Culture - Preliminary Coag Negative Staph 10/20/18 02:16 Stool Stool Occult Blood (SPENCER) - Final 10/18/18 20:40 Stool Stool Occult Blood (SPENCER) - Final 10/18/18 18:00 Stool Stool Occult Blood (SPENCER) - Final Laboratory Results 10/18/18 18:25: Crossmatch See Detail 10/18/18 18:25: Crossmatch See Detail 10/18/18 20:10: RBC Folate Hemolysate 303.2, RBC Folate 1417, Hematocrit 21.4 L 10/20/18 12:33: POC Glucose 152 H 10/20/18 16:56: POC Glucose 169 H 10/20/18 22:19: POC Glucose 171 H 10/21/18 05:28: WBC 6.4, RBC 2.56 L, Hgb 6.9 L, Hct 22.6 L, MCV 88.3, MCH 27.0, MCHC 30.5 L, RDW 13.2, RDW Differential 40.7, Plt Count 344, MPV 8.9, Immature Gran % (Auto) 0.300, Neut % (Auto) 69.8, Lymph % (Auto) 15.5 L, [place] % (Auto) 8.6, Eos % (Auto) 5.3 H, Baso % (Auto) 0.5, Absolute Neuts (auto) 4.5, Absolute Lymphs (auto) 0.99, Total Counted Not Reportable 10/21/18 05:28: Sodium 143, Potassium 3.9, Chloride 112 H, Carbon Dioxide 23.0, Anion Gap 8, BUN 19 H, Creatinine 1.39 H, Estim Creat Clear Calc 48.85, Est GFR (MDRD) Af Amer 64, Est GFR (MDRD) Non-Af 53 L, BUN/Creatinine Ratio 13.7, Glucose 143 H, Calcium 8.1 L, Magnesium 2.0 10/21/18 06:39: POC Glucose 134 H Current Medications Acetaminophen (Tylenol) 650 mg PO Q6H PRN PRN PRN Reason: PAIN Last Admin: 10/20/18 17:04 Dose: 650 mg Albuterol Sulfate (Ventolin Aerosols) 2.5 mg INHALATION Q4H PRN PRN PRN Reason: Shortness of breath, wheezing Albuterol/Ipratropium (Duoneb) 3 ml INHALATION Q6H.RT [facility] Last Admin: 10/21/18 07:12 Dose: 3 ml Atorvastatin Calcium (Lipitor) 40 mg PO QHS [facility] Last Admin: 10/20/18 22:20 Dose: 40 mg Dextrose (D50w Syringe) 0 gm IV X1 PRN; Protocol PRN Reason: Hypoglycemia Gabapentin (Neurontin) 300 mg PO 1700,2200 [facility] Last Admin: 10/20/18 22:20 Dose: 300 mg Glucagon () 1 mg IM .X1 PRN PRN Reason: Hypoglycemia Insulin Glargine (Lantus (Bkc)) 20 units SC BREAKFAST [facility] Last Admin: 10/21/18 08:06 Dose: 20 units Insulin Human Lispro (Humalog Kwikpen (Bkc)) 0 unit SC ACHS [facility]; Protocol Last Admin: 10/21/18 06:40 Dose: Not Given Insulin Human Lispro (Humalog Kwikpen (Bkc)) 15 unit SC TIDAC [facility] Last Admin: 10/21/18 08:05 Dose: Not Given Magnesium Hydroxide (Milk Of Magnesia) 30 ml PO DAILY PRN PRN PRN Reason: Constipation Pantoprazole Sodium (Protonix) 40 mg PO BID [facility] Last Admin: 10/21/18 10:14 Dose: 40 mg Sodium Chloride () 5 - 15 ml IV UD PRN PRN Reason: SALINE FLUSH Last Admin: 10/19/18 05:02 Dose: 10 ml Sucralfate (Carafate) 1 gm PO 1HR_ACHS [facility] Last Admin: 10/21/18 10:14 Dose: 1 gm Tamsulosin HCl (Flomax) 0.8 mg PO DAILY [facility] Last Admin: 10/21/18 10:14 Dose: 0.8 mg Medical Necessity - Tobacco Use Smoking Status: Former smoker Tobacco Use: Cigars Assessment/Plan All Active Problems (Last Reviewed 10/19/18 @ 13:05 by Lissette Taveras PA-C) Hypotension (Acute) MARLON (acute kidney injury) (Acute) Acute blood loss anemia (Acute) 1. 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 UA, however, was unremarkable for infection. Therefore, continue to hold off on abx. 2. Acute blood loss anemia Baseline was 14.4 Transfused 1 unit on 10/20, will transfuse another unit today as Hg went from 7 to 6.9 after 1 unit PRBC Apixaban held 2/2 PUD and apixaban 3. PUD duodenal ulcer w adherent clot on EGD from 10/20 PPI and carafate repeat in 6 weeks 4. MARLON resolved, back to baseline suspect prerenal 5. DM2 improved only on Humalog here and at home started basal during hospitalization 6. VTE apixaban held due to ABLA per the patient: was many years ago and only had 1 PE (no CTA or duplex shows any in our system) per Dr. Panda, no anticoagulation for at least another week. Given his history of VTE, will check duplex of LE. If + for DVT, consult vascular for IVC filter. If negative, then would hold off on filter, but inform patient to notify physicians if he has increased swelling in LE as it may be a sign DVT. 7. VTE proph: SCDs 8. Disposition: eventually to home once H/H is stable and no other active issues. Code Visit Inpatient E&M: 82809 Subs Hosp L2
--- NOTE | 2018-10-21 10:39 | VDLE_ITS ---
Reason For Study: Pulmonary embolism RIGHT LEFT GSV is normal. GSV is normal. CFV is compressible, spontaneous, phasic, CFV is compressible, spontaneous, phasic, competent and demonstrates normal competent, and demonstrates normal augmentation. augmentation. FV is compressible, spontaneous, phasic, FV is compressible, spontaneous, phasic, competent and demonstrates normal competent and demonstrates normal augmentation. augmentation. POP V is compressible, spontaneous, phasic, POP V is compressible, spontaneous, phasic, competent and demonstrates normal competent and demonstrates normal augmentation. augmentation. T/P Trunk is compressible. T/P Trunk is compressible. PTV is compressible. PTV is compressible. RT PerV is compressible. LT PerV is compressible. Procedure Exam performed portable in patient room. A preliminary report was called and/or faxed to [facility]. Interpretation Summary No evidence for acute deep venous thrombosis bilateral lower extremities with patent and compressible bilateral great saphenous veins. Ordering Physician: Demarcus Hills Referring Physician: Wili Nelson Performed By: Veronica Monahan RVT
--- NOTE | 2018-10-21 10:39 | PN_ITS ---
Patient Problems: Active and Suspected Problems (Last Reviewed 10/19/18 @ 13:05 by Lissette Taveras PA-C) Hypotension (Acute) MARLON (acute kidney injury) (Acute) Acute blood loss anemia (Acute) Subjective: Feels well. No shortness of breath. No pain. Vitals/I&O's: Vital Signs Temp Pulse Resp BP Pulse Ox 36.6 C 77 18 164/74 H 95 10/21/18 09:35 10/21/18 09:35 10/21/18 09:35 10/21/18 09:35 10/21/18 09:35 Oxygen Flow Rate (L/min) 2 Oxygen Delivery Method CPAP Weight: 163.9 kg Body Mass Index (BMI) 48.8 Finger Stick Blood Glucose 357 Intake and Output for Last 24 Hours 10/19/18 10/20/18 10/21/18 23:59 23:59 23:59 Intake Total 3157 / 3157 4855 / 4855 250 / 250 Output Total 3300 / 3300 3875 / 3875 Balance -143 / -143 980 / 980 250 / 250 General: - - awoken, didn't completely wake up, but was conversant. HEENT: Atraumatic, Normocephalic Oral: Moist Mucosa, No Gingival or Mucosal Lesions/ Ulcerations Neck: No Nodes, Thyroid Normal Size and Texture Lungs: Diminished, - - coarse BS bilaterally. Cardiovascular: Regular rate, No murmurs Abdomen: Bowel Sounds Present, Soft, Non Tender, Obese Extremities: No edema, No Calf Tenderness Skin: No rashes, No breakdown Psych/Mental Status: Normal Affect, Appropriate Microbiology Past 72 Hours 10/18/18 15:45 Blood Culture (Wb) - Left Forearm Blood Culture - Preliminary No growth in 48 hours. 10/18/18 20:00 Urine, Catheterized Urine Culture - Final Pseudomonas aeroginosa 10/18/18 15:40 Blood Culture (Wb) - Left Hand Blood Culture - Preliminary Coag Negative Staph 10/20/18 02:16 Stool Stool Occult Blood (SPENCER) - Final 10/18/18 20:40 Stool Stool Occult Blood (SPENCER) - Final 10/18/18 18:00 Stool Stool Occult Blood (SPENCER) - Final Laboratory Results 10/18/18 18:25: Crossmatch See Detail 10/18/18 18:25: Crossmatch See Detail 10/18/18 20:10: RBC Folate Hemolysate 303.2, RBC Folate 1417, Hematocrit 21.4 L 10/20/18 12:33: POC Glucose 152 H 10/20/18 16:56: POC Glucose 169 H 10/20/18 22:19: POC Glucose 171 H 10/21/18 05:28: WBC 6.4, RBC 2.56 L, Hgb 6.9 L, Hct 22.6 L, MCV 88.3, MCH 27.0, MCHC 30.5 L, RDW 13.2, RDW Differential 40.7, Plt Count 344, MPV 8.9, Immature Gran % (Auto) 0.300, Neut % (Auto) 69.8, Lymph % (Auto) 15.5 L, [place] % (Auto) 8.6, Eos % (Auto) 5.3 H, Baso % (Auto) 0.5, Absolute Neuts (auto) 4.5, Absolute Lymphs (auto) 0.99, Total Counted Not Reportable 10/21/18 05:28: Sodium 143, Potassium 3.9, Chloride 112 H, Carbon Dioxide 23.0, Anion Gap 8, BUN 19 H, Creatinine 1.39 H, Estim Creat Clear Calc 48.85, Est GFR (MDRD) Af Amer 64, Est GFR (MDRD) Non-Af 53 L, BUN/Creatinine Ratio 13.7, Glucose 143 H, Calcium 8.1 L, Magnesium 2.0 10/21/18 06:39: POC Glucose 134 H Current Medications Acetaminophen (Tylenol) 650 mg PO Q6H PRN PRN PRN Reason: PAIN Last Admin: 10/20/18 17:04 Dose: 650 mg Albuterol Sulfate (Ventolin Aerosols) 2.5 mg INHALATION Q4H PRN PRN PRN Reason: Shortness of breath, wheezing Albuterol/Ipratropium (Duoneb) 3 ml INHALATION Q6H.RT [facility] Last Admin: 10/21/18 07:12 Dose: 3 ml Atorvastatin Calcium (Lipitor) 40 mg PO QHS FERNANDO Last Admin: 10/20/18 22:20 Dose: 40 mg Dextrose (D50w Syringe) 0 gm IV X1 PRN; Protocol PRN Reason: Hypoglycemia Gabapentin (Neurontin) 300 mg PO 1700,2200 [facility] Last Admin: 10/20/18 22:20 Dose: 300 mg Glucagon () 1 mg IM .X1 PRN PRN Reason: Hypoglycemia Insulin Glargine (Lantus (Bkc)) 20 units SC BREAKFAST [facility] Last Admin: 10/21/18 08:06 Dose: 20 units Insulin Human Lispro (Humalog Kwikpen (Bkc)) 0 unit SC ACHS [facility]; Protocol Last Admin: 10/21/18 06:40 Dose: Not Given Insulin Human Lispro (Humalog Kwikpen (Bkc)) 15 unit SC TIDAC [facility] Last Admin: 10/21/18 08:05 Dose: Not Given Magnesium Hydroxide (Milk Of Magnesia) 30 ml PO DAILY PRN PRN PRN Reason: Constipation Pantoprazole Sodium (Protonix) 40 mg PO BID [facility] Last Admin: 10/21/18 10:14 Dose: 40 mg Sodium Chloride () 5 - 15 ml IV UD PRN PRN Reason: SALINE FLUSH Last Admin: 10/19/18 05:02 Dose: 10 ml Sucralfate (Carafate) 1 gm PO 1HR_ACHS [facility] Last Admin: 10/21/18 10:14 Dose: 1 gm Tamsulosin HCl (Flomax) 0.8 mg PO DAILY [facility] Last Admin: 10/21/18 10:14 Dose: 0.8 mg Medical Necessity - Tobacco Use Smoking Status: Former smoker Tobacco Use: Cigars Assessment/Plan All Active Problems (Last Reviewed 10/19/18 @ 13:05 by Lissette Taveras PA-C) Hypotension (Acute) MARLON (acute kidney injury) (Acute) Acute blood loss anemia (Acute) 1. Hypotension: * resolved * doubt septic etiology, therefore, will dc Zosyn * may be due to volume depletion and anemia * continue to hold losartan and imdur for now * 1/2 BCx from 29th + for P[employer]--likely contaminant * UCx + for PsA. UA, however, was unremarkable for infection. Therefore, continue to hold off on abx. 2. Acute blood loss anemia * Baseline was 14.4 * Transfused 1 unit on 10/20, will transfuse another unit today as Hg went from 7 to 6.9 after 1 unit PRBC * Apixaban held * 2/2 PUD and apixaban 3. PUD * duodenal ulcer w adherent clot on EGD from 10/20 * PPI and carafate * repeat in 6 weeks 4. MARLON * resolved, back to baseline * suspect prerenal 5. 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 Panda, no anticoagulation for at least another week. * Given his history of VTE, will check duplex of LE. If + for DVT, consult vascular for IVC filter. If negative, then would hold off on filter, but inform patient to notify physicians if he has increased swelling in LE as it may be a sign DVT. 7. VTE proph: SCDs 8. Disposition: eventually to home once H/H is stable and no other active issues. Code Visit Inpatient E&M: 19232 Subs Hosp L2
--- NOTE | 2018-10-21 10:47 | PN.SURG_ITS ---
Patient Problems: Active and Suspected Problems (Last Reviewed 10/19/18 @ 13:05 by Lissette Taveras PA-C) Hypotension (Acute) MARLON (acute kidney injury) (Acute) Acute blood loss anemia (Acute) Subjective: Patient evaluated resting comfortably in bed. He denies abdominal pain. Non- bleeding duodenal ulcer was identified with old clot otherwise normal. Colonoscopy was aborted due poor bowel prep. - Physical Exam General: Alert, Oriented x3, Cooperative Abdomen: Soft, Hypoactive Bowel Sounds, Obese Vital Signs Temp Pulse Resp BP Pulse Ox 97.8 F 77 18 164/74 H 95 10/21/18 09:35 10/21/18 09:35 10/21/18 09:35 10/21/18 09:35 10/21/18 09:35 Oxygen Flow Rate (L/min) 2 Oxygen Delivery Method CPAP Weight: 361 lb 5.402 oz Body Mass Index (BMI) 48.8 Finger Stick Blood Glucose 357 Intake and Output for Last 24 Hours 10/19/18 10/20/18 10/21/18 23:59 23:59 23:59 Intake Total 3157 / 3157 4855 / 4855 250 / 250 Output Total 3300 / 3300 3875 / 3875 Balance -143 / -143 980 / 980 250 / 250 Microbiology Past 72 Hours 10/18/18 15:45 Blood Culture - Preliminary Blood Culture (Wb) - Left Forearm No growth in 48 hours. 10/18/18 20:00 Urine Culture - Final Urine, Catheterized Pseudomonas aeroginosa 10/18/18 15:40 Blood Culture - Preliminary Blood Culture (Wb) - Left Hand Coag Negative Staph 10/20/18 02:16 Stool Occult Blood (SPENCER) - Final Stool 10/18/18 20:40 Stool Occult Blood (SPENCER) - Final Stool 10/18/18 18:00 Stool Occult Blood (SPENCER) - Final Stool Laboratory Tests Past 24 Hrs 10/18/18 10/18/18 10/18/18 18:25 18:25 20:10 WBC RBC Hgb Hct MCV MCH MCHC RDW RDW Differential Plt Count MPV Immature Gran % (Auto) Neut % (Auto) Lymph % (Auto) [place] % (Auto) Eos % (Auto) Baso % (Auto) Absolute Neuts (auto) Absolute Lymphs (auto) Total Counted Sodium Potassium Chloride Carbon Dioxide Anion Gap BUN Creatinine Estim Creat Clear Calc Est GFR (MDRD) Af Amer Est GFR (MDRD) Non-Af BUN/Creatinine Ratio Glucose Calcium Magnesium RBC Folate Hemolysate 303.2 RBC Folate 1417 Hematocrit 21.4 L Crossmatch See Detail See Detail 10/21/18 10/21/18 05:28 05:28 WBC 6.4 RBC 2.56 L Hgb 6.9 L Hct 22.6 L MCV 88.3 MCH 27.0 MCHC 30.5 L RDW 13.2 RDW Differential 40.7 Plt Count 344 MPV 8.9 Immature Gran % (Auto) 0.300 Neut % (Auto) 69.8 Lymph % (Auto) 15.5 L [place] % (Auto) 8.6 Eos % (Auto) 5.3 H Baso % (Auto) 0.5 Absolute Neuts (auto) 4.5 Absolute Lymphs (auto) 0.99 Total Counted Not Reportable Sodium 143 Potassium 3.9 Chloride 112 H Carbon Dioxide 23.0 Anion Gap 8 BUN 19 H Creatinine 1.39 H Estim Creat Clear Calc 48.85 Est GFR (MDRD) Af Amer 64 Est GFR (MDRD) Non-Af 53 L BUN/Creatinine Ratio 13.7 Glucose 143 H Calcium 8.1 L Magnesium 2.0 RBC Folate Hemolysate RBC Folate Hematocrit Crossmatch POC Glucose 10/21/18 10/20/18 10/20/18 06:39 22:19 16:56 POC Glucose 134 H 171 H 169 H 10/20/18 12:33 POC Glucose 152 H Medical Necessity - Tobacco Use Smoking Status: Former smoker Tobacco Use: Cigars Assessment/Plan All Active Problems (Last Reviewed 10/19/18 @ 13:05 by Lissette Taveras PA-C) Hypotension (Acute) MARLON (acute kidney injury) (Acute) Acute blood loss anemia (Acute) I am following this patient in conjunction with Dr. Panda Acute anemia. Non-bleeding duodenal ulcer Labs reviewed Repeat EGD and colonoscopy in 6 weeks or sooner if needed We will continue to follow this patient Code Visit Inpatient E&M: 56755 Subs Hosp L1
[2018-10-21 11:31] LABS: Bedside Glucose 129 mg/dL (70-110)
--- NOTE | 2018-10-21 16:10 | CHAPLAIN ---
Type of Pastoral Visit _x__ Initial Visit ___ Follow-up Visit ___ On-call Visit ___ General Patient Visit ___ Spiritual Assessment ___ Family Conference ___ Bereavement ___ Rapid Response ___ Code Blue ___ Other (describe below) Pastoral Care Referral From _x__ Patient ___ Family ___ Nurse ___ Physician ___ Front End Web Designer ___ Lpn Rn ___ Other (describe below) Sacrament/Intervention _x__ Active listening ___ Anointing ___ Sikh ___ Bereavement ___ Communion ___ Marcella exploration ___ ___ Life review _x__ Prayer ___ Reconciliation ___ Sacrament of Sick _x__ Supportive presence ___ Wedding ___ Other (describe below) Pastoral Comments
[2018-10-21] MEDS: Gabapentin 300 MG Capsule PO ×2 (16:33→22:29)
[2018-10-21 16:41] LABS: Bedside Glucose 122 mg/dL (70-110)
[2018-10-21] MEDS: Insulin Lispro 100 UNIT/ML INSULN.PEN SC (22:28)
[2018-10-21] MEDS: Atorvastatin Calcium 40 MG Tablet PO (22:29)
[2018-10-21 23:40] LABS: Bedside Glucose 154 mg/dL (70-110)
[2018-10-22] VITALS (8 sets, daily range): BP systolic 133–153; BP diastolic 61–64; PULSE 62–86; RESP 18–20; TEMP 36.4–36.9; O2SAT 95–98
[2018-10-22] MEDS: Ipratropium/Albuterol Sulfate 3 ML AMPUL.NEB INHALATION ×3 (01:13→13:20)
[2018-10-22 05:59] LABS: Absolute Lymphocyte Count 1.18 X10^3/ul (0.83-4.51); Absolute Neutrophil Count 4.7 X10^3/uL (2.0-7.7); Basophil# 0.03 X10^3/uL; Basophil% 0.4 % (0-1); Eosinophil# 0.44 X10^3/uL; Eosinophils% 6.3 % (0-5); Hematocrit 25.9 % (40-54); Hemoglobin 8.3 g/dl (13.0-16.5); Lymphocyte # 1.18 X10^3/ul (4.0); Mean Corpuscular Hgb 27.9 pg (27.0-32.0); Mean Corpuscular Volume 87.2 fL (80-94); Mean Platelet Vol. 8.6 fl (6.2-12.0); Monocyte# 0.58 X10^3/uL; Monocyte% 8.3 % (0-10); Neutrophil # 4.71 X10^3/uL (2.7-7.7); Neutrophil % 67.7 % (47-70); Platelet Count 346 K/mm3 (150-450); RBC Distribution Width CV 13.9 % (11.6-14.6); RBC Distribution Width SD 43.5 fl (35.1-43.9); Red Blood Count 2.97 M/mm3 (4.6-6.2)
[2018-10-22 06:06] LABS: Anion Gap 8 (5-15); BUN 13 mg/dL (7-18); BUN/Creat Ratio 9.4 RATIO (10-20); Calcium,Total 8.5 mg/dL (8.5-10.1); Chloride 110 mmol/L (98-107); Creatinine, Serum 1.38 mg/dL (0.70-1.30); EST Glomerular Filtration Rate 53 mL/min (>60); Est Glom Filt Rate - Afr Amer 64 mL/min (>60); Glucose 132 mg/dL (74-106); Potassium 3.7 mmol/L (3.5-5.1); Sodium Level 141 mmol/L (136-145)
[2018-10-22 06:11] LABS: POSITIVE COUNT NO; POSITIVE DIFFERENTIAL NO; POSITIVE MORPHOLOGY NO
[2018-10-22] MEDS: Sucralfate 1 GM Tablet PO ×2 (06:39→09:15)
[2018-10-22 07:15] LABS: Bedside Glucose 133 mg/dL (70-110)
[2018-10-22] MEDS: Pantoprazole Sodium 40 MG Tablet PO (09:15)
[2018-10-22] MEDS: Tamsulosin HCl 0.4 MG Capsule 0.8 MG PO (09:15)
--- NOTE | 2018-10-22 10:36 | CASEMGMT ---
SW met with patient, introduced self and role at [facility]. SW asked him if he feels like he is safe to go home or if he will need to go somewhere for rehab. He was not sure and he wanted SW to check with his . SW called patient's . Introduced self and role at [facility]. SW asked her if she feels patient needs to go somewhere for rehab or if she feels he will be okay at home. She said she wants him to come home. SW asked if she would be okay with home health coming to the home and she declined. SW notified physician. PT felt patient would benefit from home health or if patient is agreeable SNF. However, patient defaults decisions to his and his wants him home. Lilly MESA
--- NOTE | 2018-10-22 10:51 | DCINST_ITS ---
You will use the following diet at home:: Cardiac Your food should be the consistency of: Regular Your liquids should be the consistency of: Regular/Thin Discharge Activity: Return to Normal Activity Weight Bearing Status: Weight bearing as tolerated Call your doctor if you observe: Fever of 101 or Higher Instructions: Peptic Ulcer, Bleeding Peptic Ulcer: Treatment, Discharge Instructions for Acute Kidney Injury Additional Instructions: losartan discontinued o/a of hypotension. Continue metoprolol and imdur. Check BP daily at home and send BP log to PCP for BP meds to be adjusted as needed. Do not take any NSAIDs. Allergies/Adverse Reactions: Allergies MARGIE Inhibitors Allergy (Unknown, Verified 09/23/18 13:15) Unknown cefepime Allergy (Verified 09/23/18 13:15) Other WEAKNESS & FALLING ipodate [Ipodate] Allergy (Verified 09/23/18 13:15) Shortness of breath levofloxacin [Levofloxacin] Allergy (Verified 09/23/18 13:15) Anaphylaxis lisinopril Allergy (Verified 09/23/18 13:15) Shortness of breath ofloxacin Allergy (Verified 09/23/18 13:15) Unknown Quinolones Allergy (Verified 09/23/18 13:15) Anaphylaxis Medications to take at Discharge Atorvastatin Calcium [Lipitor] 40 mg PO QHS 05/29/15 Citalopram [Celexa] 40 mg PO DAILY 05/29/15 Tamsulosin HCl [Flomax] 0.8 mg PO DAILY 07/08/16 albuterol sulfate 90 mcg/actuation breath activated powder inhaler 2 puff INHALATION Q4H PRN #1 ea 02/08/18 Gabapentin [Neurontin] 300 mg PO 1700,2200 03/11/18 Isosorbide Mononitrate [Imdur] 30 mg PO DAILY 03/12/18 Insulin Lispro [Humalog KwikPen] 20 unit SQ TIDCM 09/16/18 metoprolol succinate ER 25 mg tablet,extended release 24 hr 25 mg PO DAILY tab 09/23/18 Ferrous Sulfate 325 mg PO BID #60 tablet 10/22/18 Pantoprazole Sodium [Protonix] 40 mg PO BID #60 tablet 10/22/18 Sucralfate [Carafate] 1 gm PO 1HR_ACHS #60 tablet 10/22/18 The following prescriptions were given: Sucralfate [Carafate] 1 gm PO 1HR_ACHS #60 tablet Ferrous Sulfate 325 mg PO BID #60 tablet Pantoprazole Sodium [Protonix] 40 mg PO BID #60 tablet Primary Care Physician: Wili Nelson DO [Primary Care Provider] - Please follow up with your Primary Care Physician in: one week Test Results: Test results from this visit will be discussed in further detail at your follow- up appointment, if applicable. Please Follow Up With: Mitchell Panda MD When: 1 week Proposed Discharge Date: 10/22/18
--- NOTE | 2018-10-22 10:53 | CASEMGMT ---
YORDY spoke with patient to confirm his pharmacy. YORDY then told him SW spoke to his and she wants him to come home and she did not want home health. YORDY told him the physician and therapy really feel like he should have home health. He said he would agree to home health. He said normally they go to their cam[place], but the weather has been bad and he is not feeling well enough. He had no preference for home health. YORDY notified BRITTNI CHAVIRA. Lilly DAWKINS METAL WORKER
--- NOTE | 2018-10-22 10:56 | CASEMGMT ---
Addendum entered by Danie Guzman 10/22/18 13:01: 1125: Lorraine from [facility] on unit to talk with pt. Original Note: Addendum entered by Danie Guzman 10/22/18 11:25: Per Lorraine @ [facility], they are able to accept pt. She states plans for Start of care to be this weekend. Original Note: BRITTNI CHAVIRA NOTE: Informed by YORDY Carr, that pt is agreeable to [facility] and has no preference of [facility] agency. Call placed to Lorraine @ [facility] and referral made for penitentiary, PT/OT eval and treat. Birgit MCKNIGHT RN CM
--- NOTE | 2018-10-22 10:59 | PCM.DC.SUM ---
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) BPH (benign prostatic hyperplasia) (Chronic) Super obesity (Chronic) Noncompliance (Chronic) with CPAP and follow up and with diet COPD (chronic obstructive pulmonary disease) (Chronic) Type II diabetes mellitus, uncontrolled (Chronic) History of depression (Chronic) History of other venous thrombosis and embolism (Chronic) HLD (hyperlipidemia) (Chronic) HTN (hypertension) (Chronic) NILO (obstructive sleep apnea) (Chronic) BiPAP ST 18/12 cm of water Chronic renal failure, stage 3 (moderate) (Chronic) Bifascicular bundle branch block (Chronic) Colon polyps (Chronic) Family history of colon cancer (Chronic) Hospital Course and Treatment Imaging Results: Diagnostic Data Chest X-Ray 10/18/18 15:37 IMPRESSION: No acute findings Electronically Signed: Gregorio Young DO at 16:07 EDT Tel , Service support , Brain CT 10/18/18 15:44 IMPRESSION: Chronic involutional changes of the brain. Electronically Signed: Gregorio Young DO at 16:28 EDT Tel , Service support , Abdomen/Pelvis CT 10/18/18 16:34 IMPRESSION: 1. Under distended bladder with appearance of circumferential wall thickening. Cystitis cannot be excluded 2. No evidence of small bowel obstruction. Unremarkable appendix 3. Presumed bilateral renal cysts, stable from prior exam. Nonobstructing right-sided nephroliths. Recommend correlation with renal ultrasound when possible Electronically Signed: Gregorio Young DO at 17:18 EDT Tel , Service support , Operations: None Procedures: Colonoscopy, - - EGD Summary of Care Provided: The patient is a 77 year old M who was admitted with a complaint of altered mental status, weakness and difficulty walking. On admission, he was noted to be hypotensive with blood pressure 86/50 which improved slightly with IV fluids. EKG showed only first-degree AV block and right bundle branch block which were not new and troponin was negative. BNP was normal and chest x-ray showed no acute cardia pulmonary findings. CT brain was also negative showed no acute abdominal pathology. He was admitted and managed for high-protein, mild lactic acidosis due to possible tissue hypoperfusion as well as anemia and MARLON on CKD 3. He was hydrated with IV fluids and started on empiric IV antibiotics with IV Zosyn. Blood and urine cultures were obtained. Hypotension resolved and due to lack of likely infectious pathology, antibiotics were discontinued. His blood pressure medications were also held. His hemoglobin was noted to have dropped from 14.4-7.2. His Eliquis was held and general surgery was consulted and patient was started on PPI. MARLON also resolved with IV fluid hydration. Esophagus normal stomach which was biopsied and a single nonbleeding duodenal ulcer with an adherent clot. Colonoscopy was aborted due to poor bowel prep with stool present. Eliquis was permanently discontinued. During admission, he was transfused with 2 units of packed red blood cell of the hemoglobin dropped to 6.9. Hemoglobin was 8.3 on day of discharge. Hypotension also resolved with systolic blood pressures been in the 130s and 140s. Patient remained stable and was discharged home with home health care on 10/22/2018. He was discharged home with a prescription for p.o. pantoprazole 40 mg twice daily and p.o. Carafate as well as Eliquis was DC'd. His losartan was also DC'd and he was continued on metoprolol. He is to keep a blood pressure log at home and to follow-up with his primary care doctor for medication adjustment as needed based on blood pressure. Patient seen and asked and said he felt fair. Review of systems otherwise negative. Labs and vitals reviewed. Home medication reviewed and reconciled. [] - Physical Exam General: Alert, Oriented x3, Cooperative, No apparent distress HEENT: Atraumatic, PERRLA, EOMI, Normocephalic Oral: Moist Mucosa Neck: Supple, No JVD, Negative Carotid Bruits Lungs: Clear to auscultation, Normal air movement Cardiovascular: Regular rate, Regular Rhythm, Normal S1, Normal S2, No murmurs Abdomen: Bowel Sounds Present, Soft, Non Tender, Non-Distended, No Hepato-splenomegaly Extremities: No clubbing, No cyanosis, No edema, Capillary Refill Less than 3 Seconds Skin: No rashes, No breakdown Musculoskeletal: No Tenderness to Palpation of Joints or Extremities Lymphatic: No Cervical, Supraclavicular, or Inguinal Adenopathy Neurological: Cranial nerves II-XII grossly intact, Neuro grossly intact, Motor Exam 5/5 strength throughout Psych/Mental Status: Normal Affect, Appropriate, Alert and oriented to time, place, person, mood and affect Vital Signs Temp Pulse Resp BP Pulse Ox 98.4 F 79 18 133/61 H 95 10/22/18 09:30 10/22/18 09:30 10/22/18 09:30 10/22/18 09:30 10/22/18 09:30 Oxygen Flow Rate (L/min) 2 Oxygen Delivery Method Room Air Weight: 354 lb 13.344 oz Body Mass Index (BMI) 48.8 Finger Stick Blood Glucose 357 Intake and Output for Last 24 Hours 10/20/18 10/21/18 10/22/18 23:59 23:59 23:59 Intake Total 4855 / 4855 890 / 890 240 / 240 Output Total 3875 / 3875 2150 / 2150 Balance 980 / 980 -1260 / -1260 240 / 240 Microbiology Past 72 Hours 10/18/18 15:45 Blood Culture - Preliminary Blood Culture (Wb) - Left Forearm No growth in 48 hours. 10/18/18 20:00 Urine Culture - Final Urine, Catheterized Pseudomonas aeroginosa 10/18/18 15:40 Blood Culture - Preliminary Blood Culture (Wb) - Left Hand Coag Negative Staph 10/20/18 02:16 Stool Occult Blood (SPENCER) - Final Stool Laboratory Tests Past 24 Hrs 10/18/18 10/18/18 10/22/18 18:25 18:25 05:24 WBC 7.0 RBC 2.97 L Hgb 8.3 L Hct 25.9 L MCV 87.2 MCH 27.9 MCHC 32.0 RDW 13.9 RDW Differential 43.5 Plt Count 346 MPV 8.6 Immature Gran % (Auto) 0.300 Neut % (Auto) 67.7 Lymph % (Auto) 17.0 L [place] % (Auto) 8.3 Eos % (Auto) 6.3 H Baso % (Auto) 0.4 Absolute Neuts (auto) 4.7 Absolute Lymphs (auto) 1.18 Total Counted Not Reportable Sodium Potassium Chloride Carbon Dioxide Anion Gap BUN Creatinine Estim Creat Clear Calc Est GFR (MDRD) Af Amer Est GFR (MDRD) Non-Af BUN/Creatinine Ratio Glucose Calcium Crossmatch See Detail See Detail 10/22/18 05:24 WBC RBC Hgb Hct MCV MCH MCHC RDW RDW Differential Plt Count MPV Immature Gran % (Auto) Neut % (Auto) Lymph % (Auto) [place] % (Auto) Eos % (Auto) Baso % (Auto) Absolute Neuts (auto) Absolute Lymphs (auto) Total Counted Sodium 141 Potassium 3.7 Chloride 110 H Carbon Dioxide 23.0 Anion Gap 8 BUN 13 Creatinine 1.38 H Estim Creat Clear Calc 49.20 Est GFR (MDRD) Af Amer 64 Est GFR (MDRD) Non-Af 53 L BUN/Creatinine Ratio 9.4 L Glucose 132 H Calcium 8.5 Crossmatch POC Glucose 10/22/18 10/21/18 10/21/18 06:38 22:22 16:31 POC Glucose 133 H 154 H 122 H 10/21/18 10:59 POC Glucose 129 H Discharge Diet: Low fat/ Low Cholesterol Discharge Activity: Return to Normal Activity Weight Bearing Status: Weight bearing as tolerated Call your doctor if you observe: Fever of 101 or Higher Home Medications: Medications to take at Discharge RX: Atorvastatin Calcium [Lipitor] 40 mg PO QHS 05/29/15 RX: Citalopram [Celexa] 40 mg PO DAILY 05/29/15 RX: Tamsulosin HCl [Flomax] 0.8 mg PO DAILY 07/08/16 albuterol sulfate 90 mcg/actuation breath activated powder inhaler 2 puff INHALATION Q4H PRN #1 ea 02/08/18 RX: Gabapentin [Neurontin] 300 mg PO 1700,2200 03/11/18 RX: Isosorbide Mononitrate [Imdur] 30 mg PO DAILY 03/12/18 RX: Insulin Lispro [Humalog KwikPen] 20 unit SQ TIDCM 09/16/18 metoprolol succinate ER 25 mg tablet,extended release 24 hr 25 mg PO DAILY tab 09/23/18 RX: Ferrous Sulfate 325 mg PO BID #60 tablet 10/22/18 RX: Pantoprazole Sodium [Protonix] 40 mg PO BID #60 tablet 10/22/18 RX: Sucralfate [Carafate] 1 gm PO 1HR_ACHS #60 tablet 10/22/18 Following Prescrptions Were Given to Patient: RX: Sucralfate [Carafate] 1 gm PO 1HR_ACHS #60 tablet RX: Ferrous Sulfate 325 mg PO BID #60 tablet RX: Pantoprazole Sodium [Protonix] 40 mg PO BID #60 tablet Primary Care Physician: Wili Nelson DO [Primary Care Provider] - Please follow up with your Primary Care Physician in: one week Please Follow Up With: Mitchell Panda MD When: 1 week Patient Instructions: Peptic Ulcer, Bleeding Peptic Ulcer: Treatment, Discharge Instructions for Acute Kidney Injury Disposition: Home with Home Health Minutes spent on discharge:: 45 Patient Condition:: Stable Medical Necessity - Tobacco Use Smoking Status: Former smoker Tobacco Use: Cigars Meaningful Use Info Meaningful Use Diagnoses (Choose all that apply): None applicable Code Visit Inpatient E&M: 80497 Disch Hosp
[2018-10-22] MEDS: Insulin Lispro 100 UNIT/ML INSULN.PEN 15 UNIT SC (11:16)
[2018-10-22] MEDS: Insulin Lispro 100 UNIT/ML INSULN.PEN SC (11:16)
--- NOTE | 2018-10-22 14:25 | CASEMGMT ---
BRITTNI CHAVIRA NOTE: Call received from Lorraine @ [facility]. She states she received a call from pt's , who states pt is not homebound and she does not want C coming out to see pt. Lorraine also states it was determined after pt was discharged, that pt is on their Do not take list and they would not have been able to take pt, even if was agreeable. Birgit MCKNIGHT RN CM
[2018-10-22 16:40] LABS: Bedside Glucose 182 mg/dL (70-110)
--- NOTE | 2018-10-25 11:37 | CASEMGMT ---
BRITTNI CHAVRIA DC PHONE CALL DC DATE: DC Disposition: Home LACE/STRATA: 14/4 Intro role of CM to patient's via phone. No questions re: f/u or instructions, but states she was not able to fill prescription for Protonix- not covered by insurance. BRITTNI CHAVIRA recommended call to PCP's nurse and see if another medicaiton can be ordered which would be covered for pt. is agreeable for this. -Noted pt had returned to ER on 10/24/18 with UTI. states medications from this ER visit were filled. Tigist MCKNIGHT RN ACM
== END 2018-10-22 14:04 | disposition home or self-care (01) | DRG 811 ==
LOC: ED 15:59 → ICU 18:04 → PCU 10-19 13:42
PROVIDERS: Surgery; Admitting Provider Hospitalist; Emergency Provider Emergency Medicine; Family Provider Family Medicine; PCP Family Medicine; Referring Provider Hospitalist; Visit Provider Student in an Organized Health Care Education/Training Program
PROC: 0DJD8ZZ Inspection of Lower Intestinal Tract, Via Natural or Artificial Opening Endoscopic (ICD-10-PCS; CPT 45378; principal; 2018-10-20 10:40)
DX: D62 Acute posthemorrhagic anemia (principal); K26.4 Chronic or unspecified duodenal ulcer with hemorrhage; E87.2 Acidosis; J96.10 Chronic respiratory failure, unspecified whether with hypoxia or hypercapnia; N17.9 Acute kidney failure, unspecified; Z68.42 Body mass index [BMI] 45.0-49.9, adult; I95.9 Hypotension, unspecified; Z99.81 Dependence on supplemental oxygen; N40.0 Benign prostatic hyperplasia without lower urinary tract symptoms; E11.65 Type 2 diabetes mellitus with hyperglycemia; E78.5 Hyperlipidemia, unspecified; G47.33 Obstructive sleep apnea (adult) (pediatric); I12.9 Hypertensive chronic kidney disease with stage 1 through stage 4 chronic kidney disease, or unspecified chronic kidney disease; E11.22 Type 2 diabetes mellitus with diabetic chronic kidney disease; N18.3 Chronic kidney disease, stage 3 (moderate); J44.9 Chronic obstructive pulmonary disease, unspecified; Z79.4 Long term (current) use of insulin; Z87.891 Personal history of nicotine dependence; E66.01 Morbid (severe) obesity due to excess calories
CPT/HCPCS: 36415; 70450; 71045; 74176; 80048; 80053; 80307; 80320; 81001; 82274; 82607; 82728; 82747; 82962; 83540; 83550; 83605; 83735; 83880; 84466; 84484; 85014; 85025; 85610; 85730; 86850; 86900; 86920; 87040; 87077; 87086; 87088; 87184; 87186; 88305; 88342; 93005; 93970; 94640; 97163; 97166; 97530; 99285; J7030; J7040; J7050; P9016; A4216; G0480

== ENCOUNTER 2018-10-24 19:22 | Emergency (ER) | payer MEDICARE, OTHER, SELFPAY ==
[2018-10-22 13:13] VITALS: BMI 48.4
[2018-10-24 19:23] VITALS: BP 119/73; PULSE 71; RESP 15; TEMP 36.7; BMI 47.5
--- NOTE | 2018-10-24 19:42 | CT_ITS ---
STUDY: CT ABDOMEN AND PELVIS WITH CONTRAST REASON FOR EXAM: Male, 77 years old. RLQ PAIN X 1 WEEK, INCREASED TONIGHT, RECENT BLEEDING ULCER, HX LOOP RECORDER, HTN, TIA, DIAB, COPD, PE, [place] RADIATION DOSAGE (If Supplied By Facility): CTDIvol = ( 29.01 ) mGy, DLP = ( 2852.64 ) mGycm TECHNIQUE: Transaxial images were obtained from the dome of the diaphragm to the symphysis pubis without oral contrast. 100ML IV Isovue 300 was administered. Sagittal and coronal images were reconstructed. Individualized dose optimization techniques were used for this CT. COMPARISON: None. FINDINGS: The visualized lung bases are unremarkable. The visualized portions of the heart are within normal limits. Normal liver. Normal gallbladder and extrahepatic biliary system. Normal spleen. Normal pancreas. Normal bilateral adrenal glands. Multiple hypoattenuation lesions and exophytic lesions in both kidneys most likely represent cysts. There are 2 calcifications in the upper and lower pole of the right kidney measuring respectively 3 mm and 7 mm may represent kidney stones. There is no hydronephrosis. Normal visualized stomach. Normal small intestine. There are multiple colonic diverticula consistent with diverticulosis. The appendix is visualized and appears normal. Normal abdominal aorta. Normal inferior vena cava. Normal retroperitoneum. Normal urinary bladder. There is a left-sided inguinal hernia containing adipose tissue. There are diffuse degenerative changes of the visualized lumbar spine. CT/Abdomen/Pelvis W IV Cont ONLY IMPRESSION: Multiple hypoattenuation lesions and exophytic lesions in both kidneys most likely represent cysts. There are 2 calcifications in the upper and lower pole of the right kidney measuring respectively 3 mm and 7 mm may represent kidney stones. There is no hydronephrosis. Electronically Signed: Lisset Lees, at 21:33 EDT Tel , Service support ,
[2018-10-24] MEDS: Ondansetron 4 MG/2 ML Vial IV (19:55)
[2018-10-24] MEDS: Morphine 4 MG/ML Syringe IV (19:55)
[2018-10-24] MEDS: 0.9% Normal Saline 1,000 ML 125 ML IV (19:55)
[2018-10-24 19:59] LABS: Absolute Lymphocyte Count 1.06 X10^3/ul (0.83-4.51); Absolute Neutrophil Count 4.9 X10^3/uL (2.0-7.7); Basophil# 0.02 X10^3/uL; Basophil% 0.3 % (0-1); Eosinophil# 0.31 X10^3/uL; Eosinophils% 4.5 % (0-5); Hematocrit 26.3 % (40-54); Hemoglobin 8.3 g/dl (13.0-16.5); Lymphocyte # 1.06 X10^3/ul (4.0); Lymphocyte % 15.5 % (19-41); Mean Corp Hgb Conc 31.6 g/gl (32-36); Mean Corpuscular Hgb 27.4 pg (27.0-32.0); Mean Corpuscular Volume 86.8 fL (80-94); Mean Platelet Vol. 8.6 fl (6.2-12.0); Monocyte# 0.53 X10^3/uL; Monocyte% 7.8 % (0-10); Neutrophil % 71.8 % (47-70); POSITIVE COUNT NO; POSITIVE DIFFERENTIAL NO; POSITIVE MORPHOLOGY NO; Platelet Count 405 K/mm3 (150-450); RBC Distribution Width CV 14.3 % (11.6-14.6); RBC Distribution Width SD 44.6 fl (35.1-43.9); Red Blood Count 3.03 M/mm3 (4.6-6.2); White Blood Count 6.8 K/mm3 (4.4-11.0)
[2018-10-24 20:18] LABS: ALB/GLOB Ratio 0.4 RATIO (0.9-2.4); AST(SGOT) 18 U/L (15-37); Alanine Aminotransfer ALT/SGPT 27 U/L (16-61); Albumin, Serum 1.9 g/dL (3.2-5.0); Alkaline Phosphatase 127 U/L (45-117); Anion Gap 6 (5-15); BUN 14 mg/dL (7-18); BUN/Creat Ratio 9.2 RATIO (10-20); Chloride 111 mmol/L (98-107); Creatinine, Serum 1.53 mg/dL (0.70-1.30); EST Glomerular Filtration Rate 47 mL/min (>60); Est Glom Filt Rate - Afr Amer 57 mL/min (>60); Estimated Creatinine Clearance 44.38 ml/min; Globulin 4.8 g/dL (2.2-4.2); Glucose 90 mg/dL (74-106); Lipase 109 U/L (73-393); Potassium 3.4 mmol/L (3.5-5.1); Protein, Total 6.7 g/dL (6.4-8.2); Sodium Level 142 mmol/L (136-145)
[2018-10-24 20:25] LABS: Lactic Acid 1.5 mmol/L (0.4-2.0)
[2018-10-24 20:32] LABS: Mucous, Urine 0 SEEN /hpf (<or=2+)
[2018-10-24 20:34] LABS: Color, Urine Yellow (Yellow); Glucose, Dipstick Normal (Normal); Ketone-Dipstick Negative (Negative); Leukocyte Esterase-Dipstick 500 /ul (Negative); Nitrite-Dipstick Negative (Negative); Occult Blood-Urine 150 /ul (Negative); Protein-Dipstick 100 mg/dl (Negative); Specific Gravity, Urine 1.015 (1.002-1.030); Urine Bilirubin Dipstick Negative (Negative); Urine Clarity Sl. Cloudy (Clear); Urine Urobilinogen Normal (Normal)
[2018-10-24 21:05] LABS: Red Blood Cells-Urine 10-25 SEEN /hpf (0-5); White Blood Cells >100 SEEN /hpf (0-5)
[2018-10-24 21:06] LABS: Squamous Epithelial Cells - UA 0-5 SEEN /hpf (0-5)
[2018-10-24 21:07] LABS: Bacteria RARE /hpf (None Seen)
[2018-10-24] MEDS: Smz/Tmp Ds Tablet 1 TABLET PO (21:19)
--- NOTE | 2018-10-24 21:32 | ED.VISSUMM ---
- ER Visit Summary Date of Service: 10/24/18 Chief Complaint: [Abdominal pain] History of Present Illness: The patient is a 77 M [presents to the emergency department complaint of abdominal pain for at least 2 weeks. Patient is concerned that it might be his appendix. Patient describes the pain is over the right side of the lateral abdomen. Denies any nausea or vomiting. He denies any diarrhea. Patient denies any blood in his stool. His last bowel movement was 2 days ago. Patient was recently admitted for a bleeding ulcer. Patient had been on Eliquis but apparently was taken off due to the bleeding ulcer. Patient denies urinary symptoms. Patient denies fevers.] Physical Examination: [HEENT-PERRLA, EOMI. Cranial nerves II through XII grossly intact. TMs clear. Mucous membranes moist. No adenopathy. Cardiovascular-regular rate and rhythm without murmur or ectopy Lungs-clear to auscultation, chest wall stable without crepitus or subcu emphysema Abdomen-normoactive bowel sounds, soft. Patient has tenderness to palpation over the lateral aspect of the mid right abdomen. No real tenderness of McBurney's. Negative Harper sign. There is no rebound, rigidity, or perineal signs. No CVA tenderness. Extremities-intact ?4, normal range of motion, normal pulses, atraumatic] Test Results: CBC with differential obtained showed a white count of 6.8, hemoglobin 8.3, hematocrit 26, platelets 405. Chemistries were unremarkable. BUN was 14 creatinine 1.53. LFTs were normal and lipase was 109. Lactate was normal at 1.5. Urinalysis showed 500 leukocyte esterase as well as greater than 100 WBCs and 10-25 RBCs. Patient had trace bacteria. CT scan of the abdomen pelvis with IV contrast was obtained and showed a normal appendix. Patient had 2 small stones in the right kidney measuring 3 and 7 mm. Patient had cysts on kidneys. No other acute disease process noted.] Emergency Department Course and Treatment: [Patient was medicated with Bactrim. Patient was given morphine and Zofran initially for his pain. Patient had good pain relief.] Treatment Plan: [Patient will be given a prescription for Bactrim and Romeo. Urine culture was sent. Patient advised to follow-up with his primary care physician within next 3 to 5 days. Patient advised to return if black tarry stool or blood in stool or if he should develop a fever or worsening pain.] Disposition: Discharged home in stable condition [] Impression: [Abdominal pain-etiology uncertain UTI] This note was generated with [employer] dictation software. It may contain incorrect words, spelling, and punctuation that were not noted in review of the chart prior to signing ED Disposition - Plan for ED Patient: Referrals: Wili Nelson DO [Primary Care Provider] -
--- NOTE | 2018-10-24 21:40 | ED.DEP ---
ED Disposition - Plan for ED Patient: Instructions: ED Abdominal Pain Unkn Cause, ED UTI Cystitis Male Prescriptions: Hydrocodone Bitart/Apap 5-325 [[place] 5MG-325MG] 1 tab PO Q4H PRN PRN 2 Days #10 tab PRN Reason: Pain Smz/Tmp Ds [Bactrim Ds] 1 tab PO BID #14 tab Referrals: Wili Nelson DO [Primary Care Provider] - 3-5 Days
[2018-10-24] MEDS: HYDROcodone Bitartrate/Apap 5/325 Tablet PO (21:57)
[2018-10-24 22:01] VITALS: BP 115/75; PULSE 70; RESP 18; O2SAT 98
== END 2018-10-24 22:00 | disposition home or self-care (01) ==
LOC: ED 19:50
PROVIDERS: Emergency Provider Emergency Medicine; Family Provider Family Medicine; PCP Family Medicine
DX: R10.9 Unspecified abdominal pain (principal); N39.0 Urinary tract infection, site not specified; I10 Essential (primary) hypertension; E78.00 Pure hypercholesterolemia, unspecified; J44.9 Chronic obstructive pulmonary disease, unspecified; G47.33 Obstructive sleep apnea (adult) (pediatric); Z86.73 Personal history of transient ischemic attack (TIA), and cerebral infarction without residual deficits
CPT/HCPCS: 74177; 80053; 81001; 83605; 83690; 85025; 87077; 87086; 87088; 87186; 99283; J7030; Q9967; A4216; J2405

== ENCOUNTER 2018-10-29 12:03 | Day surgery (SDC) | payer MEDICARE, OTHER, SELFPAY ==
[2018-10-29] VITALS (7 sets, daily range): BP systolic 140–175; BP diastolic 65–80; PULSE 56–63; RESP 16–20; TEMP 36.1–36.6; O2SAT 97–99; BMI 48.8
[2018-10-29 13:02] LABS: Absolute Lymphocyte Count 0.79 X10^3/ul (0.83-4.51); Basophil# 0.01 X10^3/uL; Basophil% 0.2 % (0-1); Eosinophil# 0.34 X10^3/uL; Eosinophils% 6.1 % (0-5); Hematocrit 25.6 % (40-54); Hemoglobin 8.2 g/dl (13.0-16.5); Lymphocyte # 0.79 X10^3/ul (4.0); Lymphocyte % 14.1 % (19-41); Mean Corpuscular Hgb 27.6 pg (27.0-32.0); Mean Corpuscular Volume 86.2 fL (80-94); Mean Platelet Vol. 8.9 fl (6.2-12.0); Monocyte# 0.41 X10^3/uL; Monocyte% 7.3 % (0-10); Neutrophil # 4.03 X10^3/uL (2.7-7.7); Neutrophil % 72.1 % (47-70); POSITIVE COUNT NO; POSITIVE DIFFERENTIAL NO; POSITIVE MORPHOLOGY NO; Platelet Count 371 K/mm3 (150-450); RBC Distribution Width CV 14.4 % (11.6-14.6); RBC Distribution Width SD 45.2 fl (35.1-43.9); Red Blood Count 2.97 M/mm3 (4.6-6.2); White Blood Count 5.6 K/mm3 (4.4-11.0)
[2018-10-29 13:11] LABS: ALB/GLOB Ratio 0.4 RATIO (0.9-2.4); AST(SGOT) 18 U/L (15-37); Alanine Aminotransfer ALT/SGPT 16 U/L (16-61); Alkaline Phosphatase 129 U/L (45-117); Anion Gap 6 (5-15); BUN 15 mg/dL (7-18); BUN/Creat Ratio 9.1 RATIO (10-20); Calcium,Total 8.2 mg/dL (8.5-10.1); Chloride 110 mmol/L (98-107); Creatinine, Serum 1.65 mg/dL (0.70-1.30); EST Glomerular Filtration Rate 43 mL/min (>60); Est Glom Filt Rate - Afr Amer 52 mL/min (>60); Estimated Creatinine Clearance 41.15 ml/min; Globulin 4.7 g/dL (2.2-4.2); Glucose 105 mg/dL (74-106); Lipase 69 U/L (73-393); Potassium 3.9 mmol/L (3.5-5.1); Protein, Total 6.7 g/dL (6.4-8.2); Sodium Level 140 mmol/L (136-145)
[2018-10-29 13:18] LABS: Lactic Acid 0.9 mmol/L (0.4-2.0)
[2018-10-29 14:01] LABS: International Normalized Ratio 1.4; Prothrombin Time (Protime)PT. 16.7 SECONDS (11.7-14.9)
[2018-10-29 14:02] LABS: Partial Thromboplast Time 45.5 Seconds (24.1-36.2)
--- NOTE | 2018-10-29 14:14 | PCM.CONS.GEN ---
Reason for Consult Date of Consultation: 10/29/18 History of Present Illness: The patient is a 77 year old M who presented to the ER due to a large tarry stool last night. Patient was previously admitted and diagnosed with a duodenal ulcer which was not bleeding at the time of EGD on 10/20/[address] Panda; however patient did drop from 14 to 7 for his hemoglobin prior. Patient was also on Eliquis and this has been held ever since discharge on 11/18/2018. Patient did receive a total of 2 units packed red blood cells during his hospitalization.. Patient has also been on Protonix twice daily as well as Carafate 4 times daily. When patient was asked if he had any bowel movement since hospitalization he was not completely sure but he thought that his first one was last night. Patient states that his fatigue is about the same as when he left has not gotten worse. Patient's current hemoglobin is stable at 8.2 was 8.3 before he left on 11/18/2018. 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) BPH (benign prostatic hyperplasia) (Chronic) Super obesity (Chronic) Noncompliance (Chronic) with CPAP and follow up and with diet COPD (chronic obstructive pulmonary disease) (Chronic) Type II diabetes mellitus, uncontrolled (Chronic) History of depression (Chronic) History of other venous thrombosis and embolism (Chronic) HLD (hyperlipidemia) (Chronic) HTN (hypertension) (Chronic) NILO (obstructive sleep apnea) (Chronic) BiPAP ST 18/12 cm of water Chronic renal failure, stage 3 (moderate) (Chronic) Bifascicular bundle branch block (Chronic) Colon polyps (Chronic) Family history of colon cancer (Chronic) Medical History: Medical History (Last Reviewed 10/19/18 @ 13:05 by Lissette Taveras PA-C) Status post placement of implantable loop recorder (Chronic) Z95.818 Thromboembolism (Chronic) I74.9 BPH (benign prostatic hyperplasia) (Chronic) N40.0 Super obesity (Chronic) E66.9 Noncompliance (Chronic) Z91.19 with CPAP and follow up and with diet COPD (chronic obstructive pulmonary disease) (Chronic) J44.9 Type II diabetes mellitus, uncontrolled (Chronic) E11.65 History of depression (Chronic) Z86.59 History of other venous thrombosis and embolism (Chronic) Z86.718 HLD (hyperlipidemia) (Chronic) E78.5 HTN (hypertension) (Chronic) I10 NILO (obstructive sleep apnea) (Chronic) G47.[address] 18/12 cm of water Chronic renal failure, stage 3 (moderate) (Chronic) N18.3 Bifascicular bundle branch block (Chronic) I45.2 Colon polyps (Chronic) Family history of colon cancer (Chronic) Z80.0 Allergies MARGIE Inhibitors Allergy (Unknown, Verified 10/29/18 12:05) Unknown cefepime Allergy (Verified 10/29/18 12:05) Other WEAKNESS & FALLING ipodate [Ipodate] Allergy (Verified 10/29/18 12:05) Shortness of breath levofloxacin [Levofloxacin] Allergy (Verified 10/29/18 12:05) Anaphylaxis lisinopril Allergy (Verified 10/29/18 12:05) Shortness of breath ofloxacin Allergy (Verified 10/29/18 12:05) Unknown Quinolones Allergy (Verified 10/29/18 12:05) Anaphylaxis Home Medications: Ambulatory Orders Medication Instructions Recorded Atorvastatin Calcium [Lipitor] 40 mg PO QHS 05/29/15 Citalopram [Celexa] 40 mg PO DAILY 05/29/15 Tamsulosin HCl [Flomax] 0.8 mg PO DAILY 07/08/16 Gabapentin [Neurontin] 300 mg PO 1700,2200 03/11/18 Isosorbide Mononitrate [Imdur] 30 mg PO DAILY 03/12/18 Insulin Lispro [Humalog KwikPen] 20 unit SQ TIDCM 09/16/18 metoprolol succinate ER 25 mg 25 mg PO DAILY tab 09/23/18 tablet,extended release 24 hr Sucralfate [Carafate] 1 gm PO 1HR_ACHS #60 tablet 10/22/18 Albuterol Sulfate [Proair 2 puff INHALATION Q4H PRN PRN 10/29/18 Respiclick] Ferrous Sulfate 325 mg PO BID 10/29/18 Pantoprazole Sodium [Protonix] 40 mg PO BID 10/29/18 Surgical History: - Psychiatric History: No pertinent psych hx Smoking Status: Former smoker - *Family History Maternal Family History: Family History (Last Reviewed 06/16/18 @ 14:31 by BETTYE Aguilera) Father Colon cancer Mother Cancer Sister CAD (coronary artery disease) History Items: Cancer - Patient's mother of cancer but he is not sure what kind of cancer. Paternal Family History: Family History (Last Reviewed 06/16/18 @ 14:31 by BETTYE Aguilera) Father Colon cancer Mother Cancer Sister CAD (coronary artery disease) History Items: Cancer - Father of colon cancer Offspring Family History: Family History (Last Reviewed 06/16/18 @ 14:31 by BETTYE Aguilera) Father Colon cancer Mother Cancer Sister CAD (coronary artery disease) History Items: - - He has a son who is morbidly obese and suffers from breathing problems and heart problems. Review of Systems Constitutional: Reports: Anorexia. Denies: Fever Cardiovascular: Denies: Chest Pain Gastrointestinal: Reports: Abdominal Pain, Constipation, Melena. Denies: Nausea, Vomiting Genitourinary: Denies: Dysuria - Physical Exam General: Alert, Oriented x3, Cooperative, No apparent distress HEENT: Atraumatic Lungs: Normal air movement Cardiovascular: Regular rate Abdomen: Soft, Non-Distended, Passing Flatus, Tender - minimal R mid abdomen, no PS Extremities: Edema Skin: No rashes Vital Signs Temp Pulse Resp BP Pulse Ox 97 F L 58 L 16 140/80 H 97 10/29/18 12:04 10/29/18 12:04 10/29/18 12:04 10/29/18 12:04 10/29/18 12:04 Weight: 360 lb Body Mass Index (BMI) 48.8 Finger Stick Blood Glucose 357 Laboratory Tests Past 24 Hrs 10/29/18 10/29/18 10/29/18 12:40 12:40 12:40 WBC 5.6 RBC 2.97 L Hgb 8.2 L Hct 25.6 L MCV 86.2 MCH 27.6 MCHC 32.0 RDW 14.4 RDW Differential 45.2 H Plt Count 371 MPV 8.9 Immature Gran % (Auto) 0.200 Neut % (Auto) 72.1 H Lymph % (Auto) 14.1 L [place] % (Auto) 7.3 Eos % (Auto) 6.1 H Baso % (Auto) 0.2 Absolute Neuts (auto) 4.0 Absolute Lymphs (auto) 0.79 L Total Counted Not Reportable PT INR APTT Sodium 140 Potassium 3.9 Chloride 110 H Carbon Dioxide 24.0 Anion Gap 6 BUN 15 Creatinine 1.65 H Estim Creat Clear Calc 41.15 Est GFR (MDRD) Af Amer 52 L Est GFR (MDRD) Non-Af 43 L BUN/Creatinine Ratio 9.1 L Glucose 105 Lactic Acid 0.9 Calcium 8.2 L Total Bilirubin 0.20 AST 18 ALT 16 Alkaline Phosphatase 129 H Total Protein 6.7 Albumin 2.0 L Globulin 4.7 H Albumin/Globulin Ratio 0.4 L Lipase 69 L Blood Type Antibody Screen 10/29/18 10/29/18 13:05 13:05 WBC RBC Hgb Hct MCV MCH MCHC RDW RDW Differential Plt Count MPV Immature Gran % (Auto) Neut % (Auto) Lymph % (Auto) [place] % (Auto) Eos % (Auto) Baso % (Auto) Absolute Neuts (auto) Absolute Lymphs (auto) Total Counted PT 16.7 H INR 1.4 APTT 45.5 H Sodium Potassium Chloride Carbon Dioxide Anion Gap BUN Creatinine Estim Creat Clear Calc Est GFR (MDRD) Af Amer Est GFR (MDRD) Non-Af BUN/Creatinine Ratio Glucose Lactic Acid Calcium Total Bilirubin AST ALT Alkaline Phosphatase Total Protein Albumin Globulin Albumin/Globulin Ratio Lipase Blood Type A NEGATIVE Antibody Screen NEGATIVE Assessment/Plan All Active Problems (Last Reviewed 10/19/18 @ 13:05 by Lissette Taveras PA-C) Hypotension (Acute) MARLON (acute kidney injury) (Acute) Acute blood loss anemia (Acute) 77-year-old male with a history of a duodenal ulcer, melena 1. Discussed with family, the /daughter and the patient would plan to do an EGD to make sure there is no new bleeding from the previous duodenal ulcer. Patient does not think he had any other bowel movement since leaving the hospital this may just be old blood from his ulcer. His hemoglobin is currently stable. We will take a look with EGD if that appears nonbleeding and patient remained stable okay for discharge. Patient family are agreeable with plan. I have discussed the above with the patient. I have offered the patient EGD for evaluation. I have explained the risks/benefits of the procedure and described the procedure. I have discussed the risks with the patient, including but not limited to: infection, bleeding, perforation of the GI tract requiring emergency surgery, inability to complete the procedure, injury to any internal organs, complications of anesthesia, etc. - the patient understands and agrees to proceed. I have answered all the patient's questions to the patient's satisfaction and the patient has no further questions. Abbie Gurrola M.D. Pager: [phone] [facility] [address] [place] [address] Office: [phone]
--- NOTE | 2018-10-29 14:56 | OP.ENDO_ITS ---
10/29/2018 Wili Nelson [address] [facility] [place] [address] Re : Upper GI endoscopy procedure for David Louis Dear Dr. Nelson This procedure was performed on Monday, October 29, 2018. My impressions and recommendations are as follows: Impressions : - One non-bleeding duodenal ulcer with no stigmata of bleeding. - Normal stomach. - Normal esophagus. - No specimens collected. Recommendations : - Discharge patient to home. - Continue soft food and liquids. - Continue present medications. My findings are described in the full procedure note, which is enclosed. If I can be of further assistance, please feel free to contact me at Doctor phone number(s): , Work: . Sincerely, MD Abbie Castorena MD 10/29/2018 2:55:47 PM This report has been signed electronically.
--- NOTE | 2018-10-29 15:09 | ED.VISSUMM ---
- ER Visit Summary Date of Service: 10/29/18 Chief Complaint: Dark stool History of Present Illness: The patient is a 77 M presents to the emergency department with a black stool. The patient was recently admitted for upper GI bleed. He was on Eliquis for history of pulmonary embolus. This was stopped. He is unsure how many times he is moved his bowels since being home. He states that overnight, he had some cramping to move his bowels and it was dark and black. He denies any weakness or lightheadedness. He is off all of his anticoagulants. He did call the office of Dr. Panda, who did his endoscopy, and was referred him to the emergency department. He states his been compliant with his medications. Physical Examination: Vital signs reviewed General: Well-nourished, well-developed Head: Normocephalic, atraumatic Eyes: Pupils equal and reactive, extraocular muscles intact Neck, supple, no lymphadenopathy Heart: Regular rate and rhythm Respiratory: No distress, clear bilaterally Abdomen: Soft, nontender, nondistended, no peritoneal signs Back: Nontender Extremities: Nontender, no edema, no cords Skin: Normal color no rash Neuro: Alert and oriented, no focal or lateralizing deficits Test Results: [] Emergency Department Course and Treatment: Patient's abdomen was soft and nontender. IV was established. Type and screen was obtained. Screening labs do show hemoglobin of 8.2 which is unchanged from discharge. Patient was given IV Protonix. He was discussed with Dr. Thompson. She actually took the patient to endoscopy. The patient had no evidence of rebleeding. Since his hemoglobin is stable, he had a negative endoscopy, and is not on anticoagulants, the patient will be discharged back to home. Treatment Plan: [] Disposition: Discharge Impression: 1. Abdominal pain 2. History of GI bleed This note was generated with [employer] dictation software. It may contain incorrect words, spelling, and punctuation that were not noted in review of the chart prior to signing ED Disposition - Plan for ED Patient: Disposition: Home or Assisted Living
== END 2018-10-29 15:41 | disposition home or self-care (01) ==
LOC: ED 12:33 → SDC 14:22
PROVIDERS: Emergency Provider Emergency Medicine; Family Provider Family Medicine; PCP Family Medicine; Referring Provider Surgery; Visit Provider Surgery
PROC: 0DJ08ZZ Inspection of Upper Intestinal Tract, Via Natural or Artificial Opening Endoscopic (ICD-10-PCS; CPT 43235; principal; 2018-10-29 13:30)
DX: K26.9 Duodenal ulcer, unspecified as acute or chronic, without hemorrhage or perforation (principal); K92.1 Melena; N40.0 Benign prostatic hyperplasia without lower urinary tract symptoms; E78.5 Hyperlipidemia, unspecified; G47.33 Obstructive sleep apnea (adult) (pediatric); I12.9 Hypertensive chronic kidney disease with stage 1 through stage 4 chronic kidney disease, or unspecified chronic kidney disease; N18.3 Chronic kidney disease, stage 3 (moderate); J44.9 Chronic obstructive pulmonary disease, unspecified; F32.9 Major depressive disorder, single episode, unspecified; Z80.0 Family history of malignant neoplasm of digestive organs; Z91.19 Patient's noncompliance with other medical treatment and regimen; Z86.711 Personal history of pulmonary embolism; Z79.01 Long term (current) use of anticoagulants; Z86.010 Personal history of colon polyps; E11.22 Type 2 diabetes mellitus with diabetic chronic kidney disease; E66.9 Obesity, unspecified; Z87.891 Personal history of nicotine dependence; Z68.42 Body mass index [BMI] 45.0-49.9, adult
CPT/HCPCS: 43235; 80053; 83605; 83690; 85025; 85610; 85730; 86850; 86900; 99283; J7030; J7040; A4216; J3490

== ENCOUNTER 2018-12-27 06:42 | Day surgery (SDC) | payer MEDICARE, OTHER, SELFPAY ==
--- NOTE | 2018-11-30 01:27 | HP_ITS ---
Intake Vital Signs 11/30/18 Body Mass Index (BMI) 48.8 Intake Visit Reasons: 1 mo FU Duodenal Ulcer Chief Complaint: recheck ulcer Allergies MARGIE Inhibitors Allergy (Unknown, Verified 11/30/18 13:14) Unknown cefepime Allergy (Verified 11/30/18 13:14) Other ipodate [Ipodate] Allergy (Verified 11/30/18 13:14) Shortness of breath levofloxacin [Levofloxacin] Allergy (Verified 11/30/18 13:14) Anaphylaxis lisinopril Allergy (Verified 11/30/18 13:14) Shortness of breath ofloxacin Allergy (Verified 11/30/18 13:14) Unknown Quinolones Allergy (Verified 11/30/18 13:14) Anaphylaxis Medications Atorvastatin Calcium [Lipitor] 40 mg PO QHS 05/29/15 [History Confirmed 11/02/18] Citalopram [Celexa] 40 mg PO DAILY 05/29/15 [History Confirmed 11/02/18] Tamsulosin HCl [Flomax] 0.8 mg PO DAILY 07/08/16 [History Confirmed 11/02/18] Gabapentin [Neurontin] 300 mg PO 1700,2200 03/11/18 [History Confirmed 11/02/18] Isosorbide Mononitrate [Imdur] 30 mg PO DAILY 03/12/18 [History Confirmed 11/02/18] Insulin Lispro [Humalog KwikPen] 20 unit SQ TIDCM 09/16/18 [History Confirmed 11/02/18] metoprolol succinate ER 25 mg tablet,extended release 24 hr 25 mg PO DAILY tab 09/23/18 [History Confirmed 11/02/18] Sucralfate [Carafate] 1 gm PO 1HR_ACHS #60 tab 10/22/18 [Rx Confirmed 11/02/18] Albuterol Sulfate [Proair Respiclick] 2 puff INHALATION Q4H PRN PRN 10/29/18 [History Confirmed 11/02/18] Ferrous Sulfate 325 mg PO BID 10/29/18 [History Confirmed 11/02/18] Pantoprazole Sodium [Protonix] 40 mg PO BID 10/29/18 [History Confirmed 11/02/18] PFSH Medical History Hypotension (Acute) MARLON (acute kidney injury) (Acute) Acute blood loss anemia (Acute) Bradycardia (Chronic) 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) BPH (benign prostatic hyperplasia) (Chronic) Super obesity (Chronic) Noncompliance (Chronic) COPD (chronic obstructive pulmonary disease) (Chronic) Type II diabetes mellitus, uncontrolled (Chronic) History of depression (Chronic) History of other venous thrombosis and embolism (Chronic) HLD (hyperlipidemia) (Chronic) HTN (hypertension) (Chronic) NILO (obstructive sleep apnea) (Chronic) Chronic renal failure, stage 3 (moderate) (Chronic) Bifascicular bundle branch block (Chronic) Colon polyps (Chronic) Family history of colon cancer (Chronic) Surgical History History of esophagogastroduodenoscopy (EGD) (Acute) Family History Father Colon cancer Mother Cancer Sister CAD (coronary artery disease) Social History Smoking Status: Former smoker quit date: 06/22/07 how long ago did patient quit smoking: cigars, smoked 2 a day, quit in 2007 HPI HPI HPI: WADE HERNANDEZ, is a 78 M who presents to the office today for HPI HPI Surgical H&P: Yes HPI: WADE HERNANDEZ, is a 78 M who presents to the office today for postop evaluation from a duodenal ulcer. Patient was admitted to the hospital and on 10/20/2018 underwent a an EGD and found to have a duodenal ulcer which was not apparently bleeding at that time. Biopsy for H. pylori was negative. He had been doing reasonably well on Carafate and Protonix. Most recently he states he is starting to develop some more right-sided abdominal pain. He has not noticed any black or tarry stools. He is not complaining of any nausea or vomiting. Exam Const General: no acute distress, well developed, well hydrated Orientation: oriented to person, oriented to place, oriented to time [facility] Head: normocephalic, atraumatic Ears: external ears normal Mouth: moist mucous membranes Eyes Sclera: sclerae normal Pupils: normal by confrontation Neck Neck: no lymphadenopathy noted Neck mass: No Thyroid: thyroid normal, symmetrical Chest Chest palpation & inspection: normal inspection of the chest Resp Effort & Inspection: normal respiratory effort Auscultation: clear to auscultation bilaterally Percussion: percussion normal Cardio Rate: regular rate Rhythm: regular rhythm GI Inspection: obesity Palpation: soft, no hepatosplenomegaly, no masses, nontender Rectal Exam: other Other: Rectal exam deferred. No rebound guarding or peritoneal signs are identified Extrem General: normal to inspection, no clubbing, cyanosis or edema Assessment & Plan Problems 1. Duodenal ulcer K26.9 2. Right upper quadrant abdominal pain R10.11 Plan I have discussed the above with the patient. I have offered the patient esophagogastroduodenoscopy for evaluation. I have explained the risks/benefits of the procedure and described the procedure. I have discussed the risks with the patient, including but not limited to: infection, bleeding, perforation of the GI tract requiring emergency surgery, inability to complete the procedure, injury to any internal organs, complications of anesthesia, etc. - the patient understands and agrees to proceed. I have answered all the patient's questions to the patient's satisfaction and the patient has no further questions. The patient has been given instructions for the colon cleansing preparation. Coding Level of Care Code Off vis,est,level 3 Diagnoses Duodenal ulcer K26.9 Right upper quadrant abdominal pain R10.11 11/30/18 1327 <Electronically signed by Mitchell cespedes MD> Date _ Mitchell Panda MD I have re-examined the patient. There are no clinical changes since date of exam.
[2018-11-30 13:27] VITALS: BMI 48.8
[2018-12-27] VITALS (8 sets, daily range): BP systolic 90–160; BP diastolic 50–87; PULSE 57–72; RESP 16; TEMP 36.3–36.6; O2SAT 95–99; BMI 46.4
[2018-12-27 07:15] LABS: Bedside Glucose 162 mg/dL (70-110)
--- NOTE | 2018-12-27 07:59 | OP.ENDO_ITS ---
12/27/2018 Wili Nelson [address] [place] [address] Re : Upper GI endoscopy procedure for David Louis Dear Dr. Nelson This procedure was performed on Thursday, December 27, 2018. My impressions and recommendations are as follows: Impressions : - Normal esophagus. - Normal stomach. No specimens collected. - Normal examined duodenum. No specimens collected.The area where the ulcer was identified previously has completely healed with no residual effects. Recommendations : - Discharge patient to home. - Resume previous diet. - Continue present medications. - No Repeat upper endoscopy. - Return to primary care physician PRN. My findings are described in the full procedure note, which is enclosed. If I can be of further assistance, please feel free to contact me at Doctor phone number(s): , Fax: [phone], Work: . Sincerely, MD Mitchell Voss MD 12/27/2018 7:58:26 AM This report has been signed electronically.
== END 2018-12-27 09:02 | disposition home or self-care (01) ==
LOC: EN 06:44 → AC 06:45
PROVIDERS: Family Provider Family Medicine; PCP Family Medicine; Referring Provider Family Medicine; Visit Provider Surgery
PROC: 0DJ08ZZ Inspection of Upper Intestinal Tract, Via Natural or Artificial Opening Endoscopic (ICD-10-PCS; CPT 43235; principal; 2018-12-27 07:25)
DX: K26.7 Chronic duodenal ulcer without hemorrhage or perforation (principal); R10.11 Right upper quadrant pain; J44.9 Chronic obstructive pulmonary disease, unspecified; E78.5 Hyperlipidemia, unspecified; G47.33 Obstructive sleep apnea (adult) (pediatric); N18.3 Chronic kidney disease, stage 3 (moderate); I12.9 Hypertensive chronic kidney disease with stage 1 through stage 4 chronic kidney disease, or unspecified chronic kidney disease; Z80.0 Family history of malignant neoplasm of digestive organs; N40.0 Benign prostatic hyperplasia without lower urinary tract symptoms; E11.65 Type 2 diabetes mellitus with hyperglycemia; Z87.891 Personal history of nicotine dependence; Z88.8 Allergy status to other drugs, medicaments and biological substances; Z88.1 Allergy status to other antibiotic agents; Z79.4 Long term (current) use of insulin; Z86.711 Personal history of pulmonary embolism
CPT/HCPCS: 43235; 82962; J7120

== ENCOUNTER 2019-01-24 20:58 | Emergency (ER) | payer MEDICARE, OTHER, SELFPAY ==
[2018-12-27 07:02] VITALS: BMI 46.4
[2019-01-24 21:00] VITALS: BP 134/106; PULSE 57; RESP 18; TEMP 36.9; O2SAT 97; BMI 47.0
--- NOTE | 2019-01-24 22:18 | CT_ITS ---
STUDY: CT ABDOMEN AND PELVIS WITHOUT CONTRAST REASON FOR EXAM: Male, 78 years old. Left upper quadrant pain. RADIATION DOSAGE (If Supplied By Facility): CTDIvol = ( 34.1 ) mGy, DLP = ( 2505.81 ) mGycm TECHNIQUE: Transaxial images were obtained from the dome of the diaphragm to the symphysis pubis without oral contrast, and without intravenous contrast. Sagittal and coronal images were reconstructed. Individualized dose optimization techniques were used for this CT. COMPARISON: Including October 24, 2018 and October 18, 2018 FINDINGS: There is lower lung atelectasis The visualized portions of the heart are within normal limits. There is hepatomegaly with diffuse hepatic enlargement. Normal gallbladder and extrahepatic biliary system. There is mild splenomegaly. Normal pancreas. Normal bilateral adrenal glands. There are 3.6 and 1.9 cm cysts of the right kidney. There are 0.4 and 0.8 cm stones of the right kidney. There is cyst measuring up to 2.6 cm of the left kidney. There is no hydronephrosis. Normal visualized stomach. Normal small intestine. Normal colon. The appendix is visualized and appears normal. There is diffuse atherosclerotic calcification of the abdominal aorta, without a demonstrated aneurysm. Normal inferior vena cava. Normal retroperitoneum. Normal urinary bladder. There are prostatic calcifications. There is no free fluid in the abdomen or pelvis. There is a left-sided inguinal hernia containing adipose tissue. There are diffuse degenerative changes of the visualized lumbar spine. CT/Abdomen/Pelvis without Cont IMPRESSION: Right renal stones. No hydronephrosis. Hepatosplenomegaly. Stable appearance. Electronically Signed: Jose Scott MD at 23:25 EDT , Service support ,
--- NOTE | 2019-01-24 22:19 | ED.DCSUM_ITS ---
History of Present Illness Chief Complaint: Abd Pain Detail of Chief Complaint: Left-sided abdominal pain Informant: Patient, Family Onset: Days Context: Gradual Onset Current Severity: Mild Maximum Severity: Moderate Narrative: Patient presents with a 2-day history of left mid abdominal pain. It hurts all the time but is worse when he is upright and trying to go up or down steps. states he also complained of pain when trying to put on his shoes and he could not do so. He has not had fever or chills. He denies diarrhea or constipation. He has had no urinary symptoms. He denies history of diverticulitis. He denies any abdominal wall hernias when he is upright. He has not taken anything today for pain. Past Medical History - Allergies and Home Meds Allergies/Adverse Reactions: Allergies MARGIE Inhibitors Allergy (Unknown, Verified 01/24/19 21:00) Unknown cefepime Allergy (Verified 01/24/19 21:00) Other WEAKNESS & FALLING ipodate [Ipodate] Allergy (Verified 01/24/19 21:00) Shortness of breath levofloxacin [Levofloxacin] Allergy (Verified 01/24/19 21:00) Anaphylaxis lisinopril Allergy (Verified 01/24/19 21:00) Shortness of breath ofloxacin Allergy (Verified 01/24/19 21:00) Unknown Quinolones Allergy (Verified 01/24/19 21:00) Anaphylaxis Primary Care Physician: Wili Nelson DO [Primary Care Provider] - Prior records reviewed: Yes Past Medical History: - - Reviewed Surgical History: - Lives: Spouse/ Significant Other Smoking Status: Never smoker - Family History Maternal Family History: Family History (Last Reviewed 11/30/18 @ 13:24 by Mitchell Panda MD) Father Colon cancer Mother Cancer Sister CAD (coronary artery disease) Family History: Reports: Cancer Paternal Family History: Family History (Last Reviewed 11/30/18 @ 13:24 by Mitchell Panda MD) Father Colon cancer Mother Cancer Sister CAD (coronary artery disease) Family History: Reports: Cancer Offspring Family History: Family History (Last Reviewed 11/30/18 @ 13:24 by Mitchell Panda MD) Father Colon cancer Mother Cancer Sister CAD (coronary artery disease) Family History: Reports: - Review of Systems General: Denies: Chills, Fever Eyes: Denies: Visual changes - bilaterally ENT: Denies: Bilateral ear pain Cardiovascular: Denies: Chest pain Respiratory: Denies: Dyspnea, Cough Gastrointestinal: Reports: Abdominal pain. Denies: Nausea, Vomiting, Diarrhea, Constipation Genitourinary: Denies: Dysuria, Hematuria Musculoskeletal: Denies: Back pain Skin: Denies: Rash Neurological: Denies: Headache Endocrine: Denies: Polyuria, Polydipsia Hematologic: Denies: Easy bruising Allergy: Denies: Uticaria Physical Exam Vital Signs/Narrative: Vital Signs Temp Pulse Resp BP Pulse Ox 01/24/19 21:00 98.4 F 57 L 18 134/106 H 97 Inital Vital Signs reviewed: Yes General: Well nourished, Well developed ENT: Moist mucous membranes Cardiovascular: Regular rate, Regular rhythm Respiratory: No distress, CTA bilaterally Abdomen: Soft, Tender - Mild left mid abdominal tenderness palpation. No palpable masses., Hypoactive bowel sounds. Negative for: Guarding, Rebound tenderness Extremities: Nontender Skin: Normal color Neurological: Alert, Oriented x3 Psychological: Normal affect Diagnostic/Tx/Re-eval Impressions Abdomen/Pelvis CT 01/24/19 22:18 IMPRESSION: Right renal stones. No hydronephrosis. Hepatosplenomegaly. Stable appearance. Electronically Signed: Jose Scott MD at 23:25 EDT , Service support , 01/24/19 22:18 Abdomen/Pelvis without Cont [CT] Stat Laboratory Results 01/24/19 01/24/19 01/24/19 21:30 21:30 22:45 WBC 6.4 RBC 5.03 Hgb 13.1 Hct 41.6 MCV 82.7 MCH 26.0 L MCHC 31.5 L RDW Std Deviation 41.9 RDW Coeff of Hilary 14.1 Plt Count 275 MPV 9.4 Immature Gran % (Auto) 0.300 Neut % (Auto) 68.0 Lymph % (Auto) 20.9 [place] % (Auto) 8.6 Eos % (Auto) 1.6 Baso % (Auto) 0.6 Absolute Neuts (auto) 4.4 Absolute Lymphs (auto) 1.34 Nucleated RBC % 0 Sodium 139 Potassium 3.9 Chloride 106 Carbon Dioxide 28.0 Anion Gap 5 BUN 22 H Creatinine 1.62 H Estim Creat Clear Calc 41.25 Est GFR (MDRD) Af Amer 53 L Est GFR (MDRD) Non-Af 44 L BUN/Creatinine Ratio 13.6 Glucose 142 H Calcium 9.2 Urine Color Yellow Urine Clarity Sl. Cloudy Urine pH 6.5 Ur Specific [place] 1.010 Urine Protein 100 H Urine Glucose (UA) Normal Urine Ketones Negative Urine Occult Blood 250 H Urine Nitrite Negative Urine Bilirubin Negative Urine Urobilinogen Normal Ur Leukocyte Esterase 500 H Urine RBC 25-50 SEEN Urine WBC 25-50 SEEN Ur Squamous Epith Cells 0-5 SEEN Urine Bacteria 0 SEEN Urine Mucus 0 SEEN POC Glucose 01/25/19 00:35 WBC RBC Hgb Hct MCV MCH MCHC RDW Std Deviation RDW Coeff of Hilary Plt Count MPV Immature Gran % (Auto) Neut % (Auto) Lymph % (Auto) [place] % (Auto) Eos % (Auto) Baso % (Auto) Absolute Neuts (auto) Absolute Lymphs (auto) Nucleated RBC % Sodium Potassium Chloride Carbon Dioxide Anion Gap BUN Creatinine Estim Creat Clear Calc Est GFR (MDRD) Af Amer Est GFR (MDRD) Non-Af BUN/Creatinine Ratio Glucose Calcium Urine Color Urine Clarity Urine pH Ur Specific [place] Urine Protein Urine Glucose (UA) Urine Ketones Urine Occult Blood Urine Nitrite Urine Bilirubin Urine Urobilinogen Ur Leukocyte Esterase Urine RBC Urine WBC Ur Squamous Epith Cells Urine Bacteria Urine Mucus POC Glucose 144 H - Medical Decision Making Patient was initially treated with morphine and Zofran. Laboratory and imaging studies are reviewed with patient and at bedside. Patient reported no significant improvement in his pain. I do have concern that he may have UTI as he does have white cells and RBCs, however no bacteria are noted. Urine will be sent for culture. He is given a single dose of Bactrim which she has done well with in the past. I gave him 15 mg of IV Toradol and 25 mcg of fentanyl. On repeat evaluation his pain is significantly improved. My suspicion is the patient may have a small kidney stone that was not visible on CT scan. He will be discharged with Mccalla and 3 days of Bactrim. He will follow-up with Dr. Bowser who has seen in the past. ED Disposition - Plan for ED Patient: Disposition: Home or Assisted Living Instructions: FLANK PAIN, Uncertain Cause Prescriptions: Smz/Tmp Ds [Bactrim Ds] 1 tablet PO BID #6 tablet Hydrocodone Bitart/Apap 5-325 [M[place]alla 5MG-325MG] 1 tablet PO Q6H PRN PRN 3 Days #10 tablet PRN Reason: Pain Referrals: Wili Nelson DO [Primary Care Provider] - Mau Bowser MD [STAFF PHYSICIAN] - As Needed
[2019-01-24] MEDS: 0.9% Normal Saline 1,000 ML 150 ML IV (22:38)
[2019-01-24] MEDS: Morphine 4 MG/ML Syringe IV (22:38)
[2019-01-24] MEDS: Ondansetron 4 MG/2 ML Vial IV (22:38)
[2019-01-24 22:50] LABS: Absolute Lymphocyte Count 1.34 X10^3/uL (0.83-4.51); Absolute Neutrophil Count 4.4 X10^3/uL (2.0-7.7); Basophil# 0.04 X10^3/uL; Basophil% 0.6 % (0-1); Eosinophils% 1.6 % (0-5); Hematocrit 41.6 % (40-54); Hemoglobin 13.1 g/dL (13.0-16.5); Lymphocyte # 1.34 X10^3/ul (4.0); Lymphocyte % 20.9 % (19-41); Mean Corp Hgb Conc 31.5 g/dL (32-36); Mean Corpuscular Volume 82.7 fL (80-94); Mean Platelet Vol. 9.4 fl (6.2-12.0); Monocyte# 0.55 X10^3/uL; Monocyte% 8.6 % (0-10); NRBC Flagged by Analyzer 0 % (0-5); Neutrophil # 4.37 X10^3/uL (2.7-7.7); Platelet Count 275 K/mm3 (150-450); RBC Distribution Width CV 14.1 % (11.6-14.6); RBC Distribution Width SD 41.9 fl (35.1-43.9); Red Blood Count 5.03 M/mm3 (4.6-6.2); White Blood Count 6.4 K/mm3 (4.4-11.0)
[2019-01-24 22:53] LABS: Bacteria 0 SEEN /hpf (None Seen); Mucous, Urine 0 SEEN /hpf (<or=2+)
[2019-01-24 23:00] LABS: Color, Urine Yellow (Yellow); Glucose, Dipstick Normal (Normal); Ketone-Dipstick Negative (Negative); Leukocyte Esterase-Dipstick 500 /ul (Negative); Nitrite-Dipstick Negative (Negative); Occult Blood-Urine 250 /ul (Negative); Protein-Dipstick 100 mg/dl (Negative); Urine Bilirubin Dipstick Negative (Negative); Urine Clarity Sl. Cloudy (Clear); Urine Urobilinogen Normal (Normal); Urine pH 6.5 (5.0 - 8.0)
[2019-01-24 23:03] VITALS: BP 195/94; PULSE 66; RESP 19; O2SAT 97
[2019-01-24 23:08] LABS: Red Blood Cells-Urine 25-50 SEEN /hpf (0-5); White Blood Cells 25-50 SEEN /hpf (0-5)
[2019-01-24 23:09] LABS: Squamous Epithelial Cells - UA 0-5 SEEN /hpf (0-5)
[2019-01-24 23:12] LABS: Anion Gap 5 (5-15); BUN 22 mg/dL (7-18); BUN/Creat Ratio 13.6 RATIO (10-20); Calcium,Total 9.2 mg/dL (8.5-10.1); Chloride 106 mmol/L (98-107); Creatinine, Serum 1.62 mg/dL (0.70-1.30); EST Glomerular Filtration Rate 44 mL/min (>60); Est Glom Filt Rate - Afr Amer 53 mL/min (>60); Estimated Creatinine Clearance 41.25 ml/min; Glucose 142 mg/dL (74-106); Potassium 3.9 mmol/L (3.5-5.1); Sodium Level 139 mmol/L (136-145)
[2019-01-24 23:38] VITALS: BP 186/73; PULSE 54; RESP 19; O2SAT 97
[2019-01-25] MEDS: Ketorolac 15 MG/ML Vial IV (00:11)
[2019-01-25] MEDS: fentaNYL 100 MCG/2 ML Ampul 25 MCG IV (00:11)
[2019-01-25] MEDS: Smz/Tmp Ds Tablet 1 TABLET PO (00:12)
[2019-01-25 00:46] LABS: Bedside Glucose 144 mg/dL (70-110)
[2019-01-25 01:21] VITALS: BP 186/73; PULSE 56; RESP 16; O2SAT 96
== END 2019-01-25 01:22 | disposition home or self-care (01) ==
PROVIDERS: Emergency Provider Emergency Medicine; Family Provider Family Medicine; PCP Family Medicine
DX: R10.9 Unspecified abdominal pain (principal); N20.0 Calculus of kidney; R16.2 Hepatomegaly with splenomegaly, not elsewhere classified
CPT/HCPCS: 74176; 80048; 81001; 82962; 85025; 87086; 87088; 96361; 96374; 96375; 99285; J7030; A4216; J2405

== ENCOUNTER → 2019-05-25 11:33 | Outpatient (CLI) | payer MEDICARE, OTHER, SELFPAY ==
[2019-04-12 12:48] VITALS: BMI 48.8
[2019-05-25 15:57] LABS: Absolute Neutrophil Count 4.4 X10^3/uL (2.0-7.7); Basophil# 0.03 X10^3/uL; Basophil% 0.5 % (0-1); Eosinophils% 3.1 % (0-5); Hematocrit 40.9 % (40-54); Hemoglobin 12.5 g/dL (13.0-16.5); Lymphocyte % 18.8 % (19-41); Mean Corp Hgb Conc 30.6 g/dL (32-36); Mean Corpuscular Hgb 27.2 pg (27.0-32.0); Mean Corpuscular Volume 88.9 fL (80-94); Mean Platelet Vol. 10.4 fl (6.2-12.0); Monocyte# 0.55 X10^3/uL; Monocyte% 8.6 % (0-10); NRBC Flagged by Analyzer 0 % (0-5); Neutrophil # 4.38 X10^3/uL (2.7-7.7); Neutrophil % 68.7 % (47-70); Platelet Count 222 K/mm3 (150-450); RBC Distribution Width CV 14.5 % (11.6-14.6); RBC Distribution Width SD 46.4 fl (35.1-43.9); White Blood Count 6.4 K/mm3 (4.4-11.0)
[2019-05-25 15:59] LABS: Anion Gap 3 (5-15); BUN 22 mg/dL (7-18); BUN/Creat Ratio 12.8 RATIO (10-20); Calcium,Total 8.5 mg/dL (8.5-10.1); Chloride 107 mmol/L (98-107); Creatinine, Serum 1.72 mg/dL (0.70-1.30); EST Glomerular Filtration Rate 41 mL/min (>60); Est Glom Filt Rate - Afr Amer 50 mL/min (>60); Glucose 90 mg/dL (74-106); Potassium 3.9 mmol/L (3.5-5.1); Sodium Level 140 mmol/L (136-145)
== END ==
PROVIDERS: Family Provider Family Medicine; PCP Family Medicine; Visit Provider Family Medicine
DX: K26.9 Duodenal ulcer, unspecified as acute or chronic, without hemorrhage or perforation (principal); N18.3 Chronic kidney disease, stage 3 (moderate); D63.1 Anemia in chronic kidney disease; E11.29 Type 2 diabetes mellitus with other diabetic kidney complication
CPT/HCPCS: 36415; 80048; 83036; 85025

== ENCOUNTER 2019-07-10 07:24 | Observation (INO) | payer MEDICARE, OTHER, SELFPAY ==
[2019-04-12 12:48] VITALS: BMI 48.8
[2019-07-10] VITALS (17 sets, daily range): BP systolic 149–207; BP diastolic 61–85; PULSE 41–57; RESP 11–18; TEMP 36.6–37.2; O2SAT 95–100; BMI 49.1; BMI 48.2
--- NOTE | 2019-07-10 07:30 | EKG12_ITS ---
Test Reason : CP Blood Pressure : / mmHG Vent. Rate : 045 BPM Atrial Rate : 045 BPM P-R Int : 274 ms QRS Dur : 164 ms QT Int : 488 ms P-R-T Axes : 085 -83 040 degrees QTc Int : 422 ms Poor data quality, interpretation may be adversely affected Sinus bradycardia with 1st degree A-V block Right bundle branch block Left anterior fascicular block Bifascicular block Abnormal ECG Confirmed by SUMMER RAZO, KARISSA ([id number]), editor magazine GLORIA RANDALL ([id number]) on 07/12/2019 11:25:15 AM Referred By: CORNELIO Confirmed By:KRAISSA WHEELER MD
[2019-07-10 07:44] LABS: Absolute Lymphocyte Count 1.05 X10^3/uL (0.83-4.51); Absolute Neutrophil Count 4.6 X10^3/uL (2.0-7.7); Basophil# 0.04 X10^3/uL; Basophil% 0.6 % (0-1); Eosinophil# 0.16 X10^3/uL; Eosinophils% 2.5 % (0-5); Hematocrit 42.5 % (40-54); Hemoglobin 13.3 g/dL (13.0-16.5); Lymphocyte # 1.05 X10^3/ul (4.0); Lymphocyte % 16.6 % (19-41); Mean Corp Hgb Conc 31.3 g/dL (32-36); Mean Corpuscular Hgb 27.2 pg (27.0-32.0); Mean Corpuscular Volume 86.9 fL (80-94); Mean Platelet Vol. 9.4 fl (6.2-12.0); Monocyte# 0.44 X10^3/uL; NRBC Flagged by Analyzer 0 % (0-5); Neutrophil # 4.59 X10^3/uL (2.7-7.7); Neutrophil % 72.8 % (47-70); Platelet Count 200 K/mm3 (150-450); RBC Distribution Width CV 13.4 % (11.6-14.6); RBC Distribution Width SD 42.1 fl (35.1-43.9); Red Blood Count 4.89 M/mm3 (4.6-6.2); White Blood Count 6.3 K/mm3 (4.4-11.0)
--- NOTE | 2019-07-10 07:51 | RAD_ITS ---
STUDY: X-RAY CHEST REASON FOR EXAM: Male, 78 years old. CHEST PAIN TECHNIQUE: AP upright portable view. COMPARISON: 10/18/2018. FINDINGS: Cylindrical electronic device in the left lower chest is unchanged. The lungs are clear and expanded. There is no demonstrated pleural abnormality. Mild cardiomegaly is unchanged. Normal mediastinum and denys. Normal visualized pulmonary arteries. Normal visualized aortic arch and descending thoracic aorta. Normal visualized thoracic spine. There may be old fracture deformity in the region of the right lateral sixth and seventh rib. This may explain the elliptical density overlying the right peripheral 6 and seventh rib. This was present previously. Normal clavicles, shoulders and left rib cage. There is no demonstrated abnormality of the visualized soft tissue structures of the upper abdomen. RAD/Chest 1 View (Portable) IMPRESSION: 1. No acute cardiopulmonary pathology. 2. No significant interval change when compared to 07/08/2018. Electronically Signed: Dallas Castro MD at 8:13 EST , Service support ,
--- NOTE | 2019-07-10 07:52 | ED.VIS.GEN ---
History of Present Illness Chief Complaint: Chest Pain Informant: Patient Onset: Today Maximum Severity: Mild Narrative: History of insulin-dependent diabetes mellitus, GI bleed recently indicates he woke with chest pressure rating to his right chest, he went to bed feeling fine, he has no history of RI PE or DVT, has been on iron and has had black stools for months, he has a chronic cough, the chest pain is improved without any specific therapy from the emergency department, He describes it as a discomfort no orthopnea or PND no abdominal pain he has chronic leg edema Past Medical History - Allergies and Home Meds Allergies/Adverse Reactions: Allergies MARGIE Inhibitors Allergy (Unknown, Verified 07/10/19 07:32) Unknown cefepime Allergy (Verified 07/10/19 07:32) Other WEAKNESS & FALLING ipodate [Ipodate] Allergy (Verified 07/10/19 07:32) Shortness of breath levofloxacin [Levofloxacin] Allergy (Verified 07/10/19 07:32) Anaphylaxis lisinopril Allergy (Verified 07/10/19 07:32) Shortness of breath ofloxacin Allergy (Verified 07/10/19 07:32) Unknown Quinolones Allergy (Verified 07/10/19 07:32) Anaphylaxis Primary Care Physician: Wili Nelson DO [Primary Care Provider] - Past Medical History: - Surgical History: - Smoking Status: Former smoker - Family History Maternal Family History: Family History (Last Reviewed 04/12/19 @ 16:27 by Greg Toscano MD) Father Colon cancer Mother Cancer Sister CAD (coronary artery disease) Family History: Reports: Cancer Paternal Family History: Family History (Last Reviewed 04/12/19 @ 16:27 by Greg Toscano MD) Father Colon cancer Mother Cancer Sister CAD (coronary artery disease) Family History: Reports: Cancer Offspring Family History: Family History (Last Reviewed 04/12/19 @ 16:27 by Greg Toscano MD) Father Colon cancer Mother Cancer Sister CAD (coronary artery disease) Family History: Reports: - Review of Systems ROS: - Beatties and as above General: Denies: Chills, Fever, Sweats Eyes: Denies: Visual changes - bilaterally, Diplopia ENT: Denies: Rhinorrhea, Sore throat Cardiovascular: Denies: Chest pain, Palpitations Respiratory: Denies: Dyspnea, Cough, Dyspnea on exertion Gastrointestinal: Denies: Abdominal pain, Nausea, Vomiting, Diarrhea, Melena, Hematochezia Genitourinary: Denies: Dysuria, Hematuria, Frequency Musculoskeletal: Denies: Back pain, Extremity Pain Skin: Denies: Rash, Wounds Neurological: Denies: Headache, Weakness, Numbness Allergy: Denies: Uticaria Physical Exam Vital Signs/Narrative: Vital Signs Temp Pulse Resp BP Pulse Ox 07/10/19 07:34 97 07/10/19 07:25 98.9 F 47 L 11 L 167/66 H 98 General: Well nourished, Well developed, No Acute Distress Head: Normocephalic, Atraumatic Eyes: Perrl, EOMI ENT: Moist mucous membranes, No rhinorrhea Neck: Supple, Nontender Cardiovascular: Regular rate, Regular rhythm, No murmurs Respiratory: No distress, CTA bilaterally, Chest nontender Abdomen: Soft, Nontender, Nondistended, Normal bowel sounds Back: Nontender, Normal Inspection Extremities: Nontender, Edema. Negative for: Calf Tenderness Skin: Normal color, No rash Neurological: Alert, Oriented x3, Cranial nerves II-XII grossly intact, Normal Strength, Normal Sensation Psychological: Normal affect, Normal Mood Diagnostic/Tx/Re-eval - Medical Decision Making Patient's EKG shows sinus rhythm bradycardia rate 45, first-degree block right bundle pattern this time he is resting comfortably his symptoms are practically resolved will obtain screening evaluation Screening evaluation is generally unremarkable labs are within normal range, see those results, chest x-ray per evaluation nothing acute the patient has had a an event recorder implanted in the past to evaluate for cardiac dysrhythmia that was negative by his reports, he believes he saw Dr. Zoran Parmar in the past In addition he was on Eliquis prior to his GI bleed that was discontinued, he now recalls he is was on Eliquis related to unspecified heart disease and what he believes was a pulmonary embolism 30 years ago, he has had duplex scans lower extremities a few months ago that showed no DVT and he is not known to have any type of recent history for DVT, he has known chronic renal insufficiency with a creatinine in the range of 2.0 at baseline so CTA angios not available I discussed all the above with him at this time given the nature of his chest pain his diabetes is age and the complicated nature of his history as above the patient will be seen by the hospitalist for admission and further management Admit stable Impression final Chest pain etiology unclear, history of recent GI bleed, 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
[2019-07-10 08:00] LABS: Anion Gap 3 (5-15); BUN 24 mg/dL (7-18); BUN/Creat Ratio 13.3 RATIO (10-20); Calcium,Total 8.8 mg/dL (8.5-10.1); Chloride 111 mmol/L (98-107); Creatinine, Serum 1.81 mg/dL (0.70-1.30); EST Glomerular Filtration Rate 39 mL/min (>60); Est Glom Filt Rate - Afr Amer 47 mL/min (>60); Estimated Creatinine Clearance 36.92 ml/min; Glucose 200 mg/dL (74-106); Sodium Level 141 mmol/L (136-145)
--- NOTE | 2019-07-10 09:55 | HP.PCM_ITS ---
Problem List (1) Chest pain Status: Acute (2) Paroxysmal atrial fibrillation Status: Chronic (3) Right bundle branch block (RBBB) Status: Chronic (4) History of pulmonary embolism Status: Chronic (5) Essential (primary) hypertension Status: Chronic (6) History of loop recorder Status: Chronic (7) Bradycardia Status: Chronic (8) Thromboembolism Status: Chronic (9) HLD (hyperlipidemia) Status: Chronic Qualifiers: (10) Bifascicular bundle branch block Status: Chronic History of Present Illness Date of Admission: 07/10/19 Chief Complaint: Chest pain today. The patient is a 78 year old M with history of bifascicular block on loop recorder, paroxysmal A. fib and other multiple comorbidities as mentioned below came to ED with chest pain, pressure-like, heaviness, midsternal with radiation to both shoulders started in the morning about 4 AM with no aggravating, relieving or precipitating factor. chest pain lasted for about half an hour. As per the patient he did not had chest pain or shortness of breath on exertion in last 1 month. Denies associated symptoms of shortness of breath, palpitation, diaphoresis, dizziness. He was last admitted between 10/18/2018 to 10/22/2018 for acute GI blood loss anemia and was found to have duodenal ulcer on EGD. At that time all blood thinners including Eliquis and aspirin were discontinued. EMS and ED ED EKG personally and independently reviewed. EKG shows sinus bradycardia at 45 bpm first-degree AV block, bifascicular block. No significant ST-T changes. On the floor repeat EKG shows sinus rhythm with 58 bpm with no significant change from previous EKG. First troponin negative. [] Chest x-ray was independently reviewed and does show acute cardiopulmonary change. Past Medical History Past Medical History (Chronic Problems): Chronic Problems (Last Reviewed 04/12/19 @ 16:27 by Greg Phillips MD) Paroxysmal atrial fibrillation (Chronic) Right bundle branch block (RBBB) (Chronic) History of pulmonary embolism (Chronic) Essential (primary) hypertension (Chronic) History of loop recorder (Chronic 03/2018) Bradycardia (Chronic) Thromboembolism (Chronic) HLD (hyperlipidemia) (Chronic) Bifascicular bundle branch block (Chronic) Medical History: Medical History (Last Reviewed 04/12/19 @ 16:27 by Greg Phillips MD) Right bundle branch block (RBBB) (Chronic) I45.10 History of pulmonary embolism (Chronic) Z86.711 Essential (primary) hypertension (Chronic) I10 Bradycardia (Chronic) R00.1 Thromboembolism (Chronic) I74.9 HLD (hyperlipidemia) (Chronic) E78.5 Bifascicular bundle branch block (Chronic) I45.2 BPH (benign prostatic hyperplasia) N40.0 COPD (chronic obstructive pulmonary disease) J44.9 Chronic renal failure, stage 3 (moderate) N18.3 Colon polyps Duodenal ulcer K26.9 Family history of colon cancer Z80.0 History of depression Z86.59 History of other venous thrombosis and embolism Z86.718 Noncompliance Z91.19 with CPAP and follow up and with diet NILO (obstructive sleep apnea) G47.[address] 18/12 cm of water Super obesity E66.9 Type II diabetes mellitus, uncontrolled E11.65 MARLON (acute kidney injury) N17.9 Acute blood loss anemia D62 Hypotension I95.9 Allergies MARGIE Inhibitors Allergy (Unknown, Verified 07/10/19 07:32) Unknown cefepime Allergy (Verified 07/10/19 07:32) Other WEAKNESS & FALLING ipodate [Ipodate] Allergy (Verified 07/10/19 07:32) Shortness of breath levofloxacin [Levofloxacin] Allergy (Verified 07/10/19 07:32) Anaphylaxis lisinopril Allergy (Verified 07/10/19 07:32) Shortness of breath ofloxacin Allergy (Verified 07/10/19 07:32) Unknown Quinolones Allergy (Verified 07/10/19 07:32) Anaphylaxis Home Medications: Ambulatory Orders Medication Instructions Recorded Atorvastatin Calcium [Lipitor] 40 mg PO QHS 05/29/15 Citalopram [Celexa] 40 mg PO DAILY 05/29/15 Tamsulosin HCl [Flomax] 0.8 mg PO DAILY 07/08/16 Gabapentin [Neurontin] 300 mg PO BID 03/11/18 Isosorbide Mononitrate [Imdur] 30 mg PO DAILY 03/12/18 Insulin Lispro [Humalog KwikPen] 20 unit SQ TIDCM 09/16/18 metoprolol succinate 25 mg 25 mg PO DAILY tab 09/23/18 tablet,extended release 24 hr Albuterol Sulfate [Proair 2 puff INHALATION Q4H PRN PRN 05/10/19 Respiclick] Ferrous Sulfate 325 mg PO BID 10/29/18 omeprazole 20 mg tablet,delayed 40 mg PO DAILY tab 04/12/19 release Surgical History: Surgical History (Last Reviewed 04/12/19 @ 16:27 by Greg Phillips MD) History of loop recorder (Chronic) Onset Date: 03/2018 Z98.890 History of esophagogastroduodenoscopy (EGD) Z98.890 10/24/18,10/29/18 Surgical History: - Psychiatric History: No pertinent psych hx Smoking Status: Former smoker - *Family History Maternal Family History: Family History (Last Reviewed 04/12/19 @ 16:27 by Greg Phillips MD) Father Colon cancer Mother Cancer Sister CAD (coronary artery disease) History Items: Cancer Paternal Family History: Family History (Last Reviewed 04/12/19 @ 16:27 by Greg Phillips MD) Father Colon cancer Mother Cancer Sister CAD (coronary artery disease) History Items: Cancer Offspring Family History: Family History (Last Reviewed 04/12/19 @ 16:27 by Greg Phillips MD) Father Colon cancer Mother Cancer Sister CAD (coronary artery disease) History Items: - Review of Systems Constitutional: Reports: Weakness, - - Morbid obesity.. Denies: Chills, Fever, Weight Change HEENT: Denies: Head Aches, Sinus Congestion, Sinus Drainage Cardiovascular: Reports: Chest Pain. Denies: Palpitations Respiratory: Reports: - - Sleep apnea. Denies: Cough, Shortness of breath at rest, Sputum production Gastrointestinal: Reports: -. Denies: Abdominal Pain, Nausea, Vomiting Genitourinary: Denies: Dysuria, Frequency, Hematuria, Urgency Musculoskeletal: Reports: Hand Pain. Denies: Joint Pain, Joint Tenderness Skin: Denies: Rash, Wounds Neurological: Reports: Balance problems. Denies: Focal weakness, Numbness, Tingling Psychiatric: Denies: Anxiety, Depression, Homicidal Ideations, Suicidal Ideations Hematologic/ Lymphatic: Denies: Easy Bruising, Easy Bleeding VTE Information - Inpt Only VTE Present on Admission: No VTE Mechan Device Prophylaxis: SCD's, None VTE Pharm Prophylaxis ordered?: No Patient Problems: Active and Suspected Problems (Last Reviewed 04/12/19 @ 16:27 by Greg Phillips MD) Chest pain (Acute) - Physical Exam Vitals/I&O's: Vital Signs Temp Pulse Resp BP Pulse Ox 98.9 F 41 L 11 L 158/61 H 99 07/10/19 07:25 07/10/19 09:21 07/10/19 09:21 07/10/19 09:21 07/10/19 09:21 Oxygen Flow Rate (L/min) 2 Oxygen Delivery Method Nasal Cannula Weight: 361 lb 15.984 oz Body Mass Index (BMI) 49.1 Finger Stick Blood Glucose 144 General: Alert, Oriented x3, Cooperative HEENT: Atraumatic, PERRLA, EOMI, Normocephalic Neck: Supple, No JVD, Negative Carotid Bruits Lungs: Clear to auscultation, No rhonchi, No wheeze, No rales, Diminished - Air entry diminished in bilateral lung bases Cardiovascular: Regular rate, Regular Rhythm, Normal S1, Normal S2, No murmurs Abdomen: Bowel Sounds Present, Soft, Non Tender, Non-Distended Extremities: Capillary Refill Less than 3 Seconds, Edema Skin: - - Stasis dermatitis changes on both lower legs Musculoskeletal: No Tenderness to Palpation of Joints or Extremities, Arthritic Changes Neurological: Cranial nerves II-XII grossly intact, Deep Tendon Reflexes 2+/4 and Symmetrical, Neuro grossly intact Psych/Mental Status: Normal Affect, Appropriate Laboratory Results 07/10/19 07:36: WBC 6.3, RBC 4.89, Hgb 13.3, Hct 42.5, MCV 86.9, MCH 27.2, MCHC 31.3 L, RDW Std Deviation 42.1, RDW Coeff of Hilary 13.4, Plt Count 200, MPV 9.4, Immature Gran % (Auto) 0.500, Neut % (Auto) 72.8 H, Lymph % (Auto) 16.6 L, Elliott % (Auto) 7.0, Eos % (Auto) 2.5, Baso % (Auto) 0.6, Absolute Neuts (auto) 4.6, Absolute Lymphs (auto) 1.05, Nucleated RBC % 0 07/10/19 07:36: Sodium 141, Potassium 4.0, Chloride 111 H, Carbon Dioxide 27.0, Anion Gap 3 L, BUN 24 H, Creatinine 1.81 H, Estim Creat Clear Calc 36.92, Est GFR (MDRD) Af Amer 47 L, Est GFR (MDRD) Non-Af 39 L, BUN/Creatinine Ratio 13.3, Glucose 200 H, Calcium 8.8, Troponin I < 0.015 Assessment/Plan All Active Problems (Last Reviewed 04/12/19 @ 16:27 by Greg Phillips MD) Chest pain (Acute) The patient is a 78 year old M with history of bifascicular block on loop recorder, paroxysmal A. fib and other multiple comorbidities as mentioned below came to ED with chest pain, pressure-like, heaviness, midsternal with radiation to both shoulders started in the morning about 4 AM with no aggravating, relieving or precipitating factor. 1. Atypical chest pain most probably unstable angina: Patient is being admitted in PCU. Serial troponin enzymes. If troponins becomes elevated patient will need Lexiscan nuclear stress test tomorrow a.m. discussed with Dr. phillips and he would like to see tomorrow a.m. 2. Arrhythmia: Paroxysmal A. fib, degree AV block with bifascicular block; chronic in nature: Currently patient is in sinus rhythm. Heart rate is controlled. 3. COPD, advanced and obstructive sleep apnea with moderate pulmonary hypertension: DuoNeb every 4 hourly as needed. Patient wears BiPAP at night. No home oxygen or oxygen at night. 4. Acute kidney injury on CKD stage III: BUN/creatinine is elevated, 24/1.81. Patient baseline BUN runs around 15-22 and creatinine runs around 1.5. Creatinine is slowly going up, last one 1.72 in May 2019. Monitor kidney f unction and electrolytes. Monitor intake and output. 5 History of GI bleed duodenal ulcer in October 2018: As mentioned above, it seems patient is not on oral anticoagulant or antiplatelet agent. This was discontinued during last admission for GI bleed. 6. Diabetes mellitus type 2: Glucose is 200. Overall diabetes seems to be uncontrolled. Accu-Chek is seen just cover with Humalog sliding scale. 7. Hypertension: Blood pressure is elevated 186/85. Lisinopril is on hold secondary to acute kidney injury. Started on hydralazine 50 mg twice daily and hydralazine 10 mg IV as needed as needed for systolic blood pressure more than 180 mmHg. DVT prophylaxis: Lovenox 40 mg subcu daily. Monitor kidney function and CBC and adjust accordingly. Discontinue if platelet count drops less than 50,000 or hemoglobin less than 8 g% Other comorbidities include dyslipidemia, CKD stage III, super morbid obesity, BPH, anxiety and depression: Home medication reconciliation done. Multiple comorbidities complicates the present care and expect difficult and delay recovery. Total time of the visit including total time spent in counseling or coordination of care, (more than 50% of the total time, spent in obtaining medical information from nurses and other ancillary care providers), discussion with patient and his near the bedside, review of labs and imaging is 40 minutes Advanced directive/living will: Patient does not have living will. It seems patient never had prior discussion about advanced directive/CODE STATUS. Full code Discussed in front of the patient daughter and son-in-law. And all options given including full code, DNR CC arrest and DNR CC patient opted for full code. Patient wants full resuscitation including chest compressions/CPR, intubation, vent management, central venous catheter if needed for vasopressor and artificial tube feeding. Total time spent in [id number] encounter in discussion of advanced directive 18 minutes. Laboratory Results 07/10/19 07:36: WBC 6.3, RBC 4.89, Hgb 13.3, Hct 42.5, MCV 86.9, MCH 27.2, MCHC 31.3 L, RDW Std Deviation 42.1, RDW Coeff of Hilary 13.4, Plt Count 200, MPV 9.4, Immature Gran % (Auto) 0.500, Neut % (Auto) 72.8 H, Lymph % (Auto) 16.6 L, Elliott % (Auto) 7.0, Eos % (Auto) 2.5, Baso % (Auto) 0.6, Absolute Neuts (auto) 4.6, Absolute Lymphs (auto) 1.05, Nucleated RBC % 0 07/10/19 07:36: Sodium 141, Potassium 4.0, Chloride 111 H, Carbon Dioxide 27.0, Anion Gap 3 L, BUN 24 H, Creatinine 1.81 H, Estim Creat Clear Calc 36.92, Est GFR (MDRD) Af Amer 47 L, Est GFR (MDRD) Non-Af 39 L, BUN/Creatinine Ratio 13.3, Glucose 200 H, Calcium 8.8, Troponin I < 0.015 07/10/19 11:15: Troponin I < 0.015 07/10/19 11:15: Magnesium 2.3 07/10/19 12:10: POC Glucose 127 H 07/10/19 13:08: Troponin I < 0.015 07/10/19 16:23: POC Glucose 168 H Code Visit OBSV E&M: 34069 Initial observation care L3 Procedures: 52538 Advncd Care Plan 30 Min
--- NOTE | 2019-07-10 10:46 | EKG12_ITS ---
Test Reason : AM EKG Blood Pressure : / mmHG Vent. Rate : 050 BPM Atrial Rate : 050 BPM P-R Int : 270 ms QRS Dur : 158 ms QT Int : 488 ms P-R-T Axes : 090 -61 007 degrees QTc Int : 444 ms Sinus bradycardia with sinus arrhythmia with 1st degree A-V block Left axis deviation Right bundle branch block Inferior infarct , age undetermined , cannnot be excluded Abnormal ECG Confirmed by AI RAZO, BUSHRA ([id number]), medical transcription editor GLORIA RANDALL ([id number]) on 07/13/2019 11:07:21 AM Referred By: TAY Confirmed By:BUSHRA CLOUD MD
[2019-07-10 11:41] LABS: Magnesium 2.3 mg/dL (1.6-2.6)
[2019-07-10] MEDS: 0.9% Normal Saline 1,000 ML 75 ML IV (11:56)
[2019-07-10] MEDS: Citalopram 40 MG TABLET PO (12:11)
[2019-07-10] MEDS: Pantoprazole Sodium 40 MG Tablet PO (12:11)
[2019-07-10] MEDS: Ferrous Sulfate 325 MG Tablet PO (12:11)
[2019-07-10 12:20] LABS: Bedside Glucose 127 mg/dL (70-110)
[2019-07-10] MEDS: Enoxaparin 40 MG/0.4 ML Syringe SC (13:46)
[2019-07-10] MEDS: Isosorbide Mononitrate 30 MG Tablet PO (13:46)
[2019-07-10] MEDS: hydrALAZINE 50 MG Tablet PO ×2 (15:18→21:03)
[2019-07-10 16:31] LABS: Bedside Glucose 168 mg/dL (70-110)
[2019-07-10] MEDS: Gabapentin 300 MG Capsule PO (17:28)
[2019-07-10] MEDS: Insulin Lispro 100 UNIT/ML INSULN.PEN 20 UNIT SC (17:32)
[2019-07-10] MEDS: Tamsulosin HCl 0.4 MG Capsule 0.8 MG PO (17:32)
[2019-07-10] MEDS: Atorvastatin Calcium 40 MG Tablet PO (21:03)
[2019-07-10] MEDS: Nystatin Powder 15gm Bottle 1 APPLIC TOPICAL (21:04)
[2019-07-10 21:45] LABS: Bedside Glucose 228 mg/dL (70-110)
[2019-07-11] VITALS (18 sets, daily range): BP systolic 125–179; BP diastolic 65–85; PULSE 52–81; RESP 16–18; TEMP 36.4–36.8; O2SAT 94–98
[2019-07-11 05:38] LABS: Absolute Lymphocyte Count 0.94 X10^3/uL (0.83-4.51); Absolute Neutrophil Count 3.5 X10^3/uL (2.0-7.7); Basophil# 0.03 X10^3/uL; Basophil% 0.6 % (0-1); Eosinophil# 0.17 X10^3/uL; Eosinophils% 3.4 % (0-5); Hematocrit 40.2 % (40-54); Lymphocyte # 0.94 X10^3/ul (4.0); Lymphocyte % 18.7 % (19-41); Mean Corp Hgb Conc 29.9 g/dL (32-36); Mean Corpuscular Hgb 27.7 pg (27.0-32.0); Mean Corpuscular Volume 92.8 fL (80-94); Mean Platelet Vol. 10.9 fl (6.2-12.0); Monocyte% 7.9 % (0-10); NRBC Flagged by Analyzer 0 % (0-5); Neutrophil # 3.49 X10^3/uL (2.7-7.7); Neutrophil % 69.2 % (47-70); Platelet Count 167 K/mm3 (150-450); RBC Distribution Width CV 13.7 % (11.6-14.6); RBC Distribution Width SD 46.4 fl (35.1-43.9); Red Blood Count 4.33 M/mm3 (4.6-6.2)
--- NOTE | 2019-07-11 05:55 | EKG12_ITS ---
Test Reason : CP ADMISSION Blood Pressure : / mmHG Vent. Rate : 058 BPM Atrial Rate : 058 BPM P-R Int : 304 ms QRS Dur : 166 ms QT Int : 488 ms P-R-T Axes : 087 -73 017 degrees QTc Int : 479 ms Sinus bradycardia with sinus arrhythmia with 1st degree A-V block with occasional Premature ventricul ar complexes Left axis deviation Right bundle branch block Inferior infarct, age undetermined, cannot be excluded Abnormal ECG Confirmed by AI RAZO, BUSHRA ([id number]), avid editor GLORIA RANDALL ([id number]) on 07/13/2019 11:09:00 AM Referred By: TAY Confirmed By:BUSHRA CLOUD MD
[2019-07-11] MEDS: 0.9% Saline Lock 10 ML Syringe IV (06:00)
[2019-07-11] MEDS: hydrALAZINE 50 MG Tablet PO (06:02)
[2019-07-11 06:07] LABS: BUN 23 mg/dL (7-18); Creatinine, Serum 1.87 mg/dL (0.70-1.30); EST Glomerular Filtration Rate 37 mL/min (>60); Estimated Creatinine Clearance 35.73 ml/min; Glucose 84 mg/dL (74-106)
[2019-07-11 06:08] LABS: Anion Gap 5 (5-15); BUN/Creat Ratio 12.3 RATIO (10-20); Calcium,Total 7.8 mg/dL (8.5-10.1); Chloride 112 mmol/L (98-107); Cholesterol 92 mg/dL (200); Est Glom Filt Rate - Afr Amer 45 mL/min (>60); High Density Lipoprotein 30 mg/dL; Potassium 4.8 mmol/L (3.5-5.1); Sodium Level 137 mmol/L (136-145); Thyroid Stim Hormone (TSH) 2.05 uIU/mL (0.358-3.74); Triglycerides 91 mg/dL; Very Low Density Lipoprotein 18 mg/dL (5-40)
[2019-07-11 06:16] LABS: Bedside Glucose 86 mg/dL (70-110)
--- NOTE | 2019-07-11 08:17 | ECHOCS_ITS ---
Reason For Study: Chest Pain Procedure This was a 2D Doppler, Color Flow transthoracic echocardiogram. The study was technically difficult. Contrast injection was performed. Exam performed portable in patient room. Left Ventricle Normal LV size. Moderate concentric left ventricular hypertrophy. Left ventricular systolic function is normal. The estimated ejection fraction is 60 %. No regional wall motion abnormalities noted. Right Ventricle Normal right ventricle. Normal systolic function. Atria The left atrium is moderately enlarged. Normal right atrium. Aortic Valve The aortic valve is not well visualized. Great Vessels Normal aortic root. The pulmonary artery is normal size. Normal inferior vena cava. Pericardium/Pleural No pericardial effusion. Medication Diluted definity 4ml given slow IV push to enhance endocardial definition. MMode/2D Measurements & Calculations LVIDd: 5.4 cm IVSd: 1.4 cm Ao root diam: 3.0 cm LVIDs: 3.0 cm LVPWd: 1.6 cm RVDd: 5.4 cm FS: 44.6 % LAV(MOD-bp): 67.7 ml LA dimension(2D): 5.4 cm LA A4 area: 25.9 cm2 LAV(MOD-bp) Indexed: 24.7 ml/m2 LAV(MOD-sp2): 60.4 ml LAV(MOD-sp4): 71.6 ml RA A4 area: 22.1 cm2 Doppler Measurements & Calculations MV E max sander: 92.9 cm/sec Lat Peak E' Sander: 6.7 cm/sec Med Peak E' Sander: 5.7 cm/sec MV A max sander: 93.2 cm/sec E/E' lat: 13.8 E/E' med: 16.2 MV E/A: 1.00 Ao V2 max: 192.8 cm/sec LV V1 max: 106.4 cm/sec PA V2 max: 81.5 cm/sec Ao max P.9 mmHg LV V1 max P.5 mmHg Ao V2 mean: 142.2 cm/sec Ao mean P.9 mmHg Ao V2 VTI: 46.4 cm Interpretation Summary Normal LV size. Left ventricular systolic function is normal. Moderate concentric left ventricular hypertrophy. Contrast injection was performed. Ordering Physician: Greg Toscano Referring Physician: Wili Nelson Performed By: Gaby Flood RDCS, RVT
--- NOTE | 2019-07-11 08:19 | CON.PCM_ITS ---
Reason for Consult Date of Consultation: 07/11/19 Reason for Consultation: Chest discomfort History of Present Illness: The patient is a 78 year old M with a previous history of paroxysmal atrial fibrillation, hypertension, obesity, bifascicular block status post implantation of a loop recorder who presented to the emergency room over the weekend with chest discomfort described as a heaviness across his chest. He was exerting himself when the above happened. He decided to present to the emergency room was evaluated and subsequently admitted for further evaluation. He has had no further neck arm or jaw discomfort suggest angina. He was initially scheduled to have a stress test but it was felt that on account of his body habitus that the yield will be low. He preferred to have further invasive work-up. He has had no dizziness or diaphoresis no near syncope or syncope his loop recorder has been interrogated and no significant abnormality has been detected thus far. [] Past Medical History Allergies/Adverse Reactions: Allergies MARGIE Inhibitors Allergy (Unknown, Verified 07/10/19 10:27) edema cefepime Allergy (Verified 07/10/19 10:27) weakness and falling WEAKNESS & FALLING ipodate [Ipodate] Allergy (Verified 07/10/19 07:32) Shortness of breath levofloxacin [Levofloxacin] Allergy (Verified 07/10/19 07:32) Anaphylaxis lisinopril Allergy (Verified 07/10/19 07:32) Shortness of breath ofloxacin Allergy (Verified 07/10/19 10:27) Other Quinolones Allergy (Verified 07/10/19 07:32) Anaphylaxis Home Medications: Ambulatory Orders Medication Instructions Recorded Atorvastatin Calcium [Lipitor] 40 mg PO QHS 05/29/15 Citalopram [Celexa] 40 mg PO DAILY 05/29/15 Tamsulosin HCl [Flomax] 0.8 mg PO DAILY 07/08/16 Gabapentin [Neurontin] 300 mg PO BID 03/11/18 Isosorbide Mononitrate [Imdur] 30 mg PO DAILY 03/12/18 Insulin Lispro [Humalog KwikPen] 20 unit SQ TIDCM 09/16/18 metoprolol succinate 25 mg 25 mg PO DAILY tab 09/23/18 tablet,extended release 24 hr Albuterol Sulfate [Proair 2 puff INHALATION Q4H PRN PRN 10/29/18 Respiclick] Ferrous Sulfate 325 mg PO BID 10/29/18 omeprazole 20 mg tablet,delayed 40 mg PO DAILY tab 04/12/19 release Past Medical History (Chronic Problems): Chronic Problems (Last Reviewed 04/12/19 @ 16:27 by Greg Toscano MD) Paroxysmal atrial fibrillation (Chronic) Right bundle branch block (RBBB) (Chronic) History of pulmonary embolism (Chronic) Essential (primary) hypertension (Chronic) History of loop recorder (Chronic 03/2018) Bradycardia (Chronic) Thromboembolism (Chronic) HLD (hyperlipidemia) (Chronic) Bifascicular bundle branch block (Chronic) Surgical History: - Psychiatric History: No pertinent psych hx - *Family History Maternal Family History: Family History (Last Reviewed 04/12/19 @ 16:27 by Greg Toscano MD) Father Colon cancer Mother Cancer Sister CAD (coronary artery disease) History Items: Cancer Paternal Family History: Family History (Last Reviewed 04/12/19 @ 16:27 by Greg Toscano MD) Father Colon cancer Mother Cancer Sister CAD (coronary artery disease) History Items: Cancer Offspring Family History: Family History (Last Reviewed 04/12/19 @ 16:27 by Greg Toscano MD) Father Colon cancer Mother Cancer Sister CAD (coronary artery disease) History Items: - Smoking Status: Former smoker Alcohol: None Drugs: None Review of Systems - Review of Systems General: Denies: Fever, Night Sweats, Fatigue HEENT: Denies: Vision Change Cardiovascular: Reports: Chest Discomfort, Chest Discomfort at Rest, Chest Discomfort with Exertion. Denies: Shortness of Breath, Orthopnea, PND, Peripheral Edema, Palpitations, Lightheadedness, Dizziness, Near Syncope, Syncope Respiratory: Denies: Cough, Sputum Production, Hemoptysis Gastrointestinal: Denies: Hematemesis, Hematochezia, Melena Genitourinary: Denies: Dysuria, Hematuria Muscoloskeletal: Denies: Myalgias Skin: Denies: Rash Neurological: Denies: Dizziness Psychiatric: Denies: Anxiety Endocrine: Denies: Heat Intolerance Subjectve: Pleasant gentleman in no distress Objective: Vital Signs Temp Pulse Resp BP Pulse Ox 97.8 F 53 L 16 127/75 H 97 07/11/19 06:00 07/11/19 06:49 07/11/19 06:00 07/11/19 06:02 07/11/19 06:00 Oxygen Flow Rate (L/min) 2 Oxygen Delivery Method Room Air Weight: 361 lb 8.929 oz Body Mass Index (BMI) 48.2 Finger Stick Blood Glucose 144 Intake and Output for Last 24 Hours 07/09/19 07/10/19 07/11/19 23:59 23:59 23:59 Intake Total 980 / 980 1000 / 1000 Output Total 375 / 375 575 / 575 Balance 605 / 605 425 / 425 General: Awake, Alert, Oriented x 3 HEENT: PERRL, EOMI, Sclera Non Icteric Neck: Supple, Good ROM, No Lymph Node Enlargement Lungs: Clear to auscultation Cardiovascular: Regular Rhythm, Normal S1, Normal S2, No Murmurs, No Rubs, No Gallops Vascular: No Carotid Bruits, Normal Femoral Pulses, Normal Radial Pulses, Normal Dorsalis Pedal Pulse, Normal Posterior Tibial Pulses Abdomen: Bowel Sounds Present, Soft, Non Tender, No HSM, No Organomegaly Extremities: No Cyanosis, No Clubbing, No edema Musculoskeletal: No Erythema Skin: No Rashes Lymphatic: No Lymph Node Enlargement Neurological: No Focal Motor or Sensory Deficit Psych/Mental Status: Appropriate 07/10/19 11:15: Troponin I < 0.015 07/10/19 11:15: Magnesium 2.3 07/10/19 13:08: Troponin I < 0.015 07/11/19 04:42: WBC 5.0, RBC 4.33 L, Hgb 12.0 L, Hct 40.2, MCV 92.8 D, MCH 27.7, MCHC 29.9 L, Plt Count 167, MPV 10.9, Immature Gran % (Auto) 0.200, Neut % (Auto) 69.2, Lymph % (Auto) 18.7 L, [place] % (Auto) 7.9, Eos % (Auto) 3.4, Baso % (Auto) 0.6, Absolute Neuts (auto) 3.5, Nucleated RBC % 0 07/11/19 04:42: Sodium 137, Potassium 4.8, Chloride 112 H, Carbon Dioxide 20.0 L , Anion Gap 5, BUN 23 H, Creatinine 1.87 H, Est GFR (MDRD) Af Amer 45 L, Est GFR (MDRD) Non-Af 37 L, BUN/Creatinine Ratio 12.3, Glucose 84, Calcium 7.8 L, Triglycerides 91, Cholesterol 92, LDL Cholesterol 44, VLDL Cholesterol 18, HDL Cholesterol 30 L Rhythm: EKG: Normal sinus rhythm with a rate of 50 bpm with a left anterior fascicular block and a right bundle branch block Assessment/Plan 1. Chest discomfort * The etiology of the above is not clear at this particular time. With his risk factors of hypertension and obesity and hyperlipidemia. It is felt that we should evaluate the above with an invasive approach with a cardiac catheterization. The risk benefits alternatives of been explained to him he understands and agrees to proceed. Depending on the findings further recommendations will be made. * 2. Hypertension * His blood pressure is not under good control at this particular time and I would recommend that we make any other medication changes regarding this. * Will discontinue isosorbide Add Norvasc 10 mg a day Continue beta-zen 25 mg a day 3. Paroxysmal atrial fibrillation * He previously had a history of paroxysmal atrial fibrillation he is not had any more of this detected on his loop recorder and the plan will be for us to continue monitoring this. He is off the anticoagulation currently. * He also has a left anterior fascicular block and a right bundle branch block which is stable. * * Thank you for allowing me to participate in the care of your patient. Please don't hesitate to call if any issues arise * Addendum: Cardiac catheterization performed today demonstrated nonobstructive coronary artery disease noted. The plan at this time will be to continue to treat him with aggressive medical therapy.
[2019-07-11] MEDS: Metoprolol(XL)Succ 25 MG Tablet PO (09:02)
[2019-07-11] MEDS: Isosorbide Mononitrate 30 MG Tablet PO (09:02)
[2019-07-11] MEDS: 0.9% Normal Saline 1,000 ML 15 ML IV (09:10)
--- NOTE | 2019-07-11 10:42 | CASEMGMT ---
BRITTNI CHAVIRA NOTE: To room to discuss/review CLIFFORD form. Pt leaving room at this time for heart cath. BRITTNI CHAVIRA to attempt later. Birgit ASCENCION BRITTNI CM
--- NOTE | 2019-07-11 10:44 | NURSING ---
This RN called report to BRITTNI Juan in clinical lab assistant.
[2019-07-11 11:05] LABS: Bedside Glucose 93 mg/dL (70-110)
--- NOTE | 2019-07-11 11:36 | CL.D_ITS ---
Patient Name: WADE HERNANDEZ Study Date: 07/11/2019 Performing: Greg Toscano MD Ht: 72.04 inches 183 cm : 1940 Wt: 361.56 lbs 164 kg Age: 78 Gender: male BSA: 2.74 PROCEDURE(S) PERFORMED RF48-ORL/COR CLINICAL PROFILE AND INDICATIONS Indications: Suspected CAD Heart Failure: None Stress/Imaging Stress/Image Study Performed: No CAD Presentations: Symptom unlikely to be ischemic. CONCLUSIONS Mild non obstructive CAD. HTN RECOMMENDATIONS Medical therapy DESCRIPTION OF PROCEDURE The patient arrived to the procedure lab. The risks and benefits of the procedure as well as a full d escription of our services here and current unavailability of surgical backup were fully explained to the patient and/or their significant other prior to the catheterization. The Timeout was completed, verifying the correct patient and procedure. The patient's procedural site was prepped and draped in the usual fashion. Local anesthetic was given subcutaneously to right radial region with Lidocaine 2% . Using a modified Seldinger technique, arterial access was obtained via the right radial artery, a 6 Fr sheath was inserted. Left Coronary Artery selective angiography was performed in multiple views u sing a 5 Fr. 4.0 [place] catheter. Right Coronary Artery selective angiography was then performed in mu ltiple views using a 5 Fr. 4.0 [place] catheter.The arterial sheath was pulled and a TR Band was applie d for hemostasis CORONARY ANGIOGRAPHY DOMINANCE: Right Dominant LEFT HEART ASSESSMENT Normal Left Ventricular systolic function LEFT MAIN: Angiographically normal LEFT ANTERIOR DESCENDING ARTERY: Mild luminal irregularities less than 30% CIRCUMFLEX ARTERY: Mild luminal irregularities less than 30% RIGHT CORONARY ARTERY: Moderate luminal irregularities up to 50% COMPLICATIONS No Complications PROCEDURE MEDICATIONS Fentanyl 50 mcg IV Versed 1 mg IV Oxygen: 2 L/min via nasal cannula Benadryl 50 mg IV @ 07/11/2019 11:15:20 Solu-medrol 125 mg IV 07/11/2019 11:15:10 SUMMARY OF HEMODYNAMIC DATA Time AIR REST ECG 11:08:07 AO 208/89 (132) SA 11:14:47 Signed By Greg Toscano MD On 07/11/2019 11:35:50 AM Greg Toscano MD
[2019-07-11] MEDS: Citalopram 40 MG TABLET PO (12:09)
[2019-07-11] MEDS: Ferrous Sulfate 325 MG Tablet PO (12:10)
[2019-07-11] MEDS: Pantoprazole Sodium 40 MG Tablet PO (12:10)
[2019-07-11] MEDS: Nystatin Powder 15gm Bottle 1 APPLIC TOPICAL (12:10)
[2019-07-11] MEDS: Gabapentin 300 MG Capsule PO (12:10)
[2019-07-11] MEDS: amLODIPine 10 MG Tablet PO (12:13)
[2019-07-11 12:20] LABS: Bedside Glucose 80 mg/dL (70-110)
--- NOTE | 2019-07-11 12:23 | CASEMGMT ---
RN CAIT NOTE: To room to talk with pt. Introduced self and role of RN CAIT. Pt being discharged today. Pt denies having any discharge needs. CLIFFORD form reviewed with pt at this time. Denies having any questions. CLIFFORD form signed by pt, copy made and placed on chart, and original given to pt. Pt made aware if he has any questions or any discharge needs, to ask for CM. Pt voices understanding. Birgit MCKNIGHT RN, CM
--- NOTE | 2019-07-11 14:19 | PCM.DC ---
- Discharge Diagnoses Current Active Problems: Current Active and Chronic Problems (Last Reviewed 04/12/19 @ 16:27 by Greg Toscano MD) Chest pain (Acute) You will use the following diet at home:: Cardiac Your food should be the consistency of: Regular Your liquids should be the consistency of: Regular/Thin Call your doctor if you observe: Shortness of breath, Chest pain Instructions: CHEST PAIN, NonCardiac Allergies/Adverse Reactions: Allergies MARGIE Inhibitors Allergy (Unknown, Verified 07/10/19 10:27) edema cefepime Allergy (Verified 07/10/19 10:27) weakness and falling WEAKNESS & FALLING ipodate [Ipodate] Allergy (Verified 07/10/19 07:32) Shortness of breath levofloxacin [Levofloxacin] Allergy (Verified 07/10/19 07:32) Anaphylaxis lisinopril Allergy (Verified 07/10/19 07:32) Shortness of breath ofloxacin Allergy (Verified 07/10/19 10:27) Other Quinolones Allergy (Verified 07/10/19 07:32) Anaphylaxis Medications to take at Discharge Atorvastatin Calcium [Lipitor] 40 mg PO QHS 05/29/15 Citalopram [Celexa] 40 mg PO DAILY 05/29/15 Tamsulosin HCl [Flomax] 0.8 mg PO DAILY 07/08/16 Gabapentin [Neurontin] 300 mg PO BID 03/11/18 Isosorbide Mononitrate [Imdur] 30 mg PO DAILY 03/12/18 Insulin Lispro [Humalog KwikPen] 20 unit SQ TIDCM 09/16/18 metoprolol succinate 25 mg tablet,extended release 24 hr 25 mg PO DAILY tab 09/23/18 Albuterol Sulfate [Proair Respiclick] 2 puff INHALATION Q4H PRN PRN 10/29/18 Ferrous Sulfate 325 mg PO BID 10/29/18 omeprazole 20 mg tablet,delayed release 40 mg PO DAILY tab 04/12/19 Amlodipine [Norvasc] 10 mg PO DAILY #30 tab 07/11/19 The following prescriptions were given: Amlodipine [Norvasc] 10 mg PO DAILY #30 tab Transmission Status: Pending to [facility] Primary Care Physician: Wili Nelson DO [Primary Care Provider] - Within 2 Weeks Test Results: Test results from this visit will be discussed in further detail at your follow-up appointment, if applicable. Please Follow Up With: Jeanne Quintero When: 08/05/2019, already scheduled Please Follow Up With: Lincoln Flood NP-C When: 11/10/2019, already scheduled Proposed Discharge Date: 07/11/19
--- NOTE | 2019-07-11 14:20 | PCM.DC.SUM ---
Discharge Date and Diagnosis - Problem List Patient Problems: Active and Suspected Problems (Last Reviewed 04/12/19 @ 16:27 by Greg Toscano MD) Chest pain (Acute) Date of Admission: 07/10/19 Date of Discharge: 07/11/19 - Primary Discharge Diagnosis Active and Suspected Problems (Last Reviewed 04/12/19 @ 16:27 by Greg Toscano MD) Chest pain (Acute) - Secondary Discharge Diagnosis Chronic Problems (Last Reviewed 04/12/19 @ 16:27 by Greg Toscano MD) Paroxysmal atrial fibrillation (Chronic) Right bundle branch block (RBBB) (Chronic) History of pulmonary embolism (Chronic) Essential (primary) hypertension (Chronic) History of loop recorder (Chronic 03/2018) Bradycardia (Chronic) Thromboembolism (Chronic) HLD (hyperlipidemia) (Chronic) Bifascicular bundle branch block (Chronic) Hospital Course and Treatment Imaging Results: 07/11/19 08:17 Echo Complete [ECHO] Routine Clinical Impression(s) from Imaging Studies Chest X-Ray 07/10/19 07:51 IMPRESSION: 1. No acute cardiopulmonary pathology. 2. No significant interval change when compared to 07/08/2018. Electronically Signed: Dallas Castro MD at 8:13 EST , Service support , Greg Toscano, cardiology Operations: None Procedures: None Summary of Care Provided: The patient is a 78 year old M with chest pain. Patient underwent a left heart catheterization that showed normal atherosclerosis. Patient was brought back and deemed appropriate for discharge. Patient did have issues with retention during his admission. Patient was a started on amlodipine 10 mg daily and will continue with that for the time being. [] Patient Problems: Active and Suspected Problems (Last Reviewed 04/12/19 @ 16:27 by Greg Toscano MD) Chest pain (Acute) - Physical Exam Vitals/I&O's: Vital Signs Temp Pulse Resp BP Pulse Ox 36.4 C L 64 16 125/69 H 96 07/11/19 14:15 07/11/19 14:15 07/11/19 14:15 07/11/19 14:15 07/11/19 14:15 Oxygen Flow Rate (L/min) 2 Oxygen Delivery Method Room Air Weight: 164 kg Body Mass Index (BMI) 48.2 Finger Stick Blood Glucose 144 Intake and Output for Last 24 Hours 07/09/19 07/10/19 07/11/19 23:59 23:59 23:59 Intake Total 980 / 980 1172 / 1172 Output Total 375 / 375 1350 / 1350 Balance 605 / 605 -178 / -178 General: Alert, No apparent distress, Well developed, Well nourished HEENT: Atraumatic, Normocephalic Oral: Moist Mucosa, No Gingival or Mucosal Lesions/ Ulcerations Psych/Mental Status: Normal Affect, Appropriate Laboratory Results 07/10/19 16:23: POC Glucose 168 H 07/10/19 21:09: POC Glucose 228 H 07/11/19 04:42: WBC 5.0, RBC 4.33 L, Hgb 12.0 L, Hct 40.2, MCV 92.8 D, MCH 27.7, MCHC 29.9 L, RDW Std Deviation 46.4 H, RDW Coeff of Hilary 13.7, Plt Count 167, MPV 10.9, Immature Gran % (Auto) 0.200, Neut % (Auto) 69.2, Lymph % (Auto) 18.7 L, [place] % (Auto) 7.9, Eos % (Auto) 3.4, Baso % (Auto) 0.6, Absolute Neuts (auto) 3.5, Absolute Lymphs (auto) 0.94, Nucleated RBC % 0 07/11/19 04:42: Sodium 137, Potassium 4.8, Chloride 112 H, Carbon Dioxide 20.0 L, Anion Gap 5, BUN 23 H, Creatinine 1.87 H, Estim Creat Clear Calc 35.73, Est GFR (MDRD) Af Amer 45 L, Est GFR (MDRD) Non-Af 37 L, BUN/Creatinine Ratio 12.3, Glucose 84, Calcium 7.8 L, Triglycerides 91, Cholesterol 92, LDL Cholesterol 44, VLDL Cholesterol 18, HDL Cholesterol 30 L, TSH 2.05 07/11/19 06:04: POC Glucose 86 07/11/19 09:05: POC Glucose 93 07/11/19 12:07: POC Glucose 80 Current Medications Acetaminophen (Tylenol) 650 mg PO Q6H PRN PRN PRN Reason: Pain Score 1-3/Temp > 100.7 F Albuterol Sulfate (Ventolin Aerosols) 2.5 mg INHALATION Q4H PRN PRN PRN Reason: shortness of breath or wheezin Amlodipine Besylate (Norvasc) 10 mg PO DAILY [facility] Last Admin: 07/11/19 12:13 Dose: 10 mg Documented by: Atorvastatin Calcium (Lipitor) 40 mg PO QHS [facility] Last Admin: 07/10/19 21:03 Dose: 40 mg Documented by: Citalopram Hydrobromide (Celexa) 40 mg PO DAILY [facility] Last Admin: 07/11/19 12:09 Dose: 40 mg Documented by: Enoxaparin Sodium (Lovenox) 40 mg SC DAILY@0600 [facility] Last Admin: 07/11/19 05:27 Dose: Not Given Documented by: Ferrous Sulfate (Ferrous Sulfate) 325 mg PO BIDCM [facility] Last Admin: 07/11/19 12:10 Dose: 325 mg Documented by: Gabapentin (Neurontin) 300 mg PO BIDCM [facility] Last Admin: 07/11/19 12:10 Dose: 300 mg Documented by: Glucagon () 1 mg IM .X1 PRN PRN Reason: Hypoglycemia Hydralazine HCl (Apresoline Iv) 10 mg IV Q4H PRN PRN PRN Reason: SBP>180 mmhg Hydralazine HCl (Apresoline) 50 mg PO BID [facility] Last Admin: 07/11/19 06:02 Dose: 50 mg Documented by: Dextrose (Dextrose 10%-Water) 250 mls @ 999 mls/hr IV .Q16M PRN; Protocol PRN Reason: HYPOGLYCEMIA Sodium Chloride () 1,000 mls @ 15 mls/hr IV .Q48H [facility] Last Infusion: 07/11/19 13:58 Dose: Infused Documented by: Insulin Human Lispro (Humalog Kwikpen (Bkc)) 20 unit SC TIDCM [facility] Last Admin: 07/11/19 12:08 Dose: Not Given Documented by: Melatonin (Melatonin) 3 mg PO QHS PRN PRN PRN Reason: INSOMNIA Metoprolol Succinate (Toprol Xl (Beta Luna)) 25 mg PO DAILY [facility] Last Admin: 07/11/19 09:02 Dose: 25 mg Documented by: Morphine Sulfate () 2 mg IV Q3H PRN PRN PRN Reason: Pain Score 6-10/10 Nitroglycerin (Nitrostat) 0.4 mg SUBLINGUAL Q5M PRN PRN Reason: CARDIAC/CHEST PAIN Nystatin (Mycostatin Powder) 1 applic TOPICAL BID [facility]; Protocol Last Admin: 07/11/19 12:10 Dose: 1 applicatio Documented by: Oxycodone HCl (Oxyir) 5 mg PO Q4H PRN PRN PRN Reason: Pain Score 4-5/10 Pantoprazole Sodium (Protonix) 40 mg PO DAILY [facility] Last Admin: 07/11/19 12:10 Dose: 40 mg Documented by: Prochlorperazine Edisylate (Compazine Iv) 5 mg IV Q4H PRN PRN PRN Reason: Breakthrough Nausea/Vomiting Promethazine HCl (Phenergan) 12.5 mg IV Q6H PRN PRN PRN Reason: Breakthrough Nausea/Vomiting Senna/Docusate Sodium (Senokot-S, Tricia-Colace) 2 tablet PO BID PRN PRN PRN Reason: Constipation Sodium Chloride () 10 - 40 ml IV UD PRN PRN Reason: SALINE FLUSH Last Admin: 07/11/19 06:00 Dose: 10 ml Documented by: Tamsulosin HCl (Flomax) 0.8 mg PO DAILY@1800 [facility] Last Admin: 07/10/19 17:32 Dose: 0.8 mg Documented by: Discharge Diet: Low fat/ Low Cholesterol Discharge Activity: Return to Normal Activity Call your doctor if you observe: Shortness of breath, Chest pain Home Medications: Medications to take at Discharge Atorvastatin Calcium [Lipitor] 40 mg PO QHS 05/29/15 Citalopram [Celexa] 40 mg PO DAILY 05/29/15 Tamsulosin HCl [Flomax] 0.8 mg PO DAILY 07/08/16 Gabapentin [Neurontin] 300 mg PO BID 03/11/18 Isosorbide Mononitrate [Imdur] 30 mg PO DAILY 03/12/18 Insulin Lispro [Humalog KwikPen] 20 unit SQ TIDCM 09/16/18 metoprolol succinate 25 mg tablet,extended release 24 hr 25 mg PO DAILY tab 09/23/18 Albuterol Sulfate [Proair Respiclick] 2 puff INHALATION Q4H PRN PRN 10/29/18 Ferrous Sulfate 325 mg PO BID 10/29/18 omeprazole 20 mg tablet,delayed release 40 mg PO DAILY tab 04/12/19 Amlodipine [Norvasc] 10 mg PO DAILY #30 tab 07/11/19 Following Prescrptions Were Given to Patient: Amlodipine [Norvasc] 10 mg PO DAILY #30 tab Transmission Status: Pending to [facility] Primary Care Physician: Wili Nelson DO [Primary Care Provider] - Within 2 Weeks Please Follow Up With: Jeanne Quintero When: 08/05/2019, already scheduled Please Follow Up With: Lincoln Flood NP-C When: 11/10/2019, already scheduled Patient Instructions: CHEST PAIN, NonCardiac Disposition: Home Minutes spent on discharge:: 328 Patient Condition:: Good Medical Necessity - Tobacco Use Smoking Status: Former smoker Meaningful Use Info Meaningful Use Diagnoses (Choose all that apply): None applicable Code Visit OBSV E&M: 89684 Observation care discharge
--- NOTE | 2019-07-11 15:06 | PHA.DC.COU ---
Pharmacy Services has performed discharge medication counseling for this patient. The patient was counseled on the following discharge medications and changes in medications for homegoing review. The Reason for Use, instructions for use, and potential side effects were reviewed for all new medications. 1. AMLODIPINE The patient's questions regarding all of their medications were answered. The patient demonstrated some understanding but would benefit from further education and reinforcement.
--- NOTE | 2019-07-11 16:16 | CHAPLAIN ---
Type of Pastoral Visit _x__ Initial Visit ___ Follow-up Visit ___ On-call Visit ___ General Patient Visit ___ Spiritual Assessment ___ Family Conference ___ Bereavement ___ Rapid Response ___ Code Blue ___ Other (describe below) Pastoral Care Referral From _x__ Patient ___ Family ___ Nurse ___ Physician ___ Engraving Press Operator ___ Farm Consultant ___ Other (describe below) Sacrament/Intervention _x__ Active listening ___ Anointing ___ Sikhism ___ Bereavement ___ Communion ___ Marcella exploration ___ _x__ Life review _x__ Prayer ___ Reconciliation ___ Sacrament of Sick _x__ Supportive presence ___ Wedding ___ Other (describe below) Pastoral Comments
== END 2019-07-11 14:20 | disposition home or self-care (01) ==
LOC: ED 07:50 → PCU 10:09
PROVIDERS: Admitting Provider Internal Medicine; Emergency Provider Emergency Medicine; PCP Family Medicine
DX: R07.89 Other chest pain (principal); I45.2 Bifascicular block; I48.0 Paroxysmal atrial fibrillation; N17.9 Acute kidney failure, unspecified; I48.20 Chronic atrial fibrillation, unspecified; E78.5 Hyperlipidemia, unspecified; R00.1 Bradycardia, unspecified; E11.22 Type 2 diabetes mellitus with diabetic chronic kidney disease; I25.10 Atherosclerotic heart disease of native coronary artery without angina pectoris; E11.65 Type 2 diabetes mellitus with hyperglycemia; I12.9 Hypertensive chronic kidney disease with stage 1 through stage 4 chronic kidney disease, or unspecified chronic kidney disease; N18.3 Chronic kidney disease, stage 3 (moderate); N40.0 Benign prostatic hyperplasia without lower urinary tract symptoms; G47.33 Obstructive sleep apnea (adult) (pediatric); J44.9 Chronic obstructive pulmonary disease, unspecified; E66.8 Other obesity; Z86.711 Personal history of pulmonary embolism; Z79.4 Long term (current) use of insulin; Z68.42 Body mass index [BMI] 45.0-49.9, adult; Z79.899 Other long term (current) drug therapy; Z87.891 Personal history of nicotine dependence; Z71.3 Dietary counseling and surveillance
CPT/HCPCS: 36415; 71045; 80048; 80061; 82962; 83735; 84443; 84484; 85025; 93005; 93306; 93454; 96360; 96361; 96372; 99152; 99218; 99251; 99285; J7030; Q9957; Q9967; A4216; C1769; C1894; C8929; G0378; G0463

== ENCOUNTER 2019-07-30 12:54 | Observation (INO) | payer MEDICARE, OTHER, SELFPAY ==
[2019-07-10 10:21] VITALS: BMI 48.2
[2019-07-30] VITALS (7 sets, daily range): BP systolic 126–164; BP diastolic 58–78; PULSE 55–76; RESP 16–20; TEMP 36.4–36.9; O2SAT 93–96; BMI 48.1; BMI 47.7; BMI 47.8
--- NOTE | 2019-07-30 14:07 | ED.VISSUMM ---
- ER Visit Summary Date of Service: 07/30/19 Chief Complaint: Abdominal pain History of Present Illness: The patient is a 78 M presenting with abdominal pain. This started 2 days ago. He has had left lower quadrant abdominal pain. He denies nausea, vomiting, diarrhea. He complains of constipation. He denies fever. Denies urinary complaints. He states the pain is worsened when he takes a deep breath. Denies other complaints. Physical Examination: Vitals are stable. Patient is afebrile. Alert no acute distress. HEENT exam is unremarkable. Neck is supple. Lungs are clear and equal bilaterally. Heart is regular rate and rhythm. Abdomen is soft left lower quadrant tenderness with no rebound or guarding Extremities are unremarkable. Skin is warm and dry. No focal neurologic deficit. Remainder of exam is unremarkable. Emergency Department Course and Treatment: Patient was given morphine, Zofran IV. CBC, chemistries unremarkable other than glucose 133, BUN 23, creatinine 1.55. Lipase is normal. Troponin is negative. CTA chest shows positive for pulmonary embolism in the ascending right pulmonary artery. CT abdomen pelvis shows no acute abnormality. Urinalysis shows over 100 white blood cells. Urine culture was sent. He was given Macrobid due to multiple allergies. He was started on Eliquis. Discussed with the hospitalist for admission. Disposition: Admission Impression: Pulmonary embolism, UTI This note was generated with [employer] dictation software. It may contain incorrect words, spelling, and punctuation that were not noted in review of the chart prior to signing ED Disposition - Plan for ED Patient: Referrals: Wili Nelson DO [Primary Care Provider] -
[2019-07-30] MEDS: Ondansetron 4 MG/2 ML Vial IV (14:56)
[2019-07-30] MEDS: Morphine 4 MG/ML Syringe IV (14:56)
[2019-07-30 15:36] LABS: ALB/GLOB Ratio 0.7 RATIO (0.9-2.4); AST(SGOT) 21 U/L (15-37); Alanine Aminotransfer ALT/SGPT 20 U/L (16-61); Albumin, Serum 2.9 g/dL (3.2-5.0); Alkaline Phosphatase 122 U/L (45-117); Anion Gap 3 (5-15); BUN 23 mg/dL (7-18); BUN/Creat Ratio 14.8 RATIO (10-20); Chloride 110 mmol/L (98-107); Creatinine, Serum 1.55 mg/dL (0.70-1.30); EST Glomerular Filtration Rate 46 mL/min (>60); Est Glom Filt Rate - Afr Amer 56 mL/min (>60); Estimated Creatinine Clearance 43.11 ml/min; Globulin 4.4 g/dL (2.2-4.2); Glucose 133 mg/dL (74-106); Lipase 52 U/L (73-393); Potassium 4.4 mmol/L (3.5-5.1); Protein, Total 7.3 g/dL (6.4-8.2); Sodium Level 138 mmol/L (136-145)
[2019-07-30 15:37] LABS: Mucous, Urine 0 SEEN /hpf (<or=2+)
[2019-07-30 15:40] LABS: Absolute Lymphocyte Count 1.11 X10^3/uL (0.83-4.51); Absolute Neutrophil Count 8.4 X10^3/uL (2.0-7.7); Basophil# 0.04 X10^3/uL; Basophil% 0.4 % (0-1); Color, Urine Yellow (Yellow); Eosinophil# 0.21 X10^3/uL; Glucose, Dipstick Normal (Normal); Hematocrit 44.8 % (40-54); Hemoglobin 14.4 g/dL (13.0-16.5); Ketone-Dipstick Negative (Negative); Leukocyte Esterase-Dipstick 500 /ul (Negative); Lymphocyte # 1.11 X10^3/ul (4.0); Lymphocyte % 10.3 % (19-41); Mean Corp Hgb Conc 32.1 g/dL (32-36); Mean Corpuscular Hgb 27.9 pg (27.0-32.0); Mean Corpuscular Volume 86.8 fL (80-94); Mean Platelet Vol. 9.6 fl (6.2-12.0); Monocyte# 0.95 X10^3/uL; Monocyte% 8.9 % (0-10); NRBC Flagged by Analyzer 0 % (0-5); Neutrophil # 8.38 X10^3/uL (2.7-7.7); Nitrite-Dipstick Negative (Negative); Occult Blood-Urine 50 /ul (Negative); Platelet Count 239 K/mm3 (150-450); Protein-Dipstick 100 mg/dl (Negative); RBC Distribution Width CV 13.2 % (11.6-14.6); RBC Distribution Width SD 41.4 fl (35.1-43.9); Red Blood Count 5.16 M/mm3 (4.6-6.2); Urine Bilirubin Dipstick Negative (Negative); Urine Clarity Cloudy (Clear); Urine Urobilinogen Normal (Normal); White Blood Count 10.7 K/mm3 (4.4-11.0)
--- NOTE | 2019-07-30 15:41 | CT_ITS ---
STUDY: CTA CHEST REASON FOR EXAM: Male, 78 years old. PLEURITIC CHEST PAIN RADIATION DOSAGE (If Supplied By Facility): CTDIvol = ( 25.39 ) mGy, DLP = ( 828.48 ) mGycm TECHNIQUE: The examination was performed with the intravenous administration of 100 CC ISOVUE 370. Post-processing of the angiographic images was performed, with multiplanar reformation and 3D reconstruction. Individualized dose optimization techniques were used for this CT. COMPARISON: None. FINDINGS: Insertable calender wind up tender. Normal enhancement of the main pulmonary artery and right and left pulmonary arteries. Normal enhancement of the bilateral peripheral pulmonary arteries. Linear filling defect within the ascending right pulmonary artery consistent with pulmonary embolus. Normal thoracic aorta and visualized great vessels. There is no demonstrated aortic dissection. Normal heart and pericardium. Normal mediastinum. Normal hilar regions. Normal visualized trachea and bronchi. The lungs are well expanded. Some dependent bibasilar atelectasis. 3.5 cm pleural-based lipoma adjacent to the right upper lobe. Normal chest wall structures. There are degenerative changes of thoracic spine. Normal visualized upper abdomen. CT/CTA Chest W/WO Contrast IMPRESSION: Positive for pulmonary embolism in the ascending right pulmonary artery. Electronically Signed: Maxwell Cerda MD at 18:51 EST Tel , Service support ,
--- NOTE | 2019-07-30 15:42 | CT_ITS ---
STUDY: CT ABDOMEN AND PELVIS WITH CONTRAST REASON FOR EXAM: Male, 78 years old. LLQ PAIN RADIATION DOSAGE (If Supplied By Facility): CTDIvol = ( 24.18 ) mGy, DLP = ( 1236.79 ) mGycm TECHNIQUE: Transaxial images were obtained from the dome of the diaphragm to the symphysis pubis with oral contrast. IV 100mL Isovue-370 was administered. Sagittal and coronal images were reconstructed. Individualized dose optimization techniques were used for this CT. COMPARISON: 01/24/2019 FINDINGS: Some dependent bibasilar atelectasis. The visualized portions of the heart are within normal limits. 1 cm cyst in the lateral segment the left lobe of the liver. Normal gallbladder and extrahepatic biliary system. Normal spleen. Normal pancreas. Normal bilateral adrenal glands. Multiple bilateral renal cysts. Normal visualized stomach. Normal small intestine. Normal colon. There is non-visualization of the appendix. Normal abdominal aorta. Normal inferior vena cava. Normal retroperitoneum. Normal urinary bladder. There are prostatic calcifications. Normal abdominal wall. Normal osseous structures. CT/Abdomen/Pelvis WITH Contrast IMPRESSION: No acute abnormality. Electronically Signed: Maxwell Cerda MD at 18:34 EST Tel , Service support ,
[2019-07-30 15:51] LABS: Squamous Epithelial Cells - UA 0-5 SEEN /hpf (0-5)
[2019-07-30 15:53] LABS: White Blood Cells >100 SEEN /hpf (0-5)
[2019-07-30 15:55] LABS: Bacteria RARE /hpf (None Seen); Red Blood Cells-Urine 0-5 SEEN /hpf (0-5)
[2019-07-30 18:06] LABS: Bedside Glucose 121 mg/dL (70-110)
--- NOTE | 2019-07-30 19:02 | EKG12_ITS ---
Test Reason : ABDOMINAL PAIN Blood Pressure : / mmHG Vent. Rate : 051 BPM Atrial Rate : 051 BPM P-R Int : 270 ms QRS Dur : 154 ms QT Int : 474 ms P-R-T Axes : 056 -63 003 degrees QTc Int : 436 ms Sinus bradycardia with marked sinus arrhythmia with 1st degree A-V block Left axis deviation Right bundle branch block Possible Lateral infarct , age undetermined Inferior infarct , age undetermined Abnormal ECG Confirmed by MICHAEL RAZO, MARCIN ([id number]), index editor RONEL NAVAS ([id number]) on 08/04/2019 2:55:25 PM Referred By: Confirmed By:BRII RODRIGUEZ MD
--- NOTE | 2019-07-30 19:21 | PCM.HP.STD ---
Problem List (1) Paroxysmal atrial fibrillation Status: Chronic (2) History of pulmonary embolism Status: Chronic (3) Essential (primary) hypertension Status: Chronic (4) Chest pain Status: Acute (5) Right bundle branch block (RBBB) Status: Chronic (6) History of loop recorder Status: Chronic (7) Thromboembolism Status: Chronic (8) HLD (hyperlipidemia) Status: Chronic Qualifiers: (9) Bifascicular bundle branch block Status: Chronic History of Present Illness Date of Admission: 07/30/19 Chief Complaint: abdominal pain The patient is a 78 year old M with a significant history of obstructive sleep apnea; proximal A. fib; pulmonary embolism; CKD stage III depression who presents emergency department with abdominal pain. Abdominal pain is located at the left upper and left lower quadrants. The pain is severe. The pain is sharp. The pain improves which when he lies down still. The pain worsens at the right upper quadrant and when he takes a deep breath. At the emergency department his urine was abnormal. However patient denies any urinary symptoms. CT of her abdomen and pelvis was unremarkable. CTA showed pulmonary embolism in the central right pulmonary artery. Patient denies any family history of clots. His last colonoscopy reportedly was 5 to 10 years ago. He denies any recent travel. He denies immobility. Past Medical History Past Medical History (Chronic Problems): Chronic Problems (Last Reviewed 07/31/19 @ 00:56 by Ramez Rivera MD) Paroxysmal atrial fibrillation (Chronic) Right bundle branch block (RBBB) (Chronic) History of pulmonary embolism (Chronic) Essential (primary) hypertension (Chronic) History of loop recorder (Chronic 03/2018) Thromboembolism (Chronic) HLD (hyperlipidemia) (Chronic) Bifascicular bundle branch block (Chronic) Medical History: Medical History (Last Reviewed 07/31/19 @ 01:47 by Ramez Rivera MD) Right bundle branch block (RBBB) (Chronic) I45.10 History of pulmonary embolism (Chronic) Z86.711 Essential (primary) hypertension (Chronic) I10 Bradycardia (Inactive) R00.1 Thromboembolism (Chronic) I74.9 HLD (hyperlipidemia) (Chronic) E78.5 Bifascicular bundle branch block (Chronic) I45.2 BPH (benign prostatic hyperplasia) N40.0 COPD (chronic obstructive pulmonary disease) J44.9 Chronic renal failure, stage 3 (moderate) N18.3 Colon polyps Duodenal ulcer K26.9 Family history of colon cancer Z80.0 History of depression Z86.59 History of other venous thrombosis and embolism Z86.718 Noncompliance Z91.19 with CPAP and follow up and with diet NILO (obstructive sleep apnea) G47.[address] 18/12 cm of water Super obesity E66.9 Type II diabetes mellitus, uncontrolled E11.65 MARLON (acute kidney injury) N17.9 Acute blood loss anemia D62 Hypotension I95.9 Allergies MARGIE Inhibitors Allergy (Unknown, Verified 07/30/19 12:56) edema cefepime Allergy (Verified 07/30/19 12:56) weakness and falling WEAKNESS & FALLING ipodate [Ipodate] Allergy (Verified 07/30/19 12:56) Shortness of breath levofloxacin [Levofloxacin] Allergy (Verified 07/30/19 12:56) Anaphylaxis lisinopril Allergy (Verified 07/30/19 12:56) Shortness of breath ofloxacin Allergy (Verified 07/30/19 12:56) Other Quinolones Allergy (Verified 07/30/19 12:56) Anaphylaxis Home Medications: Ambulatory Orders Medication Instructions Recorded Atorvastatin Calcium [Lipitor] 40 mg PO QHS 05/29/15 Citalopram [Celexa] 40 mg PO DAILY 05/29/15 Tamsulosin HCl [Flomax] 0.8 mg PO DAILY 07/08/16 Gabapentin [Neurontin] 300 mg PO BID 03/11/18 Isosorbide Mononitrate [Imdur] 30 mg PO DAILY 03/12/18 Insulin Lispro [Humalog KwikPen] 20 unit SQ TIDCM 09/16/18 metoprolol succinate 25 mg 25 mg PO DAILY tab 09/23/18 tablet,extended release 24 hr Albuterol Sulfate [Proair 2 puff INHALATION Q4H PRN PRN 10/29/18 Respiclick] Ferrous Sulfate 325 mg PO BID 10/29/18 omeprazole 20 mg tablet,delayed 40 mg PO DAILY tab 04/12/19 release Amlodipine [Norvasc] 10 mg PO DAILY #30 tab 07/11/19 Surgical History: Surgical History (Last Reviewed 07/31/19 @ 00:56 by Ramez Rivera MD) History of loop recorder (Chronic) Onset Date: 03/2018 Z98.890 History of esophagogastroduodenoscopy (EGD) Z98.890 10/24/18,10/29/18 History of left heart catheterization Onset Date: 07/11/19 Z98.890 Surgical History: - Psychiatric History: No pertinent psych hx Lives: Spouse/ Significant Other Smoking Status: Former smoker - *Family History Maternal Family History: Family History (Last Reviewed 07/31/19 @ 01:47 by Ramez Rivera MD) Father Colon cancer Mother Cancer Sister CAD (coronary artery disease) History Items: Cancer Paternal Family History: Family History (Last Reviewed 07/31/19 @ 01:47 by Ramez Rivera MD) Father Colon cancer Mother Cancer Sister CAD (coronary artery disease) History Items: Cancer Offspring Family History: Family History (Last Reviewed 07/31/19 @ 01:47 by Ramez Rivera MD) Father Colon cancer Mother Cancer Sister CAD (coronary artery disease) History Items: - Review of Systems Constitutional: Denies: Chills, Fever, Weight Change HEENT: Denies: Head Aches, Sinus Congestion, Sinus Drainage Cardiovascular: Denies: Palpitations Respiratory: Denies: Cough, Shortness of breath at rest, Sputum production Gastrointestinal: Reports: Abdominal Pain. Denies: Nausea, Vomiting Genitourinary: Denies: Dysuria Musculoskeletal: Denies: Joint Pain, Joint Tenderness Skin: Denies: Rash, Wounds Neurological: Denies: Numbness, Tingling, Focal weakness Psychiatric: Denies: Anxiety, Depression, Homicidal Ideations, Suicidal Ideations Hematologic/ Lymphatic: Denies: Easy Bruising, Easy Bleeding VTE Information - Inpt Only VTE Present on Admission: Yes - PE; started on eliquis VTE Mechan Device Prophylaxis: None VTE Pharm Prophylaxis ordered?: No Reason prophylaxis not ordered:: Treatment Not Indicated - Started on Eliquis for PE. - Physical Exam Vitals/I&O's: Vital Signs Temp Pulse Resp BP Pulse Ox 97.6 F L 76 18 164/78 H 95 07/30/19 12:54 07/30/19 12:54 07/30/19 15:01 07/30/19 12:54 07/30/19 12:54 Oxygen Delivery Method Room Air Weight: 161.025 kg Body Mass Index (BMI) 48.1 Finger Stick Blood Glucose 121 Intake and Output for Last 24 Hours 07/28/19 07/29/19 07/30/19 23:59 23:59 23:59 Intake Total 500 / 500 Balance 500 / 500 General: Alert, Oriented x3, Cooperative HEENT: Atraumatic, PERRLA, EOMI, Normocephalic Neck: Supple, No JVD, Negative Carotid Bruits Lungs: Clear to auscultation, Normal air movement Cardiovascular: Regular rate, Normal S1, Normal S2, No murmurs Abdomen: Bowel Sounds Present, Soft, Tender - left upper abdomen Extremities: No edema, Capillary Refill Less than 3 Seconds Skin: No rashes, - - Hyperpigmentation of bilateral shins and with scales. Musculoskeletal: No Tenderness to Palpation of Joints or Extremities Neurological: Cranial nerves II-XII grossly intact Psych/Mental Status: Normal Affect, Appropriate Laboratory Results 07/30/19 14:50: WBC Cancelled, Corrected WBC Cancelled, RBC Cancelled, Hgb Cancelled, Hct Cancelled, MCV Cancelled, MCH Cancelled, MCHC Cancelled, RDW Std Deviation Cancelled, RDW Coeff of Hilary Cancelled, Plt Count Cancelled, MPV Cancelled, Immature Gran % (Auto) Cancelled, Neut % (Auto) Cancelled, Lymph % (Auto) Cancelled, [place] % (Auto) Cancelled, Eos % (Auto) Cancelled, Baso % (Auto) Cancelled, Absolute Neuts (auto) Cancelled, Absolute Lymphs (auto) Cancelled, Total Counted Cancelled, Neutrophils % (Manual) Cancelled, Band Neutrophils % Cancelled, Lymphocytes % (Manual) Cancelled, Monocytes % (Manual) Cancelled, Eosinophils % (Manual) Cancelled, Basophils % (Manual) Cancelled, Metamyelocytes % Cancelled, Myelocytes % Cancelled, Promyelocytes % Cancelled, Blast Cells % Cancelled, Plasma Cell % (Manual) Cancelled, Other Cells % Cancelled, Nucleated RBC % Cancelled, Nucleated RBCs/100 WBC Cancelled, Differential Comment Cancelled, Diff Path Review Cancelled, Hypersegmented Neuts Cancelled, Atypical Lymphocytes Cancelled, Reactive Lymphocytes Cancelled, Smudge Cells Cancelled, Toxic Granulation Cancelled, Toxic Vacuolation Cancelled, Dohle Bodies Cancelled, Mandie Rods Cancelled, Platelet Estimate Cancelled, Plt Morphology Comment Cancelled, RBC Morphology Cancelled, Polychromasia Cancelled, Hypochromasia Cancelled, Poikilocytosis Cancelled, Basophilic Stippling Cancelled, Anisocytosis Cancelled, Microcytosis Cancelled, Macrocytosis Cancelled, Spherocytes Cancelled, Sickle Cells Cancelled, Target Cells Cancelled, Tear Drop Cells Cancelled, Ovalocytes Cancelled, Stomatocytes Cancelled, [place] Bodies Cancelled, [place] Cells Cancelled, Bite Cells Cancelled, Crenated Cell Cancelled, Acanthocytes (Spur) Cancelled, Rouleaux Cancelled, Schistocytes Cancelled 07/30/19 14:50: Sodium 138, Potassium 4.4, Chloride 110 H, Carbon Dioxide 25.0, Anion Gap 3 L, BUN 23 H, Creatinine 1.55 H, Estim Creat Clear Calc 43.11, Est GFR (MDRD) Af Amer 56 L, Est GFR (MDRD) Non-Af 46 L, BUN/Creatinine Ratio 14.8, Glucose 133 H, Calcium 9.0, Total Bilirubin 0.70, AST 21, ALT 20, Alkaline Phosphatase 122 H, Troponin I < 0.015, Total Protein 7.3, Albumin 2.9 L, Globulin 4.4 H, Albumin/Globulin Ratio 0.7 L, Lipase 52 L 07/30/19 15:27: Urine Color Yellow, Urine Clarity Cloudy, Urine pH 6.0, Ur Specific Norco 1.010, Urine Protein 100 H, Urine Glucose (UA) Normal, Urine Ketones Negative, Urine Occult Blood 50 H, Urine Nitrite Negative, Urine Bilirubin Negative, Urine Urobilinogen Normal, Ur Leukocyte Esterase 500 H, Urine RBC 0-5 SEEN, Urine WBC >100 SEEN, Ur Squamous Epith Cells 0-5 SEEN, Urine Bacteria RARE, Urine Mucus 0 SEEN 07/30/19 15:27: WBC 10.7, RBC 5.16, Hgb 14.4, Hct 44.8, MCV 86.8, MCH 27.9, MCHC 32.1, RDW Std Deviation 41.4, RDW Coeff of Hilary 13.2, Plt Count 239, MPV 9.6, Immature Gran % (Auto) 0.400, Neut % (Auto) 78.0 H, Lymph % (Auto) 10.3 L, [place] % (Auto) 8.9, Eos % (Auto) 2.0, Baso % (Auto) 0.4, Absolute Neuts (auto) 8.4 H, Absolute Lymphs (auto) 1.11, Nucleated RBC % 0 07/30/19 17:58: POC Glucose 121 H Assessment/Plan All Active Problems (Last Reviewed 07/31/19 @ 00:56 by Ramez Rivera MD) Chest pain (Acute) The patient is a 78 year old M with a significant history of obstructive sleep apnea; proximal A. fib; pulmonary embolism; CKD stage III depression who presents emergency department with abdominal pain; and found to have abnormal urinalysis and a pulmonary embolism in the ascending right pulmonary artery. Pulmonary embolism Previously was on Eliquis for pulmonary embolism however Eliquis was discontinued because of GI bleed. Discussed with Ed doc to start patient on Eliquis Received morphine for pain in the emergency department. Restart patient on oxycodone for moderate and severe pain. Zofran as needed for nausea and vomiting. Senokot-S as needed for constipation. Check troponin, BNP and echocardiogram. Acute cystitis Although patient denies any urinary symptoms because of his abdominal pain we will continue patient on Macrodantin started from the emergency department. Hypertension On presentation his blood pressure was now within goal Amlodipine , Imdur and metoprolol continued. Trend blood pressure and adjust blood pressure medications. BPH Flomax continued. Hyperlipidemia Lipitor continued. Diabetes mellitus with hyperglycemia Blood glucose on BMP was 133. De-escalate home prandial insulin to a lesser dose. Add correction scale insulin. First-degree AV block. Parameters placed for metoprolol. CKD stage III Stable Obstructive Sleep apnea BiPAP continued DVT prophylaxis Not indicated since patient has been started on Eliquis for acute pulmonary emboli. Code Visit OBSV E&M: [id number] Initial observation care L3
[2019-07-30] MEDS: Nitrofurantoin Macrocrystals 100 MG Capsule PO ×2 (19:49→22:30)
[2019-07-30] MEDS: APIXABAN 5 MG TABLET 10 MG PO (19:50)
[2019-07-30 21:37] LABS: BNP,B-Type NATRIURETIC PEPTIDE 73.6 pg/mL (0-100)
[2019-07-30] MEDS: Atorvastatin Calcium 40 MG Tablet PO (22:30)
[2019-07-30] MEDS: Gabapentin 300 MG Capsule PO (22:30)
[2019-07-30] MEDS: oxyCODONE 5 MG Tablet PO (22:30)
[2019-07-30 22:40] LABS: Bedside Glucose 139 mg/dL (70-110)
[2019-07-31] VITALS (8 sets, daily range): BP systolic 105–136; BP diastolic 51–71; PULSE 44–60; RESP 12–20; TEMP 36.6–36.7; O2SAT 92–100
[2019-07-31 03:20] LABS: Absolute Lymphocyte Count 0.95 X10^3/uL (0.83-4.51); Absolute Neutrophil Count 6.8 X10^3/uL (2.0-7.7); Basophil# 0.04 X10^3/uL; Basophil% 0.4 % (0-1); Eosinophils% 1.1 % (0-5); Hemoglobin 11.9 g/dL (13.0-16.5); Lymphocyte # 0.95 X10^3/ul (4.0); Lymphocyte % 10.6 % (19-41); Mean Corp Hgb Conc 32.2 g/dL (32-36); Mean Corpuscular Hgb 28.1 pg (27.0-32.0); Mean Corpuscular Volume 87.3 fL (80-94); Mean Platelet Vol. 9.6 fl (6.2-12.0); Monocyte# 1.04 X10^3/uL; Monocyte% 11.6 % (0-10); NRBC Flagged by Analyzer 0 % (0-5); Neutrophil # 6.81 X10^3/uL (2.7-7.7); Neutrophil % 75.9 % (47-70); Platelet Count 215 K/mm3 (150-450); RBC Distribution Width CV 13.6 % (11.6-14.6); RBC Distribution Width SD 42.9 fl (35.1-43.9); Red Blood Count 4.24 M/mm3 (4.6-6.2)
[2019-07-31 03:34] LABS: Anion Gap 6 (5-15); BUN 27 mg/dL (7-18); BUN/Creat Ratio 13.3 RATIO (10-20); Calcium,Total 8.3 mg/dL (8.5-10.1); Chloride 104 mmol/L (98-107); Creatinine, Serum 2.03 mg/dL (0.70-1.30); EST Glomerular Filtration Rate 34 mL/min (>60); Est Glom Filt Rate - Afr Amer 41 mL/min (>60); Estimated Creatinine Clearance 32.92 ml/min; Glucose 183 mg/dL (74-106); Potassium 4.6 mmol/L (3.5-5.1); Sodium Level 136 mmol/L (136-145)
[2019-07-31] MEDS: amLODIPine 10 MG Tablet PO (09:13)
[2019-07-31] MEDS: APIXABAN 5 MG TABLET 10 MG PO (09:13)
[2019-07-31] MEDS: Gabapentin 300 MG Capsule PO (09:14)
[2019-07-31] MEDS: Citalopram 40 MG TABLET PO (09:14)
[2019-07-31] MEDS: Tamsulosin HCl 0.4 MG Capsule 0.8 MG PO (09:14)
[2019-07-31] MEDS: Ferrous Sulfate 325 MG Tablet PO (09:15)
[2019-07-31] MEDS: Nitrofurantoin Macrocrystals 100 MG Capsule PO (09:15)
[2019-07-31] MEDS: Isosorbide Mononitrate 30 MG Tablet PO (09:15)
[2019-07-31] MEDS: Pantoprazole Sodium 40 MG Tablet PO (09:15)
[2019-07-31] MEDS: oxyCODONE 5 MG Tablet 10 MG PO (09:21)
--- NOTE | 2019-07-31 09:53 | PCM.DC ---
You will use the following diet at home:: Cardiac Discharge Activity: Return to Normal Activity Call your doctor if you observe: Fever of 101 or Higher, - - worsening abdominal pain. increased pain with urination. Instructions: Pulmonary Embolism, Understanding Urinary Tract Infections (UTIs), Urinary Tract Infections in Men Allergies/Adverse Reactions: Allergies MARGIE Inhibitors Allergy (Unknown, Verified 07/30/19 12:56) edema cefepime Allergy (Verified 07/30/19 12:56) weakness and falling WEAKNESS & FALLING ipodate [Ipodate] Allergy (Verified 07/30/19 12:56) Shortness of breath levofloxacin [Levofloxacin] Allergy (Verified 07/30/19 12:56) Anaphylaxis lisinopril Allergy (Verified 07/30/19 12:56) Shortness of breath ofloxacin Allergy (Verified 07/30/19 12:56) Other Quinolones Allergy (Verified 07/30/19 12:56) Anaphylaxis Medications to take at Discharge Atorvastatin Calcium [Lipitor] 40 mg PO QHS 05/29/15 Citalopram [Celexa] 40 mg PO DAILY 05/29/15 Tamsulosin HCl [Flomax] 0.8 mg PO DAILY 07/08/16 Gabapentin [Neurontin] 300 mg PO BID 03/11/18 Isosorbide Mononitrate [Imdur] 30 mg PO DAILY 03/12/18 Insulin Lispro [Humalog KwikPen] 20 unit SQ TIDCM 09/16/18 metoprolol succinate 25 mg tablet,extended release 24 hr 25 mg PO DAILY tab 09/23/18 Albuterol Sulfate [Proair Respiclick] 2 puff INHALATION Q4H PRN PRN 10/29/18 Ferrous Sulfate 325 mg PO BID 10/29/18 omeprazole 20 mg tablet,delayed release 40 mg PO DAILY tab 04/12/19 Amlodipine [Norvasc] 10 mg PO DAILY #30 tab 07/11/19 Acetaminophen [Tylenol Tablet] 650 mg PO Q6H PRN PRN tab 07/31/19 Apixaban [Eliquis] 5 mg PO BID #60 tab 07/31/19 Ciprofloxacin [Cipro] 250 mg PO BID #10 tab 07/31/19 Oxycodone [Oxyir] 5 mg PO Q6H PRN 3 Days #12 tablet 07/31/19 The following prescriptions were given: Ciprofloxacin [Cipro] 250 mg PO BID #10 tab Transmission Status: Pending to [facility] Apixaban [Eliquis] 5 mg PO BID #60 tab Transmission Status: Pending to [facility] Oxycodone [Oxyir] 5 mg PO Q6H PRN 3 Days #12 tablet PRN Reason: Pain Score 4-5/10 Transmission Status: Sent to [facility] Primary Care Physician: Wili Nelson DO [Primary Care Provider] - Within 1 Week Test Results: Test results from this visit will be discussed in further detail at your follow-up appointment, if applicable. Proposed Discharge Date: 07/31/19
--- NOTE | 2019-07-31 09:55 | PCM.DC.SUM ---
Discharge Date and Diagnosis Date of Admission: 07/30/19 Date of Discharge: 07/31/19 - Primary Discharge Diagnosis Pulmonary embolism UTI abdominal pain NOS. - Secondary Discharge Diagnosis Chronic Problems (Last Reviewed 07/31/19 @ 01:47 by Ramez Rivera MD) Paroxysmal atrial fibrillation (Chronic) Right bundle branch block (RBBB) (Chronic) History of pulmonary embolism (Chronic) Essential (primary) hypertension (Chronic) History of loop recorder (Chronic 03/2018) Thromboembolism (Chronic) HLD (hyperlipidemia) (Chronic) Bifascicular bundle branch block (Chronic) Hospital Course and Treatment Imaging Results: Clinical Impression(s) from Imaging Studies Chest CTA 07/30/19 15:41 IMPRESSION: Positive for pulmonary embolism in the ascending right pulmonary artery. Electronically Signed: Maxwell Cerda MD at 18:51 EST Tel , Service support , Abdomen/Pelvis CT 07/30/19 15:42 IMPRESSION: No acute abnormality. Electronically Signed: Maxwell Cerda MD at 18:34 EST Tel , Service support , Operations: None Procedures: None Summary of Care Provided: The patient is a 78 year old M presents with left lower quadrant abdominal pain. The abdominal pain and been going on for a few days prior to presentation. He had an abdominal CT that was unremarkable and underwent a CT angiogram of the chest that showed a pulmonary embolism in the a sending right pulmonary artery. Patient has a remote history of pulmonary embolism and had been on apixaban previously but was stopped due to history of GI bleed. Patient not any further bleeding nor melena since then. Patient was resumed on apixaban and will continue that treatment definitely as this was unprovoked clot. Patient was found to have a urinary tract infection and was then started on Macrodantin. Reviewing previous culture results, patient has tested positive for Pseudomonas that was not formally assessed with Macrodantin but has been sensitive to Cipro so patient will complete the 5-day course of antibiotics with ciprofloxacin. For the patient's abdominal pain, CT was negative. On exam, patient has no obvious lesions to suggest zoster. It is tender but suspecting that maybe this is a muscle strain and the patient may have sustained but no intra-abdominal pathology to suggest further imaging and evaluation. Patient will have a short course of oxycodone given that nonsteroidal anti-inflammatories are not available to him being that he is on apixaban. [] - Physical Exam Vitals/I&O's: Vital Signs Temp Pulse Resp BP Pulse Ox 36.6 C 56 L 20 H 121/56 H 93 07/31/19 09:06 07/31/19 09:06 07/31/19 09:06 07/31/19 09:06 07/31/19 09:06 Oxygen Delivery Method Room Air Weight: 159.8 kg Body Mass Index (BMI) 47.7 Finger Stick Blood Glucose 121 Intake and Output for Last 24 Hours 07/29/19 07/30/19 07/31/19 23:59 23:59 23:59 Intake Total 980 / 980 240 / 240 Output Total 300 / 300 300 / 300 Balance 680 / 680 -60 / -60 General: Alert, No apparent distress HEENT: Atraumatic, Normocephalic Oral: Moist Mucosa, No Gingival or Mucosal Lesions/ Ulcerations Neck: No Nodes, Thyroid Normal Size and Texture Lungs: Clear to auscultation, Normal air movement, No rhonchi, No wheeze Cardiovascular: Regular rate, Regular Rhythm, Normal S1, Normal S2, No murmurs Abdomen: Bowel Sounds Present, Soft, Non-Distended, - - tender to palp left lateral abdomen. Psych/Mental Status: Normal Affect, Appropriate Laboratory Results 07/30/19 14:50: WBC Cancelled, Corrected WBC Cancelled, RBC Cancelled, Hgb Cancelled, Hct Cancelled, MCV Cancelled, MCH Cancelled, MCHC Cancelled, RDW Std Deviation Cancelled, RDW Coeff of Hilary Cancelled, Plt Count Cancelled, MPV Cancelled, Immature Gran % (Auto) Cancelled, Neut % (Auto) Cancelled, Lymph % (Auto) Cancelled, [place] % (Auto) Cancelled, Eos % (Auto) Cancelled, Baso % (Auto) Cancelled, Absolute Neuts (auto) Cancelled, Absolute Lymphs (auto) Cancelled, Total Counted Cancelled, Neutrophils % (Manual) Cancelled, Band Neutrophils % Cancelled, Lymphocytes % (Manual) Cancelled, Monocytes % (Manual) Cancelled, Eosinophils % (Manual) Cancelled, Basophils % (Manual) Cancelled, Metamyelocytes % Cancelled, Myelocytes % Cancelled, Promyelocytes % Cancelled, Blast Cells % Cancelled, Plasma Cell % (Manual) Cancelled, Other Cells % Cancelled, Nucleated RBC % Cancelled, Nucleated RBCs/100 WBC Cancelled, Differential Comment Cancelled, Diff Path Review Cancelled, Hypersegmented Neuts Cancelled, Atypical Lymphocytes Cancelled, Reactive Lymphocytes Cancelled, Smudge Cells Cancelled, Toxic Granulation Cancelled, Toxic Vacuolation Cancelled, Dohle Bodies Cancelled, Mandie Rods Cancelled, Platelet Estimate Cancelled, Plt Morphology Comment Cancelled, RBC Morphology Cancelled, Polychromasia Cancelled, Hypochromasia Cancelled, Poikilocytosis Cancelled, Basophilic Stippling Cancelled, Anisocytosis Cancelled, Microcytosis Cancelled, Macrocytosis Cancelled, Spherocytes Cancelled, Sickle Cells Cancelled, Target Cells Cancelled, Tear Drop Cells Cancelled, Ovalocytes Cancelled, Stomatocytes Cancelled, Chamorro-Bern Bodies Cancelled, [place] Cells Cancelled, Bite Cells Cancelled, Crenated Cell Cancelled, Acanthocytes (Spur) Cancelled, Rouleaux Cancelled, Schistocytes Cancelled 07/30/19 14:50: Sodium 138, Potassium 4.4, Chloride 110 H, Carbon Dioxide 25.0, Anion Gap 3 L, BUN 23 H, Creatinine 1.55 H, Estim Creat Clear Calc 43.11, Est GFR (MDRD) Af Amer 56 L, Est GFR (MDRD) Non-Af 46 L, BUN/Creatinine Ratio 14.8, Glucose 133 H, Calcium 9.0, Total Bilirubin 0.70, AST 21, ALT 20, Alkaline Phosphatase 122 H, Troponin I < 0.015, Total Protein 7.3, Albumin 2.9 L, Globulin 4.4 H, Albumin/Globulin Ratio 0.7 L, Lipase 52 L 07/30/19 15:27: Urine Color Yellow, Urine Clarity Cloudy, Urine pH 6.0, Ur Specific [place] 1.010, Urine Protein 100 H, Urine Glucose (UA) Normal, Urine Ketones Negative, Urine Occult Blood 50 H, Urine Nitrite Negative, Urine Bilirubin Negative, Urine Urobilinogen Normal, Ur Leukocyte Esterase 500 H, Urine RBC 0-5 SEEN, Urine WBC >100 SEEN, Ur Squamous Epith Cells 0-5 SEEN, Urine Bacteria RARE, Urine Mucus 0 SEEN 07/30/19 15:27: WBC 10.7, RBC 5.16, Hgb 14.4, Hct 44.8, MCV 86.8, MCH 27.9, MCHC 32.1, RDW Std Deviation 41.4, RDW Coeff of Hilary 13.2, Plt Count 239, MPV 9.6, Immature Gran % (Auto) 0.400, Neut % (Auto) 78.0 H, Lymph % (Auto) 10.3 L, [place] % (Auto) 8.9, Eos % (Auto) 2.0, Baso % (Auto) 0.4, Absolute Neuts (auto) 8.4 H, Absolute Lymphs (auto) 1.11, Nucleated RBC % 0 07/30/19 17:58: POC Glucose 121 H 07/30/19 20:47: B-Natriuretic Peptide 73.6 07/30/19 20:47: Troponin I < 0.015 07/30/19 22:27: POC Glucose 139 H 07/30/19 23:01: Troponin I < 0.015 07/31/19 02:46: WBC 9.0, RBC 4.24 L, Hgb 11.9 L, Hct 37.0 L, MCV 87.3, MCH 28.1, MCHC 32.2, RDW Std Deviation 42.9, RDW Coeff of Hilary 13.6, Plt Count 215, MPV 9.6, Immature Gran % (Auto) 0.400, Neut % (Auto) 75.9 H, Lymph % (Auto) 10.6 L, [place] % (Auto) 11.6 H, Eos % (Auto) 1.1, Baso % (Auto) 0.4, Absolute Neuts (auto) 6.8, Absolute Lymphs (auto) 0.95, Nucleated RBC % 0 07/31/19 02:46: Sodium 136, Potassium 4.6, Chloride 104, Carbon Dioxide 26.0, Anion Gap 6, BUN 27 H, Creatinine 2.03 H, Estim Creat Clear Calc 32.92, Est GFR (MDRD) Af Amer 41 L, Est GFR (MDRD) Non-Af 34 L, BUN/Creatinine Ratio 13.3, Glucose 183 H, Calcium 8.3 L 07/31/19 02:46: Troponin I < 0.015 Current Medications Acetaminophen (Tylenol) 650 mg PO Q6H PRN PRN PRN Reason: Pain Score 1-10/Temp > 100.7 F Amlodipine Besylate (Norvasc) 10 mg PO DAILY [facility] Last Admin: 07/31/19 09:13 Dose: 10 mg Documented by: Apixaban (Eliquis) 10 mg PO BID [facility] Last Admin: 07/31/19 09:13 Dose: 10 mg Documented by: Atorvastatin Calcium (Lipitor) 40 mg PO QHS [facility] Last Admin: 07/30/19 22:30 Dose: 40 mg Documented by: Citalopram Hydrobromide (Celexa) 40 mg PO DAILY [facility] Last Admin: 07/31/19 09:14 Dose: 40 mg Documented by: Dextrose (D50w Syringe) 0 gm IV X1 PRN; Protocol PRN Reason: Hypoglycemia [facility] Last Admin: 07/31/19 09:15 Dose: 325 mg Documented by: Gabapentin (Neurontin) 300 mg PO BID [facility] Last Admin: 07/31/19 09:14 Dose: 300 mg Documented by: Glucagon () 1 mg IM .X1 PRN PRN Reason: Hypoglycemia Insulin Human Lispro (Humalog Kwikpen (Bkc)) 0 unit SC ACHS [facility]; Protocol Last Admin: 07/30/19 22:28 Dose: Not Given Documented by: Insulin Human Lispro (Humalog Kwikpen (Bkc)) [facility] [place] [facility] Isosorbide Mononitrate (Imdur) 30 mg PO DAILY [facility] Last Admin: 07/31/19 09:15 Dose: 30 mg Documented by: Metoprolol Succinate (Toprol Xl (Beta Luna)) 25 mg PO DAILY [facility] Last Admin: 07/31/19 09:16 Dose: Not Given Documented by: Nitrofurantoin Macrocrystals (Macrobid) 100 mg PO BID [facility] Last Admin: 07/31/19 09:15 Dose: 100 mg Documented by: Ondansetron HCl (Zofran) 4 mg IV Q8H PRN PRN PRN Reason: NAUSEA/VOMITING Oxycodone HCl (Oxyir) 5 mg PO Q4H PRN PRN PRN Reason: Pain Score 4-5/10 Last Admin: 07/30/19 22:30 Dose: 5 mg Documented by: Oxycodone HCl (Oxyir) 10 mg PO Q4H PRN PRN PRN Reason: Pain Score 6-10/10 Last Admin: 07/31/19 09:21 Dose: 10 mg Documented by: Pantoprazole Sodium (Protonix) 40 mg PO DAILY [facility] Last Admin: 07/31/19 09:15 Dose: 40 mg Documented by: Senna/Docusate Sodium (Senokot-S, Tricia-Colace) 1 tablet PO BID PRN PRN Reason: Diarrhea Sodium Chloride () 10 - 40 ml IV UD PRN PRN Reason: SALINE FLUSH Tamsulosin HCl (Flomax) 0.8 mg PO DAILY [facility] Last Admin: 07/31/19 09:14 Dose: 0.8 mg Documented by: Discharge Activity: Return to Normal Activity Call your doctor if you observe: Fever of 101 or Higher, - - worsening abdominal pain. increased pain with urination. Home Medications: Medications to take at Discharge Atorvastatin Calcium [Lipitor] 40 mg PO QHS 05/29/15 Citalopram [Celexa] 40 mg PO DAILY 05/29/15 Tamsulosin HCl [Flomax] 0.8 mg PO DAILY 07/08/16 Gabapentin [Neurontin] 300 mg PO BID 03/11/18 Isosorbide Mononitrate [Imdur] 30 mg PO DAILY 03/12/18 Insulin Lispro [Humalog KwikPen] 20 unit SQ TIDCM 09/16/18 metoprolol succinate 25 mg tablet,extended release 24 hr 25 mg PO DAILY tab 09/23/18 Albuterol Sulfate [Proair Respiclick] 2 puff INHALATION Q4H PRN PRN 10/29/18 Ferrous Sulfate 325 mg PO BID 10/29/18 omeprazole 20 mg tablet,delayed release 40 mg PO DAILY tab 04/12/19 Amlodipine [Norvasc] 10 mg PO DAILY #30 tab 07/11/19 Acetaminophen [Tylenol Tablet] 650 mg PO Q6H PRN PRN tab 07/31/19 Apixaban [Eliquis] 5 mg PO BID #60 tab 07/31/19 Ciprofloxacin [Cipro] 250 mg PO BID #10 tab 07/31/19 Oxycodone [Oxyir] 5 mg PO Q6H PRN 3 Days #12 tablet 07/31/19 Following Prescrptions Were Given to Patient: Ciprofloxacin [Cipro] 250 mg PO BID #10 tab Transmission Status: Pending to [facility] Apixaban [Eliquis] 5 mg PO BID #60 tab Transmission Status: Pending to [facility] #[facility] Oxycodone [Oxyir] 5 mg PO Q6H PRN 3 Days #12 tablet PRN Reason: Pain Score 4-5/10 Transmission Status: Sent to [facility]30 Primary Care Physician: Wili Nelson DO [Primary Care Provider] - Within 1 Week Patient Instructions: Urinary Tract Infections in Men, Understanding Urinary Tract Infections (UTIs), Pulmonary Embolism Medical Necessity - Tobacco Use Smoking Status: Former smoker Tobacco Use: Cigarettes Meaningful Use Info Meaningful Use Diagnoses (Choose all that apply): None applicable Code Visit OBSV E&M: 20714 Observation care discharge
[2019-07-31] MEDS: Insulin Lispro 100 UNIT/ML INSULN.PEN 10 UNIT SC ×2 (10:03→14:00)
--- NOTE | 2019-07-31 10:06 | NURSING ---
Cost for eliquis is &10.00.
[2019-07-31 10:46] LABS: Bedside Glucose 172 mg/dL (70-110)
[2019-07-31 12:41] LABS: Bedside Glucose 164 mg/dL (70-110)
== END 2019-07-31 13:28 | disposition home or self-care (01) ==
LOC: ED 13:55 → PCU 20:15
PROVIDERS: Admitting Provider Hospitalist; Emergency Provider Emergency Medicine; PCP Family Medicine
DX: I26.99 Other pulmonary embolism without acute cor pulmonale (principal); N30.00 Acute cystitis without hematuria; I48.0 Paroxysmal atrial fibrillation; E78.5 Hyperlipidemia, unspecified; K59.00 Constipation, unspecified; G47.33 Obstructive sleep apnea (adult) (pediatric); I12.9 Hypertensive chronic kidney disease with stage 1 through stage 4 chronic kidney disease, or unspecified chronic kidney disease; N18.3 Chronic kidney disease, stage 3 (moderate); J44.9 Chronic obstructive pulmonary disease, unspecified; N40.0 Benign prostatic hyperplasia without lower urinary tract symptoms; F32.9 Major depressive disorder, single episode, unspecified; E11.22 Type 2 diabetes mellitus with diabetic chronic kidney disease; E11.65 Type 2 diabetes mellitus with hyperglycemia; Z79.899 Other long term (current) drug therapy; Z79.4 Long term (current) use of insulin; Z86.711 Personal history of pulmonary embolism; Z87.891 Personal history of nicotine dependence; I44.0 Atrioventricular block, first degree; R06.09 Other forms of dyspnea
CPT/HCPCS: 36415; 71275; 74177; 80048; 80053; 81001; 82962; 83690; 83880; 84484; 85025; 87077; 87086; 87088; 87184; 87186; 93005; 94002; 96374; 96375; 99218; 99285; J7040; Q9967; A4216; G0378; J2405

== ENCOUNTER → 2019-08-04 | Outpatient (CLI) | payer MEDICARE, OTHER, SELFPAY ==
[2019-07-30 20:10] VITALS: BMI 47.7
[2019-08-04 15:42] LABS: Absolute Neutrophil Count 6.3 X10^3/uL (2.0-7.7); Basophil# 0.04 X10^3/uL; Basophil% 0.5 % (0-1); Eosinophils% 2.4 % (0-5); Hematocrit 39.7 % (40-54); Hemoglobin 12.3 g/dL (13.0-16.5); Mean Corpuscular Hgb 27.5 pg (27.0-32.0); Mean Corpuscular Volume 88.8 fL (80-94); Mean Platelet Vol. 9.8 fl (6.2-12.0); Monocyte# 0.81 X10^3/uL; Monocyte% 9.7 % (0-10); NRBC Flagged by Analyzer 0 % (0-5); Neutrophil # 6.25 X10^3/uL (2.7-7.7); Neutrophil % 74.9 % (47-70); Platelet Count 303 K/mm3 (150-450); RBC Distribution Width CV 13.3 % (11.6-14.6); RBC Distribution Width SD 43.1 fl (35.1-43.9); Red Blood Count 4.47 M/mm3 (4.6-6.2); White Blood Count 8.3 K/mm3 (4.4-11.0)
[2019-08-04 15:57] LABS: ALB/GLOB Ratio 0.6 RATIO (0.9-2.4); AST(SGOT) 14 U/L (15-37); Alanine Aminotransfer ALT/SGPT 19 U/L (16-61); Albumin, Serum 2.6 g/dL (3.2-5.0); Alkaline Phosphatase 122 U/L (45-117); Anion Gap 4 (5-15); BUN 30 mg/dL (7-18); BUN/Creat Ratio 14.4 RATIO (10-20); Calcium,Total 8.9 mg/dL (8.5-10.1); Chloride 108 mmol/L (98-107); Creatinine, Serum 2.08 mg/dL (0.70-1.30); EST Glomerular Filtration Rate 33 mL/min (>60); Est Glom Filt Rate - Afr Amer 40 mL/min (>60); Globulin 4.7 g/dL (2.2-4.2); Glucose 139 mg/dL (74-106); Potassium 4.2 mmol/L (3.5-5.1); Protein, Total 7.3 g/dL (6.4-8.2); Sodium Level 139 mmol/L (136-145)
== END | disposition home or self-care (01) ==
LOC: BFHLAB 13:21
PROVIDERS: PCP Family Medicine; Visit Provider Family Medicine
DX: N18.3 Chronic kidney disease, stage 3 (moderate) (principal); D63.1 Anemia in chronic kidney disease; R10.9 Unspecified abdominal pain
CPT/HCPCS: 36415; 80053; 85025

== ENCOUNTER → 2020-04-02 15:01 | Inpatient (IN) | payer MEDICARE, OTHER, SELFPAY ==
[2019-07-30 20:10] VITALS: BMI 47.7
[2020-04-02 15:02] VITALS: BP 152/68; PULSE 44; RESP 16; TEMP 36.7; O2SAT 97; BMI 47.9
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
--- NOTE | 2020-04-02 15:14 | EKG12_ITS ---
Test Reason : CONFUSION Blood Pressure : / mmHG Vent. Rate : 045 BPM Atrial Rate : 045 BPM P-R Int : 282 ms QRS Dur : 156 ms QT Int : 484 ms P-R-T Axes : 060 -70 026 degrees QTc Int : 418 ms Sinus bradycardia with sinus arrhythmia with 1st degree A-V block Left axis deviation Right bundle branch block Inferior infarct , age undetermined Abnormal ECG Confirmed by MICHAEL RAZO, MARCIN ([id number]), newspaper editor managing PAUL BLUM ([id number]) on 04/09/2020 8:39:39 A M Referred By: GUEVARA/LOIS Confirmed By:BRII RODRIGUEZ MD
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
[2020-04-02 15:37] LABS: Absolute Lymphocyte Count 1.23 X10^3/uL (0.83-4.51); Absolute Neutrophil Count 5.5 X10^3/uL (2.0-7.7); Basophil# 0.05 X10^3/uL; Basophil% 0.7 % (0-1); Eosinophil# 0.16 X10^3/uL; Eosinophils% 2.1 % (0-5); Hematocrit 41.1 % (40-54); Hemoglobin 12.9 g/dL (13.0-16.5); Lymphocyte # 1.23 X10^3/ul (4.0); Lymphocyte % 16.1 % (19-41); Mean Corp Hgb Conc 31.4 g/dL (32-36); Mean Corpuscular Hgb 27.8 pg (27.0-32.0); Mean Corpuscular Volume 88.6 fL (80-94); Mean Platelet Vol. 9.9 fl (6.2-12.0); Monocyte# 0.66 X10^3/uL; Monocyte% 8.6 % (0-10); NRBC Flagged by Analyzer 0 % (0-5); Neutrophil # 5.54 X10^3/uL (2.7-7.7); Neutrophil % 72.2 % (47-70); Platelet Count 215 K/mm3 (150-450); RBC Distribution Width SD 42.3 fl (35.1-43.9); Red Blood Count 4.64 M/mm3 (4.6-6.2); White Blood Count 7.7 K/mm3 (4.4-11.0)
[2020-04-02 15:59] LABS: Anion Gap 4 (5-15); BUN 24 mg/dL (7-18); BUN/Creat Ratio 11.4 RATIO (10-20); Calcium,Total 8.7 mg/dL (8.5-10.1); Chloride 109 mmol/L (98-107); EST Glomerular Filtration Rate 33 mL/min (>60); Est Glom Filt Rate - Afr Amer 39 mL/min (>60); Estimated Creatinine Clearance 31.31 ml/min; Glucose 209 mg/dL (74-106); Potassium 4.6 mmol/L (3.5-5.1); Sodium Level 140 mmol/L (136-145)
[2020-04-02 16:03] LABS: Mucous, Urine 0 SEEN /hpf (<or=2+); Red Blood Cells-Urine 0 SEEN /hpf (0-5); Squamous Epithelial Cells - UA 0 SEEN /hpf (0-5)
[2020-04-02 16:11] LABS: Bedside Glucose 211 mg/dL (70-110)
[2020-04-02 16:23] LABS: Color, Urine Yellow (Yellow); Glucose, Dipstick 50 mg/dl (Normal); Ketone-Dipstick Negative (Negative); Leukocyte Esterase-Dipstick 500 /ul (Negative); Nitrite-Dipstick Negative (Negative); Occult Blood-Urine 150 /ul (Negative); Protein-Dipstick 500 mg/dl (Negative); Urine Bilirubin Dipstick Negative (Negative); Urine Clarity Cloudy (Clear); Urine Urobilinogen Normal (Normal)
[2020-04-02 16:42] LABS: Bacteria 3+ /hpf (None Seen); White Blood Cells >100 SEEN /hpf (0-5)
[2020-04-02 17:01] VITALS: BP 137/67; PULSE 55; RESP 18; O2SAT 94
[2020-04-02] MEDS: Ceftriaxone 1 GM/50 ML BAG IV (17:14)
[2020-04-02 17:16] VITALS: BP 139/74; PULSE 43; RESP 14; TEMP 36.4; O2SAT 94
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
[2020-04-02 19:01] VITALS: BMI 47.7
[2020-04-02 19:03] VITALS: BP 142/63; PULSE 43; RESP 18; TEMP 37; O2SAT 96
[2020-04-02 19:05] VITALS: BMI 47.7
[2020-04-02 19:25] VITALS: PULSE 43
[2020-04-02] MEDS: 0.9% Normal Saline 1,000 ML 75 ML IV (19:45)
[2020-04-02 22:00] VITALS: BP 134/77; PULSE 51; RESP 18; TEMP 36.8; O2SAT 96
[2020-04-02] MEDS: Atorvastatin Calcium 40 MG Tablet PO (22:15)
[2020-04-02] MEDS: Heparin Injection (Vial) 5,000 UNIT/ML VIAL 5000 UNIT SC (22:16)
[2020-04-02 22:41] LABS: Bedside Glucose 177 mg/dL (70-110)
[2020-04-03] VITALS (16 sets, daily range): BP systolic 147–171; BP diastolic 58–89; PULSE 42–82; RESP 12–20; TEMP 36.4–36.9; O2SAT 94–98
[2020-04-03 04:48] LABS: M R Staph aureus DNA By PCR Negative (Negative); Probe Check PASS; Specimen Processing Control PASS
[2020-04-03] MEDS: Heparin Injection (Vial) 5,000 UNIT/ML VIAL 5000 UNIT SC ×3 (05:42→21:45)
[2020-04-03 06:56] LABS: Absolute Lymphocyte Count 1.56 X10^3/uL (0.83-4.51); Absolute Neutrophil Count 4.4 X10^3/uL (2.0-7.7); Basophil# 0.05 X10^3/uL; Basophil% 0.7 % (0-1); Eosinophil# 0.24 X10^3/uL; Eosinophils% 3.5 % (0-5); Hematocrit 42.5 % (40-54); Hemoglobin 13.3 g/dL (13.0-16.5); Lymphocyte # 1.56 X10^3/ul (4.0); Lymphocyte % 22.4 % (19-41); Mean Corp Hgb Conc 31.3 g/dL (32-36); Mean Corpuscular Hgb 28.4 pg (27.0-32.0); Mean Corpuscular Volume 90.6 fL (80-94); Mean Platelet Vol. 9.8 fl (6.2-12.0); Monocyte# 0.73 X10^3/uL; Monocyte% 10.5 % (0-10); NRBC Flagged by Analyzer 0 % (0-5); Neutrophil # 4.35 X10^3/uL (2.7-7.7); Neutrophil % 62.6 % (47-70); Platelet Count 222 K/mm3 (150-450); RBC Distribution Width SD 42.2 fl (35.1-43.9); Red Blood Count 4.69 M/mm3 (4.6-6.2)
[2020-04-03 07:29] LABS: Anion Gap 5 (5-15); BUN 24 mg/dL (7-18); BUN/Creat Ratio 13.1 RATIO (10-20); Calcium,Total 8.6 mg/dL (8.5-10.1); Chloride 109 mmol/L (98-107); Creatinine, Serum 1.83 mg/dL (0.70-1.30); EST Glomerular Filtration Rate 38 mL/min (>60); Est Glom Filt Rate - Afr Amer 46 mL/min (>60); Estimated Creatinine Clearance 35.93 ml/min; Glucose 102 mg/dL (74-106); Potassium 3.8 mmol/L (3.5-5.1); Sodium Level 141 mmol/L (136-145)
[2020-04-03 07:43] LABS: Bedside Glucose 97 mg/dL (70-110)
[2020-04-03] MEDS: Citalopram 40 MG TABLET PO (09:42)
[2020-04-03] MEDS: Tamsulosin HCl 0.4 MG Capsule 0.8 MG PO (09:42)
[2020-04-03 09:50] LABS: Bedside Glucose 98 mg/dL (70-110)
[2020-04-03 11:16] LABS: Bedside Glucose 93 mg/dL (70-110)
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
--- NOTE | 2020-04-03 15:16 | PN_ITS ---
Subjective: Pt states he is feeling better but still feels a little bit fuzzy. Unclear on his home insulin doses when I asked him (Lantus). Denies pain. Vitals/I&O's: Vital Signs Temp Pulse Resp BP Pulse Ox 98.0 F 50 L 20 H 163/65 H 95 04/03/20 13:45 04/03/20 14:00 04/03/20 13:45 04/03/20 13:45 04/03/20 13:45 Oxygen Delivery Method Room Air Weight: 159.665 kg Body Mass Index (BMI) 47.7 Finger Stick Blood Glucose 211 Intake and Output for Last 24 Hours 04/01/20 04/02/20 04/03/20 23:59 23:59 23:59 Intake Total 350 / 350 2150.00 / 2150.00 Output Total 400 / 400 5 / 192 Balance -50 / -50 225.00 / 225.00 General: Alert, Oriented x3, Cooperative, No apparent distress, Well developed, Well nourished, - - MO WM, sitting up in a chair watching TV HEENT: Atraumatic, PERRLA, EOMI, Normocephalic Oral: Moist Mucosa, No Gingival or Mucosal Lesions/ Ulcerations, - - fair dentition, short thick neck, mallampati 4 Neck: Supple, No JVD, No Nodes, Trachea Midline, Thyroid Normal Size and Texture Lungs: Clear to auscultation, No rhonchi, No wheeze, No rales, Diminished - suspect 2/2 to body habitus Cardiovascular: Regular Rhythm, Normal S1, Normal S2, No murmurs, No Ectopic Activity, Bradycardic, No rub noted, No Gallop, - - distant Abdomen: Bowel Sounds Present, Soft, Non Tender, Non-Distended, No Hepato- splenomegaly, Obese Extremities: No clubbing, No cyanosis, Edema - 1+ LE, Peripheral Pulses Normal Skin: No rashes, No breakdown, - - B LE skin changes c/w chronic venous stasis Musculoskeletal: No Tenderness to Palpation of Joints or Extremities, No Muscle Wasting, Arthritic Changes Lymphatic: No Cervical, Supraclavicular, or Inguinal Adenopathy Neurological: Cranial nerves II-XII grossly intact, Neuro grossly intact, Muscle tone normal, Coordination normal Psych/Mental Status: Appropriate, Flat Affect Microbiology Past 72 Hours 04/02/20 15:55 Urine, Clean Catch Urine Culture - Preliminary Gram negative cata Laboratory Results 04/02/20 15:05: WBC 7.7, RBC 4.64, Hgb 12.9 L, Hct 41.1, MCV 88.6, MCH 27.8, MCHC 31.4 L, RDW Std Deviation 42.3, RDW Coeff of Hilary 13.0, Plt Count 215, MPV 9.9, Immature Gran % (Auto) 0.300, Neut % (Auto) 72.2 H, Lymph % (Auto) 16.1 L, [place] % (Auto) 8.6, Eos % (Auto) 2.1, Baso % (Auto) 0.7, Absolute Neuts (auto) 5.5, Absolute Lymphs (auto) 1.23, Nucleated RBC % 0 04/02/20 15:05: Sodium 140, Potassium 4.6, Chloride 109 H, Carbon Dioxide 27.0, Anion Gap 4 L, BUN 24 H, Creatinine 2.10 H, Estim Creat Clear Calc 31.31, Est GFR (MDRD) Af Amer 39 L, Est GFR (MDRD) Non-Af 33 L, BUN/Creatinine Ratio 11.4, Glucose 209 H, Calcium 8.7 04/02/20 15:55: Urine Color Yellow, Urine Clarity Cloudy, Urine pH 5.0, Ur Specific [place] 1.020, Urine Protein 500 H, Urine Glucose (UA) 50 H, Urine Ketones Negative, Urine Occult Blood 150 H, Urine Nitrite Negative, Urine Bilirubin Negative, Urine Urobilinogen Normal, Ur Leukocyte Esterase 500 H, Urine RBC 0 SEEN, Urine WBC >100 SEEN, Ur Squamous Epith Cells 0 SEEN, Urine Bacteria 3+, Urine Mucus 0 SEEN 04/02/20 16:02: POC Glucose 211 H 04/02/20 20:44: MRSA (PCR) Negative 04/02/20 22:02: POC Glucose 177 H 04/03/20 05:15: WBC 7.0, RBC 4.69, Hgb 13.3, Hct 42.5, MCV 90.6, MCH 28.4, MCHC 31.3 L, RDW Std Deviation 42.2, RDW Coeff of [place] 13.0, Plt Count 222, MPV 9.8, Immature Gran % (Auto) 0.300, Neut % (Auto) 62.6, Lymph % (Auto) 22.4, [place] % (Auto) 10.5 H, Eos % (Auto) 3.5, Baso % (Auto) 0.7, Absolute Neuts (auto) 4.4, Absolute Lymphs (auto) 1.56, Nucleated RBC % 0 04/03/20 05:15: Sodium 141, Potassium 3.8, Chloride 109 H, Carbon Dioxide 27.0, Anion Gap 5, BUN 24 H, Creatinine 1.83 H, Estim Creat Clear Calc 35.93, Est GFR (MDRD) Af Amer 46 L, Est GFR (MDRD) Non-Af 38 L, BUN/Creatinine Ratio 13.1, Glucose 102, Calcium 8.6 04/03/20 07:34: POC Glucose 97 04/03/20 09:41: POC Glucose 98 04/03/20 11:09: POC Glucose 93 Current Medications Acetaminophen (Tylenol) 650 mg PO Q6H PRN PRN PRN Reason: Pain Score 1-10/Temp > 100.7 F Atorvastatin Calcium (Lipitor) 40 mg PO QHS [facility] Last Admin: 04/02/20 22:15 Dose: 40 mg Documented by: Citalopram Hydrobromide (Celexa) 40 mg PO DAILY [facility] Last Admin: 04/03/20 09:42 Dose: 40 mg Documented by: Gabapentin (Gabapentin 300 Mg Capsule) 300 - 600 mg PO TID PRN PRN PRN Reason: nerve pain Heparin Sodium (Porcine) (Heparin Na) 5,000 unit SC Q8 [facility] Last Admin: 04/03/20 13:52 Dose: 5,000 unit Documented by: Piperacillin Sod/Tazobactam (Sod 3.375 gm/ Sodium Chloride) 50 mls @ 12.5 mls/hr IV Q8 [facility] Last Admin: 04/03/20 13:52 Dose: 12.5 mls/hr Documented by: Sodium Chloride () 250 mls @ 15 mls/hr IV .[id number] PRN PRN Reason: Saline Flush Sodium Chloride () 250 mls @ 15 mls/hr IV .[id number] PRN PRN Reason: Additional IVPB Infusion Insulin Glargine (Lantus (Bkc)) 50 units SC BID [facility] Last Admin: 04/03/20 11:45 Dose: Not Given Documented by: Insulin Human Lispro (Humalog Kwikpen (Bkc)) 0 unit SC ACHS [facility]; Protocol Last Admin: 04/03/20 11:44 Dose: Not Given Documented by: Insulin Human Lispro (Humalog Kwikpen (Bkc)) 20 unit SC TIDCM [facility] Last Admin: 04/03/20 12:38 Dose: Not Given Documented by: Isosorbide Mononitrate (Imdur) 30 mg PO DAILY [facility] Losartan Potassium (Cozaar) 100 mg PO DAILY [facility] Metoprolol Succinate (Toprol Xl (Beta Luna)) 12.5 mg PO DAILY [facility] Ondansetron HCl (Zofran) 4 mg IV Q8H PRN PRN PRN Reason: NAUSEA/VOMITING Senna/Docusate Sodium (Senokot-S, Tricia-Colace) 2 tablet PO BID PRN PRN PRN Reason: Constipation Sodium Chloride () 10 - 40 ml IV UD PRN PRN Reason: SALINE FLUSH Tamsulosin HCl (Flomax) 0.8 mg PO DAILY [facility] Last Admin: 04/03/20 09:42 Dose: 0.8 mg Documented by: Zolpidem Tartrate (Ambien (Generic)) 5 mg PO QHS PRN PRN PRN Reason: INSOMNIA STROKE Vital Signs/Narrative: Vital Signs Temp Pulse Resp BP Pulse Ox 04/03/20 14:00 50 L 04/03/20 13:45 98.0 F 46 L 20 H 163/65 H 95 Medical Necessity - Tobacco Use Smoking Status: Former smoker Assessment/Plan UTI 2/2 GNR -identification pending -continue Zosyn for now Metabolic Encephalopathy -CT in ED neg -now back to baseline -suspect related to infection 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 -baseline sCr is about 1.5-1.8 -today 1.83 and appears back to baseline -monitor Chronic Bradycardia -HR is in the 50's at baseline -on BB but low dose -will hold today and monitor (dose was decreased) -repeat TSH was done 06/2019 PAF -now in NSR -no OAC 2/2 h/o GIB -hold BB DM-2 -Pt on Lantus 50 BID and had dose last pm -am Blood sugar was 109 and BGT have remained low -reduce Lantus today to 25 u tonight and watch trend -decrease log with meals to 5 u -SSI HTN -d/c Metoprolol with bradycardia -continue Losartan -increase Isordil to 60 mg daily -prn hydralazine -monitor NILO -BIPAP at home -restart at 04/02 here--> pt unsure of home settings HPL -continue statin BPH -cont home meds H/O DVT/PE -no OAC 2/2 h/o GIB MO -BMI 48 -recommend wgt loss DVT Prophylaxis -Heparin sub q Code status -Full Inpatient E&M: 62570 Subs Hosp L3
[2020-04-03 16:00] LABS: Bedside Glucose 167 mg/dL (70-110)
[2020-04-03] MEDS: Losartan Potassium 100 MG Tablet PO (16:14)
[2020-04-03] MEDS: Insulin Lispro 100 UNIT/ML INSULN.PEN SC ×3 (17:19→21:46)
[2020-04-03] MEDS: hydrALAZINE 20 MG/ML Vial 10 MG IV (17:20)
[2020-04-03] MEDS: 0.9% Saline Lock 10 ML Syringe IV ×2 (17:28→21:46)
[2020-04-03] MEDS: Isosorbide Mononitrate 60 MG Tablet PO (18:32)
[2020-04-03] MEDS: Atorvastatin Calcium 40 MG Tablet PO (21:45)
[2020-04-03 21:55] LABS: Bedside Glucose 249 mg/dL (70-110)
[2020-04-04] VITALS (19 sets, daily range): BP systolic 126–178; BP diastolic 65–85; PULSE 52–84; RESP 12–20; TEMP 36.3–36.8; O2SAT 94–99
[2020-04-04] MEDS: Heparin Injection (Vial) 5,000 UNIT/ML VIAL 5000 UNIT SC ×3 (05:20→22:40)
[2020-04-04 06:40] LABS: Anion Gap 7 (5-15); BUN 24 mg/dL (7-18); BUN/Creat Ratio 12.9 RATIO (10-20); Calcium,Total 8.6 mg/dL (8.5-10.1); Chloride 108 mmol/L (98-107); Creatinine, Serum 1.86 mg/dL (0.70-1.30); EST Glomerular Filtration Rate 37 mL/min (>60); Est Glom Filt Rate - Afr Amer 45 mL/min (>60); Estimated Creatinine Clearance 35.35 ml/min; Glucose 137 mg/dL (74-106); Potassium 3.8 mmol/L (3.5-5.1); Sodium Level 140 mmol/L (136-145); Thyroid Stim Hormone (TSH) 1.48 uIU/mL (0.358-3.74)
[2020-04-04] MEDS: Tamsulosin HCl 0.4 MG Capsule 0.8 MG PO (09:08)
[2020-04-04] MEDS: Citalopram 40 MG TABLET PO (09:08)
[2020-04-04] MEDS: Insulin Lispro 100 UNIT/ML INSULN.PEN SC ×3 (09:09→11:50)
[2020-04-04] MEDS: Isosorbide Mononitrate 60 MG Tablet PO (09:09)
[2020-04-04 09:15] LABS: Bedside Glucose 130 mg/dL (70-110)
[2020-04-04] MEDS: Losartan Potassium 100 MG Tablet PO (10:44)
[2020-04-04 11:55] LABS: Bedside Glucose 242 mg/dL (70-110)
[2020-04-04] MEDS: Acetaminophen 325 MG Tablet 650 MG PO (14:31)
--- NOTE | 2020-04-04 15:05 | PN_ITS ---
Subjective: Pt states that he is a little SOB now. Was just up with therapy. Pt admits that he is not that active at home. SpO2 assessed and pt was 95% on RA and not visibly having any SOB or in distress. Otherwise pt states that he feels okay. Pt states that he is hungry and wants to eat. Vitals/I&O's: Vital Signs Temp Pulse Resp BP Pulse Ox 97.4 F L 75 18 127/78 H 95 04/04/20 14:25 04/04/20 14:25 04/04/20 14:25 04/04/20 14:25 04/04/20 14:25 Oxygen Delivery Method Room Air Weight: 159.7 kg Body Mass Index (BMI) 47.7 Finger Stick Blood Glucose 211 Intake and Output for Last 24 Hours 04/02/20 04/03/20 04/04/20 23:59 23:59 23:59 Intake Total 350 / 350 2740.00 / 2740.00 100 / 100 Output Total 400 / 400 3100 / 3100 825 / 825 Balance -50 / -50 -360.00 / -360.00 -725 / -725 General: Alert, Oriented x3, Cooperative, No apparent distress, Well developed, Well nourished, - - Obese older WM sitting up in the chair, Oral: Moist Mucosa Lungs: Clear to auscultation, Normal air movement, No rhonchi, No wheeze, No rales, Diminished - diffusely 2/2 body habitus Cardiovascular: Regular rate, Regular Rhythm, Normal S1, Normal S2, No murmurs, No Ectopic Activity, No rub noted, No Gallop Abdomen: Bowel Sounds Present, Soft, Non Tender, Non-Distended, No Hepato- splenomegaly, Obese, No hernias noted Extremities: No clubbing, No cyanosis, Capillary Refill Less than 3 Seconds, Edema - trace B LE, Peripheral Pulses Normal Skin: No rashes, No breakdown, - - B LE skin changes c/w venous stasis Musculoskeletal: No Tenderness to Palpation of Joints or Extremities, No Muscle Wasting, Arthritic Changes Neurological: Cranial nerves II-XII grossly intact, Neuro grossly intact, - - speech is somewhat difficult to understand but this is baseline Psych/Mental Status: Appropriate, Flat Affect Microbiology Past 72 Hours 04/02/20 15:55 Urine, Clean Catch Urine Culture - Preliminary Pseudomonas aeroginosa Staphylococcus aureus Laboratory Results 04/03/20 15:57: POC Glucose 167 H 04/03/20 21:42: POC Glucose 249 H 04/04/20 05:22: Sodium 140, Potassium 3.8, Chloride 108 H, Carbon Dioxide 25.0, Anion Gap 7, BUN 24 H, Creatinine 1.86 H, Estim Creat Clear Calc 35.35, Est GFR (MDRD) Af Amer 45 L, Est GFR (MDRD) Non-Af 37 L, BUN/Creatinine Ratio 12.9, Glucose 137 H, Calcium 8.6, TSH 1.48 04/04/20 09:04: POC Glucose 130 H 04/04/20 11:48: POC Glucose 242 H Current Medications Acetaminophen (Tylenol) 650 mg PO Q6H PRN PRN PRN Reason: Pain Score 1-10/Temp > 100.7 F Last Admin: 04/04/20 14:31 Dose: 650 mg Documented by: Atorvastatin Calcium (Lipitor) 40 mg PO QHS [facility] Last Admin: 04/03/20 21:45 Dose: 40 mg Documented by: Citalopram Hydrobromide (Celexa) 40 mg PO DAILY [facility] Last Admin: 04/04/20 09:08 Dose: 40 mg Documented by: Gabapentin (Gabapentin 300 Mg Capsule) 300 - 600 mg PO TID PRN PRN PRN Reason: nerve pain Heparin Sodium (Porcine) (Heparin Na) 5,000 unit SC Q8 [facility] Last Admin: 04/04/20 14:33 Dose: 5,000 unit Documented by: Hydralazine HCl (Hydralazine 20 Mg/Ml Vial) 10 mg IV Q6H PRN PRN PRN Reason: SBP >160 Last Admin: 04/03/20 17:20 Dose: 10 mg Documented by: Piperacillin Sod/Tazobactam (Sod 3.375 gm/ Sodium Chloride) 50 mls @ 12.5 mls/hr IV Q8 [facility] Last Admin: 04/04/20 14:27 Dose: 12.5 mls/hr Documented by: Sodium Chloride () 250 mls @ 15 mls/hr IV .[id number] PRN PRN Reason: Saline Flush Sodium Chloride () 250 mls @ 15 mls/hr IV .[id number] PRN PRN Reason: Additional IVPB Infusion Insulin Glargine (Insulin Glargine 100 Units/Ml Pen) 25 units SC QHS [facility] Last Admin: 04/03/20 21:47 Dose: 25 units Documented by: Insulin Human Lispro (Humalog Kwikpen (Bkc)) 0 unit SC ACHS [facility]; Protocol Last Admin: 04/04/20 11:50 Dose: 3 units Documented by: Insulin Human Lispro (Insulin Lispro 100 Unit/Ml Insuln.Pen) 5 unit SC TIDCM [facility] Last Admin: 04/04/20 11:50 Dose: 5 units Documented by: Isosorbide Mononitrate (Isosorbide Mononitrate 60 Mg Tablet) 60 mg PO DAILY [facility] Last Admin: 04/04/20 09:09 Dose: 60 mg Documented by: Losartan Potassium (Cozaar) 100 mg PO DAILY [facility] Last Admin: 04/04/20 10:44 Dose: 100 mg Documented by: Ondansetron HCl (Zofran) 4 mg IV Q8H PRN PRN PRN Reason: NAUSEA/VOMITING Senna/Docusate Sodium (Senokot-S, Tricia-Colace) 2 tablet PO BID PRN PRN PRN Reason: Constipation Sodium Chloride () 10 - 40 ml IV UD PRN PRN Reason: SALINE FLUSH Last Admin: 04/03/20 21:46 Dose: 10 ml Documented by: Tamsulosin HCl (Flomax) 0.8 mg PO DAILY [facility] Last Admin: 04/04/20 09:08 Dose: 0.8 mg Documented by: Zolpidem Tartrate (Ambien (Generic)) 5 mg PO QHS PRN PRN PRN Reason: INSOMNIA STROKE Vital Signs/Narrative: Vital Signs Temp Pulse Resp BP Pulse Ox 04/04/20 14:25 97.4 F L 75 18 127/78 H 95 Medical Necessity - Tobacco Use Smoking Status: Former smoker Assessment/Plan PsAg UTI -continue Zosyn for now -await sensitivities -if able to transition to orals will do at d/c -S.Aureus also grew but at low colony counts Metabolic Encephalopathy -CT in ED neg -now back to baseline -suspect related to infection 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 -baseline sCr is about 1.5-1.8 -today 1.86 -monitor Chronic Bradycardia -HR has been better today off of BB (HR 58-79) -will leave pt off BB at d/c -TSH WNL PAF -now in NSR -no OAC 2/2 h/o GIB -hold BB DM-2 -Pt on Lantus 50 BID and had dose last pm -am Blood sugar was 109 and BGT have remained low -increase Lantus today to 30 u tonight and watch trend -increase log with meals to 10 u -SSI HTN -d/c Metoprolol with bradycardia-->improved and will therefore hold at d/c -continue Losartan -continue Isordil to 60 mg daily -BP is better today -prn hydralazine -monitor NILO -BIPAP at home -will do 04/02 here as pt not aware of what his home settings are HPL -continue statin BPH -cont home meds H/O DVT/PE -no OAC 2/2 h/o GIB MO -BMI 48 -recommend wgt loss DVT Prophylaxis -Heparin sub q Code status -Full Inpatient E&M: 14159 Subs Hosp L2
[2020-04-04 15:20] LABS: Bedside Glucose 190 mg/dL (70-110)
--- NOTE | 2020-04-04 16:07 | CT_ITS ---
We are attempting to reach an attending provider to discuss findings. An addendum with communication details will be sent when the communication is complete. STUDY: CT BRAIN WITHOUT CONTRAST REASON FOR EXAM: Male, 79 years old. CVA -- SLURRED SPEECH, RIGHT SIDE WEAKNESS RADIATION DOSAGE (If Supplied By Facility): CTDIvol = ( 44.99 ) mGy, DLP = ( 897.35 ) mGycm TECHNIQUE: Transaxial CT imaging of the brain was performed without administration of intravenous contrast material. Individualized dose optimization techniques were used for this CT. COMPARISON: 04/02/2020 FINDINGS: Normal soft tissue structures. Normal calvarium. Calcification of cavernous carotids Moderate atrophy and periventricular white matter ischemic changes.. Normal basal ganglia and thalami. Normal brainstem. Tiny focus of ischemic change in the right cerebellar hemisphere likely chronic. There is no intracranial hemorrhage. There are no findings of an acute ischemic infarction. Incidental finding of cavum cavum septum pellucidum which is normal developmental variant Minor mucosal thickening left maxillary sinus. No significant change since prior exam CT/Brain/Head without Contrast IMPRESSION: Moderate atrophy and periventricular white matter ischemic changes. Tiny focus of chronic ischemic changes in the right cerebellar hemisphere.. No evidence for acute bleed. If concern for acute infarct MRI recommended Electronically Signed: Sy Gonzalez MD at 16:30 EDT , Service support ,
[2020-04-04 16:15] LABS: Bedside Glucose 221 mg/dL (70-110)
--- NOTE | 2020-04-04 16:51 | CDU_ITS ---
Reason For Study: stroke/TIA Rt. Velocities/BP Lt. Velocities/BP Prox CCA 99.5/10.8 cm/sec. Prox CCA 88.3/8.0 cm/sec. Mid CCA 85.1/13.4 cm/sec. Mid CCA 83.9/11.3 cm/sec. Dist CCA 70.8/12.1 cm/sec. Dist CCA 91.6/13.5 cm/sec. Prox ICA 55.2/9.5 cm/sec. Prox ICA 68.5/9.1 cm/sec. Mid ICA 55.2/12.1 cm/sec. Mid ICA 75.1/12.4 cm/sec. Dist ICA 102.0/24.6 cm/sec. Dist ICA 94.9/28.9 cm/sec. Rt. ICA/CCA = 1.2. Lt. ICA/CCA = 1.1. Prox ECA 98.2/5.6 cm/sec. Prox ECA 146.7/6.0 cm/sec. Rt. Vert. 46.5/11.3 cm/sec. Lt. Vert. 35.5/8.0 cm/sec. Right Extracranial There is intimal thickening but no significant atherosclerotic plaque noted in the right common carotid artery. There is heterogeneous, irregular atherosclerotic plaque noted in the right internal carotid artery. There is intimal thickening but no significant atherosclerotic plaque noted in the right external carotid artery. Antegrade flow is noted in the right vertebral artery. There is heterogeneous, irregular atherosclerotic plaque noted in the right bulb. Left Extracranial There is intimal thickening but no significant atherosclerotic plaque noted in the left common carotid artery. There is heterogeneous, irregular atherosclerotic plaque noted in the left internal carotid artery. There is intimal thickening but no significant atherosclerotic plaque noted in the left external carotid artery. Antegrade flow is noted in the left vertebral artery. There is heterogeneous, irregular atherosclerotic plaque noted in the left bulb. Procedure Carotid Duplex [id number]. This is a Carotid Duplex examination using B-mode, color flow and specral Doppler. The exam was diagnostic. Exam performed portable in patient room. Interpretation Summary Minimal irregular plague at the proximal right internal carotid with <50% stenosis <50% stenosis right external carotid Irregular calcific plague at the proximal left internal carotid with <50% stenosis. <50% stenosis left external carotid Patent, antegrade vertebrals bilaterally Ordering Physician: Florinda Up Performed By: Montana Vela RVT
--- NOTE | 2020-04-04 16:53 | ECHOCS_ITS ---
Reason For Study: TIA/STROKE Procedure This was a 2D Doppler, Color Flow transthoracic echocardiogram. The study was technically difficult. Exam performed portable in patient room. Left Ventricle Normal LV size. The estimated ejection fraction is 70 %. No evidence for diastolic dysfunction. No regional wall motion abnormalities noted. Right Ventricle Normal RV size. Normal systolic function. Atria Normal left atrium. Normal right atrium. No doppler evidence for ASD. Mitral Valve Mitral valve not well visualized. There is no mitral valve stenosis. No mitral valve insufficiency. Tricuspid Valve The tricuspid valve is not well visualized. Unable to estimate RV systolic pressure due to inadequate jet, pulmonary artery pressure probably normal. Aortic Valve The aortic valve is not well visualized. There is no aortic stenosis. No aortic valve insufficiency. Pulmonic Valve There is no pulmonic valvular stenosis. No pulmonic valve insufficiency. Great Vessels Normal aortic root. Pericardium/Pleural No pericardial effusion. Medication Diluted definity 4ml given slow IV push to enhance endocardial definition. Performed a rapid injection of agitated mix of 9 cc saline and 1cc air to assess for atrial septal defect. MMode/2D Measurements & Calculations LVIDd: 4.2 cm IVSd: 1.4 cm Ao root diam: 3.5 cm LVIDs: 2.7 cm LVPWd: 1.4 cm FS: 35.5 % LAV(MOD-bp): 64.2 ml LA A4 area: 22.4 cm2 LA dimension(2D): 3.7 cm LAV(MOD-bp) Indexed: 24.2 ml/m2 LAV(MOD-sp2): 63.0 ml LAV(MOD-sp4): 64.1 ml RA A4 area: 22.0 cm2 Time Measurements MV dec time: 0.20 sec Doppler Measurements & Calculations MV E max sander: 75.1 cm/sec Lat Peak E' Sander: 6.3 cm/sec Med Peak E' Sander: 7.5 cm/sec MV A max sander: 120.4 cm/sec E/E' lat: 11.8 E/E' med: 10.0 MV E/A: 0.62 Ao V2 max: 203.4 cm/sec LV V1 max: 150.2 cm/sec Ao max P.5 mmHg LV V1 max P.0 mmHg Interpretation Summary The estimated ejection fraction is 70 %. No evidence for diastolic dysfunction. The study was technically difficult. Contrast injection was performed. Ordering Physician: Florinda Up Referring Physician: CLAUDETTE YBARRA Performed By: Shae Burks RDCS
--- NOTE | 2020-04-04 16:58 | PCM.HOSP.N ---
Hospitalist Note Called stat to bedside as pt had acute onset R sided weakness slurred speech and depressed mentation. Pt up in chair and appeared drowsy but appropriate and attempted to follow commands. Was unable to lift up R arm and had weakness in his R leg with continue slurred speech. Stroke team called and pt placed back to bed. Full NIH showed [address] was done and was negative for bleeding. Pt was evaluated by Stroke Team Physician at [facility] and repeat NIH at that time was 2. They recommended against the administration of tPA at this time. The did recommend vascular studies but pt has baseline CKD with sCr of 1.86 today (this is baseline) and therefore we elected to avoid contrast in this pt. Will obtain MRI in the am and Carotid US. Stroke orderset placed for continued NIH's. ECHO tomorrow. (did recently have one in 06/2019 that was WNL--> also had a cath at that time that showed non-obstructive mild CAD). was called x 2 but unable to get in contact with her. Trying to see if there is another number we can call.
[2020-04-04 17:06] LABS: Allen Test Positive; Base Excess 0 mmol/L (-2 to +2); Bicarbonate 24.1 mmol/L (22-26); Blood Gas Specimen Type ART; O2 Delivery Device Room Air; PO2 68 mmHG (75-100); SITE R Radial; SO2 94 % (95-99); Total Carbon Dioxide 25 mmol/L; pCO2 37.1 mmHg (35-45); pH 7.42 (7.35-7.45)
[2020-04-04 17:32] LABS: International Normalized Ratio 1.2; Prothrombin Time (Protime)PT. 14.5 SECONDS (11.7-14.9)
[2020-04-04 18:11] LABS: Bedside Glucose 200 mg/dL (70-110)
[2020-04-04] MEDS: Aspirin 300 MG Suppository RECTAL (18:52)
[2020-04-04] MEDS: hydrALAZINE 20 MG/ML Vial 10 MG IV (22:46)
[2020-04-04 22:55] LABS: Bedside Glucose 150 mg/dL (70-110)
[2020-04-05] VITALS (15 sets, daily range): BP systolic 133–163; BP diastolic 60–84; PULSE 62–95; RESP 12–18; TEMP 36.2–36.8; O2SAT 92–100; BMI 47.7
[2020-04-05 05:42] LABS: Absolute Lymphocyte Count 1.44 X10^3/uL (0.83-4.51); Absolute Neutrophil Count 4.7 X10^3/uL (2.0-7.7); Basophil# 0.04 X10^3/uL; Basophil% 0.6 % (0-1); Eosinophil# 0.17 X10^3/uL; Eosinophils% 2.4 % (0-5); Hematocrit 41.5 % (40-54); Hemoglobin 13.4 g/dL (13.0-16.5); Lymphocyte # 1.44 X10^3/ul (4.0); Lymphocyte % 20.7 % (19-41); Mean Corp Hgb Conc 32.3 g/dL (32-36); Mean Corpuscular Volume 86.6 fL (80-94); Mean Platelet Vol. 9.5 fl (6.2-12.0); Monocyte# 0.55 X10^3/uL; Monocyte% 7.9 % (0-10); NRBC Flagged by Analyzer 0 % (0-5); Neutrophil # 4.73 X10^3/uL (2.7-7.7); Neutrophil % 68.3 % (47-70); Platelet Count 231 K/mm3 (150-450); RBC Distribution Width CV 12.9 % (11.6-14.6); RBC Distribution Width SD 40.8 fl (35.1-43.9); Red Blood Count 4.79 M/mm3 (4.6-6.2); White Blood Count 6.9 K/mm3 (4.4-11.0)
--- NOTE | 2020-04-05 05:55 | MRI_ITS ---
We are attempting to reach an attending provider to discuss findings. An addendum with communication details will be sent when the communication is complete. STUDY: MRI BRAIN WITHOUT CONTRAST REASON FOR EXAM: Male, 79 years old. stroke,slurred speech rt side numbness,confusion TECHNIQUE: Standardized multiplanar fat and water weighted pulse sequences were obtained. COMPARISON: 04/04/2020 CT of the head. FINDINGS: There is moderate cerebral atrophy with widening of the extra-axial spaces and ventricular dilatation. There are a limited number of small white matter hyperintensities, distributed throughout the deep white matter tracts of the cerebral hemispheres, consistent with mild chronic white matter ischemic changes. Additionally there is a focus of chronic infarct of the right cerebellar hemisphere. There is approximately 8mm restricted diffusion on the left sherri with drop of signal on ADC map, consistent with acute infarction. Normal bilateral basal ganglia. Normal thalami. There is no extra-axial fluid accumulation. Normal flow voids within the major intracranial circulation suggesting patency by spin echo criteria. Normal sella turcica, pituitary gland, infundibular stalk, optic chiasm and hypothalamus. Normal tectal plate and pineal gland. MRI/Brain without Contrast IMPRESSION: Acute left pontine infarct. Electronically Signed: Rohith Hurst MD at 12:54 EDT Tel , Service support ,
[2020-04-05 06:02] LABS: AST(SGOT) 13 U/L (15-37); Alanine Aminotransfer ALT/SGPT 10 U/L (16-61); Albumin, Serum 2.7 g/dL (3.2-5.0); Alkaline Phosphatase 91 U/L (45-117); Anion Gap 8 (5-15); BUN 23 mg/dL (7-18); BUN/Creat Ratio 11.7 RATIO (10-20); Bilirubin, Direct 0.23 mg/dL (0.00-0.30); Calcium,Total 8.4 mg/dL (8.5-10.1); Chloride 110 mmol/L (98-107); Cholesterol 126 mg/dL (200); Creatinine, Serum 1.96 mg/dL (0.70-1.30); EST Glomerular Filtration Rate 35 mL/min (>60); Est Glom Filt Rate - Afr Amer 43 mL/min (>60); Estimated Creatinine Clearance 33.54 ml/min; Globulin 4.5 g/dL (2.2-4.2); Glucose 140 mg/dL (74-106); High Density Lipoprotein 37 mg/dL; Potassium 3.8 mmol/L (3.5-5.1); Protein, Total 7.2 g/dL (6.4-8.2); Sodium Level 139 mmol/L (136-145); Triglycerides 167 mg/dL; Very Low Density Lipoprotein 33 mg/dL (5-40)
[2020-04-05] MEDS: Heparin Injection (Vial) 5,000 UNIT/ML VIAL 5000 UNIT SC ×3 (06:03→22:13)
[2020-04-05] MEDS: hydrALAZINE 20 MG/ML Vial 10 MG IV (06:04)
[2020-04-05] MEDS: 0.9% Saline Lock 10 ML Syringe IV (06:05)
[2020-04-05 06:16] LABS: Bedside Glucose 143 mg/dL (70-110)
--- NOTE | 2020-04-05 11:11 | TELEMED_ITS ---
[facility] Telemed has confirmed receipt of a request for visit. This document confirms receipt of the order initiating the consult. To find the results of the consultation, please view the patient's reports for the scanned Telemed Consult.
[2020-04-05] MEDS: Losartan Potassium 100 MG Tablet PO (13:02)
[2020-04-05] MEDS: Tamsulosin HCl 0.4 MG Capsule 0.8 MG PO (13:02)
[2020-04-05] MEDS: Isosorbide Mononitrate 60 MG Tablet PO (13:02)
[2020-04-05] MEDS: Insulin Lispro 100 UNIT/ML INSULN.PEN SC ×3 (13:03→22:12)
[2020-04-05] MEDS: Citalopram 40 MG TABLET PO (13:03)
[2020-04-05] MEDS: Aspirin 81 MG TAB.CHEW PO (13:06)
[2020-04-05 13:16] LABS: Bedside Glucose 186 mg/dL (70-110)
[2020-04-05 16:51] LABS: Bedside Glucose 199 mg/dL (70-110)
--- NOTE | 2020-04-05 17:01 | PN_ITS ---
Subjective: All neuro sx have resolved other than speech issues which some are baseline. Pt states that he feels better than yesterday but not at baseline. NIH has been 1 but his speech is the same as it was prior to yesterday's events. Vitals/I&O's: Vital Signs Temp Pulse Resp BP Pulse Ox 97.2 F L 95 18 133/60 H 96 04/05/20 16:37 04/05/20 16:37 04/05/20 16:37 04/05/20 16:37 04/05/20 16:37 Oxygen Delivery Method Room Air Weight: 159.7 kg Body Mass Index (BMI) 47.7 Finger Stick Blood Glucose 221 Intake and Output for Last 24 Hours 04/03/20 04/04/20 04/05/20 23:59 23:59 23:59 Intake Total 2740.00 / 2740.00 150.00 / 150.00 100 / 100 Output Total 3100 / 3100 1700 / 1700 775 / 775 Balance -360.00 / -360.00 -1550.00 / -1550.00 -675 / -675 General: Alert, Oriented x3, Cooperative, No apparent distress, Well developed, Well nourished, - - MO older WM sitting up in bed with at bedside HEENT: Atraumatic, Normocephalic Oral: Moist Mucosa, No Gingival or Mucosal Lesions/ Ulcerations Neck: Supple, No JVD, Negative Hepatojugular Reflux, Trachea Midline Lungs: Clear to auscultation, No rhonchi, No wheeze, No rales, Diminished - diffusely Cardiovascular: Regular rate, Regular Rhythm, Normal S1, Normal S2, No murmurs, No Ectopic Activity, No rub noted, No Gallop Abdomen: Bowel Sounds Present, Soft, Non Tender, Non-Distended, No Hepato- splenomegaly, Obese Extremities: No clubbing, No cyanosis, Capillary Refill Less than 3 Seconds, Edema, Peripheral Pulses Normal Skin: No rashes Musculoskeletal: No Tenderness to Palpation of Joints or Extremities, No Muscle Wasting, Arthritic Changes Lymphatic: No Cervical, Supraclavicular, or Inguinal Adenopathy Neurological: Cranial nerves II-XII grossly intact, Deep Tendon Reflexes 2+/4 and Symmetrical, Neuro grossly intact - R Sided weakness has resolved, Muscle tone normal, Sensory exam intact to light touch and pain, Coordination normal Psych/Mental Status: Appropriate, Flat Affect, Alert and oriented to time, place, person, mood and affect Microbiology Past 72 Hours 04/02/20 15:55 Urine, Clean Catch Urine Culture - Preliminary Pseudomonas aeroginosa Staphylococcus aureus Laboratory Results 04/04/20 16:40: Troponin I < 0.015 04/04/20 16:40: PT 14.5, INR 1.2 04/04/20 16:59: Specimen Type ART, Sample Site R Radial, pH 7.42, Bicarbonate Actual 24.1, Total CO2 25, Base Excess 0, O2 Saturation 94 L, ABG pCO2 37.1, ABG pO2 68 L, Randy Test Positive, O2 Delivery Device Room Air 04/04/20 18:05: POC Glucose 200 H 04/04/20 22:36: POC Glucose 150 H 04/05/20 05:34: Sodium 139, Potassium 3.8, Chloride 110 H, Carbon Dioxide 21.0, Anion Gap 8, BUN 23 H, Creatinine 1.96 H, Estim Creat Clear Calc 33.54, Est GFR (MDRD) Af Amer 43 L, Est GFR (MDRD) Non-Af 35 L, BUN/Creatinine Ratio 11.7, Glucose 140 H, Calcium 8.4 L, Total Bilirubin 0.90, Direct Bilirubin 0.23, AST 13 L, ALT 10 L, Alkaline Phosphatase 91, Total Protein 7.2, Albumin 2.7 L, Globulin 4.5 H, Triglycerides 167, Cholesterol 126, LDL Cholesterol 56, VLDL Cholesterol 33, HDL Cholesterol 37 L 04/05/20 05:34: WBC 6.9, RBC 4.79, Hgb 13.4, Hct 41.5, MCV 86.6, MCH 28.0, MCHC 32.3, RDW Std Deviation 40.8, RDW Coeff of Hilary 12.9, Plt Count 231, MPV 9.5, Immature Gran % (Auto) 0.100, Neut % (Auto) 68.3, Lymph % (Auto) 20.7, Kendall % (Auto) 7.9, Eos % (Auto) 2.4, Baso % (Auto) 0.6, Absolute Neuts (auto) 4.7, Absolute Lymphs (auto) 1.44, Nucleated RBC % 0 04/05/20 05:56: POC Glucose 143 H 04/05/20 12:54: POC Glucose 186 H 04/05/20 16:36: POC Glucose 199 H Current Medications Acetaminophen (Tylenol) 650 mg PO Q6H PRN PRN PRN Reason: Pain Score 1-10/Temp > 100.7 F Last Admin: 04/04/20 14:31 Dose: 650 mg Documented by: Aspirin (Aspirin 81 Mg Tab.Chew) 81 mg PO DAILY@0800 [facility] Last Admin: 04/05/20 13:06 Dose: 81 mg Documented by: Atorvastatin Calcium (Lipitor) 40 mg PO QHS [facility] Last Admin: 04/04/20 22:26 Dose: Not Given Documented by: Citalopram Hydrobromide (Celexa) 40 mg PO DAILY [facility] Last Admin: 04/05/20 13:03 Dose: 40 mg Documented by: Heparin Sodium (Porcine) (Heparin Na) 5,000 unit SC Q8 [facility] Last Admin: 04/05/20 13:02 Dose: 5,000 unit Documented by: Hydralazine HCl (Hydralazine 20 Mg/Ml Vial) 10 mg IV Q6H PRN PRN PRN Reason: SBP >160 Last Admin: 04/03/20 17:20 Dose: 10 mg Documented by: Piperacillin Sod/Tazobactam (Sod 3.375 gm/ Sodium Chloride) 50 mls @ 12.5 mls/hr IV Q8 [facility] Last Admin: 04/05/20 14:21 Dose: 12.5 mls/hr Documented by: Sodium Chloride () 250 mls @ 15 mls/hr IV .[id number] PRN PRN Reason: Saline Flush Sodium Chloride () 250 mls @ 15 mls/hr IV .[id number] PRN PRN Reason: Additional IVPB Infusion Insulin Glargine (Insulin Glargine 100 Units/Ml Pen) 15 units SC QHS [facility] Last Admin: 04/04/20 22:37 Dose: Not Given Documented by: Insulin Human Lispro (Insulin Lispro 100 Unit/Ml Insuln.Pen) 0 unit SC [facility]; Protocol Last Admin: 04/05/20 16:40 Dose: 1 u Documented by: Isosorbide Mononitrate (Isosorbide Mononitrate 60 Mg Tablet) 60 mg PO DAILY [facility] Last Admin: 04/05/20 13:02 Dose: 60 mg Documented by: Labetalol HCl (Labetalol (Prefilled) 20 Mg/4 Ml) 10 - 20 mg IV Q10M PRN PRN PRN Reason: to Maintain BP Goals Losartan Potassium (Cozaar) 100 mg PO DAILY [facility] Last Admin: 04/05/20 13:02 Dose: 100 mg Documented by: Ondansetron HCl (Zofran) 4 mg IV Q8H PRN PRN PRN Reason: NAUSEA/VOMITING Senna/Docusate Sodium (Senokot-S, Tricia-Colace) 2 tablet PO BID PRN PRN PRN Reason: Constipation Sodium Chloride () 10 - 40 ml IV UD PRN PRN Reason: SALINE FLUSH Last Admin: 04/05/20 06:05 Dose: 10 ml Documented by: Tamsulosin HCl (Flomax) 0.8 mg PO DAILY [facility] Last Admin: 04/05/20 13:02 Dose: 0.8 mg Documented by: Zolpidem Tartrate (Ambien (Generic)) 5 mg PO QHS PRN PRN PRN Reason: INSOMNIA STROKE Vital Signs/Narrative: Vital Signs Temp Pulse Resp BP Pulse Ox 04/05/20 16:37 97.2 F L 95 18 133/60 H 96 04/05/20 15:00 88 Medical Necessity - Tobacco Use Smoking Status: Former smoker Assessment/Plan PsAg UTI -continue Zosyn for now -await sensitivities -if able to transition to orals will do at d/c -S.Aureus also grew but at low colony counts Acute Ischemic Stroke -MRI done today shows acute L pontine infarct -SOC consulted and no need for event monitor as suspect sm vessel disease -Carotid US pending -continue aggressive risk factor mgt -continue Lipitor 80 mg daily -with PAF and GIB OAC held but may need to consider restarting this if we can ascertain how severe the GIB was --> pt is a very poor historian Metabolic Encephalopathy -CT in ED neg -now back to baseline -suspect related to infection/stroke 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 -baseline sCr is about 1.5-1.8 -today 1.96 -monitor Chronic Bradycardia -HR has been better today off of BB (HR 58-79) -will leave pt off BB at d/c -TSH WNL PAF -now in NSR -no OAC 2/2 h/o GIB--> need to assess severity of GIB if able -hold BB DM-2 -Pt on Lantus 50 BID at home but hs not been needing that high of doses here -restart Lantus today to 30 u tonight and watch trend -log with meals to 6 u -SSI HTN -d/c Metoprolol with bradycardia-->improved and will therefore hold at d/c -continue Losartan -continue Isordil to 60 mg daily -BP is better today--> follow trends -prn hydralazine -monitor NILO -BIPAP at home -will do 04/02 here as pt not aware of what his home settings are HPL -continue statin BPH -cont home meds H/O DVT/PE -no OAC 2/2 h/o GIB MO -BMI 48 -recommend wgt loss DVT Prophylaxis -Heparin sub q Code status -Full Inpatient E&M: 87544 Subs Hosp L3
[2020-04-05] MEDS: Atorvastatin Calcium 80 MG Tablet PO (22:12)
[2020-04-05 22:25] LABS: Bedside Glucose 233 mg/dL (70-110)
[2020-04-06] VITALS (13 sets, daily range): BP systolic 130–169; BP diastolic 69–98; PULSE 65–73; RESP 17–20; TEMP 36.3–37.1; O2SAT 93–99; BMI 47.7
[2020-04-06] MEDS: Heparin Injection (Vial) 5,000 UNIT/ML VIAL 5000 UNIT SC ×3 (06:26→21:43)
[2020-04-06 08:05] LABS: Bedside Glucose 156 mg/dL (70-110)
[2020-04-06] MEDS: Insulin Lispro 100 UNIT/ML INSULN.PEN 6 UNIT SC ×3 (09:52→16:56)
[2020-04-06] MEDS: Insulin Lispro 100 UNIT/ML INSULN.PEN SC ×4 (09:52→21:43)
[2020-04-06] MEDS: Isosorbide Mononitrate 60 MG Tablet PO (09:53)
[2020-04-06] MEDS: Aspirin 81 MG TAB.CHEW PO (09:53)
[2020-04-06] MEDS: Citalopram 40 MG TABLET PO (09:53)
[2020-04-06] MEDS: Losartan Potassium 100 MG Tablet PO (09:53)
[2020-04-06] MEDS: Tamsulosin HCl 0.4 MG Capsule 0.8 MG PO (09:53)
[2020-04-06 11:56] LABS: Bedside Glucose 280 mg/dL (70-110)
--- NOTE | 2020-04-06 13:31 | CASEMGMT ---
SW met with patient, introduced self and role at [facility]. SW discussed d/c plan. Patient was open to going to [facility] 4th floor Rehab Unit. SW asked if he would like SW to contact his and tell her about Rehab. He said that would be fine. SW called Kathy and she said they can take patient in rehab. SW attempted to call patient's , but a recording came on indicating the number is not in service right now. SW will try again later or if she comes in to [facility] talk with her at that time. Green sheet will be on his chart for Thursday d/c to Inpatient Rehab. Plan: d/c to [facility] 4th floor Rehab Unit Thursday. Lilly DAWKINS MSW
--- NOTE | 2020-04-06 13:40 | CASEMGMT ---
SW completed a PHQ 9 with patient as he had a Stroke. He scored an 8 which indicates minimal depression. SW offered counseling resources and he declined. Lilly DAWKINS MSW
--- NOTE | 2020-04-06 15:37 | CASEMGMT ---
Patient is now being transferred to [facility]. YORDY called Kathy on [facility] referral line and let her know this information. Lilly DAWKINS MSW
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
[2020-04-06 16:30] LABS: Bedside Glucose 205 mg/dL (70-110)
[2020-04-06] MEDS: Atorvastatin Calcium 80 MG Tablet PO (21:46)
[2020-04-06 21:52] LABS: Bedside Glucose 216 mg/dL (70-110)
== END | disposition short-term general hospital (02) | DRG 64 ==
LOC: ED 17:03 → PCU 17:31
PROVIDERS: Admitting Provider Hospitalist; Emergency Provider Emergency Medicine; PCP Family Medicine; Visit Provider Internal Medicine
DX: I63.9 Cerebral infarction, unspecified (principal); G93.41 Metabolic encephalopathy; N30.00 Acute cystitis without hematuria; Z68.42 Body mass index [BMI] 45.0-49.9, adult; N17.9 Acute kidney failure, unspecified; G81.91 Hemiplegia, unspecified affecting right dominant side; E11.22 Type 2 diabetes mellitus with diabetic chronic kidney disease; I12.9 Hypertensive chronic kidney disease with stage 1 through stage 4 chronic kidney disease, or unspecified chronic kidney disease; N18.30 Chronic kidney disease, stage 3 unspecified; I48.0 Paroxysmal atrial fibrillation; R00.1 Bradycardia, unspecified; R47.81 Slurred speech; E78.5 Hyperlipidemia, unspecified; Z86.711 Personal history of pulmonary embolism; Z79.02 Long term (current) use of antithrombotics/antiplatelets; Z87.891 Personal history of nicotine dependence; Z79.4 Long term (current) use of insulin; Z79.899 Other long term (current) drug therapy; Z86.718 Personal history of other venous thrombosis and embolism; G47.33 Obstructive sleep apnea (adult) (pediatric); N40.0 Benign prostatic hyperplasia without lower urinary tract symptoms; E66.01 Morbid (severe) obesity due to excess calories; R29.715 NIHSS score 15; E11.42 Type 2 diabetes mellitus with diabetic polyneuropathy; A48.8 Other specified bacterial diseases; J44.9 Chronic obstructive pulmonary disease, unspecified; D63.1 Anemia in chronic kidney disease; Z23 Encounter for immunization
CPT/HCPCS: 36415; 36600; 70450; 70551; 80048; 80061; 80076; 81001; 82803; 82962; 84443; 84484; 85025; 85610; 87077; 87086; 87088; 87186; 87641; 92526; 92610; 93005; 93306; 93880; 94002; 94003; 94762; 97110; 97116; 97162; 97166; 97530; 99251; 99284; G0008; J7030; Q9957; 90686; A4216; C8929; G0463

== ENCOUNTER 2020-04-11 17:27 | Inpatient (IN) | payer MEDICARE, OTHER, SELFPAY ==
[2020-04-06 07:55] VITALS: BMI 47.7
[2020-04-11 16:52] VITALS: BP 140/59; PULSE 70; RESP 22; TEMP 36.8; O2SAT 95; BMI 47.1
[2020-04-11] MEDS: APIXABAN 5 MG TABLET PO (18:25)
[2020-04-11 18:45] LABS: Bedside Glucose 168 mg/dL (70-110)
[2020-04-11] MEDS: Albuterol 2.5 MG/3 ML VIAL.NEB. INHALATION (19:20)
[2020-04-11] MEDS: Budesonide Respules 0.5 MG/2 ML AMPUL.NEB. INHALATION (19:20)
[2020-04-11 19:28] VITALS: PULSE 78; RESP 22; O2SAT 95
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
[2020-04-11 22:15] LABS: Bedside Glucose 177 mg/dL (70-110)
[2020-04-11] MEDS: Atorvastatin Calcium 40 MG Tablet PO (22:53)
[2020-04-11] MEDS: Magnesium Hydroxide 30 ML UDC PO (23:10)
[2020-04-11] MEDS: Sucralfate 1 GM Tablet PO (23:13)
[2020-04-12 05:10] VITALS: BP 160/78; PULSE 64; RESP 18; TEMP 36.8; O2SAT 97
[2020-04-12] MEDS: Fluticasone 0.05% 1 SPRAY NASAL.SRY NASAL (05:18)
[2020-04-12 05:19] VITALS: BP 160/78; PULSE 65
[2020-04-12] MEDS: Citalopram 40 MG TABLET PO (05:19)
[2020-04-12] MEDS: Tamsulosin HCl 0.4 MG Capsule 0.8 MG PO (05:19)
[2020-04-12] MEDS: Metoprolol(XL)Succ 25 MG Tablet 12.5 MG PO (05:19)
[2020-04-12] MEDS: Isosorbide Mononitrate 30 MG Tablet PO (05:19)
[2020-04-12] MEDS: Senna Tablet 1 TABLET PO ×2 (05:20→17:51)
[2020-04-12] MEDS: Polyethylene Glycol 3350 17 GM PACKET PO (05:20)
[2020-04-12] MEDS: NIFEdipine 60 MG Tablet PO (05:20)
[2020-04-12] MEDS: Losartan Potassium 100 MG Tablet PO (05:21)
[2020-04-12] MEDS: APIXABAN 5 MG TABLET PO ×2 (05:21→17:51)
[2020-04-12 06:04] LABS: Absolute Lymphocyte Count 0.99 X10^3/uL (0.83-4.51); Absolute Neutrophil Count 5.7 X10^3/uL (2.0-7.7); Basophil# 0.03 X10^3/uL; Basophil% 0.4 % (0-1); Eosinophil# 0.34 X10^3/uL; Eosinophils% 4.4 % (0-5); Hematocrit 41.8 % (40-54); Hemoglobin 13.1 g/dL (13.0-16.5); Lymphocyte # 0.99 X10^3/ul (4.0); Lymphocyte % 12.7 % (19-41); Mean Corp Hgb Conc 31.3 g/dL (32-36); Mean Corpuscular Hgb 28.2 pg (27.0-32.0); Mean Corpuscular Volume 90.1 fL (80-94); Mean Platelet Vol. 9.9 fl (6.2-12.0); Monocyte# 0.71 X10^3/uL; Monocyte% 9.1 % (0-10); NRBC Flagged by Analyzer 0 % (0-5); Neutrophil # 5.68 X10^3/uL (2.7-7.7); Neutrophil % 73.1 % (47-70); Platelet Count 235 K/mm3 (150-450); RBC Distribution Width CV 13.1 % (11.6-14.6); RBC Distribution Width SD 43.3 fl (35.1-43.9); Red Blood Count 4.64 M/mm3 (4.6-6.2); White Blood Count 7.8 K/mm3 (4.4-11.0)
[2020-04-12 06:26] LABS: Bedside Glucose 134 mg/dL (70-110)
[2020-04-12 06:30] LABS: Anion Gap 7 (5-15); BUN 31 mg/dL (7-18); BUN/Creat Ratio 13.8 RATIO (10-20); Calcium,Total 8.6 mg/dL (8.5-10.1); Chloride 114 mmol/L (98-107); Creatinine, Serum 2.25 mg/dL (0.70-1.30); EST Glomerular Filtration Rate 30 mL/min (>60); Est Glom Filt Rate - Afr Amer 36 mL/min (>60); Estimated Creatinine Clearance 29.22 ml/min; Glucose 131 mg/dL (74-106); Potassium 3.8 mmol/L (3.5-5.1); Sodium Level 144 mmol/L (136-145)
[2020-04-12 06:42] VITALS: PULSE 66; RESP 20; O2SAT 94
[2020-04-12] MEDS: Budesonide Respules 0.5 MG/2 ML AMPUL.NEB. INHALATION ×2 (06:42→19:53)
[2020-04-12] MEDS: Albuterol 2.5 MG/3 ML VIAL.NEB. INHALATION (06:42)
--- NOTE | 2020-04-12 06:46 | CPS ---
Someone is bringing in his BIPAP today and he wears O2 though the BIPAP at 3 LPM at night only
[2020-04-12] MEDS: Tuberculin,Purif.prot.deriv. 50 TU/ML Vial 5 ML ID (10:00)
[2020-04-12 11:11] LABS: Bedside Glucose 181 mg/dL (70-110)
[2020-04-12] MEDS: Ferrous Sulfate 325 MG Tablet PO ×2 (11:29→17:51)
[2020-04-12 13:26] VITALS: BP 136/70; PULSE 60; RESP 16; TEMP 36.6; O2SAT 91
[2020-04-12 16:51] LABS: Bedside Glucose 191 mg/dL (70-110)
[2020-04-12 19:53] VITALS: PULSE 65; RESP 16
[2020-04-12] MEDS: Atorvastatin Calcium 40 MG Tablet PO (20:09)
--- NOTE | 2020-04-12 21:22 | CPS ---
Pt.'s home BiPAP unit
[2020-04-12 21:55] LABS: Bedside Glucose 233 mg/dL (70-110)
[2020-04-13 05:00] VITALS: BP 156/80; PULSE 60; RESP 18; TEMP 36.9; O2SAT 95
[2020-04-13 05:28] VITALS: BP 156/80; PULSE 60
[2020-04-13] MEDS: NIFEdipine 60 MG Tablet PO (05:28)
[2020-04-13] MEDS: Polyethylene Glycol 3350 17 GM PACKET PO (05:28)
[2020-04-13] MEDS: Metoprolol(XL)Succ 25 MG Tablet 12.5 MG PO (05:28)
[2020-04-13] MEDS: Senna Tablet 1 TABLET PO ×2 (05:28→17:35)
[2020-04-13] MEDS: Losartan Potassium 100 MG Tablet PO (05:28)
[2020-04-13] MEDS: Tamsulosin HCl 0.4 MG Capsule 0.8 MG PO (05:28)
[2020-04-13] MEDS: Citalopram 40 MG TABLET PO (05:28)
[2020-04-13] MEDS: Isosorbide Mononitrate 30 MG Tablet PO (05:28)
[2020-04-13] MEDS: APIXABAN 5 MG TABLET PO ×2 (05:29→17:34)
[2020-04-13] MEDS: Fluticasone 0.05% 1 SPRAY NASAL.SRY NASAL (05:33)
[2020-04-13 06:30] LABS: Bedside Glucose 134 mg/dL (70-110)
[2020-04-13 06:40] VITALS: PULSE 68; RESP 16; O2SAT 96
[2020-04-13] MEDS: Budesonide Respules 0.5 MG/2 ML AMPUL.NEB. INHALATION ×2 (06:40→19:16)
[2020-04-13 10:00] VITALS: PULSE 62; RESP 18; O2SAT 96
--- NOTE | 2020-04-13 10:56 | CASEMGMT ---
Social Work Discussed code status with pt. Pt confirmed full code. MOLST form reviewed and placed in chart. Explained and provided stroke support group information. Serena Izquierdo, [employer]
[2020-04-13] MEDS: Ferrous Sulfate 325 MG Tablet PO ×2 (11:05→17:34)
[2020-04-13 11:06] LABS: Bedside Glucose 214 mg/dL (70-110)
[2020-04-13 14:14] VITALS: BP 108/52; PULSE 65; RESP 18; TEMP 36.2; O2SAT 96
--- NOTE | 2020-04-13 15:51 | PHA.CONS_ITS ---
<Federica Zhang - Last Filed: 04/13/20 15:51> Progress Note - Pharmacy Subjective: TCU Admission Objective: Allergies MARGIE Inhibitors Allergy (Unknown, Verified 04/02/20 15:01) edema cefepime Allergy (Verified 04/02/20 15:01) weakness and falling WEAKNESS & FALLING ipodate [Ipodate] Allergy (Verified 04/02/20 15:01) Shortness of breath levofloxacin [Levofloxacin] Allergy (Verified 04/02/20 15:01) Anaphylaxis lisinopril Allergy (Verified 04/02/20 15:01) Shortness of breath ofloxacin Allergy (Verified 04/02/20 15:01) Other Quinolones Allergy (Verified 04/02/20 15:01) Anaphylaxis Current Medications Generic Name Dose Route Start Last Admin Trade Name Freq PRN Reason Stop Dose Admin Acetaminophen 1,000 mg 04/11/20 19:54 Acetaminophen 500 Mg Tablet PO Q6H PRN PRN Pain Score 1-10 Albuterol Sulfate 2.5 mg 04/11/20 17:46 04/12/20 06:42 Albuterol 2.5 Mg/3 Ml Vial.Neb. INHALATION 2.5 mg Q6H PRN PRN Administration SOB or Wheezing Apixaban 5 mg 04/11/20 18:00 04/13/20 05:29 Apixaban 5 Mg Tablet PO 5 mg Q12 FERNANDO Administration Atorvastatin Calcium 40 mg 04/11/20 22:00 04/12/20 20:09 Atorvastatin Calcium 40 Mg Tablet PO 40 mg QHS FERNANDO Administration Bisacodyl 10 mg 04/11/20 19:52 Bisacodyl 10 Mg Suppository RECTAL DAILY PRN Constipation Budesonide 0.5 mg 04/11/20 18:00 04/13/20 06:40 Budesonide Respules 0.5 Mg/2 Ml Ampul.Neb. INHALATION 0.5 mg Q12H.RT FERNANDO Administration Citalopram Hydrobromide 60 mg 04/14/20 06:00 Citalopram 40 Mg Tablet PO DAILY FERNANDO Ferrous Sulfate 325 mg 04/12/20 12:00 04/13/20 11:05 Ferrous Sulfate 325 Mg Tablet PO 325 mg 1200,1700 FERNANDO Administration Fluticasone Propionate 1 spray 04/12/20 06:00 04/13/20 05:33 Fluticasone 0.05% 1 [place] Nasal.Sry NASAL 1 spray DAILY FERNANDO Administration Gabapentin 300 - 600 mg 04/11/20 16:59 Gabapentin 300 Mg Capsule PO TID PRN PRN nerve pain Insulin Glargine 20 units 04/11/20 18:00 04/13/20 08:30 Insulin Glargine 100 Units/Ml Pen SC 20 units BID FERNANDO Administration Isosorbide Mononitrate 30 mg 04/12/20 06:00 04/13/20 05:28 Isosorbide Mononitrate 30 Mg Tablet PO 30 mg DAILY FERNANDO Administration Losartan Potassium 100 mg 04/12/20 06:00 04/13/20 05:28 Losartan Potassium 100 Mg Tablet PO 100 mg DAILY FERNANDO Administration Magnesium Hydroxide 30 ml 04/11/20 19:52 04/11/20 23:10 Magnesium Hydroxide 30 Ml Udc PO 30 ml DAILY PRN Administration Constipation Metoprolol Succinate 12.5 mg 04/12/20 06:00 04/13/20 05:28 Metoprolol(Xl)Succ 25 Mg Tablet PO 12.5 mg DAILY FERNANDO Administration Multi-Ingredient Cream 1 applic 04/11/20 17:30 Mineral Oil/Petrolatum,White Jar TOPICAL BID PRN PRN DRY SKIN Protocol Nifedipine 60 mg 04/12/20 06:00 04/13/20 05:28 Nifedipine 60 Mg Tablet PO 60 mg DAILY FERNANDO Administration Nitroglycerin 0.4 mg 04/11/20 17:20 Nitroglycerin (Inpatient Use) 0.4 Mg Tab.Subl SUBLINGUAL Q5M PRN CARDIAC/CHEST PAIN Polyethylene Glycol 17 gm 04/12/20 06:00 04/13/20 05:28 Polyethylene Glycol 3350 17 Gm Packet PO 17 gm DAILY FERNANDO Administration Senna 1 tablet 04/12/20 06:00 04/13/20 05:28 Senna Tablet PO 1 tablet BID FERNANDO Administration Sucralfate 1 gm 04/11/20 17:24 04/11/20 23:13 Sucralfate 1 Gm Tablet PO 1 gm 1HR_ACHS PRN Administration Stomach Tamsulosin HCl 0.8 mg 04/12/20 06:00 04/13/20 05:28 Tamsulosin Hcl 0.4 Mg Capsule PO 0.8 mg DAILY FERNANDO Administration Tuberculin PPD 5 tu 04/19/20 10:00 Tuberculin,Purif.Prot.Deriv. 50 Tu/Ml Vial ID 04/19/20 10:01 X1 ONE Problem List (Last Updated 04/02/20 @ 17:[address] Love Christine MD) Debility (Acute) Change in mental status (Acute) Stroke (Acute) Dysarthria (Acute) Right hemiparesis (Acute) Diabetes mellitus (Chronic) Pulmonary embolism (Chronic) Hypertension (Chronic) Atrial fibrillation (Chronic) Depression (Chronic) BPH (benign prostatic hyperplasia) (Chronic) Neuropathic pain (Chronic) Coronary artery disease (Acute) Stage III chronic kidney disease (Chronic) Right bundle branch block (RBBB) (Chronic) HLD (hyperlipidemia) (Chronic) Vital Signs Temp Pulse Resp BP Pulse Ox 97.2 F L 65 18 108/52 L 96 04/13/20 14:14 04/13/20 14:14 04/13/20 14:14 04/13/20 14:14 04/13/20 14:14 Oxygen Flow Rate (L/min) 3 Oxygen Delivery Method Room Air Weight: 157.567 kg Body Mass Index (BMI) 47.1 Finger Stick Blood Glucose 221 Sodium 144 mmol/L (136-145) 04/12/20 05:17 Potassium 3.8 mmol/L (3.5-5.1) 04/12/20 05:17 Chloride 114 mmol/L (98-107) H 04/12/20 05:17 Carbon Dioxide 23.0 mmol/L (21.0-32.0) 04/12/20 05:17 Anion Gap 7 (5-15) 04/12/20 05:17 BUN 31 mg/dL (7-18) H 04/12/20 05:17 Creatinine 2.25 mg/dL (0.70-1.30) H 04/12/20 05:17 Est GFR (MDRD) Af Amer 36 mL/min (>60) L 04/12/20 05:17 Est GFR (MDRD) Non-Af 30 mL/min (>60) L 04/12/20 05:17 BUN/Creatinine Ratio 13.8 RATIO (-) 04/12/20 05:17 Glucose 131 mg/dL (74-106) H 04/12/20 05:17 Assessment/Plan: 1. Pain: acetaminophen 1000mg PO Q6H PRN pain score 1-10/10 , please monitor for improvement/worsening of pain and PRN usage. 2. COPD : Albuterol 2.5mg inhalation Q6H PRN SOB or wheezing and budesonide 0.5mg inhalation Q12H. Please monitor for S/S of COPD exacerbation and PRN usa ge. 3. CAD/Atrial Fibrillation/ Pulmonary Embolism: apixaban 5mg PO Q12H, metoprolol succinate 12.5mg PO daily, nifedipine 60mg PO daily, losartan 100mg PO daily, isosorbide mononitrate 30mg PO daily, nitroglycerin 0.4mg SL Q5M PRN cardiac/chest pain. Please monitor for S/S of bleeding, BP (last 156/80), HR (last 65), renal function and for chest pain. 4. Hyperlipidemia: atorvastatin 40mg PO QHS. Please monitor lipid panel and muscle pain. 5. Diabetes Mellitus II: Lantus 20 units SC BID. Please monitor BG (last BG 04/13/20; 134mg/dL), S/S of hypoglycemia, and hemoglobin A1c (last 7%). 6. Neuropathic pain: gabapentin 300-600mg PO TID PRN nerve pain. Please monitor for improvement/worsening of nerve pain and PRN usage. 7. Iron deficiency: ferrous sulfate 325mg PO BID. Please monitor hemoglobin (last 13.1g/dL) and for dark stools. 8. GERD: sucralfate 1gm PO 1 H ACHS PRN stomach. Please monitor for improvement/worsening of GERD and PRN usage. 9. Allergic Rhinitis: Flonase 1 spray each nostril daily. Please monitor for improvement/worsening of allergic rhinitis. 10. BPH: Tamsulosin 0.8mg PO daily. Please monitor for improvement/worsening of BPH and hypotension. Psychotropic Medications: 1. Depression: Citalopram 60mg PO daily. Please see physician?s note for GDR recommendation. Unnecessary Medications: None Bowel Regimen: Bisacodyl 10mg CT daily PRN constipation, Magnesium hydroxide 30 mL PO daily PRN constipation, Miralax 17gm PO daily, Senna 1 Tablet PO BID. Please monitor for S/S of constipation/diarrhea and PRN usage. Date of Note:: 04/13/20 - Provider Comments Provider responsibility: Provider responsible to enter orders to implement recommendations <José Manuel Hernandez Chi - Last Filed: 04/13/20 18:37> Progress Note - Pharmacy Subjective: [] Objective: Allergies MARGIE Inhibitors Allergy (Unknown, Verified 04/02/20 15:01) edema cefepime Allergy (Verified 04/02/20 15:01) weakness and falling WEAKNESS & FALLING ipodate [Ipodate] Allergy (Verified 04/02/20 15:01) Shortness of breath levofloxacin [Levofloxacin] Allergy (Verified 04/02/20 15:01) Anaphylaxis lisinopril Allergy (Verified 04/02/20 15:01) Shortness of breath ofloxacin Allergy (Verified 04/02/20 15:01) Other Quinolones Allergy (Verified 04/02/20 15:01) Anaphylaxis Current Medications Generic Name Dose Route Start Last Admin Trade Name Freq PRN Reason Stop Dose Admin Acetaminophen 1,000 mg 04/11/20 19:54 Acetaminophen 500 Mg Tablet PO Q6H PRN PRN Pain Score 1-10 Albuterol Sulfate 2.5 mg 04/11/20 17:46 04/12/20 06:42 Albuterol 2.5 Mg/3 Ml Vial.Neb. INHALATION 2.5 mg Q6H PRN PRN Administration SOB or Wheezing Apixaban 5 mg 04/11/20 18:00 04/13/20 17:34 Apixaban 5 Mg Tablet PO 5 mg Q12 FERNANDO Administration Atorvastatin Calcium 40 mg 04/11/20 22:00 04/12/20 20:09 Atorvastatin Calcium 40 Mg Tablet PO 40 mg QHS FERNANDO Administration Bisacodyl 10 mg 04/11/20 19:52 Bisacodyl 10 Mg Suppository RECTAL DAILY PRN Constipation Budesonide 0.5 mg 04/11/20 18:00 04/13/20 06:40 Budesonide Respules 0.5 Mg/2 Ml Ampul.Neb. INHALATION 0.5 mg Q12H.RT FERNANDO Administration Citalopram Hydrobromide 60 mg 04/14/20 06:00 Citalopram 40 Mg Tablet PO DAILY FERNANDO Ferrous Sulfate 325 mg 04/12/20 12:00 04/13/20 17:34 Ferrous Sulfate 325 Mg Tablet PO 325 mg 1200,1700 FERNANDO Administration Fluticasone Propionate 1 spray 04/12/20 06:00 04/13/20 05:33 Fluticasone 0.05% 1 [place] Nasal.Sry NASAL 1 spray DAILY FERNANDO Administration Gabapentin 300 - 600 mg 04/11/20 16:59 Gabapentin 300 Mg Capsule PO TID PRN PRN nerve pain Insulin Glargine 20 units 04/11/20 18:00 04/13/20 17:34 Insulin Glargine 100 Units/Ml Pen SC 20 units BID FERNANDO Administration Insulin Human Lispro 10 unit 04/13/20 18:35 Insulin Lispro 100 Unit/Ml Insuln.Pen SC 04/13/20 18:36 X1 ONE Isosorbide Mononitrate 30 mg 04/12/20 06:00 04/13/20 05:28 Isosorbide Mononitrate 30 Mg Tablet PO 30 mg DAILY FERNANDO Administration Losartan Potassium 100 mg 04/12/20 06:00 04/13/20 05:28 Losartan Potassium 100 Mg Tablet PO 100 mg DAILY FERNANDO Administration Magnesium Hydroxide 30 ml 04/11/20 19:52 04/11/20 23:10 Magnesium Hydroxide 30 Ml Udc PO 30 ml DAILY PRN Administration Constipation Metoprolol Succinate 12.5 mg 04/12/20 06:00 04/13/20 05:28 Metoprolol(Xl)Succ 25 Mg Tablet PO 12.5 mg DAILY FERNANDO Administration Multi-Ingredient Cream 1 applic 04/11/20 17:30 Mineral Oil/Petrolatum,White Jar TOPICAL BID PRN PRN DRY SKIN Protocol Nifedipine 60 mg 04/12/20 06:00 04/13/20 05:28 Nifedipine 60 Mg Tablet PO 60 mg DAILY FERNANDO Administration Nitroglycerin 0.4 mg 04/11/20 17:20 Nitroglycerin (Inpatient Use) 0.4 Mg Tab.Subl SUBLINGUAL Q5M PRN CARDIAC/CHEST PAIN Polyethylene Glycol 17 gm 04/12/20 06:00 04/13/20 05:28 Polyethylene Glycol 3350 17 Gm Packet PO 17 gm DAILY FERNANDO Administration Senna 1 tablet 04/12/20 06:00 04/13/20 17:35 Senna Tablet PO 1 tablet BID FERNANDO Administration Sucralfate 1 gm 04/11/20 17:24 04/11/20 23:13 Sucralfate 1 Gm Tablet PO 1 gm 1HR_ACHS PRN Administration Stomach Tamsulosin HCl 0.8 mg 04/12/20 06:00 04/13/20 05:28 Tamsulosin Hcl 0.4 Mg Capsule PO 0.8 mg DAILY FERNANDO Administration Tuberculin PPD 5 tu 04/19/20 10:00 Tuberculin,Purif.Prot.Deriv. 50 Tu/Ml Vial ID 04/19/20 10:01 X1 ONE Problem List (Last Updated 04/02/20 @ 17:[address] Love Crhistine MD) Debility (Acute) Change in mental status (Acute) Stroke (Acute) Dysarthria (Acute) Right hemiparesis (Acute) Diabetes mellitus (Chronic) Pulmonary embolism (Chronic) Hypertension (Chronic) Atrial fibrillation (Chronic) Depression (Chronic) BPH (benign prostatic hyperplasia) (Chronic) Neuropathic pain (Chronic) Coronary artery disease (Acute) Stage III chronic kidney disease (Chronic) Right bundle branch block (RBBB) (Chronic) HLD (hyperlipidemia) (Chronic) Vital Signs Temp Pulse Resp BP Pulse Ox 97.2 F L 65 18 108/52 L 96 04/13/20 14:14 04/13/20 14:14 04/13/20 14:14 04/13/20 14:14 04/13/20 14:14 Oxygen Flow Rate (L/min) 3 Oxygen Delivery Method Room Air Weight: 157.567 kg Body Mass Index (BMI) 47.1 Finger Stick Blood Glucose 221 Sodium 144 mmol/L (136-145) 04/12/20 05:17 Potassium 3.8 mmol/L (3.5-5.1) 04/12/20 05:17 Chloride 114 mmol/L (98-107) H 04/12/20 05:17 Carbon Dioxide 23.0 mmol/L (21.0-32.0) 04/12/20 05:17 Anion Gap 7 (5-15) 04/12/20 05:17 BUN 31 mg/dL (7-18) H 04/12/20 05:17 Creatinine 2.25 mg/dL (0.70-1.30) H 04/12/20 05:17 Est GFR (MDRD) Af Amer 36 mL/min (>60) L 04/12/20 05:17 Est GFR (MDRD) Non-Af 30 mL/min (>60) L 04/12/20 05:17 BUN/Creatinine Ratio 13.8 RATIO (10-20) 04/12/20 05:17 Glucose 131 mg/dL (74-106) H 04/12/20 05:17 Assessment/Plan: Psychotropic Medications: Unnecessary Medications: Bowel Regimen: - Provider Comments Provider responsibility: Provider responsible to enter orders to implement recommendations Provider Comments to Recommendations by Pharmacy: Agree
[2020-04-13 16:41] LABS: Bedside Glucose 270 mg/dL (70-110)
[2020-04-13 19:10] VITALS: PULSE 58; RESP 18; O2SAT 90
[2020-04-13] MEDS: Albuterol 2.5 MG/3 ML VIAL.NEB. INHALATION (19:16)
[2020-04-13 21:51] LABS: Bedside Glucose 210 mg/dL (70-110)
[2020-04-13] MEDS: Atorvastatin Calcium 40 MG Tablet PO (22:49)
--- NOTE | 2020-04-14 01:15 | NURSING ---
Dr. Hernandez called about Humalog order not given at 1835, blood sugar 199 at this time, order to not give Humalog. Pt resting in bed, own bipap on, refilled with H2O per pt request.
[2020-04-14 01:26] LABS: Bedside Glucose 199 mg/dL (70-110)
[2020-04-14 05:49] VITALS: BP 129/61; PULSE 60; RESP 18; TEMP 36.9; O2SAT 95
[2020-04-14] MEDS: Fluticasone 0.05% 1 SPRAY NASAL.SRY NASAL (05:53)
[2020-04-14 05:54] VITALS: BP 129/61; PULSE 60
[2020-04-14] MEDS: Senna Tablet 1 TABLET PO ×2 (05:54→16:57)
[2020-04-14] MEDS: Tamsulosin HCl 0.4 MG Capsule 0.8 MG PO (05:54)
[2020-04-14] MEDS: Isosorbide Mononitrate 30 MG Tablet PO (05:54)
[2020-04-14] MEDS: Losartan Potassium 100 MG Tablet PO (05:54)
[2020-04-14] MEDS: NIFEdipine 60 MG Tablet PO (05:54)
[2020-04-14] MEDS: Metoprolol(XL)Succ 25 MG Tablet 12.5 MG PO (05:54)
[2020-04-14] MEDS: Polyethylene Glycol 3350 17 GM PACKET PO (05:54)
[2020-04-14] MEDS: APIXABAN 5 MG TABLET PO ×2 (05:55→16:56)
[2020-04-14] MEDS: Citalopram 40 MG TABLET 60 MG PO (05:55)
[2020-04-14 06:26] LABS: Bedside Glucose 135 mg/dL (70-110)
[2020-04-14 07:22] VITALS: O2SAT 95
--- NOTE | 2020-04-14 10:43 | CPS ---
pt. sleeping at 7 a.m did not wake for pulmicort tx., checked on at 10:30, pt. refused tx.
[2020-04-14 11:30] LABS: Bedside Glucose 181 mg/dL (70-110)
[2020-04-14] MEDS: Ferrous Sulfate 325 MG Tablet PO ×2 (12:01→16:56)
--- NOTE | 2020-04-14 12:44 | NURSING ---
Resident notified of COVID Outbreak status. Number for , Rhina, is not in service.
[2020-04-14 14:35] VITALS: BP 132/79; PULSE 60; RESP 18; TEMP 36.3; O2SAT 95
[2020-04-14 16:26] LABS: Bedside Glucose 234 mg/dL (70-110)
[2020-04-14 20:18] VITALS: PULSE 55; RESP 18; O2SAT 97
[2020-04-14] MEDS: Budesonide Respules 0.5 MG/2 ML AMPUL.NEB. INHALATION (20:18)
[2020-04-14] MEDS: Atorvastatin Calcium 40 MG Tablet PO (21:48)
[2020-04-14 22:16] LABS: Bedside Glucose 193 mg/dL (70-110)
--- NOTE | 2020-04-15 03:10 | NURSING ---
Pt resting in bed, hob elevated, resting with eyes closed, bipap in place, resp even.
[2020-04-15] MEDS: Fluticasone 0.05% 1 SPRAY NASAL.SRY NASAL (04:48)
[2020-04-15] MEDS: Citalopram 40 MG TABLET 60 MG PO (04:49)
[2020-04-15 04:50] VITALS: BP 149/76; PULSE 74
[2020-04-15] MEDS: Metoprolol(XL)Succ 25 MG Tablet 12.5 MG PO (04:50)
[2020-04-15] MEDS: Tamsulosin HCl 0.4 MG Capsule 0.8 MG PO (04:50)
[2020-04-15] MEDS: Isosorbide Mononitrate 30 MG Tablet PO (04:50)
[2020-04-15] MEDS: NIFEdipine 60 MG Tablet PO (04:51)
[2020-04-15] MEDS: Losartan Potassium 100 MG Tablet PO (04:51)
[2020-04-15] MEDS: APIXABAN 5 MG TABLET PO ×2 (04:51→17:58)
[2020-04-15 04:54] VITALS: BP 149/76; PULSE 74; RESP 19; TEMP 36.7; O2SAT 94
--- NOTE | 2020-04-15 05:16 | NURSING ---
Pt up to br, had another large loose bm, denies nausea or cramps, states I just had to go.
[2020-04-15 06:31] LABS: Bedside Glucose 125 mg/dL (70-110)
[2020-04-15] MEDS: Ferrous Sulfate 325 MG Tablet PO ×2 (11:32→17:58)
[2020-04-15 11:35] LABS: Bedside Glucose 174 mg/dL (70-110)
[2020-04-15 13:22] VITALS: O2SAT 91
[2020-04-15 17:43] VITALS: BP 152/80; PULSE 77; RESP 20; TEMP 36.6; O2SAT 96
[2020-04-15 17:44] VITALS: PULSE 77; RESP 20
[2020-04-15] MEDS: Senna Tablet 1 TABLET PO (17:58)
[2020-04-15 20:01] VITALS: PULSE 53; RESP 18; O2SAT 91
[2020-04-15] MEDS: Budesonide Respules 0.5 MG/2 ML AMPUL.NEB. INHALATION (20:01)
[2020-04-15] MEDS: Atorvastatin Calcium 40 MG Tablet PO (20:13)
[2020-04-15 21:50] LABS: Bedside Glucose 195 mg/dL (70-110)
[2020-04-16 04:07] VITALS: BP 147/69; PULSE 73; RESP 19; TEMP 36.6; O2SAT 94
[2020-04-16] MEDS: Fluticasone 0.05% 1 SPRAY NASAL.SRY NASAL (04:09)
[2020-04-16] MEDS: Nystatin Powder 15gm Bottle 1 APPLIC TOPICAL ×2 (04:10→17:36)
[2020-04-16] MEDS: Menthol/Lanolin/Calamine/Znox 113 GM Tube 1 APPLIC TOPICAL ×2 (04:10→17:36)
[2020-04-16 04:11] VITALS: BP 147/69; PULSE 73
[2020-04-16] MEDS: Metoprolol(XL)Succ 25 MG Tablet 12.5 MG PO (04:11)
[2020-04-16] MEDS: NIFEdipine 60 MG Tablet PO (04:11)
[2020-04-16] MEDS: APIXABAN 5 MG TABLET PO ×2 (04:11→17:36)
[2020-04-16] MEDS: Isosorbide Mononitrate 30 MG Tablet PO (04:11)
[2020-04-16] MEDS: Tamsulosin HCl 0.4 MG Capsule 0.8 MG PO (04:11)
[2020-04-16] MEDS: Citalopram 40 MG TABLET 60 MG PO (04:11)
[2020-04-16] MEDS: Losartan Potassium 100 MG Tablet PO (04:12)
[2020-04-16 06:35] LABS: Bedside Glucose 144 mg/dL (70-110)
[2020-04-16 10:59] VITALS: O2SAT 94
[2020-04-16 11:15] LABS: Bedside Glucose 175 mg/dL (70-110)
[2020-04-16] MEDS: Ferrous Sulfate 325 MG Tablet PO ×2 (12:40→17:36)
[2020-04-16 13:24] VITALS: BP 127/61; PULSE 64; RESP 16; TEMP 36.5; O2SAT 93
[2020-04-16] MEDS: Sucralfate 1 GM Tablet PO (15:34)
[2020-04-16 16:35] LABS: Bedside Glucose 185 mg/dL (70-110)
--- NOTE | 2020-04-16 17:30 | NURSING ---
Number for spouse, Rhina, is not in service
[2020-04-16 19:15] VITALS: PULSE 59; RESP 18; O2SAT 94
[2020-04-16] MEDS: Budesonide Respules 0.5 MG/2 ML AMPUL.NEB. INHALATION (19:15)
[2020-04-16] MEDS: Atorvastatin Calcium 40 MG Tablet PO (19:43)
[2020-04-16 21:36] LABS: Bedside Glucose 196 mg/dL (70-110)
[2020-04-17] MEDS: Losartan Potassium 100 MG Tablet PO (05:49)
[2020-04-17] MEDS: Metoprolol(XL)Succ 25 MG Tablet 12.5 MG PO (05:49)
[2020-04-17] MEDS: Tamsulosin HCl 0.4 MG Capsule 0.8 MG PO (05:49)
[2020-04-17] MEDS: NIFEdipine 60 MG Tablet PO (05:49)
[2020-04-17] MEDS: Citalopram 40 MG TABLET 60 MG PO (05:49)
[2020-04-17] MEDS: Isosorbide Mononitrate 30 MG Tablet PO (05:49)
[2020-04-17] MEDS: Fluticasone 0.05% 1 SPRAY NASAL.SRY NASAL (05:50)
[2020-04-17] MEDS: Menthol/Lanolin/Calamine/Znox 113 GM Tube 1 APPLIC TOPICAL ×2 (05:50→18:04)
[2020-04-17] MEDS: APIXABAN 5 MG TABLET PO ×2 (05:50→18:04)
[2020-04-17] MEDS: Nystatin Powder 15gm Bottle 1 APPLIC TOPICAL ×2 (05:51→20:47)
[2020-04-17 06:21] LABS: Bedside Glucose 120 mg/dL (70-110)
[2020-04-17 06:40] VITALS: PULSE 66; RESP 26; O2SAT 94
[2020-04-17] MEDS: Budesonide Respules 0.5 MG/2 ML AMPUL.NEB. INHALATION ×2 (06:40→19:45)
[2020-04-17 10:00] VITALS: PULSE 56; RESP 18; O2SAT 97
[2020-04-17 11:15] LABS: Bedside Glucose 152 mg/dL (70-110)
[2020-04-17] MEDS: Ferrous Sulfate 325 MG Tablet PO ×2 (11:16→18:03)
[2020-04-17 14:22] VITALS: BP 151/79; PULSE 74; RESP 20; TEMP 36.1; O2SAT 96
--- NOTE | 2020-04-17 15:51 | NURSING ---
Resident notified of staff member testing positive for COVID 19. Spouse, Rhina's phone number is not a working number.
[2020-04-17 17:06] LABS: Bedside Glucose 193 mg/dL (70-110)
[2020-04-17 19:45] VITALS: PULSE 68; RESP 20
[2020-04-17] MEDS: Atorvastatin Calcium 40 MG Tablet PO (20:48)
--- NOTE | 2020-04-17 20:50 | NURSING ---
Sitting up in chair, alert and oriented x3, pleasant, pt takes med in applesauce without issues, honey thick ice water given, oral care given after. States he wants to stay up in chair for awhile, watching tv.
[2020-04-17 21:30] LABS: Bedside Glucose 195 mg/dL (70-110)
[2020-04-18 06:09] VITALS: BP 153/69; PULSE 61; RESP 19; TEMP 36.6; O2SAT 96
[2020-04-18] MEDS: Citalopram 40 MG TABLET 60 MG PO (06:11)
[2020-04-18 06:12] VITALS: BP 153/68; PULSE 61
[2020-04-18] MEDS: Metoprolol(XL)Succ 25 MG Tablet 12.5 MG PO (06:12)
[2020-04-18] MEDS: Tamsulosin HCl 0.4 MG Capsule 0.8 MG PO (06:12)
[2020-04-18] MEDS: APIXABAN 5 MG TABLET PO ×2 (06:13→18:38)
[2020-04-18] MEDS: Isosorbide Mononitrate 30 MG Tablet PO (06:13)
[2020-04-18] MEDS: NIFEdipine 60 MG Tablet PO (06:13)
[2020-04-18] MEDS: Losartan Potassium 100 MG Tablet PO (06:13)
[2020-04-18] MEDS: Fluticasone 0.05% 1 SPRAY NASAL.SRY NASAL (06:13)
[2020-04-18] MEDS: Nystatin Powder 15gm Bottle 1 APPLIC TOPICAL ×2 (06:15→18:39)
[2020-04-18] MEDS: Menthol/Lanolin/Calamine/Znox 113 GM Tube 1 APPLIC TOPICAL ×2 (06:16→18:39)
[2020-04-18 06:50] LABS: Bedside Glucose 119 mg/dL (70-110)
[2020-04-18 07:05] VITALS: PULSE 58; RESP 15; O2SAT 96
[2020-04-18] MEDS: Budesonide Respules 0.5 MG/2 ML AMPUL.NEB. INHALATION ×2 (07:05→19:25)
[2020-04-18] MEDS: Ferrous Sulfate 325 MG Tablet PO ×2 (11:29→18:38)
[2020-04-18 11:50] LABS: Bedside Glucose 160 mg/dL (70-110)
[2020-04-18 14:26] VITALS: BP 156/69; PULSE 49; RESP 16; TEMP 37; O2SAT 97
--- NOTE | 2020-04-18 16:22 | CASEMGMT ---
Social Work IDT met with patient, and daughter via conference call for care plan meeting. Discussed patient's progress in therapy. Pt is CGA for transfers and ambulating 80 ft with FWW at CGA, Chloe for grooming, Chloe for UE bathing, modA for LE bathing, CGA for UE dressing, max for LE dressing, CGA for toileting tasks. Pt is on a mechanical soft, honey thick diet, FFWP. ST working on oral exercises, strengthening, expressive and receptive languages. Pt having a slow response time and slow to process, and word finding issues. Pt is out of isolation 04/25. Explained Medicare benefit. the goal is for pt to return home with close to PLOF. Will continue to follow. MOSHE YoungbloodW
[2020-04-18 16:56] LABS: Bedside Glucose 161 mg/dL (70-110)
[2020-04-18] MEDS: Senna Tablet 1 TABLET PO (18:38)
[2020-04-18 19:25] VITALS: PULSE 60; RESP 18
[2020-04-18] MEDS: Atorvastatin Calcium 40 MG Tablet PO (20:12)
[2020-04-18 21:16] LABS: Bedside Glucose 160 mg/dL (70-110)
[2020-04-19 05:00] VITALS: BP 152/71; PULSE 65; RESP 18; TEMP 36.5; O2SAT 96
[2020-04-19 05:55] LABS: Absolute Lymphocyte Count 1.02 X10^3/uL (0.83-4.51); Absolute Neutrophil Count 4.9 X10^3/uL (2.0-7.7); Basophil# 0.03 X10^3/uL; Basophil% 0.4 % (0-1); Eosinophil# 0.21 X10^3/uL; Eosinophils% 3.1 % (0-5); Lymphocyte # 1.02 X10^3/ul (4.0); Mean Corp Hgb Conc 31.6 g/dL (32-36); Mean Corpuscular Hgb 28.8 pg (27.0-32.0); Mean Corpuscular Volume 91.3 fL (80-94); Monocyte# 0.57 X10^3/uL; Monocyte% 8.4 % (0-10); NRBC Flagged by Analyzer 0 % (0-5); Neutrophil # 4.93 X10^3/uL (2.7-7.7); Neutrophil % 72.8 % (47-70); Platelet Count 221 K/mm3 (150-450); RBC Distribution Width CV 12.8 % (11.6-14.6); RBC Distribution Width SD 41.9 fl (35.1-43.9); Red Blood Count 4.16 M/mm3 (4.6-6.2); White Blood Count 6.8 K/mm3 (4.4-11.0)
[2020-04-19 06:28] LABS: Anion Gap 4 (5-15); BUN 31 mg/dL (7-18); BUN/Creat Ratio 16.6 RATIO (10-20); Calcium,Total 8.3 mg/dL (8.5-10.1); Chloride 112 mmol/L (98-107); Creatinine, Serum 1.87 mg/dL (0.70-1.30); EST Glomerular Filtration Rate 37 mL/min (>60); Est Glom Filt Rate - Afr Amer 45 mL/min (>60); Estimated Creatinine Clearance 35.16 ml/min; Glucose 126 mg/dL (74-106); Sodium Level 141 mmol/L (136-145)
[2020-04-19] MEDS: Citalopram 40 MG TABLET 60 MG PO (06:29)
[2020-04-19] MEDS: Tamsulosin HCl 0.4 MG Capsule 0.8 MG PO (06:29)
[2020-04-19] MEDS: APIXABAN 5 MG TABLET PO ×2 (06:30→18:07)
[2020-04-19 06:31] VITALS: BP 152/71; PULSE 65
[2020-04-19] MEDS: Metoprolol(XL)Succ 25 MG Tablet 12.5 MG PO (06:31)
[2020-04-19] MEDS: NIFEdipine 60 MG Tablet PO (06:31)
[2020-04-19] MEDS: Losartan Potassium 100 MG Tablet PO (06:31)
[2020-04-19] MEDS: Isosorbide Mononitrate 30 MG Tablet PO (06:31)
[2020-04-19] MEDS: Senna Tablet 1 TABLET PO ×2 (06:31→18:08)
[2020-04-19] MEDS: Menthol/Lanolin/Calamine/Znox 113 GM Tube 1 APPLIC TOPICAL ×2 (06:32→18:08)
[2020-04-19] MEDS: Fluticasone 0.05% 1 SPRAY NASAL.SRY NASAL (06:33)
[2020-04-19] MEDS: Nystatin Powder 15gm Bottle 1 APPLIC TOPICAL ×2 (06:34→18:07)
[2020-04-19 06:35] LABS: Bedside Glucose 124 mg/dL (70-110)
[2020-04-19 06:50] VITALS: PULSE 64; RESP 16
[2020-04-19] MEDS: Budesonide Respules 0.5 MG/2 ML AMPUL.NEB. INHALATION (06:50)
[2020-04-19 10:00] VITALS: PULSE 61; RESP 18; O2SAT 96
[2020-04-19] MEDS: Tuberculin,Purif.prot.deriv. 50 TU/ML Vial 5 ML ID (10:21)
[2020-04-19] MEDS: Ferrous Sulfate 325 MG Tablet PO ×2 (10:59→18:08)
[2020-04-19 11:20] LABS: Bedside Glucose 137 mg/dL (70-110)
[2020-04-19 13:57] VITALS: BP 130/67; PULSE 62; RESP 17; TEMP 36.4; O2SAT 95
[2020-04-19 16:36] LABS: Bedside Glucose 189 mg/dL (70-110)
[2020-04-19] MEDS: Atorvastatin Calcium 40 MG Tablet PO (20:50)
[2020-04-19] MEDS: Sucralfate 1 GM Tablet PO (20:57)
--- NOTE | 2020-04-19 21:00 | NURSING ---
Pt sitting up in bed watching tv, c/o stomach feeling bloated and having gas, denies pain or cramps. Given carafate per request.
[2020-04-19 21:30] LABS: Bedside Glucose 181 mg/dL (70-110)
[2020-04-20 05:39] VITALS: BP 162/73; PULSE 68; RESP 18; TEMP 36.4; O2SAT 94
[2020-04-20] MEDS: Menthol/Lanolin/Calamine/Znox 113 GM Tube 1 APPLIC TOPICAL ×2 (06:21→17:48)
[2020-04-20] MEDS: Polyethylene Glycol 3350 17 GM PACKET PO (06:21)
[2020-04-20] MEDS: Nystatin Powder 15gm Bottle 1 APPLIC TOPICAL ×2 (06:21→17:48)
[2020-04-20 06:22] VITALS: BP 162/73; PULSE 68
[2020-04-20] MEDS: Citalopram 40 MG TABLET 60 MG PO (06:22)
[2020-04-20] MEDS: Metoprolol(XL)Succ 25 MG Tablet 12.5 MG PO (06:22)
[2020-04-20] MEDS: Isosorbide Mononitrate 30 MG Tablet PO (06:22)
[2020-04-20] MEDS: Tamsulosin HCl 0.4 MG Capsule 0.8 MG PO (06:22)
[2020-04-20] MEDS: NIFEdipine 60 MG Tablet PO (06:23)
[2020-04-20] MEDS: APIXABAN 5 MG TABLET PO ×2 (06:23→17:47)
[2020-04-20] MEDS: Fluticasone 0.05% 1 SPRAY NASAL.SRY NASAL (06:23)
[2020-04-20] MEDS: Senna Tablet 1 TABLET PO (06:23)
[2020-04-20] MEDS: Losartan Potassium 100 MG Tablet PO (06:23)
[2020-04-20 06:40] LABS: Bedside Glucose 121 mg/dL (70-110)
[2020-04-20 07:55] VITALS: PULSE 57; RESP 16
[2020-04-20] MEDS: Budesonide Respules 0.5 MG/2 ML AMPUL.NEB. INHALATION ×2 (07:55→18:28)
[2020-04-20 11:00] LABS: Bedside Glucose 142 mg/dL (70-110)
[2020-04-20] MEDS: Ferrous Sulfate 325 MG Tablet PO ×2 (11:48→17:47)
[2020-04-20 13:38] VITALS: BP 140/66; PULSE 59; RESP 18; TEMP 36.6; O2SAT 94
[2020-04-20 16:50] LABS: Bedside Glucose 127 mg/dL (70-110)
[2020-04-20 18:28] VITALS: PULSE 59; RESP 18
[2020-04-20] MEDS: Atorvastatin Calcium 40 MG Tablet PO (20:15)
[2020-04-20 21:31] LABS: Bedside Glucose 165 mg/dL (70-110)
[2020-04-21] MEDS: Citalopram 40 MG TABLET 60 MG PO (04:35)
[2020-04-21] MEDS: Isosorbide Mononitrate 30 MG Tablet PO (04:36)
[2020-04-21] MEDS: Senna Tablet 1 TABLET PO ×2 (04:36→16:48)
[2020-04-21] MEDS: Tamsulosin HCl 0.4 MG Capsule 0.8 MG PO (04:36)
[2020-04-21 04:37] VITALS: BP 141/60; PULSE 64
[2020-04-21] MEDS: Losartan Potassium 100 MG Tablet PO (04:37)
[2020-04-21] MEDS: NIFEdipine 60 MG Tablet PO (04:37)
[2020-04-21] MEDS: APIXABAN 5 MG TABLET PO ×2 (04:37→16:48)
[2020-04-21] MEDS: Metoprolol(XL)Succ 25 MG Tablet 12.5 MG PO (04:37)
[2020-04-21] MEDS: Fluticasone 0.05% 1 SPRAY NASAL.SRY NASAL (04:38)
[2020-04-21] MEDS: Nystatin Powder 15gm Bottle 1 APPLIC TOPICAL ×2 (04:38→21:34)
[2020-04-21] MEDS: Menthol/Lanolin/Calamine/Znox 113 GM Tube 1 APPLIC TOPICAL ×2 (04:40→16:49)
[2020-04-21 04:41] VITALS: BP 141/60; PULSE 64; RESP 19; TEMP 36.6; O2SAT 95
[2020-04-21 06:31] LABS: Bedside Glucose 100 mg/dL (70-110)
[2020-04-21 07:42] VITALS: PULSE 63; RESP 21
[2020-04-21] MEDS: Budesonide Respules 0.5 MG/2 ML AMPUL.NEB. INHALATION ×2 (07:42→19:00)
[2020-04-21 11:15] LABS: Bedside Glucose 208 mg/dL (70-110)
[2020-04-21] MEDS: Ferrous Sulfate 325 MG Tablet PO ×2 (11:20→16:48)
[2020-04-21 11:36] VITALS: PULSE 59; RESP 18; O2SAT 95
[2020-04-21 13:49] VITALS: BP 123/56; PULSE 50; RESP 16; TEMP 36.4; O2SAT 96
--- NOTE | 2020-04-21 15:24 | NURSING ---
Attempted to call family with update no answer and no voicemail set up.
[2020-04-21 16:40] LABS: Bedside Glucose 161 mg/dL (70-110)
[2020-04-21 19:00] VITALS: PULSE 55; RESP 18
[2020-04-21] MEDS: Atorvastatin Calcium 40 MG Tablet PO (21:32)
[2020-04-21 21:45] LABS: Bedside Glucose 180 mg/dL (70-110)
[2020-04-22 05:00] VITALS: BP 154/65; PULSE 60; RESP 18; TEMP 36.5; O2SAT 96
[2020-04-22 06:20] LABS: Bedside Glucose 133 mg/dL (70-110)
[2020-04-22 06:36] VITALS: BP 154/65; PULSE 60
[2020-04-22] MEDS: Metoprolol(XL)Succ 25 MG Tablet 12.5 MG PO (06:36)
[2020-04-22] MEDS: Losartan Potassium 100 MG Tablet PO (06:37)
[2020-04-22] MEDS: Senna Tablet 1 TABLET PO ×2 (06:37→17:45)
[2020-04-22] MEDS: Tamsulosin HCl 0.4 MG Capsule 0.8 MG PO (06:37)
[2020-04-22] MEDS: NIFEdipine 60 MG Tablet PO (06:37)
[2020-04-22] MEDS: Citalopram 40 MG TABLET 60 MG PO (06:38)
[2020-04-22] MEDS: Isosorbide Mononitrate 30 MG Tablet PO (06:38)
[2020-04-22] MEDS: APIXABAN 5 MG TABLET PO ×2 (06:39→17:45)
[2020-04-22] MEDS: Menthol/Lanolin/Calamine/Znox 113 GM Tube 1 APPLIC TOPICAL ×2 (06:40→17:50)
[2020-04-22] MEDS: Nystatin Powder 15gm Bottle 1 APPLIC TOPICAL ×2 (06:40→20:08)
[2020-04-22] MEDS: Budesonide Respules 0.5 MG/2 ML AMPUL.NEB. INHALATION ×2 (07:05→19:10)
[2020-04-22 07:51] VITALS: PULSE 56; RESP 18
--- NOTE | 2020-04-22 09:17 | NURSING ---
pt c/o gas/bloating. dr zee updated, new order for simethicone TID
[2020-04-22 11:26] LABS: Bedside Glucose 229 mg/dL (70-110)
[2020-04-22] MEDS: Ferrous Sulfate 325 MG Tablet PO ×2 (12:26→17:45)
[2020-04-22 13:47] VITALS: BP 122/50; PULSE 56; RESP 17; TEMP 36.1; O2SAT 96
[2020-04-22 16:35] LABS: Bedside Glucose 166 mg/dL (70-110)
--- NOTE | 2020-04-22 17:55 | RAD_ITS ---
STUDY: X-RAY - ABDOMEN/PELVIS REASON FOR EXAM: Male, 79 years old. pain, bloating TECHNIQUE: Two AP supine views of the abdomen and pelvis. COMPARISON: None. FINDINGS: Normal visualized lung bases. Multiple dilated small bowel loops are present measuring up to 5.9 cm in diameter. Differential includes ileus, enteritis, and mechanical obstruction. There is no demonstrated free abdominal air. The visualized liver, spleen and kidneys are grossly normal in size and morphology. Normal soft tissue structures. Normal visualized osseous structures. RAD/Abdomen Single View IMPRESSION: Multiple dilated small bowel loops are present measuring up to 5.9 cm in diameter. Differential includes ileus, enteritis, and mechanical obstruction. Electronically Signed: Santiago Phelan MD at 19:20 EST Tel , Service support ,
--- NOTE | 2020-04-22 18:05 | NURSING ---
pt c/o abd discomfort/bloating & gas even after having simethicone. c/o loose stools. hyperactive BS, firm tender upper quads & soft lower quads Dr zee notified, new order kub & x1 dose mylanta
[2020-04-22] MEDS: Mag Hydrox/Al Hydrox/Simeth 30 ML UDC PO (18:15)
[2020-04-22 19:10] VITALS: PULSE 55; RESP 18
--- NOTE | 2020-04-22 20:20 | NURSING ---
2015- Dr. Lao consulted for possible ileus per KUB. Upon assessment tonight, pt c/o diffuse pain throughout abdomen. XL BM documented today. Pt states he ate lunch but did not eat dinner. Sipping water. Normoactive bowel sounds to all 4 quadrants. Patient states he is passing gas and recently had a big one (flatus). Received new orders for protonix IV x1 and Dr. Lao to see patient tomorrow. Patient updated on POC.
[2020-04-22] MEDS: Sucralfate 1 GM Tablet PO (20:28)
[2020-04-22] MEDS: Atorvastatin Calcium 40 MG Tablet PO (20:28)
[2020-04-22 21:26] LABS: Bedside Glucose 164 mg/dL (70-110)
[2020-04-23 04:07] VITALS: BP 149/68; PULSE 62; RESP 18; TEMP 36.7; O2SAT 96
[2020-04-23] MEDS: Menthol/Lanolin/Calamine/Znox 113 GM Tube 1 APPLIC TOPICAL ×2 (04:07→16:34)
[2020-04-23 04:08] VITALS: BP 149/68; PULSE 62
[2020-04-23] MEDS: Metoprolol(XL)Succ 25 MG Tablet 12.5 MG PO (04:08)
[2020-04-23] MEDS: Nystatin Powder 15gm Bottle 1 APPLIC TOPICAL ×2 (04:08→21:19)
[2020-04-23] MEDS: Isosorbide Mononitrate 30 MG Tablet PO (04:09)
[2020-04-23] MEDS: Tamsulosin HCl 0.4 MG Capsule 0.8 MG PO (04:09)
[2020-04-23] MEDS: Senna Tablet 1 TABLET PO (04:09)
[2020-04-23] MEDS: NIFEdipine 60 MG Tablet PO (04:09)
[2020-04-23] MEDS: Losartan Potassium 100 MG Tablet PO (04:10)
[2020-04-23] MEDS: Citalopram 40 MG TABLET 60 MG PO (04:10)
[2020-04-23] MEDS: APIXABAN 5 MG TABLET PO ×2 (04:10→16:39)
[2020-04-23] MEDS: Fluticasone 0.05% 1 SPRAY NASAL.SRY NASAL (04:11)
--- NOTE | 2020-04-23 04:14 | NURSING ---
Pt found sitting on side of bed, had not called out, states he was up in br and had a large loose bm, explained to pt need for him to use call light so we can walk with him, pt states I had to go too bad. assisted with zachary care, raven and nystatin powder applied, assisted back to bed, bed alarm placed, cpap filled with water.
[2020-04-23 06:35] LABS: Bedside Glucose 107 mg/dL (70-110)
[2020-04-23 06:56] VITALS: PULSE 66; RESP 20; O2SAT 95
[2020-04-23] MEDS: Budesonide Respules 0.5 MG/2 ML AMPUL.NEB. INHALATION ×2 (06:57→19:40)
--- NOTE | 2020-04-23 08:04 | CON.PCM_ITS ---
Reason for Consult Date of Consultation: 04/23/20 History of Present Illness: The patient is a 79 year old M currently is in the TCU status post CVA. Consult due to abdominal pain. Patient complained of some abdominal pain yesterday and points to the mid abdomen. Denies any abdominal pain today. Patient did get a KUB yesterday which was read as possible ileus however patient has been passing gas and having bowel movements yesterday and today. Patient denies any nausea or vomiting. Patient does have past medical history for the duodenal ulcer as well as GERD and was previously on Protonix; however currently is home list does not appear to have Protonix only Carafate as needed. Did give patient Protonix 40 mg IV x1 yesterday. Patient states he has normal appetite and no abdominal pain currently. Past Medical History Past Medical History (Chronic Problems): Chronic Problems (Last Updated 04/02/20 @ 17:[address] Love Christine MD) Diabetes mellitus (Chronic) Pulmonary embolism (Chronic) Hypertension (Chronic) Atrial fibrillation (Chronic) Depression (Chronic) BPH (benign prostatic hyperplasia) (Chronic) Neuropathic pain (Chronic) Stage III chronic kidney disease (Chronic) Type 2 diabetes mellitus (Chronic) Paroxysmal atrial fibrillation (Chronic) Right bundle branch block (RBBB) (Chronic) History of pulmonary embolism (Chronic) Essential (primary) hypertension (Chronic) History of loop recorder (Chronic 03/2018) Bradycardia (Chronic) Thromboembolism (Chronic) HLD (hyperlipidemia) (Chronic) Bifascicular bundle branch block (Chronic) Medical History: Medical History (Last Updated 04/02/20 @ 17:[address] Love Christine MD) Right bundle branch block (RBBB) (Chronic) I45.10 History of pulmonary embolism (Chronic) Z86.711 Essential (primary) hypertension (Chronic) I10 Bradycardia (Chronic) R00.1 Thromboembolism (Chronic) I74.9 HLD (hyperlipidemia) (Chronic) E78.5 Bifascicular bundle branch block (Chronic) I45.2 BPH (benign prostatic hyperplasia) N40.0 COPD (chronic obstructive pulmonary disease) J44.9 Chronic renal failure, stage 3 (moderate) N18.3 Colon polyps Duodenal ulcer K26.9 Family history of colon cancer Z80.0 History of depression Z86.59 History of other venous thrombosis and embolism Z86.718 Noncompliance Z91.19 with CPAP and follow up and with diet NILO (obstructive sleep apnea) G47.[address] 18/12 cm of water Super obesity E66.9 Type II diabetes mellitus, uncontrolled E11.65 MARLON (acute kidney injury) N17.9 Acute blood loss anemia D62 Hypotension I95.9 Allergies MARGIE Inhibitors Allergy (Unknown, Verified 04/02/20 15:01) edema cefepime Allergy (Verified 04/02/20 15:01) weakness and falling WEAKNESS & FALLING ipodate [Ipodate] Allergy (Verified 04/02/20 15:01) Shortness of breath levofloxacin [Levofloxacin] Allergy (Verified 04/02/20 15:) Anaphylaxis lisinopril Allergy (Verified 04/02/20 15:) Shortness of breath ofloxacin Allergy (Verified 04/02/20 15:) Other Quinolones Allergy (Verified 04/02/20 15:01) Anaphylaxis Home Medications: Ambulatory Orders Medication Instructions Recorded Citalopram [Celexa] 40 mg PO DAILY 05/29/15 Tamsulosin HCl [Flomax] 0.8 mg PO DAILY 07/08/16 Gabapentin [Neurontin] 300 - 600 mg PO TID PRN PRN 03/11/18 Isosorbide Mononitrate [Imdur] 30 mg PO DAILY 03/12/18 Insulin Lispro [Humalog KwikPen] 20 unit SQ TIDCM 09/16/18 metoprolol succinate 25 mg 12.5 mg PO DAILY tab 09/23/18 tablet,extended release 24 hr Atorvastatin Calcium [Lipitor] 40 mg PO DAILY 04/02/20 Insulin Glargine,Hum.rec.anlog 20 unit SQ BID 04/02/20 [Lantus Solostar] Losartan Potassium [Cozaar] 100 mg PO DAILY 04/02/20 Acetaminophen [Acetaminophen 8 650 mg PO Q6H PRN PRN 04/11/20 Hour] Albuterol Inhaler [Ventolin Hfa 1 puff INHALATION Q6H PRN PRN 04/11/20 (SP)] Apixaban [Eliquis] 5 mg PO BID 04/11/20 Ferrous Sulfate 325 mg PO BID 04/11/20 Fluticasone 0.05% [Flonase Nasal 50 mcg NASAL DAILY 04/11/20 [place]] Mineral Oil/Petrolatum,White 1 applic TOPICAL BID PRN PRN 04/11/20 [Eucerin] Mineral Oil/Petrolatum,White 1 applic TOPICAL BID PRN PRN 04/11/20 [Eucerin] Mometason Formoterol 100 mcg INHALATION Q12H 04/11/20 NIFEdipine [Procardia Xl] 60 mg PO DAILY 04/11/20 Nitroglycerin 0.4 mg SL Q5M PRN 04/11/20 Optivar 0.05 % EACH EYE BID 04/11/20 Polyethylene Glycol 3350 [Miralax] 17 gm PO DAILY 04/11/20 Senna [Senokot] 1 tab PO DAILY 04/11/20 Sucralfate [Carafate] 1 gm PO 4X/DAY PRN 04/11/20 Surgical History: Surgical History (Last Reviewed 04/02/20 @ 17:[address] Love Christine MD) History of loop recorder (Chronic) Onset Date: 03/2018 Z98.890 History of esophagogastroduodenoscopy (EGD) Z98.890 10/24/18,10/29/18 History of left heart catheterization Onset Date: 07/11/19 Z98.890 Surgical History: - - Loop recorder, EGD, left heart catheterization. Psychiatric History: Depression Lives: Spouse/ Significant Other Smoking Status: Former smoker Tobacco Use: Non-smoker Alcohol: None Drugs: None - *Family History Maternal Family History: Family History (Last Reviewed 04/02/20 @ 17:[address] Love Christine MD) Father Colon cancer Mother Cancer Sister CAD (coronary artery disease) History Items: Cancer Paternal Family History: Family History (Last Reviewed 04/02/20 @ 17:[address] Love Christine MD) Father Colon cancer Mother Cancer Sister CAD (coronary artery disease) History Items: Cancer Offspring Family History: Family History (Last Reviewed 04/02/20 @ 17:[address] Love Christine MD) Father Colon cancer Mother Cancer Sister CAD (coronary artery disease) History Items: - Review of Systems Constitutional: Denies: Anorexia Eyes: Denies: Blurred vision Cardiovascular: Denies: Chest Pain Respiratory: Denies: Cough Gastrointestinal: Denies: Abdominal Pain Genitourinary: Denies: Dysuria Skin: Denies: Jaundice Psychiatric: Denies: Anxiety Hematologic/ Lymphatic: Denies: Easy Bleeding Patient Problems: Active and Suspected Problems (Last Updated 04/02/20 @ 17:[address] Love Christien MD) Debility (Acute) Change in mental status (Acute) Stroke (Acute) Dysarthria (Acute) Right hemiparesis (Acute) Coronary artery disease (Acute) - Physical Exam Vitals/I&O's: Vital Signs Temp Pulse Resp BP Pulse Ox 98.1 F 66 20 H 149/68 H 95 04/23/20 04:07 04/23/20 06:56 04/23/20 06:56 04/23/20 04:08 04/23/20 06:56 Oxygen Flow Rate (L/min) 3 Oxygen Delivery Method Room Air Weight: 348 lb Body Mass Index (BMI) 47.1 Finger Stick Blood Glucose 221 Intake and Output for Last 24 Hours 04/22/20 04/22/20 04/23/20 00:59 23:59 23:59 Intake Total Balance General: Alert, Oriented x3, Cooperative, No apparent distress HEENT: Atraumatic Lungs: Normal air movement Cardiovascular: Regular rate Abdomen: Soft, Non Tender, Non-Distended, Obese Extremities: No clubbing, No cyanosis Neurological: Cranial nerves II-XII grossly intact Psych/Mental Status: Normal Affect Laboratory Results 04/22/20 11:08: POC Glucose 229 H 04/22/20 16:24: POC Glucose 166 H 04/22/20 21:16: POC Glucose 164 H 04/23/20 06:18: POC Glucose 107 Current Medications Acetaminophen (Acetaminophen 500 Mg Tablet) 1,000 mg PO Q6H PRN PRN PRN Reason: Pain Score 1-10 Albuterol Sulfate (Albuterol 2.5 Mg/3 Ml Vial.Neb.) 2.5 mg INHALATION Q6H PRN PRN PRN Reason: SOB or Wheezing Last Admin: 04/13/20 19:16 Dose: 2.5 mg Documented by: Apixaban (Apixaban 5 Mg Tablet) 5 mg PO Q12 FERNANDO Last Admin: 04/23/20 04:10 Dose: 5 mg Documented by: Atorvastatin Calcium (Atorvastatin Calcium 40 Mg Tablet) 40 mg PO QHS FERNANDO Last Admin: 04/22/20 20:28 Dose: 40 mg Documented by: Bisacodyl (Bisacodyl 10 Mg Suppository) 10 mg RECTAL DAILY PRN PRN Reason: Constipation Budesonide (Budesonide Respules 0.5 Mg/2 Ml Ampul.Neb.) 0.5 mg INHALATION Q12H.RT [facility] Last Admin: 04/23/20 06:57 Dose: 0.5 mg Documented by: Calamine/Phenol (Menthol/Lanolin/Calamine/Znox 113 Gm Tube) 1 applic TOPICAL BID [facility]; Protocol Last Admin: 04/23/20 04:07 Dose: 1 applicatio Documented by: Citalopram Hydrobromide (Citalopram 40 Mg Tablet) 60 mg PO DAILY [facility] Last Admin: 04/23/20 04:10 Dose: 60 mg Documented by: Ferrous Sulfate (Ferrous Sulfate 325 Mg Tablet) 325 mg PO 1200,1700 [facility] Last Admin: 04/22/20 17:45 Dose: 325 mg Documented by: Fluticasone Propionate (Fluticasone 0.05% 1 [place] Nasal.Sry) 1 spray NASAL DAILY [facility] Last Admin: 04/23/20 04:11 Dose: 1 spray Documented by: Gabapentin (Gabapentin 300 Mg Capsule) 300 - 600 mg PO TID PRN PRN PRN Reason: nerve pain Sodium Chloride () 250 mls @ 15 mls/hr IV .[id number] PRN PRN Reason: Saline Flush Insulin Glargine (Insulin Glargine 100 Units/Ml Pen) 20 units SC BID [facility] Last Admin: 04/23/20 06:44 Dose: 20 units Documented by: Isosorbide Mononitrate (Isosorbide Mononitrate 30 Mg Tablet) 30 mg PO DAILY [facility] Last Admin: 04/23/20 04:09 Dose: 30 mg Documented by: Losartan Potassium (Losartan Potassium 100 Mg Tablet) 100 mg PO DAILY [facility] Last Admin: 04/23/20 04:10 Dose: 100 mg Documented by: Magnesium Hydroxide (Magnesium Hydroxide 30 Ml Udc) 30 ml PO DAILY PRN PRN Reason: Constipation Last Admin: 04/11/20 23:10 Dose: 30 ml Documented by: Metoprolol Succinate (Metoprolol(Xl)Succ 25 Mg Tablet) 12.5 mg PO DAILY [facility] Last Admin: 04/23/20 04:08 Dose: 12.5 mg Documented by: Multi-Ingredient Cream (Mineral Oil/Petrolatum,White Jar) 1 applic TOPICAL BID [facility]; Protocol Last Admin: 04/23/20 04:13 Dose: 1 applicatio Documented by: Nifedipine (Nifedipine 60 Mg Tablet) 60 mg PO DAILY [facility] Last Admin: 04/23/20 04:09 Dose: 60 mg Documented by: Nitroglycerin (Nitroglycerin (Inpatient Use) 0.4 Mg Tab.Subl) 0.4 mg SUBLINGUAL Q5M PRN PRN Reason: CARDIAC/CHEST PAIN Nystatin (Nystatin Powder 15gm Bottle) 1 applic TOPICAL 0600,2200 [facility]; Protocol Last Admin: 04/23/20 04:08 Dose: 1 applicatio Documented by: Polyethylene Glycol (Polyethylene Glycol 3350 17 Gm Packet) 17 gm PO DAILY [facility] Last Admin: 04/23/20 04:13 Dose: Not Given Documented by: Senna (Senna Tablet) 1 tablet PO BID [facility] Last Admin: 04/23/20 04:09 Dose: 1 tablet Documented by: Simethicone (Simethicone 80 Mg Tablet) 80 mg PO TIDPC [facility] Last Admin: 04/22/20 17:45 Dose: 80 mg Documented by: Sucralfate (Sucralfate 1 Gm Tablet) 1 gm PO 1HR_ACHS PRN PRN Reason: Stomach Last Admin: 04/22/20 20:28 Dose: 1 gm Documented by: Tamsulosin HCl (Tamsulosin Hcl 0.4 Mg Capsule) 0.8 mg PO DAILY [facility] Last Admin: 04/23/20 04:09 Dose: 0.8 mg Documented by: Assessment/Plan All Active Problems (Last Updated 04/02/20 @ 17:[address] Love Christine MD) Debility (Acute) Change in mental status (Acute) Stroke (Acute) Dysarthria (Acute) Right hemiparesis (Acute) Coronary artery disease (Acute) 79-year-old male admitted to TCU due to CVA, consult for abdominal pain. Patient currently denies any abdominal pain patient does have a history of a duodenal ulcer was previously on Protonix currently his medication list does not list Protonix does list Carafate. Patient is unable to tell me why he is no longer on Protonix. Did give him 1 dose of IV Protonix last night. He states he had abdominal pain yesterday denies any pain this morning. Patient's KUB was read as possible ileus however patient has been passing gas and having bowel function denies any nausea or vomiting. We will continue patient's Protonix 40 mg p.o. daily.No plans for any surgical intervention. Abbie Gurrola M.D. Pager: [phone] [facility] [address] [place] [address], Outpatient [place], [address] [place] [address] Office: [phone] Inpatient E&M: 49045 Init Hosp L2
[2020-04-23 08:36] VITALS: PULSE 62; RESP 18; O2SAT 96
--- NOTE | 2020-04-23 09:14 | NURSING ---
Dr. Gurrola was up this morning to see pt. about possible ileus. Ordered 40 mg of protonix x1 daily.
[2020-04-23 10:51] LABS: Bedside Glucose 182 mg/dL (70-110)
[2020-04-23] MEDS: Ferrous Sulfate 325 MG Tablet PO ×2 (12:24→16:39)
[2020-04-23 13:21] VITALS: BP 131/71; PULSE 67; RESP 18; TEMP 36.4; O2SAT 95
[2020-04-23 16:25] LABS: Bedside Glucose 142 mg/dL (70-110)
[2020-04-23 19:40] VITALS: PULSE 62; RESP 18; O2SAT 94
[2020-04-23] MEDS: Atorvastatin Calcium 40 MG Tablet PO (21:16)
[2020-04-23] MEDS: Sucralfate 1 GM Tablet PO (21:16)
[2020-04-23 21:55] LABS: Bedside Glucose 165 mg/dL (70-110)
[2020-04-24 03:20] VITALS: BP 138/61; PULSE 65; RESP 20; TEMP 36.4; O2SAT 97
[2020-04-24 05:32] VITALS: PULSE 65
[2020-04-24] MEDS: Metoprolol(XL)Succ 25 MG Tablet 12.5 MG PO (05:32)
[2020-04-24] MEDS: Fluticasone 0.05% 1 SPRAY NASAL.SRY NASAL (05:32)
[2020-04-24] MEDS: Citalopram 40 MG TABLET 60 MG PO (05:33)
[2020-04-24] MEDS: Tamsulosin HCl 0.4 MG Capsule 0.8 MG PO (05:33)
[2020-04-24] MEDS: Pantoprazole Sodium 40 MG Tablet PO (05:34)
[2020-04-24] MEDS: APIXABAN 5 MG TABLET PO ×2 (05:34→17:45)
[2020-04-24] MEDS: NIFEdipine 60 MG Tablet PO (05:34)
[2020-04-24] MEDS: Isosorbide Mononitrate 30 MG Tablet PO (05:34)
[2020-04-24] MEDS: Losartan Potassium 100 MG Tablet PO (05:34)
[2020-04-24] MEDS: Menthol/Lanolin/Calamine/Znox 113 GM Tube 1 APPLIC TOPICAL ×2 (05:35→17:48)
[2020-04-24] MEDS: Nystatin Powder 15gm Bottle 1 APPLIC TOPICAL ×2 (05:36→21:10)
[2020-04-24] MEDS: Sucralfate 1 GM Tablet PO ×2 (05:38→21:09)
[2020-04-24] MEDS: Budesonide Respules 0.5 MG/2 ML AMPUL.NEB. INHALATION ×2 (06:31→19:49)
[2020-04-24 06:32] VITALS: PULSE 65; RESP 20
[2020-04-24 06:51] LABS: Bedside Glucose 94 mg/dL (70-110)
--- NOTE | 2020-04-24 10:21 | MDS.RN ---
Information for the mds was obtained from review of the clinical record, interview of resident, staff, and direct observation of resident's care.
[2020-04-24 11:00] LABS: Bedside Glucose 146 mg/dL (70-110)
[2020-04-24] MEDS: Ferrous Sulfate 325 MG Tablet PO ×2 (11:50→17:45)
[2020-04-24 13:59] VITALS: BP 129/63; PULSE 70; RESP 22; TEMP 36.1; O2SAT 94
[2020-04-24] MEDS: 0.9% Saline Lock 10 ML Syringe IV (15:38)
[2020-04-24 16:11] LABS: Bedside Glucose 136 mg/dL (70-110)
[2020-04-24] MEDS: Senna Tablet 1 TABLET PO (17:45)
[2020-04-24 19:49] VITALS: PULSE 51; RESP 18
[2020-04-24] MEDS: Atorvastatin Calcium 40 MG Tablet PO (21:09)
[2020-04-24 21:21] LABS: Bedside Glucose 160 mg/dL (70-110)
[2020-04-25] VITALS (7 sets, daily range): BP systolic 118–132; BP diastolic 64–68; PULSE 50–64; RESP 15–20; TEMP 36.4–36.7; O2SAT 92–95
[2020-04-25] MEDS: Pantoprazole Sodium 40 MG Tablet PO (05:59)
[2020-04-25] MEDS: Isosorbide Mononitrate 30 MG Tablet PO (05:59)
[2020-04-25] MEDS: Sucralfate 1 GM Tablet PO ×2 (05:59→19:37)
[2020-04-25] MEDS: NIFEdipine 60 MG Tablet PO (05:59)
[2020-04-25] MEDS: Metoprolol(XL)Succ 25 MG Tablet 12.5 MG PO (05:59)
[2020-04-25] MEDS: Losartan Potassium 100 MG Tablet PO (06:00)
[2020-04-25] MEDS: Tamsulosin HCl 0.4 MG Capsule 0.8 MG PO (06:00)
[2020-04-25] MEDS: Citalopram 40 MG TABLET 60 MG PO (06:00)
[2020-04-25] MEDS: APIXABAN 5 MG TABLET PO ×2 (06:01→18:25)
[2020-04-25] MEDS: Fluticasone 0.05% 1 SPRAY NASAL.SRY NASAL (06:02)
[2020-04-25] MEDS: Menthol/Lanolin/Calamine/Znox 113 GM Tube 1 APPLIC TOPICAL ×2 (06:03→18:32)
[2020-04-25] MEDS: Nystatin Powder 15gm Bottle 1 APPLIC TOPICAL ×2 (06:03→19:39)
[2020-04-25 06:41] LABS: Bedside Glucose 106 mg/dL (70-110)
[2020-04-25] MEDS: Budesonide Respules 0.5 MG/2 ML AMPUL.NEB. INHALATION ×2 (07:05→18:40)
[2020-04-25] MEDS: Ferrous Sulfate 325 MG Tablet PO ×2 (11:14→18:24)
[2020-04-25 11:30] LABS: Bedside Glucose 138 mg/dL (70-110)
--- NOTE | 2020-04-25 15:59 | NURSING ---
Resident notified of staff member testing positive for COVID-19.
[2020-04-25 16:46] LABS: Bedside Glucose 104 mg/dL (70-110)
[2020-04-25] MEDS: Atorvastatin Calcium 40 MG Tablet PO (19:39)
--- NOTE | 2020-04-25 19:49 | NURSING ---
Pt c/o pain to mid abdomen, non tender, requested and given carafate , state i took it this am and it helped, hyper active bowel sounds, assisted to br, passing large amts of gas
[2020-04-25 21:16] LABS: Bedside Glucose 199 mg/dL (70-110)
[2020-04-26 05:21] VITALS: BP 130/70; PULSE 55; RESP 18; TEMP 36.5; O2SAT 94
[2020-04-26] MEDS: 0.9% Saline Lock 10 ML Syringe IV (05:25)
[2020-04-26 05:27] VITALS: BP 130/70; PULSE 55
[2020-04-26] MEDS: Metoprolol(XL)Succ 25 MG Tablet 12.5 MG PO (05:27)
[2020-04-26] MEDS: Tamsulosin HCl 0.4 MG Capsule 0.8 MG PO (05:27)
[2020-04-26] MEDS: NIFEdipine 60 MG Tablet PO (05:27)
[2020-04-26] MEDS: Isosorbide Mononitrate 30 MG Tablet PO (05:27)
[2020-04-26] MEDS: APIXABAN 5 MG TABLET PO ×2 (05:27→17:35)
[2020-04-26] MEDS: Pantoprazole Sodium 40 MG Tablet PO (05:27)
[2020-04-26] MEDS: Citalopram 40 MG TABLET 60 MG PO (05:28)
[2020-04-26] MEDS: Losartan Potassium 100 MG Tablet PO (05:28)
[2020-04-26] MEDS: Fluticasone 0.05% 1 SPRAY NASAL.SRY NASAL (05:29)
[2020-04-26] MEDS: Menthol/Lanolin/Calamine/Znox 113 GM Tube 1 APPLIC TOPICAL ×2 (05:29→17:36)
[2020-04-26] MEDS: Nystatin Powder 15gm Bottle 1 APPLIC TOPICAL ×2 (05:30→21:50)
[2020-04-26 05:33] LABS: Absolute Lymphocyte Count 1.22 X10^3/uL (0.83-4.51); Absolute Neutrophil Count 5.3 X10^3/uL (2.0-7.7); Basophil# 0.03 X10^3/uL; Basophil% 0.4 % (0-1); Eosinophil# 0.28 X10^3/uL; Eosinophils% 3.7 % (0-5); Hematocrit 35.2 % (40-54); Hemoglobin 11.2 g/dL (13.0-16.5); Lymphocyte # 1.22 X10^3/ul (4.0); Lymphocyte % 16.2 % (19-41); Mean Corp Hgb Conc 31.8 g/dL (32-36); Mean Corpuscular Hgb 28.9 pg (27.0-32.0); Mean Platelet Vol. 9.8 fl (6.2-12.0); Monocyte# 0.62 X10^3/uL; Monocyte% 8.3 % (0-10); NRBC Flagged by Analyzer 0 % (0-5); Neutrophil # 5.32 X10^3/uL (2.7-7.7); Neutrophil % 70.9 % (47-70); Platelet Count 216 K/mm3 (150-450); RBC Distribution Width CV 12.8 % (11.6-14.6); RBC Distribution Width SD 42.2 fl (35.1-43.9); Red Blood Count 3.87 M/mm3 (4.6-6.2); White Blood Count 7.5 K/mm3 (4.4-11.0)
[2020-04-26 05:57] LABS: Anion Gap 7 (5-15); BUN 33 mg/dL (7-18); BUN/Creat Ratio 16.8 RATIO (10-20); Calcium,Total 7.9 mg/dL (8.5-10.1); Chloride 110 mmol/L (98-107); Creatinine, Serum 1.97 mg/dL (0.70-1.30); EST Glomerular Filtration Rate 35 mL/min (>60); Est Glom Filt Rate - Afr Amer 42 mL/min (>60); Estimated Creatinine Clearance 33.37 ml/min; Glucose 96 mg/dL (74-106); Potassium 4.1 mmol/L (3.5-5.1); Sodium Level 140 mmol/L (136-145)
[2020-04-26 06:26] LABS: Bedside Glucose 98 mg/dL (70-110)
[2020-04-26 06:59] VITALS: PULSE 70; RESP 20
[2020-04-26] MEDS: Budesonide Respules 0.5 MG/2 ML AMPUL.NEB. INHALATION ×2 (06:59→18:40)
[2020-04-26 11:00] LABS: Bedside Glucose 131 mg/dL (70-110)
[2020-04-26] MEDS: Ferrous Sulfate 325 MG Tablet PO ×2 (11:47→17:34)
[2020-04-26 12:59] VITALS: BP 134/65; PULSE 56; RESP 17; TEMP 36.4; O2SAT 94
[2020-04-26 16:16] LABS: Bedside Glucose 151 mg/dL (70-110)
[2020-04-26 18:40] VITALS: PULSE 51; RESP 20
[2020-04-26 21:25] LABS: Bedside Glucose 130 mg/dL (70-110)
[2020-04-26] MEDS: Atorvastatin Calcium 40 MG Tablet PO (21:49)
[2020-04-27 05:13] VITALS: BP 154/77; PULSE 58; RESP 18; TEMP 36.1; O2SAT 98
[2020-04-27] MEDS: Menthol/Lanolin/Calamine/Znox 113 GM Tube 1 APPLIC TOPICAL ×2 (05:14→10:56)
[2020-04-27] MEDS: Tamsulosin HCl 0.4 MG Capsule 0.8 MG PO (05:19)
[2020-04-27 05:20] VITALS: BP 154/77; PULSE 58
[2020-04-27] MEDS: APIXABAN 5 MG TABLET PO ×2 (05:20→17:37)
[2020-04-27] MEDS: Citalopram 40 MG TABLET 60 MG PO (05:20)
[2020-04-27] MEDS: Losartan Potassium 100 MG Tablet PO (05:20)
[2020-04-27] MEDS: Metoprolol(XL)Succ 25 MG Tablet 12.5 MG PO (05:20)
[2020-04-27] MEDS: NIFEdipine 60 MG Tablet PO (05:21)
[2020-04-27] MEDS: Isosorbide Mononitrate 30 MG Tablet PO (05:21)
[2020-04-27] MEDS: Fluticasone 0.05% 1 SPRAY NASAL.SRY NASAL (05:22)
[2020-04-27] MEDS: Pantoprazole Sodium 40 MG Tablet PO (05:23)
[2020-04-27] MEDS: Nystatin Powder 15gm Bottle 1 APPLIC TOPICAL ×2 (05:23→22:09)
[2020-04-27 06:26] LABS: Bedside Glucose 93 mg/dL (70-110)
[2020-04-27 07:00] VITALS: PULSE 58; RESP 14
[2020-04-27 11:01] LABS: Bedside Glucose 150 mg/dL (70-110)
[2020-04-27] MEDS: Ferrous Sulfate 325 MG Tablet PO ×2 (11:37→17:37)
[2020-04-27 15:17] VITALS: BP 144/75; PULSE 80; RESP 18; TEMP 36.7; O2SAT 95
[2020-04-27 15:42] LABS: ALB/GLOB Ratio 0.6 RATIO (0.9-2.4); AST(SGOT) 8 U/L (15-37); Alanine Aminotransfer ALT/SGPT 17 U/L (16-61); Albumin, Serum 2.6 g/dL (3.2-5.0); Alkaline Phosphatase 91 U/L (45-117); Anion Gap 3 (5-15); BUN 33 mg/dL (7-18); Calcium,Total 8.3 mg/dL (8.5-10.1); Chloride 113 mmol/L (98-107); EST Glomerular Filtration Rate 31 mL/min (>60); Est Glom Filt Rate - Afr Amer 37 mL/min (>60); Estimated Creatinine Clearance 29.88 ml/min; Glucose 110 mg/dL (74-106); Potassium 4.5 mmol/L (3.5-5.1); Protein, Total 6.6 g/dL (6.4-8.2); Sodium Level 140 mmol/L (136-145)
[2020-04-27 16:35] LABS: Bedside Glucose 127 mg/dL (70-110)
[2020-04-27 21:26] LABS: Bedside Glucose 142 mg/dL (70-110)
[2020-04-27] MEDS: Atorvastatin Calcium 40 MG Tablet PO (22:09)
[2020-04-28 06:20] VITALS: BP 162/72; PULSE 69; RESP 18; TEMP 36.7; O2SAT 96
[2020-04-28] MEDS: NIFEdipine 60 MG Tablet PO (06:21)
[2020-04-28] MEDS: Citalopram 40 MG TABLET 60 MG PO (06:21)
[2020-04-28] MEDS: Tamsulosin HCl 0.4 MG Capsule 0.8 MG PO (06:21)
[2020-04-28 06:22] VITALS: BP 162/72; PULSE 69
[2020-04-28] MEDS: Isosorbide Mononitrate 30 MG Tablet PO (06:22)
[2020-04-28] MEDS: Losartan Potassium 100 MG Tablet PO (06:22)
[2020-04-28] MEDS: Metoprolol(XL)Succ 25 MG Tablet 12.5 MG PO (06:22)
[2020-04-28] MEDS: Pantoprazole Sodium 40 MG Tablet PO (06:22)
[2020-04-28] MEDS: APIXABAN 5 MG TABLET PO ×2 (06:23→18:15)
[2020-04-28] MEDS: Fluticasone 0.05% 1 SPRAY NASAL.SRY NASAL (06:24)
[2020-04-28] MEDS: Menthol/Lanolin/Calamine/Znox 113 GM Tube 1 APPLIC TOPICAL ×2 (06:25→18:16)
[2020-04-28] MEDS: Nystatin Powder 15gm Bottle 1 APPLIC TOPICAL ×2 (06:26→21:47)
[2020-04-28 06:35] VITALS: PULSE 59; RESP 16; O2SAT 96
[2020-04-28 06:36] LABS: Bedside Glucose 83 mg/dL (70-110)
[2020-04-28] MEDS: Budesonide Respules 0.5 MG/2 ML AMPUL.NEB. INHALATION ×2 (06:45→19:15)
[2020-04-28 11:20] LABS: Bedside Glucose 126 mg/dL (70-110)
[2020-04-28] MEDS: Ferrous Sulfate 325 MG Tablet PO ×2 (11:25→18:14)
[2020-04-28 14:23] VITALS: BP 103/53; PULSE 59; RESP 14; TEMP 36.1; O2SAT 94
[2020-04-28 16:10] LABS: Bedside Glucose 139 mg/dL (70-110)
[2020-04-28 19:15] VITALS: PULSE 61; RESP 16
[2020-04-28 21:20] LABS: Bedside Glucose 132 mg/dL (70-110)
[2020-04-28] MEDS: Atorvastatin Calcium 40 MG Tablet PO (21:43)
[2020-04-29 05:00] VITALS: BP 116/58; PULSE 64; RESP 16; TEMP 36.9; O2SAT 94
[2020-04-29] MEDS: Menthol/Lanolin/Calamine/Znox 113 GM Tube 1 APPLIC TOPICAL ×2 (06:11→17:26)
[2020-04-29] MEDS: Citalopram 40 MG TABLET 60 MG PO (06:12)
[2020-04-29 06:13] VITALS: BP 118/66; PULSE 64
[2020-04-29] MEDS: Metoprolol(XL)Succ 25 MG Tablet 12.5 MG PO (06:13)
[2020-04-29] MEDS: Tamsulosin HCl 0.4 MG Capsule 0.8 MG PO (06:15)
[2020-04-29] MEDS: Losartan Potassium 100 MG Tablet PO (06:15)
[2020-04-29] MEDS: APIXABAN 5 MG TABLET PO ×2 (06:15→17:25)
[2020-04-29 06:16] LABS: Bedside Glucose 63 mg/dL (70-110)
[2020-04-29] MEDS: NIFEdipine 60 MG Tablet PO (06:17)
[2020-04-29] MEDS: Isosorbide Mononitrate 30 MG Tablet PO (06:17)
[2020-04-29] MEDS: Pantoprazole Sodium 40 MG Tablet PO (06:17)
[2020-04-29] MEDS: Fluticasone 0.05% 1 SPRAY NASAL.SRY NASAL (06:18)
[2020-04-29] MEDS: Nystatin Powder 15gm Bottle 1 APPLIC TOPICAL ×2 (06:19→21:22)
[2020-04-29 07:06] LABS: Bedside Glucose 68 mg/dL (70-110)
[2020-04-29 07:21] VITALS: PULSE 71; RESP 18
[2020-04-29 07:21] LABS: Bedside Glucose 71 mg/dL (70-110)
[2020-04-29] MEDS: Budesonide Respules 0.5 MG/2 ML AMPUL.NEB. INHALATION ×2 (07:21→19:15)
[2020-04-29 08:35] VITALS: PULSE 65; RESP 16; O2SAT 96
[2020-04-29 10:31] LABS: Bedside Glucose 134 mg/dL (70-110)
[2020-04-29] MEDS: Ferrous Sulfate 325 MG Tablet PO ×2 (11:10→17:25)
[2020-04-29 13:38] VITALS: BP 118/57; PULSE 58; RESP 16; TEMP 36.6; O2SAT 95
[2020-04-29 16:46] LABS: Bedside Glucose 140 mg/dL (70-110)
[2020-04-29 19:15] VITALS: PULSE 72; RESP 16
[2020-04-29 21:16] LABS: Bedside Glucose 160 mg/dL (70-110)
[2020-04-29] MEDS: Atorvastatin Calcium 40 MG Tablet PO (21:23)
[2020-04-30 04:41] VITALS: BP 134/61; PULSE 58; RESP 18; TEMP 36.8; O2SAT 96
[2020-04-30] MEDS: Fluticasone 0.05% 1 SPRAY NASAL.SRY NASAL (04:43)
[2020-04-30] MEDS: Tamsulosin HCl 0.4 MG Capsule 0.8 MG PO (04:43)
[2020-04-30] MEDS: Citalopram 40 MG TABLET 60 MG PO (04:44)
[2020-04-30] MEDS: Losartan Potassium 100 MG Tablet PO (04:44)
[2020-04-30] MEDS: APIXABAN 5 MG TABLET PO ×2 (04:44→17:54)
[2020-04-30 04:45] VITALS: BP 134/61; PULSE 58
[2020-04-30] MEDS: Isosorbide Mononitrate 30 MG Tablet PO (04:45)
[2020-04-30] MEDS: Pantoprazole Sodium 40 MG Tablet PO (04:45)
[2020-04-30] MEDS: NIFEdipine 60 MG Tablet PO (04:45)
[2020-04-30] MEDS: Metoprolol(XL)Succ 25 MG Tablet 12.5 MG PO (04:45)
[2020-04-30] MEDS: Nystatin Powder 15gm Bottle 1 APPLIC TOPICAL ×2 (04:46→22:18)
[2020-04-30] MEDS: Menthol/Lanolin/Calamine/Znox 113 GM Tube 1 APPLIC TOPICAL ×2 (04:46→17:55)
[2020-04-30 06:21] LABS: Bedside Glucose 127 mg/dL (70-110)
[2020-04-30 07:01] VITALS: PULSE 60; RESP 12; O2SAT 92
[2020-04-30] MEDS: Budesonide Respules 0.5 MG/2 ML AMPUL.NEB. INHALATION (07:01)
--- NOTE | 2020-04-30 08:00 | RAD_ITS ---
STUDY: X-RAY - ABDOMEN/PELVIS REASON FOR EXAM: Male, 79 years old. Pt states a lot of gas TECHNIQUE: Single AP view of the abdomen / pelvis. COMPARISON: None. FINDINGS: Minimal increased linear markings at the left lung base suggestive of atelectasis. There is a moderate amount of colonic fecal material. The visualized liver, spleen and kidneys are grossly normal in size and morphology. Normal soft tissue structures. There are diffuse degenerative changes of the visualized lumbar spine. RAD/Abdomen Single View IMPRESSION: Moderate amount of fecal material is seen in the colon. Electronically Signed: Seymour Shelley, at 12:36 EST , Service support ,
[2020-04-30 11:00] LABS: Bedside Glucose 174 mg/dL (70-110)
[2020-04-30] MEDS: Ferrous Sulfate 325 MG Tablet PO ×2 (11:55→17:54)
[2020-04-30 12:56] VITALS: BP 136/63; PULSE 61; RESP 18; TEMP 36.3; O2SAT 97
[2020-04-30] MEDS: Magnesium Citrate 300 ML PO (13:43)
[2020-04-30 16:41] LABS: Bedside Glucose 143 mg/dL (70-110)
[2020-04-30 21:15] LABS: Bedside Glucose 146 mg/dL (70-110)
[2020-04-30 22:14] VITALS: PULSE 57; RESP 18; O2SAT 96
[2020-04-30] MEDS: Atorvastatin Calcium 40 MG Tablet PO (22:17)
[2020-05-01] MEDS: Tamsulosin HCl 0.4 MG Capsule 0.8 MG PO (05:59)
[2020-05-01] MEDS: Pantoprazole Sodium 40 MG Tablet PO (05:59)
[2020-05-01] MEDS: NIFEdipine 60 MG Tablet PO (05:59)
[2020-05-01] MEDS: Citalopram 40 MG TABLET 60 MG PO (05:59)
[2020-05-01] MEDS: Isosorbide Mononitrate 30 MG Tablet PO (06:00)
[2020-05-01] MEDS: APIXABAN 5 MG TABLET PO ×2 (06:00→18:02)
[2020-05-01 06:01] VITALS: PULSE 59
[2020-05-01] MEDS: Metoprolol(XL)Succ 25 MG Tablet 12.5 MG PO (06:01)
[2020-05-01] MEDS: Nystatin Powder 15gm Bottle 1 APPLIC TOPICAL ×2 (06:02→21:21)
[2020-05-01] MEDS: Menthol/Lanolin/Calamine/Znox 113 GM Tube 1 APPLIC TOPICAL ×2 (06:02→18:02)
[2020-05-01] MEDS: Losartan Potassium 100 MG Tablet PO (06:03)
[2020-05-01] MEDS: Fluticasone 0.05% 1 SPRAY NASAL.SRY NASAL (06:06)
[2020-05-01 06:07] VITALS: BP 159/86; PULSE 59; RESP 16; TEMP 37; O2SAT 93
[2020-05-01 06:15] LABS: Bedside Glucose 108 mg/dL (70-110)
[2020-05-01 06:50] VITALS: PULSE 65; RESP 16
[2020-05-01] MEDS: Budesonide Respules 0.5 MG/2 ML AMPUL.NEB. INHALATION ×2 (06:50→19:40)
[2020-05-01 11:01] LABS: Bedside Glucose 168 mg/dL (70-110)
[2020-05-01] MEDS: Ferrous Sulfate 325 MG Tablet PO ×2 (11:12→18:03)
[2020-05-01 12:30] VITALS: PULSE 54; RESP 18; O2SAT 94
[2020-05-01 12:41] VITALS: BP 129/57; PULSE 68; RESP 18; TEMP 36.1; O2SAT 94
--- NOTE | 2020-05-01 14:11 | NURSING ---
NO NEW UPDATES AT THIS TIME
[2020-05-01 17:00] LABS: Bedside Glucose 145 mg/dL (70-110)
[2020-05-01 19:40] VITALS: PULSE 78; RESP 18
[2020-05-01] MEDS: Atorvastatin Calcium 40 MG Tablet PO (21:19)
[2020-05-01 21:45] LABS: Bedside Glucose 182 mg/dL (70-110)
[2020-05-02 05:00] VITALS: BP 149/72; PULSE 66; RESP 18; TEMP 37.1; O2SAT 90
[2020-05-02] MEDS: Menthol/Lanolin/Calamine/Znox 113 GM Tube 1 APPLIC TOPICAL ×2 (05:39→17:25)
[2020-05-02] MEDS: Losartan Potassium 100 MG Tablet PO (05:39)
[2020-05-02 05:40] VITALS: BP 149/72; PULSE 66
[2020-05-02] MEDS: Citalopram 40 MG TABLET 60 MG PO (05:40)
[2020-05-02] MEDS: Metoprolol(XL)Succ 25 MG Tablet 12.5 MG PO (05:40)
[2020-05-02] MEDS: NIFEdipine 60 MG Tablet PO (05:41)
[2020-05-02] MEDS: Isosorbide Mononitrate 30 MG Tablet PO (05:41)
[2020-05-02] MEDS: Tamsulosin HCl 0.4 MG Capsule 0.8 MG PO (05:41)
[2020-05-02] MEDS: Pantoprazole Sodium 40 MG Tablet PO (05:41)
[2020-05-02] MEDS: APIXABAN 5 MG TABLET PO ×2 (05:42→17:24)
[2020-05-02] MEDS: Fluticasone 0.05% 1 SPRAY NASAL.SRY NASAL (05:43)
[2020-05-02] MEDS: Nystatin Powder 15gm Bottle 1 APPLIC TOPICAL ×2 (05:43→21:46)
[2020-05-02 06:36] LABS: Bedside Glucose 120 mg/dL (70-110)
[2020-05-02 11:05] LABS: Bedside Glucose 145 mg/dL (70-110)
--- NOTE | 2020-05-02 11:09 | CASEMGMT ---
Social Work Spoke with pt about requests to DC home soon. Explained pt receives MBS this date to see if upgrade in diet is possible. Pt is doing well physically. Pt agreeable to wait for outcome of MBS and then determine safe DC date soon. Pt denies need for DME, and will decide on HHC vs OP therapy depending if he has transportation. SW to continue to follow. Serena Izquierdo, ENTRY LEVEL CIVIL ENGINEER COOKING TEACHER
[2020-05-02 12:03] VITALS: BP 119/59; PULSE 54; RESP 18; TEMP 36.6; O2SAT 90
[2020-05-02] MEDS: Ferrous Sulfate 325 MG Tablet PO ×2 (12:07→17:25)
[2020-05-02 16:26] LABS: Bedside Glucose 135 mg/dL (70-110)
--- NOTE | 2020-05-02 17:27 | SP.MBSS_ITS ---
Modified Barium Swallow - Patient Information Study Date: 05/02/20 Study Time: 13:00 Direct Billable Minutes: 65 Total Minutes procedure & reportin Diagnosis: Dysphagia (R13.12) Referring Physician: José Manuel Hernandez Chi Reason for Referral: The patient is a 79-year-old male referred for a modified barium swallow (MBS) study to objectively assess the Patients oropharyngeal swallow function under fluoroscopy status post acute left pontine infarct. Medical History: Left pontine cerebral infarction, diabetes mellitus, pulmonary embolism, hyperte nsion, atrial fibrillation, depression, benign prostatic hyperplasia, neuropathic pain, stage III chronic kidney disease, type 2 diabetes mellitus, paroxysmal atrial fibrillation, right bundle branch block, history of pulmonary embolism, essential (primary) hypertension, history of loop recorder, bradycardia, thromboembolism, hyperlipidemia, bifascicular bundle branch block - Penetration-Aspiration Scale Score Thin Liquid via teaspoon Result: 1= does not enter airway Thin Liquid via Cup Result: 8= enters airway/below vocal folds/no effort [place] Thickened Liquids via Cup Result: 1= does not enter airway [place] Thick Liquid Trial 2 Result: 2= enter airway/above vocal folds/ejected [place] Thick Liquid Trial 3 Result: 2= enter airway/above vocal folds/ejected [place] Thick Liquid Trial 4 Result: 2= enter airway/above vocal folds/ejected Pud[place] Result: 1= does not enter airway [place] Result: 1= does not enter airway [place] Thickened Liquids via Straw Result: 2= enter airway/above vocal folds/ejected [place] Thickened Liquids via Straw with Chin Tuck Result: 1= does not enter airway [place] Thickened Liquids via Straw with Chin Tuck 2 Result: 2= enter airway/above vocal folds/ejected [place] Thickened Liquids via Straw with Chin Tuck 3 Result: 1= does not enter airway - Oral Phase Labial Seal: No Labial Escape Tongue Control During Bolus Hold: Posterior escape of less than half of bolus Bolus Preparation/Mastication: Timely and efficient chewing and mashing Bolus Transport/Lingual Motion: Brisk tongue motion Oral Residue: Trace residue lining oral structures - Pharyngeal Phase Initiation of Pharyngeal Swallow: Bolus head in pyriforms Soft Palate Elevation: No bolus between soft palate and pharyngeal wall Laryngeal Elevation: Partial superior movement thyroid cart/partial apprx aryt- epig petiole Anterior Hyoid Excursion: Partial anterior movement Epiglottic Movement: Partial inversion Laryngeal Vestibule Closure at Height of Swallow: Complete; no air/contrast in laryngeal vestibule Pharyngeal Stripping Wave: Present - complete Pharyngoesophageal Segment Opening: Complete distension and complete duration; no obstruction of flow Tongue Base Retraction: Trace column of contrast between tongue base & post. pharyngeal wall Pharyngeal Residue: Collection of residue within or on pharyngeal structures - Diagnosis/Impression Diagnosis: Dysphagia (R13.12) Impression: The Patient presents with moderate oropharyngeal dysphagia (DSRS: 4; DCS: D0) with grade III SILENT aspiration of thin liquids secondary to an acute left pontine infarction. Oral preparatory phase overall unremarkable. Noted premature spillage with thin liquids combining with pharyngeal phase dyssynchrony leading to prandial penetration and subsequent aspiration of thin liquids. Completed via C-arm given his body habitus. - Recommendations Comment: DIET TEXTURE RECOMMENDATIONS: regular ? soft textured (IDDSI: 6), nectar thickened liquid (IDDSI: 2) diet RECOMMENDED COMPENSATORY STRATEGIES: distant supervision, chin tuck via straw, reduced bolus volume / rate of ingestion, seated upright at 90 degrees during PO intake, remain upright for 30-60 minutes post meal (GERD precaution) Recommend Repeat Modified Barium Swallow: Yes Need for Skilled Speech Therapy Services: Yes Education Completed: 1. Described result of evaluation., 2. Pt understands evaluation & agrees with goals and treatment plan., 7. Pt requires further education on strategies & risks. - Status Active ST Patient: Active
[2020-05-02 19:30] VITALS: PULSE 50; RESP 16; O2SAT 96
[2020-05-02] MEDS: Budesonide Respules 0.5 MG/2 ML AMPUL.NEB. INHALATION (19:30)
[2020-05-02 21:15] LABS: Bedside Glucose 168 mg/dL (70-110)
[2020-05-02] MEDS: Atorvastatin Calcium 40 MG Tablet PO (21:45)
[2020-05-03 05:00] VITALS: BP 153/77; PULSE 55; RESP 18; TEMP 36.5; O2SAT 90
[2020-05-03] MEDS: Losartan Potassium 100 MG Tablet PO (05:40)
[2020-05-03] MEDS: Isosorbide Mononitrate 30 MG Tablet PO (05:40)
[2020-05-03] MEDS: Tamsulosin HCl 0.4 MG Capsule 0.8 MG PO (05:40)
[2020-05-03 05:41] VITALS: BP 153/77; PULSE 55
[2020-05-03] MEDS: NIFEdipine 60 MG Tablet PO (05:41)
[2020-05-03] MEDS: Pantoprazole Sodium 40 MG Tablet PO (05:41)
[2020-05-03] MEDS: APIXABAN 5 MG TABLET PO ×2 (05:41→17:30)
[2020-05-03] MEDS: Metoprolol(XL)Succ 25 MG Tablet 12.5 MG PO (05:41)
[2020-05-03] MEDS: Citalopram 40 MG TABLET 60 MG PO (05:41)
[2020-05-03] MEDS: Menthol/Lanolin/Calamine/Znox 113 GM Tube 1 APPLIC TOPICAL ×2 (05:45→17:27)
[2020-05-03] MEDS: Nystatin Powder 15gm Bottle 1 APPLIC TOPICAL ×2 (05:46→21:08)
[2020-05-03 06:02] LABS: Absolute Lymphocyte Count 1.41 X10^3/uL (0.83-4.51); Absolute Neutrophil Count 5.7 X10^3/uL (2.0-7.7); Basophil# 0.04 X10^3/uL; Basophil% 0.5 % (0-1); Eosinophils% 3.7 % (0-5); Hematocrit 34.3 % (40-54); Hemoglobin 10.8 g/dL (13.0-16.5); Lymphocyte # 1.41 X10^3/ul (4.0); Lymphocyte % 17.2 % (19-41); Mean Corp Hgb Conc 31.5 g/dL (32-36); Mean Corpuscular Hgb 28.1 pg (27.0-32.0); Mean Corpuscular Volume 89.3 fL (80-94); Mean Platelet Vol. 10.1 fl (6.2-12.0); Monocyte# 0.67 X10^3/uL; Monocyte% 8.2 % (0-10); NRBC Flagged by Analyzer 0 % (0-5); Neutrophil # 5.73 X10^3/uL (2.7-7.7); Platelet Count 211 K/mm3 (150-450); RBC Distribution Width CV 13.1 % (11.6-14.6); RBC Distribution Width SD 42.5 fl (35.1-43.9); Red Blood Count 3.84 M/mm3 (4.6-6.2); White Blood Count 8.2 K/mm3 (4.4-11.0)
[2020-05-03 06:34] LABS: Anion Gap 3 (5-15); BUN 27 mg/dL (7-18); BUN/Creat Ratio 15.6 RATIO (10-20); Calcium,Total 8.1 mg/dL (8.5-10.1); Chloride 114 mmol/L (98-107); Creatinine, Serum 1.73 mg/dL (0.70-1.30); EST Glomerular Filtration Rate 41 mL/min (>60); Est Glom Filt Rate - Afr Amer 49 mL/min (>60); Glucose 113 mg/dL (74-106); Potassium 3.7 mmol/L (3.5-5.1); Sodium Level 141 mmol/L (136-145)
[2020-05-03 06:50] LABS: Bedside Glucose 119 mg/dL (70-110)
[2020-05-03 10:55] LABS: Bedside Glucose 144 mg/dL (70-110)
[2020-05-03] MEDS: Ferrous Sulfate 325 MG Tablet PO ×2 (11:54→17:30)
--- NOTE | 2020-05-03 12:21 | ST ---
Called pt's to update on pt's progress, recent MBS study results and current diet and compensatory strategy recommendations. Education provided on where to purchase thickener and how to add to liquids. Will provide written information to send home with patient on discharge. Pt's verbalizes understanding. encouraged to call ST anytime with questions.
[2020-05-03 13:39] VITALS: BP 126/61; PULSE 62; RESP 18; TEMP 36.6; O2SAT 94
--- NOTE | 2020-05-03 15:04 | CASEMGMT ---
Social Work Met with pt to discuss request to DC 05/08. IDT agreeable. Pt to speak with this evening about transportation for outpatient therapy or if pt would need HHC. No DME needs. Plan: DC home with 05/08 Serena Izquierdo, ENERGY SYSTEMS ENGINEER LOG YARD DERRICK OPERATOR
[2020-05-03 16:11] LABS: Bedside Glucose 156 mg/dL (70-110)
[2020-05-03 18:50] VITALS: PULSE 66; RESP 20
[2020-05-03] MEDS: Budesonide Respules 0.5 MG/2 ML AMPUL.NEB. INHALATION (18:50)
--- NOTE | 2020-05-03 19:38 | DCINST_ITS ---
- Discharge Diagnoses Current Active Problems: Current Active and Chronic Problems (Last Updated 04/02/20 @ 17:[address] Love Christine MD) Debility (Acute) Change in mental status (Acute) Stroke (Acute) Dysarthria (Acute) Right hemiparesis (Acute) Diabetes mellitus (Chronic) Pulmonary embolism (Chronic) Hypertension (Chronic) Atrial fibrillation (Chronic) Depression (Chronic) BPH (benign prostatic hyperplasia) (Chronic) Neuropathic pain (Chronic) Coronary artery disease (Acute) Stage III chronic kidney disease (Chronic) Right bundle branch block (RBBB) (Chronic) HLD (hyperlipidemia) (Chronic) You will use the following diet at home:: No restrictions, Regular Your food should be the consistency of: Regular Your liquids should be the consistency of: Regular/Thin Discharge Activity: Return to Normal Activity, May Shower, Use Walker Weight Bearing Status: Weight bearing as tolerated Call your doctor if you observe: Fever of 101 or Higher, Inability to urinate, Inability to have a bowel movement, Shortness of breath, Chest pain, Uncontrolled pain Allergies/Adverse Reactions: Allergies MARGIE Inhibitors Allergy (Unknown, Verified 04/02/20 15:01) edema cefepime Allergy (Verified 04/02/20 15:01) weakness and falling WEAKNESS & FALLING ipodate [Ipodate] Allergy (Verified 04/02/20 15:01) Shortness of breath levofloxacin [Levofloxacin] Allergy (Verified 04/02/20 15:01) Anaphylaxis lisinopril Allergy (Verified 04/02/20 15:01) Shortness of breath ofloxacin Allergy (Verified 04/02/20 15:01) Other Quinolones Allergy (Verified 04/02/20 15:01) Anaphylaxis Medications to take at Discharge Citalopram [Celexa] 40 mg PO DAILY 05/29/15 Tamsulosin HCl [Flomax] 0.8 mg PO DAILY 07/08/16 Gabapentin [Neurontin] 300 - 600 mg PO TID PRN PRN 03/11/18 Isosorbide Mononitrate [Imdur] 30 mg PO DAILY 03/12/18 Insulin Lispro [Humalog KwikPen] 20 unit SQ TIDCM 09/16/18 metoprolol succinate 25 mg tablet,extended release 24 hr 12.5 mg PO DAILY tab 09/23/18 Atorvastatin Calcium [Lipitor] 40 mg PO DAILY 04/02/20 Insulin Glargine,Hum.rec.anlog [Lantus Solostar] 20 unit SQ BID 04/02/20 Losartan Potassium [Cozaar] 100 mg PO DAILY 04/02/20 Albuterol Inhaler [Ventolin Hfa] 1 puff INHALATION Q6H PRN PRN 04/11/20 Apixaban [Eliquis] 5 mg PO BID 04/11/20 Ferrous Sulfate 325 mg PO BID 04/11/20 Fluticasone 0.05% [Flonase Nasal [place]] 50 mcg NASAL DAILY 04/11/20 Mineral Oil/Petrolatum,White [Eucerin] 1 applic TOPICAL BID PRN PRN 04/11/20 Mineral Oil/Petrolatum,White [Eucerin] 1 applic TOPICAL BID PRN PRN 04/11/20 Mometason Formoterol 100 mcg INHALATION Q12H 04/11/20 NIFEdipine [Procardia Xl] 60 mg PO DAILY 04/11/20 Nitroglycerin 0.4 mg SL Q5M PRN 04/11/20 Sucralfate [Carafate] 1 gm PO 4X/DAY PRN 04/11/20 Acetaminophen [Tylenol] 1,000 mg PO Q6H PRN PRN tablet 05/03/20 Apixaban [Eliquis] 5 mg PO Q12 #60 tab 05/03/20 Ferrous Sulfate 325 mg PO 1200,1700 #60 tab 05/03/20 Fluticasone 0.05% [Flonase Nasal [place]] 1 spray NASAL DAILY nasal.sry 05/03/20 Menthol/Lanolin/Calamine/Znox [Calmoseptine Ointment] 1 applic TOPICAL BID tube 05/03/20 Mineral Oil/Petrolatum,White [Eucerin] 1 applic TOPICAL BID jar 05/03/20 NIFEdipine [Procardia Xl] 60 mg PO DAILY #30 tab 05/03/20 Nitroglycerin (INPATIENT USE) [Nitrostat] 0.4 mg SUBLINGUAL Q5M PRN tab.subl 05/03/20 Nystatin Powder [Mycostatin Powder] 1 applic TOPICAL 0600,2200 bottle 05/03/20 Pantoprazole Sodium [Protonix] 40 mg PO DAILY #30 tab 05/03/20 Sucralfate [Carafate] 1 gm PO 1HR_ACHS PRN #120 tab 05/03/20 The following prescriptions were given: Sucralfate [Carafate] 1 gm PO 1HR_ACHS PRN #120 tab PRN Reason: Stomach Transmission Status: Pending to [place] [address] Apixaban [Eliquis] 5 mg PO Q12 #60 tab Transmission Status: Pending to [place] [address] Ferrous Sulfate 325 mg PO 1200,1700 #60 tab Transmission Status: Pending to [place] [address] NIFEdipine [Procardia Xl] 60 mg PO DAILY #30 tab Transmission Status: Pending to [place] [address] Pantoprazole Sodium [Protonix] 40 mg PO DAILY #30 tab Transmission Status: Pending to [place] [address] Primary Care Physician: Wili Nelson DO [Primary Care Provider] - Please follow up with your Primary Care Physician in: 1 week. Test Results: Test results from this visit will be discussed in further detail at your follow- up appointment, if applicable. Please Follow Up With: Wili Nelson DO When: 7-10 days after D/C Please Follow Up With: Edmond Fung jr, MD When: Have PCP refer you to a neurologist if you would like someone closer. Proposed Discharge Date: 05/08/20
--- NOTE | 2020-05-03 19:39 | PCM.DC.SUM ---
Discharge Date and Diagnosis - Problem List Patient Problems: Active and Suspected Problems (Last Updated 04/02/20 @ 17:[address] Love Christine MD) Debility (Acute) Change in mental status (Acute) Stroke (Acute) Dysarthria (Acute) Right hemiparesis (Acute) Coronary artery disease (Acute) Date of Admission: 04/11/20 Date of Discharge: 05/08/20 - Primary Discharge Diagnosis Acute Problems: Active Problems (Last Updated 04/02/20 @ 17:[address] Love Christine MD) Debility (Acute) Change in mental status (Acute) Stroke (Acute) Dysarthria (Acute) Right hemiparesis (Acute) Coronary artery disease (Acute) - Secondary Discharge Diagnosis Chronic Problems: Chronic Problems (Last Updated 04/02/20 @ 17:[address] Love Christine MD) Diabetes mellitus (Chronic) Pulmonary embolism (Chronic) Hypertension (Chronic) Atrial fibrillation (Chronic) Depression (Chronic) BPH (benign prostatic hyperplasia) (Chronic) Neuropathic pain (Chronic) Stage III chronic kidney disease (Chronic) Type 2 diabetes mellitus (Chronic) Paroxysmal atrial fibrillation (Chronic) Right bundle branch block (RBBB) (Chronic) History of pulmonary embolism (Chronic) Essential (primary) hypertension (Chronic) History of loop recorder (Chronic 03/2018) Bradycardia (Chronic) Thromboembolism (Chronic) HLD (hyperlipidemia) (Chronic) Bifascicular bundle branch block (Chronic) Hospital Course and Treatment Imaging Results: 04/11/20 17:17 Diabetic [Diet: Consistent Carb - Calorie Controlled] Food consistency:: Soft & Bite Sized Liquid Consistency:: [place]/Mildly Thick Is pt able to select menu?: Yes Diet Comments: distant supervision, chin tuck with liquids, FFWP How many daily calories?: 2000 calorie Clinical Impression(s) from Imaging Studies KUB X-Ray 04/30/20 08:00 IMPRESSION: Moderate amount of fecal material is seen in the colon. Electronically Signed: Seymour Shelley, at 12:36 EST , Service support , Labs (Last 48 Hours) 05/01/20 05/02/20 05/02/20 21:26 06:16 10:52 WBC RBC Hgb Hct MCV MCH MCHC RDW Std Deviation RDW Coeff of Hilary Plt Count MPV Immature Gran % (Auto) Neut % (Auto) Lymph % (Auto) [place] % (Auto) Eos % (Auto) Baso % (Auto) Absolute Neuts (auto) Absolute Lymphs (auto) Nucleated RBC % Sodium Potassium Chloride Carbon Dioxide Anion Gap BUN Creatinine Estim Creat Clear Calc Est GFR (MDRD) Af Amer Est GFR (MDRD) Non-Af BUN/Creatinine Ratio Glucose Calcium POC Glucose 182 H 120 H 145 H 05/02/20 05/02/20 05/03/20 16:18 21:07 05:05 WBC 8.2 RBC 3.84 L Hgb 10.8 L Hct 34.3 L MCV 89.3 MCH 28.1 MCHC 31.5 L RDW Std Deviation 42.5 RDW Coeff of Hilary 13.1 Plt Count 211 MPV 10.1 Immature Gran % (Auto) 0.400 Neut % (Auto) 70.0 Lymph % (Auto) 17.2 L [place] % (Auto) 8.2 Eos % (Auto) 3.7 Baso % (Auto) 0.5 Absolute Neuts (auto) 5.7 Absolute Lymphs (auto) 1.41 Nucleated RBC % 0 Sodium Potassium Chloride Carbon Dioxide Anion Gap BUN Creatinine Estim Creat Clear Calc Est GFR (MDRD) Af Amer Est GFR (MDRD) Non-Af BUN/Creatinine Ratio Glucose Calcium POC Glucose 135 H 168 H 05/03/20 05/03/20 05/03/20 05:05 06:18 10:42 WBC RBC Hgb Hct MCV MCH MCHC RDW Std Deviation RDW Coeff of Hilary Plt Count MPV Immature Gran % (Auto) Neut % (Auto) Lymph % (Auto) [place] % (Auto) Eos % (Auto) Baso % (Auto) Absolute Neuts (auto) Absolute Lymphs (auto) Nucleated RBC % Sodium 141 Potassium 3.7 Chloride 114 H Carbon Dioxide 24.0 Anion Gap 3 L BUN 27 H Creatinine 1.73 H Estim Creat Clear Calc 38.00 Est GFR (MDRD) Af Amer 49 L Est GFR (MDRD) Non-Af 41 L BUN/Creatinine Ratio 15.6 Glucose 113 H Calcium 8.1 L POC Glucose 119 H 144 H 05/03/20 16:02 WBC RBC Hgb Hct MCV MCH MCHC RDW Std Deviation RDW Coeff of Hilary Plt Count MPV Immature Gran % (Auto) Neut % (Auto) Lymph % (Auto) [place] % (Auto) Eos % (Auto) Baso % (Auto) Absolute Neuts (auto) Absolute Lymphs (auto) Nucleated RBC % Sodium Potassium Chloride Carbon Dioxide Anion Gap BUN Creatinine Estim Creat Clear Calc Est GFR (MDRD) Af Amer Est GFR (MDRD) Non-Af BUN/Creatinine Ratio Glucose Calcium POC Glucose 156 H Operations: None Procedures: None Summary of Care Provided: The patient is a 79 year old Male with below past medical history hospitalized for left pontine stroke, complicated by urinary tract infection, dysphagia, admitted to TCU with debility, here for rehabilitation, strengthening, prior to discharge home with . Resident had diarrhea on TCU, X-ray showed ileus, General Surgery recommended conservative management, Diarrhea evaluation negative. Discharge home with . Patient Problems: Active and Suspected Problems (Last Updated 04/02/20 @ 17:[address] Love Christine MD) Debility (Acute) Change in mental status (Acute) Stroke (Acute) Dysarthria (Acute) Right hemiparesis (Acute) Coronary artery disease (Acute) - Physical Exam Vitals/I&O's: Vital Signs Temp Pulse Resp BP Pulse Ox 97.8 F 62 18 126/61 H 94 05/03/20 13:39 05/03/20 13:39 05/03/20 13:39 05/03/20 13:39 05/03/20 13:39 Oxygen Flow Rate (L/min) 3 Oxygen Delivery Method Room Air Weight: 153.399 kg Body Mass Index (BMI) 47.1 Finger Stick Blood Glucose 221 Intake and Output for Last 24 Hours 05/01/20 05/02/20 05/03/20 23:59 23:59 23:59 Intake Total 1220 / 1220 1620 / 1620 720 / 720 Balance 1220 / 1220 1620 / 1620 720 / 720 Laboratory Results 05/02/20 21:07: POC Glucose 168 H 05/03/20 05:05: WBC 8.2, RBC 3.84 L, Hgb 10.8 L, Hct 34.3 L, MCV 89.3, MCH 28.1, MCHC 31.5 L, RDW Std Deviation 42.5, RDW Coeff of Hilary 13.1, Plt Count 211, MPV 10.1, Immature Gran % (Auto) 0.400, Neut % (Auto) 70.0, Lymph % (Auto) 17.2 L, [place] % (Auto) 8.2, Eos % (Auto) 3.7, Baso % (Auto) 0.5, Absolute Neuts (auto) 5.7, Absolute Lymphs (auto) 1.41, Nucleated RBC % 0 05/03/20 05:05: Sodium 141, Potassium 3.7, Chloride 114 H, Carbon Dioxide 24.0, Anion Gap 3 L, BUN 27 H, Creatinine 1.73 H, Estim Creat Clear Calc 38.00, Est GFR (MDRD) Af Amer 49 L, Est GFR (MDRD) Non-Af 41 L, BUN/Creatinine Ratio 15.6, Glucose 113 H, Calcium 8.1 L 05/03/20 06:18: POC Glucose 119 H 05/03/20 10:42: POC Glucose 144 H 05/03/20 16:02: POC Glucose 156 H Current Medications Acetaminophen (Acetaminophen 500 Mg Tablet) 1,000 mg PO Q6H PRN PRN PRN Reason: Pain Score 1-10 Albuterol Sulfate (Albuterol 2.5 Mg/3 Ml Vial.Neb.) 2.5 mg INHALATION Q6H PRN PRN PRN Reason: SOB or Wheezing Last Admin: 04/13/20 19:16 Dose: 2.5 mg Documented by: Apixaban (Apixaban 5 Mg Tablet) 5 mg PO Q12 FERNANDO Last Admin: 05/03/20 17:30 Dose: 5 mg Documented by: Atorvastatin Calcium (Atorvastatin Calcium 40 Mg Tablet) 40 mg PO QHS FERNANDO Last Admin: 05/02/20 21:45 Dose: 40 mg Documented by: Bisacodyl (Bisacodyl 10 Mg Suppository) 10 mg RECTAL DAILY PRN PRN Reason: Constipation Budesonide (Budesonide Respules 0.5 Mg/2 Ml Ampul.Neb.) 0.5 mg INHALATION Q12H.RT FERNANDO Last Admin: 05/02/20 19:30 Dose: 0.5 mg Documented by: Calamine/Phenol (Menthol/Lanolin/Calamine/Znox 113 Gm Tube) 1 applic TOPICAL BID FERNANDO; Protocol Last Admin: 05/03/20 17:27 Dose: 1 applicatio Documented by: Citalopram Hydrobromide (Citalopram 40 Mg Tablet) 60 mg PO DAILY [facility] Last Admin: 05/03/20 05:41 Dose: 60 mg Documented by: Ferrous Sulfate (Ferrous Sulfate 325 Mg Tablet) 325 mg PO 1200,1700 [facility] Last Admin: 05/03/20 17:30 Dose: 325 mg Documented by: Fluticasone Propionate (Fluticasone 0.05% 1 [place] Nasal.Sry) 1 spray NASAL DAILY [facility] Last Admin: 05/03/20 05:46 Dose: Not Given Documented by: Gabapentin (Gabapentin 300 Mg Capsule) 300 - 600 mg PO TID PRN PRN PRN Reason: nerve pain Sodium Chloride () 250 mls @ 15 mls/hr IV .[id number] PRN PRN Reason: Saline Flush Insulin Glargine (Insulin Glargine 100 Units/Ml Pen) 15 units SC BID [facility] Last Admin: 05/03/20 17:28 Dose: 15 units Documented by: Isosorbide Mononitrate (Isosorbide Mononitrate 30 Mg Tablet) 30 mg PO DAILY [facility] Last Admin: 05/03/20 05:40 Dose: 30 mg Documented by: Losartan Potassium (Losartan Potassium 100 Mg Tablet) 100 mg PO DAILY [facility] Last Admin: 05/03/20 05:40 Dose: 100 mg Documented by: Magnesium Hydroxide (Magnesium Hydroxide 30 Ml Udc) 30 ml PO DAILY PRN PRN Reason: Constipation Last Admin: 04/11/20 23:10 Dose: 30 ml Documented by: Metoprolol Succinate (Metoprolol(Xl)Succ 25 Mg Tablet) 12.5 mg PO DAILY [facility] Last Admin: 05/03/20 05:41 Dose: 12.5 mg Documented by: Multi-Ingredient Cream (Mineral Oil/Petrolatum,White Jar) 1 applic TOPICAL BID [facility]; Protocol Last Admin: 05/03/20 17:27 Dose: 1 applicatio Documented by: Nifedipine (Nifedipine 60 Mg Tablet) 60 mg PO DAILY [facility] Last Admin: 05/03/20 05:41 Dose: 60 mg Documented by: Nitroglycerin (Nitroglycerin (Inpatient Use) 0.4 Mg Tab.Subl) 0.4 mg SUBLINGUAL Q5M PRN PRN Reason: CARDIAC/CHEST PAIN Nystatin (Nystatin Powder 15gm Bottle) 1 applic TOPICAL 0600,2200 [facility]; Protocol Last Admin: 05/03/20 05:46 Dose: 1 applicatio Documented by: Pantoprazole Sodium (Pantoprazole Sodium 40 Mg Tablet) 40 mg PO DAILY [facility] Last Admin: 05/03/20 05:41 Dose: 40 mg Documented by: Polyethylene Glycol (Polyethylene Glycol 3350 17 Gm Packet) 17 gm PO DAILY PRN PRN Reason: Constipation Senna (Senna Tablet) 1 tablet PO BID PRN PRN Reason: Constipation Simethicone (Simethicone 80 Mg Tablet) 80 mg PO TIDPC [facility] Last Admin: 05/03/20 17:53 Dose: 80 mg Documented by: Sodium Chloride (0.9% Saline Lock 10 Ml Syringe) 10 - 40 ml IV UD PRN PRN Reason: SALINE FLUSH Last Admin: 04/26/20 05:25 Dose: 10 ml Documented by: Sucralfate (Sucralfate 1 Gm Tablet) 1 gm PO 1HR_ACHS PRN PRN Reason: Stomach Last Admin: 04/25/20 19:37 Dose: 1 gm Documented by: Tamsulosin HCl (Tamsulosin Hcl 0.4 Mg Capsule) 0.8 mg PO DAILY [facility] Last Admin: 05/03/20 05:40 Dose: 0.8 mg Documented by: Discharge Diet: No Restrictions Discharge Activity: Return to Normal Activity, May Shower, Use Walker Weight Bearing Status: Weight bearing as tolerated Call your doctor if you observe: Fever of 101 or Higher, Inability to urinate, Inability to have a bowel movement, Shortness of breath, Chest pain, Uncontrolled pain Home Medications: Medications to take at Discharge Citalopram [Celexa] 40 mg PO DAILY 05/29/15 Tamsulosin HCl [Flomax] 0.8 mg PO DAILY 07/08/16 Gabapentin [Neurontin] 300 - 600 mg PO TID PRN PRN 03/11/18 Isosorbide Mononitrate [Imdur] 30 mg PO DAILY 03/12/18 Insulin Lispro [Humalog KwikPen] 20 unit SQ TIDCM 09/16/18 metoprolol succinate 25 mg tablet,extended release 24 hr 12.5 mg PO DAILY tab 09/23/18 Atorvastatin Calcium [Lipitor] 40 mg PO DAILY 04/02/20 Insulin Glargine,Hum.rec.anlog [Lantus Solostar] 20 unit SQ BID 04/02/20 Losartan Potassium [Cozaar] 100 mg PO DAILY 04/02/20 Albuterol Inhaler [Ventolin Hfa] 1 puff INHALATION Q6H PRN PRN 04/11/20 Apixaban [Eliquis] 5 mg PO BID 04/11/20 Ferrous Sulfate 325 mg PO BID 04/11/20 Fluticasone 0.05% [Flonase Nasal Eustace] 50 mcg NASAL DAILY 04/11/20 Mineral Oil/Petrolatum,White [Eucerin] 1 applic TOPICAL BID PRN PRN 04/11/20 Mineral Oil/Petrolatum,White [Eucerin] 1 applic TOPICAL BID PRN PRN 04/11/20 Mometason Formoterol 100 mcg INHALATION Q12H 04/11/20 NIFEdipine [Procardia Xl] 60 mg PO DAILY 04/11/20 Nitroglycerin 0.4 mg SL Q5M PRN 04/11/20 Sucralfate [Carafate] 1 gm PO 4X/DAY PRN 04/11/20 Acetaminophen [Tylenol] 1,000 mg PO Q6H PRN PRN tablet 05/03/20 Apixaban [Eliquis] 5 mg PO Q12 #60 tab 05/03/20 Ferrous Sulfate 325 mg PO 1200,1700 #60 tab 05/03/20 Fluticasone 0.05% [Flonase Nasal [place]] 1 spray NASAL DAILY nasal.sry 05/03/20 Menthol/Lanolin/Calamine/Znox [Calmoseptine Ointment] 1 applic TOPICAL BID tube 05/03/20 Mineral Oil/Petrolatum,White [Eucerin] 1 applic TOPICAL BID jar 05/03/20 NIFEdipine [Procardia Xl] 60 mg PO DAILY #30 tab 05/03/20 Nitroglycerin (INPATIENT USE) [Nitrostat] 0.4 mg SUBLINGUAL Q5M PRN tab.subl 05/03/20 Nystatin Powder [Mycostatin Powder] 1 applic TOPICAL 0600,2200 bottle 05/03/20 Pantoprazole Sodium [Protonix] 40 mg PO DAILY #30 tab 05/03/20 Sucralfate [Carafate] 1 gm PO 1HR_ACHS PRN #120 tab 05/03/20 Following Prescriptions Were Given to Patient: Sucralfate [Carafate] 1 gm PO 1HR_ACHS PRN #120 tab PRN Reason: Stomach Transmission Status: Pending to [place] [address] Apixaban [Eliquis] 5 mg PO Q12 #60 tab Transmission Status: Pending to [place] [address] Ferrous Sulfate 325 mg PO 1200,1700 #60 tab Transmission Status: Pending to [place] [address] NIFEdipine [Procardia Xl] 60 mg PO DAILY #30 tab Transmission Status: Pending to [place] [address] Pantoprazole Sodium [Protonix] 40 mg PO DAILY #30 tab Transmission Status: Pending to [place] [address] Primary Care Physician: Wili Nelson DO [Primary Care Provider] - Please follow up with your Primary Care Physician in: 1 week. Please Follow Up With: Wili Nelson DO When: 7-10 days after D/C Please Follow Up With: Edmond Fung jr, MD When: Have PCP refer you to a neurologist if you would like someone closer. Disposition: Home Minutes spent on discharge:: 30 Patient Condition:: Stable Medical Necessity - Tobacco Use Smoking Status: Former smoker Tobacco Use: Non-smoker Meaningful Use Info Meaningful Use Diagnoses (Choose all that apply): None applicable
[2020-05-03] MEDS: Atorvastatin Calcium 40 MG Tablet PO (21:08)
[2020-05-03 21:10] LABS: Bedside Glucose 180 mg/dL (70-110)
[2020-05-04 04:57] VITALS: BP 144/74; PULSE 60; RESP 18; TEMP 37; O2SAT 92
[2020-05-04] MEDS: Menthol/Lanolin/Calamine/Znox 113 GM Tube 1 APPLIC TOPICAL ×2 (04:58→17:54)
[2020-05-04] MEDS: Nystatin Powder 15gm Bottle 1 APPLIC TOPICAL ×2 (04:58→22:22)
[2020-05-04] MEDS: Tamsulosin HCl 0.4 MG Capsule 0.8 MG PO (04:59)
[2020-05-04] MEDS: Citalopram 40 MG TABLET 60 MG PO (04:59)
[2020-05-04] MEDS: Isosorbide Mononitrate 30 MG Tablet PO (04:59)
[2020-05-04] MEDS: Losartan Potassium 100 MG Tablet PO (04:59)
[2020-05-04 05:00] VITALS: BP 144/74; PULSE 60
[2020-05-04] MEDS: Pantoprazole Sodium 40 MG Tablet PO (05:00)
[2020-05-04] MEDS: Metoprolol(XL)Succ 25 MG Tablet 12.5 MG PO (05:00)
[2020-05-04] MEDS: NIFEdipine 60 MG Tablet PO (05:00)
[2020-05-04] MEDS: APIXABAN 5 MG TABLET PO ×2 (05:00→17:54)
[2020-05-04] MEDS: Fluticasone 0.05% 1 SPRAY NASAL.SRY NASAL (05:02)
[2020-05-04 06:26] LABS: Bedside Glucose 135 mg/dL (70-110)
[2020-05-04 10:51] LABS: Bedside Glucose 166 mg/dL (70-110)
--- NOTE | 2020-05-04 11:22 | CASEMGMT ---
Social Work Spoke with pt and son can transport pt to outpatient therapy. [facility] agreeable [facility]. Referral made for PT/OT/ST. Serena Izquierdo, POWER REACTOR OPERATOR SHIPYARD PAINTING SUPERVISOR
[2020-05-04] MEDS: Ferrous Sulfate 325 MG Tablet PO ×2 (11:35→17:54)
[2020-05-04] MEDS: Acetaminophen 500 MG Tablet 1000 MG PO (11:36)
--- NOTE | 2020-05-04 11:38 | NURSING ---
PT COMPLAINED OF JAW PAIN ON RIGHT SIDE. JAW SLIGHTLY SWOLLEN. ASKED PT IF IT WAS A TOOTH OR GUM THAT HURT,PT STATED NO MY JAW CLOSE TO MY EAR. REPORTED TO RN.
[2020-05-04 13:51] VITALS: BP 120/62; PULSE 54; RESP 18; TEMP 36.5; O2SAT 95
--- NOTE | 2020-05-04 15:48 | NURSING ---
Resident and spouse, Rhina, notified of staff testing positive for COVID.
[2020-05-04 16:46] LABS: Bedside Glucose 147 mg/dL (70-110)
[2020-05-04 22:10] LABS: Bedside Glucose 149 mg/dL (70-110)
[2020-05-04] MEDS: Atorvastatin Calcium 40 MG Tablet PO (22:23)
[2020-05-05 03:39] VITALS: BP 114/72; PULSE 50; RESP 16; TEMP 36.3; O2SAT 97
[2020-05-05 04:57] VITALS: BP 114/72; PULSE 50
[2020-05-05] MEDS: Isosorbide Mononitrate 30 MG Tablet PO (04:57)
[2020-05-05] MEDS: Losartan Potassium 100 MG Tablet PO (04:57)
[2020-05-05] MEDS: Citalopram 40 MG TABLET 60 MG PO (04:57)
[2020-05-05] MEDS: Metoprolol(XL)Succ 25 MG Tablet 12.5 MG PO (04:57)
[2020-05-05] MEDS: Tamsulosin HCl 0.4 MG Capsule 0.8 MG PO (04:58)
[2020-05-05] MEDS: APIXABAN 5 MG TABLET PO ×2 (04:58→16:56)
[2020-05-05] MEDS: Pantoprazole Sodium 40 MG Tablet PO (04:58)
[2020-05-05] MEDS: Menthol/Lanolin/Calamine/Znox 113 GM Tube 1 APPLIC TOPICAL ×2 (04:59→16:56)
[2020-05-05] MEDS: NIFEdipine 60 MG Tablet PO (04:59)
[2020-05-05] MEDS: Nystatin Powder 15gm Bottle 1 APPLIC TOPICAL ×2 (04:59→20:57)
[2020-05-05] MEDS: Fluticasone 0.05% 1 SPRAY NASAL.SRY NASAL (05:00)
[2020-05-05 06:46] LABS: Bedside Glucose 126 mg/dL (70-110)
[2020-05-05 07:22] VITALS: PULSE 68; RESP 18
[2020-05-05] MEDS: Budesonide Respules 0.5 MG/2 ML AMPUL.NEB. INHALATION ×2 (07:22→19:26)
[2020-05-05] MEDS: Ferrous Sulfate 325 MG Tablet PO ×2 (11:04→16:55)
[2020-05-05 11:16] LABS: Bedside Glucose 156 mg/dL (70-110)
[2020-05-05 16:18] VITALS: BP 140/72; PULSE 75; RESP 18; TEMP 36.6; O2SAT 97
[2020-05-05 16:25] LABS: Bedside Glucose 165 mg/dL (70-110)
[2020-05-05 19:27] VITALS: PULSE 68; RESP 18
[2020-05-05] MEDS: Atorvastatin Calcium 40 MG Tablet PO (20:55)
[2020-05-05 21:26] LABS: Bedside Glucose 174 mg/dL (70-110)
[2020-05-06 06:20] VITALS: BP 150/64; PULSE 60; RESP 18; TEMP 36.7; O2SAT 95
[2020-05-06 06:21] VITALS: BP 150/64; PULSE 60
[2020-05-06] MEDS: Fluticasone 0.05% 1 SPRAY NASAL.SRY NASAL (06:21)
[2020-05-06] MEDS: Metoprolol(XL)Succ 25 MG Tablet 12.5 MG PO (06:21)
[2020-05-06] MEDS: Pantoprazole Sodium 40 MG Tablet PO (06:22)
[2020-05-06] MEDS: Losartan Potassium 100 MG Tablet PO (06:22)
[2020-05-06] MEDS: Tamsulosin HCl 0.4 MG Capsule 0.8 MG PO (06:22)
[2020-05-06] MEDS: Isosorbide Mononitrate 30 MG Tablet PO (06:22)
[2020-05-06] MEDS: APIXABAN 5 MG TABLET PO ×2 (06:22→17:12)
[2020-05-06] MEDS: NIFEdipine 60 MG Tablet PO (06:22)
[2020-05-06] MEDS: Citalopram 40 MG TABLET 60 MG PO (06:23)
[2020-05-06] MEDS: Nystatin Powder 15gm Bottle 1 APPLIC TOPICAL ×2 (06:25→19:25)
[2020-05-06 06:26] LABS: Bedside Glucose 106 mg/dL (70-110)
[2020-05-06] MEDS: Menthol/Lanolin/Calamine/Znox 113 GM Tube 1 APPLIC TOPICAL ×2 (06:26→17:14)
[2020-05-06 06:47] VITALS: PULSE 41; RESP 16; O2SAT 96
[2020-05-06] MEDS: Budesonide Respules 0.5 MG/2 ML AMPUL.NEB. INHALATION ×2 (06:47→19:15)
[2020-05-06] MEDS: Ferrous Sulfate 325 MG Tablet PO ×2 (11:14→17:12)
[2020-05-06 11:20] LABS: Bedside Glucose 120 mg/dL (70-110)
[2020-05-06 11:21] VITALS: PULSE 55; RESP 18; O2SAT 94
[2020-05-06 15:04] VITALS: BP 142/58; PULSE 55; RESP 18; TEMP 36.8; O2SAT 94
[2020-05-06 16:25] LABS: Bedside Glucose 154 mg/dL (70-110)
[2020-05-06 19:15] VITALS: PULSE 57; RESP 18
[2020-05-06] MEDS: Atorvastatin Calcium 40 MG Tablet PO (19:24)
[2020-05-06 21:15] LABS: Bedside Glucose 172 mg/dL (70-110)
[2020-05-07 03:06] VITALS: BP 145/62; PULSE 68; RESP 18; TEMP 36.4; O2SAT 92
[2020-05-07 06:25] LABS: Bedside Glucose 122 mg/dL (70-110)
[2020-05-07] MEDS: Fluticasone 0.05% 1 SPRAY NASAL.SRY NASAL (06:49)
[2020-05-07] MEDS: Citalopram 40 MG TABLET 60 MG PO (06:50)
[2020-05-07] MEDS: Losartan Potassium 100 MG Tablet PO (06:50)
[2020-05-07] MEDS: Tamsulosin HCl 0.4 MG Capsule 0.8 MG PO (06:50)
[2020-05-07 06:51] VITALS: PULSE 68
[2020-05-07] MEDS: Pantoprazole Sodium 40 MG Tablet PO (06:51)
[2020-05-07] MEDS: NIFEdipine 60 MG Tablet PO (06:51)
[2020-05-07] MEDS: Metoprolol(XL)Succ 25 MG Tablet 12.5 MG PO (06:51)
[2020-05-07] MEDS: Isosorbide Mononitrate 30 MG Tablet PO (06:51)
[2020-05-07] MEDS: APIXABAN 5 MG TABLET PO ×2 (06:51→17:11)
[2020-05-07] MEDS: Menthol/Lanolin/Calamine/Znox 113 GM Tube 1 APPLIC TOPICAL ×2 (06:57→18:38)
[2020-05-07] MEDS: Nystatin Powder 15gm Bottle 1 APPLIC TOPICAL ×2 (06:58→19:49)
[2020-05-07 11:00] LABS: Bedside Glucose 121 mg/dL (70-110)
[2020-05-07] MEDS: Ferrous Sulfate 325 MG Tablet PO ×2 (11:37→17:11)
[2020-05-07 13:02] VITALS: BP 134/60; PULSE 60; RESP 18; TEMP 36.4; O2SAT 90
[2020-05-07 16:41] LABS: Bedside Glucose 168 mg/dL (70-110)
[2020-05-07] MEDS: Atorvastatin Calcium 40 MG Tablet PO (19:50)
[2020-05-07 21:41] LABS: Bedside Glucose 150 mg/dL (70-110)
[2020-05-08 04:27] VITALS: BP 129/55; PULSE 65; RESP 16; TEMP 36.7; O2SAT 95
[2020-05-08 05:40] VITALS: PULSE 65
[2020-05-08] MEDS: Metoprolol(XL)Succ 25 MG Tablet 12.5 MG PO (05:40)
[2020-05-08] MEDS: Tamsulosin HCl 0.4 MG Capsule 0.8 MG PO (05:40)
[2020-05-08] MEDS: NIFEdipine 60 MG Tablet PO (05:40)
[2020-05-08] MEDS: Losartan Potassium 100 MG Tablet PO (05:40)
[2020-05-08] MEDS: Citalopram 40 MG TABLET 60 MG PO (05:40)
[2020-05-08] MEDS: APIXABAN 5 MG TABLET PO (05:40)
[2020-05-08] MEDS: Pantoprazole Sodium 40 MG Tablet PO (05:40)
[2020-05-08] MEDS: Isosorbide Mononitrate 30 MG Tablet PO (05:40)
[2020-05-08] MEDS: Menthol/Lanolin/Calamine/Znox 113 GM Tube 1 APPLIC TOPICAL (05:42)
[2020-05-08] MEDS: Fluticasone 0.05% 1 SPRAY NASAL.SRY NASAL (05:43)
[2020-05-08] MEDS: Nystatin Powder 15gm Bottle 1 APPLIC TOPICAL (05:43)
[2020-05-08 06:36] LABS: Bedside Glucose 111 mg/dL (70-110)
[2020-05-08 07:13] VITALS: PULSE 76; RESP 16
== END 2020-05-08 11:00 | disposition home or self-care (01) | DRG 57 ==
PROVIDERS: Admitting Provider Family Medicine Geriatric Medicine; PCP Family Medicine; Referring Provider Family Medicine Geriatric Medicine; Visit Provider Family Medicine Geriatric Medicine
DX: I69.351 Hemiplegia and hemiparesis following cerebral infarction affecting right dominant side (principal); Z68.42 Body mass index [BMI] 45.0-49.9, adult; N18.30 Chronic kidney disease, stage 3 unspecified; E11.22 Type 2 diabetes mellitus with diabetic chronic kidney disease; I69.322 Dysarthria following cerebral infarction; I12.9 Hypertensive chronic kidney disease with stage 1 through stage 4 chronic kidney disease, or unspecified chronic kidney disease; F32.9 Major depressive disorder, single episode, unspecified; N40.0 Benign prostatic hyperplasia without lower urinary tract symptoms; E78.5 Hyperlipidemia, unspecified; I25.10 Atherosclerotic heart disease of native coronary artery without angina pectoris; I48.0 Paroxysmal atrial fibrillation; E61.1 Iron deficiency; J44.9 Chronic obstructive pulmonary disease, unspecified; K21.9 Gastro-esophageal reflux disease without esophagitis; Z87.891 Personal history of nicotine dependence; Z86.711 Personal history of pulmonary embolism; Z87.440 Personal history of urinary (tract) infections; G47.33 Obstructive sleep apnea (adult) (pediatric); E66.01 Morbid (severe) obesity due to excess calories
CPT/HCPCS: 36415; 74018; 74230; 80048; 80053; 82274; 82962; 83630; 85025; 87177; 87209; 87426; 87493; 87506; 87635; 92507; 92523; 92526; 92610; 92611; 94640; 97110; 97116; 97162; 97166; 97530; 97535; 97802; A4216; U0003

== ENCOUNTER 2020-05-23 21:13 | Emergency (ER) | payer MEDICARE, OTHER, SELFPAY ==
[2020-04-11 16:52] VITALS: BMI 47.1
[2020-05-23 21:15] VITALS: BP 176/82; PULSE 68; RESP 18; TEMP 36.6; O2SAT 98; BMI 48.1
--- NOTE | 2020-05-23 21:36 | EKG12_ITS ---
Test Reason : HTN Blood Pressure : / mmHG Vent. Rate : 069 BPM Atrial Rate : 069 BPM P-R Int : 300 ms QRS Dur : 144 ms QT Int : 440 ms P-R-T Axes : 063 -73 027 degrees QTc Int : 471 ms Sinus rhythm with 1st degree A-V block Left axis deviation Right bundle branch block Possible Lateral infarct , age undetermined Inferior infarct (cited on or before 11-JUL-2019) Abnormal ECG Confirmed by MICHAEL RAZO, MARCIN ([id number]), editorial project manager GLORIA RANDALL ([id number]) on 05/25/2020 2:05:53 PM Referred By: KIM Confirmed By:BRII RODRIGUEZ MD
--- NOTE | 2020-05-23 21:38 | ED.DCSUM_ITS ---
- ER Visit Summary Date of Service: 05/23/20 Chief Complaint: [Hypertension] History of Present Illness: The patient is a 79 M [presents to the emergency department with complaint of elevated blood pressure today. Patient is a poor informant. Patient states that his knows all the information however she is not here. Patient apparently checked his blood pressure this evening and it was elevated. He is unsure of how high his colic blood pressure was however his diastolic was around 101. He denies any chest pain or shortness of breath. He denies headache. He essentially has no complaints. Patient tells me he had a stroke few months ago but has no leftover deficits from that. Patient also with history of A. fib, diabetes, hypertension, history of PE. Patient is on Eliquis.] Physical Examination: [HEENT-PERRLA, EOMI. Cranial nerves II through XII grossly intact. TMs clear. Mucous membranes moist. No adenopathy. Cardiovascular-regular rate and rhythm without murmur or ectopy Lungs-clear to auscultation, chest wall stable without crepitus or subcu emphysema Abdomen-normoactive bowel sounds, soft, nontender, no rebound or rigidity, no peritoneal signs. Extremities-intact ?4, normal range of motion, normal pulses, atraumatic] Test Results: [EKG obtained on arrival shows sinus rhythm with a ventricular rate of 69 bpm with a first-degree AV block and a right bundle branch block. Patient had evidence of an old inferior infarct. When compared with prior EKG from April 02, 2020 no new changes noted. CBC with differential obtained showed a white count 6.3, hemoglobin 12.7, hematocrit 40, placed 252. Chemistries unremarkable. Troponin is less than 0.015.] Emergency Department Course and Treatment: [Line established on arrival. Patient placed on cardiac nurse specialist.] Without any treatment here patient's blood pressure now in the 140s and 150 systolic with diastolics in the 60s and 70s. Patient continues to be asymptomatic. Treatment Plan: [Continue with his current blood pressure regimen. He is to follow-up with his primary care physician 3 to 5 days. Patient to return if chest pain, shortness of breath, severe headaches, or condition should worsen anyway.] Disposition: [Discharged home in stable condition] Impression: [Hypertension-established] This note was generated with [employer] software. It may contain incorrect words, spelling, and punctuation that were not noted in review of the chart prior to signing ED Disposition - Plan for ED Patient: Referrals: Wili Nelson DO [Primary Care Provider] -
[2020-05-23 21:52] LABS: Absolute Neutrophil Count 4.4 X10^3/uL (2.0-7.7); Basophil# 0.04 X10^3/uL; Basophil% 0.6 % (0-1); Eosinophil# 0.23 X10^3/uL; Eosinophils% 3.6 % (0-5); Hematocrit 39.6 % (40-54); Hemoglobin 12.7 g/dL (13.0-16.5); Lymphocyte % 17.4 % (19-41); Mean Corp Hgb Conc 32.1 g/dL (32-36); Mean Corpuscular Hgb 28.9 pg (27.0-32.0); Mean Corpuscular Volume 90.2 fL (80-94); Mean Platelet Vol. 9.4 fl (6.2-12.0); Monocyte# 0.54 X10^3/uL; Monocyte% 8.5 % (0-10); NRBC Flagged by Analyzer 0 % (0-5); Neutrophil # 4.37 X10^3/uL (2.7-7.7); Platelet Count 252 K/mm3 (150-450); RBC Distribution Width CV 13.3 % (11.6-14.6); RBC Distribution Width SD 44.4 fl (35.1-43.9); Red Blood Count 4.39 M/mm3 (4.6-6.2); White Blood Count 6.3 K/mm3 (4.4-11.0)
[2020-05-23 22:12] VITALS: BP 149/73; PULSE 68; RESP 18; O2SAT 96
[2020-05-23 22:24] LABS: Anion Gap 6 (5-15); BUN 22 mg/dL (7-18); BUN/Creat Ratio 11.8 RATIO (10-20); Calcium,Total 8.3 mg/dL (8.5-10.1); Chloride 112 mmol/L (98-107); Creatinine, Serum 1.87 mg/dL (0.70-1.30); EST Glomerular Filtration Rate 37 mL/min (>60); Est Glom Filt Rate - Afr Amer 45 mL/min (>60); Estimated Creatinine Clearance 35.16 ml/min; Glucose 213 mg/dL (74-106); Potassium 4.6 mmol/L (3.5-5.1); Sodium Level 142 mmol/L (136-145)
--- NOTE | 2020-05-23 22:39 | ED.DEP ---
ED Disposition - Plan for ED Patient: Instructions: ED Hypertension, Established Referrals: Wili Nelson DO [Primary Care Provider] - 3-5 Days
[2020-05-23 23:02] VITALS: BP 154/68; PULSE 70; RESP 18; O2SAT 96
== END 2020-05-23 23:03 | disposition home or self-care (01) ==
LOC: ED 22:19
PROVIDERS: Emergency Provider Emergency Medicine; PCP Family Medicine
DX: I10 Essential (primary) hypertension (principal); I48.91 Unspecified atrial fibrillation; E11.9 Type 2 diabetes mellitus without complications; Z86.73 Personal history of transient ischemic attack (TIA), and cerebral infarction without residual deficits; Z79.02 Long term (current) use of antithrombotics/antiplatelets; Z86.711 Personal history of pulmonary embolism; Z79.4 Long term (current) use of insulin; Z79.899 Other long term (current) drug therapy
CPT/HCPCS: 80048; 84484; 85025; 93005; 99282; A4216

== ENCOUNTER 2020-09-12 16:02 | Emergency (ER) | payer MEDICARE, OTHER, SELFPAY ==
[2020-09-12 16:03] VITALS: BP 190/90; PULSE 72; RESP 14; TEMP 36.7; O2SAT 94; BMI 44.6
--- NOTE | 2020-09-12 16:11 | RAD_ITS ---
STUDY: X-RAY CHEST REASON FOR EXAM: Male, 79 years old. Dyspnea, dyspnea, hemoptysis and cough TECHNIQUE: Single frontal view of the chest. COMPARISON: 07/10/2019. FINDINGS: Cardiac silhouette enlarged. Pulmonary vascularity increased. Aorta unremarkable. No focal airspace opacities. No pleural effusions. Upper abdomen unremarkable. Osseous structures intact. No pneumothorax. RAD/Chest 1 View (Portable) IMPRESSION: Findings consistent with CHF/pulmonary vascular congestion as clinically indicated. Superimposed pneumonia should be excluded clinically Electronically Signed: Madan Olmstead MD at 17:18 EDT Tel , Service support ,
--- NOTE | 2020-09-12 16:11 | EKG12_ITS ---
Test Reason : GI BLEED Blood Pressure : / mmHG Vent. Rate : 071 BPM Atrial Rate : 071 BPM P-R Int : 282 ms QRS Dur : 156 ms QT Int : 434 ms P-R-T Axes : 026 -76 021 degrees QTc Int : 471 ms Sinus rhythm with 1st degree A-V block Left axis deviation Right bundle branch block Inferior infarct , age undetermined Abnormal ECG Confirmed by MICHAEL RAZO, MARCIN ([id number]), index editor PAUL BLUM ([id number]) on 09/14/2020 9:35:09 AM Referred By: GUEVARA Confirmed By:BRII RODRIGUEZ MD
[2020-09-12 16:12] VITALS: BP 193/99; PULSE 77; RESP 19; O2SAT 94
--- NOTE | 2020-09-12 16:28 | ED.DCSUM_ITS ---
History of Present Illness Chief Complaint: GI Bleed Detail of Chief Complaint: Chief complaint is hemoptysis not GI bleed Informant: Patient, Significant Other Onset: Days Context: Sudden Onset Timing: Continuous - Shortness of breath, Intermittent - Mopped assist Quality: This of breath with hemoptysis Location: Respiratory Current Severity: Mild Maximum Severity: Moderate Worsened by: Walking Relieved by: Nothing Associated Symptoms: Hemoptysis and fatigue/generalized weakness Narrative: Patient is an elderly male with multiple medical problems. He is on Eliquis. He does have prior history of pulmonary embolus. He presents with shortness of breath. Cough and hemoptysis started 2 to 3 days ago. He denies rhinorrhea, congestion postnasal drainage. Denies sore throat. He denies headache. He denies visual, ocular auditory symptoms. He denies change in voice. He denies pleuritic chest pain. He denies bleeding of his gums. He denies nausea, vomiting diarrhea. He denies black or maroon stool. He denies dysuria, frequency, urgency or hematuria. He does report bruising easily. He also reports swelling of his lower extremities. He denies orthopnea or PND. He states he is compliant with his medication. Prior similar symptoms: No Recent Illness/Hospitalization: No - Past Medical History (1) Coronary artery disease Status: Acute (2) Dysarthria Status: Acute (3) Stroke Status: Acute (4) Atrial fibrillation Status: Chronic (5) BPH (benign prostatic hyperplasia) Status: Chronic (6) Bifascicular bundle branch block Status: Chronic (7) Depression Status: Chronic (8) Diabetes mellitus Status: Chronic (9) Essential (primary) hypertension Status: Chronic (10) HLD (hyperlipidemia) Status: Chronic (11) History of pulmonary embolism Status: Chronic (12) Neuropathic pain Status: Chronic (13) Stage III chronic kidney disease Status: Chronic Past Medical History - Allergies and Home Meds Allergies/Adverse Reactions: Allergies MARGIE Inhibitors Allergy (Unknown, Verified 09/12/20 16:03) edema cefepime Allergy (Verified 09/12/20 16:03) weakness and falling WEAKNESS & FALLING ipodate [Ipodate] Allergy (Verified 09/12/20 16:03) Shortness of breath levofloxacin [Levofloxacin] Allergy (Verified 09/12/20 16:03) Anaphylaxis lisinopril Allergy (Verified 09/12/20 16:03) Shortness of breath ofloxacin Allergy (Verified 09/12/20 16:03) Other Quinolones Allergy (Verified 09/12/20 16:03) Anaphylaxis Primary Care Physician: Wili Nelson DO [Primary Care Provider] - Prior records reviewed: Yes Surgical History: noncontributory, - - Loop recorder, EGD, left heart catheterization. Lives: Spouse/ Significant Other Smoking Status: Former smoker Alcohol: None Drugs: None - Family History Maternal Family History: Family History (Last Reviewed 04/02/20 @ 17:[address] Love Christine MD) Father Colon cancer Mother Cancer Sister CAD (coronary artery disease) Family History: Reports: Cancer Paternal Family History: Family History (Last Reviewed 04/02/20 @ 17:[address] Love Christine MD) Father Colon cancer Mother Cancer Sister CAD (coronary artery disease) Family History: Reports: Cancer Offspring Family History: Family History (Last Reviewed 04/02/20 @ 17:[address] Love Christine MD) Father Colon cancer Mother Cancer Sister CAD (coronary artery disease) Family History: Reports: - Review of Systems General: Reports: Malaise. Denies: Chills, Fever, Subjective, Sweats, Weight loss Eyes: Denies: Visual changes - bilaterally, Blurred Vision - bilaterally ENT: Denies: Bilateral ear pain, Rhinorrhea, Sore throat Cardiovascular: Denies: Chest pain, Palpitations, Heart racing Respiratory: Reports: Dyspnea, Cough, Dyspnea on exertion. Denies: Sputum - Hemoptysis, Orthopnea, Paroxysmal nocturnal dyspnea Gastrointestinal: Denies: Abdominal pain, Nausea, Vomiting, Diarrhea, Melena, Hematochezia Genitourinary: Denies: Dysuria, Hematuria, Frequency Musculoskeletal: Reports: Swelling. Denies: Myalgias, Arthralgias, Neck pain, Back pain, Extremity Pain, -, - Skin: Denies: Rash, Wounds Neurological: Reports: Weakness. Denies: Headache, Numbness Psych: Reports: Depression Endocrine: Denies: Polyuria, Polydipsia Hematologic: Reports: Easy bruising. Denies: Easy bleeding Allergy: Denies: Uticaria Physical Exam Vital Signs/Narrative: Vital Signs Temp Pulse Resp BP Pulse Ox 09/12/20 16:12 77 19 H 193/99 H 94 09/12/20 16:03 98.1 F 72 14 190/90 H 94 Inital Vital Signs reviewed: Yes General: Well nourished, Well developed, Obese Head: Normocephalic, Atraumatic Eyes: Perrl, EOMI. Negative for: Pale conjunctiva, Scleral icterus ENT: Moist mucous membranes, No rhinorrhea, TM's clear Neck: Supple, Nontender, No lymphadenopathy, No JVD Cardiovascular: Regular rate, Regular rhythm, No murmurs, Normal S1, Normal S2 Respiratory: No distress, CTA bilaterally, Chest nontender Abdomen: Soft, Nontender, Nondistended, Normal bowel sounds Rectal: Deferred Back: Nontender, Normal Inspection Extremities: Nontender, Edema Skin: Normal color, No Trauma, Rash - Anus stasis dermatitis. Negative for: Cyanosis, Diaphoresis, Jaundice Neurological: Alert, Oriented x3, Cranial nerves II-XII grossly intact, Normal Strength, Normal Sensation Psychological: Normal affect Diagnostic/Tx/Re-eval Chest X-Ray - ED: 1 View, Read by ED Physician - View chest x-ray was interpreted by me at 1638., Normal, Bony Structures, No Acute Disease, Chronic Changes, Cardiomegaly - Borderline cardiomegaly Impressions Chest X-Ray 09/12/20 16:11 IMPRESSION: Findings consistent with CHF/pulmonary vascular congestion as clinically indicated. Superimposed pneumonia should be excluded clinically Electronically Signed: Madan Olmstead MD at 17:18 EDT Tel , Service support , 09/12/20 16:11 Chest 1 View (Portable) [RAD] Stat Laboratory Results 09/12/20 09/12/20 09/12/20 16:20 16:20 16:20 WBC 7.3 RBC 4.34 L Hgb 12.5 L Hct 38.5 L MCV 88.7 MCH 28.8 MCHC 32.5 RDW Std Deviation 42.5 RDW Coeff of Hilary 13.2 Plt Count 237 MPV 9.6 Immature Gran % (Auto) 0.300 Neut % (Auto) 75.8 H Lymph % (Auto) 10.3 L [place] % (Auto) 9.1 Eos % (Auto) 4.0 Baso % (Auto) 0.5 Absolute Neuts (auto) 5.5 Absolute Lymphs (auto) 0.75 L Nucleated RBC % 0 D-Dimer Quant (PE/DVT) 0.74 H* Sodium 139 Potassium 4.0 Chloride 108 H Carbon Dioxide 26.0 Anion Gap 5 BUN 23 H Creatinine 1.82 H Estim Creat Clear Calc 36.12 Est GFR (MDRD) Af Amer 46 L Est GFR (MDRD) Non-Af 38 L BUN/Creatinine Ratio 12.6 Glucose 256 H Calcium 8.5 Total Bilirubin 0.60 AST 8 L ALT 13 L Alkaline Phosphatase 91 Total Protein 7.4 Albumin 2.6 L Globulin 4.8 H Albumin/Globulin Ratio 0.5 L Dimer is elevated; however, when corrected for age is normal. Creatinine is elevated 1.82 with a BUN of 23. Glucose elevated 256. White count is unremarkable. Differential is unremarkable. D-dimer is normal for age. Patient was informed of his results. He was informed that he most likely ruptured a blood vessel with coughing. Since there is no evidence of pneumonia will discharge with appropriate home-going instructions. No antibiotics were given. The interpretation by radiologist was read. There is a significant difference in penetration compared to comparison film obtained on July 10, 2019. There is no cephalization. There is no curly B-lines. - EKG Initial EKG Interpretation: Sinus Rhythm - Sinus rhythm with ventricular rate of 71 and a first-degree AV block. NE interval is 282 ms. QS duration 156 ms and morphology consistent with right bundle branch block. QT interval 434 ms. [place] is to the left. - Medical Decision Making Presents with cough and hemoptysis. He is on long-term anticoagulation therapy for prior pulmonary embolus. This may represent ruptured bronchial blood vessel, bronchitis, pneumonia, pulmonary embolus. EKG, chest x-ray appropriate blood work was ordered. ED Disposition - Plan for ED Patient: Disposition: Home or Assisted Living Diagnosis: Hemoptysis, Generalized weakness, Renal insufficiency, Hyperglycemia due to diabetes mellitus Instructions: ED Hemoptysis, ED Renal Insufficiency, ED Weakness (Uncertain Cause) Referrals: Wili Nelson, [Primary Care Provider] - 3-5 Days if not improving
[2020-09-12 16:33] LABS: Absolute Lymphocyte Count 0.75 X10^3/uL (0.83-4.51); Absolute Neutrophil Count 5.5 X10^3/uL (2.0-7.7); Basophil# 0.04 X10^3/uL; Basophil% 0.5 % (0-1); Eosinophil# 0.29 X10^3/uL; Hematocrit 38.5 % (40-54); Hemoglobin 12.5 g/dL (13.0-16.5); Lymphocyte # 0.75 X10^3/ul (4.0); Lymphocyte % 10.3 % (19-41); Mean Corp Hgb Conc 32.5 g/dL (32-36); Mean Corpuscular Hgb 28.8 pg (27.0-32.0); Mean Corpuscular Volume 88.7 fL (80-94); Mean Platelet Vol. 9.6 fl (6.2-12.0); Monocyte# 0.66 X10^3/uL; Monocyte% 9.1 % (0-10); NRBC Flagged by Analyzer 0 % (0-5); Neutrophil # 5.52 X10^3/uL (2.7-7.7); Neutrophil % 75.8 % (47-70); Platelet Count 237 K/mm3 (150-450); RBC Distribution Width CV 13.2 % (11.6-14.6); RBC Distribution Width SD 42.5 fl (35.1-43.9); Red Blood Count 4.34 M/mm3 (4.6-6.2); White Blood Count 7.3 K/mm3 (4.4-11.0)
[2020-09-12 16:50] LABS: ALB/GLOB Ratio 0.5 RATIO (0.9-2.4); AST(SGOT) 8 U/L (15-37); Alanine Aminotransfer ALT/SGPT 13 U/L (16-61); Albumin, Serum 2.6 g/dL (3.2-5.0); Alkaline Phosphatase 91 U/L (45-117); Anion Gap 5 (5-15); BUN 23 mg/dL (7-18); BUN/Creat Ratio 12.6 RATIO (10-20); Calcium,Total 8.5 mg/dL (8.5-10.1); Chloride 108 mmol/L (98-107); Creatinine, Serum 1.82 mg/dL (0.70-1.30); EST Glomerular Filtration Rate 38 mL/min (>60); Est Glom Filt Rate - Afr Amer 46 mL/min (>60); Estimated Creatinine Clearance 36.12 ml/min; Globulin 4.8 g/dL (2.2-4.2); Glucose 256 mg/dL (74-106); Protein, Total 7.4 g/dL (6.4-8.2); Sodium Level 139 mmol/L (136-145)
[2020-09-12 17:21] LABS: D-Dimer Quantitative (DVT/PE) 0.74 FEU/ug/m (0.27-0.49)
[2020-09-12 18:29] VITALS: BP 118/63; PULSE 68; RESP 18; O2SAT 94
== END 2020-09-12 18:42 | disposition home or self-care (01) ==
PROVIDERS: Emergency Provider Emergency Medicine; PCP Family Medicine
DX: R04.2 Hemoptysis (principal); E11.65 Type 2 diabetes mellitus with hyperglycemia; R53.1 Weakness; I25.10 Atherosclerotic heart disease of native coronary artery without angina pectoris; I12.9 Hypertensive chronic kidney disease with stage 1 through stage 4 chronic kidney disease, or unspecified chronic kidney disease; E11.22 Type 2 diabetes mellitus with diabetic chronic kidney disease; N18.30 Chronic kidney disease, stage 3 unspecified; E78.5 Hyperlipidemia, unspecified; E66.9 Obesity, unspecified; Z86.711 Personal history of pulmonary embolism; Z86.73 Personal history of transient ischemic attack (TIA), and cerebral infarction without residual deficits; Z87.891 Personal history of nicotine dependence; Z79.01 Long term (current) use of anticoagulants
CPT/HCPCS: 71045; 80053; 85025; 85379; 93005; 99284; A4216

== ENCOUNTER 2020-10-01 22:45 | Inpatient (IN) | payer MEDICARE, OTHER, SELFPAY ==
[2020-10-01 22:49] VITALS: BP 122/60; PULSE 43; RESP 16; TEMP 36.2; O2SAT 95; BMI 46.2
--- NOTE | 2020-10-01 23:22 | RAD_ITS ---
STUDY: X-RAY CHEST REASON FOR EXAM: Male, 79 years old. Chest pain TECHNIQUE: Single AP portable view of the chest. COMPARISON: September 12, 2020 chest x-ray FINDINGS: The vascular markings are prominent. There is no demonstrated pleural abnormality. There is moderate cardiac enlargement. Normal mediastinum and denys. Normal visualized pulmonary arteries. Normal visualized aortic arch and descending thoracic aorta. There are diffuse degenerative changes of the visualized thoracic spine. Normal visualized ribs, clavicles, and shoulders. There is no demonstrated abnormality of the visualized soft tissue structures of the upper abdomen. RAD/Chest 1 View (Portable) IMPRESSION: Mild vascular congestion. Cardiomegaly. Electronically Signed: Caty Biggs MD at 0:19 EDT Tel , Service support ,
--- NOTE | 2020-10-01 23:22 | EKG12_ITS ---
Test Reason : WEAKNESS Blood Pressure : / mmHG Vent. Rate : 043 BPM Atrial Rate : 043 BPM P-R Int : 272 ms QRS Dur : 162 ms QT Int : 506 ms P-R-T Axes : 069 -60 017 degrees QTc Int : 427 ms Marked sinus bradycardia with 1st degree A-V block Right bundle branch block Left anterior fascicular block Bifascicular block Possible Lateral infarct , age undetermined Inferior infarct , age undetermined Abnormal ECG Confirmed by AI RAZO, BUSHRA ([id number]), market editor PAUL BLUM ([id number]) on 10/03/2020 11:28:22 AM Referred By: DALILA Confirmed By:BUSHRA CLOUD MD
[2020-10-01] MEDS: 0.9% Normal Saline 1,000 ML 1000 ML IV (23:35)
[2020-10-01 23:43] LABS: Bacteria 0 SEEN /hpf (None Seen); Mucous, Urine 0 SEEN /hpf (<or=2+)
[2020-10-01 23:46] LABS: Color, Urine Yellow (Yellow); Glucose, Dipstick 50 mg/dl (Normal); Ketone-Dipstick 5 mg/dl (Negative); Leukocyte Esterase-Dipstick 500 /ul (Negative); Nitrite-Dipstick Negative (Negative); Occult Blood-Urine 150 /ul (Negative); Protein-Dipstick 100 mg/dl (Negative); Specific Gravity, Urine 1.015 (1.002-1.030); Urine Bilirubin Dipstick Negative (Negative); Urine Clarity Turbid (Clear); Urine Urobilinogen Normal (Normal); Urine pH 6.5 (5.0 - 8.0)
[2020-10-01 23:50] VITALS: BP 103/53; PULSE 40; RESP 14; O2SAT 92
--- NOTE | 2020-10-01 23:52 | ED.VIS.GEN ---
History of Present Illness Chief Complaint: Weakness Informant: Patient Onset: Today Context: Sudden Onset Narrative: 79-year-old male with complex medical history presenting with weakness and feeling like his knees gave out on him. Patient states he was going to the bathroom when suddenly felt his knees gave out on him. He denies use of kidney pain. He had a hard time getting back up. Patient's been having some epigastric discomfort and feels like he needs to have a bowel movement. Has associated chest pain, shortness of breath, nausea, vomiting or lightheadedness. He denies feeling like he was going to pass out. When EMS arrived his blood pressure was low. Patient states he has a history of low heart rate. He is not sure if he is on metoprolol. He is on Eliquis because of history of blood clots. He denies any other complaints at this time. Past Medical History - Allergies and Home Meds Allergies/Adverse Reactions: Allergies MARGIE Inhibitors Allergy (Unknown, Verified 10/01/20 23:02) edema cefepime Allergy (Verified 10/01/20 23:02) weakness and falling WEAKNESS & FALLING ipodate [Ipodate] Allergy (Verified 10/01/20 23:02) Shortness of breath levofloxacin [Levofloxacin] Allergy (Verified 10/01/20 23:02) Anaphylaxis lisinopril Allergy (Verified 10/01/20 23:02) Shortness of breath ofloxacin Allergy (Verified 10/01/20 23:02) Other Quinolones Allergy (Verified 10/01/20 23:02) Anaphylaxis Past Medical History: - - Stroke, CKD, PE, proximal A. fib, hypertension, depression, COPD, hyperlipidemia, NILO, type 2 diabetes mellitus, bradycardia Surgical History: noncontributory, - - Loop recorder, EGD, left heart catheterization. Smoking Status: Former smoker - Family History Maternal Family History: Family History (Last Reviewed 10/02/20 @ 02:37 by BETTYE Loza) Father Colon cancer Mother Cancer Sister CAD (coronary artery disease) Family History: Reports: Cancer Paternal Family History: Family History (Last Reviewed 10/02/20 @ 02:37 by BETTYE Loza) Father Colon cancer Mother Cancer Sister CAD (coronary artery disease) Family History: Reports: Cancer Offspring Family History: Family History (Last Reviewed 10/02/20 @ 02:37 by BETTYE Loza) Father Colon cancer Mother Cancer Sister CAD (coronary artery disease) Family History: Reports: - Review of Systems General: Denies: Chills, Fever, Malaise, Sweats Eyes: Denies: Visual changes - bilaterally, Diplopia ENT: Denies: Rhinorrhea, Sore throat Cardiovascular: Denies: Chest pain, Palpitations Respiratory: Denies: Dyspnea, Cough, Dyspnea on exertion Gastrointestinal: Reports: Abdominal pain - Epigastric. Denies: Nausea, Vomiting, Diarrhea, Melena, Hematochezia Genitourinary: Denies: Dysuria, Hematuria, Frequency Musculoskeletal: Reports: - - Bilateral knee weakness. Denies: Back pain, Extremity Pain Skin: Denies: Rash, Wounds Neurological: Denies: Headache, Weakness, Numbness Physical Exam Vital Signs/Narrative: Vital Signs Temp Pulse Resp BP Pulse Ox 10/01/20 23:50 40 L 14 103/53 L 92 10/01/20 22:49 97.2 F L 43 L 16 122/60 H 95 Inital Vital Signs reviewed: Yes General: Well nourished, Well developed, Obese, No Acute Distress Head: Normocephalic, Atraumatic Eyes: Perrl, EOMI ENT: Moist mucous membranes, No rhinorrhea Neck: Supple, Nontender, No JVD Cardiovascular: Regular rate, Regular rhythm, No murmurs Respiratory: No distress, CTA bilaterally, Chest nontender Abdomen: Soft, Nontender, Nondistended, Normal bowel sounds. Negative for: Guarding, Rebound tenderness, Harper's sign Back: Nontender, Normal Inspection Extremities: Nontender, Edema - Bilateral pitting edema up to the knees Skin: Normal color, No rash, - - Chronic venous stasis changes of the bilateral lower extremities Neurological: Alert, Oriented x3, Cranial nerves II-XII grossly intact, Normal Strength, Normal Sensation, - - Patient answers questions appropriately but is slightly slow to respond Psychological: Normal affect, Normal Mood Diagnostic/Tx/Re-eval Clinical Impression(s) from Imaging Studies Chest X-Ray 10/01/20 23:22 IMPRESSION: Mild vascular congestion. Cardiomegaly. Electronically Signed: Caty Biggs MD at 0:19 EDT Tel , Service support , Laboratory Data 10/01/20 10/01/20 10/01/20 23:05 23:30 23:30 WBC 7.0 RBC 4.15 L Hgb 11.7 L Hct 37.1 L MCV 89.4 MCH 28.2 MCHC 31.5 L RDW Std Deviation 42.8 RDW Coeff of Hilary 13.1 Plt Count 244 MPV 9.9 Immature Gran % (Auto) 0.600 Neut % (Auto) 75.1 H Lymph % (Auto) 12.8 L [place] % (Auto) 7.8 Eos % (Auto) 3.1 Baso % (Auto) 0.6 Absolute Neuts (auto) 5.3 Absolute Lymphs (auto) 0.90 Nucleated RBC % 0 Sodium 140 Potassium 3.9 Chloride 108 H Carbon Dioxide 26.0 Anion Gap 6 BUN 28 H Creatinine 2.53 H Estim Creat Clear Calc 25.99 Est GFR (MDRD) Af Amer 32 L Est GFR (MDRD) Non-Af 26 L BUN/Creatinine Ratio 11.1 Glucose 261 H Lactic Acid Calcium 8.1 L Total Bilirubin 0.40 AST 7 L ALT 14 L Alkaline Phosphatase 104 Troponin I < 0.015 Total Protein 7.2 Albumin 2.8 L Globulin 4.4 H Albumin/Globulin Ratio 0.6 L Lipase 84 Urine Color Yellow Urine Clarity Turbid Urine pH 6.5 Ur Specific [place] 1.015 Urine Protein 100 H Urine Glucose (UA) 50 H Urine Ketones 5 H Urine Occult Blood 150 H Urine Nitrite Negative Urine Bilirubin Negative Urine Urobilinogen Normal Ur Leukocyte Esterase 500 H Urine RBC 10-25 SEEN Urine WBC >100 SEEN Ur Squamous Epith Cells 0-5 SEEN Urine Bacteria 0 SEEN Urine Mucus 0 SEEN 10/01/20 23:30 WBC RBC Hgb Hct MCV MCH MCHC RDW Std Deviation RDW Coeff of Hilary Plt Count MPV Immature Gran % (Auto) Neut % (Auto) Lymph % (Auto) [place] % (Auto) Eos % (Auto) Baso % (Auto) Absolute Neuts (auto) Absolute Lymphs (auto) Nucleated RBC % Sodium Potassium Chloride Carbon Dioxide Anion Gap BUN Creatinine Estim Creat Clear Calc Est GFR (MDRD) Af Amer Est GFR (MDRD) Non-Af BUN/Creatinine Ratio Glucose Lactic Acid 1.7 Calcium Total Bilirubin AST ALT Alkaline Phosphatase Troponin I Total Protein Albumin Globulin Albumin/Globulin Ratio Lipase Urine Color Urine Clarity Urine pH Ur Specific [place] Urine Protein Urine Glucose (UA) Urine Ketones Urine Occult Blood Urine Nitrite Urine Bilirubin Urine Urobilinogen Ur Leukocyte Esterase Urine RBC Urine WBC Ur Squamous Epith Cells Urine Bacteria Urine Mucus - Rhythm Strip Rhythm Strip: bradycardia Rate: 43 Ectopy: None - EKG Initial EKG Interpretation: Sinus Bradycardia, - - Sinus bradycardia with first-degree AV block Right bundle branch block and left anterior fascicular block Leftward axis Normal ST segments Compared to prior EKG on 09/12/2020 patient has increased bradycardia - Medical Decision Making Patient evaluated after his knees gave out in the bathroom. He states he did not pass out and states he did not hit his head. He does not know why his knees gave out. He does not feel weak at the time.Patient's blood pressure is 96/52 for EMS. Patient is generally weak with no focal deficits noted. Review of systems he notes that he has had some epigastric tenderness started about an hour prior to arrival. Patient is given IV fluids for soft blood pressures.His work-up is significant for, chronic stable anemia, elevation of his creatinine of 2.53. His baseline creatinine is around 1.7-2.0. Patient is hyperglycemic with a glucose of 281 with a normal anion gap. Urinalysis is significant for ketones, 500 leukoesterase and greater than 100 white blood cells. He does not have any bacteria seen however urine culture is sent and patient is covered with a dose of Rocephin. Patient does have cefepime listed as an allergy but his reaction is weakness difficulty walking. I suspect this is more of an intolerance and not a true allergy. CT of the abdomen pelvis shows a possible ileus, sludge or stones of the gallbladder abnormal lymph nodes of the retroperitoneal area and focal sclerosis of T11 and T12 which could be metastatic in nature. Findings are reviewed for hospitalist patient be admitted given his generalized weakness and MARLON. Patient is agreeable this plan of care. ED Disposition - Plan for ED Patient: Disposition: Acute Care Hospital [facility] Diagnosis: Acute kidney injury superimposed on chronic kidney disease, Debility, Generalized weakness, UTI (urinary tract infection)
[2020-10-01 23:53] LABS: Absolute Neutrophil Count 5.3 X10^3/uL (2.0-7.7); Basophil# 0.04 X10^3/uL; Basophil% 0.6 % (0-1); Eosinophil# 0.22 X10^3/uL; Eosinophils% 3.1 % (0-5); Hematocrit 37.1 % (40-54); Hemoglobin 11.7 g/dL (13.0-16.5); Lymphocyte % 12.8 % (19-41); Mean Corp Hgb Conc 31.5 g/dL (32-36); Mean Corpuscular Hgb 28.2 pg (27.0-32.0); Mean Corpuscular Volume 89.4 fL (80-94); Mean Platelet Vol. 9.9 fl (6.2-12.0); Monocyte# 0.55 X10^3/uL; Monocyte% 7.8 % (0-10); NRBC Flagged by Analyzer 0 % (0-5); Neutrophil # 5.26 X10^3/uL (2.7-7.7); Neutrophil % 75.1 % (47-70); Platelet Count 244 K/mm3 (150-450); RBC Distribution Width CV 13.1 % (11.6-14.6); RBC Distribution Width SD 42.8 fl (35.1-43.9); Red Blood Count 4.15 M/mm3 (4.6-6.2)
[2020-10-01 23:53] LABS: Red Blood Cells-Urine 10-25 SEEN /hpf (0-5); Squamous Epithelial Cells - UA 0-5 SEEN /hpf (0-5); White Blood Cells >100 SEEN /hpf (0-5)
[2020-10-02] VITALS (13 sets, daily range): BP systolic 109–139; BP diastolic 55–68; PULSE 43–79; RESP 15–18; TEMP 36.4–37; O2SAT 93–100; BMI 45.8; BMI 45.9
[2020-10-02 00:07] LABS: Lactic Acid 1.7 mmol/L (0.4-1.9)
[2020-10-02 00:10] LABS: ALB/GLOB Ratio 0.6 RATIO (0.9-2.4); AST(SGOT) 7 U/L (15-37); Alanine Aminotransfer ALT/SGPT 14 U/L (16-61); Albumin, Serum 2.8 g/dL (3.2-5.0); Alkaline Phosphatase 104 U/L (45-117); Anion Gap 6 (5-15); BUN 28 mg/dL (7-18); BUN/Creat Ratio 11.1 RATIO (10-20); Calcium,Total 8.1 mg/dL (8.5-10.1); Chloride 108 mmol/L (98-107); Creatinine, Serum 2.53 mg/dL (0.70-1.30); EST Glomerular Filtration Rate 26 mL/min (>60); Est Glom Filt Rate - Afr Amer 32 mL/min (>60); Estimated Creatinine Clearance 25.99 ml/min; Globulin 4.4 g/dL (2.2-4.2); Glucose 261 mg/dL (74-106); Lipase 84 U/L (73-393); Potassium 3.9 mmol/L (3.5-5.1); Protein, Total 7.2 g/dL (6.4-8.2); Sodium Level 140 mmol/L (136-145)
[2020-10-02] MEDS: Ceftriaxone 1 GM/50 ML BAG IV ×2 (02:15→22:04)
--- NOTE | 2020-10-02 02:28 | PCM.HP.STD ---
<Felicita Vaughn - Last Filed: 10/02/20 02:28> Problem List (1) Debility Status: Acute (2) Bradycardia Status: Acute (3) Abnormal CT of the abdomen Status: Acute (4) Hypertension Status: Chronic (5) Depression Status: Chronic (6) BPH (benign prostatic hyperplasia) Status: Chronic (7) Neuropathic pain Status: Chronic (8) Type 2 diabetes mellitus Status: Chronic (9) Paroxysmal atrial fibrillation Status: Chronic (10) HLD (hyperlipidemia) Status: Chronic (11) Acute kidney injury superimposed on chronic kidney disease Status: Chronic (12) GERD (gastroesophageal reflux disease) Status: Acute History of Present Illness Date of Admission: 10/02/20 Chief Complaint: Weakness The patient is a 79 year old M who presents today following a fall 1 patient reports my knees gave out. Patient also complaining of generic epigastric abdominal pain. Patient hypotensive and bradycardic upon presentation to the ER although blood pressure now stable. Chest x-ray shows no acute findings, however CT of abdomen and pelvis shows findings suspicious for cystitis with no hydronephrosis noted. CT findings also show focal sclerotic appearance of T11 and T12 similar to the prior studies recommend correlation with clinical history of trauma potentially radiation or potentially metastatic disease with recommendations for follow-up bone scan or MRI. Patient currently in bed, lethargic and weak denies lightheadedness, nausea, vomiting, diarrhea or constipation. Patient has medical history which includes chronic kidney disease stage III, BPH, COPD, hypertension, hyperlipidemia, obstructive sleep apnea, obesity, and type 2 diabetes mellitus. Past Medical History Past Medical History (Chronic Problems): Chronic Problems (Last Reviewed 10/02/20 @ 02:36 by Felicita Vaughn, RESEARCH ENVIRONMENTAL ENGINEER-C) Diabetes mellitus (Chronic) Pulmonary embolism (Chronic) Hypertension (Chronic) Atrial fibrillation (Chronic) Depression (Chronic) BPH (benign prostatic hyperplasia) (Chronic) Neuropathic pain (Chronic) Coronary artery disease (Chronic) Acute kidney injury superimposed on chronic kidney disease (Chronic) Stage III chronic kidney disease (Chronic) Type 2 diabetes mellitus (Chronic) Paroxysmal atrial fibrillation (Chronic) Right bundle branch block (RBBB) (Chronic) History of pulmonary embolism (Chronic) Essential (primary) hypertension (Chronic) History of loop recorder (Chronic 03/2018) Thromboembolism (Chronic) HLD (hyperlipidemia) (Chronic) Bifascicular bundle branch block (Chronic) Medical History: Medical History (Last Reviewed 10/02/20 @ 02:36 by Felicita Vaughn RESEARCH ENVIRONMENTAL ENGINEER-C) Right bundle branch block (RBBB) (Chronic) I45.10 History of pulmonary embolism (Chronic) Z86.711 Essential (primary) hypertension (Chronic) I10 Bradycardia (Acute) R00.1 Thromboembolism (Chronic) I74.9 HLD (hyperlipidemia) (Chronic) E78.5 Bifascicular bundle branch block (Chronic) I45.2 BPH (benign prostatic hyperplasia) N40.0 COPD (chronic obstructive pulmonary disease) J44.9 Chronic renal failure, stage 3 (moderate) N18.3 Colon polyps Duodenal ulcer K26.9 Family history of colon cancer Z80.0 History of depression Z86.59 History of other venous thrombosis and embolism Z86.718 Noncompliance Z91.19 with CPAP and follow up and with diet NILO (obstructive sleep apnea) G47.[address] 18/12 cm of water Super obesity E66.9 Type II diabetes mellitus, uncontrolled E11.65 MARLON (acute kidney injury) N17.9 Acute blood loss anemia D62 Hypotension I95.9 Allergies BRAEDEN Inhibitors Allergy (Unknown, Verified 10/01/20 23:02) edema cefepime Allergy (Verified 10/01/20 23:02) weakness and falling WEAKNESS & FALLING ipodate [Ipodate] Allergy (Verified 10/01/20 23:02) Shortness of breath levofloxacin [Levofloxacin] Allergy (Verified 10/01/20 23:02) Anaphylaxis lisinopril Allergy (Verified 10/01/20 23:02) Shortness of breath ofloxacin Allergy (Verified 10/01/20 23:02) Other Quinolones Allergy (Verified 10/01/20 23:02) Anaphylaxis Home Medications: Ambulatory Orders Medication Instructions Recorded Citalopram [Celexa] 40 mg PO DAILY 05/29/15 Tamsulosin HCl [Flomax] 0.8 mg PO DAILY 07/08/16 Gabapentin [Neurontin] 300 - 600 mg PO TID PRN PRN 03/11/18 Isosorbide Mononitrate [Imdur] 30 mg PO DAILY 03/12/18 Insulin Lispro [Humalog KwikPen] 20 unit SQ TIDCM 09/16/18 metoprolol succinate 25 mg 12.5 mg PO DAILY tab 09/23/18 tablet,extended release 24 hr Atorvastatin Calcium [Lipitor] 40 mg PO DAILY 04/02/20 Insulin Glargine,Hum.rec.anlog 20 unit SQ BID 04/02/20 [Lantus Solostar] Losartan Potassium [Cozaar] 100 mg PO DAILY 04/02/20 Albuterol Inhaler [Ventolin Hfa] 1 puff INHALATION Q6H PRN PRN 04/11/20 Apixaban [Eliquis] 5 mg PO BID 04/11/20 Ferrous Sulfate 325 mg PO BID 04/11/20 Fluticasone 0.05% [Flonase Nasal 50 mcg NASAL DAILY 04/11/20 Tenstrike] Mometason Formoterol 100 mcg INHALATION Q12H PRN 04/11/20 NIFEdipine [Procardia Xl] 60 mg PO DAILY 04/11/20 Nitroglycerin 0.4 mg SL Q5M PRN 04/11/20 Sucralfate [Carafate] 1 gm PO 4X/DAY PRN 04/11/20 Nystatin Powder [Mycostatin Powder] 1 applic TOPICAL 0600,2200 bottle 05/03/20 Pantoprazole Sodium [Protonix] 40 mg PO DAILY #30 tab 05/03/20 Starch [Thick-It] 1 ea PO TID #90 powd.pack 05/07/20 Surgical History: Surgical History (Last Reviewed 10/02/20 @ 02:36 by BETTYE Loza) History of loop recorder (Chronic) Onset Date: 03/2018 Z98.890 History of esophagogastroduodenoscopy (EGD) Z98.890 10/24/18,10/29/18 History of left heart catheterization Onset Date: 07/11/19 Z98.890 Surgical History: noncontributory, - - Loop recorder, EGD, left heart catheterization. Psychiatric History: Depression Lives: Spouse/ Significant Other Smoking Status: Former smoker Alcohol: Rare Drugs: None - *Family History Maternal Family History: Family History (Last Reviewed 10/02/20 @ 02:37 by BETTYE Loza) Father Colon cancer Mother Cancer Sister CAD (coronary artery disease) History Items: Cancer Paternal Family History: Family History (Last Reviewed 10/02/20 @ 02:37 by BETTYE Loza) Father Colon cancer Mother Cancer Sister CAD (coronary artery disease) History Items: Cancer Offspring Family History: Family History (Last Reviewed 10/02/20 @ 02:37 by BETTYE Loza) Father Colon cancer Mother Cancer Sister CAD (coronary artery disease) History Items: - Review of Systems Constitutional: Reports: Malaise, Weakness. Denies: Chills, Fever, Weight Change HEENT: Denies: Head Aches, Sinus Congestion, Sinus Drainage Cardiovascular: Denies: Chest Pain, Palpitations Respiratory: Denies: Cough, Shortness of breath at rest, Sputum production Gastrointestinal: Reports: Abdominal Pain - Vague epigastric. Denies: Nausea, Vomiting Genitourinary: Denies: Dysuria Musculoskeletal: Denies: Joint Pain, Joint Tenderness Skin: Denies: Rash, Wounds Neurological: Denies: Numbness, Tingling, Focal weakness Psychiatric: Denies: Anxiety, Depression, Homicidal Ideations, Suicidal Ideations Hematologic/ Lymphatic: Denies: Easy Bruising, Easy Bleeding VTE Information - Inpt Only VTE Present on Admission: No VTE Mechan Device Prophylaxis: None VTE Pharm Prophylaxis ordered?: No Patient Problems: Active and Suspected Problems (Last Reviewed 10/02/20 @ 02:36 by BETTYE Loza) Debility (Acute) Abnormal CT of the abdomen (Acute) GERD (gastroesophageal reflux disease) (Acute) Bradycardia (Acute) - Physical Exam Vitals/I&O's: Vital Signs Temp Pulse Resp BP Pulse Ox 97.5 F L 51 L 15 114/60 95 10/02/20 02:15 10/02/20 02:15 10/02/20 02:15 10/02/20 02:15 10/02/20 02:15 Oxygen Delivery Method Room Air Weight: 341 lb 0.882 oz Body Mass Index (BMI) 46.2 Finger Stick Blood Glucose 221 Intake and Output for Last 24 Hours 09/30/20 10/01/20 10/02/20 23:59 23:59 23:59 Intake Total 1000 / 1000 Balance 1000 / 1000 General: Alert, Oriented x3, Cooperative, Lethargic HEENT: Atraumatic, PERRLA, EOMI, Normocephalic Neck: Supple, No JVD, Negative Carotid Bruits Lungs: Normal air movement, Diminished Cardiovascular: Regular Rhythm, Normal S1, Normal S2, No murmurs, Bradycardic Abdomen: Bowel Sounds Present, Soft, Obese, Tender - Epigastric quadrant Extremities: Capillary Refill Less than 3 Seconds, Edema, Peripheral Pulses Normal Skin: No rashes, No breakdown Musculoskeletal: No Tenderness to Palpation of Joints or Extremities Neurological: Cranial nerves II-XII grossly intact Psych/Mental Status: Appropriate, Flat Affect Laboratory Results 10/01/20 23:05: Urine Color Yellow, Urine Clarity Turbid, Urine pH 6.5, Ur Specific Blount 1.015, Urine Protein 100 H, Urine Glucose (UA) 50 H, Urine Ketones 5 H, Urine Occult Blood 150 H, Urine Nitrite Negative, Urine Bilirubin Negative, Urine Urobilinogen Normal, Ur Leukocyte Esterase 500 H, Urine RBC 10-25 SEEN, Urine WBC >100 SEEN, Ur Squamous Epith Cells 0-5 SEEN, Urine Bacteria 0 SEEN, Urine Mucus 0 SEEN 10/01/20 23:30: WBC 7.0, RBC 4.15 L, Hgb 11.7 L, Hct 37.1 L, MCV 89.4, MCH 28.2, MCHC 31.5 L, RDW Std Deviation 42.8, RDW Coeff of Hilary 13.1, Plt Count 244, MPV 9.9, Immature Gran % (Auto) 0.600, Neut % (Auto) 75.1 H, Lymph % (Auto) 12.8 L, [place]red[place] % (Auto) 7.8, Eos % (Auto) 3.1, Baso % (Auto) 0.6, Absolute Neuts (auto) 5.3, Absolute Lymphs (auto) 0.90, Nucleated RBC % 0 10/01/20 23:30: Sodium 140, Potassium 3.9, Chloride 108 H, Carbon Dioxide 26.0, Anion Gap 6, BUN 28 H, Creatinine 2.53 H, Estim Creat Clear Calc 25.99, Est GFR (MDRD) Af Amer 32 L, Est GFR (MDRD) Non-Af 26 L, BUN/Creatinine Ratio 11.1, Glucose 261 H, Calcium 8.1 L, Total Bilirubin 0.40, AST 7 L, ALT 14 L, Alkaline Phosphatase 104, Troponin I < 0.015, Total Protein 7.2, Albumin 2.8 L, Globulin 4.4 H, Albumin/Globulin Ratio 0.6 L, Lipase 84 10/01/20 23:30: Lactic Acid 1.7 Current Medications Ceftriaxone Sodium (Rocephin) 1 gm in 50 mls @ 100 mls/hr IV X1 ONE Stop: 10/02/20 02:34 Last Admin: 10/02/20 02:15 Dose: 100 mls/hr Documented by: Assessment/Plan All Active Problems (Last Reviewed 10/02/20 @ 02:36 by Felicita Vaughn NP-C) Debility (Acute) Change in mental status (Acute) Stroke (Acute) Dysarthria (Acute) Right hemiparesis (Acute) Abnormal CT of the abdomen (Acute) GERD (gastroesophageal reflux disease) (Acute) Bradycardia (Acute) 1.Acute kidney injury superimposed on chronic kidney disease, stage IIIb related to possible UTI -Gentle IV hydration, normal saline 75ml/hr -Trend BUN and creatinine, CMP daily -Baseline creatinine 1.8, currently 2.5 -Hold BP medication and decrease gabapentin to 100 mg 3 times daily. -Urine culture pending, a positive for protein, glucose, ketones, blood and leukocyte. -First dose of Rocephin given in ER, will continue pending urine culture 2. Bradycardia -To PCU for cardiac monitoring -Hold metoprolol -Vital signs per protocol 3. Debility secondary to possible UTI -PT and OT to eval and treat -Vitamin D and vitamin B12 level ordered 4.Abnormal CT of the abdomen -Bone scan of thoracic spine ordered due to recommendation from abdominal and pelvic CT 5. Diabetes mellitus -Continue home dose Lantus, decrease prandial NovoLog dose 12 units 3 times daily with meals -AC at bedtime blood sugars ordered with sliding scale insulin coverage. 6. Hypertension -Patient initially hypotensive upon presentation, will hold antihypertensives at this time 7. Depression -Continue citalopram 8. BPH -Continue Flomax 9. Diabetic neuropathy -Due to acute kidney injury neuro and decreased to 100 mg 3 times daily at this time. 10. Hyperlipidemia -Continue Lipitor 11. Paroxysmal A. fib -Patient currently in sinus bradycardia, continuous cardiac monitoring ordered. 12. GERD -Continue Carafate and pantoprazole. DVT prophylaxis-not indicated, patient on Eliquis This patient was seen by BETTYE Loza under the supervision of Dr. Rivera. <Ramez Rivera - Last Filed: 10/02/20 03:02> History of Present Illness The patient is a 79 year old M [] Past Medical History Medical History: Medical History (Last Reviewed 10/02/20 @ 02:36 by BETTYE Loza) Right bundle branch block (RBBB) (Chronic) I45.10 History of pulmonary embolism (Chronic) Z86.711 Essential (primary) hypertension (Chronic) I10 Bradycardia (Acute) R00.1 Thromboembolism (Chronic) I74.9 HLD (hyperlipidemia) (Chronic) E78.5 Bifascicular bundle branch block (Chronic) I45.2 BPH (benign prostatic hyperplasia) N40.0 COPD (chronic obstructive pulmonary disease) J44.9 Chronic renal failure, stage 3 (moderate) N18.3 Colon polyps Duodenal ulcer K26.9 Family history of colon cancer Z80.0 History of depression Z86.59 History of other venous thrombosis and embolism Z86.718 Noncompliance Z91.19 with CPAP and follow up and with diet NILO (obstructive sleep apnea) G47.[address] 18/12 cm of water Super obesity E66.9 Type II diabetes mellitus, uncontrolled E11.65 MARLON (acute kidney injury) N17.9 Acute blood loss anemia D62 Hypotension I95.9 Allergies BRAEDEN Inhibitors Allergy (Unknown, Verified 10/01/20 23:02) edema cefepime Allergy (Verified 10/01/20 23:02) weakness and falling WEAKNESS & FALLING ipodate [Ipodate] Allergy (Verified 10/01/20 23:02) Shortness of breath levofloxacin [Levofloxacin] Allergy (Verified 10/01/20 23:02) Anaphylaxis lisinopril Allergy (Verified 10/01/20 23:02) Shortness of breath ofloxacin Allergy (Verified 10/01/20 23:02) Other Quinolones Allergy (Verified 10/01/20 23:02) Anaphylaxis Surgical History: Surgical History (Last Reviewed 10/02/20 @ 02:36 by BETTYE Loza) History of loop recorder (Chronic) Onset Date: 03/2018 Z98.890 History of esophagogastroduodenoscopy (EGD) Z98.890 10/24/18,10/29/18 History of left heart catheterization Onset Date: 07/11/19 Z98.890 - *Family History Maternal Family History: Family History (Last Reviewed 10/02/20 @ 02:37 by BETTYE Loza) Father Colon cancer Mother Cancer Sister CAD (coronary artery disease) Paternal Family History: Family History (Last Reviewed 10/02/20 @ 02:37 by BETTYE Loza) Father Colon cancer Mother Cancer Sister CAD (coronary artery disease) Offspring Family History: Family History (Last Reviewed 10/02/20 @ 02:37 by BETTYE Loza) Father Colon cancer Mother Cancer Sister CAD (coronary artery disease) - Physical Exam Vitals/I&O's: Vital Signs Temp Pulse Resp BP Pulse Ox 97.5 F L 51 L 15 114/60 95 10/02/20 02:15 10/02/20 02:15 10/02/20 02:15 10/02/20 02:15 10/02/20 02:15 Oxygen Delivery Method Room Air Weight: 154.7 kg Body Mass Index (BMI) 46.2 Finger Stick Blood Glucose 221 Intake and Output for Last 24 Hours 09/30/20 10/01/20 10/02/20 23:59 23:59 23:59 Intake Total 1050 / 1050 Balance 1050 / 1050 Laboratory Results 10/01/20 23:05: Urine Color Yellow, Urine Clarity Turbid, Urine pH 6.5, Ur Specific Blount 1.015, Urine Protein 100 H, Urine Glucose (UA) 50 H, Urine Ketones 5 H, Urine Occult Blood 150 H, Urine Nitrite Negative, Urine Bilirubin Negative, Urine Urobilinogen Normal, Ur Leukocyte Esterase 500 H, Urine RBC 10-25 SEEN, Urine WBC >100 SEEN, Ur Squamous Epith Cells 0-5 SEEN, Urine Bacteria 0 SEEN, Urine Mucus 0 SEEN 10/01/20 23:30: WBC 7.0, RBC 4.15 L, Hgb 11.7 L, Hct 37.1 L, MCV 89.4, MCH 28.2, MCHC 31.5 L, RDW Std Deviation 42.8, RDW Coeff of Hilary 13.1, Plt Count 244, MPV 9.9, Immature Gran % (Auto) 0.600, Neut % (Auto) 75.1 H, Lymph % (Auto) 12.8 L, [place] % (Auto) 7.8, Eos % (Auto) 3.1, Baso % (Auto) 0.6, Absolute Neuts (auto) 5.3, Absolute Lymphs (auto) 0.90, Nucleated RBC % 0 10/01/20 23:30: Sodium 140, Potassium 3.9, Chloride 108 H, Carbon Dioxide 26.0, Anion Gap 6, BUN 28 H, Creatinine 2.53 H, Estim Creat Clear Calc 25.99, Est GFR (MDRD) Af Amer 32 L, Est GFR (MDRD) Non-Af 26 L, BUN/Creatinine Ratio 11.1, Glucose 261 H, Calcium 8.1 L, Total Bilirubin 0.40, AST 7 L, ALT 14 L, Alkaline Phosphatase 104, Troponin I < 0.015, Total Protein 7.2, Albumin 2.8 L, Globulin 4.4 H, Albumin/Globulin Ratio 0.6 L, Lipase 84 10/01/20 23:30: Lactic Acid 1.7 Assessment/Plan Patient was seen and examined. I agree with assessment and plan by Felicita Serrano Patient with a history of CKD stage III; COPD; history of PE; super morbid obesity and diabetes mellitus who presents emergency department because his knees gave up and he fell. Patient is alert and oriented x3 Heart sounds S1-S2 Lungs clear to auscultate Abdomen bowel sounds present; soft; nontender nondistended Extremities with 3+ bilateral edema Debility secondary to Bilateral leg weakness PT and OT to work with patient Check vitamin B12 vitamin D Super morbid obesity BMI of 46.3. Complicates care. Lifestyle modification recommended. MARLON on CKD stage III CKD likely secondary to diabetic nephropathy and hypertensive nephrosclerosis Creatinine presentation was 2.53. Creatinine baseline is between 1.8-2 2. Gentle IV hydration ordered Trend BMP Avoid nephrotoxins. Hold home Cozaar. Decrease dose of gabapentin. Hypotension Reportedly his blood pressure was low and he was given fluid by the paramedics Hold all home blood pressure medications at this time. Trend blood pressures. Diabetes mellitus with neuropathy and nephropathy On presentation blood glucose was elevated Home basal insulin continued Prandial insulin adjusted. Accu-Chek with correction scale insulin ordered. Gabapentin for neuropathy continued but dose adjusted secondary to MARLON. Acute cystitis Review of emergency department labs showed abnormal urinalysis. Denies any urinary symptoms but will fall patient was given ceftriaxone at the emergency department. Ceftriaxone continued. Follow urine culture. Bradycardia Reports chronic Review of echocardiogram on 04/04/2020: Estimated ejection fraction 70%. No evidence for diastolic dysfunction. Right ventricle systolic pressure was unable to be determined secondary to inadequate jet. No valvular abnormalities reported. We will observe at the progressive care unit on telemetry. Left heart catheterization on 07/11/2019 showed mild nonobstructive CAD. Last loop recorder check was on 03/16/2020. Abnormal abdominal CT Sclerotic lesion on CT scan Bone scan ordered. Bilateral lower extremity edema Apply Braeden wrap to bilateral legs. Elevate bilateral legs. History of PE/Paroxysmal Afib Eliquis continued Depression/anxiety Celexa continued Hyperlipidemia Lipitor continued DVT prophylaxis On home Eliquis; continued Inpatient E&M: 89352 Init Hosp L3
--- NOTE | 2020-10-02 03:16 | NM_ITS ---
CLINICAL: Male, [address] -- possible metastatic disease at T11-T12 -- No history of Cancer -- Patient fell a couple days ago-states he did not injure back WHOLE BODY NUCLEAR BONE SCAN TECHNIQUE: Following the IV administration of 27.8 mCi of Tc MDP, whole body bone imaging was performed with a gamma camera following a three hour delay. COMPARISON STUDIES : NM - None. CR - Not available for review at this time. CT - earlier today MR - Not available for review at this time. US - Not available for review at this time. FINDINGS: Normal uptake rate from school throughout the majority of the bony skeleton. Focally increased uptake at the thoracolumbar spine corresponding to the areas of sclerosis within the T11 and T12 vertebral bodies but no other areas of increased uptake to suggest metastatic disease. Findings are likely to represent focal degenerative disc disease with extensive endplate sclerosis at T11/T12. Some increased uptake in both knee joints consistent with arthrosis. Normal concentration ray from school by the kidneys with excretion into the bladder. NM/Bone Scan Whole Body IMPRESSION: No scintigraphic evidence metastatic disease. Increased uptake at the site of sclerosis at T11/T12 likely secondary to degenerative disc disease with extensive endplate sclerosis. Electronically Signed: Maxwell Cerda MD at 11:53 EDT Tel , Service support ,
[2020-10-02] MEDS: 0.9% Normal Saline 1,000 ML 75 ML IV (04:29)
[2020-10-02] MEDS: 0.9% Saline Lock 10 ML Syringe IV ×2 (04:30→22:04)
[2020-10-02 05:01] LABS: Absolute Lymphocyte Count 1.19 X10^3/uL (0.83-4.51); Absolute Neutrophil Count 5.7 X10^3/uL (2.0-7.7); Basophil# 0.05 X10^3/uL; Basophil% 0.6 % (0-1); Eosinophil# 0.25 X10^3/uL; Eosinophils% 3.2 % (0-5); Hematocrit 38.3 % (40-54); Lymphocyte # 1.19 X10^3/ul (4.0); Lymphocyte % 15.1 % (19-41); Mean Corp Hgb Conc 31.3 g/dL (32-36); Mean Corpuscular Hgb 28.6 pg (27.0-32.0); Mean Corpuscular Volume 91.4 fL (80-94); Mean Platelet Vol. 9.7 fl (6.2-12.0); Monocyte# 0.65 X10^3/uL; Monocyte% 8.3 % (0-10); NRBC Flagged by Analyzer 0 % (0-5); Neutrophil # 5.69 X10^3/uL (2.7-7.7); Neutrophil % 72.4 % (47-70); Platelet Count 246 K/mm3 (150-450); RBC Distribution Width SD 43.1 fl (35.1-43.9); Red Blood Count 4.19 M/mm3 (4.6-6.2); White Blood Count 7.9 K/mm3 (4.4-11.0)
[2020-10-02 05:21] LABS: ALB/GLOB Ratio 0.7 RATIO (0.9-2.4); AST(SGOT) 10 U/L (15-37); Alanine Aminotransfer ALT/SGPT 12 U/L (16-61); Albumin, Serum 2.7 g/dL (3.2-5.0); Alkaline Phosphatase 103 U/L (45-117); Anion Gap 6 (5-15); BUN 28 mg/dL (7-18); Calcium,Total 7.9 mg/dL (8.5-10.1); Chloride 109 mmol/L (98-107); Creatinine, Serum 2.33 mg/dL (0.70-1.30); EST Glomerular Filtration Rate 29 mL/min (>60); Est Glom Filt Rate - Afr Amer 35 mL/min (>60); Estimated Creatinine Clearance 28.22 ml/min; Globulin 3.7 g/dL (2.2-4.2); Glucose 186 mg/dL (74-106); Potassium 4.1 mmol/L (3.5-5.1); Protein, Total 6.4 g/dL (6.4-8.2); Sodium Level 140 mmol/L (136-145)
[2020-10-02 05:24] LABS: Vitamin B12 309 pg/mL (211-911); Vitamin D,25 Hydroxy 9.8 ng/mL
[2020-10-02] MEDS: Nystatin Powder 15gm Bottle 1 APPLIC TOPICAL ×2 (06:10→22:06)
[2020-10-02] MEDS: Insulin Lispro 100 UNIT/ML INSULN.PEN 12 UNIT SC ×3 (09:09→16:43)
[2020-10-02] MEDS: Fluticasone 0.05% 1 SPRAY NASAL.SRY 2 SPRAY NASAL (09:09)
[2020-10-02] MEDS: APIXABAN 5 MG TABLET PO ×2 (09:10→22:06)
[2020-10-02] MEDS: Ferrous Sulfate 325 MG Tablet PO ×2 (09:10→16:43)
[2020-10-02] MEDS: Glucerna Shake 120 ML LIQUID PO ×2 (09:10→12:26)
[2020-10-02] MEDS: Citalopram 40 MG TABLET PO (09:11)
[2020-10-02] MEDS: Pantoprazole Sodium 40 MG Tablet PO (09:11)
--- NOTE | 2020-10-02 11:00 | CASEMGMT ---
BRITTNI CHAVIRA assessment: Face to Face with patient for initial transition planning/care coordination assessment. BRITTNI CHAVIRA introduced self and role at [facility], pt voices understanding and consents to assessment. Pt is sitting up in bed in no distress. Pt is A/Ox4 and answers all questions appropriately. Care providers, pharmacy, and demographics verified. Presentation: Pt got weak in knees tonight and fell. denies hitting head, no c/o pain Admitting dx: Weakness, marcelo PCP: Omar Specialists: Pt states no current specialists. Preferred [facility]acy: [facility] Insurance: [facility] A/B, [facility] Prescription Benefit: MCR D Living Will/HPOA: Pt states does not have LW/HPOA and declines AD info. LNOK: : Rhina Louis, ; Antoinette Grimes, daughter Living Arrangements: Pt states lives with in 1 story home with 3 steps in and states no concerns at home. Pt states is independent with ADL's. Transportation: Pt states drives self and states no transportation concerns DME/HHC: Pt states has a cane and walker. Pt states no need for any further DME. Pt states no hx of HHC but has been to TCU in the past. Pt states no concerns with going home at time of discharge. Pt is retireed. Pt states does not smoke cigarettes but does drink ETOH occasionally. Pt states no further concerns/needs. CM to follow for PT/OT evals and any further discharge planning/needs. Advised pt to ask for CM if any further questions/concerns/needs arise, voices understanding. Pt Goal: Home Plan[place] BRITTNI CHAVIRA
[2020-10-02 11:26] LABS: Bedside Glucose 141 mg/dL (70-110)
[2020-10-02 12:30] LABS: Bedside Glucose 152 mg/dL (70-110)
--- NOTE | 2020-10-02 12:36 | CHAPLAIN ---
Type of Pastoral Visit _x__ Initial Visit ___ Follow-up Visit ___ On-call Visit ___ General Patient Visit ___ Spiritual Assessment ___ Family Conference ___ Bereavement ___ Rapid Response ___ Code Blue ___ Other (describe below) Pastoral Care Referral From _x__ Patient ___ Family ___ Nurse ___ Physician ___ Boring Machine Operator Horizontal ___ Purchasing Administrator ___ Other (describe below) Sacrament/Intervention _x__ Active listening ___ Anointing ___ Church ___ Bereavement ___ Communion ___ Marcella exploration ___ _x__ Life review _x__ Prayer ___ Reconciliation ___ Sacrament of Sick _x__ Supportive presence ___ Wedding ___ Other (describe below) Pastoral Comments
[2020-10-02] MEDS: Insulin Lispro 100 UNIT/ML INSULN.PEN SC (13:08)
--- NOTE | 2020-10-02 15:57 | PCM.HOSP.N ---
Hospitalist Note Mr. Louis is a 79-year-old male who was admitted overnight after presenting to the emergency department with weakness. He states that his knees gave out on him. He had also been complaining of generic epigastric abdominal pain. In the emergency department he was hypotensive and bradycardic initially but his hypotension improved with IV fluids. His serum creatinine was elevated from his baseline of 1.7-1.9. His CBC was overall unremarkable and his hemoglobin was at baseline. A UA was suggestive of a urinary tract infection and he was initiated on Rocephin. His urine culture is pending at this time. He continues to be on IV fluids. He overall is feeling better. His bradycardia has resolved at this time. His beta-zen was held. Diagnoses Acute cystitis Bradycardia-resolved MARLON on CKD stage IIIb Constipation Debility with bilateral lower extremity weakness COPD History of pulmonary embolism Hypotension-resolved DM-2 Diabetic neuropathy Diabetic nephropathy Abnormal CT of the abdomen Bilateral lower extremity edema Morbid obesity GERD BPH COPD Hypertension Hyperlipidemia NILO
[2020-10-02 16:16] LABS: Bedside Glucose 113 mg/dL (70-110)
[2020-10-02] MEDS: Lactated Ringers 1,000 ML 100 ML IV (16:43)
[2020-10-02] MEDS: Tamsulosin HCl 0.4 MG Capsule 0.8 MG PO (16:44)
[2020-10-02] MEDS: Atorvastatin Calcium 40 MG Tablet PO (22:06)
[2020-10-02 22:10] LABS: Bedside Glucose 111 mg/dL (70-110)
[2020-10-02] MEDS: Gabapentin 100 MG Capsule PO (22:11)
--- NOTE | 2020-10-02 23:23 | CT_ITS ---
STUDY: CT ABDOMEN AND PELVIS WITHOUT CONTRAST REASON FOR EXAM: Male, 79 years old. Epigastric/ RUQ pain RADIATION DOSAGE (If Supplied By Facility): CTDIvol = ( 24.17 ) mGy, DLP = ( 1310.39 ) mGycm TECHNIQUE: Transaxial images were obtained from the dome of the diaphragm to the symphysis pubis without oral contrast, and without intravenous contrast. Sagittal and coronal images were reconstructed. Individualized dose optimization techniques were used for this CT. COMPARISON: July 30, 2019 CT abdomen and pelvis with contrast FINDINGS: There is persistent bilateral lower lobe atelectasis and/or fibrotic change. There is mild cardiac enlargement. Normal liver. Gallbladder appears slightly hyperdense and its contents. Normal spleen. Normal pancreas. There is a stable minimally thickened appearance of the left adrenal gland. The right adrenal gland appears normal. There is a question of mild right renal atrophy. There is a cyst right kidney measuring 4.5 x 4.2 cm with Hounsfield units in the range of simple fluid. There is a exophytic right renal cyst stable since prior study with slightly hyperdense appearance measuring 1.8 x 1.8 cm. There is a parenchymal calcification right kidney measuring 8.5 mm. There is no visualized hydronephrosis. There is a mildly lobulated appearance of the left kidney. Findings are suggestive of multiple cyst is seen on the prior contrasted study. The visualized exophytic cystic structure measuring 1.2 cm. Adjacent to the aorta are multiple small lymph nodes within the periaortic fat measuring up to 1.3 cm. This is also seen on the prior study. There are tortuous loops of colon. There is a narrowed decompressed appearance of the proximal sigmoid. There are a few diverticula present without evidence of diverticulitis. There is a gassy appearance of the transverse colon. There is minimal distention of the small bowel. There is moderate stool within the cecum. The appendix is partially visualized and appears diminutive. The aorta is partially calcified. Normal inferior vena cava. Multiple small nonspecific subcentimeter retroperitoneal lymph nodes. The bladder is decompressed as well as thickened and stranding appearance similar to the prior study. There are calcifications in the normal sized prostate. There is a left-sided fatty inguinal hernia. Normal abdominal wall. There is an inhomogeneous appearance of the bony structures. There is a sclerotic appearance appearance of T11-T12 with worsening appearing degenerative change at the level of T11-T12. L1 through the sacrum appear osteopenic. There is multilevel degenerative disc disease. Degenerative change of the SI joints and both hip joints. There is a stable sclerotic density within the left ilium. CT/Abdomen/Pelvis without Cont IMPRESSION: Mild to moderate constipation tortuosity of the bowel diverticulosis without visualized diverticulitis. Could consider colonic ileus. Slightly hyperdense appearance of the gallbladder and its contents which may represent sludge or stones. Could consider follow-up ultrasound. No appendicitis. Abnormal bladder wall. There is abnormal thickening and inhomogeneity suspicious for cystitis. Bilateral renal cysts similar to prior study. No hydronephrosis. Lower lobe atelectasis and/or scarring. Reactive Atypical appearing lymph nodes adjacent to the aorta within the chest similar to the prior study. Degenerative changes of the thoracolumbar spine. Focal sclerotic appearance of T11 and T12 similar to the prior studies recommend correlation with clinical history of trauma potentially radiation or potentially metastatic disease. Recommend, Follow-up study such as bone scan or MRI. Electronically Signed: Caty Biggs MD at 1:51 EDT Tel , Service support ,
[2020-10-03] VITALS (8 sets, daily range): BP systolic 142–174; BP diastolic 62–81; PULSE 49–63; RESP 17–20; TEMP 36.4–36.8; O2SAT 94–97
[2020-10-03] MEDS: Lactated Ringers 1,000 ML 100 ML IV ×2 (02:48→12:43)
[2020-10-03] MEDS: Nystatin Powder 15gm Bottle 1 APPLIC TOPICAL (06:43)
[2020-10-03 06:55] LABS: Bedside Glucose 126 mg/dL (70-110)
[2020-10-03 08:45] LABS: Anion Gap 5 (5-15); BUN 26 mg/dL (7-18); BUN/Creat Ratio 13.5 RATIO (10-20); Calcium,Total 8.3 mg/dL (8.5-10.1); Chloride 112 mmol/L (98-107); Creatinine, Serum 1.93 mg/dL (0.70-1.30); EST Glomerular Filtration Rate 36 mL/min (>60); Est Glom Filt Rate - Afr Amer 43 mL/min (>60); Estimated Creatinine Clearance 34.06 ml/min; Glucose 119 mg/dL (74-106); Sodium Level 138 mmol/L (136-145)
[2020-10-03 08:50] LABS: Absolute Lymphocyte Count 1.17 X10^3/uL (0.83-4.51); Basophil# 0.06 X10^3/uL; Basophil% 0.8 % (0-1); Eosinophil# 0.29 X10^3/uL; Eosinophils% 4.1 % (0-5); Hematocrit 42.5 % (40-54); Hemoglobin 12.6 g/dL (13.0-16.5); Lymphocyte # 1.17 X10^3/ul (4.0); Lymphocyte % 16.5 % (19-41); Mean Corp Hgb Conc 29.6 g/dL (32-36); Mean Corpuscular Hgb 28.3 pg (27.0-32.0); Mean Corpuscular Volume 95.3 fL (80-94); Mean Platelet Vol. 10.6 fl (6.2-12.0); Monocyte# 0.57 X10^3/uL; NRBC Flagged by Analyzer 0 % (0-5); Neutrophil # 4.96 X10^3/uL (2.7-7.7); Platelet Count 240 K/mm3 (150-450); RBC Distribution Width SD 45.8 fl (35.1-43.9); Red Blood Count 4.46 M/mm3 (4.6-6.2); White Blood Count 7.1 K/mm3 (4.4-11.0)
[2020-10-03] MEDS: Ferrous Sulfate 325 MG Tablet PO (08:55)
[2020-10-03] MEDS: Citalopram 40 MG TABLET PO (08:56)
[2020-10-03] MEDS: Pantoprazole Sodium 40 MG Tablet PO (08:56)
[2020-10-03] MEDS: APIXABAN 5 MG TABLET PO (08:56)
[2020-10-03] MEDS: Fluticasone 0.05% 1 SPRAY NASAL.SRY 2 SPRAY NASAL (08:57)
[2020-10-03] MEDS: Insulin Lispro 100 UNIT/ML INSULN.PEN 12 UNIT SC ×2 (09:00→12:38)
[2020-10-03 09:16] LABS: Bedside Glucose 125 mg/dL (70-110)
[2020-10-03 11:15] LABS: Bedside Glucose 183 mg/dL (70-110)
[2020-10-03] MEDS: Insulin Lispro 100 UNIT/ML INSULN.PEN SC (12:38)
--- NOTE | 2020-10-03 13:13 | NURSING ---
Continues to sit up in chair. Braeden wraps to BLE rewrapped at this time as they were falling down his legs and not wrapped well enough.
--- NOTE | 2020-10-03 13:15 | PCM.DC ---
- Discharge Diagnoses Current Active Problems: Current Active and Chronic Problems (Last Reviewed 10/02/20 @ 02:36 by BETTYE Loza) Debility (Acute) Hypertension (Chronic) Depression (Chronic) BPH (benign prostatic hyperplasia) (Chronic) Neuropathic pain (Chronic) Abnormal CT of the abdomen (Acute) Acute kidney injury superimposed on chronic kidney disease (Chronic) GERD (gastroesophageal reflux disease) (Acute) Acute kidney injury superimposed on chronic kidney disease (Chronic) Debility (Acute) Generalized weakness (Acute) UTI (urinary tract infection) (Acute) Type 2 diabetes mellitus (Chronic) Paroxysmal atrial fibrillation (Chronic) Bradycardia (Acute) HLD (hyperlipidemia) (Chronic) You will use the following diet at home:: Cardiac Your food should be the consistency of: Regular Your liquids should be the consistency of: Regular/Thin Discharge Activity: Return to Normal Activity, No Restrictions Allergies/Adverse Reactions: Allergies MARGIE Inhibitors Allergy (Unknown, Verified 10/02/20 03:20) edema cefepime Allergy (Verified 10/02/20 03:20) weakness and falling WEAKNESS & FALLING ipodate [Ipodate] Allergy (Verified 10/02/20 03:20) Shortness of breath levofloxacin [Levofloxacin] Allergy (Verified 10/02/20 03:20) Anaphylaxis lisinopril Allergy (Verified 10/02/20 03:20) Shortness of breath ofloxacin Allergy (Verified 10/02/20 03:20) Other Quinolones Allergy (Verified 10/02/20 03:20) Anaphylaxis Medications to take at Discharge Citalopram [Celexa] 40 mg PO DAILY 05/29/15 Tamsulosin HCl [Flomax] 0.8 mg PO DAILY 07/08/16 Gabapentin [Neurontin] 300 - 600 mg PO TID PRN PRN 03/11/18 Isosorbide Mononitrate [Imdur] 30 mg PO DAILY 03/12/18 Insulin Lispro [Humalog KwikPen] 20 unit SQ TIDCM 09/16/18 Atorvastatin Calcium [Lipitor] 40 mg PO DAILY 04/02/20 Insulin Glargine,Hum.rec.anlog [Lantus Solostar] 20 unit SQ BID 04/02/20 Losartan Potassium [Cozaar] 100 mg PO DAILY 04/02/20 Albuterol Inhaler [Ventolin Hfa] 1 puff INHALATION Q6H PRN PRN 10/21/20 Apixaban [Eliquis] 5 mg PO BID 04/11/20 Ferrous Sulfate 325 mg PO BID 04/11/20 Fluticasone 0.05% [Flonase Nasal [place]] 50 mcg NASAL DAILY 04/11/20 Mometason Formoterol 100 mcg INHALATION Q12H PRN 04/11/20 NIFEdipine [Procardia Xl] 60 mg PO DAILY 04/11/20 Nitroglycerin 0.4 mg SL Q5M PRN 04/11/20 Sucralfate [Carafate] 1 gm PO 4X/DAY PRN 04/11/20 Nystatin Powder [Mycostatin Powder] 1 applic TOPICAL 0600,2200 bottle 05/03/20 Pantoprazole Sodium [Protonix] 40 mg PO DAILY #30 tab 05/03/20 Starch [Thick-It] 1 ea PO TID #90 powd.pack 05/07/20 Primary Care Physician: Wili Nelson DO [Primary Care Provider] - Please follow up with your Primary Care Physician in: 1 week Test Results: Test results from this visit will be discussed in further detail at your follow-up appointment, if applicable.
--- NOTE | 2020-10-03 13:49 | PCM.HP.ID ---
Problem List (1) UTI (urinary tract infection) Status: Acute Reason for Consult: uti Consulted by: Dr. Up History of Present Illness: The patient is a 79 year old M with CKD, recurrent uti, presented with weakness at home, unable to get up. Similar sx to prior uti. No fever, no abd pain, no cough or SOB, no dysuria. Has not gotten covid vaccine. Came to ED, started on ceftriaxone, feeling back to normal now. Full ROS performed and neg except as noted above. - Medical History Past Medical History (Chronic Problems): Chronic Problems (Last Reviewed 10/02/20 @ 02:36 by Felicita Vaughn, KALI-C) Diabetes mellitus (Chronic) Pulmonary embolism (Chronic) Hypertension (Chronic) Atrial fibrillation (Chronic) Depression (Chronic) BPH (benign prostatic hyperplasia) (Chronic) Neuropathic pain (Chronic) Coronary artery disease (Chronic) Acute kidney injury superimposed on chronic kidney disease (Chronic) Acute kidney injury superimposed on chronic kidney disease (Chronic) Stage III chronic kidney disease (Chronic) Type 2 diabetes mellitus (Chronic) Paroxysmal atrial fibrillation (Chronic) Right bundle branch block (RBBB) (Chronic) History of pulmonary embolism (Chronic) Essential (primary) hypertension (Chronic) History of loop recorder (Chronic 03/2018) Thromboembolism (Chronic) HLD (hyperlipidemia) (Chronic) Bifascicular bundle branch block (Chronic) Allergies/Adverse Reactions: Allergies MARGIE Inhibitors Allergy (Unknown, Verified 10/02/20 03:20) edema cefepime Allergy (Verified 10/02/20 03:20) weakness and falling WEAKNESS & FALLING ipodate [Ipodate] Allergy (Verified 10/02/20 03:20) Shortness of breath levofloxacin [Levofloxacin] Allergy (Verified 10/02/20 03:20) Anaphylaxis lisinopril Allergy (Verified 10/02/20 03:20) Shortness of breath ofloxacin Allergy (Verified 10/02/20 03:20) Other Quinolones Allergy (Verified 10/02/20 03:20) Anaphylaxis Home Medications: Ambulatory Orders Medication Instructions Recorded Citalopram [Celexa] 40 mg PO DAILY 05/29/15 Tamsulosin HCl [Flomax] 0.8 mg PO DAILY 07/08/16 Gabapentin [Neurontin] 300 - 600 mg PO TID PRN PRN 03/11/18 Isosorbide Mononitrate [Imdur] 30 mg PO DAILY 03/12/18 Insulin Lispro [Humalog KwikPen] 20 unit SQ TIDCM 09/16/18 Atorvastatin Calcium [Lipitor] 40 mg PO DAILY 04/02/20 Insulin Glargine,Hum.rec.anlog 20 unit SQ BID 04/02/20 [Lantus Solostar] Losartan Potassium [Cozaar] 100 mg PO DAILY 04/02/20 Albuterol Inhaler [Ventolin Hfa] 1 puff INHALATION Q6H PRN PRN 04/11/20 Apixaban [Eliquis] 5 mg PO BID 04/11/20 Ferrous Sulfate 325 mg PO BID 04/11/20 Fluticasone 0.05% [Flonase Nasal 50 mcg NASAL DAILY 04/11/20 [place]] Mometason Formoterol 100 mcg INHALATION Q12H PRN 04/11/20 NIFEdipine [Procardia Xl] 60 mg PO DAILY 04/11/20 Nitroglycerin 0.4 mg SL Q5M PRN 04/11/20 Sucralfate [Carafate] 1 gm PO 4X/DAY PRN 04/11/20 Nystatin Powder [Mycostatin Powder] 1 applic TOPICAL 0600,2200 bottle 05/03/20 Pantoprazole Sodium [Protonix] 40 mg PO DAILY #30 tab 05/03/20 Starch [Thick-It] 1 ea PO TID #90 powd.pack 05/07/20 - Social History SMOKING STATUS:: Former smoker Vital Signs Temp Pulse Resp BP Pulse Ox 97.5 F L 62 20 H 174/81 H 97 10/03/20 08:46 10/03/20 11:00 10/03/20 08:46 10/03/20 08:46 10/03/20 08:46 Oxygen Delivery Method Room Air Weight: 153.5 kg Body Mass Index (BMI) 45.8 Finger Stick Blood Glucose 221 Microbiology Past 72 Hours 10/01/20 23:05 Urine Culture - Preliminary Urine, Clean Catch Gram negative cata Laboratory Tests Past 24 Hrs 10/03/20 10/03/20 08:14 08:14 WBC 7.1 RBC 4.46 L Hgb 12.6 L Hct 42.5 MCV 95.3 H MCH 28.3 MCHC 29.6 L D RDW Std Deviation 45.8 H RDW Coeff of Hilary 13.0 Plt Count 240 MPV 10.6 Immature Gran % (Auto) 0.600 Neut % (Auto) 70.0 Lymph % (Auto) 16.5 L [place] % (Auto) 8.0 Eos % (Auto) 4.1 Baso % (Auto) 0.8 Absolute Neuts (auto) 5.0 Absolute Lymphs (auto) 1.17 Nucleated RBC % 0 Sodium 138 Potassium 4.0 Chloride 112 H Carbon Dioxide 21.0 Anion Gap 5 BUN 26 H Creatinine 1.93 H Estim Creat Clear Calc 34.06 Est GFR (MDRD) Af Amer 43 L Est GFR (MDRD) Non-Af 36 L BUN/Creatinine Ratio 13.5 Glucose 119 H Calcium 8.3 L - Other Studies Radiology: [] reviewed Other Studies: [] Route of nutrition/ use of supplements: [] Nutritional Intake: [] IV Site: [] Lane Catheter: [] - Physical Exam General: Alert, Oriented x3, Cooperative, No apparent distress HEENT: Atraumatic, PERRLA, EOMI Lungs: Clear to auscultation, Normal air movement Cardiovascular: Regular rate, Regular Rhythm Abdomen: Soft, Non Tender, Non-Distended, Obese Extremities: Edema Skin: No rashes IV Site: Peripheral, without redness Musculoskeletal: No Tenderness to Palpation of Joints or Extremities Neurological: Cranial nerves II-XII grossly intact - Assessment/Plan Antibiotics: [] Assessment/Plan: [] Active and Suspected Problems (Last Reviewed 10/02/20 @ 02:36 by Felicita Vaughn, ANIMAL HEALTH TECHNICIAN-C) Debility (Acute) Abnormal CT of the abdomen (Acute) GERD (gastroesophageal reflux disease) (Acute) Debility (Acute) Generalized weakness (Acute) UTI (urinary tract infection) (Acute) Bradycardia (Acute) GNR uti - much improved on ceftriaxone. Ok for home with dose of fosfomycin. Recommended he get covid vaccine. Thank you, will follow as needed, d/w Dr. Up
--- NOTE | 2020-10-03 13:56 | CASEMGMT ---
This RN CM to room to discuss discharge planning and pt declines need for any further therapy at this time. Pt voices no further questions/concerns/needs. SStaten RN CM
--- NOTE | 2020-10-03 13:57 | PHA.DC.MR ---
Pharmacy Service has performed discharge medication reconciliation for this patient. The patient's discharge medication list was reviewed for discrepancies and discrepancies were resolved. Home Medications Citalopram [Celexa] 40 mg PO DAILY 05/29/15 Tamsulosin HCl [Flomax] 0.8 mg PO DAILY 07/08/16 Gabapentin [Neurontin] 300 - 600 mg PO TID PRN PRN 03/11/18 Isosorbide Mononitrate [Imdur] 30 mg PO DAILY 03/12/18 Insulin Lispro [Humalog KwikPen] 20 unit SQ TIDCM 09/16/18 Atorvastatin Calcium [Lipitor] 40 mg PO DAILY 04/02/20 Insulin Glargine,Hum.rec.anlog [Lantus Solostar] 20 unit SQ BID 04/02/20 Losartan Potassium [Cozaar] 100 mg PO DAILY 04/02/20 Albuterol Inhaler [Ventolin Hfa] 1 puff INHALATION Q6H PRN PRN 04/11/20 Apixaban [Eliquis] 5 mg PO BID 04/11/20 Ferrous Sulfate 325 mg PO BID 04/11/20 Fluticasone 0.05% [Flonase Nasal [place]] 50 mcg NASAL DAILY 04/11/20 Mometason Formoterol 100 mcg INHALATION Q12H PRN 04/11/20 NIFEdipine [Procardia Xl] 60 mg PO DAILY 04/11/20 Nitroglycerin 0.4 mg SL Q5M PRN 04/11/20 Sucralfate [Carafate] 1 gm PO 4X/DAY PRN 04/11/20 Nystatin Powder [Mycostatin Powder] 1 applic TOPICAL 0600,2200 bottle 05/03/20 Pantoprazole Sodium [Protonix] 40 mg PO DAILY #30 tab 05/03/20 Starch [Thick-It] 1 ea PO TID #90 powd.pack 05/07/20
--- NOTE | 2020-10-03 14:09 | PCM.DC.SUM ---
Discharge Date and Diagnosis - Problem List Patient Problems: Active and Suspected Problems (Last Reviewed 10/02/20 @ 02:36 by BETTYE Loza) Debility (Acute) Abnormal CT of the abdomen (Acute) GERD (gastroesophageal reflux disease) (Acute) Debility (Acute) Generalized weakness (Acute) UTI (urinary tract infection) (Acute) Bradycardia (Acute) Date of Admission: 10/02/20 Date of Discharge: 10/03/20 - Primary Discharge Diagnosis Acute Problems: Active Problems (Last Reviewed 10/02/20 @ 02:36 by BETTYE Loza) Debility (Acute) Abnormal CT of the abdomen (Acute) GERD (gastroesophageal reflux disease) (Acute) Debility (Acute) Generalized weakness (Acute) UTI (urinary tract infection) (Acute) Bradycardia (Acute) - Secondary Discharge Diagnosis Chronic Problems: Chronic Problems (Last Reviewed 10/02/20 @ 02:36 by BETTYE Loza) Diabetes mellitus (Chronic) Pulmonary embolism (Chronic) Hypertension (Chronic) Atrial fibrillation (Chronic) Depression (Chronic) BPH (benign prostatic hyperplasia) (Chronic) Neuropathic pain (Chronic) Coronary artery disease (Chronic) Acute kidney injury superimposed on chronic kidney disease (Chronic) Acute kidney injury superimposed on chronic kidney disease (Chronic) Stage III chronic kidney disease (Chronic) Type 2 diabetes mellitus (Chronic) Paroxysmal atrial fibrillation (Chronic) Right bundle branch block (RBBB) (Chronic) History of pulmonary embolism (Chronic) Essential (primary) hypertension (Chronic) History of loop recorder (Chronic 03/2018) Thromboembolism (Chronic) HLD (hyperlipidemia) (Chronic) Bifascicular bundle branch block (Chronic) Hospital Course and Treatment Imaging Results: STUDY: CT ABDOMEN AND PELVIS WITHOUT CONTRAST REASON FOR EXAM: Male, 79 years old. Epigastric/ RUQ pain RADIATION DOSAGE (If Supplied By Facility): CTDIvol = ( 24.17 ) mGy, DLP = ( 1310.39 ) mGycm TECHNIQUE: Transaxial images were obtained from the dome of the diaphragm to the symphysis pubis without oral contrast, and without intravenous contrast. Sagittal and coronal images were reconstructed. Individualized dose optimization techniques were used for this CT. COMPARISON: July 30, 2019 CT abdomen and pelvis with contrast FINDINGS: There is persistent bilateral lower lobe atelectasis and/or fibrotic change. There is mild cardiac enlargement. Normal liver. Gallbladder appears slightly hyperdense and its contents. Normal spleen. Normal pancreas. There is a stable minimally thickened appearance of the left adrenal gland. The right adrenal gland appears normal. There is a question of mild right renal atrophy. There is a cyst right kidney measuring 4.5 x 4.2 cm with Hounsfield units in the range of simple fluid. There is a exophytic right renal cyst stable since prior study with slightly hyperdense appearance measuring 1.8 x 1.8 cm. There is a parenchymal calcification right kidney measuring 8.5 mm. There is no visualized hydronephrosis. There is a mildly lobulated appearance of the left kidney. Findings are suggestive of multiple cyst is seen on the prior contrasted study. The visualized exophytic cystic structure measuring 1.2 cm. Adjacent to the aorta are multiple small lymph nodes within the periaortic fat measuring up to 1.3 cm. This is also seen on the prior study. There are tortuous loops of colon. There is a narrowed decompressed appearance of the proximal sigmoid. There are a few diverticula present without evidence of diverticulitis. There is a gassy appearance of the transverse colon. There is minimal distention of the small bowel. There is moderate stool within the cecum. The appendix is partially visualized and appears diminutive. The aorta is partially calcified. Normal inferior vena cava. Multiple small nonspecific subcentimeter retroperitoneal lymph nodes. The bladder is decompressed as well as thickened and stranding appearance similar to the prior study. There are calcifications in the normal sized prostate. There is a left-sided fatty inguinal hernia. Normal abdominal wall. There is an inhomogeneous appearance of the bony structures. There is a sclerotic appearance appearance of T11-T12 with worsening appearing degenerative change at the level of T11-T12. L1 through the sacrum appear osteopenic. There is multilevel degenerative disc disease. Degenerative change of the SI joints and both hip joints. There is a stable sclerotic density within the left ilium. CT/Abdomen/Pelvis without Cont IMPRESSION: Mild to moderate constipation tortuosity of the bowel diverticulosis without visualized diverticulitis. Could consider colonic ileus. Slightly hyperdense appearance of the gallbladder and its contents which may represent sludge or stones. Could consider follow-up ultrasound. No appendicitis. Abnormal bladder wall. There is abnormal thickening and inhomogeneity suspicious for cystitis. Bilateral renal cysts similar to prior study. No hydronephrosis. Lower lobe atelectasis and/or scarring. Reactive Atypical appearing lymph nodes adjacent to the aorta within the chest similar to the prior study. Degenerative changes of the thoracolumbar spine. Focal sclerotic appearance of T11 and T12 similar to the prior studies recommend correlation with clinical history of trauma potentially radiation or potentially metastatic disease. Recommend, Follow-up study such as bone scan or MRI. CLINICAL: Male, [address] -- possible metastatic disease at T11-T12 -- No history of Cancer -- Patient fell a couple days ago-states he did not injure back WHOLE BODY NUCLEAR BONE SCAN TECHNIQUE: Following the IV administration of 27.8 mCi of Tc MDP, whole body bone imaging was performed with a gamma camera following a three hour delay. COMPARISON STUDIES : NM - None. CR - Not available for review at this time. CT - earlier today MR - Not available for review at this time. US - Not available for review at this time. FINDINGS: Normal uptake rate from school throughout the majority of the bony skeleton. Focally increased uptake at the thoracolumbar spine corresponding to the areas of sclerosis within the T11 and T12 vertebral bodies but no other areas of increased uptake to suggest metastatic disease. Findings are likely to represent focal degenerative disc disease with extensive endplate sclerosis at T11/T12. Some increased uptake in both knee joints consistent with arthrosis. Normal concentration ray from school by the kidneys with excretion into the bladder. NM/Bone Scan Whole Body IMPRESSION: No scintigraphic evidence metastatic disease. Increased uptake at the site of sclerosis at T11/T12 likely secondary to degenerative disc disease with extensive endplate sclerosis. Operations: None Procedures: None Summary of Care Provided: Mr. Louis is a 79 year old WM with a past medical history of CKD stage IIIb, constipation, debility with bilateral lower extremity weakness, COPD, history of pulmonary embolism, DM-2, diabetic neuropathy, diabetic nephropathy, bilateral lower extremity edema, morbid obesity, GERD, BPH, COPD, hypertension, hyperlipidemia, and NILO who was admitted [facility] on 10/02/2020 after sustaining a fall x1 at home earlier that day. He reports that he was walking in his knees just gave out on him. He was also complaining of some nonspecific epigastric pain at the time of admission as well. A chest x-ray was performed and showed no acute changes. A CT of his abdomen pelvis was done for his epigastric pain and showed changes consistent with cystitis but no hydronephrosis was noted. Additionally, on the CT a focal sclerotic appearance of T11 and T12 that was concerning for trauma, metastatic disease, or history of radiation was noted and a follow-up bone scan or MRI was recommended. He was admitted to the medical floor and placed on ceftriaxone, IV fluids for MARLON that was present on admission and a bone scan was ordered. His urine culture results showed a gram-negative cata with greater than 100,000 CFU's per mL and given his antibiotic allergies and history of resistance with previous pathogens infectious disease was consulted. They felt since he clinically improved with ceftriaxone that and initial dose of fosfomycin prior to discharge would be adequate for treatment completion. His serum creatinine trended back to baseline and was 1.93 on discharge. His baseline creatinine appears to be 1.7-2. His bone scan showed no evidence of metastatic disease but did show increased uptake at the sites of sclerosis that were felt likely secondary to degenerative disc disease with extensive endplate sclerosis. He is also noted to be persistently bradycardic during his hospitalization and therefore his metoprolol was discontinued. It appears that this may have been a chronic issue with him. His vitamin D level was assessed and was 9.8 he was therefore started on ergocalciferol 50,000 units weekly for 6 weeks. He will need to follow-up vitamin D level at the end of his treatment. He was seen by physical therapy and Occupational Therapy during his admission. They did recommend ambulation with an assistive device at home. He was discharged home in stable condition with instructions to follow-up with his PCP within 1 week from discharge. Discharge diagnoses [] Acute complicated cystitis Bradycardia MARLON -resolved CKD stage IIIb Constipation Debility with bilateral lower extremity weakness COPD History of pulmonary embolism Hypotension-resolved DM-2 Diabetic neuropathy Diabetic nephropathy Abnormal CT of the abdomen Bilateral lower extremity edema Morbid obesity GERD BPH COPD Hypertension Hyperlipidemia NILO Discharge time greater than 35 minutes Patient Problems: Active and Suspected Problems (Last Reviewed 10/02/20 @ 02:36 by Felicita Vaughn, ASSISTANT PROFESSOR OF DIETETICS-C) Debility (Acute) Abnormal CT of the abdomen (Acute) GERD (gastroesophageal reflux disease) (Acute) Debility (Acute) Generalized weakness (Acute) UTI (urinary tract infection) (Acute) Bradycardia (Acute) Subjective: Notes he is feeling much better. Has no current complaints. - Physical Exam Vitals/I&O's: Vital Signs Temp Pulse Resp BP Pulse Ox 97.5 F L 62 20 H 174/81 H 97 10/03/20 08:46 10/03/20 11:00 10/03/20 08:46 10/03/20 08:46 10/03/20 08:46 Oxygen Delivery Method Room Air Weight: 153.5 kg Body Mass Index (BMI) 45.8 Finger Stick Blood Glucose 221 Intake and Output for Last 24 Hours 10/01/20 10/02/20 10/03/20 23:59 23:59 23:59 Intake Total 2822.17 / 2822.17 2095.00 / 2095.00 Output Total 1535 / 1535 1950 / 1950 Balance 1287.17 / 1287.17 145.00 / 145.00 General: Alert, Oriented x3, Cooperative, No apparent distress, Well developed, Well nourished, - - Obese elderly white male sitting up in a chair next to bedside, watching television, nursing at bedside, nontoxic, appears well HEENT: Atraumatic, PERRLA, EOMI, Normocephalic, EAC Clear Oral: Moist Mucosa, No Gingival or Mucosal Lesions/ Ulcerations, - - Mallampati 3 Neck: Supple, Trachea Midline, Thyroid Normal Size and Texture Lungs: Clear to auscultation, Normal air movement, No rhonchi, No wheeze, No rales Cardiovascular: Regular rate, Regular Rhythm, Normal S1, Normal S2, No murmurs, No Ectopic Activity, No rub noted, No Gallop Abdomen: Bowel Sounds Present, Soft, Non Tender, Non-Distended, Obese Extremities: No clubbing, No cyanosis, Capillary Refill Less than 3 Seconds, Edema - Chronic bilateral lower extremity edema secondary to venous stasis, Peripheral Pulses Normal Skin: No rashes, No breakdown, - - Lateral lower extremity skin changes consistent with chronic venous stasis Musculoskeletal: No Tenderness to Palpation of Joints or Extremities, No Muscle Wasting, Arthritic Changes Lymphatic: No Cervical, Supraclavicular, or Inguinal Adenopathy Neurological: Cranial nerves II-XII grossly intact, Neuro grossly intact, Muscle tone normal, Coordination normal Psych/Mental Status: Appropriate, Flat Affect Microbiology Past 72 Hours 10/01/20 23:05 Urine, Clean Catch Urine Culture - Preliminary Gram negative cata Laboratory Results 10/02/20 15:56: POC Glucose 113 H 10/02/20 21:57: POC Glucose 111 H 10/03/20 06:38: POC Glucose 126 H 10/03/20 08:14: WBC 7.1, RBC 4.46 L, Hgb 12.6 L, Hct 42.5, MCV 95.3 H, MCH 28.3, MCHC 29.6 L D, RDW Std Deviation 45.8 H, RDW Coeff of Hilary 13.0, Plt Count 240, MPV 10.6, Immature Gran % (Auto) 0.600, Neut % (Auto) 70.0, Lymph % (Auto) 16.5 L, [place] % (Auto) 8.0, Eos % (Auto) 4.1, Baso % (Auto) 0.8, Absolute Neuts (auto) 5.0, Absolute Lymphs (auto) 1.17, Nucleated RBC % 0 10/03/20 08:14: Sodium 138, Potassium 4.0, Chloride 112 H, Carbon Dioxide 21.0, Anion Gap 5, BUN 26 H, Creatinine 1.93 H, Estim Creat Clear Calc 34.06, Est GFR (MDRD) Af Amer 43 L, Est GFR (MDRD) Non-Af 36 L, BUN/Creatinine Ratio 13.5, Glucose 119 H, Calcium 8.3 L 10/03/20 08:42: POC Glucose 125 H 10/03/20 11:07: POC Glucose 183 H Current Medications Acetaminophen (Acetaminophen 325 Mg Tablet) 650 mg PO Q6H PRN PRN PRN Reason: Pain Score 1-10/Temp > 100.7 F Amlodipine Besylate (Amlodipine 10 Mg Tablet) 10 mg PO DAILY [facility] Apixaban (Apixaban 5 Mg Tablet) 5 mg PO BID [facility] Last Admin: 10/03/20 08:56 Dose: 5 mg Documented by: Atorvastatin Calcium (Atorvastatin Calcium 40 Mg Tablet) 40 mg PO DAILY@2200 [facility] Last Admin: 10/02/20 22:06 Dose: 40 mg Documented by: Citalopram Hydrobromide (Citalopram 40 Mg Tablet) 40 mg PO DAILY [facility] Last Admin: 10/03/20 08:56 Dose: 40 mg Documented by: Ergocalciferol (Ergocalciferol 50,000 Unit Capsule) 50,000 unit PO Q7D [facility] Stop: 11/06/20 17:01 Last Admin: 10/02/20 18:23 Dose: 50,000 unit Documented by: Ferrous Sulfate (Ferrous Sulfate 325 Mg Tablet) 325 mg PO BIDCM [facility] Last Admin: 10/03/20 08:55 Dose: 325 mg Documented by: Fluticasone Propionate (Fluticasone 0.05% [address] [place] Nasal.Sry) 2 spray NASAL DAILY [facility] Last Admin: 10/03/20 08:57 Dose: 2 spray Documented by: Gabapentin (Gabapentin 100 Mg Capsule) 100 mg PO TID PRN PRN PRN Reason: nerve pain Last Admin: 10/02/20 22:11 Dose: 100 mg Documented by: Sodium Chloride () 250 mls @ 15 mls/hr IV .[id number] PRN PRN Reason: Saline Flush Last Infusion: 10/02/20 23:40 Dose: 0 mls/hr Documented by: Sodium Chloride () 250 mls @ 15 mls/hr IV .[id number] PRN PRN Reason: Additional IVPB Infusion Ceftriaxone Sodium (Rocephin) 1 gm in 50 mls @ 100 mls/hr IV Q24H [facility] Last Infusion: 10/02/20 23:39 Dose: Infused Documented by: Lactated Ringer's () 1,000 mls @ 100 mls/hr IV .Q10H [facility] Last Admin: 10/03/20 12:43 Dose: 100 mls/hr Documented by: Insulin Glargine (Insulin Glargine 100 Units/Ml Pen) 20 units SC BID [facility] Last Admin: 10/03/20 08:58 Dose: 20 u Documented by: Insulin Human Lispro (Insulin Lispro 100 Unit/Ml Insuln.Pen) 0 unit SC ACHS [facility]; Protocol Last Admin: 10/03/20 12:38 Dose: 1 u Documented by: Insulin Human Lispro (Insulin Lispro 100 Unit/Ml Insuln.Pen) 12 unit SC TIDCM [facility] Last Admin: 10/03/20 12:38 Dose: 12 units Documented by: Nystatin (Nystatin Powder 15gm Bottle) 1 applic TOPICAL 0600,2200 [facility]; Protocol Last Admin: 10/03/20 06:43 Dose: 1 applic Documented by: Ondansetron HCl (Ondansetron 4 Mg/2 Ml Vial) 4 mg IV Q8H PRN PRN PRN Reason: NAUSEA/VOMITING Oxycodone HCl (Oxycodone 5 Mg Tablet) 5 mg PO Q4H PRN PRN PRN Reason: Pain Score 4-10 Pantoprazole Sodium (Pantoprazole Sodium 40 Mg Tablet) 40 mg PO DAILY [facility] Last Admin: 10/03/20 08:56 Dose: 40 mg Documented by: Sodium Chloride (0.9% Saline Lock 10 Ml Syringe) 10 - 40 ml IV UD PRN PRN Reason: SALINE FLUSH Last Admin: 10/02/20 22:04 Dose: 10 ml Documented by: Sucralfate (Sucralfate 1 Gm Tablet) 1 gm PO 1HR_ACHS PRN PRN Reason: stomach Tamsulosin HCl (Tamsulosin Hcl 0.4 Mg Capsule) 0.8 mg PO DAILY@1730 [facility] Last Admin: 10/02/20 16:44 Dose: 0.8 mg Documented by: Discharge Activity: Return to Normal Activity, No Restrictions Home Medications: Medications to take at Discharge Citalopram [Celexa] 40 mg PO DAILY 05/29/15 Tamsulosin HCl [Flomax] 0.8 mg PO DAILY 07/08/16 Gabapentin [Neurontin] 300 - 600 mg PO TID PRN PRN 03/11/18 Isosorbide Mononitrate [Imdur] 30 mg PO DAILY 03/12/18 Insulin Lispro [Humalog KwikPen] 20 unit SQ TIDCM 09/16/18 Atorvastatin Calcium [Lipitor] 40 mg PO DAILY 04/02/20 Insulin Glargine,Hum.rec.anlog [Lantus Solostar] 20 unit SQ BID 04/02/20 Losartan Potassium [Cozaar] 100 mg PO DAILY 04/02/20 Albuterol Inhaler [Ventolin Hfa] 1 puff INHALATION Q6H PRN PRN 04/11/20 Apixaban [Eliquis] 5 mg PO BID 04/11/20 Ferrous Sulfate 325 mg PO BID 04/11/20 Fluticasone 0.05% [Flonase Nasal [place]] 50 mcg NASAL DAILY 04/11/20 Mometason Formoterol 100 mcg INHALATION Q12H PRN 04/11/20 NIFEdipine [Procardia Xl] 60 mg PO DAILY 04/11/20 Nitroglycerin 0.4 mg SL Q5M PRN 04/11/20 Sucralfate [Carafate] 1 gm PO 4X/DAY PRN 04/11/20 Nystatin Powder [Mycostatin Powder] 1 applic TOPICAL 0600,2200 bottle 05/03/20 Pantoprazole Sodium [Protonix] 40 mg PO DAILY #30 tab 05/03/20 Starch [Thick-It] 1 ea PO TID #90 powd.pack 05/07/20 Primary Care Physician: Wili Nelson DO [Primary Care Provider] - Please follow up with your Primary Care Physician in: 1 week Please Follow Up With: Wili Nelson DO Medical Necessity - Tobacco Use Smoking Status: Former smoker Meaningful Use Info Meaningful Use Diagnoses (Choose all that apply): None applicable Inpatient E&M: 98794 [facility]
--- NOTE | 2020-10-03 14:20 | CASEMGMT ---
Pt does qualify for IP palliative referral and Dr. Up aware. Referral not made d/t pt up for discharge. Kirit ELKINS CM
[2020-10-03] MEDS: amLODIPine 10 MG Tablet PO (14:55)
[2020-10-03] MEDS: FOSFOMYCIN TROMETHAMINE 3 GM PACKET PO (14:56)
--- NOTE | 2020-10-04 15:17 | CASEMGMT ---
BRITTNI CM Discharge F/U Phone Call LACE: 11 Strata: 3 Discharge date: 10/03/20 Call date: 10/04/20 Call time: [phone] Attempted to reach pt without success and pt's voicemail box is full and unable to accept any messages. CM to try again later. SStaten RN CM Admission dx: Weakness, marcelo
--- NOTE | 2020-10-05 10:34 | CASEMGMT ---
BRITTNI CM Discharge F/U Phone Call: LACIrving: 11. Strata: 3 Discharge date: 10/03/20 Admission dx: Weakness, bradycardia Attempted to reach pt again without success. Pt's voicemail box is full and unable to accept any messages. Birgit BSN RN CM
== END 2020-10-03 16:18 | disposition home or self-care (01) | DRG 683 ==
LOC: ED 10-02 02:08 → PCU 10-02 02:45
PROVIDERS: Nurse Practitioner Family; Admitting Provider Hospitalist; Emergency Provider Emergency Medicine; PCP Family Medicine; Visit Provider Internal Medicine
DX: N17.9 Acute kidney failure, unspecified (principal); N30.00 Acute cystitis without hematuria; Z68.42 Body mass index [BMI] 45.0-49.9, adult; R00.1 Bradycardia, unspecified; N18.32 Chronic kidney disease, stage 3b; K59.00 Constipation, unspecified; R53.1 Weakness; R53.81 Other malaise; J44.9 Chronic obstructive pulmonary disease, unspecified; Z86.711 Personal history of pulmonary embolism; I95.9 Hypotension, unspecified; E11.40 Type 2 diabetes mellitus with diabetic neuropathy, unspecified; R60.0 Localized edema; E66.01 Morbid (severe) obesity due to excess calories; K21.9 Gastro-esophageal reflux disease without esophagitis; N40.0 Benign prostatic hyperplasia without lower urinary tract symptoms; I12.9 Hypertensive chronic kidney disease with stage 1 through stage 4 chronic kidney disease, or unspecified chronic kidney disease; E78.5 Hyperlipidemia, unspecified; G47.33 Obstructive sleep apnea (adult) (pediatric); R93.5 Abnormal findings on diagnostic imaging of other abdominal regions, including retroperitoneum; Z79.02 Long term (current) use of antithrombotics/antiplatelets; Z87.891 Personal history of nicotine dependence; Z79.4 Long term (current) use of insulin; Z79.899 Other long term (current) drug therapy; F32.9 Major depressive disorder, single episode, unspecified; I48.0 Paroxysmal atrial fibrillation; E11.65 Type 2 diabetes mellitus with hyperglycemia; E11.22 Type 2 diabetes mellitus with diabetic chronic kidney disease; F41.9 Anxiety disorder, unspecified; Z86.718 Personal history of other venous thrombosis and embolism
CPT/HCPCS: 36415; 71045; 74176; 78306; 80048; 80053; 81001; 82306; 82607; 82962; 83605; 83690; 84484; 85025; 87077; 87086; 87088; 87186; 93005; 97110; 97162; 97166; 97530; 97535; 97802; 99285; J7030; J7050; J7120; A4216

== ENCOUNTER 2020-12-02 10:37 | Inpatient (IN) | payer MEDICARE, OTHER, SELFPAY ==
[2020-10-02 03:21] VITALS: BMI 45.8
[2020-12-02 10:40] VITALS: BP 133/83; PULSE 78; RESP 18; TEMP 36.9; O2SAT 94; BMI 45.6
--- NOTE | 2020-12-02 10:48 | EDS_ITS ---
HPI History of Present Illness Chief Complaint: Upper Extremity Injury Informant: patient Narrative Narrative: Patient is an 80-year-old male who presents to the emergency department for fall off the toilet today. He previously broke his left humerus and is in a sling. He feels new pain from the fall today. No other injury noted. This is patient's second fall over the past week. He is on anticoagulation with a history of atrial fibrillation. He denies hitting his head or losing consciousness. No neck or back pain. No chest pain or shortness of breath. No abdominal pain. No injury to other extremities. Patient has been taking his home pain medication and this has not been giving him significant relief. Likely pain is in the left shoulder. He denies any weakness or loss of sensation going down the arm into the hand. [facility] Medical History (Updated 12/02/20 @ 12:[address] Love Christine MD) Acute blood loss anemia MARLON (acute kidney injury) Bifascicular bundle branch block BPH (benign prostatic hyperplasia) Chronic renal failure, stage 3 (moderate) Colon polyps COPD (chronic obstructive pulmonary disease) Duodenal ulcer Essential (primary) hypertension Family history of colon cancer History of depression History of other venous thrombosis and embolism History of pulmonary embolism HLD (hyperlipidemia) Hypotension Noncompliance NILO (obstructive sleep apnea) Right bundle branch block (RBBB) Super obesity Type II diabetes mellitus, uncontrolled Home Medications citalopram 40 mg PO DAILY 05/29/15 [History Last Taken 07/30/19 09:00] tamsulosin 0.8 mg PO DAILY 07/08/16 [History Last Taken 07/29/19 21:00] gabapentin 300 - 600 mg PO TID PRN PRN 03/11/18 [History Last Taken 07/29/19 21:00] isosorbide mononitrate 30 mg PO DAILY 03/12/18 [History Last Taken 07/30/19 09:00] insulin lispro 20 unit SQ TIDCM 09/16/18 [History Last Taken 07/29/19] atorvastatin 40 mg PO DAILY 04/02/20 [History Last Taken Unknown] insulin glargine 20 unit SQ BID 04/02/20 [History Last Taken Unknown] losartan 100 mg PO DAILY 04/02/20 [History Last Taken Unknown] Mometason Formoterol 100 mcg INHALATION Q12H PRN 04/11/20 [History Last Taken Unknown] albuterol sulfate 1 puff INHALATION Q6H PRN PRN 04/11/20 [History Last Taken Unknown] apixaban 5 mg PO BID 04/11/20 [History Last Taken Unknown] ferrous sulfate 325 mg PO BID 04/11/20 [History Last Taken Unknown] fluticasone propionate 50 mcg NASAL DAILY 04/11/20 [History Last Taken Unknown] nifedipine 60 mg PO DAILY 04/11/20 [History Last Taken Unknown] nitroglycerin 0.4 mg SL Q5M PRN 04/11/20 [History Last Taken Unknown] sucralfate 1 gm PO 4X/DAY PRN 04/11/20 [History Last Taken Unknown] nystatin 1 applic TOPICAL 0600,2200 12/02/20 [History Last Taken Unknown] pantoprazole 40 mg PO DAILY 12/02/20 [History Last Taken Unknown] Allergy/AdvReac Type Severity Reaction Status Date / Time MARGIE Inhibitors Allergy Unknown edema Verified 10/02/20 03:20 cefepime Allergy weakness Verified 10/02/20 03:20 and falling ipodate [Ipodate] Allergy Shortness Verified 10/02/20 03:20 of breath levofloxacin [Levofloxacin] Allergy Anaphylaxis Verified 10/02/20 03:20 lisinopril Allergy Shortness Verified 10/02/20 03:20 of breath ofloxacin Allergy Other Verified 10/02/20 03:20 Quinolones Allergy Anaphylaxis Verified 10/02/20 03:20 Family History Father Colon cancer Mother Cancer Sister CAD (coronary artery disease) Surgical History History of esophagogastroduodenoscopy (EGD) History of left heart catheterization (07/11/19) History of loop recorder (03/2018) Social History Smoking Status: Former smoker quit date: 06/22/07 how long ago did patient quit smoking: cigars, smoked 2 a day, quit in 2007 ROS ROS ED Constitutional Constitutional ED: Denies chills or fever(s) Eyes Eyes: Denies change in vision ENT ENT ED: Denies epistaxis Cardiovascular Cardiovascular: Denies chest pain or palpitations Respiratory/Chest Respiratory/Chest: Denies cough, dyspnea or dyspnea on exertion Gastrointestinal Gastrointestinal: Denies abdominal pain, nausea or vomiting Musculoskeletal Musculoskeletal: Reports other Details: Left shoulder pain ; Denies back pain or neck pain Integumentary Denies rash Neurologic Neurologic: Denies dizziness, headache(s) or weakness EXAM Physical Exam Const Positive well developed General Appearance ED: well developed and NAD HEENT Reports normocephalic, head/scalp atraumatic and moist mucous membranes Eyes PERRL and EOMs intact bilaterally Neck supple General: Negative for tenderness Chest Wall inspection of chest normal Resp normal respiratory effort and clear to auscultation bilaterally Resp Narrative: Coarse breath sounds throughout Auscultation: Negative for rales or wheezes Cardio regular rate, regular rhythm and no murmurs GI normal to inspection, nondistended, normoactive bowel sounds and non-tender Palpation: soft; Negative for guarding or rebound tenderness present Back/Spine Back/Spine Narrative: No spine tenderness or step-off sign. Extremity Extremity Narrative: Tenderness to palpation mostly over the anterior left shoulder. Left arm is in a sling. Has 2+ radial pulse. Good food management aide strength. General Extremety ED: Negative for edema or tenderness General Extremity: Negative for edema Neuro CN's II-XII intact bilaterally and no sensory deficits noted Sensorium / Orientation: alert Motor Exam: strength 5/5 throughout Skin no rashes or lesions noted MDM MDM MDM Narrative Medical decision making narrative: Patient presents to the emergency department for fall and reinjury to his left shoulder. He is in a sling for humerus fracture. This occurred 1 week ago. The fall was this morning. No other injury noted. Will recheck x-ray. Patient does live at home. He does state his sister helps take care of him but he may benefit from rehab stay as he usually uses a walker to get around which has been difficult with his arm in a sling. Will consult social work. I did speak with the patient's sister who he is currently residing with. She feels like he is not safe to go home. Patient is agreeable with rehab placement. We did speak with social work who recommended to bring into the hospital as they would not build to place her home from the emergency department. Will check basic lab work. Patient otherwise has no other complaints. Will check basic lab work as patient will be coming into the hospital. Radiography Diagnostic Testing: Single view portable chest x-ray did not reveal an acute car diopulmonary abnormality. No evidence of pneumonia. His shoulder x-ray showed acute comminuted impacted right proximal humerus fracture. Agree with radiologist interpretations. Discharge Plan Dx/Rx/DC Orders Clinical Impression: Fracture of proximal end of humerus Disposition Disposition: Acute Care Hospital [facility]
--- NOTE | 2020-12-02 11:05 | RAD_ITS ---
STUDY: X-RAY CHEST REASON FOR EXAM: Male, 80 years old. Fall, injury TECHNIQUE: Single AP portable view of the chest. COMPARISON: 10/01/2020 FINDINGS: Insertable ekg monitor tech. The lungs are clear and expanded. There is no demonstrated pleural abnormality. Normal size heart. Normal mediastinum and denys. Normal visualized pulmonary arteries. Normal visualized aortic arch and descending thoracic aorta. Normal visualized thoracic spine. Normal visualized ribs, clavicles, and shoulders. There is no demonstrated abnormality of the visualized soft tissue structures of the upper abdomen. RAD/Chest 1 View (Portable) IMPRESSION: Normal x-ray examination of the chest. Electronically Signed: Maxwell Cerda MD at 11:49 EDT Tel , Service support ,
--- NOTE | 2020-12-02 11:05 | RAD_ITS ---
STUDY: X-RAY - LEFT SHOULDER REASON FOR EXAM: Male, 80 years old. Previous fracture, fall with new pain TECHNIQUE: 3 view(s) of the shoulder. COMPARISON: 09/23/2018 FINDINGS: Normal glenohumeral articulation. Normal acromioclavicular joint. Normal acromion. Acute comminuted impacted fracture of the left humeral head and neck. The soft tissue structures are unremarkable. Normal visualized pulmonary apex. RAD/Shoulder min 2 Views IMPRESSION: Acute comminuted impacted fracture the left humeral head and neck. Electronically Signed: Maxwell Cerda MD at 11:38 EDT Tel , Service support ,
--- NOTE | 2020-12-02 11:37 | ED.RN ---
CALLED PT'S DAUGHTER AND WAITING TO HEAR BACK FROM SISTER WHICH IS PT'S CAREGIVER AT HOME. DAUGHTER AGREES THAT PT MAY NOT BE SAFE TO GO BACK HOME D/T VERY LIMITED MOBILITY NOW WITH SHOULDER FX. MESSAGE LEFT WITH CM.
[2020-12-02 12:40] LABS: Absolute Lymphocyte Count 0.88 X10^3/uL (0.83-4.51); Absolute Neutrophil Count 6.8 X10^3/uL (2.0-7.7); Basophil# 0.05 X10^3/uL; Basophil% 0.6 % (0-1); Eosinophil# 0.41 X10^3/uL; Eosinophils% 4.6 % (0-5); Hematocrit 40.5 % (40-54); Hemoglobin 12.8 g/dL (13.0-16.5); Lymphocyte # 0.88 X10^3/ul (0.83-4.51); Lymphocyte % 9.9 % (19-41); Mean Corp Hgb Conc 31.6 g/dL (32-36); Mean Corpuscular Hgb 28.1 pg (27.0-32.0); Mean Platelet Vol. 9.8 fl (6.2-12.0); Monocyte# 0.77 X10^3/uL; Monocyte% 8.6 % (0-10); NRBC Flagged by Analyzer 0 % (0-5); Neutrophil # 6.77 X10^3/uL (2.7-7.7); Neutrophil % 75.9 % (47-70); Platelet Count 239 K/mm3 (150-450); RBC Distribution Width SD 42.5 fl (35.1-43.9); Red Blood Count 4.55 M/mm3 (4.6-6.2); White Blood Count 8.9 K/mm3 (4.4-11.0)
[2020-12-02 12:53] LABS: Anion Gap 8 (5-15); BUN 30 mg/dL (7-18); BUN/Creat Ratio 12.4 RATIO (10-20); Calcium,Total 8.5 mg/dL (8.5-10.1); Chloride 102 mmol/L (98-107); Creatinine, Serum 2.42 mg/dL (0.70-1.30); EST Glomerular Filtration Rate 28 mL/min (>60); Est Glom Filt Rate - Afr Amer 33 mL/min (>60); Estimated Creatinine Clearance 26.72 ml/min; Glucose 217 mg/dL (74-106); Potassium 4.3 mmol/L (3.5-5.1); Sodium Level 137 mmol/L (136-145)
[2020-12-02 13:04] VITALS: BP 107/60; PULSE 76; RESP 19; TEMP 36.9; O2SAT 97
[2020-12-02 13:09] VITALS: BP 150/68; PULSE 66; RESP 16; O2SAT 97
[2020-12-02] MEDS: Morphine 4 MG/ML Syringe IV (13:40)
--- NOTE | 2020-12-02 13:57 | HP.PCM.HOS_ITS ---
[facility] - General General Date of Admission: 12/02/20 Date of Service: 12/02/20 Chief Complaint: Fall. [facility] Narrative WADE HERNANDEZ, is a 80 M with past medical history as mentioned below presented to the emergency room because of fall. Today, patient was in the bathroom and tried to stand up and he had a fall off the toilet. He had no significant trauma today but he was not able to get up. 3 days ago, he had another fall and he went to [facility] ER, found to have left humerus fracture, was put in a sling and he was discharged home. Patient has been having difficulties ambulating and frequent falls at home. Currently, he denies any significant left upper extremity pain. Denies dizziness or lightheadedness. Denied chest pain or shortness of breath. He has history of paroxysmal atrial fibrillation, not taking any medication for rate control and according to the patient, he was taken off Eliquis because of GI bleed. Heart rate has been stable in the ED. He had a history of type 2 diabetes mellitus, has been on Lantus twice daily as well as premeal Humalog and his blood glucose has been under fair control. He has history of stage IIIb chronic kidney disease, baseline creatinine has been around 1.5 to 2.4 mg/dL and it has been stable. In the emergency department, his vital signs were stable. Routine blood work was remarkable for hemoglobin of 12.8 g/dL which is chronic, BUN is 30, creatinine is 2.42. Chest x-ray showed no acute findings. X-ray of the left humerus that showed acute comminuted impacted fracture of the left humeral head and neck. Patient is being admitted for left humeral fracture, debility and frequent falls and he will need placement to long term facility. [facility] Medical History (Updated 12/02/20 @ 12:[address] Love Christine MD) Acute blood loss anemia MARLON (acute kidney injury) Bifascicular bundle branch block BPH (benign prostatic hyperplasia) Chronic renal failure, stage 3 (moderate) Colon polyps COPD (chronic obstructive pulmonary disease) Duodenal ulcer Essential (primary) hypertension Family history of colon cancer History of depression History of other venous thrombosis and embolism History of pulmonary embolism HLD (hyperlipidemia) Hypotension Noncompliance NILO (obstructive sleep apnea) Right bundle branch block (RBBB) Super obesity Type II diabetes mellitus, uncontrolled Home Medications citalopram 40 mg PO DAILY 05/29/15 [History Last Taken 07/30/19 09:00] tamsulosin 0.8 mg PO DAILY 07/08/16 [History Last Taken 07/29/19 21:00] gabapentin 300 - 600 mg PO TID PRN PRN 03/11/18 [History Last Taken 07/29/19 21:00] isosorbide mononitrate 30 mg PO DAILY 03/12/18 [History Last Taken 07/30/19 09:00] insulin lispro 20 unit SQ TIDCM 09/16/18 [History Last Taken 07/29/19] atorvastatin 40 mg PO DAILY 04/02/20 [History Last Taken Unknown] insulin glargine 20 unit SQ BID 04/02/20 [History Last Taken Unknown] losartan 100 mg PO DAILY 04/02/20 [History Last Taken Unknown] Mometason Formoterol 100 mcg INHALATION Q12H PRN 04/11/20 [History Last Taken Unknown] albuterol sulfate 1 puff INHALATION Q6H PRN PRN 04/11/20 [History Last Taken Unknown] apixaban 5 mg PO BID 04/11/20 [History Last Taken Unknown] ferrous sulfate 325 mg PO BID 04/11/20 [History Last Taken Unknown] fluticasone propionate 50 mcg NASAL DAILY 04/11/20 [History Last Taken Unknown] nifedipine 60 mg PO DAILY 04/11/20 [History Last Taken Unknown] nitroglycerin 0.4 mg SL Q5M PRN 04/11/20 [History Last Taken Unknown] sucralfate 1 gm PO 4X/DAY PRN 04/11/20 [History Last Taken Unknown] nystatin 1 applic TOPICAL 0600,2200 12/02/20 [History Last Taken Unknown] pantoprazole 40 mg PO DAILY 12/02/20 [History Last Taken Unknown] Allergy/AdvReac Type Severity Reaction Status Date / Time MARGIE Inhibitors Allergy Unknown edema Verified 10/02/20 03:20 cefepime Allergy weakness Verified 10/02/20 03:20 and falling ipodate [Ipodate] Allergy Shortness Verified 10/02/20 03:20 of breath levofloxacin [Levofloxacin] Allergy Anaphylaxis Verified 10/02/20 03:20 lisinopril Allergy Shortness Verified 10/02/20 03:20 of breath ofloxacin Allergy Other Verified 10/02/20 03:20 Quinolones Allergy Anaphylaxis Verified 10/02/20 03:20 Family History Father Colon cancer Mother Cancer Sister CAD (coronary artery disease) Surgical History History of esophagogastroduodenoscopy (EGD) History of left heart catheterization (07/11/19) History of loop recorder (03/2018) Social History Smoking Status: Former smoker quit date: 06/22/07 how long ago did patient quit smoking: cigars, smoked 2 a day, quit in 2007 ROS Constitutional Constitutional: Reports weakness; Denies anorexia, chills, fatigue, fever(s) or malaise Eyes Eyes: Denies blurry vision, change in eye color, change in vision, double vision or eye pain ENT HEENT: Denies ear discharge, ear pain, epistaxis, headache(s), nasal congestion, post nasal drip or sore throat Cardiovascular Cardiovascular: Denies chest pain, dyspnea on exertion, edema, lightheadedness, orthopnea, palpitations, paroxysmal nocturnal dyspnea or syncope Respiratory/Chest Respiratory/Chest: Denies cough, dyspnea, hemoptysis, productive cough, shortness of breath at rest, shortness of breath with exertion or wheezing Gastrointestinal Gastrointestinal: Denies abdominal pain, constipation, diarrhea, hematemesis, hematochezia, melena, nausea or vomiting Genitourinary Genitourinary: Denies burning urination, dysuria, hematuria, urinary hesitancy or urinary urgency Musculoskeletal Musculoskeletal: Reports joint pain and other Details: Left arm pain. ; Denies arthralgias, back pain, joint swelling, myalgias or neck pain Neurologic Neurologic: Denies confusion, dizziness, focal weakness, headache(s), numbness, paresthesias, seizures, tingling, tremor(s) or vertigo Psychiatric Psychiatric: Denies anxiety, depression, hallucinations, homicidal ideation or suicidal ideation Endocrine Endocrinology: Denies change in body appearance, cold intolerance, heat intolerance, polydipsia or polyuria Hematologic/Lymphatic Hematologic/Lymphatic: Denies easy bleeding, easy bruising or lymphadenopathy Allergic/Immunologic Allergic/Immunologic: Denies itchy eyes, rhinitis, throat swelling, tongue swelling, hives, urticaria or wheezing Vital Signs Vital Signs Vital Signs: 12/02/20 10:40 12/02/20 13:04 12/02/20 13:09 Temperature 98.5 F 98.5 F Temperature Source Oral Oral Pulse Rate 78 76 66 Respiratory Rate 18 19 H 16 Blood Pressure 133/83 H 107/60 150/68 H Blood Pressure Mean 99 75 95 Pulse Ox 94 97 97 Oxygen Delivery Method Room Air Nasal Cannula Room Air Oxygen Flow Rate (L/min) 2 Weight Weight: 336 lb 10.334 oz Body Mass Index (BMI) 45.6 Physical Exam Const alert, oriented x3 and no apparent distress General Appearance: cooperative HEENT normocephalic, head/scalp atraumatic, external ears normal and external nose normal Eyes PERRL, EOMs intact bilaterally, conjunctivae normal and no scleral icterus Neck no lymphadenopathy, supple, no meningeal signs, no JVD and no carotid bruits Lymph Lymphatic: no lymphadenopathy noted Resp normal respiratory effort and normal air movement Resp Narrative: Diminished breath sounds bilateral, otherwise clear. Auscultation: Negative for crackles, rales, rhonchi or wheezes Cardio regular rate, regular rhythm, S1 normal heart sound, S2 normal heart sound, no murmurs and no JVD GI normal to inspection, nondistended, normoactive bowel sounds, soft to palpation, non-tender and non-distended; Negative for hepatosplenomegaly Extremity normal to inspection and full ROM Extremity Narrative: Bilateral lymphedema, lymphedema, stasis dermatitis. Chronic right leg ulcers, dressed. Skin no petechiae General Skin Exam: venous stasis and dermatitis Wounds: wounds noted Neuro oriented x3, CN's II-XII intact bilaterally and moves all extremities Sensorium / Orientation: alert Speech: speech normal Motor Exam: strength 5/5 throughout Psych mental status grossly normal and affect normal Appearance: appropriate Results Lab / Micro Data Result Diagrams: 12/02/20 12:30 12/02/20 12:30 Labs: Laboratory Results - last 24 hr 12/02/20 12/02/20 12:30 12:30 WBC 8.9 RBC 4.55 L Hgb 12.8 L Hct 40.5 MCV 89.0 MCH 28.1 MCHC 31.6 L RDW Std Deviation 42.5 RDW Coeff of Hilary 13.0 Plt Count 239 MPV 9.8 Immature Gran % (Auto) 0.400 Neut % (Auto) 75.9 H Lymph % (Auto) 9.9 L Weld % (Auto) 8.6 Eos % (Auto) 4.6 Baso % (Auto) 0.6 Absolute Neuts (auto) 6.8 Absolute Lymphs (auto) 0.88 Nucleated RBC % 0 Sodium 137 Potassium 4.3 Chloride 102 Carbon Dioxide 27.0 Anion Gap 8 BUN 30 H Creatinine 2.42 H Estim Creat Clear Calc 26.72 Est GFR (MDRD) Af Amer 33 L Est GFR (MDRD) Non-Af 28 L BUN/Creatinine Ratio 12.4 Glucose 217 H Calcium 8.5 Radiology Impression Chest X-Ray 12/02/20 11:05 IMPRESSION: Normal x-ray examination of the chest. Electronically Signed: Maxwell Cerda MD at 11:49 EDT Tel , Service support , Shoulder X-Ray 12/02/20 11:05 IMPRESSION: Acute comminuted impacted fracture the left humeral head and neck. Electronically Signed: Maxwell Cerda MD at 11:38 EDT Tel , Service support , Assessment & Plan Assessment/Plan (1) Fracture of humeral head, left, closed: (2) Debility: (3) Depression: (4) BPH (benign prostatic hyperplasia): (5) Stage 3b chronic kidney disease: (6) Type 2 diabetes mellitus: (7) Coronary artery disease: (8) History of pulmonary embolism: (9) Essential (primary) hypertension: PLAN: This is an 80 years old male patient presented to the emergency room because of fall, had a recent left humeral head and neck fracture, has been having frequent falls and difficulty ambulating and is being admitted for evaluation and treatment. #1 acute traumatic comminuted impacted fracture of the left humeral head and neck: Patient went [facility], was put in arm sling and discharged home. He is supposed to see orthopedic surgery as outpatient. Plan: Admit to MedSurg floor, ambulate as tolerated, OxyIR as needed for pain, Tylenol as needed for pain, IV Zofran as needed, orthopedic surgery consult, gentle IV fluids for hydration, PT OT evaluation and treatment. #2 physical debility/frequent falls/functional decline: Patient has been having frequent falls, difficulty ambulating. He lives at home. Patient will need placement to long term facility, plan for PT OT evaluation and treatment. #3 chronic right leg ulcers: Dressed, will consult wound care nurse. #4 paroxysmal atrial fibrillation: Currently, rate is controlled. Patient is not on any medication for rate control and according to him, he was taken off Eliquis because of GI bleed. Will check pro time and INR. #5 type 2 diabetes mellitus: ADA diet, Accu-Cheks, sliding scale, continue home doses of Lantus and Humalog. #6 stage IIIb chronic kidney disease: Baseline creatinine has been around 1.5 to 2.4 mg/dL. Admission creatinine is stable at baseline. #7 hypertension: Blood pressure stable, continue nitrate and losartan as well as nifedipine. #8 history of DVT/PE: Currently he is off Eliquis, we need to confirm with his pharmacy or PCPs office. #9 DVT prophylaxis: Subcu heparin. This note was generated with [employer] dictation software. It may contain incorrect words, spelling, and punctuation that were not noted in checking the note before signing. Charges/Coding Visit Charges Inpatient E&M: 42157 Init Hosp L2
[2020-12-02 14:00] VITALS: BP 113/57; PULSE 72; RESP 18; TEMP 36.6; O2SAT 94; BMI 45.1
[2020-12-02] MEDS: Insulin Lispro 100 UNIT/ML INSULN.PEN 20 UNIT SC (15:38)
[2020-12-02] MEDS: Insulin Lispro 100 UNIT/ML INSULN.PEN SC ×2 (15:38→21:33)
[2020-12-02] MEDS: 0.9% Normal Saline 1,000 ML 75 ML IV (15:43)
[2020-12-02] MEDS: Ferrous Sulfate 325 MG Tablet PO (15:43)
[2020-12-02] MEDS: Tamsulosin HCl 0.4 MG Capsule 0.8 MG PO (15:43)
[2020-12-02 15:46] LABS: Bedside Glucose 243 mg/dL (70-110)
[2020-12-02 15:50] LABS: Prothrombin Time (Protime)PT. 21.8 SECONDS (11.7-14.9)
[2020-12-02 20:00] VITALS: BP 110/56; PULSE 66; RESP 16; TEMP 36.8; O2SAT 94
[2020-12-02] MEDS: oxyCODONE 5 MG Tablet PO (20:20)
[2020-12-02] MEDS: Atorvastatin Calcium 40 MG Tablet PO (21:35)
[2020-12-02] MEDS: Heparin Injection (Vial) 5,000 UNIT/ML VIAL 5000 UNIT SC (21:36)
[2020-12-03] VITALS (7 sets, daily range): BP systolic 142–165; BP diastolic 62–88; PULSE 71–86; RESP 16–20; TEMP 36.9–37.2; O2SAT 92–95
[2020-12-03 02:01] LABS: Bedside Glucose 152 mg/dL (70-110)
[2020-12-03] MEDS: Heparin Injection (Vial) 5,000 UNIT/ML VIAL 5000 UNIT SC ×3 (05:19→21:45)
[2020-12-03] MEDS: Insulin Lispro 100 UNIT/ML INSULN.PEN SC ×3 (07:49→21:44)
[2020-12-03 07:50] LABS: Bedside Glucose 156 mg/dL (70-110)
--- NOTE | 2020-12-03 08:31 | NURSING ---
wound photo: right lower leg
--- NOTE | 2020-12-03 08:33 | NURSING ---
wound photo: right medial lower leg
--- NOTE | 2020-12-03 09:09 | PN.HOSP_ITS ---
Subjective Subjective Patient complain of left shoulder pain. Patient is also constipated. Has little bowel movement today but not adequate. Dr. Brady said to follow-up as an outpatient. Objective Data Objective Data Vital Signs: Vital Signs Temp Pulse Resp BP Pulse Ox 98.8 F 71 16 142/62 H 94 12/03/20 02:00 12/03/20 02:00 12/03/20 02:00 12/03/20 02:00 12/03/20 08:05 Oxygen Flow Rate (L/min) 2 Oxygen Delivery Method Room Air Weight: 332 lb 14.368 oz Body Mass Index (BMI) 45.1 Intake & Output: Intake and Output for Last 24 Hours 12/01/20 12/02/20 12/03/20 23:59 23:59 23:59 Intake Total 100 / 100 1000 / 1000 Output Total 500 / 500 700 / 700 Balance -400 / -400 300 / 300 Lab / Micro Data Result Diagrams: 12/02/20 12:30 12/02/20 12:30 Labs: Laboratory Results - last 24 hr 12/02/20 12/02/20 12/02/20 12:30 12:30 15:29 WBC 8.9 RBC 4.55 L Hgb 12.8 L Hct 40.5 MCV 89.0 MCH 28.1 MCHC 31.6 L RDW Std Deviation 42.5 RDW Coeff of Hilary 13.0 Plt Count 239 MPV 9.8 Immature Gran % (Auto) 0.400 Neut % (Auto) 75.9 H Lymph % (Auto) 9.9 L [place] % (Auto) 8.6 Eos % (Auto) 4.6 Baso % (Auto) 0.6 Absolute Neuts (auto) 6.8 Absolute Lymphs (auto) 0.88 Nucleated RBC % 0 PT 21.8 H INR 2.0 Sodium 137 Potassium 4.3 Chloride 102 Carbon Dioxide 27.0 Anion Gap 8 BUN 30 H Creatinine 2.42 H Estim Creat Clear Calc 26.72 Est GFR (MDRD) Af Amer 33 L Est GFR (MDRD) Non-Af 28 L BUN/Creatinine Ratio 12.4 Glucose 217 H Calcium 8.5 POC Glucose 12/02/20 12/02/20 12/03/20 15:35 21:31 07:48 WBC RBC Hgb Hct MCV MCH MCHC RDW Std Deviation RDW Coeff of Hilary Plt Count MPV Immature Gran % (Auto) Neut % (Auto) Lymph % (Auto) [place] % (Auto) Eos % (Auto) Baso % (Auto) Absolute Neuts (auto) Absolute Lymphs (auto) Nucleated RBC % PT INR Sodium Potassium Chloride Carbon Dioxide Anion Gap BUN Creatinine Estim Creat Clear Calc Est GFR (MDRD) Af Amer Est GFR (MDRD) Non-Af BUN/Creatinine Ratio Glucose Calcium POC Glucose 243 H 152 H 156 H Radiography Diagnostic Testing: Radiology Impression Chest X-Ray 12/02/20 11:05 IMPRESSION: Normal x-ray examination of the chest. Electronically Signed: Maxwell Cerda MD at 11:49 EDT Tel , Service support , Shoulder X-Ray 12/02/20 11:05 IMPRESSION: Acute comminuted impacted fracture the left humeral head and neck. Electronically Signed: Maxwell Cerda MD at 11:38 EDT Tel , Service support , Physical Exam Narrative Physical exam General: Alert, Oriented x3, Cooperative HEENT: Atraumatic, PERRLA, EOMI, Normocephalic Oral: No Gingival or Mucosal Lesions/ Ulcerations Neck: Supple, No JVD, Negative Carotid Bruits Lungs: Air entry diminished in bilateral lung bases. No crepitation/rhonchi Cardiovascular: Regular rate, Regular Rhythm, Normal S1, Normal S2, No murmurs Abdomen: Bowel Sounds Present, Soft, Non Tender, Non-Distended : No renal angle tenderness. No suprapubic tenderness. Extremities: Left shoulder in swathe. Tenderness present over shoulder region, diffuse. Capillary Refill Less than 3 Seconds Skin: No rashes, No breakdown Musculoskeletal: recurrent fall. Decreased muscle strength of lower extremities. Neurological: Cranial nerves II-XII grossly intact, Deep Tendon Reflexes 2+/4 and Symmetrical, Neuro grossly intact Psych/Mental Status: Normal Affect, Appropriate. Assessment & Plan Assessment/Plan (1) Fracture of humeral head, left, closed: (2) Debility: PLAN: This is an 80 years old male patient presented to the emergency room because of fall, had a recent left humeral head and neck fracture, has been having frequent falls and difficulty ambulating and is being admitted for evaluation and treatment. Patient had fallen recently, injured his shoulder was seen in [place] [facility] from where he was discharged home. #1 acute traumatic comminuted impacted fracture of the left humeral head and neck: Conservative management for now. Dr. Bhargav Brady was notified for consult but he wanted to follow as an outpatient. is/it project manager working on rehab placement. Continue PT and OT. #2 physical debility/frequent falls/functional decline: Patient has been having frequent falls, difficulty ambulating. #3 chronic right leg ulcers: Small superficial ulcer and erosions over right lower leg, mainly medial aspect suggestive of venous ulcers. It was dressed with as gastric dressing. Minimal drainage. #4 paroxysmal atrial fibrillation: Currently, rate is controlled. Patient is not on any medication for rate control and according to him, he was taken off Eliquis because of GI bleed. Will check pro time and INR. #5 type 2 diabetes mellitus: ADA diet, Accu-Cheks, sliding scale, continue home doses of Lantus and Humalog. #6 stage IIIb chronic kidney disease: Baseline creatinine has been around 1.5 to 2.4 mg/dL. Admission creatinine is stable at baseline. Creatinine is on baseline. #7 hypertension: Blood pressure stable, continue nitrate and losartan as well as nifedipine. #8 history of DVT/PE: Currently he is off Eliquis, we need to confirm with his pharmacy or PCPs office. #9 DVT prophylaxis: Subcu heparin. Charges/Coding Visit Charges Inpatient E&M: 24277 Subs Hosp L2
[2020-12-03] MEDS: Insulin Lispro 100 UNIT/ML INSULN.PEN 20 UNIT SC ×2 (09:13→12:05)
[2020-12-03] MEDS: Citalopram 40 MG TABLET PO (09:14)
[2020-12-03] MEDS: Sucralfate 1 GM Tablet PO (09:14)
[2020-12-03] MEDS: Pantoprazole Sodium 40 MG Tablet PO (09:14)
[2020-12-03] MEDS: NIFEdipine 60 MG Tablet PO (09:14)
[2020-12-03] MEDS: Isosorbide Mononitrate 30 MG Tablet PO (09:14)
[2020-12-03] MEDS: Losartan Potassium 100 MG Tablet PO (09:15)
[2020-12-03] MEDS: Senna/Docusate Sodium 1 Tablet 2 TABLET PO ×2 (11:29→21:51)
[2020-12-03] MEDS: Polyethylene Glycol 3350 17 GM PACKET PO (11:29)
[2020-12-03] MEDS: Fluticasone 0.05% 1 SPRAY NASAL.SRY NASAL (11:29)
[2020-12-03] MEDS: Nystatin Powder 15gm Bottle 1 APPLIC TOPICAL ×2 (11:31→19:51)
[2020-12-03] MEDS: Albuterol 2.5 MG/3 ML VIAL.NEB. INHALATION (12:03)
[2020-12-03] MEDS: oxyCODONE 5 MG Tablet PO (12:04)
[2020-12-03 12:05] LABS: Bedside Glucose 184 mg/dL (70-110)
[2020-12-03] MEDS: Ferrous Sulfate 325 MG Tablet PO ×2 (12:05→17:11)
--- NOTE | 2020-12-03 13:10 | CASEMGMT ---
SW met w/pt in room in regard to prior level of function and anticipated discharge plan. PCP: Dr. Nelson Specialists: Was supposed to see orthopedic doctor but ended up in the hospital Insurance: Medicare/[place] [employer] [place] Pharmacy: [facility] in [place]: , daughter Living arrangements: Pt lives home w/ in a one story home, a few steps to enter Prior level of function: Pt was independent with ADLs, does his own personal care, drives. He sets up his own meds or his helps. Pt's does the cooking and cleaning. Pt also reports pt's daughter is supportive. LW/POA: Pt states has not completed LW/POA. DME/HHC/SNF: Pt has a cane and walker, has not had home health and has not been to rehab in the past. Plan: SNF, facility TBD SW spoke w/pt about discharge plan, he states does think he needs to go somewhere for rehab prior to returning home. SW provided list of halfway facilities that take pt's insurance, can meet pt's medical needs and are in pt's preferred geographic area, complete with quality and resource use data. Pt is not certain where he would like a referral sent, would like to speak w/his family. SW will check back w/pt later in regard to where to send a referral. TANK Manning
--- NOTE | 2020-12-03 15:41 | CASEMGMT ---
Addendum entered by Inga Onofre 12/03/20 16:29: SW did speak w/pt one more time today, explained [facility] does not have any beds. Pt would like a referral sent to [facility]. SW called [facility], referral faxed. SW will follow up tomorrow. TANK Manning Original Note: SW spoke w/pt's RN, pt had indicated he wants to go to TCU. SW spoke w/Kathy, there are no beds available. SW attempted to speak w/pt regarding other choices, pt is sleeping soundly, SW will check back w/pt tomorrow. TANK Manning
[2020-12-03 16:31] LABS: Bedside Glucose 84 mg/dL (70-110)
--- NOTE | 2020-12-03 16:40 | CHAPLAIN ---
Type of Pastoral Visit _x__ Initial Visit ___ Follow-up Visit ___ On-call Visit ___ General Patient Visit ___ Spiritual Assessment ___ Family Conference ___ Bereavement ___ Rapid Response ___ Code Blue ___ Other (describe below) Pastoral Care Referral From _x__ Patient ___ Family ___ Nurse ___ Physician ___ Shipper And Receiving ___ Medical Center Director ___ Other (describe below) Sacrament/Intervention _x__ Active listening ___ Anointing ___ Scientology ___ Bereavement ___ Communion _x__ Marcella exploration ___ _x__ Life review _x__ Prayer ___ Reconciliation ___ Sacrament of Sick _x__ Supportive presence ___ Wedding ___ Other (describe below) Pastoral Comments patient expresses feeling of being overwhelmed due to circumstances of his hospitalization; 's stroke and hospitalization in another facility and other life concerns; pt welcomes prayer and spiritual conversation for support
[2020-12-03] MEDS: Tamsulosin HCl 0.4 MG Capsule 0.8 MG PO (17:11)
[2020-12-03] MEDS: Ondansetron 4 MG/2 ML Vial IV (19:41)
[2020-12-03] MEDS: Atorvastatin Calcium 40 MG Tablet PO (21:46)
[2020-12-03 21:56] LABS: Bedside Glucose 192 mg/dL (70-110)
[2020-12-04 03:07] VITALS: BP 164/83; PULSE 83; RESP 17; TEMP 37; O2SAT 94
[2020-12-04] MEDS: Heparin Injection (Vial) 5,000 UNIT/ML VIAL 5000 UNIT SC ×3 (06:20→22:42)
[2020-12-04] MEDS: Insulin Lispro 100 UNIT/ML INSULN.PEN SC ×4 (06:20→22:44)
[2020-12-04 06:26] LABS: Bedside Glucose 163 mg/dL (70-110)
[2020-12-04 07:01] VITALS: O2SAT 93
[2020-12-04 08:52] VITALS: BP 143/73; PULSE 87; RESP 18; TEMP 36.9; O2SAT 93
[2020-12-04 09:00] VITALS: PULSE 72
[2020-12-04] MEDS: Losartan Potassium 100 MG Tablet PO (09:07)
[2020-12-04] MEDS: Pantoprazole Sodium 40 MG Tablet PO (09:07)
[2020-12-04] MEDS: Polyethylene Glycol 3350 17 GM PACKET PO (09:07)
[2020-12-04] MEDS: Isosorbide Mononitrate 30 MG Tablet PO (09:07)
[2020-12-04] MEDS: Fluticasone 0.05% 1 SPRAY NASAL.SRY NASAL (09:07)
[2020-12-04] MEDS: Nystatin Powder 15gm Bottle 1 APPLIC TOPICAL ×2 (09:07→22:46)
[2020-12-04] MEDS: NIFEdipine 60 MG Tablet PO (09:07)
[2020-12-04] MEDS: Citalopram 40 MG TABLET PO (09:07)
[2020-12-04] MEDS: Senna/Docusate Sodium 1 Tablet 2 TABLET PO ×2 (09:10→22:50)
[2020-12-04] MEDS: Bisacodyl 5 MG Tablet PO (10:22)
--- NOTE | 2020-12-04 10:32 | CASEMGMT ---
SW called [facility], spoke w/Zo. The referral was not received as they were having phone and computer issues yesterday. YORDY refaxed referral, will continue to follow. TANK Manning
--- NOTE | 2020-12-04 10:35 | NURSING ---
Addendum entered and electronically signed by Veronica Contreras 12/04/20 10:50: Dr Clemens aware patient meets criteria for referral, no VO/request to refer at this time. VINI Jin Original Note: VINI Note: Palliative Screening tool per [facility] guidelines was completed by VINI Coronado on 10/03/20 and patient met criteria at that time. No referral was made d/t patient discharging. Will notify MOD that patient met referral criteria. VINI Jin
[2020-12-04] MEDS: Ferrous Sulfate 325 MG Tablet PO ×2 (11:55→18:16)
[2020-12-04 12:00] LABS: Bedside Glucose 194 mg/dL (70-110)
--- NOTE | 2020-12-04 12:08 | CASEMGMT ---
Addendum entered by Inga Onofre 12/07/20 14:09: Please note: All notes from nursing staff and SW were faxed with initial referral sent this morning. Nurse's notes did document pt's agitation this morning and code steven calls. SW All clinical information was faxed as well including H&P and progress notes. TANK Manning Addendum entered by Inga Onofre 12/04/20 16:17: Zo from [facility] called back and confirmed pt will not be able to have visitors for the first 14 days he is there. He will be allowed out of his room to participate in therapy, he will just need to wear a mask. TANK Manning Addendum entered by Inga Onofre 12/04/20 12:43: Pt's daughter Antoinette called back, SW let her know that pt chose [facility] and he will be able to go tomorrow. Antoinette is trying to get pt's into the same facility. SW also let Antoinette know that since pt has not been vaccinated, pt will be quarantined for 14 days, Antoinette states understanding. SW explained if SW learns anything different than this will let her know. SW did call [facility] and left a message for Zo confirming the visitation policy. TANK Manning Original Note: SW spoke w/Zo([phone]) at [facility], they will be able to take pt tomorrow. YORDY did let Zo know pt's family had informed RN yesterday of some concern regarding the condition of pt's home, and that pt's is in [place] and had a stroke. SW let pt know that [facility] will be able to take him tomorrow. Pt states understanding. YORDY did also inquire w/pt if he has had the COVID vaccine, pt states no. YORDY explaing pt may need to be quarantined for the first 14 days while at [facility]. YORDY asked pt if he would like SW to call family, he is agreeable to have SW call his daughter to let her know the plan. YORDY called daughter, left message w/son in law for daughter to call SW. SW informed physician [facility] can take pt tomorrow. Plan: [facility] tomorrow. TANK Manning
--- NOTE | 2020-12-04 12:50 | PCM.PN.HOSP ---
Subjective Subjective Patient left shoulder pain is better. Has a small amount of bowel movement. Objective Data Objective Data Vital Signs: Vital Signs Temp Pulse Resp BP Pulse Ox 98.5 F 72 18 143/73 H 93 12/04/20 08:52 12/04/20 09:00 12/04/20 08:52 12/04/20 08:52 12/04/20 08:52 Oxygen Flow Rate (L/min) 2 Oxygen Delivery Method Nasal Cannula Weight: 332 lb 14.368 oz Body Mass Index (BMI) 45.1 Intake & Output: Intake and Output for Last 24 Hours 12/02/20 12/03/20 12/04/20 23:59 23:59 23:59 Intake Total 100 / 100 2450 / 2450 925 / 925 Output Total 500 / 500 1400 / 1400 1625 / 1625 Balance -400 / -400 1050 / 1050 -700 / -700 Lab / Micro Data Result Diagrams: 12/02/20 12:30 12/02/20 12:30 Labs: Laboratory Results - last 24 hr 12/03/20 12/03/20 12/04/20 16:26 21:38 06:19 POC Glucose 84 192 H 163 H 12/04/20 11:53 POC Glucose 194 H Physical Exam Narrative Physical exam General: Alert, Oriented x3, Cooperative, morbid obesity BMI 45.1 kg/m?, present since admission HEENT: Atraumatic, PERRLA, EOMI, Normocephalic Oral: No Gingival or Mucosal Lesions/ Ulcerations Neck: Supple, No JVD, Negative Carotid Bruits Lungs: Air entry diminished in bilateral lung bases. No crepitation/rhonchi Cardiovascular: Regular rate, Regular Rhythm, Normal S1, Normal S2, No murmurs Abdomen: Bowel Sounds Present, Soft, Non Tender, Non-Distended : No renal angle tenderness. No suprapubic tenderness. Extremities: Left shoulder in swathe. Mild tenderness present over shoulder region, diffuse. Capillary Refill Less than 3 Seconds Skin: No rashes, No breakdown Musculoskeletal: recurrent fall. Decreased muscle strength of lower extremities. Neurological: Cranial nerves II-XII grossly intact, Deep Tendon Reflexes 2+/4 and Symmetrical, Neuro grossly intact Psych/Mental Status: Normal Affect, Appropriate. Assessment & Plan Assessment/Plan (1) Fracture of humeral head, left, closed: (2) Debility: PLAN: This is an 80 years old male patient presented to the emergency room because of fall, had a recent left humeral head and neck fracture, has been having frequent falls and difficulty ambulating and is being admitted for evaluation and treatment. Patient had fallen recently, injured his shoulder was seen in [place] ER from where he was discharged home. #1 acute traumatic comminuted impacted fracture of the left humeral head and neck: Conservative management for now. Dr. Bhargav Brady was notified for consult but he wanted to follow as an outpatient. production support manager working on rehab placement. Continue PT and OT. 12/04: Discussed with foster care case manager. Plan for discharge tomorrow a.m. #2 physical debility/frequent falls/functional decline: Patient has been having frequent falls, difficulty ambulating. #3 chronic right leg ulcers: Small superficial ulcer and erosions over right lower leg, mainly medial aspect suggestive of venous ulcers. It was dressed with as Adaptic dressing. Minimal drainage. #4 paroxysmal atrial fibrillation: Currently, rate is controlled. Patient is not on any medication for rate control and according to him, he was taken off Eliquis because of GI bleed. Will check pro time and INR. #5 type 2 diabetes mellitus: ADA diet, Accu-Cheks, sliding scale, continue home doses of Lantus and Humalog. #6 stage IIIb chronic kidney disease: Baseline creatinine has been around 1.5 to 2.4 mg/dL. Admission creatinine is stable at baseline. Creatinine is on baseline. 12/04: BUN/creatinine is stable 30/2.42. #7 hypertension: Blood pressure stable, continue nitrate and losartan as well as nifedipine. #8 history of DVT/PE: Currently he is off Eliquis, we need to confirm with his pharmacy or PCPs office. #9 DVT prophylaxis: Subcu heparin. Charges/Coding Visit Charges Inpatient E&M: 16980 Subs Hosp L2
[2020-12-04 14:07] VITALS: BP 138/73; PULSE 87; RESP 18; TEMP 37.1; O2SAT 93
[2020-12-04 16:25] LABS: Bedside Glucose 238 mg/dL (70-110)
[2020-12-04] MEDS: Tamsulosin HCl 0.4 MG Capsule 0.8 MG PO (18:16)
[2020-12-04 20:29] VITALS: BP 126/63; PULSE 81; RESP 18; TEMP 36.7; O2SAT 93
[2020-12-04] MEDS: Atorvastatin Calcium 40 MG Tablet PO (22:46)
[2020-12-04 23:00] LABS: Bedside Glucose 270 mg/dL (70-110)
[2020-12-05] VITALS (10 sets, daily range): BP systolic 109–184; BP diastolic 63–98; PULSE 76–114; RESP 18; TEMP 36.7–37.3; O2SAT 91–95
[2020-12-05] MEDS: Heparin Injection (Vial) 5,000 UNIT/ML VIAL 5000 UNIT SC ×3 (06:37→21:42)
[2020-12-05] MEDS: Insulin Lispro 100 UNIT/ML INSULN.PEN SC ×4 (06:39→21:41)
[2020-12-05 06:45] LABS: Bedside Glucose 185 mg/dL (70-110)
--- NOTE | 2020-12-05 09:33 | PCM.TXEXTCAR ---
Diet 12/02/20 15:11 Diet: Cardiac - Heart Healthy Food consistency:: Regular Liquid Consistency:: Regular/Thin Diet: Consistent Carb - Calorie Controlled Food consistency:: Regular Liquid Consistency:: Regular/Thin How many daily calories?: 1800 calorie Routine Orders/Code Status Suppository Type: Dulcolax 10mg Suppository Frequency: Daily PRN Wound(s) left knee: Wound Type: Abrasion right knee: Wound Type: Abrasion Dressing Change: Adaptic right leg: Wound Type: open blisters right medial lower leg: Wound Type: Stasis Ulcer Dressing Change: Adaptic right lateral lower leg (distal): Wound Type: Abrasion Dressing Change: Adaptic right lateral lower leg (proximal): Wound Type: Abrasion Dressing Change: Adaptic Therapies Weight Bearing: Weight bearing as tolerated Extremity Affected:: Left Upper Physical Therapy: Eval and Treat Occupational Therapy: Eval and Treat Speech Therapy: Eval and Treat Problem/Diagnosis (1) Fracture of humeral head, left, closed: Status: Acute (2) Debility: Status: Acute Allergies/Procedures Done in Hospital Allergies MARGIE Inhibitors Allergy (Unknown, Verified 10/02/20 03:20) edema cefepime Allergy (Verified 10/02/20 03:20) weakness and falling WEAKNESS & FALLING ipodate [Ipodate] Allergy (Verified 10/02/20 03:20) Shortness of breath levofloxacin [Levofloxacin] Allergy (Verified 10/02/20 03:20) Anaphylaxis lisinopril Allergy (Verified 10/02/20 03:20) Shortness of breath ofloxacin Allergy (Verified 10/02/20 03:20) Other Quinolones Allergy (Verified 10/02/20 03:20) Anaphylaxis Type of Care/Length of Stay Estimated LOS: Convalescent Care Less Than 30 days Type of Care Needed: Skilled Rehab Potential: Fair Prognosis: Fair Additional Orders/Day of Discharge Day of Discharge: 12/05/20 Dietary and Speech Recommendations Dietitian Recommendations/Changes: Will continue diet as ordered. Discharge Plan Admission Admit Date/Time: 12/02/20 12:29 Attending Provider: Duncan Paris Primary Care Provider: Wili Nelson Consulting Providers: Bhargav Brady Discharge Orders/Prescriptions Prescriptions: No Action citalopram 40 MG tablet 40 mg PO DAILY RF: 0 tamsulosin 0.4 MG capsule 0.8 mg PO DAILY RF: 0 gabapentin 300 MG capsule 300 - 600 mg PO TID PRN PRN (Reason: nerve pain) RF: 0 isosorbide mononitrate 30 MG tablet 30 mg PO DAILY RF: 0 insulin lispro 100 UNIT/ML insulin pen 20 unit SQ TIDCM RF: 0 losartan 50 MG tablet 100 mg PO DAILY RF: 0 atorvastatin 40 mg tablet 40 mg PO DAILY RF: 0 insulin glargine 100 UNIT/ML insulin pen 20 unit SQ BID RF: 0 nifedipine 60 MG tablet 60 mg PO DAILY RF: 0 apixaban 5 MG tablet 5 mg PO BID RF: 0 albuterol sulfate 1 INHALER inhaler 1 puff INHALATION Q6H PRN PRN (Reason: SOB or Wheezing) RF: 0 ferrous sulfate 325 MG tablet 325 mg PO BID RF: 0 sucralfate 1 GM tablet 1 gm PO 4X/DAY PRN (Reason: Stomach) RF: 0 nitroglycerin 0.4 MG tablet, sublingual 0.4 mg SL Q5M PRN (Reason: Chest Pain) RF: 0 fluticasone propionate 1 SPRAY spray,suspension 50 mcg NASAL DAILY RF: 0 Mometason Formoterol 100 mcg INHALATION Q12H PRN (Reason: Sob &/Or Wheezing) RF: 0 pantoprazole 40 MG tablet,delayed release (DR/EC) 40 mg PO DAILY RF: 0 nystatin 1 APPLIC powder 1 applic TOPICAL 0600,2200 RF: 0 Referrals / Follow Up: Wili Nelson DO [Primary Care Provider] -
--- NOTE | 2020-12-05 09:34 | PCM.DC.SUM ---
Providers Date of Admission: 12/02/20 Primary Care Physician: Dr. Wili Nelson, Consultations 12/02/20 15:10 Consult: Onc/Wound/linux systems engineer Routine Comment: Reason for Consult:: Chronic right leg ulcers. Consult: Orthopedics Routine Consulting Provider: Bhargav Brady Reason for Consult: Left humeral head and neck fracture EMERGENT Consult: No MD Notified: Yes Date Notified: 12/02/20 Time Notified: 16:46 Method of Notification: Verbal Reason For Visit: LEFT HUMERAL HEAD AND NECK FRACTURE, DEBILITY Diagnosis Discharge Diagnosis (1) Fracture of humeral head, left, closed: Status: Acute Code(s): S42.292A - Other displaced fracture of upper end of left humerus, initial encounter for closed fracture (2) Debility: Status: Acute Code(s): R53.81 - Other malaise Medications at Discharge Home Medications citalopram 40 mg PO DAILY 05/29/15 tamsulosin 0.8 mg PO DAILY 07/08/16 gabapentin 300 - 600 mg PO TID PRN PRN 03/11/18 isosorbide mononitrate 30 mg PO DAILY 03/12/18 insulin lispro 20 unit SQ TIDCM 09/16/18 atorvastatin 40 mg PO DAILY 04/02/20 insulin glargine 20 unit SQ BID 04/02/20 losartan 100 mg PO DAILY 04/02/20 Mometason Formoterol 100 mcg INHALATION Q12H PRN 04/11/20 albuterol sulfate 1 puff INHALATION Q6H PRN PRN 04/11/20 apixaban 5 mg PO BID 04/11/20 ferrous sulfate 325 mg PO BID 04/11/20 fluticasone propionate 50 mcg NASAL DAILY 04/11/20 nifedipine 60 mg PO DAILY 04/11/20 nitroglycerin 0.4 mg SL Q5M PRN 04/11/20 sucralfate 1 gm PO 4X/DAY PRN 04/11/20 nystatin 1 applic TOPICAL 0600,2200 12/02/20 pantoprazole 40 mg PO DAILY 12/02/20 Weight / BMI Weight Weight: 332 lb 14.368 oz Body Mass Index (BMI) 45.1 ABG / Lab / Microbiology Data Result Diagrams: 12/02/20 12:30 12/02/20 12:30 Laboratory: Laboratory Results - last 24 hr 12/04/20 12/04/20 12/04/20 11:53 16:20 22:41 POC Glucose 194 H 238 H 270 H 12/05/20 06:37 POC Glucose 185 H Discharge Plan Admission Admit Date/Time: 12/02/20 12:29 Attending Provider: Duncan Paris Primary Care Provider: Wili Nelson Consulting Providers: Bhargav Brady Discharge Orders/Prescriptions Prescriptions: No Action citalopram 40 MG tablet 40 mg PO DAILY RF: 0 tamsulosin 0.4 MG capsule 0.8 mg PO DAILY RF: 0 gabapentin 300 MG capsule 300 - 600 mg PO TID PRN PRN (Reason: nerve pain) RF: 0 isosorbide mononitrate 30 MG tablet 30 mg PO DAILY RF: 0 insulin lispro 100 UNIT/ML insulin pen 20 unit SQ TIDCM RF: 0 losartan 50 MG tablet 100 mg PO DAILY RF: 0 atorvastatin 40 mg tablet 40 mg PO DAILY RF: 0 insulin glargine 100 UNIT/ML insulin pen 20 unit SQ BID RF: 0 nifedipine 60 MG tablet 60 mg PO DAILY RF: 0 apixaban 5 MG tablet 5 mg PO BID RF: 0 albuterol sulfate 1 INHALER inhaler 1 puff INHALATION Q6H PRN PRN (Reason: SOB or Wheezing) RF: 0 ferrous sulfate 325 MG tablet 325 mg PO BID RF: 0 sucralfate 1 GM tablet 1 gm PO 4X/DAY PRN (Reason: Stomach) RF: 0 nitroglycerin 0.4 MG tablet, sublingual 0.4 mg SL Q5M PRN (Reason: Chest Pain) RF: 0 fluticasone propionate 1 SPRAY spray,suspension 50 mcg NASAL DAILY RF: 0 Mometason Formoterol 100 mcg INHALATION Q12H PRN (Reason: Sob &/Or Wheezing) RF: 0 pantoprazole 40 MG tablet,delayed release (DR/EC) 40 mg PO DAILY RF: 0 nystatin 1 APPLIC powder 1 applic TOPICAL 0600,2200 RF: 0 Referrals / Follow Up: Wili Nelson DO [Primary Care Provider] -
--- NOTE | 2020-12-05 09:55 | RAD_ITS ---
STUDY: X-RAY CHEST REASON FOR EXAM: Male, 80 years old. Sob, wheezing, gurgling/pooling christopher shahid -- R/O aspiration TECHNIQUE: Single AP portable view of the chest. COMPARISON: Comparison is made with prior study dated 08/04/2020. FINDINGS: There now is evidence of a focal infiltrate in the right mid lung. There is no demonstrated pleural abnormality. There is mild cardiac enlargement. A loop recording device is seen overlying the left heart border. Normal mediastinum and denys. Normal visualized pulmonary arteries. There is atherosclerotic tortuosity of the aortic arch and descending thoracic aorta. There are diffuse degenerative changes of the visualized thoracic spine. There is degenerative osteoarthritis of the bilateral shoulders. There is no demonstrated abnormality of the visualized soft tissue structures of the upper abdomen. RAD/Chest 1 View (Portable) IMPRESSION: New focal infiltrate in the right midlung. Electronically Signed: Seymour Shelley MD at 10:26 EDT , Service support ,
[2020-12-05] MEDS: 0.9% Saline Lock 10 ML Syringe IV ×2 (10:08→14:47)
[2020-12-05] MEDS: Furosemide 40 MG/4 ML Vial IV (10:08)
[2020-12-05] MEDS: Polyethylene Glycol 3350 17 GM PACKET PO (10:09)
[2020-12-05] MEDS: Losartan Potassium 100 MG Tablet PO (10:09)
[2020-12-05] MEDS: Citalopram 40 MG TABLET PO (10:09)
[2020-12-05] MEDS: Nystatin Powder 15gm Bottle 1 APPLIC TOPICAL ×2 (10:09→21:41)
[2020-12-05] MEDS: Fluticasone 0.05% 1 SPRAY NASAL.SRY NASAL (10:09)
[2020-12-05] MEDS: Isosorbide Mononitrate 30 MG Tablet PO (10:09)
[2020-12-05] MEDS: NIFEdipine 60 MG Tablet PO (10:10)
[2020-12-05] MEDS: Senna/Docusate Sodium 1 Tablet 2 TABLET PO (10:10)
[2020-12-05] MEDS: Pantoprazole Sodium 40 MG Tablet PO (10:10)
[2020-12-05 10:17] LABS: Absolute Lymphocyte Count 0.46 X10^3/uL (0.83-4.51); Absolute Neutrophil Count 8.5 X10^3/uL (2.0-7.7); Basophil# 0.03 X10^3/uL; Basophil% 0.3 % (0-1); Eosinophil# 0.25 X10^3/uL; Eosinophils% 2.5 % (0-5); Hematocrit 44.1 % (40-54); Hemoglobin 13.9 g/dL (13.0-16.5); Lymphocyte # 0.46 X10^3/ul (0.83-4.51); Lymphocyte % 4.6 % (19-41); Mean Corp Hgb Conc 31.5 g/dL (32-36); Mean Corpuscular Hgb 28.3 pg (27.0-32.0); Mean Corpuscular Volume 89.6 fL (80-94); Mean Platelet Vol. 9.7 fl (6.2-12.0); Monocyte# 0.69 X10^3/uL; Monocyte% 6.9 % (0-10); NRBC Flagged by Analyzer 0 % (0-5); Neutrophil % 85.2 % (47-70); POSITIVE DIFFERENTIAL YES; Platelet Count 264 K/mm3 (150-450); RBC Distribution Width CV 12.7 % (11.6-14.6); RBC Distribution Width SD 41.4 fl (35.1-43.9); Red Blood Count 4.92 M/mm3 (4.6-6.2)
[2020-12-05 10:18] LABS: Differential Indicated SCAN CRITERIA MET
[2020-12-05 10:52] LABS: Anion Gap 6 (5-15); BUN 30 mg/dL (7-18); BUN/Creat Ratio 13.5 RATIO (10-20); Calcium,Total 9.1 mg/dL (8.5-10.1); Chloride 101 mmol/L (98-107); Creatinine, Serum 2.22 mg/dL (0.70-1.30); EST Glomerular Filtration Rate 30 mL/min (>60); Est Glom Filt Rate - Afr Amer 37 mL/min (>60); Estimated Creatinine Clearance 29.13 ml/min; Glucose 249 mg/dL (74-106); Magnesium 2.2 mg/dL (1.6-2.6); Potassium 4.5 mmol/L (3.5-5.1); Sodium Level 135 mmol/L (136-145)
[2020-12-05] MEDS: Ferrous Sulfate 325 MG Tablet PO (11:07)
[2020-12-05 11:16] LABS: Bedside Glucose 252 mg/dL (70-110)
[2020-12-05] MEDS: Ondansetron 4 MG/2 ML Vial IV (11:20)
--- NOTE | 2020-12-05 12:11 | PCM.PN.HOSP ---
Subjective Subjective Patient is more confused and lethargic. Patient also found pooling of saliva although he denies dysphagia. As per nursing staff, she did not find choking or coughing while eating. No fever or chills. Blood pressure is elevated Objective Data Objective Data Vital Signs: Vital Signs Temp Pulse Resp BP Pulse Ox 99.1 F 108 H 18 183/98 H 93 12/05/20 10:33 12/05/20 10:33 12/05/20 10:33 12/05/20 10:33 12/05/20 10:33 Oxygen Flow Rate (L/min) 2 Oxygen Delivery Method Nasal Cannula Weight: 332 lb 14.368 oz Body Mass Index (BMI) 45.1 Intake & Output: Intake and Output for Last 24 Hours 12/03/20 12/04/20 12/05/20 23:59 23:59 23:59 Intake Total 2450 / 2450 2075 / 2075 600 / 600 Output Total 1400 / 1400 3575 / 3575 725 / 725 Balance 1050 / 1050 -1500 / -1500 -125 / -125 Lab / Micro Data Result Diagrams: 12/05/20 10:08 12/05/20 10:08 Labs: Laboratory Results - last 24 hr 12/04/20 12/04/20 12/05/20 16:20 22:41 06:37 WBC RBC Hgb Hct MCV MCH MCHC RDW Std Deviation RDW Coeff of Hilary Plt Count MPV Immature Gran % (Auto) Neut % (Auto) Lymph % (Auto) [place] % (Auto) Eos % (Auto) Baso % (Auto) Absolute Neuts (auto) Absolute Lymphs (auto) Nucleated RBC % Differential Comment Sodium Potassium Chloride Carbon Dioxide Anion Gap BUN Creatinine Estim Creat Clear Calc Est GFR (MDRD) Af Amer Est GFR (MDRD) Non-Af BUN/Creatinine Ratio Glucose Calcium Magnesium POC Glucose 238 H 270 H 185 H 12/05/20 12/05/20 12/05/20 10:08 10:08 11:05 WBC 10.0 RBC 4.92 Hgb 13.9 Hct 44.1 MCV 89.6 MCH 28.3 MCHC 31.5 L RDW Std Deviation 41.4 RDW Coeff of Hilary 12.7 Plt Count 264 MPV 9.7 Immature Gran % (Auto) 0.500 Neut % (Auto) 85.2 H Lymph % (Auto) 4.6 L [place] % (Auto) 6.9 Eos % (Auto) 2.5 Baso % (Auto) 0.3 Absolute Neuts (auto) 8.5 H Absolute Lymphs (auto) 0.46 L Nucleated RBC % 0 Differential Comment COMMENT Sodium 135 L Potassium 4.5 Chloride 101 Carbon Dioxide 28.0 Anion Gap 6 BUN 30 H Creatinine 2.22 H Estim Creat Clear Calc 29.13 Est GFR (MDRD) Af Amer 37 L Est GFR (MDRD) Non-Af 30 L BUN/Creatinine Ratio 13.5 Glucose 249 H Calcium 9.1 Magnesium 2.2 POC Glucose 252 H Micro: Microbiology 12/05/20 10:34 Mucosa - Nose SARS-CoV-2 Antigen (Rapid) - Final Radiography Diagnostic Testing: Radiology Impression Chest X-Ray 12/05/20 09:55 IMPRESSION: New focal infiltrate in the right midlung. Electronically Signed: Seymour Shelley MD at 10:26 EDT , Service support , Physical Exam Narrative General: Confused, low pitched voice, disoriented and lethargic. Morbid obesity BMI 45.1 kg/m?, present since admission HEENT: Atraumatic, PERRLA, EOMI, Normocephalic Oral: No Gingival or Mucosal Lesions/ Ulcerations Neck: Supple, No JVD, Negative Carotid Bruits Lungs: Air entry diminished in bilateral lung bases. Crepitation found on right and left lung base. Cardiovascular: Regular rate, Regular Rhythm, Normal S1, Normal S2, No murmurs Abdomen: Bowel Sounds Present, Soft, Non Tender, Non-Distended : No renal angle tenderness. No suprapubic tenderness. Extremities: Left shoulder in swathe. Mild tenderness present over shoulder region, diffuse. Capillary Refill Less than 3 Seconds Skin: Multiple superficial skin ulcer and bruise over both legs improving, venous hypertension Musculoskeletal: recurrent fall. Decreased muscle strength of lower extremities. Neurological: Cranial nerves II-XII grossly intact, Deep Tendon Reflexes 2+/4 and Symmetrical, Neuro grossly intact Psych/Mental Status: Confused. Assessment & Plan Assessment/Plan (1) Fracture of humeral head, left, closed: (2) Debility: PLAN: This is an 80 years old male patient presented to the emergency room because of fall, had a recent left humeral head and neck fracture, has been having frequent falls and difficulty ambulating and is being admitted for evaluation and treatment. Patient had fallen recently, injured his shoulder was seen in [place] ER from where he was discharged home. #1 acute traumatic comminuted impacted fracture of the left humeral head and neck: Conservative management for now. Dr. Bhargav Brady was notified for consult but he wanted to follow as an outpatient. manager community development working on rehab placement. Continue PT and OT. Possible right middle lobe aspiration pneumonia: Patient is confused, disoriented with increasing leukocyte count is still normal but neutrophilia therefore started on IV antibiotic Unasyn. Urinary antigens ordered. Incentive spirometry and Pep. Bronchodilator as needed. Speech therapy evaluation. Make the patient n.p.o. IV fluid for nutritional need #2 physical debility/frequent falls/functional decline: Patient has been having frequent falls, difficulty ambulating. #3 chronic right leg ulcers: Small superficial ulcer and erosions over right lower leg, mainly medial aspect suggestive of venous ulcers. It was dressed with as Adaptic dressing. Minimal drainage. #4 paroxysmal atrial fibrillation: Currently, rate is controlled. Patient is not on any medication for rate control and according to him, he was taken off Eliquis because of GI bleed. Will check pro time and INR. #5 type 2 diabetes mellitus: ADA diet, Accu-Cheks, sliding scale, continue home doses of Lantus and Humalog. Lantus insulin added. #6 stage IIIb chronic kidney disease: Baseline creatinine has been around 1.5 to 2.4 mg/dL. Admission creatinine is stable at baseline. Creatinine is on baseline. 12/04: BUN/creatinine is stable 30/2.42. #7 hypertension: Blood pressure stable, continue nitrate and losartan as well as nifedipine. Hydralazine 10 mg IV added as needed for systolic blood pressure more than 170 mmHg #8 history of DVT/PE: Currently he is off Eliquis, we need to confirm with his pharmacy or PCPs office. #9 DVT prophylaxis: Subcu heparin. Microbiology Past 72 Hours 12/05/20 10:34 Mucosa - Nose SARS-CoV-2 Antigen (Rapid) - Final Laboratory Results 12/04/20 16:20: POC Glucose 238 H 12/04/20 22:41: POC Glucose 270 H 12/05/20 06:37: POC Glucose 185 H 12/05/20 10:08: WBC 10.0, RBC 4.92, Hgb 13.9, Hct 44.1, MCV 89.6, MCH 28.3, MCHC 31.5 L, RDW Std Deviation 41.4, RDW Coeff of Hilary 12.7, Plt Count 264, MPV 9.7, Immature Gran % (Auto) 0.500, Neut % (Auto) 85.2 H, Lymph % (Auto) 4.6 L, [place] % (Auto) 6.9, Eos % (Auto) 2.5, Baso % (Auto) 0.3, Absolute Neuts (auto) 8.5 H, Absolute Lymphs (auto) 0.46 L, Nucleated RBC % 0, Differential Comment COMMENT 12/05/20 10:08: Sodium 135 L, Potassium 4.5, Chloride 101, Carbon Dioxide 28.0, Anion Gap 6, BUN 30 H, Creatinine 2.22 H, Estim Creat Clear Calc 29.13, Est GFR (MDRD) Af Amer 37 L, Est GFR (MDRD) Non-Af 30 L, BUN/Creatinine Ratio 13.5, Glucose 249 H, Calcium 9.1, Magnesium 2.2 12/05/20 10:08: B-Natriuretic Peptide 28.3 12/05/20 11:05: POC Glucose 252 H Charges/Coding Visit Charges Inpatient E&M: 90348 Subs Hosp L2
--- NOTE | 2020-12-05 12:13 | CASEMGMT ---
Social Work Pt is not medically ready for discharge today. SW placed call to [facility] and updated. KATHY Navarro
[2020-12-05] MEDS: Bisacodyl 5 MG Tablet PO (12:54)
[2020-12-05 13:07] LABS: BNP,B-Type NATRIURETIC PEPTIDE 28.3 pg/mL (0-100)
[2020-12-05] MEDS: Dext 5%-0.45% NS 1,000 ML 50 ML IV (14:37)
[2020-12-05] MEDS: Bisacodyl 10 MG Suppository RC (14:37)
[2020-12-05] MEDS: Ipratropium/Albuterol Sulfate 3 ML AMPUL.NEB INHALATION ×2 (14:55→19:33)
[2020-12-05 17:45] LABS: Bedside Glucose 309 mg/dL (70-110)
[2020-12-05] MEDS: Budesonide Respules 0.5 MG/2 ML AMPUL.NEB. INHALATION (19:33)
[2020-12-05 23:31] LABS: Bedside Glucose 296 mg/dL (70-110)
[2020-12-06] VITALS (9 sets, daily range): BP systolic 135–147; BP diastolic 66–81; PULSE 65–77; RESP 16–21; TEMP 36.5–37.2; O2SAT 91–95
[2020-12-06] MEDS: Heparin Injection (Vial) 5,000 UNIT/ML VIAL 5000 UNIT SC ×3 (05:57→22:39)
[2020-12-06 06:50] LABS: Bedside Glucose 144 mg/dL (70-110)
[2020-12-06] MEDS: Ipratropium/Albuterol Sulfate 3 ML AMPUL.NEB INHALATION ×2 (07:19→19:17)
[2020-12-06 07:35] LABS: Absolute Lymphocyte Count 1.06 X10^3/uL (0.83-4.51); Absolute Neutrophil Count 6.3 X10^3/uL (2.0-7.7); Basophil# 0.04 X10^3/uL; Basophil% 0.5 % (0-1); Eosinophil# 0.28 X10^3/uL; Eosinophils% 3.3 % (0-5); Hematocrit 38.4 % (40-54); Lymphocyte # 1.06 X10^3/ul (0.83-4.51); Lymphocyte % 12.5 % (19-41); Mean Corp Hgb Conc 31.3 g/dL (32-36); Mean Corpuscular Volume 89.5 fL (80-94); Mean Platelet Vol. 9.9 fl (6.2-12.0); Monocyte% 9.4 % (0-10); NRBC Flagged by Analyzer 0 % (0-5); Neutrophil # 6.29 X10^3/uL (2.7-7.7); Neutrophil % 73.9 % (47-70); Platelet Count 231 K/mm3 (150-450); RBC Distribution Width CV 13.1 % (11.6-14.6); RBC Distribution Width SD 42.4 fl (35.1-43.9); Red Blood Count 4.29 M/mm3 (4.6-6.2); White Blood Count 8.5 K/mm3 (4.4-11.0)
[2020-12-06 07:44] LABS: Anion Gap 2 (5-15); BUN 36 mg/dL (7-18); BUN/Creat Ratio 16.7 RATIO (10-20); Calcium,Total 8.8 mg/dL (8.5-10.1); Chloride 106 mmol/L (98-107); Creatinine, Serum 2.16 mg/dL (0.70-1.30); EST Glomerular Filtration Rate 31 mL/min (>60); Est Glom Filt Rate - Afr Amer 38 mL/min (>60); Estimated Creatinine Clearance 29.94 ml/min; Glucose 156 mg/dL (74-106); Magnesium 2.3 mg/dL (1.6-2.6); Potassium 4.1 mmol/L (3.5-5.1); Sodium Level 138 mmol/L (136-145)
--- NOTE | 2020-12-06 09:36 | CASEMGMT ---
Social Work Pt is not medically ready for discharge today. Clinical updates faxed to [facility] and VM left with Zo at [facility] and updated. Plan: [facility], when medically ready KATHY Navarro
--- NOTE | 2020-12-06 11:37 | CPS ---
tx turned off by nursing
[2020-12-06] MEDS: Fluticasone 0.05% 1 SPRAY NASAL.SRY NASAL (12:08)
[2020-12-06] MEDS: Insulin Lispro 100 UNIT/ML INSULN.PEN SC ×3 (12:08→22:42)
[2020-12-06] MEDS: Nystatin Powder 15gm Bottle 1 APPLIC TOPICAL ×2 (12:09→22:38)
[2020-12-06 12:15] LABS: Bedside Glucose 179 mg/dL (70-110)
[2020-12-06] MEDS: Dext 5%-0.45% NS 1,000 ML 50 ML IV (14:51)
--- NOTE | 2020-12-06 14:58 | PN.HOSP_ITS ---
Subjective Subjective Patient was confused and lethargic in the morning but by afternoon is more awake and alert. Speech therapist following him and scheduled for modified barium swallow study tomorrow a.m. Currently n.p.o. Objective Data Objective Data Vital Signs: Vital Signs Temp Pulse Resp BP Pulse Ox 98.5 F 77 21 H 147/81 H 95 12/06/20 09:21 12/06/20 11:36 12/06/20 11:36 12/06/20 09:21 12/06/20 09:21 Oxygen Flow Rate (L/min) 3 Oxygen Delivery Method Nasal Cannula Weight: 332 lb 14.368 oz Body Mass Index (BMI) 45.1 Intake & Output: Intake and Output for Last 24 Hours 12/04/20 12/05/20 12/06/20 23:59 23:59 23:59 Intake Total 2075 / 2075 1417.33 / 1417.33 1090.67 / 1090.67 Output Total 3575 / 3575 1150 / 1150 Balance -1500 / -1500 267.33 / 267.33 1090.67 / 1090.67 Lab / Micro Data Result Diagrams: 12/06/20 07:00 12/06/20 07:00 Labs: Laboratory Results - last 24 hr 12/05/20 12/05/20 12/06/20 17:33 21:39 06:42 WBC RBC Hgb Hct MCV MCH MCHC RDW Std Deviation RDW Coeff of Hilary Plt Count MPV Immature Gran % (Auto) Neut % (Auto) Lymph % (Auto) [place] % (Auto) Eos % (Auto) Baso % (Auto) Absolute Neuts (auto) Absolute Lymphs (auto) Nucleated RBC % Sodium Potassium Chloride Carbon Dioxide Anion Gap BUN Creatinine Estim Creat Clear Calc Est GFR (MDRD) Af Amer Est GFR (MDRD) Non-Af BUN/Creatinine Ratio Glucose Calcium Magnesium POC Glucose 309 H 296 H 144 H 12/06/20 12/06/20 12/06/20 07:00 07:00 12:06 WBC 8.5 RBC 4.29 L Hgb 12.0 L Hct 38.4 L MCV 89.5 MCH 28.0 MCHC 31.3 L RDW Std Deviation 42.4 RDW Coeff of Hilary 13.1 Plt Count 231 MPV 9.9 Immature Gran % (Auto) 0.400 Neut % (Auto) 73.9 H Lymph % (Auto) 12.5 L [place] % (Auto) 9.4 Eos % (Auto) 3.3 Baso % (Auto) 0.5 Absolute Neuts (auto) 6.3 Absolute Lymphs (auto) 1.06 Nucleated RBC % 0 Sodium 138 Potassium 4.1 Chloride 106 Carbon Dioxide 30.0 Anion Gap 2 L BUN 36 H Creatinine 2.16 H Estim Creat Clear Calc 29.94 Est GFR (MDRD) Af Amer 38 L Est GFR (MDRD) Non-Af 31 L BUN/Creatinine Ratio 16.7 Glucose 156 H Calcium 8.8 Magnesium 2.3 POC Glucose 179 H Micro: Microbiology 12/05/20 10:34 Mucosa - Nose SARS-CoV-2 Antigen (Rapid) - Final Physical Exam Narrative General: Confused, low pitched voice, disoriented. More awake alert in afternoon. Morbid obesity BMI 45.1 kg/m?, present since admission HEENT: Atraumatic, PERRLA, EOMI, Normocephalic Oral: No Gingival or Mucosal Lesions/ Ulcerations Neck: Supple, No JVD, Negative Carotid Bruits Lungs: Air entry diminished in bilateral lung bases. Crepitation found on right and left lung base. Cardiovascular: Regular rate, Regular Rhythm, Normal S1, Normal S2, No murmurs Abdomen: Bowel Sounds Present, Soft, Non Tender, Non-Distended : No renal angle tenderness. No suprapubic tenderness. Extremities: Left shoulder in swathe. Mild tenderness present over shoulder region, diffuse. Capillary Refill Less than 3 Seconds Skin: Multiple superficial skin ulcer and bruise over both legs improving, venous hypertension Musculoskeletal: recurrent fall. Decreased muscle strength of lower extr emities. Neurological: Cranial nerves II-XII grossly intact, Deep Tendon Reflexes 2+/4 and Symmetrical, Neuro grossly intact Psych/Mental Status: Confused. Assessment & Plan Assessment/Plan (1) Fracture of humeral head, left, closed: (2) Debility: PLAN: This is an 80 years old male patient presented to the emergency room because of fall, had a recent left humeral head and neck fracture, has been having frequent falls and difficulty ambulating and is being admitted for evaluation and treatment. Patient had fallen recently, injured his shoulder was seen in [place] ER from where he was discharged home. #1 acute traumatic comminuted impacted fracture of the left humeral head and neck: Conservative management for now. Dr. Bhargav Brady was notified for consult but he wanted to follow as an outpatient. 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 Continue PT and OT. Possible right middle lobe aspiration pneumonia: Patient is confused, disoriented with increasing leukocyte count is still normal but neutrophilia therefore started on IV antibiotic Unasyn. Urinary antigens ordered. Incentive spirometry and Pep. Bronchodilator as needed. Speech therapy evaluation. Make the patient n.p.o. IV fluid for nutritional need 12/06: His speech therapist following it. Modified barium swallow tomorrow a.m and then decide further consistency of food. #2 physical debility/frequent falls/functional decline: Patient has been having frequent falls, difficulty ambulating. #3 chronic right leg ulcers: Small superficial ulcer and erosions over right lower leg, mainly medial aspect suggestive of venous ulcers. It was dressed with as Adaptic dressing. Minimal drainage. #4 paroxysmal atrial fibrillation: Currently, rate is controlled. Patient is not on any medication for rate control and according to him, he was taken off Eliquis because of GI bleed. Will check pro time and INR. #5 type 2 diabetes mellitus: ADA diet, Accu-Cheks, sliding scale, continue home doses of Lantus and Humalog. Lantus insulin added. #6 stage IIIb chronic kidney disease: Baseline creatinine has been around 1.5 to 2.4 mg/dL. Admission creatinine is stable at baseline. Creatinine is on baseline. 12/04: BUN/creatinine is stable 30/2.42. 12/06: Slight improvement in creatinine but no significant difference. #7 hypertension: Blood pressure stable, continue nitrate and losartan as well as nifedipine. Hydralazine 10 mg IV added as needed for systolic blood pressure more than 170 mmHg #8 history of DVT/PE: Currently he is off Eliquis, we need to confirm with his pharmacy or PCPs office. #9 DVT prophylaxis: Subcu heparin. Microbiology Past 72 Hours 12/05/20 10:34 Mucosa - Nose SARS-CoV-2 Antigen (Rapid) - Final Laboratory Results 12/05/20 17:33: POC Glucose 309 H 12/05/20 21:39: POC Glucose 296 H 12/06/20 06:42: POC Glucose 144 H 12/06/20 07:00: WBC 8.5, RBC 4.29 L, Hgb 12.0 L, Hct 38.4 L, MCV 89.5, MCH 28.0, MCHC 31.3 L, RDW Std Deviation 42.4, RDW Coeff of Hilary 13.1, Plt Count 231, MPV 9.9, Immature Gran % (Auto) 0.400, Neut % (Auto) 73.9 H, Lymph % (Auto) 12.5 L, [place] % (Auto) 9.4, Eos % (Auto) 3.3, Baso % (Auto) 0.5, Absolute Neuts (auto) 6.3, Absolute Lymphs (auto) 1.06, Nucleated RBC % 0 12/06/20 07:00: Sodium 138, Potassium 4.1, Chloride 106, Carbon Dioxide 30.0, Anion Gap 2 L, BUN 36 H, Creatinine 2.16 H, Estim Creat Clear Calc 29.94, Est GFR (MDRD) Af Amer 38 L, Est GFR (MDRD) Non-Af 31 L, BUN/Creatinine Ratio 16.7, Glucose 156 H, Calcium 8.8, Magnesium 2.3 12/06/20 12:06: POC Glucose 179 H Charges/Coding Visit Charges Inpatient E&M: 67429 Subs Hosp L2
[2020-12-06 16:40] LABS: Bedside Glucose 201 mg/dL (70-110)
[2020-12-06 22:51] LABS: Bedside Glucose 187 mg/dL (70-110)
[2020-12-07 05:29] VITALS: BP 147/77; PULSE 69; RESP 18; TEMP 36.6; O2SAT 97
[2020-12-07] MEDS: Insulin Lispro 100 UNIT/ML INSULN.PEN SC ×2 (06:52→12:19)
[2020-12-07] MEDS: Heparin Injection (Vial) 5,000 UNIT/ML VIAL 5000 UNIT SC ×2 (06:52→14:27)
[2020-12-07 07:00] LABS: Bedside Glucose 160 mg/dL (70-110)
[2020-12-07 07:18] VITALS: O2SAT 93
--- NOTE | 2020-12-07 08:34 | DS.PCM_ITS ---
Providers Date of Admission: 12/02/20 Primary Care Physician: Dr. Wili Nelson, Consultations 12/02/20 15:10 Consult: Onc/Wound/windsurfing instructor Routine Comment: Reason for Consult:: Chronic right leg ulcers. Consult: Orthopedics Routine Consulting Provider: Bhargav Brady Reason for Consult: Left humeral head and neck fracture EMERGENT Consult: No MD Notified: Yes Date Notified: 12/02/20 Time Notified: 16:46 Method of Notification: Verbal Reason For Visit: LEFT HUMERAL HEAD AND NECK FRACTURE, DEBILITY Diagnosis Discharge Diagnosis (1) Fracture of humeral head, left, closed: Status: Acute Code(s): S42.292A - Other displaced fracture of upper end of left humerus, initial encounter for closed fracture (2) Debility: Status: Acute Code(s): R53.81 - Other malaise Medications at Discharge Home Medications citalopram 40 mg PO DAILY 05/29/15 tamsulosin 0.8 mg PO DAILY 07/08/16 gabapentin 300 - 600 mg PO TID PRN PRN 03/11/18 isosorbide mononitrate 30 mg PO DAILY 03/12/18 atorvastatin 40 mg PO DAILY 04/02/20 losartan 100 mg PO DAILY 04/02/20 Mometason Formoterol 100 mcg INHALATION Q12H PRN 04/11/20 fluticasone propionate 50 mcg NASAL DAILY 04/11/20 nifedipine 60 mg PO DAILY 04/11/20 nitroglycerin 0.4 mg SL Q5M PRN 04/11/20 sucralfate 1 gm PO 4X/DAY PRN 04/11/20 nystatin 1 applic TOPICAL 0600,2200 12/02/20 pantoprazole 40 mg PO DAILY 12/02/20 acetaminophen [Tylenol] 650 mg PO Q6H PRN PRN #0 tab 12/07/20 albuterol sulfate 2 puff INHALATION Q6H PRN PRN #0 g 12/07/20 albuterol sulfate 2.5 mg INHALATION Q4H PRN PRN #0 ml 12/07/20 amoxicillin-pot clavulanate [Augmentin] 1 tab PO BID #10 tab 12/07/20 apixaban [Eliquis] 2.5 mg PO BID #60 tab 12/07/20 bisacodyl 10 mg [place] DAILY PRN #0 ea 12/07/20 ferrous sulfate 325 mg PO DAILY #0 tab 12/07/20 insulin glargine 10 unit SQ BID #0 ml 12/07/20 insulin lispro 5 unit SQ TIDCM #0 ml 12/07/20 polyethylene glycol 3350 17 g PO DAILY #0 ea 12/07/20 sennosides-docusate sodium [Stool Softener-Stimulant Laxat] 2 tab PO BID #0 tab 12/07/20 Hospital Course Summary of Care Provided Hospital Course: This is an 80 years old male patient presented to the emergency room because of fall, had a recent left humeral head and neck fracture, has been having frequent falls and difficulty ambulating and is being admitted for evaluation and treatment. Patient had fallen recently, injured his shoulder was seen in [place] ER from where he was discharged home. #1 acute traumatic comminuted impacted fracture of the left humeral head and neck: Conservative management during hospital course Dr. Bhargav Brady was notified for consult but he wanted to follow as an outpatient in 1 week. 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 Continue PT and OT. Possible right middle lobe aspiration pneumonia: Patient was confused, disor iented with increasing leukocyte count is still normal but neutrophilia therefore started on IV antibiotic Unasyn. COVID-19 NTM rapid negative. Incentive spirometry and Pep. Bronchodilator as needed. Patient was made NPO. Speech therapy evaluation was done and had modified barium swallow/videof luoroscopic study. Found to have moderate oropharyngeal dysphagia and recommended soft and bite-size texture food with honey thick liquid with one-to-one close supervision. Speech therapy to continue in assisted. #2 physical debility/frequent falls/functional decline: Patient has been having frequent falls, difficulty ambulating. #3 chronic right leg ulcers: Small superficial ulcer and erosions over right lower leg, mainly medial aspect suggestive of venous ulcers. It was dressed with as Adaptic dressing. Minimal drainage. #4 paroxysmal atrial fibrillation: Currently, rate is controlled. Patient is not on any medication for rate control and according to him, he was taken off [place] iquis because of GI bleed. Will check pro time and INR. #5 type 2 diabetes mellitus: ADA diet, Accu-Cheks, sliding scale, continue home doses of Lantus and Humalog. Insulin dose Lantus and Humalog were adjusted. #6 stage IIIb chronic kidney disease: Baseline creatinine has been around 1.5 to 2.4 mg/dL. Admission creatinine is stable at baseline. Creatinine is on baseline. Antibiotic Augmentin and Eliquis adjusted as per the kidney function. #7 hypertension: Blood pressure stable, continue nitrate and losartan as well as nifedipine. Hydralazine 10 mg IV added as needed for systolic blood pressure more than 170 mmHg #8 history of DVT/PE: On Eliquis 2.5 mg p.o. twice daily as he is 8-year-old and creatinine more than 1.5. Discharge medication reconciliation done. Discharge follow-up instructions completed. Discharge process discussed with the patient and all questions were answered to patient's satisfaction. Discharged to SNF. Total time spent, exact 35 minutes on discharge meds reconciliation, examination, coordination of care with nurses and ancillary staff, review of i maging and blood test and discussion with the patient on follow-up instructions Clinical Impression(s) from Imaging Studies Chest X-Ray 12/02/20 11:05 IMPRESSION: Normal x-ray examination of the chest. Electronically Signed: Maxwell Cerda MD at 11:49 EDT Tel , Service support , Shoulder X-Ray 12/02/20 11:05 IMPRESSION: Acute comminuted impacted fracture the left humeral head and neck. Electronically Signed: Maxwell Cerda MD at 11:38 EDT Tel , Service support , Chest X-Ray 12/05/20 09:55 IMPRESSION: New focal infiltrate in the right midlung. Electronically Signed: Seymour Shelley MD at 10:26 EDT , Service support , Microbiology Past 72 Hours 12/05/20 10:34 Mucosa - Nose SARS-CoV-2 Antigen (Rapid) - Final Laboratory Results 12/06/20 16:30: POC Glucose 201 H 12/06/20 22:41: POC Glucose 187 H 12/07/20 06:50: POC Glucose 160 H 12/07/20 11:16: POC Glucose 201 H Physical Exam Narrative Seen and examined. Patient is awake and alert. Left leg swelling, edema and bruise have improved. Right lower leg has ulcer. On modified diet. General: AAOx3. Morbid obesity BMI 45.1 kg/m?, present since admission HEENT: Atraumatic, PERRLA, EOMI, Normocephalic Oral: No Gingival or Mucosal Lesions/ Ulcerations Neck: Supple, No JVD, Negative Carotid Bruits Lungs: Air entry diminished in bilateral lung bases. No crepitation/rhonchi. Cardiovascular: Regular rate, Regular Rhythm, Normal S1, Normal S2, No murmurs Abdomen: Bowel Sounds Present, Soft, Non Tender, Non-Distended : No renal angle tenderness. No suprapubic tenderness. Extremities: Left shoulder in swathe. Mild tenderness present over shoulder region, diffuse. Capillary Refill Less than 3 Seconds Skin: Multiple superficial skin ulcer and bruise over right leg improving, venous hypertension Musculoskeletal: recurrent fall. Decreased muscle strength of lower extremities. Neurological: Cranial nerves II-XII grossly intact, Deep Tendon Reflexes 2+/4 and Symmetrical, Neuro grossly intact Psych/Mental Status: Flat affect. Weight / BMI Weight Weight: 332 lb 14.368 oz Body Mass Index (BMI) 45.1 ABG / Lab / Microbiology Data Result Diagrams: 12/06/20 07:00 12/06/20 07:00 Laboratory: Laboratory Results - last 24 hr 12/06/20 12/06/20 12/06/20 12:06 16:30 22:41 POC Glucose 179 H 201 H 187 H 12/07/20 06:50 POC Glucose 160 H Microbiology: Microbiology 12/05/20 10:34 Mucosa - Nose SARS-CoV-2 Antigen (Rapid) - Final Meaningful Use Info Meaningful Use Diagnoses (Choose all that apply): None applicable Discharge Plan Admission Admit Date/Time: 12/02/20 12:29 Primary Reason for Your Visit: Left humerus head and neck fracture Attending Provider: Duncan Paris Primary Care Provider: Wili Nelson Consulting Providers: Bhargav Brady Instructions Additional Instructions / Restrictions: Follow-up Bhargav Omer in 1 week Discharge Orders/Prescriptions Prescriptions: New acetaminophen [Tylenol] 325 mg Tablet 650 mg PO Q6H PRN PRN (Reason: Pain Score 1-10/Temp > 100.7 F) Qty: 0 RF: 0 albuterol sulfate 2.5 mg /3 mL (0.083 %) Solution For Nebulization 2.5 mg inhalation Q4H PRN PRN (Reason: Shortness of breath, wheezing) Qty: 0 RF: 0 polyethylene glycol 3350 17 gram Powder In Packet 17 g PO DAILY Qty: 0 RF: 0 sennosides-docusate sodium [Stool Softener-Stimulant Laxat] 8.6-50 mg Tablet 2 tab PO BID Qty: 0 RF: 0 bisacodyl 10 mg Suppository 10 mg [place] DAILY PRN (Reason: Constipation) Qty: 0 RF: 0 amoxicillin-pot clavulanate [Augmentin] 500-125 mg tablet 1 tab PO BID Qty: 10 RF: 0 Eliquis 2.5 mg tablet 2.5 mg PO BID Qty: 60 RF: 0 Continued citalopram 40 MG tablet 40 mg PO DAILY RF: 0 tamsulosin 0.4 MG capsule 0.8 mg PO DAILY RF: 0 gabapentin 300 MG capsule 300 - 600 mg PO TID PRN PRN (Reason: nerve pain) RF: 0 isosorbide mononitrate 30 MG tablet 30 mg PO DAILY RF: 0 losartan 50 MG tablet 100 mg PO DAILY RF: 0 atorvastatin 40 mg tablet 40 mg PO DAILY RF: 0 nifedipine 60 MG tablet 60 mg PO DAILY RF: 0 sucralfate 1 GM tablet 1 gm PO 4X/DAY PRN (Reason: Stomach) RF: 0 nitroglycerin 0.4 MG tablet, sublingual 0.4 mg SL Q5M PRN (Reason: Chest Pain) RF: 0 fluticasone propionate 1 SPRAY spray,suspension 50 mcg NASAL DAILY RF: 0 Mometason Formoterol 100 mcg INHALATION Q12H PRN (Reason: Sob &/Or Wheezing) RF: 0 pantoprazole 40 MG tablet,delayed release (DR/EC) 40 mg PO DAILY RF: 0 nystatin 1 APPLIC powder 1 applic TOPICAL 0600,2200 RF: 0 Changed ferrous sulfate 325 MG tablet 325 mg PO DAILY Qty: 0 RF: 0 albuterol sulfate 1 INHALER inhaler 2 puff INHALATION Q6H PRN PRN (Reason: SOB or Wheezing) Qty: 0 RF: 0 insulin lispro 100 UNIT/ML insulin pen 5 unit SQ TIDCM Qty: 0 RF: 0 insulin glargine 100 UNIT/ML insulin pen 10 unit SQ BID Qty: 0 RF: 0 Discontinued apixaban 5 MG tablet 5 mg PO BID RF: 0 Referrals / Follow Up: Wili Nelson DO [Primary Care Provider] - Within 1 Week Bhargav Brady MD [STAFF PHYSICIAN] - Within 1 Week (In 10 days) Disposition Disposition (needs filled in before D/C Order can be placed): [facility] F acility Charges/Coding Visit Charges Inpatient E&M: 74488 Disch Hosp
--- NOTE | 2020-12-07 08:34 | TREXTCAR_ITS ---
Diet Soft bite-size food with nectar thick liquid. Routine Orders/Code Status Suppository Type: Dulcolax 10mg Suppository Frequency: Daily PRN O2 Liters per Minute: 3 litre/m during day to keep pulse ox more than 90% Keep PO Greater than or Equal to (%): 90 Routine Lab Work: CBC and BMP Wound(s) left knee: Wound Type: Abrasion right knee: Wound Type: Abrasion Dressing Change: Adaptic right leg: Wound Type: open blisters right medial lower leg: Wound Type: nearly healed stasis ulcer Dressing Change: Dry Sterile Dressing right lateral lower leg (distal): Wound Type: Abrasion Dressing Change: Adaptic right lateral lower leg (proximal): Wound Type: Abrasion Dressing Change: Adaptic Therapies Weight Bearing: Weight bearing as tolerated Extremity Affected:: Bilateral Lower Physical Therapy: Eval and Treat Occupational Therapy: Eval and Treat Speech Therapy: Eval and Treat Problem/Diagnosis (1) Fracture of humeral head, left, closed: Status: Acute (2) Debility: Status: Acute Allergies/Procedures Done in Hospital Allergies MARGIE Inhibitors Allergy (Unknown, Verified 10/02/20 03:20) edema cefepime Allergy (Verified 10/02/20 03:20) weakness and falling WEAKNESS & FALLING ipodate [Ipodate] Allergy (Verified 10/02/20 03:20) Shortness of breath levofloxacin [Levofloxacin] Allergy (Verified 10/02/20 03:20) Anaphylaxis lisinopril Allergy (Verified 10/02/20 03:20) Shortness of breath ofloxacin Allergy (Verified 10/02/20 03:20) Other Quinolones Allergy (Verified 10/02/20 03:20) Anaphylaxis Type of Care/Length of Stay Estimated LOS: Convalescent Care Less Than 30 days Type of Care Needed: Skilled Rehab Potential: Fair Prognosis: Fair Additional Orders/Day of Discharge Day of Discharge: 12/07/20 Dietary and Speech Recommendations Dietitian Recommendations/Changes: Will continue diet as ordered. Discharge Plan Admission Admit Date/Time: 12/02/20 12:29 Primary Reason for Your Visit: Left humerus head and neck fracture Attending Provider: Duncan Paris Primary Care Provider: Wili Nelson Consulting Providers: Bhargav Brady Instructions Additional Instructions / Restrictions: Follow-up Bhargav Omer in 1 week Discharge Orders/Prescriptions Prescriptions: New acetaminophen [Tylenol] 325 mg Tablet 650 mg PO Q6H PRN PRN (Reason: Pain Score 1-10/Temp > 100.7 F) Qty: 0 RF: 0 albuterol sulfate 2.5 mg /3 mL (0.083 %) Solution For Nebulization 2.5 mg inhalation Q4H PRN PRN (Reason: Shortness of breath, wheezing) Qty: 0 RF: 0 polyethylene glycol 3350 17 gram Powder In Packet 17 g PO DAILY Qty: 0 RF: 0 sennosides-docusate sodium [Stool Softener-Stimulant Laxat] 8.6-50 mg Tablet 2 tab PO BID Qty: 0 RF: 0 bisacodyl 10 mg Suppository 10 mg [place] DAILY PRN (Reason: Constipation) Qty: 0 RF: 0 amoxicillin-pot clavulanate [Augmentin] 500-125 mg tablet 1 tab PO BID Qty: 10 RF: 0 Eliquis 2.5 mg tablet 2.5 mg PO BID Qty: 60 RF: 0 Continued citalopram 40 MG tablet 40 mg PO DAILY RF: 0 tamsulosin 0.4 MG capsule 0.8 mg PO DAILY RF: 0 gabapentin 300 MG capsule 300 - 600 mg PO TID PRN PRN (Reason: nerve pain) RF: 0 isosorbide mononitrate 30 MG tablet 30 mg PO DAILY RF: 0 losartan 50 MG tablet 100 mg PO DAILY RF: 0 atorvastatin 40 mg tablet 40 mg PO DAILY RF: 0 nifedipine 60 MG tablet 60 mg PO DAILY RF: 0 sucralfate 1 GM tablet 1 gm PO 4X/DAY PRN (Reason: Stomach) RF: 0 nitroglycerin 0.4 MG tablet, sublingual 0.4 mg SL Q5M PRN (Reason: Chest Pain) RF: 0 fluticasone propionate 1 SPRAY spray,suspension 50 mcg NASAL DAILY RF: 0 Mometason Formoterol 100 mcg INHALATION Q12H PRN (Reason: Sob &/Or Wheezing) RF: 0 pantoprazole 40 MG tablet,delayed release (DR/EC) 40 mg PO DAILY RF: 0 nystatin 1 APPLIC powder 1 applic TOPICAL 0600,2200 RF: 0 Changed ferrous sulfate 325 MG tablet 325 mg PO DAILY Qty: 0 RF: 0 albuterol sulfate 1 INHALER inhaler 2 puff INHALATION Q6H PRN PRN (Reason: SOB or Wheezing) Qty: 0 RF: 0 insulin lispro 100 UNIT/ML insulin pen 5 unit SQ TIDCM Qty: 0 RF: 0 insulin glargine 100 UNIT/ML insulin pen 10 unit SQ BID Qty: 0 RF: 0 Discontinued apixaban 5 MG tablet 5 mg PO BID RF: 0 Referrals / Follow Up: Wili Nelson DO [Primary Care Provider] - Within 1 Week Bhargav Brady MD [STAFF PHYSICIAN] - Within 1 Week (In 10 days) Disposition Disposition (needs filled in before D/C Order can be placed): Assisted Facility
[2020-12-07 09:00] VITALS: O2SAT 94
[2020-12-07 09:18] VITALS: BP 153/69; PULSE 71; RESP 18; TEMP 37; O2SAT 98
--- NOTE | 2020-12-07 11:13 | SP.MBSS_ITS ---
Modified Barium Swallow - Patient Information Study Date: 12/07/20 Study Time: 10:00 Direct Billable Minutes: 150 Total Minutes procedure & reportin Diagnosis: Dysphagia, oropharyngeal phase Referring Physician: Duncan Paris Reason for Referral: Objectively assess swallow function, risk for aspiration, and to determine recommendations for least restrictive diet textures and compensatory strategies to facilitate safe po intake. 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 3 days prior, he had another fall and he went to [facility] ER, found to have left humerus fracture, was put in a sling and discharged home. Patient was admitted for left humeral fracture, debility and frequent falls. During hospitalization, he presented with increased coughing, pooling of saliva. Chest X ray 12/05/20 revealed new focal infiltrate in the right midlung. Pt referred for speech consult due to concerns for aspiration pneumonia. Pt was evaluated by speech therapy on 12/07/20 with recommendation for NPO due to poor secretion management, poor alertness, wet breath quality, and concerns for aspiration with trials of liquids and solids. The pt was referred for current MBS study to objectively assess aspiration risk and appropriateness for po intake. The pt has a history of dysphagia. He participated in 3.5 weeks of speech therapy at [facility] from 04/12/2020 - 05/07/2020 to address aphasia and moderate dysphagia secondary left pontine infarct. He was discharged home with recommendation for continued use of mildly thick liquids and soft textures and FFWP upon d/c w/ HH ST to continue tx at next level of care. The pt has a history of silent aspiration w/ thin liquids evident on MBS study completed on 05/02/2020. The MBS study recommended the following strategies: chin tuck via straw, reduced bolus volume / rate of ingestion, seated upright at 90 degrees during PO intake, remain upright for 30-60 minutes post meal (GERD precaution). Current Diet Ordered: NPO Dentition: WNL - Study Findings Consistencies: Thin Liquid, [place] Thick Liquid, Honey Thick Liquid, Pudding, Cookie - Penetration-Aspiration Scale Penetration-Aspiration Scale: OBJECTIVE ASSESSMENT OF SWALLOW FUNCTION (QUANTITATIVE ? PER TRIAL): PENETRATION / ASPIRATION SCALE (MORENO): 1 = does not enter airway 2 = enters airway/above vocal folds/ejected 3 = enters airway/above vocal folds/not ejected 4 = enters airway/contacts vocal folds/ejected 5 = enters airway/contacts vocal folds/not ejected 6 = enters airway/below vocal folds/ejected 7 = enters airway/below vocal folds/not ejected despite effort 8 = enters airway/below vocal folds/no effort VIDEOFLOROSCOPIC SCALE SCORE (MORENO): Grade I = aspiration of material that has penetrated into the laryngeal vestibule, intact cough reflex Grade II = aspiration < 10 % of the bolus, intact cough reflex Grade III = aspiration of < 10 % of the bolus, reduced cough reflex or aspiration of > 10 % of the bolus, intact cough reflex Grade IV = aspiration of > 10 % of the bolus, reduced cough reflex - Penetration-Aspiration Scale Score Thin Liquid via teaspoon Result: 2= enter airway/above vocal folds/ejected Thin Liquid via teaspoon Trial 2 Result: 1= does not enter airway Thin Liquid via large single sip from cup Result: 3= enters airways/above vocal folds/not ejected Comment: Cannot definitively rule out aspiration due to pt's body habitus. Thin Liquid via small single sip from cup Result: 3= enters airways/above vocal folds/not ejected [place] Thick Liquid via teaspoon Result: 1= does not enter airway [place] Thick Liquid via small single sip from cup Result: 3= enters airways/above vocal folds/not ejected - Cannot definitively rule out aspiration due to pt's body habitus. [place] Thick Liquid via single sip from straw Result: 2= enter airway/above vocal folds/ejected [place] Thick Liquid via single sip from straw Chin tuck Comment: Unable to score due to pt's body habitus. Pt presented with coughing immediately after the swallow. Honey Thick Liquid via small single sip from cup Result: 1= does not enter airway Pudding Result: 1= does not enter airway Cookie Result: 1= does not enter airway [place] Thick Liquid via teaspoon Trial 2 Result: 2= enter airway/above vocal folds/ejected [place] Thick Liquid via small single sip from cup Trial 2 Result: 2= enter airway/above vocal folds/ejected [place] Thick Liquid via single sip from straw Trial 2 Result: 3= enters airways/above vocal folds/not ejected - Cannot definitively rule out aspiration due to pt's body habitus. - Oral Phase Labial Seal: Interlabial escape, no progression to anterior lip Tongue Control During Bolus Hold: Posterior escape of less than half of bolus Bolus Preparation/Mastication: Slow prolonged chewing/mashing with complete recollection Bolus Transport/Lingual Motion: Delayed initiation of tongue motion Oral Residue: Residue collection on oral structures - Pharyngeal Phase Initiation of Pharyngeal Swallow: Bolus head in pyriforms Soft Palate Elevation: Trace column of contrast/air between soft palate and pharyngeal wall Laryngeal Elevation: Partial superior movement thyroid cart/partial apprx aryt- epig petiole Anterior Hyoid Excursion: Partial anterior movement Epiglottic Movement: Complete inversion Laryngeal Vestibule Closure at Height of Swallow: Incomplete; narrow column of air/contrast in laryngeal vestibule Pharyngeal Stripping Wave: Present - diminished Pharyngoesophageal Segment Opening: Parital distension and partial duration; parital obstruction of flow Tongue Base Retraction: Narrow column of contrast between tongue base & post. pharyngeal wall Pharyngeal Residue: Collection of residue within or on pharyngeal structures - Treatment Strategies Effects of treatment strategies attemped:: The pt benefits from decreased bolus volume and decreased rate of intake to reduce laryngeal penetration. Trialed chin tuck strategy; however, was unable to view effectiveness of strategy due to pt's body habitus. - Diagnosis/Impression Diagnosis: moderate oropharyngeal phase dysphagia (R13.12) Impression: The patient presents with moderate oropharyngeal dysphagia. The oral phase of the swallow is marked by deficits in mastication with prolonged chewing and mildly delayed initiation of tongue motion with mild oral residue. The patient additionally has a mild swallow onset delay of the oral phase resulting in premature bolus loss. Pharyngeal phase deficits were characterized by delayed pharyngeal swallow onset timing resulting in suboptimal bolus location on the posterior wall of the epiglottis or in the pyriforms upon swallow onset. The patient also has reduced airway closure during deglutition attributed to reduced laryngeal elevation and anterior hyoid excursion resulting in decreased closure of the laryngeal vestibule. The patient additionally, presented with reduced posterior pharyngeal stripping wave and mildly reduced tongue base retraction resulting in mild pharyngeal residues. The pt presented with frequent penetration of thin and nectar thickened liquids. Could not rule out aspiration of thin and nectar thickened liquids due to body habitus, as the COMB TENDER was unable to view the level of the vocal cords after the swallow. In response to laryngeal penetration of nectar and thin liquids, the patient did NOT elicit cough response. When cued by the COMB TENDER, the pt elicited weak cough reflex. The pt has a known history of SILENT aspiration of thin liquids. Unable to view esophageal phase of the swallow. - Recommendations Diet: Honey-thick Liquids Comment: Soft and Bite Sized Textures Compensatory Strategies: Small Bites, Small Sips, Slow Rate, Sitting upright, Remain sitting upright for 30 minutes after PO intake Supervision: 1:1 Close Supervision Recommend Repeat Modified Barium Swallow: Yes Comment: Will recommend repeat MBS study in 3 months. Need for Skilled Speech Therapy Services: Yes Comment: Will recommend the patient for continued speech therapy to address moderate deficits in swallow function. Would consider the patient for oropharyngeal strengthening with emphasis on hyolaryngeal elevation/excursion and tongue base retraction. The patient would benefit from thorough education regarding diet recommendations and recommended compensatory strategies. Education Completed: 1. Described result of evaluation., 7. Pt requires further education on strategies & risks. - Status Active ST Patient: Active - Contact Information [facility] Speech Therapy:: Jessica Benton M.A., [facility] Speech Language Pathologist [facility] [address] [place] [address] [phone]
[2020-12-07 11:26] LABS: Bedside Glucose 201 mg/dL (70-110)
[2020-12-07] MEDS: Nystatin Powder 15gm Bottle 1 APPLIC TOPICAL (12:15)
[2020-12-07] MEDS: Fluticasone 0.05% 1 SPRAY NASAL.SRY NASAL (12:16)
[2020-12-07] MEDS: Ferrous Sulfate 325 MG Tablet PO (12:20)
[2020-12-07] MEDS: Ipratropium/Albuterol Sulfate 3 ML AMPUL.NEB INHALATION (13:17)
[2020-12-07 13:33] VITALS: PULSE 77; RESP 20
--- NOTE | 2020-12-07 14:23 | CASEMGMT ---
Pt is ready for discharge to [facility]. YORDY faxed hospital exemption, negative COVID and all discharge instructions faxed to [facility]. [facility], set up a 3:30pm ambulance. YORDY let pt, pt's RNZo at [facility] and pt's daughter Antoinette know time of transport. TANK Manning
--- NOTE | 2020-12-07 14:57 | PHA.DC.MR ---
Pharmacy Service has performed discharge medication reconciliation for this patient upon transfer to [facility]. Home Medications citalopram 40 mg PO DAILY 05/29/15 tamsulosin 0.8 mg PO DAILY 07/08/16 gabapentin 300 - 600 mg PO TID PRN PRN 03/11/18 isosorbide mononitrate 30 mg PO DAILY 03/12/18 atorvastatin 40 mg PO DAILY 04/02/20 losartan 100 mg PO DAILY 04/02/20 Mometason Formoterol 100 mcg INHALATION Q12H PRN 04/11/20 fluticasone propionate 50 mcg NASAL DAILY 04/11/20 nifedipine 60 mg PO DAILY 04/11/20 nitroglycerin 0.4 mg SL Q5M PRN 04/11/20 sucralfate 1 gm PO 4X/DAY PRN 04/11/20 nystatin 1 applic TOPICAL 0600,2200 12/02/20 pantoprazole 40 mg PO DAILY 12/02/20 acetaminophen [Tylenol] 650 mg PO Q6H PRN PRN #0 tab 12/07/20 albuterol sulfate 2 puff INHALATION Q6H PRN PRN #0 g 12/07/20 albuterol sulfate 2.5 mg INHALATION Q4H PRN PRN #0 ml 12/07/20 amoxicillin-pot clavulanate [Augmentin] 1 tab PO BID #10 tab 12/07/20 apixaban [Eliquis] 2.5 mg PO BID #60 tab 12/07/20 bisacodyl 10 mg [place] DAILY PRN #0 ea 12/07/20 ferrous sulfate 325 mg PO DAILY #0 tab 12/07/20 insulin glargine 10 unit SQ BID #0 ml 12/07/20 insulin lispro 5 unit SQ TIDCM #0 ml 12/07/20 polyethylene glycol 3350 17 g PO DAILY #0 ea 12/07/20 sennosides-docusate sodium [Stool Softener-Stimulant Laxat] 2 tab PO BID #0 tab 12/07/20 The patient's discharge medication list was reviewed for discrepancies and discrepancies were resolved.
[2020-12-07 14:59] VITALS: BP 179/84; PULSE 73; RESP 18; TEMP 37; O2SAT 97
== END 2020-12-07 15:55 | disposition skilled nursing facility (03) | DRG 563 ==
LOC: ED 12:18 → MS3 13:12
PROVIDERS: Admitting Provider Hospitalist; Emergency Provider Emergency Medicine; PCP Family Medicine; Visit Provider Internal Medicine
DX: S42.212A Unspecified displaced fracture of surgical neck of left humerus, initial encounter for closed fracture (principal); Z68.42 Body mass index [BMI] 45.0-49.9, adult; L97.919 Non-pressure chronic ulcer of unspecified part of right lower leg with unspecified severity; R53.81 Other malaise; W18.11XA Fall from or off toilet without subsequent striking against object, initial encounter; R29.6 Repeated falls; E11.22 Type 2 diabetes mellitus with diabetic chronic kidney disease; E11.65 Type 2 diabetes mellitus with hyperglycemia; E66.01 Morbid (severe) obesity due to excess calories; E78.5 Hyperlipidemia, unspecified; R13.12 Dysphagia, oropharyngeal phase; F32.9 Major depressive disorder, single episode, unspecified; R41.0 Disorientation, unspecified; G47.33 Obstructive sleep apnea (adult) (pediatric); I12.9 Hypertensive chronic kidney disease with stage 1 through stage 4 chronic kidney disease, or unspecified chronic kidney disease; I25.10 Atherosclerotic heart disease of native coronary artery without angina pectoris; I48.0 Paroxysmal atrial fibrillation; I45.10 Unspecified right bundle-branch block; J44.9 Chronic obstructive pulmonary disease, unspecified; N18.32 Chronic kidney disease, stage 3b; N40.0 Benign prostatic hyperplasia without lower urinary tract symptoms; K59.00 Constipation, unspecified; Z79.01 Long term (current) use of anticoagulants; Z86.711 Personal history of pulmonary embolism; Z86.718 Personal history of other venous thrombosis and embolism; Z87.891 Personal history of nicotine dependence; Z86.2 Personal history of diseases of the blood and blood-forming organs and certain disorders involving the immune mechanism; Z87.19 Personal history of other diseases of the digestive system; Z86.010 Personal history of colon polyps; Z91.19 Patient's noncompliance with other medical treatment and regimen; Z79.4 Long term (current) use of insulin; Z79.899 Other long term (current) drug therapy
CPT/HCPCS: 36415; 71045; 73030; 74230; 80048; 82962; 83735; 83880; 85025; 85610; 87426; 92526; 92610; 92611; 94640; 97110; 97163; 97167; 97530; 97535; 99251; 99283; J7030; A4216; G0463; J0295; J1940; J2405; J7799

== ENCOUNTER → 2022-05-13 | Outpatient (CLI) | payer MEDICARE, SELFPAY ==
[2022-05-13 15:33] LABS: Absolute Lymphocyte Count 1.56 X10^3/uL (0.83-4.51); Basophil# 0.05 X10^3/uL; Basophil% 0.6 % (0-1); Eosinophil# 0.19 X10^3/uL; Eosinophils% 2.2 % (0-5); Hematocrit 40.7 % (40-54); Hemoglobin 13.3 g/dL (13.0-16.5); Lymphocyte # 1.56 X10^3/ul (0.83-4.51); Mean Corp Hgb Conc 32.7 g/dL (32-36); Mean Corpuscular Volume 88.9 fL (80-94); Mean Platelet Vol. 10.5 fl (6.2-12.0); Monocyte# 0.82 X10^3/uL; Monocyte% 9.4 % (0-10); NRBC Flagged by Analyzer 0 % (0-5); Neutrophil # 6.04 X10^3/uL (2.7-7.7); Neutrophil % 69.5 % (47-70); Platelet Count 214 K/mm3 (150-450); RBC Distribution Width CV 13.5 % (11.6-14.6); RBC Distribution Width SD 44.2 fl (35.1-43.9); Red Blood Count 4.58 M/mm3 (4.6-6.2); White Blood Count 8.7 K/mm3 (4.4-11.0)
[2022-05-13 15:45] LABS: ALB/GLOB Ratio 0.8 RATIO (0.9-2.4); AST(SGOT) 15 U/L (15-37); Alanine Aminotransfer ALT/SGPT 22 U/L (16-61); Albumin, Serum 3.1 g/dL (3.2-5.0); Alkaline Phosphatase 99 U/L (45-117); Anion Gap 10 (5-15); BUN 51 mg/dL (7-18); BUN/Creat Ratio 22.6 RATIO (10-20); Calcium,Total 8.9 mg/dL (8.5-10.1); Chloride 104 mmol/L (98-107); Creatinine, Serum 2.26 mg/dL (0.70-1.30); EST Glomerular Filtration Rate 30 mL/min (>60); Est Glom Filt Rate - Afr Amer 36 mL/min (>60); Glucose 191 mg/dL (74-106); Potassium 4.4 mmol/L (3.5-5.1); Protein, Total 7.1 g/dL (6.4-8.2); Sodium Level 140 mmol/L (136-145)
== END | disposition home or self-care (01) ==
LOC: BFHLAB 13:54
PROVIDERS: PCP Family Medicine; Visit Provider Family Medicine
DX: I10 Essential (primary) hypertension (principal); I25.10 Atherosclerotic heart disease of native coronary artery without angina pectoris
CPT/HCPCS: 36415; 80053; 85025

== ENCOUNTER → 2022-11-05 | Outpatient (CLI) | payer MEDICARE, SELFPAY ==
[2022-11-05 12:22] LABS: Color, Urine Yellow (Yellow); Glucose, Dipstick Normal (Normal); Ketone-Dipstick Negative (Negative); Leukocyte Esterase-Dipstick 500 /ul (Negative); Nitrite-Dipstick Positive (Negative); Occult Blood-Urine 250 /ul (Negative); Protein-Dipstick 100 mg/dl (Negative); Urine Bilirubin Dipstick Negative (Negative); Urine Clarity Sl. Cloudy (Clear); Urine Urobilinogen Normal (Normal)
[2022-11-05 12:47] LABS: Microalbumin:Creatinine Ratio 440.3 mg/g CRE (<30 mg/g CRE)
[2022-11-05 12:52] LABS: ALB/GLOB Ratio 0.6 RATIO (0.9-2.4); AST(SGOT) 13 U/L (15-37); Alanine Aminotransfer ALT/SGPT 17 U/L (16-61); Albumin, Serum 2.8 g/dL (3.2-5.0); Alkaline Phosphatase 108 U/L (45-117); Anion Gap 7 (5-15); BUN 30 mg/dL (7-18); BUN/Creat Ratio 16.8 RATIO (10-20); Calcium,Total 8.6 mg/dL (8.5-10.1); Chloride 107 mmol/L (98-107); Cholesterol 90 mg/dL (200); Creatinine, Serum 1.79 mg/dL (0.70-1.30); EST Glomerular Filtration Rate 39 mL/min (>60); Est Glom Filt Rate - Afr Amer 47 mL/min (>60); Globulin 4.5 g/dL (2.2-4.2); Glucose 193 mg/dL (74-106); High Density Lipoprotein 32 mg/dL; Potassium 3.9 mmol/L (3.5-5.1); Protein, Total 7.3 g/dL (6.4-8.2); Sodium Level 139 mmol/L (136-145); Triglycerides 53 mg/dL; Very Low Density Lipoprotein 11 mg/dL (5-40)
[2022-11-05 14:03] LABS: Hemoglobin A1c 9.1 % (3.8-5.6)
== END | disposition home or self-care (01) ==
PROVIDERS: PCP Family Medicine; Referring Provider Family Medicine; Visit Provider Family Medicine
DX: E11.29 Type 2 diabetes mellitus with other diabetic kidney complication (principal); R32 Unspecified urinary incontinence; I10 Essential (primary) hypertension
CPT/HCPCS: 36415; 80053; 80061; 81002; 82043; 82570; 83036

== ENCOUNTER → 2023-04-23 | Outpatient (CLI) | payer MEDICARE, SELFPAY ==
[2023-04-23 17:38] LABS: Absolute Lymphocyte Count 1.45 X10^3/uL (0.83-4.51); Absolute Neutrophil Count 6.6 X10^3/uL (2.0-7.7); Basophil# 0.05 X10^3/uL; Basophil% 0.5 % (0-1); Eosinophil# 0.21 X10^3/uL; Eosinophils% 2.3 % (0-5); Hemoglobin 14.3 g/dL (13.0-16.5); Lymphocyte # 1.45 X10^3/ul (0.83-4.51); Lymphocyte % 15.9 % (19-41); Mean Corp Hgb Conc 31.1 g/dL (32-36); Mean Corpuscular Hgb 28.6 pg (27.0-32.0); Mean Platelet Vol. 10.4 fl (6.2-12.0); Monocyte# 0.73 X10^3/uL; NRBC Flagged by Analyzer 0 % (0-5); Neutrophil # 6.62 X10^3/uL (2.7-7.7); Neutrophil % 72.6 % (47-70); Platelet Count 238 K/mm3 (150-450); RBC Distribution Width CV 13.2 % (11.6-14.6); RBC Distribution Width SD 43.8 fl (35.1-43.9); White Blood Count 9.1 K/mm3 (4.4-11.0)
[2023-04-23 17:46] LABS: Anion Gap 6 (5-15); BUN 33 mg/dL (7-18); BUN/Creat Ratio 16.1 RATIO (10-20); Calcium,Total 8.7 mg/dL (8.5-10.1); Chloride 105 mmol/L (98-107); Creatinine, Serum 2.05 mg/dL (0.70-1.30); EST Glomerular Filtration Rate 33 mL/min (>60); Est Glom Filt Rate - Afr Amer 40 mL/min (>60); Glucose 300 mg/dL (74-106); Potassium 4.4 mmol/L (3.5-5.1); Sodium Level 138 mmol/L (136-145)
== END | disposition home or self-care (01) ==
LOC: BFHLAB 15:53
PROVIDERS: PCP Family Medicine; Referring Provider Family Medicine; Visit Provider Family Medicine
DX: N18.32 Chronic kidney disease, stage 3b (principal)
CPT/HCPCS: 36415; 80048; 85025

== ENCOUNTER 2024-04-03 14:20 | Observation (INO) | payer MEDICARE, SELFPAY ==
[2024-04-03] VITALS (11 sets, daily range): BP systolic 105–153; BP diastolic 57–92; PULSE 7–84; RESP 15–19; TEMP 36.3–36.9; O2SAT 94–100; BMI 43.9; BMI 44.4
--- NOTE | 2024-04-03 14:46 | NURSING ---
STROKE ALERT [id number]
--- NOTE | 2024-04-03 14:48 | EKG12_ITS ---
Test Reason : STROKE ALERT Blood Pressure : / mmHG Vent. Rate : 070 BPM Atrial Rate : 070 BPM P-R Int : 322 ms QRS Dur : 156 ms QT Int : 442 ms P-R-T Axes : 023 -73 014 degrees QTc Int : 477 ms Sinus rhythm with 1st degree A-V block Left axis deviation Right bundle branch block Possible Lateral infarct (cited on or before 30-JUL-2019) Inferior infarct (cited on or before 11-JUL-2019) Abnormal ECG Confirmed by Burton Judd ([id number]), supervising editor news reel RADHA TERRY ([id number]) on 04/05/2024 7:51:36 AM Referred By: Confirmed By:Burton Judd
--- NOTE | 2024-04-03 14:48 | CT_ITS ---
We are attempting to reach an attending provider to discuss findings. An addendum with communication details will be sent when the communication is complete. STUDY: CT BRAIN WITHOUT CONTRAST REASON FOR EXAM: Male, 83 years old. Neuro deficit, acute, stroke suspected Individualized dose optimization techniques were used for this CT. TECHNIQUE: Transaxial CT imaging of the brain was performed without administration of intravenous contrast material. COMPARISON: None FINDINGS: There are calcifications around the carotid artery. These are noted in the cavernous carotid arteries. Normal calvarium. Normal soft tissues. Prominent extra-axial spaces. There is mild cerebral atrophy with widening of the extra-axial spaces and ventricular dilatation. There are areas of decreased attenuation within the white matter tracts of the supratentorial brain, consistent with microvascular disease changes. Normal basal ganglia and thalami. Normal brainstem. There is mild cerebellar atrophy. There is no intracranial hemorrhage. There are no findings of an acute ischemic infarction. Normal visualized paranasal sinuses. ASPECTS Score for Acute Strokes: 03/31 CT/STROKE Brain/Head without Cont IMPRESSION: There are no acute findings. Chronic involutional changes of the brain. Electronically Signed: Gorge Finn MD at 15:08 EDT ,
--- NOTE | 2024-04-03 14:50 | CT_ITS ---
We are attempting to reach an attending provider to discuss findings. An addendum with communication details will be sent when the communication is complete. EXAM: CT ANGIOGRAPHY HEAD AND NECK WITH INTRAVENOUS CONTRAST CLINICAL INDICATION: Neuro deficit, acute, stroke suspected TECHNIQUE: [place] [facility] [place]/head and neck CT angiography protocol performed with intravenous contrast. This CT exam was performed using one or more of the following dose reduction techniques: automated exposure control, adjustment of the mA and/or kV according to patient size, and/or use of iterative reconstruction technique. MIP reconstructed images were created and reviewed. CONTRAST: IV 100mL Isovue-370 RADIATION DOSE: CTDIvol = 36.18 mGy, DLP = 1241.59 mGy-cm COMPARISON: CT head done earlier FINDINGS: HEAD: RIGHT ANTERIOR CEREBRAL ARTERY: Unremarkable. No occlusion or significant stenosis. Anterior communicating artery is present. No aneurysm. RIGHT MIDDLE CEREBRAL ARTERY: Unremarkable. No occlusion or significant stenosis. No aneurysm. RIGHT POSTERIOR CEREBRAL ARTERY: Unremarkable. No occlusion or significant stenosis. No aneurysm. RIGHT INTRACRANIAL INTERNAL CAROTID ARTERY: Unremarkable. No significant stenosis. No dissection or occlusion. RIGHT INTRACRANIAL VERTEBRAL ARTERY: Unremarkable. No significant stenosis. No dissection or occlusion. LEFT ANTERIOR CEREBRAL ARTERY: Unremarkable. No occlusion or significant stenosis. No aneurysm. LEFT MIDDLE CEREBRAL ARTERY: Unremarkable. No occlusion or significant stenosis. No aneurysm. LEFT POSTERIOR CEREBRAL ARTERY: Unremarkable. No occlusion or significant stenosis. No aneurysm. LEFT INTRACRANIAL INTERNAL CAROTID ARTERY: Unremarkable. No significant stenosis. No dissection or occlusion. LEFT INTRACRANIAL VERTEBRAL ARTERY: Unremarkable. No significant stenosis. No dissection or occlusion. BASILAR ARTERY: Unremarkable. No occlusion or significant stenosis. No aneurysm. OTHER VASCULATURE: There is calcified plaque formation of the right cavernous carotid artery, with a mild stenosis (less than 50%). ALL ABOVE CRITERIA BY NASCET. There is calcified plaque formation of the left cavernous carotid artery, with a mild stenosis (less than 50%). ALL ABOVE CRITERIA BY NASCET. No vascular malformation. NECK: RIGHT COMMON CAROTID ARTERY: Unremarkable. No significant stenosis. No dissection or occlusion. RIGHT EXTRACRANIAL INTERNAL CAROTID ARTERY: There is mild atherosclerotic plaque formation of the origin of the right internal carotid artery with less than 50% cross sectional diameter stenosis. ALL ABOVE CRITERIA BY NASCET. No dissection or occlusion. RIGHT EXTERNAL CAROTID ARTERY: Unremarkable. No occlusion. RIGHT EXTRACRANIAL VERTEBRAL ARTERY: Unremarkable. No significant stenosis. No dissection or occlusion. LEFT COMMON CAROTID ARTERY: Unremarkable. No significant stenosis. No dissection or occlusion. LEFT EXTRACRANIAL INTERNAL CAROTID ARTERY: There is mild atherosclerotic plaque formation of the origin of the left internal carotid artery with less than 50% cross sectional diameter stenosis. ALL ABOVE CRITERIA BY NASCET. No dissection or occlusion. LEFT EXTERNAL CAROTID ARTERY: Unremarkable. No occlusion. LEFT EXTRACRANIAL VERTEBRAL ARTERY: Unremarkable. No significant stenosis. No dissection or occlusion. THYROID: The thyroid is heterogenous. It contains nodules. This should be further evaluated with ultrasound. This can be performed as an outpatient. BRACHIOCEPHALIC AND SUBCLAVIAN ARTERIES: Unremarkable as visualized. No occlusion or significant stenosis. LUNG APICES: Unremarkable as visualized. HEAD and NECK: BONES/JOINTS: There are degenerative findings of the cervical spine. No discrete lytic or blastic abnormalities. SOFT TISSUES: Unremarkable. OTHER FINDINGS: Post-processing of the images was performed, with axial imaging and 3D reconstruction. MIPS images were obtained. CAROTID STENOSIS REFERENCE USING NASCET CRITERIA: % ICA stenosis = (1 - narrowest ICA diameter/diameter of distal cervical ICA) x 100. Mild - <50% stenosis. Moderate - 50-69% stenosis. Severe - 70-94% stenosis. Near occlusion - 95-99% stenosis. Occluded - 100% stenosis. CT/STROKE CTA Head AND Neck W/Con IMPRESSION: 1. There is mild atherosclerotic plaque formation of the origin of the right internal carotid artery with less than 50% cross sectional diameter stenosis. ALL ABOVE CRITERIA BY NASCET. 2. There is mild atherosclerotic plaque formation of the origin of the left internal carotid artery with less than 50% cross sectional diameter stenosis. ALL ABOVE CRITERIA BY NASCET. 3. There is calcified plaque formation of the right cavernous carotid artery, with a mild stenosis (less than 50%). ALL ABOVE CRITERIA BY NASCET. 4. There is calcified plaque formation of the left cavernous carotid artery, with a mild stenosis (less than 50%). ALL ABOVE CRITERIA BY NASCET. Electronically Signed: Gorge Finn MD at 15:10 EDT ,
--- NOTE | 2024-04-03 14:54 | EX.ED.DYSGE1 ---
HPI History of Present Illness Chief Complaint: Dizziness Narrative Narrative: Chief complaint and HPI: Dysarthria and aphasia. 83-year-old male with history of CVA, proximal atrial fibrillation on Eliquis, DM2, HLD, HTN who presents for evaluation of dysarthria and aphasia. History taken by close contacts in the room as well as patient. Per report, patient's last known normal was 1:30 PM. They were eating a late breakfast when they noticed that the patient had difficulty saying words as well as slurring his speech. They were concerned that maybe his glucose was low. they state that the patient tried to prick his finger and seemed very unsteady with his hands. Sugar at home was in the 200s and patient gave himself 22 units of insulin. Patient endorses mild slurring of his speech. He states his dysarthria and aphasia are improving. He does endorse previous difficulty finding his words. He endorses headache and neck pain. Denies any frequent falls. Has not missed any doses of his Eliquis. Denies any fever, chills, shortness of breath, chest pain, abdominal pain, nausea, vomiting, dysuria, weakness, numbness or tingling. Review of systems: See HPI Medications: As listed on the chart Allergies: As listed on the chart PFSH: Per chart Vital signs: As listed on the chart. Reviewed. Physical exam: Gen: A&O x3, NAD Head: Normocephalic, atraumatic Eyes: No sclera icterus, conjunctiva clear, PERRL, EOMI ENT: Moist mucous membranes, No facial asymmetry Neck: Trachea midline, No JVD CV: RRR, no murmurs, no peripheral edema Resp: Lungs CTA BL, no w/r/c GI: Abd soft, non-distended, non-tender, no r/r/g Musc: Full ROM, no deformity, strength +5/5 in all extremities, no pronator drift, no ataxia Skin: Warm, dry, intact Neuro: Alert, oriented, grossly intact, sensation intact, mild dysarthria, no aphasia, NIH 1 Psych: Cooperative, appropriate mood and affect [facility] Medical History (Updated 04/03/24 @ 17:[address] Veronica Gonzalez MD) History of CVA (cerebrovascular accident) (03/2020) Right bundle branch block (RBBB) with left anterior fascicular block Atherosclerosis of coronary artery without angina pectoris Fracture of humeral head, left, closed Stage 3b chronic kidney disease GERD (gastroesophageal reflux disease) Neuropathic pain BPH (benign prostatic hyperplasia) Depression Stroke Debility Duodenal ulcer History of pulmonary embolism (07/30/19) Essential (primary) hypertension Hypotension MARLON (acute kidney injury) Acute blood loss anemia Super obesity Noncompliance Family history of colon cancer Colon polyps Chronic renal failure, stage 3 (moderate) NILO (obstructive sleep apnea) HLD (hyperlipidemia) History of other venous thrombosis and embolism History of depression Type II diabetes mellitus, uncontrolled COPD (chronic obstructive pulmonary disease) Home Medications ?Medication ?Instructions ?Recorded ?Last Taken ?Type tamsulosin 0.4 mg capsule 0.8 mg PO DAILY prostate 07/08/16 04/02/24 History gabapentin 300 mg capsule 300 - 600 mg PO TID PRN PRN nerve 03/11/18 07/29/19 21:00 History pain isosorbide mononitrate 30 mg 30 mg PO DAILY heart 03/12/18 04/03/24 History tablet,extended release 24 hr atorvastatin 40 mg tablet 40 mg PO DAILY cholesterol 04/02/20 04/02/24 History losartan 50 mg tablet 100 mg PO DAILY bp 04/02/20 04/03/24 History fluticasone propionate 50 50 mcg NASAL DAILY Sinus 04/11/20 04/01/24 History mcg/actuation nasal spray,suspension nitroglycerin 0.4 mg sublingual 0.4 mg SL Q5M PRN Chest Pain 04/11/20 Unknown History tablet acetaminophen 325 mg tablet 650 mg (2 x 325 mg) PO Q6H PRN PRN 12/07/20 Unknown Rx (Tylenol) Pain Score 1-10/Temp > 100.7 F #0 tabs albuterol sulfate 2.5 mg/3 mL 2.5 mg (3 mL) inhalation Q4H PRN 12/07/20 Unknown Rx (0.083 %) solution for nebulization PRN Shortness of breath, wheezing #0 mL albuterol sulfate 90 mcg/actuation 2 puff inhalation Q6H PRN PRN SOB 12/07/20 04/02/24 Rx aerosol inhaler or Wheezing #0 grams apixaban 2.5 mg tablet (Eliquis) 2.5 mg PO BID #60 tabs 12/07/20 04/03/24 Rx ferrous sulfate 325 mg (65 mg 325 mg PO DAILY supplement #0 tabs 12/07/20 Unknown Rx iron) tablet escitalopram oxalate 20 mg tablet 20 mg PO DAILY 04/03/24 Unknown History insulin glargine 100 unit/mL (3 45 unit subcut QHS dm 04/03/24 04/02/24 History mL) subcutaneous pen insulin lispro 100 unit/mL 1 sliding scale dose subcut TID 04/03/24 04/03/24 History subcutaneous solution (Humalog U-100 Insulin) Allergy/AdvReac Type Severity Reaction Status Date / Time MARGIE Inhibitors Allergy Unknown edema Verified 04/03/24 14:23 cefepime Allergy weakness Verified 04/03/24 14:23 and falling ipodate (Ipodate) Allergy Shortness Verified 04/03/24 14:23 of breath levofloxacin (Levofloxacin) Allergy Anaphylaxis Verified 04/03/24 14:23 lisinopril Allergy Shortness Verified 04/03/24 14:23 of breath ofloxacin Allergy Other Verified 04/03/24 14:23 Quinolones Allergy Anaphylaxis Verified 04/03/24 14:23 Family History Father Colon cancer Mother Cancer Sister CAD (coronary artery disease) Surgical History (Updated 02/13/22 @ 09:27 by Harmony Lara) History of left heart catheterization (07/11/19) History of loop recorder (03/2018) History of esophagogastroduodenoscopy (EGD) Social History Smoking Status: Light Smoker (<10/day) how long ago did patient quit smoking: cigars, smoked 2 a day, quit in 2007 EXAM Physical Exam Const Vital Signs: 04/03/24 14:21 04/03/24 14:33 04/03/24 14:53 Temperature 97.4 F L 97.4 F L Temperature Source Temporal Temporal Pulse Rate 71 7 L Respiratory Rate 16 16 Blood Pressure 137/63 H 137/63 H Blood Pressure Mean 87 87 Pulse Ox 98 96 Oxygen Delivery Method Room Air Room Air Room Air 04/03/24 15:18 04/03/24 15:23 04/03/24 15:30 Temperature 97.8 F Temperature Source Temporal Pulse Rate 71 67 58 L Respiratory Rate 16 15 18 Blood Pressure 127/92 H 153/80 H 153/80 H Blood Pressure Mean 103 104 104 Pulse Ox 95 94 95 Oxygen Delivery Method Room Air 04/03/24 16:40 Temperature 98.4 F Temperature Source Pulse Rate 59 L Respiratory Rate 19 H Blood Pressure 113/57 L Blood Pressure Mean 75 Pulse Ox 100 Oxygen Delivery Method MDM MDM MDM Narrative Medical decision making narrative: 83-year-old male with history of CVA presents for evaluation of dysarthria and aphasia. Last known normal was 1:30 PM. Patient is not a tPA candidate given that he is on Eliquis however cannot rule out hemorrhagic stroke. Patient was made a stroke alert. Stroke workup ordered. NIH 1 and symptoms are improving from original onset. CT head without acute intracranial abnormality. CTA head and neck without LVO. Teleneurology with [facility] agrees with admission for MRI brain and further workup. Recommend 80 mg atorvastatin be ordered along with aspirin. This was given. Patient's dysarthria has resolved. CBC without leukocytosis. Patient at baseline anemia. BMP shows baseline renal insufficiency and hyperglycemia. Troponin unremarkable. BNP was ordered due to patient's bilateral pulmonary effusions. Patient states he has no history of CHF. BNP unable to be performed secondary to the machine being broken. UA pending at this time. Patient will warrant admission to the hospital. He confirmed understanding. Patient was discussed with Dr. Gonzalez, she accepted. EKG: Interpreted by me/EM physician: EKG shows normal sinus rhythm with first-degree block. Right bundle branch block. Nonspecific ST changes. Heart rate 70. Diagnostic: Interpreted by me/EM physician: Chest x-ray with bilateral infiltrates and effusions. 30 minutes of critical care time utilized in managing the patient. This is due to high probability of and deterioration of the patient based on the patient's condition and excludes any separately billable procedures. Impression: 1. Dysarthria, aphasia, ataxia resolved. Concern for CVA versus TIA. 2. Chronic anemia 3. CKD 4. Hyperglycemia with known diabetes 5. Bilateral pulmonary effusions Lab Data Labs: Laboratory Results - last 24 hr 04/03/24 04/03/24 14:33 14:41 WBC 7.4 RBC 4.12 L Hgb 11.9 L Hct 37.7 L MCV 91.5 MCH 28.9 MCHC 31.6 L RDW Std Deviation 45.3 H RDW Coeff of Hilary 13.5 Plt Count 228 MPV 9.8 Immature Gran % (Auto) 0.400 Neut % (Auto) 73.0 H Lymph % (Auto) 16.5 L Luna % (Auto) 7.1 Eos % (Auto) 2.3 Baso % (Auto) 0.7 Absolute Neuts (auto) 5.4 Absolute Lymphs (auto) 1.21 Nucleated RBC % 0 PT 17.3 H INR 1.4 APTT 37.1 H Sodium 138 Potassium 4.2 Chloride 108 H Carbon Dioxide 23.0 Anion Gap 7 BUN 31 H Creatinine 2.56 H Estim Creat Clear Calc 32.58 Est GFR (MDRD) Af Amer 31 L Est GFR (MDRD) Non-Af 26 L BUN/Creatinine Ratio 12.1 Glucose 223 H Calcium 8.5 Troponin I High Sens 8 POC Glucose 211 H Radiography Diagnostic Testing: Clinical Impression(s) from Imaging Studies Brain CT 04/03/24 14:48 IMPRESSION: There are no acute findings. Chronic involutional changes of the brain. Electronically Signed: Gorge Finn MD at 15:08 EDT , ADDENDUM: 04/03/24 1525 IMPRESSION: There are no acute findings. Chronic involutional changes of the brain. N.B. : The above Results were Read Back by Gorge Finn MD to Marko Dubois DO, and understanding confirmed on 04/03/2024 15:18:41 (ET). Electronically Signed: Gorge Finn MD at 15:08 EDT , Head/Neck CTA 04/03/24 14:50 IMPRESSION: 1. There is mild atherosclerotic plaque formation of the origin of the right internal carotid artery with less than 50% cross sectional diameter stenosis. ALL ABOVE CRITERIA BY NASCET. 2. There is mild atherosclerotic plaque formation of the origin of the left internal carotid artery with less than 50% cross sectional diameter stenosis. ALL ABOVE CRITERIA BY NASCET. 3. There is calcified plaque formation of the right cavernous carotid artery, with a mild stenosis (less than 50%). ALL ABOVE CRITERIA BY NASCET. 4. There is calcified plaque formation of the left cavernous carotid artery, with a mild stenosis (less than 50%). ALL ABOVE CRITERIA BY NASCET. Electronically Signed: Gorge Finn MD at 15:10 EDT , ADDENDUM: 04/03/24 1522 IMPRESSION: 1. There is mild atherosclerotic plaque formation of the origin of the right internal carotid artery with less than 50% cross sectional diameter stenosis. ALL ABOVE CRITERIA BY NASCET. 2. There is mild atherosclerotic plaque formation of the origin of the left internal carotid artery with less than 50% cross sectional diameter stenosis. ALL ABOVE CRITERIA BY NASCET. 3. There is calcified plaque formation of the right cavernous carotid artery, with a mild stenosis (less than 50%). ALL ABOVE CRITERIA BY NASCET. 4. There is calcified plaque formation of the left cavernous carotid artery, with a mild stenosis (less than 50%). ALL ABOVE CRITERIA BY NASCET. N.B. : The above Results were Read Back by Gorge Finn MD to Marko Dubois DO, and understanding confirmed on 04/03/2024 15:15:15 (ET). Electronically Signed: Gorge Finn MD at 15:10 EDT , Chest X-Ray 04/03/24 15:25 IMPRESSION: There are bilateral pleural effusions. There are bilateral infiltrates. Electronically Signed: Gorge Finn MD at 15:51 EDT , Discharge Plan Disposition Disposition: Acute Care Hospital [facility] Discharge Date/Time: 04/03/24 18:34
[2024-04-03 14:59] LABS: Absolute Lymphocyte Count 1.21 X10^3/uL (0.83-4.51); Absolute Neutrophil Count 5.4 X10^3/uL (2.0-7.7); Basophil# 0.05 X10^3/uL; Basophil% 0.7 % (0-1); Eosinophil# 0.17 X10^3/uL; Eosinophils% 2.3 % (0-5); Hematocrit 37.7 % (40-54); Hemoglobin 11.9 g/dL (13.0-16.5); Lymphocyte # 1.21 X10^3/ul (0.83-4.51); Lymphocyte % 16.5 % (19-41); Mean Corp Hgb Conc 31.6 g/dL (32-36); Mean Corpuscular Hgb 28.9 pg (27.0-32.0); Mean Corpuscular Volume 91.5 fL (80-94); Mean Platelet Vol. 9.8 fl (6.2-12.0); Monocyte# 0.52 X10^3/uL; Monocyte% 7.1 % (0-10); NRBC Flagged by Analyzer 0 % (0-5); Neutrophil # 5.37 X10^3/uL (2.7-7.7); Platelet Count 228 K/mm3 (150-450); RBC Distribution Width CV 13.5 % (11.6-14.6); RBC Distribution Width SD 45.3 fl (35.1-43.9); Red Blood Count 4.12 M/mm3 (4.6-6.2); White Blood Count 7.4 K/mm3 (4.4-11.0)
[2024-04-03 15:05] LABS: Bedside Glucose 211 mg/dL (74-106)
[2024-04-03 15:07] LABS: International Normalized Ratio 1.4; Prothrombin Time (Protime)PT. 17.3 SECONDS (11.7-14.9)
[2024-04-03 15:08] LABS: Partial Thromboplast Time 37.1 Seconds (24.1-36.2)
[2024-04-03] MEDS: 0.9% Normal Saline (1000mL) 1,000 ML 999 ML IV (15:16)
[2024-04-03] MEDS: MethylPREDNISolone 125 MG/2 ML Vial IV (15:17)
--- NOTE | 2024-04-03 15:25 | RAD_ITS ---
STUDY: XR Chest 1 View 04/03/2024 3:25 PM REASON FOR EXAM: Male, 83 years old. Neuro deficit, acute, stroke suspected COMPARISON: 6 TECHNIQUE: XR Chest 1 View FINDINGS: There are bilateral pleural effusions. There are bilateral infiltrates. Loop recorder noted. Enlarged heart size. Normal mediastinum. Normal denys. Prominent appearing increased interstitial lung markings. Normal visualized pulmonary arteries. There is atherosclerotic calcification of the aortic arch with tortuosity. There are diffuse degenerative changes of the visualized thoracic spine. There is degenerative osteoarthritis of the bilateral shoulders. There are no acute findings of the upper abdomen. RAD/Chest 1 View IMPRESSION: There are bilateral pleural effusions. There are bilateral infiltrates. Electronically Signed: Gorge Finn MD at 15:51 EDT ,
[2024-04-03 15:26] LABS: Anion Gap 7 (5-15); BUN 31 mg/dL (7-18); BUN/Creat Ratio 12.1 RATIO (10-20); Calcium,Total 8.5 mg/dL (8.5-10.1); Chloride 108 mmol/L (98-107); Creatinine, Serum 2.56 mg/dL (0.70-1.30); EST Glomerular Filtration Rate 26 mL/min (>60); Est Glom Filt Rate - Afr Amer 31 mL/min (>60); Estimated Creatinine Clearance 32.58 ml/min; Glucose 223 mg/dL (74-106); Potassium 4.2 mmol/L (3.5-5.1); Sodium Level 138 mmol/L (136-145); Troponin-I HS 8 pg/mL (3.0-78.0)
[2024-04-03] MEDS: Aspirin 325 MG Tablet PO (16:07)
[2024-04-03] MEDS: Atorvastatin Calcium 80 MG Tablet PO (16:07)
--- NOTE | 2024-04-03 16:56 | PCM.HP.STD ---
HPI - General General Date of Service: 04/03/24 Chief Complaint: Dysarthria HPI Narrative WADE HERNANDEZ, is a 83 M with history of CVA, obesity, A-fib and PE, diabetes, HTN who presented to [facility] ED 04/03/2024 for dysarthria, dysphagia, ataxia that started at 1:30 PM. Patient was a stroke call, imaging and ED negative and neuro recommended admission for further workup for CVA. Hospitalist contacted for admission. Patient evaluated family member at bedside, around 130 suddenly developed dysarthria, ataxia with difficulty with coordination and required assistance walking, patient now almost back to baseline but with some slight dysarthria still present. He does report that he has had shortness of breath over the past year or so and a cough with light mendez sputum for the past month or so but none of this is changed over the past couple of days. In the ED he had some possible vascular congestion on x-ray and BNP was ordered but is pending. Patient denies chest pain, no headache or changes in vision, no numbness or weakness. Does get some tingling in bilateral hands off and on but was not specifically associated with the event today. Denies urinary or bowel complaints. Does get a little bit of abdominal discomfort but it is generalized and cannot describe this further, no nausea or vomiting. Reports he occasionally smokes a pipe but no other tobacco use, no alcohol or substance use. [facility] Medical History (Updated 04/03/24 @ 17:[address] Veronica Gonzalez MD) Acute blood loss anemia MARLON (acute kidney injury) Atherosclerosis of coronary artery without angina pectoris BPH (benign prostatic hyperplasia) Chronic renal failure, stage 3 (moderate) Colon polyps COPD (chronic obstructive pulmonary disease) Debility Depression Duodenal ulcer Essential (primary) hypertension Family history of colon cancer Fracture of humeral head, left, closed GERD (gastroesophageal reflux disease) History of CVA (cerebrovascular accident) (03/2020) History of depression History of other venous thrombosis and embolism History of pulmonary embolism (07/30/19) HLD (hyperlipidemia) Hypotension Neuropathic pain Noncompliance NILO (obstructive sleep apnea) 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 chronic kidney disease Stroke Super obesity Type II diabetes mellitus, uncontrolled Home Medications ?Medication ?Instructions ?Recorded ?Last Taken ?Type tamsulosin 0.4 mg capsule 0.8 mg PO DAILY prostate 07/08/16 04/02/24 History gabapentin 300 mg capsule 300 - 600 mg PO TID PRN PRN nerve 03/11/18 07/29/19 21:00 History pain isosorbide mononitrate 30 mg 30 mg PO DAILY heart 03/12/18 04/03/24 History tablet,extended release 24 hr atorvastatin 40 mg tablet 40 mg PO DAILY cholesterol 04/02/20 04/02/24 History losartan 50 mg tablet 100 mg PO DAILY bp 04/02/20 04/03/24 History fluticasone propionate 50 50 mcg NASAL DAILY Sinus 04/11/20 04/01/24 History mcg/actuation nasal spray,suspension nitroglycerin 0.4 mg sublingual 0.4 mg SL Q5M PRN Chest Pain 04/11/20 Unknown History tablet acetaminophen 325 mg tablet 650 mg (2 x 325 mg) PO Q6H PRN PRN 12/07/20 Unknown Rx (Tylenol) Pain Score 1-10/Temp > 100.7 F #0 tabs albuterol sulfate 2.5 mg/3 mL 2.5 mg (3 mL) inhalation Q4H PRN 12/07/20 Unknown Rx (0.083 %) solution for nebulization PRN Shortness of breath, wheezing #0 mL albuterol sulfate 90 mcg/actuation 2 puff inhalation Q6H PRN PRN SOB 12/07/20 04/02/24 Rx aerosol inhaler or Wheezing #0 grams apixaban 2.5 mg tablet (Eliquis) 2.5 mg PO BID #60 tabs 12/07/20 04/03/24 Rx ferrous sulfate 325 mg (65 mg 325 mg PO DAILY supplement #0 tabs 12/07/20 Unknown Rx iron) tablet escitalopram oxalate 20 mg tablet 20 mg PO DAILY 04/03/24 Unknown History insulin glargine 100 unit/mL (3 45 unit subcut QHS dm 04/03/24 04/02/24 History mL) subcutaneous pen insulin lispro 100 unit/mL 1 sliding scale dose subcut TID 04/03/24 04/03/24 History subcutaneous solution (Humalog U-100 Insulin) Allergy/AdvReac Type Severity Reaction Status Date / Time MARGIE Inhibitors Allergy Unknown edema Verified 04/03/24 14:23 cefepime Allergy weakness Verified 04/03/24 14:23 and falling ipodate (Ipodate) Allergy Shortness Verified 04/03/24 14:23 of breath levofloxacin (Levofloxacin) Allergy Anaphylaxis Verified 04/03/24 14:23 lisinopril Allergy Shortness Verified 04/03/24 14:23 of breath ofloxacin Allergy Other Verified 04/03/24 14:23 Quinolones Allergy Anaphylaxis Verified 04/03/24 14:23 Family History Father Colon cancer Mother Cancer Sister CAD (coronary artery disease) Surgical History (Updated 02/13/22 @ 09:27 by Harmony Lara) History of esophagogastroduodenoscopy (EGD) History of left heart catheterization (07/11/19) History of loop recorder (03/2018) Social History Smoking Status: Light Smoker (<10/day) how long ago did patient quit smoking: cigars, smoked 2 a day, quit in 2007 ROS ROS Narrative General: Denies fever/chills HENT: Denies headache, denies stuffy nose, denies sore throat EYES: Denies changes in vision Resp: Has had some cough for a month and shortness of breath for a year Cardiac: Denies chest pain GI: Sometimes gets some generalized abdominal pain, denies changes in bowel, denies nausea/vomiting : Denies changes in urination Extremity: Denies swelling MSK: Denies weakness Neuro: Gets some tingling in his hands bilaterally off and on, not associated with this present event Heme: Denies any bleeding Skin: Denies rashes Psychiatric: No complaints voiced Vital Signs Vital Signs Vital Signs: 04/03/24 14:21 04/03/24 14:33 04/03/24 14:53 Temperature 97.4 F L 97.4 F L Temperature Source Temporal Temporal Pulse Rate 71 7 L Respiratory Rate 16 16 Blood Pressure 137/63 H 137/63 H Blood Pressure Mean 87 87 Pulse Ox 98 96 Oxygen Delivery Method Room Air Room Air Room Air 04/03/24 15:18 04/03/24 15:23 04/03/24 15:30 Temperature 97.8 F Temperature Source Temporal Pulse Rate 71 67 58 L Respiratory Rate 16 15 18 Blood Pressure 127/92 H 153/80 H 153/80 H Blood Pressure Mean 103 104 104 Pulse Ox 95 94 95 Oxygen Delivery Method Room Air 04/03/24 16:40 Temperature 98.4 F Temperature Source Pulse Rate 59 L Respiratory Rate 19 H Blood Pressure 113/57 L Blood Pressure Mean 75 Pulse Ox 100 Oxygen Delivery Method Weight Weight: 147 kg Body Mass Index (BMI) 43.9 Physical Exam Narrative General: Alert, oriented, no apparent distress HEENT: Atraumatic, normocephalic Eyes: Anicteric, normal conjunctiva, extraocular movements intact, pupils equal Neck: Supple Respiratory: Diminished at the bases, no significant increased respiratory effort Cardiovascular: Regular rate and rhythm GI: Soft, nontender, nondistended Extremities: Trace lower extremity edema Musculoskeletal: Strength 5 out of 5 in right upper extremity, 5 out of 5 left upper extremity, 5 out of 5 right lower extremity, 5 out of 5 left lower extremity Neuro: Does have some marginal dysarthria, cranial nerves II through XII intact, [id number] without significant difficulty bilaterally Skin: No rashes appreciated Psych: Cooperative Results Lab / Micro Data 04/03/24 14:33 04/03/24 14:33 Labs: Laboratory Results - last 24 hr 04/03/24 14:33: WBC 7.4, RBC 4.12 L, Hgb 11.9 L, Hct 37.7 L, MCV 91.5, MCH 28.9, MCHC 31.6 L, RDW Std Deviation 45.3 H, RDW Coeff of Hilary 13.5, Plt Count 228, MPV 9.8, Immature Gran % (Auto) 0.400, Neut % (Auto) 73.0 H, Lymph % (Auto) 16.5 L, O'Brien % (Auto) 7.1, Eos % (Auto) 2.3, Baso % (Auto) 0.7, Absolute Neuts (auto) 5.4, Absolute Lymphs (auto) 1.21, Nucleated RBC % 0, PT 17.3 H, INR 1.4, APTT 37.1 H, Sodium 138, Potassium 4.2, Chloride 108 H, Carbon Dioxide 23.0, Anion Gap 7, BUN 31 H, Creatinine 2.56 H, Estim Creat Clear Calc 32.58, Est GFR (MDRD) Af Amer 31 L, Est GFR (MDRD) Non-Af 26 L, BUN/Creatinine Ratio 12.1, Glucose 223 H, Calcium 8.5, Troponin I High Sens 8 04/03/24 14:41: POC Glucose 211 H Imaging Radiology Impression Brain CT 04/03/24 14:48 IMPRESSION: There are no acute findings. Chronic involutional changes of the brain. Electronically Signed: Gorge Finn MD at 15:08 EDT , ADDENDUM: 04/03/24 1525 IMPRESSION: There are no acute findings. Chronic involutional changes of the brain. N.B. : The above Results were Read Back by Gorge Finn MD to Marko Dubois DO, and understanding confirmed on 04/03/2024 15:18:41 (ET). Electronically Signed: Gorge Finn MD at 15:08 EDT , Head/Neck CTA 04/03/24 14:50 IMPRESSION: 1. There is mild atherosclerotic plaque formation of the origin of the right internal carotid artery with less than 50% cross sectional diameter stenosis. ALL ABOVE CRITERIA BY NASCET. 2. There is mild atherosclerotic plaque formation of the origin of the left internal carotid artery with less than 50% cross sectional diameter stenosis. ALL ABOVE CRITERIA BY NASCET. 3. There is calcified plaque formation of the right cavernous carotid artery, with a mild stenosis (less than 50%). ALL ABOVE CRITERIA BY NASCET. 4. There is calcified plaque formation of the left cavernous carotid artery, with a mild stenosis (less than 50%). ALL ABOVE CRITERIA BY NASCET. Electronically Signed: Gorge Finn MD at 15:10 EDT , ADDENDUM: 04/03/24 1522 IMPRESSION: 1. There is mild atherosclerotic plaque formation of the origin of the right internal carotid artery with less than 50% cross sectional diameter stenosis. ALL ABOVE CRITERIA BY NASCET. 2. There is mild atherosclerotic plaque formation of the origin of the left internal carotid artery with less than 50% cross sectional diameter stenosis. ALL ABOVE CRITERIA BY NASCET. 3. There is calcified plaque formation of the right cavernous carotid artery, with a mild stenosis (less than 50%). ALL ABOVE CRITERIA BY NASCET. 4. There is calcified plaque formation of the left cavernous carotid artery, with a mild stenosis (less than 50%). ALL ABOVE CRITERIA BY NASCET. N.B. : The above Results were Read Back by Gorge Finn MD to Marko Dubois DO, and understanding confirmed on 04/03/2024 15:15:15 (ET). Electronically Signed: Gorge Finn MD at 15:10 EDT , Chest X-Ray 04/03/24 15:25 IMPRESSION: There are bilateral pleural effusions. There are bilateral infiltrates. Electronically Signed: Gorge Finn MD at 15:51 EDT , Assessment & Plan Assessment/Plan (1) Dysarthria: PLAN: Plan # Dysarthria and ataxia -Started at 1:30 PM at home, has almost completely resolved with some residual dysarthria -Admit to tele -CT head w/ chronic changes in ED -CTA head and neck no acute process -MRI ordered -NIH q4hr -asa, statin -Echo w/ bubble study -PT/OT/Speech eval -Teleneuro consult ordered -Hold BP medications to allow for permissive hypertension for 24 hours unless SBP greater than 220 or DBP greater than 120 or until stroke is ruled out # Shortness of breath -Patient has had shortness of breath for a year with slight cough over the past month -Vitally stable -Did have some possible pulmonary congestion on x-ray -Will obtain BNP -Echo in the morning -Daily weights, I's and O's -Not in respiratory distress or hypoxic so we will hold off on treating any fluid overload empirically # CKD stage III b -Appears to be slightly above baseline however last values were from a year ago -Repeat in the a.m. -Avoid nephrotoxic agents -Daily BMPs # History of A-fib/PE -Patient is on Eliquis 2.5 mg twice daily -Patient presently normal sinus rhythm #Type 2 diabetes mellitus -Glucose checks and sliding scale insulin -Will start lower dose of long-acting insulin while awaiting swallow eval #Morbid obesity -BMI documented as 44 kg/m? at time of admission -Complicates treatment, prognosis, outcomes -Recommend weight loss and lifestyle changes #Hx HTN -Hold losartan d/t Permissive HTN #Chronic BPH with obstruction -Continue home medications #DVT ppx: On Eliquis Veronica Gonzalez MD Charges/Coding Visit Charges Inpatient E&M: 05845 Init Hosp L2
--- NOTE | 2024-04-03 17:45 | ECHOCS_ITS ---
Reason For Study: TIA/STROKE Procedure This was a 2D Doppler, Color Flow transthoracic echocardiogram. The study was technically difficult. Contrast injection was performed. Exam performed portable in patient room. Left Ventricle Normal LV size. The estimated ejection fraction is 65 %. No evidence for diastolic dysfunction. No regional wall motion abnormalities noted. Right Ventricle Normal RV size. Normal systolic function. Atria The left atrium is mildly enlarged. Normal right atrium. No doppler evidence for ASD. Bubble contrast study negative for right to left interatrial shunt. Mitral Valve There is no mitral valve stenosis. No mitral valve insufficiency. Tricuspid Valve There is no tricuspid stenosis. Unable to estimate RV systolic pressure due to inadequate jet, pulmonary artery pressure probably normal. Aortic Valve The aortic valve is not well visualized. There is no aortic stenosis. No aortic valve insufficiency. Pulmonic Valve There is no pulmonic valvular stenosis. No pulmonic valve insufficiency. Great Vessels Normal aortic root. Pericardium/Pleural No pericardial effusion. Medication Diluted definity 2ml given slow IV push to enhance endocardial definition. Performed a rapid injection of agitated mix of 9 cc saline and 1cc air to assess for atrial septal defect. MMode/2D Measurements & Calculations LVIDd: 4.1 cm IVSd: 1.3 cm LAV(MOD-sp4): 109.5 ml LVIDs: 3.2 cm LVPWd: 1.4 cm FS: 22.7 % LVAd ap4: 42.0 cm2 SV(MOD-sp4): 87.1 ml SV(sp4-el): 86.6 ml LVLd ap4: 8.7 cm EDV(MOD-sp4): 169.0 ml EDV(sp4-el): 172.7 ml LVAs ap4: 28.2 cm2 LVLs ap4: 7.8 cm ESV(MOD-sp4): 81.9 ml ESV(sp4-el): 86.1 ml EF(MOD-sp4): 51.6 % EF(sp4-el): 50.2 % LA A4 area: 33.7 cm2 LA dimension(2D): 4.6 cm RA A4 area: 18.5 cm2 TAPSE: 2.2 cm Time Measurements MV dec time: 0.09 sec Doppler Measurements & Calculations MV E max sander: 68.8 cm/sec Lat Peak E' Sander: 11.4 cm/sec Med Peak E' Sander: 8.8 cm/sec MV A max sander: 110.9 cm/sec E/E' lat: 6.0 E/E' med: 7.8 MV E/A: 0.62 MV V2 max: 121.5 cm/sec Ao V2 max: 193.6 cm/sec MV max P.9 mmHg MV dec slope: 802.3 cm/sec2 Ao max P.0 mmHg MV V2 mean: 66.1 cm/sec Ao V2 mean: 140.8 cm/sec MV mean P.2 mmHg Ao mean P.8 mmHg MV V2 VTI: 22.6 cm Ao V2 VTI: 43.4 cm AV (velocity ratio): 0.54 LV V1 max: 107.6 cm/sec PA V2 max: 115.6 cm/sec LV V1 max P.6 mmHg PA V2 mean: 74.6 cm/sec LV V1 mean P.0 mmHg LV V1 mean: 57.3 cm/sec LV V1 VTI: 23.6 cm ECHO/Echo Complete W/ Contrast Interpretation Summary The estimated ejection fraction is 65 %. No evidence for diastolic dysfunction. The left atrium is mildly enlarged. Ordering Physician: Veronica Gonzalez Referring Physician: CLAUDETTE YBARRA Performed By: Salma Ibarra and Student
[2024-04-03 17:47] LABS: Color, Urine Yellow (Yellow); Glucose, Dipstick Normal (Normal); Ketone-Dipstick Negative (Negative); Leukocyte Esterase-Dipstick 500 /ul (Negative); Nitrite-Dipstick Negative (Negative); Occult Blood-Urine 50 /ul (Negative); Protein-Dipstick 30 mg/dl (Negative); Urine Bilirubin Dipstick Negative (Negative); Urine Clarity Cloudy (Clear); Urine Urobilinogen Normal (Normal)
[2024-04-03 17:55] LABS: Bacteria 2+ /hpf (None Seen); Mucous, Urine 2+ /hpf (<or=2+); Red Blood Cells-Urine 5-10 SEEN /hpf (0-5); Squamous Epithelial Cells - UA 0-5 SEEN /hpf (0-5); Transitional Epithelial - Ur 0-5 SEEN /hpf (0-5); White Blood Cells 50-100 SEEN /hpf (0-5)
[2024-04-03] MEDS: Insulin Glargine-YFGN 100 UNIT/ML Pen 35 UNIT SC (21:09)
[2024-04-03] MEDS: Insulin Lispro 100 UNIT/ML INSULN.PEN SC (21:10)
[2024-04-03] MEDS: APIXABAN 2.5 MG TABLET (WCH) PO (21:10)
[2024-04-03 21:33] LABS: Bedside Glucose 252 mg/dL (74-106)
[2024-04-04 04:00] VITALS: BP 162/80; PULSE 68; RESP 18; TEMP 36.6; O2SAT 95
[2024-04-04 04:27] VITALS: BMI 44.4
[2024-04-04] MEDS: Insulin Lispro 100 UNIT/ML INSULN.PEN SC ×4 (06:22→21:16)
[2024-04-04 06:42] LABS: Bedside Glucose 221 mg/dL (74-106)
[2024-04-04 06:49] LABS: Absolute Lymphocyte Count 0.35 X10^3/uL (0.83-4.51); Absolute Neutrophil Count 8.9 X10^3/uL (2.0-7.7); Basophil# 0.01 X10^3/uL; Basophil% 0.1 % (0-1); Hematocrit 42.3 % (40-54); Hemoglobin 13.1 g/dL (13.0-16.5); Lymphocyte # 0.35 X10^3/ul (0.83-4.51); Lymphocyte % 3.7 % (19-41); Mean Corpuscular Hgb 28.1 pg (27.0-32.0); Mean Corpuscular Volume 90.8 fL (80-94); Mean Platelet Vol. 9.8 fl (6.2-12.0); Monocyte% 1.1 % (0-10); NRBC Flagged by Analyzer 0 % (0-5); Neutrophil # 8.93 X10^3/uL (2.7-7.7); Neutrophil % 94.3 % (47-70); POSITIVE DIFFERENTIAL YES; Platelet Count 245 K/mm3 (150-450); RBC Distribution Width CV 13.2 % (11.6-14.6); RBC Distribution Width SD 42.8 fl (35.1-43.9); Red Blood Count 4.66 M/mm3 (4.6-6.2); White Blood Count 9.5 K/mm3 (4.4-11.0)
[2024-04-04 07:50] LABS: ALB/GLOB Ratio 0.7 RATIO (0.9-2.4); AST(SGOT) 12 U/L (15-37); Alanine Aminotransfer ALT/SGPT 13 U/L (16-61); Albumin, Serum 3.1 g/dL (3.2-5.0); Alkaline Phosphatase 113 U/L (45-117); Anion Gap 8 (5-15); BUN 36 mg/dL (7-18); BUN/Creat Ratio 15.9 RATIO (10-20); Calcium,Total 8.8 mg/dL (8.5-10.1); Chloride 107 mmol/L (98-107); Cholesterol 119 mg/dL (200); Creatinine, Serum 2.27 mg/dL (0.70-1.30); EST Glomerular Filtration Rate 29 mL/min (>60); Est Glom Filt Rate - Afr Amer 36 mL/min (>60); Estimated Creatinine Clearance 36.94 ml/min; Globulin 4.5 g/dL (2.2-4.2); Glucose 270 mg/dL (74-106); High Density Lipoprotein 41 mg/dL; Magnesium 2.1 mg/dL (1.6-2.6); Potassium 4.6 mmol/L (3.5-5.1); Protein, Total 7.6 g/dL (6.4-8.2); Sodium Level 136 mmol/L (136-145); Thyroid Stim Hormone (TSH) 0.466 uIU/mL (0.358-3.740); Triglycerides 42 mg/dL; Very Low Density Lipoprotein 8 mg/dL (5-40)
[2024-04-04 07:59] VITALS: BP 153/69; PULSE 61; RESP 18; TEMP 36.5; O2SAT 100
[2024-04-04] MEDS: Aspirin 81 MG TAB.CHEW PO (07:59)
[2024-04-04] MEDS: FLU VACCINE **HIGH DOSE** TV 24-25 180 MCG/0.5 ML SYRINGE IM (08:00)
[2024-04-04] MEDS: APIXABAN 2.5 MG TABLET (WCH) PO ×2 (08:00→21:14)
[2024-04-04] MEDS: Escitalopram Oxalate 20 MG Tablet PO (08:00)
--- NOTE | 2024-04-04 09:00 | MRI_ITS ---
STUDY: MRI BRAIN WITHOUT CONTRAST REASON FOR EXAM: Male, 83 years old. r/o cva TECHNIQUE: Standardized multiplanar fat and water weighted pulse sequences were obtained. COMPARISON: CT of the brain April 03, 2024 and MRI of the brain April 05, 2020 FINDINGS: Moderate diffuse atrophy.. Minor periventricular white matter hyperintensity consistent with normal aging. No significant ischemic changes, mass effect restricted diffusion. Cavum septum pellucidum is noted consistent with normal developmental variant Normal bilateral basal ganglia. Normal thalami. There is no extra-axial fluid accumulation. Normal flow voids within the major intracranial circulation suggesting patency by spin echo criteria. Normal sella turcica, pituitary gland, infundibular stalk, optic chiasm and hypothalamus. Normal tectal plate and pineal gland. Normal midbrain, sherri and medulla. Focal chronic ischemic change in the right cerebellar hemisphere Normal basal cisterns. Normal bilateral temporal bones. Normal bilateral internal auditory canals. No demonstrated orbital abnormality, within the constraints of a routine brain study. Normal visualized paranasal sinuses. Normal calvarium and skull base. Normal visualized soft tissue structures. Normal visualized upper cervical spine. MRI/Brain without Contrast IMPRESSION: Moderate atrophy. No significant white matter disease or evidence for acute infarct. Focal chronic ischemic change in right cerebellar hemisphere Electronically Signed: Sy Gonzalez MD at 18:03 EDT ,
--- NOTE | 2024-04-04 09:26 | PN.HOSP_ITS ---
Reason for Visit Reason for Visit: Diagnoses Dysarthria and anarthria (04/03/24) Subjective Subjective Patient is an 83-year-old gentleman with multiple comorbidities who presented with dysarthria as well as ataxia. He also did complain of urinary frequency and dysuria. Admitted to a monitored bed where patient is currently being evaluated for possible CVA. Treatment was also initiated for his cystitis Objective Data Objective Data Vital Signs: Vital Signs Temp Pulse Resp BP Pulse Ox O2 Del Method 97.7 F L 61 18 153/69 H 100 Room Air 04/04/24 07:59 04/04/24 07:59 04/04/24 07:59 04/04/24 07:59 04/04/24 07:59 04/04/24 08:00 Oxygen Delivery Method Room Air Weight: 148.4 kg Body Mass Index (BMI) 44.4 Intake & Output: Intake and Output for Last 24 Hours 04/02/24 04/03/24 04/04/24 23:59 23:59 23:59 Intake Total 1000 / 1000 Balance 1000 / 1000 Lab / Micro Data 04/04/24 06:29 04/04/24 06:29 Labs: Laboratory Results - last 24 hr 04/03/24 14:33: WBC 7.4, RBC 4.12 L, Hgb 11.9 L, Hct 37.7 L, MCV 91.5, MCH 28.9, MCHC 31.6 L, RDW Std Deviation 45.3 H, RDW Coeff of Hilary 13.5, Plt Count 228, MPV 9.8, Immature Gran % (Auto) 0.400, Neut % (Auto) 73.0 H, Lymph % (Auto) 16.5 L, Foster % (Auto) 7.1, Eos % (Auto) 2.3, Baso % (Auto) 0.7, Absolute Neuts (auto) 5.4, Absolute Lymphs (auto) 1.21, Nucleated RBC % 0, PT 17.3 H, INR 1.4, APTT 37.1 H, Sodium 138, Potassium 4.2, Chloride 108 H, Carbon Dioxide 23.0, Anion Gap 7, BUN 31 H, Creatinine 2.56 H, Estim Creat Clear Calc 32.58, Est GFR (MDRD) Af Amer 31 L, Est GFR (MDRD) Non-Af 26 L, BUN/Creatinine Ratio 12.1, Glucose 223 H, Calcium 8.5, Troponin I High Sens 8 04/03/24 14:41: POC Glucose 211 H 04/03/24 17:33: Urine Color Yellow, Urine Clarity Cloudy, Urine pH 6.0, Ur Specific [place] 1.010, Urine Protein 30 H, Urine Glucose (UA) Normal, Urine Ketones Negative, Urine Occult Blood 50 H, Urine Nitrite Negative, Urine Bilirubin Negative, Urine Urobilinogen Normal, Ur Leukocyte Esterase 500 H, Urine RBC 5-10 SEEN, Urine WBC 50-100 SEEN, Ur Squamous Epith Cells 0-5 SEEN, Ur Transition Epith Cell 0-5 SEEN, Urine Bacteria 2+, Urine Mucus 2+ 04/03/24 20:54: POC Glucose 252 H 04/04/24 06:16: POC Glucose 221 H 04/04/24 06:29: WBC 9.5, RBC 4.66, Hgb 13.1, Hct 42.3, MCV 90.8, MCH 28.1, MCHC 31.0 L, RDW Std Deviation 42.8, RDW Coeff of Hilary 13.2, Plt Count 245, MPV 9.8, Immature Gran % (Auto) 0.800, Neut % (Auto) 94.3 H, Lymph % (Auto) 3.7 L, Foster % (Auto) 1.1, Eos % (Auto) 0.0, Baso % (Auto) 0.1, Absolute Neuts (auto) 8.9 H, A bsolute Lymphs (auto) 0.35 L, Nucleated RBC % 0, Sodium 136, Potassium 4.6, Chloride 107, Carbon Dioxide 22.0, Anion Gap 8, BUN 36 H, Creatinine 2.27 H, Estim Creat Clear Calc 36.94, Est GFR (MDRD) Af Amer 36 L, Est GFR (MDRD) Non-Af 29 L, BUN/Creatinine Ratio 15.9, Glucose 270 H, Calcium 8.8, Magnesium 2.1, Total Bilirubin 0.50, AST 12 L, ALT 13 L, Alkaline Phosphatase 113, Total Protein 7.6, Albumin 3.1 L, Globulin 4.5 H, Albumin/Globulin Ratio 0.7 L, Triglycerides 42, Cholesterol 119, LDL Cholesterol 70, VLDL Cholesterol 8, HDL Cholesterol 41, TSH 0.466 Radiography Diagnostic Testing: Radiology Impression Brain CT 04/03/24 14:48 IMPRESSION: There are no acute findings. Chronic involutional changes of the brain. Electronically Signed: Gorge Finn MD at 15:08 EDT , ADDENDUM: 04/03/24 1525 IMPRESSION: There are no acute findings. Chronic involutional changes of the brain. N.B. : The above Results were Read Back by Gorge Finn MD to Marko Dubois DO, and understanding confirmed on 04/03/2024 15:18:41 (ET). Electronically Signed: Gorge Finn MD at 15:08 EDT , Head/Neck CTA 04/03/24 14:50 IMPRESSION: 1. There is mild atherosclerotic plaque formation of the origin of the right internal carotid artery with less than 50% cross sectional diameter stenosis. ALL ABOVE CRITERIA BY NASCET. 2. There is mild atherosclerotic plaque formation of the origin of the left internal carotid artery with less than 50% cross sectional diameter stenosis. ALL ABOVE CRITERIA BY NASCET. 3. There is calcified plaque formation of the right cavernous carotid artery, with a mild stenosis (less than 50%). ALL ABOVE CRITERIA BY NASCET. 4. There is calcified plaque formation of the left cavernous carotid artery, with a mild stenosis (less than 50%). ALL ABOVE CRITERIA BY NASCET. Electronically Signed: Gorge Finn MD at 15:10 EDT , ADDENDUM: 04/03/24 1522 IMPRESSION: 1. There is mild atherosclerotic plaque formation of the origin of the right internal carotid artery with less than 50% cross sectional diameter stenosis. ALL ABOVE CRITERIA BY NASCET. 2. There is mild atherosclerotic plaque formation of the origin of the left internal carotid artery with less than 50% cross sectional diameter stenosis. ALL ABOVE CRITERIA BY NASCET. 3. There is calcified plaque formation of the right cavernous carotid artery, with a mild stenosis (less than 50%). ALL ABOVE CRITERIA BY NASCET. 4. There is calcified plaque formation of the left cavernous carotid artery, with a mild stenosis (less than 50%). ALL ABOVE CRITERIA BY NASCET. N.B. : The above Results were Read Back by Gorge Finn MD to Marko Dubois DO, and understanding confirmed on 04/03/2024 15:15:15 (ET). Electronically Signed: Gorge Finn MD at 15:10 EDT , Chest X-Ray 04/03/24 15:25 IMPRESSION: There are bilateral pleural effusions. There are bilateral infiltrates. Electronically Signed: Gorge Finn MD at 15:51 EDT , Physical Exam Narrative GENERAL: cooperative HEENT: Atraumatic; normocephalic EYES; Anicteric, Normal Conjunctiva NECK; supple, normal thyroid, RESPIRATORY: Diminished to auscultation CARDIOVASCULAR: Regular S1 S2, GI: soft, normoactive bowel sounds, : No Renal angle tenderness; EXTREMITIES: No edema, no clubbing, MUSCULOSKELETAL: no muscle wasting NEURO: Awake; no lateralizing signs. SKIN: No Rash PSYCH; Flat affect Assessment & Plan Assessment/Plan (1) Dysarthria: PLAN: Plan Patient is an 83-year-old gentleman with multiple comorbidities who presented with dysarthria as well as ataxia. He also did complain of urinary frequency and dysuria. Admitted to a monitored bed where patient is currently being evaluated for possible CVA. Treatment was also initiated for his cystitis 1. Suspected CVA ? Patient presented with dysarthria as well as ataxia admitted to telemetry for continuous monitoring. As part of his management ordered 2D echo with bubble study, every 4 NIH as well as MRI 2. Acute dyspnea ?This suspect obesity hypoventilation syndrome. 2D echo as well as proBNP ordered for subsequent eval 3. Acute cystitis ? Patient started on ceftriaxone cultures sent ? #4. Chronic kidney disease stage IV ? Kidney function at baseline 5. Paroxysmal A-fib ? Rate controlled on systemic anticoagulation with apixaban 6. Previous history of VTE with pulmonary embolism ? Patient is on apixaban 7. Class III obesity with BMI of 44.4 ? Complicating care weight loss advised 8. Diabetes mellitus type II -patient's oral hypoglycemics held. Placed on long acting insulin, Accu-Cheks a.c. and at bedtime and covered with sliding scale insulin 9. Dyslipidemia ?Patient is on statin therapy, continued at home dose 10. BPH with lower urinary obstructive symptoms - Patient treated with tamsulosin 11. Hypertension ? Blood pressure controlled, home medications to allow for permissive hypertension Wells ruling out acute CVA 12. Peripheral neuropathy ? Patient is on gabapentin 13. Depression with anxiety ? Patient is on escitalopram did continue 14. DVT prophylaxis ? On apixaban Time spent in the patient's overall evaluation,decision-making process, review of diagnostic data, adjustment of management, discussion with other providers, nursing nursing and ancillary staff involved in patient's care documentation, 52-minute minutes Charges/Coding Visit Charges Inpatient E&M: 49026 [facility] L3
[2024-04-04] MEDS: Ceftriaxone 1 GM/50 ML BAG IV (10:10)
[2024-04-04 11:30] VITALS: O2SAT 95
[2024-04-04 11:35] LABS: Bedside Glucose 296 mg/dL (74-106)
[2024-04-04 12:00] VITALS: BP 136/71; PULSE 78; RESP 18; TEMP 36.6; O2SAT 97
--- NOTE | 2024-04-04 12:18 | CASEMGMT ---
SW completed a PHQ9 with patient as he may have had a TIA or Stroke. Patient scored a 2 which indicates minimal depression. Patient denied need for counseling resources. However, during conversation patient stated he lost his a month or so ago. SW may provide patient with counseling resources including Hospice's grief counseling. Lilly Monterroso HAND [employer]ANCHO
--- NOTE | 2024-04-04 14:35 | ST.MBS ---
Modified Barium Swallow Patient Information Study Date: 04/04/24 Study Time: 13:00 Direct Billable Minutes: 91 Total Minutes procedure & reportin Diagnosis: Hx of CVA Z86.73; Dysarthria R47.1 Referring Physician: Elver Clemens Reason for Referral: Objectively assess swallow function, assess risk for aspiration, and determine recommendations for least restrictive diet textures and compensatory strategies to improve safety of swallow. Medical History: PMH: Acute blood loss anemia, MARLON, Atherosclerosis of coronary artery without angina pectoris , BPH, Chronic renal failure stage 3, Colon polyps, COPD, Debility, Depression, Duodenal ulcer, HTN, Family history of colon cancer, Fracture of humeral head left closed, GERD, CVA (2019), History of depression, History of other venous thrombosis and embolism, Hx of PE 07/2019, HLD , Hypotension, Neuropathic pain, Noncompliance, NILO, RBBB with L anterior fascicular block, Obesity, Type II diabetes mellitus uncontrolled. Pt presented to [facility] ED 2023 for dysarthria, dysphagia, ataxia w/ difficulty w/ coordination and need for walking assistance. In the ED, pt was almost back to baseline with slight dysarthria present. He does report some shortness of breath over the past year or so, as well as a cough w/ light mendez sputum for the past month. He also reports tingling in bilateral hands on and off, but not on day of presentation. Chest x-ray in the ED showed bilateral pleural effusions and bilateral infiltrate. He was admitted to PCU for CVA work up and referred for ST consult as part of work up. BSE completed today w/ recommendation of easy to chew textures / thin liquids - distant supervision. Hx of dysphagia with dysphagia POC during stay on TCU from 04/12/2020 -05/07/2020 (included aphasia POC, as well) and 2 prior MBSS. Most recent MBSS 12/07/2020, which revealed moderate oropharyngeal dysphagia and recommended soft and bite size textures / thin liquids w / use of strategies to decrease risk for aspiration. Currently, he has been consuming regular textures w/ tender or ground meats / thin liquids without difficulty swallowing per patient. Current Diet Ordered: Easy to Chew / Thin Dentition: Decay and Missing Teeth Mental Status: Impaired (Hx of aphasia, repetition to follow commands) Respiratory Status: Oxygenating on Room Air Penetration-Aspiration Scale Penetration-Aspiration Scale: OBJECTIVE ASSESSMENT OF SWALLOW FUNCTION (QUANTITATIVE ? PER TRIAL): PENETRATION / ASPIRATION SCALE (MORENO): 1 = does not enter airway 2 = enters airway/above vocal folds/ejected 3 = enters airway/above vocal folds/not ejected 4 = enters airway/contacts vocal folds/ejected 5 = enters airway/contacts vocal folds/not ejected 6 = enters airway/below vocal folds/ejected 7 = enters airway/below vocal folds/not ejected despite effort 8 = enters airway/below vocal folds/no effort VIDEOFLOROSCOPIC SCALE SCORE (MORENO): Grade I = aspiration of material that has penetrated into the laryngeal vestibule, intact cough reflex Grade II = aspiration < 10 % of the bolus, intact cough reflex Grade III = aspiration of < 10 % of the bolus, reduced cough reflex or aspiration of > 10 % of the bolus, intact cough reflex Grade IV = aspiration of > 10 % of the bolus, reduced cough reflex Penetration-Aspiration Scale Score Thin Liquid via teaspoon: Result: 1= does not enter airway Thin Liquid via teaspoon Trial 2: Result: 1= does not enter airway Thin Liquid via large single sip: cup: Result: 3= enters airways/above vocal folds/not ejected [place] Thick Liquid via large single sip: cup: Result: 1= does not enter airway Pudding via teaspoon: Result: 1= does not enter airway 1/2 Cookie: Result: 1= does not enter airway Thin Liquid via single sip: straw: Result: 4= enters airway/contacts vocal folds/ejected Thin Liquid via single sip: straw Effortful swallow: Result: 2= enter airway/above vocal folds/ejected Comment: very large sip Thin Liquid via small single sip: cup Effortful swallow: Result: 1= does not enter airway Oral Phase Labial Seal: No Labial Escape Tongue Control During Bolus Hold: Posterior escape of greater than half of bolus Bolus Preparation/Mastication: Slow prolonged chewing/mashing with complete recollection Bolus Transport/Lingual Motion: Slowed tongue motion Oral Residue: Residue collection on oral structures Pharyngeal Phase Initiation of Pharyngeal Swallow: Bolus head in pyriforms Soft Palate Elevation: Trace column of contrast/air between soft palate and pharyngeal wall Laryngeal Elevation: Partial superior movement thyroid cart/partial apprx aryt-epig petiole Anterior Hyoid Excursion: Partial anterior movement Epiglottic Movement: Complete inversion Laryngeal Vestibule Closure at Height of Swallow: Incomplete; narrow column of air/contrast in laryngeal vestibule Pharyngeal Stripping Wave: Present - complete Pharyngoesophageal Segment Opening: Complete distension and complete duration; no obstruction of flow Tongue Base Retraction: Narrow column of contrast between tongue base & post. pharyngeal wall Pharyngeal Residue: Trace residue within or on pharyngeal structures Esophageal Phase Esophageal Clearance: Complete clearance Diagnosis/Impression Diagnosis: Mild oropharyngeal dysphagia R13.12 Impression: The oral phase is primarily marked by... -Decreased bolus control w/ posterior loss of >1/2 of various consistencies to the pharynx prior to swallow onset. -Slowed tongue motion for A-P transport. -Mild oral residues, which spilled posteriorly to the vallecula after the swallow at times. -Slowed, but complete mastication of cookie. The pharyngeal phase is primarily marked by... -Delayed swallow onset. -Decreased airway closure during the swallow due to decreased anterior hyoid excursion and laryngeal elevation. Laryngeal penetration of thin liquids via cup w/o full ejection. Laryngeal penetration of thin liquids via straw to the vocal folds, which fully ejected. No aspiration observed; however, patient benefits from use of small sips, effortful swallows to decrease aspiration risk. Recommendations Diet: Regular Textures (Easy to Chew textures- IDDSI Level 7) and Thin Liquids Comment: meds whole w/ applesauce Compensatory Strategies: Small Bites, Small Sips, Slow Rate, Sitting upright and Remain sitting upright for 30 minutes after PO intake Supervision: Distant Supervision Recommend Repeat Modified Barium Swallow: TBD Need for Skilled Speech Therapy Services: Yes Education Completed: 1. Described result of evaluation. and 7. Pt requires further education on strategies & risks. Status Active ST Patient: Active Contact Information [facility] Speech Therapy:: Jessica Benton M.A. CCC-MANAGER ACTIVITIES? Speech-Language Pathologist?? [facility] [address] [place] [address]? [email or web address]?? [phone]
--- NOTE | 2024-04-04 14:46 | PN.NEURO_ITS ---
Assessment and Plan: Neuro Assessment/Plan 83 y/o man with ho/ stroke, paroxysmal Afib on eliquis, DM, DLD and HTN p/w after an episode of expressive aphasia, BG at home was in 200's and took 22 units of insulin. Also c/o headache and neck pain along with stiffness. Denies any frequent falls. Has not missed any doses of his Eliquis. Denies any fever, chills, shortness of breath, chest pain, abdominal pain, nausea, vomiting, dysuria, weakness, numbness or tingling. CT head- no acute intracranial process. CTA- b/l ICA <50% stenosis with no LVO. Diagnosis: TIA Plan: Continue eliquis and statin. Follow up MRI brain. OT/PT/DIRECTOR GEOTHERMAL OPERATIONS I personally attended this patient and spent a total time of 35 minutes evaluating this patient including clinical assessment, review of chart, medical history imaging, and determining appropriate treatment and workup. Subject: Neurology Subjective 83 y/o man with ho/ stroke, paroxysmal Afib on eliquis, DM, DLD and HTN p/w after an episode of expressive aphasia, BG at home was in 200's and took 22 units of insulin. Also c/o headache and neck pain along with stiffness. Denies any frequent falls. Has not missed any doses of his Eliquis. Denies any fever, chills, shortness of breath, chest pain, abdominal pain, nausea, vomiting, dysuria, weakness, numbness or tingling. Today, he reports feeling back to normal. NIHSS-0 NIHSS NIHSS Nursing Documentation NIHSS Nursing Documentation: NIH Stroke Scale Start: 04/03/24 14:41 Freq: Status: Discharge Protocol: Activity Type Activity Date Activity User E-sign Co-sign Detail Recorded Client Recorded Date Recorded By Document 04/03/24 14:41 HO .... 04/03/24 14:43 HO 04/03/24 14:41 NIH Stroke Scale [NIHSS] A score of 0 is normal or asymptomatic . Total possible score is 42. Inpatient: RN or Physician to activate a stroke alert for onset of new stroke symptoms or with NIHSS increase >/= 3 points. Following change in neurological status, NIHSS will be performed per physician order or more frequently PRN. -1a. Level of Consciousness Alert; keenly responsive -1b. LOC Questions Answers BOTH questions correctly. -1c. LOC Commands Performs both tasks correctly . -2. Best Gaze Normal -3. Visual No visual loss -4. Facial Palsy Normal symmetrical movements -5a. Left Arm No drift; arm holds 90 (or 45 ) degrees for full 10 seconds -5b. Right Arm No drift; arm holds 90 (or 45 ) degrees for full 10 seconds -6a. Left Leg No drift; leg holds 30-degree position for full 5 seconds -6b. Right Leg No drift; leg holds 30-degree position for full 5 seconds -7. Limb Ataxia Absent -8. Sensory Normal; no sensory loss -9. Best Language No aphasia; normal -10. Dysarthria Mild-to- moderate dysarthria; -11. Extinction and Inattention No abnormality -Total 1 Query Text:A score of 0 is normal or asymptomatic. Total possible score is 42 . ED: Notify Physician for NIHSS increase by > / = 3 points. Inpatient: RN or Physician to activate a stroke alert for NIHSS increase of > / = 3 points. NIHSS: Ischemic Stroke/TIA Start: 04/03/24 18:47 Text: For PCU Patients: NIH and Neuro Check every 4 Status: Active hours, PRN and with change in RN caregiver. Freq: [id number] Protocol: Activity Type Activity Date Activity User E-sign Co-sign Detail Recorded Client Recorded Date Recorded By Document 04/04/24 12:00 AMG [id number] 04/04/24 12:12 AMG 04/04/24 12:00 -1a. Level of Consciousness Alert; keenly responsive -1b. LOC Questions Answers BOTH questions correctly. -1c. LOC Commands Performs both tasks correctly . -2. Best Gaze Normal -3. Visual No visual loss -4. Facial Palsy Normal symmetrical movements -5a. Left Arm No drift; arm holds 90 (or 45 ) degrees for full 10 seconds -5b. Right Arm No drift; arm holds 90 (or 45 ) degrees for full 10 seconds -6a. Left Leg No drift; leg holds 30-degree position for full 5 seconds -6b. Right Leg No drift; leg holds 30-degree position for full 5 seconds -7. Limb Ataxia Absent -8. Sensory Normal; no sensory loss -9. Best Language No aphasia; normal -10. Dysarthria Normal -11. Extinction and Inattention No abnormality -Total 0 Query Text:A score of 0 is normal or asymptomatic. Total possible score is 42 . ED: Notify Physician for NIHSS increase by > / = 3 points. Inpatient: RN or Physician to activate a stroke alert for NIHSS increase of > / = 3 points. Coma Scale [Assess] -Eye Opening Spontaneous -Motor Obeys Commands -Verbal Oriented [Total] -Coma Scale Total 15 NIHSS 1a. Level of Consciousness: Alert; keenly responsive 1b. LOC Questions: Answers BOTH questions correctly. 1c. LOC Commands: Performs both tasks correctly. 2. Best Gaze: Normal 3. Visual: No visual loss 4. Facial Palsy: Normal symmetrical movements 5a. Left Arm: No drift; arm holds 90 (or 45) degrees for full 10 seconds 5b. Right Arm: No drift; arm holds 90 (or 45) degrees for full 10 seconds 6a. Left Leg: No drift; leg holds 30-degree position for full 5 seconds 6b. Right Leg: No drift; leg holds 30-degree position for full 5 seconds 7. Limb Ataxia: Absent 8. Sensory: Normal; no sensory loss 9. Best Language: No aphasia; normal 10. Dysarthria: Normal 11. Extinction and Inattention: No abnormality Total: 0 EEG Results Procedure Details EEG Procedure Details: WADE HERNANDEZ is a 83 year old M with a past medical history of , who presents for evaluation of Electroencephalogram on DATE at TIME Objective Data Objective Data Neurological Exam - General: The patient appears nutritionally appropriate, well-groomed, and appears comfortable in no acute distress. Mental Status:? The patient?s mental status was normal including orientation.? Language was intact.? Cranial nerves:? Visual enrique full, and extra-ocular motion was intact. Symmetrical face. M otor: Normal strength in all extremities Sensation: Normal in all extremities.? Coordination:? Bilateral finger to nose was normal.? There was no dysmetria. G ait:? deferred Vital Signs: Vital Signs Temp Pulse Resp BP Pulse Ox O2 Del Method 97.8 F 78 18 136/71 H 97 Room Air 04/04/24 12:00 04/04/24 12:00 04/04/24 12:00 04/04/24 12:00 04/04/24 12:00 04/04/24 14:00 Oxygen Delivery Method Room Air Weight: 148.4 kg Body Mass Index (BMI) 44.4 Intake & Output: Intake and Output for Last 24 Hours 04/02/24 04/03/24 04/04/24 23:59 23:59 23:59 Intake Total 1000 / 1000 50 / 50 Balance 1000 / 1000 50 / 50 Lab / Micro Data 04/04/24 06:29 04/04/24 06:29 Labs: Laboratory Results - last 24 hr 04/03/24 14:33: WBC 7.4, RBC 4.12 L, Hgb 11.9 L, Hct 37.7 L, MCV 91.5, MCH 28.9, MCHC 31.6 L, RDW Std Deviation 45.3 H, RDW Coeff of Hilary 13.5, Plt Count 228, MPV 9.8, Immature Gran % (Auto) 0.400, Neut % (Auto) 73.0 H, Lymph % (Auto) 16.5 L, Irion % (Auto) 7.1, Eos % (Auto) 2.3, Baso % (Auto) 0.7, Absolute Neuts (auto) 5.4, Absolute Lymphs (auto) 1.21, Nucleated RBC % 0, PT 17.3 H, INR 1.4, APTT 37.1 H, Sodium 138, Potassium 4.2, Chloride 108 H, Carbon Dioxide 23.0, Anion Gap 7, BUN 31 H, Creatinine 2.56 H, Estim Creat Clear Calc 32.58, Est GFR (MDRD) Af Amer 31 L, Est GFR (MDRD) Non-Af 26 L, BUN/Creatinine Ratio 12.1, G lucose 223 H, Calcium 8.5, Troponin I High Sens 8 04/03/24 14:41: POC Glucose 211 H 04/03/24 17:33: Urine Color Yellow, Urine Clarity Cloudy, Urine pH 6.0, Ur Specific [place] 1.010, Urine Protein 30 H, Urine Glucose (UA) Normal, Urine Ketones Negative, Urine Occult Blood 50 H, Urine Nitrite Negative, Urine Bilirubin Negative, Urine Urobilinogen Normal, Ur Leukocyte Esterase 500 H, Urine RBC 5-10 SEEN, Urine WBC 50-100 SEEN, Ur Squamous Epith Cells 0-5 SEEN, Ur Transition Epith Cell 0-5 SEEN, Urine Bacteria 2+, Urine Mucus 2+ 04/03/24 20:54: POC Glucose 252 H 04/04/24 06:16: POC Glucose 221 H 04/04/24 06:29: WBC 9.5, RBC 4.66, Hgb 13.1, Hct 42.3, MCV 90.8, MCH 28.1, MCHC 31.0 L, RDW Std Deviation 42.8, RDW Coeff of Hilary 13.2, Plt Count 245, MPV 9.8, Immature Gran % (Auto) 0.800, Neut % (Auto) 94.3 H, Lymph % (Auto) 3.7 L, [place] % (Auto) 1.1, Eos % (Auto) 0.0, Baso % (Auto) 0.1, Absolute Neuts (auto) 8.9 H, A bsolute Lymphs (auto) 0.35 L, Nucleated RBC % 0, Sodium 136, Potassium 4.6, Chloride 107, Carbon Dioxide 22.0, Anion Gap 8, BUN 36 H, Creatinine 2.27 H, Estim Creat Clear Calc 36.94, Est GFR (MDRD) Af Amer 36 L, Est GFR (MDRD) Non-Af 29 L, BUN/Creatinine Ratio 15.9, Glucose 270 H, Calcium 8.8, Magnesium 2.1, Total Bilirubin 0.50, AST 12 L, ALT 13 L, Alkaline Phosphatase 113, Total Protein 7.6, Albumin 3.1 L, Globulin 4.5 H, Albumin/Globulin Ratio 0.7 L, Triglycerides 42, Cholesterol 119, LDL Cholesterol 70, VLDL Cholesterol 8, HDL Cholesterol 41, TSH 0.466 04/04/24 11:17: POC Glucose 296 H Radiography Diagnostic Testing: Radiology Impression Brain CT 04/03/24 14:48 IMPRESSION: There are no acute findings. Chronic involutional changes of the brain. Electronically Signed: Gorge Finn MD at 15:08 EDT , ADDENDUM: 04/03/24 3096 IMPRESSION: There are no acute findings. Chronic involutional changes of the brain. N.B. : The above Results were Read Back by Gorge Finn MD to Marko Dubois DO, and understanding confirmed on 04/03/2024 15:18:41 (ET). Electronically Signed: Gorge Finn MD at 15:08 EDT , Head/Neck CTA 04/03/24 14:50 IMPRESSION: 1. There is mild atherosclerotic plaque formation of the origin of the right internal carotid artery with less than 50% cross sectional diameter stenosis. ALL ABOVE CRITERIA BY NASCET. 2. There is mild atherosclerotic plaque formation of the origin of the left internal carotid artery with less than 50% cross sectional diameter stenosis. ALL ABOVE CRITERIA BY NASCET. 3. There is calcified plaque formation of the right cavernous carotid artery, with a mild stenosis (less than 50%). ALL ABOVE CRITERIA BY NASCET. 4. There is calcified plaque formation of the left cavernous carotid artery, with a mild stenosis (less than 50%). ALL ABOVE CRITERIA BY NASCET. Electronically Signed: Gorge Finn MD at 15:10 EDT , ADDENDUM: 04/03/24 1522 IMPRESSION: 1. There is mild atherosclerotic plaque formation of the origin of the right internal carotid artery with less than 50% cross sectional diameter stenosis. ALL ABOVE CRITERIA BY NASCET. 2. There is mild atherosclerotic plaque formation of the origin of the left internal carotid artery with less than 50% cross sectional diameter stenosis. ALL ABOVE CRITERIA BY NASCET. 3. There is calcified plaque formation of the right cavernous carotid artery, with a mild stenosis (less than 50%). ALL ABOVE CRITERIA BY NASCET. 4. There is calcified plaque formation of the left cavernous carotid artery, with a mild stenosis (less than 50%). ALL ABOVE CRITERIA BY NASCET. N.B. : The above Results were Read Back by Gorge Finn MD to Marko Dubois DO, and understanding confirmed on 04/03/2024 15:15:15 (ET). Electronically Signed: Gorge Finn MD at 15:10 EDT , Chest X-Ray 04/03/24 15:25 IMPRESSION: There are bilateral pleural effusions. There are bilateral infiltrates. Electronically Signed: Gorge Finn MD at 15:51 EDT , Echocardiogram 04/03/24 17:45 Interpretation Summary The estimated ejection fraction is 65 %. No evidence for diastolic dysfunction. The left atrium is mildly enlarged. Ordering Physician: Veronica Gonzalez Referring Physician: CLAUDETTE YBARRA Performed By: Salma Ibarra and Student
[2024-04-04 16:00] VITALS: BP 142/61; PULSE 76; RESP 18; TEMP 36.4; O2SAT 95
--- NOTE | 2024-04-04 16:33 | CASEMGMT ---
Met with patient to complete CLIFFORD form. CLIFFORD form explained to patient who voiced understanding and signed form. Original form placed in pt?s chart and copy provided to patient. Tierney Raphael, Discharge Planning Asst
[2024-04-04] MEDS: Tamsulosin HCl 0.4 MG Capsule 0.8 MG PO (16:53)
[2024-04-04 17:14] LABS: Bedside Glucose 271 mg/dL (74-106)
[2024-04-04] MEDS: Acetaminophen 325 MG Tablet 650 MG PO (17:47)
[2024-04-04] MEDS: Atorvastatin Calcium 40 MG Tablet PO (21:14)
[2024-04-04] MEDS: Insulin Glargine-YFGN 100 UNIT/ML Pen 35 UNIT SC (21:15)
[2024-04-04 21:42] LABS: Bedside Glucose 272 mg/dL (74-106)
[2024-04-04 21:57] VITALS: BP 138/65; PULSE 59; RESP 18; TEMP 36.7; O2SAT 97
[2024-04-05 04:00] VITALS: BP 143/69; PULSE 57; RESP 18; TEMP 36.6; O2SAT 97
[2024-04-05 04:27] VITALS: BMI 43.9
[2024-04-05 06:26] LABS: Bedside Glucose 129 mg/dL (74-106)
[2024-04-05 06:33] LABS: Absolute Lymphocyte Count 0.91 X10^3/uL (0.83-4.51); Absolute Neutrophil Count 7.3 X10^3/uL (2.0-7.7); Basophil# 0.04 X10^3/uL; Basophil% 0.4 % (0-1); Eosinophil# 0.07 X10^3/uL; Eosinophils% 0.8 % (0-5); Hematocrit 38.8 % (40-54); Hemoglobin 12.3 g/dL (13.0-16.5); Lymphocyte # 0.91 X10^3/ul (0.83-4.51); Mean Corp Hgb Conc 31.7 g/dL (32-36); Mean Corpuscular Hgb 28.9 pg (27.0-32.0); Mean Corpuscular Volume 91.1 fL (80-94); Mean Platelet Vol. 10.1 fl (6.2-12.0); Monocyte# 0.76 X10^3/uL; Monocyte% 8.4 % (0-10); NRBC Flagged by Analyzer 0 % (0-5); Neutrophil # 7.26 X10^3/uL (2.7-7.7); Neutrophil % 79.8 % (47-70); Platelet Count 240 K/mm3 (150-450); RBC Distribution Width CV 13.3 % (11.6-14.6); RBC Distribution Width SD 43.8 fl (35.1-43.9); Red Blood Count 4.26 M/mm3 (4.6-6.2); White Blood Count 9.1 K/mm3 (4.4-11.0)
[2024-04-05 06:55] LABS: Anion Gap 5 (5-15); BUN 38 mg/dL (7-18); BUN/Creat Ratio 18.6 RATIO (10-20); Calcium,Total 8.7 mg/dL (8.5-10.1); Chloride 109 mmol/L (98-107); Creatinine, Serum 2.04 mg/dL (0.70-1.30); EST Glomerular Filtration Rate 33 mL/min (>60); Est Glom Filt Rate - Afr Amer 40 mL/min (>60); Glucose 152 mg/dL (74-106); Magnesium 2.4 mg/dL (1.6-2.6); Phosphorus 3.7 mg/dL (2.5-4.9); Potassium 4.4 mmol/L (3.5-5.1); Sodium Level 138 mmol/L (136-145)
[2024-04-05 10:00] VITALS: O2SAT 96
[2024-04-05] MEDS: Aspirin 81 MG TAB.CHEW PO (10:03)
[2024-04-05] MEDS: Nystatin Powder 15gm Bottle 1 APPLIC TOPICAL ×3 (10:03→23:03)
[2024-04-05] MEDS: APIXABAN 2.5 MG TABLET (WCH) PO ×2 (10:03→23:02)
[2024-04-05] MEDS: 0.9% Saline Lock 10 ML Syringe IV (10:04)
[2024-04-05] MEDS: Ceftriaxone 1 GM/50 ML BAG IV (10:04)
[2024-04-05] MEDS: Escitalopram Oxalate 20 MG Tablet PO (10:04)
[2024-04-05 11:00] VITALS: BP 150/68; PULSE 57; RESP 18; TEMP 36.4; O2SAT 99
[2024-04-05 11:56] LABS: Bedside Glucose 145 mg/dL (74-106)
[2024-04-05 12:00] VITALS: BP 150/68; PULSE 57; RESP 18; TEMP 36.4; O2SAT 99
--- NOTE | 2024-04-05 13:02 | PN.HOSP_ITS ---
Reason for Visit Reason for Visit: Diagnoses Dysarthria and anarthria (04/03/24) Subjective Subjective Patient MRI was negative for acute CVA, urinalysis so far positive for gram- negative rods final identification and sensitivities pending Objective Data Objective Data Vital Signs: Vital Signs Temp Pulse Resp BP Pulse Ox O2 Del Method 97.6 F L 57 L 18 150/68 H 99 Room Air 04/05/24 12:00 04/05/24 12:00 04/05/24 12:00 04/05/24 12:00 04/05/24 12:00 04/05/24 12:00 Oxygen Delivery Method Room Air Weight: 147.1 kg Body Mass Index (BMI) 43.9 Intake & Output: Intake and Output for Last 24 Hours 04/03/24 04/04/24 04/05/24 23:59 23:59 23:59 Intake Total 1000 / 1000 50 / 50 50 / 50 Balance 1000 / 1000 50 / 50 50 / 50 Lab / Micro Data 04/05/24 05:19 04/05/24 05:19 Labs: Laboratory Results - last 24 hr 04/04/24 16:52: POC Glucose 271 H 04/04/24 21:13: POC Glucose 272 H 04/05/24 05:19: WBC 9.1, RBC 4.26 L, Hgb 12.3 L, Hct 38.8 L, MCV 91.1, MCH 28.9, MCHC 31.7 L, RDW Std Deviation 43.8, RDW Coeff of Hilary 13.3, Plt Count 240, MPV 10.1, Immature Gran % (Auto) 0.600, Neut % (Auto) 79.8 H, Lymph % (Auto) 10.0 L, [place] % (Auto) 8.4, Eos % (Auto) 0.8, Baso % (Auto) 0.4, Absolute Neuts (auto) 7.3, Absolute Lymphs (auto) 0.91, Nucleated RBC % 0, Sodium 138, Potassium 4.4, Chloride 109 H, Carbon Dioxide 24.0, Anion Gap 5, BUN 38 H, Creatinine 2.04 H, Estim Creat Clear Calc 40.90, Est GFR (MDRD) Af Amer 40 L, Est GFR (MDRD) Non-Af 33 L, BUN/Creatinine Ratio 18.6, Glucose 152 H, Calcium 8.7, Phosphorus 3.7, Magnesium 2.4 04/05/24 06:08: POC Glucose 129 H 04/05/24 11:16: POC Glucose 145 H Micro: Microbiology 04/03/24 17:33 Urine, Clean Catch Urine Culture - Preliminary Gram negative cata Radiography Diagnostic Testing: Radiology Impression Echocardiogram 04/03/24 17:45 Interpretation Summary The estimated ejection fraction is 65 %. No evidence for diastolic dysfunction. The left atrium is mildly enlarged. Ordering Physician: Veronica Gonzalez Referring Physician: CLAUDETTE YABRRA Performed By: Salma Ibarra and Student Brain MRI 04/04/24 09:00 IMPRESSION: Moderate atrophy. No significant white matter disease or evidence for acute infarct. Focal chronic ischemic change in right cerebellar hemisphere Electronically Signed: Sy Gonzalez MD at 18:03 EDT , Physical Exam Narrative GENERAL: cooperative HEENT: Atraumatic; normocephalic EYES; Anicteric, Normal Conjunctiva NECK; supple, normal thyroid, RESPIRATORY: Diminished to auscultation CARDIOVASCULAR: Regular S1 S2, GI: soft, normoactive bowel sounds, : No Renal angle tenderness; EXTREMITIES: No edema, no clubbing, MUSCULOSKELETAL: no muscle wasting NEURO: Awake; no lateralizing signs. SKIN: No Rash PSYCH; Flat affect Assessment & Plan Assessment/Plan (1) Dysarthria: PLAN: Plan Patient is an 83-year-old gentleman with multiple comorbidities who presented with dysarthria as well as ataxia. He also did complain of urinary frequency and dysuria. Admitted to a monitored bed where patient is currently being evaluated for possible CVA. Treatment was also initiated for his cystitis 1. Suspected CVA ? Patient presented with dysarthria as well as ataxia admitted to telemetry for continuous monitoring. As part of his management ordered 2D echo with bubble study, every 4 NIH as well as MRI ? 04/05/2024; MRI was negative for acute CVA every 4 neurochecks discontinued 2. Acute dyspnea ?This suspect obesity hypoventilation syndrome. 2D echo as well as proBNP ordered for subsequent eval ? 2D echo demonstrated ejection fraction of 65% with no evidence of diastolic dysfunction. 3. Acute cystitis ? Patient started on ceftriaxone cultures sent ? 04/05/2024 urine culture sent, so far positive for gram-negative rods greater than 100 K CFU awaiting final identification and sensitivities 4. Chronic kidney disease stage IV ? Kidney function at baseline 5. Paroxysmal A-fib ? Rate controlled on systemic anticoagulation with apixaban 6. Previous history of VTE with pulmonary embolism ? Patient is on apixaban 7. Class III obesity with BMI of 44.4 ? Complicating care weight loss advised 8. Diabetes mellitus type II -patient's oral hypoglycemics held. Placed on long acting insulin, Accu-Cheks a.c. and at bedtime and covered with sliding scale insulin 9. Dyslipidemia ?Patient is on statin therapy, continued at home dose 10. BPH with lower urinary obstructive symptoms - Patient treated with tamsulosin 11. Hypertension ? Blood pressure controlled, home medications to allow for permissive hypertension Wells ruling out acute CVA 12. Peripheral neuropathy ? Patient is on gabapentin 13. Depression with anxiety ? Patient is on escitalopram did continue 14. DVT prophylaxis ? On apixaban 15. Physical deconditioning ? Requested for PT OT eval and family welfare social work professor to assist with discharge planning Time spent in the patient's overall evaluation,decision-making process, review of diagnostic data, adjustment of management, discussion with other providers, nursing nursing and ancillary staff involved in patient's care documentation, 38-minutes Charges/Coding Visit Charges Inpatient E&M: 69282 Subs Hosp L2
[2024-04-05] MEDS: Senna/Docusate Sodium 1 Tablet 2 TABLET PO (15:19)
[2024-04-05 16:13] LABS: Bedside Glucose 220 mg/dL (74-106)
[2024-04-05] MEDS: Insulin Lispro 100 UNIT/ML INSULN.PEN SC (17:11)
[2024-04-05] MEDS: Tamsulosin HCl 0.4 MG Capsule 0.8 MG PO (17:11)
[2024-04-05 17:40] VITALS: BP 159/68; PULSE 56; RESP 18; TEMP 36.2; O2SAT 100
[2024-04-05 22:50] VITALS: BP 137/66; PULSE 50; RESP 16; TEMP 35.6; O2SAT 98
[2024-04-05] MEDS: Insulin Glargine-YFGN 100 UNIT/ML Pen 35 UNIT SC (23:02)
[2024-04-05] MEDS: Atorvastatin Calcium 40 MG Tablet PO (23:03)
[2024-04-05 23:28] LABS: Bedside Glucose 147 mg/dL (74-106)
[2024-04-06 04:10] VITALS: BP 160/72; PULSE 52; RESP 16; TEMP 36.6; O2SAT 94
[2024-04-06 05:42] LABS: Absolute Lymphocyte Count 1.32 X10^3/uL (0.83-4.51); Absolute Neutrophil Count 4.4 X10^3/uL (2.0-7.7); Basophil# 0.04 X10^3/uL; Basophil% 0.6 % (0-1); Hematocrit 37.2 % (40-54); Hemoglobin 11.8 g/dL (13.0-16.5); Lymphocyte # 1.32 X10^3/ul (0.83-4.51); Lymphocyte % 19.8 % (19-41); Mean Corp Hgb Conc 31.7 g/dL (32-36); Mean Corpuscular Hgb 28.7 pg (27.0-32.0); Mean Corpuscular Volume 90.5 fL (80-94); Mean Platelet Vol. 9.6 fl (6.2-12.0); Monocyte# 0.64 X10^3/uL; Monocyte% 9.6 % (0-10); NRBC Flagged by Analyzer 0 % (0-5); Neutrophil # 4.44 X10^3/uL (2.7-7.7); Neutrophil % 66.6 % (47-70); Platelet Count 225 K/mm3 (150-450); RBC Distribution Width CV 13.3 % (11.6-14.6); RBC Distribution Width SD 43.7 fl (35.1-43.9); Red Blood Count 4.11 M/mm3 (4.6-6.2); White Blood Count 6.7 K/mm3 (4.4-11.0)
[2024-04-06 05:56] VITALS: BMI 43.4
[2024-04-06 06:09] LABS: Anion Gap 4 (5-15); BUN 34 mg/dL (7-18); BUN/Creat Ratio 18.9 RATIO (10-20); Calcium,Total 8.2 mg/dL (8.5-10.1); Chloride 111 mmol/L (98-107); EST Glomerular Filtration Rate 39 mL/min (>60); Est Glom Filt Rate - Afr Amer 47 mL/min (>60); Glucose 83 mg/dL (74-106); Potassium 4.2 mmol/L (3.5-5.1); Sodium Level 140 mmol/L (136-145)
[2024-04-06] MEDS: Nystatin Powder 15gm Bottle 1 APPLIC TOPICAL (06:26)
[2024-04-06] MEDS: 0.9% Saline Lock 10 ML Syringe IV (06:26)
[2024-04-06 07:00] LABS: Bedside Glucose 71 mg/dL (74-106)
[2024-04-06 08:50] LABS: Bedside Glucose 84 mg/dL (74-106)
--- NOTE | 2024-04-06 08:54 | PCM.DC.SUM ---
Providers Date of Admission: 04/03/24 Date of Discharge: 04/06/24 Primary Care Physician: Dr. Wili Nelson, DO Consultations 04/03/24 18:47 Consult: Tele-Neurology Routine Consulting Provider: [facility] Reason for Consult: Acute Ischemic Stroke/TIA EMERGENT Consult: No MD Notified: Yes Date Notified: 04/03/24 Time Notified: 20:12 Method of Notification: Answering Service Nursing Unit Staff Notify [facility] of Tele-Neurology Consult: Yes Reason For Visit: CVA R/O Diagnosis Discharge Diagnosis (1) Dysarthria: Status: Acute Code(s): R47.1 - Dysarthria and anarthria Plan Patient is an 83-year-old gentleman with multiple comorbidities who presented with dysarthria as well as ataxia. He also did complain of urinary frequency and dysuria. Admitted to a monitored bed where patient is currently being evaluated for possible CVA. Treatment was also initiated for his cystitis 1. Suspected CVA ? Patient presented with dysarthria as well as ataxia admitted to telemetry for continuous monitoring. As part of his management ordered 2D echo with bubble study, every 4 NIH as well as MRI ? 04/05/2024; MRI was negative for acute CVA every 4 neurochecks discontinued 2. Acute dyspnea ?This suspect obesity hypoventilation syndrome. 2D echo as well as proBNP ordered for subsequent eval ? 2D echo demonstrated ejection fraction of 65% with no evidence of diastolic dysfunction. 3. Acute cystitis with Proteus mirabilis ? Patient started on ceftriaxone cultures sent ? 04/05/2024 urine culture sent, so far positive for gram-negative rods greater than 100 K CFU awaiting final identification and sensitivities ? 03/07/2024 urine cultures came back positive for Proteus mirabilis patient was discharged on cefpodoxime based on sensitivities 4. Chronic kidney disease stage IV ? Kidney function at baseline 5. Paroxysmal A-fib ? Rate controlled on systemic anticoagulation with apixaban 6. Previous history of VTE with pulmonary embolism ? Patient is on apixaban 7. Class III obesity with BMI of 44.4 ? Complicating care weight loss advised 8. Diabetes mellitus type II -patient's oral hypoglycemics held. Placed on long acting insulin, Accu-Cheks a.c. and at bedtime and covered with sliding scale insulin 9. Dyslipidemia ?Patient is on statin therapy, continued at home dose 10. BPH with lower urinary obstructive symptoms - Patient treated with tamsulosin 11. Hypertension ? Blood pressure controlled, home medications to allow for permissive hypertension Wells ruling out acute CVA 12. Peripheral neuropathy ? Patient is on gabapentin 13. Depression with anxiety ? Patient is on escitalopram did continue 14. DVT prophylaxis ? On apixaban 15. Physical deconditioning ? Requested for PT OT eval and outreach and education social worker to assist with discharge planning Time spent in the patient's overall evaluation,decision-making process, review of diagnostic data, adjustment of management, discussion with other providers, nursing nursing and ancillary staff involved in patient's care documentation, 38-minutes Medications at Discharge Home Medications tamsulosin 0.4 mg capsule 0.8 mg PO DAILY prostate 07/08/16 gabapentin 300 mg capsule 300 - 600 mg PO TID PRN PRN nerve pain 03/11/18 isosorbide mononitrate 30 mg tablet,extended release 24 hr 30 mg PO DAILY heart 03/12/18 atorvastatin 40 mg tablet 40 mg PO DAILY cholesterol 04/02/20 losartan 50 mg tablet 100 mg PO DAILY bp 04/02/20 fluticasone propionate 50 mcg/actuation nasal spray,suspension 50 mcg NASAL DAILY Sinus 04/11/20 nitroglycerin 0.4 mg sublingual tablet 0.4 mg SL Q5M PRN Chest Pain 04/11/20 acetaminophen 325 mg tablet (Tylenol) 650 mg (2 x 325 mg) PO Q6H PRN PRN Pain Score 1-10/Temp > 100.7 F #0 tabs 12/07/20 albuterol sulfate 2.5 mg/3 mL (0.083 %) solution for nebulization 2.5 mg (3 mL) inhalation Q4H PRN PRN Shortness of breath, wheezing #0 mL 12/07/20 albuterol sulfate 90 mcg/actuation aerosol inhaler 2 puff inhalation Q6H PRN PRN SOB or Wheezing #0 grams 12/07/20 apixaban 2.5 mg tablet (Eliquis) 2.5 mg PO BID #60 tabs 12/07/20 ferrous sulfate 325 mg (65 mg iron) tablet 325 mg PO DAILY supplement #0 tabs 12/07/20 escitalopram oxalate 20 mg tablet 20 mg PO DAILY 04/03/24 insulin glargine 100 unit/mL (3 mL) subcutaneous pen 45 unit subcut QHS dm 04/03/24 insulin lispro 100 unit/mL subcutaneous solution (Humalog U-100 Insulin) 1 sliding scale dose subcut TID 04/03/24 cefpodoxime 200 mg tablet 200 mg PO BID #20 tabs 04/06/24 Physical Exam Narrative GENERAL: cooperative HEENT: Atraumatic; normocephalic EYES; Anicteric, Normal Conjunctiva NECK; supple, normal thyroid, RESPIRATORY: Diminished to auscultation CARDIOVASCULAR: Regular S1 S2, GI: soft, normoactive bowel sounds, : No Renal angle tenderness; EXTREMITIES: No edema, no clubbing, MUSCULOSKELETAL: no muscle wasting NEURO: Awake; no lateralizing signs. SKIN: No Rash PSYCH; Flat affect Weight / BMI Weight Weight: 145.1 kg Body Mass Index (BMI) 43.4 ABG / Lab / Microbiology Data 04/06/24 05:16 04/06/24 05:16 Laboratory: Laboratory Results - last 24 hr 04/05/24 11:16: POC Glucose 145 H 04/05/24 15:33: POC Glucose 220 H 04/05/24 22:59: POC Glucose 147 H 04/06/24 05:16: WBC 6.7, RBC 4.11 L, Hgb 11.8 L, Hct 37.2 L, MCV 90.5, MCH 28.7, MCHC 31.7 L, RDW Std Deviation 43.7, RDW Coeff of Hilary 13.3, Plt Count 225, MPV 9.6, Immature Gran % (Auto) 0.400, Neut % (Auto) 66.6, Lymph % (Auto) 19.8, [place] % (Auto) 9.6, Eos % (Auto) 3.0, Baso % (Auto) 0.6, Absolute Neuts (auto) 4.4, Absolute Lymphs (auto) 1.32, Nucleated RBC % 0, Sodium 140, Potassium 4.2, Chloride 111 H, Carbon Dioxide 24.0, Anion Gap 4 L, BUN 34 H, Creatinine 1.80 H, Estim Creat Clear Calc 46.00, Est GFR (MDRD) Af Amer 47 L, Est GFR (MDRD) Non-Af 39 L, BUN/Creatinine Ratio 18.9, Glucose 83, Calcium 8.2 L 04/06/24 06:23: POC Glucose 71 L 04/06/24 08:16: POC Glucose 84 Microbiology: Microbiology 04/03/24 17:33 Urine, Clean Catch Urine Culture - Preliminary Proteus mirabilis D/C Instructions Discharge Diet: 1800 Calorie Control Diet and Swallowing Precautions Discharge Activity: Return to Normal Activity Call your doctor if you observe: Fever of 101 or Higher, Shortness of breath, Fainting spells and Chest pain Meaningful Use Info Meaningful Use Meaningful Use Diagnoses (Choose all that apply): None applicable Ischemic Stroke Statin Dosing Therapy Reference: STATIN DOSE THERAPY REFERENCE: * Patients > 75 years receive moderate or high dose statin therapy. * Patients 75 years or YOUNGER should receive HIGH intensity statin dose unless contraindicated. You will be required to document reason for non-treatment if statin daily dose does not meet guidelines. HIGH DOSE STATIN THERAPY DAILY Atorvastatin > than or = to 40 mg Rosuvastatin > than or = to 20 mg Amlodipine + Atorvastatin > than or = to 2.5/40 mg Ezetimibe + Simvastatin 10/80 mg Simvastatin 80mg Discharge Plan Admission Admit Date/Time: 04/03/24 16:56 Attending Provider: Elver Clemens Primary Care Provider: Wili Nelson Consulting Providers: Daniel Auguste; Areli Wright; Lianna Epps; Shara Sosa; Briseyda Philip; Kraig Lauren; Paola López; Power Ray; Mina Burroughs; Dex Ochoa; Yanira Mcdonough; Jim Soriano; Lenora Andrade; Ruth Burrows; Monikasnehal Galdamez; Max Ruiz; Radha Garibay; Gilbert Mcknight; Radha Up; Omar Villaseñor; Veronica Gonzalez Discharge Orders/Prescriptions Prescriptions: New cefpodoxime 200 mg tablet 200 mg PO BID Qty: 20 0RF Rx Instructions: must administer with a meal/food Continued tamsulosin 0.4 MG capsule 0.8 mg PO DAILY Patient Comments: URINATION gabapentin 300 MG capsule 300 - 600 mg PO TID PRN PRN (Reason: nerve pain) isosorbide mononitrate 30 MG tablet 30 mg PO DAILY losartan 50 MG tablet 100 mg PO DAILY atorvastatin 40 mg tablet 40 mg PO DAILY nitroglycerin 0.4 MG tablet, sublingual 0.4 mg SL Q5M PRN (Reason: Chest Pain) fluticasone propionate 1 SPRAY spray,suspension 50 mcg NASAL DAILY acetaminophen [Tylenol] 325 mg Tablet 650 mg PO Q6H PRN PRN (Reason: Pain Score 1-10/Temp > 100.7 F) Qty: 0 0RF albuterol sulfate 2.5 mg /3 mL (0.083 %) Solution For Nebulization 2.5 mg inhalation Q4H PRN PRN (Reason: Shortness of breath, wheezing) Qty: 0 0RF Eliquis 2.5 mg tablet 2.5 mg PO BID Qty: 60 0RF Rx Instructions: Change the Eliquis 5 mg twice daily to 2.5 mg twice daily ferrous sulfate 325 MG tablet 325 mg PO DAILY Qty: 0 0RF albuterol sulfate 1 INHALER inhaler 2 puff INHALATION Q6H PRN PRN (Reason: SOB or Wheezing) Qty: 0 0RF insulin lispro [Humalog U-100 Insulin] 100 unit/mL solution 1 sliding scale dose subcut TID Rx Instructions: 150-199 = 2 units; 200-249=4 UNITS; 250-299 =6 UNITS; >400 call doctor) escitalopram oxalate 20 mg tablet 20 mg PO DAILY insulin glargine 100 UNIT/ML insulin pen 45 unit subcut QHS Rx Instructions: Hold if glucose less than 130 mg/dl Referrals / Follow Up: Wili Nelson DO [Primary Care Provider] - Within 1 Week Disposition Disposition (needs filled in before D/C Order can be placed): Home, Self Care Charges/Coding Visit Charges Inpatient E&M: 68060 Disch Hosp >30min
[2024-04-06] MEDS: Aspirin 81 MG TAB.CHEW PO (09:37)
[2024-04-06] MEDS: APIXABAN 2.5 MG TABLET (WCH) PO (09:37)
[2024-04-06] MEDS: Escitalopram Oxalate 20 MG Tablet PO (09:37)
[2024-04-06] MEDS: Polyethylene Glycol 3350 17 GM PACKET PO (09:45)
[2024-04-06] MEDS: Ceftriaxone 1 GM/50 ML BAG IV (09:45)
--- NOTE | 2024-04-06 10:14 | CASEMGMT ---
Patient has order for discharge. RN CM in to discuss needs at discharge. Ptaent states he is at his baseline, has walker at home. Patient denies needs or help at discharge. Patient aware to follow-up with PCP at discharge. Patient had no further questions or concerns.
[2024-04-06 11:00] VITALS: BP 174/76; PULSE 69; RESP 16; TEMP 36; O2SAT 99
[2024-04-06 11:42] LABS: Bedside Glucose 120 mg/dL (74-106)
[2024-04-06 12:38] VITALS: BP 174/76; PULSE 69; RESP 16; TEMP 36.1; O2SAT 99
== END 2024-04-06 08:58 | disposition home or self-care (01) ==
LOC: ED 17:49 → PCU 18:45
PROVIDERS: Admitting Provider Internal Medicine; Emergency Provider Surgery; PCP Family Medicine; Visit Provider Internal Medicine
DX: R47.1 Dysarthria and anarthria (principal); N18.4 Chronic kidney disease, stage 4 (severe); J44.9 Chronic obstructive pulmonary disease, unspecified; I48.0 Paroxysmal atrial fibrillation; Z68.41 Body mass index [BMI] 40.0-44.9, adult; E66.01 Morbid (severe) obesity due to excess calories; E11.42 Type 2 diabetes mellitus with diabetic polyneuropathy; Z79.4 Long term (current) use of insulin; E11.22 Type 2 diabetes mellitus with diabetic chronic kidney disease; E11.65 Type 2 diabetes mellitus with hyperglycemia; R47.81 Slurred speech; E78.5 Hyperlipidemia, unspecified; R42 Dizziness and giddiness; I25.10 Atherosclerotic heart disease of native coronary artery without angina pectoris; R47.01 Aphasia; I12.9 Hypertensive chronic kidney disease with stage 1 through stage 4 chronic kidney disease, or unspecified chronic kidney disease; Z79.01 Long term (current) use of anticoagulants; Z23 Encounter for immunization; Z79.899 Other long term (current) drug therapy; Z87.891 Personal history of nicotine dependence; N40.1 Benign prostatic hyperplasia with lower urinary tract symptoms; N13.8 Other obstructive and reflux uropathy; N30.00 Acute cystitis without hematuria; F32.A Depression, unspecified; F41.9 Anxiety disorder, unspecified; B96.89 Other specified bacterial agents as the cause of diseases classified elsewhere
CPT/HCPCS: 36415; 70450; 70496; 70498; 70551; 71045; 74230; 80048; 80053; 80061; 81001; 82962; 83735; 83880; 84100; 84443; 84484; 85025; 85610; 85730; 87077; 87086; 87088; 87184; 87186; 90662; 92526; 92610; 92611; 93005; 93306; 94668; 94762; 96361; 96365; 96366; 96375; 97162; 97166; 97535; 99221; 99252; 99285; J7030; Q9957; Q9967; A4216; C8929; G0378; G0463

== ENCOUNTER 2024-07-19 21:29 | Inpatient (IN) | payer MEDICARE, SELFPAY ==
[2024-07-19 21:31] VITALS: BP 102/65; PULSE 82; RESP 20; TEMP 36.1; O2SAT 82; O2SAT 92; O2SAT 97; BMI 36.1
[2024-07-19 21:39] VITALS: BP 102/65; PULSE 78; RESP 17; TEMP 36.1; O2SAT 94; O2SAT 95
--- NOTE | 2024-07-19 21:54 | CT_ITS ---
PROCEDURE: BRAIN/HEAD WITHOUT CONTRAST REASON FOR EXAM: Increased confusion. Pneumonia. Possible aspiration. Hypoxia. TECHNIQUE: IV CONTRAST: Not given. COMPARISON: CT brain dated 04/03/2024 FINDINGS: An area of diminished attenuation in the right temporo-occipital region, not noted on the previous st udy. No intracerebral hemorrhage. No mass effect or midline shift. Stable ventricles with normal variant. Chronic bilateral subdural hygromas. No acute extra-axial collections. Marked cerebral cortical atrophy. Cerebellar atrophy. Paranasal sinuses are unremarkable. Mastoid air cells are unremarkable. Calvarium normal. Soft tissues unremarkable. 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 Cerebral cortical and cerebellar atrophy. Chronic bilateral subdural hygromas. One or more dose reduction techniques were used (e.g., Automated exposure contr ol, adjustment of the mA and/or kV according to patient size, use of iterative reconstruction technique). Reading Location: [facility]
--- NOTE | 2024-07-19 21:54 | EKG12_ITS ---
Test Reason : DYSRHYTHMIA Blood Pressure : */* mmHG Vent. Rate : 138 BPM Atrial Rate : 220 BPM P-R Int : 80 ms QRS Dur : 8 ms QT Int : 216 ms P-R-T Axes : -76 30 -6 degrees QTcB Int : 327 ms Critical Test Result: Arrhythmia Normal sinus rhythm Baseline artifact Low voltage QRS Possible Anterolateral infarct T wave abnormality, consider inferior ischemia Abnormal ECG Confirmed by MICHAEL RAZO, MARCIN ([id number]), editor managing director PAUL BLUM ([id number]) on 07/21/2024 6:41:06 AM Referred By: RIKI Confirmed By: MARCIN RODRIGUEZ MD
[2024-07-19 22:13] LABS: Allen Test Positive; Base Excess 1 mmol/L (-2 to +2); Bicarbonate 25.9 mmol/L (22-26); Blood Gas Specimen Type ART; Mode Not entered; O2 Delivery Device Cannula; PO2 47 mmHG (75-100); SITE R Radial; SO2 81 % (95-99); Total Carbon Dioxide 27 mmol/L; pH 7.37 (7.35-7.45)
[2024-07-19] MEDS: 0.9% Normal Saline (1000mL) 1,000 ML 999 ML IV (22:18)
[2024-07-19 22:30] VITALS: PULSE 66; RESP 22; O2SAT 95
[2024-07-19 22:34] LABS: Absolute Lymphocyte Count 0.94 X10^3/uL (0.83-4.51); Absolute Neutrophil Count 9.2 X10^3/uL (2.0-7.7); Basophil# 0.06 X10^3/uL; Basophil% 0.5 % (0-1); Eosinophil# 0.22 X10^3/uL; Eosinophils% 1.9 % (0-5); Hematocrit 40.8 % (40-54); Hemoglobin 12.6 g/dL (13.0-16.5); Lymphocyte # 0.94 X10^3/ul (0.83-4.51); Lymphocyte % 8.3 % (19-41); Mean Corp Hgb Conc 30.9 g/dL (32-36); Mean Platelet Vol. 10.7 fl (6.2-12.0); Monocyte# 0.83 X10^3/uL; Monocyte% 7.3 % (0-10); NRBC Flagged by Analyzer 0 % (0-5); Neutrophil # 9.22 X10^3/uL (2.7-7.7); Neutrophil % 81.5 % (47-70); Platelet Count 311 K/mm3 (150-450); RBC Distribution Width CV 15.5 % (11.6-14.6); RBC Distribution Width SD 52.8 fl (35.1-43.9); Red Blood Count 4.34 M/mm3 (4.6-6.2); White Blood Count 11.3 K/mm3 (4.4-11.0)
[2024-07-19 22:35] VITALS: BP 87/55; PULSE 67; RESP 25; TEMP 36.1; O2SAT 92
--- NOTE | 2024-07-19 22:44 | EDS_ITS ---
HPI History of Present Illness Chief Complaint: Shortness of Breath Informant: EMS Narrative Narrative: Problems return to care center for altered mental status hypoxia. For recent diagnosis of pneumonia patient on antibiotic recs. He was normal up till today. Increasing confusion. History of COPD paroxysmal A-fib on Eliquis. They reported concerns for possible aspiration. There was no reported vomiting or diarrhea. Unclear of patient's baseline at this time as there is noted vascular dementia history. [facility] Medical History History of CVA (cerebrovascular accident) (03/2020) Right bundle branch block (RBBB) with left anterior fascicular block Atherosclerosis of coronary artery without angina pectoris Fracture of humeral head, left, closed Stage 3b chronic kidney disease GERD (gastroesophageal reflux disease) Neuropathic pain BPH (benign prostatic hyperplasia) Depression Stroke Debility Duodenal ulcer History of pulmonary embolism (07/30/19) Essential (primary) hypertension Hypotension MARLON (acute kidney injury) Acute blood loss anemia Super obesity Noncompliance Family history of colon cancer Colon polyps Chronic renal failure, stage 3 (moderate) NILO (obstructive sleep apnea) HLD (hyperlipidemia) History of other venous thrombosis and embolism History of depression Type II diabetes mellitus, uncontrolled COPD (chronic obstructive pulmonary disease) Home Medications ?Medication ?Instructions ?Recorded ?Last Taken ?Type tamsulosin 0.4 mg capsule 0.8 mg PO DAILY prostate 07/08/16 04/02/24 History gabapentin 300 mg capsule 300 - 600 mg PO TID PRN PRN nerve 03/11/18 07/29/19 21:00 History pain isosorbide mononitrate 30 mg 30 mg PO DAILY heart 03/12/18 04/03/24 History tablet,extended release 24 hr atorvastatin 40 mg tablet 40 mg PO DAILY cholesterol 04/02/20 04/02/24 History losartan 50 mg tablet 100 mg PO DAILY bp 04/02/20 04/03/24 History fluticasone propionate 50 50 mcg NASAL DAILY Sinus 04/11/20 04/01/24 History mcg/actuation nasal spray,suspension nitroglycerin 0.4 mg sublingual 0.4 mg SL Q5M PRN Chest Pain 04/11/20 Unknown History tablet acetaminophen 325 mg tablet 650 mg (2 x 325 mg) PO Q6H PRN PRN 12/07/20 Unknown Rx (Tylenol) Pain Score 1-10/Temp > 100.7 F #0 tabs albuterol sulfate 2.5 mg/3 mL 2.5 mg (3 mL) inhalation Q4H PRN 12/07/20 Unknown Rx (0.083 %) solution for nebulization PRN Shortness of breath, wheezing #0 mL albuterol sulfate 90 mcg/actuation 2 puff inhalation Q6H PRN PRN SOB 12/07/20 04/02/24 Rx aerosol inhaler or Wheezing #0 grams apixaban 2.5 mg tablet (Eliquis) 2.5 mg PO BID #60 tabs 12/07/20 04/03/24 Rx ferrous sulfate 325 mg (65 mg 325 mg PO DAILY supplement #0 tabs 12/07/20 Unknown Rx iron) tablet escitalopram oxalate 20 mg tablet 20 mg PO DAILY 04/03/24 Unknown History insulin glargine 100 unit/mL (3 45 unit subcut QHS dm 04/03/24 04/02/24 History mL) subcutaneous pen insulin lispro 100 unit/mL 1 sliding scale dose subcut TID 04/03/24 04/03/24 History subcutaneous solution (Humalog U-100 Insulin) cefpodoxime 200 mg tablet 200 mg PO BID #20 tabs 04/06/24 Unknown Rx polyethylene glycol 3350 17 17 g PO DAILY #238 grams 04/06/24 Unknown Rx gram/dose oral powder (Miralax) amlodipine 2.5 mg tablet mg DAILY 07/20/24 Unknown History aspirin 81 mg tablet,delayed 81 mg PO DAILY 07/20/24 Unknown History release (Adult Aspirin Regimen) carvedilol 3.125 mg tablet mg 07/20/24 Unknown History cholestyramine (with sugar) 4 gram ea DAILY 07/20/24 Unknown History powder for susp in a packet cholestyramine-aspartame 4 gram ea DAILY 07/20/24 Unknown History oral powder for susp in a packet (Cholestyramine Light) clindamycin HCl 150 mg capsule mg 07/20/24 Unknown History clindamycin HCl 300 mg capsule mg 3XD 07/20/24 Unknown History dapagliflozin propanediol 10 mg mg DAILY 07/20/24 Unknown History tablet (Farxiga) fluticasone 100 mcg-salmeterol 50 inhalation 07/20/24 Unknown History mcg/dose blistr powdr for inhalation furosemide 40 mg tablet mg 07/20/24 Unknown History gabapentin 100 mg capsule mg DAILY 07/20/24 Unknown History hydrocodone-acetaminophen 5-325mg tab 07/20/24 Unknown History 5mg-325mg insulin aspart U-100 100 unit/mL subcut 07/20/24 Unknown History (3 mL) subcutaneous pen (Novolog FlexPen U-100 Insulin aspart) ipratropium 0.5 mg-albuterol 3 mg ml 07/20/24 Unknown History (2.5 mg base)/3 mL nebulization soln losartan 25 mg tablet mg DAILY 07/20/24 Unknown History metoprolol succinate 25 mg mg PO DAILY 07/20/24 Unknown History tablet,extended release 24 hr Allergy/AdvReac Type Severity Reaction Status Date / Time MARGIE Inhibitors Allergy Unknown edema Verified 07/19/24 21:31 cefepime Allergy weakness Verified 07/19/24 21:31 and falling ipodate (Ipodate) Allergy Shortness Verified 07/19/24 21:31 of breath levofloxacin (Levofloxacin) Allergy Anaphylaxis Verified 07/19/24 21:31 lisinopril Allergy Shortness Verified 07/19/24 21:31 of breath ofloxacin Allergy Other Verified 07/19/24 21:31 Quinolones Allergy Anaphylaxis Verified 07/19/24 21:31 Family History Father Colon cancer Mother Cancer Sister CAD (coronary artery disease) Surgical History History of left heart catheterization (07/11/19) History of loop recorder (03/2018) History of esophagogastroduodenoscopy (EGD) Social History Smoking Status: Unknown if ever smoked how long ago did patient quit smoking: cigars, smoked 2 a day, quit in 2007 ROS ROS ED Review of Systems ROS Unobtainable: due to mental status EXAM Physical Exam Const Vital Signs: 07/20/24 04:00 Temperature 97.3 F L Temperature Source Core Pulse Rate 61 Respiratory Rate 20 H Blood Pressure 102/56 L Blood Pressure Mean 71 Pulse Ox 92 Oxygen Delivery Method Airvo Positive well nourished and well developed Constitutional Narrative: Somnolent, 6 L nasal cannula following some commands. General Appearance ED: well developed HEENT Reports dry mucous membranes normocephalic and atraumatic Mouth ED: Yes dry mucous membranes Mouth: dry mucous membranes Eyes General Eye ED: Yes normal appearance of both eyes Neck full ROM Chest Wall Chest: Negative for tenderness Resp Resp Narrative: Diminished breath sounds Effort and Inspection: symmetric chest movement; Negative for respiratory distress Cardio regular rate, regular rhythm and no murmurs Peripheral Pulses: pulses 2+ throughout GI normal to inspection, nondistended, normoactive bowel sounds and non-tender Palpation: Negative for guarding or rebound tenderness present Extremity normal to inspection General Extremety ED: Negative for edema or tenderness General Extremity: Negative for edema Neuro no sensory deficits noted Neuro Narrative: Somnolent. Alert to person, moving all 4 extremities on command. Sepsis Attestation Sepsis Attestation: Sepsis Ruled Out MDM MDM MDM Narrative Medical decision making narrative: Interventions / MDM: Differential diagnosis: Hypoxia, sepsis, dehydration Diagnosis considered but do not suspect: Pulmonary embolism however chronic anticoagulation medication. My EKG interpretation: Sinus rate in the 60s, no ST changes, T wave version leads III. Right bundle branch Block. Artifacts noted needs 3,1 and aVR Imaging independently reviewed and interpreted by myself: 1 view chest x-ray: Per radiology right upper and left lower lung consolidation. CT brain: Right temporal occipital infarct noted new since last imaging. CT chest abdomen pelvis: Bilateral infiltrates noted. Left nephrolithiasis. No hydronephrosis was noted. Pending final read from radiology. 1 view chest x-ray post line placement: Line terminates right superior vena cava. No pneumothorax. External documents reviewed: Echocardiogram March 2024 EF 65%. Test considered but not ordered:N/A ED course: Patient altered notes his name. Sepsis labs were ordered he is on 6 L oxygen. ABG ordered for further evaluation. EKG notes artifacts however sinus rhythm with chronic right bundle branch block. Her respiratory blood gas most likely venous pH 7.36, CO2 is 45. 2250: Per nursing blood pressure dipped down to systolic 87. 30 cc/kg bolus total will be ordered. EF 65% in 2330: Daughter currently present. Reports she was discharged a week ago outside hospital to this facility. Baseline GFR was 30. He was admitted for pneumonia. Prior to his admission was on oxygen only at night since discharge she has been on 2 L of oxygen. I discussed CODE STATUS with the daughter. She states this was discussed with her and her siblings on the last hospitalization. However no DNR form was filled out. They do not want intubation or CPR. They are okay with medical treatment including central line if needed. This will be filled out. This was signed by biological daughter Antoinette Grimes. 2340: Lane catheter there are pretty cloudy urine with particles. This is lik florentin the source. Currently blood pressure low 100s. Multiple allergies. Will cover with Rocephin. Noted cefepime causing weakness, he was placed on cefpodoxime on his last hospitalization with cultures growing Pseudomonas and Proteus Mirabilis. I interpreted 1 view chest x-ray no significant findings noted. Requiring high flow oxygen at this time. Recent pneumonia. With MARLON and UTI. Will obtain noncontrast CT chest abdomen pelvis for further evaluation. 0020: Chest x-ray per radiology bilateral infiltrates. Reviewing the CT images confirm more infiltrative findings which explains his hypoxia. He had right nephrolithiasis with no hydronephrosis that I can see. Urine is positive for infection. In addition CT brain read per radiology temporal-occipital right sided infarct reporting likely acute. No hemorrhage. Lactic acid returned normal at 1.5. 0030: Discussed with daughter findings. Discussed the stroke findings however she reports after he left the hospital this past March he had a massive stroke on the right side. He has some residual left-sided deficits. Therefore this is not likely new. Pressures in the 80s. She would want aggressive medical management and he is 3 L again. Consent for central line. Risks and benefits discussed. Will move forward. 0050: Central line placement. Written consent from daughter. Risks and benefits discussed. Ultrasound identification of right internal jugular vessels were noted. Patient is ayers was trimmed the access skin. Normal sterile conditions with full drape performed. Ultrasound identification of the internal jugular vein, Seldinger technique with needle after local lidocaine. Dark blood return in needle, guidewire was advanced. No resistance. Straight incision of the skin performed, dilation performed, triple-lumen catheter was placed 15 cm and secured. Biopatch was placed. Dressing was placed. Noted slight dark blood coming out from the skin. Patient tolerated procedure well. Post chest x-ray films ordered. 0128: No pneumothorax on chest x-ray. Line terminates right at the superior vena cava. Awaiting final read from CT chest abdomen pelvis at this time. Will require hospitalization to ICU. Pressors if becomes hypotensive again. Re-evaluation: stable Disposition discussed with patient/family/significant other: Daughter Case discussed with consulting clinician: Hospitalist This note was generated with [employer] dictation software. It may contain incorrect words, spelling, and punctuation that were not noted in checking the note before signing. Lab Data Attestation: I reviewed the patient's lab results. Labs: Laboratory Results - last 24 hr 07/19/24 23:49 Urine Opiates Screen NEGATIVE Urine Methadone Screen NEGATIVE Ur Barbiturates Screen NEGATIVE Ur Phencyclidine Scrn NEGATIVE Ur Amphetamines Screen NEGATIVE MDMA (Ecstasy) Screen NEGATIVE U Benzodiazepines Scrn NEGATIVE Urine Cocaine Screen NEGATIVE U Cannabinoids Screen NEGATIVE Ur Drug Screen Comment ABG Data ABG results: ABG 07/19/24 22:10 Specimen Type ART Sample Site R Radial pH 7.37 Bicarbonate Actual 25.9 Total CO2 27 Base Excess 1 O2 Saturation 81 L O2 % 6.0 ABG pCO2 45.0 ABG pO2 47 L Randy Test Positive O2 Delivery Device Cannula Vent Mode Not entered Radiography Diagnostic Testing: Clinical Impression(s) from Imaging Studies Brain CT 07/19/24 21:54 IMPRESSION: Nonhemorrhagic right temporo-occipital infarction most likely acute. Cerebral cortical and cerebellar atrophy. Chronic bilateral subdural hygromas. One or more dose reduction techniques were used (e.g., Automated exposure control, adjustment of the mA and/or kV according to patient size, use of iterative reconstruction technique). Reading Location: [facility] Chest X-Ray 07/19/24 22:49 IMPRESSION: Bilateral lung infiltrates. Mild cardiac enlargement. Reading Location: [facility] Chest X-Ray 07/20/24 01:18 IMPRESSION: Stable cardiac enlargement. Bilateral lung infiltrates. Tip of a right central venous catheter in good position. Reading Location: [facility] Critical Care Time Critical care time (excluding procedures): Discussing w/Consultants, Arranging Admission or Transfer, Performing Direct Patient Care at Bedside and - (40 minutes) Discharge Plan Dx/Rx/DC Orders Clinical Impression: CVA (cerebral vascular accident), Pneumonia, Acute UTI, MARLON (acute kidney injury), Hypoxia, Vascular dementia, Dehydration, Hypotension, DNR (do not resuscitate) Disposition Disposition: Acute [facility] Discharge Date/Time: 07/20/24 05:49
[2024-07-19 22:48] LABS: International Normalized Ratio 1.8; Prothrombin Time (Protime)PT. 21.4 SECONDS (11.7-14.9)
[2024-07-19 22:49] LABS: Partial Thromboplast Time 41.9 Seconds (24.1-36.2)
--- NOTE | 2024-07-19 22:49 | RAD_ITS ---
PROCEDURE: CHEST 1 VIEW (PORTABLE) REASON FOR EXAM: Probable aspiration. Emesis found in patients ayers. TECHNIQUE: Single frontal image including the chest and upper abdomen. COMPARISON: AP upright portable chest dated 04/03/2024. FINDINGS: Mild cardiac enlargement. No mediastinal widening. Aorta atherosclerotic and tortuous. Areas of consolidation in the right upper lobe and left lower lo be. No pleural effusions. Multilevel spondylosis. Soft tissues unremarkable RAD/Chest 1 View (Portable) IMPRESSION: Bilateral lung infiltrates. Mild cardiac enlargement. Reading Location: [facility]
[2024-07-19 22:53] LABS: ALB/GLOB Ratio 0.4 RATIO (0.9-2.4); AST(SGOT) 24 U/L (15-37); Alanine Aminotransfer ALT/SGPT 15 U/L (16-61); Albumin, Serum 2.5 g/dL (3.2-5.0); Alkaline Phosphatase 118 U/L (45-117); Anion Gap 9 (5-15); BUN 68 mg/dL (7-18); BUN/Creat Ratio 14.6 RATIO (10-20); Calcium,Total 10.1 mg/dL (8.5-10.1); Chloride 114 mmol/L (98-107); Creatinine, Serum 4.66 mg/dL (0.70-1.30); EST Glomerular Filtration Rate 13 mL/min (>60); Est Glom Filt Rate - Afr Amer 16 mL/min (>60); Estimated Creatinine Clearance 16.12 ml/min; Globulin 6.3 g/dL (2.2-4.2); Glucose 139 mg/dL (74-106); Lactic Acid 1.5 mmol/L (0.4-1.9); Potassium 4.6 mmol/L (3.5-5.1); Protein, Total 8.8 g/dL (6.4-8.2); Sodium Level 149 mmol/L (136-145)
[2024-07-19 23:00] VITALS: BP 84/58; PULSE 61; RESP 23; TEMP 36.1; O2SAT 98
[2024-07-19] MEDS: NORMAL SALINE IV (23:20)
[2024-07-19] MEDS: VIAFLEX IV (23:20)
[2024-07-19 23:58] LABS: Mucous, Urine 0 SEEN /hpf (<or=2+); Squamous Epithelial Cells - UA 0 SEEN /hpf (0-5)
[2024-07-20] VITALS (54 sets, daily range): BP systolic 74–137; BP diastolic 43–88; PULSE 48–85; RESP 13–22; TEMP 36.2–36.9; O2SAT 91–100; BMI 35.4
[2024-07-20 00:01] LABS: Color, Urine Yellow (Yellow); Glucose, Dipstick 100 mg/dl (Normal); Ketone-Dipstick Negative (Negative); Leukocyte Esterase-Dipstick 500 /ul (Negative); Nitrite-Dipstick Negative (Negative); Occult Blood-Urine 50 /ul (Negative); Protein-Dipstick 100 mg/dl (Negative); Specific Gravity, Urine 1.015 (1.002-1.030); Urine Bilirubin Dipstick Negative (Negative); Urine Clarity Cloudy (Clear); Urine Urobilinogen Normal (Normal)
[2024-07-20 00:13] LABS: Red Blood Cells-Urine 5-10 SEEN /hpf (0-5); White Blood Cells 50-100 SEEN /hpf (0-5)
[2024-07-20 00:14] LABS: Bacteria 1+ /hpf (None Seen)
[2024-07-20] MEDS: Ceftriaxone 2 GM in 0.9% Normal Saline (50mL MB+) 50 ML IV (00:14)
--- NOTE | 2024-07-20 01:18 | RAD_ITS ---
PROCEDURE: AP SEMI-UPRIGHT PORTABLE CHEST REASON FOR EXAM: Check for line placement TECHNIQUE: Semi upright, 1 view. COMPARISON: 07/19/2024 portable chest. FINDINGS: Bilateral lower lobe infiltrates. Stable cardiac enlargement. Cardiac loop recorder projects over the left lung base. Tip of a right central venous catheter projects over the superior vena cava. Cardiac monitoring leads overlie the chest wall. Multilevel spondylosis. RAD/CXR for Line Placement IMPRESSION: Stable cardiac enlargement. Bilateral lung infiltrates. Tip of a right central venous catheter in good position. Reading Location: [facility]
[2024-07-20] MEDS: Azithromycin 500 MG in 0.9% Normal Saline (250mL Bag) 250 ML 255 MG IV (01:28)
--- NOTE | 2024-07-20 03:08 | PCM.HP.STD ---
[facility] - General General Date of Admission: 07/20/24 Date of Service: 07/20/24 Chief Complaint: SOB and AMS. HPI Narrative WADE HERNANDEZ, is a 83 M with a past medical history of essential hypertension; on losartan, metoprolol and furosemide, hyperlipidemia; on atorvastatin, obesity; with BMI of 36.1 this admission, NILO; on BiPAP, DM-2; on dapagliflozin, insulin lispro 3 times daily and insulin glargine 45 units SQ at bedtime, diabetic neuropathy; on gabapentin, history of CAD; with normal echocardiogram showing LVEF ~65% with no evidence of diastolic dysfunction (03/2024), history of Left pontine CVA (2019), history of vascular dementia, history of tobacco abuse (quit 2007); with subsequent COPD, CKD; stage IV with baseline creatinine ~2 mg/dL, chronic iron deficiency anemia; on ferrous sulfate, BPH; on tamsulosin, PAF; on apixaban, history of RBBB and LAFB, history of pulmonary embolism (2019), depression with anxiety; on escitalopram, history of GERD and duodenal ulcer; currently not on treatment, history of medical noncompliance, OA; with chronic debility, history of relatively recent admission here from April 03, 2024 to April 06, 2024 for treatment of suspected CVA; with dysarthria with subsequent negative MRI and acute cystitis with cultures positive for Proteus mirabilis sensitive to ceftriaxone and recently diagnosed Right temporo-occipital CVA treated at [facility] who presents to [facility] ER complaining of shortness of breath and altered mental status. Mr. Hernandez is not a fully-reliable historian at this time so information was primarily gathered from chart, medical staff, computer and his daughter who was present at the bedside who helped to augment the history. According to the records staff at his F noted increasing shortness of breath and altered mental status. He had recently been diagnosed with pneumonia and started on oral cefpodoxime and had been normal up until that time. The staff was concerned for possible aspiration but there was no report of nausea or vomiting. In the ER he was noted to have CT evidence of Diffuse Bilateral Pneumonia with centrilobular emphysematous changes and a lipoma on the Right lateral chest wall with a Right thyroid gland nodule along with ascending aortic aneurysm measuring ~4.5 cm complicated by clinical evidence of Acute Hypoxic Respiratory Failure requiring Airvo with laboratory evidence of Acute Cystitis; with microscopic hematuria with a corresponding Leukocytosis of 11.3K present on admission with severe hypotension of ~80 mmHg systolic present on admission requiring emergent Right CVC placement due to suspected Sepsis with Septic Shock compounded by MARLON; in the setting of CKD; stage IV with elevated serum creatinine of 4.66 mg/dL and BUN of 68 mg/dL present on admission (up from his baseline of 1.8 mg/dL and BUN of 34 mg/dL last admission) in addition to head CT suspicious for nonhemorrhagic Right temporal-occipital infarction most likely acute -but comparison to previous CT shows lesion is chronic from recent CVA treated in [facility] with additional clinical evidence of Acute Hypoxic and Septic Encephalopathy in the setting of Chronic Vascular Dementia with patient's daughter reporting he is a DNR-CCA; without intubation and he was then admitted to the ICU for ongoing treatment for stay that is expected to extend beyond 2 midnights. [facility] Medical History History of CVA (cerebrovascular accident) (03/2020) Right bundle branch block (RBBB) with left anterior fascicular block Atherosclerosis of coronary artery without angina pectoris Fracture of humeral head, left, closed Stage 3b chronic kidney disease GERD (gastroesophageal reflux disease) Neuropathic pain BPH (benign prostatic hyperplasia) Depression Stroke Debility Duodenal ulcer History of pulmonary embolism (07/30/19) Essential (primary) hypertension Hypotension MARLON (acute kidney injury) Acute blood loss anemia Super obesity Noncompliance Family history of colon cancer Colon polyps Chronic renal failure, stage 3 (moderate) NILO (obstructive sleep apnea) HLD (hyperlipidemia) History of other venous thrombosis and embolism History of depression Type II diabetes mellitus, uncontrolled COPD (chronic obstructive pulmonary disease) Home Medications ?Medication ?Instructions ?Recorded ?Last Taken ?Type tamsulosin 0.4 mg capsule 0.8 mg PO DAILY prostate 07/08/16 04/02/24 History gabapentin 300 mg capsule 300 - 600 mg PO TID PRN PRN nerve 03/11/18 07/29/19 21:00 History pain isosorbide mononitrate 30 mg 30 mg PO DAILY heart 03/12/18 04/03/24 History tablet,extended release 24 hr atorvastatin 40 mg tablet 40 mg PO DAILY cholesterol 04/02/20 04/02/24 History losartan 50 mg tablet 100 mg PO DAILY bp 04/02/20 04/03/24 History fluticasone propionate 50 50 mcg NASAL DAILY Sinus 04/11/20 04/01/24 History mcg/actuation nasal spray,suspension nitroglycerin 0.4 mg sublingual 0.4 mg SL Q5M PRN Chest Pain 04/11/20 Unknown History tablet acetaminophen 325 mg tablet 650 mg (2 x 325 mg) PO Q6H PRN PRN 12/07/20 Unknown Rx (Tylenol) Pain Score 1-10/Temp > 100.7 F #0 tabs albuterol sulfate 2.5 mg/3 mL 2.5 mg (3 mL) inhalation Q4H PRN 12/07/20 Unknown Rx (0.083 %) solution for nebulization PRN Shortness of breath, wheezing #0 mL albuterol sulfate 90 mcg/actuation 2 puff inhalation Q6H PRN PRN SOB 12/07/20 04/02/24 Rx aerosol inhaler or Wheezing #0 grams apixaban 2.5 mg tablet (Eliquis) 2.5 mg PO BID #60 tabs 12/07/20 04/03/24 Rx ferrous sulfate 325 mg (65 mg 325 mg PO DAILY supplement #0 tabs 12/07/20 Unknown Rx iron) tablet escitalopram oxalate 20 mg tablet 20 mg PO DAILY 04/03/24 Unknown History insulin glargine 100 unit/mL (3 45 unit subcut QHS dm 04/03/24 04/02/24 History mL) subcutaneous pen insulin lispro 100 unit/mL 1 sliding scale dose subcut TID 04/03/24 04/03/24 History subcutaneous solution (Humalog U-100 Insulin) cefpodoxime 200 mg tablet 200 mg PO BID #20 tabs 04/06/24 Unknown Rx polyethylene glycol 3350 17 17 g PO DAILY #238 grams 04/06/24 Unknown Rx gram/dose oral powder (Miralax) amlodipine 2.5 mg tablet mg DAILY 07/20/24 Unknown History aspirin 81 mg tablet,delayed 81 mg PO DAILY 07/20/24 Unknown History release (Adult Aspirin Regimen) carvedilol 3.125 mg tablet mg 07/20/24 Unknown History cholestyramine (with sugar) 4 gram ea DAILY 07/20/24 Unknown History powder for susp in a packet cholestyramine-aspartame 4 gram ea DAILY 07/20/24 Unknown History oral powder for susp in a packet (Cholestyramine Light) clindamycin HCl 150 mg capsule mg 07/20/24 Unknown History clindamycin HCl 300 mg capsule mg 3XD 07/20/24 Unknown History dapagliflozin propanediol 10 mg mg DAILY 07/20/24 Unknown History tablet (Farxiga) fluticasone 100 mcg-salmeterol 50 inhalation 07/20/24 Unknown History mcg/dose blistr powdr for inhalation furosemide 40 mg tablet mg 07/20/24 Unknown History gabapentin 100 mg capsule mg DAILY 07/20/24 Unknown History hydrocodone-acetaminophen 5-325mg tab 07/20/24 Unknown History 5mg-325mg insulin aspart U-100 100 unit/mL subcut 07/20/24 Unknown History (3 mL) subcutaneous pen (Novolog FlexPen U-100 Insulin aspart) ipratropium 0.5 mg-albuterol 3 mg ml 07/20/24 Unknown History (2.5 mg base)/3 mL nebulization soln losartan 25 mg tablet mg DAILY 07/20/24 Unknown History metoprolol succinate 25 mg mg PO DAILY 07/20/24 Unknown History tablet,extended release 24 hr Allergy/AdvReac Type Severity Reaction Status Date / Time MARGIE Inhibitors Allergy Unknown edema Verified 07/19/24 21:31 cefepime Allergy weakness Verified 07/19/24 21:31 and falling ipodate (Ipodate) Allergy Shortness Verified 07/19/24 21:31 of breath levofloxacin (Levofloxacin) Allergy Anaphylaxis Verified 07/19/24 21:31 lisinopril Allergy Shortness Verified 07/19/24 21:31 of breath ofloxacin Allergy Other Verified 07/19/24 21:31 Quinolones Allergy Anaphylaxis Verified 07/19/24 21:31 Family History Father Colon cancer Mother Cancer Sister CAD (coronary artery disease) Surgical History History of left heart catheterization (07/11/19) History of loop recorder (03/2018) History of esophagogastroduodenoscopy (EGD) Social History Smoking Status: Unknown if ever smoked how long ago did patient quit smoking: cigars, smoked 2 a day, quit in 2008 ROS ROS Narrative Review of systems was not possible due to patient's altered mental status. Vital Signs Vital Signs Vital Signs: 07/19/24 21:31 07/19/24 21:31 07/19/24 21:39 Temperature 97 F L 97 F L Temperature Source Axillary Axillary Pulse Rate 82 78 Respiratory Rate 20 H 17 Respiratory Effort Respiratory Depth Respiratory Pattern Blood Pressure 102/65 102/65 Blood Pressure Mean 77 77 Pulse Ox 82 92 94 Oxygen Delivery Method Room Air Nasal Cannula Nasal Cannula Oxygen Flow Rate (L/min) 6 6 Fraction of Inspired Oxygen (FIO2) 07/19/24 21:39 07/19/24 22:14 07/19/24 22:30 Temperature Temperature Source Pulse Rate 66 Respiratory Rate 22 H Respiratory Effort Short of Breath Respiratory Depth Normal Respiratory Pattern Normal Tachypnea Blood Pressure Blood Pressure Mean Pulse Ox 95 Oxygen Delivery Method Nasal Cannula Nasal Cannula Oxygen Flow Rate (L/min) 6 6 Fraction of Inspired Oxygen (FIO2) 60 07/19/24 22:35 07/19/24 23:00 07/20/24 00:00 Temperature 97.0 F L 97.0 F L 97.6 F L Temperature Source Axillary Axillary Core Pulse Rate 67 61 58 L Respiratory Rate 25 H 23 H 18 Respiratory Effort Respiratory Depth Respiratory Pattern Blood Pressure 87/55 L 84/58 L 77/49 L Blood Pressure Mean 65 66 58 Pulse Ox 92 98 95 Oxygen Delivery Method Airvo Airvo Airvo Oxygen Flow Rate (L/min) Fraction of Inspired Oxygen (FIO2) 07/20/24 00:15 07/20/24 00:48 07/20/24 01:00 Temperature 98.0 F 97.2 F L Temperature Source Core Core Pulse Rate 58 L 58 L 58 L Respiratory Rate 16 20 H 16 Respiratory Effort Respiratory Depth Respiratory Pattern Normal Blood Pressure 89/52 L 94/53 L Blood Pressure Mean 64 66 Pulse Ox 99 98 98 Oxygen Delivery Method Airvo Airvo Oxygen Flow Rate (L/min) Fraction of Inspired Oxygen (FIO2) 50 07/20/24 02:00 07/20/24 03:00 Temperature 97.1 F L 97.1 F L Temperature Source Core Core Pulse Rate 48 L 63 Respiratory Rate 22 H 16 Respiratory Effort Respiratory Depth Respiratory Pattern Blood Pressure 102/55 L 107/59 L Blood Pressure Mean 70 75 Pulse Ox 91 99 Oxygen Delivery Method Airvo Airvo Oxygen Flow Rate (L/min) Fraction of Inspired Oxygen (FIO2) Weight Weight: 266 lb 5.094 oz Body Mass Index (BMI) 36.1 Physical Exam Const alert and no apparent distress Constitutional Narrative: Patient is lethargic and confused on BiPAP with chronically ill appearance. Orientation / Consciousness: confused and lethargic HEENT normocephalic, head/scalp atraumatic and hearing grossly normal bilaterally HEENT Narrative: Mucous membranes dry. Eyes PERRL and EOMs intact bilaterally Neck no lymphadenopathy and supple Resp Resp Narrative: Diminished breath sounds throughout with expiratory wheezes. Cardio regular rate and regular rhythm GI normal to inspection, nondistended, normoactive bowel sounds, soft to palpation, non-tender and non-distended GI Narrative: Obese. Extremity normal to inspection Skin Skin Narrative: Patient has scattered bruising over both upper extremities with chronically dry skin. Neuro CN's II-XII intact bilaterally, moves all extremities and no focal motor deficits Sensorium / Orientation: awake, alert and oriented to person Speech: speech normal Psych affect normal Results Medical Records Data Attestation: I reviewed the patient's medical records Lab / Micro Data Attestation: I reviewed the patient's lab results. 07/19/24 22:14 07/19/24 22:14 Labs: Laboratory Results - last 24 hr 07/19/24 22:14: WBC 11.3 H, RBC 4.34 L, Hgb 12.6 L, Hct 40.8, MCV 94.0, MCH 29.0, MCHC 30.9 L, RDW Std Deviation 52.8 H, RDW Coeff of Hilary 15.5 H, Plt Count 311, MPV 10.7, Immature Gran % (Auto) 0.500, Neut % (Auto) 81.5 H, Lymph % (Auto) 8.3 L, [place] % (Auto) 7.3, Eos % (Auto) 1.9, Baso % (Auto) 0.5, Absolute Neuts (auto) 9.2 H, Absolute Lymphs (auto) 0.94, Nucleated RBC % 0, PT 21.4 H, INR 1.8, APTT 41.9 H, Sodium 149 H, Potassium 4.6, Chloride 114 H, Carbon Dioxide 26.0, Anion Gap 9, BUN 68 H, Creatinine 4.66 H, Estim Creat Clear Calc 16.12, Est GFR (MDRD) Af Amer 16 L, Est GFR (MDRD) Non-Af 13 L, BUN/Creatinine Ratio 14.6, Glucose 139 H, Lactic Acid 1.5, Calcium 10.1, Total Bilirubin 0.80, AST 24, ALT 15 L, Alkaline Phosphatase 118 H, Total Protein 8.8 H, Albumin 2.5 L, Globulin 6.3 H, Albumin/Globulin Ratio 0.4 L 07/19/24 23:49: Urine Color Yellow, Urine Clarity Cloudy, Urine pH 6.0, Ur Specific Bennett 1.015, Urine Protein 100 H, Urine Glucose (UA) 100 H, Urine Ketones Negative, Urine Occult Blood 50 H, Urine Nitrite Negative, Urine Bilirubin Negative, Urine Urobilinogen Normal, Ur Leukocyte Esterase 500 H, Urine RBC 5-10 SEEN, Urine WBC 50-100 SEEN, Ur Squamous Epith Cells 0 SEEN, Urine Bacteria 1+, Urine Mucus 0 SEEN Micro: Microbiology 07/19/24 23:52 Mucosa - Nose SARS-CoV-2, Influenza & RSV (PCR) - Final ABG Data ABG results: ABG 07/19/24 22:10 Specimen Type ART Sample Site R Radial pH 7.37 Bicarbonate Actual 25.9 Total CO2 27 Base Excess 1 O2 Saturation 81 L O2 % 6.0 ABG pCO2 45.0 ABG pO2 47 L Randy Test Positive O2 Delivery Device Cannula Vent Mode Not entered Imaging Radiology Impression Brain CT 07/19/24 21:54 IMPRESSION: Nonhemorrhagic right temporo-occipital infarction most likely acute. Cerebral cortical and cerebellar atrophy. Chronic bilateral subdural hygromas. One or more dose reduction techniques were used (e.g., Automated exposure control, adjustment of the mA and/or kV according to patient size, use of iterative reconstruction technique). [facility] Chest X-Ray 07/19/24 22:49 IMPRESSION: Bilateral lung infiltrates. Mild cardiac enlargement. Reading Location: [facility] Chest X-Ray 07/20/24 01:18 IMPRESSION: Stable cardiac enlargement. Bilateral lung infiltrates. Tip of a right central venous catheter in good position. Reading Location: [facility] Chest/Abdomen/Pelvis CT 07/20/24 23:45 IMPRESSION: Diffuse bilateral lung pneumonias. Centrilobular emphysematous changes. Lipoma along the right lateral chest wall. Right thyroid gland nodule. Consider ultrasound for further evaluation if indicated. Ascending aorta aneurysm. Pulmonary artery diameter increase raising concern for pulmonary arterial hypertension. Coronary artery calcifications. Suspicion of hairline fractures, manubrium and body of the sternum. Ill-defined nodule in the left hepatic lobe, cyst or hemangioma should be considered. Cholelithiasis. Left adrenal gland nodule most likely adenoma. Bilateral renal cysts. Nonobstructing right nephrolithiasis. Chronic prostatitis. Bilateral fat containing inguinal hernias. One or more dose reduction techniques were used (e.g., Automated exposure control, adjustment of the mA and/or kV according to patient size, use of iterative reconstruction technique). Reading Location: [facility] Assessment & Plan Assessment/Plan (1) Pneumonia: QUALIFIERS: Laterality: bilateral Lung location: unspecified part of lung Pneumonia type: due to unspecified organism Qualified Code(s): J18.9 - Pneumonia, unspecified organism (2) Sepsis with encephalopathy and septic shock: QUALIFIERS: Sepsis type: sepsis due to unspecified organism Qualified Code(s): A41.9 - Sepsis, unspecified organism; R65.21 - Severe sepsis with septic shock; G93.41 - Metabolic encephalopathy (3) COPD with acute exacerbation: (4) Acute hypoxic respiratory failure: (5) Acute cystitis with hematuria: (6) MARLON (acute kidney injury): (7) Hypernatremia: (8) CKD (chronic kidney disease) stage 4, GFR 15-29 ml/min: (9) Vascular dementia: QUALIFIERS: Dementia behavioral or psychological symptom: unspecified whether behavioral, psychotic, or mood disturbance or anxiety Dementia severity: unspecified severity Qualified Code(s): F01.50 - Vascular dementia, unspecified severity, without behavioral disturbance, psychotic disturbance, mood disturbance, and anxiety (10) Obesity (BMI 30-39.9): (11) NILO treated with BiPAP: (12) History of CVA (cerebrovascular accident): (13) Adverse drug reaction: QUALIFIERS: Encounter type: initial encounter Qualified Code(s): T50.905A - Adverse effect of unspecified drugs, medicaments and biological substances, initial encounter PLAN: Plan 1. CT evidence of Diffuse Bilateral Pneumonia with centrilobular emphysematous changes and a lipoma on the Right lateral chest wall with a Right thyroid gland nodule along with ascending aortic aneurysm measuring ~4.5 cm with clinical evidence of Sepsis with Septic Shock with severe hypotension of ~80 mmHg systolic present on admission requiring emergent Right CVC placement in ER in patient with DNR-CCA CODE STATUS; without intubation as per patient's daughter - Admit to ICU for treatment under the sepsis protocol. Stop IV ceftriaxone and IV azithromycin in this chronically ill patient that has been recently hospitalized with possible nosocomial origin. Start IV Azactam and IV Zyvox for broad-coverage of potential MDR organisms with listed allergies to quinolones (anaphylaxis) and cefepime (weakness and falling). Vancomycin was avoided due to potentially exacerbating MARLON outlined in #4. Initial lactate was normal at 1.5 mmol/L with second lactate dropping to 1.2 mmol/L after initial round of treatment. Await culture and sensitivity data to narrow antibiotic spectrum. Check urinary antigens to Streptococcus pneumonia and Legionella. Give acetaminophen as needed for pain or fever. 2. AE COPD with Acute Hypoxic Respiratory Failure requiring Airvo due to #1 - Wean Airvo as tolerated. Give IV Solu-Medrol plus scheduled and as needed nebulizers. 3. Acute Cystitis; with microscopic hematuria with a corresponding Leukocytosis of 11.3K present on admission due to suspected Sepsis complicating #1 & #2 - Gram-negatives should be covered with IV Azactam. Await culture and sensitivity data. Patient's blood pressure was initially improved after sepsis fluid bolus but he did eventually require pressor support with Levophed to keep MAP greater than 65 mmHg. 4. MARLON; in the setting of CKD; stage IV with elevated serum creatinine of 4.66 mg/dL and BUN of 68 mg/dL present on admission (up from his baseline of 1.8 mg/dL and BUN of 34 mg/dL last admission) with mild Hypernatremia of 149 mmol/L present on admission compounding #1 - #3 - Patient aggressively volume resuscitated in ER via Sepsis protocol. Recheck renal indices daily to follow trend of hopeful improvement. Place Lane and follow strict I's and O's. We will avoid potentially nephrotoxic medications. 5. Acute Hypoxic and Septic Encephalopathy in the setting of Chronic Vascular Dementia and recently diagnosed Right temporo-occipital CVA treated at [facility] attributable to #1 - #4 - Continue supportive care as outlined above and monitor for improvement. We will minimize WELL PULLER HEAD-active medications in an effort to allow sensorium to clear. Check TSH, B12, folate, LISETTE and UDS to evaluate for other potential reversible causes of confusion. 6. Obesity; with BMI of 36.1 this admission and NILO; on BiPAP adding to the medical complexity of #1 - #5 - Weight loss will be recommended when patient's sensorium clears. Continue Airvo for now but eventually transition to nocturnal BiPAP as patient hopefully improves. This complicates his case and may hamper recovery. 7. History of relatively recent admission here from April 03, 2024 to April 06, 2024 for treatment of suspected CVA; with dysarthria with subsequent negative MRI and acute cystitis with cultures positive for Proteus mirabilis sensitive to ceftriaxone - Noted. 8. Essential Hypertension; on losartan, metoprolol and furosemide with suspected Adverse Drug Reaction to loop diuretic and ARB significantly contributing to #4 - Hold scheduled antihypertensives until further notice with severe hypotension noted on admission. 9. PAF; on apixaban - Continue renally-dosed apixaban 2.5 mg p.o. twice daily as previous. 10. DM-2; on dapagliflozin, insulin lispro 3 times daily and insulin glargine 45 units SQ at bedtime - Keep NPO for now until condition improves. FSBS q. 6 hours plus lowest intensity SSI. Check HgbA1c to objectively assess quality of diabetic control. 11. Hyperlipidemia; on atorvastatin - Resume statin and check Lipid Profile. 12. Diabetic neuropathy; on gabapentin - Maintain current regimen. 13. History of CAD; with normal echocardiogram showing LVEF ~65% with no evidence of diastolic dysfunction (03/2024) - Stable. 14. History of Left pontine CVA (2019) - Noted. 15. Chronic iron deficiency anemia; on ferrous sulfate - Stable with hemoglobin of 12.6 g/dL and MCV of 94 fL present on admission. 16. BPH; on tamsulosin - Continue tamsulosin as previous. 17. History of RBBB and LAFB - Noted. 18. History of pulmonary embolism (2020) - Noted with patient on chronic apixaban for #9. 19. Depression with Anxiety; on escitalopram - Restart escitalopram after patient finishes course of Zyvox. 20. History of GERD and duodenal ulcer; currently not on treatment - Start pantoprazole IV for GI prophylaxis. 21. History of medical noncompliance - Noted. 22. OA; with chronic debility - Noted. Give acetaminophen prn. PT/OT and Case Management to consult and treat on-rounds in the AM with help appreciated in advance. 23. DVT/GI prophylaxis - Patient already on apixaban for #9 and he was started on IV pantoprazole for #20. Total time: Approximately (but not less than) 75 minutes. Sepsis Attestation Sepsis Alert: Yes Sepsis Attestation: Agree w/Sepsis Date exam was performed: 07/20/24 Time exam was performed: 04:00 Possible Source of Sepsis: Pulmonary and Genitourinary Sepsis Organ Dysfunction Criteria Present: SBP < 90 mmHg or MAP < 65 mmHg, Acute Respiratory Failure (New need for BiPAP/CPAP or MV), Creatinine > 2.0 mg/dL and New/Unexplained change in mental status Fluid Resuscitation Fluid resuscitation indicated?: Yes Fluid Resuscitation ordered: 30 ml/kg fluid bolus ordered Amount of fluid ordered: 5 Sepsis Note Date exam was performed: 07/20/24 Time exam was performed: 06:27 Sepsis Attestation: Sepsis re-evaluation was performed Response to fluids: Non Fluid responsive hypotension and Vasopressors started Charges/Coding Visit Charges Inpatient E&M: [id number] Init Hosp L3
[2024-07-20] MEDS: fentaNYL 100 MCG/2 ML Ampul 25 MCG IV (03:52)
[2024-07-20] MEDS: Ondansetron 4 MG/2 ML Vial IV (03:53)
[2024-07-20 06:10] LABS: Alcohol, Blood (Medical)-Serum < 3.0 mg/dL
[2024-07-20 06:15] LABS: Lactic Acid 1.2 mmol/L (0.4-1.9)
[2024-07-20] MEDS: 0.9% Normal Saline (1000mL) 1,000 ML 100 ML IV (06:15)
[2024-07-20 06:22] LABS: Cholesterol 69 mg/dL (200); High Density Lipoprotein 22 mg/dL; Thyroid Stim Hormone (TSH) 0.352 uIU/mL (0.358-3.740); Triglycerides 94 mg/dL; Very Low Density Lipoprotein 19 mg/dL (5-40)
[2024-07-20] MEDS: Pantoprazole Sodium 40 MG in 0.9% Normal Saline (100mL MB+) 100 ML 330 MG IV (06:30)
[2024-07-20] MEDS: MethylPREDNISolone 125 MG/2 ML Vial IV (06:30)
[2024-07-20] MEDS: Norepinephrine 8 MG in 0.9% Normal Saline (250mL Bag) 242 ML 9.4 MG CONT INF (06:45)
--- NOTE | 2024-07-20 07:44 | EX.PCM.CONCC ---
Assessment & Plan Assessment/Plan (1) Septic shock: PLAN: Plan RECOMMENDATIONS: 1. Transition antibiotics to meropenem and vancomycin as ordered. 2. Continue PAP therapy as ordered. 3. Continue Levophed to maintain a mean arterial pressure at or above 65 mmHg. 4. Continue bronchodilators and IV steroids. 5. Maintain n.p.o. status, pending improvement in mental and respiratory status. 6. Eliquis for prophylaxis. IMPRESSIONS: 1. Septic shock The patient presented to the hospital with sepsis due to suspected pneumonia +/- UTI with evidence of sepsis related organ dysfunction as evidenced by acute respiratory failure requiring noninvasive positive pressure ventilatory support, acute kidney injury, fluid refractory hypotension requiring vasopressor support and altered mental status. The patient did ultimately receive IV fluids, but inevitably required vasopressor initiation to maintain hemodynamic stability. Plan to continue Levophed as tolerated. The patient has been initiated on appropriate broad-spectrum antimicrobial therapy, pending infectious workup. 2. Acute hypoxemic respiratory failure Clinical concern for underlying pneumonia as precipitating etiology. Prior pulmonary function studies did not demonstrate evidence of COPD. However, these tests were last completed in 2018. Plan to continue PAP therapy for now and wean FiO2 to maintain oxygen saturations at or above 90%. The patient has been initiated on appropriate broad-spectrum antimicrobial therapy. 3. Acute on chronic kidney disease Most likely prerenal in etiology in the setting of #1. Continue current supportive care. Continue to monitor urine output. There is no current indication for renal replacement therapy. Obtain follow-up labs this morning. 4. Metabolic encephalopathy Most likely related to presenting infection in the setting of #1. The patient's CT head did reveal a nonhemorrhagic right temporal occipital infarction, which appears to be more of a chronic finding based upon comparison to outside hospital imaging. 5. History of sleep apnea/paroxysmal atrial fibrillation/chronic kidney disease/diabetes mellitus/obesity/hypertension Complicates care, management, recovery and prognosis. Continue to hold home antihypertensives for now. The patient is to remain n.p.o. pending improvement in his mental state and respiratory status. CODE STATUS: DNR CCA without intubation (confirmed with family) TIME: 39 minutes of critical care time, independent of procedures, was spent addressing the patient's septic shock, acute respiratory failure with hypoxemia, acute on chronic kidney disease, metabolic encephalopathy, review of all data and collaboration with the care team. HPI Consult Data Date of Consult: 07/20/24 HPI Narrative Reason for Consultation: Respiratory failure HPI Narrative: The patient is an 83-year-old male, with a history as outlined below, who presented to the emergency department from his [place] [facility] facility on July 19 with altered mental status and hypoxia. The patient, for a period of time, was seen in the pulmonary medicine clinic back in 2018 due to obstructive sleep apnea. Although he does have a smoking history, pulmonary function studies completed back in 2018 demonstrated no evidence of COPD. In addition to the aforementioned, the patient has a history of CVA, chronic kidney disease, diabetes mellitus and paroxysmal atrial fibrillation on Eliquis. On presentation to the emergency department, the patient was documented to be afebrile with a presenting blood pressure of 102/65 mmHg. The patient was tachypneic and saturating 82% on room air. Laboratory evaluation revealed a white blood cell count of 11,000. Hemoglobin was noted to be 12.6 g/dL. Arterial blood gas obtained on nasal cannula oxygen demonstrated a pH of 7.37 with a pCO2 of 45 and pO2 of 47. Chemistry profile was notable for a sodium of 149, bicarbonate of 26, BUN of 68 and creatinine of 4.66. Lactate was normal at 1.5. Urine analysis was positive for leukocyte esterase and 1+ urine bacteria. Toxicology screen was negative. Head CT revealed a nonhemorrhagic right temporal occipital infarction, most likely acute. Chest imaging demonstrated bilateral infiltrates. CT imaging the chest/abdomen and pelvis demonstrated airspace consolidation bilaterally along with nonobstructing right nephrolithiasis. In the emergency department, the patient developed fluid refractory hypotension, for which a central venous catheter was placed. Levophed was subsequently initiated. The patient was then admitted to the medical intensive care unit for further management. Repeat arterial blood gas obtained this morning demonstrated a pH of 7.31 with a pCO2 of 42 and pO2 of 68. The patient has been maintained on scheduled bronchodilators, IV steroids and antimicrobials. Levophed requirement is currently 15 mcg/min. [facility] Medical History History of CVA (cerebrovascular accident) (03/2020) Right bundle branch block (RBBB) with left anterior fascicular block Atherosclerosis of coronary artery without angina pectoris Fracture of humeral head, left, closed Stage 3b chronic kidney disease GERD (gastroesophageal reflux disease) Neuropathic pain BPH (benign prostatic hyperplasia) Depression Stroke Debility Duodenal ulcer History of pulmonary embolism (07/30/19) Essential (primary) hypertension Hypotension MARLON (acute kidney injury) Acute blood loss anemia Super obesity Noncompliance Family history of colon cancer Colon polyps Chronic renal failure, stage 3 (moderate) NILO (obstructive sleep apnea) HLD (hyperlipidemia) History of other venous thrombosis and embolism History of depression Type II diabetes mellitus, uncontrolled COPD (chronic obstructive pulmonary disease) Home Medications ?Medication ?Instructions ?Recorded ?Last Taken ?Type tamsulosin 0.4 mg capsule 0.8 mg PO DAILY prostate 07/08/16 04/02/24 History gabapentin 300 mg capsule 300 - 600 mg PO TID PRN PRN nerve 03/11/18 07/29/19 21:00 History pain isosorbide mononitrate 30 mg 30 mg PO DAILY heart 03/12/18 04/03/24 History tablet,extended release 24 hr atorvastatin 40 mg tablet 40 mg PO DAILY cholesterol 04/02/20 04/02/24 History losartan 50 mg tablet 100 mg PO DAILY bp 04/02/20 04/03/24 History fluticasone propionate 50 50 mcg NASAL DAILY Sinus 04/11/20 04/01/24 History mcg/actuation nasal spray,suspension nitroglycerin 0.4 mg sublingual 0.4 mg SL Q5M PRN Chest Pain 04/11/20 Unknown History tablet acetaminophen 325 mg tablet 650 mg (2 x 325 mg) PO Q6H PRN PRN 12/07/20 Unknown Rx (Tylenol) Pain Score 1-10/Temp > 100.7 F #0 tabs albuterol sulfate 2.5 mg/3 mL 2.5 mg (3 mL) inhalation Q4H PRN 12/07/20 Unknown Rx (0.083 %) solution for nebulization PRN Shortness of breath, wheezing #0 mL albuterol sulfate 90 mcg/actuation 2 puff inhalation Q6H PRN PRN SOB 12/07/20 04/02/24 Rx aerosol inhaler or Wheezing #0 grams apixaban 2.5 mg tablet (Eliquis) 2.5 mg PO BID #60 tabs 12/07/20 04/03/24 Rx ferrous sulfate 325 mg (65 mg 325 mg PO DAILY supplement #0 tabs 12/07/20 Unknown Rx iron) tablet escitalopram oxalate 20 mg tablet 20 mg PO DAILY 04/03/24 Unknown History insulin glargine 100 unit/mL (3 45 unit subcut QHS dm 04/03/24 04/02/24 History mL) subcutaneous pen insulin lispro 100 unit/mL 1 sliding scale dose subcut TID 04/03/24 04/03/24 History subcutaneous solution (Humalog U-100 Insulin) cefpodoxime 200 mg tablet 200 mg PO BID #20 tabs 04/06/24 Unknown Rx polyethylene glycol 3350 17 17 g PO DAILY #238 grams 04/06/24 Unknown Rx gram/dose oral powder (Miralax) amlodipine 2.5 mg tablet mg DAILY 07/20/24 Unknown History aspirin 81 mg tablet,delayed 81 mg PO DAILY 07/20/24 Unknown History release (Adult Aspirin Regimen) carvedilol 3.125 mg tablet mg 07/20/24 Unknown History cholestyramine (with sugar) 4 gram ea DAILY 07/20/24 Unknown History powder for susp in a packet cholestyramine-aspartame 4 gram ea DAILY 07/20/24 Unknown History oral powder for susp in a packet (Cholestyramine Light) clindamycin HCl 150 mg capsule mg 07/20/24 Unknown History clindamycin HCl 300 mg capsule mg 3XD 07/20/24 Unknown History dapagliflozin propanediol 10 mg mg DAILY 07/20/24 Unknown History tablet (Farxiga) fluticasone 100 mcg-salmeterol 50 inhalation 07/20/24 Unknown History mcg/dose blistr powdr for inhalation furosemide 40 mg tablet mg 07/20/24 Unknown History gabapentin 100 mg capsule mg DAILY 07/20/24 Unknown History hydrocodone-acetaminophen 5-325mg tab 07/20/24 Unknown History 5mg-325mg insulin aspart U-100 100 unit/mL subcut 07/20/24 Unknown History (3 mL) subcutaneous pen (Novolog FlexPen U-100 Insulin aspart) ipratropium 0.5 mg-albuterol 3 mg ml 07/20/24 Unknown History (2.5 mg base)/3 mL nebulization soln losartan 25 mg tablet mg DAILY 07/20/24 Unknown History metoprolol succinate 25 mg mg PO DAILY 07/20/24 Unknown History tablet,extended release 24 hr Allergy/AdvReac Type Severity Reaction Status Date / Time MARGIE Inhibitors Allergy Unknown edema Verified 07/19/24 21:31 cefepime Allergy weakness Verified 07/19/24 21:31 and falling ipodate (Ipodate) Allergy Shortness Verified 07/19/24 21:31 of breath levofloxacin (Levofloxacin) Allergy Anaphylaxis Verified 07/19/24 21:31 lisinopril Allergy Shortness Verified 07/19/24 21:31 of breath ofloxacin Allergy Other Verified 07/19/24 21:31 Quinolones Allergy Anaphylaxis Verified 07/19/24 21:31 Family History Father Colon cancer Mother Cancer Sister CAD (coronary artery disease) Surgical History History of left heart catheterization (07/11/19) History of loop recorder (03/2018) History of esophagogastroduodenoscopy (EGD) Social History Smoking Status: Unknown if ever smoked how long ago did patient quit smoking: cigars, smoked 2 a day, quit in 2007 ROS Review of Systems ROS Unobtainable: due to mental status Physical Exam Const Constitutional Narrative: Somnolent, but arousable on PAP therapy. Obese. General Appearance: lethargic and ill appearing HEENT normocephalic and head/scalp atraumatic Eyes PERRL, EOMs intact bilaterally and conjunctivae normal Neck supple General: trachea midline and CVC in place Chest inspection of chest normal Resp Auscultation: diminished lung sounds; Negative for rales, rhonchi or wheezes Cardio regular rate and regular rhythm GI normal to inspection, nondistended, normoactive bowel sounds Extremity General Extremity: edema; Negative for clubbing Skin General Skin Exam: venous stasis and dermatitis Neuro CN's II-XII intact bilaterally and no focal motor deficits Psych Mood & Affect: flat affect Lab / Micro Data 07/20/24 10:30 07/20/24 10:30 Labs: Laboratory Results - last 24 hr 07/19/24 22:14: WBC 11.3 H, RBC 4.34 L, Hgb 12.6 L, Hct 40.8, MCV 94.0, MCH 29.0, MCHC 30.9 L, RDW Std Deviation 52.8 H, RDW Coeff of Hilary 15.5 H, Plt Count 311, MPV 10.7, Immature Gran % (Auto) 0.500, Neut % (Auto) 81.5 H, Lymph % (Auto) 8.3 L, Gilliam % (Auto) 7.3, Eos % (Auto) 1.9, Baso % (Auto) 0.5, Absolute Neuts (auto) 9.2 H, Absolute Lymphs (auto) 0.94, Nucleated RBC % 0, PT 21.4 H, INR 1.8, APTT 41.9 H, Sodium 149 H, Potassium 4.6, Chloride 114 H, Carbon Dioxide 26.0, Anion Gap 9, BUN 68 H, Creatinine 4.66 H, Estim Creat Clear Calc 16.12, Est GFR (MDRD) Af Amer 16 L, Est GFR (MDRD) Non-Af 13 L, BUN/Creatinine Ratio 14.6, Glucose 139 H, Lactic Acid 1.5, Calcium 10.1, Total Bilirubin 0.80, AST 24, ALT 15 L, Alkaline Phosphatase 118 H, Total Protein 8.8 H, Albumin 2.5 L, Globulin 6.3 H, Albumin/Globulin Ratio 0.4 L 07/19/24 23:49: Urine Color Yellow, Urine Clarity Cloudy, Urine pH 6.0, Ur Specific [place] 1.015, Urine Protein 100 H, Urine Glucose (UA) 100 H, Urine Ketones Negative, Urine Occult Blood 50 H, Urine Nitrite Negative, Urine Bilirubin Negative, Urine Urobilinogen Normal, Ur Leukocyte Esterase 500 H, Urine RBC 5-10 SEEN, Urine WBC 50-100 SEEN, Ur Squamous Epith Cells 0 SEEN, Urine Bacteria 1+, Urine Mucus 0 SEEN, Ur Drug Screen Comment 07/20/24 05:33: Lactic Acid 1.2, Triglycerides 94, Cholesterol 69, LDL Cholesterol 28, VLDL Cholesterol 19, HDL Cholesterol 22 L, Folate 12.60, TSH 0.352 L, Ethyl Alcohol < 3.0 Micro: Microbiology 07/20/24 06:14 Urine Catheter - Lane Legionella Antigen - Final 07/20/24 06:14 Urine Catheter - Lane Streptococcus pneumoniae Antigen (M - Final 07/19/24 23:52 Mucosa - Nose SARS-CoV-2, Influenza & RSV (PCR) - Final ABG Data ABG results: ABG 07/19/24 22:10 Specimen Type ART Sample Site R Radial pH 7.37 Bicarbonate Actual 25.9 Total CO2 27 Base Excess 1 O2 Saturation 81 L O2 % 6.0 ABG pCO2 45.0 ABG pO2 47 L Randy Test Positive O2 Delivery Device Cannula Vent Mode Not entered Imaging Radiology Impression Brain CT 07/19/24 21:54 IMPRESSION: Nonhemorrhagic right temporo-occipital infarction most likely acute. Cerebral cortical and cerebellar atrophy. Chronic bilateral subdural hygromas. One or more dose reduction techniques were used (e.g., Automated exposure control, adjustment of the mA and/or kV according to patient size, use of iterative reconstruction technique). Reading Location: [facility] Chest X-Ray 07/19/24 22:49 IMPRESSION: Bilateral lung infiltrates. Mild cardiac enlargement. Reading Location: [facility] Chest X-Ray 07/20/24 01:18 IMPRESSION: Stable cardiac enlargement. Bilateral lung infiltrates. Tip of a right central venous catheter in good position. Reading Location: [facility] Chest/Abdomen/Pelvis CT 07/20/24 23:45 IMPRESSION: Diffuse bilateral lung pneumonias. Centrilobular emphysematous changes. Lipoma along the right lateral chest wall. Right thyroid gland nodule. Consider ultrasound for further evaluation if indicated. Ascending aorta aneurysm. Pulmonary artery diameter increase raising concern for pulmonary arterial hypertension. Coronary artery calcifications. Suspicion of hairline fractures, manubrium and body of the sternum. Ill-defined nodule in the left hepatic lobe, cyst or hemangioma should be considered. Cholelithiasis. Left adrenal gland nodule most likely adenoma. Bilateral renal cysts. Nonobstructing right nephrolithiasis. Chronic prostatitis. Bilateral fat containing inguinal hernias. One or more dose reduction techniques were used (e.g., Automated exposure control, adjustment of the mA and/or kV according to patient size, use of iterative reconstruction technique). Reading Location: [facility] Sepsis Attestation Sepsis Attestation: Agree w/Sepsis Possible Source of Sepsis: Pulmonary and Genitourinary Sepsis Organ Dysfunction Criteria Present: SBP < 90 mmHg or MAP < 65 mmHg, Acute Respiratory Failure (New need for BiPAP/CPAP or MV), Creatinine > 2.0 mg/dL and New/Unexplained change in mental status Fluid Resuscitation Fluid Resuscitation ordered: 30 ml/kg fluid bolus ordered Sepsis Note Date exam was performed: 07/20/24 Time exam was performed: 08:05 Sepsis Attestation: Sepsis re-evaluation was performed Response to fluids: Non Fluid responsive hypotension and Vasopressors started Charges/Coding Procedures Hospitalists Procedures: 43838 Critical Care 1st Hr
[2024-07-20 07:46] LABS: Vitamin B12 417 pg/mL (211-911)
[2024-07-20 08:07] LABS: Amphetamine Urine NEGATIVE (<1000 ng/mL); Barbiturate Urine VISTA NEGATIVE (< 200 ng/mL); Benzodiazepine Urine VISTA NEGATIVE (< 200 ng/mL); Cocaine Urine VISTA NEGATIVE (< 300 ng/mL); Ecstacy Urine VISTA NEGATIVE (< 500 ng/mL); Methadone Urine VISTA NEGATIVE (< 300 ng/mL); PCP Urine VISTA NEGATIVE (< 25 ng/mL); THC Urine VISTA NEGATIVE (< 50 ng/mL); Vista UDS pH Range 5
[2024-07-20 08:38] LABS: Allen Test Positive; Base Excess -5 mmol/L (-2 to +2); Bicarbonate 21.3 mmol/L (22-26); Blood Gas Specimen Type ART; Mode Not entered; O2 Delivery Device BiPAP; PEEP 8; PO2 68 mmHG (75-100); SITE R Radial; SO2 91 % (95-99); Total Carbon Dioxide 23 mmol/L; pCO2 42.1 mmHg (35-45); pH 7.31 (7.35-7.45)
[2024-07-20] MEDS: Aztreonam 2 GM in 0.9% Normal Saline (100mL MB+) 100 ML IV (08:56)
[2024-07-20] MEDS: Meropenem 500 MG in 0.9% Normal Saline (50mL MB+) 50 ML 100 MG IV ×2 (09:47→22:01)
--- NOTE | 2024-07-20 09:48 | CASEMGMT ---
Social Work SW attended ICU rounds. Pt currently on bipap, dgt Antoinette present in the room. Per dgt, pt was admitted to [facility] about a week ago from [facility]. Plan is to return to [facility] when medically ready. DC acute care nursing assistant updated and to send clinicals to [facility]. New precert will be needed for pt to return. KATHY Navarro
--- NOTE | 2024-07-20 10:06 | PCM.RX.CS ---
Consult Antibiotic Management Pharmacy has been consulted to manage selected antibiotic: Vancomycin Type of Intervention Type of Consult: New start Suspected Infection Suspected Infection: Sepsis Labs Labs: Sodium 149 mmol/L (136-145) H 07/19/24 22:14 Potassium 4.6 mmol/L (3.5-5.1) 07/19/24 22:14 Chloride 114 mmol/L (98-107) H 07/19/24 22:14 Carbon Dioxide 26.0 mmol/L (21.0-32.0) 07/19/24 22:14 Anion Gap 9 (5-15) 07/19/24 22:14 BUN 68 mg/dL (7-18) H 07/19/24 22:14 Creatinine 4.66 mg/dL (0.70-1.30) H 07/19/24 22:14 Est GFR (MDRD) Af Amer 16 mL/min (>60) L 07/19/24 22:14 Est GFR (MDRD) Non-Af 13 mL/min (>60) L 07/19/24 22:14 BUN/Creatinine Ratio 14.6 RATIO (10-20) 07/19/24 22:14 Glucose 139 mg/dL (74-106) H 07/19/24 22:14 Microbiology Microbiology: Microbiology 07/20/24 06:14 Urine Catheter - Lane Legionella Antigen - Final 07/20/24 06:14 Urine Catheter - Lane Streptococcus pneumoniae Antigen (M - Final 07/19/24 23:52 Mucosa - Nose SARS-CoV-2, Influenza & RSV (PCR) - Final Estimated Creatinine Clearance Estimated Creatinine Clearance: 16.12 Goal Trough Goal Trough: 15-20 mcg/mL Pharmacy Plan for Drug Dosing Pharmacy Plan for Drug Dosing: NEW START IV VANCOMYCIN Consulting Physician: Dr. Malone Indication: Sepsis Goal Trough: 15-20 SrCr: 4.66 mg/dl CrCl: 16.12 ml/min Comments: Baseline sCr ~ 2 mg/dl Vancomycin Dose: Loading dose of 2000mg x1 dose to be given now Pending Level: Random vancomycin level @ 0600 07/22/24 Pharmacy Service will continue to monitor and adjust dosing as required. Follow-Up Labs Follow-Up Labs: Trough: Vancomycin (07/22/24 @ 0600)
--- NOTE | 2024-07-20 10:09 | CASEMGMT ---
H&P sent to [facility] with note asking if pt will need new precert to return. Awaiting response. Tierney Raphael DC Planning Asst.
[2024-07-20] MEDS: Vancomycin HCl 2,000 MG in 0.9% Normal Saline (500mL Bag) 500 ML 250 MG IV (10:28)
[2024-07-20] MEDS: 0.9% Saline Lock 10 ML Syringe IV (10:30)
[2024-07-20 10:46] LABS: Absolute Lymphocyte Count 0.42 X10^3/uL (0.83-4.51); Absolute Neutrophil Count 13.4 X10^3/uL (2.0-7.7); Basophil# 0.04 X10^3/uL; Basophil% 0.3 % (0-1); Eosinophil# 0.06 X10^3/uL; Eosinophils% 0.4 % (0-5); Hematocrit 39.5 % (40-54); Lymphocyte # 0.42 X10^3/ul (0.83-4.51); Mean Corp Hgb Conc 30.4 g/dL (32-36); Mean Corpuscular Volume 95.4 fL (80-94); Mean Platelet Vol. 10.3 fl (6.2-12.0); Monocyte# 0.19 X10^3/uL; Monocyte% 1.3 % (0-10); NRBC Flagged by Analyzer 0 % (0-5); Neutrophil # 13.41 X10^3/uL (2.7-7.7); Neutrophil % 94.3 % (47-70); POSITIVE DIFFERENTIAL YES; Platelet Count 298 K/mm3 (150-450); RBC Distribution Width CV 15.4 % (11.6-14.6); RBC Distribution Width SD 52.4 fl (35.1-43.9); Red Blood Count 4.14 M/mm3 (4.6-6.2); White Blood Count 14.2 K/mm3 (4.4-11.0)
[2024-07-20 11:17] LABS: ALB/GLOB Ratio 0.4 RATIO (0.9-2.4); AST(SGOT) 18 U/L (15-37); Alanine Aminotransfer ALT/SGPT 12 U/L (16-61); Albumin, Serum 2.1 g/dL (3.2-5.0); Alkaline Phosphatase 114 U/L (45-117); Anion Gap 9 (5-15); BUN 68 mg/dL (7-18); Calcium,Total 9.3 mg/dL (8.5-10.1); Chloride 120 mmol/L (98-107); Creatinine, Serum 3.77 mg/dL (0.70-1.30); EST Glomerular Filtration Rate 16 mL/min (>60); Est Glom Filt Rate - Afr Amer 20 mL/min (>60); Estimated Creatinine Clearance 19.74 ml/min; Globulin 5.4 g/dL (2.2-4.2); Glucose 231 mg/dL (74-106); Potassium 4.9 mmol/L (3.5-5.1); Protein, Total 7.5 g/dL (6.4-8.2); Sodium Level 150 mmol/L (136-145)
--- NOTE | 2024-07-20 11:18 | WOUNDNOTE ---
wound photo: buttocks/sacrum
[2024-07-20] MEDS: Dextrose 5%-Water (1000mL Bag) 1,000 ML 125 ML IV ×2 (12:56→20:41)
[2024-07-20] MEDS: Ipratropium/Albuterol Sulfate 3 ML AMPUL.NEB INHALATION ×2 (13:18→19:12)
--- NOTE | 2024-07-20 15:09 | CHAPLAIN ---
Type of Pastoral Visit ___ Initial Visit ___ Follow-up Visit ___ On-call Visit ___ General Patient Visit ___ Spiritual Assessment ___ Family Conference ___ Bereavement ___ Rapid Response ___ Code Blue ___ Other (describe below) Pastoral Care Referral From ___ Patient ___ Family ___ Nurse ___ Physician ___ Developer Architect ___ Public Transit Bus Driver ___ Other (describe below) Sacrament/Intervention ___ Active listening ___ Anointing ___ Methodist ___ Bereavement ___ Communion ___ Marcella exploration ___ ___ Life review _x__ Prayer ___ Reconciliation ___ Sacrament of Sick ___ Supportive presence ___ Wedding ___ Other (describe below) Pastoral Comments patient was on the bi pap and sleeping; said a silent prayer
[2024-07-20] MEDS: Norepinephrine 8 MG in 0.9% Normal Saline (250mL Bag) 242 ML 28.1 MG CONT INF (15:14)
--- NOTE | 2024-07-20 15:42 | CASEMGMT ---
Per CC patient will not need a new pre-cert. Plan: d/c back to [facility] when medically ready. Lilly Monterroso MSW [place]
--- NOTE | 2024-07-20 16:58 | PCM.HOSP.N ---
Hospitalist Note Patient was seen and examined briefly today, I talked briefly with critical care about his medical care. Patient is currently on 2 L of oxygen at the time of this dictation, critical care placed him on meropenem today.
[2024-07-20] MEDS: MethylPREDNISolone 125 MG/2 ML Vial 60 MG IV (22:01)
[2024-07-20] MEDS: Insulin Glargine-YFGN 100 UNIT/ML Pen 35 UNIT SC (22:02)
[2024-07-20] MEDS: 0.9% Normal Saline (100mL Bag) 100 ML 15 ML IV (22:18)
[2024-07-20 22:28] LABS: Bedside Glucose 299 mg/dL (74-106)
--- NOTE | 2024-07-20 23:45 | CT_ITS ---
PROCEDURE: CT CHEST, ABD, PELVIS WO CONT REASON FOR EXAM: Altered mental status from care center. Pneumonia. Patient on antibiotics. COPD. Atrial fibrillat ion. Diabetes TECHNIQUE: Chest CTA with intravenous contrast and 3D reconstructions. Abdomen and pelvis CT using the same cont rast dose. CONTRAST: Not given. COMPARISON: Chest radiograph dated 04/03/2024 FINDINGS: CHEST: Lines and tubes: None. Mediastinum: No evidence of mediastinal hemorrhage.. Heart: Mild cardiac enlargement. No pericardial effusion. Extensive coronary artery calcifications. Thoracic Aorta: No evidence of acute traumatic aortic injury. Ascending aorta diameter measures 4.5 cm. Mild atherosclerotic calcifications. Main Pulmonary artery:: Diameter measures 4.0 cm. Lungs and Airways: Airspace consolidation in the right upper and lower lobe. Airspace consolidation in the left upper and lower lobes. Bilateral air bronchograms. Centrilobular emphysematous changes. A subpleural nodule along the right anterior lateral chest wall measuring 4.6 x 1.6 cm, attenuation in the range of fat. Pleura: No pleural effusion. No pneumothorax. Chest wall soft tissues: Unremarkable. Thyroid: Right thyroid gland nodule of decreased attenuation measuring 2.0 x 1.4 cm. Bones: Suspicion of undisplaced fractures through the manubrium and distal body of the sternum. Mult ilevel spondylosis. Nonacute findings detailed above. ABDOMEN AND PELVIS: Liver: Ill-defined area of hypoattenuation in the left hepatic lobe measuring 1.2 cm, axial image 88. Gallbladder: Gallstones layering dependently. Spleen: Unremarkable. Pancreas: Unremarkable. Adrenals: Left adrenal gland nodule measuring 1.7 cm, axial image 29. Kidneys: Well-circumscribed cysts in the right kidney, largest measuring 4.5 x 3.4 cm and the smalles t measuring 2.1 x 1.7 cm. Right upper pole calculus measuring 0.4 cm. Multiple left renal cortical cysts, largest projecting f rom the inferior pole measuring 2.3 cm. Bladder: Unremarkable. Reproductive Organs: Normal-sized prostate gland. Prostate gland calcifications. Anterior abdominal wall: Bilateral fat containing inguinal hernias, more prominent on the left. Bowel: Unremarkable Vasculature: Aortoiliac and visceral artery atherosclerotic calcifications. Peritoneum / Retroperitoneum: No free fluid. No free air. Bones: Multilevel spondylosis and degenerative disc disease. CT/CT Chest, Abd, Pelvis WO Cont IMPRESSION: Diffuse bilateral lung pneumonias. Centrilobular emphysematous changes. Lipoma along the right lateral chest wall. Right thyroid gland nodule. Consider ultrasound for further evaluation if jordin cated. Ascending aorta aneurysm. Pulmonary artery diameter increase raising concern for pulmonary arterial hyper tension. Coronary artery calcifications. Suspicion of hairline fractures, manubrium and body of the sternum. Ill-defined nodule in the left hepatic lobe, cyst or hemangioma should be consi dered. Cholelithiasis. Left adrenal gland nodule most likely adenoma. Bilateral renal cysts. Nonobstructing right nephrolithiasis. Chronic prostatitis. Bilateral fat containing inguinal hernias. One or more dose reduction techniques were used (e.g., Automated exposure contr ol, adjustment of the mA and/or kV according to patient size, use of iterative reconstruction technique). Reading Location: [facility]
[2024-07-21] VITALS (44 sets, daily range): BP systolic 99–245; BP diastolic 41–188; PULSE 53–77; RESP 12–21; TEMP 36.3–36.6; O2SAT 92–100; BMI 35.3
[2024-07-21] MEDS: Ipratropium/Albuterol Sulfate 3 ML AMPUL.NEB INHALATION ×4 (01:08→19:02)
[2024-07-21 01:55] LABS: Absolute Lymphocyte Count 0.29 X10^3/uL (0.83-4.51); Basophil# 0.02 X10^3/uL; Basophil% 0.2 % (0-1); Hematocrit 36.1 % (40-54); Hemoglobin 10.6 g/dL (13.0-16.5); Lymphocyte # 0.29 X10^3/ul (0.83-4.51); Lymphocyte % 2.3 % (19-41); Mean Corp Hgb Conc 29.4 g/dL (32-36); Mean Corpuscular Volume 95.5 fL (80-94); Mean Platelet Vol. 10.3 fl (6.2-12.0); Monocyte# 0.23 X10^3/uL; Monocyte% 1.8 % (0-10); NRBC Flagged by Analyzer 0 % (0-5); Neutrophil # 11.96 X10^3/uL (2.7-7.7); Neutrophil % 94.9 % (47-70); POSITIVE DIFFERENTIAL YES; Platelet Count 281 K/mm3 (150-450); RBC Distribution Width CV 15.2 % (11.6-14.6); Red Blood Count 3.78 M/mm3 (4.6-6.2); White Blood Count 12.6 K/mm3 (4.4-11.0)
[2024-07-21 02:08] LABS: Anion Gap 6 (5-15); BUN 72 mg/dL (7-18); BUN/Creat Ratio 20.7 RATIO (10-20); Chloride 120 mmol/L (98-107); Creatinine, Serum 3.48 mg/dL (0.70-1.30); EST Glomerular Filtration Rate 18 mL/min (>60); Est Glom Filt Rate - Afr Amer 22 mL/min (>60); Estimated Creatinine Clearance 21.39 ml/min; Glucose 382 mg/dL (74-106); Potassium 4.4 mmol/L (3.5-5.1); Sodium Level 148 mmol/L (136-145)
[2024-07-21] MEDS: Norepinephrine 8 MG in 0.9% Normal Saline (250mL Bag) 242 ML 9.4 MG CONT INF (03:28)
[2024-07-21] MEDS: Dextrose 5%-Water (1000mL Bag) 1,000 ML 125 ML IV ×3 (03:28→21:46)
[2024-07-21] MEDS: Meropenem 500 MG in 0.9% Normal Saline (50mL MB+) 50 ML 100 MG IV ×2 (08:01→21:47)
[2024-07-21] MEDS: Fluticasone 0.05% 1 SPRAY NASAL.SRY NASAL (08:02)
--- NOTE | 2024-07-21 08:04 | PN.CC_ITS ---
Assessment & Plan Assessment/Plan (1) Septic shock: PLAN: Plan RECOMMENDATIONS: 1. Continue empiric antibiotics as ordered. 2. Continue PAP therapy as ordered. 3. Continue Levophed to maintain a mean arterial pressure at or above 65 mmHg. 4. Continue bronchodilators and IV steroids. 5. Continue D5W given hypernatremia. 6. Transition to Lovenox for DVT prophylaxis, given n.p.o. status. 7. Check ammonia level and consider MRI brain. 8. If no improvement in mental status, will obtain neurology consultation. IMPRESSIONS: 1. Septic shock The patient presented to the hospital with sepsis due to suspected pneumonia +/- UTI with evidence of sepsis related organ dysfunction as evidenced by acute respiratory failure requiring noninvasive positive pressure ventilatory support, acute kidney injury, fluid refractory hypotension requiring vasopressor support and altered mental status. The patient did ultimately receive IV fluids, but inevitably required vasopressor initiation to maintain hemodynamic stability. Plan to continue Levophed as tolerated. The patient has been initiated on appropriate broad-spectrum antimicrobial therapy, pending infectious workup. 2. Acute hypoxemic respiratory failure Clinical concern for underlying pneumonia as precipitating etiology. Prior pulmonary function studies did not demonstrate evidence of COPD. However, these tests were last completed in 2018. Plan to continue PAP therapy for now and wean FiO2 to maintain oxygen saturations at or above 90%. The patient has been initiated on appropriate broad-spectrum antimicrobial therapy. 3. Acute on chronic kidney disease Most likely prerenal in etiology in the setting of #1. Continue current supportive care. Continue to monitor urine output. There is no current indication for renal replacement therapy. 4. Encephalopathy Most likely related to presenting infection in the setting of #1 with accompanying metabolic derangements. The patient's CT head did reveal a nonhemorrhagic right temporal occipital infarction, which appears to be more of a chronic finding based upon comparison to outside hospital imaging. Given the patient's lack of improvement with noninvasive positive pressure ventilatory support, would consider MRI brain. In addition, will check ammonia level. If the patient's encephalopathy does not begin to improve, will obtain neurology consultation. 5. History of sleep apnea/paroxysmal atrial fibrillation/chronic kidney disease/diabetes mellitus/obesity/hypertension Complicates care, management, recovery and prognosis. Continue to hold home antihypertensives for now. The patient is to remain n.p.o. pending improvement in his mental state and respiratory status. CODE STATUS: DNR CCA without intubation (confirmed with family) TIME: 34 minutes of critical care time, independent of procedures, was spent addressing the patient's septic shock, acute respiratory failure with hypoxemia, acute on chronic kidney disease, metabolic encephalopathy, review of all data and collaboration with the care team. Subjective Subjective The patient was seen and examined at the bedside this morning. Events from the last 24 hours have been reviewed. The patient remains on Levophed at 4 mcg/min to maintain hemodynamic stability. Unfortunately, the patient still remains extremely lethargic this morning, despite remaining on BiPAP with a pressure support of 15/8 cm of water and 30% FiO2. The patient is currently documented to be overall net +4.6 L for the hospitalization. White blood cell count was noted to be 13,000 this morning with a hemoglobin of 10.6 g/dL and platelet count of 281,000. Repeat arterial blood gas was notable for a pH of 7.31 with a pCO2 of 44 and pO2 of 59. Sodium has improved to 148 with a creatinine of 3.48. Objective Data Objective Data The patient's most recent lab work, culture data and imaging studies have all been personally reviewed. Surface echocardiogram from March 2024 demonstrated normal LV size and function with an ejection fraction of 65%. Preliminary urine culture is demonstrating growth of a gram-negative cata. However, there is less than 1000 CFU per mL. Blood cultures have not demonstrated any growth to date. Vital Signs: Vital Signs Temp Pulse Resp BP Pulse Ox O2 Del Method O2 Flow Rate 97.3 F L 70 16 124/64 H 98 Bi-pap 2 07/21/24 03:00 07/21/24 07:00 07/21/24 07:00 07/21/24 07:00 07/21/24 07:00 07/21/24 07:00 07/20/24 19:00 FiO2 35 07/21/24 07:00 Oxygen Flow Rate (L/min) 2 Oxygen Delivery Method Bi-pap Weight: 260 lb 5.855 oz Body Mass Index (BMI) 35.3 Intake & Output: Intake and Output for Last 24 Hours 07/19/24 07/20/24 07/21/24 23:59 23:59 23:59 Intake Total 1000 / 1000 6444.89 / 6449.59 918.42 / 918.42 Output Total 3000 / 3000 800 / 800 Balance 1000 / 1000 3444.89 / 3449.59 118.42 / 118.42 Lab / Micro Data Attestation: I reviewed the patient's lab results. 07/21/24 01:40 07/21/24 01:40 Labs: Laboratory Results - last 24 hr 07/19/24 23:49: Urine Opiates Screen NEGATIVE, Urine Methadone Screen NEGATIVE, Ur Barbiturates Screen NEGATIVE, Ur Phencyclidine Scrn NEGATIVE, Ur Amphetamines Screen NEGATIVE, MDMA (Ecstasy) Screen NEGATIVE, U Benzodiazepines Scrn NEGATIVE, Urine Cocaine Screen NEGATIVE, U Cannabinoids Screen NEGATIVE 07/20/24 05:33: Hemoglobin A1c 7.0 H 07/20/24 10:30: WBC 14.2 H, RBC 4.14 L, Hgb 12.0 L, Hct 39.5 L, MCV 95.4 H, MCH 29.0, MCHC 30.4 L, RDW Std Deviation 52.4 H, RDW Coeff of Hilary 15.4 H, Plt Count 298, MPV 10.3, Immature Gran % (Auto) 0.700, Neut % (Auto) 94.3 H, Lymph % (Auto) 3.0 L, [place] % (Auto) 1.3, Eos % (Auto) 0.4, Baso % (Auto) 0.3, Absolute Neuts (auto) 13.4 H, Absolute Lymphs (auto) 0.42 L, Nucleated RBC % 0, Sodium 150 H, Potassium 4.9, Chloride 120 H, Carbon Dioxide 21.0, Anion Gap 9, BUN 68 H , Creatinine 3.77 H, Estim Creat Clear Calc 19.74, Est GFR (MDRD) Af Amer 20 L, Est GFR (MDRD) Non-Af 16 L, BUN/Creatinine Ratio 18.0, Glucose 231 H, Calcium 9.3, Total Bilirubin 0.60, AST 18, ALT 12 L, Alkaline Phosphatase 114, Total Protein 7.5, Albumin 2.1 L, Globulin 5.4 H, Albumin/Globulin Ratio 0.4 L 07/20/24 21:59: POC Glucose 299 H 07/21/24 01:40: WBC 12.6 H, RBC 3.78 L, Hgb 10.6 L, Hct 36.1 L, MCV 95.5 H, MCH 28.0, MCHC 29.4 L, RDW Std Deviation 53.0 H, RDW Coeff of Hilary 15.2 H, Plt Count 281, MPV 10.3, Immature Gran % (Auto) 0.800, Neut % (Auto) 94.9 H, Lymph % (Auto) 2.3 L, [place] % (Auto) 1.8, Eos % (Auto) 0.0, Baso % (Auto) 0.2, Absolute Neuts (auto) 12.0 H, Absolute Lymphs (auto) 0.29 L, Nucleated RBC % 0, Sodium 148 H, Potassium 4.4, Chloride 120 H, Carbon Dioxide 22.0, Anion Gap 6, BUN 72 H , Creatinine 3.48 H, Estim Creat Clear Calc 21.39, Est GFR (MDRD) Af Amer 22 L, Est GFR (MDRD) Non-Af 18 L, BUN/Creatinine Ratio 20.7 H, Glucose 382 H, Calcium 9.0 Micro: Microbiology 07/20/24 06:14 Urine Catheter - Lane Legionella Antigen - Final 07/20/24 06:14 Urine Catheter - Lane Streptococcus pneumoniae Antigen (M - Final 07/19/24 23:52 Mucosa - Nose SARS-CoV-2, Influenza & RSV (PCR) - Final ABG Data ABG results: ABG 07/20/24 08:34 Specimen Type ART Sample Site R Radial pH 7.31 L Bicarbonate Actual 21.3 L Total CO2 23 Base Excess -5 L O2 Saturation 91 L O2 % 40.0 ABG pCO2 42.1 ABG pO2 68 L Randy Test Positive O2 Delivery Device BiPAP Vent Mode Not entered POC PEEP 8 Physical Exam Const Constitutional Narrative: Somnolent and minimally responsive, only opening eyes to verbal and tactile stimulation. General Appearance: lethargic and ill appearing HEENT normocephalic and head/scalp atraumatic Eyes PERRL, EOMs intact bilaterally and conjunctivae normal Neck supple General: trachea midline and CVC in place Chest inspection of chest normal Resp Auscultation: diminished lung sounds; Negative for rales, rhonchi or wheezes Cardio regular rate and regular rhythm GI normal to inspection, nondistended, normoactive bowel sounds Extremity General Extremity: edema; Negative for clubbing Skin General Skin Exam: venous stasis and dermatitis Neuro CN's II-XII intact bilaterally and no focal motor deficits Psych Mood & Affect: flat affect Charges/Coding Procedures Hospitalists Procedures: 27541 Critical Care 1st Hr
[2024-07-21 08:36] LABS: Base Excess -4 mmol/L (-2 to +2); Bicarbonate 22.6 mmol/L (22-26); Blood Gas Specimen Type ART; Comment 15 8; Mode Not entered; O2 Delivery Device Not entered; PO2 59 mmHG (75-100); SITE L Brach; SO2 88 % (95-99); Total Carbon Dioxide 24 mmol/L; pCO2 44.4 mmHg (35-45); pH 7.31 (7.35-7.45)
--- NOTE | 2024-07-21 09:26 | MRI_ITS ---
PROCEDURE: BRAIN WITHOUT CONTRAST REASON FOR EXAM: Encephalopathy; acute CVA. TECHNIQUE: Multiplanar, multisequence MRI of the brain without intravenous gadolinium-based contrast. COMPARISON: 07/19/2024 CT. FINDINGS: Moderate to severe global parenchymal atrophy. Right temporoparietal increased DWI, increased ADC, increased FLAIR/T2, and decreased T1 signal most compatible with a subacute/chronic infarction. However, on the right there is increased DWI without other abnormal signal characteristics favoring T2 shine through. No evidence of acute hemorrhage. No extra-axial blood or fluid collections. Periventricular white matter T2/FLAIR hyperintensity favoring mild chronic microvascular ischemia. MRI/Brain without Contrast IMPRESSION: Constellation of findings most compatible with a right temporoparietal subacute /chronic infarction. Increased DWI signal within the left parietal lobe without other features favor ing T2 shine through artifact. Correlate with clinical examination to exclude a concurrent left parietal infarction. Parenchymal atrophy and chronic microvascular ischemia. Reading Location: [id number]
--- NOTE | 2024-07-21 10:05 | CASEMGMT ---
New msg rec'd from [facility] regarding precert. Pts current precert is only good until 07/22. If discharged after that, pt will need new precert. Tierney Raphael DC Planning Asst.
[2024-07-21] MEDS: Enoxaparin 30 MG/0.3 ML Syringe SC (10:17)
[2024-07-21] MEDS: Pantoprazole Sodium 40 MG in 0.9% Normal Saline (100mL MB+) 100 ML 330 MG IV (10:18)
[2024-07-21] MEDS: MethylPREDNISolone 125 MG/2 ML Vial 60 MG IV ×2 (10:26→21:47)
--- NOTE | 2024-07-21 10:35 | NURSING ---
transferred patient to MRI at this time on 15L high flow nasal cannula
--- NOTE | 2024-07-21 11:40 | NURSING ---
Patient in MRI on 15L high flow nasal cannula, O2 sats began dropping to mid 80s, MRI with 4 minutes left, respiratory called, sats dropped to 81% MRI completed and added nonrebreather with high flow, sats improved to 96%. Taken back to ICU room and placed on bipap 35%
[2024-07-21] MEDS: Insulin Lispro 100 UNIT/ML INSULN.PEN SC ×2 (12:03→17:25)
[2024-07-21 12:18] LABS: Bedside Glucose 326 mg/dL (74-106)
--- NOTE | 2024-07-21 15:36 | CHAPLAIN ---
Type of Pastoral Visit _x__ Initial Visit ___ Follow-up Visit ___ On-call Visit ___ General Patient Visit ___ Spiritual Assessment ___ Family Conference ___ Bereavement ___ Rapid Response ___ Code Blue ___ Other (describe below) Pastoral Care Referral From ___ Patient _x__ Family ___ Nurse ___ Physician ___ Filtrose Crusher ___ Informatics Application Analyst ___ Other (describe below) Sacrament/Intervention ___ Active listening ___ Anointing ___ Hoahaoism ___ Bereavement ___ Communion ___ Marcella exploration ___ ___ Life review _x__ Prayer ___ Reconciliation ___ Sacrament of Sick _x__ Supportive presence ___ Wedding ___ Other (describe below) Pastoral Comments patient is still on the bi pap and is sleeping; this second attempt today found the daughter in the room; daughter is offered support and is asked about the status of the patient; asked daughter about how the patient is handling the situation; pt is still able to recognize his family but daughter indicates that there have been significant changes in patient since his stroke in March; daughter states that prayer would be the only thing that this elevator operator service can do at this time; prayer and presence given
--- NOTE | 2024-07-21 17:45 | PCM.PN.HOSP ---
Reason for Visit Reason for Visit: Diagnoses Sepsis, unspecified organism (07/20/24) Obesity, unspecified (07/20/24) Hyperosmolality and hypernatremia (07/20/24) Vascular dementia, unspecified severity, without behavioral disturbance, psychotic disturbance, mood disturbance, and anxiety (07/20/24) Obstructive sleep apnea (adult) (pediatric) (07/20/24) Encephalopathy, unspecified (07/20/24) Metabolic encephalopathy (07/20/24) Pneumonia, unspecified organism (07/20/24) Chronic obstructive pulmonary disease with (acute) exacerbation (07/20/24) Acute respiratory failure with hypoxia (07/20/24) Acute kidney failure, unspecified (07/20/24) Chronic kidney disease, stage 4 (severe) (07/20/24) Acute cystitis with hematuria (07/20/24) Severe sepsis with septic shock (07/20/24) Adverse effect of unspecified drugs, medicaments and biological substances, initial encounter (07/20/24) Personal history of transient ischemic attack (TIA), and cerebral infarction without residual deficits (07/20/24) Subjective Subjective Patient was seen and examined today, nursing states that the patient has been lethargic and hard to wake up, during the time my examination patient opened his eyes and nodded his head to simple questions but did not carry on a conversation with me. I talked with patient's daughter who is in the room at the time my examination, she states that when the patient went to his nursing facility a week ago shortly afterwards he became lethargic and did not talk much, she stated that when he was discharged from the hospital to the retirement he had a normal mental status. Patient has a past history of stroke that happened in March 2024. MRI of the brain showed a right temporoparietal subacute chronic infarction, there is also an area in the left parietal lobe which may be in keeping with a left parietal infarction Objective Data Objective Data Vital Signs: Vital Signs Temp Pulse Resp BP Pulse Ox O2 Del Method O2 Flow Rate 97.5 F L 71 18 129/72 H 100 Bi-pap 15 07/21/24 12:00 07/21/24 16:24 07/21/24 16:24 07/21/24 16:00 07/21/24 16:24 07/21/24 16:00 07/21/24 11:00 FiO2 35 07/21/24 16:24 Oxygen Flow Rate (L/min) 15 Oxygen Delivery Method Bi-pap Weight: 118.1 kg Body Mass Index (BMI) 35.3 Intake & Output: Intake and Output for Last 24 Hours 07/19/24 07/20/24 07/21/24 23:59 23:59 23:59 Intake Total 1000 / 1000 6444.89 / 6449.59 2118.44 / 2118.44 Output Total 3000 / 3000 2049 / 2049 Balance 1000 / 1000 3444.89 / 3449.59 68.44 / 68.44 Lab / Micro Data 07/21/24 01:40 07/21/24 01:40 Labs: Laboratory Results - last 24 hr 07/20/24 21:59: POC Glucose 299 H 07/21/24 01:40: WBC 12.6 H, RBC 3.78 L, Hgb 10.6 L, Hct 36.1 L, MCV 95.5 H, MCH 28.0, MCHC 29.4 L, RDW Std Deviation 53.0 H, RDW Coeff of Hilary 15.2 H, Plt Count 281, MPV 10.3, Immature Gran % (Auto) 0.800, Neut % (Auto) 94.9 H, Lymph % (Auto) 2.3 L, [place] % (Auto) 1.8, Eos % (Auto) 0.0, Baso % (Auto) 0.2, Absolute Neuts (auto) 12.0 H, Absolute Lymphs (auto) 0.29 L, Nucleated RBC % 0, Sodium 148 H, Potassium 4.4, Chloride 120 H, Carbon Dioxide 22.0, Anion Gap 6, BUN 72 H, Creatinine 3.48 H, Estim Creat Clear Calc 21.39, Est GFR (MDRD) Af Amer 22 L, Est GFR (MDRD) Non-Af 18 L, BUN/Creatinine Ratio 20.7 H, Glucose 382 H, Calcium 9.0 07/21/24 10:30: Ammonia 12.0 07/21/24 11:59: POC Glucose 326 H Micro: Microbiology 07/19/24 23:49 Urine, Random Urine Culture - Final GNR Poss Pseudomonas sp Presumptive C albicans 07/20/24 06:14 Urine Catheter - Lane Legionella Antigen - Final 07/20/24 06:14 Urine Catheter - Lane Streptococcus pneumoniae Antigen (M - Final 07/19/24 23:52 Mucosa - Nose SARS-CoV-2, Influenza & RSV (PCR) - Final ABG Data ABG results: ABG 07/21/24 08:33 Specimen Type ART Sample Site L Brach pH 7.31 L Bicarbonate Actual 22.6 Total CO2 24 Base Excess -4 L O2 Saturation 88 L O2 % 30.0 ABG pCO2 44.4 ABG pO2 59 L O2 Delivery Device Not entered Vent Mode Not entered Clinical Comments 15 8 Radiography Diagnostic Testing: Radiology Impression Brain MRI 07/21/24 09:26 IMPRESSION: Constellation of findings most compatible with a right temporoparietal subacute/chronic infarction. Increased DWI signal within the left parietal lobe without other features favoring T2 shine through artifact. Correlate with clinical examination to exclude a concurrent left parietal infarction. Parenchymal atrophy and chronic microvascular ischemia. Reading Location: [facility] Physical Exam Const oriented x3, no apparent distress and healthy appearing Constitutional Narrative: Patient is lethargic but does open his eyes to voice and nods his head, he does not carry on a conversation General Appearance: cooperative, well kempt and well developed Orientation / Consciousness: lethargic HEENT normocephalic, head/scalp atraumatic and moist oral mucous membranes Eyes PERRL, EOMs intact bilaterally and conjunctivae normal Neck supple, no JVD, thyroid normal and no carotid bruits General: trachea midline Resp normal respiratory effort, no retractions and no use of accessory muscles Resp Narrative: Breath sounds are distant bilaterally Auscultation: Negative for rales, rhonchi or wheezes Cardio regular rate, regular rhythm, S1 normal heart sound, S2 normal heart sound, no murmurs, no rub and no gallops GI normal to inspection, nondistended, normoactive bowel sounds, soft to palpation, non-tender and non-distended Extremity no clubbing, cyanosis or edema Skin no rashes or lesions noted General Skin Exam: no breakdown Neuro CN's II-XII intact bilaterally and moves all extremities Neuro Narrative: Lethargic, in no distress Psych Psych Narrative: Lethargic Assessment & Plan Assessment/Plan (1) Septic shock: PLAN: Plan 1. Septic shock-secondary to suspected pneumonia-continue broad-spectrum antibiotics at this time, patient is off pressor agents #2 acute hypoxic respiratory failure-probably secondary to pneumonia, pulse ox will be monitored #3 metabolic encephalopathy with concerns for recent stroke-neurology will be consulted to see the patient #4 acute kidney injury-patient's creatinine today was 3.48, labs will be monitored #5 cerebrovascular disease-possible acute left parietal stroke and subacute/chronic stroke right temporal parietal-neurology will see the patient, continue 81 mg aspirin and statin Total clinical time spent by myself addressing the patient's medical issues, reviewing all of his data, and collaborating with patient's care team: 35-minute Charges/Coding Visit Charges Inpatient E&M: 84544 Subs Hosp L2
[2024-07-21 17:46] LABS: Bedside Glucose 306 mg/dL (74-106)
[2024-07-21] MEDS: Buprenorphine HCl 2 MG TAB.SUBL SL (20:53)
[2024-07-21] MEDS: Insulin Glargine-YFGN 100 UNIT/ML Pen 35 UNIT SC (21:48)
[2024-07-21 23:48] LABS: Bedside Glucose 340 mg/dL (74-106)
[2024-07-22] VITALS (44 sets, daily range): BP systolic 86–154; BP diastolic 42–85; PULSE 46–79; RESP 9–18; TEMP 36.2–36.6; O2SAT 92–98; BMI 35.6
[2024-07-22] MEDS: Insulin Lispro 100 UNIT/ML INSULN.PEN SC ×5 (00:14→23:05)
[2024-07-22 00:56] LABS: Bedside Glucose 355 mg/dL (74-106)
[2024-07-22] MEDS: Ipratropium/Albuterol Sulfate 3 ML AMPUL.NEB INHALATION ×4 (02:37→19:25)
[2024-07-22 04:00] LABS: Absolute Neutrophil Count 13.1 X10^3/uL (2.0-7.7); Basophil# 0.01 X10^3/uL; Basophil% 0.1 % (0-1); Hematocrit 34.1 % (40-54); Hemoglobin 10.4 g/dL (13.0-16.5); Lymphocyte % 1.5 % (19-41); Mean Corp Hgb Conc 30.5 g/dL (32-36); Mean Corpuscular Hgb 28.3 pg (27.0-32.0); Mean Corpuscular Volume 92.9 fL (80-94); Mean Platelet Vol. 10.4 fl (6.2-12.0); Monocyte# 0.36 X10^3/uL; Monocyte% 2.6 % (0-10); NRBC Flagged by Analyzer 0 % (0-5); Neutrophil # 13.11 X10^3/uL (2.7-7.7); Neutrophil % 95.2 % (47-70); POSITIVE DIFFERENTIAL YES; Platelet Count 243 K/mm3 (150-450); RBC Distribution Width CV 14.9 % (11.6-14.6); RBC Distribution Width SD 50.7 fl (35.1-43.9); Red Blood Count 3.67 M/mm3 (4.6-6.2); White Blood Count 13.8 K/mm3 (4.4-11.0)
[2024-07-22 04:23] LABS: Anion Gap 5 (5-15); BUN 60 mg/dL (7-18); BUN/Creat Ratio 21.8 RATIO (10-20); Calcium,Total 9.1 mg/dL (8.5-10.1); Chloride 118 mmol/L (98-107); Creatinine, Serum 2.75 mg/dL (0.70-1.30); EST Glomerular Filtration Rate 24 mL/min (>60); Est Glom Filt Rate - Afr Amer 29 mL/min (>60); Glucose 401 mg/dL (74-106); Potassium 4.1 mmol/L (3.5-5.1); Sodium Level 146 mmol/L (136-145)
[2024-07-22 04:25] LABS: Vancomycin, Random Level 11.3 ug/mL (0.0-15.0)
--- NOTE | 2024-07-22 05:05 | PCM.RX.CS ---
Consult Antibiotic Management Pharmacy has been consulted to manage selected antibiotic: Vancomycin Type of Intervention Type of Consult: Follow-up Suspected Infection Suspected Infection: Sepsis Labs Labs: Sodium 146 mmol/L (136-145) H 07/22/24 03:45 Potassium 4.1 mmol/L (3.5-5.1) 07/22/24 03:45 Chloride 118 mmol/L (98-107) H 07/22/24 03:45 Carbon Dioxide 24.0 mmol/L (21.0-32.0) 07/22/24 03:45 Anion Gap 5 (5-15) 07/22/24 03:45 BUN 60 mg/dL (7-18) H 07/22/24 03:45 Creatinine 2.75 mg/dL (0.70-1.30) H 07/22/24 03:45 Est GFR (MDRD) Af Amer 29 mL/min (>60) L 07/22/24 03:45 Est GFR (MDRD) Non-Af 24 mL/min (>60) L 07/22/24 03:45 BUN/Creatinine Ratio 21.8 RATIO (10-20) H 07/22/24 03:45 Glucose 401 mg/dL (74-106) H 07/22/24 03:45 Random Vancomycin 11.3 ug/mL (0.0-15.0) 07/22/24 03:45 Microbiology Microbiology: Microbiology 07/19/24 23:49 Urine, Random Urine Culture - Final GNR Poss Pseudomonas sp Presumptive C albicans 07/20/24 06:14 Urine Catheter - Lane Legionella Antigen - Final 07/20/24 06:14 Urine Catheter - Lane Streptococcus pneumoniae Antigen (M - Final 07/19/24 23:52 Mucosa - Nose SARS-CoV-2, Influenza & RSV (PCR) - Final Dosing Weight Weight used for dosin kg Estimated Creatinine Clearance Estimated Creatinine Clearance: 27 Goal Trough Goal Trough: 15-20 mcg/mL Pharmacy Plan for Drug Dosing Pharmacy Plan for Drug Dosing: Random vancomycin level drawn 07/22/24 was 11.3. With improvement to renal function (CrCl=27), will initiate routine dosing at 1250mg q24h. A trough level will be drawn prior to third dose. Pharmacy Service will continue to monitor and adjust dosing as required. Follow-Up Labs Follow-Up Labs: Trough: Vancomycin Date/Time Labs Ordered Labs to be done on [date and time ordered]: 07/24/24 @0589
[2024-07-22] MEDS: TITRATION PARAMETER CHANGE 1 EACH IV (05:38)
[2024-07-22] MEDS: Dextrose 5%-Water (1000mL Bag) 1,000 ML 125 ML IV ×3 (05:38→21:38)
[2024-07-22] MEDS: Vancomycin HCl 1,250 MG in 0.9% Normal Saline (250mL Bag) 250 ML 167 MG IV (05:38)
[2024-07-22 06:06] LABS: Bedside Glucose 347 mg/dL (74-106)
--- NOTE | 2024-07-22 07:23 | PCM.PN.INT ---
Assessment & Plan Assessment/Plan (1) Septic shock: PLAN: Plan RECOMMENDATIONS: 1. Continue empiric antibiotics as ordered. 2. Continue PAP therapy as ordered. 3. Continue bronchodilators and IV steroids. 4. Continue D5W given hypernatremia. 5. Continue Lovenox for DVT prophylaxis. 6. EEG and neurology consultation are currently pending. IMPRESSIONS: 1. Septic shock The patient presented to the hospital with sepsis due to suspected pneumonia +/- UTI with evidence of sepsis related organ dysfunction as evidenced by acute respiratory failure requiring noninvasive positive pressure ventilatory support, acute kidney injury, fluid refractory hypotension requiring vasopressor support and altered mental status. The patient did ultimately receive IV fluids, but inevitably required vasopressor initiation to maintain hemodynamic stability. As of the morning of July 22, the patient has been weaned from Levophed. Urine cultures are not consistent with UTI. However, the patient will remain on antimicrobials to cover for possible pneumonia. 2. Acute hypoxemic respiratory failure Clinical concern for underlying pneumonia as precipitating etiology. Prior pulmonary function studies did not demonstrate evidence of COPD. However, these tests were last completed in 2018. Plan to continue PAP therapy for now and wean FiO2 to maintain oxygen saturations at or above 90%. Antimicrobials will be continued as ordered. 3. Acute on chronic kidney disease Improving. Most likely prerenal in etiology in the setting of #1. Continue current supportive care. Continue to monitor urine output. There is no current indication for renal replacement therapy. 4. Encephalopathy Most likely related to presenting infection in the setting of #1 with accompanying metabolic derangements. The patient's CT head did reveal a nonhemorrhagic right temporal occipital infarction, which appears to be more of a chronic finding based upon comparison to outside hospital imaging. Given the patient's lack of improvement with noninvasive positive pressure ventilatory support, MRI brain was obtained which demonstrated findings compatible with a right temporoparietal subacute/chronic infarction. Given the patient's failure to improve from a mentation perspective, will obtain neurology consultation and EEG. 5. History of sleep apnea/paroxysmal atrial fibrillation/chronic kidney disease/diabetes mellitus/obesity/hypertension Complicates care, management, recovery and prognosis. Continue to hold home antihypertensives for now. The patient is to remain n.p.o. pending improvement in his mental state and respiratory status. CODE STATUS: DNR CCA without intubation (confirmed with family) TIME: 32 minutes of critical care time, independent of procedures, was spent addressing the patient's septic shock, acute respiratory failure with hypoxemia, acute on chronic kidney disease, metabolic encephalopathy, review of all data and collaboration with the care team. Subjective Subjective The patient was seen and examined at the bedside this morning. Events from the last 24 hours have been reviewed. The patient is currently afebrile, hemodynamically stable and maintaining appropriate oxygen saturations on BiPAP. There has been no discernible change in the patient's neurologic status since yesterday. White blood cell count is elevated at 14,000 with a hemoglobin of 10.4 g/dL and platelet count of 243,000. Sodium has improved to 146 with a chloride of 118, BUN of 60 and creatinine of 2.75, which is improved from yesterday. MRI brain completed yesterday demonstrated a right temporoparietal subacute/chronic infarction. Consultation was placed to neurology with EEG currently underway this morning. Objective Data Objective Data The patient's most recent lab work, culture data and imaging studies have all been personally reviewed. Surface echocardiogram from March 2024 demonstrated normal LV size and function with an ejection fraction of 65%. Preliminary urine culture is demonstrating growth of a gram-negative cata. However, there is less than 1000 CFU per mL. Blood cultures have not demonstrated any growth to date. Vital Signs: Vital Signs Temp Pulse Resp BP Pulse Ox O2 Del Method O2 Flow Rate 97.6 F L 64 14 125/65 H 96 Bi-pap 4 07/22/24 04:00 07/22/24 07:09 07/22/24 07:09 07/22/24 07:00 07/22/24 07:09 07/22/24 07:00 07/21/24 21:00 FiO2 40 07/22/24 07:09 Oxygen Flow Rate (L/min) 4 Oxygen Delivery Method Bi-pap Weight: 262 lb 12.8 oz Body Mass Index (BMI) 35.6 Intake & Output: Intake and Output for Last 24 Hours 07/20/24 07/21/24 07/22/24 23:59 23:59 23:59 Intake Total 6444.89 / 6449.59 3168.02 / 3168.02 1053.21 / 1053.21 Output Total 3000 / 3000 2050 / 2850 800 / 800 Balance 3444.89 / 3449.59 1118.02 / 318.02 253.21 / 253.21 Lab / Micro Data Attestation: I reviewed the patient's lab results. 07/22/24 03:45 07/22/24 03:45 Labs: Laboratory Results - last 24 hr 07/21/24 10:30: Ammonia 12.0 07/21/24 11:59: POC Glucose 326 H 07/21/24 17:24: POC Glucose 306 H 07/21/24 21:45: POC Glucose 340 H 07/22/24 00:12: POC Glucose 355 H 07/22/24 03:45: WBC 13.8 H, RBC 3.67 L, Hgb 10.4 L, Hct 34.1 L, MCV 92.9, MCH 28.3, MCHC 30.5 L, RDW Std Deviation 50.7 H, RDW Coeff of Hilary 14.9 H, Plt Count 243, MPV 10.4, Immature Gran % (Auto) 0.600, Neut % (Auto) 95.2 H, Lymph % (Auto) 1.5 L, Sabine % (Auto) 2.6, Eos % (Auto) 0.0, Baso % (Auto) 0.1, Absolute Neuts (auto) 13.1 H, Absolute Lymphs (auto) 0.20 L, Nucleated RBC % 0, Sodium 146 H, Potassium 4.1, Chloride 118 H, Carbon Dioxide 24.0, Anion Gap 5, BUN 60 H, Creatinine 2.75 H, Estim Creat Clear Calc 27.00, Est GFR (MDRD) Af Amer 29 L, Est GFR (MDRD) Non-Af 24 L, BUN/Creatinine Ratio 21.8 H, Glucose 401 H, Calcium 9.1, Random Vancomycin 11.3 07/22/24 05:36: POC Glucose 347 H Micro: Microbiology 07/19/24 23:49 Urine, Random Urine Culture - Final GNR Poss Pseudomonas sp Presumptive C albicans 07/20/24 06:14 Urine Catheter - Lane Legionella Antigen - Final 07/20/24 06:14 Urine Catheter - Lane Streptococcus pneumoniae Antigen (M - Final 07/19/24 23:52 Mucosa - Nose SARS-CoV-2, Influenza & RSV (PCR) - Final ABG Data ABG results: ABG 07/21/24 08:33 Specimen Type ART Sample Site L Brach pH 7.31 L Bicarbonate Actual 22.6 Total CO2 24 Base Excess -4 L O2 Saturation 88 L O2 % 30.0 ABG pCO2 44.4 ABG pO2 59 L O2 Delivery Device Not entered Vent Mode Not entered Clinical Comments 15 8 Radiography Diagnostic Testing: Radiology Impression Brain MRI 07/21/24 09:26 IMPRESSION: Constellation of findings most compatible with a right temporoparietal subacute/chronic infarction. Increased DWI signal within the left parietal lobe without other features favoring T2 shine through artifact. Correlate with clinical examination to exclude a concurrent left parietal infarction. Parenchymal atrophy and chronic microvascular ischemia. Reading Location: [facility] Physical Exam Const Constitutional Narrative: Somnolent and minimally responsive, only opening eyes to painful stimulation. General Appearance: lethargic and ill appearing HEENT normocephalic and head/scalp atraumatic Eyes PERRL, EOMs intact bilaterally and conjunctivae normal Neck supple General: trachea midline and CVC in place Chest inspection of chest normal Resp Auscultation: diminished lung sounds; Negative for rales, rhonchi or wheezes Cardio S1 normal heart sound and S2 normal heart sound Rate: bradycardia GI normal to inspection, nondistended, normoactive bowel sounds Extremity General Extremity: edema; Negative for clubbing Skin General Skin Exam: venous stasis and dermatitis Neuro CN's II-XII intact bilaterally and no focal motor deficits Psych Mood & Affect: flat affect Charges/Coding Procedures Hospitalists Procedures: 12117 Critical Care 1st Hr
--- NOTE | 2024-07-22 08:15 | NEURO.CONS ---
Assessment and Plan: Neuro Assessment/Plan WADE HERNANDEZ is a 83 M with a past medical history of recent stroke, HTN, HLD, CKD, neuropathy, being evaluated by Teleneurology for persistent AMS. PAtient with confusion in setting of initially being hypercalcemic, having new UTI, hypernatremia and MARLON on CKD with uremia. Most of these metabolic derrangements having improved except the uremia. Patient has been somnolent throughout the hospital stay with little improvement. On exam, patient with L sided weakness, severe somnolence and does not stay awake. He is L handed. Diagnosis: likely toxic metabolic encephalopathy Plan: - EEG with severe slowing, if no improvement in 48 hrs consider repeating - continue to correct hypernatremia, hyperglycemia, uremia - maintaim q 3 day bowel movements - avoid dehydration - delirium precautions with lights on during the day and sitting up in bed Will continue to follow I personally attended this patient and spent a total time of 45minutes evaluating this patient including clinical assessment, review of chart, medical history imaging, and determining appropriate treatment and workup. HPI Consult Data Date of Consult: 07/22/24 HPI Narrative HPI Narrative: PAtient admitted 07/20 with sepsis due to suspected pneumonia +/- UTI with evidence of sepsis related organ dysfunction as evidenced by acute respiratory failure requiring noninvasive positive pressure ventilatory support, acute kidney injury, fluid refractory hypotension requiring vasopressor support and altered mental status. The patient did ultimately receive IV fluids, but inevitably required vasopressor initiation to maintain hemodynamic stability. Plan to continue Levophed as tolerated. The patient has been initiated on appropriate broad-spectrum antimicrobial therapy, pending infectious workup. Remains altered, MRI Brain unrevealing. Review of patient labs includes persistent uremia, improving hypernatremia, worsening blood glucose, initially elevated calcium (11 on correction) currently improving. She has a pseudomonas UTI Discussed with family at bedside, patient never fully recovered from stroke last year. He is left handed, still not able to use his left hand well, very weak. Uses a wheelchair, was still in a rehab facility. [facility] Medical History History of CVA (cerebrovascular accident) (03/2020) Right bundle branch block (RBBB) with left anterior fascicular block Atherosclerosis of coronary artery without angina pectoris Fracture of humeral head, left, closed Stage 3b chronic kidney disease GERD (gastroesophageal reflux disease) Neuropathic pain BPH (benign prostatic hyperplasia) Depression Stroke Debility Duodenal ulcer History of pulmonary embolism (07/30/19) Essential (primary) hypertension Hypotension MARLON (acute kidney injury) Acute blood loss anemia Super obesity Noncompliance Family history of colon cancer Colon polyps Chronic renal failure, stage 3 (moderate) NILO (obstructive sleep apnea) HLD (hyperlipidemia) History of other venous thrombosis and embolism History of depression Type II diabetes mellitus, uncontrolled COPD (chronic obstructive pulmonary disease) Home Medications ?Medication ?Instructions ?Recorded ?Last Taken ?Type tamsulosin 0.4 mg capsule 0.8 mg PO DAILY prostate 07/08/16 04/02/24 History isosorbide mononitrate 30 mg 30 mg PO QHS heart 03/12/18 04/03/24 History tablet,extended release 24 hr atorvastatin 40 mg tablet 40 mg PO QHS cholesterol 04/02/20 04/02/24 History fluticasone propionate 50 1 spray NASAL BID Sinus 04/11/20 04/01/24 History mcg/actuation nasal spray,suspension acetaminophen 325 mg tablet 650 mg (2 x 325 mg) PO Q6H PRN PRN 12/07/20 Unknown Rx (Tylenol) Pain Score 1-10/Temp > 100.7 F #0 tabs apixaban 2.5 mg tablet (Eliquis) 2.5 mg PO BID #60 tabs 12/07/20 04/03/24 Rx escitalopram oxalate 20 mg tablet 20 mg PO QHS depression 04/03/24 Unknown History insulin glargine 100 unit/mL (3 45 unit subcut QHS dm 04/03/24 04/02/24 History mL) subcutaneous pen amlodipine 2.5 mg tablet 2.5 mg PO DAILY HTN 07/20/24 Unknown History aspirin 81 mg tablet,delayed 81 mg PO DAILY 07/20/24 Unknown History release (Adult Aspirin Regimen) carvedilol 3.125 mg tablet 3.125 mg PO BID HTN 07/20/24 Unknown History cholestyramine-aspartame 4 gram 1 ea PO DAILY cholesterol 07/20/24 Unknown History oral powder for susp in a packet (Cholestyramine Light) clindamycin HCl 300 mg capsule 300 mg PO 3XD infection 07/20/24 Unknown History dapagliflozin propanediol 10 mg 10 mg PO LUNCH diabetes 07/20/24 Unknown History tablet (Farxiga) furosemide 40 mg tablet 40 mg PO BID edema 07/20/24 Unknown History gabapentin 100 mg capsule 100 mg PO TID neuropathy 07/20/24 Unknown History insulin aspart U-100 100 unit/mL See Protocol subcut TIDCM diabetes 07/20/24 Unknown History (3 mL) subcutaneous pen (Novolog FlexPen U-100 Insulin aspart) ipratropium 0.5 mg-albuterol 3 mg 3 ml inhalation Q8H PRN shortness 07/20/24 Unknown History (2.5 mg base)/3 mL nebulization of breath or wheezing soln losartan 25 mg tablet 25 mg PO DAILY HTN 07/20/24 Unknown History Lactobacillus acidophilus 1 tab PO DAILY probiotic 07/22/24 Unknown History (Acidophilus chewable tablet) albuterol sulfate 90 mcg/actuation 1 puff inhalation Q6H PRN PRN SOB 07/22/24 Unknown History aerosol inhaler or Wheezing budesonide-formoterol HFA 80 2 inh inhalation BID SOB 07/22/24 Unknown History mcg-4.5 mcg/actuation aerosol inhaler (Breyna) cholecalciferol (vitamin D3) 125 125 mcg PO DAILY supplement 07/22/24 Unknown History mcg (5,000 unit) tablet (Vitamin D3) ferrous sulfate 325 mg (65 mg 325 mg PO BID supplement 07/22/24 Unknown History iron) tablet melatonin 3 mg tablet 3 mg PO QHS sleep 07/22/24 Unknown History multivitamin (Multiple Vitamins 1 tab PO DAILY health maintenance 07/22/24 Unknown History tablet) polyethylene glycol 3350 17 17 g PO DAILY PRN constipation 07/22/24 Unknown History gram/dose oral powder (Miralax) Allergy/AdvReac Type Severity Reaction Status Date / Time MARGIE Inhibitors Allergy Unknown edema Verified 07/19/24 21:31 cefepime Allergy weakness Verified 07/19/24 21:31 and falling ipodate (Ipodate) Allergy Shortness Verified 07/19/24 21:31 of breath levofloxacin (Levofloxacin) Allergy Anaphylaxis Verified 07/19/24 21:31 lisinopril Allergy Shortness Verified 07/19/24 21:31 of breath ofloxacin Allergy Other Verified 07/19/24 21:31 Quinolones Allergy Anaphylaxis Verified 07/19/24 21:31 Family History Father Colon cancer Mother Cancer Sister CAD (coronary artery disease) Surgical History History of left heart catheterization (07/11/19) History of loop recorder (03/2018) History of esophagogastroduodenoscopy (EGD) Social History Smoking Status: Unknown if ever smoked how long ago did patient quit smoking: cigars, smoked 2 a day, quit in 2007 Vital Signs Vital Signs Vital Signs: 07/21/24 08:30 07/21/24 08:45 07/21/24 09:00 Temperature 97.3 F L Temperature Source Core Pulse Rate 71 Respiratory Rate 21 H Respiratory Effort Respiratory Depth Respiratory Pattern Blood Pressure 113/52 L 100/50 L 108/58 L Blood Pressure Mean 72 66 74 Blood Pressure Source Blood Pressure Position Blood Pressure Location Pulse Ox 96 Oxygen Delivery Method Bi-pap Oxygen Flow Rate (L/min) Fraction of Inspired Oxygen (FIO2) 35 07/21/24 09:30 07/21/24 10:00 07/21/24 10:15 Temperature Temperature Source Pulse Rate 73 Respiratory Rate 15 Respiratory Effort Respiratory Depth Respiratory Pattern Blood Pressure 109/48 L 151/74 H 142/68 H Blood Pressure Mean 68 99 92 Blood Pressure Source Blood Pressure Position Blood Pressure Location Pulse Ox 100 Oxygen Delivery Method Bi-pap Oxygen Flow Rate (L/min) Fraction of Inspired Oxygen (FIO2) 35 07/21/24 10:30 07/21/24 10:30 07/21/24 10:45 Temperature Temperature Source Pulse Rate 71 Respiratory Rate Respiratory Effort Respiratory Depth Respiratory Pattern Blood Pressure 113/41 L 160/64 H Blood Pressure Mean 65 96 Blood Pressure Source Blood Pressure Position Blood Pressure Location Pulse Ox Oxygen Delivery Method Oxygen Flow Rate (L/min) Fraction of Inspired Oxygen (FIO2) 07/21/24 11:00 07/21/24 11:15 07/21/24 11:30 Temperature Temperature Source Pulse Rate 74 Respiratory Rate Respiratory Effort Respiratory Depth Respiratory Pattern Blood Pressure 160/63 H 245/188 H 175/155 H Blood Pressure Mean 95 207 161 Blood Pressure Source Blood Pressure Position Blood Pressure Location Pulse Ox 94 Oxygen Delivery Method High Flow Oxygen Flow Rate (L/min) 15 Fraction of Inspired Oxygen (FIO2) 07/21/24 11:45 07/21/24 11:45 07/21/24 12:00 Temperature 97.5 F L Temperature Source Core Pulse Rate 76 73 Respiratory Rate 19 H 15 Respiratory Effort Respiratory Depth Respiratory Pattern Blood Pressure 137/72 H 122/63 H Blood Pressure Mean 93 82 Blood Pressure Source Monitor Blood Pressure Position Semi-Fowlers Blood Pressure Location Right Arm Pulse Ox 94 95 Oxygen Delivery Method Bi-pap Oxygen Flow Rate (L/min) Fraction of Inspired Oxygen (FIO2) 35 35 07/21/24 12:00 07/21/24 12:30 07/21/24 13:00 Temperature Temperature Source Pulse Rate 70 Respiratory Rate 12 Respiratory Effort Normal Non-Labored Respiratory Depth Normal Respiratory Pattern Normal Blood Pressure 124/64 H 124/63 H Blood Pressure Mean 84 83 Blood Pressure Source Blood Pressure Position Blood Pressure Location Pulse Ox 96 Oxygen Delivery Method Bi-pap Bi-pap Oxygen Flow Rate (L/min) Fraction of Inspired Oxygen (FIO2) 35 35 07/21/24 13:30 07/21/24 13:30 07/21/24 13:30 Temperature Temperature Source Pulse Rate 75 69 Respiratory Rate 14 14 Respiratory Effort Respiratory Depth Respiratory Pattern Blood Pressure 132/60 H Blood Pressure Mean 84 Blood Pressure Source Blood Pressure Position Blood Pressure Location Pulse Ox 99 Oxygen Delivery Method Oxygen Flow Rate (L/min) Fraction of Inspired Oxygen (FIO2) 35 07/21/24 14:00 07/21/24 15:00 07/21/24 15:30 Temperature Temperature Source Pulse Rate 68 71 71 Respiratory Rate 14 18 Respiratory Effort Respiratory Depth Respiratory Pattern Blood Pressure 123/59 H 121/59 H Blood Pressure Mean 80 79 Blood Pressure Source Blood Pressure Position Blood Pressure Location Pulse Ox 96 97 Oxygen Delivery Method Bi-pap Bi-pap Oxygen Flow Rate (L/min) Fraction of Inspired Oxygen (FIO2) 35 35 07/21/24 15:57 07/21/24 16:00 07/21/24 16:24 Temperature Temperature Source Pulse Rate 71 71 Respiratory Rate 14 18 Respiratory Effort Normal Non-Labored Respiratory Depth Normal Respiratory Pattern Normal Blood Pressure 129/72 H Blood Pressure Mean 91 Blood Pressure Source Blood Pressure Position Blood Pressure Location Pulse Ox 98 100 Oxygen Delivery Method Bi-pap Bi-pap Oxygen Flow Rate (L/min) Fraction of Inspired Oxygen (FIO2) 35 35 35 07/21/24 17:00 07/21/24 18:00 07/21/24 19:00 Temperature Temperature Source Pulse Rate 70 71 69 Respiratory Rate 13 14 17 Respiratory Effort Respiratory Depth Respiratory Pattern Blood Pressure 123/63 H 122/67 H 127/64 H Blood Pressure Mean 83 85 85 Blood Pressure Source Monitor Monitor Monitor Blood Pressure Position Semi-Fowlers Semi-Fowlers Semi-Fowlers Blood Pressure Location Right Arm Right Arm Right Arm Pulse Ox 100 99 98 Oxygen Delivery Method Bi-pap Bi-pap Bi-pap Oxygen Flow Rate (L/min) Fraction of Inspired Oxygen (FIO2) 35 35 35 07/21/24 19:02 07/21/24 19:02 07/21/24 20:00 Temperature Temperature Source Pulse Rate 71 71 Respiratory Rate 14 14 Respiratory Effort Normal Non-Labored Respiratory Depth Normal Respiratory Pattern Normal Normal Normal Blood Pressure Blood Pressure Mean Blood Pressure Source Blood Pressure Position Blood Pressure Location Pulse Ox 99 Oxygen Delivery Method Bi-pap Oxygen Flow Rate (L/min) Fraction of Inspired Oxygen (FIO2) 30 35 07/21/24 20:00 07/21/24 21:00 07/21/24 22:00 Temperature 97.8 F Temperature Source Core Pulse Rate 74 58 L 58 L Respiratory Rate 16 15 15 Respiratory Effort Respiratory Depth Respiratory Pattern Blood Pressure 135/67 H 114/55 L 121/71 H Blood Pressure Mean 89 74 87 Blood Pressure Source Monitor Monitor Monitor Blood Pressure Position Semi-Fowlers Semi-Fowlers Semi-Fowlers Blood Pressure Location Right Arm Right Arm Right Arm Pulse Ox 96 92 94 Oxygen Delivery Method Bi-pap Nasal Cannula Bi-pap Oxygen Flow Rate (L/min) 4 Fraction of Inspired Oxygen (FIO2) 35 35 07/21/24 22:57 07/21/24 23:00 07/22/24 00:00 Temperature 97.8 F Temperature Source Core Pulse Rate 53 L 65 66 Respiratory Rate 15 13 14 Respiratory Effort Respiratory Depth Respiratory Pattern Normal Blood Pressure 113/54 L 111/60 Blood Pressure Mean 73 77 Blood Pressure Source Monitor Monitor Blood Pressure Position Semi-Fowlers Semi-Fowlers Blood Pressure Location Right Arm Right Arm Pulse Ox 94 95 97 Oxygen Delivery Method Bi-pap Bi-pap Oxygen Flow Rate (L/min) Fraction of Inspired Oxygen (FIO2) 30 35 35 07/22/24 00:00 07/22/24 00:00 07/22/24 01:00 Temperature 97.8 F Temperature Source Core Pulse Rate 66 65 Respiratory Rate 14 17 Respiratory Effort Normal Non-Labored Respiratory Depth Normal Respiratory Pattern Normal Blood Pressure 111/60 93/58 L Blood Pressure Mean 77 69 Blood Pressure Source Monitor Monitor Blood Pressure Position Semi-Fowlers Semi-Fowlers Blood Pressure Location Right Arm Right Arm Pulse Ox 97 94 Oxygen Delivery Method Bi-pap Bi-pap Bi-pap Oxygen Flow Rate (L/min) Fraction of Inspired Oxygen (FIO2) 35 35 35 07/22/24 02:00 07/22/24 02:33 07/22/24 02:33 Temperature Temperature Source Pulse Rate 62 50 L 50 L Respiratory Rate 15 14 14 Respiratory Effort Respiratory Depth Respiratory Pattern Normal Normal Blood Pressure 99/61 Blood Pressure Mean 73 Blood Pressure Source Monitor Blood Pressure Position Semi-Fowlers Blood Pressure Location Right Arm Pulse Ox 94 95 Oxygen Delivery Method Bi-pap Oxygen Flow Rate (L/min) Fraction of Inspired Oxygen (FIO2) 35 30 07/22/24 03:00 07/22/24 03:15 07/22/24 03:30 Temperature Temperature Source Pulse Rate 50 L Respiratory Rate 14 Respiratory Effort Respiratory Depth Respiratory Pattern Blood Pressure 86/42 L 128/64 H 120/64 Blood Pressure Mean 56 85 82 Blood Pressure Source Monitor Monitor Monitor Blood Pressure Position Blood Pressure Location Pulse Ox 95 Oxygen Delivery Method Bi-pap Oxygen Flow Rate (L/min) Fraction of Inspired Oxygen (FIO2) 07/22/24 03:45 07/22/24 04:00 07/22/24 04:00 Temperature 97.6 F L Temperature Source Core Pulse Rate 66 Respiratory Rate 10 L Respiratory Effort Normal Non-Labored Respiratory Depth Normal Respiratory Pattern Normal Blood Pressure 108/56 L 129/69 H Blood Pressure Mean 73 89 Blood Pressure Source Monitor Monitor Blood Pressure Position Blood Pressure Location Pulse Ox 95 Oxygen Delivery Method Bi-pap Bi-pap Oxygen Flow Rate (L/min) Fraction of Inspired Oxygen (FIO2) 35 35 07/22/24 04:15 07/22/24 04:30 07/22/24 04:40 Temperature Temperature Source Pulse Rate 48 L Respiratory Rate 14 Respiratory Effort Respiratory Depth Respiratory Pattern Normal Blood Pressure 91/50 L 97/56 L Blood Pressure Mean 63 69 Blood Pressure Source Monitor Monitor Blood Pressure Position Blood Pressure Location Pulse Ox 93 Oxygen Delivery Method Oxygen Flow Rate (L/min) Fraction of Inspired Oxygen (FIO2) 40 07/22/24 04:45 07/22/24 05:00 07/22/24 05:30 Temperature Temperature Source Pulse Rate 50 L Respiratory Rate 12 Respiratory Effort Respiratory Depth Respiratory Pattern Blood Pressure 121/57 H 120/59 L 106/52 L Blood Pressure Mean 78 79 70 Blood Pressure Source Monitor Monitor Monitor Blood Pressure Position Blood Pressure Location Pulse Ox 94 Oxygen Delivery Method Bi-pap Oxygen Flow Rate (L/min) Fraction of Inspired Oxygen (FIO2) 40 07/22/24 06:00 07/22/24 06:15 07/22/24 06:30 Temperature Temperature Source Pulse Rate 51 L Respiratory Rate 14 Respiratory Effort Respiratory Depth Respiratory Pattern Blood Pressure 127/60 H 111/69 121/64 H Blood Pressure Mean 82 83 83 Blood Pressure Source Monitor Monitor Monitor Blood Pressure Position Blood Pressure Location Pulse Ox 95 Oxygen Delivery Method Bi-pap Oxygen Flow Rate (L/min) Fraction of Inspired Oxygen (FIO2) 40 07/22/24 06:45 07/22/24 07:00 07/22/24 07:09 Temperature Temperature Source Pulse Rate 63 63 Respiratory Rate 14 14 Respiratory Effort Respiratory Depth Respiratory Pattern Normal Blood Pressure 120/63 125/65 H Blood Pressure Mean 82 85 Blood Pressure Source Monitor Monitor Blood Pressure Position Blood Pressure Location Pulse Ox 96 Oxygen Delivery Method Bi-pap Oxygen Flow Rate (L/min) Fraction of Inspired Oxygen (FIO2) 40 07/22/24 07:09 Temperature Temperature Source Pulse Rate 64 Respiratory Rate 14 Respiratory Effort Respiratory Depth Respiratory Pattern Normal Blood Pressure Blood Pressure Mean Blood Pressure Source Blood Pressure Position Blood Pressure Location Pulse Ox 96 Oxygen Delivery Method Oxygen Flow Rate (L/min) Fraction of Inspired Oxygen (FIO2) 40 Weight Weight: 119.204 kg Body Mass Index (BMI) 35.6 EEG Results Procedure Details EEG Procedure Details: CLINICAL INTERPRETATION This routine EEG is indicative of severe encephalopathy. No epileptiform discharges or seizures were noted during this period of recording. Physical Exam Narrative Severely somnolent, arousable mostly by voice and noxious stim difficulty with L gaze but able to cross midline no facial asymmetry drift to bed in the LUE, RUE no drift to bed b/l LE not antigravity, the b/l LE withdraws to noxious stim with R>L withdrawal Lab / Micro Data 07/22/24 03:45 07/22/24 03:45 Labs: Laboratory Results - last 24 hr 07/21/24 10:30: Ammonia 12.0 07/21/24 11:59: POC Glucose 326 H 07/21/24 17:24: POC Glucose 306 H 07/21/24 21:45: POC Glucose 340 H 07/22/24 00:12: POC Glucose 355 H 07/22/24 03:45: WBC 13.8 H, RBC 3.67 L, Hgb 10.4 L, Hct 34.1 L, MCV 92.9, MCH 28.3, MCHC 30.5 L, RDW Std Deviation 50.7 H, RDW Coeff of Hilary 14.9 H, Plt Count 243, MPV 10.4, Immature Gran % (Auto) 0.600, Neut % (Auto) 95.2 H, Lymph % (Auto) 1.5 L, [place] % (Auto) 2.6, Eos % (Auto) 0.0, Baso % (Auto) 0.1, Absolute Neuts (auto) 13.1 H, Absolute Lymphs (auto) 0.20 L, Nucleated RBC % 0, Sodium 146 H, Potassium 4.1, Chloride 118 H, Carbon Dioxide 24.0, Anion Gap 5, BUN 60 H, Creatinine 2.75 H, Estim Creat Clear Calc 27.00, Est GFR (MDRD) Af Amer 29 L, Est GFR (MDRD) Non-Af 24 L, BUN/Creatinine Ratio 21.8 H, Glucose 401 H, Calcium 9.1, Random Vancomycin 11.3 07/22/24 05:36: POC Glucose 347 H Micro: Microbiology 07/19/24 22:18 Blood Culture (Wb) - Anticubital Left Blood Culture - Preliminary No growth in 48 hours. 07/19/24 22:14 Blood Culture (Wb) - Anticubital Right Blood Culture - Preliminary No growth in 48 hours. 07/19/24 23:49 Urine, Random Urine Culture - Final GNR Poss Pseudomonas sp Presumptive C albicans ABG Data ABG results: ABG 07/21/24 08:33 Specimen Type ART Sample Site L Brach pH 7.31 L Bicarbonate Actual 22.6 Total CO2 24 Base Excess -4 L O2 Saturation 88 L O2 % 30.0 ABG pCO2 44.4 ABG pO2 59 L O2 Delivery Device Not entered Vent Mode Not entered Clinical Comments 15 8 Imaging Radiology Impression Brain MRI 07/21/24 09:26 IMPRESSION: Constellation of findings most compatible with a right temporoparietal subacute/chronic infarction. Increased DWI signal within the left parietal lobe without other features favoring T2 shine through artifact. Correlate with clinical examination to exclude a concurrent left parietal infarction. Parenchymal atrophy and chronic microvascular ischemia. Reading Location: [facility] Active Medications Active Medications Active Medications: Current Medications Generic Name Dose Route Start Last Admin Trade Name Freq PRN Reason Stop Dose Admin Acetaminophen 650 mg 07/20/24 04:18 Acetaminophen 325 Mg Tablet PO Q6H PRN PRN Pain 1-10 or Fever Albuterol Sulfate 2.5 mg 07/20/24 06:05 Albuterol 2.5 Mg/3 Ml Vial.Neb. INHALATION Q4H PRN PRN Shortness of breath, wheezing Albuterol/Ipratropium 3 ml 07/20/24 08:30 07/22/24 07:08 Ipratropium/Albuterol Sulfate 3 Ml Ampul.Neb INHALATION 3 ml Q6H.RT FERNANDO Administration Atorvastatin Calcium 40 mg 07/20/24 10:00 07/21/24 07:32 Atorvastatin Calcium 40 Mg Tablet PO Not Given DAILY FERNANDO Cholestyramine Resin 4 gm 07/20/24 10:00 07/21/24 07:33 Cholestyramine/Sucrose 4 Gm/Packet PO Not Given DAILY FERNANDO Enoxaparin Sodium 30 mg 07/21/24 10:00 07/21/24 10:17 Enoxaparin 30 Mg/0.3 Ml Syringe SC 30 mg DAILY FERNANDO Administration Ferrous Sulfate 325 mg 07/20/24 12:00 07/21/24 10:26 Ferrous Sulfate 325 Mg Tablet PO Not Given DAILY@1200 FERNANDO Fluticasone Propionate 1 spray 07/20/24 10:00 07/21/24 08:02 Fluticasone 0.05% 1 Thurman Nasal.Sry NASAL 1 spray DAILY FERNANDO Administration Pantoprazole Sodium 40 mg/ 110 mls @ 330 mls/hr 07/20/24 04:30 07/21/24 12:00 Sodium Chloride IV Infused DAILY FERNANDO Infusion Sodium Chloride 100 mls @ 15 mls/hr 07/20/24 06:10 07/22/24 02:41 IV 0 mls/hr .Q6H40M PRN Infusion Saline Flush Sodium Chloride 100 mls @ 15 mls/hr 07/20/24 06:10 IV .Q6H40M PRN Additional IVPB Infusion Norepinephrine Bitartrate 8 mg 250 mls @ 9.375 mls/hr 07/20/24 06:35 07/22/24 07:00 / Sodium Chloride CONT INF 0 mcg/min .[id number] FERNANDO 0 mls/hr Titration Protocol 5 MCG/MIN Vancomycin IV-PHARMACY TO DOSE 500 mls @ 250 mls/hr 07/20/24 10:00 1 each/ Sodium Chloride IV PRN PRN Rx to Dose Protocol Meropenem 500 mg/ Sodium 60 mls @ 100 mls/hr 07/20/24 10:00 07/21/24 22:25 Chloride IV Infused Q12 FERNANDO Infusion Dextrose 1,000 mls @ 125 mls/hr 07/20/24 12:20 07/22/24 05:38 IV 125 mls/hr .Q8H FERNANDO Administration Vancomycin HCl 1,250 mg/ 275 mls @ 167 mls/hr 07/22/24 06:00 07/22/24 07:44 Sodium Chloride IV Infused Q24H FERNANDO Infusion Insulin Glargine 35 unit 07/20/24 22:00 07/21/24 21:48 Insulin Glargine-Yfgn 100 Unit/Ml Pen SC 35 unit QHS FERNANDO Administration Insulin Human Lispro 0 unit 07/21/24 12:00 07/22/24 05:37 Insulin Lispro 100 Unit/Ml Insuln.Pen SC 3 units Q6 FERNANDO Administration Protocol Methylprednisolone 60 mg 07/20/24 22:00 07/21/24 21:47 Methylprednisolone 125 Mg/2 Ml Vial IV 60 mg BID FERNANDO Administration Polyethylene Glycol 17 gm 07/20/24 10:00 07/21/24 07:32 Polyethylene Glycol 3350 17 Gm Packet PO Not Given DAILY FERNANDO Sodium Chloride 10 - 40 ml 07/20/24 06:10 07/20/24 10:30 0.9% Saline Lock 10 Ml Syringe IV 20 ml UD PRN Administration SALINE FLUSH Tamsulosin HCl 0.8 mg 07/20/24 10:00 07/21/24 07:32 Tamsulosin Hcl 0.4 Mg Capsule PO Not Given DAILY FERNANDO Vancomycin Protocol 1 lab 07/24/24 03:30 Vancomycin Trough/Random Due MC 07/24/24 07:30 DAILY FERNANDO
[2024-07-22] MEDS: 0.9% Saline Lock 10 ML Syringe IV (09:32)
[2024-07-22] MEDS: Meropenem 500 MG in 0.9% Normal Saline (50mL MB+) 50 ML 100 MG IV ×2 (09:34→21:38)
[2024-07-22] MEDS: Fluticasone 0.05% 1 SPRAY NASAL.SRY NASAL (09:36)
[2024-07-22] MEDS: MethylPREDNISolone 125 MG/2 ML Vial 60 MG IV ×2 (09:36→21:37)
[2024-07-22] MEDS: Enoxaparin 30 MG/0.3 ML Syringe SC (09:36)
--- NOTE | 2024-07-22 09:44 | CASEMGMT ---
Social Work SW attended ICU rounds. Pt is not ready for discharge at this time and will remain in the hospital over the weekend. Updates sent to [facility]. SW will follow up on Thursday. Plan: Return to [facility], precert will be needed. Has not been started at this time. KATHY Navarro
[2024-07-22] MEDS: Pantoprazole Sodium 40 MG in 0.9% Normal Saline (100mL MB+) 100 ML 330 MG IV (10:22)
[2024-07-22 12:07] LABS: Bedside Glucose 324 mg/dL (74-106)
--- NOTE | 2024-07-22 13:26 | PN.HOSP_ITS ---
Reason for Visit Reason for Visit: Diagnoses Sepsis, unspecified organism (07/20/24) Obesity, unspecified (07/20/24) Hyperosmolality and hypernatremia (07/20/24) Vascular dementia, unspecified severity, without behavioral disturbance, psychotic disturbance, mood disturbance, and anxiety (07/20/24) Obstructive sleep apnea (adult) (pediatric) (07/20/24) Encephalopathy, unspecified (07/20/24) Metabolic encephalopathy (07/20/24) Pneumonia, unspecified organism (07/20/24) Chronic obstructive pulmonary disease with (acute) exacerbation (07/20/24) Acute respiratory failure with hypoxia (07/20/24) Acute kidney failure, unspecified (07/20/24) Chronic kidney disease, stage 4 (severe) (07/20/24) Acute cystitis with hematuria (07/20/24) Severe sepsis with septic shock (07/20/24) Adverse effect of unspecified drugs, medicaments and biological substances, initial encounter (07/20/24) Personal history of transient ischemic attack (TIA), and cerebral infarction without residual deficits (07/20/24) Subjective Subjective Patient was seen and examined today, he was having an EEG at the time my examination, neurology is due to see the patient in consultation. Patient is a range minimally responsive to verbal and tactile stimuli Objective Data Objective Data Vital Signs: Vital Signs Temp Pulse Resp BP Pulse Ox O2 Del Method O2 Flow Rate 97.2 F L 49 L 12 115/59 L 97 Nasal Cannula 2 07/22/24 12:00 07/22/24 13:19 07/22/24 13:19 07/22/24 13:00 07/22/24 13:00 07/22/24 13:00 07/22/24 13:00 FiO2 40 07/22/24 07:09 Oxygen Flow Rate (L/min) 2 Oxygen Delivery Method Nasal Cannula Weight: 119.204 kg Body Mass Index (BMI) 35.6 Intake & Output: Intake and Output for Last 24 Hours 07/20/24 07/21/24 07/22/24 23:59 23:59 23:59 Intake Total 6444.89 / 6449.59 3168.02 / 3168.02 1538.96 / 1538.96 Output Total 3000 / 3000 2050 / 2850 1650 / 1650 Balance 3444.89 / 3449.59 1118.02 / 318.02 -111.04 / -111.04 Lab / Micro Data 07/22/24 03:45 07/22/24 03:45 Labs: Laboratory Results - last 24 hr 07/21/24 17:24: POC Glucose 306 H 07/21/24 21:45: POC Glucose 340 H 07/22/24 00:12: POC Glucose 355 H 07/22/24 03:45: WBC 13.8 H, RBC 3.67 L, Hgb 10.4 L, Hct 34.1 L, MCV 92.9, MCH 28.3, MCHC 30.5 L, RDW Std Deviation 50.7 H, RDW Coeff of Hilary 14.9 H, Plt Count 243, MPV 10.4, Immature Gran % (Auto) 0.600, Neut % (Auto) 95.2 H, Lymph % (Auto) 1.5 L, [place] % (Auto) 2.6, Eos % (Auto) 0.0, Baso % (Auto) 0.1, Absolute Neuts (auto) 13.1 H, Absolute Lymphs (auto) 0.20 L, Nucleated RBC % 0, Sodium 146 H, Potassium 4.1, Chloride 118 H, Carbon Dioxide 24.0, Anion Gap 5, BUN 60 H , Creatinine 2.75 H, Estim Creat Clear Calc 27.00, Est GFR (MDRD) Af Amer 29 L, Est GFR (MDRD) Non-Af 24 L, BUN/Creatinine Ratio 21.8 H, Glucose 401 H, Calcium 9.1, Random Vancomycin 11.3 07/22/24 05:36: POC Glucose 347 H 07/22/24 11:46: POC Glucose 324 H Micro: Microbiology 07/19/24 22:18 Blood Culture (Wb) - Anticubital Left Blood Culture - Preliminary No growth in 48 hours. 07/19/24 22:14 Blood Culture (Wb) - Anticubital Right Blood Culture - Preliminary No growth in 48 hours. 07/19/24 23:49 Urine, Random Urine Culture - Final GNR Poss Pseudomonas sp Presumptive C albicans 07/20/24 06:14 Urine Catheter - Lane Legionella Antigen - Final 07/20/24 06:14 Urine Catheter - Lane Streptococcus pneumoniae Antigen (M - Final 01/28/25 23:52 Mucosa - Nose SARS-CoV-2, Influenza & RSV (PCR) - Final Radiography Diagnostic Testing: Radiology Impression Brain MRI 07/21/24 09:26 IMPRESSION: Constellation of findings most compatible with a right temporoparietal subacute/chronic infarction. Increased DWI signal within the left parietal lobe without other features favoring T2 shine through artifact. Correlate with clinical examination to exclude a concurrent left parietal infarction. Parenchymal atrophy and chronic microvascular ischemia. Reading Location: [facility] Physical Exam Narrative Constitutional Narrative: Patient is lethargic but does open his eyes to voice and nods his head, he does not carry on a conversation General Appearance: cooperative, well kempt and well developed Orientation / Consciousness: lethargic HEENT normocephalic, head/scalp atraumatic and moist oral mucous membranes Eyes PERRL, EOMs intact bilaterally and conjunctivae normal Neck supple, no JVD, thyroid normal and no carotid bruits General: trachea midline Resp normal respiratory effort, no retractions and no use of accessory muscles Resp Narrative: Breath sounds are distant bilaterally Auscultation: Negative for rales, rhonchi or wheezes Cardio regular rate, regular rhythm, S1 normal heart sound, S2 normal heart sound, no murmurs, no rub and no gallops GI normal to inspection, nondistended, normoactive bowel sounds, soft to palpation, non-tender and non-distended Extremity no clubbing, cyanosis or edema Skin no rashes or lesions noted General Skin Exam: no breakdown Neuro CN's II-XII intact bilaterally and moves all extremities Neuro Narrative: Lethargic, in no distress Psych Psych Narrative: Lethargic Assessment & Plan Assessment/Plan (1) Septic shock: PLAN: Plan 1. Septic shock-secondary to suspected pneumonia-continue broad-spectrum antibiotics at this time, patient is off pressor agents #2 acute hypoxic respiratory failure-probably secondary to pneumonia, pulse ox will be monitored #3 metabolic encephalopathy with concerns for recent stroke-neurology will be consulted to see the patient, EEG was performed today #4 acute kidney injury-patient's creatinine today was 2.75, labs will be monitored #5 cerebrovascular disease-possible acute left parietal stroke and subacute/chronic stroke right temporal parietal-neurology will see the patient, continue 81 mg aspirin and statin Total clinical time spent by myself addressing the patient's medical issues, reviewing all of his data, and collaborating with patient's care team: 35-minute Charges/Coding Visit Charges Inpatient E&M: 02354 Subs Hosp L2
[2024-07-22 17:33] LABS: Bedside Glucose 332 mg/dL (74-106)
[2024-07-22] MEDS: Insulin Glargine-YFGN 100 UNIT/ML Pen 35 UNIT SC (23:06)
[2024-07-22 23:27] LABS: Bedside Glucose 317 mg/dL (74-106)
[2024-07-23] VITALS (27 sets, daily range): BP systolic 119–161; BP diastolic 60–77; PULSE 48–74; RESP 10–19; TEMP 36.3–36.6; O2SAT 92–98; BMI 36.6
[2024-07-23] MEDS: Ipratropium/Albuterol Sulfate 3 ML AMPUL.NEB INHALATION ×4 (01:51→19:07)
[2024-07-23] MEDS: 0.9% Saline Lock 10 ML Syringe IV (05:10)
[2024-07-23] MEDS: Dextrose 5%-Water (1000mL Bag) 1,000 ML 125 ML IV ×3 (05:14→20:46)
[2024-07-23] MEDS: Insulin Lispro 100 UNIT/ML INSULN.PEN SC ×4 (05:14→23:06)
[2024-07-23] MEDS: Vancomycin HCl 1,250 MG in 0.9% Normal Saline (250mL Bag) 250 ML 167 MG IV (05:14)
[2024-07-23 05:27] LABS: Absolute Lymphocyte Count 0.22 X10^3/uL (0.83-4.51); Absolute Neutrophil Count 9.3 X10^3/uL (2.0-7.7); Basophil# 0.01 X10^3/uL; Basophil% 0.1 % (0-1); Hematocrit 33.7 % (40-54); Hemoglobin 10.3 g/dL (13.0-16.5); Lymphocyte # 0.22 X10^3/ul (0.83-4.51); Lymphocyte % 2.2 % (19-41); Mean Corp Hgb Conc 30.6 g/dL (32-36); Mean Corpuscular Hgb 28.1 pg (27.0-32.0); Mean Corpuscular Volume 91.8 fL (80-94); Mean Platelet Vol. 10.6 fl (6.2-12.0); Monocyte# 0.24 X10^3/uL; Monocyte% 2.4 % (0-10); NRBC Flagged by Analyzer 0 % (0-5); Neutrophil # 9.28 X10^3/uL (2.7-7.7); Neutrophil % 94.7 % (47-70); POSITIVE DIFFERENTIAL YES; Platelet Count 228 K/mm3 (150-450); RBC Distribution Width CV 14.5 % (11.6-14.6); Red Blood Count 3.67 M/mm3 (4.6-6.2); White Blood Count 9.8 K/mm3 (4.4-11.0)
[2024-07-23 05:38] LABS: Bedside Glucose 287 mg/dL (74-106)
[2024-07-23 05:51] LABS: Anion Gap 5 (5-15); BUN 58 mg/dL (7-18); BUN/Creat Ratio 25.6 RATIO (10-20); Calcium,Total 9.1 mg/dL (8.5-10.1); Chloride 114 mmol/L (98-107); Creatinine, Serum 2.27 mg/dL (0.70-1.30); EST Glomerular Filtration Rate 29 mL/min (>60); Est Glom Filt Rate - Afr Amer 36 mL/min (>60); Estimated Creatinine Clearance 32.87 ml/min; Glucose 337 mg/dL (74-106); Potassium 4.1 mmol/L (3.5-5.1); Sodium Level 144 mmol/L (136-145)
[2024-07-23] MEDS: Meropenem 500 MG in 0.9% Normal Saline (50mL MB+) 50 ML 100 MG IV ×2 (07:48→20:46)
[2024-07-23] MEDS: Enoxaparin 30 MG/0.3 ML Syringe SC (07:49)
[2024-07-23] MEDS: Fluticasone 0.05% 1 SPRAY NASAL.SRY NASAL (07:49)
[2024-07-23] MEDS: Insulin Glargine-YFGN 100 UNIT/ML Pen 35 UNIT SC ×2 (07:49→23:06)
[2024-07-23] MEDS: MethylPREDNISolone 125 MG/2 ML Vial 60 MG IV ×2 (07:50→20:46)
--- NOTE | 2024-07-23 09:58 | PCM.PN.HOSP ---
Reason for Visit Reason for Visit: Diagnoses Sepsis, unspecified organism (07/20/24) Obesity, unspecified (07/20/24) Hyperosmolality and hypernatremia (07/20/24) Vascular dementia, unspecified severity, without behavioral disturbance, psychotic disturbance, mood disturbance, and anxiety (07/20/24) Obstructive sleep apnea (adult) (pediatric) (07/20/24) Encephalopathy, unspecified (07/20/24) Metabolic encephalopathy (07/20/24) Pneumonia, unspecified organism (07/20/24) Chronic obstructive pulmonary disease with (acute) exacerbation (07/20/24) Acute respiratory failure with hypoxia (07/20/24) Acute kidney failure, unspecified (07/20/24) Chronic kidney disease, stage 4 (severe) (07/20/24) Acute cystitis with hematuria (07/20/24) Severe sepsis with septic shock (07/20/24) Adverse effect of unspecified drugs, medicaments and biological substances, initial encounter (07/20/24) Personal history of transient ischemic attack (TIA), and cerebral infarction without residual deficits (07/20/24) Subjective Subjective Patient was seen and examined this morning, he is nonverbal but nursing states he responds to some questions by nodding his head. Patient is EEG showed generalized slowing indicative of encephalopathy, they did not feel that the patient had a new stroke. Objective Data Objective Data Vital Signs: Vital Signs Temp Pulse Resp BP Pulse Ox O2 Del Method O2 Flow Rate 97.3 F L 67 13 129/64 H 95 Nasal Cannula 2 07/23/24 08:00 07/23/24 08:00 07/23/24 08:00 07/23/24 08:00 07/23/24 09:18 07/23/24 09:18 07/23/24 09:18 FiO2 35 07/23/24 08:00 Oxygen Flow Rate (L/min) 2 Oxygen Delivery Method Nasal Cannula Weight: 122.8 kg Body Mass Index (BMI) 36.6 Intake & Output: Intake and Output for Last 24 Hours 07/21/24 07/22/24 07/23/24 23:59 23:59 23:59 Intake Total 3168.02 / 3168.02 3569.79 / 3569.79 1285 / 1285 Output Total 2050 / 2850 1999 / 1999 300 / 300 Balance 1118.02 / 318.02 1569.79 / 1569.79 985 / 985 Lab / Micro Data 07/23/24 05:10 07/23/24 05:10 Labs: Laboratory Results - last 24 hr 07/22/24 11:46: POC Glucose 324 H 07/22/24 17:16: POC Glucose 332 H 07/22/24 23:03: POC Glucose 317 H 07/23/24 05:10: WBC 9.8, RBC 3.67 L, Hgb 10.3 L, Hct 33.7 L, MCV 91.8, MCH 28.1, MCHC 30.6 L, RDW Std Deviation 49.0 H, RDW Coeff of Hilary 14.5, Plt Count 228, MPV 10.6, Immature Gran % (Auto) 0.600, Neut % (Auto) 94.7 H, Lymph % (Auto) 2.2 L, [place] % (Auto) 2.4, Eos % (Auto) 0.0, Baso % (Auto) 0.1, Absolute Neuts (auto) 9.3 H, Absolute Lymphs (auto) 0.22 L, Nucleated RBC % 0, Sodium 144, Potassium 4.1, Chloride 114 H, Carbon Dioxide 25.0, Anion Gap 5, BUN 58 H, Creatinine 2.27 H, Estim Creat Clear Calc 32.87, Est GFR (MDRD) Af Amer 36 L, Est GFR (MDRD) Non-Af 29 L, BUN/Creatinine Ratio 25.6 H, Glucose 337 H, Calcium 9.1 07/23/24 05:13: POC Glucose 287 H Micro: Microbiology 07/19/24 22:18 Blood Culture (Wb) - Anticubital Left Blood Culture - Preliminary No growth in 48 hours. 07/19/24 22:14 Blood Culture (Wb) - Anticubital Right Blood Culture - Preliminary No growth in 48 hours. 07/19/24 23:49 Urine, Random Urine Culture - Final GNR Poss Pseudomonas sp Presumptive C albicans 07/20/24 06:14 Urine Catheter - Lane Legionella Antigen - Final 07/20/24 06:14 Urine Catheter - Lane Streptococcus pneumoniae Antigen (M - Final 07/19/24 23:52 Mucosa - Nose SARS-CoV-2, Influenza & RSV (PCR) - Final Physical Exam Narrative Constitutional Narrative: Patient is lethargic but does open his eyes to voice and nods his head, he does not carry on a conversation General Appearance: cooperative, well kempt and well developed Orientation / Consciousness: lethargic HEENT normocephalic, head/scalp atraumatic and moist oral mucous membranes Eyes PERRL, EOMs intact bilaterally and conjunctivae normal Neck supple, no JVD, thyroid normal and no carotid bruits General: trachea midline Resp normal respiratory effort, no retractions and no use of accessory muscles Resp Narrative: Breath sounds are distant bilaterally Auscultation: Negative for rales, rhonchi or wheezes Cardio regular rate, regular rhythm, S1 normal heart sound, S2 normal heart sound, no murmurs, no rub and no gallops GI normal to inspection, nondistended, normoactive bowel sounds, soft to palpation, non-tender and non-distended Extremity no clubbing, cyanosis or edema Skin no rashes or lesions noted General Skin Exam: no breakdown Neuro CN's II-XII intact bilaterally and moves all extremities Neuro Narrative: Lethargic, in no distress Psych Psych Narrative: Lethargic Assessment & Plan Assessment/Plan (1) Acute encephalopathy: (2) Septic shock: PLAN: Plan 1. Septic shock-secondary to suspected pneumonia-continue broad-spectrum antibiotics at this time, patient is off pressor agents #2 acute hypoxic respiratory failure-probably secondary to pneumonia, pulse ox will be monitored #3 metabolic encephalopathy supportive care will be continued #4 acute kidney injury-patient's creatinine today was 2.27, labs will be monitored #5 cerebrovascular disease-acute stroke is ruled out at this time Total clinical time spent by myself addressing the patient's medical issues, reviewing all of his data, and collaborating with patient's care team: 35-minute Charges/Coding Visit Charges Inpatient E&M: 56294 Subs Hosp L2
--- NOTE | 2024-07-23 10:06 | NEURO.PNOTE ---
Assessment and Plan: Neuro Assessment/Plan WADE HERNANDEZ is a 83 M with a past medical history of recent stroke, HTN, HLD, CKD, neuropathy, being evaluated by Teleneurology for persistent AMS. PAtient with confusion in setting of initially being hypercalcemic, having new UTI, hypernatremia and MARLON on CKD with uremia. Most of these metabolic derrangements having improved except the uremia. Patient has been somnolent throughout the hospital stay with little improvement. On exam, patient with L sided weakness, severe somnolence and does not stay awake. He is L handed. Patient is slightly improved with respect to wakefulness but still very somnolent. Metabolic abnormalities continue to improve Diagnosis: likely toxic metabolic encephalopathy Plan: - EEG with severe slowing, if no improvement in 48 hrs consider repeating - MARLON, hypernatremia, hypercalcemia improved - maintaim q 3 day bowel movements - avoid dehydration - delirium precautions with lights on during the day and sitting up in bed Will follow peripherally for EEG I personally attended this patient and spent a total time of 30minutes evaluating this patient including clinical assessment, review of chart, medical history imaging, and determining appropriate treatment and workup. Subject: Neurology Subjective Pt slightly more arousable than yesterday EEG Results Procedure Details EEG Procedure Details: WADE HERNANDEZ is a 83 year old M with a past medical history of , who presents for evaluation of Electroencephalogram on DATE at TIME Objective Data Objective Data Vital Signs: Vital Signs Temp Pulse Resp BP Pulse Ox O2 Del Method O2 Flow Rate 97.3 F L 67 13 129/64 H 95 Nasal Cannula 2 07/23/24 08:00 07/23/24 08:00 07/23/24 08:00 07/23/24 08:00 07/23/24 09:18 07/23/24 09:18 07/23/24 09:18 FiO2 35 07/23/24 08:00 Oxygen Flow Rate (L/min) 2 Oxygen Delivery Method Nasal Cannula Weight: 122.8 kg Body Mass Index (BMI) 36.6 Intake & Output: Intake and Output for Last 24 Hours 07/21/24 07/22/24 07/23/24 23:59 23:59 23:59 Intake Total 3168.02 / 3168.02 3569.79 / 3569.79 1285 / 1285 Output Total 2050 / 2850 2000 / 2000 300 / 300 Balance 1118.02 / 318.02 1569.79 / 1569.79 985 / 985 Lab / Micro Data 07/23/24 05:10 07/23/24 05:10 Labs: Laboratory Results - last 24 hr 07/22/24 11:46: POC Glucose 324 H 07/22/24 17:16: POC Glucose 332 H 07/22/24 23:03: POC Glucose 317 H 07/23/24 05:10: WBC 9.8, RBC 3.67 L, Hgb 10.3 L, Hct 33.7 L, MCV 91.8, MCH 28.1, MCHC 30.6 L, RDW Std Deviation 49.0 H, RDW Coeff of Hilary 14.5, Plt Count 228, MPV 10.6, Immature Gran % (Auto) 0.600, Neut % (Auto) 94.7 H, Lymph % (Auto) 2.2 L, [place] % (Auto) 2.4, Eos % (Auto) 0.0, Baso % (Auto) 0.1, Absolute Neuts (auto) 9.3 H, Absolute Lymphs (auto) 0.22 L, Nucleated RBC % 0, Sodium 144, Potassium 4.1, Chloride 114 H, Carbon Dioxide 25.0, Anion Gap 5, BUN 58 H, Creatinine 2.27 H, Estim Creat Clear Calc 32.87, Est GFR (MDRD) Af Amer 36 L, Est GFR (MDRD) Non-Af 29 L, BUN/Creatinine Ratio 25.6 H, Glucose 337 H, Calcium 9.1 07/23/24 05:13: POC Glucose 287 H Micro: Microbiology 07/19/24 22:18 Blood Culture (Wb) - Anticubital Left Blood Culture - Preliminary No growth in 48 hours. 07/19/24 22:14 Blood Culture (Wb) - Anticubital Right Blood Culture - Preliminary No growth in 48 hours. 07/19/24 23:49 Urine, Random Urine Culture - Final GNR Poss Pseudomonas sp Presumptive C albicans 07/20/24 06:14 Urine Catheter - Lane Legionella Antigen - Final 07/20/24 06:14 Urine Catheter - Lane Streptococcus pneumoniae Antigen (M - Final 07/19/24 23:52 Mucosa - Nose SARS-CoV-2, Influenza & RSV (PCR) - Final Physical Exam Narrative Severely somnolent, arousable mostly by voice and noxious stim difficulty with L gaze but able to cross midline no facial asymmetry Keeps b/l Ue antigravity, RUE controlled drift to bed, LUE minimal drift b/l LE withdraws to noxious stim equally
[2024-07-23] MEDS: Pantoprazole Sodium 40 MG in 0.9% Normal Saline (100mL MB+) 100 ML 330 MG IV (12:32)
[2024-07-23 12:35] LABS: Bedside Glucose 268 mg/dL (74-106)
--- NOTE | 2024-07-23 13:38 | PCM.PN.TICU ---
Objective Data Objective Data Vital Signs: Vital Signs Last response Temperature 36.6 C 07/23/24 13:00 Temperature Source Core 07/23/24 13:00 Pulse Rate 66 07/23/24 13:00 Pulse Strength Normal (2+) 07/23/24 07:59 Respiratory Rate 15 07/23/24 13:00 Respiratory Effort Normal, Non-Labored 07/23/24 12:00 Respiratory Depth Normal 07/23/24 12:00 Respiratory Pattern Normal 07/23/24 12:00 Blood Pressure 126/72 H 07/23/24 13:00 Blood Pressure Mean 90 07/23/24 13:00 Blood Pressure Source Monitor 07/23/24 13:00 Blood Pressure Position Semi-Fowlers 07/23/24 13:00 Blood Pressure Location Right Arm 07/23/24 13:00 Pulse Ox 96 07/23/24 13:00 Oxygen Delivery Method Nasal Cannula 07/23/24 13:00 Oxygen Flow Rate (L/min) 2 07/23/24 13:00 Fraction of Inspired Oxygen (FIO2) 35 07/23/24 08:00 I&O: I&O Last 24 Hours 07/22/24 07/23/24 07/23/24 23:59 11:59 23:59 Intake Total 2030.83 / 3569.79 1285 / 2324.17 1039.17 / 2324.17 Output Total 1200 / 2000 300 / 900 600 / 900 Balance 830.83 / 1569.79 985 / 1424.17 439.17 / 1424.17 I&O: Total Stay 07/19/24 21:29 thru 07/23/24 13:00 Intake Total 75639.87 Output Total 7950 Balance 8556.87 Current Meds Ordered / Administered: Current meds ordered / Administered Generic Name Dose Route Start Last Admin Trade Name Freq PRN Reason Stop Dose Admin Acetaminophen 650 mg 07/20/24 04:18 Acetaminophen 325 Mg Tablet PO Q6H PRN PRN Pain 1-10 or Fever Albuterol Sulfate 2.5 mg 07/20/24 06:05 Albuterol 2.5 Mg/3 Ml Vial.Neb. INHALATION Q4H PRN PRN Shortness of breath, wheezing Albuterol/Ipratropium 3 ml 07/20/24 08:30 07/23/24 12:34 Ipratropium/Albuterol Sulfate 3 Ml Ampul.Neb INHALATION 3 ml Q6H.RT FERNANDO Administration Atorvastatin Calcium 40 mg 07/20/24 10:00 07/23/24 07:35 Atorvastatin Calcium 40 Mg Tablet PO Not Given DAILY FERNANDO Cholestyramine Resin 4 gm 07/20/24 10:00 07/23/24 07:35 Cholestyramine/Sucrose 4 Gm/Packet PO Not Given DAILY FERNANDO Enoxaparin Sodium 40 mg 07/24/24 10:00 Enoxaparin 40 Mg/0.4 Ml Syringe SC DAILY FERNANDO Ferrous Sulfate 325 mg 07/20/24 12:00 07/23/24 07:36 Ferrous Sulfate 325 Mg Tablet PO Not Given DAILY@1200 FERNANDO Fluticasone Propionate 1 spray 07/20/24 10:00 07/23/24 07:49 Fluticasone 0.05% 1 [place] Nasal.Sry NASAL 1 spray DAILY FERNANDO Administration Pantoprazole Sodium 40 mg/ 110 mls @ 330 mls/hr 07/20/24 04:30 07/23/24 13:00 Sodium Chloride IV Infused DAILY FERNANDO Infusion Sodium Chloride 100 mls @ 15 mls/hr 07/20/24 06:10 07/22/24 10:03 IV Infused .Q6H40M PRN Infusion Saline Flush Sodium Chloride 100 mls @ 15 mls/hr 07/20/24 06:10 IV .Q6H40M PRN Additional IVPB Infusion Norepinephrine Bitartrate 8 mg 250 mls @ 9.375 mls/hr 07/20/24 06:35 07/23/24 12:40 / Sodium Chloride CONT INF Not Given .[id number] FERNANDO Protocol 5 MCG/MIN Vancomycin IV-PHARMACY TO DOSE 500 mls @ 250 mls/hr 07/20/24 10:00 1 each/ Sodium Chloride IV PRN PRN Rx to Dose Protocol Meropenem 500 mg/ Sodium 60 mls @ 100 mls/hr 07/20/24 10:00 07/23/24 08:53 Chloride IV Infused Q12 FERNANDO Infusion Dextrose 1,000 mls @ 125 mls/hr 07/20/24 12:20 07/23/24 12:40 IV 125 mls/hr .Q8H FERNANDO Administration Vancomycin HCl 1,250 mg/ 275 mls @ 167 mls/hr 07/22/24 06:00 07/23/24 07:10 Sodium Chloride IV Infused Q24H [facility] Infusion Insulin Glargine 35 unit 07/22/24 22:00 07/23/24 07:49 Insulin Glargine-Yfgn 100 Unit/Ml Pen SC 35 unit BID FERNANDO Administration Insulin Human Lispro 0 unit 07/22/24 18:00 07/23/24 12:38 Insulin Lispro 100 Unit/Ml Insuln.Pen SC 9 u Q6 [facility] Administration Protocol Methylprednisolone 60 mg 07/20/24 22:00 07/23/24 07:50 Methylprednisolone 125 Mg/2 Ml Vial IV 60 mg BID FERNANDO Administration Polyethylene Glycol 17 gm 07/20/24 10:00 07/23/24 07:35 Polyethylene Glycol 3350 17 Gm Packet PO Not Given DAILY [facility] Sodium Chloride 10 - 40 ml 07/20/24 06:10 07/23/24 05:10 0.9% Saline Lock 10 Ml Syringe IV 20 ml UD PRN Administration SALINE FLUSH Tamsulosin HCl 0.8 mg 07/20/24 10:00 07/23/24 07:35 Tamsulosin Hcl 0.4 Mg Capsule PO Not Given DAILY [facility] Vancomycin Protocol 1 lab 07/24/24 03:30 Vancomycin Trough/Random Due MC 07/24/24 07:30 DAILY [facility] Lab / Micro Data 07/23/24 05:10 07/23/24 05:10 Labs: Laboratory Results - last 24 hr 07/22/24 17:16: POC Glucose 332 H 07/22/24 23:03: POC Glucose 317 H 07/23/24 05:10: WBC 9.8, RBC 3.67 L, Hgb 10.3 L, Hct 33.7 L, MCV 91.8, MCH 28.1, MCHC 30.6 L, RDW Std Deviation 49.0 H, RDW Coeff of Hilary 14.5, Plt Count 228, MPV 10.6, Immature Gran % (Auto) 0.600, Neut % (Auto) 94.7 H, Lymph % (Auto) 2.2 L, [place] % (Auto) 2.4, Eos % (Auto) 0.0, Baso % (Auto) 0.1, Absolute Neuts (auto) 9.3 H, Absolute Lymphs (auto) 0.22 L, Nucleated RBC % 0, Sodium 144, Potassium 4.1, Chloride 114 H, Carbon Dioxide 25.0, Anion Gap 5, BUN 58 H, Creatinine 2.27 H, Estim Creat Clear Calc 32.87, Est GFR (MDRD) Af Amer 36 L, Est GFR (MDRD) Non-Af 29 L, BUN/Creatinine Ratio 25.6 H, Glucose 337 H, Calcium 9.1 07/23/24 05:13: POC Glucose 287 H 07/23/24 12:16: POC Glucose 268 H Assessment and Plan . Assessment and plan: HPI Patient seen and examined Chart and data reviewed He remains confused and hypoactive MRI noted Breathing 2 LPM O2 comfortably Renal function a bit better, UOP adequate EXAM GEN NAD - chronically ill - hypoactive VS as above HEENT O2 N/C NECK supple COR RRR CHEST diminished ABD soft EXT minimal edema SKIN w/d KASHIF decreased power on left - chronic ASSESSMENT 1. Resolved shock 2. Delirium / encephalopathy 3. Subacute CVA 4. MARLON 5. COPD / obesity / NILO TREATMENT PLAN -supplemental O2 as needed -ABX for now -follow renal function -NPO for now -VTE ppx -needs care planning Critical Care Time: 50 min The entirety of this encounter was done via Telemedicine
[2024-07-23 18:16] LABS: Bedside Glucose 255 mg/dL (74-106)
[2024-07-23 23:30] LABS: Bedside Glucose 234 mg/dL (74-106)
[2024-07-24] VITALS (14 sets, daily range): BP systolic 102–155; BP diastolic 66–82; PULSE 50–80; RESP 10–19; TEMP 36.1–36.6; O2SAT 92–100; BMI 35.6
[2024-07-24] MEDS: Ipratropium/Albuterol Sulfate 3 ML AMPUL.NEB INHALATION ×4 (01:15→19:06)
[2024-07-24 03:40] LABS: Vancomycin, Trough Level 19.2 ug/mL (5.0-15.0)
--- NOTE | 2024-07-24 03:49 | PHA.PHARE_ITS ---
Consult Antibiotic Management Pharmacy has been consulted to manage selected antibiotic: Vancomycin Type of Intervention Type of Consult: Follow-up Suspected Infection Suspected Infection: Sepsis Labs Labs: Sodium 144 mmol/L (136-145) 07/23/24 05:10 Potassium 4.1 mmol/L (3.5-5.1) 07/23/24 05:10 Chloride 114 mmol/L (98-107) H 07/23/24 05:10 Carbon Dioxide 25.0 mmol/L (21.0-32.0) 07/23/24 05:10 Anion Gap 5 (5-15) 07/23/24 05:10 BUN 58 mg/dL (7-18) H 07/23/24 05:10 Creatinine 2.27 mg/dL (0.70-1.30) H 07/23/24 05:10 Est GFR (MDRD) Af Amer 36 mL/min (>60) L 07/23/24 05:10 Est GFR (MDRD) Non-Af 29 mL/min (>60) L 07/23/24 05:10 BUN/Creatinine Ratio 25.6 RATIO (10-20) H 07/23/24 05:10 Glucose 337 mg/dL (74-106) H 07/23/24 05:10 Vancomycin Trough 19.2 ug/mL (5.0-15.0) H 07/24/24 03:10 Random Vancomycin 11.3 ug/mL (0.0-15.0) 07/22/24 03:45 Microbiology Microbiology: Microbiology 07/19/24 22:18 Blood Culture (Wb) - Anticubital Left Blood Culture - Preliminary No growth in 48 hours. 07/19/24 22:14 Blood Culture (Wb) - Anticubital Right Blood Culture - Preliminary No growth in 48 hours. 07/19/24 23:49 Urine, Random Urine Culture - Final GNR Poss Pseudomonas sp Presumptive C albicans 07/20/24 06:14 Urine Catheter - Lane Legionella Antigen - Final 07/20/24 06:14 Urine Catheter - Lane Streptococcus pneumoniae Antigen (M - Final 07/19/24 23:52 Mucosa - Nose SARS-CoV-2, Influenza & RSV (PCR) - Final Dosing Weight Weight used for dosin kg Estimated Creatinine Clearance Estimated Creatinine Clearance: 33 Goal Trough Goal Trough: 15-20 mcg/mL Pharmacy Plan for Drug Dosing Pharmacy Plan for Drug Dosing: Vancomycin trough level of 19.2, drawn 22hrs post-dose, was within the target range of 15-20. Will continue dosing at 1250mg q24h, and will draw another t rough level in two days. Pharmacy Service will continue to monitor and adjust dosing as required. Follow-Up Labs Follow-Up Labs: Trough: Vancomycin Date/Time Labs Ordered Labs to be done on [date and time ordered]: 07/26/24 @1956
[2024-07-24] MEDS: Dextrose 5%-Water (1000mL Bag) 1,000 ML 125 ML IV (04:28)
[2024-07-24] MEDS: Vancomycin HCl 1,250 MG in 0.9% Normal Saline (250mL Bag) 250 ML 167 MG IV (05:12)
[2024-07-24] MEDS: Insulin Lispro 100 UNIT/ML INSULN.PEN SC ×3 (05:23→23:47)
[2024-07-24 05:50] LABS: Bedside Glucose 241 mg/dL (74-106)
--- NOTE | 2024-07-24 10:26 | PCM.PN.HOSP ---
Reason for Visit Reason for Visit: Diagnoses Sepsis, unspecified organism (07/20/24) Obesity, unspecified (07/20/24) Hyperosmolality and hypernatremia (07/20/24) Vascular dementia, unspecified severity, without behavioral disturbance, psychotic disturbance, mood disturbance, and anxiety (07/20/24) Obstructive sleep apnea (adult) (pediatric) (07/20/24) Encephalopathy, unspecified (07/20/24) Metabolic encephalopathy (07/20/24) Pneumonia, unspecified organism (07/20/24) Chronic obstructive pulmonary disease with (acute) exacerbation (07/20/24) Acute respiratory failure with hypoxia (07/20/24) Acute kidney failure, unspecified (07/20/24) Chronic kidney disease, stage 4 (severe) (07/20/24) Acute cystitis with hematuria (07/20/24) Severe sepsis with septic shock (07/20/24) Adverse effect of unspecified drugs, medicaments and biological substances, initial encounter (07/20/24) Personal history of transient ischemic attack (TIA), and cerebral infarction without residual deficits (07/20/24) Subjective Subjective Patient was seen and examined today, at the time my examination he was on nasal cannula oxygen, he was not able to carry on a conversation but was able to nod his head yes or no to questions. Nursing states that he was more alert than he has been since his admission. Objective Data Objective Data Vital Signs: Vital Signs Temp Pulse Resp BP Pulse Ox O2 Del Method O2 Flow Rate 96.9 F L 67 19 H 149/71 H 96 Bi-pap 2 07/24/24 07:44 07/24/24 07:44 07/24/24 07:44 07/24/24 07:44 07/24/24 07:44 07/24/24 07:44 07/23/24 20:00 FiO2 30 07/24/24 07:44 Oxygen Flow Rate (L/min) 2 Oxygen Delivery Method Bi-pap Weight: 119.6 kg Body Mass Index (BMI) 35.6 Intake & Output: Intake and Output for Last 24 Hours 07/22/24 07/23/24 07/24/24 23:59 23:59 23:59 Intake Total 3569.79 / 3569.79 3384.17 / 3384.17 962.5 / 962.5 Output Total 1999 1850 / 1850 1600 / 1600 Balance 1569.79 / 1569.79 1534.17 / 1534.17 -637.5 / -637.5 Lab / Micro Data 07/23/24 05:10 07/23/24 05:10 Labs: Laboratory Results - last 24 hr 07/23/24 12:16: POC Glucose 268 H 07/23/24 17:50: POC Glucose 255 H 07/23/24 23:05: POC Glucose 234 H 07/24/24 03:10: Vancomycin Trough 19.2 H 07/24/24 05:22: POC Glucose 241 H Micro: Microbiology 07/19/24 22:18 Blood Culture (Wb) - Anticubital Left Blood Culture - Preliminary No growth in 48 hours. 07/19/24 22:14 Blood Culture (Wb) - Anticubital Right Blood Culture - Preliminary No growth in 48 hours. 07/19/24 23:49 Urine, Random Urine Culture - Final GNR Poss Pseudomonas sp Presumptive C albicans 07/20/24 06:14 Urine Catheter - Lane Legionella Antigen - Final 07/20/24 06:14 Urine Catheter - Lane Streptococcus pneumoniae Antigen (M - Final 07/19/24 23:52 Mucosa - Nose SARS-CoV-2, Influenza & RSV (PCR) - Final Physical Exam Narrative Constitutional Narrative: Patient is lethargic but does open his eyes to voice and nods his head, he does not carry on a conversation General Appearance: cooperative, well kempt and well developed Orientation / Consciousness: lethargic HEENT normocephalic, head/scalp atraumatic and moist oral mucous membranes Eyes PERRL, EOMs intact bilaterally and conjunctivae normal Neck supple, no JVD, thyroid normal and no carotid bruits General: trachea midline Resp normal respiratory effort, no retractions and no use of accessory muscles Resp Narrative: Breath sounds are distant bilaterally Auscultation: Negative for rales, rhonchi or wheezes Cardio regular rate, regular rhythm, S1 normal heart sound, S2 normal heart sound, no murmurs, no rub and no gallops GI normal to inspection, nondistended, normoactive bowel sounds, soft to palpation, non-tender and non-distended Extremity no clubbing, cyanosis or edema Skin no rashes or lesions noted General Skin Exam: no breakdown Neuro CN's II-XII intact bilaterally and moves all extremities Neuro Narrative: Lethargic, in no distress Psych Psych Narrative: Lethargic Assessment & Plan Assessment/Plan (1) Septic shock: (2) Acute encephalopathy: PLAN: Plan 1. Septic shock-secondary to suspected pneumonia-continue broad-spectrum antibiotics at this time, patient is off pressor agents #2 acute hypoxic respiratory failure-probably secondary to pneumonia, pulse ox will be monitored #3 metabolic encephalopathy supportive care will be continued, patient is somewhat more alert today according to nursing #4 acute kidney injury-BMP will be repeated tomorrow #5 cerebrovascular disease-acute stroke is ruled out at this time Total clinical time spent by myself addressing the patient's medical issues, reviewing all of his data, and collaborating with patient's care team: 35-minute Charges/Coding Visit Charges Inpatient E&M: 92187 Subs Hosp L2
[2024-07-24] MEDS: Fluticasone 0.05% 1 SPRAY NASAL.SRY NASAL (10:48)
[2024-07-24] MEDS: Enoxaparin 40 MG/0.4 ML Syringe SC (10:49)
[2024-07-24] MEDS: MethylPREDNISolone 125 MG/2 ML Vial 60 MG IV ×2 (10:50→20:30)
[2024-07-24] MEDS: Meropenem 500 MG in 0.9% Normal Saline (50mL MB+) 50 ML 100 MG IV ×2 (10:53→21:23)
[2024-07-24] MEDS: Dext 5%-0.45% NS 1,000 ML 75 ML IV (13:16)
[2024-07-24] MEDS: Insulin Glargine-YFGN 100 UNIT/ML Pen 35 UNIT SC ×2 (13:20→20:29)
[2024-07-24 13:42] LABS: Bedside Glucose 181 mg/dL (74-106)
[2024-07-24] MEDS: Pantoprazole Sodium 40 MG in 0.9% Normal Saline (100mL MB+) 100 ML 330 MG IV (13:55)
[2024-07-24] MEDS: 0.9% Saline Lock 10 ML Syringe IV ×2 (13:55→20:30)
[2024-07-24 18:02] LABS: Bedside Glucose 205 mg/dL (74-106)
[2024-07-24 21:31] LABS: Bedside Glucose 214 mg/dL (74-106)
[2024-07-25] VITALS (13 sets, daily range): BP systolic 110–155; BP diastolic 70–105; PULSE 49–89; RESP 14–20; TEMP 36.1–36.2; O2SAT 91–98; BMI 35.8
[2024-07-25 00:05] LABS: Bedside Glucose 187 mg/dL (74-106)
[2024-07-25] MEDS: Ipratropium/Albuterol Sulfate 3 ML AMPUL.NEB INHALATION ×3 (01:39→19:14)
[2024-07-25] MEDS: Dext 5%-0.45% NS 1,000 ML 75 ML IV ×2 (02:01→22:34)
[2024-07-25] MEDS: Vancomycin HCl 1,250 MG in 0.9% Normal Saline (250mL Bag) 250 ML 167 MG IV (05:54)
[2024-07-25 07:51] LABS: Bedside Glucose 172 mg/dL (74-106)
[2024-07-25 08:01] LABS: Absolute Lymphocyte Count 0.22 X10^3/uL (0.83-4.51); Basophil# 0.01 X10^3/uL; Basophil% 0.1 % (0-1); Hematocrit 39.8 % (40-54); Hemoglobin 12.1 g/dL (13.0-16.5); Lymphocyte # 0.22 X10^3/ul (0.83-4.51); Lymphocyte % 2.9 % (19-41); Mean Corp Hgb Conc 30.4 g/dL (32-36); Mean Corpuscular Hgb 27.6 pg (27.0-32.0); Mean Corpuscular Volume 90.9 fL (80-94); Mean Platelet Vol. 10.3 fl (6.2-12.0); Monocyte# 0.26 X10^3/uL; Monocyte% 3.4 % (0-10); NRBC Flagged by Analyzer 0 % (0-5); Neutrophil # 6.99 X10^3/uL (2.7-7.7); Neutrophil % 92.5 % (47-70); POSITIVE DIFFERENTIAL YES; Platelet Count 229 K/mm3 (150-450); RBC Distribution Width CV 13.8 % (11.6-14.6); RBC Distribution Width SD 46.4 fl (35.1-43.9); Red Blood Count 4.38 M/mm3 (4.6-6.2); White Blood Count 7.6 K/mm3 (4.4-11.0)
[2024-07-25 08:27] LABS: Anion Gap 5 (5-15); BUN 39 mg/dL (7-18); BUN/Creat Ratio 25.7 RATIO (10-20); Calcium,Total 9.6 mg/dL (8.5-10.1); Chloride 112 mmol/L (98-107); Creatinine, Serum 1.52 mg/dL (0.70-1.30); EST Glomerular Filtration Rate 47 mL/min (>60); Est Glom Filt Rate - Afr Amer 57 mL/min (>60); Estimated Creatinine Clearance 49.25 ml/min; Glucose 174 mg/dL (74-106); Potassium 3.8 mmol/L (3.5-5.1); Sodium Level 146 mmol/L (136-145)
[2024-07-25] MEDS: Fluticasone 0.05% 1 SPRAY NASAL.SRY NASAL (11:11)
[2024-07-25] MEDS: MethylPREDNISolone 125 MG/2 ML Vial 60 MG IV ×2 (11:12→22:38)
[2024-07-25] MEDS: 0.9% Saline Lock 10 ML Syringe IV ×3 (11:15→22:39)
[2024-07-25] MEDS: Meropenem 500 MG in 0.9% Normal Saline (50mL MB+) 50 ML 100 MG IV ×2 (11:15→22:33)
[2024-07-25] MEDS: Enoxaparin 40 MG/0.4 ML Syringe SC (11:18)
[2024-07-25] MEDS: Pantoprazole Sodium 40 MG in 0.9% Normal Saline (100mL MB+) 100 ML 330 MG IV (11:41)
--- NOTE | 2024-07-25 12:12 | SP.MBSS_ITS ---
Modified Barium Swallow Patient Information Study Date: 07/25/24 Study Time: 12:30 Direct Billable Minutes: 105 Total Minutes procedure & reportin Diagnosis: PNA J18.9, Vascular dementia F01.50 Referring Physician: Jaja Nielson Reason for Referral: Assess risk for aspiration and determine recommendations for LRD textures and compensatory strategies to facilitate safe po intake. 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 See EMR for full PMH. The patient had relatively recent admission here from April 03, 2024 to April 06, 2024 for treatment of suspected CVA; with dysarthria with subsequent negative MRI and acute cystitis. Pt recently diagnosed Right temporo-occipital CVA treated at [facility]. He presented to [facility] ED 07/20/2024 w/ SOB and AMS. In the ED, CT evidence of Diffuse Bilateral Pneumonia with centrilobular emphysematous changes and a lipoma on the Right lateral chest wall with a Right thyroid gland nodule along with ascending aortic aneurysm measuring ~4.5 cm complicated by clinical evidence of Acute Hypoxic Respiratory Failure requiring Airvo complicated by acute Cystitis and severe hypotension, septic shock, and MARLON. Head CT suspicious for nonhemorrhagic Right temporal-occipital infarction most likely acute - but comparison to previous CT shows lesion is chronic from recent CVA treated in [facility] with additional clinical evidence of Acute Hypoxic and Septic Encephalopathy in the setting of Chronic Vascular Dementia. Pt's daughter reported he is a DNR-CCA; without intubation. He was admitted to ICU for subsequent management. Pt referred for ST consult to assess swallowing difficulty; however, pt w/ insufficient alertness for po intake prior to 07/25/24. BSE 07/25/24 recommended NPO w/ plan for MBSS prior to diet advancement. Hx of dysphagia w/ 3 MBSS since pontine CVA in 2019. Most recent MBSS 04/04/2024 revealing mild oropharyngeal dysphagia and recommending Easy to Chew textures (IDDSI Level 7) and Thin Liquids w/ meds whole w/ applesauce and the following Compensatory Strategies: Small Bites, Small Sips, Slow Rate, Sitting upright and Remain sitting upright for 30 minutes after PO intake. Current Diet Ordered: Strict NPO Dentition: Natural Teeth, Decay and Missing Teeth Mental Status: Impaired (Hx of vascular dementia and 2 CVAs) Respiratory Status: Oxygenating on 2L/M nasal cannula Penetration-Aspiration Scale Penetration-Aspiration Scale: OBJECTIVE ASSESSMENT OF SWALLOW FUNCTION (QUANTITATIVE ? PER TRIAL): PENETRATION / ASPIRATION SCALE (MORENO): 1 = does not enter airway 2 = enters airway/above vocal folds/ejected 3 = enters airway/above vocal folds/not ejected 4 = enters airway/contacts vocal folds/ejected 5 = enters airway/contacts vocal folds/not ejected 6 = enters airway/below vocal folds/ejected 7 = enters airway/below vocal folds/not ejected despite effort 8 = enters airway/below vocal folds/no effort VIDEOFLOROSCOPIC SCALE SCORE (MORENO): Grade I = aspiration of material that has penetrated into the laryngeal vestibule, intact cough reflex Grade II = aspiration < 10 % of the bolus, intact cough reflex Grade III = aspiration of < 10 % of the bolus, reduced cough reflex or aspiration of > 10 % of the bolus, intact cough reflex Grade IV = aspiration of > 10 % of the bolus, reduced cough reflex Penetration-Aspiration Scale Score Thin Liquid via 1/2 teaspoon: Result: 5= enters airways/contacts vocal folds/not ejected Thin Liquid via teaspoon: Result: 8= enters airway/below vocal folds/no effort [place] Thick Liquid via teaspoon: Result: 1= does not enter airway Comment: Post prandial laryngeal penetration to the vocal folds of previous trial. This barium remained on the vocal folds for the duration of the study. No reflexive cough. [place] Thick Liquid via small single sip: cup: Result: 5= enters airways/contacts vocal folds/not ejected Pudding via teaspoon: Result: 1= does not enter airway [place] Thick Liquid via teaspoon Trial 2: Result: 1= does not enter airway Pudding via teaspoon Trial 2: Result: 1= does not enter airway Oral Phase Labial Seal: Escape beyond interlabial space; no extension beyond kaitlyn border Tongue Control During Bolus Hold: Posterior escape of greater than half of bolus Bolus Transport/Lingual Motion: Slowed tongue motion Oral Residue: Residue collection on oral structures Pharyngeal Phase Initiation of Pharyngeal Swallow: Bolus head in pyriforms Soft Palate Elevation: No bolus between soft palate and pharyngeal wall Laryngeal Elevation: Partial superior movement thyroid cart/partial apprx aryt- epig petiole Anterior Hyoid Excursion: Partial anterior movement Epiglottic Movement: Partial inversion Laryngeal Vestibule Closure at Height of Swallow: Incomplete; narrow column of air/contrast in laryngeal vestibule Pharyngeal Stripping Wave: Present - complete Pharyngoesophageal Segment Opening: Parital distension and partial duration; parital obstruction of flow Tongue Base Retraction: Narrow column of contrast between tongue base & post. pharyngeal wall Pharyngeal Residue: Trace residue within or on pharyngeal structures Esophageal Phase Esophageal Clearance: Esophageal retention w/ retrograde flow through pharyngoesophageal seg Diagnosis/Impression Diagnosis: Moderate oropharyngeal dysphagia R13.12 Impression: Pt appeared very fatigued. He appeared to intermittently bear down, clenching jaw, face turning bright red both before and during the study. SpO2 93-96%, dropping to 85% one time but likely from poor reading as it recovered to 96% immediately. He required 2 seat belts for trunk to stay in place during the study as he was consistently leaning forward in chair despite cues to sit back and despite chair being partially reclined. Pt reported he was unable to keep himself from leaning forward. The oral phase is marked by... -Posterior loss of >1/2 the bolus to the pharynx w/ bolus head in the pyriforms prior to swallow onset. -Slowed tongue motion for A-P transport. -Trace-mild oral residues. -Did not assess cookie during MBSS due to patient appearing increasingly fatigued during MBSS and w/ poor bolus control and PARKING INSPECTOR concerns for choking risk. Will trial soft solids in upcoming sessions when deemed clinically appropriate by PARKING INSPECTOR. The pharyngeal phase is marked by... -Delayed swallow onset. -Decreased airway closure during the swallow due to decreased laryngeal elevation, epiglottic inversion, and anterior hyoid excursion. -SILENT aspiration of thin liquids by tsp. Laryngeal penetration to the vocal folds of thin by 1/2 tsp and mildly/nectar thick liquids by cup. The esophageal phase is marked by... -Very small pouch-like collection of barium just above a CP bar at the level of C5 w/ retrograde flow to the pyriforms. PARKING INSPECTOR reviewed MBSS w/ radiologist, Dr. Shelley, who stated it was likely a small diverticulum. No need for intervention due to small size. -Minimal retention of barium in lower esophagus. Recommendations Diet: Puree Textures and [place]-thick Liquids Comment: Medications crushed in applesauce Compensatory Strategies: Small Bites, Liquid by Teaspoon Only, Slow Rate, Sitting upright and Remain sitting upright for 30 minutes after PO intake Supervision: Total Feed Recommend Repeat Modified Barium Swallow: Yes (2-4 weeks after implementation) Need for Skilled Speech Therapy Services: Yes Comment: -Train the patient in use of strategies to decrease risk for aspiration. Tsp size sips recommended to decrease risk for aspiration w/ liquids. -Ongoing assessment of diet tolerance of recommended textures. Monitor respiratory status closely. Once deemed clinically appropriate by PARKING INSPECTOR, will trial soft solids to consider further diet advancement. -Train the patient in oropharyngeal exercise program to bolus control and airway closure. (lingual ROM, lingual resistance, effortful swallows). Education Completed: 1. Described result of evaluation. and 7. Pt requires further education on strategies & risks. Status Active ST Patient: Active Contact Information [facility] Speech Therapy:: Jessica Benton M.A. [facility]-PARKING INSPECTOR? Speech-Language Pathologist?? [facility] [address] [place] [address]? [email or web address]?? [phone]
[2024-07-25] MEDS: Insulin Glargine-YFGN 100 UNIT/ML Pen 35 UNIT SC ×2 (14:22→22:58)
--- NOTE | 2024-07-25 14:36 | PN_ITS ---
Subjective Subjective Patient seen and examined. He was alert but not very communicative and which is directly when asked questions. Unable to do comprehensive review of systems. He is on 2 L of oxygen. Objective Data Objective Data Vital Signs: Vital Signs Temp Pulse Resp BP Pulse Ox O2 Del Method O2 Flow Rate 97.2 F L 81 20 H 153/94 H 94 Nasal Cannula 2 07/25/24 14:31 07/25/24 14:07/25/24 14:31 07/25/24 14:31 07/25/24 14:07/25/24 14:07/25/24 14:31 FiO2 30 07/25/24 03:36 Oxygen Flow Rate (L/min) 2 Oxygen Delivery Method Nasal Cannula Weight: 264 lb 8.875 oz Body Mass Index (BMI) 35.8 Intake & Output: Intake and Output for Last 24 Hours 07/23/24 07/24/24 07/25/24 23:59 23:59 23:59 Intake Total 3384.17 / 3384.17 2467.5 / 2467.5 1696.25 / 1696.25 Output Total 1850 / 1850 3700 / 3700 1475 / 1475 Balance 1534.17 / 1534.17 -1232.5 / -1232.5 221.25 / 221.25 Lab / Micro Data 07/25/24 07:25 07/25/24 07:25 Labs: Laboratory Results - last 24 hr 07/24/24 17:39: POC Glucose 205 H 07/24/24 20:02: POC Glucose 214 H 07/24/24 23:45: POC Glucose 187 H 07/25/24 05:53: POC Glucose 172 H 07/25/24 07:25: WBC 7.6, RBC 4.38 L, Hgb 12.1 L, Hct 39.8 L, MCV 90.9, MCH 27.6, MCHC 30.4 L, RDW Std Deviation 46.4 H, RDW Coeff of Hilary 13.8, Plt Count 229, MPV 10.3, Immature Gran % (Auto) 1.100 H, Neut % (Auto) 92.5 H, Lymph % (Auto) 2.9 L , Rains % (Auto) 3.4, Eos % (Auto) 0.0, Baso % (Auto) 0.1, Absolute Neuts (auto) 7.0, Absolute Lymphs (auto) 0.22 L, Nucleated RBC % 0, Sodium 146 H, Potassium 3.8, Chloride 112 H, Carbon Dioxide 28.0, Anion Gap 5, BUN 39 H, Creatinine 1.52 H, Estim Creat Clear Calc 49.25, Est GFR (MDRD) Af Amer 57 L, Est GFR (MDRD) Non-Af 47 L, BUN/Creatinine Ratio 25.7 H, Glucose 174 H, Calcium 9.6 Micro: Microbiology 07/19/24 22:18 Blood Culture (Wb) - Anticubital Left Blood Culture - Final No growth in 5 days. 07/19/24 22:14 Blood Culture (Wb) - Anticubital Right Blood Culture - Final No growth in 5 days. 07/19/24 23:49 Urine, Random Urine Culture - Final GNR Poss Pseudomonas sp Presumptive C albicans 07/20/24 06:14 Urine Catheter - Lane Legionella Antigen - Final 07/20/24 06:14 Urine Catheter - Lane Streptococcus pneumoniae Antigen (M - Final 07/19/24 23:52 Mucosa - Nose SARS-CoV-2, Influenza & RSV (PCR) - Final Physical Exam Const alert Constitutional Narrative: obese Orientation / Consciousness: lethargic HEENT normocephalic, head/scalp atraumatic and moist oral mucous membranes Eyes PERRL and EOMs intact bilaterally Neck no lymphadenopathy and supple Resp Resp Narrative: diminished breath sounds bibasally, no wheezes or crackles. On 2L of oxygen by nasal canula Cardio regular rate, regular rhythm, S1 normal heart sound, S2 normal heart sound and no murmurs GI normal to inspection, nondistended, normoactive bowel sounds, soft to palpation, non-tender and non-distended Extremity General Extremity: no tenderness to palpation of joints or extremities Neuro CN's II-XII intact bilaterally, no focal motor deficits and no sensory deficits noted Neuro Narrative: alert, flat affect, not very communicative. Motor Exam: general weakness Assessment & Plan Assessment/Plan (1) Septic shock: (2) Sepsis with encephalopathy and septic shock: QUALIFIERS: Sepsis type: sepsis due to unspecified organism Q ualified Code(s): A41.9 - Sepsis, unspecified organism; R65.21 - Severe sepsis with septic shock; G93.41 - Metabolic encephalopathy (3) Hypernatremia: PLAN: Plan #Septic shock due to pneumonia * Now off pressors. Shock has resolved. On 2 L of oxygen. On IV vancomycin and meropenem * Sputum cultures and blood cultures pending. Titrate oxygen to maintain saturation above 90%. #Acute hypoxic respiratory failure: Due to pneumonia as above. Currently on 2 L of oxygen. Titrate to maintain saturation above 90%. #MARLON: * Creatinine was 3.48 on admission and creatinine is now down to 1.52. Improving. Will monitor. Continue gentle hydration with IV fluids. #Hypernatremia: Sodium is 146. Will give D5 water and trend. #Acute metabolic encephalopathy: * Likely due to septic shock. * neurology did review patient during this admission and felt his symptoms wre likely due to toxic metabolic encephalopathy * EEG showed severe slowing. #Type 2 diabetes mellitus: On Lantus 35 units twice daily. Insulin sliding scale. ACT checks ACHS. #Hyperlipidemia: On statin DVT prophylaxis: lovenox Charges/Coding Visit Charges Inpatient E&M: 18652 Subs Hosp L2
--- NOTE | 2024-07-25 14:52 | CHAPLAIN ---
Type of Pastoral Visit ___ Initial Visit _x__ Follow-up Visit ___ On-call Visit ___ General Patient Visit ___ Spiritual Assessment ___ Family Conference ___ Bereavement ___ Rapid Response ___ Code Blue ___ Other (describe below) Pastoral Care Referral From ___ Patient _x__ Family ___ Nurse ___ Physician ___ Damper Worker ___ Support Team Member ___ Other (describe below) Sacrament/Intervention ___ Active listening ___ Anointing ___ Shinto ___ Bereavement ___ Communion ___ Marcella exploration ___ ___ Life review _x__ Prayer ___ Reconciliation ___ Sacrament of Sick _x__ Supportive presence ___ Wedding ___ Other (describe below) Pastoral Comments saw that this patient is awake in his room and thus offered this follow up visit; pt looks at this horseback riding instructor and responds with eyes and face to the voice; however patient does not appropriately answer any questions; pt mumbles words and yet is unable to articulate any real thoughts; pt calls out for a woman Gissel several times during the conversation as he looks around the bed to see her; there is no other person in the room; pt is reminded where he is and what is being done for him in special care; pt is unable to return conversation about any of the topics brought up or asked by this horseback riding instructor; pt is identified previously by a daughter that he is Latter-Day/Mandaen and would accept a prayer and thus a prayer is given today; aides are called to assist patient with his positioning and updated needs
[2024-07-25 15:05] LABS: Bedside Glucose 153 mg/dL (74-106)
[2024-07-25] MEDS: Insulin Lispro 100 UNIT/ML INSULN.PEN SC (16:51)
[2024-07-25] MEDS: Acetaminophen 325 MG Tablet 650 MG PO (16:55)
[2024-07-25 17:22] LABS: Bedside Glucose 168 mg/dL (74-106)
[2024-07-25 23:02] LABS: Bedside Glucose 161 mg/dL (74-106)
[2024-07-26] VITALS (12 sets, daily range): BP systolic 108–127; BP diastolic 80–98; PULSE 75–110; RESP 18–20; TEMP 36.3–36.6; O2SAT 94–98
[2024-07-26] MEDS: Insulin Lispro 100 UNIT/ML INSULN.PEN SC ×3 (00:08→17:38)
[2024-07-26 00:29] LABS: Bedside Glucose 163 mg/dL (74-106)
[2024-07-26] MEDS: Ipratropium/Albuterol Sulfate 3 ML AMPUL.NEB INHALATION ×4 (01:35→19:36)
--- NOTE | 2024-07-26 03:09 | EKG12_ITS ---
Test Reason : RHYTHM CHG Blood Pressure : */* mmHG Vent. Rate : 100 BPM Atrial Rate : * BPM P-R Int : * ms QRS Dur : 150 ms QT Int : 420 ms P-R-T Axes : * 270 -1 degrees QTcB Int : 541 ms Atrial fibrillation Right bundle branch block Inferior infarct , age undetermined Anterolateral infarct (cited on or before 14-Nov-2017) Abnormal ECG When compared with ECG of 19-Jul-2024 22:38, Previous ECG has undetermined rhythm, needs review Right bundle branch block is now Present Inferior infarct is now Present Questionable change in initial forces of Anterolateral leads Confirmed by SUMMER RAZO, KARISSA ([id number]), editor department PAUL BLUM ([id number]) on 07/26/2024 8:56:51 AM Referred By: Confirmed By: KARISSA WHEELER MD
[2024-07-26 06:21] LABS: Absolute Neutrophil Count 8.2 X10^3/uL (2.0-7.7); Basophil# 0.01 X10^3/uL; Basophil% 0.1 % (0-1); Hematocrit 40.3 % (40-54); Hemoglobin 12.5 g/dL (13.0-16.5); Lymphocyte % 2.3 % (19-41); Mean Corpuscular Hgb 27.5 pg (27.0-32.0); Mean Corpuscular Volume 88.8 fL (80-94); Mean Platelet Vol. 10.6 fl (6.2-12.0); Monocyte# 0.21 X10^3/uL; Monocyte% 2.4 % (0-10); NRBC Flagged by Analyzer 0 % (0-5); Neutrophil # 8.15 X10^3/uL (2.7-7.7); Neutrophil % 94.4 % (47-70); POSITIVE DIFFERENTIAL YES; Platelet Count 242 K/mm3 (150-450); RBC Distribution Width CV 14.1 % (11.6-14.6); RBC Distribution Width SD 45.3 fl (35.1-43.9); Red Blood Count 4.54 M/mm3 (4.6-6.2); White Blood Count 8.6 K/mm3 (4.4-11.0)
[2024-07-26 06:28] LABS: Bedside Glucose 188 mg/dL (74-106)
[2024-07-26 06:43] LABS: Vancomycin, Trough Level 23.8 ug/mL (5.0-15.0)
[2024-07-26 06:45] LABS: Anion Gap 7 (5-15); BUN 40 mg/dL (7-18); BUN/Creat Ratio 28.2 RATIO (10-20); Calcium,Total 9.3 mg/dL (8.5-10.1); Chloride 114 mmol/L (98-107); Creatinine, Serum 1.42 mg/dL (0.70-1.30); EST Glomerular Filtration Rate 51 mL/min (>60); Est Glom Filt Rate - Afr Amer 61 mL/min (>60); Estimated Creatinine Clearance 52.72 ml/min; Glucose 184 mg/dL (74-106); Sodium Level 146 mmol/L (136-145)
--- NOTE | 2024-07-26 09:06 | CASEMGMT ---
Updates sent to [facility] with request to submit for precert. Tierney Raphael DC Planning Asst.
[2024-07-26] MEDS: Meropenem 500 MG in 0.9% Normal Saline (50mL MB+) 50 ML 100 MG IV ×2 (09:57→22:35)
[2024-07-26] MEDS: Insulin Glargine-YFGN 100 UNIT/ML Pen 35 UNIT SC ×2 (10:00→22:40)
[2024-07-26] MEDS: Enoxaparin 40 MG/0.4 ML Syringe SC (10:00)
[2024-07-26] MEDS: Pantoprazole Sodium 40 MG in 0.9% Normal Saline (100mL MB+) 100 ML 330 MG IV (10:18)
--- NOTE | 2024-07-26 10:32 | PCM.RX.CS ---
Consult Antibiotic Management Pharmacy has been consulted to manage selected antibiotic: Vancomycin Type of Intervention Type of Consult: Follow-up Suspected Infection Suspected Infection: Sepsis Labs Labs: Sodium 146 mmol/L (136-145) H 07/26/24 05:26 Potassium 3.0 mmol/L (3.5-5.1) L 07/26/24 05:26 Chloride 114 mmol/L (98-107) H 07/26/24 05:26 Carbon Dioxide 25.0 mmol/L (21.0-32.0) 07/26/24 05:26 Anion Gap 7 (5-15) 07/26/24 05:26 BUN 40 mg/dL (7-18) H 07/26/24 05:26 Creatinine 1.42 mg/dL (0.70-1.30) H 07/26/24 05:26 Est GFR (MDRD) Af Amer 61 mL/min (>60) 07/26/24 05:26 Est GFR (MDRD) Non-Af 51 mL/min (>60) L 07/26/24 05:26 BUN/Creatinine Ratio 28.2 RATIO (10-20) H 07/26/24 05:26 Glucose 184 mg/dL (74-106) H 07/26/24 05:26 Vancomycin Trough 23.8 ug/mL (5.0-15.0) H 07/26/24 05:26 Random Vancomycin 11.3 ug/mL (0.0-15.0) 07/22/24 03:45 Microbiology Microbiology: Microbiology 07/19/24 22:18 Blood Culture (Wb) - Anticubital Left Blood Culture - Final No growth in 5 days. 07/19/24 22:14 Blood Culture (Wb) - Anticubital Right Blood Culture - Final No growth in 5 days. 07/19/24 23:49 Urine, Random Urine Culture - Final GNR Poss Pseudomonas sp Presumptive C albicans 07/20/24 06:14 Urine Catheter - Lane Legionella Antigen - Final 07/20/24 06:14 Urine Catheter - Lane Streptococcus pneumoniae Antigen (M - Final 07/19/24 23:52 Mucosa - Nose SARS-CoV-2, Influenza & RSV (PCR) - Final Dosing Weight Weight used for dosin.6 kg Goal Trough Goal Trough: 15-20 mcg/mL Pharmacy Plan for Drug Dosing Pharmacy Plan for Drug Dosing: VANCOMYCIN LEVEL RECEIVED Current Vancomycin Dose: 1250 MG Q24H Number of Doses Received: 2 Vancomycin Level: 23.8 Hours Since Last Dose: 23.75 Renal Function: SCr 1.42 , CrCl 52.72 Renal Function Trend: Stable Lab/Micro: Vancomycin Plan/Comments: Level came back outside for therapeutic range at 23.8 (15-20). Will be holding the dose for today. Ordering a random level for tomorrow 0530.Pharmacy Service will continue to monitor and adjust dosing as required. Pending Level: Random 07/27/2024 0530 Follow-Up Labs Follow-Up Labs: Trough: Vancomycin Date/Time Labs Ordered Labs to be done on [date and time ordered]: 07/27/2024 5652
[2024-07-26] MEDS: Potassium Chloride 10mEq/100mL 10 MEQ/100 ML IV.SOLN. 100 MEQ IV BOLUS ×4 (10:49→14:09)
--- NOTE | 2024-07-26 10:55 | CASEMGMT ---
Patient has been on bipap while at [facility]. SW sent bipap settings to [facility] via [employer]. Lilly DAWKINS
[2024-07-26] MEDS: MethylPREDNISolone 125 MG/2 ML Vial 60 MG IV ×2 (11:06→22:35)
[2024-07-26] MEDS: 0.9% Saline Lock 10 ML Syringe IV ×2 (11:06→22:43)
--- NOTE | 2024-07-26 11:09 | CASEMGMT ---
[facility] has obtained auth to admit. Tierney Raphael DC Planning Asst.
[2024-07-26 12:10] LABS: Bedside Glucose 145 mg/dL (74-106)
--- NOTE | 2024-07-26 12:11 | CASEMGMT ---
[facility] misunderstood and insurance has not approved patient yet. They were asking if patient will be discharged on IV antibiotics. let [facility] patient will not be d/c'd on IV antibiotics. Lilly DAWKINS
--- NOTE | 2024-07-26 13:39 | WOUNDNOTE ---
wound photo: sacrum
--- NOTE | 2024-07-26 14:14 | PN_ITS ---
Subjective Subjective Patient seen and examined. Patient still quite lethargic and still not really answering questions. He did seem more short of breath today and had more for labored breathing with audible coarse crackles. Unable to do review of systems. Objective Data Objective Data Vital Signs: Vital Signs Temp Pulse Resp BP Pulse Ox O2 Del Method O2 Flow Rate 97.9 F 98 20 H 127/98 H 95 Nasal Cannula 2 07/26/24 10:08 07/26/24 13:00 07/26/24 13:00 07/26/24 10:08 07/26/24 10:12 07/26/24 10:12 07/26/24 11:50 FiO2 30 07/25/24 03:36 Oxygen Flow Rate (L/min) 2 Oxygen Delivery Method Nasal Cannula Weight: 264 lb 8.875 oz Body Mass Index (BMI) 35.8 Intake & Output: Intake and Output for Last 24 Hours 07/24/24 07/25/24 07/26/24 23:59 23:59 23:59 Intake Total 2467.5 / 2467.5 2526.25 / 2526.25 470 / 470 Output Total 3700 / 3700 1725 / 1725 1500 / 1500 Balance -1232.5 / -1232.5 801.25 / 801.25 -1030 / -1030 Lab / Micro Data 07/26/24 05:26 07/26/24 05:26 Labs: Laboratory Results - last 24 hr 07/25/24 14:21: POC Glucose 153 H 07/25/24 16:43: POC Glucose 168 H 07/25/24 22:30: POC Glucose 161 H 07/26/24 00:05: POC Glucose 163 H 07/26/24 05:26: WBC 8.6, RBC 4.54 L, Hgb 12.5 L, Hct 40.3, MCV 88.8, MCH 27.5, M CHC 31.0 L, RDW Std Deviation 45.3 H, RDW Coeff of Hilary 14.1, Plt Count 242, MPV 10.6, Immature Gran % (Auto) 0.800, Neut % (Auto) 94.4 H, Lymph % (Auto) 2.3 L, [place] % (Auto) 2.4, Eos % (Auto) 0.0, Baso % (Auto) 0.1, Absolute Neuts (auto) 8.2 H, Absolute Lymphs (auto) 0.20 L, Nucleated RBC % 0, Sodium 146 H, Potassium 3.0 L, Chloride 114 H, Carbon Dioxide 25.0, Anion Gap 7, BUN 40 H, Creatinine 1.42 H, Estim Creat Clear Calc 52.72, Est GFR (MDRD) Af Amer 61, Est GFR (MDRD) Non-Af 51 L, BUN/Creatinine Ratio 28.2 H, Glucose 184 H, Calcium 9.3, Vancomycin Trough 23.8 H 07/26/24 06:05: POC Glucose 188 H 07/26/24 11:40: POC Glucose 145 H Micro: Microbiology 07/19/24 22:18 Blood Culture (Wb) - Anticubital Left Blood Culture - Final No growth in 5 days. 07/19/24 22:14 Blood Culture (Wb) - Anticubital Right Blood Culture - Final No growth in 5 days. 07/19/24 23:49 Urine, Random Urine Culture - Final GNR Poss Pseudomonas sp Presumptive C albicans 07/20/24 06:14 Urine Catheter - Lane Legionella Antigen - Final 07/20/24 06:14 Urine Catheter - Lane Streptococcus pneumoniae Antigen (M - Final 07/19/24 23:52 Mucosa - Nose SARS-CoV-2, Influenza & RSV (PCR) - Final Physical Exam Const Constitutional Narrative: lethargic, morbidly obese Orientation / Consciousness: confused and lethargic HEENT normocephalic, head/scalp atraumatic, hearing grossly normal bilaterally and moist oral mucous membranes Eyes PERRL, EOMs intact bilaterally and conjunctivae normal Neck no lymphadenopathy, supple, no JVD, thyroid normal and no carotid bruits General: trachea midline Resp no retractions and no use of accessory muscles Resp Narrative: diminished breath sounds bibasally, bilateral crackles, no wheezing crackles. On 2L of oxygen by nasal canula Cardio regular rate, regular rhythm, S1 normal heart sound, S2 normal heart sound and no murmurs GI normal to inspection, nondistended, normoactive bowel sounds, soft to palpation, non-tender and non-distended GI Narrative: Obese. Extremity normal to inspection, normal capillary refill and no clubbing, cyanosis or edema General Extremity: no tenderness to palpation of joints or extremities Skin Skin Narrative: ecchymotic General Skin Exam: no breakdown Neuro no sensory deficits noted Neuro Narrative: flat affect, not very communicative, lethargic Sensorium / Orientation: alert Motor Exam: general weakness Psych Psych Narrative: Lethargic Assessment & Plan Assessment/Plan (1) Septic shock: (2) Sepsis with encephalopathy and septic shock: QUALIFIERS: Sepsis type: sepsis due to unspecified organism Q ualified Code(s): A41.9 - Sepsis, unspecified organism; R65.21 - Severe sepsis with septic shock; G93.41 - Metabolic encephalopathy (3) Hypernatremia: PLAN: Plan #Septic shock due to pneumonia * Now off pressors. Shock has resolved. On 2 L of oxygen. On IV vancomycin and meropenem * Sputum cultures and blood cultures pending. * Blood cultures negative. COVID, influenza and RSV screen was also negative.\ * Urine for strep and Legionella also negative. Titrate oxygen to maintain saturation above 90%. #Acute hypoxic respiratory failure: * Due to pneumonia as above. Currently on 2 L of oxygen. * Having some coarse crackles today. Titrate to maintain saturation above 90%. * May benefit from speech therapy evaluation. #MARLON: * Creatinine was 3.48 on admission and creatinine is now down to 1.42 today. Improving. Will monitor. #Asymptomatic Bacteriuria: * Urine cultures growing gram-negative rods possibly Pseudomonas. Also growing presumptive Poppy albicans. * Growth very small with Pseudomonas being less than thousand colony-forming units per mL and contact, has been 11,000 25,000 colony-forming units per mL. * hold off on antibiotics for now #Hypernatremia: Sodium is still 146. Will give D5 water and trend. #Hypokalemia: Potassium is 3. Will replace and trend. #Acute metabolic encephalopathy: * Likely due to septic shock. * neurology did review patient during this admission and felt his symptoms were likely due to toxic metabolic encephalopathy * EEG showed severe slowing. #Type 2 diabetes mellitus: On Lantus 35 units twice daily. Insulin sliding scale. ACT checks ACHS. #Hyperlipidemia: On statin DVT prophylaxis: lovenox Charges/Coding Visit Charges Inpatient E&M: 50386 Subs Hosp L2
[2024-07-26] MEDS: Dext 5%-0.45% NS 1,000 ML 75 ML IV (15:05)
--- NOTE | 2024-07-26 16:49 | CASEMGMT ---
Insurance Auth was rec'd by fax. Sent to [facility]. SW updated. Tierney Raphael DC Planning Asst.
[2024-07-26 17:56] LABS: Bedside Glucose 190 mg/dL (74-106)
[2024-07-26 23:00] LABS: Bedside Glucose 174 mg/dL (74-106)
[2024-07-27] VITALS (7 sets, daily range): BP systolic 117–134; BP diastolic 73–93; PULSE 82–88; RESP 16–85; TEMP 36.2–36.5; O2SAT 96–100; BMI 35.2
[2024-07-27 00:36] LABS: Bedside Glucose 140 mg/dL (74-106)
[2024-07-27] MEDS: Dext 5%-0.45% NS 1,000 ML 75 ML IV (04:34)
[2024-07-27 05:43] LABS: Absolute Lymphocyte Count 0.19 X10^3/uL (0.83-4.51); Absolute Neutrophil Count 10.2 X10^3/uL (2.0-7.7); Hematocrit 40.7 % (40-54); Hemoglobin 12.7 g/dL (13.0-16.5); Lymphocyte # 0.19 X10^3/ul (0.83-4.51); Lymphocyte % 1.8 % (19-41); Mean Corp Hgb Conc 31.2 g/dL (32-36); Mean Corpuscular Hgb 27.8 pg (27.0-32.0); Mean Corpuscular Volume 89.1 fL (80-94); Mean Platelet Vol. 10.5 fl (6.2-12.0); Monocyte# 0.32 X10^3/uL; NRBC Flagged by Analyzer 0 % (0-5); Neutrophil # 10.18 X10^3/uL (2.7-7.7); Neutrophil % 94.5 % (47-70); POSITIVE DIFFERENTIAL YES; Platelet Count 226 K/mm3 (150-450); RBC Distribution Width CV 14.5 % (11.6-14.6); Red Blood Count 4.57 M/mm3 (4.6-6.2); White Blood Count 10.8 K/mm3 (4.4-11.0)
[2024-07-27] MEDS: Insulin Lispro 100 UNIT/ML INSULN.PEN SC ×2 (06:02→12:36)
[2024-07-27 06:14] LABS: Anion Gap 6 (5-15); BUN 40 mg/dL (7-18); BUN/Creat Ratio 30.1 RATIO (10-20); Calcium,Total 9.1 mg/dL (8.5-10.1); Chloride 115 mmol/L (98-107); Creatinine, Serum 1.33 mg/dL (0.70-1.30); EST Glomerular Filtration Rate 55 mL/min (>60); Est Glom Filt Rate - Afr Amer 66 mL/min (>60); Estimated Creatinine Clearance 55.81 ml/min; Glucose 176 mg/dL (74-106); Potassium 3.5 mmol/L (3.5-5.1); Sodium Level 146 mmol/L (136-145)
[2024-07-27 06:15] LABS: Vancomycin, Random Level 16.6 ug/mL (0.0-15.0)
--- NOTE | 2024-07-27 06:20 | PCM.RX.CS ---
Consult Antibiotic Management Pharmacy has been consulted to manage selected antibiotic: Vancomycin Type of Intervention Type of Consult: Follow-up Suspected Infection Suspected Infection: Sepsis Labs Labs: Sodium 146 mmol/L (136-145) H 07/27/24 05:27 Potassium 3.5 mmol/L (3.5-5.1) 07/27/24 05:27 Chloride 115 mmol/L (98-107) H 07/27/24 05:27 Carbon Dioxide 25.0 mmol/L (21.0-32.0) 07/27/24 05:27 Anion Gap 6 (5-15) 07/27/24 05:27 BUN 40 mg/dL (7-18) H 07/27/24 05:27 Creatinine 1.33 mg/dL (0.70-1.30) H 07/27/24 05:27 Est GFR (MDRD) Af Amer 66 mL/min (>60) 07/27/24 05:27 Est GFR (MDRD) Non-Af 55 mL/min (>60) L 07/27/24 05:27 BUN/Creatinine Ratio 30.1 RATIO (10-20) H 07/27/24 05:27 Glucose 176 mg/dL (74-106) H 07/27/24 05:27 Vancomycin Trough 23.8 ug/mL (5.0-15.0) H 07/26/24 05:26 Random Vancomycin 16.6 ug/mL (0.0-15.0) H 07/27/24 05:27 Microbiology Microbiology: Microbiology 07/19/24 22:18 Blood Culture (Wb) - Anticubital Left Blood Culture - Final No growth in 5 days. 07/19/24 22:14 Blood Culture (Wb) - Anticubital Right Blood Culture - Final No growth in 5 days. 07/19/24 23:49 Urine, Random Urine Culture - Final GNR Poss Pseudomonas sp Presumptive C albicans 07/20/24 06:14 Urine Catheter - Lane Legionella Antigen - Final 07/20/24 06:14 Urine Catheter - Lane Streptococcus pneumoniae Antigen (M - Final 07/19/24 23:52 Mucosa - Nose SARS-CoV-2, Influenza & RSV (PCR) - Final Dosing Weight Weight used for dosin kg Estimated Creatinine Clearance Estimated Creatinine Clearance: 56 Goal Trough Goal Trough: 15-20 mcg/mL Pharmacy Plan for Drug Dosing Pharmacy Plan for Drug Dosing: Random vancomycin level came down below 20mcg/ml at 16.6. Will re-start dosing at 1000mg q24h, for a calculator-estimated trough of 19.1. A trough level will be drawn prior to the third dose of the new regimen. Pharmacy Service will continue to monitor and adjust dosing as required. Follow-Up Labs Follow-Up Labs: Trough: Vancomycin Date/Time Labs Ordered Labs to be done on [date and time ordered]: 07/29/24 @0600
[2024-07-27] MEDS: Vancomycin IV 1,000 MG/200 ML BAG 200 MG IV (06:40)
[2024-07-27 06:54] LABS: Bedside Glucose 159 mg/dL (74-106)
[2024-07-27] MEDS: Ipratropium/Albuterol Sulfate 3 ML AMPUL.NEB INHALATION ×2 (06:57→13:07)
[2024-07-27] MEDS: Meropenem 500 MG in 0.9% Normal Saline (50mL MB+) 50 ML 100 MG IV (10:33)
[2024-07-27] MEDS: 0.9% Saline Lock 10 ML Syringe IV (10:36)
[2024-07-27] MEDS: MethylPREDNISolone 125 MG/2 ML Vial 60 MG IV (10:38)
[2024-07-27] MEDS: Enoxaparin 40 MG/0.4 ML Syringe SC (10:39)
[2024-07-27] MEDS: Insulin Glargine-YFGN 100 UNIT/ML Pen 35 UNIT SC (10:48)
[2024-07-27 11:13] LABS: Bedside Glucose 147 mg/dL (74-106)
[2024-07-27] MEDS: Dextrose 5%-Water (1000mL Bag) 1,000 ML 125 ML IV (11:23)
[2024-07-27] MEDS: Pantoprazole Sodium 40 MG in 0.9% Normal Saline (100mL MB+) 100 ML 330 MG IV (11:24)
--- NOTE | 2024-07-27 11:33 | PN_ITS ---
Subjective Subjective Patient seen and examined. He still remains lethargic though he could wake up and just mumble in response to questions. Unable to do comprehensive review of systems due to his lethargy. Objective Data Objective Data Vital Signs: Vital Signs Temp Pulse Resp BP Pulse Ox O2 Del Method O2 Flow Rate 97.3 F L 82 16 132/93 H 99 Nasal Cannula 2 07/27/24 10:16 07/27/24 10:16 07/27/24 10:16 07/27/24 10:16 07/27/24 10:16 07/27/24 10:16 07/27/24 10:16 FiO2 30 07/25/24 03:36 Oxygen Flow Rate (L/min) 2 Oxygen Delivery Method Nasal Cannula Weight: 260 lb 2.327 oz Body Mass Index (BMI) 35.2 Intake & Output: Intake and Output for Last 24 Hours 07/25/24 07/26/24 07/27/24 23:59 23:59 23:59 Intake Total 2526.25 / 2526.25 1630 / 1630 1771.25 / 1771.25 Output Total 1725 / 1725 2550 / 2550 200 / 200 Balance 801.25 / 801.25 -920 / -920 1571.25 / 1571.25 Lab / Micro Data 07/27/24 05:27 07/27/24 05:27 Labs: Laboratory Results - last 24 hr 07/26/24 11:40: POC Glucose 145 H 07/26/24 17:37: POC Glucose 190 H 07/26/24 22:33: POC Glucose 174 H 07/27/24 00:17: POC Glucose 140 H 07/27/24 05:27: WBC 10.8, RBC 4.57 L, Hgb 12.7 L, Hct 40.7, MCV 89.1, MCH 27.8, MCHC 31.2 L, RDW Std Deviation 46.0 H, RDW Coeff of Hilary 14.5, Plt Count 226, MPV 10.5, Immature Gran % (Auto) 0.700, Neut % (Auto) 94.5 H, Lymph % (Auto) 1.8 L, [place] % (Auto) 3.0, Eos % (Auto) 0.0, Baso % (Auto) 0.0, Absolute Neuts (auto) 10.2 H, Absolute Lymphs (auto) 0.19 L, Nucleated RBC % 0, Sodium 146 H, Potassium 3.5, Chloride 115 H, Carbon Dioxide 25.0, Anion Gap 6, BUN 40 H, C reatinine 1.33 H, Estim Creat Clear Calc 55.81, Est GFR (MDRD) Af Amer 66, Est GFR (MDRD) Non-Af 55 L, BUN/Creatinine Ratio 30.1 H, Glucose 176 H, Calcium 9.1, Random Vancomycin 16.6 H 07/27/24 06:01: POC Glucose 159 H 07/27/24 10:46: POC Glucose 147 H Micro: Microbiology 07/19/24 22:18 Blood Culture (Wb) - Anticubital Left Blood Culture - Final No growth in 5 days. 07/19/24 22:14 Blood Culture (Wb) - Anticubital Right Blood Culture - Final No growth in 5 days. 07/19/24 23:49 Urine, Random Urine Culture - Final GNR Poss Pseudomonas sp Presumptive C albicans 07/20/24 06:14 Urine Catheter - Lane Legionella Antigen - Final 07/20/24 06:14 Urine Catheter - Lane Streptococcus pneumoniae Antigen (M - Final 07/19/24 23:52 Mucosa - Nose SARS-CoV-2, Influenza & RSV (PCR) - Final Physical Exam Const Constitutional Narrative: lethargic, morbidly obese Orientation / Consciousness: confused and lethargic HEENT normocephalic, head/scalp atraumatic, hearing grossly normal bilaterally and moist oral mucous membranes Eyes PERRL, EOMs intact bilaterally and conjunctivae normal Neck no lymphadenopathy, supple, no JVD, thyroid normal and no carotid bruits General: trachea midline Resp normal respiratory effort, no retractions and no use of accessory muscles Resp Narrative: diminished breath sounds bibasally, bilateral crackles, no wheezing crackles. On 2L of oxygen by nasal canula Auscultation: Negative for rales, rhonchi or wheezes Cardio regular rate, regular rhythm, S1 normal heart sound, S2 normal heart sound, no murmurs, no rub and no gallops GI normal to inspection, nondistended, normoactive bowel sounds, soft to palpation, non-tender and non-distended GI Narrative: Obese. Extremity normal to inspection, normal capillary refill and no clubbing, cyanosis or edema General Extremity: no tenderness to palpation of joints or extremities Skin Skin Narrative: ecchymotic areas over buttocks and upper extremities General Skin Exam: no breakdown Neuro no focal motor deficits Neuro Narrative: flat affect, not very communicative, lethargic Motor Exam: general weakness Psych Psych Narrative: Lethargic Assessment & Plan Assessment/Plan (1) Septic shock: (2) Sepsis with encephalopathy and septic shock: QUALIFIERS: Sepsis type: sepsis due to unspecified organism Q ualified Code(s): A41.9 - Sepsis, unspecified organism; R65.21 - Severe sepsis with septic shock; G93.41 - Metabolic encephalopathy (3) Hypernatremia: PLAN: Plan #Septic shock due to pneumonia * Now off pressors. Shock has resolved. Remains on 2 L of oxygen. On IV vancomycin and meropenem * Sputum cultures and blood cultures pending. * Blood cultures negative. COVID, influenza and RSV screen was also negative.\ * Urine for strep and Legionella also negative. Titrate oxygen to maintain saturation above 90%. #Acute hypoxic respiratory failure: * Due to pneumonia as above. * Remains on 2L of oxygen * May benefit from speech therapy evaluation. #MARLON: * resolving. Cr is 1.33 today. Will continue monitoring. * #Asymptomatic Bacteriuria: * Urine cultures growing gram-negative rods possibly Pseudomonas. Also growing presumptive Poppy albicans. * Growth very small with Pseudomonas being less than thousand colony-forming units per mL and contact, has been 11,000 25,000 colony-forming units per mL. * hold off on antibiotics for now #Hypokalemia: resolved. K is 3.5 today #Acute metabolic encephalopathy: * Likely due to septic shock. * neurology did review patient during this admission and felt his symptoms were likely due to toxic metabolic encephalopathy * EEG showed severe slowing. #Type 2 diabetes mellitus: On Lantus 35 units twice daily. Insulin sliding scale. ACT checks ACHS. #Hyperlipidemia: On statin DVT prophylaxis: lovenox Charges/Coding Visit Charges Inpatient E&M: 06034 Subs Hosp L2
[2024-07-27 13:05] LABS: Bedside Glucose 191 mg/dL (74-106)
--- NOTE | 2024-07-27 14:57 | CASEMGMT ---
Physician was asking about patient's baseline at the SNF. SW contacted [facility] via [employer] regarding this question. SW explained patient is pretty lethargic and not talking or doing much. 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 SW notified physician. Lilly DAWKINS
--- NOTE | 2024-07-27 15:19 | TREXTCAR_ITS ---
Diet Diet Order/Speech Therapy: 07/25/24 15:44 Diet: Carbohydrate Controlled Type of Dietary Supplement:: Alexus w/ Bkft & Dinner Diet Comments: TOTAL FEED, Liquid by tsp only, Meals only if fully alert Routine Orders/Code Status Enema Type: Fleetz Enema Frequency: Daily PRN Suppository Type: Dulcolax 10mg Suppository Frequency: Daily PRN DC O2, CPAP, BIPAP needs Home O2 Discharge instructions: No Wound(s) Coccyx: Wound Type: Pressure Injury right buttock/sacrum: Wound Type: Pressure Injury Dressing Change: new foam dressing applied right espinosa: Wound Type: Skin Tear Rt elbow: Wound Type: Skin Tear Therapies Weight Bearing: Weight bearing as tolerated Physical Therapy: Eval and Treat Occupational Therapy: Eval and Treat Speech Therapy: Eval and Treat Problem/Diagnosis (1) Septic shock: Status: Acute Code(s): A41.9 - Sepsis, unspecified organism; R65.21 - Severe sepsis with septic shock (2) Sepsis with encephalopathy and septic shock: Status: Acute Code(s): A41.9 - Sepsis, unspecified organism; R65.21 - Severe sepsis with septic shock; G93.41 - Metabolic encephalopathy (3) Hypernatremia: Status: Acute Code(s): E87.0 - Hyperosmolality and hypernatremia Plan #Septic shock due to pneumonia * Now off pressors. Shock has resolved. Remains on 2 L of oxygen. On IV vancomycin and meropenem * Sputum cultures and blood cultures pending. * Blood cultures negative. COVID, influenza and RSV screen was also negative.\ * Urine for strep and Legionella also negative. Titrate oxygen to maintain saturation above 90%. #Acute hypoxic respiratory failure: * Due to pneumonia as above. * Remains on 2L of oxygen * May benefit from speech therapy evaluation. #MARLON: * resolving. Cr is 1.33 today. Will continue monitoring. * #Asymptomatic Bacteriuria: * Urine cultures growing gram-negative rods possibly Pseudomonas. Also growing presumptive Poppy albicans. * Growth very small with Pseudomonas being less than thousand colony-forming units per mL and contact, has been 11,000 25,000 colony-forming units per mL. * hold off on antibiotics for now #Hypokalemia: resolved. K is 3.5 today #Acute metabolic encephalopathy: * Likely due to septic shock. * neurology did review patient during this admission and felt his symptoms were likely due to toxic metabolic encephalopathy * EEG showed severe slowing. #Type 2 diabetes mellitus: On Lantus 35 units twice daily. Insulin sliding scale. ACT checks ACHS. #Hyperlipidemia: On statin DVT prophylaxis: lovenox Allergies/Procedures Done in Hospital Allergies MARGIE Inhibitors Allergy (Unknown, Verified 07/19/24 21:31) edema cefepime Allergy (Verified 07/19/24 21:31) weakness and falling WEAKNESS & FALLING ipodate (Ipodate) Allergy (Verified 07/19/24 21:31) Shortness of breath levofloxacin (Levofloxacin) Allergy (Verified 07/19/24 21:31) Anaphylaxis lisinopril Allergy (Verified 07/19/24 21:31) Shortness of breath ofloxacin Allergy (Verified 07/19/24 21:31) Other Quinolones Allergy (Verified 07/19/24 21:31) Anaphylaxis Procedures: None Type of Care/Length of Stay Estimated LOS: Convalescent Care Less Than 30 days Type of Care Needed: Skilled Rehab Potential: Fair Prognosis: Fair Additional Orders/Day of Discharge Day of Discharge: 07/27/24 Dietary and Speech Recommendations Dietitian Recommendations/Changes: Adjust to consistent carbohydrate diet per [facility] consistency/texture recommendations. Will order alexus BID with breakfast and dinner to promote wound healing. Will reassess malnutrition when pt is more alert. Will monitor weight trends closely. Reviewed and approved by Antoinette Ramirez RD, LD. Discharge Plan Admission Admit Date/Time: 07/20/24 04:40 Primary Reason for Your Visit: septic shock, pneumonia Attending Provider: Jaja Nielsno Primary Care Provider: Papa Kimball Consulting Providers: Elver Harris; Areli Wright; Briseyda Philip; Dex Ochoa; Yanira Mcdonough; Lenora Andrade; Edmond Donohue; Bobby Harrison; Ra Kauffman; Fidel Malone; Elver Smiley; Jori Martinez; Farooq Peralta; April Ibarra; Antonio Tijerina; Jass Cramer; Thiago Newsome; Barbra Jiang; Dimas Fleming; Minh,Nohemi; Eric Uribe; Ronn Castillo; Abhinav Rosenthal; Ike Erwin; Leslie Mayes; Angie Garza; Meet Lozoya; Johnnie Collier; Santiaog Eaton; Daniel Auguste; Lianna Epps; Shara Sosa; Kraig Lauren; Paola López; Power Ray; Mina Burroughs; Jim Soriano; Ruth Burrows; Monikasnehal Galdamez; Max Ruiz; Radha Garibay; Gilbert Mcknight; Radha Up; Omar Villaseñor; Felicita Linares; Jesús Malloy; Calvin Escamilla; JESSICA TORRE; William Hernandez; Adamaris Falcon; Wili Caldera Instructions Patient Instructions: ED Pneumonia (Adult) Discharge Orders/Prescriptions Prescriptions: Continued tamsulosin 0.4 MG capsule 0.8 mg PO DAILY Patient Comments: URINATION isosorbide mononitrate 30 MG tablet 30 mg PO QHS atorvastatin 40 mg tablet 40 mg PO QHS fluticasone propionate 1 SPRAY spray,suspension 1 spray NASAL BID acetaminophen [Tylenol] 325 mg Tablet 650 mg PO Q6H PRN PRN (Reason: Pain Score 1-10/Temp > 100.7 F) Qty: 0 0RF Eliquis 2.5 mg tablet 2.5 mg PO BID Qty: 60 0RF Rx Instructions: Change the Eliquis 5 mg twice daily to 2.5 mg twice daily escitalopram oxalate 20 mg tablet 20 mg PO QHS insulin glargine 100 UNIT/ML insulin pen 45 unit subcut QHS Rx Instructions: Hold if glucose less than 130 mg/dl aspirin [Adult Aspirin Regimen] 81 mg tablet,delayed release (DR/EC) 81 mg PO DAILY furosemide 40 mg tablet 40 mg PO BID ipratropium-albuterol 0.5 mg-3 mg(2.5 mg base)/3 mL solution for nebulization 3 ml inhalation Q8H PRN (Reason: shortness of breath or wheezing) Patient Comments: [NO ORIGINAL SIG] amlodipine 2.5 mg tablet 2.5 mg PO DAILY carvedilol 3.125 mg tablet 3.125 mg PO BID losartan 25 mg tablet 25 mg PO DAILY gabapentin 100 mg capsule 100 mg PO TID insulin aspart U-100 [Novolog FlexPen U-100 Insulin] 100 unit/mL (3 mL) insulin pen See Protocol subcut TIDCM Protocol: 6. Sliding Scale Insulin Custom Condition: mg/dl range Dose/Route: Number of Units Condition: 71-150 Dose/Route: 0 Condition: 151-200 Dose/Route: 4 Condition: 201-250 Dose/Route: 6 Condition: 251-300 Dose/Route: 12 Condition: 301-350 Dose/Route: 16 Condition: 351-400 Dose/Route: 20 Protocol Text: Custom Sliding Scale cholestyramine-aspartame [Cholestyramine Light] 4 gram powder in packet 1 ea PO DAILY dapagliflozin propanediol [Farxiga] 10 mg tablet 10 mg PO LUNCH Acidophilus Tablet,Chewable 1 tab PO DAILY budesonide-formoterol [Breyna] 80-4.5 mcg/actuation HFA aerosol inhaler 2 inh inhalation BID melatonin 3 mg tablet 3 mg PO QHS multivitamin [Multiple Vitamins] Tablet 1 tab PO DAILY cholecalciferol (vitamin D3) [Vitamin D3] 125 mcg (5,000 unit) tablet 125 mcg PO DAILY ferrous sulfate 325 MG tablet 325 mg PO BID polyethylene glycol 3350 [Miralax] 17 gram/dose powder 17 g PO DAILY PRN (Reason: constipation) albuterol sulfate 1 INHALER inhaler 1 puff INHALATION Q6H PRN PRN (Reason: SOB or Wheezing) Discontinued clindamycin HCl 300 mg capsule 300 mg PO 3XD Referrals / Follow Up: Papa Kimball DO [Primary Care Provider] - Within 1 Week Disposition Disposition (needs filled in before D/C Order can be placed): Residential Facility (2) Sepsis with encephalopathy and septic shock Qualifiers: Sepsis type: sepsis due to unspecified organism Qualified Code(s): A41.9 - Se psis, unspecified organism; R65.21 - Severe sepsis with septic shock; G93.41 - Metabolic encephalopathy
--- NOTE | 2024-07-27 15:22 | DS.PCM_ITS ---
Providers Date of Admission: 07/20/24 Date of Discharge: 07/27/24 Primary Care Physician: Dr. Papa Kimball, DO Consultations 07/20/24 04:18 Consult: Lozenge Maker / Pulmonary Medicine Routine Consulting Provider: Intensivists/Pulmonary Med Reason for Consult: PNA, UTI, Sepsis, MARLON; with CKD; stage IV and Acute Resp Failure on Airvo. 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 Comment: Reason for Consult:: Pressure injury to coccyx 07/21/24 15:06 Consult: Tele-Neurology Routine Consulting Provider: [facility] Reason for Consult: altered mental status EMERGENT Consult: No MD Notified: Yes Date Notified: 07/21/24 Time Notified: 15:07 Method of Notification: Answering Service Method of Consult:: Telemedicine Nursing Unit Staff Notify [facility] of Tele-Neurology Consult: Yes Reason For Visit: BILATERAL PNEUMONIA, SEPSIS, AECOPD, ACUTE HYPOXIC Diagnosis Discharge Diagnosis (1) Septic shock: Status: Acute Code(s): A41.9 - Sepsis, unspecified organism; R65.21 - Severe sepsis with septic shock (2) Sepsis with encephalopathy and septic shock: Status: Acute Code(s): A41.9 - Sepsis, unspecified organism; R65.21 - Severe sepsis with septic shock; G93.41 - Metabolic encephalopathy Qualifiers: Sepsis type: sepsis due to unspecified organism Qualified Code(s): A 41.9 - Sepsis, unspecified organism; R65.21 - Severe sepsis with septic shock; G93.41 - Metabolic encephalopathy (3) Hypernatremia: Status: Acute Code(s): E87.0 - Hyperosmolality and hypernatremia Plan #Septic shock due to pneumonia * Now off pressors. Shock has resolved. Remains on 2 L of oxygen. On IV vancomycin and meropenem * Sputum cultures and blood cultures pending. * Blood cultures negative. COVID, influenza and RSV screen was also negative.\ * Urine for strep and Legionella also negative. Titrate oxygen to maintain saturation above 90%. #Acute hypoxic respiratory failure: * Due to pneumonia as above. * Remains on 2L of oxygen * May benefit from speech therapy evaluation. #MARLON: * resolving. Cr is 1.33 today. Will continue monitoring. * #Asymptomatic Bacteriuria: * Urine cultures growing gram-negative rods possibly Pseudomonas. Also growing presumptive Poppy albicans. * Growth very small with Pseudomonas being less than thousand colony-forming units per mL and contact, has been 11,000 25,000 colony-forming units per mL. * hold off on antibiotics for now #Hypokalemia: resolved. K is 3.5 today #Acute metabolic encephalopathy: * Likely due to septic shock. * neurology did review patient during this admission and felt his symptoms were likely due to toxic metabolic encephalopathy * EEG showed severe slowing. #Type 2 diabetes mellitus: On Lantus 35 units twice daily. Insulin sliding scale. ACT checks ACHS. #Hyperlipidemia: On statin DVT prophylaxis: lovenox Medications at Discharge Home Medications tamsulosin 0.4 mg capsule 0.8 mg PO DAILY prostate 07/08/16 isosorbide mononitrate 30 mg tablet,extended release 24 hr 30 mg PO QHS heart 03/12/18 atorvastatin 40 mg tablet 40 mg PO QHS cholesterol 04/02/20 fluticasone propionate 50 mcg/actuation nasal spray,suspension 1 spray NASAL BID Sinus 04/11/20 acetaminophen 325 mg tablet (Tylenol) 650 mg (2 x 325 mg) PO Q6H PRN PRN Pain Score 1-10/Temp > 100.7 F #0 tabs 12/07/20 apixaban 2.5 mg tablet (Eliquis) 2.5 mg PO BID #60 tabs 12/07/20 escitalopram oxalate 20 mg tablet 20 mg PO QHS depression 04/03/24 insulin glargine 100 unit/mL (3 mL) subcutaneous pen 45 unit subcut QHS dm 04/03/24 amlodipine 2.5 mg tablet 2.5 mg PO DAILY HTN 07/20/24 aspirin 81 mg tablet,delayed release (Adult Aspirin Regimen) 81 mg PO DAILY 07/20/24 carvedilol 3.125 mg tablet 3.125 mg PO BID HTN 07/20/24 cholestyramine-aspartame 4 gram oral powder for susp in a packet (Cholestyramine Light) 1 ea PO DAILY cholesterol 07/20/24 dapagliflozin propanediol 10 mg tablet (Farxiga) 10 mg PO LUNCH diabetes 07/20/24 furosemide 40 mg tablet 40 mg PO BID edema 07/20/24 gabapentin 100 mg capsule 100 mg PO TID neuropathy 07/20/24 insulin aspart U-100 100 unit/mL (3 mL) subcutaneous pen (Novolog FlexPen U-100 Insulin aspart) See Protocol subcut TIDCM diabetes 07/20/24 ipratropium 0.5 mg-albuterol 3 mg (2.5 mg base)/3 mL nebulization soln 3 ml inhalation Q8H PRN shortness of breath or wheezing 07/20/24 losartan 25 mg tablet 25 mg PO DAILY HTN 07/20/24 Lactobacillus acidophilus (Acidophilus chewable tablet) 1 tab PO DAILY probiotic 07/22/24 albuterol sulfate 90 mcg/actuation aerosol inhaler 1 puff inhalation Q6H PRN PRN SOB or Wheezing 07/22/24 budesonide-formoterol HFA 80 mcg-4.5 mcg/actuation aerosol inhaler (Breyna) 2 inh inhalation BID SOB 07/22/24 cholecalciferol (vitamin D3) 125 mcg (5,000 unit) tablet (Vitamin D3) 125 mcg PO DAILY supplement 07/22/24 ferrous sulfate 325 mg (65 mg iron) tablet 325 mg PO BID supplement 07/22/24 melatonin 3 mg tablet 3 mg PO QHS sleep 07/22/24 multivitamin (Multiple Vitamins tablet) 1 tab PO DAILY health maintenance 07/22/24 polyethylene glycol 3350 17 gram/dose oral powder (Miralax) 17 g PO DAILY PRN constipation 07/22/24 Hospital Course Operations None Procedures None Summary of Care Provided Minutes Spent on Discharge: 45 Hospital Course: Patient is an 83-year-old male with past medical history as outlined was admitted to the ED on 07/20/2024 from his long term with complaint of altered mental status and hypoxia. History was mainly obtained from his daughter and the chart as well as medical staff as patient was not a reliable historian. He had been noted to be getting more short of breath and more confused than his long term. He had recently been diagnosed with pneumonia and started on cefpodoxime. Was concerned about possible aspiration so he was brought into the ED. There was no documented history of nausea or vomiting. In the ED CT of the chest showed evidence of diffuse bilateral pneumonia with centrilobular emphysematous changes and lipoma on the right lateral chest with a right thyroid gland nodule along with ascending aortic aneurysm measuring 4.5 cm. Urinalysis showed evidence of UTI. Patient was also hypotensive with systolic being in the 80s and not responding to IV fluids. There was therefore concern for septic shock due to pneumonia as well as UTI and was MARLON on CKD. Initial creatinine was 4.66. His baseline creatinine was around 1.8. CT of the brain showed nonhemorrhagic right temporal occipital infarction most likely acute but comparison to prior imaging showed that the stroke was chronic and he had had a recent CVA treated in [facility]. He was admitted and managed for septic shock due to bilateral pneumonia and UTI as well as acute hypoxic respiratory failure due to pneumonia and COPD exacerbation. He was placed on BiPAP and started on broad-spectrum antibiotics. He was initially admitted to the ICU and critical care was consulted. He was placed on broad-spectrum antibiotics. Patient had a prolonged and protracted hospital course. He was weaned off of vasopressors eventually. He was weaned down to 2 L of oxygen also. Blood cultures were negative and sputum cultures were also negative. Urine cultures grew gram-positive rods possibly Pseudomonas and presumptive Poppy albicans. Neurology was consulted on account of the acute encephalopathy. EEG done showed severe slowing but showed no evidence of seizures. Per neurology symptoms were likely due to the toxic metabolic encephalopathy. Patient had mild hyponatremia sodium was 146 at time of discharge. Patient eventually came down to his baseline. He still remained a bit lethargic but according to his family this was his baseline and he had improved. He was therefore discharged back to his care home facility on 07/27/2024. He is to follow up with his PCP within 1-2 weeks. Patient seen and examined prior to discharge. He was lethargic but arousable. He still remained weak. Review of systems was otherwise negative. Labs and vitals reviewed. Home meds reviewed and reconciled. TO have follow up BMPs in the SNF to monitor the sodium level was sodium on discharge was 146. Physical Exam Const Constitutional Narrative: lethargic, morbidly obese Orientation / Consciousness: confused and lethargic HEENT normocephalic, head/scalp atraumatic, hearing grossly normal bilaterally and moist oral mucous membranes Eyes PERRL, EOMs intact bilaterally and conjunctivae normal Neck no lymphadenopathy, supple, no JVD, thyroid normal and no carotid bruits General: trachea midline Resp Resp Narrative: diminished breath sounds bibasally, bilateral crackles, no wheezing crackles. On 2L of oxygen by nasal canula Auscultation: Negative for rales, rhonchi or wheezes Cardio regular rate, regular rhythm, S1 normal heart sound, S2 normal heart sound, no murmurs, no rub and no gallops GI normal to inspection, nondistended, normoactive bowel sounds, soft to palpation, non-tender and non-distended GI Narrative: Obese. Extremity normal to inspection, normal capillary refill and no clubbing, cyanosis or edema General Extremity: no tenderness to palpation of joints or extremities Skin no rashes or lesions noted Skin Narrative: ecchymotic areas over buttocks and upper extremities General Skin Exam: no breakdown Neuro Neuro Narrative: flat affect, not very communicative, Psych Psych Narrative: Lethargic Weight / BMI Weight Weight: 260 lb 2.327 oz Body Mass Index (BMI) 35.2 ABG / Lab / Microbiology Data 07/27/24 05:27 07/27/24 05:27 Laboratory: Laboratory Results - last 24 hr 07/27/24 18:10: POC Glucose 152 H Microbiology: Microbiology 07/19/24 22:18 Blood Culture (Wb) - Anticubital Left Blood Culture - Final No growth in 5 days. 07/19/24 22:14 Blood Culture (Wb) - Anticubital Right Blood Culture - Final No growth in 5 days. 07/19/24 23:49 Urine, Random Urine Culture - Final GNR Poss Pseudomonas sp Presumptive C albicans 07/20/24 06:14 Urine Catheter - Lane Legionella Antigen - Final 07/20/24 06:14 Urine Catheter - Lane Streptococcus pneumoniae Antigen (M - Final 07/19/24 23:52 Mucosa - Nose SARS-CoV-2, Influenza & RSV (PCR) - Final D/C Instructions Discharge Diet: Low fat / Low cholesterol Discharge Activity: Return to Normal Activity Weight Bearing Status: Weight bearing as tolerated Call your doctor if you observe: Fever of 101 or Higher, Shortness of breath, Dizziness, Swelling in the ankles and Chest pain DC O2, CPAP, BIPAP Needs PSN CPAP & BiPAP: BiPAP & CPAP Settings per PSN Mode BiPAP 07/25/24 03:36 Bipap Delivery Device Face Mask 07/25/24 03:36 BiPAP Inspiratory Pressure 15 07/25/24 03:36 BiPAP Expiratory Pressure 8 07/25/24 03:36 BiPAP Rate 14 07/25/24 03:36 Fraction of Inspired Oxygen ( 30 07/25/24 03:36 FIO2) Total Flow Rate 60 07/20/24 00:48 Home O2 Discharge instructions: No DC home with Oxygen: No Meaningful Use Info Meaningful Use Meaningful Use Diagnoses (Choose all that apply): None applicable Ischemic Stroke Statin Dosing Therapy Reference: STATIN DOSE THERAPY REFERENCE: * Patients > 75 years receive moderate or high dose statin therapy. * Patients 75 years or YOUNGER should receive HIGH intensity statin dose unless contraindicated. You will be required to document reason for non-treatment if statin daily dose does not meet guidelines. HIGH DOSE STATIN THERAPY DAILY Atorvastatin > than or = to 40 mg Rosuvastatin > than or = to 20 mg Amlodipine + Atorvastatin > than or = to 2.5/40 mg Ezetimibe + Simvastatin 10/80 mg Simvastatin 80mg Discharge Plan Admission Admit Date/Time: 07/20/24 04:40 Primary Reason for Your Visit: septic shock, pneumonia Attending Provider: Jaja Nielson Primary Care Provider: Papa Kimball Consulting Providers: Elver Harris; Areli Wright; Briseyda Philip; Dex Ochoa; Yanira Mcdonough; Lenora Andrade; Edmond Donohue; Bobby Harrison; Ra Kauffman; Fidel Malone; Elver Smiley; Jori Martinez; Farooq Peralta; April Ibarra; Antonio Tijerina; Jass Cramer; Thiago Newsome; Barbra Jiang; Dimas Fleming; Nohemi Wilkinson; Rony,Eric; Susana,Ronn; Galo,Abhinav; Rip,Ike; Leslie Mayes; Angie Garza; Meet Lozoya; Johnnie Collier; Santiago Eaton; Daniel Auguste; Lianna Epps; Shara Sosa; Kraig Lauren; Paola López; Power Ray; Mina Burroughs; Jim Soriano; Ruth Burrows; Monikasnehal Rudolph; Max Ruiz; Radha Garibay; Gilbert Mcknight; Radha Up; Omar Villaseñor; Felicita Linarse; Jesús Malloy; Calvin Escamilla; JESSICA TORRE; William Hernandez; Adamaris Falcon; Wili Caldera Instructions Patient Instructions: ED Pneumonia (Adult) Discharge Orders/Prescriptions Prescriptions: Continued tamsulosin 0.4 MG capsule 0.8 mg PO DAILY Patient Comments: URINATION isosorbide mononitrate 30 MG tablet 30 mg PO QHS atorvastatin 40 mg tablet 40 mg PO QHS fluticasone propionate 1 SPRAY spray,suspension 1 spray NASAL BID acetaminophen [Tylenol] 325 mg Tablet 650 mg PO Q6H PRN PRN (Reason: Pain Score 1-10/Temp > 100.7 F) Qty: 0 0RF Eliquis 2.5 mg tablet 2.5 mg PO BID Qty: 60 0RF Rx Instructions: Change the Eliquis 5 mg twice daily to 2.5 mg twice daily escitalopram oxalate 20 mg tablet 20 mg PO QHS insulin glargine 100 UNIT/ML insulin pen 45 unit subcut QHS Rx Instructions: Hold if glucose less than 130 mg/dl aspirin [Adult Aspirin Regimen] 81 mg tablet,delayed release (DR/EC) 81 mg PO DAILY furosemide 40 mg tablet 40 mg PO BID ipratropium-albuterol 0.5 mg-3 mg(2.5 mg base)/3 mL solution for nebulization 3 ml inhalation Q8H PRN (Reason: shortness of breath or wheezing) Patient Comments: [NO ORIGINAL SIG] amlodipine 2.5 mg tablet 2.5 mg PO DAILY carvedilol 3.125 mg tablet 3.125 mg PO BID losartan 25 mg tablet 25 mg PO DAILY gabapentin 100 mg capsule 100 mg PO TID insulin aspart U-100 [Novolog FlexPen U-100 Insulin] 100 unit/mL (3 mL) insulin pen See Protocol subcut TIDCM Protocol: 6. Sliding Scale Insulin Custom Condition: mg/dl range Dose/Route: Number of Units Condition: 71-150 Dose/Route: 0 Condition: 151-200 Dose/Route: 4 Condition: 201-250 Dose/Route: 6 Condition: 251-300 Dose/Route: 12 Condition: 301-350 Dose/Route: 16 Condition: 351-400 Dose/Route: 20 Protocol Text: Custom Sliding Scale cholestyramine-aspartame [Cholestyramine Light] 4 gram powder in packet 1 ea PO DAILY dapagliflozin propanediol [Farxiga] 10 mg tablet 10 mg PO LUNCH Acidophilus Tablet,Chewable 1 tab PO DAILY budesonide-formoterol [Breyna] 80-4.5 mcg/actuation HFA aerosol inhaler 2 inh inhalation BID melatonin 3 mg tablet 3 mg PO QHS multivitamin [Multiple Vitamins] Tablet 1 tab PO DAILY cholecalciferol (vitamin D3) [Vitamin D3] 125 mcg (5,000 unit) tablet 125 mcg PO DAILY ferrous sulfate 325 MG tablet 325 mg PO BID polyethylene glycol 3350 [Miralax] 17 gram/dose powder 17 g PO DAILY PRN (Reason: constipation) albuterol sulfate 1 INHALER inhaler 1 puff INHALATION Q6H PRN PRN (Reason: SOB or Wheezing) Discontinued clindamycin HCl 300 mg capsule 300 mg PO 3XD Referrals / Follow Up: Papa Kimball DO [Primary Care Provider] - Within 1 Week Disposition Disposition (needs filled in before D/C Order can be placed): Shelter Facility Charges/Coding Visit Charges Inpatient E&M: 93715 Disch Hosp >30min
--- NOTE | 2024-07-27 15:32 | CASEMGMT ---
Patient is ready for discharge back to [facility]. Plan: d/c back to [facility] under skilled level of care. Physicians will transport patient. Lilly DAWKINS
--- NOTE | 2024-07-27 15:55 | CASEMGMT ---
Discharge orders, signed med list, and transport time sent to [facility]. Physicians will transport patient by cot at 5:30p. Nursing, SW, pt, and his son (Frankie) updated. Tierney Raphael DC Planning Asst.
--- NOTE | 2024-07-27 16:51 | NURSING ---
Called in report to nurse Peters from [facility] at 16:51.
[2024-07-27 18:29] LABS: Bedside Glucose 152 mg/dL (74-106)
== END 2024-07-27 21:30 | disposition skilled nursing facility (03) | DRG 871 ==
LOC: ED 07-20 01:27 → ICU 07-20 05:30 → PCU 07-24 15:35
PROVIDERS: Internal Medicine; Internal Medicine Critical Care Medicine; Admitting Provider Internal Medicine; Emergency Provider Emergency Medicine; Visit Provider Student in an Organized Health Care Education/Training Program
DX: A41.9 Sepsis, unspecified organism (principal); J18.9 Pneumonia, unspecified organism; R65.21 Severe sepsis with septic shock; J96.01 Acute respiratory failure with hypoxia; G92.8 Other toxic encephalopathy; I63.9 Cerebral infarction, unspecified; G93.41 Metabolic encephalopathy; G93.1 Anoxic brain damage, not elsewhere classified; J44.0 Chronic obstructive pulmonary disease with (acute) lower respiratory infection; N18.4 Chronic kidney disease, stage 4 (severe); F01.54 Vascular dementia, unspecified severity, with anxiety; E87.0 Hyperosmolality and hypernatremia; N17.9 Acute kidney failure, unspecified; J44.1 Chronic obstructive pulmonary disease with (acute) exacerbation; F01.53 Vascular dementia, unspecified severity, with mood disturbance; E87.1 Hypo-osmolality and hyponatremia; I45.2 Bifascicular block; N39.0 Urinary tract infection, site not specified; E11.22 Type 2 diabetes mellitus with diabetic chronic kidney disease; D50.9 Iron deficiency anemia, unspecified; I71.21 Aneurysm of the ascending aorta, without rupture; E04.1 Nontoxic single thyroid nodule; I12.9 Hypertensive chronic kidney disease with stage 1 through stage 4 chronic kidney disease, or unspecified chronic kidney disease; E66.9 Obesity, unspecified; I48.0 Paroxysmal atrial fibrillation; E86.0 Dehydration; E11.40 Type 2 diabetes mellitus with diabetic neuropathy, unspecified; I25.10 Atherosclerotic heart disease of native coronary artery without angina pectoris; I95.9 Hypotension, unspecified; E78.5 Hyperlipidemia, unspecified; Z79.4 Long term (current) use of insulin; G47.33 Obstructive sleep apnea (adult) (pediatric); M19.90 Unspecified osteoarthritis, unspecified site; F41.8 Other specified anxiety disorders; E83.52 Hypercalcemia; E87.6 Hypokalemia; E11.65 Type 2 diabetes mellitus with hyperglycemia; Z66 Do not resuscitate; B96.5 Pseudomonas (aeruginosa) (mallei) (pseudomallei) as the cause of diseases classified elsewhere; B96.4 Proteus (mirabilis) (morganii) as the cause of diseases classified elsewhere; Z79.51 Long term (current) use of inhaled steroids; N20.0 Calculus of kidney; Z79.84 Long term (current) use of oral hypoglycemic drugs; Z68.36 Body mass index [BMI] 36.0-36.9, adult; R53.81 Other malaise; Z79.01 Long term (current) use of anticoagulants; Z86.73 Personal history of transient ischemic attack (TIA), and cerebral infarction without residual deficits; D17.1 Benign lipomatous neoplasm of skin and subcutaneous tissue of trunk; Z79.82 Long term (current) use of aspirin; R82.71 Bacteriuria; B37.9 Candidiasis, unspecified
CPT/HCPCS: 36415; 36600; 51702; 70450; 70551; 71045; 71250; 74176; 74230; 80048; 80053; 80061; 80202; 80307; 81001; 82077; 82140; 82607; 82746; 82803; 82962; 83036; 83605; 84443; 85025; 85610; 85730; 87040; 87086; 87088; 87449; 87631; 92526; 92610; 92611; 93005; 94002; 94003; 94640; 94660; 94762; 95819; 97162; 97166; 97530; 97535; 97802; 97803; 99285; J2020; J2185; A4216; C1751; J0696; J2405

== ENCOUNTER 2024-08-01 08:39 | Inpatient (IN) | payer MEDICARE, SELFPAY ==
[2024-08-01] VITALS (19 sets, daily range): BP systolic 73–114; BP diastolic 40–78; PULSE 59–80; RESP 14–24; TEMP 36.3–37.2; O2SAT 91–98; BMI 34.4; BMI 34.0
--- NOTE | 2024-08-01 08:47 | CT_ITS ---
PROCEDURE: BRAIN/HEAD WITHOUT CONTRAST REASON FOR EXAM: Altered level of consciousness. TECHNIQUE: Noncontrast CT of the head, with sagittal and coronal reconstructed images. COMPARISON: Head CT of 07/19/2024 FINDINGS: Stable appearance of what now appears to be a more chronic right temporoparietal infarction is noted. Stable generalized atrophy. Ventricles appear unchanged. No intracranial hemorrhage, mass, or mass effect is seen. No area acute process is seen. Paranasal sinuses and mastoid air cells appear clear. No orbital pathology is seen. CT/Brain/Head without Contrast IMPRESSION: 1. Stable examination, without acute intracranial process seen. 2. Chronic appearing right temporoparietal infarction. One or more dose reduction techniques were used (e.g., Automated exposure contr ol, adjustment of the mA and/or kV according to patient size, use of iterative reconstruction technique). Reading Location: [id number]
--- NOTE | 2024-08-01 08:48 | EKG12_ITS ---
Test Reason : SOB/UNRESP Blood Pressure : */* mmHG Vent. Rate : 75 BPM Atrial Rate : 75 BPM P-R Int : 258 ms QRS Dur : 144 ms QT Int : 450 ms P-R-T Axes : 54 254 1 degrees QTcB Int : 502 ms Sinus rhythm with sinus arrhythmia with 1st degree A-V block Right bundle branch block Septal infarct , age undetermined Lateral infarct , age undetermined Inferior infarct , age undetermined Abnormal ECG Confirmed by Burton Judd ([id number]), international editorial producer PAUL BLUM ([id number]) on 08/02/2024 10:05:01 AM Referred By: Ken Ortiz Confirmed By: Burton Judd
--- NOTE | 2024-08-01 08:50 | EX.ED.DYSGE1 ---
HPI History of Present Illness Chief Complaint: Unresponsive Informant: EMS Limited: stupor Narrative Narrative: 83-year-old male brought in from [facility] where he has been for the past 5 days since being discharged from this hospital, where he had MARLON, pneumonia, admitted to the ICU as DNR CCA no intubation. He was full code prior to that. Noted by [facility] to be unresponsive with pulse ox 80% this morning. They turned his nasal cannula up to the max which is 5 L, EMS states they only have concentrators, and this did not make a big difference so EMS was called. They put him on a nonrebreather. [facility] Medical History History of CVA (cerebrovascular accident) (03/2020) Right bundle branch block (RBBB) with left anterior fascicular block Atherosclerosis of coronary artery without angina pectoris Fracture of humeral head, left, closed Stage 3b chronic kidney disease GERD (gastroesophageal reflux disease) Neuropathic pain BPH (benign prostatic hyperplasia) Depression Stroke Debility Duodenal ulcer History of pulmonary embolism (07/30/19) Essential (primary) hypertension Hypotension MARLON (acute kidney injury) Acute blood loss anemia Super obesity Noncompliance Family history of colon cancer Colon polyps Chronic renal failure, stage 3 (moderate) NILO (obstructive sleep apnea) HLD (hyperlipidemia) History of other venous thrombosis and embolism History of depression Type II diabetes mellitus, uncontrolled COPD (chronic obstructive pulmonary disease) Home Medications ?Medication ?Instructions ?Recorded ?Last Taken ?Type tamsulosin 0.4 mg capsule 0.8 mg PO DAILY prostate 07/08/16 04/02/24 History isosorbide mononitrate 30 mg 30 mg PO QHS heart 03/12/18 04/03/24 History tablet,extended release 24 hr atorvastatin 40 mg tablet 40 mg PO QHS cholesterol 04/02/20 04/02/24 History fluticasone propionate 50 1 spray NASAL BID Sinus 04/11/20 04/01/24 History mcg/actuation nasal spray,suspension acetaminophen 325 mg tablet 650 mg (2 x 325 mg) PO Q6H PRN PRN 12/07/20 Unknown Rx (Tylenol) Pain Score 1-10/Temp > 100.7 F #0 tabs apixaban 2.5 mg tablet (Eliquis) 2.5 mg PO BID #60 tabs 12/07/20 04/03/24 Rx escitalopram oxalate 20 mg tablet 20 mg PO QHS depression 04/03/24 Unknown History insulin glargine 100 unit/mL (3 45 unit subcut QHS dm 04/03/24 04/02/24 History mL) subcutaneous pen amlodipine 2.5 mg tablet 2.5 mg PO DAILY HTN 07/20/24 Unknown History aspirin 81 mg tablet,delayed 81 mg PO DAILY 07/20/24 Unknown History release (Adult Aspirin Regimen) carvedilol 3.125 mg tablet 3.125 mg PO BID HTN 07/20/24 Unknown History cholestyramine-aspartame 4 gram 1 ea PO DAILY cholesterol 07/20/24 Unknown History oral powder for susp in a packet (Cholestyramine Light) dapagliflozin propanediol 10 mg 10 mg PO LUNCH diabetes 07/20/24 Unknown History tablet (Farxiga) furosemide 40 mg tablet 40 mg PO BID edema 07/20/24 Unknown History gabapentin 100 mg capsule 100 mg PO TID neuropathy 07/20/24 Unknown History insulin aspart U-100 100 unit/mL See Protocol subcut TIDCM diabetes 07/20/24 Unknown History (3 mL) subcutaneous pen (Novolog FlexPen U-100 Insulin aspart) ipratropium 0.5 mg-albuterol 3 mg 3 ml inhalation Q8H PRN shortness 07/20/24 Unknown History (2.5 mg base)/3 mL nebulization of breath or wheezing soln losartan 25 mg tablet 25 mg PO DAILY HTN 07/20/24 Unknown History Lactobacillus acidophilus 1 tab PO DAILY probiotic 07/22/24 Unknown History (Acidophilus chewable tablet) albuterol sulfate 90 mcg/actuation 1 puff inhalation Q6H PRN PRN SOB 07/22/24 Unknown History aerosol inhaler or Wheezing budesonide-formoterol HFA 80 2 inh inhalation BID SOB 07/22/24 Unknown History mcg-4.5 mcg/actuation aerosol inhaler (Breyna) cholecalciferol (vitamin D3) 125 125 mcg PO DAILY supplement 07/22/24 Unknown History mcg (5,000 unit) tablet (Vitamin D3) ferrous sulfate 325 mg (65 mg 325 mg PO BID supplement 07/22/24 Unknown History iron) tablet melatonin 3 mg tablet 3 mg PO QHS sleep 07/22/24 Unknown History multivitamin (Multiple Vitamins 1 tab PO DAILY health maintenance 07/22/24 Unknown History tablet) polyethylene glycol 3350 17 17 g PO DAILY PRN constipation 07/22/24 Unknown History gram/dose oral powder (Miralax) Allergy/AdvReac Type Severity Reaction Status Date / Time MARGIE Inhibitors Allergy Unknown edema Verified 08/01/24 08:51 cefepime Allergy weakness Verified 08/01/24 08:51 and falling ipodate (Ipodate) Allergy Shortness Verified 08/01/24 08:51 of breath levofloxacin (Levofloxacin) Allergy Anaphylaxis Verified 08/01/24 08:51 lisinopril Allergy Shortness Verified 08/01/24 08:51 of breath ofloxacin Allergy Other Verified 08/01/24 08:51 Quinolones Allergy Anaphylaxis Verified 08/01/24 08:51 Family History Father Colon cancer Mother Cancer Sister CAD (coronary artery disease) Surgical History History of left heart catheterization (07/11/19) History of loop recorder (03/2018) History of esophagogastroduodenoscopy (EGD) Social History Smoking Status: Unknown if ever smoked how long ago did patient quit smoking: cigars, smoked 2 a day, quit in 2007 ROS ROS ED Review of Systems ROS Unobtainable: due to mental status EXAM Physical Exam Const Vital Signs: 08/01/24 08:43 08/01/24 08:46 08/01/24 08:56 Temperature 98.1 F 98.1 F Temperature Source Axillary Axillary Pulse Rate 80 80 Respiratory Rate 21 H 21 H Respiratory Effort Respiratory Pattern Blood Pressure 112/73 113/62 Blood Pressure Mean 86 79 Pulse Ox 95 95 95 Oxygen Delivery Method Nasal Cannula Non-Rebreather Non-Rebreather Oxygen Flow Rate (L/min) 10 10 10 08/01/24 08:59 08/01/24 08:59 08/01/24 08:59 Temperature Temperature Source Pulse Rate 74 Respiratory Rate 16 Respiratory Effort Normal Respiratory Pattern Normal Blood Pressure Blood Pressure Mean Pulse Ox 92 Oxygen Delivery Method Nasal Cannula Oxygen Flow Rate (L/min) 6 08/01/24 09:45 08/01/24 10:15 08/01/24 10:45 Temperature 98.8 F 98.9 F Temperature Source Oral Pulse Rate 61 69 Respiratory Rate 24 H 18 Respiratory Effort Respiratory Pattern Blood Pressure 114/78 112/66 Blood Pressure Mean 90 81 Pulse Ox 94 92 91 Oxygen Delivery Method Room Air Nasal Cannula Oxygen Flow Rate (L/min) 6 Positive well nourished, well developed and obese Constitutional Narrative: Lethargic, tachypneic General Appearance ED: well developed Nutritional Appearance: obese HEENT Reports dry mucous membranes HEENT Narrative: Poor dentition normocephalic and atraumatic Mouth ED: Yes dry mucous membranes Mouth: dry mucous membranes Eyes PERRL and EOMs intact bilaterally Neck full ROM and supple Resp Resp Narrative: Tachypneic, no respiratory distress. Diminished breath sounds throughout, symmetrically, trachea midline. Limited ability to evaluate breath sounds further due to what sounds like lots of transmitted upper airway sounds. Cardio regular rate, regular rhythm and no murmurs GI non-tender and non-distended Auscultation: normoactive bowel sounds Palpation: soft; Negative for rebound tenderness present Extremity Extremity Narrative: Atraumatic extremities, no pain with passive range. No edema. Multiple areas of ecchymosis especially in upper extremities, presumably from blood draws. General Extremety ED: Negative for edema or tenderness General Extremity: Negative for edema Neuro CN's II-XII intact bilaterally and no sensory deficits noted Neuro Narrative: Limited ability to move left arm. Does not move feet. Performs right supervisor nuclear medicine on command. John Coma Scale: document GCS findings To Pain Obeys Commands Incomprehensible 10 Sensorium / Orientation: orientation impaired and lethargic Motor Exam: general weakness Skin no rashes or lesions noted and no wounds Skin Narrative: Scabbed nontender ulcerations on both lower legs, 1 on each. Symmetric dark discoloration of both lower legs distally, consistent with stasis. MDM MDM MDM Narrative Medical decision making narrative: Very limited history from this patient is very lethargic. We have him on 10 L facemask and he is at 94%. I do not think he needs to have ventilation assistance but we will obtain an ABG. His prior admission has a DNR order of DNR CCA no intubation. The [facility] documentation states full code. The nurses really did not know otherwise. There is no family to speak with at this time. I do not see the order from 07/20/2024 of DNR CCA no intubation documenting any specific discussions. At this time were going to start by given the patient a breathing treatment, he has a fullface ayers, and I do not think NIV will be helpful over that, nor do I think it is indicated right now, respiratory confirms saying that it did not work well when I tried it when he was admitted before. His recent brain MRI is consistent with a stroke that would affect his left side which is what I am seeing clinically more so than the right. I did send him for a new CT of the head, to rule out intracranial hemorrhage; on my interpretation it is negative for hemorrhage/acute findings. Chest x-ray shows what appears to be a new infiltrate in the right, on my interpretation. I reviewed the radiology interpretation. His viral swab is positive for influenza A today. It was nwgative 1-2 weeks ago, so this is probably acute. The pneumonia may or may not be specifically due to the influenza virus, but we will start him on Tamiflu given his morbidity. He is very prerenal and his creatinine is back up consistent with dehydration causing MARLON. His other blood counts and electrolytes look okay, he is not hyperkalemic. His BNP is very low even in context of acute on chronic renal failure, arguing against acute congestive heart failure; his echo from March of last year looked pretty good. His troponin is within normal limits right now. Without invasive ventilation, he is maintaining oxygenation, and his ABG is reassuring with regards to his ventilation showing a normal pH and compensated chronic CO2 retention. Plan is admission. Discussed with hospitalist, since no intubation, we will place in PCU. Respiratory gave him a breathing treatment and perform deep suction and was able to get a lot of sputum out. We are sending it for culture since there was not one done this past admission. History & Record Review Additional record(s) reviewed:: Prior inpatient record (Negative COVID/influenza/RSV 07/19; positive urine culture GNR possible Pseudomonas and C. albicans, negative blood cultures; bilateral diffuse pneumonia, cholelithiasis on prior CT) and Other (MRI brain 07/21/2024 consistent with right temporoparietal subacute/chronic infarction) Lab Data Attestation: I reviewed the patient's lab results. Labs: Laboratory Results - last 24 hr 08/01/24 08:30 WBC 7.6 RBC 4.04 L Hgb 11.6 L Hct 37.7 L MCV 93.3 MCH 28.7 MCHC 30.8 L RDW Std Deviation 53.3 H RDW Coeff of Hilary 15.7 H Plt Count 182 MPV 10.9 Immature Gran % (Auto) 0.900 Neut % (Auto) 88.7 H Lymph % (Auto) 3.2 L Piute % (Auto) 6.7 Eos % (Auto) 0.4 Baso % (Auto) 0.1 Absolute Neuts (auto) 6.7 Absolute Lymphs (auto) 0.24 L Nucleated RBC % 0 Sodium 152 H Potassium 4.1 Chloride 117 H Carbon Dioxide 29.0 Anion Gap 6 BUN 71 H Creatinine 2.94 H Estim Creat Clear Calc 24.97 Est GFR (MDRD) Af Amer 26 L Est GFR (MDRD) Non-Af 22 L BUN/Creatinine Ratio 24.1 H Glucose 104 Lactic Acid 1.4 Calcium 8.8 Troponin I High Sens 56 B-Natriuretic Peptide 58.8 ABG Data ABG results: ABG 08/01/24 09:57 Specimen Type ART Sample Site L Brach pH 7.39 Bicarbonate Actual 28.4 H Total CO2 30 Base Excess 4 H O2 Saturation 88 L O2 % 6.0 ABG pCO2 46.6 H ABG pO2 57 L Randy Test N/A O2 Delivery Device Cannula Vent Mode Not entered Radiography Diagnostic Testing: Clinical Impression(s) from Imaging Studies Brain CT 08/01/24 08:47 IMPRESSION: 1. Stable examination, without acute intracranial process seen. 2. Chronic appearing right temporoparietal infarction. One or more dose reduction techniques were used (e.g., Automated exposure control, adjustment of the mA and/or kV according to patient size, use of iterative reconstruction technique). Reading Location: [address] Chest X-Ray 08/01/24 09:25 IMPRESSION: Lungs are hypoinflated, with areas of bibasilar atelectasis, [id number]. The asymmetric increased airspace disease at the right mid to lower lung zone most probably represents atelectasis, but can not exclude the presence of pneumonitis. No evidence of pulmonary edema. No pleural effusion or pneumothorax is seen. The cardiomediastinal silhouette is stable, without evidence of cardiomegaly given the technique and degree of hypoinflation. Reading Location: [address] Rhythm Strip Rhythm Strip: Sinus Rhythm Rate: 75 Ectopy: PAC(s) EKG Initial EKG: Attestation: I personally reviewed and interpreted this EKG as follows: Interpretation: No Acute Injury Pattern, Sinus Arrythmia, RBBB and AV Block (1st deg) Prior EKG tracings: available for review Prior: Unchanged Management Discussion w/another healthcare provider: Hospitalist Discharge Plan Dx/Rx/DC Orders Clinical Impression: Influenza A with pneumonia, MARLON (acute kidney injury), Acute hypoxic respiratory failure, CKD (chronic kidney disease) stage 4, GFR 15-29 ml/min, Acute dehydration Disposition Disposition: Acute Care Hospital [facility]
[2024-08-01] MEDS: Ipratropium/Albuterol Sulfate 3 ML AMPUL.NEB INHALATION (08:57)
[2024-08-01 09:02] LABS: Absolute Lymphocyte Count 0.24 X10^3/uL (0.83-4.51); Absolute Neutrophil Count 6.7 X10^3/uL (2.0-7.7); Basophil# 0.01 X10^3/uL; Basophil% 0.1 % (0-1); Eosinophil# 0.03 X10^3/uL; Eosinophils% 0.4 % (0-5); Hematocrit 37.7 % (40-54); Hemoglobin 11.6 g/dL (13.0-16.5); Lymphocyte # 0.24 X10^3/ul (0.83-4.51); Lymphocyte % 3.2 % (19-41); Mean Corp Hgb Conc 30.8 g/dL (32-36); Mean Corpuscular Hgb 28.7 pg (27.0-32.0); Mean Corpuscular Volume 93.3 fL (80-94); Mean Platelet Vol. 10.9 fl (6.2-12.0); Monocyte# 0.51 X10^3/uL; Monocyte% 6.7 % (0-10); NRBC Flagged by Analyzer 0 % (0-5); Neutrophil # 6.72 X10^3/uL (2.7-7.7); Neutrophil % 88.7 % (47-70); POSITIVE DIFFERENTIAL YES; Platelet Count 182 K/mm3 (150-450); RBC Distribution Width CV 15.7 % (11.6-14.6); RBC Distribution Width SD 53.3 fl (35.1-43.9); Red Blood Count 4.04 M/mm3 (4.6-6.2); White Blood Count 7.6 K/mm3 (4.4-11.0)
--- NOTE | 2024-08-01 09:25 | RAD_ITS ---
PROCEDURE: CHEST 1 VIEW (PORTABLE) REASON FOR EXAM: Shortness of breath TECHNIQUE: AP portable upright chest. COMPARISON: Chest x-ray 07/20/2024. RAD/Chest 1 View (Portable) IMPRESSION: Lungs are hypoinflated, with areas of bibasilar atelectasis, [id number] -left. The asymmetric increased airspace disease at the right mid to lower lung zone m ost probably represents atelectasis, but can not exclude the presence of pneumonitis. No evidence of pulmonary edema. No pleural effusion or pneumothorax is seen. The cardiomediastinal silhouette is stable, without evidence of cardiomegaly gi hebert the technique and degree of hypoinflation. Reading Location: [id number]
[2024-08-01 09:29] LABS: Anion Gap 6 (5-15); BUN 71 mg/dL (7-18); BUN/Creat Ratio 24.1 RATIO (10-20); Calcium,Total 8.8 mg/dL (8.5-10.1); Chloride 117 mmol/L (98-107); Creatinine, Serum 2.94 mg/dL (0.70-1.30); EST Glomerular Filtration Rate 22 mL/min (>60); Est Glom Filt Rate - Afr Amer 26 mL/min (>60); Estimated Creatinine Clearance 24.97 ml/min; Glucose 104 mg/dL (74-106); Potassium 4.1 mmol/L (3.5-5.1); Sodium Level 152 mmol/L (136-145); Troponin-I HS 56 pg/mL (3.0-78.0)
[2024-08-01 09:32] LABS: Lactic Acid 1.4 mmol/L (0.4-1.9)
[2024-08-01 09:33] LABS: BNP,B-Type NATRIURETIC PEPTIDE 58.8 pg/mL (0-100)
[2024-08-01 10:02] LABS: Base Excess 4 mmol/L (-2 to +2); Bicarbonate 28.4 mmol/L (22-26); Blood Gas Specimen Type ART; Mode Not entered; O2 Delivery Device Cannula; PO2 57 mmHG (75-100); SITE L Brach; SO2 88 % (95-99); Total Carbon Dioxide 30 mmol/L; pCO2 46.6 mmHg (35-45); pH 7.39 (7.35-7.45)
[2024-08-01] MEDS: 0.9% Normal Saline (1000mL) 1,000 ML 999 ML IV (10:15)
--- NOTE | 2024-08-01 11:43 | ED.RN ---
Dorinda at [facility] given update that patient was admitted.
[2024-08-01] MEDS: Dextrose 5%-Water (1000mL Bag) 1,000 ML 60 ML IV (12:44)
--- NOTE | 2024-08-01 15:47 | CASEMGMT ---
Physician asked SW to make a referral to Hospice for patient. SW met with patient's son, daughter, and daughter in law. SW introduced self and role at [facility]. Family confirmed they would like hospice and they would like patient to go to the inpatient hospice unit. SW explained how the process works. They verbalized understanding. SW called Hospice with the referral and also faxed information. Lilly Monterroso [employer]
--- NOTE | 2024-08-01 18:41 | PCM.HP.STD ---
HPI - General General Date of Admission: 08/01/24 HPI Narrative WADE HERNANDEZ, is a 83 M who presents to the hospital unresponsive. He was found to be hypoxic at the long term and so was brought into the hospital. No history was available and he cannot provide any. He did test positive for flu a so a started on Tamiflu we do not know the duration of his symptoms other than increased oxygen requirements today. He was also given a dose of steroids. He was also found to be hyponatremic with worsening in his renal function though not quite an MARLON as his baseline appears to be around 2.3. He was started on D5 W in the ER secondary to his sodium after being given a fluid bolus because his pressures were little bit soft. No signs of bacterial infection, he has changes in his right lung base which is consistent with his episodic aspiration over the last couple of months. [facility] Medical History History of CVA (cerebrovascular accident) (03/2020) Right bundle branch block (RBBB) with left anterior fascicular block Atherosclerosis of coronary artery without angina pectoris Fracture of humeral head, left, closed Stage 3b chronic kidney disease GERD (gastroesophageal reflux disease) Neuropathic pain BPH (benign prostatic hyperplasia) Depression Stroke Debility Duodenal ulcer History of pulmonary embolism (07/30/19) Essential (primary) hypertension Hypotension MARLON (acute kidney injury) Acute blood loss anemia Super obesity Noncompliance Family history of colon cancer Colon polyps Chronic renal failure, stage 3 (moderate) NILO (obstructive sleep apnea) HLD (hyperlipidemia) History of other venous thrombosis and embolism History of depression Type II diabetes mellitus, uncontrolled COPD (chronic obstructive pulmonary disease) Home Medications ?Medication ?Instructions ?Recorded ?Last Taken ?Type tamsulosin 0.4 mg capsule 0.8 mg PO DAILY prostate 07/08/16 04/02/24 History isosorbide mononitrate 30 mg 30 mg PO QHS heart 03/12/18 04/03/24 History tablet,extended release 24 hr atorvastatin 40 mg tablet 40 mg PO QHS cholesterol 04/02/20 04/02/24 History fluticasone propionate 50 1 spray NASAL BID Sinus 04/11/20 04/01/24 History mcg/actuation nasal spray,suspension acetaminophen 325 mg tablet 650 mg (2 x 325 mg) PO Q6H PRN PRN 12/07/20 Unknown Rx (Tylenol) Pain Score 1-10/Temp > 100.7 F #0 tabs apixaban 2.5 mg tablet (Eliquis) 2.5 mg PO BID #60 tabs 12/07/20 04/03/24 Rx escitalopram oxalate 20 mg tablet 20 mg PO QHS depression 04/03/24 Unknown History insulin glargine 100 unit/mL (3 45 unit subcut QHS dm 04/03/24 04/02/24 History mL) subcutaneous pen amlodipine 2.5 mg tablet 2.5 mg PO DAILY HTN 07/20/24 Unknown History aspirin 81 mg tablet,delayed 81 mg PO DAILY 07/20/24 Unknown History release (Adult Aspirin Regimen) carvedilol 3.125 mg tablet 3.125 mg PO BID HTN 07/20/24 Unknown History cholestyramine-aspartame 4 gram 1 ea PO DAILY cholesterol 07/20/24 Unknown History oral powder for susp in a packet (Cholestyramine Light) dapagliflozin propanediol 10 mg 10 mg PO LUNCH diabetes 07/20/24 Unknown History tablet (Farxiga) furosemide 40 mg tablet 40 mg PO BID edema 07/20/24 Unknown History gabapentin 100 mg capsule 100 mg PO TID neuropathy 07/20/24 Unknown History insulin aspart U-100 100 unit/mL See Protocol subcut TIDCM diabetes 07/20/24 Unknown History (3 mL) subcutaneous pen (Novolog FlexPen U-100 Insulin aspart) ipratropium 0.5 mg-albuterol 3 mg 3 ml inhalation Q8H PRN shortness 07/20/24 Unknown History (2.5 mg base)/3 mL nebulization of breath or wheezing soln losartan 25 mg tablet 25 mg PO DAILY HTN 07/20/24 Unknown History Lactobacillus acidophilus 1 tab PO DAILY probiotic 07/22/24 Unknown History (Acidophilus chewable tablet) albuterol sulfate 90 mcg/actuation 1 puff inhalation Q6H PRN PRN SOB 07/22/24 Unknown History aerosol inhaler or Wheezing budesonide-formoterol HFA 80 2 inh inhalation BID SOB 07/22/24 Unknown History mcg-4.5 mcg/actuation aerosol inhaler (Breyna) cholecalciferol (vitamin D3) 125 125 mcg PO DAILY supplement 07/22/24 Unknown History mcg (5,000 unit) tablet (Vitamin D3) ferrous sulfate 325 mg (65 mg 325 mg PO BID supplement 07/22/24 Unknown History iron) tablet melatonin 3 mg tablet 3 mg PO QHS sleep 07/22/24 Unknown History multivitamin (Multiple Vitamins 1 tab PO DAILY health maintenance 07/22/24 Unknown History tablet) polyethylene glycol 3350 17 17 g PO DAILY PRN constipation 07/22/24 Unknown History gram/dose oral powder (Miralax) Allergy/AdvReac Type Severity Reaction Status Date / Time MARGIE Inhibitors Allergy Unknown edema Verified 08/01/24 08:51 cefepime Allergy weakness Verified 08/01/24 08:51 and falling ipodate (Ipodate) Allergy Shortness Verified 08/01/24 08:51 of breath levofloxacin (Levofloxacin) Allergy Anaphylaxis Verified 08/01/24 08:51 lisinopril Allergy Shortness Verified 08/01/24 08:51 of breath ofloxacin Allergy Other Verified 08/01/24 08:51 Quinolones Allergy Anaphylaxis Verified 08/01/24 08:51 Family History Father Colon cancer Mother Cancer Sister CAD (coronary artery disease) Surgical History History of left heart catheterization (07/11/19) History of loop recorder (03/2018) History of esophagogastroduodenoscopy (EGD) Social History Smoking Status: Former smoker quit date: 06/22/07 how long ago did patient quit smoking: cigars, smoked 2 a day, quit in 2007 ROS Review of Systems ROS Unobtainable: due to mental status Vital Signs Vital Signs Vital Signs: 08/01/24 08:43 08/01/24 08:46 08/01/24 08:56 Temperature 98.1 F 98.1 F Temperature Source Axillary Axillary Pulse Rate 80 80 Respiratory Rate 21 H 21 H Respiratory Effort Respiratory Depth Respiratory Pattern Blood Pressure 112/73 113/62 Blood Pressure Mean 86 79 Blood Pressure Source Blood Pressure Position Blood Pressure Location Pulse Ox 95 95 95 Oxygen Delivery Method Nasal Cannula Non-Rebreather Non-Rebreather Oxygen Flow Rate (L/min) 10 10 10 08/01/24 08:59 08/01/24 08:59 08/01/24 08:59 Temperature Temperature Source Pulse Rate 74 Respiratory Rate 16 Respiratory Effort Normal Respiratory Depth Respiratory Pattern Normal Blood Pressure Blood Pressure Mean Blood Pressure Source Blood Pressure Position Blood Pressure Location Pulse Ox 92 Oxygen Delivery Method Nasal Cannula Oxygen Flow Rate (L/min) 6 08/01/24 09:45 08/01/24 10:15 08/01/24 10:45 Temperature 98.8 F 98.9 F Temperature Source Oral Pulse Rate 61 69 Respiratory Rate 24 H 18 Respiratory Effort Respiratory Depth Respiratory Pattern Blood Pressure 114/78 112/66 Blood Pressure Mean 90 81 Blood Pressure Source Blood Pressure Position Blood Pressure Location Pulse Ox 94 92 91 Oxygen Delivery Method Room Air Nasal Cannula Oxygen Flow Rate (L/min) 6 08/01/24 11:00 08/01/24 11:50 08/01/24 12:00 Temperature 98.9 F 97.6 F L 97.6 F L Temperature Source Temporal Oral Oral Pulse Rate 73 61 64 Respiratory Rate 17 16 16 Respiratory Effort Respiratory Depth Respiratory Pattern Blood Pressure 81/63 L 109/56 L 98/66 Blood Pressure Mean 69 73 76 Blood Pressure Source Monitor Blood Pressure Position Semi-Fowlers Blood Pressure Location Right Arm Pulse Ox 92 95 Oxygen Delivery Method Nasal Cannula Nasal Cannula High Flow Oxygen Flow Rate (L/min) 6 6 08/01/24 12:19 08/01/24 12:45 08/01/24 13:00 Temperature 97.6 F L Temperature Source Oral Pulse Rate 66 64 Respiratory Rate 15 14 Respiratory Effort Respiratory Depth Respiratory Pattern Blood Pressure 105/58 L 82/49 L Blood Pressure Mean 73 60 Blood Pressure Source Monitor Blood Pressure Position Semi-Fowlers Blood Pressure Location Right Arm Pulse Ox 93 92 95 Oxygen Delivery Method High Flow High Flow High Flow Oxygen Flow Rate (L/min) 6 6 6 08/01/24 13:00 08/01/24 13:06 08/01/24 13:16 Temperature Temperature Source Pulse Rate 59 L Respiratory Rate 15 Respiratory Effort Non-Labored Respiratory Depth Shallow Respiratory Pattern Normal Blood Pressure 82/49 L 89/40 L Blood Pressure Mean 60 56 Blood Pressure Source Monitor Monitor Blood Pressure Position Semi-Fowlers Semi-Fowlers Blood Pressure Location Right Arm Right Arm Pulse Ox 94 Oxygen Delivery Method High Flow High Flow Oxygen Flow Rate (L/min) 6 6 08/01/24 13:23 08/01/24 13:38 08/01/24 14:00 Temperature Temperature Source Pulse Rate 59 L 62 62 Respiratory Rate 14 14 16 Respiratory Effort Respiratory Depth Respiratory Pattern Blood Pressure 73/51 L 73/56 L 94/54 L Blood Pressure Mean 58 61 67 Blood Pressure Source Monitor Monitor Monitor Blood Pressure Position Semi-Fowlers Semi-Fowlers Semi-Fowlers Blood Pressure Location Right Arm Right Arm Right Arm Pulse Ox 96 98 98 Oxygen Delivery Method High Flow High Flow High Flow Oxygen Flow Rate (L/min) 6 6 6 08/01/24 15:00 08/01/24 16:00 Temperature Temperature Source Pulse Rate 59 L Respiratory Rate 14 Respiratory Effort Non-Labored Respiratory Depth Shallow Respiratory Pattern Normal Blood Pressure 83/47 L Blood Pressure Mean 59 Blood Pressure Source Monitor Blood Pressure Position Semi-Fowlers Blood Pressure Location Right Arm Pulse Ox 96 Oxygen Delivery Method High Flow High Flow Oxygen Flow Rate (L/min) 6 6 Weight Weight: 251 lb 6 oz Body Mass Index (BMI) 34.0 Physical Exam Narrative General: Lethargic HEENT: Atraumatic, PERRLA, Oral: Dry mucosa Neck: Supple, No JVD Lungs: Diminished, Normal air movement, No rhonchi, No wheeze, rales Cardiovascular: Regular rate, Regular Rhythm, Normal S1, Normal S2, No murmurs Abdomen: Soft, Non Tender, Non-Distended, No Hepato-splenomegaly Extremities: Edema, Capillary Refill Less than 3 Seconds Skin: Described sacral wound per family but not directly evaluated Musculoskeletal: No Tenderness to Palpation of Joints or Extremities Neurological: Does not comply with exam Psych/Mental Status: Lethargic and flat Results Lab / Micro Data 08/02/24 03:50 08/02/24 03:50 Labs: Laboratory Results - last 24 hr 08/01/24 08:30: WBC 7.6, RBC 4.04 L, Hgb 11.6 L, Hct 37.7 L, MCV 93.3, MCH 28.7, MCHC 30.8 L, RDW Std Deviation 53.3 H, RDW Coeff of Hilary 15.7 H, Plt Count 182, MPV 10.9, Immature Gran % (Auto) 0.900, Neut % (Auto) 88.7 H, Lymph % (Auto) 3.2 L, [place] % (Auto) 6.7, Eos % (Auto) 0.4, Baso % (Auto) 0.1, Absolute Neuts (auto) 6.7, Absolute Lymphs (auto) 0.24 L, Nucleated RBC % 0, Sodium 152 H, Potassium 4.1, Chloride 117 H, Carbon Dioxide 29.0, Anion Gap 6, BUN 71 H, Creatinine 2.94 H, Estim Creat Clear Calc 24.97, Est GFR (MDRD) Af Amer 26 L, Est GFR (MDRD) Non-Af 22 L, BUN/Creatinine Ratio 24.1 H, Glucose 104, Lactic Acid 1.4, Calcium 8.8, Troponin I High Sens 56, B-Natriuretic Peptide 58.8 Micro: Microbiology 08/01/24 08:30 Mucosa - Nose SARS-CoV-2, Influenza & RSV (PCR) - Final Influenzae A ABG Data ABG results: ABG 08/01/24 09:57 Specimen Type ART Sample Site L Brach pH 7.39 Bicarbonate Actual 28.4 H Total CO2 30 Base Excess 4 H O2 Saturation 88 L O2 % 6.0 ABG pCO2 46.6 H ABG pO2 57 L Randy Test N/A O2 Delivery Device Cannula Vent Mode Not entered Rhythm Strip Rhythm Strip: Sinus Rhythm Rate: 75 Ectopy: PAC(s) Imaging Radiology Impression Brain CT 08/01/24 08:47 IMPRESSION: 1. Stable examination, without acute intracranial process seen. 2. Chronic appearing right temporoparietal infarction. One or more dose reduction techniques were used (e.g., Automated exposure control, adjustment of the mA and/or kV according to patient size, use of iterative reconstruction technique). Reading Location: [address] Chest X-Ray 08/01/24 09:25 IMPRESSION: Lungs are hypoinflated, with areas of bibasilar atelectasis, [id number]. The asymmetric increased airspace disease at the right mid to lower lung zone most probably represents atelectasis, but can not exclude the presence of pneumonitis. No evidence of pulmonary edema. No pleural effusion or pneumothorax is seen. The cardiomediastinal silhouette is stable, without evidence of cardiomegaly given the technique and degree of hypoinflation. Reading Location: [address] Assessment & Plan Assessment/Plan (1) Acute dehydration: (2) Influenza A with pneumonia: PLAN: Plan 1. Influenza A with acute on chronic hypoxic respiratory failure in the setting of COPD with hypernatremia in the setting of possible aspiration pneumonitis vs pneumonia ? He is requiring 6 L nasal cannula today when he was discharged on 07/27/2024 he was requiring 2 L to maintain his oxygen saturations ? She does have an indication for repeated aspiration pneumonia versus pneumonitis ? Continue with Tamiflu renally dosed ? Continue with steroid due to his history of COPD ? I had a 25-minute advance care planning conversation with the family about hospice. They did elect to proceed with hospice. They detail that he has had significant decline in the last 6 months, he had a stroke back in March and since then has never been home, he is gone between different nursing homes in different hospitals each time having more significant decline in the last. He has lost about 85 pounds in the last 6 months most of it appears to be muscle loss. They recognize that he has no quality of life and that recovery was exceedingly unlikely. Because of this we will continue to treat the influenza and continue with steroids but will hold blood pressure medications as his blood pressure did become a little bit soft after admission and will provide him with D5W for his hypernatremia and will cover his blood sugars with insulin though it does appear that family is requesting that we do not check his blood sugars. ? Can continue with his home baseline inhalers 2. Essential HTN/HLD ? Given the softer pressures will hold his blood pressure medications. He had an echo back in March 2024 with normal EF and no diastolic dysfunction 3. Type 2 diabetes ? Will adjust his insulin secondary to his D5W drip for his hypernatremia ? Family would not like any further insulin testing 4. History of a CVA ?He has had continued and significant decline since his drug in March with an inability to eat and he has lost over 85 pounds DVT: Rivas 75 minutes was spent on direct patient care, including documentation as well as chart review and collaboration with colleagues Charges/Coding Multi Select Codes Visit Charges Visit Charges: 51884 Init Hosp L3 Hospitalists' Procedures Procedures: 89810 Advncd Care Plan 30 Min
[2024-08-01] MEDS: 0.9% Saline Lock 10 ML Syringe IV (20:52)
--- NOTE | 2024-08-02 00:10 | NURSING ---
this RN to take over care at this time.
[2024-08-02] MEDS: Dextrose 5%-Water (1000mL Bag) 1,000 ML 75 ML IV (02:55)
[2024-08-02 04:09] LABS: Absolute Lymphocyte Count 0.14 X10^3/uL (0.83-4.51); Absolute Neutrophil Count 6.3 X10^3/uL (2.0-7.7); Eosinophil# 0.01 X10^3/uL; Eosinophils% 0.2 % (0-5); Hematocrit 37.2 % (40-54); Hemoglobin 11.2 g/dL (13.0-16.5); Lymphocyte # 0.14 X10^3/ul (0.83-4.51); Lymphocyte % 2.1 % (19-41); Mean Corp Hgb Conc 30.1 g/dL (32-36); Mean Platelet Vol. 10.7 fl (6.2-12.0); Monocyte# 0.12 X10^3/uL; Monocyte% 1.8 % (0-10); NRBC Flagged by Analyzer 0 % (0-5); Neutrophil # 6.32 X10^3/uL (2.7-7.7); Neutrophil % 95.6 % (47-70); POSITIVE DIFFERENTIAL YES; Platelet Count 164 K/mm3 (150-450); RBC Distribution Width CV 15.5 % (11.6-14.6); RBC Distribution Width SD 52.7 fl (35.1-43.9); White Blood Count 6.6 K/mm3 (4.4-11.0)
[2024-08-02 05:06] LABS: Anion Gap 8 (5-15); BUN 78 mg/dL (7-18); Calcium,Total 8.5 mg/dL (8.5-10.1); Chloride 116 mmol/L (98-107); EST Glomerular Filtration Rate 21 mL/min (>60); Est Glom Filt Rate - Afr Amer 26 mL/min (>60); Estimated Creatinine Clearance 24.32 ml/min; Glucose 270 mg/dL (74-106); Potassium 4.1 mmol/L (3.5-5.1); Sodium Level 148 mmol/L (136-145)
[2024-08-02] MEDS: 0.9% Saline Lock 10 ML Syringe IV ×3 (06:47→13:27)
[2024-08-02] MEDS: Insulin Lispro 100 UNIT/ML INSULN.PEN SC (06:54)
[2024-08-02 07:23] LABS: Bedside Glucose 257 mg/dL (74-106)
[2024-08-02 07:40] VITALS: O2SAT 96
[2024-08-02 08:41] VITALS: BP 101/58; PULSE 70; RESP 18; TEMP 36.7; O2SAT 97
[2024-08-02] MEDS: Morphine 2 MG/ML Syringe IV (13:26)
--- NOTE | 2024-08-02 14:59 | CASEMGMT ---
Patient is going to the inpatient hospice unit. SW notified physician. Lilly Monterroso ACCOUNT ADJUSTER JUANCHO
--- NOTE | 2024-08-02 15:00 | CASEMGMT ---
[facility] updated that pt will admit to hospice IPU. Tierney Raphael DC Planning Asst.
--- NOTE | 2024-08-02 15:05 | DCINST_ITS ---
Discharge Instructions Diet Discharge Diet: No restrictions DC O2, CPAP, BIPAP needs Home O2 Discharge instructions: No Follow Up Care Test Results: Test results from this visit will be discussed in further detail at your follow- up appointment, if applicable. Discharge Plan Admission Admit Date/Time: 08/01/24 11:01 Attending Provider: Ken Ortiz Primary Care Provider: Papa Kimball Discharge Orders/Prescriptions Prescriptions: Continued tamsulosin 0.4 MG capsule 0.8 mg PO DAILY Patient Comments: URINATION isosorbide mononitrate 30 MG tablet 30 mg PO QHS atorvastatin 40 mg tablet 40 mg PO QHS fluticasone propionate 1 SPRAY spray,suspension 1 spray NASAL BID acetaminophen [Tylenol] 325 mg Tablet 650 mg PO Q6H PRN PRN (Reason: Pain Score 1-10/Temp > 100.7 F) Qty: 0 0RF Eliquis 2.5 mg tablet 2.5 mg PO BID Qty: 60 0RF Rx Instructions: Change the Eliquis 5 mg twice daily to 2.5 mg twice daily escitalopram oxalate 20 mg tablet 20 mg PO QHS insulin glargine 100 UNIT/ML insulin pen 45 unit subcut QHS Rx Instructions: Hold if glucose less than 130 mg/dl aspirin [Adult Aspirin Regimen] 81 mg tablet,delayed release (DR/EC) 81 mg PO DAILY furosemide 40 mg tablet 40 mg PO BID ipratropium-albuterol 0.5 mg-3 mg(2.5 mg base)/3 mL solution for nebulization 3 ml inhalation Q8H PRN (Reason: shortness of breath or wheezing) Patient Comments: [NO ORIGINAL SIG] amlodipine 2.5 mg tablet 2.5 mg PO DAILY carvedilol 3.125 mg tablet 3.125 mg PO BID losartan 25 mg tablet 25 mg PO DAILY gabapentin 100 mg capsule 100 mg PO TID insulin aspart U-100 [Novolog FlexPen U-100 Insulin] 100 unit/mL (3 mL) insulin pen See Protocol subcut TIDCM Protocol: 6. Sliding Scale Insulin Custom Condition: mg/dl range Dose/Route: Number of Units Condition: 71-150 Dose/Route: 0 Condition: 151-200 Dose/Route: 4 Condition: 201-250 Dose/Route: 6 Condition: 251-300 Dose/Route: 12 Condition: 301-350 Dose/Route: 16 Condition: 351-400 Dose/Route: 20 Protocol Text: Custom Sliding Scale cholestyramine-aspartame [Cholestyramine Light] 4 gram powder in packet 1 ea PO DAILY dapagliflozin propanediol [Farxiga] 10 mg tablet 10 mg PO LUNCH Acidophilus Tablet,Chewable 1 tab PO DAILY budesonide-formoterol [Breyna] 80-4.5 mcg/actuation HFA aerosol inhaler 2 inh inhalation BID melatonin 3 mg tablet 3 mg PO QHS multivitamin [Multiple Vitamins] Tablet 1 tab PO DAILY cholecalciferol (vitamin D3) [Vitamin D3] 125 mcg (5,000 unit) tablet 125 mcg PO DAILY ferrous sulfate 325 MG tablet 325 mg PO BID polyethylene glycol 3350 [Miralax] 17 gram/dose powder 17 g PO DAILY PRN (Reason: constipation) albuterol sulfate 1 INHALER inhaler 1 puff INHALATION Q6H PRN PRN (Reason: SOB or Wheezing) Referrals / Follow Up: Papa Kimball DO [Primary Care Provider] - Disposition Disposition (needs filled in before D/C Order can be placed): Hospice in Medical Facility
--- NOTE | 2024-08-02 15:14 | DS.PCM_ITS ---
Providers Date of Admission: 08/01/24 Primary Care Physician: Dr. Papa Kimball, DO Reason For Visit: FLU WITH METABOLIC ENCEPHALOPATHY Diagnosis Discharge Diagnosis (1) Acute dehydration: Status: Acute Code(s): E86.0 - Dehydration (2) Influenza A with pneumonia: Status: Acute Code(s): J09.X1 - Influenza due to identified novel influenza A virus with pneumonia Medications at Discharge Home Medications tamsulosin 0.4 mg capsule 0.8 mg PO DAILY prostate 07/08/16 isosorbide mononitrate 30 mg tablet,extended release 24 hr 30 mg PO QHS heart 03/12/18 atorvastatin 40 mg tablet 40 mg PO QHS cholesterol 04/02/20 fluticasone propionate 50 mcg/actuation nasal spray,suspension 1 spray NASAL BID Sinus 04/11/20 acetaminophen 325 mg tablet (Tylenol) 650 mg (2 x 325 mg) PO Q6H PRN PRN Pain Score 1-10/Temp > 100.7 F #0 tabs 12/07/20 apixaban 2.5 mg tablet (Eliquis) 2.5 mg PO BID #60 tabs 12/07/20 escitalopram oxalate 20 mg tablet 20 mg PO QHS depression 04/03/24 insulin glargine 100 unit/mL (3 mL) subcutaneous pen 45 unit subcut QHS dm 04/03/24 amlodipine 2.5 mg tablet 2.5 mg PO DAILY HTN 07/20/24 aspirin 81 mg tablet,delayed release (Adult Aspirin Regimen) 81 mg PO DAILY 07/20/24 carvedilol 3.125 mg tablet 3.125 mg PO BID HTN 07/20/24 cholestyramine-aspartame 4 gram oral powder for susp in a packet (Cholestyramine Light) 1 ea PO DAILY cholesterol 07/20/24 dapagliflozin propanediol 10 mg tablet (Farxiga) 10 mg PO LUNCH diabetes 07/20/24 furosemide 40 mg tablet 40 mg PO BID edema 07/20/24 gabapentin 100 mg capsule 100 mg PO TID neuropathy 07/20/24 insulin aspart U-100 100 unit/mL (3 mL) subcutaneous pen (Novolog FlexPen U-100 Insulin aspart) See Protocol subcut TIDCM diabetes 07/20/24 ipratropium 0.5 mg-albuterol 3 mg (2.5 mg base)/3 mL nebulization soln 3 ml inhalation Q8H PRN shortness of breath or wheezing 07/20/24 losartan 25 mg tablet 25 mg PO DAILY HTN 07/20/24 Lactobacillus acidophilus (Acidophilus chewable tablet) 1 tab PO DAILY probiotic 07/22/24 albuterol sulfate 90 mcg/actuation aerosol inhaler 1 puff inhalation Q6H PRN PRN SOB or Wheezing 07/22/24 budesonide-formoterol HFA 80 mcg-4.5 mcg/actuation aerosol inhaler (Breyna) 2 inh inhalation BID SOB 07/22/24 cholecalciferol (vitamin D3) 125 mcg (5,000 unit) tablet (Vitamin D3) 125 mcg PO DAILY supplement 07/22/24 ferrous sulfate 325 mg (65 mg iron) tablet 325 mg PO BID supplement 07/22/24 melatonin 3 mg tablet 3 mg PO QHS sleep 07/22/24 multivitamin (Multiple Vitamins tablet) 1 tab PO DAILY health maintenance 07/22/24 polyethylene glycol 3350 17 gram/dose oral powder (Miralax) 17 g PO DAILY PRN constipation 07/22/24 Hospital Course Operations None Procedures None Summary of Care Provided Minutes Spent on Discharge: 33 Hospital Course: Per HPI: WADE HERNANDEZ, is a 83 M who presents to the hospital unresponsive. He was found to be hypoxic at the care home and so was brought into the hospital. No history was available and he cannot provide any. He did test positive for flu a so a started on Tamiflu we do not know the duration of his symptoms other than increased oxygen requirements today. He was also given a dose of steroids. He was also found to be hyponatremic with worsening in his renal function though not quite an MARLON as his baseline appears to be around 2.3. He was started on D5 W in the ER secondary to his sodium after being given a fluid bolus because his pressures were little bit soft. No signs of bacterial infection, he has changes in his right lung base which is consistent with his episodic aspiration over the last couple of months. Hospital Course: 1. Influenza A with acute on chronic hypoxic respiratory failure in the setting of COPD with hyponatremia in the setting of possible aspiration pneumonitis versus pneumonia?83-year-old male presented from the nursing with increasing oxygen requirements. He has been lethargic and confused for quite a while now family states that this started back in March when he had a stroke and he has significantly declined since that time. 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 He did trial a PEG tube as well as a Dobbhoff tube immediately after his stroke which were unsuccessful, he had removed the Dobbhoff tube when he was encephalopathic and there is malfunctions with the feeding tube. I discussed at length with the family if they would like to proceed with another feeding tube as he is lost 85 pounds discussing the fact that there would be significant risks associated with it. They elected to forego a feeding tube at which point we started to discuss the role of hospice care. They elected to meet with hospice today and ultimately decided to go with the inpatient hospice unit on discharge today. He has had intermittent periods of being alert without being able to communicate and he did have some pain today requiring a dose of morphine. He was unable to take any of his oral medications including the Tamiflu. Will plan for discharge today to hospice. 2. Essential hypertension, hyperlipidemia, type 2 diabetes, history of CVA are all chronic medical conditions which complicate his care. His home medications can be continued at the discretion of hospice. Physical Exam Narrative General: Lethargic HEENT: Atraumatic, PERRLA, Oral: Dry mucosa Neck: Supple, No JVD Lungs: Diminished, Normal air movement, No rhonchi, No wheeze, rales Cardiovascular: Regular rate, Regular Rhythm, Normal S1, Normal S2, No murmurs Abdomen: Soft, Non Tender, Non-Distended, No Hepato-splenomegaly Extremities: Edema, Capillary Refill Less than 3 Seconds Skin: Described sacral wound per family but not directly evaluated Musculoskeletal: No Tenderness to Palpation of Joints or Extremities Neurological: Does not comply with exam Psych/Mental Status: Lethargic and flat Weight / BMI Weight Weight: 251 lb 6 oz Body Mass Index (BMI) 34.0 ABG / Lab / Microbiology Data 08/02/24 03:50 08/02/24 03:50 Laboratory: Laboratory Results - last 24 hr 08/02/24 03:50: WBC 6.6, RBC 4.00 L, Hgb 11.2 L, Hct 37.2 L, MCV 93.0, MCH 28.0, MCHC 30.1 L, RDW Std Deviation 52.7 H, RDW Coeff of Hilary 15.5 H, Plt Count 164, MPV 10.7, Immature Gran % (Auto) 0.300, Neut % (Auto) 95.6 H, Lymph % (Auto) 2.1 L, Cooke % (Auto) 1.8, Eos % (Auto) 0.2, Baso % (Auto) 0.0, Absolute Neuts (auto) 6.3, Absolute Lymphs (auto) 0.14 L, Nucleated RBC % 0, Sodium 148 H, Potassium 4.1, Chloride 116 H, Carbon Dioxide 24.0, Anion Gap 8, BUN 78 H, Creatinine 3.00 H, Estim Creat Clear Calc 24.32, Est GFR (MDRD) Af Amer 26 L, Est GFR (MDRD) Non-Af 21 L, BUN/Creatinine Ratio 26.0 H, Glucose 270 H, Calcium 8.5 08/02/24 06:45: POC Glucose 257 H Microbiology: Microbiology 08/01/24 10:13 Sputum, Induced/Lukens Respiratory Culture - Preliminary Presumptive C albicans 08/01/24 08:30 Mucosa - Nose SARS-CoV-2, Influenza & RSV (PCR) - Final Influenzae A D/C Instructions Discharge Diet: No restrictions DC O2, CPAP, BIPAP Needs Home O2 Discharge instructions: No Meaningful Use Info Meaningful Use Meaningful Use Diagnoses (Choose all that apply): None applicable Ischemic Stroke Statin Dosing Therapy Reference: STATIN DOSE THERAPY REFERENCE: * Patients > 75 years receive moderate or high dose statin therapy. * Patients 75 years or YOUNGER should receive HIGH intensity statin dose unless contraindicated. You will be required to document reason for non-treatment if statin daily dose does not meet guidelines. HIGH DOSE STATIN THERAPY DAILY Atorvastatin > than or = to 40 mg Rosuvastatin > than or = to 20 mg Amlodipine + Atorvastatin > than or = to 2.5/40 mg Ezetimibe + Simvastatin 10/80 mg Simvastatin 80mg Discharge Plan Admission Admit Date/Time: 08/01/24 11:01 Attending Provider: Ken Ortiz Primary Care Provider: Papa Kimball Discharge Orders/Prescriptions Prescriptions: Continued tamsulosin 0.4 MG capsule 0.8 mg PO DAILY Patient Comments: URINATION isosorbide mononitrate 30 MG tablet 30 mg PO QHS atorvastatin 40 mg tablet 40 mg PO QHS fluticasone propionate 1 SPRAY spray,suspension 1 spray NASAL BID acetaminophen [Tylenol] 325 mg Tablet 650 mg PO Q6H PRN PRN (Reason: Pain Score 1-10/Temp > 100.7 F) Qty: 0 0RF Eliquis 2.5 mg tablet 2.5 mg PO BID Qty: 60 0RF Rx Instructions: Change the Eliquis 5 mg twice daily to 2.5 mg twice daily escitalopram oxalate 20 mg tablet 20 mg PO QHS insulin glargine 100 UNIT/ML insulin pen 45 unit subcut QHS Rx Instructions: Hold if glucose less than 130 mg/dl aspirin [Adult Aspirin Regimen] 81 mg tablet,delayed release (DR/EC) 81 mg PO DAILY furosemide 40 mg tablet 40 mg PO BID ipratropium-albuterol 0.5 mg-3 mg(2.5 mg base)/3 mL solution for nebulization 3 ml inhalation Q8H PRN (Reason: shortness of breath or wheezing) Patient Comments: [NO ORIGINAL SIG] amlodipine 2.5 mg tablet 2.5 mg PO DAILY carvedilol 3.125 mg tablet 3.125 mg PO BID losartan 25 mg tablet 25 mg PO DAILY gabapentin 100 mg capsule 100 mg PO TID insulin aspart U-100 [Novolog FlexPen U-100 Insulin] 100 unit/mL (3 mL) insulin pen See Protocol subcut TIDCM Protocol: 6. Sliding Scale Insulin Custom Condition: mg/dl range Dose/Route: Number of Units Condition: 71-150 Dose/Route: 0 Condition: 151-200 Dose/Route: 4 Condition: 201-250 Dose/Route: 6 Condition: 251-300 Dose/Route: 12 Condition: 301-350 Dose/Route: 16 Condition: 351-400 Dose/Route: 20 Protocol Text: Custom Sliding Scale cholestyramine-aspartame [Cholestyramine Light] 4 gram powder in packet 1 ea PO DAILY dapagliflozin propanediol [Farxiga] 10 mg tablet 10 mg PO LUNCH Acidophilus Tablet,Chewable 1 tab PO DAILY budesonide-formoterol [Breyna] 80-4.5 mcg/actuation HFA aerosol inhaler 2 inh inhalation BID melatonin 3 mg tablet 3 mg PO QHS multivitamin [Multiple Vitamins] Tablet 1 tab PO DAILY cholecalciferol (vitamin D3) [Vitamin D3] 125 mcg (5,000 unit) tablet 125 mcg PO DAILY ferrous sulfate 325 MG tablet 325 mg PO BID polyethylene glycol 3350 [Miralax] 17 gram/dose powder 17 g PO DAILY PRN (Reason: constipation) albuterol sulfate 1 INHALER inhaler 1 puff INHALATION Q6H PRN PRN (Reason: SOB or Wheezing) Referrals / Follow Up: Papa Kimball DO [Primary Care Provider] - Disposition Disposition (needs filled in before D/C Order can be placed): Hospice in Medical Facility Charges/Coding Visit Charges Inpatient E&M: 53814 Disch Hosp >30min
--- NOTE | 2024-08-02 17:42 | NURSING ---
report called to [facility]ice [facility]
== END 2024-08-02 18:00 | disposition hospice, inpatient (51) | DRG 193 ==
LOC: ED 10:00 → PCU 11:14
PROVIDERS: Admitting Provider Family Medicine; Emergency Provider Emergency Medicine; Referring Provider Family Medicine; Visit Provider Family Medicine
DX: J10.00 Influenza due to other identified influenza virus with unspecified type of pneumonia (principal); J96.21 Acute and chronic respiratory failure with hypoxia; G93.41 Metabolic encephalopathy; N18.4 Chronic kidney disease, stage 4 (severe); J44.0 Chronic obstructive pulmonary disease with (acute) lower respiratory infection; L97.913 Non-pressure chronic ulcer of unspecified part of right lower leg with necrosis of muscle; E87.1 Hypo-osmolality and hyponatremia; E87.29 Other acidosis; L97.921 Non-pressure chronic ulcer of unspecified part of left lower leg limited to breakdown of skin; N17.9 Acute kidney failure, unspecified; Z66 Do not resuscitate; Z51.5 Encounter for palliative care; E11.40 Type 2 diabetes mellitus with diabetic neuropathy, unspecified; I12.9 Hypertensive chronic kidney disease with stage 1 through stage 4 chronic kidney disease, or unspecified chronic kidney disease; J69.0 Pneumonitis due to inhalation of food and vomit; E86.0 Dehydration; E11.22 Type 2 diabetes mellitus with diabetic chronic kidney disease; Z79.4 Long term (current) use of insulin; E78.5 Hyperlipidemia, unspecified; I25.10 Atherosclerotic heart disease of native coronary artery without angina pectoris; E11.65 Type 2 diabetes mellitus with hyperglycemia; E11.622 Type 2 diabetes mellitus with other skin ulcer; J18.9 Pneumonia, unspecified organism; Z87.891 Personal history of nicotine dependence; Z79.84 Long term (current) use of oral hypoglycemic drugs; Z79.82 Long term (current) use of aspirin; Z86.73 Personal history of transient ischemic attack (TIA), and cerebral infarction without residual deficits; Z79.01 Long term (current) use of anticoagulants; Z88.8 Allergy status to other drugs, medicaments and biological substances; Z88.1 Allergy status to other antibiotic agents
CPT/HCPCS: 31720; 36415; 36600; 70450; 71045; 80048; 82803; 82962; 83605; 83880; 84484; 85025; 87070; 87205; 87631; 93005; 94640; 94762; 99285; A4216